=== PATIENT | female | born 1945 | race Caucasian/White ===

== ENCOUNTER → 2016-10-20 | Outpatient (CLI) | payer MEDICARE, BC ==
--- NOTE | 2016-10-21 08:08 | MM ---
Reason for exam: screening (asymptomatic). Last mammogram was performed 1 year ago. History: Patient is postmenopausal and has history of endometrial cancer at age 42. Took estrogen for 19 years beginning at age 42. Physical Findings: A clinical breast exam by your physician is recommended on an annual basis and results should be correlated with mammographic findings. MG 3D Screening Mammo W/Cad Bilateral CC and MLO view(s) were taken. Prior study comparison: October 16, 2015, bilateral MG screening mammo w CAD. September 03, 2014, bilateral MG screening mammo w CAD. The breast tissue is almost entirely fat. No significant changes when compared with prior studies. ASSESSMENT: Benign, BI-RAD 2 RECOMMENDATION: Routine screening mammogram of both breasts in 1 year.
== END | disposition home or self-care (01) ==
LOC: RADMAMWWP 08:37
PROVIDERS: ATTEND Family Medicine
DX: Z12.31 Encounter for screening mammogram for malignant neoplasm of breast (principal)
CPT/HCPCS: 77063; G0202

== ENCOUNTER → 2016-10-20 | Outpatient (CLI) | payer MEDICARE, BC | END | disposition home or self-care (01) | LOC: LABWHC1 07:48 | PROVIDERS: ATTEND Internal Medicine | DX: E11.49 Type 2 diabetes mellitus with other diabetic neurological complication (principal) | CPT/HCPCS: 82043 ==

== ENCOUNTER → 2016-10-21 | Outpatient (CLI) | payer MEDICARE, BC ==
[2016-10-21 09:44] LABS: CH 25.4; HCT 36.6 % (34.0-46.0); HDW 2.76; Hypochromasia Marked; MCH 25.6 pg (25.0-35.0); MCHC 30.1 g/dL (31.0-37.0); Mean Platelet Volume 6.7; RDW 13.7 % (11.5-15.5)
[2016-10-21 09:45] LABS: Calcium 9.2 mg/dL (8.4-10.2); Potassium 4.3 mmol/L (3.5-5.1); Total Bilirubin 0.4 mg/dL (0.2-1.3); Total Protein 6.9 g/dL (6.3-8.2)
[2016-10-21 10:13] LABS: Hemoglobin A1C 8.1 % (4.2-6.1)
== END | disposition home or self-care (01) ==
LOC: LABWHC1 08:48
PROVIDERS: ATTEND Internal Medicine
DX: I10 Essential (primary) hypertension (principal); E11.49 Type 2 diabetes mellitus with other diabetic neurological complication
CPT/HCPCS: 36415; 80053; 80061; 83036; 84439; 84443; 85027

== ENCOUNTER → 2017-05-19 | Outpatient (CLI) | payer MEDICARE, BC | END | disposition home or self-care (01) | LOC: RADUSWWP 10:07 | PROVIDERS: ATTEND Family Medicine | DX: I73.9 Peripheral vascular disease, unspecified (principal) | CPT/HCPCS: 93923 ==

== ENCOUNTER → 2017-06-20 | Outpatient (CLI) | payer MEDICARE, BC ==
--- NOTE | 2017-06-20 15:24 | XR ---
EXAMINATION TYPE: XR finger LT DATE OF EXAM: 06/20/2017 COMPARISON: NONE HISTORY: Swelling and edema TECHNIQUE: Three views left fourth finger are submitted. FINDINGS: Marked narrowing of the PIP joint. No definite acute fracture. No erosive change. There is soft tissu e edema around the PIP joint. Narrowing of the MCP joints seen. IMPRESSION: 1. Soft tissue edema and marked narrowing of the PIP joint fourth digit. No erosive change or acute f racture. Correlate for arthropathy including inflammatory or infectious arthropathy
== END | disposition home or self-care (01) ==
LOC: RADXRMAIN 14:26
PROVIDERS: ATTEND Family Medicine
DX: M25.842 Other specified joint disorders, left hand (principal); M79.89 Other specified soft tissue disorders; R60.9 Edema, unspecified

== ENCOUNTER 2017-09-30 09:56 | Emergency (ER) | payer BC, MEDICARE ==
[2017-09-30] MEDS ORDERED: LORATADINE-PSEUDOEPH 5-120 MG 1 EACH TAB.ER.12H PO STA (10:49)
--- NOTE | 2017-09-30 11:28 | XR ---
EXAMINATION TYPE: XR chest 2V DATE OF EXAM: 09/30/2017 COMPARISON: Prior chest x-ray November 16, 2011 HISTORY: Congestion for one month per patient. Chest pain. TECHNIQUE: Frontal and lateral views of the chest are obtained. FINDINGS: Poor inspiration is seen on current study.There is no focal air space opacity, pleural effu darlene, or pneumothorax seen. The cardiac silhouette size is mildly enlarged currently. The osseous structures are intact. IMPRESSION: Poor inspiration and mild cardiomegaly without acute pulmonary process.
--- NOTE | 2017-09-30 11:41 | ED ---
General Adult HPI - General Chief complaint: Upper Respiratory Infection Stated complaint: Vomiting Time Seen by Provider: 09/30/17 10:17 Source: patient, family, RN notes reviewed, old records reviewed Mode of arrival: wheelchair Limitations: no limitations - History of Present Illness Initial comments: This is a 72-year-old female the ER for evaluation. Patient coming in for sinus congestion drainage and headache. Patient has no other medical history. States that she cannot breathe through her nose and is been this way for about 4 weeks. Patient denies cough or congestion no pain. Patient's no modifying factors for pain she has been on Augmentin and azithromycin for this infection with improvement but no resolution. Patient denies any other significant complaints patient denies shortness of breath or chest pain - Related Data Home Medications Medication Instructions Recorded Confirmed Aspirin 81 mg PO DAILY 07/18/14 09/30/17 Atenolol [Atenolol] 100 mg PO BID 07/18/14 09/30/17 Lisinopril/Hydrochlorothiazide 1.5 tab PO BID 07/18/14 09/30/17 [Lisinopril-Hctz 20-12.5 mg Tab] Simvastatin [Zocor] 20 mg PO HS 07/18/14 09/30/17 glipiZIDE [Glipizide] 10 mg PO BID 07/18/14 09/30/17 Carbidopa-Levodopa 25-100 mg 1 tab PO TID 09/30/17 09/30/17 [Sinemet 25-100] Furosemide [Lasix] 20 mg PO DAILY PRN 09/30/17 09/30/17 Insulin Glargine,Hum.rec.anlog 14 unit SQ BID 09/30/17 09/30/17 [Lantus Solostar] Olmesartan [Benicar] 20 mg PO DAILY 09/30/17 09/30/17 Oxybutynin Chloride 5 mg PO DAILY PRN 09/30/17 09/30/17 Potassium Chloride [Klor-Con M15] 15 meq PO TID 09/30/17 09/30/17 metFORMIN HCL [Glucophage] 850 mg PO BID 09/30/17 09/30/17 Previous Rx's Medication Instructions Recorded Cetirizine HCl/Pseudoephedrine 1 each PO BID #10 tab.er.12h 09/30/17 [Zyrtec-D Tablet] Fluticasone Propionate [Flonase 1 spray EA NOSTRIL TID #1 bottle 09/30/17 Allergy Relief] Levofloxacin [Levaquin] 500 mg PO DAILY #7 tab 09/30/17 Allergies Allergy/AdvReac Type Severity Reaction Status Date / Time gabapentin Allergy Hallucinati Verified 09/30/17 10:44 ons Review of Systems ROS Statement: Those systems with pertinent positive or pertinent negative responses have been documented in the HPI. ROS Other: All systems not noted in ROS Statement are negative. Past Medical History Past Medical History: Heart Failure, Diabetes Mellitus, Hyperlipidemia, Hypertension, Rheumatoid Arthritis (RA) Additional Past Medical History / Comment(s): tremors History of Any Multi-Drug Resistant Organisms: None Reported Past Surgical History: Appendectomy, Tonsillectomy Past Psychological History: No Psychological Hx Reported Smoking Status: Never smoker Past Alcohol Use History: None Reported Past Drug Use History: None Reported General Exam Limitations: no limitations General appearance: alert, in no apparent distress Head exam: Present: atraumatic, normocephalic, normal inspection Eye exam: Present: normal appearance, PERRL, EOMI. Absent: scleral icterus, conjunctival injection, periorbital swelling ENT exam: Present: normal exam, mucous membranes moist Neck exam: Present: normal inspection. Absent: tenderness, meningismus, lymphadenopathy Respiratory exam: Present: normal lung sounds bilaterally. Absent: respiratory distress, wheezes, rales, rhonchi, stridor Cardiovascular Exam: Present: regular rate, normal rhythm, normal heart sounds. Absent: systolic murmur, diastolic murmur, rubs, gallop, clicks GI/Abdominal exam: Present: soft, normal bowel sounds. Absent: distended, tenderness, guarding, rebound, rigid Extremities exam: Present: normal inspection, full ROM, normal capillary refill. Absent: tenderness, pedal edema, joint swelling, calf tenderness Back exam: Present: normal inspection Neurological exam: Present: alert, oriented X3, CN II-XII intact Psychiatric exam: Present: normal affect, normal mood Skin exam: Present: warm, dry, intact, normal color. Absent: rash Course Vital Signs 09/30/17 10:03 Temperature 99.2 F Pulse Rate 76 Respiratory 18 Rate Blood Pressure 173/86 O2 Sat by Pulse 96 Oximetry - Reevaluation(s) Reevaluation #1: 09/30/17 11:40 Patient patient is in no acute distress Medical Decision Making - Medical Decision Making 72 female the ER for evaluation of sinusitis upper respiratory infection. Patient be discharged home WITH family doctor 2 days. - Radiology Data Radiology results: report reviewed (Chest x-rays negative for acute disease), image reviewed Disposition Clinical Impression: Sinusitis, Upper respiratory infection Disposition: HOME SELF-CARE Condition: Good Instructions: Rhinosinusitis (ED), Sinusitis (ED) Prescriptions: Cetirizine HCl/Pseudoephedrine [Zyrtec-D Tablet] 1 each PO BID #10 tab.er.12h Fluticasone Propionate [Flonase Allergy Relief] 1 spray EA NOSTRIL TID #1 bottle Levofloxacin [Levaquin] 500 mg PO DAILY #7 tab Referrals: Alberto Lehman DO [Primary Care Provider] - 1-2 days
[2017-09-30 11:47] VITALS: BP 157/79; PULSE 75; RESP 14; TEMP 99.3
== END 2017-09-30 11:44 | disposition home or self-care (01) ==
LOC: EC 09:56
DX: J32.9 Chronic sinusitis, unspecified (principal); J06.9 Acute upper respiratory infection, unspecified; I11.0 Hypertensive heart disease with heart failure; I50.9 Heart failure, unspecified; E11.9 Type 2 diabetes mellitus without complications; E78.5 Hyperlipidemia, unspecified; Z79.4 Long term (current) use of insulin; Z79.82 Long term (current) use of aspirin; Z79.899 Other long term (current) drug therapy; Z88.8 Allergy status to other drugs, medicaments and biological substances
CPT/HCPCS: 71046; 99284

== ENCOUNTER → 2018-02-07 | Outpatient (CLI) | payer MEDICARE ==
--- NOTE | 2018-02-08 08:49 | XR ---
EXAMINATION TYPE: XR abdomen 1V DATE OF EXAM: 02/07/2018 COMPARISON: NONE HISTORY: Abdominal pain TECHNIQUE: One view abdominal series FINDINGS: The osseous structures are intact. The bowel gas pattern is nonspecific. Lung bases are clear. Hype rtrophic and degenerative change of the spine. Motion artifact limits exam. Calcifications in the pel vis likely vascular. Severe arthropathy of the hips. Vascular calcification of the aorta. IMPRESSION: 1. Nonspecific abdomen.
== END | disposition home or self-care (01) ==
LOC: RADXRMAIN 15:53
PROVIDERS: ATTEND Family Medicine
DX: R10.9 Unspecified abdominal pain (principal)
CPT/HCPCS: 74018

== ENCOUNTER → 2018-02-16 | Outpatient (CLI) | payer MEDICARE ==
--- NOTE | 2018-02-16 09:43 | US ---
EXAMINATION TYPE: US gallbladder DATE OF EXAM: 02/16/2018 COMPARISON: Renal US CLINICAL HISTORY: R10.9 Abdominal pain. Patient not having pain now. EXAM MEASUREMENTS: Liver Length: 14.2 cm Gallbladder Wall: 0.2 cm CBD: 0.5 cm Right Kidney: 12.5 x 4.5 x 5.6 cm Pancreas: Heterogeneous Liver: attenuated posteriorly and mostly scanned intercostally due to overlying bowel gas Gallbladder: wnl Evidence for sonographic Nolasco's sign: no CBD: wnl Right Kidney: multiple hyperechoic foci (small calcifications)scattered throughout with others as pa rallel hyperechoic lines suggesting vessel wall calcification and larger hyperechoic focus is noted o n images# 56 and 57 with size = 0.5 x 0.5 x 0.3cm. Visualized pancreas shows no worrisome mass or ductal dilatation. Visualized liver is heterogeneously hyperechoic. No suspicious intrahepatic ductal dilatation is seen. Right kidney shows increased arthur ical echogenicity. IMPRESSION: No shadowing mobile gallstones or ultrasound evidence for acute cholecystitis. Probable f atty infiltration of liver. Suspect central vascular calcification at level of right kidney.
== END | disposition home or self-care (01) ==
LOC: RADUSWWP 08:28
PROVIDERS: ATTEND Family Medicine
DX: R10.9 Unspecified abdominal pain (principal)
CPT/HCPCS: 76705

== ENCOUNTER → 2018-03-31 | Outpatient (CLI) | payer MEDICARE ==
--- NOTE | 2018-03-31 09:32 | NM ---
Nuclear medicine hepatobiliary scan. HISTORY: Pain. DOSAGE: The patient received 8 ounces of ensure plus and 5.4 mCi of Technetium 99m Choletec. FINDINGS: There is normal hepatic extraction. The gallbladder is seen by 20 minutes. There is bilia ry to bowel clearance is not seen at 60 minutes. Ejection fraction is 91%. IMPRESSION: 1. Ejection fraction of 91% can occasionally be associated with hyperdynamic gallbladder. Correlate c linically.
== END | disposition home or self-care (01) ==
LOC: RADNMMAIN 06:28
PROVIDERS: ATTEND Family Medicine
DX: R10.9 Unspecified abdominal pain (principal)
CPT/HCPCS: 78226; A9537

== ENCOUNTER → 2018-05-01 | Outpatient (CLI) | payer MEDICARE ==
[2018-05-01 19:29] LABS: Iron Saturation 5.59 (12.00-45.00)
[2018-05-03 06:11] LABS: Vitamin E (Alpha Tocopherol) 973 ug/dL (500-1800)
[2018-05-03 08:31] LABS: Ceruloplasmin 24.6 mg/dL (20.0-60.0)
== END | disposition home or self-care (01) ==
LOC: LABWHC1 15:29
PROVIDERS: ATTEND Psychiatry & Neurology Neurology
DX: D64.9 Anemia, unspecified (principal); M62.81 Muscle weakness (generalized); R27.0 Ataxia, unspecified; R25.1 Tremor, unspecified
CPT/HCPCS: 36415; 82390; 82525; 82550; 82728; 83540; 83550; 84446

== ENCOUNTER → 2018-05-17 | Outpatient (CLI) | payer MEDICARE ==
--- NOTE | 2018-05-17 14:54 | MR ---
EXAMINATION TYPE: MR cervical spine wo con DATE OF EXAM: 05/17/2018 COMPARISON: HISTORY: M47.81 Myelopathy / Worsening Imbalance TECHNIQUE: Multiplanar, multisequence images of the cervical spine were acquired. C2-C3: No evidence for degenerative disc disease. No disc bulge/herniation or protrusion. No Canal stenosis. Foramina are patent bilaterally. C3-C4: There is a small posterior central disc herniation contacting the anterior cervical cord, ther e is mild to moderate central canal stenosis. Lateral extension of endplate disc complex encroaches s omewhat on the neural foramina. C4-C5: Posterior disc herniation contacts the anterior cervical cord, there is mild central canal cha nosis, lateral extension endplate disc complex results in bilateral foraminal encroachment. C5-C6: Posterior extension endplate disc complex is present, only mild central canal stenosis. Latera l extension of endplate disc complex encroaches mildly on the foramina. C6-C7: Central posterior disc herniation likely contacts the anterior cervical cord, there is moderat e central canal stenosis, difficult to exclude signal cord change. No significant foraminal encroachm ent. C7-T1: No evidence for degenerative disc disease. No disc bulge/herniation or protrusion. No Canal stenosis. Foramina are patent bilaterally. Cervical segments are intact. There is normal alignment. Craniovertebral junction relationships a re within normal limits. There is multilevel spondylosis, minimal endplate discogenic marrow signal changes are present, loss of disc height signal is greatest at C5-6, C6-7. T2 hyperintense focus invo lving the right thyroid lobe may represent thyroid nodule, colloid cyst. Arthropathy IMPRESSION: Spinal stenosis appears most significant at C6-7 due to posterior disc herniation. There is multileve l degenerative disc disease as described. Difficult to exclude signal cord change especially at C6-7. Additional findings above.
== END | disposition home or self-care (01) ==
LOC: RADMRIMAIN 12:06
PROVIDERS: ATTEND Psychiatry & Neurology Neurology
DX: M48.02 Spinal stenosis, cervical region (principal); M50.223 Other cervical disc displacement at C6-C7 level; M50.31 Other cervical disc degeneration, high cervical region
CPT/HCPCS: 72141

== ENCOUNTER 2018-06-08 09:26 | Inpatient (IN) | payer MEDICARE ==
[2018-06-08] MEDS ORDERED: SODIUM CHLORIDE 0.9% 1,000 ML IV STA (09:32)
[2018-06-08] MEDS ORDERED: SODIUM CHLORIDE 0.9% 500 ML 500 ML IV STA (09:32)
--- NOTE | 2018-06-08 09:39 | ED ---
Altered Mental Status HPI - General Stated Complaint: Altered mental status Time Seen by Provider: 06/08/18 09:26 Source: patient, EMS, RN notes reviewed Mode of arrival: EMS - History of Present Illness Initial Comments: This is a 72-year-old female was brought in by EMS because of frequent falls recently as well as change in mental status. Per paramedics she was only awake alert oriented 1 she fell last night fell again this morning she complains some right knee pain no reports of fevers chills or sweats apparently she did have a recent urinary tract infection. She denies any head neck or back pain at this time she was brought in with a cervical collar in place due to questionable mechanism. MD Complaint: altered mental status, decreased responsiveness - Related Data Home Medications Medication Instructions Recorded Confirmed Aspirin 81 mg PO DAILY 07/18/14 06/08/18 Atenolol 100 mg PO BID 07/18/14 06/08/18 Simvastatin [Zocor] 20 mg PO HS 07/18/14 06/08/18 glipiZIDE [Glipizide] 10 mg PO BID 07/18/14 06/08/18 Carbidopa-Levodopa 25-100 mg 1 tab PO TID 09/30/17 06/08/18 [Sinemet 25-100 mg] Furosemide [Lasix] 20 mg PO DAILY PRN 09/30/17 06/08/18 Insulin Glargine,Hum.rec.anlog 14 unit SQ BID 09/30/17 06/08/18 [Lantus Solostar] Oxybutynin Chloride 5 mg PO DAILY PRN 09/30/17 06/08/18 metFORMIN HCL [Glucophage] 850 mg PO BID 09/30/17 06/08/18 Amantadine HCl [Symmetrel] 100 mg PO BID 06/08/18 06/08/18 Ketorolac 0.5% Ophth Soln [Acular] 1 drops BOTH EYES TID 06/08/18 06/08/18 Olmesartan/Hydrochlorothiazide 1 tab PO DAILY 06/08/18 06/08/18 [Benicar Hct 40-25 mg Tablet] Pantoprazole [Protonix] 40 mg PO DAILY 06/08/18 06/08/18 Potassium Citrate [Urocit-K] 15 meq PO DAILY 06/08/18 06/08/18 Vitamin B-12 100mcg 100 mcg PO DAILY 06/08/18 06/08/18 Allergies Allergy/AdvReac Type Severity Reaction Status Date / Time gabapentin Allergy Hallucinati Verified 06/08/18 10:00 ons Review of Systems ROS Statement: Those systems with pertinent positive or pertinent negative responses have been documented in the HPI. ROS Other: All systems not noted in ROS Statement are negative. Limitations: ROS unobtainable due to patients medical condition Past Medical History Past Medical History: Heart Failure, Diabetes Mellitus, Hyperlipidemia, Hypertension, Rheumatoid Arthritis (RA) Additional Past Medical History / Comment(s): tremors, renal lithiasis, hemorrhoids History of Any Multi-Drug Resistant Organisms: ESBL Date of last positivie culture/infection: 05/11/18 MDRO Source:: ESBL URINE Past Surgical History: Appendectomy, Hysterectomy, Orthopedic Surgery, Tonsillectomy Additional Past Surgical History / Comment(s): Rt TKR Past Anesthesia/Blood Transfusion Reactions: No Reported Reaction Past Psychological History: No Psychological Hx Reported Smoking Status: Never smoker Past Alcohol Use History: None Reported Past Drug Use History: None Reported - Past Family History Mother Family Medical History: Diabetes Mellitus General Exam - General Exam Comments Initial Comments: This is a well-developed well-nourished awake alert somewhat confused female Limitations: altered mental status General appearance: alert, in no apparent distress Head exam: Present: atraumatic, normocephalic, normal inspection Eye exam: Present: normal appearance, PERRL, EOMI. Absent: scleral icterus, conjunctival injection, periorbital swelling ENT exam: Present: mucous membranes dry Neck exam: Present: normal inspection, full ROM, other (I did remove the cervical collar after clinical examination). Absent: tenderness, meningismus, lymphadenopathy Respiratory exam: Present: normal lung sounds bilaterally. Absent: respiratory distress, wheezes, rales, rhonchi, stridor Cardiovascular Exam: Present: regular rate, normal rhythm, normal heart sounds. Absent: systolic murmur, diastolic murmur, rubs, gallop, clicks GI/Abdominal exam: Present: soft, normal bowel sounds. Absent: distended, tenderness, guarding, rebound, rigid Extremities exam: Present: normal inspection, full ROM, tenderness (Mild tenderness palpation of the right knee no step-off or crepitation no hip pain), normal capillary refill. Absent: pedal edema, joint swelling, calf tenderness Back exam: Present: normal inspection Neurological exam: Present: alert, altered, CN II-XII intact Psychiatric exam: Present: normal affect, normal mood Skin exam: Present: warm, dry, intact, normal color. Absent: rash Course Vital Signs 06/08/18 06/08/18 06/08/18 09:36 11:45 13:26 Temperature 98.3 F 98.0 F Pulse Rate 76 60 59 L Respiratory 18 Rate Blood Pressure 173/113 158/93 144/68 O2 Sat by Pulse 93 L 96 96 Oximetry - Reevaluation(s) Reevaluation #1: 06/08/18 13:10 The patient was on Bactrim. Medical Decision Making - Medical Decision Making I did discuss findings with the patient and family members as well as Dr. Jackson , patient will be admitted place on IV antibiotics and fluids and further evaluation performed - Lab Data Result diagrams: 06/08/18 10:30 06/08/18 10:30 Lab Results 06/08/18 06/08/18 06/08/18 Range/Units 10:00 10:30 10:30 WBC (3.8-10.6) k/uL RBC (3.80-5.40) m/uL Hgb (11.4-16.0) gm/dL Hct (34.0-46.0) % MCV (80.0-100.0) fL MCH (25.0-35.0) pg MCHC (31.0-37.0) g/dL RDW (11.5-15.5) % Plt Count (150-450) k/uL Neutrophils % % Lymphocytes % % Monocytes % % Eosinophils % % Basophils % % Neutrophils # (1.3-7.7) k/uL Lymphocytes # (1.0-4.8) k/uL Monocytes # (0-1.0) k/uL Eosinophils # (0-0.7) k/uL Basophils # (0-0.2) k/uL Hypochromasia Anisocytosis PT 10.0 (9.0-12.0) sec INR 1.0 (<1.2) APTT 22.5 (22.0-30.0) sec Sodium (137-145) mmol/L Potassium (3.5-5.1) mmol/L Chloride (98-107) mmol/L Carbon Dioxide (22-30) mmol/L Anion Gap mmol/L BUN (7-17) mg/dL Creatinine (0.52-1.04) mg/dL Est GFR (CKD-EPI)AfAm (>60 ml/min/1.73 sqM) Est GFR (CKD-EPI)NonAf (>60 ml/min/1.73 sqM) Glucose (74-99) mg/dL Calcium (8.4-10.2) mg/dL Magnesium (1.6-2.3) mg/dL Total Bilirubin (0.2-1.3) mg/dL AST (14-36) U/L ALT (9-52) U/L Alkaline Phosphatase (38-126) U/L Ammonia (<30) umol/L Total Creatine Kinase 564 H (30-135) U/L CK-MB (CK-2) 5.1 H (0.0-2.4) ng/mL CK-MB (CK-2) Rel Index 0.9 Troponin I 0.055 H* (0.000-0.034) ng/mL Total Protein (6.3-8.2) g/dL Albumin (3.5-5.0) g/dL Urine Color Yellow Urine Appearance Clear (Clear) Urine pH 7.0 (5.0-8.0) Ur Specific Rienzi 1.014 (1.001-1.035) Urine Protein Trace H (Negative) Urine Glucose (UA) Negative (Negative) Urine Ketones Negative (Negative) Urine Blood Negative (Negative) Urine Nitrite Negative (Negative) Urine Bilirubin Negative (Negative) Urine Urobilinogen <2.0 (<2.0) mg/dL Ur Leukocyte Esterase Moderate H (Negative) Urine RBC 1 (0-5) /hpf Urine WBC 14 H (0-5) /hpf Ur Squamous Epith Cells 1 (0-4) /hpf Hyaline Casts 3 H (0-2) /lpf Urine Mucus Rare H (None) /hpf 06/08/18 06/08/18 06/08/18 Range/Units 10:30 10:30 11:58 WBC 11.2 H (3.8-10.6) k/uL RBC 4.56 (3.80-5.40) m/uL Hgb 11.1 L (11.4-16.0) gm/dL Hct 37.7 (34.0-46.0) % MCV 82.6 (80.0-100.0) fL MCH 24.4 L (25.0-35.0) pg MCHC 29.5 L (31.0-37.0) g/dL RDW 16.3 H (11.5-15.5) % Plt Count 388 (150-450) k/uL Neutrophils % 78 % Lymphocytes % 12 % Monocytes % 7 % Eosinophils % 1 % Basophils % 0 % Neutrophils # 8.7 H (1.3-7.7) k/uL Lymphocytes # 1.3 (1.0-4.8) k/uL Monocytes # 0.8 (0-1.0) k/uL Eosinophils # 0.1 (0-0.7) k/uL Basophils # 0.0 (0-0.2) k/uL Hypochromasia Moderate Anisocytosis Slight PT (9.0-12.0) sec INR (<1.2) APTT (22.0-30.0) sec Sodium 142 (137-145) mmol/L Potassium 4.4 (3.5-5.1) mmol/L Chloride 104 (98-107) mmol/L Carbon Dioxide 24 (22-30) mmol/L Anion Gap 14 mmol/L BUN 30 H (7-17) mg/dL Creatinine 2.00 H (0.52-1.04) mg/dL Est GFR (CKD-EPI)AfAm 29 (>60 ml/min/1.73 sqM) Est GFR (CKD-EPI)NonAf 25 (>60 ml/min/1.73 sqM) Glucose 129 H (74-99) mg/dL Calcium 9.5 (8.4-10.2) mg/dL Magnesium 2.2 (1.6-2.3) mg/dL Total Bilirubin 0.7 (0.2-1.3) mg/dL AST 42 H (14-36) U/L ALT 21 (9-52) U/L Alkaline Phosphatase 60 (38-126) U/L Ammonia <9 (<30) umol/L Total Creatine Kinase (30-135) U/L CK-MB (CK-2) (0.0-2.4) ng/mL CK-MB (CK-2) Rel Index Troponin I (0.000-0.034) ng/mL Total Protein 7.2 (6.3-8.2) g/dL Albumin 3.9 (3.5-5.0) g/dL Urine Color Urine Appearance (Clear) Urine pH (5.0-8.0) Ur Specific Rienzi (1.001-1.035) Urine Protein (Negative) Urine Glucose (UA) (Negative) Urine Ketones (Negative) Urine Blood (Negative) Urine Nitrite (Negative) Urine Bilirubin (Negative) Urine Urobilinogen (<2.0) mg/dL Ur Leukocyte Esterase (Negative) Urine RBC (0-5) /hpf Urine WBC (0-5) /hpf Ur Squamous Epith Cells (0-4) /hpf Hyaline Casts (0-2) /lpf Urine Mucus (None) /hpf - EKG Data -: EKG Interpreted by Me EKG shows normal: sinus rhythm (Sinus rhythm of 61 appear interval 158 QRS duration 84 QT since QTC 4:30/[address] configuration) - Radiology Data Radiology results: report reviewed (I did review the imaging and report no acute findings seen on CAT scan x-ray shows evidence of reactive airway disease no definite focal infiltrates), image reviewed Disposition Clinical Impression: Delirium due to general medical condition, Dehydration, Renal insufficiency syndrome, Failure of outpatient treatment, Urinary tract infection, Elevated troponin Disposition: ADMITTED IP TO THIS HOSP Condition: Stable Referrals: Alberto Lehman DO [Primary Care Provider] - 1-2 days
[2018-06-08 11:03] LABS: Anisocytosis Slight; Basophils % (A) 0 %; Eosinophils # (A) 0.1 k/uL (0-0.7); Eosinophils % (A) 1 %; HCT 37.7 % (34.0-46.0); HGB 11.1 gm/dL (11.4-16.0); Hypochromasia Moderate; Lymphocytes # (A) 1.3 k/uL (1.0-4.8); Lymphocytes % (A) 12 %; MCH 24.4 pg (25.0-35.0); MCHC 29.5 g/dL (31.0-37.0); MCV 82.6 fL (80.0-100.0); Mean Platelet Volume 6.7; Monocytes # (A) 0.8 k/uL (0-1.0); Monocytes % (A) 7 %; Neutrophils # (A) 8.7 k/uL (1.3-7.7); Neutrophils % (A) 78 %; Platelet Count 388 k/uL (150-450); RBC 4.56 m/uL (3.80-5.40); RDW 16.3 % (11.5-15.5); WBC 11.2 k/uL (3.8-10.6)
[2018-06-08 11:14] LABS: Partial Thromboplastin Time 22.5 sec (22.0-30.0)
[2018-06-08 11:16] LABS: Appearance,Urine Clear (Clear); Bilirubin,Urine Negative (Negative); Blood,Urine Negative (Negative); Color,Urine Yellow; Glucose,Urine (UA) Negative (Negative); Hyaline Casts,Urine 3 /lpf (0-2); Ketones,Urine Negative (Negative); Leukocyte Esterase,Urine Moderate (Negative); Mucus,Urine Rare /hpf; Nitrite,Urine Negative (Negative); Protein,Urine Trace (Negative); RBC,Urine 1 /hpf (0-5); Specific Gravity,Urine 1.014 (1.001-1.035); Squamous Epithelial Cell,Urine 1 /hpf (0-4); Urobilinogen,Urine <2.0 mg/dL (<2.0); WBC,Urine 14 /hpf (0-5)
[2018-06-08 11:18] LABS: Albumin 3.9 g/dL (3.5-5.0); Calcium 9.5 mg/dL (8.4-10.2); Magnesium 2.2 mg/dL (1.6-2.3); Potassium 4.4 mmol/L (3.5-5.1); Total Bilirubin 0.7 mg/dL (0.2-1.3); Total Protein 7.2 g/dL (6.3-8.2)
[2018-06-08 11:34] LABS: Creatine Kinase MB 5.1 ng/mL (0.0-2.4)
--- NOTE | 2018-06-08 11:40 | CT ---
EXAMINATION TYPE: CT brain wo con DATE OF EXAM: 06/08/2018 COMPARISON: Prior CT brain 10/01/2017 HISTORY: hypertension, AMS CT DLP: 1022.80 mGycm Automated exposure control for dose reduction was used. Helical acquisition through the brain. FINDINGS: Cerebral vascular calcifications are present. Artifact due to dental amalgam may obscure detail. Ther e is no evident hemorrhage or hydrocephalus. Calvarium is intact. Paranasal sinuses and mastoid air c ells as visualized are well aerated. Cortical atrophy is likely age-related. Periventricular white ma tter shows patchy low attenuation similar to prior exam. IMPRESSION: NO ACUTE ABNORMALITY. AGE-RELATED ATROPHY AND CHRONIC SMALL VESSEL ISCHEMIA.
[2018-06-08 11:52] LABS: Troponin I 0.055 ng/mL (0.000-0.034)
--- NOTE | 2018-06-08 11:53 | XR ---
EXAMINATION TYPE: XR chest 2V DATE OF EXAM: 06/08/2018 COMPARISON: Prior chest x-ray 10/01/2017 HISTORY: Cough TECHNIQUE: Frontal and lateral views of the chest are obtained. FINDINGS: The patient is rotated. There is no focal air space opacity, pleural effusion, or pneumotho rax seen. Right hemidiaphragm again is elevated. Lung volumes are low. There are overlying cardiac l buddy. The cardiac silhouette size is stable. There is bronchial wall thickening. The osseous struct ures are intact. IMPRESSION: Expiratory rotated exam. Correlate for bronchitis, reactive airways disease, follow-up a s indicated.
--- NOTE | 2018-06-08 11:55 | XR ---
Right knee HISTORY: Trauma and pain 3 views of the right knee, no comparisons Ossific density at the medial femoral condyle is well-corticated and not felt likely to be acute, fin dings could be due to Jessica-Stieda disease. Patient is status post right knee arthroplasty and t here is anatomic alignment. Bone mineralization is reduced. There is soft tissue swelling present. Ca lcifications are present in the suprapatellar location and are indeterminate. There are vascular calc ifications noted. IMPRESSION: No acute abnormalities evident. Additional findings above, there may be loose bodies, syn ovial osteochondromatosis. Osteopenia.
[2018-06-08] MEDS ORDERED: NALOXONE 0.4 MG/ML 1 ML VIAL IV PRN (13:33)
[2018-06-08] MEDS ORDERED: ACETAMINOPHEN TAB 325 MG TAB PO PRN (13:33)
[2018-06-08] MEDS ORDERED: OXYBUTYNIN CHLORIDE 5 MG TAB PO PRN (13:36)
[2018-06-08] MEDS ORDERED: FUROSEMIDE 20 MG TAB PO PRN (13:36)
[2018-06-08] MEDS ORDERED: CARBIDOPA-LEVODOPA 25-100 MG 1 EACH TAB PO SCH (16:00)
[2018-06-08 17:02] LABS: Glucose,Whole Blood 96 mg/dL (75-99)
[2018-06-08] MEDS ORDERED: metFORMIN 850 MG TAB PO SCH (17:30)
[2018-06-08] MEDS: glipiZIDE 10 MG TAB PO SCH (17:41)
[2018-06-08] MEDS: KETOROLAC 0.5% OPHTH DROPS 5 ML BTL BOTH EYES SCH ×3 (17:41→20:27)
[2018-06-08] MEDS: SODIUM CHLORIDE 0.9% 1,000 ML IV SCH (17:42)
--- NOTE | 2018-06-08 19:20 | US ---
EXAMINATION TYPE: US venous doppler duplex LE RT DATE OF EXAM: 06/08/2018 7:07 PM COMPARISON: NONE CLINICAL HISTORY: right calf pain after fall today. SIDE PERFORMED: Right TECHNIQUE: The lower extremity deep venous system is examined utilizing real time linear array sonog ynes with graded compression, doppler sonography and color-flow sonography. VESSELS IMAGED: External Iliac Vein (EIV) Common Femoral Vein Deep Femoral Vein Greater Saphenous Vein * Femoral Vein Popliteal Vein Small Saphenous Vein * Proximal Calf Veins (* superficial vessels) Right Leg: Negative for DVT IMPRESSION: No evidence of deep venous thrombosis in the right leg.
[2018-06-08] MEDS: ATORVASTATIN 10 MG TAB PO SCH (20:27)
[2018-06-08] MEDS: ATENOLOL 50 MG TAB PO SCH (20:28)
[2018-06-08] MEDS: CARBIDOPA-LEVODOPA 25-100 MG 1 EACH TAB PO SCH (20:28)
--- NOTE | 2018-06-08 20:50 | P.HPIM ---
History of Present Illness H&P Date: 06/08/18 72s years old female with past medical history of diabetes type 2, hyperlipidemia, hypertension, history of Parkinson syndrome, ESBL UTI, Rheumatoid arthritis, history of congestive heart failure, nephrolithiasis presents with change in mental status, worsening confusion and visual hallucinations associated with multiple episodes of fall in the past 1 week. According to the patient who is at bedside patient has been acting weird had multiple falls at home has been under care of Dr. Jimenez for Parkinson disease and degenerative disease of the neck for which they have to see Dr. Merrill. Patient was unable to provide any history. For the past 1 month patient is being treated for UTI by Dr. Lehman as outpatient followed by treatment at urgent care 1 week ago patient has just picked up the prescription on Tuesday for Bactrim and has not completed her UTI medications. On evaluation in the ER, patient has a temp of 98.3, pulse rate 60 blood pressure 172/73. Labs suggest a leukocytosis of 11.2, hemoglobin 11.1 platelet 388, BUN 30 creatinine 2 which is patient's baseline glucose of 129 CK level of 564 troponin 0.55, urinalysis was done which suggested WBC of 14 positive for leukocyte Estrace negative for nitrates. Patient initiated on ceftriaxone in the ER and urine cultures ordered. Neurology consulted for altered mental status and worsening hallucinations on Parkinson dedication. Amantadine discontinued and patient's levodopa reduced to twice a day Review of Systems Constitutional: Reports fatigue, Reports lethargy, Reports malaise, Reports poor appetite, Reports weakness, Denies anorexia, Denies chills, Denies chronic headaches, Denies chronic pain, Denies daytime sleepiness, Denies fever, Denies night sweats Eyes: bilateral blurred vision, bilateral decreased vision, bilateral loss of vision, denies bulging eye, denies diplopia, denies dry eye, denies itching, denies photophobia, denies loss of peripheral vision Ears: deny: decreased hearing Ears, nose, mouth and throat: Denies ant. neck pain, Denies dental pain, Denies dysphagia, Denies epistaxis, Denies headache, Denies hoarseness, Denies mouth pain, Denies nasal congestion, Denies neck fullness/pressure, Denies neck lump, Denies odynophagia Cardiovascular: Denies chest pain, Denies claudication, Denies decreased exercise tolerance, Denies dyspnea on exertion, Denies edema, Denies high blood pressure, Denies irregular heart beat, Denies leg edema, Denies lightheadedness , Denies orthopnea, Denies palpitations Respiratory: Denies congestion, Denies cough, Denies cough with sputum, Denies dyspnea, Denies excessive sputum, Denies hemoptysis, Denies home oxygen, Denies pain Gastrointestinal: Denies abdominal pain, Denies belching, Denies bloating, Denies BRBPR, Denies change in bowel habits, Denies coffee ground emesis Genitourinary: Reports urgency, Denies hematuria, Denies urinary frequency Musculoskeletal: Reports frequent falls, Reports gait dysfunction, Reports low back pain, Reports muscle weakness, Denies arm numbness/tingling, Denies leg numbness/tingling, Denies neck pain, Denies neck stiffness, Denies redness of joints Musculoskeletal: right: ankle pain, foot pain, knee pain, knee stiffness, absent : hip pain, hip stiffness, knee swelling, shoulder pain Integumentary: Denies color changes, Denies darkening of skin, Denies lesions, Denies onychomycosis, Denies sores, Denies striae, Denies unusual bruising Neurological: Reports balance difficulties, Reports change in mentation, Reports confusion, Reports gait dysfunction, Reports weakness, Denies ataxia, Denies change in speech, Denies headaches, Denies loss of vision, Denies memory loss, Denies motor disturbance, Denies numbness, Denies tremors, Denies vertigo Psychiatric: Reports confusion, Reports hallucinations, Denies anxiety, Denies change in appetite, Denies change in libido, Denies change in sleep habits, Denies insomnia, Denies irritability, Denies paranoia, Denies sadness/ tearfulness, Denies sleep disturbances Endocrine: Denies cold intolerance, Denies deepening of the voice, Denies nocturia, Denies polyuria Hematologic/Lymphatic: Denies easy bruising, Denies lymphadenopathy Past Medical History Past Medical History: Heart Failure, Diabetes Mellitus, Hyperlipidemia, Hypertension, Pneumonia, Rheumatoid Arthritis (RA) Additional Past Medical History / Comment(s): tremors, renal lithiasis, hemorrhoids(sx done), "has had problems w/low magnesium.anemia. per posue pt had past cancer "uterine or cervical-had hysterectomy". it was previously charted that pt had hx of ra and cfh spouse not able to verify this History of Any Multi-Drug Resistant Organisms: ESBL Date of last positivie culture/infection: 05/11/18 MDRO Source:: ESBL URINE Past Surgical History: Appendectomy, Hysterectomy, Orthopedic Surgery, Tonsillectomy Additional Past Surgical History / Comment(s): rt total knee repalcement, cataracts, hemmorroidectomy, colonoscopy Past Anesthesia/Blood Transfusion Reactions: No Reported Reaction Additional Past Anesthesia/Blood Transfusion Reaction / Comment(s): per psouse- pt never receieved any blood Smoking Status: Never smoker - Past Family History Mother Family Medical History: Diabetes Mellitus Father Additional Family Medical History / Comment(s): brain anuerysm Medications and Allergies Home Medications Medication Instructions Recorded Confirmed Type Aspirin 81 mg PO DAILY 07/18/14 06/08/18 History Atenolol 100 mg PO BID 07/18/14 06/08/18 History Simvastatin [Zocor] 20 mg PO HS 07/18/14 06/08/18 History glipiZIDE [Glipizide] 10 mg PO BID 07/18/14 06/08/18 History Carbidopa-Levodopa 25-100 mg 1 tab PO TID 09/30/17 06/08/18 History [Sinemet 25-100 mg] Furosemide [Lasix] 20 mg PO DAILY PRN 09/30/17 06/08/18 History Insulin Glargine,Hum.rec.anlog 14 unit SQ BID 09/30/17 06/08/18 History [Lantus Solostar] Oxybutynin Chloride 5 mg PO DAILY PRN 09/30/17 06/08/18 History metFORMIN HCL [Glucophage] 850 mg PO BID 09/30/17 06/08/18 History Amantadine HCl [Symmetrel] 100 mg PO BID 06/08/18 06/08/18 History Ketorolac 0.5% Ophth Soln [Acular] 1 drops BOTH EYES TID 06/08/18 06/08/18 History Olmesartan/Hydrochlorothiazide 1 tab PO DAILY 06/08/18 06/08/18 History [Benicar Hct 40-25 mg Tablet] Pantoprazole [Protonix] 40 mg PO DAILY 06/08/18 06/08/18 History Potassium Citrate [Urocit-K] 15 meq PO DAILY 06/08/18 06/08/18 History Vitamin B-12 100mcg 100 mcg PO DAILY 06/08/18 06/08/18 History Allergies Allergy/AdvReac Type Severity Reaction Status Date / Time gabapentin Allergy Hallucinati Verified 06/08/18 10:00 ons Physical Exam Vitals: Vital Signs Temp Pulse Pulse Resp BP BP Pulse Ox 06/08/18 20:20 97.7 F 71 16 152/63 90 L 06/08/18 18:35 96.9 F L 63 20 157/71 95 06/08/18 16:12 98.3 F 63 18 166/68 96 06/08/18 14:11 97.3 F L 60 18 172/73 96 06/08/18 13:26 98.0 F 59 L 18 144/68 96 06/08/18 11:45 60 18 158/93 96 06/08/18 09:36 98.3 F 76 18 173/113 93 L Intake and Output 06/08/18 06/08/18 06/08/18 06:59 14:59 22:59 Intake Total 240 Balance 240 Intake: Oral 240 Other: Voiding Method Bedpan # Voids 0 # Bowel Movements 0 Weight 200 kg 200 kg - Constitutional General appearance: average body habitus, cooperative, no acute distress - EENT Eyes: EOMI, PERRLA, dentition normal Ears: bilateral: normal - Neck Neck: no lymphadenopathy, normal ROM, no rigidity Carotids: bilateral: upstroke normal Thyroid: bilateral: normal size - Respiratory Respiratory: bilateral: CTA, negative: diminished, dullness, rhonchi, wheezing - Cardiovascular Rhythm: regular Heart sounds: normal: S1, S2 Abnormal Heart Sounds: systolic murmur, no diastolic murmur, no rub, no S3 Gallop, no S4 Gallop leg Peripheral Edema: bilateral: 1+ dorsalis pedis Peripheral Pulses: bilateral: Normal - Gastrointestinal General gastrointestinal: no distended, no rigid, soft, no tenderness - Integumentary Integumentary: no calor - Neurologic Neurologic: CNII-XII intact - Musculoskeletal Musculoskeletal: generalized weakness, strength equal bilaterally (Awake but oriented 1) - Psychiatric Awake but oriented X1 unable to follow commands Results CBC & Chem 7: 06/08/18 10:30 06/08/18 10:30 Labs: Abnormal Lab Results - Last 24 Hours (Table) 06/08/18 06/08/18 06/08/18 Range/Units 10:00 10:30 10:30 WBC 11.2 H (3.8-10.6) k/uL Hgb 11.1 L (11.4-16.0) gm/dL MCH 24.4 L (25.0-35.0) pg MCHC 29.5 L (31.0-37.0) g/dL RDW 16.3 H (11.5-15.5) % Neutrophils # 8.7 H (1.3-7.7) k/uL BUN (7-17) mg/dL Creatinine (0.52-1.04) mg/dL Glucose (74-99) mg/dL AST (14-36) U/L Total Creatine Kinase 564 H (30-135) U/L CK-MB (CK-2) 5.1 H (0.0-2.4) ng/mL Troponin I 0.055 H* (0.000-0.034) ng/mL Urine Protein Trace H (Negative) Ur Leukocyte Esterase Moderate H (Negative) Urine WBC 14 H (0-5) /hpf Hyaline Casts 3 H (0-2) /lpf Urine Mucus Rare H (None) /hpf 06/08/18 Range/Units 10:30 WBC (3.8-10.6) k/uL Hgb (11.4-16.0) gm/dL MCH (25.0-35.0) pg MCHC (31.0-37.0) g/dL RDW (11.5-15.5) % Neutrophils # (1.3-7.7) k/uL BUN 30 H (7-17) mg/dL Creatinine 2.00 H (0.52-1.04) mg/dL Glucose 129 H (74-99) mg/dL AST 42 H (14-36) U/L Total Creatine Kinase (30-135) U/L CK-MB (CK-2) (0.0-2.4) ng/mL Troponin I (0.000-0.034) ng/mL Urine Protein (Negative) Ur Leukocyte Esterase (Negative) Urine WBC (0-5) /hpf Hyaline Casts (0-2) /lpf Urine Mucus (None) /hpf Thrombosis Risk Factor Assmnt - DVT/VTE Prophylaxis DVT/VTE Prophylaxis: Pharmacologic Prophylaxis ordered - Choose All That Apply Each Risk Factor Represents 2 Points: Age 61-74 years Thrombosis Risk Factor Assessment Total Risk Factor Score: 2 Thrombosis Risk Factor Assessment Level: Low Risk Assessment and Plan Plan: 1. Acute metabolic encephalopathy multifactorial likely secondary to eat urinary tract infection, other differential include side effect of Parkinson medication including amantadine due to its anticholinergic affect. Continue ceftriaxone 1 g daily. Urine culture pending. EKG ordered. Orthostatics ordered 2. Hallucinations likely secondary to the side effect of Parkinson medication. Holding amantadine decrease levodopa carbidopa 2 twice a day. Neurology consult placed #3 CK D creatinine at baseline no acute kidney injuries seen continue on IV hydration 75 mL an hour, baseline creatinine at 1.8-2 f #4 Rhabdomyolysis with elevated CK and CK-MB index likely secondary to multiple falls at home #5 Diabetes mellitus without any hypoglycemia, hemoglobin A1c will be obtained . Continue glipizide was stopped continue current dose of Lantus and lispro hold metformin #6 Iron deficiency anemia, 11.1 hemoglobin stable as compared to previous lap order iron studies #6 Secondary hyperparathyroidism most likely secondary to CK D this would be monitored as an outpatient #7DVT prophylaxis with heparin every 12 # 8 CODE STATUS full code patient need to be in the hospital for at least 2 inpatient nights
[2018-06-08] MEDS ORDERED: AMANTADINE HCL 100 MG CAP PO SCH (21:00)
[2018-06-08 21:10] LABS: Glucose,Whole Blood 179 mg/dL (75-99)
[2018-06-08] MEDS: INSULIN DETEMIR 100 UNIT/ML 10 ML VIAL SQ SCH (21:19)
[2018-06-08 21:48] LABS: Hemoglobin A1C 6.7 % (4.0-6.0)
--- NOTE | 2018-06-08 22:59 | P.CNNES ---
History of Present Illness Consult date: 06/08/18 History of Present Illness: The patient is a 72-year-old woman with history of current falls. She has been having some balance issues for a few years. She states she was recently diagnosed with Parkinson's disease. She is a patient of Dr. Jimenez she had a recent MRI of the cervical spine which revealed spinal stenosis as well as disc herniation. Resented to the emergency room with history of fall and pain to the right knee. Neurology is requested to see the patient regarding altered mental status. And is awake alert and shows no signs of delirium. She denied back pain. She denied neck pain. She has some right leg pain when she moves her leg. She states she's been taking medication for Parkinson's disease she is not sure if it is helping. Was admitted to the hospital with delirium, dehydration, renal insufficiency syndrome and UTI. He had a CAT scan of the brain which showed age-related changes apparently she's been treated for urinary tract infection for the past 1 month. She states that she's had a deficiency of vitamin B12. Her total creatinine kinase was elevated on admission at 564. He was admitted to the hospital with metabolic encephalopathy and UTI, rhabdomyolysis and iron deficiency anemia. Review of Systems Constitutional: Denies chills, Denies fever Ears, nose, mouth and throat: Denies headache, Denies sore throat Cardiovascular: Denies chest pain, Denies shortness of breath Respiratory: Denies cough Gastrointestinal: Denies abdominal pain, Denies diarrhea, Denies nausea, Denies vomiting Genitourinary: Denies dysuria, Denies hematuria Musculoskeletal: Reports as per HPI Neurological: Denies numbness, Denies weakness Psychiatric: Denies anxiety, Denies depression Past Medical History Past Medical History: Heart Failure, Diabetes Mellitus, Hyperlipidemia, Hypertension, Pneumonia, Rheumatoid Arthritis (RA) Additional Past Medical History / Comment(s): tremors, renal lithiasis, hemorrhoids(sx done), "has had problems w/low magnesium.anemia. per posue pt had past cancer "uterine or cervical-had hysterectomy". it was previously charted that pt had hx of ra and cfh spouse not able to verify this History of Any Multi-Drug Resistant Organisms: ESBL Date of last positivie culture/infection: 05/11/18 MDRO Source:: ESBL URINE Past Surgical History: Appendectomy, Hysterectomy, Orthopedic Surgery, Tonsillectomy Additional Past Surgical History / Comment(s): rt total knee repalcement, cataracts, hemmorroidectomy, colonoscopy Past Anesthesia/Blood Transfusion Reactions: No Reported Reaction Additional Past Anesthesia/Blood Transfusion Reaction / Comment(s): per psouse- pt never receieved any blood Smoking Status: Never smoker - Past Family History Mother Family Medical History: Diabetes Mellitus Father Additional Family Medical History / Comment(s): brain anuerysm Medications and Allergies Home Medications Medication Instructions Recorded Confirmed Type Aspirin 81 mg PO DAILY 07/18/14 06/08/18 History Atenolol 100 mg PO BID 07/18/14 06/08/18 History Simvastatin [Zocor] 20 mg PO HS 07/18/14 06/08/18 History glipiZIDE [Glipizide] 10 mg PO BID 07/18/14 06/08/18 History Carbidopa-Levodopa 25-100 mg 1 tab PO TID 09/30/17 06/08/18 History [Sinemet 25-100 mg] Furosemide [Lasix] 20 mg PO DAILY PRN 09/30/17 06/08/18 History Insulin Glargine,Hum.rec.anlog 14 unit SQ BID 09/30/17 06/08/18 History [Lantus Solostar] Oxybutynin Chloride 5 mg PO DAILY PRN 09/30/17 06/08/18 History metFORMIN HCL [Glucophage] 850 mg PO BID 09/30/17 06/08/18 History Amantadine HCl [Symmetrel] 100 mg PO BID 06/08/18 06/08/18 History Ketorolac 0.5% Ophth Soln [Acular] 1 drops BOTH EYES TID 06/08/18 06/08/18 History Olmesartan/Hydrochlorothiazide 1 tab PO DAILY 06/08/18 06/08/18 History [Benicar Hct 40-25 mg Tablet] Pantoprazole [Protonix] 40 mg PO DAILY 06/08/18 06/08/18 History Potassium Citrate [Urocit-K] 15 meq PO DAILY 06/08/18 06/08/18 History Vitamin B-12 100mcg 100 mcg PO DAILY 06/08/18 06/08/18 History Allergies Allergy/AdvReac Type Severity Reaction Status Date / Time gabapentin Allergy Hallucinati Verified 10/04/18 10:00 ons Physical Examination - Vital Signs Vital Signs: Vital Signs Temp Pulse Pulse Resp BP BP Pulse Ox 06/08/18 20:20 97.7 F 71 16 152/63 90 L 06/08/18 18:35 96.9 F L 63 20 157/71 95 06/08/18 16:12 98.3 F 63 18 166/68 96 06/08/18 14:11 97.3 F L 60 18 172/73 96 06/08/18 13:26 98.0 F 59 L 18 144/68 96 06/08/18 11:45 60 18 158/93 96 06/08/18 09:36 98.3 F 76 18 173/113 93 L Intake and Output 06/08/18 06/08/18 06/08/18 06:59 14:59 22:59 Intake Total 240 Balance 240 Intake: Oral 240 Other: Voiding Method Bedpan # Voids 0 # Bowel Movements 0 Weight 200 kg 200 kg - Constitutional General appearance: obese - EENT EENT: PERRL, hearing intact, vision intact - Respiratory Respiratory: lungs clear - Cardiovascular Cardiovascular: regular rate ( ) - Neurologic Neurologic examination: Next Mental status: She was awake she was oriented to person and place she knew the year she was able to describe why she came to the hospital. There is no a aphasia or dysarthria Cranial nerves II through XII are 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 next Motor examination she was able to move all 4 extremities equally next Sensory examination intact to light touch 8 not tested Results - Laboratory Findings CBC and BMP: 06/08/18 10:30 06/08/18 10:30 Abnormal Lab Findings: Abnormal Labs 06/08/18 06/08/18 06/08/18 10:00 10:30 10:30 WBC Hgb MCH MCHC RDW Neutrophils # BUN Creatinine Glucose POC Glucose (mg/dL) Hemoglobin A1c 6.7 H AST Total Creatine Kinase 564 H CK-MB (CK-2) 5.1 H Troponin I 0.055 H* Urine Protein Trace H Ur Leukocyte Esterase Moderate H Urine WBC 14 H Hyaline Casts 3 H Urine Mucus Rare H 06/08/18 06/08/18 06/08/18 10:30 10:30 21:07 WBC 11.2 H Hgb 11.1 L MCH 24.4 L MCHC 29.5 L RDW 16.3 H Neutrophils # 8.7 H BUN 30 H Creatinine 2.00 H Glucose 129 H POC Glucose (mg/dL) 179 H Hemoglobin A1c AST 42 H Total Creatine Kinase CK-MB (CK-2) Troponin I Urine Protein Ur Leukocyte Esterase Urine WBC Hyaline Casts Urine Mucus Assessment and Plan (1) Recurrent falls Current Visit: Yes Status: Acute Code(s): R29.6 - REPEATED FALLS SNOMED Code(s): 127677825 (2) Delirium due to general medical condition Current Visit: Yes Status: Acute SNOMED Code(s): 6497124 (3) Urinary tract infection Current Visit: Yes Status: Acute SNOMED Code(s): 16202104 (4) Parkinsons disease Current Visit: Yes Status: Chronic SNOMED Code(s): 27201687 (5) Rhabdomyolysis Current Visit: Yes Status: Acute SNOMED Code(s): 498198277 Plan: The patient is a 72-year-old woman admitted to the hospital with metabolic encephalopathy rhabdomyolysis and recurrent falls. She has multiple other medical conditions including iron deficiency anemia diabetes Parkinson's disease. Neurology was requested see the patient regarding altered mental status. Patient's mental state status seems to have improved. She is oriented to person place and year and she is able to provide history. Her initial cognitive disturbance may have been secondary to UTI and this seems to have improved. Her recurrent falls may be related to Parkinson's medications. Agree with reduction of carbidopa ,as this may be causing some orthostatic changes .Also recommend check blood pressure for any orthostatic changes. Recommend PT /OT and rehab
[2018-06-09 06:12] LABS: Glucose,Whole Blood 133 mg/dL (75-99)
[2018-06-09] MEDS: SODIUM CHLORIDE 0.9% 1,000 ML IV SCH ×2 (06:54→16:57)
[2018-06-09] MEDS: glipiZIDE 10 MG TAB PO SCH ×2 (06:54→16:59)
[2018-06-09] MEDS: ATENOLOL 50 MG TAB PO SCH ×2 (08:00→23:50)
[2018-06-09] MEDS: CYANOCOBALAMIN 500 MCG TAB PO SCH (08:00)
[2018-06-09] MEDS: PANTOPRAZOLE 40 MG TABLET PO SCH (08:00)
[2018-06-09] MEDS: CARBIDOPA-LEVODOPA 25-100 MG 1 EACH TAB PO SCH ×2 (08:01→23:50)
[2018-06-09] MEDS: ASPIRIN 81 MG PO SCH (08:01)
[2018-06-09] MEDS: KETOROLAC 0.5% OPHTH DROPS 5 ML BTL BOTH EYES SCH ×3 (08:01→22:51)
[2018-06-09] MEDS ORDERED: HYDROCHLOROTHIAZIDE 25 MG TAB PO SCH (09:00)
[2018-06-09] MEDS ORDERED: LOSARTAN 50 MG TAB PO SCH (09:00)
[2018-06-09] MEDS: INSULIN DETEMIR 100 UNIT/ML 10 ML VIAL SQ SCH ×2 (09:36→23:50)
--- NOTE | 2018-06-09 11:20 | CONS ---
NADEEN Moran is a 72-year-old lady with history of type 2 diabetes, hypertension, dyslipidemia, Parkinson's syndrome, rheumatoid arthritis, and congestive heart failure, who presented to the hospital with worsening confusion, hallucinations and mental status changes. Cardiology had been consulted because of mild elevated troponin. She denies chest pain or difficulty in breathing. She denies new focal neurological deficits other than the confusion. She has Parkinson disease and is currently on medications for the same. She was treated in the outpatient setting with Bactrim for possible UTI. PAST MEDICAL HISTORY: Significant for hypertension, dyslipidemia, diabetes, heart failure, rheumatoid arthritis. PAST SURGICAL HISTORY: Significant for appendectomy, hysterectomy, tonsillectomy. MEDICATIONS: Include aspirin, atenolol 100 b.i.d., Zocor 20 daily, glipizide 10 b.i.d., Sinemet, Lasix 20 q. daily, insulin, metformin, amantadine, Protonix. Allergic to NEURONTIN. FAMILY HISTORY: Negative for premature coronary artery disease. SOCIAL HISTORY: Negative for current smoking, EtOH abuse, or drug abuse. REVIEW OF SYSTEMS: I am unable to obtain from the patient who appears confused. PHYSICAL EXAM: She is comfortable at rest. Heart rate is 70 beats per minute. Blood pressure is 160/77, respiratory rate is 16, O2 sat is 96% on 2 L. Chest exam reveals good air entry bilaterally. Heart exam reveals first and second heart sounds. No gallop. Abdomen is soft. Exam of the extremities revealed 1+ edema bilaterally. 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 LABS: Show that the hemoglobin is 11, white cell count is 11. BUN is 30, creatinine is 2. Troponin is in the tan zone at 0.055. EKG shows sinus rhythm with nonspecific ST-T wave changes. ASSESSMENT: 1. Troponin elevation. 2. Renal failure. 3. Urinary tract infection. 4. Confusion. 5. History of hypertension. 6. History of parkinsonism. PLAN: The troponin elevation could be related to the renal failure. In any event, patient's clinical presentation is not consistent with acute myocardial ischemia. I will obtain a 2D echo to assess LV function and wall motion and I will decide on further course of action. Thank you for allowing us to participate with this pleasant lady. MMODL / IJN: [id number] /
[2018-06-09 11:39] LABS: Glucose,Whole Blood 86 mg/dL (75-99)
[2018-06-09 12:00] LABS: Iron Saturation 8.82 (12.00-45.00)
[2018-06-09] MEDS: POTASSIUM CITRATE 5 MEQ TABLET.ER PO SCH (12:46)
[2018-06-09] MEDS: amLODIPine 5 MG TAB PO SCH (12:46)
--- NOTE | 2018-06-09 13:07 | ECHOF ---
Referral Reason:troponin MEASUREMENTS -------- HEIGHT: 167.6 cm WEIGHT: 87.1 kg BP: 162/117 RVIDd: 2.8 cm (< 3.3) IVSd: 1.2 cm (0.6 - 1.1) LVIDd: 4.8 cm (3.9 - 5.3) LVPWd: 1.2 cm (0.6 - 1.1) IVSs: 1.8 cm LVIDs: 3.2 cm LVPWs: 1.3 cm LA Diam: 3.7 cm (2.7 - 3.8) LAESV Index (A-L): 39.28 ml/m Ao Diam: 3.2 cm (2.0 - 3.7) AV Cusp: 1.8 cm (1.5 - 2.6) MV EXCURSION: 20.174 mm (> 18.000) MV EF SLOPE: 83 mm/s (70 - 150) EPSS: 0.7 cm MV E Ned: 0.93 m/s MV DecT: 115 ms MV A Ned: 0.96 m/s MV E/A Ratio: 0.98 RAP: 5.00 mmHg RVSP: 37.78 mmHg FINDINGS -------- Sinus rhythm. This was a technically adequate study. The left ventricular size is normal. There is borderline concentric left ventricular hypertrophy. There is mild global hypokinesis of LV . Overall left ventricular systolic function is mildly impa ired with, an EF between 45 - 50 %. The right ventricle is normal in size. LA is moderately dilated 34-39 ml/m2 The right atrium is normal in size. There is mild aortic valve sclerosis. Mild mitral annular calcification present. Mild mitral regurgitation is present. Mild tricuspid regurgitation present. There is mild pulmonary hypertension. The right ventricular systolic pressure, as measured by Doppler, is 37.78mmHg. Trace/mild (physiologic) pulmonic regurgitation. The aortic root size is normal. Normal inferior vena cava with normal inspiratory collapse consistent with estimated right atrial pre ssure of 5 mmHg. There is no pericardial effusion. CONCLUSIONS -------- 1. Sinus rhythm. 2. This was a technically adequate study. 3. The left ventricular size is normal. 4. There is borderline concentric left ventricular hypertrophy. 5. There is mild global hypokinesis of LV . 6. Overall left ventricular systolic function is mildly impaired with, an EF between 45 - 50 %. 7. LA is moderately dilated 34-39 ml/m2 8. There is mild aortic valve sclerosis. 9. Mild mitral annular calcification present. 10. Mild mitral regurgitation is present. 11. Mild tricuspid regurgitation present. 12. There is mild pulmonary hypertension. 13. Trace/mild (physiologic) pulmonic regurgitation. 14. The aortic root size is normal. 15. Normal inferior vena cava with normal inspiratory collapse consistent with estimated right atrial pressure of 5 mmHg. 16. There is no pericardial effusion. ENVELOPE FOLDING MACHINE ADJUSTER: Charlee Cross RDCS
--- NOTE | 2018-06-09 13:24 | P.CNOR ---
History of Present Illness - [facility] Consult date: 06/09/18 Requesting physician: Jennyfer Tellez Consult reason: neck pain, other (C6-7 cervical spinal canal stenosis) History of present illness: Patient is a very pleasant 72-year-old female who is seen and examined at bedside with her daughter present for further evaluation regards to her cervical spine. Consultation was placed by Jennyfer FELICIANO. Patient was brought to the emergency on 06/08/2018 after mental status with hallucinations. She has been falling a lot more frequently recently. She is known to experience tremors of the upper extremities and has been following with Dr. Jimenez an outpatient setting. Family states she has not been diagnosed with Parkinson's but is currently taking carbidopa-levodopa. Patient had a MRI of the cervical spine performed on 05/17/[address] Jimenez. She was scheduled for further evaluation in our office next 06/16/2018 Dr. Jim Merrill. Patient states she has some posterior cervical pain but her pain is not severe. She currently denies any upper extremity weakness or radiculopathy bilaterally. On admission to the hospital she was found to have a urinary tract infection. She's been treated with oral antibiotics over the past month for a urinary tract infection without resolution. She is currently on ceftriaxone. She was also found to have elevated troponin levels. She has been seen by cardiology. Cardiology has ordered an echocardiogram. Patient has had an improvement of her altered mental status since admission. She is answering questions clearly and appropriately. She has a significant medical history including type 2 diabetes mellitus, hypertension, recurrent urinary tract infection, history of congestive heart failure, upper extremity tremors, and rheumatoid arthritis. Patient has been seen by neurology during her admission as well. Past Medical History Past Medical History: Heart Failure, Diabetes Mellitus, Hyperlipidemia, Hypertension, Pneumonia, Rheumatoid Arthritis (RA) Additional Past Medical History / Comment(s): tremors, renal lithiasis, hemorrhoids(sx done), "has had problems w/low magnesium.anemia. per posue pt had past cancer "uterine or cervical-had hysterectomy". it was previously charted that pt had hx of ra and cfh spouse not able to verify this History of Any Multi-Drug Resistant Organisms: ESBL Year Discovered:: 05/11/18 MDRO Source:: ESBL URINE Past Surgical History: Appendectomy, Hysterectomy, Orthopedic Surgery, Tonsillectomy Additional Past Surgical History / Comment(s): rt total knee repalcement, cataracts, hemmorroidectomy, colonoscopy Past Anesthesia/Blood Transfusion Reactions: No Reported Reaction Additional Past Anesthesia/Blood Transfusion Reaction / Comm: per psouse-pt never receieved any blood Smoking Status: Never smoker - Past Family History Mother Family Medical History: Diabetes Mellitus Father Additional Family Medical History / Comment(s): brain anuerysm Medications and Allergies Home Medications Medication Instructions Recorded Confirmed Type Aspirin 81 mg PO DAILY 07/18/14 06/08/18 History Atenolol 100 mg PO BID 07/18/14 06/08/18 History Simvastatin [Zocor] 20 mg PO HS 07/18/14 06/08/18 History glipiZIDE [Glipizide] 10 mg PO BID 07/18/14 06/08/18 History Carbidopa-Levodopa 25-100 mg 1 tab PO TID 09/30/17 06/08/18 History [Sinemet 25-100 mg] Furosemide [Lasix] 20 mg PO DAILY PRN 09/30/17 06/08/18 History Insulin Glargine,Hum.rec.anlog 14 unit SQ BID 09/30/17 06/08/18 History [Lantus Solostar] Oxybutynin Chloride 5 mg PO DAILY PRN 09/30/17 06/08/18 History metFORMIN HCL [Glucophage] 850 mg PO BID 09/30/17 06/08/18 History Amantadine HCl [Symmetrel] 100 mg PO BID 06/08/18 06/08/18 History Ketorolac 0.5% Ophth Soln [Acular] 1 drops BOTH EYES TID 06/08/18 06/08/18 History Olmesartan/Hydrochlorothiazide 1 tab PO DAILY 06/08/18 06/08/18 History [Benicar Hct 40-25 mg Tablet] Pantoprazole [Protonix] 40 mg PO DAILY 06/08/18 06/08/18 History Potassium Citrate [Urocit-K] 15 meq PO DAILY 06/08/18 06/08/18 History Vitamin B-12 100mcg 100 mcg PO DAILY 06/08/18 06/08/18 History Allergies Allergy/AdvReac Type Severity Reaction Status Date / Time gabapentin Allergy Hallucinati Verified 06/08/18 10:00 ons Physical Examination Physical exam: Patient is awake, alert, and oriented 3 Vital signs stable Good chest excursion with deep inspiration and expiration Examination of the cervical spine reveals skin is intact with no abrasions, lacerations, or bruises; no erythema, purulence or signs of infection Some pain with palpation the posterior cervical spine No obvious tremors in the bilateral upper extremities Active range of motion of the bilateral upper extremities is rigid Full range of motion of the cervical spine with adequate flexion, extension, and bilateral rotation Negative Spurling sign bilaterally Portfolio Manager strength, thumb strength, interosseous strength, biceps strength, triceps strength, and shoulder strength positive sustained bilaterally Upper extremity strength 5/5 bilaterally No upper extremity hyperreflexia bilaterally Hoffmans sign negative upper extremity bilaterally Results Pertinent studies: MRI of the cervical spine taken on 05/17/2018: C3-4, C4-5, and C5-6 degenerative disc disease, disc protrusions, and facet arthropathy resulting in central canal narrowing without evidence of significant neural foraminal stenosis; C6-7 degenerative disc disease, herniated nucleus pulposus, and facet arthropathy resulting in moderate central canal stenosis in which the report reads it is difficult to exclude cord signal change but I do not see obvious evidence of myelomalacia of the cervical spinal cord - Labs Labs: Abnormal Lab Results - Last 24 Hours (Table) 06/08/18 06/08/18 06/09/18 Range/Units 10:30 21:07 06:04 POC Glucose (mg/dL) 179 H (75-99) mg/dL Hemoglobin A1c 6.7 H (4.0-6.0) % Iron 27 L (50-170) ug/dL Iron Saturation 8.82 L (12.00-45.00) 06/09/18 Range/Units 06:10 POC Glucose (mg/dL) 133 H (75-99) mg/dL Hemoglobin A1c (4.0-6.0) % Iron (50-170) ug/dL Iron Saturation (12.00-45.00) H & H 06/08/18 Range/Units 10:30 Hgb 11.1 L (11.4-16.0) gm/dL Hct 37.7 (34.0-46.0) % Coagulation 06/08/18 Range/Units 10:30 INR 1.0 (<1.2) Result Diagrams: 06/08/18 10:30 06/08/18 10:30 Assessment and Plan Assessment: Assessment: C6-7 central spinal canal stenosis due to herniated nucleus pulposus, degenerative disc disease, and facet arthropathy in which cervical myelomalacia cannot be excluded Cervical degenerative disc disease Cervical facet arthropathy Cervical disc protrusion Cervicalgia Recurrent falls Type 2 diabetes mellitus Hypertension Current urinary tract infection on IV antibiotics History of congestive heart failure Upper extremity tremors Rheumatoid arthritis Altered mental status and hallucinations (1) Cervical spinal stenosis Current Visit: Yes Status: Acute Code(s): M48.02 - SPINAL STENOSIS, CERVICAL REGION SNOMED Code(s): 45530596 (2) Degenerative disc disease, cervical Current Visit: Yes Status: Acute Code(s): M50.30 - OTHER CERVICAL DISC DEGENERATION, UNSP CERVICAL REGION SNOMED Code(s): 46432675 (3) Cervicalgia Current Visit: Yes Status: Acute Code(s): M54.2 - CERVICALGIA SNOMED Code( s): 87885807 (4) Facet arthropathy, cervical Current Visit: Yes Status: Acute Code(s): M47.812 - SPONDYLOSIS W/O MYELOPATHY OR RADICULOPATHY, CERVICAL REGION SNOMED Code(s): 386827957 (5) Cervical disc herniation Current Visit: Yes Status: Acute Code(s): M50.20 - OTHER CERVICAL DISC DISPLACEMENT, UNSP CERVICAL REGION SNOMED Code(s): 535817225 (6) Hypertension Current Visit: Yes Status: Acute Code(s): I10 - ESSENTIAL (PRIMARY) HYPERTENSION SNOMED Code(s): 08434748 (7) Mental status alteration Current Visit: Yes Status: Acute Code(s): R41.82 - ALTERED MENTAL STATUS, UNSPECIFIED SNOMED Code(s): 946140255 (8) Type 2 diabetes mellitus Current Visit: Yes Status: Acute Code(s): E11.9 - TYPE 2 DIABETES MELLITUS WITHOUT COMPLICATIONS SNOMED Code(s): 07679575 (9) Elevated troponin Current Visit: Yes Status: Acute Code(s): R74.8 - ABNORMAL LEVELS OF OTHER SERUM ENZYMES SNOMED Code(s): 606783778 (10) Recurrent falls Current Visit: Yes Status: Acute Code(s): R29.6 - REPEATED FALLS SNOMED Code(s): 476617063 (11) Urinary tract infection Current Visit: Yes Status: Acute Code(s): N39.0 - URINARY TRACT INFECTION, SITE NOT SPECIFIED SNOMED Code(s): 63151272 Plan: Plan: 1. After reviewing of imaging, physical examination the patient, and after discussion with the patient, we are not currently planning for acute surgical intervention in regards to the patient's cervical spine. She does have degenerative changes at her cervical spine most significant at C6-7 with evidence of spinal canal stenosis. Imaging report states is difficult to exclude cervical myelomalacia, but patient is not currently exhibiting cervical myelopathic symptoms during physical examination. She does not have evidence of hyperreflexia of the upper extremities and Palma sign is negative. She is not experiencing any upper extremity radiculopathy or weakness bilaterally. She is also currently being treated for other medical diagnoses including urinary tract infection and elevated troponin levels along with altered mental status and hallucinations. We discussed we'll continue conservative treatment in regards her cervical spine and will plan to have her follow up in outpatient setting as scheduled next week, 06/16/2018. Depending how she progresses conservatively, she could be a candidate for surgical intervention at her cervical spine should she fail conservative treatment options. We would most likely plan to have her work for formal physical therapy and/or pain management before proceeding forward with surgical intervention depending on her symptoms. She is encouraged to continue with further treatment evaluation other medical providers in regards to urinary tract infection, elevated troponin level, altered mental status, and hallucinations. This plan of care been discussed in detail with the patient and her family and they agree with this plan. 2. Patient will continue to be seen by medicine. 3. Patient will continue to be seen by Dr. Gunderson in cardiology in regards to elevated troponin level 4. Patient will continue to be followed by Dr. Lynn and neurology for further evaluation and possible treatment 5. From an orthopedic spine standpoint, patient is clear for discharge and may follow-up in outpatient setting as scheduled on 06/16/2018 6. Patient has been discussed in detail with Dr. Jim Merrill he agrees with this plan. Time with Patient: Less than 30
--- NOTE | 2018-06-09 14:08 | P.PN ---
Subjective Progress Note Date: 06/09/18 72s years old female with past medical history of diabetes type 2, hyperlipidemia, hypertension, history of Parkinson syndrome, ESBL UTI, Rheumatoid arthritis, history of congestive heart failure, nephrolithiasis presents with change in mental status, worsening confusion and visual hallucinations associated with multiple episodes of fall in the past 1 week. According to the patient who is at bedside patient has been acting weird had multiple falls at home has been under care of Dr. Jimenez for Parkinson disease and degenerative disease of the neck for which they have to see Dr. Merrill. Patient was unable to provide any history. For the past 1 month patient is being treated for UTI by Dr. Lehman as outpatient followed by treatment at urgent care 1 week ago patient has just picked up the prescription on Tuesday for Bactrim and has not completed her UTI medications. On evaluation in the ER, patient has a temp of 98.3, pulse rate 60 blood pressure 172/73. Labs suggest a leukocytosis of 11.2, hemoglobin 11.1 platelet 388, BUN 30 creatinine 2 which is patient's baseline glucose of 129 CK level of 564 troponin 0.55, urinalysis was done which suggested WBC of 14 positive for leukocyte Estrace negative for nitrates. Patient initiated on ceftriaxone in the ER and urine cultures ordered. Neurology consulted for altered mental status and worsening hallucinations on Parkinson dedication. Amantadine discontinued and patient's levodopa reduced to twice a day 06/09: Venous Doppler was negative for DVT in the right leg. Patient has been seen by neurology and in agreement with reducing carbidopa. We have also stopped amantadine. Patient normally follows with Dr. Jimenez as an outpatient. Daughter is at the bedside and states that her mental status is only worsening. She is continuing to have hallucinations and is seen people as well as thinks someone stole her wallet and credit cards. Dr. Zuleta has evaluated for troponin elevation thought to be related to renal failure. Echocardiogram reveals EF of 45-50%, mild global hypokinesia and borderline concentric left ventricular hypertrophy, mild aortic valve sclerosis, mild mitral regurgitation, mild tricuspid regurgitation, mild pulmonary hypertension. Urine culture was not obtained in the ER and will be ordered stat now. She is continued on ceftriaxone. Iron is low at 27, saturation 8.82 and TIBC 306. Ferritin level 33.8. Capillary blood glucose running between 86 and 179. Norvasc added for high blood pressure readings. Orthostatic vital signs requested. PT and OT evaluation. Patient has been seen by Dr. Merrill Re: Consult for C6 7 stenosis found on MRI done in May. There is no plan for any surgical intervention and plan for conservative management with follow-up in the office with plan for PT and/or pain management. Patient will be transferred to the [facility] floor. Objective - Vital Signs Vital signs: Vital Signs Temp 97.7 F 06/09/18 08:04 Pulse 73 06/09/18 08:04 Resp 16 06/09/18 08:04 BP 162/117 06/09/18 08:04 Pulse Ox 96 06/09/18 08:04 Intake & Output 06/08/18 06/09/18 06/09/18 18:59 06:59 18:59 Intake Total 240 0 Output Total 300 Balance 240 -300 Weight 200 kg 87.5 kg Intake: Oral 240 0 Output: Urine 300 Other: Voiding Method Bedpan Bedpan Bedpan # Voids 0 1 # Bowel Movements 0 0 - Exam General appearance: average body habitus, cooperative, no acute distress - EENT Eyes: EOMI, PERRLA, dentition normal Ears: bilateral: normal - Neck Neck: no lymphadenopathy, normal ROM, no rigidity Carotids: bilateral: upstroke normal Thyroid: bilateral: normal size - Respiratory Respiratory: bilateral: CTA, negative: diminished, dullness, rhonchi, wheezing - Cardiovascular Rhythm: regular Heart sounds: normal: S1, S2 Abnormal Heart Sounds: systolic murmur, no diastolic murmur, no rub, no S3 Gallop, no S4 Gallop leg Peripheral Edema: bilateral: 1+ dorsalis pedis Peripheral Pulses: bilateral: Normal - Gastrointestinal General gastrointestinal: no distended, no rigid, soft, no tenderness - Integumentary Integumentary: no calor - Neurologic Neurologic: CNII-XII intact - Musculoskeletal Musculoskeletal: generalized weakness, strength equal bilaterally (Awake but oriented 1) - Psychiatric Awake but oriented X1 unable to follow commands - Labs CBC & Chem 7: 06/08/18 10:30 06/08/18 10:30 Labs: Abnormal Lab Results - Last 24 Hours (Table) 06/08/18 06/08/18 06/08/18 Range/Units 10:00 10:30 10:30 WBC (3.8-10.6) k/uL Hgb (11.4-16.0) gm/dL MCH (25.0-35.0) pg MCHC (31.0-37.0) g/dL RDW (11.5-15.5) % Neutrophils # (1.3-7.7) k/uL BUN (7-17) mg/dL Creatinine (0.52-1.04) mg/dL Glucose (74-99) mg/dL POC Glucose (mg/dL) (75-99) mg/dL Hemoglobin A1c 6.7 H (4.0-6.0) % AST (14-36) U/L Total Creatine Kinase 564 H (30-135) U/L CK-MB (CK-2) 5.1 H (0.0-2.4) ng/mL Troponin I 0.055 H* (0.000-0.034) ng/mL Urine Protein Trace H (Negative) Ur Leukocyte Esterase Moderate H (Negative) Urine WBC 14 H (0-5) /hpf Hyaline Casts 3 H (0-2) /lpf Urine Mucus Rare H (None) /hpf 06/08/18 06/08/18 06/08/18 Range/Units 10:30 10:30 21:07 WBC 11.2 H (3.8-10.6) k/uL Hgb 11.1 L (11.4-16.0) gm/dL MCH 24.4 L (25.0-35.0) pg MCHC 29.5 L (31.0-37.0) g/dL RDW 16.3 H (11.5-15.5) % Neutrophils # 8.7 H (1.3-7.7) k/uL BUN 30 H (7-17) mg/dL Creatinine 2.00 H (0.52-1.04) mg/dL Glucose 129 H (74-99) mg/dL POC Glucose (mg/dL) 179 H (75-99) mg/dL Hemoglobin A1c (4.0-6.0) % AST 42 H (14-36) U/L Total Creatine Kinase (30-135) U/L CK-MB (CK-2) (0.0-2.4) ng/mL Troponin I (0.000-0.034) ng/mL Urine Protein (Negative) Ur Leukocyte Esterase (Negative) Urine WBC (0-5) /hpf Hyaline Casts (0-2) /lpf Urine Mucus (None) /hpf 06/09/18 Range/Units 06:10 WBC (3.8-10.6) k/uL Hgb (11.4-16.0) gm/dL MCH (25.0-35.0) pg MCHC (31.0-37.0) g/dL RDW (11.5-15.5) % Neutrophils # (1.3-7.7) k/uL BUN (7-17) mg/dL Creatinine (0.52-1.04) mg/dL Glucose (74-99) mg/dL POC Glucose (mg/dL) 133 H (75-99) mg/dL Hemoglobin A1c (4.0-6.0) % AST (14-36) U/L Total Creatine Kinase (30-135) U/L CK-MB (CK-2) (0.0-2.4) ng/mL Troponin I (0.000-0.034) ng/mL Urine Protein (Negative) Ur Leukocyte Esterase (Negative) Urine WBC (0-5) /hpf Hyaline Casts (0-2) /lpf Urine Mucus (None) /hpf Assessment and Plan Plan: 1. Acute metabolic encephalopathy multifactorial likely secondary to urinary tract infection, other differential include side effect of Parkinson medication including amantadine due to its anticholinergic affect. Sinemet decreased frequency to twice daily. Continue ceftriaxone 1 g daily. Urine culture pending. EKG ordered. Orthostatics ordered. Transferred to [facility] floor. 2. Hallucinations likely secondary to the side effect of Parkinson medication. Holding amantadine decrease levodopa carbidopa 2 twice a day. Neurology consult appreciated. 3. CKD creatinine at baseline no acute kidney injuries seen continue on IV hydration decreased to 50 mL an hour, baseline creatinine at 1.8-2. 4. Rhabdomyolysis with elevated CK and CK-MB index likely secondary to multiple falls at home. Repeat CK tomorrow. Continue IV hydration. 5. Diabetes mellitus without any hypoglycemia, hemoglobin A1c 6.7. Glipizide was stopped continue current dose of Lantus and lispro hold metformin 6. Iron deficiency anemia, 11.1 hemoglobin stable as compared to previous. Iron studies as above 7. Secondary hyperparathyroidism most likely secondary to CKD. This would be monitored as an outpatient. 8. Cervical stenosis. Consult with Dr. Garfield mckeon. PT and OT can be started. Patient to follow-up as an outpatient. 9. DVT prophylaxis with heparin every 12 hrs. CODE STATUS full code Discharge plan: Subacute rehab on Tuesday Impression and plan of care have been directed as dictated by the signing physician. Jennyfer Tellez nurse practitioner acting as scribe for signing physician.
[2018-06-09 17:15] LABS: Glucose,Whole Blood 74 mg/dL (75-99)
[2018-06-09 20:50] LABS: Glucose,Whole Blood 145 mg/dL (75-99)
--- NOTE | 2018-06-09 22:24 | P.PN ---
Subjective Progress Note Date: 06/09/18 The patient is a 72-year-old woman who was admitted to the hospital with metabolic encephalopathy, rhabdomyolysis and recurrent falls. The patient has multiple medical problems including iron deficiency anemia Parkinson's disease I per parathyroidism cervical spine stenosis and diabetes. She is more confused today. Thinks she is at home. Peers to be having some hallucinations. Man to dizziness been discontinued and Sinemet has been reduced. She has had a CT of the brain which was negative. She has a urinalysis which shows 14 WBCs and moderate leukoesterase positive Objective - Vital Signs Vital signs: Vital Signs Temp 97.5 F L 06/09/18 20:00 Pulse 90 06/09/18 20:00 Resp 16 06/09/18 20:00 BP 166/72 06/09/18 20:00 Pulse Ox 97 06/09/18 20:00 Intake & Output 06/09/18 06/09/18 06/10/18 06:59 18:59 06:59 Intake Total 0 Output Total 550 Balance -550 Weight 87.5 kg Intake: Oral 0 Output: Urine 550 Other: Voiding Method Bedpan Bedpan # Voids 1 # Bowel Movements 0 - Constitutional General appearance: Present: obese - EENT Eyes: Present: PERRLA ENT: Present: hearing grossly normal - Respiratory Respiratory: bilateral: CTA - Cardiovascular Rhythm: regular - Neurologic Neurologic Comment(s): Neurologic examination: Mental status the patient is more confused stated today. She thinks she is at home. She is disoriented to time and situation. The patient has been treated for the past month for UTI. The patient likely has an underlying metabolic encephalopathy. We will check MRI of the brain given her ongoing confusion. Neurologic: Present: CNII-XII intact - Musculoskeletal Musculoskeletal: Present: strength equal bilaterally - Labs CBC & Chem 7: 06/08/18 10:30 06/08/18 10:30 Labs: Abnormal Lab Results - Last 24 Hours (Table) 06/08/18 06/09/18 06/09/18 Range/Units 10:30 06:04 06:10 POC Glucose (mg/dL) 133 H (75-99) mg/dL Hemoglobin A1c 6.7 H (4.0-6.0) % Iron 27 L (50-170) ug/dL Iron Saturation 8.82 L (12.00-45.00) 06/09/18 06/09/18 Range/Units 16:40 20:48 POC Glucose (mg/dL) 74 L 145 H (75-99) mg/dL Hemoglobin A1c (4.0-6.0) % Iron (50-170) ug/dL Iron Saturation (12.00-45.00) Microbiology - Last 24 Hours (Table) 06/08/18 10:30 Blood Culture - Preliminary Blood No Growth after 24 hours Assessment and Plan (1) Recurrent falls Current Visit: Yes Status: Acute Code(s): R29.6 - REPEATED FALLS SNOMED Code(s): 565323100 (2) Delirium due to general medical condition Current Visit: Yes Status: Acute SNOMED Code(s): 0779627 (3) Urinary tract infection Current Visit: Yes Status: Acute SNOMED Code(s): 49932185 (4) Parkinsons disease Current Visit: Yes Status: Chronic SNOMED Code(s): 99911654 (5) Rhabdomyolysis Current Visit: Yes Status: Acute SNOMED Code(s): 306666094 Plan: The patient is a 72-year-old woman admitted to the hospital with metabolic encephalopathy rhabdomyolysis and recurrent falls. Patient has a history of Parkinson's disease. The patient appears to be more confused today. She has been treated for long-standing UTI over the past 1 month. Her urinalysis shows 14 WBCs. She has had a CAT scan of the brain which did not show any acute findings. Considering her worsening confusion and unexplained recurrent falls will proceed with MRI of the brain
[2018-06-09] MEDS: ATORVASTATIN 10 MG TAB PO SCH (23:50)
[2018-06-09] MEDS: HEPARIN SODIUM,PORCINE 5,000 UNIT/ML 1 ML VIAL SQ SCH (23:52)
[2018-06-10 07:30] LABS: Glucose,Whole Blood 98 mg/dL (75-99)
[2018-06-10 08:07] LABS: Anisocytosis Slight; HCT 32.4 % (34.0-46.0); HGB 10.2 gm/dL (11.4-16.0); Hypochromasia Slight; MCH 25.3 pg (25.0-35.0); MCHC 31.6 g/dL (31.0-37.0); MCV 79.9 fL (80.0-100.0); Mean Platelet Volume 6.4; Platelet Count 312 k/uL (150-450); RBC 4.06 m/uL (3.80-5.40); RDW 16.5 % (11.5-15.5); WBC 11.4 k/uL (3.8-10.6)
[2018-06-10 08:24] LABS: Albumin 3.5 g/dL (3.5-5.0); Calcium 8.8 mg/dL (8.4-10.2); Total Protein 6.9 g/dL (6.3-8.2)
[2018-06-10 08:28] LABS: Potassium 4.6 mmol/L (3.5-5.1)
[2018-06-10] MEDS: KETOROLAC 0.5% OPHTH DROPS 5 ML BTL BOTH EYES SCH ×3 (10:02→21:47)
[2018-06-10] MEDS: CYANOCOBALAMIN 500 MCG TAB PO SCH (10:02)
[2018-06-10] MEDS: CARBIDOPA-LEVODOPA 25-100 MG 1 EACH TAB PO SCH ×3 (10:03→21:47)
[2018-06-10] MEDS: ASPIRIN 81 MG PO SCH (10:03)
[2018-06-10] MEDS: HEPARIN SODIUM,PORCINE 5,000 UNIT/ML 1 ML VIAL SQ SCH ×2 (10:04→21:47)
[2018-06-10] MEDS: PANTOPRAZOLE 40 MG TABLET PO SCH (10:04)
[2018-06-10] MEDS: POTASSIUM CITRATE 5 MEQ TABLET.ER PO SCH (10:04)
[2018-06-10] MEDS: glipiZIDE 10 MG TAB PO SCH ×2 (10:04→17:19)
[2018-06-10] MEDS: amLODIPine 5 MG TAB PO SCH (10:04)
[2018-06-10] MEDS: ATENOLOL 50 MG TAB PO SCH ×2 (10:06→21:47)
[2018-06-10] MEDS: INSULIN DETEMIR 100 UNIT/ML 10 ML VIAL SQ SCH ×2 (10:20→21:47)
[2018-06-10 11:07] LABS: Glucose,Whole Blood 155 mg/dL (75-99)
[2018-06-10] MEDS ORDERED: ALPRAZolam 0.25 MG TAB PO STA (12:15)
--- NOTE | 2018-06-10 12:24 | P.PN ---
Subjective Progress Note Date: 06/10/18 The patient is a 72-year-old woman who was admitted to the hospital with metabolic encephalopathy, rhabdomyolysis and recurrent falls. The patient has multiple medical problems including iron deficiency anemia Parkinson's disease hyperparathyroidism cervical spine stenosis and diabetes. She continues to be confused although she is able to answer some direct questions. She does admit to having some hallucinations. Her daughter and son-in-law are at the bedside. And they report that she have noticed progressive weakness over the last 2 months. The falls were more recent over the last 1 week. The patient complains of some difficulty swallowing today. She had does have a dry mouth. Sinemet was reduced as it was thought it might have contributed to hallucinations. The patient denies any back pain. She denies any new complaint. The patient's family reports that she is have had the tremors of her body for over a year and although she has been on Parkinson's medications a diagnosis of Parkinson's was not officially given to her. Patient's family also reports that she had a normal MRI of the brain at [facility] 2 months ago. She will have a repeat MRI brain today. Objective - Vital Signs Vital signs: Vital Signs Temp 97.7 F 06/10/18 05:54 Pulse 71 06/10/18 10:04 Resp 18 06/10/18 10:04 BP 193/90 06/10/18 05:54 Pulse Ox 92 L 06/10/18 05:54 Intake & Output 06/09/18 06/10/18 06/10/18 18:59 06:59 18:59 Intake Total 0 475 Output Total 550 Balance -550 475 Weight 85 kg Intake: Intake, IV Titration 475 Amount Sodium Chloride 0.9% 1, 475 000 ml @ 50 mls/hr IV . Q20H [facility] Rx#:[id number] Oral 0 Output: Urine 550 Other: Voiding Method Bedpan Bedpan Bedpan # Voids 1 - Constitutional General appearance: Present: obese - EENT Eyes: Present: EOMI, PERRLA - Respiratory Respiratory: bilateral: CTA - Neurologic Neurologic Comment(s): Neurologic examination: Mental status the patient was awake. She was alert but mildly confused. She was oriented to person and place. She was able to identify her son-in-law who is in the room. She was able to follow simple commands. Her speech was slightly slow but there was no a aphasia. Cranial nerve examination pupils were 2 mm and equal there was no ptosis no nystagmus no facial asymmetry next Motor examination she was able to move all 4 extremities Coordination finger to nose there was mild dysmetria Deep tendon reflexes were 1+ in the upper extremities next Sensory examination was intact to light touch X Gait was not tested - Labs CBC & Chem 7: 06/10/18 07:38 06/10/18 07:38 Labs: Abnormal Lab Results - Last 24 Hours (Table) 06/09/18 06/09/18 06/10/18 Range/Units 16:40 20:48 07:38 WBC 11.4 H (3.8-10.6) k/uL Hgb 10.2 L (11.4-16.0) gm/dL Hct 32.4 L (34.0-46.0) % MCV 79.9 L (80.0-100.0) fL RDW 16.5 H (11.5-15.5) % Carbon Dioxide (22-30) mmol/L BUN (7-17) mg/dL Creatinine (0.52-1.04) mg/dL Glucose (74-99) mg/dL POC Glucose (mg/dL) 74 L 145 H (75-99) mg/dL AST (14-36) U/L Creatine Kinase (30-135) U/L 06/10/18 06/10/18 Range/Units 07:38 11:06 WBC (3.8-10.6) k/uL Hgb (11.4-16.0) gm/dL Hct (34.0-46.0) % MCV (80.0-100.0) fL RDW (11.5-15.5) % Carbon Dioxide 21 L (22-30) mmol/L BUN 22 H (7-17) mg/dL Creatinine 1.46 H (0.52-1.04) mg/dL Glucose 103 H (74-99) mg/dL POC Glucose (mg/dL) 155 H (75-99) mg/dL AST 80 H (14-36) U/L Creatine Kinase 1111 H* (30-135) U/L Microbiology - Last 24 Hours (Table) 06/09/18 16:28 Urine Culture - Preliminary Urine,Voided 06/08/18 10:30 Blood Culture - Preliminary Blood No Growth after 24 hours Assessment and Plan (1) Recurrent falls Current Visit: Yes Status: Acute Code(s): R29.6 - REPEATED FALLS SNOMED Code(s): 383931566 (2) Delirium due to general medical condition Current Visit: Yes Status: Acute SNOMED Code(s): 4528540 (3) Urinary tract infection Current Visit: Yes Status: Acute SNOMED Code(s): 10243677 (4) Parkinsons disease Current Visit: Yes Status: Chronic SNOMED Code(s): 03829934 (5) Rhabdomyolysis Current Visit: Yes Status: Acute SNOMED Code(s): 168056513 Plan: The patient is a 72-year-old woman admitted to the hospital with metabolic encephalopathy rhabdomyolysis and recurrent falls. The patient will have an MRI of the brain today. We will put back her carbidopa back up to her usual dose. The difficulty swallowing may be related to the reduction in carbidopa dose. If swallowing does not improve she will have a swallow study. She has had an echocardiogram during this admission which was unremarkable and she has had a carotid ultrasound in September of this year which did not show any significant stenosis.
--- NOTE | 2018-06-10 13:07 | P.PN ---
Subjective Progress Note Date: 06/10/18 72s years old female with past medical history of diabetes type 2, hyperlipidemia, hypertension, history of Parkinson syndrome, ESBL UTI, Rheumatoid arthritis, history of congestive heart failure, nephrolithiasis presents with change in mental status, worsening confusion and visual hallucinations associated with multiple episodes of fall in the past 1 week. According to the patient who is at bedside patient has been acting weird had multiple falls at home has been under care of Dr. Jimenez for Parkinson disease and degenerative disease of the neck for which they have to see Dr. Merrill. Patient was unable to provide any history. For the past 1 month patient is being treated for UTI by Dr. Lehman as outpatient followed by treatment at urgent care 1 week ago patient has just picked up the prescription on Tuesday for Bactrim and has not completed her UTI medications. On evaluation in the ER, patient has a temp of 98.3, pulse rate 60 blood pressure 172/73. Labs suggest a leukocytosis of 11.2, hemoglobin 11.1 platelet 388, BUN 30 creatinine 2 which is patient's baseline glucose of 129 CK level of 564 troponin 0.55, urinalysis was done which suggested WBC of 14 positive for leukocyte Estrace negative for nitrates. Patient initiated on ceftriaxone in the ER and urine cultures ordered. Neurology consulted for altered mental status and worsening hallucinations on Parkinson dedication. Amantadine discontinued and patient's levodopa reduced to twice a day 06/09: Venous Doppler was negative for DVT in the right leg. Patient has been seen by neurology and in agreement with reducing carbidopa. We have also stopped amantadine. Patient normally follows with Dr. Jimenez as an outpatient. Daughter is at the bedside and states that her mental status is only worsening. She is continuing to have hallucinations and is seen people as well as thinks someone stole her wallet and credit cards. Dr. Zuleta has evaluated for troponin elevation thought to be related to renal failure. Echocardiogram reveals EF of 45-50%, mild global hypokinesia and borderline concentric left ventricular hypertrophy, mild aortic valve sclerosis, mild mitral regurgitation, mild tricuspid regurgitation, mild pulmonary hypertension. Urine culture was not obtained in the ER and will be ordered stat now. She is continued on ceftriaxone. Iron is low at 27, saturation 8.82 and TIBC 306. Ferritin level 33.8. Capillary blood glucose running between 86 and 179. Norvasc added for high blood pressure readings. Orthostatic vital signs requested. PT and OT evaluation. Patient has been seen by Dr. Merrill Re: Consult for C6 7 stenosis found on MRI done in May. There is no plan for any surgical intervention and plan for conservative management with follow-up in the office with plan for PT and/or pain management. Patient [facility] be transferred [facility] floor. 06/10: Patient continues to have hallucinations and seeing people as well as feeling like she is falling. Patient is in contact isolation for ESBL in urine. We'll consult infectious disease. Will increase IV fluids conservatively to 75 mL per hour due to EF of 45-50%, and hypokinesis and borderline concentric left ventricular hypertrophy. White count 11.4, hemoglobin 10.2, creatinine slight improvement 1.46 BUN 22, AST elevated at 80. Total CK was 564, CK-MB 5.1, repeat in the morning. Patient was seen by Dr. Zamorano, MRI of the brain ordered for today. Carbidopa dose return to her usual dose. Monitor swallow with the increase of carbipoa, no improvement will order swallow study per Dr. Zamorano recommendation. Objective - Vital Signs Vital signs: Vital Signs Temp 98.2 F 06/10/18 12:37 Pulse 73 06/10/18 12:37 Resp 18 06/10/18 12:37 BP 183/86 06/10/18 12:37 Pulse Ox 92 L 06/10/18 12:37 Intake & Output 06/09/18 06/10/18 06/10/18 18:59 06:59 18:59 Intake Total 0 475 Output Total 550 Balance -550 475 Weight 85 kg Intake: Intake, IV Titration 475 Amount Sodium Chloride 0.9% 1, 475 000 ml @ 50 mls/hr IV . Q20H [facility] Rx#:[id number] Oral 0 Output: Urine 550 Other: Voiding Method Bedpan Bedpan Bedpan # Voids 1 - Exam Gen: This is a 72-year-old female, in mild distress, able to answer minimal questions appropriately, average body habitus HEENT: Head is atraumatic, normocephalic. Pupils equal, round. Sclerae is anicteric. NECK: Supple. No JVD. No lymphadenopathy. No thyromegaly. LUNGS: Clear to auscultation. No wheezes or rhonchi. No intercostal retractions. HEART: Regular rate and rhythm. No murmur. ABDOMEN: Soft. Bowel sounds are present. No masses. No tenderness. EXTREMITIES: No pedal edema. No calf tenderness. NEUROLOGICAL: Patient is awake, alert and oriented x1, to self. Visual Hallucinations noted, Cranial nerves 2 through 12 are 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. Generalized weakness - Labs CBC & Chem 7: 06/10/18 07:38 06/10/18 07:38 Labs: Abnormal Lab Results - Last 24 Hours (Table) 06/09/18 06/09/18 06/10/18 Range/Units 16:40 20:48 07:38 WBC 11.4 H (3.8-10.6) k/uL Hgb 10.2 L (11.4-16.0) gm/dL Hct 32.4 L (34.0-46.0) % MCV 79.9 L (80.0-100.0) fL RDW 16.5 H (11.5-15.5) % Carbon Dioxide (22-30) mmol/L BUN (7-17) mg/dL Creatinine (0.52-1.04) mg/dL Glucose (74-99) mg/dL POC Glucose (mg/dL) 74 L 145 H (75-99) mg/dL AST (14-36) U/L Creatine Kinase (30-135) U/L 06/10/18 06/10/18 Range/Units 07:38 11:06 WBC (3.8-10.6) k/uL Hgb (11.4-16.0) gm/dL Hct (34.0-46.0) % MCV (80.0-100.0) fL RDW (11.5-15.5) % Carbon Dioxide 21 L (22-30) mmol/L BUN 22 H (7-17) mg/dL Creatinine 1.46 H (0.52-1.04) mg/dL Glucose 103 H (74-99) mg/dL POC Glucose (mg/dL) 155 H (75-99) mg/dL AST 80 H (14-36) U/L Creatine Kinase 1111 H* (30-135) U/L Microbiology - Last 24 Hours (Table) 06/09/18 16:28 Urine Culture - Preliminary Urine,Voided 06/08/18 10:30 Blood Culture - Preliminary Blood No Growth after 24 hours Assessment and Plan Plan: 1. Acute metabolic encephalopathy multifactorial likely secondary to urinary tract infection, other differential include side effect of Parkinson medication including amantadine due to its anticholinergic affect. Continue ceftriaxone 1 g daily. Urine culture pending, reported ESBL, infectious disease consult ordered. 2. Hallucinations likely secondary to the side effect of Parkinson medication. carbidopa 1 THREE a day. Neurology consult completed. 3. CKD creatinine at baseline no acute kidney injuries seen continue on IV hydration increase to 75 mL per hour. 4. Rhabdomyolysis with elevated CK and CK-MB index likely secondary to multiple falls at home. Repeat CK tomorrow. Continue IV hydration. 5. Dysphagia, carbidopa dose resumed to 1 tablet 3 times a day, monitor improvement of swallowing, if no improvement noted will order a swallow evaluation. 5. Diabetes mellitus without any hypoglycemia, hemoglobin A1c 6.7. Glipizide was stopped continue current dose of Lantus and lispro hold metformin 6. Iron deficiency anemia, 11.1 hemoglobin stable as compared to previous. Iron studies as above 7. Secondary hyperparathyroidism most likely secondary to CKD. This would be monitored as an outpatient. 8. Cervical stenosis. Consult with Dr. Garfield mckeon. PT and OT can be started. Patient to follow-up as an outpatient. 9. DVT prophylaxis with heparin every 12 hrs. Discharge plan: Subacute rehab on Tuesday Impression and plan of care have been directed as dictated by the signing physician. Laina Gil nurse practitioner acting as scribe for signing physician.
--- NOTE | 2018-06-10 13:27 | MR ---
EXAMINATION TYPE: MR brain wo con DATE OF EXAM: 06/10/2018 1:16 PM. COMPARISON: NONE. HISTORY: Confusion Technique: Multiplanar, multiecho imaging of the brain was obtained without intravenous contrast. FINDINGS: A fast brain protocol was utilized. This decreases resolution. Midline structures are unremarkable. There is a normal craniocervical junction. Echoplanar diffusion imaging shows no areas of restricted diffusion. There are normal vascular flow voids. The orbits are unremarkable. There is no evidence of a CP angle mass lesion. There is both punctate and confluent periventricular white matter disease. This is likely on the basi s of small vessel disease and chronic ischemic change. There is no focal lesion, mass effect or midli ne shift identified. I do not see evidence of intracranial blood. IMPRESSION: 1. NO ACUTE INTRACRANIAL ABNORMALITY. 2. BOTH CONFLUENT AND DIFFUSE PERIVENTRICULAR WHITE MATTER CHANGE, LIKELY ON THE BASIS OF A COMBINATI ON OF SMALL VESSEL DISEASE AND CHRONIC WHITE MATTER ISCHEMIC CHANGE.
[2018-06-10] MEDS: SODIUM CHLORIDE 0.9% 1,000 ML IV SCH ×2 (17:17→19:30)
[2018-06-10 17:26] LABS: Glucose,Whole Blood 125 mg/dL (75-99)
[2018-06-10 20:35] LABS: Glucose,Whole Blood 166 mg/dL (75-99)
[2018-06-10] MEDS: ATORVASTATIN 10 MG TAB PO SCH (21:47)
[2018-06-11] MEDS: SODIUM CHLORIDE 0.9% 1,000 ML IV SCH ×2 (05:31→12:11)
[2018-06-11 07:28] LABS: Glucose,Whole Blood 91 mg/dL (75-99)
[2018-06-11 07:59] LABS: Anisocytosis Slight; Basophils % (A) 0 %; Eosinophils # (A) 0.3 k/uL (0-0.7); Eosinophils % (A) 3 %; HCT 31.2 % (34.0-46.0); HGB 9.7 gm/dL (11.4-16.0); Hypochromasia Moderate; Lymphocytes % (A) 25 %; MCH 25.5 pg (25.0-35.0); MCHC 31.1 g/dL (31.0-37.0); Mean Platelet Volume 6.9; Monocytes # (A) 0.7 k/uL (0-1.0); Monocytes % (A) 9 %; Neutrophils # (A) 4.7 k/uL (1.3-7.7); Neutrophils % (A) 60 %; Platelet Count 321 k/uL (150-450); RBC 3.81 m/uL (3.80-5.40); WBC 7.9 k/uL (3.8-10.6)
[2018-06-11 08:16] LABS: Albumin 2.9 g/dL (3.5-5.0); Calcium 8.6 mg/dL (8.4-10.2); Potassium 3.9 mmol/L (3.5-5.1); Total Bilirubin 0.5 mg/dL (0.2-1.3); Total Protein 5.8 g/dL (6.3-8.2)
[2018-06-11] MEDS: CYANOCOBALAMIN 500 MCG TAB PO SCH (09:28)
[2018-06-11] MEDS: KETOROLAC 0.5% OPHTH DROPS 5 ML BTL BOTH EYES SCH ×2 (09:28→16:58)
[2018-06-11] MEDS: CARBIDOPA-LEVODOPA 25-100 MG 1 EACH TAB PO SCH ×3 (09:28→22:16)
[2018-06-11] MEDS: glipiZIDE 10 MG TAB PO SCH ×2 (09:28→16:57)
[2018-06-11] MEDS: amLODIPine 5 MG TAB PO SCH (09:28)
[2018-06-11] MEDS: ASPIRIN 81 MG PO SCH (09:28)
[2018-06-11] MEDS: PANTOPRAZOLE 40 MG TABLET PO SCH (09:28)
[2018-06-11] MEDS: HEPARIN SODIUM,PORCINE 5,000 UNIT/ML 1 ML VIAL SQ SCH ×2 (09:28→22:16)
[2018-06-11] MEDS: ATENOLOL 50 MG TAB PO SCH ×2 (09:28→22:16)
[2018-06-11] MEDS: POTASSIUM CITRATE 5 MEQ TABLET.ER PO SCH (09:28)
[2018-06-11] MEDS: INSULIN DETEMIR 100 UNIT/ML 10 ML VIAL SQ SCH ×2 (09:31→22:17)
[2018-06-11 11:15] LABS: Glucose,Whole Blood 135 mg/dL (75-99)
--- NOTE | 2018-06-11 13:09 | P.PN ---
Subjective 72s years old female with past medical history of diabetes type 2, hyperlipidemia, hypertension, history of Parkinson syndrome, ESBL UTI, Rheumatoid arthritis, history of congestive heart failure, nephrolithiasis presents with change in mental status, worsening confusion and visual hallucinations associated with multiple episodes of fall in the past 1 week. According to the patient who is at bedside patient has been acting weird had multiple falls at home has been under care of Dr. Jimenez for Parkinson disease and degenerative disease of the neck for which they have to see Dr. Merrill. Patient was unable to provide any history. For the past 1 month patient is being treated for UTI by Dr. Lehman as outpatient followed by treatment at urgent care 1 week ago patient has just picked up the prescription on Tuesday for Bactrim and has not completed her UTI medications. On evaluation in the ER, patient has a temp of 98.3, pulse rate 60 blood pressure 172/73. Labs suggest a leukocytosis of 11.2, hemoglobin 11.1 platelet 388, BUN 30 creatinine 2 which is patient's baseline glucose of 129 CK level of 564 troponin 0.55, urinalysis was done which suggested WBC of 14 positive for leukocyte Estrace negative for nitrates. Patient initiated on ceftriaxone in the ER and urine cultures ordered. Neurology consulted for altered mental status and worsening hallucinations on Parkinson dedication. Amantadine discontinued and patient's levodopa reduced to twice a day 06/09: Venous Doppler was negative for DVT in the right leg. Patient has been seen by neurology and in agreement with reducing carbidopa. We have also stopped amantadine. Patient normally follows with Dr. Jimenez as an outpatient. Daughter is at the bedside and states that her mental status is only worsening. She is continuing to have hallucinations and is seen people as well as thinks someone stole her wallet and credit cards. Dr. Zuleta has evaluated for troponin elevation thought to be related to renal failure. Echocardiogram reveals EF of 45-50%, mild global hypokinesia and borderline concentric left ventricular hypertrophy, mild aortic valve sclerosis, mild mitral regurgitation, mild tricuspid regurgitation, mild pulmonary hypertension. Urine culture was not obtained in the ER and will be ordered stat now. She is continued on ceftriaxone. Iron is low at 27, saturation 8.82 and TIBC 306. Ferritin level 33.8. Capillary blood glucose running between 86 and 179. Norvasc added for high blood pressure readings. Orthostatic vital signs requested. PT and OT evaluation. Patient has been seen by Dr. Merrill Re: Consult for C6 7 stenosis found on MRI done in May. There is no plan for any surgical intervention and plan for conservative management with follow-up in the office with plan for PT and/or pain management. Patient will be transferred to the [facility] floor. 06/10: Patient continues to have hallucinations and seeing people as well as feeling like she is falling. Patient is in contact isolation for ESBL in urine. We'll consult infectious disease. Will increase IV fluids conservatively to 75 mL per hour due to EF of 45-50%, and hypokinesis and borderline concentric left ventricular hypertrophy. White count 11.4, hemoglobin 10.2, creatinine slight improvement 1.46 BUN 22, AST elevated at 80. Total CK was 564, CK-MB 5.1, repeat in the morning. Patient was seen by Dr. Zamorano, MRI of the brain ordered for today. Carbidopa dose return to her usual dose. Monitor swallow with the increase of carbipoa, no improvement will order swallow study per Dr. Zamorano recommendation. 06/11: Patient shows improvement, no longer having hallucinations. Carbipoa was increased yesterday. Patient is able to answer questions appropriately. Patient is able to swallow medications without difficulty at this time. We will continue to give IV sedation conservatively at 75 ML per hour. WBC 7.9, hemoglobin 9.7, BUN 27 creatinine 1.6. CK-MBs have declined to 3.8. MRI completed yesterday no acute intracranial abnormalities. Objective - Vital Signs Vital signs: Vital Signs Temp 98.4 F 06/11/18 06:01 Pulse 63 06/11/18 06:01 Resp 16 06/11/18 06:01 BP 185/82 06/11/18 06:01 Pulse Ox 94 L 06/11/18 06:01 Intake & Output 06/10/18 06/11/18 06/11/18 18:59 06:59 18:59 Intake Total 825 Balance 825 Weight 89 kg Intake: Intake, IV Titration 825 Amount Sodium Chloride 0.9% 1, 825 000 ml @ 75 mls/hr IV . [id number] Rx#:[id number] Other: Voiding Method Bedpan Bedpan Bedpan # Voids 1 - Exam Gen: This is a 72-year-old female, in mild distress, able to answer minimal questions appropriately, average body habitus HEENT: Head is atraumatic, normocephalic. Pupils equal, round. Sclerae is anicteric. NECK: Supple. No JVD. No lymphadenopathy. No thyromegaly. LUNGS: Clear to auscultation. No wheezes or rhonchi. No intercostal retractions. HEART: Regular rate and rhythm. No murmur. ABDOMEN: Soft. Bowel sounds are present. No masses. No tenderness. EXTREMITIES: No pedal edema. No calf tenderness. NEUROLOGICAL: Patient is awake, alert and oriented x1, to self. Cranial nerves 2 through 12 are 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. Generalized weakness - Labs CBC & Chem 7: 06/11/18 07:27 06/11/18 07:27 Labs: Abnormal Lab Results - Last 24 Hours (Table) 06/10/18 06/10/18 06/10/18 Range/Units 11:06 17:23 20:26 Hgb (11.4-16.0) gm/dL Hct (34.0-46.0) % RDW (11.5-15.5) % Chloride (98-107) mmol/L BUN (7-17) mg/dL Creatinine (0.52-1.04) mg/dL POC Glucose (mg/dL) 155 H 125 H 166 H (75-99) mg/dL AST (14-36) U/L CK-MB (CK-2) (0.0-2.4) ng/mL Total Protein (6.3-8.2) g/dL Albumin (3.5-5.0) g/dL 06/11/18 06/11/18 06/11/18 Range/Units 07:27 07:27 07:27 Hgb 9.7 L (11.4-16.0) gm/dL Hct 31.2 L (34.0-46.0) % RDW 17.0 H (11.5-15.5) % Chloride 112 H (98-107) mmol/L BUN 27 H (7-17) mg/dL Creatinine 1.60 H (0.52-1.04) mg/dL POC Glucose (mg/dL) (75-99) mg/dL AST 38 H (14-36) U/L CK-MB (CK-2) 3.8 H (0.0-2.4) ng/mL Total Protein 5.8 L (6.3-8.2) g/dL Albumin 2.9 L (3.5-5.0) g/dL Microbiology - Last 24 Hours (Table) 06/09/18 16:28 Urine Culture - Final Urine,Voided 06/08/18 10:30 Blood Culture - Preliminary Blood No Growth after 48 hours Assessment and Plan Plan: 1. Acute metabolic encephalopathy multifactorial likely secondary to urinary tract infection, other differential include side effect of Parkinson medication including amantadine due to its anticholinergic affect. Continue ceftriaxone 1 g daily. Urine culture completed no growth after 18 hours 2. Hallucinations likely secondary to the side effect of Parkinson medication. carbidopa 1 THREE a day. No hallucinations noted, improvement noted with the change of medications. Patient able to answer question appropriately. Neurology consult appreciated. 3. CKD creatinine at baseline no acute kidney injuries seen continue on IV hydration increase to 75 mL per hour. 4. Rhabdomyolysis with elevated CK and CK-MB index likely secondary to multiple falls at home. CK-MB improved to 3.8. Continue IV hydration. 5. Dysphagia, carbidopa dose resumed to 1 tablet 3 times a day, improvement of swallowing noted. 5. Diabetes mellitus without any hypoglycemia, hemoglobin A1c 6.7. Glipizide was stopped continue current dose of Lantus and lispro hold metformin 6. Iron deficiency anemia, 11.1 hemoglobin stable as compared to previous. Iron studies as above 7. Secondary hyperparathyroidism most likely secondary to CKD. This would be monitored as an outpatient. 8. Cervical stenosis. Consult with Dr. Merrill appreciated. PT and OT can be started. Patient to follow-up as an outpatient. 9. DVT prophylaxis with heparin every 12 hrs. Discharge plan: Subacute rehab on Tuesday Impression and plan of care have been directed as dictated by the signing physician. Laina Gil nurse practitioner acting as scribe for signing physician.
[2018-06-11 17:01] LABS: Glucose,Whole Blood 285 mg/dL (75-99)
[2018-06-11 20:41] LABS: Glucose,Whole Blood 214 mg/dL (75-99)
--- NOTE | 2018-06-11 22:04 | P.CONS ---
History of Present Illness - Reason for Consult Consult date: 06/11/18 - Chief Complaint Altered mental status - History of Present Illness 72-year-old female was been evaluated at multiple tertiary [facility]'s for evaluation of her neurological disease that his Parkinson's-like. She's been treated with several medications with attempts to improve her status. However recently she's had declining mental status, she's become more confused, has hallucinations has become very difficult for the patient's to care for and consequently she was brought to Hospital for further intervention. Patient's relates that she has a long-standing history of nephrolithiasis and multiple urinary tract infections. He further states that recently she has had difficulties with urinary tract infection and there is evidence this was an E. coli ESBL and she was treated with antibiotic therapy. Follow-up culture apparently revealed infection was still present and another course of antibiotic therapy was given. The patient's status continued to decline and subsequently she was brought to hospital in the infectious diseases consultation has been requested. The patient is a very poor historian at this time. Is not distinctly uncomfortable. Review of Systems ROS unobtainable: due to mental status Past Medical History Past Medical History: Heart Failure, Diabetes Mellitus, Hyperlipidemia, Hypertension, Pneumonia, Rheumatoid Arthritis (RA) Additional Past Medical History / Comment(s): tremors, renal lithiasis, hemorrhoids(sx done), "has had problems w/low magnesium.anemia. per posue pt had past cancer "uterine or cervical-had hysterectomy". it was previously charted that pt had hx of ra and cfh spouse not able to verify this History of Any Multi-Drug Resistant Organisms: ESBL Year Discovered:: 05/11/18 MDRO Source:: ESBL URINE Past Surgical History: Appendectomy, Hysterectomy, Orthopedic Surgery, Tonsillectomy Additional Past Surgical History / Comment(s): rt total knee repalcement, cataracts, hemmorroidectomy, colonoscopy Past Anesthesia/Blood Transfusion Reactions: No Reported Reaction Additional Past Anesthesia/Blood Transfusion Reaction / Comm: per psouse-pt never receieved any blood Additional Psychological History / Comment(s): and was living in the family home under the care of the and family members. Lif[employer] nonsmoker no alcohol use. No experience. No international travel. No animal exposures. Has been to multiple tertiary [facility]'s Smoking Status: Never smoker - Past Family History Mother Family Medical History: Diabetes Mellitus Father Additional Family Medical History / Comment(s): brain anuerysm Medications and Allergies Home Medications and Allergies Comment(s): Current Medications Acetaminophen (Tylenol Tab) 650 mg PO Q6HR PRN PRN Reason: Mild Pain or Fever > 100.5 Amlodipine Besylate (Norvasc) 5 mg PO DAILY [facility] Last Admin: 06/11/18 09:28 Dose: 5 mg Aspirin (Aspirin) 81 mg PO DAILY [facility] Last Admin: 06/11/18 09:28 Dose: 81 mg Atenolol (Tenormin) 100 mg PO BID [facility] Last Admin: 06/11/18 09:28 Dose: 100 mg Atorvastatin Calcium (Lipitor) 10 mg PO HS [facility] Last Admin: 06/10/18 21:47 Dose: 10 mg Carbidopa/Levodopa (Sinemet 25-100) 1 each PO TID [facility] Last Admin: 06/11/18 16:58 Dose: 1 each Cyanocobalamin (Vitamin B-12) 250 mcg PO DAILY [facility] Last Admin: 06/11/18 09:28 Dose: 250 mcg Glipizide (Glucotrol) 10 mg PO BID-W/MEALS [facility] Last Admin: 06/11/18 16:57 Dose: 10 mg Heparin Sodium (Porcine) (Heparin) 5,000 unit SQ Q12HR [facility] Last Admin: 06/11/18 09:28 Dose: 5,000 unit Sodium Chloride (Saline 0.9%) 1,000 mls @ 75 mls/hr IV .[id number] [facility] Last Admin: 06/11/18 12:11 Dose: Not Given Insulin Detemir (Levemir) 14 unit SQ BID [facility] Last Admin: 06/11/18 09:31 Dose: Not Given Naloxone HCl (Narcan) 0.2 mg IV Q2M PRN PRN Reason: Opioid Reversal Oxybutynin Chloride (Ditropan) 5 mg PO DAILY PRN PRN Reason: OVERACTIVE BLADDER Pantoprazole Sodium (Protonix) 40 mg PO DAILY [facility] Last Admin: 06/11/18 09:28 Dose: 40 mg Potassium Citrate (Urocit-K) 15 meq PO DAILY [facility] Last Admin: 06/11/18 09:28 Dose: 15 meq Home Medications Medication Instructions Recorded Confirmed Type Aspirin 81 mg PO DAILY 07/18/14 06/08/18 History Atenolol 100 mg PO BID 07/18/14 06/08/18 History Simvastatin [Zocor] 20 mg PO HS 07/18/14 06/08/18 History glipiZIDE [Glipizide] 10 mg PO BID 07/18/14 06/08/18 History Carbidopa-Levodopa 25-100 mg 1 tab PO TID 09/30/17 06/08/18 History [Sinemet 25-100 mg] Furosemide [Lasix] 20 mg PO DAILY PRN 09/30/17 06/08/18 History Insulin Glargine,Hum.rec.anlog 14 unit SQ BID 09/30/17 06/08/18 History [Lantus Solostar] Oxybutynin Chloride 5 mg PO DAILY PRN 09/30/17 06/08/18 History metFORMIN HCL [Glucophage] 850 mg PO BID 09/30/17 06/08/18 History Amantadine HCl [Symmetrel] 100 mg PO BID 06/08/18 06/08/18 History Ketorolac 0.5% Ophth Soln [Acular] 1 drops BOTH EYES TID 06/08/18 06/08/18 History Olmesartan/Hydrochlorothiazide 1 tab PO DAILY 06/08/18 06/08/18 History [Benicar Hct 40-25 mg Tablet] Pantoprazole [Protonix] 40 mg PO DAILY 06/08/18 06/08/18 History Potassium Citrate [Urocit-K] 15 meq PO DAILY 06/08/18 06/08/18 History Vitamin B-12 100mcg 100 mcg PO DAILY 06/08/18 06/08/18 History Allergies Allergy/AdvReac Type Severity Reaction Status Date / Time gabapentin Allergy Hallucinati Verified 06/08/18 10:00 ons Physical Exam Vitals: Vital Signs Temp Pulse Resp BP Pulse Ox 06/11/18 16:00 64 16 145/68 94 L 06/11/18 12:24 98.2 F 60 16 176/80 95 06/11/18 06:01 98.4 F 63 16 185/82 94 L 06/10/18 22:02 97.5 F L 70 16 150/74 95 Intake and Output 06/11/18 06/11/18 06/11/18 06:59 14:59 22:59 Intake Total 600 800 Output Total 1000 Balance 600 -200 Intake: Intake, IV Titration 600 600 Amount Sodium Chloride 0.9% 1, 600 600 000 ml @ 75 mls/hr IV . [id number] [facility] Rx#:[id number] Oral 200 Output: Urine 1000 Uretheral ([place]) 800 Other: Voiding Method Bedpan Bedpan Weight 89 kg 72-year-old female with very flat affect and masked like feces HEENT: Anicteric conjunctiva are pink and moist nasal mucosa 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 without significant lesions, there is no thrush. Denture. Neck: The neck is supple without significant lymphadenopathy or thyromegaly. Lungs: Symmetrical air entry without crackles or wheezing no dullness or egophony Heart: Regular rate and rhythm with an audible S1-S2, no S3 no S4. There is no significant murmur click or rub, PMI was nondisplaced. Abdomen: Positive bowel sounds soft and nontender without palpable masses or organomegaly. There was no guarding or rebound. Extremities: The upper extremities have excellent pulses they are symmetric, no significant petechiae or telangiectasia. No splinter hemorrhages were noted. The lower extremities are free from significant edema. The peripheral pulses were 2+ and symmetric. Neuro: The patient is awake answers a few questions, poor historian however, has minimal tremor that is noted only at certain times. Does not attempt to follow commands Results CBC & Chem 7: 06/11/18 07:27 10 07:27 Labs: Abnormal Lab Results - Last 24 Hours (Table) 06/11/18 06/11/18 06/11/18 Range/Units 07:27 07:27 07:27 Hgb 9.7 L (11.4-16.0) gm/dL Hct 31.2 L (34.0-46.0) % RDW 17.0 H (11.5-15.5) % Chloride 112 H (98-107) mmol/L BUN 27 H (7-17) mg/dL Creatinine 1.60 H (0.52-1.04) mg/dL POC Glucose (mg/dL) (75-99) mg/dL AST 38 H (14-36) U/L CK-MB (CK-2) 3.8 H (0.0-2.4) ng/mL Total Protein 5.8 L (6.3-8.2) g/dL Albumin 2.9 L (3.5-5.0) g/dL 06/11/18 06/11/18 06/11/18 Range/Units 11:12 16:59 20:35 Hgb (11.4-16.0) gm/dL Hct (34.0-46.0) % RDW (11.5-15.5) % Chloride (98-107) mmol/L BUN (7-17) mg/dL Creatinine (0.52-1.04) mg/dL POC Glucose (mg/dL) 135 H 285 H 214 H (75-99) mg/dL AST (14-36) U/L CK-MB (CK-2) (0.0-2.4) ng/mL Total Protein (6.3-8.2) g/dL Albumin (3.5-5.0) g/dL Microbiology - Last 24 Hours (Table) 06/08/18 10:30 Blood Culture - Preliminary Blood No Growth after 72 hours 06/09/18 16:28 Urine Culture - Final Urine,Voided Laboratory Results WBC 7.9 k/uL (3.8-10.6) 06/11/18 07:27 RBC 3.81 m/uL (3.80-5.40) 06/11/18 07:27 Hgb 9.7 gm/dL (11.4-16.0) L 06/11/18 07:27 Hct 31.2 % (34.0-46.0) L 06/11/18 07:27 MCV 82.0 fL (80.0-100.0) 06/11/18 07:27 MCH 25.5 pg (25.0-35.0) 06/11/18 07:27 MCHC 31.1 g/dL (31.0-37.0) 06/11/18 07:27 RDW 17.0 % (11.5-15.5) H 06/11/18 07:27 Plt Count 321 k/uL (150-450) 06/11/18 07:27 Neutrophils % 60 % 06/11/18 07:27 Lymphocytes % 25 % 06/11/18 07:27 Monocytes % 9 % 06/11/18 07:27 Eosinophils % 3 % 06/11/18 07:27 Basophils % 0 % 06/11/18 07:27 Neutrophils # 4.7 k/uL (1.3-7.7) 06/11/18 07:27 Lymphocytes # 2.0 k/uL (1.0-4.8) 06/11/18 07:27 Monocytes # 0.7 k/uL (0-1.0) 06/11/18 07:27 Eosinophils # 0.3 k/uL (0-0.7) 06/11/18 07:27 Basophils # 0.0 k/uL (0-0.2) 06/11/18 07:27 Hypochromasia Moderate 06/11/18 07:27 Anisocytosis Slight 06/11/18:27 Retic Count 2.0 % (0.5-2.0) 06/09/18 06:04 PT 10.0 sec (9.0-12.0) 06/08/18 10:30 INR 1.0 (<1.2) 06/08/18 10:30 APTT 22.5 sec (22.0-30.0) 06/08/18 10:30 Sodium 144 mmol/L (137-145) 06/11/18 07:27 Potassium 3.9 mmol/L (3.5-5.1) 06/11/18 07:27 Chloride 112 mmol/L (98-107) H 06/11/18 07:27 Carbon Dioxide 24 mmol/L (22-30) 06/11/18 07:27 Anion Gap 8 mmol/L 06/11/18 07:27 BUN 27 mg/dL (7-17) H 06/11/18 07:27 Creatinine 1.60 mg/dL (0.52-1.04) H 06/11/18 07:27 Est GFR (CKD-EPI)AfAm 37 (>60 ml/min/1.73 sqM) 06/11/18 07:27 Est GFR (CKD-EPI)NonAf 33 (>60 ml/min/1.73 sqM) 06/11/18 07:27 Glucose 86 mg/dL (74-99) 06/11/18 07:27 POC Glucose (mg/dL) 214 mg/dL (75-99) H 06/11/18 20:35 POC Glu Web Interface Developer ID Yas Francisco 06/11/18 20:[address] Glu mg/dL 146 06/08/18 10:30 Hemoglobin A1c 6.7 % (4.0-6.0) H 06/08/18 10:30 Calcium 8.6 mg/dL (8.4-10.2) 06/11/18 07:27 Magnesium 2.2 mg/dL (1.6-2.3) 06/08/18 10:30 Iron 27 ug/dL (50-170) L 06/09/18 06:04 TIBC 306 ug/dL (228-460) 06/09/18 06:04 Iron Saturation 8.82 (12.00-45.00) L 06/09/18 06:04 Ferritin 33.8 ng/mL (10.0-291.0) 06/09/18 06:04 Total Bilirubin 0.5 mg/dL (0.2-1.3) 06/11/18 07:27 AST 38 U/L (14-36) H 06/11/18 07:27 ALT 19 U/L (9-52) 06/11/18 07:27 Alkaline Phosphatase 63 U/L (38-126) 06/11/18 07:27 Ammonia <9 umol/L (<30) 06/08/18 11:58 Creatine Kinase 1111 U/L (30-135) H* 06/10/18 07:38 Total Creatine Kinase 564 U/L (30-135) H 06/08/18 10:30 CK-MB (CK-2) 3.8 ng/mL (0.0-2.4) H 06/11/18 07:27 CK-MB (CK-2) Rel Index 0.9 06/08/18 10:30 Troponin I 0.055 ng/mL (0.000-0.034) H* 06/08/18 10:30 Total Protein 5.8 g/dL (6.3-8.2) L 06/11/18 07:27 Albumin 2.9 g/dL (3.5-5.0) L 06/11/18 07:27 Urine Color Yellow 06/08/18 10:00 Urine Appearance Clear (Clear) 06/08/18 10:00 Urine pH 7.0 (5.0-8.0) 06/08/18 10:00 Ur Specific [place] 1.014 (1.001-1.035) 06/08/18 10:00 Urine Protein Trace (Negative) H 06/08/18 10:00 Urine Glucose (UA) Negative (Negative) 06/08/18 10:00 Urine Ketones Negative (Negative) 06/08/18 10:00 Urine Blood Negative (Negative) 06/08/18 10:00 Urine Nitrite Negative (Negative) 06/08/18 10:00 Urine Bilirubin Negative (Negative) 06/08/18 10:00 Urine Urobilinogen <2.0 mg/dL (<2.0) 06/08/18 10:00 Ur Leukocyte Esterase Moderate (Negative) H 06/08/18 10:00 Urine RBC 1 /hpf (0-5) 06/08/18 10:00 Urine WBC 14 /hpf (0-5) H 06/08/18 10:00 Ur Squamous Epith Cells 1 /hpf (0-4) 06/08/18 10:00 Hyaline Casts 3 /lpf (0-2) H 06/08/18 10:00 Urine Mucus Rare /hpf (None) H 06/08/18 10:00 Microbiology 06/08/18 10:30 Blood Blood Culture - Preliminary No Growth after 72 hours 06/09/18 16:28 Urine,Voided Urine Culture - Final Assessment and Plan (1) Asymptomatic bacteriuria Narrative/Plan: 72-year-old female with a very complex past medical history regarding her movement disorder that his Parkinson's like and she's been evaluated at multiple tertiary Medical Center's. She's had some decline of her recent mental status and there are concerns or could be some drug interactions resulting in her altered mental status and hallucinations. Neurology is following and trying to further direct her medication therapy. Initially in the outpatient setting she had a ESBL E. coli urinary tract infection. Treated with 2 courses of antibiotic therapy. The patient's who is her primary caregiver relates that she had no symptoms that he is aware of but yet was treated with antibiotics. At this time her urine culture is negative. She has no urine symptoms. The patient appears to have a symptomatic bacteriuria at times. This is discussed with the and that this syndrome does not require antibiotic therapy unless she develops symptoms. She has a known significant history of nephrolithiasis and is on chronic potassium citrate to help with her many stones. Her urine pH is at 7 believe is the current goal with her medication. There appears to be no acute current obstructive uropathy and should follow up with urology in the outpatient clinic as routine. At this time no antibiotic therapy is indicated and should be stopped. Current Visit: Yes Status: Acute Code(s): R82.71 - BACTERIURIA SNOMED Code (s): 614365734 (2) History of ESBL E. coli infection Current Visit: Yes Status: Acute Code(s): Z86.19 - PERSONAL HISTORY OF OTHER INFECTIOUS AND PARASITIC DISEASES SNOMED Code(s): 193216910 (3) Mental status alteration Current Visit: Yes Status: Acute Code(s): R41.82 - ALTERED MENTAL STATUS, UNSPECIFIED SNOMED Code(s): 690568379 (4) Parkinsonian features Current Visit: Yes Status: Acute Code(s): R25.9 - UNSPECIFIED ABNORMAL INVOLUNTARY MOVEMENTS SNOMED Code(s): 761111188
[2018-06-11] MEDS: ATORVASTATIN 10 MG TAB PO SCH (22:16)
[2018-06-12] MEDS: SODIUM CHLORIDE 0.9% 1,000 ML IV SCH ×3 (03:37→09:56)
[2018-06-12 07:10] LABS: Glucose,Whole Blood 101 mg/dL (75-99)
[2018-06-12] MEDS: PANTOPRAZOLE 40 MG TABLET PO SCH (08:43)
[2018-06-12] MEDS: HEPARIN SODIUM,PORCINE 5,000 UNIT/ML 1 ML VIAL SQ SCH ×2 (08:43→20:50)
[2018-06-12] MEDS: POTASSIUM CITRATE 5 MEQ TABLET.ER PO SCH (08:43)
[2018-06-12] MEDS: INSULIN DETEMIR 100 UNIT/ML 10 ML VIAL SQ SCH ×2 (08:43→21:09)
[2018-06-12] MEDS: CYANOCOBALAMIN 500 MCG TAB PO SCH (08:43)
[2018-06-12] MEDS: CARBIDOPA-LEVODOPA 25-100 MG 1 EACH TAB PO SCH ×3 (08:43→20:51)
[2018-06-12] MEDS: ASPIRIN 81 MG PO SCH (08:44)
[2018-06-12] MEDS: glipiZIDE 10 MG TAB PO SCH ×2 (08:44→17:13)
[2018-06-12] MEDS: ATENOLOL 50 MG TAB PO SCH ×2 (08:44→20:51)
[2018-06-12] MEDS: amLODIPine 5 MG TAB PO SCH (08:44)
[2018-06-12 11:48] LABS: Glucose,Whole Blood 167 mg/dL (75-99)
--- NOTE | 2018-06-12 12:11 | P.DS ---
Providers Date of admission: 06/10/18 14:33 Expected date of discharge: 06/12/18 Attending physician: Akbar Jackson MD Consults: 06/08/18 13:35 Consult Physician Routine Consulting Provider: Johan Gunderson Consult Reason/Comments: Elevated troponin Do you want consulting provider notified?: Yes 06/08/18 17:33 Consult Physician Routine Consulting Provider: Nicolás Lynn Consult Reason/Comments: Increased confusion; Parkinsons Do you want consulting provider notified?: Yes 06/09/18 10:11 Consult Physician Routine Consulting Provider: Tiff Merrill Consult Reason/Comments: spinal stenosis C6-7 MRI 05/17 Do you want consulting provider notified?: Yes 06/10/18 10:05 Consult Physician Routine Consulting Provider: Saman Junior Consult Reason/Comments: ESBL Do you want consulting provider notified?: Yes Primary care physician: [place] [facility] Course: 72s years old female with past medical history of diabetes type 2, hyperlipidemia, hypertension, history of Parkinson syndrome, ESBL UTI, Rheumatoid arthritis, history of congestive heart failure, nephrolithiasis presents with change in mental status, worsening confusion and visual hallucinations associated with multiple episodes of fall in the past 1 week. According to the patient who is at bedside patient has been acting weird had multiple falls at home has been under care of Dr. Jimenez for Parkinson disease and degenerative disease of the neck for which they have to see Dr. Merrill. Patient was unable to provide any history. For the past 1 month patient is being treated for UTI by Dr. Lehman as outpatient followed by treatment at urgent care 1 week ago patient has just picked up the prescription on Tuesday for Bactrim and has not completed her UTI medications. On evaluation in the ER, patient has a temp of 98.3, pulse rate 60 blood pressure 172/73. Labs suggest a leukocytosis of 11.2, hemoglobin 11.1 platelet 388, BUN 30 creatinine 2 which is patient's baseline glucose of 129 CK level of 564 troponin 0.55, urinalysis was done which suggested WBC of 14 positive for leukocyte Estrace negative for nitrates. Patient initiated on ceftriaxone in the ER and urine cultures ordered. Neurology consulted for altered mental status and worsening hallucinations on Parkinson dedication. Amantadine discontinued and patient's levodopa reduced to twice a day 06/09: Venous Doppler was negative for DVT in the right leg. Patient has been seen by neurology and in agreement with reducing carbidopa. We have also stopped amantadine. Patient normally follows with Dr. Jimenez as an outpatient. Daughter is at the bedside and states that her mental status is only worsening. She is continuing to have hallucinations and is seen people as well as thinks someone stole her wallet and credit cards. Dr. Zuleta has evaluated for troponin elevation thought to be related to renal failure. Echocardiogram reveals EF of 45-50%, mild global hypokinesia and borderline concentric left ventricular hypertrophy, mild aortic valve sclerosis, mild mitral regurgitation, mild tricuspid regurgitation, mild pulmonary hypertension. Urine culture was not obtained in the ER and will be ordered stat now. She is continued on ceftriaxone. Iron is low at 27, saturation 8.82 and TIBC 306. Ferritin level 33.8. Capillary blood glucose running between 86 and 179. Norvasc added for high blood pressure readings. Orthostatic vital signs requested. PT and OT evaluation. Patient has been seen by Dr. Merrill Re: Consult for C6 7 stenosis found on MRI done in May. There is no plan for any surgical intervention and plan for conservative management with follow-up in the office with plan for PT and/or pain management. [facility] 06/10: Patient continues to have hallucinations and seeing people as well as feeling like she is falling. Patient is in contact isolation for ESBL in urine. We'll consult infectious disease. Will increase IV fluids conservatively to 75 mL per hour due to EF of 45-50%, and hypokinesis and borderline concentric left ventricular hypertrophy. White count 11.4, hemoglobin 10.2, creatinine slight improvement 1.46 BUN 22, AST elevated at 80. Total CK was 564, CK-MB 5.1, repeat in the morning. Patient was seen by Dr. Zamorano, MRI of the brain ordered for today. Carbidopa dose return to her usual dose. Monitor swallow with the increase of carbipoa, no improvement will order swallow study per Dr. Zamorano recommendation. 06/11: Patient shows improvement, no longer having hallucinations. Carbipoa was increased yesterday. Patient is able to answer questions appropriately. Patient is able to swallow medications without difficulty at this time. We will continue to give IV sedation conservatively at 75 ML per hour. WBC 7.9, hemoglobin 9.7, BUN 27 creatinine 1.6. CK-MBs have declined to 3.8. MRI completed yesterday no acute intracranial abnormalities. 06/12: Patient was seen in consultation by Dr. Junior for asymptomatic bacteriuria with recommendations for no antibiotics. Today, family are at the bedside. He states she was still hallucinating on Tuesday but by the evening she was getting better, she continued to improve on Tuesday. Today patient states that she is a little bit confused but she is oriented to person place. She denies having any hallucinations or seen any people. Family states that she is much better today. Patient will be discharged to subacute rehab in stable condition once all arrangements are completed. Discharge diagnoses: 1. Acute metabolic encephalopathy multifactorial likely secondary to side effect of Parkinson medication including amantadine due to its anticholinergic affect. 2. Hallucinations likely secondary to the side effect of Parkinson medication. 3. CKD 4. Rhabdomyolysis 5. Dysphagia 5. Diabetes mellitus without any hypoglycemia, hemoglobin A1c 6.7. 6. Iron deficiency anemia 7. Secondary hyperparathyroidism most likely secondary to CKD. 8. Cervical stenosis. 9. Asymptomatic bacteriuria Discharge plan: Subacute rehab Impression and plan of care have been directed as dictated by the signing physician. Jennyfer Tellez nurse practitioner acting as scribe for signing physician. Patient Condition at Discharge: Good Plan - Discharge Summary Discharge Rx Participant: No New Discharge Prescriptions: New amLODIPine [Norvasc] 5 mg PO DAILY tab Docusate [Colace] 100 mg PO BID cap Polyethylene Glycol 3350 [Miralax] 17 gm PO DAILY powd.pack Continue glipiZIDE [Glipizide] 10 mg PO BID Atenolol 100 mg PO BID Simvastatin [Zocor] 20 mg PO HS Aspirin 81 mg PO DAILY Oxybutynin Chloride 5 mg PO DAILY PRN PRN Reason: OVERACTIVE BLADDER Carbidopa-Levodopa 25-100 mg [Sinemet 25-100 mg] 1 tab PO TID metFORMIN HCL [Glucophage] 850 mg PO BID Insulin Glargine,Hum.rec.anlog [Lantus Solostar] 14 unit SQ BID Ketorolac 0.5% Ophth Soln [Acular 0.5%] 1 drops BOTH EYES TID Pantoprazole [Protonix] 40 mg PO DAILY Vitamin B-12 100mcg 100 mcg PO DAILY Potassium Citrate [Urocit-K] 15 meq PO DAILY Discontinued Furosemide [Lasix] 20 mg PO DAILY PRN PRN Reason: SWELLING Amantadine HCl [Symmetrel] 100 mg PO BID Olmesartan/Hydrochlorothiazide [Benicar Hct 40-25 mg Tablet] 1 tab PO DAILY Discharge Medication List Aspirin 81 mg PO DAILY 07/18/14 [History] Atenolol 100 mg PO BID 07/18/14 [History] Simvastatin [Zocor] 20 mg PO HS 07/18/14 [History] glipiZIDE [Glipizide] 10 mg PO BID 07/18/14 [History] Carbidopa-Levodopa 25-100 mg [Sinemet 25-100 mg] 1 tab PO TID 09/30/17 [History] Insulin Glargine,Hum.rec.anlog [Lantus Solostar] 14 unit SQ BID 09/30/17 [ History] Oxybutynin Chloride 5 mg PO DAILY PRN 09/30/17 [History] metFORMIN HCL [Glucophage] 850 mg PO BID 09/30/17 [History] Ketorolac 0.5% Ophth Soln [Acular 0.5%] 1 drops BOTH EYES TID 06/08/18 [History] Pantoprazole [Protonix] 40 mg PO DAILY 06/08/18 [History] Potassium Citrate [Urocit-K] 15 meq PO DAILY 06/08/18 [History] Vitamin B-12 100mcg 100 mcg PO DAILY 06/08/18 [History] Docusate [Colace] 100 mg PO BID cap 06/12/18 [Rx] Polyethylene Glycol 3350 [Miralax] 17 gm PO DAILY powd.pack 06/12/18 [Rx] amLODIPine [Norvasc] 5 mg PO DAILY tab 06/12/18 [Rx] Follow up Appointment(s)/Referral(s): Tiff Merrill DO [Doctor of Osteopathic Medicine] - 06/16/18 (Patient may follow-up with Daniel Chaves PA-C or Dr. Jim Merrill at [facility] as previously scheduled on 06/16/2018 following discharge. ) Alberto Lehman DO [Primary Care Provider] - 1 Week (after discharge from [facility]) Sergio Jimenez DO [STAFF PHYSICIAN] - 1 Week Discharge Disposition: TRANSFER TO SNF/ECF
[2018-06-12] MEDS: POLYETHYLENE GLYCOL 3350 17 GM POWD.PACK PO SCH (12:31)
[2018-06-12] MEDS: DOCUSATE 100 MG CAP PO SCH ×2 (12:31→20:55)
[2018-06-12 17:40] LABS: Glucose,Whole Blood 181 mg/dL (75-99)
--- NOTE | 2018-06-12 18:51 | P.PN ---
Subjective Progress Note Date: 06/12/18 The patient is a 72-year-old woman who was admitted to the hospital with metabolic encephalopathy, rhabdomyolysis and recurrent falls. The patient has multiple medical problems including iron deficiency anemia Parkinson's disease hyperparathyroidism cervical spine stenosis and diabetes. She is less confused today. Swallowing seems to have improved. Her is at her bedside and also feels that she is improving today. Her tremors have calmed down according to her . Her Sinemet dose was put back to her original home dose. His occult therapy did come by to work with the patient today. SPECT to to go to rehab. Her MRI of the brain showed periventricular white matter disease likely on the basis of small vessel disease. There was no acute intracranial abnormality. Objective - Vital Signs Vital signs: Vital Signs Temp 97.1 F L 06/12/18 13:36 Pulse 66 06/12/18 13:36 Resp 18 06/12/18 13:36 BP 177/85 06/12/18 13:36 Pulse Ox 97 06/12/18 13:36 Intake & Output 06/11/18 06/12/18 06/12/18 18:59 06:59 18:59 Intake Total 800 1170 Output Total 1000 500 550 Balance -200 670 -550 Weight 92.5 kg Intake: Intake, IV Titration 600 850 Amount Sodium Chloride 0.9% 1, 600 850 000 ml @ 75 mls/hr IV . [id number] [facility] Rx#:[id number] Oral 200 320 Output: Urine 1000 500 550 Uretheral ([place]) 800 500 550 Other: Voiding Method Bedpan Indwelling Catheter Indwelling Catheter # Bowel Movements 1 - Constitutional General appearance: Present: obese - EENT Eyes: Present: EOMI, PERRLA ENT: Present: hearing grossly normal - Respiratory Respiratory: bilateral: CTA - Cardiovascular Rhythm: regular - Neurologic Neurologic: Present: CNII-XII intact - Musculoskeletal Musculoskeletal: Present: strength equal bilaterally - Psychiatric Psychiatric: Present: appropriate affect (She is awake alert and oriented to person and place. There is no dysarthria.) - Labs CBC & Chem 7: 06/11/18 07:27 06/11/18 07:27 Labs: Abnormal Lab Results - Last 24 Hours (Table) 06/11/18 06/12/18 06/12/18 Range/Units 20:35 07:09 09:31 POC Glucose (mg/dL) 214 H 101 H (75-99) mg/dL CK-MB (CK-2) 3.2 H (0.0-2.4) ng/mL 06/12/18 06/12/18 Range/Units 11:47 17:39 POC Glucose (mg/dL) 167 H 181 H (75-99) mg/dL CK-MB (CK-2) (0.0-2.4) ng/mL Microbiology - Last 24 Hours (Table) 06/08/18 10:30 Blood Culture - Preliminary Blood No Growth after 96 hours Assessment and Plan (1) Recurrent falls Current Visit: Yes Status: Acute Code(s): R29.6 - REPEATED FALLS SNOMED Code(s): 055392437 (2) Delirium due to general medical condition Current Visit: Yes Status: Acute SNOMED Code(s): 6606272 (3) Urinary tract infection Current Visit: Yes Status: Acute SNOMED Code(s): 06384376 (4) Parkinsons disease Current Visit: Yes Status: Chronic SNOMED Code(s): 12846326 (5) Rhabdomyolysis Current Visit: Yes Status: Acute SNOMED Code(s): 053075290 Plan: The patient is a 72-year-old woman admitted to the hospital with metabolic encephalopathy rhabdomyolysis and recurrent falls. Her mental status is improved slightly. The plan is for inpatient rehab
[2018-06-12] MEDS: ATORVASTATIN 10 MG TAB PO SCH (20:50)
[2018-06-12 21:08] LABS: Glucose,Whole Blood 151 mg/dL (75-99)
[2018-06-13 07:01] LABS: Glucose,Whole Blood 97 mg/dL (75-99)
[2018-06-13] MEDS: glipiZIDE 10 MG TAB PO SCH (07:28)
[2018-06-13] MEDS: SODIUM CHLORIDE 0.9% 1,000 ML IV SCH (07:30)
[2018-06-13] MEDS: ATENOLOL 50 MG TAB PO SCH (07:56)
[2018-06-13] MEDS: amLODIPine 5 MG TAB PO SCH (07:56)
[2018-06-13] MEDS: ASPIRIN 81 MG PO SCH (07:56)
[2018-06-13] MEDS: DOCUSATE 100 MG CAP PO SCH (07:57)
[2018-06-13] MEDS: CARBIDOPA-LEVODOPA 25-100 MG 1 EACH TAB PO SCH (07:57)
[2018-06-13] MEDS: CYANOCOBALAMIN 500 MCG TAB PO SCH (07:57)
[2018-06-13] MEDS: HEPARIN SODIUM,PORCINE 5,000 UNIT/ML 1 ML VIAL SQ SCH (07:57)
[2018-06-13] MEDS: INSULIN DETEMIR 100 UNIT/ML 10 ML VIAL SQ SCH (07:57)
[2018-06-13] MEDS: POLYETHYLENE GLYCOL 3350 17 GM POWD.PACK PO SCH (07:58)
[2018-06-13] MEDS: PANTOPRAZOLE 40 MG TABLET PO SCH (07:58)
[2018-06-13] MEDS: POTASSIUM CITRATE 5 MEQ TABLET.ER PO SCH (07:58)
[2018-06-13 10:14] VITALS: BP 163/76; PULSE 62; RESP 17; TEMP 97.8
[2018-06-13 11:16] LABS: Glucose,Whole Blood 95 mg/dL (75-99)
--- NOTE | 2018-06-14 12:42 | CDI ---
Last Revision, August 2017 Documentation Clarification Form Date: 06/14/18 From: Suzanne Mayer Phone: If you have a question regarding this query, please contact Kimberley Parker at [phone] between 8am and 5pm. Admit Date: 06/10/2018 2:33:00 PM Patient Name: Luisa Umaña Visit Number: [id number] Discharge Date: 06/13/18 ATTENTION: The Clinical Documentation Specialists (CDI) and [facility] Coding Staff appreciate your assistance in clarifying documentation. Please respond to the clarification below the line at the bottom and electronically sign. The CDI & [facility] Coding staff will review the response and follow-up if needed. Please note: Queries are made part of the Legal Health Record. If you have any questions, please contact the author of this message via ITS. Johan Luna MD Heart failure is listed in the past medical history in the ED note, H&P, discharge summary and all of the consult notes. History/Risk Factors: Patient was admitted for encephalopathy due to pardinson' s medications. Patient has a history of hypertensive cardiovascular disease, chronic kidney disease, Parkinson's, diabetes and is obese. Clinical Indicators: Patient was not having any symptoms during this admission. VS/Pulse OX: T. 98.3, P. 76, R. 18, Bp 173/113, Pulse ox. 93% BNP: Not tested. Echocardiogram Results: Overall left ventricular systolic function is mildly impaired with, EF between 45 - 50%. Chest X Ray: Expiratory rotated exam. Correlate for bronchitis, reactive airway disease, follow-up as indicated. Treatment: 20 mg Lasix PO daily PRN. Patieint did not receive any Lasix during this stay. In your professional opinion, can you please clarify the type of CHF if known? Systolic Heart Failure: Diastolic Heart Failure: Systolic & Diastolic Heart Failure: Unable to Determine Other, please specify MTDD
--- NOTE | 2018-06-14 12:56 | CDI ---
Last Revision, August 2017 Documentation Clarification Form Date: 06/14/18 From: Suzanne Mayer Phone: If you have a question regarding this query, please contact Kimberley Parker at [phone] between 8am and 5pm. Admit Date: 06/10/2018 2:33:00 PM Patient Name: Luisa Umaña Visit Number: [id number] Discharge Date: 06/13/18 ATTENTION: The Clinical Documentation Specialists (CDI) and [facility] Coding Staff appreciate your assistance in clarifying documentation. Please respond to the clarification below the line at the bottom and electronically sign. The CDI & [facility] Coding staff will review the response and follow-up if needed. Please note: Queries are made part of the Legal Health Record. If you have any questions, please contact the author of this message via ITS. Akbar León MD CKD is documented in the discharge summary as a final diagnosis. CKD creatinine at baseline no acute kindey injuries seen is documented in the 06/09 - 06/11 progress notes. History/Risk Factors: Patient was admitted with rhabdomyolysis and encephalopathy due to Parkinson's medication. The patieint also has a history of hypertension and diabetes. Clinical Indicators: No acute symptoms. Patient's creatinine at baseline at 1.8 - 2.0 Current BUN/CR/GFR: 30/2.00/29 Patients Baseline: CR: 1.8 - 2.00 IVF: Sodium Chloride 50 - 75 mls/hr In order to capture the severity of condition, please clarify if the condition signifies: CKD Stage 1 (GFR > 90) CKD Stage 2 (GFR 60-89) CKD Stage 3 (GFR 30-59) CKD Stage 4 (GFR 15-29) CKD Stage 5 (GFR <15) ESRD Other, please specify Unable to determine MTDD
== END 2018-06-13 12:39 | DRG 92 ==
LOC: EC 09:26 → 6SEL 13:48 → 5MS5E 06-09 18:06 → OBSVTOIN 06-10 14:33
PROVIDERS: ADMIT Internal Medicine; ATTEND Internal Medicine
DX: G92 Toxic encephalopathy (principal); I13.0 Hypertensive heart and chronic kidney disease with heart failure and stage 1 through stage 4 chronic kidney disease, or unspecified chronic kidney disease; M62.82 Rhabdomyolysis; N25.81 Secondary hyperparathyroidism of renal origin; T42.8X5A Adverse effect of antiparkinsonism drugs and other central muscle-tone depressants, initial encounter; D50.9 Iron deficiency anemia, unspecified; E11.22 Type 2 diabetes mellitus with diabetic chronic kidney disease; E11.51 Type 2 diabetes mellitus with diabetic peripheral angiopathy without gangrene; E53.8 Deficiency of other specified B group vitamins; E78.5 Hyperlipidemia, unspecified; E86.0 Dehydration; G20 Parkinson's disease; I08.3 Combined rheumatic disorders of mitral, aortic and tricuspid valves; I27.20 Pulmonary hypertension, unspecified; M06.9 Rheumatoid arthritis, unspecified; M46.92 Unspecified inflammatory spondylopathy, cervical region; M48.02 Spinal stenosis, cervical region; M50.123 Cervical disc disorder at C6-C7 level with radiculopathy; N18.3 Chronic kidney disease, stage 3 (moderate); R13.10 Dysphagia, unspecified; R82.71 Bacteriuria; R29.6 Repeated falls; R44.1 Visual hallucinations; M25.561 Pain in right knee; R77.9 Abnormality of plasma protein, unspecified; R33.9 Retention of urine, unspecified; E66.9 Obesity, unspecified; Z68.32 Body mass index [BMI] 32.0-32.9, adult; Z79.82 Long term (current) use of aspirin; Z79.4 Long term (current) use of insulin; Z79.899 Other long term (current) drug therapy; Z90.710 Acquired absence of both cervix and uterus; Z87.442 Personal history of urinary calculi; Z87.440 Personal history of urinary (tract) infections; Z86.19 Personal history of other infectious and parasitic diseases; Z96.651 Presence of right artificial knee joint; Z98.42 Cataract extraction status, left eye; Z98.41 Cataract extraction status, right eye; Z96.1 Presence of intraocular lens; Z88.8 Allergy status to other drugs, medicaments and biological substances; Z90.49 Acquired absence of other specified parts of digestive tract; Z83.3 Family history of diabetes mellitus; W19.XXXA Unspecified fall, initial encounter; Y92.009 Unspecified place in unspecified non-institutional (private) residence as the place of occurrence of the external cause; I50.9 Heart failure, unspecified
CPT/HCPCS: 36415; 70450; 70551; 71046; 80053; 81001; 82140; 82550; 82553; 82728; 83036; 83540; 83550; 83735; 84484; 85025; 85027; 85045; 85610; 85730; 87040; 87086; 93005; 93306; 96361; 96365; 99285

== ENCOUNTER → 2018-07-18 | Outpatient (CLI) | payer MEDICARE ==
[2018-07-18 19:38] LABS: T4, Free (Free Thyroxine) 1.3 ng/dL (0.80-1.80)
== END | disposition home or self-care (01) ==
LOC: LABWHC1 13:28
PROVIDERS: ATTEND Ophthalmology
DX: G47.00 Insomnia, unspecified (principal)
CPT/HCPCS: 36415; 84439; 84443; 84481

== ENCOUNTER → 2018-11-16 | Outpatient (CLI) | payer MEDICARE ==
[2018-11-16 18:08] LABS: Albumin 3.9 g/dL (3.80-4.90); Albumin/Globulin Ratio 1.5 (1.60-3.17); Anion Gap 5.2 mmol/L (4.00-12.00); Calcium 9.3 mg/dL (8.7-10.3); Carbon Dioxide 30.8 mmol/L (21.6-31.8); Globulin 2.6 g/dL (1.6-3.3); Potassium 4.1 mmol/L (3.5-5.5); Total Bilirubin 0.4 mg/dL (0.3-1.2); Total Protein 6.5 g/dL (6.2-8.2)
== END | disposition home or self-care (01) ==
LOC: LABWHC1 12:27
PROVIDERS: ATTEND Physician Assistant
DX: E11.49 Type 2 diabetes mellitus with other diabetic neurological complication (principal); E11.65 Type 2 diabetes mellitus with hyperglycemia
CPT/HCPCS: 36415; 80053; 80061; 82043; 82570; 84443

== ENCOUNTER 2019-02-03 21:43 | Emergency (ER) | payer MEDICARE ==
[2019-02-03 21:51] VITALS: RESP 18; TEMP 97.8
[2019-02-03] MEDS ORDERED: ATENOLOL 50 MG TAB PO STA (22:19)
[2019-02-03 22:53] LABS: Basophils % (A) 0 %; Eosinophils # (A) 0.1 k/uL (0-0.7); Eosinophils % (A) 1 %; HGB 11.8 gm/dL (11.4-16.0); Hypochromasia Moderate; Lymphocytes # (A) 2.5 k/uL (1.0-4.8); Lymphocytes % (A) 28 %; MCH 24.3 pg (25.0-35.0); MCHC 30.3 g/dL (31.0-37.0); MCV 80.3 fL (80.0-100.0); Mean Platelet Volume 7.3; Monocytes # (A) 0.7 k/uL (0-1.0); Monocytes % (A) 8 %; Neutrophils # (A) 5.5 k/uL (1.3-7.7); Neutrophils % (A) 61 %; Platelet Count 350 k/uL (150-450); RBC 4.85 m/uL (3.80-5.40); RDW 15.3 % (11.5-15.5)
--- NOTE | 2019-02-03 22:53 | XR ---
EXAM: XR Chest, 2 Views CLINICAL HISTORY: ITS.REASON XR Reason: difficulty breathing TECHNIQUE: Frontal and lateral views of the chest. COMPARISON: 06/08/18 FINDINGS: Lungs: Unremarkable. No consolidation. Pleural space: Unremarkable. No pneumothorax. Heart: Unremarkable. No cardiomegaly. Mediastinum: Unremarkable. Bones/joints: Unremarkable. IMPRESSION: No acute findings.
[2019-02-03 23:04] LABS: Calcium 9.3 mg/dL (8.4-10.2); Total Bilirubin 0.6 mg/dL (0.2-1.3); Total Protein 7.6 g/dL (6.3-8.2)
[2019-02-03 23:14] LABS: INR 0.9 (<1.2); Partial Thromboplastin Time 22.8 sec (22.0-30.0); Prothrombin Time 9.6 sec (9.0-12.0)
[2019-02-04] MEDS ORDERED: hydrALAZINE HCL 20 MG/ML 1 ML VIAL IVP STA (00:59)
[2019-02-04 01:19] LABS: Appearance,Urine Clear (Clear); Bacteria,Urine Rare /hpf; Bilirubin,Urine Negative (Negative); Blood,Urine Trace (Negative); Color,Urine Light Yellow; Glucose,Urine (UA) Negative (Negative); Hyaline Casts,Urine 3 /lpf (0-2); Ketones,Urine Negative (Negative); Leukocyte Esterase,Urine Moderate (Negative); Mucus,Urine Rare /hpf; Nitrite,Urine Negative (Negative); Protein,Urine 1+ (Negative); RBC,Urine 2 /hpf (0-5); Specific Gravity,Urine 1.017 (1.001-1.035); Squamous Epithelial Cell,Urine 1 /hpf (0-4); Urobilinogen,Urine <2.0 mg/dL (<2.0); WBC,Urine 38 /hpf (0-5)
[2019-02-04] MEDS ORDERED: CEPHALEXIN 500MG STARTER PACK 4 CAP BTL PO STA (01:31)
--- NOTE | 2019-02-04 01:33 | ED ---
General Adult HPI - General Chief complaint: Dizziness Stated complaint: Hypertensive Time Seen by Provider: 02/03/19 22:04 Source: patient Mode of arrival: wheelchair Limitations: no limitations - History of Present Illness Initial comments: 73-year-old female patient presents the emergency department today reporting feeling unwell. When asked what she means by that she states "no I just don't feel good". Patient states that she has been feeling this way throughout the day. Patient states she did take her blood pressure several times before coming in and had elevated levels in the 190s systolic over 90s diastolic. Patient states that she does take blood pressure medication which usually keeps her blood pressure under control. Patient states that she does have a tremor which seems little worse today. She denies any dizziness, weakness, chest pain, shortness of breath, nausea, vomiting, abdominal pain, constipation, diarrhea. Denies any hematuria, dysuria, urinary frequency, urinary urgency. Patient denies any recent rash, fever, chills, back pain, numbness, tingling, dizziness, weakness, headache, visual changes, or any other complaints. - Related Data Home Medications Medication Instructions Recorded Confirmed Aspirin 81 mg PO DAILY 07/18/14 06/08/18 Atenolol 100 mg PO BID 07/18/14 06/08/18 Simvastatin [Zocor] 20 mg PO HS 07/18/14 06/08/18 glipiZIDE [Glipizide] 10 mg PO BID 07/18/14 06/08/18 Carbidopa-Levodopa 25-100 mg 1 tab PO TID 09/30/17 06/08/18 [Sinemet 25-100 mg] Insulin Glargine,Hum.rec.anlog 14 unit SQ BID 09/30/17 06/08/18 [Lantus Solostar] Oxybutynin Chloride 5 mg PO DAILY PRN 09/30/17 06/08/18 metFORMIN HCL [Glucophage] 850 mg PO BID 09/30/17 06/08/18 Ketorolac 0.5% Ophth Soln [Acular 1 drops BOTH EYES TID 06/08/18 06/08/18 0.5%] Pantoprazole [Protonix] 40 mg PO DAILY 06/08/18 06/08/18 Potassium Citrate [Urocit-K] 15 meq PO DAILY 06/08/18 06/08/18 Vitamin B-12 100mcg 100 mcg PO DAILY 06/08/18 06/08/18 Previous Rx's Medication Instructions Recorded Docusate [Colace] 100 mg PO BID cap 06/12/18 Polyethylene Glycol 3350 [Miralax] 17 gm PO DAILY powd.pack 06/12/18 amLODIPine [Norvasc] 5 mg PO DAILY tab 06/12/18 Cephalexin [Keflex] 500 mg PO Q6H #28 cap 02/04/19 Allergies Allergy/AdvReac Type Severity Reaction Status Date / Time gabapentin Allergy Hallucinati Verified 02/03/19 21:51 ons Review of Systems ROS Statement: Those systems with pertinent positive or pertinent negative responses have been documented in the HPI. ROS Other: All systems not noted in ROS Statement are negative. Past Medical History Past Medical History: Heart Failure, Diabetes Mellitus, Hyperlipidemia, Hypertension, Pneumonia, Rheumatoid Arthritis (RA) Additional Past Medical History / Comment(s): tremors, renal lithiasis, hemor rhoids(sx done), "has had problems w/low magnesium.anemia. per posue pt had past cancer "uterine or cervical-had hysterectomy". it was previously charted that pt had hx of ra and cfh spouse not able to verify this, History of Any Multi-Drug Resistant Organisms: ESBL Date of last positivie culture/infection: 05/11/18 MDRO Source:: ESBL URINE Past Surgical History: Appendectomy, Hysterectomy, Orthopedic Surgery, Tonsillectomy Additional Past Surgical History / Comment(s): rt total knee repalcement, cataracts, hemmorroidectomy, colonoscopy Past Anesthesia/Blood Transfusion Reactions: No Reported Reaction Additional Past Anesthesia/Blood Transfusion Reaction / Comment(s): per psouse- pt never receieved any blood Past Psychological History: No Psychological Hx Reported Smoking Status: Never smoker Past Alcohol Use History: None Reported Past Drug Use History: None Reported - Past Family History Mother Family Medical History: Diabetes Mellitus Father Additional Family Medical History / Comment(s): brain anuerysm General Exam Limitations: no limitations General appearance: alert, in no apparent distress, other (Physical well- developed, well-nourished adult female patient in no acute distress. Vital signs upon presentation are temperature 97.8F, pulse 78, respirations 18, blood pressure 200/93, pulse ox 98% on room air.) Eye exam: Present: normal appearance, PERRL, EOMI. Absent: scleral icterus, conjunctival injection, periorbital swelling ENT exam: Present: normal exam, normal oropharynx, mucous membranes moist Respiratory exam: Present: normal lung sounds bilaterally. Absent: respiratory distress, wheezes, rales, rhonchi, stridor Cardiovascular Exam: Present: regular rate, normal rhythm, normal heart sounds. Absent: systolic murmur, diastolic murmur, rubs, gallop, clicks GI/Abdominal exam: Present: soft, normal bowel sounds. Absent: distended, tenderness, guarding, rebound, rigid Neurological exam: Present: alert, oriented X3, CN II-XII intact Psychiatric exam: Present: normal affect, normal mood Skin exam: Present: warm, dry, intact, normal color. Absent: rash Course Vital Signs 02/03/19 02/04/19 02/04/19 21:47 00:54 01:46 Temperature 97.8 F Pulse Rate 78 69 70 Respiratory 18 18 18 Rate Blood Pressure 200/93 212/95 145/78 O2 Sat by Pulse 98 100 98 Oximetry EKG Findings - EKG Comments: EKG Findings:: EKG obtained at 2221 shows normal sinus rhythm with a ventricular rate of 73, AL interval 142, QRS duration 80, QT 394, QTC 434. No evidence of ST elevation or depression. Medical Decision Making - Medical Decision Making 73-year-old female patient presented to the emergency department today for evaluation of not feeling well. Patient is also reporting elevated blood pressure. Physical examination is unremarkable. Labs reviewed and did reveal positive urinary tract infection. Remainder of labs are unremarkable. We did control blood pressure utilizing medication. I did discuss findings and results with the patient. We will discharge at this time to follow-up with her primary care physician she'll be treated for UTI with Keflex. Return parameters discussed in detail. She verbalizes understanding and agrees with this plan. - Lab Data Result diagrams: 02/03/19 22:31 02/03/19 22:31 Lab Results 02/03/19 02/03/19 02/03/19 Range/Units 22:31 22:31 22:31 WBC 9.0 (3.8-10.6) k/uL RBC 4.85 (3.80-5.40) m/uL Hgb 11.8 (11.4-16.0) gm/dL Hct 39.0 (34.0-46.0) % MCV 80.3 (80.0-100.0) fL MCH 24.3 L (25.0-35.0) pg MCHC 30.3 L (31.0-37.0) g/dL RDW 15.3 (11.5-15.5) % Plt Count 350 (150-450) k/uL Neutrophils % 61 % Lymphocytes % 28 % Monocytes % 8 % Eosinophils % 1 % Basophils % 0 % Neutrophils # 5.5 (1.3-7.7) k/uL Lymphocytes # 2.5 (1.0-4.8) k/uL Monocytes # 0.7 (0-1.0) k/uL Eosinophils # 0.1 (0-0.7) k/uL Basophils # 0.0 (0-0.2) k/uL Hypochromasia Moderate PT 9.6 (9.0-12.0) sec INR 0.9 (<1.2) APTT 22.8 (22.0-30.0) sec Sodium 141 (137-145) mmol/L Potassium 5.0 (3.5-5.1) mmol/L Chloride 103 (98-107) mmol/L Carbon Dioxide 28 (22-30) mmol/L Anion Gap 10 mmol/L BUN 25 H (7-17) mg/dL Creatinine 1.14 H (0.52-1.04) mg/dL Est GFR (CKD-EPI)AfAm 56 (>60 ml/min/1.73 sqM) Est GFR (CKD-EPI)NonAf 49 (>60 ml/min/1.73 sqM) Glucose 190 H (74-99) mg/dL Calcium 9.3 (8.4-10.2) mg/dL Total Bilirubin 0.6 (0.2-1.3) mg/dL AST 37 H (14-36) U/L ALT 15 (9-52) U/L Alkaline Phosphatase 42 (38-126) U/L Troponin I (0.000-0.034) ng/mL Total Protein 7.6 (6.3-8.2) g/dL Albumin 4.0 (3.5-5.0) g/dL Urine Color Urine Appearance (Clear) Urine pH (5.0-8.0) Ur Specific Wheatley (1.001-1.035) Urine Protein (Negative) Urine Glucose (UA) (Negative) Urine Ketones (Negative) Urine Blood (Negative) Urine Nitrite (Negative) Urine Bilirubin (Negative) Urine Urobilinogen (<2.0) mg/dL Ur Leukocyte Esterase (Negative) Urine RBC (0-5) /hpf Urine WBC (0-5) /hpf Ur Squamous Epith Cells (0-4) /hpf Urine Bacteria (None) /hpf Hyaline Casts (0-2) /lpf Urine Mucus (None) /hpf 02/03/19 02/04/19 Range/Units 22:31 00:45 WBC (3.8-10.6) k/uL RBC (3.80-5.40) m/uL Hgb (11.4-16.0) gm/dL Hct (34.0-46.0) % MCV (80.0-100.0) fL MCH (25.0-35.0) pg MCHC (31.0-37.0) g/dL RDW (11.5-15.5) % Plt Count (150-450) k/uL Neutrophils % % Lymphocytes % % Monocytes % % Eosinophils % % Basophils % % Neutrophils # (1.3-7.7) k/uL Lymphocytes # (1.0-4.8) k/uL Monocytes # (0-1.0) k/uL Eosinophils # (0-0.7) k/uL Basophils # (0-0.2) k/uL Hypochromasia PT (9.0-12.0) sec INR (<1.2) APTT (22.0-30.0) sec Sodium (137-145) mmol/L Potassium (3.5-5.1) mmol/L Chloride (98-107) mmol/L Carbon Dioxide (22-30) mmol/L Anion Gap mmol/L BUN (7-17) mg/dL Creatinine (0.52-1.04) mg/dL Est GFR (CKD-EPI)AfAm (>60 ml/min/1.73 sqM) Est GFR (CKD-EPI)NonAf (>60 ml/min/1.73 sqM) Glucose (74-99) mg/dL Calcium (8.4-10.2) mg/dL Total Bilirubin (0.2-1.3) mg/dL AST (14-36) U/L ALT (9-52) U/L Alkaline Phosphatase (38-126) U/L Troponin I <0.012 (0.000-0.034) ng/mL Total Protein (6.3-8.2) g/dL Albumin (3.5-5.0) g/dL Urine Color Light Yellow Urine Appearance Clear (Clear) Urine pH 6.0 (5.0-8.0) Ur Specific Wheatley 1.017 (1.001-1.035) Urine Protein 1+ H (Negative) Urine Glucose (UA) Negative (Negative) Urine Ketones Negative (Negative) Urine Blood Trace H (Negative) Urine Nitrite Negative (Negative) Urine Bilirubin Negative (Negative) Urine Urobilinogen <2.0 (<2.0) mg/dL Ur Leukocyte Esterase Moderate H (Negative) Urine RBC 2 (0-5) /hpf Urine WBC 38 H (0-5) /hpf Ur Squamous Epith Cells 1 (0-4) /hpf Urine Bacteria Rare H (None) /hpf Hyaline Casts 3 H (0-2) /lpf Urine Mucus Rare H (None) /hpf - Radiology Data Radiology results: report reviewed, image reviewed Two-view x-ray of the chest is obtained. Report was reviewed in its entirety. Impression by Dr. Espinoza shows no acute findings. Disposition Clinical Impression: Urinary tract infection Disposition: HOME SELF-CARE Condition: Good Instructions (If sedation given, give patient instructions): Urinary Tract Infection in Women (ED), Hypertension (ED) Additional Instructions: Increase fluids. Complete antibiotic prescription in full. Follow-up with your primary care physician for recheck and evaluation of your blood pressure medication. Return to the emergency department immediately for any new, worsening, or concerning symptoms. Prescriptions: Cephalexin [Keflex] 500 mg PO Q6H #28 cap Is patient prescribed a controlled substance at d/c from ED?: No Referrals: Alberto Lehman DO [Primary Care Provider] - 1-2 days Time of Disposition: 01:33
[2019-02-04 02:21] VITALS: BP 145/78; PULSE 70
== END 2019-02-04 01:46 | disposition home or self-care (01) ==
LOC: EC 21:43
DX: N39.0 Urinary tract infection, site not specified (principal); I11.0 Hypertensive heart disease with heart failure; I50.9 Heart failure, unspecified; E11.9 Type 2 diabetes mellitus without complications; E78.5 Hyperlipidemia, unspecified; Z79.4 Long term (current) use of insulin; Z79.82 Long term (current) use of aspirin; Z79.899 Other long term (current) drug therapy; Z88.8 Allergy status to other drugs, medicaments and biological substances
CPT/HCPCS: 36415; 93005; 80053; 84484; 85025; 85610; 85730; 81001; 71046; 99284; 96374; J0360

== ENCOUNTER 2019-04-08 04:50 | Emergency (ER) | payer MEDICARE ==
[2019-04-08] MEDS ORDERED: HYDROmorphone 1 MG/ML 1 ML SYRINGE IM STA (04:53)
[2019-04-08 04:55] VITALS: RESP 18
[2019-04-08] MEDS ORDERED: SODIUM CHLORIDE 0.9% 1,000 ML IV STA (05:23)
--- NOTE | 2019-04-08 05:24 | ED ---
Fall HPI - General Chief Complaint: Fall Stated Complaint: Fall Time Seen by Provider: 04/08/19 04:53 Source: patient, EMS, RN notes reviewed, old records reviewed Mode of arrival: EMS - History of Present Illness Initial Comments: This is a 73-year-old female the ER status post fall. Patient significant fall from standing landing on her right knee was severe right knee pain inability and late after, patient's brought in by EMS. Patient denies any other complaints of pain or injury, no blood thinners, no head trauma neck pain, no shortness with chest and abdominal pain. Follows mechanical in nature. 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 Fall Witnessed: no Place Fall Occurred: home Loss of Consciousness: none Prolonged Down Time?: yes Symptoms Prior to Fall: none Location - Extremities: Right: Knee Severity: severe Severity scale (1-10): 9 Quality: stabbing Context: tripped/slipped Associated Symptoms: denies - Related Data Home Medications Medication Instructions Recorded Confirmed Aspirin 81 mg PO DAILY 07/18/14 06/08/18 Atenolol 100 mg PO BID 07/18/14 06/08/18 Simvastatin [Zocor] 20 mg PO HS 07/18/14 06/08/18 glipiZIDE [Glipizide] 10 mg PO BID 07/18/14 06/08/18 Carbidopa-Levodopa 25-100 mg 1 tab PO TID 09/30/17 06/08/18 [Sinemet 25-100 mg] Insulin Glargine,Hum.rec.anlog 14 unit SQ BID 09/30/17 06/08/18 [Lantus Solostar] Oxybutynin Chloride 5 mg PO DAILY PRN 09/30/17 06/08/18 metFORMIN HCL [Glucophage] 850 mg PO BID 09/30/17 06/08/18 Ketorolac 0.5% Ophth Soln [Acular 1 drops BOTH EYES TID 06/08/18 06/08/18 0.5%] Pantoprazole [Protonix] 40 mg PO DAILY 06/08/18 06/08/18 Potassium Citrate [Urocit-K] 15 meq PO DAILY 06/08/18 06/08/18 Vitamin B-12 100mcg 100 mcg PO DAILY 06/08/18 06/08/18 Previous Rx's Medication Instructions Recorded Docusate [Colace] 100 mg PO BID cap 06/12/18 Polyethylene Glycol 3350 [Miralax] 17 gm PO DAILY powd.pack 06/12/18 amLODIPine [Norvasc] 5 mg PO DAILY tab 06/12/18 Cephalexin [Keflex] 500 mg PO Q6H #28 cap 02/04/19 Allergies Allergy/AdvReac Type Severity Reaction Status Date / Time gabapentin Allergy Hallucinati Verified 02/03/19 21:51 ons Review of Systems ROS Statement: Those systems with pertinent positive or pertinent negative responses have been documented in the HPI. ROS Other: All systems not noted in ROS Statement are negative. Past Medical History Past Medical History: Heart Failure, Diabetes Mellitus, Hyperlipidemia, Hypertension, Pneumonia, Rheumatoid Arthritis (RA) Additional Past Medical History / Comment(s): tremors, renal lithiasis, hemorrhoids(sx done), "has had problems w/low magnesium.anemia. per posue pt had past cancer "uterine or cervical-had hysterectomy". it was previously charted that pt had hx of ra and cfh spouse not able to verify this, History of Any Multi-Drug Resistant Organisms: ESBL Date of last positivie culture/infection: 05/11/18 MDRO Source:: ESBL URINE Past Surgical History: Appendectomy, Hysterectomy, Orthopedic Surgery, Tonsillectomy Additional Past Surgical History / Comment(s): rt total knee repalcement, cataracts, hemmorroidectomy, colonoscopy Past Anesthesia/Blood Transfusion Reactions: No Reported Reaction Additional Past Anesthesia/Blood Transfusion Reaction / Comment(s): per psouse- pt never receieved any blood Past Psychological History: No Psychological Hx Reported Smoking Status: Never smoker Past Alcohol Use History: None Reported Past Drug Use History: None Reported - Past Family History Mother Family Medical History: Diabetes Mellitus Father Additional Family Medical History / Comment(s): brain anuerysm General Exam - General Exam Comments Initial Comments: Significant pain, deformity right lower extremity, positive dorsalis pedis and anterior tibialis pulse, also noted by Doppler General appearance: alert, in no apparent distress Head exam: Present: atraumatic, normocephalic, normal inspection Eye exam: Present: normal appearance, PERRL, EOMI. Absent: scleral icterus, conjunctival injection, periorbital swelling ENT exam: Present: normal exam, mucous membranes moist Neck exam: Present: normal inspection. Absent: tenderness, meningismus, lymphadenopathy Respiratory exam: Present: normal lung sounds bilaterally. Absent: respiratory distress, wheezes, rales, rhonchi, stridor Cardiovascular Exam: Present: regular rate, normal rhythm, normal heart sounds. Absent: systolic murmur, diastolic murmur, rubs, gallop, clicks GI/Abdominal exam: Present: soft, normal bowel sounds. Absent: distended, tenderness, guarding, rebound, rigid Extremities exam: Present: normal inspection, full ROM, normal capillary refill. Absent: tenderness, pedal edema, joint swelling, calf tenderness Back exam: Present: normal inspection Neurological exam: Present: alert, oriented X3, CN II-XII intact Psychiatric exam: Present: normal affect, normal mood Skin exam: Present: warm, dry, intact, normal color. Absent: rash Course Vital Signs 04/08/19 04/08/19 04:51 05:03 Temperature 97.4 F L Pulse Rate 64 65 Respiratory 18 18 Rate Blood Pressure 138/113 183/82 O2 Sat by Pulse 95 97 Oximetry - Reevaluation(s) Reevaluation #1: 04/08/19 05:37 Adequate record is reviewed Reevaluation #2: 04/08/19 05:37 Pain is controlled Reevaluation #3: 04/08/19 05:37 Spoke with [facility] Dr. Simons acceptable for transfer Medical Decision Making - Medical Decision Making 73 female the ER for evaluation status post fall, patient has right distal femur fracture proximal to prosthetic knee replacement. Patient be transferred to [facility] for traumatic surgery evaluation and treatment - Radiology Data Radiology results: report reviewed (X-ray right knee is positive for distal femur fracture displaced and angulated), image reviewed Disposition Clinical Impression: Fall, Recurrent falls, Closed fracture of right distal femur Disposition: OTHER INSTITUTION NOT DEFINED Condition: Fair Is patient prescribed a controlled substance at d/c from ED?: No Referrals: Alberto Lehman DO [Primary Care Provider] - 1-2 days - Out of Hospital Transfer - Req. Specs Out of Hospital Transfer - Requested Specifics: Other Emergency Center ([facility]
--- NOTE | 2019-04-08 05:40 | XR ---
EXAM: XR Right Knee, 3 views CLINICAL HISTORY: ITS.REASON XR Reason: Pain TECHNIQUE: Three views of the right knee. COMPARISON: 06/08/18 Impression: Bones/joints: Significantly displaced fracture of the distal femur. Knee arthroplasty hardware is intact. Soft tissues: Lipohemarthrosis.
--- NOTE | 2019-04-08 05:40 | XR ---
EXAM: XR Chest, 1 View CLINICAL HISTORY: ITS.REASON XR Reason: FALL TECHNIQUE: Frontal view of the chest. COMPARISON: 02/03/19 FINDINGS: Lungs: No consolidation or mass. Pleural space: No acute findings Heart: cardiomegaly. Mediastinum: Unremarkable. Bones/joints: No acute findings. IMPRESSION: No acute cardiopulmonary process. Cardiomegaly.
[2019-04-08 05:54] VITALS: BP 199/87; PULSE 62; TEMP 98.2
[2019-04-08 06:02] LABS: Basophils % (A) 0 %; Eosinophils # (A) 0.2 k/uL (0-0.7); Eosinophils % (A) 1 %; HCT 36.5 % (34.0-46.0); HGB 11.2 gm/dL (11.4-16.0); Hypochromasia Slight; Lymphocytes # (A) 2.4 k/uL (1.0-4.8); Lymphocytes % (A) 20 %; MCH 25.5 pg (25.0-35.0); MCHC 30.8 g/dL (31.0-37.0); MCV 82.7 fL (80.0-100.0); Mean Platelet Volume 6.9; Monocytes # (A) 0.8 k/uL (0-1.0); Monocytes % (A) 6 %; Neutrophils # (A) 8.7 k/uL (1.3-7.7); Neutrophils % (A) 71 %; Platelet Count 261 k/uL (150-450); RBC 4.41 m/uL (3.80-5.40); RDW 14.5 % (11.5-15.5); WBC 12.2 k/uL (3.8-10.6)
[2019-04-08 06:15] LABS: Albumin 3.5 g/dL (3.5-5.0); Calcium 9.2 mg/dL (8.4-10.2); Potassium 4.1 mmol/L (3.5-5.1); Total Bilirubin 0.3 mg/dL (0.2-1.3); Total Protein 6.6 g/dL (6.3-8.2)
[2019-04-08 06:34] LABS: INR 0.9 (<1.2); Partial Thromboplastin Time 22.2 sec (22.0-30.0); Prothrombin Time 9.6 sec (9.0-12.0)
== END 2019-04-08 06:35 | disposition other institution (70) ==
LOC: EC 04:50
DX: S72.401A Unspecified fracture of lower end of right femur, initial encounter for closed fracture (principal); R29.6 Repeated falls; I11.0 Hypertensive heart disease with heart failure; I50.9 Heart failure, unspecified; E11.9 Type 2 diabetes mellitus without complications; E78.5 Hyperlipidemia, unspecified; Z79.82 Long term (current) use of aspirin; Z79.4 Long term (current) use of insulin; Z79.899 Other long term (current) drug therapy; Z88.8 Allergy status to other drugs, medicaments and biological substances; Z96.651 Presence of right artificial knee joint; W19.XXXA Unspecified fall, initial encounter
CPT/HCPCS: 36415; 80053; 85025; 85610; 85730; 73560; 71045; 99285; 96360; 96372; J1170

== ENCOUNTER → 2020-02-21 | Outpatient (CLI) | payer MEDICARE ==
[2020-02-21 19:59] LABS: African American GFR (CKD) 36.9 (60.0-200.0); Albumin 3.9 g/dL (3.80-4.90); Albumin/Globulin Ratio 1.5 (1.60-3.17); Anion Gap 12.5 mmol/L (4.00-12.00); BUN/Creat Ratio 21.25 Ratio (12.00-20.00); Calcium 9.4 mg/dL (8.7-10.3); Carbon Dioxide 27.5 mmol/L (21.6-31.8); Chol/HDL Ratio 3.87; Globulin 2.6 g/dL (1.6-3.3); LDL Cholesterol,Calculated 68.2 mg/dL (0.0-131.0); Non-African American GFR(CKD) 31.9 (60.0-200.0); Potassium 4.8 mmol/L (3.5-5.5); Total Bilirubin 0.5 mg/dL (0.2-1.2); Total Protein 6.5 g/dL (6.2-8.2); VLDL Calculation 40.8 mg/dL (5.00-40.00)
[2020-02-22 05:57] LABS: Urine Creatinine 110.5 mg/dL
== END | disposition home or self-care (01) ==
LOC: LABWHC1 12:58
PROVIDERS: ATTEND Internal Medicine Endocrinology, Diabetes & Metabolism
DX: E11.40 Type 2 diabetes mellitus with diabetic neuropathy, unspecified (principal)
CPT/HCPCS: 36415; 80053; 80061; 82043; 82570; 84443

== ENCOUNTER → 2020-03-06 | Outpatient (CLI) | payer MEDICARE ==
[2020-03-07 00:37] LABS: Hemoglobin A1C 10.1 % (4.0-6.0)
== END | disposition home or self-care (01) ==
LOC: LABWHC1 13:36
PROVIDERS: ATTEND Physician Assistant
DX: E11.40 Type 2 diabetes mellitus with diabetic neuropathy, unspecified (principal)
CPT/HCPCS: 36415; 83036

== ENCOUNTER → 2020-10-08 | Outpatient (CLI) | payer MEDICARE ==
[2020-10-09 00:04] LABS: C-Peptide 1.61 ng/mL (0.81-3.85)
[2020-10-09 01:37] LABS: African American GFR (CKD) 43.1 (60.0-200.0); Albumin 4.1 g/dL (3.80-4.90); Albumin/Globulin Ratio 1.71 (1.60-3.17); Anion Gap 11.2 mmol/L (4.00-12.00); BUN/Creat Ratio 24.29 Ratio (12.00-20.00); Calcium 9.5 mg/dL (8.7-10.3); Carbon Dioxide 28.8 mmol/L (21.6-31.8); Globulin 2.4 g/dL (1.6-3.3); Non-African American GFR(CKD) 37.2 (60.0-200.0); Potassium 4.2 mmol/L (3.5-5.5); Total Bilirubin 0.4 mg/dL (0.2-1.2); Total Protein 6.5 g/dL (6.2-8.2)
== END | disposition home or self-care (01) ==
LOC: LABWHC1 13:13
PROVIDERS: ATTEND Internal Medicine
DX: E11.40 Type 2 diabetes mellitus with diabetic neuropathy, unspecified (principal); N18.30 Chronic kidney disease, stage 3 unspecified
CPT/HCPCS: 36415; 80053; 84681

== ENCOUNTER → 2020-11-05 | Outpatient (CLI) | payer MEDICARE ==
[2020-11-05 23:48] LABS: Hemoglobin A1C 8.4 % (4.0-6.0)
[2020-11-06 01:05] LABS: Albumin 3.9 g/dL (3.80-4.90); Albumin/Globulin Ratio 1.39 (1.60-3.17); Anion Gap 10.6 mmol/L (4.00-12.00); BUN/Creat Ratio 18.5 Ratio (12.00-20.00); Calcium 9.9 mg/dL (8.7-10.3); Carbon Dioxide 24.4 mmol/L (21.6-31.8); Chol/HDL Ratio 3.21; Globulin 2.8 g/dL (1.6-3.3); LDL Cholesterol,Calculated 74.8 mg/dL (0.0-131.0); Non-African American GFR(CKD) 24.2 (60.0-200.0); Potassium 5.3 mmol/L (3.5-5.5); Total Bilirubin 0.4 mg/dL (0.3-1.2); Total Protein 6.7 g/dL (6.2-8.2); VLDL Calculation 20.2 mg/dL (5.00-40.00)
[2020-11-06 01:20] LABS: Urine Creatinine 92.1 mg/dL
== END | disposition home or self-care (01) ==
LOC: LABWHC1 13:11
PROVIDERS: ATTEND Physician Assistant
DX: E11.40 Type 2 diabetes mellitus with diabetic neuropathy, unspecified (principal)
CPT/HCPCS: 36415; 80053; 80061; 82043; 82570; 83036; 84443

== ENCOUNTER → 2021-04-08 | Outpatient (CLI) | payer MEDICARE ==
--- NOTE | 2021-04-09 09:58 | XR ---
EXAMINATION TYPE: XR abdomen 1V DATE OF EXAM: 04/08/2021 COMPARISON: 02/07/2018 HISTORY: Constipation TECHNIQUE: One view abdominal series FINDINGS: The osseous structures are intact. The bowel gas pattern is nonspecific. Generative changes spine. C alcifications in the pelvis. Arthropathy of the hips. Hypertrophic and degenerative change of the spi ne. Atherosclerotic change aorta. IMPRESSION: 1. Nonspecific abdomen.
== END | disposition home or self-care (01) ==
LOC: RADXRMAIN 17:54
PROVIDERS: ATTEND Family Medicine
DX: K59.00 Constipation, unspecified (principal)
CPT/HCPCS: 74018

== ENCOUNTER → 2021-05-20 | Outpatient (CLI) | payer MEDICARE ==
[2021-05-21 17:45] LABS: African American GFR (CKD) 43.1 (60.0-200.0); Albumin/Globulin Ratio 1.43 (1.60-3.17); Anion Gap 15.7 mmol/L (4.00-12.00); BUN/Creat Ratio 18.57 Ratio (12.00-20.00); Calcium 9.3 mg/dL (8.7-10.3); Carbon Dioxide 26.3 mmol/L (21.6-31.8); Chol/HDL Ratio 3.41; Globulin 2.8 g/dL (1.6-3.3); LDL Cholesterol,Calculated 82.2 mg/dL (0.0-131.0); Non-African American GFR(CKD) 37.2 (60.0-200.0); Potassium 4.3 mmol/L (3.5-5.5); Total Bilirubin 0.5 mg/dL (0.3-1.2); Total Protein 6.8 g/dL (6.2-8.2); VLDL Calculation 23.8 mg/dL (5.00-40.00)
== END | disposition home or self-care (01) ==
LOC: LABWHC1 13:44
PROVIDERS: ATTEND Physician Assistant
DX: E78.2 Mixed hyperlipidemia (principal); I10 Essential (primary) hypertension; E11.40 Type 2 diabetes mellitus with diabetic neuropathy, unspecified
CPT/HCPCS: 36415; 80053; 80061; 82043; 82570; 84443

== ENCOUNTER → 2021-07-07 | Outpatient (CLI) | payer MEDICARE ==
--- NOTE | 2021-07-09 14:31 | MM ---
Reason for exam: screening (asymptomatic). Last mammogram was performed 4 years and 8 months ago. History: Patient is postmenopausal and has history of endometrial cancer at age 42. Took estrogen for 19 years beginning at age 42. Physical Findings: A clinical breast exam by your physician is recommended on an annual basis and results should be correlated with mammographic findings. MG 3D Screening Mammo W/Cad Bilateral CC and MLO view(s) were taken. XCCL view(s) were taken of the right breast. Prior study comparison: October 20, 2016, bilateral MG 3d screening mammo w/cad. October 16, 2015, bilateral MG screening mammo w CAD. There are scattered fibroglandular densities. There is chronic nodularity in the left subareolar breast. Benign secretory calcifications on the right. No significant changes when compared with prior studies. ASSESSMENT: Benign, BI-RAD 2 RECOMMENDATION: Routine screening mammogram of both breasts in 1 year.
== END | disposition home or self-care (01) ==
LOC: RADMAMWWP 11:14
PROVIDERS: ATTEND Family Medicine
DX: Z12.31 Encounter for screening mammogram for malignant neoplasm of breast (principal)
CPT/HCPCS: 77063; 77067

== ENCOUNTER → 2021-11-03 | Outpatient (CLI) | payer MEDICARE | END | disposition home or self-care (01) | LOC: LABWHC1 11:36 | PROVIDERS: ATTEND Family Medicine | DX: E87.5 Hyperkalemia (principal) | CPT/HCPCS: 36415; 84132 ==

== ENCOUNTER 2021-11-10 11:50 | Inpatient (IN) | payer MEDICARE ==
--- NOTE | 2021-11-10 13:29 | ED ---
General Adult HPI <Balwinder Antonio - Last Filed: 11/10/21 15:08> - General Source: patient, family, RN notes reviewed, old records reviewed Mode of arrival: ambulatory Limitations: no limitations - History of Present Illness -: week(s) (2) Severity scale (1-10): 0 Associated Symptoms: loss of appetite, nausea/vomiting, weakness Treatments Prior to Arrival: other (antibiotics) <Wood Greenberg - Last Filed: 11/10/21 15:34> - General Chief complaint: Recheck/Abnormal Lab/Rx Stated complaint: Recheck/Abnormal Labs Time Seen by Provider: 11/10/21 13:10 - History of Present Illness Initial comments: 76-year-old female presents awake and alert 4 with family member complaining of generalized weakness, abdominal pain for over 2 weeks. Patient states that she seen her primary care doctor and had blood work drawn and was told to come to the emergency room today for elevated potassium levels. Patient states that she is currently on antibiotics for a pressure ulcer on her buttocks. She denies any chest pain or shortness of breath. She denies any nausea or vomiting but does state that she has some diarrhea. Family at bedside states that she is incontinent with her diarrhea. Patient states that she is weak and having difficulty ambulating more than a few steps with her walker. She states she has a history of diabetes, heart failure, hypertension, rheumatoid arthritis, and tremors. (Wood Greenberg) - Related Data Home Medications Medication Instructions Recorded Confirmed Aspirin 81 mg PO DAILY 07/18/14 11/10/21 Atenolol 100 mg PO BID 07/18/14 11/10/21 Simvastatin [Zocor] 20 mg PO HS 07/18/14 11/10/21 glipiZIDE [Glipizide] 10 mg PO AC-BID 07/18/14 11/10/21 Insulin Glargine,Hum.rec.anlog 55 unit SQ HS 09/30/17 11/10/21 [Lantus Solostar Pen] metFORMIN HCL [Glucophage] 850 mg PO DAILY 09/30/17 11/10/21 Potassium Citrate [Urocit-K] 15 meq PO DAILY 06/08/18 11/10/21 Allopurinol [Zyloprim] 100 mg PO DAILY 11/10/21 11/10/21 Clotrimazole/Betameth Cream 1 applic TOPICAL BID 11/10/21 11/10/21 [Lotrisone] Cyanocobalamin (Vitamin B-12) 2,500 mcg PO DAILY 11/10/21 11/10/21 [Vitamin B-12] Docusate [Colace] 100 mg PO DAILY 11/10/21 11/10/21 Ferrous Sulfate [Feosol] 325 mg PO DAILY 11/10/21 11/10/21 Magnesium Oxide [Petty] 500 mg PO DAILY 11/10/21 11/10/21 Olmesartan/Hydrochlorothiazide 1 tab PO DAILY 11/10/21 11/10/21 [Olmesartan-Hctz 40-25 mg Tab] Allergies Allergy/AdvReac Type Severity Reaction Status Date / Time gabapentin AdvReac Hallucinati Verified 11/10/21 14:28 ons Review of Systems ROS Other: All systems not noted in ROS Statement are negative. <Balwinder Antonio - Last Filed: 11/10/21 15:08> ROS Other: All systems not noted in ROS Statement are negative. <Wood Greenberg - Last Filed: 11/10/21 15:34> ROS Statement: Those systems with pertinent positive or pertinent negative responses have been documented in the HPI. Past Medical History Past Medical History: Heart Failure, Diabetes Mellitus, Hyperlipidemia, Hypertension, Pneumonia, Rheumatoid Arthritis (RA) Additional Past Medical History / Comment(s): tremors, renal lithiasis, hemorrho ids(sx done), "has had problems w/low magnesium.anemia. per posue pt had past cancer "uterine or cervical-had hysterectomy". it was previously charted that pt had hx of ra and cfh spouse not able to verify this, History of Any Multi-Drug Resistant Organisms: ESBL Date of last positivie culture/infection: 05/11/18 MDRO Source:: ESBL URINE Past Surgical History: Appendectomy, Hysterectomy, Orthopedic Surgery, Tonsillectomy Additional Past Surgical History / Comment(s): rt total knee repalcement, cataracts, hemmorroidectomy, colonoscopy Past Anesthesia/Blood Transfusion Reactions: No Reported Reaction Additional Past Anesthesia/Blood Transfusion Reaction / Comment(s): per psouse- pt never receieved any blood Past Psychological History: No Psychological Hx Reported Past Alcohol Use History: None Reported Past Drug Use History: None Reported - Past Family History Mother Family Medical History: Diabetes Mellitus Father Additional Family Medical History / Comment(s): brain anuerysm <Wood Greenberg - Last Filed: 11/10/21 15:34> General Exam Limitations: no limitations, physical limitation (Ambulates with walker assistance) General appearance: alert Head exam: Present: atraumatic Eye exam: Absent: scleral icterus, conjunctival injection ENT exam: Present: mucous membranes moist Neck exam: Absent: tenderness, meningismus, lymphadenopathy, thyromegaly Respiratory exam: Present: decreased breath sounds. Absent: respiratory distress, wheezes, rhonchi, stridor, accessory muscle use Cardiovascular Exam: Present: regular rate. Absent: JVD GI/Abdominal exam: Present: soft Extremities exam: Present: pedal edema (2+ blle) Back exam: Absent: tenderness, CVA tenderness (R), CVA tenderness (L) Neurological exam: Present: alert, oriented X3 Psychiatric exam: Present: normal affect, normal mood Skin exam: Present: warm, dry, normal color, abrasion (Bilateral lower extr emities). Absent: cyanosis, diaphoretic <Wood Greenberg - Last Filed: 11/10/21 15:34> Course - Reevaluation(s) Time: 14:50 <Wood Greenberg - Last Filed: 11/10/21 15:34> Vital Signs 11/10/21 11/10/21 11:55 15:03 Temperature 98.0 F Pulse Rate 67 84 Respiratory 18 22 Rate Blood Pressure 134/78 O2 Sat by Pulse 95 Oximetry - Reevaluation(s) Reevaluation #1: 11/10/21 14:50 Dr. Ball notified of patient and lab results. Consult placed to the human resources professional and vascular. Family notified of critical lab results and the need for intensive care. Dr. Antonio at bedside. Patient denies any chest pain or shortness of breath. We'll continue to monitor. (Wood Greenberg) EKG Findings - EKG Results: EKG: sinus rhythm (Ventricular rate of 63, [place] interval 0.179, QRS 0.105, QTC 0.389) <Wood Greenberg - Last Filed: 11/10/21 15:34> Medical Decision Making - Lab Data Result diagrams: 11/10/21 13:11 11/10/21 13:11 <Balwinder Antonio - Last Filed: 11/10/21 15:08> - Lab Data Result diagrams: 11/10/21 13:11 11/10/21 13:11 <Wood Greenberg - Last Filed: 11/10/21 15:34> - Medical Decision Making Patient was reevaluated. Case was discussed with Dr. Bran who will consult for critical care however he does want nephrology to evaluate first to determine if patient needs ICU. (Balwinder Antonio) 76-year-old female presents complaining of generalized weakness, abdominal pain and diarrhea for over 2 weeks. She states she was told to come to the emergency room by her PCP today for elevated potassium level that was drawn outpatient. Her potassium today is 8.0, BUN is 56, creatinine 3.01. Troponin is negative at 0.012. EKG shows peaked T waves with sinus rhythm. CXR shows no acute cardiopulmonary process. Patient has a history of diabetes, hypertension, heart failure, rheumatoid arthritis and involuntary tremors. no history of renal disease. Vital signs are stable. She denies any chest pain, dizziness or shortness of breath. I did speak with Dr. Ball with nephrology who recommended potassium be redrawn [address] medications given. Dr. Antonio did speak with Dr Phillips regarding ICU admission. I did discuss lab results and ICU admission with the patient and her family members. They are agreeable to this plan of care. (Wood Greenberg) - Lab Data Lab Results 11/10/21 11/10/21 11/10/21 Range/Units 13:11 13:11 13:30 WBC 12.5 H (3.8-10.6) k/uL RBC 4.64 (3.80-5.40) m/uL Hgb 14.5 (11.4-16.0) gm/dL Hct 46.0 (34.0-46.0) % MCV 99.2 (80.0-100.0) fL MCH 31.2 (25.0-35.0) pg MCHC 31.4 (31.0-37.0) g/dL RDW 13.2 (11.5-15.5) % Plt Count 361 (150-450) k/uL MPV 7.2 Neutrophils % 81 % Lymphocytes % 12 % Monocytes % 5 % Eosinophils % 0 % Basophils % 0 % Neutrophils # 10.1 H (1.3-7.7) k/uL Lymphocytes # 1.5 (1.0-4.8) k/uL Monocytes # 0.7 (0-1.0) k/uL Eosinophils # 0.0 (0-0.7) k/uL Basophils # 0.0 (0-0.2) k/uL PT 9.9 (9.0-12.0) sec INR 0.9 (<1.2) APTT 22.6 (22.0-30.0) sec Sodium 135 L (137-145) mmol/L Potassium 8.0 H* (3.5-5.1) mmol/L Chloride 107 (98-107) mmol/L Carbon Dioxide 16 L (22-30) mmol/L Anion Gap 12 mmol/L BUN 56 H (7-17) mg/dL Creatinine 3.01 H (0.52-1.04) mg/dL Est GFR (CKD-EPI)AfAm 17 (>60 ml/min/1.73 sqM) Est GFR (CKD-EPI)NonAf 15 (>60 ml/min/1.73 sqM) Glucose 195 H (74-99) mg/dL Calcium 9.7 (8.4-10.2) mg/dL Total Bilirubin 0.5 (0.2-1.3) mg/dL AST 25 (14-36) U/L ALT 23 (4-34) U/L Alkaline Phosphatase 66 (38-126) U/L Troponin I (0.000-0.034) ng/mL Total Protein 7.8 (6.3-8.2) g/dL Albumin 4.1 (3.5-5.0) g/dL 11/10/21 Range/Units 13:30 WBC (3.8-10.6) k/uL RBC (3.80-5.40) m/uL Hgb (11.4-16.0) gm/dL Hct (34.0-46.0) % MCV (80.0-100.0) fL MCH (25.0-35.0) pg MCHC (31.0-37.0) g/dL RDW (11.5-15.5) % Plt Count (150-450) k/uL MPV Neutrophils % % Lymphocytes % % Monocytes % % Eosinophils % % Basophils % % Neutrophils # (1.3-7.7) k/uL Lymphocytes # (1.0-4.8) k/uL Monocytes # (0-1.0) k/uL Eosinophils # (0-0.7) k/uL Basophils # (0-0.2) k/uL PT (9.0-12.0) sec INR (<1.2) APTT (22.0-30.0) sec Sodium (137-145) mmol/L Potassium (3.5-5.1) mmol/L Chloride (98-107) mmol/L Carbon Dioxide (22-30) mmol/L Anion Gap mmol/L BUN (7-17) mg/dL Creatinine (0.52-1.04) mg/dL Est GFR (CKD-EPI)AfAm (>60 ml/min/1.73 sqM) Est GFR (CKD-EPI)NonAf (>60 ml/min/1.73 sqM) Glucose (74-99) mg/dL Calcium (8.4-10.2) mg/dL Total Bilirubin (0.2-1.3) mg/dL AST (14-36) U/L ALT (4-34) U/L Alkaline Phosphatase (38-126) U/L Troponin I <0.012 (0.000-0.034) ng/mL Total Protein (6.3-8.2) g/dL Albumin (3.5-5.0) g/dL Critical Care Time Critical Care Time: Yes Total Critical Care Time: 34 <Wood Greenberg - Last Filed: 11/10/21 15:34> Disposition <Balwinder Antonio - Last Filed: 11/10/21 15:08> Decision Date: 11/10/21 Decision Time: 15:00 <Wood Greenberg - Last Filed: 11/10/21 15:34> Clinical Impression: Hyperkalemia, TERRENCE (acute kidney injury), Weakness Disposition: ADMITTED IP TO THIS [facility] Referrals: Alberto Lehman DO [Primary Care Provider] - 1-2 days
[2021-11-10 13:40] LABS: Basophils % (A) 0 %; Eosinophils % (A) 0 %; HGB 14.5 gm/dL (11.4-16.0); Lymphocytes # (A) 1.5 k/uL (1.0-4.8); Lymphocytes % (A) 12 %; MCH 31.2 pg (25.0-35.0); MCHC 31.4 g/dL (31.0-37.0); MCV 99.2 fL (80.0-100.0); Mean Platelet Volume 7.2; Monocytes # (A) 0.7 k/uL (0-1.0); Monocytes % (A) 5 %; Neutrophils # (A) 10.1 k/uL (1.3-7.7); Neutrophils % (A) 81 %; Platelet Count 361 k/uL (150-450); RBC 4.64 m/uL (3.80-5.40); RDW 13.2 % (11.5-15.5); WBC 12.5 k/uL (3.8-10.6)
[2021-11-10 13:56] LABS: Albumin 4.1 g/dL (3.5-5.0); Calcium 9.7 mg/dL (8.4-10.2); Total Bilirubin 0.5 mg/dL (0.2-1.3); Total Protein 7.8 g/dL (6.3-8.2)
[2021-11-10 14:02] LABS: INR 0.9 (<1.2); Partial Thromboplastin Time 22.6 sec (22.0-30.0); Prothrombin Time 9.9 sec (9.0-12.0)
[2021-11-10] MEDS ORDERED: ALBUTEROL NEB (CONC) 2.5 MG/0.5 ML INHALATION ONE (14:14)
[2021-11-10] MEDS ORDERED: INSULIN REGULAR 100 UNIT/ML VIAL (IV) IV ONE (14:14)
[2021-11-10] MEDS ORDERED: SODIUM POLYSTYRENE SULFONATE 15 GM/60 ML BOTTLE PO STA ×2 (14:16→19:52)
[2021-11-10] MEDS ORDERED: DEXTROSE 50% SYRINGE 50 ML IVP ONE (14:18)
[2021-11-10] MEDS ORDERED: CALCIUM GLUCONATE 1 GM in SODIUM CHLORIDE 0.9% 100 ML IVPB ONE (14:30)
--- NOTE | 2021-11-10 14:37 | XR ---
EXAMINATION TYPE: XR chest 2V DATE OF EXAM: 11/10/2021 COMPARISON: Chest x-ray 12/23/2018 HISTORY: Chest pain, hyperkalemia TECHNIQUE: Frontal and lateral views of the chest are obtained. FINDINGS: There is no focal air space opacity, pleural effusion, or pneumothorax seen. The cardiac silhouette size is stable, possibly borderline enlarged. Right hemidiaphragm remains elevated. Patie nt is rotated. The osseous structures are intact. IMPRESSION: No acute cardiopulmonary process.
[2021-11-10] MEDS ORDERED: NALOXONE 0.4 MG/ML 1 ML VIAL IV PRN (14:43)
[2021-11-10] MEDS ORDERED: ACETAMINOPHEN TAB 325 MG TAB PO PRN (14:43)
--- NOTE | 2021-11-10 16:34 | US ---
EXAMINATION TYPE: US renals and bladder DATE OF EXAM: 11/10/2021 COMPARISON: US kidneys dated 11/18/2014 CLINICAL HISTORY: uti, back pain, hx of kidney stones. UTI, back pain, hx kidney stones, hyperkalemi a. EXAM MEASUREMENTS: Right Kidney: 11.3 x 5.0 x 5.5 cm, possibly under represented Left Kidney: 11.8 x 4.7 x 5.4 cm Exam is very limited due to patient body habitus and gas. Right Kidney: Limited. Appears hyperechoic. Cortex appears thin. Left Kidney: Limited. Appears hyperechoic and heterogeneous, cortex appears thin. Bladder: Possible minimal internal echoes within versus artifact. Bilateral Jets seen: No Cortical medullary differentiation is maintained. IMPRESSION: Renal sizes as described. Exam is somewhat limited technically. Difficult to exclude debris within th e urinary bladder.
[2021-11-10 17:06] LABS: Appearance,Urine Cloudy (Clear); Bacteria,Urine Rare /hpf; Bilirubin,Urine Negative (Negative); Blood,Urine Negative (Negative); Color,Urine Yellow; Glucose,Urine (UA) 2+ (Negative); Hyaline Casts,Urine 3 /lpf (0-2); Ketones,Urine Negative (Negative); Leukocyte Esterase,Urine Negative (Negative); Mucus,Urine Rare /hpf; Nitrite,Urine Negative (Negative); PH, Urine 5.5 (5.0-8.0); Protein,Urine Negative (Negative); RBC,Urine <1 /hpf (0-5); Specific Gravity,Urine 1.018 (1.001-1.035); Uric Acid Crystals,Urine Many /hpf; Urobilinogen,Urine <2.0 mg/dL (<2.0); WBC,Urine 1 /hpf (0-5)
[2021-11-10] MEDS: SODIUM CHLORIDE 0.9% 1,000 ML IV SCH (18:40)
--- NOTE | 2021-11-10 19:00 | P.HPIM ---
History of Present Illness H&P Date: 11/10/21 HISTORY OF PRESENT ILLNESS 76-year-old female one of Dr. 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 Patient apparently has not been feeling well for the last 2 weeks was diagnosed with UTI 2 weeks ago started on Bactrim DS which she finished yesterday. She had apparently blood tests of Dr. Lehman office a week ago shows a potassium to be 6.0 was post to have repeat test without having any adjusted medication at the time when she felt really sick today been tired fatigue not been able to ambulate and walk addition to having to have diarrhea with mild nausea and slight bloated abdomen. She ended up coming to the emergency department for the above problem was seen and evaluated surprisingly her potassium was 8.0 and patient was in acute kidney failure at the time with acute kidney injury. Patient was started on hydration was giving some kayaxalate nephrology consultation, ultrasound of the kidney was negative for any major abnormality patient be admitted to the hospital for the above problem. REVIEW OF SYSTEMS Constitutional: No fever, no chills, no night sweats. No weight change. Positive for weakness fatigue tiredness and sleepiness. EENT: No headache. No blurred vision or double vision, no loss of vision. No loss of Hearing, no ringing in the ears, no dizziness. No nasal drainage or congestion. No epistaxis. No sore throat. Lungs: No shortness of breath, cough, no sputum production. No wheezing. Cardiovascular: Mild congestion but No chest pain, no lower extremity edema. No palpitations. No paroxysmal nocturnal dyspnea. No orthopnea. No lightheadedness or dizziness. No syncopal episodes. Abdominal: No abdominal pain. No nausea, vomiting. No diarrhea. No constipation. No bloody or tarry stools.. No loss of appetite. Genitourinary: Significant decrease in urine output with recent UTI frequency and urgency. Musculoskeletal: Positive generalized myalgia with muscle weakness with abnormal balance gait no fall lately. Integumentary: No wounds, no lesions. No rash or pruritus. No unusual bruising. No change in hair or nails. Neurologic: No aphasia. No facial droop. No change in mentation. No head injury. No headache. No paralysis. No paresthesia. She has more like essential tremor. Psychiatric: No depression. No anxiety. No mood swings. Endocrine: No abnormal blood sugars. No weight change. No excessive sweating or thirst. No cold intolerance. SOCIAL HISTORY She does not smoke, no alcohol abuse, she is and lives with her . Does not use any CPAP or BiPAP she walk with a walker and limited mobility. FAMILY HISTORY She has 2 children both are living and well, she had one sister and 2 brother or sister from being cancer, one brother from diabetes complication another one from motor vehicle accident. Her father age 71 from brain aneurysm mother at 72 from CHF. PHYSICAL EXAMINATION Gen: This is mildly overweight look older than her age laying in bed does not look in any respiratory distress. HEENT: Head is atraumatic, normocephalic. Pupils equal, round. Sclerae is anicteric. NECK: Supple. No JVD. No lymphadenopathy. No thyromegaly. LUNGS: Clear to auscultation. No wheezes or rhonchi. No intercostal retractions. HEART: Regular rate and rhythm. No murmur. Mild arrhythmia with skipped beats. ABDOMEN: Soft. Bowel sounds are present. No masses. Slight discomfort lower abdominal area. EXTREMITIES: 2+ edema with slight discoloration more like chronic lymphedema and dermatitis. NEUROLOGICAL: Patient is awake, alert and oriented x3. Cranial nerves 2 through 12 are 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. She has essential tremor with worsening in her head and neck area and upper extremity. ASSESSMENT AND PLAN 1. Acute kidney injury most likely acute tubular necrosis: Patient be hospitalized continue hydration consult nephrology renal ultrasound was negative patient does not require any intervention at this time should watch her urine output patient might benefit from having fully catheter in at this point. 2 severe hyperkalemia: Potassium is 8.0, Kayexalate was giving continue patient on D50 with insulin also patient will be on hydration at this point we'll repeat potassium in the next few hours repeat tomorrow morning. Consult nephrology. 3 type 2 diabetes: Patient has been on insulin along with the glipizide and metformin continue Lantus at 40 units daily continue glipizide 5 mg twice a day and hold off on metformin at this point patient will be on Accu-Chek with sliding scales coverage. 4 chronic edema and lymphedema: Patient has been on Lasix 20 mg a day and spironolactone 100 mg daily Will hold's prolactin completely also Lasix will be left in hold for now. 5 hypertension: Patient apparently has been on atenolol 100 mg twice a day and still on Benicar 40/25 mg daily continue Benicar will hold atenolol for now to reduce the effect of any arrhythmia because of the hyperkalemia. 6 chronic history of gout: Has been on allopurinol continue medication. 7 hyperlipidemia: Still on simvastatin 20 mg a day. 8 recent urinary tract infection: Patient was on Bactrim DS which probably cause more acute kidney injury with hyperkalemia at this point. 9 chronic iron deficiency anemia: Continue iron supplement watch her hemoglobin. 10 chronic history of kidney stone: Patient was on potassium citrate which will be held for now. 11 GI prophylaxis: Patient was started on Pepcid 20 mg daily. 12 DVT prophylaxis: Heparin subcutaneous be started for now. CODE STATUS: Full code. Patient will be admitted to the hospital for a minimum of 2 night stay. Past Medical History Past Medical History: Heart Failure, Diabetes Mellitus, Hyperlipidemia, Hypertension, Pneumonia, Rheumatoid Arthritis (RA) Additional Past Medical History / Comment(s): tremors, renal lithiasis, hemorrhoids(sx done), "has had problems w/low magnesium.anemia. per posue pt had past cancer "uterine or cervical-had hysterectomy". it was previously charted that pt had hx of ra and cfh spouse not able to verify this, History of Any Multi-Drug Resistant Organisms: ESBL Date of last positivie culture/infection: 05/11/18 MDRO Source:: ESBL URINE Past Surgical History: Appendectomy, Hysterectomy, Orthopedic Surgery, Tonsillectomy Additional Past Surgical History / Comment(s): rt total knee repalcement, cataracts, hemmorroidectomy, colonoscopy Past Anesthesia/Blood Transfusion Reactions: No Reported Reaction Additional Past Anesthesia/Blood Transfusion Reaction / Comment(s): per psouse- pt never receieved any blood Past Psychological History: No Psychological Hx Reported Past Alcohol Use History: None Reported Past Drug Use History: None Reported - Past Family History Mother Family Medical History: Diabetes Mellitus Father Additional Family Medical History / Comment(s): brain anuerysm Medications and Allergies Home Medications Medication Instructions Recorded Confirmed Type Aspirin 81 mg PO DAILY 07/18/14 11/10/21 History Atenolol 100 mg PO BID 07/18/14 11/10/21 History Simvastatin [Zocor] 20 mg PO HS 07/18/14 11/10/21 History glipiZIDE [Glipizide] 10 mg PO AC-BID 07/18/14 11/10/21 History Insulin Glargine,Hum.rec.anlog 55 unit SQ HS 09/30/17 11/10/21 History [Lantus Solostar Pen] metFORMIN HCL [Glucophage] 850 mg PO DAILY 09/30/17 11/10/21 History Potassium Citrate [Urocit-K] 15 meq PO DAILY 06/08/18 11/10/21 History Allopurinol [Zyloprim] 100 mg PO DAILY 11/10/21 11/10/21 History Clotrimazole/Betameth Cream 1 applic TOPICAL BID 11/10/21 11/10/21 History [Lotrisone] Cyanocobalamin (Vitamin B-12) 2,500 mcg PO DAILY 11/10/21 11/10/21 History [Vitamin B-12] Docusate [Colace] 100 mg PO DAILY 11/10/21 11/10/21 History Ferrous Sulfate [Feosol] 325 mg PO DAILY 11/10/21 11/10/21 History Magnesium Oxide [Petty] 500 mg PO DAILY 11/10/21 11/10/21 History Olmesartan/Hydrochlorothiazide 1 tab PO DAILY 11/10/21 11/10/21 History [Olmesartan-Hctz 40-25 mg Tab] Allergies Allergy/AdvReac Type Severity Reaction Status Date / Time gabapentin AdvReac Hallucinati Verified 11/10/21 14:28 ons Physical Exam Vitals: Vital Signs Temp Pulse Resp BP Pulse Ox 11/10/21 17:00 64 18 134/68 98 11/10/21 16:22 63 18 106/56 97 11/10/21 15:52 72 16 11/10/21 15:13 86 11/10/21 15:03 84 22 11/10/21 11:55 98.0 F 67 18 134/78 95 Intake and Output 11/10/21 11/10/21 11/10/21 06:59 14:59 22:59 Other: Weight 96.615 kg Results CBC & Chem 7: 11/10/21 13:11 11/10/21 13:11 Labs: Abnormal Lab Results - Last 24 Hours (Table) 11/10/21 11/10/21 11/10/21 Range/Units 13:11 13:11 13:30 WBC 12.5 H (3.8-10.6) k/uL Neutrophils # 10.1 H (1.3-7.7) k/uL Sodium 135 L (137-145) mmol/L Potassium 8.0 H* (3.5-5.1) mmol/L Carbon Dioxide 16 L (22-30) mmol/L BUN 56 H (7-17) mg/dL Creatinine 3.01 H (0.52-1.04) mg/dL Glucose 195 H (74-99) mg/dL Urine Appearance Cloudy H (Clear) Urine Glucose (UA) 2+ H (Negative) Uric Acid Crystals Many H (None) /hpf Urine Bacteria Rare H (None) /hpf Hyaline Casts 3 H (0-2) /lpf Urine Mucus Rare H (None) /hpf
[2021-11-10 19:13] LABS: Magnesium 2.2 mg/dL (1.6-2.3)
[2021-11-10 20:57] LABS: Glucose,Whole Blood 203 mg/dL (75-99)
[2021-11-10] MEDS: ATORVASTATIN 10 MG TAB PO SCH (21:54)
[2021-11-10] MEDS: HEPARIN SODIUM,PORCINE/PF 5,000 UNIT/0.5 ML SYRINGE SQ SCH (21:54)
[2021-11-10] MEDS: INSULIN DETEMIR (LEVEMIR) 100 UNIT/ML SYR SQ SCH (21:54)
[2021-11-11] MEDS ORDERED: INSULIN REGULAR 100 UNIT/ML VIAL (IV) IV ONE ×3 (02:48→16:43)
[2021-11-11] MEDS ORDERED: DEXTROSE 50% SYRINGE 50 ML IVP ONE (02:48)
[2021-11-11] MEDS ORDERED: SODIUM ZIRCONIUM CYCLOSILICATE 10 GM PACKET PO ONE (02:50)
[2021-11-11 06:56] LABS: Glucose,Whole Blood 36 mg/dL (75-99)
[2021-11-11 06:56] LABS: Glucose,Whole Blood 47 mg/dL (75-99)
[2021-11-11 07:09] LABS: Glucose,Whole Blood 60 mg/dL (75-99)
[2021-11-11 07:18] LABS: Glucose,Whole Blood 102 mg/dL (75-99)
[2021-11-11 07:40] LABS: HCT 42.9 % (34.0-46.0); HGB 13.3 gm/dL (11.4-16.0); MCH 30.9 pg (25.0-35.0); MCHC 31.1 g/dL (31.0-37.0); MCV 99.4 fL (80.0-100.0); Platelet Count 344 k/uL (150-450); RBC 4.31 m/uL (3.80-5.40); RDW 13.4 % (11.5-15.5); WBC 10.3 k/uL (3.8-10.6)
[2021-11-11 07:56] LABS: Albumin 3.3 g/dL (3.5-5.0); Calcium 9.2 mg/dL (8.4-10.2); Total Bilirubin 0.5 mg/dL (0.2-1.3); Total Protein 6.5 g/dL (6.3-8.2)
[2021-11-11 08:10] LABS: Potassium 6.1 mmol/L (3.5-5.1)
[2021-11-11] MEDS ORDERED: LOSARTAN 50 MG TAB PO SCH (09:00)
[2021-11-11] MEDS: glipiZIDE 5 MG TAB PO SCH ×2 (09:14→17:07)
[2021-11-11] MEDS: SODIUM CHLORIDE 0.9% 1,000 ML IV SCH (09:15)
[2021-11-11] MEDS: CYANOCOBALAMIN 500 MCG TAB PO SCH (09:21)
[2021-11-11] MEDS: allopurinoL 100 MG TAB PO SCH (09:22)
[2021-11-11] MEDS: DOCUSATE 100 MG CAP PO SCH (09:23)
[2021-11-11] MEDS: MAGNESIUM OXIDE 400 MG TAB PO SCH (09:23)
[2021-11-11] MEDS: FERROUS SULFATE 325 MG TAB PO SCH (09:23)
[2021-11-11] MEDS: HEPARIN SODIUM,PORCINE/PF 5,000 UNIT/0.5 ML SYRINGE SQ SCH ×2 (09:23→21:18)
[2021-11-11] MEDS: ASPIRIN 81 MG PO SCH (09:23)
[2021-11-11] MEDS: hydroCHLOROthiazide 25 MG TAB PO SCH (09:24)
--- NOTE | 2021-11-11 09:42 | P.GSCN ---
History of Present Illness Consult date: 11/11/21 Reason for Consult: acute kidney injury Requesting physician: Wood Greenberg History of present illness: This is a 76-year-old pleasant female who presented to the emergency department with complaints of generalized weakness, lower extremity swelling and abdominal pain. She had gone and seen her primary care doctor and was told to go to the emergency department for an elevated potassium. She does have a past medical history of heart failure, diabetes mellitus, hyperlipidemia, and hypertension. She was noted to have acute kidney injury on this admission, was admitted to the ICU. Nephrology is on consult. Vascular surgery was consulted for acute kidney injury with possible need for hemodialysis catheter placement. The patient is currently eating her breakfast. She denies any acute changes. Denies any chest pain, shortness of breath, abdominal pain, nausea vomiting. When asked patient is unsure of her urine output. Apparently according to her records she had been seeing a product finisher however has stopped seeing the product finisher over the last several months. She previously had been on spironolactone and Lasix for history of anasarca and generalized edema however has not been taking. Review of Systems A 14 point review of systems was completed all pertinent positives and negatives as stated in the HPI. Past Medical History Past Medical History: Heart Failure, Diabetes Mellitus, Hyperlipidemia, Hypertension, Pneumonia, Rheumatoid Arthritis (RA) Additional Past Medical History / Comment(s): tremors, renal lithiasis, hemorrhoids(sx done), "has had problems w/low magnesium.anemia. per posue pt had past cancer "uterine or cervical-had hysterectomy". it was previously charted that pt had hx of ra and cfh spouse not able to verify this, History of Any Multi-Drug Resistant Organisms: ESBL Year Discovered:: 05/11/18 MDRO Source:: ESBL URINE Past Surgical History: Appendectomy, Hysterectomy, Orthopedic Surgery, Tonsillectomy Additional Past Surgical History / Comment(s): rt total knee repalcement, cataracts, hemmorroidectomy, colonoscopy Past Anesthesia/Blood Transfusion Reactions: No Reported Reaction Additional Past Anesthesia/Blood Transfusion Reaction / Comm: per psouse-pt never receieved any blood Past Psychological History: No Psychological Hx Reported Past Alcohol Use History: None Reported Past Drug Use History: None Reported - Past Family History Mother Family Medical History: Diabetes Mellitus Father Additional Family Medical History / Comment(s): brain anuerysm Medications and Allergies Home Medications Medication Instructions Recorded Confirmed Type Aspirin 81 mg PO DAILY 07/18/14 11/10/21 History Atenolol 100 mg PO BID 07/18/14 11/10/21 History Simvastatin [Zocor] 20 mg PO HS 07/18/14 11/10/21 History glipiZIDE [Glipizide] 10 mg PO AC-BID 07/18/14 11/10/21 History Insulin Glargine,Hum.rec.anlog 55 unit SQ HS 09/30/17 11/10/21 History [Lantus Solostar Pen] metFORMIN HCL [Glucophage] 850 mg PO DAILY 09/30/17 11/10/21 History Potassium Citrate [Urocit-K] 15 meq PO DAILY 06/08/18 11/10/21 History Allopurinol [Zyloprim] 100 mg PO DAILY 11/10/21 11/10/21 History Clotrimazole/Betameth Cream 1 applic TOPICAL BID 11/10/21 11/10/21 History [Lotrisone] Cyanocobalamin (Vitamin B-12) 2,500 mcg PO DAILY 11/10/21 11/10/21 History [Vitamin B-12] Docusate [Colace] 100 mg PO DAILY 11/10/21 11/10/21 History Ferrous Sulfate [Feosol] 325 mg PO DAILY 11/10/21 11/10/21 History Magnesium Oxide [Petty] 500 mg PO DAILY 11/10/21 11/10/21 History Olmesartan/Hydrochlorothiazide 1 tab PO DAILY 11/10/21 11/10/21 History [Olmesartan-Hctz 40-25 mg Tab] Allergies Allergy/AdvReac Type Severity Reaction Status Date / Time gabapentin AdvReac Hallucinati Verified 11/10/21 14:28 ons Surgical - Exam Vital Signs Temp Pulse Resp BP Pulse Ox 98.0 F 67 18 134/78 95 11/10/21 11:55 11/10/21 11:55 11/10/21 11:55 11/10/21 11:55 11/10/21 11:55 General appearance: The patient is alert, oriented, appears in no acute distress. Obese. HET: Head is normocephalic and atraumatic. Pupils are equal and reactive. Neck: Supple without lymphadenopathy. Trachea midline. No audible carotid bruit. Heart: S1 S2. Regular rate and rhythm. Lungs: Clear to auscultation bilaterally. Abdomen: Soft, nontender, nondistended. Extremities: Normal skin color and turgor. Bilateral lower extremity pitting edema. Neurological: No focal deficits. Strength and sensation are 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. Results - Labs 11/11/21 07:23 11/11/21 07:23 Abnormal Lab Results - Last 24 Hours (Table) 11/10/21 11/10/21 11/10/21 Range/Units 13:11 13:11 13:30 WBC 12.5 H (3.8-10.6) k/uL Neutrophils # 10.1 H (1.3-7.7) k/uL Sodium 135 L (137-145) mmol/L Potassium 8.0 H* (3.5-5.1) mmol/L Carbon Dioxide 16 L (22-30) mmol/L BUN 56 H (7-17) mg/dL Creatinine 3.01 H (0.52-1.04) mg/dL Glucose 195 H (74-99) mg/dL POC Glucose (mg/dL) (75-99) mg/dL Urine Appearance Cloudy H (Clear) Urine Glucose (UA) 2+ H (Negative) Uric Acid Crystals Many H (None) /hpf Urine Bacteria Rare H (None) /hpf Hyaline Casts 3 H (0-2) /lpf Urine Mucus Rare H (None) /hpf 11/10/21 11/10/21 11/10/21 Range/Units 18:36 20:56 23:53 WBC (3.8-10.6) k/uL Neutrophils # (1.3-7.7) k/uL Sodium (137-145) mmol/L Potassium 7.5 H* 6.7 H* (3.5-5.1) mmol/L Carbon Dioxide (22-30) mmol/L BUN (7-17) mg/dL Creatinine (0.52-1.04) mg/dL Glucose (74-99) mg/dL POC Glucose (mg/dL) 203 H (75-99) mg/dL Urine Appearance (Clear) Urine Glucose (UA) (Negative) Uric Acid Crystals (None) /hpf Urine Bacteria (None) /hpf Hyaline Casts (0-2) /lpf Urine Mucus (None) /hpf 11/11/21 11/11/21 11/11/21 Range/Units 06:51 06:55 07:08 WBC (3.8-10.6) k/uL Neutrophils # (1.3-7.7) k/uL Sodium (137-145) mmol/L Potassium (3.5-5.1) mmol/L Carbon Dioxide (22-30) mmol/L BUN (7-17) mg/dL Creatinine (0.52-1.04) mg/dL Glucose (74-99) mg/dL POC Glucose (mg/dL) 36 L 47 L 60 L (75-99) mg/dL Urine Appearance (Clear) Urine Glucose (UA) (Negative) Uric Acid Crystals (None) /hpf Urine Bacteria (None) /hpf Hyaline Casts (0-2) /lpf Urine Mucus (None) /hpf 11/11/21 Range/Units 07:17 WBC (3.8-10.6) k/uL Neutrophils # (1.3-7.7) k/uL Sodium (137-145) mmol/L Potassium (3.5-5.1) mmol/L Carbon Dioxide (22-30) mmol/L BUN (7-17) mg/dL Creatinine (0.52-1.04) mg/dL Glucose (74-99) mg/dL POC Glucose (mg/dL) 102 H (75-99) mg/dL Urine Appearance (Clear) Urine Glucose (UA) (Negative) Uric Acid Crystals (None) /hpf Urine Bacteria (None) /hpf Hyaline Casts (0-2) /lpf Urine Mucus (None) /hpf Diabetes panel 11/10/21 11/10/21 11/10/21 Range/Units 13:11 18:36 23:53 Sodium 135 L (137-145) mmol/L Potassium 8.0 H* 7.5 H* 6.7 H* (3.5-5.1) mmol/L Chloride 107 (98-107) mmol/L Carbon Dioxide 16 L (22-30) mmol/L BUN 56 H (7-17) mg/dL Creatinine 3.01 H (0.52-1.04) mg/dL Glucose 195 H (74-99) mg/dL Calcium 9.7 (8.4-10.2) mg/dL AST 25 (14-36) U/L ALT 23 (4-34) U/L Alkaline Phosphatase 66 (38-126) U/L Total Protein 7.8 (6.3-8.2) g/dL Albumin 4.1 (3.5-5.0) g/dL Calcium panel 11/10/21 Range/Units 13:11 Calcium 9.7 (8.4-10.2) mg/dL Albumin 4.1 (3.5-5.0) g/dL Pituitary panel 11/10/21 11/10/21 11/10/21 Range/Units 13:11 18:36 23:53 Sodium 135 L (137-145) mmol/L Potassium 8.0 H* 7.5 H* 6.7 H* (3.5-5.1) mmol/L Chloride 107 (98-107) mmol/L Carbon Dioxide 16 L (22-30) mmol/L BUN 56 H (7-17) mg/dL Creatinine 3.01 H (0.52-1.04) mg/dL Glucose 195 H (74-99) mg/dL Calcium 9.7 (8.4-10.2) mg/dL Adrenal panel 11/10/21 11/10/21 11/10/21 Range/Units 13:11 18:36 23:53 Sodium 135 L (137-145) mmol/L Potassium 8.0 H* 7.5 H* 6.7 H* (3.5-5.1) mmol/L Chloride 107 (98-107) mmol/L Carbon Dioxide 16 L (22-30) mmol/L BUN 56 H (7-17) mg/dL Creatinine 3.01 H (0.52-1.04) mg/dL Glucose 195 H (74-99) mg/dL Calcium 9.7 (8.4-10.2) mg/dL Total Bilirubin 0.5 (0.2-1.3) mg/dL AST 25 (14-36) U/L ALT 23 (4-34) U/L Alkaline Phosphatase 66 (38-126) U/L Total Protein 7.8 (6.3-8.2) g/dL Albumin 4.1 (3.5-5.0) g/dL - Imaging Comments: Chest x-ray: No acute cardiopulmonary process Assessment and Plan Assessment: 1. Acute kidney injury 2. Hyperkalemia 3. Lower extremity edema 4. Type 2 diabetes mellitus 5. Coronary artery disease 6. Hypertension and hyperlipidemia Plan: 1. Continue ICU management 2. Spoke with Dr. Ball and no need for renal replacement at this time as potassium level improving 3. We'll be on standby if needed for hemodialysis catheter placement Thank you for this consultation, we will continue to follow. The impression and plan of care has been dictated as directed. I performed a history and examination of this patient, discussed the same with the dictator. I agree with the dictator's note ,documented as a scribe. Any additional findings or plans will be noted.
[2021-11-11] MEDS ORDERED: FUROSEMIDE 10 MG/ML 4 ML VIAL IV STA (10:43)
[2021-11-11] MEDS ORDERED: SODIUM BICARB 8.4% 50 ML SYR (1 MEQ/ML) IV STA (10:44)
[2021-11-11] MEDS ORDERED: DEXTROSE 50% SYRINGE 50 ML IVP STA ×2 (10:44→16:43)
[2021-11-11] MEDS ORDERED: FUROSEMIDE 10 MG/ML 10 ML VIAL IV STA (11:01)
--- NOTE | 2021-11-11 11:23 | P.NPCON ---
History of Present Illness - Reason for Consult hyperkalemia - History of Present Illness Patient is a 76-year-old female with history of type 2 diabetes urinary artery disease hypertension hyperlipidemia and chronic kidney disease NKF stage IIIB with baseline creatinine around 1.4 mg/dL with recent creatinine 2.0 on 11/02/2021. Patient is admitted to the hospital with complaints of increased weakness and not feeling well. She was noted to have high potassium as outpatient at 6 mEq per liter. Patient was recently treated for UTI with Bactrim and she finished her antibiotic yesterday. In the emergency room patient was noted to have a serum potassium of 8 with acute kidney injury and serum creatinine up to 3.0 milligrams per deciliter. Patient has been treated with IV medications. She has had good urine output. Serum potassium is down to 6.1. Patient was apparently recently started on Cozaar. I do not see any NSAIDs on her home med list Blood pressure is not low No evidence of active GI bleed Review of Systems As per HPI, other systems negative Past Medical History Past Medical History: Heart Failure, Diabetes Mellitus, Hyperlipidemia, Hypertension, Pneumonia, Rheumatoid Arthritis (RA) Additional Past Medical History / Comment(s): tremors, renal lithiasis, hemorrhoids(sx done), "has had problems w/low magnesium.anemia. per posue pt had past cancer "uterine or cervical-had hysterectomy". it was previously charted that pt had hx of ra and cfh spouse not able to verify this, History of Any Multi-Drug Resistant Organisms: ESBL Date of last positivie culture/infection: 05/11/18 MDRO Source:: ESBL URINE Past Surgical History: Appendectomy, Hysterectomy, Orthopedic Surgery, Tonsillectomy Additional Past Surgical History / Comment(s): rt total knee repalcement, cat aracts, hemmorroidectomy, colonoscopy Past Anesthesia/Blood Transfusion Reactions: No Reported Reaction Additional Past Anesthesia/Blood Transfusion Reaction / Comment(s): per psouse- pt never receieved any blood Past Psychological History: No Psychological Hx Reported Past Alcohol Use History: None Reported Past Drug Use History: None Reported - Past Family History Mother Family Medical History: Diabetes Mellitus Father Additional Family Medical History / Comment(s): brain anuerysm Medications and Allergies Home Medications Medication Instructions Recorded Confirmed Type Aspirin 81 mg PO DAILY 07/18/14 11/10/21 History Atenolol 100 mg PO BID 07/18/14 11/10/21 History Simvastatin [Zocor] 20 mg PO HS 07/18/14 11/10/21 History glipiZIDE [Glipizide] 10 mg PO AC-BID 07/18/14 11/10/21 History Insulin Glargine,Hum.rec.anlog 55 unit SQ HS 09/30/17 11/10/21 History [Lantus Solostar Pen] metFORMIN HCL [Glucophage] 850 mg PO DAILY 09/30/17 11/10/21 History Potassium Citrate [Urocit-K] 15 meq PO DAILY 06/08/18 11/10/21 History Allopurinol [Zyloprim] 100 mg PO DAILY 11/10/21 11/10/21 History Clotrimazole/Betameth Cream 1 applic TOPICAL BID 11/10/21 11/10/21 History [Lotrisone] Cyanocobalamin (Vitamin B-12) 2,500 mcg PO DAILY 11/10/21 11/10/21 History [Vitamin B-12] Docusate [Colace] 100 mg PO DAILY 11/10/21 11/10/21 History Ferrous Sulfate [Feosol] 325 mg PO DAILY 11/10/21 11/10/21 History Magnesium Oxide [Petty] 500 mg PO DAILY 11/10/21 11/10/21 History Olmesartan/Hydrochlorothiazide 1 tab PO DAILY 11/10/21 11/10/21 History [Olmesartan-Hctz 40-25 mg Tab] Allergies Allergy/AdvReac Type Severity Reaction Status Date / Time gabapentin AdvReac Hallucinati Verified 11/10/21 14:28 ons Physical Exam Vitals: Vital Signs Temp Pulse Resp BP Pulse Ox 11/11/21 07:00 57 L 31 H 121/53 99 11/11/21 06:00 97.5 F L 65 24 113/53 94 L 11/11/21 05:00 62 10 L 113/51 94 L 11/11/21 04:00 98.0 F 61 23 122/64 94 L 11/11/21 03:00 61 15 126/54 94 L 11/11/21 02:00 59 L 23 135/56 95 11/11/21 01:00 61 12 131/60 95 11/11/21 00:00 97.8 F 61 20 122/69 95 11/10/21 23:00 63 17 122/57 94 L 11/10/21 22:55 98.4 F 62 15 122/57 95 11/10/21 20:00 62 16 134/57 100 11/10/21 19:00 62 16 111/57 93 L 11/10/21 18:00 63 14 123/80 98 11/10/21 17:00 64 18 134/68 98 11/10/21 16:22 63 18 106/56 97 11/10/21 15:52 72 16 11/10/21 15:13 86 11/10/21 15:03 84 22 11/10/21 11:55 98.0 F 67 18 134/78 95 Intake and Output 11/10/21 11/11/21 11/11/21 22:59 06:59 14:59 Intake Total 150 600 75 Output Total 275 800 40 Balance -125 -200 35 Intake: IV 150 600 75 Sodium Chloride 0.9% 1, 150 600 75 000 ml @ 75 mls/hr IV . [id number] [facility] Rx#:[id number] Output: Urine 275 800 40 Other: Voiding Method Indwelling Catheter Indwelling Catheter Weight 96.615 kg 100.3 kg Patient is awake comfortable. She is not in any acute distress. Examination of the heart S1 and S2 Examination lungs bilateral breath sounds are heard Abdomen is soft nontender obese Examination lower ex Mittie shows no significant edema [employer] exam 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 Results - Lab Results Most recent lab results Calcium 9.2 mg/dL (8.4-10.2) 11/11/21 07:23 Magnesium 2.2 mg/dL (1.6-2.3) 11/10/21 13:11 11/11/21 07:23 11/11/21 07:23 Assessment and Plan Assessment: 1. Acute kidney injury prerenal with ATN component currently improving. Nonoliguric. Maintained on IV fluids. No hydronephrosis on ultrasound. UA is quite bland 2. Hyperkalemia associated with acute kidney injury, metabolic acidosis and use of Bactrim recently 3. Metabolic acidosis associated with acute kidney injury currently improved 4. Chronic kidney disease NKF stage IIIB secondary to nephrosclerosis, with previous creatinine at 1.4 on 05/20/2021 but 2.0 on 11/02/2021 5. Recent urinary tract infection status post treatment with Bactrim 6. Type 2 diabetes maintained on metformin as outpatient currently on hold Plan: Switch IV fluids to IV bicarb IV Lasix 1 Repeat potassium in about 4 hours Hold dialysis for now YVETTE Vera Avoid Kayexalate due to risk of colon necrosis and use lokelma instead if needed Thank you for the consultation. We'll continue to follow the patient with you during her hospitalization
[2021-11-11] MEDS: DEXTROSE 5% IN WATER 1,000 ML with SODIUM BICARB (1 MEQ/ML) 150 ML IV SCH (12:07)
[2021-11-11 12:28] VITALS: BMI 35.6
--- NOTE | 2021-11-11 13:23 | P.PN ---
Subjective Progress Note Date: 11/11/21 HISTORY OF PRESENT ILLNESS 76-year-old female one of Dr. 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 Patient apparently has not been feeling well for the last 2 weeks was diagnosed with UTI 2 weeks ago started on Bactrim DS which she finished yesterday. She had apparently blood tests of Dr. Lehman office a week ago shows a potassium to be 6.0 was post to have repeat test without having any adjusted medication at the time when she felt really sick today been tired fatigue not been able to a mbulate and walk addition to having to have diarrhea with mild nausea and slight bloated abdomen. She ended up coming to the emergency department for the above problem was seen and evaluated surprisingly her potassium was 8.0 and patient was in acute kidney failure at the time with acute kidney injury. Patient was started on hydration was giving some kayaxalate nephrology consultation, ultrasound of the kidney was negative for any major abnormality patient be admitted to the hospital for the above problem. 11/11: Patient is doing much better today, potassium is down to 6.1, GFR is improved some with a creatinine is down to 2.6 compared to yesterday. Clinically has significant improvement with no major pain and discomfort with tiredness and fatigue is much better. Patient will be transfer out of the ICU today we'll continue to monitor potassium tablets at least below 5. Patient will be kept on hydration titrate diet at this point keep watching her blood sugar. REVIEW OF SYSTEMS Constitutional: No fever, no chills, no night sweats. No weight change. Pos itive for weakness fatigue tiredness and sleepiness. EENT: No headache. No blurred vision or double vision, no loss of vision. No loss of Hearing, no ringing in the ears, no dizziness. No nasal drainage or congestion. No epistaxis. No sore throat. Lungs: No shortness of breath, cough, no sputum production. No wheezing. Cardiovascular: Mild congestion but No chest pain, no lower extremity edema. No palpitations. No paroxysmal nocturnal dyspnea. No orthopnea. No lightheadedness or dizziness. No syncopal episodes. Abdominal: No abdominal pain. No nausea, vomiting. No diarrhea. No c onstipation. No bloody or tarry stools.. No loss of appetite. Genitourinary: Significant decrease in urine output with recent UTI frequency and urgency. Musculoskeletal: Positive generalized myalgia with muscle weakness with abnormal balance gait no fall lately. Integumentary: No wounds, no lesions. No rash or pruritus. No unusual bruising. No change in hair or nails. Neurologic: No aphasia. No facial droop. No change in mentation. No head injury. No headache. No paralysis. No paresthesia. She has more like essential tremor. Psychiatric: No depression. No anxiety. No mood swings. Endocrine: No abnormal blood sugars. No weight change. No excessive sweating or thirst. No cold intolerance. PHYSICAL EXAMINATION Gen: This is mildly overweight look older than her age laying in bed does not look in any respiratory distress. HEENT: Head is atraumatic, normocephalic. Pupils equal, round. Sclerae is anicteric. NECK: Supple. No JVD. No lymphadenopathy. No thyromegaly. LUNGS: Clear to auscultation. No wheezes or rhonchi. No intercostal retractions. HEART: Regular rate and rhythm. No murmur. Mild arrhythmia with skipped beats. ABDOMEN: Soft. Bowel sounds are present. No masses. Slight discomfort lower abdominal area. EXTREMITIES: 2+ edema with slight discoloration more like chronic lymphedema and dermatitis. NEUROLOGICAL: Patient is awake, alert and oriented x3. Cranial nerves 2 through 12 are 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. She has essential tremor with worsening in her head and neck area and upper extremity. ASSESSMENT AND PLAN 1. Acute kidney injury most likely acute tubular necrosis: Much better so far she still in CK D IV this point continue seen nephrology no concern for dialysis at this point. 2 severe hyperkalemia: Potassium is down 6.1 continue D50 with insulin continue sodium bicarbonate. 3 type 2 diabetes: Patient has been on insulin along with the glipizide and metformin continue Lantus at 40 units daily continue glipizide 5 mg twice a day and hold off on metformin at this point patient will be on Accu-Chek with sliding scales coverage. 4 chronic edema and lymphedema: A Chin is off of at this point and Lasix we'll resume Lasix probably tomorrow.. 5 hypertension: Patient apparently has been on atenolol 100 mg twice a day and still on Benicar 40/25 mg daily continue Benicar will hold atenolol for now to reduce the effect of any arrhythmia because of the hyperkalemia. 6 chronic history of gout: Has been on allopurinol continue medication. 7 hyperlipidemia: Still on simvastatin 20 mg a day. 8 recent urinary tract infection: Patient was on Bactrim DS which probably cause more acute kidney injury with hyperkalemia at this point. 9 chronic iron deficiency anemia: Continue iron supplement watch her hemoglobin. 10 chronic history of kidney stone: Patient was on potassium citrate which will be held for now. Discharge planning: Patient be transfer out of ICU, will keep watching potassium and kidney function, continue hydration, start physical therapy by tomorrow and hopefully home on Tuesday. Objective - Vital Signs Vital signs: Vital Signs Temp 97.5 F L 11/11/21 06:00 Pulse 57 L 11/11/21 07:00 Resp 31 H 11/11/21 07:00 BP 121/53 11/11/21 07:00 Pulse Ox 99 11/11/21 07:00 Intake & Output 11/10/21 11/11/21 11/11/21 18:59 06:59 18:59 Intake Total 750 75 Output Total 1075 40 Balance -325 35 Weight 96.615 kg 100.3 kg 100.3 kg Intake: IV 750 75 Sodium Chloride 0.9% 1, 750 75 000 ml @ 75 mls/hr IV . [id number] [facility] Rx#:[id number] Output: Urine 1075 40 Other: Voiding Method Indwelling Catheter - Labs CBC & Chem 7: 11/11/21 07:23 11/11/21 07:23 Labs: Abnormal Lab Results - Last 24 Hours (Table) 11/10/21 11/10/21 11/10/21 Range/Units 13:11 13:11 13:30 WBC 12.5 H (3.8-10.6) k/uL Neutrophils # 10.1 H (1.3-7.7) k/uL Sodium 135 L (137-145) mmol/L Potassium 8.0 H* (3.5-5.1) mmol/L Chloride (98-107) mmol/L Carbon Dioxide 16 L (22-30) mmol/L BUN 56 H (7-17) mg/dL Creatinine 3.01 H (0.52-1.04) mg/dL Glucose 195 H (74-99) mg/dL POC Glucose (mg/dL) (75-99) mg/dL Albumin (3.5-5.0) g/dL Urine Appearance Cloudy H (Clear) Urine Glucose (UA) 2+ H (Negative) Uric Acid Crystals Many H (None) /hpf Urine Bacteria Rare H (None) /hpf Hyaline Casts 3 H (0-2) /lpf Urine Mucus Rare H (None) /hpf 11/10/21 11/10/21 11/10/21 Range/Units 18:36 20:56 23:53 WBC (3.8-10.6) k/uL Neutrophils # (1.3-7.7) k/uL Sodium (137-145) mmol/L Potassium 7.5 H* 6.7 H* (3.5-5.1) mmol/L Chloride (98-107) mmol/L Carbon Dioxide (22-30) mmol/L BUN (7-17) mg/dL Creatinine (0.52-1.04) mg/dL Glucose (74-99) mg/dL POC Glucose (mg/dL) 203 H (75-99) mg/dL Albumin (3.5-5.0) g/dL Urine Appearance (Clear) Urine Glucose (UA) (Negative) Uric Acid Crystals (None) /hpf Urine Bacteria (None) /hpf Hyaline Casts (0-2) /lpf Urine Mucus (None) /hpf 11/11/21 11/11/21 11/11/21 Range/Units 06:51 06:55 07:08 WBC (3.8-10.6) k/uL Neutrophils # (1.3-7.7) k/uL Sodium (137-145) mmol/L Potassium (3.5-5.1) mmol/L Chloride (98-107) mmol/L Carbon Dioxide (22-30) mmol/L BUN (7-17) mg/dL Creatinine (0.52-1.04) mg/dL Glucose (74-99) mg/dL POC Glucose (mg/dL) 36 L 47 L 60 L (75-99) mg/dL Albumin (3.5-5.0) g/dL Urine Appearance (Clear) Urine Glucose (UA) (Negative) Uric Acid Crystals (None) /hpf Urine Bacteria (None) /hpf Hyaline Casts (0-2) /lpf Urine Mucus (None) /hpf 11/11/21 11/11/21 Range/Units 07:17 07:23 WBC (3.8-10.6) k/uL Neutrophils # (1.3-7.7) k/uL Sodium (137-145) mmol/L Potassium 6.1 H* (3.5-5.1) mmol/L Chloride 112 H (98-107) mmol/L Carbon Dioxide 20 L (22-30) mmol/L BUN 50 H (7-17) mg/dL Creatinine 2.69 H (0.52-1.04) mg/dL Glucose 143 H (74-99) mg/dL POC Glucose (mg/dL) 102 H (75-99) mg/dL Albumin 3.3 L (3.5-5.0) g/dL Urine Appearance (Clear) Urine Glucose (UA) (Negative) Uric Acid Crystals (None) /hpf Urine Bacteria (None) /hpf Hyaline Casts (0-2) /lpf Urine Mucus (None) /hpf
[2021-11-11 16:58] LABS: Glucose,Whole Blood 301 mg/dL (75-99)
[2021-11-11 18:21] LABS: Calcium 8.9 mg/dL (8.4-10.2); Potassium 5.4 mmol/L (3.5-5.1)
[2021-11-11 21:04] LABS: Glucose,Whole Blood 262 mg/dL (75-99)
[2021-11-11] MEDS: ATORVASTATIN 10 MG TAB PO SCH (21:18)
[2021-11-11] MEDS: INSULIN DETEMIR (LEVEMIR) 100 UNIT/ML SYR SQ SCH (21:18)
[2021-11-12 02:38] LABS: Glucose,Whole Blood 201 mg/dL (75-99)
[2021-11-12] MEDS: DEXTROSE 5% IN WATER 1,000 ML with SODIUM BICARB (1 MEQ/ML) 150 ML IV SCH (05:41)
[2021-11-12 06:59] LABS: Glucose,Whole Blood 199 mg/dL (75-99)
[2021-11-12] MEDS: MAGNESIUM OXIDE 400 MG TAB PO SCH (08:28)
[2021-11-12] MEDS: hydroCHLOROthiazide 25 MG TAB PO SCH (08:29)
[2021-11-12] MEDS: glipiZIDE 5 MG TAB PO SCH ×2 (08:29→17:10)
[2021-11-12] MEDS: CYANOCOBALAMIN 500 MCG TAB PO SCH (08:29)
[2021-11-12] MEDS: DOCUSATE 100 MG CAP PO SCH (08:29)
[2021-11-12] MEDS: HEPARIN SODIUM,PORCINE/PF 5,000 UNIT/0.5 ML SYRINGE SQ SCH ×2 (08:29→20:51)
[2021-11-12] MEDS: ASPIRIN 81 MG PO SCH (08:29)
[2021-11-12] MEDS: FERROUS SULFATE 325 MG TAB PO SCH (08:29)
[2021-11-12] MEDS: allopurinoL 100 MG TAB PO SCH (08:29)
[2021-11-12 08:41] LABS: HCT 39.5 % (37.2-46.3); HGB 12.4 g/dL (12.0-15.0); MCH 29.2 pg (27.0-32.0); MCHC 31.4 g/dL (32.0-37.0); MCV 93.2 fL (80.0-97.0); Mean Platelet Volume 9.3 fL (9.5-12.2); NRBC Per 100 WBC 0 /100 WBCS (0.0-0.0); Platelet Count 291 X 10*3/uL (140-440); RBC 4.24 X 10*6/uL (4.10-5.20); RDW 12.8 % (11.5-14.5); WBC 10.89 X 10*3/uL (4.50-10.00)
[2021-11-12 09:03] LABS: African American GFR (CKD) 20.2 (60.0-200.0); Albumin 3.3 g/dL (3.8-4.9); Albumin/Globulin Ratio 1.32 (1.60-3.17); Anion Gap 12.6 mmol/L (10.00-18.00); BUN/Creat Ratio 18.5 Ratio (12.00-20.00); Blood Urea Nitrogen 48.1 mg/dL (9.0-27.0); Calcium 8.6 mg/dL (8.7-10.3); Carbon Dioxide 22.9 mmol/L (20.0-27.5); Globulin 2.5 g/dL (1.6-3.3); Non-African American GFR(CKD) 17.5 (60.0-200.0); Total Bilirubin 0.2 mg/dL (0.30-1.20); Total Protein 5.8 g/dL (6.2-8.2)
--- NOTE | 2021-11-12 11:03 | P.PN ---
Subjective Progress Note Date: 11/12/21 HISTORY OF PRESENT ILLNESS 76-year-old female one of Dr. Lehman patient is known to have history of type 2 diabetes, chronic kidney disease, history of rheumatoid arthritis, hi story of CAD, history of hypertension and hyperlipidemia who seen e commerce strategist in [facility] and stop seen her reefer engineer last few month who is also known to have chronic history of anasarca and edema has been on chronic diuretics use with spironolactone 100 mg a day and Lasix 20 mg daily. Patient apparently has not been feeling well for the last 2 weeks was diagnosed with UTI 2 weeks ago started on Bactrim DS which she finished yesterday. She had apparently blood tests of Dr. Lehman office a week ago shows a potassium to be 6.0 was post to have repeat test without having any adjusted medication at the time when she felt really sick today been tired fatigue not been able to a mbulate and walk addition to having to have diarrhea with mild nausea and slight bloated abdomen. She ended up coming to the emergency department for the above problem was seen and evaluated surprisingly her potassium was 8.0 and patient was in acute kidney failure at the time with acute kidney injury. Patient was started on hydration was giving some kayaxalate nephrology consultation, ultrasound of the kidney was negative for any major abnormality patient be admitted to the hospital for the above problem. 11/11: Patient is doing much better today, potassium is down to 6.1, GFR is improved some with a creatinine is down to 2.6 compared to yesterday. Clinically has significant improvement with no major pain and discomfort with tiredness and fatigue is much better. Patient will be transfer out of the ICU today we'll continue to monitor potassium tablets at least below 5. Patient will be kept on hydration titrate diet at this point keep watching her blood sugar. 11/12: Patient is doing much better today she's having slight stomach discomfort was transferred out of ICU yesterday to medical floor bed. The kidney function has improved still on close to baseline potassium is down to 5.0. Patient is still on hydration titrate diet titrate physical therapy and hopefully if her numbers are better tomorrow be able to send her home. REVIEW OF SYSTEMS Constitutional: No fever, no chills, no night sweats. No weight change. Positive for weakness fatigue tiredness and sleepiness. EENT: No headache. No blurred vision or double vision, no loss of vision. No loss of Hearing, no ringing in the ears, no dizziness. No nasal drainage or congestion. No epistaxis. No sore throat. Lungs: No shortness of breath, cough, no sputum production. No wheezing. Cardiovascular: Mild congestion but No chest pain, no lower extremity edema. No palpitations. No paroxysmal nocturnal dyspnea. No orthopnea. No lightheadedness or dizziness. No syncopal episodes. Abdominal: No abdominal pain. No nausea, vomiting. No diarrhea. No constipation. No bloody or tarry stools.. No loss of appetite. Genitourinary: Significant decrease in urine output with recent UTI frequency and urgency. Musculoskeletal: Positive generalized myalgia with muscle weakness with abnormal balance gait no fall lately. Integumentary: No wounds, no lesions. No rash or pruritus. No unusual bruising. No change in hair or nails. Neurologic: No aphasia. No facial droop. No change in mentation. No head injury. No headache. No paralysis. No paresthesia. She has more like essential tremor. Psychiatric: No depression. No anxiety. No mood swings. Endocrine: No abnormal blood sugars. No weight change. No excessive sweating or thirst. No cold intolerance. PHYSICAL EXAMINATION Gen: This is mildly overweight look older than her age laying in bed does not look in any respiratory distress. HEENT: Head is atraumatic, normocephalic. Pupils equal, round. Sclerae is anicteric. NECK: Supple. No JVD. No lymphadenopathy. No thyromegaly. LUNGS: Clear to auscultation. No wheezes or rhonchi. No intercostal retractions. HEART: Regular rate and rhythm. No murmur. Mild arrhythmia with skipped beats. ABDOMEN: Soft. Bowel sounds are present. No masses. Slight discomfort lower abdominal area. EXTREMITIES: 2+ edema with slight discoloration more like chronic lymphedema and dermatitis. NEUROLOGICAL: Patient is awake, alert and oriented x3. Cranial nerves 2 through 12 are 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. She has essential tremor with worsening in her head and neck area and upper extremity. ASSESSMENT AND PLAN 1. Acute kidney injury most likely acute tubular necrosis: Much better so far she still in CK D STAGE III WE'LL CONTINUE CURRENT MANAGEMENT HYDRATION STILL SEEN NEPHROLOGY. 2 severe hyperkalemia: Potassium is down 5.0 continue hydration and continue sodium bicarbonate. 3 type 2 diabetes: Patient has been on insulin along with the glipizide and metformin continue Lantus at 40 units daily continue glipizide 5 mg twice a day and hold off on metformin at this point patient will be on Accu-Chek with sliding scales coverage. 4 chronic edema and lymphedema: A Chin is off of DrKetan at this point and Lasix we'll resume Lasix probably tomorrow.. 5 hypertension: Patient apparently has been on atenolol 100 mg twice a day and s till on Benicar 40/25 mg daily continue Benicar will hold atenolol for now to reduce the effect of any arrhythmia because of the hyperkalemia. 6 chronic history of gout: Has been on allopurinol continue medication. 7 hyperlipidemia: Still on simvastatin 20 mg a day. 8 recent urinary tract infection: Patient was on Bactrim DS which probably cause more acute kidney injury with hyperkalemia at this point. 9 chronic iron deficiency anemia: Continue iron supplement watch her hemoglobin. 10 chronic history of kidney stone: Patient was on potassium citrate which will be held for now. Discharge planning: Patient was start PTOT will involve social service for home care repeat lab tomorrow hopefully patient be going home tomorrow. Objective - Vital Signs Vital signs: Vital Signs Temp 97.7 F 11/12/21 08:00 Pulse 79 11/12/21 08:00 Resp 14 11/12/21 08:00 BP 120/68 11/12/21 08:00 Pulse Ox 99 11/12/21 08:00 Intake & Output 11/11/21 11/12/21 11/12/21 18:59 06:59 18:59 Intake Total 675 Output Total 1240 650 Balance -565 -650 Weight 100.3 kg Intake: IV 75 Sodium Chloride 0.9% 1, 75 000 ml @ 75 mls/hr IV . [id number] ROMERO Rx#:[id number] Intake, IV Titration 600 Amount Dextrose 5% in Water 1, 600 000 ml @ 75 mls/hr IV . [id number] ROMERO with Sodium Bicarb (1 Meq/ml) 150 ml Rx#:[id number] Output: Urine 1240 650 Other: Voiding Method Indwelling Catheter # Bowel Movements 1 - Labs CBC & Chem 7: 11/12/21 06:20 11/12/21 06:20 Labs: Abnormal Lab Results - Last 24 Hours (Table) 11/11/21 11/11/21 11/11/21 Range/Units 15:04 16:57 17:52 WBC (4.50-10.00) X 10*3/uL MCHC (32.0-37.0) g/dL MPV (9.5-12.2) fL Potassium 6.1 H* 5.4 H (3.5-5.1) mmol/L Carbon Dioxide 21 L (22-30) mmol/L BUN 55 H (7-17) mg/dL Creatinine 2.89 H (0.52-1.04) mg/dL Est GFR (CKD-EPI)AfAm (60.0-200.0) Est GFR (CKD-EPI)NonAf (60.0-200.0) Glucose 309 H (74-99) mg/dL POC Glucose (mg/dL) 301 H (75-99) mg/dL Calcium (8.7-10.3) mg/dL Total Bilirubin (0.30-1.20) mg/dL Total Protein (6.2-8.2) g/dL Albumin (3.8-4.9) g/dL Albumin/Globulin Ratio (1.60-3.17) g/dL 11/11/21 11/11/21 11/12/21 Range/Units 21:03 21:38 02:36 WBC (4.50-10.00) X 10*3/uL MCHC (32.0-37.0) g/dL MPV (9.5-12.2) fL Potassium 5.7 H (3.5-5.1) mmol/L Carbon Dioxide (22-30) mmol/L BUN (7-17) mg/dL Creatinine (0.52-1.04) mg/dL Est GFR (CKD-EPI)AfAm (60.0-200.0) Est GFR (CKD-EPI)NonAf (60.0-200.0) Glucose (74-99) mg/dL POC Glucose (mg/dL) 262 H 201 H (75-99) mg/dL Calcium (8.7-10.3) mg/dL Total Bilirubin (0.30-1.20) mg/dL Total Protein (6.2-8.2) g/dL Albumin (3.8-4.9) g/dL Albumin/Globulin Ratio (1.60-3.17) g/dL 11/12/21 11/12/21 11/12/21 Range/Units 06:20 06:20 06:58 WBC 10.89 H (4.50-10.00) X 10*3/uL MCHC 31.4 L (32.0-37.0) g/dL MPV 9.3 L (9.5-12.2) fL Potassium (3.5-5.1) mmol/L Carbon Dioxide (22-30) mmol/L BUN 48.1 H (7-17) mg/dL Creatinine 2.6 H (0.52-1.04) mg/dL Est GFR (CKD-EPI)AfAm 20.2 L (60.0-200.0) Est GFR (CKD-EPI)NonAf 17.5 L (60.0-200.0) Glucose 191 H (74-99) mg/dL POC Glucose (mg/dL) 199 H (75-99) mg/dL Calcium 8.6 L (8.7-10.3) mg/dL Total Bilirubin 0.20 L (0.30-1.20) mg/dL Total Protein 5.8 L (6.2-8.2) g/dL Albumin 3.3 L (3.8-4.9) g/dL Albumin/Globulin Ratio 1.32 L (1.60-3.17) g/dL Microbiology - Last 24 Hours (Table) 11/11/21 17:50 Urine Culture - Preliminary Urine,Catheterized
[2021-11-12 11:54] LABS: Glucose,Whole Blood 326 mg/dL (75-99)
[2021-11-12] MEDS: INSULIN ASPART (NovoLOG) 100 UNIT/ML VIAL SQ SCH ×3 (12:09→20:52)
--- NOTE | 2021-11-12 12:55 | P.PN ---
Subjective Patient is seen for follow-up for acute kidney injury and severe hyperkalemia associated with use of angiotensin receptor blockers, Bactrim and Aldactone. Serum potassium has improved. Patient has been transferred out of the ICU. Renal function is also improved. This morning patient is complaining of not having had much sleep. Overall she d enies any nausea vomiting abdominal pain or diarrhea. Objective - Vital Signs Vital signs: Vital Signs Temp 97.7 F 11/12/21 08:00 Pulse 79 11/12/21 08:00 Resp 14 11/12/21 08:00 BP 120/68 11/12/21 08:00 Pulse Ox 99 11/12/21 08:00 Intake & Output 11/11/21 11/12/21 11/12/21 18:59 06:59 18:59 Intake Total 675 Output Total 1240 650 Balance -565 -650 Weight 100.3 kg Intake: IV 75 Sodium Chloride 0.9% 1, 75 000 ml @ 75 mls/hr IV . [id number] ROMERO Rx#:[id number] Intake, IV Titration 600 Amount Dextrose 5% in Water 1, 600 000 ml @ 75 mls/hr IV . [id number] ROMERO with Sodium Bicarb (1 Meq/ml) 150 ml Rx#:[id number] Output: Urine 1240 650 Other: Voiding Method Indwelling Catheter # Bowel Movements 1 - Exam Patient is awake comfortable not in any acute distress. Examination of the heart S1 and S2 Examination lungs bilateral breath sounds are heard Abdomen is soft nontender Exertion lower extremities shows no significant edema Mello SECURITY SHIFT MANAGER exam 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 - Labs CBC & Chem 7: 11/12/21 06:20 11/12/21 06:20 Labs: Abnormal Lab Results - Last 24 Hours (Table) 11/11/21 11/11/21 11/11/21 Range/Units 15:04 16:57 17:52 WBC (4.50-10.00) X 10*3/uL MCHC (32.0-37.0) g/dL MPV (9.5-12.2) fL Potassium 6.1 H* 5.4 H (3.5-5.1) mmol/L Carbon Dioxide 21 L (22-30) mmol/L BUN 55 H (7-17) mg/dL Creatinine 2.89 H (0.52-1.04) mg/dL Est GFR (CKD-EPI)AfAm (60.0-200.0) Est GFR (CKD-EPI)NonAf (60.0-200.0) Glucose 309 H (74-99) mg/dL POC Glucose (mg/dL) 301 H (75-99) mg/dL Calcium (8.7-10.3) mg/dL Total Bilirubin (0.30-1.20) mg/dL Total Protein (6.2-8.2) g/dL Albumin (3.8-4.9) g/dL Albumin/Globulin Ratio (1.60-3.17) g/dL 11/11/21 11/11/21 11/12/21 Range/Units 21:03 21:38 02:36 WBC (4.50-10.00) X 10*3/uL MCHC (32.0-37.0) g/dL MPV (9.5-12.2) fL Potassium 5.7 H (3.5-5.1) mmol/L Carbon Dioxide (22-30) mmol/L BUN (7-17) mg/dL Creatinine (0.52-1.04) mg/dL Est GFR (CKD-EPI)AfAm (60.0-200.0) Est GFR (CKD-EPI)NonAf (60.0-200.0) Glucose (74-99) mg/dL POC Glucose (mg/dL) 262 H 201 H (75-99) mg/dL Calcium (8.7-10.3) mg/dL Total Bilirubin (0.30-1.20) mg/dL Total Protein (6.2-8.2) g/dL Albumin (3.8-4.9) g/dL Albumin/Globulin Ratio (1.60-3.17) g/dL 11/12/21 11/12/21 11/12/21 Range/Units 06:20 06:20 06:58 WBC 10.89 H (4.50-10.00) X 10*3/uL MCHC 31.4 L (32.0-37.0) g/dL MPV 9.3 L (9.5-12.2) fL Potassium (3.5-5.1) mmol/L Carbon Dioxide (22-30) mmol/L BUN 48.1 H (7-17) mg/dL Creatinine 2.6 H (0.52-1.04) mg/dL Est GFR (CKD-EPI)AfAm 20.2 L (60.0-200.0) Est GFR (CKD-EPI)NonAf 17.5 L (60.0-200.0) Glucose 191 H (74-99) mg/dL POC Glucose (mg/dL) 199 H (75-99) mg/dL Calcium 8.6 L (8.7-10.3) mg/dL Total Bilirubin 0.20 L (0.30-1.20) mg/dL Total Protein 5.8 L (6.2-8.2) g/dL Albumin 3.3 L (3.8-4.9) g/dL Albumin/Globulin Ratio 1.32 L (1.60-3.17) g/dL 11/12/21 Range/Units 11:53 WBC (4.50-10.00) X 10*3/uL MCHC (32.0-37.0) g/dL MPV (9.5-12.2) fL Potassium (3.5-5.1) mmol/L Carbon Dioxide (22-30) mmol/L BUN (7-17) mg/dL Creatinine (0.52-1.04) mg/dL Est GFR (CKD-EPI)AfAm (60.0-200.0) Est GFR (CKD-EPI)NonAf (60.0-200.0) Glucose (74-99) mg/dL POC Glucose (mg/dL) 326 H (75-99) mg/dL Calcium (8.7-10.3) mg/dL Total Bilirubin (0.30-1.20) mg/dL Total Protein (6.2-8.2) g/dL Albumin (3.8-4.9) g/dL Albumin/Globulin Ratio (1.60-3.17) g/dL Microbiology - Last 24 Hours (Table) 11/11/21 17:50 Urine Culture - Preliminary Urine,Catheterized Assessment and Plan Assessment: 1. Acute kidney injury prerenal with ATN component currently improving. Nonoliguric. Maintained on IV fluids. No hydronephrosis on ultrasound. UA is quite bland 2. Hyperkalemia associated with acute kidney injury, metabolic acidosis and use of Bactrim recently in the setting of use of angiotensin receptor blockers 3. Metabolic acidosis associated with acute kidney injury currently improved 4. Chronic kidney disease NKF stage IIIB secondary to nephrosclerosis, with previous creatinine at 1.4 on 05/20/2021 but 2.0 on 11/02/2021 5. Recent urinary tract infection status post treatment with Bactrim 6. Type 2 diabetes maintained on metformin as outpatient currently on hold Plan: DC IV bicarb Switch to Ringer lactate Continue to avoid Cliff inhibitors/angiotensin receptor blockers May continue with the thiazide diuretics Repeat labs in a.m.
[2021-11-12] MEDS: LACTATED RINGERS 1,000 ML IV SCH (13:15)
--- NOTE | 2021-11-12 13:51 | P.PN ---
Subjective Progress Note Date: 11/12/21 The patient is seen and examined at the bedside. No acute changes through the night. Potassium is improving. No need for hemodialysis at this time per nephrology. Objective - Vital Signs Vital signs: Vital Signs Temp 97.7 F 11/12/21 08:00 Pulse 79 11/12/21 08:00 Resp 14 11/12/21 08:00 BP 120/68 11/12/21 08:00 Pulse Ox 99 11/12/21 08:00 Intake & Output 11/11/21 11/12/21 11/12/21 18:59 06:59 18:59 Intake Total 675 Output Total 1240 650 Balance -565 -650 Weight 100.3 kg Intake: IV 75 Sodium Chloride 0.9% 1, 75 000 ml @ 75 mls/hr IV . [id number] ROMERO Rx#:[id number] Intake, IV Titration 600 Amount Dextrose 5% in Water 1, 600 000 ml @ 75 mls/hr IV . [id number] ROMERO with Sodium Bicarb (1 Meq/ml) 150 ml Rx#:[id number] Output: Urine 1240 650 Other: Voiding Method Indwelling Catheter # Bowel Movements 1 - Exam General appearance: The patient is alert, oriented, appears in no acute distress. Obese. HET: Head is normocephalic and atraumatic. Pupils are equal and reactive. Neck: Supple without lymphadenopathy. Trachea midline. No audible carotid bruit. Extremities: Normal skin color and turgor. Bilateral lower extremity pitting edema. Neurological: No focal deficits. Alert and oriented 3. - Labs CBC & Chem 7: 11/12/21 06:20 11/12/21 06:20 Labs: Abnormal Lab Results - Last 24 Hours (Table) 11/11/21 11/11/21 11/11/21 Range/Units 15:04 16:57 17:52 WBC (4.50-10.00) X 10*3/uL MCHC (32.0-37.0) g/dL MPV (9.5-12.2) fL Potassium 6.1 H* 5.4 H (3.5-5.1) mmol/L Carbon Dioxide 21 L (22-30) mmol/L BUN 55 H (7-17) mg/dL Creatinine 2.89 H (0.52-1.04) mg/dL Est GFR (CKD-EPI)AfAm (60.0-200.0) Est GFR (CKD-EPI)NonAf (60.0-200.0) Glucose 309 H (74-99) mg/dL POC Glucose (mg/dL) 301 H (75-99) mg/dL Calcium (8.7-10.3) mg/dL Total Bilirubin (0.30-1.20) mg/dL Total Protein (6.2-8.2) g/dL Albumin (3.8-4.9) g/dL Albumin/Globulin Ratio (1.60-3.17) g/dL 11/11/21 11/11/21 11/12/21 Range/Units 21:03 21:38 02:36 WBC (4.50-10.00) X 10*3/uL MCHC (32.0-37.0) g/dL MPV (9.5-12.2) fL Potassium 5.7 H (3.5-5.1) mmol/L Carbon Dioxide (22-30) mmol/L BUN (7-17) mg/dL Creatinine (0.52-1.04) mg/dL Est GFR (CKD-EPI)AfAm (60.0-200.0) Est GFR (CKD-EPI)NonAf (60.0-200.0) Glucose (74-99) mg/dL POC Glucose (mg/dL) 262 H 201 H (75-99) mg/dL Calcium (8.7-10.3) mg/dL Total Bilirubin (0.30-1.20) mg/dL Total Protein (6.2-8.2) g/dL Albumin (3.8-4.9) g/dL Albumin/Globulin Ratio (1.60-3.17) g/dL 11/12/21 11/12/21 11/12/21 Range/Units 06:20 06:20 06:58 WBC 10.89 H (4.50-10.00) X 10*3/uL MCHC 31.4 L (32.0-37.0) g/dL MPV 9.3 L (9.5-12.2) fL Potassium (3.5-5.1) mmol/L Carbon Dioxide (22-30) mmol/L BUN 48.1 H (7-17) mg/dL Creatinine 2.6 H (0.52-1.04) mg/dL Est GFR (CKD-EPI)AfAm 20.2 L (60.0-200.0) Est GFR (CKD-EPI)NonAf 17.5 L (60.0-200.0) Glucose 191 H (74-99) mg/dL POC Glucose (mg/dL) 199 H (75-99) mg/dL Calcium 8.6 L (8.7-10.3) mg/dL Total Bilirubin 0.20 L (0.30-1.20) mg/dL Total Protein 5.8 L (6.2-8.2) g/dL Albumin 3.3 L (3.8-4.9) g/dL Albumin/Globulin Ratio 1.32 L (1.60-3.17) g/dL 11/12/21 Range/Units 11:53 WBC (4.50-10.00) X 10*3/uL MCHC (32.0-37.0) g/dL MPV (9.5-12.2) fL Potassium (3.5-5.1) mmol/L Carbon Dioxide (22-30) mmol/L BUN (7-17) mg/dL Creatinine (0.52-1.04) mg/dL Est GFR (CKD-EPI)AfAm (60.0-200.0) Est GFR (CKD-EPI)NonAf (60.0-200.0) Glucose (74-99) mg/dL POC Glucose (mg/dL) 326 H (75-99) mg/dL Calcium (8.7-10.3) mg/dL Total Bilirubin (0.30-1.20) mg/dL Total Protein (6.2-8.2) g/dL Albumin (3.8-4.9) g/dL Albumin/Globulin Ratio (1.60-3.17) g/dL Microbiology - Last 24 Hours (Table) 11/11/21 17:50 Urine Culture - Preliminary Urine,Catheterized Assessment and Plan Assessment: 1. Acute kidney injury 2. Hyperkalemia 3. Lower extremity edema 4. Type 2 diabetes mellitus 5. Coronary artery disease 6. Hypertension and hyperlipidemia Plan: 1. Continue medical management 2. Spoke with Dr. Ball and no need for renal replacement at this time as potassium level improving 3. We'll be on standby if needed for hemodialysis catheter placement Thank you for this consultation, we will be on standby. Please don't hesitate to call us back if hemodialysis catheter is needed. The impression and plan of care has been dictated as directed. I performed a history and examination of this patient, discussed the same with the dictator. I agree with the dictator's note ,documented as a scribe. Any additional findings or plans will be noted.
--- NOTE | 2021-11-12 14:54 | CDI ---
Documentation Clarification Form Date: 11/12/2021 01:59:00 PM From: May Torres RN, CCDS Admit Date: 11/10/2021 02:37:00 PM Patient Name: Luisa Umaña Visit Number: [id number] Discharge Date: ATTENTION: The Clinical Documentation Specialists (CDI) and [facility] Coding Staff appreciate your assistance in clarifying documentation. Please respond to the clarification below the line at the bottom and electronically sign. The CDI & [facility] Coding staff will review the response and follow-up if needed. Please note: Queries are made part of the Legal Health Record. If you have any questions, please contact the author of this message via ITS. Dr. Saman Shea A buttock pressure ulcer is documented in the emergency department note on 11/10/21 and in the nursing wound assessment. Additional clarification regarding the stage of the pressure ulcer is requested. History/Risk Factors: heart Failure, Diabetes Mellitus, Hypertension, Pneumonia, Rheumatoid Arthritis Clinical Indicators: 76-year-old female present with nausea, vomiting and weakness. 11/10 ED note: Patient states that she is currently on antibiotics for a pressure ulcer on her buttocks. 11/10 Nursing wound assessment: coccyx pressure injury stage II Location: coccyx Wound description: Shear, No drainage, Treatment: Turn and Positioning per protocol Zinc paste to coccyx per protocol Please clarify the stage of pressure ulcer coccyx, if known: [ ] Stage 1 Diabetic Pressure Ulcer to Coccyx [ xx] Stage 2 Diabetic Pressure Ulcer to Coccyx [ ] Stage 3 Diabetic Pressure Ulcer to Coccyx [ ] Other condition, please specify [ ] Unable to determine Clinical Definitions: Stage 1 Pressure Ulcer: intact skin, non-blanching redness of local area Stage 2 Pressure Ulcer: Partial thickness, loss of dermis, pink wound bed Stage 3 Pressure Ulcer: Full thickness tissue loss Stage 4 Pressure Ulcer: Full thickness tissue loss with exposed bone, tendon, or muscle. Unstageable pressure ulcer: Full thickness tissue loss in which the base of the ulcer is covered by slough (yellow, tidwell, tan, green or brown) and/or eschar (tidwell, brown or black) in the wound bed. (Template Last Revised: November 2020) MTDD
[2021-11-12 16:53] LABS: Glucose,Whole Blood 277 mg/dL (75-99)
[2021-11-12 20:49] LABS: Glucose,Whole Blood 259 mg/dL (75-99)
[2021-11-12] MEDS: ATORVASTATIN 10 MG TAB PO SCH (20:53)
[2021-11-12] MEDS: INSULIN DETEMIR (LEVEMIR) 100 UNIT/ML SYR SQ SCH (20:53)
[2021-11-13 02:06] LABS: Glucose,Whole Blood 313 mg/dL (75-99)
[2021-11-13] MEDS: LACTATED RINGERS 1,000 ML IV SCH ×2 (03:28→16:11)
--- NOTE | 2021-11-13 05:20 | P.CONS ---
History of Present Illness - Chief Complaint Medical debility - History of Present Illness I had the opportunity to see patient for inpatient rehab consultation with regard to medical debility. She was admitted to Dr. Shea November 10 with weakness and abdominal pain of greater than 2 weeks duration. Potassium elevated 6.0. Seen by Dr. Ball for acute on chronic kidney disease stage III. Seen by Dr. Perez for surgical evaluation and recommended observation currently. Renal ultrasound demonstrates bladder debris only. Chest x-ray negative. PT reports moderate assistance for bed mobility, minimal moderate assistance for transfer and minimal assistance for gait to 3 feet roller walker. I've added OT at this time. Previous functional history as elicited from patient: 76-year-old right-handed white female who is lives in one floor home with . Both retired. They share the cooking and laundry does the driving. Patient describes previously independent with standing shower and gait with roller walker. Does have a wheelchair. PCP Dr. Lehman. Denies tobacco or alcohol. Review of Systems Review of systems: ENT: Denies sneezes or discharge. Eyes: Denies discharge or photophobia. Cardiac: Denies chest pain or palpitation. Pulmonary: Denies cough or shortness of breath. Breast: Denies discharge or lumps. Gastrointestinal: Denies nausea, emesis, constipation, diarrhea. Genitourinary: Denies discharge or frequency. Musculoskeletal: Denies muscle or bone aches. Neurologic: General weakness. Endocrine: Denies shakes or sweats. Oncology: Denies cancers. Dermatologic: Denies rash, itching, pruritus. ALLERGY/immunology: Denies sneezes, rashes. Past Medical History Past Medical History: Heart Failure, Diabetes Mellitus, Hyperlipidemia, Hypertension, Pneumonia, Rheumatoid Arthritis (RA) Additional Past Medical History / Comment(s): tremors, renal lithiasis, hemor rhoids(sx done), "has had problems w/low magnesium.anemia. per posue pt had past cancer "uterine or cervical-had hysterectomy". it was previously charted that pt had hx of ra and cfh spouse not able to verify this, History of Any Multi-Drug Resistant Organisms: ESBL Year Discovered:: 05/11/18 MDRO Source:: ESBL URINE Past Surgical History: Appendectomy, Hysterectomy, Orthopedic Surgery, Tonsillectomy Additional Past Surgical History / Comment(s): rt total knee repalcement, cataracts, hemmorroidectomy, colonoscopy Past Anesthesia/Blood Transfusion Reactions: No Reported Reaction Additional Past Anesthesia/Blood Transfusion Reaction / Comm: per psouse-pt never receieved any blood Past Psychological History: No Psychological Hx Reported Past Alcohol Use History: None Reported Past Drug Use History: None Reported - Past Family History Mother Family Medical History: Diabetes Mellitus Father Additional Family Medical History / Comment(s): brain anuerysm Medications and Allergies Home Medications Medication Instructions Recorded Confirmed Type Aspirin 81 mg PO DAILY 07/18/14 11/10/21 History Atenolol 100 mg PO BID 07/18/14 11/10/21 History Simvastatin [Zocor] 20 mg PO HS 07/18/14 11/10/21 History glipiZIDE [Glipizide] 10 mg PO AC-BID 07/18/14 11/10/21 History Insulin Glargine,Hum.rec.anlog 55 unit SQ HS 09/30/17 11/10/21 History [Lantus Solostar Pen] metFORMIN HCL [Glucophage] 850 mg PO DAILY 09/30/17 11/10/21 History Potassium Citrate [Urocit-K] 15 meq PO DAILY 06/08/18 11/10/21 History Allopurinol [Zyloprim] 100 mg PO DAILY 11/10/21 11/10/21 History Clotrimazole/Betameth Cream 1 applic TOPICAL BID 11/10/21 11/10/21 History [Lotrisone] Cyanocobalamin (Vitamin B-12) 2,500 mcg PO DAILY 11/10/21 11/10/21 History [Vitamin B-12] Docusate [Colace] 100 mg PO DAILY 11/10/21 11/10/21 History Ferrous Sulfate [Feosol] 325 mg PO DAILY 11/10/21 11/10/21 History Magnesium Oxide [Petty] 500 mg PO DAILY 11/10/21 11/10/21 History Olmesartan/Hydrochlorothiazide 1 tab PO DAILY 11/10/21 11/10/21 History [Olmesartan-Hctz 40-25 mg Tab] Allergies Allergy/AdvReac Type Severity Reaction Status Date / Time gabapentin AdvReac Hallucinati Verified 11/10/21 14:28 ons Physical Exam Vitals: Vital Signs Temp Pulse Resp BP Pulse Ox 11/13/21 02:00 99.3 F 74 18 120/67 96 11/12/21 20:00 98.3 F 73 17 144/63 95 11/12/21 14:00 98.8 F 81 16 139/76 98 11/12/21 08:00 97.7 F 79 14 120/68 99 Intake and Output 11/12/21 11/12/21 11/13/21 14:59 22:59 06:59 Other: Voiding Method Indwelling Catheter Indwelling Catheter Skin: Atrophic, intact. General: Overweight build and comfortable appearance. Head: Normocephalic, atraumatic. Eyes: Symmetric. Pupils equal round. Ears: Symmetric. Hearing within normal limits. Mouth: Clear. Neck: Supple. Carotid without bruit. Cardiac: Regular rate and rhythm. Lungs: Clear anteriorly and posteriorly. Abdomen: Soft active nontender. Extremities: Normal tone. Edema lower legs. Neurological: Mental status: Alert, cooperative, pleasant. Cranial nerves: Symmetric facial tone and trapezius. Motor: Able to elevate all 4 limbs off of bed but arms about antigravity in legs less than antigravity. Sensation: Intact throughout. DTRs: Symmetric and equal throughout. Mobility: Requires physical assist for bed mobility. Results CBC & Chem 7: 11/12/21 06:20 11/12/21 06:20 Labs: Abnormal Lab Results - Last 24 Hours (Table) 11/12/21 11/12/21 11/12/21 Range/Units 06:20 06:20 06:58 WBC 10.89 H (4.50-10.00) X 10*3/uL MCHC 31.4 L (32.0-37.0) g/dL MPV 9.3 L (9.5-12.2) fL BUN 48.1 H (9.0-27.0) mg/dL Creatinine 2.6 H (0.6-1.5) mg/dL Est GFR (CKD-EPI)AfAm 20.2 L (60.0-200.0) Est GFR (CKD-EPI)NonAf 17.5 L (60.0-200.0) Glucose 191 H (70-110) mg/dL POC Glucose (mg/dL) 199 H (75-99) mg/dL Calcium 8.6 L (8.7-10.3) mg/dL Total Bilirubin 0.20 L (0.30-1.20) mg/dL Total Protein 5.8 L (6.2-8.2) g/dL Albumin 3.3 L (3.8-4.9) g/dL Albumin/Globulin Ratio 1.32 L (1.60-3.17) g/dL 11/12/21 11/12/21 11/12/21 Range/Units 11:53 16:51 20:47 WBC (4.50-10.00) X 10*3/uL MCHC (32.0-37.0) g/dL MPV (9.5-12.2) fL BUN (9.0-27.0) mg/dL Creatinine (0.6-1.5) mg/dL Est GFR (CKD-EPI)AfAm (60.0-200.0) Est GFR (CKD-EPI)NonAf (60.0-200.0) Glucose (70-110) mg/dL POC Glucose (mg/dL) 326 H 277 H 259 H (75-99) mg/dL Calcium (8.7-10.3) mg/dL Total Bilirubin (0.30-1.20) mg/dL Total Protein (6.2-8.2) g/dL Albumin (3.8-4.9) g/dL Albumin/Globulin Ratio (1.60-3.17) g/dL 11/13/21 Range/Units 02:04 WBC (4.50-10.00) X 10*3/uL MCHC (32.0-37.0) g/dL MPV (9.5-12.2) fL BUN (9.0-27.0) mg/dL Creatinine (0.6-1.5) mg/dL Est GFR (CKD-EPI)AfAm (60.0-200.0) Est GFR (CKD-EPI)NonAf (60.0-200.0) Glucose (70-110) mg/dL POC Glucose (mg/dL) 313 H (75-99) mg/dL Calcium (8.7-10.3) mg/dL Total Bilirubin (0.30-1.20) mg/dL Total Protein (6.2-8.2) g/dL Albumin (3.8-4.9) g/dL Albumin/Globulin Ratio (1.60-3.17) g/dL Microbiology - Last 24 Hours (Table) 11/11/21 17:50 Urine Culture - Preliminary Urine,Catheterized Assessment and Plan (1) TERRENCE (acute kidney injury) Current Visit: Yes Status: Acute Code(s): N17.9 - ACUTE KIDNEY FAILURE, UNSPECIFIED SNOMED Code(s): 56256689 (2) Hyperkalemia Current Visit: Yes Status: Acute Code(s): E87.5 - HYPERKALEMIA SNOMED Code(s): 39561600 (3) Weakness Current Visit: Yes Status: Acute Code(s): R53.1 - WEAKNESS SNOMED Code(s): 12482424 (4) Degenerative disc disease, cervical Current Visit: No Status: Acute Code(s): M50.30 - OTHER CERVICAL DISC DEGENERATION, UNSP CERVICAL REGION SNOMED Code(s): 48489300 Plan: Comments and plan: At this time safety concerns are noted. I have added OT. PT don't stump Kmetz safety concerns with some ability tolerate and benefit from therapies. If plan is for return to home, patient would appear to be a rehab candidate. Patient reports that daughter prefers to have her in [facility] r ehab.
[2021-11-13 07:03] LABS: Glucose,Whole Blood 147 mg/dL (75-99)
[2021-11-13] MEDS: CYANOCOBALAMIN 500 MCG TAB PO SCH (08:03)
[2021-11-13] MEDS: INSULIN ASPART (NovoLOG) 100 UNIT/ML VIAL SQ SCH ×4 (08:03→22:28)
[2021-11-13] MEDS: FERROUS SULFATE 325 MG TAB PO SCH (08:03)
[2021-11-13] MEDS: hydroCHLOROthiazide 25 MG TAB PO SCH (08:03)
[2021-11-13] MEDS: HEPARIN SODIUM,PORCINE/PF 5,000 UNIT/0.5 ML SYRINGE SQ SCH ×2 (08:03→22:28)
[2021-11-13] MEDS: ASPIRIN 81 MG PO SCH (08:04)
[2021-11-13] MEDS: allopurinoL 100 MG TAB PO SCH (08:04)
[2021-11-13] MEDS: MAGNESIUM OXIDE 400 MG TAB PO SCH (08:04)
[2021-11-13] MEDS: DOCUSATE 100 MG CAP PO SCH (08:04)
[2021-11-13] MEDS: glipiZIDE 5 MG TAB PO SCH ×2 (08:04→16:48)
[2021-11-13 09:32] LABS: HGB 11.9 g/dL (12.0-15.0); MCH 29.5 pg (27.0-32.0); MCHC 30.5 g/dL (32.0-37.0); MCV 96.8 fL (80.0-97.0); Mean Platelet Volume 9.1 fL (9.5-12.2); NRBC Per 100 WBC 0 /100 WBCS (0.0-0.0); Platelet Count 284 X 10*3/uL (140-440); RBC 4.03 X 10*6/uL (4.10-5.20); RDW 12.9 % (11.5-14.5)
[2021-11-13 10:08] LABS: African American GFR (CKD) 20.2 (60.0-200.0); Albumin 3.2 g/dL (3.8-4.9); Albumin/Globulin Ratio 1.33 (1.60-3.17); BUN/Creat Ratio 16.81 Ratio (12.00-20.00); Blood Urea Nitrogen 43.7 mg/dL (9.0-27.0); Globulin 2.4 g/dL (1.6-3.3); Non-African American GFR(CKD) 17.5 (60.0-200.0); Potassium 5.4 mmol/L (3.5-5.5); Total Bilirubin 0.2 mg/dL (0.30-1.20); Total Protein 5.6 g/dL (6.2-8.2)
[2021-11-13] MEDS: polyethylene glycoL 3350 17 GM POWD.PACK PO SCH (10:37)
[2021-11-13 11:26] LABS: Glucose,Whole Blood 287 mg/dL (75-99)
[2021-11-13] MEDS: SENNOSIDES 8.6 MG TAB PO SCH (11:50)
[2021-11-13] MEDS: bisacodyL 10 MG SUPP RECTAL SCH ×2 (11:50→12:19)
--- NOTE | 2021-11-13 13:22 | P.DS ---
Providers Date of admission: 11/10/21 14:37 Attending physician: Saman Shea Consults: 11/10/21 14:43 Consult Physician Stat Consulting Provider: Delia Ball Consult Reason/Comments: Hyperkalemia; TERRENCE Do you want consulting provider notified?: Already Contacted 11/12/21 15:06 Consult Physician Routine Consulting Provider: Frank Platt Consult Reason/Comments: [facility] in [place] Do you want consulting provider notified?: Yes Primary care physician: Alberto Lehman [facility] Course: HISTORY OF PRESENT ILLNESS 76-year-old female one of Dr. 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 Patient apparently has not been feeling well for the last 2 weeks was diagnosed with UTI 2 weeks ago started on Bactrim DS which she finished yesterday. She had apparently blood tests of Dr. Lehman office a week ago shows a potassium to be 6.0 was post to have repeat test without having any adjusted medication at the time when she felt really sick today been tired fatigue not been able to ambulate and walk addition to having to have diarrhea with mild nausea and slight bloated abdomen. She ended up coming to the emergency department for the above problem was seen and evaluated surprisingly her potassium was 8.0 and patient was in acute kidney failure at the time with acute kidney injury. Patient was started on hydration was giving some kayaxalate nephrology consultation, ultrasound of the kidney was negative for any major abnormality patient be admitted to the hospital for the above problem. 11/11: Patient is doing much better today, potassium is down to 6.1, GFR is improved some with a creatinine is down to 2.6 compared to yesterday. Clinically has significant improvement with no major pain and discomfort with tiredness and fatigue is much better. Patient will be transfer out of the ICU today we'll continue to monitor potassium tablets at least below 5. Patient will be kept on hydration titrate diet at this point keep watching her blood sugar. 11/12: Patient is doing much better today she's having slight stomach discomfort was transferred out of ICU yesterday to medical floor bed. The kidney function has improved still on close to baseline potassium is down to 5.0. Patient is still on hydration titrate diet titrate physical therapy and hopefully if her numbers are better tomorrow be able to send her home. 11/13: Patient is doing much better today her potassium climb up to 5.4 but still stable kidney function is no different than before, blood sugar was noted bit elevated today. Evaluated by physiatry will require physical therapy. Whether patient will be able to move to inpatient rehab or go home with home care and physical therapy would be left up to her and her family. REVIEW OF SYSTEMS Constitutional: No fever, no chills, no night sweats. No weight change. Positive for weakness fatigue tiredness and sleepiness. EENT: No headache. No blurred vision or double vision, no loss of vision. No loss of Hearing, no ringing in the ears, no dizziness. No nasal drainage or congestion. No epistaxis. No sore throat. Lungs: No shortness of breath, cough, no sputum production. No wheezing. Cardiovascular: Mild congestion but No chest pain, no lower extremity edema. No palpitations. No paroxysmal nocturnal dyspnea. No orthopnea. No lightheadedness or dizziness. No syncopal episodes. Abdominal: No abdominal pain. No nausea, vomiting. No diarrhea. No constipation. No bloody or tarry stools.. No loss of appetite. Genitourinary: Significant decrease in urine output with recent UTI frequency and urgency. Musculoskeletal: Positive generalized myalgia with muscle weakness with abnormal balance gait no fall lately. Integumentary: No wounds, no lesions. No rash or pruritus. No unusual bruising. No change in hair or nails. Neurologic: No aphasia. No facial droop. No change in mentation. No head injury. No headache. No paralysis. No paresthesia. She has more like essential tremor. Psychiatric: No depression. No anxiety. No mood swings. Endocrine: No abnormal blood sugars. No weight change. No excessive sweating or thirst. No cold intolerance. PHYSICAL EXAMINATION Gen: This is mildly overweight look older than her age laying in bed does not look in any respiratory distress. HEENT: Head is atraumatic, normocephalic. Pupils equal, round. Sclerae is anict clyde. NECK: Supple. No JVD. No lymphadenopathy. No thyromegaly. LUNGS: Clear to auscultation. No wheezes or rhonchi. No intercostal retractions. HEART: Regular rate and rhythm. No murmur. Mild arrhythmia with skipped beats. ABDOMEN: Soft. Bowel sounds are present. No masses. Slight discomfort lower abdominal area. EXTREMITIES: 2+ edema with slight discoloration more like chronic lymphedema and dermatitis. NEUROLOGICAL: Patient is awake, alert and oriented x3. Cranial nerves 2 through 12 are 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. She has essential tremor with worsening in her head and neck area and upper extremity. ASSESSMENT AND PLAN 1. Acute kidney injury most likely acute tubular necrosis: Better so far continue to restrict patient from any nephrotoxic agents at this point no potassium, no NURYS inhibitor, no Aldactone. 2 severe hyperkalemia: Potassium is 5.4 sodium bicarbonate twice a day Beginning at this point. 3 type 2 diabetes: Decrease glipizide to 5 mg twice a day off metformin completely will continue Lantus and titrate dose higher if needed. 4 chronic edema and lymphedema: She is off Aldactone and Lasix we'll resume Lasix today. 5 hypertension: Patient is off Benicar and spironolactone Will add amlodipine 5 mg a day also atenolol was quite high dose of time can be decreased down to 50 mg daily only. 6 chronic history of gout: Has been on allopurinol continue medication. 7 hyperlipidemia: Still on simvastatin 20 mg a day. 8 recent urinary tract infection: Patient was on Bactrim DS which probably cause more acute kidney injury with hyperkalemia at this point. 9 chronic iron deficiency anemia: Continue iron supplement watch her hemoglobin. 10 chronic history of kidney stone: Patient was on potassium citrate which will be held for now. Discharge planning: Patient can be discharged today or tomorrow to inpatient rehab for further physical therapy, she will need CMP to be done weekly 2 and every 2 weeks to follow-up with nephrology as an outpatient next few days. Hospital course: Patient was admitted to the hospital severe hyperkalemia at 8.0, was most likely side effect of combination of spironolactone, Benicar HCTZ along with potassium supplement and Bactrim DS. Patient ended up receiving few doses of D50 with insulin along with Kayexalate and sodium bicarbonate drip. Potassium dropped down to 5.0 finally. Patient was in acute kidney failure GFR significantly down with a better management with hydration patient GFR has improved it's back to its baseline from early this year. Patient was started on PT OT was evaluated by physiatry patient will benefit from going to rehab. Plan - Discharge Summary Discharge Rx Participant: No New Discharge Prescriptions: New polyethylene glycoL 3350 [Miralax] 17 gm PO DAILY packet hydroCHLOROthiazide [Hydrodiuril] 25 mg PO DAILY tab INSULIN ASPART (NovoLOG) [NovoLOG (formulary)] 0 unit SQ ACHS ml Acetaminophen Tab [Tylenol] 650 mg PO Q4HR PRN tab PRN Reason: Fever And/Or Mild Pain amLODIPine [Norvasc] 5 mg PO DAILY #30 tab Continue glipiZIDE [Glipizide] 10 mg PO AC-BID Simvastatin [Zocor] 20 mg PO HS Aspirin 81 mg PO DAILY Insulin Glargine,Hum.rec.anlog [Lantus Solostar Pen] 55 unit SQ HS Clotrimazole/Betameth Cream [Lotrisone] 1 applic TOPICAL BID Allopurinol [Zyloprim] 100 mg PO DAILY Magnesium Oxide [Petty] 500 mg PO DAILY Ferrous Sulfate [Iron (65 MG Elemental)] 325 mg PO DAILY Docusate [Colace] 100 mg PO DAILY Cyanocobalamin (Vitamin B-12) [Vitamin B-12] 2,500 mcg PO DAILY Discontinued Atenolol 100 mg PO BID metFORMIN HCL [Glucophage] 850 mg PO DAILY Potassium Citrate [Urocit-K] 15 meq PO DAILY Olmesartan/Hydrochlorothiazide [Olmesartan-Hctz 40-25 mg Tab] 1 tab PO DAILY Discharge Medication List Aspirin 81 mg PO DAILY 07/18/14 [History] Simvastatin [Zocor] 20 mg PO HS 07/18/14 [History] glipiZIDE [Glipizide] 10 mg PO AC-BID 07/18/14 [History] Insulin Glargine,Hum.rec.anlog [Lantus Solostar Pen] 55 unit SQ HS 09/30/17 [History] Allopurinol [Zyloprim] 100 mg PO DAILY 11/10/21 [History] Clotrimazole/Betameth Cream [Lotrisone] 1 applic TOPICAL BID 11/10/21 [History] Cyanocobalamin (Vitamin B-12) [Vitamin B-12] 2,500 mcg PO DAILY 11/10/21 [History] Docusate [Colace] 100 mg PO DAILY 11/10/21 [History] Ferrous Sulfate [Iron (65 MG Elemental)] 325 mg PO DAILY 11/10/21 [History] Magnesium Oxide [Petty] 500 mg PO DAILY 11/10/21 [History] Acetaminophen Tab [Tylenol] 650 mg PO Q4HR PRN tab 11/13/21 [Rx] INSULIN ASPART (NovoLOG) [NovoLOG (formulary)] 0 unit SQ ACHS ml 11/13/21 [Rx] amLODIPine [Norvasc] 5 mg PO DAILY #30 tab 11/13/21 [Rx] hydroCHLOROthiazide [Hydrodiuril] 25 mg PO DAILY tab 11/13/21 [Rx] polyethylene glycoL 3350 [Miralax] 17 gm PO DAILY packet 11/13/21 [Rx] Follow up Appointment(s)/Referral(s): Delia Ball MD [STAFF PHYSICIAN] - 11/25/21 10:40 am Alberto Lehman DO [Primary Care Provider] - 11/26/21 3:00 pm [facility] Visiting Nurse, [NON-STAFF] - 1 Week Ambulatory/Diagnostic Orders: Comprehensive Metabolic Panel [LAB.AMB] Location: None Selected Discharge Disposition: OTHER INSTITUTION NOT DEFINED
--- NOTE | 2021-11-13 14:28 | P.PN ---
Subjective Patient is seen for follow-up for acute kidney injury and severe hyperkalemia associated with use of angiotensin receptor blockers, Bactrim and Aldactone. Serum potassium has improved Renal function is also improved. No significant complaints today. Overall much improved. Objective - Vital Signs Vital signs: Vital Signs Temp 98.4 F 11/13/21 07:53 Pulse 69 11/13/21 07:53 Resp 16 11/13/21 07:53 BP 127/78 11/13/21 07:53 Pulse Ox 95 11/13/21 07:53 Intake & Output 11/12/21 11/13/21 11/13/21 18:59 06:59 18:59 Output Total 1000 Balance -1000 Output: Urine 1000 Other: Voiding Method Indwelling Catheter Indwelling Catheter # Voids 1 # Bowel Movements 1 - Exam Patient is awake comfortable not in any acute distress. Examination of the heart S1 and S2 Examination lungs bilateral breath sounds are heard Abdomen is soft nontender Exertion lower extremities shows no significant edema Melol DENTISTRY PROFESSOR exam 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 - Labs CBC & Chem 7: 11/13/21 06:04 11/13/21 06:04 Labs: Abnormal Lab Results - Last 24 Hours (Table) 11/12/21 11/12/21 11/13/21 Range/Units 16:51 20:47 02:04 WBC (4.50-10.00) X 10*3/uL RBC (4.10-5.20) X 10*6/uL Hgb (12.0-15.0) g/dL MCHC (32.0-37.0) g/dL MPV (9.5-12.2) fL BUN (9.0-27.0) mg/dL Creatinine (0.6-1.5) mg/dL Est GFR (CKD-EPI)AfAm (60.0-200.0) Est GFR (CKD-EPI)NonAf (60.0-200.0) Glucose (70-110) mg/dL POC Glucose (mg/dL) 277 H 259 H 313 H (75-99) mg/dL Total Bilirubin (0.30-1.20) mg/dL Total Protein (6.2-8.2) g/dL Albumin (3.8-4.9) g/dL Albumin/Globulin Ratio (1.60-3.17) g/dL 0311/13/21 11/13/21 Range/Units 06:04 06:04 07:01 WBC 10.70 H (4.50-10.00) X 10*3/uL RBC 4.03 L (4.10-5.20) X 10*6/uL Hgb 11.9 L (12.0-15.0) g/dL MCHC 30.5 L (32.0-37.0) g/dL MPV 9.1 L (9.5-12.2) fL BUN 43.7 H (9.0-27.0) mg/dL Creatinine 2.6 H (0.6-1.5) mg/dL Est GFR (CKD-EPI)AfAm 20.2 L (60.0-200.0) Est GFR (CKD-EPI)NonAf 17.5 L (60.0-200.0) Glucose 151 H (70-110) mg/dL POC Glucose (mg/dL) 147 H (75-99) mg/dL Total Bilirubin 0.20 L (0.30-1.20) mg/dL Total Protein 5.6 L (6.2-8.2) g/dL Albumin 3.2 L (3.8-4.9) g/dL Albumin/Globulin Ratio 1.33 L (1.60-3.17) g/dL 11/13/21 Range/Units 11:23 WBC (4.50-10.00) X 10*3/uL RBC (4.10-5.20) X 10*6/uL Hgb (12.0-15.0) g/dL MCHC (32.0-37.0) g/dL MPV (9.5-12.2) fL BUN (9.0-27.0) mg/dL Creatinine (0.6-1.5) mg/dL Est GFR (CKD-EPI)AfAm (60.0-200.0) Est GFR (CKD-EPI)NonAf (60.0-200.0) Glucose (70-110) mg/dL POC Glucose (mg/dL) 287 H (75-99) mg/dL Total Bilirubin (0.30-1.20) mg/dL Total Protein (6.2-8.2) g/dL Albumin (3.8-4.9) g/dL Albumin/Globulin Ratio (1.60-3.17) g/dL Assessment and Plan Assessment: 1. Acute kidney injury prerenal with ATN component currently improving. Nonoliguric. Maintained on IV fluids. No hydronephrosis on ultrasound. UA is quite bland 2. Hyperkalemia associated with acute kidney injury, metabolic acidosis and use of Bactrim recently in the setting of use of angiotensin receptor blockers 3. Metabolic acidosis associated with acute kidney injury currently improved 4. Chronic kidney disease NKF stage IIIB secondary to nephrosclerosis, with previous creatinine at 1.4 on 05/20/2021 but 2.0 on 11/02/2021 5. Recent urinary tract infection status post treatment with Bactrim 6. Type 2 diabetes maintained on metformin as outpatient currently on hold Plan: Lokelma 10 g by mouth 1 Will DC oral sodium bicarb tomorrow depending on labs Continue to avoid Cliff inhibitors/angiotensin receptor blockers May continue with the thiazide diuretics Repeat labs in a.m.
[2021-11-13 16:27] LABS: Glucose,Whole Blood 315 mg/dL (75-99)
[2021-11-13 21:44] LABS: Glucose,Whole Blood 249 mg/dL (75-99)
[2021-11-13] MEDS: INSULIN DETEMIR (LEVEMIR) 100 UNIT/ML SYR SQ SCH (22:28)
[2021-11-13] MEDS: SODIUM BICARBONATE TAB 650 MG TAB PO SCH (22:28)
[2021-11-13] MEDS: ATORVASTATIN 10 MG TAB PO SCH (22:28)
[2021-11-14 02:02] LABS: Glucose,Whole Blood 263 mg/dL (75-99)
[2021-11-14] MEDS: LACTATED RINGERS 1,000 ML IV SCH ×2 (06:08→18:07)
[2021-11-14 07:27] LABS: Glucose,Whole Blood 203 mg/dL (75-99)
[2021-11-14] MEDS: HEPARIN SODIUM,PORCINE/PF 5,000 UNIT/0.5 ML SYRINGE SQ SCH ×2 (07:51→21:12)
[2021-11-14] MEDS: CYANOCOBALAMIN 500 MCG TAB PO SCH ×2 (07:52→07:53)
[2021-11-14] MEDS: ASPIRIN 81 MG PO SCH (07:52)
[2021-11-14] MEDS: DOCUSATE 100 MG CAP PO SCH ×2 (07:52→21:12)
[2021-11-14] MEDS: glipiZIDE 5 MG TAB PO SCH ×2 (07:52→18:00)
[2021-11-14] MEDS: allopurinoL 100 MG TAB PO SCH (07:52)
[2021-11-14] MEDS: hydroCHLOROthiazide 25 MG TAB PO SCH (07:52)
[2021-11-14] MEDS: SENNOSIDES 8.6 MG TAB PO SCH (07:52)
[2021-11-14] MEDS: INSULIN ASPART (NovoLOG) 100 UNIT/ML VIAL SQ SCH ×4 (07:53→21:13)
[2021-11-14] MEDS: MAGNESIUM OXIDE 400 MG TAB PO SCH (07:53)
[2021-11-14] MEDS: SODIUM BICARBONATE TAB 650 MG TAB PO SCH ×2 (07:53→21:13)
[2021-11-14] MEDS: FERROUS SULFATE 325 MG TAB PO SCH (07:53)
[2021-11-14] MEDS: polyethylene glycoL 3350 17 GM POWD.PACK PO SCH (07:53)
[2021-11-14 08:42] LABS: HCT 39.6 % (37.2-46.3); HGB 12.2 g/dL (12.0-15.0); MCH 29.5 pg (27.0-32.0); MCHC 30.8 g/dL (32.0-37.0); MCV 95.9 fL (80.0-97.0); Mean Platelet Volume 9.3 fL (9.5-12.2); NRBC Per 100 WBC 0 /100 WBCS (0.0-0.0); Platelet Count 280 X 10*3/uL (140-440); RBC 4.13 X 10*6/uL (4.10-5.20); RDW 12.7 % (11.5-14.5); WBC 9.76 X 10*3/uL (4.50-10.00)
[2021-11-14 08:57] LABS: African American GFR (CKD) 24.8 (60.0-200.0); Albumin 3.4 g/dL (3.8-4.9); Albumin/Globulin Ratio 1.31 (1.60-3.17); Anion Gap 12.4 mmol/L (10.00-18.00); BUN/Creat Ratio 18.68 Ratio (12.00-20.00); Blood Urea Nitrogen 41.1 mg/dL (9.0-27.0); Calcium 9.1 mg/dL (8.7-10.3); Carbon Dioxide 22.6 mmol/L (20.0-27.5); Globulin 2.6 g/dL (1.6-3.3); Non-African American GFR(CKD) 21.4 (60.0-200.0); Potassium 5.8 mmol/L (3.5-5.5); Total Bilirubin 0.2 mg/dL (0.30-1.20)
[2021-11-14] MEDS ORDERED: SODIUM ZIRCONIUM CYCLOSILICATE 10 GM PACKET PO ONE (10:00)
[2021-11-14] MEDS: bisacodyL 10 MG SUPP RECTAL SCH (10:27)
--- NOTE | 2021-11-14 10:51 | P.PN ---
Subjective Progress Note Date: 11/14/21 HISTORY OF PRESENT ILLNESS 76-year-old female one of Dr. Lehman patient is known to have history of type 2 diabetes, chronic kidney disease, history of rheumatoid arthritis, hi story of CAD, history of hypertension and hyperlipidemia who seen ct scan tech in [facility] and stop seen her senior accountant analyst last few month who is also known to have chronic history of anasarca and edema has been on chronic diuretics use with spironolactone 100 mg a day and Lasix 20 mg daily. Patient apparently has not been feeling well for the last 2 weeks was diagnosed with UTI 2 weeks ago started on Bactrim DS which she finished yesterday. She had apparently blood tests of Dr. Lehman office a week ago shows a potassium to be 6.0 was post to have repeat test without having any adjusted medication at the time when she felt really sick today been tired fatigue not been able to a mbulate and walk addition to having to have diarrhea with mild nausea and slight bloated abdomen. She ended up coming to the emergency department for the above problem was seen and evaluated surprisingly her potassium was 8.0 and patient was in acute kidney failure at the time with acute kidney injury. Patient was started on hydration was giving some kayaxalate nephrology consultation, ultrasound of the kidney was negative for any major abnormality patient be admitted to the hospital for the above problem. 11/11: Patient is doing much better today, potassium is down to 6.1, GFR is improved some with a creatinine is down to 2.6 compared to yesterday. Clinically has significant improvement with no major pain and discomfort with tiredness and fatigue is much better. Patient will be transfer out of the ICU today we'll continue to monitor potassium tablets at least below 5. Patient will be kept on hydration titrate diet at this point keep watching her blood sugar. 11/12: Patient is doing much better today she's having slight stomach discomfort was transferred out of ICU yesterday to medical floor bed. The kidney function has improved still on close to baseline potassium is down to 5.0. Patient is still on hydration titrate diet titrate physical therapy and hopefully if her numbers are better tomorrow be able to send her home. 11/13: Patient is doing much better today her potassium climb up to 5.4 but still stable kidney function is no different than before, blood sugar was noted bit elevated today. Evaluated by physiatry will require physical therapy. Whether patient will be able to move to inpatient rehab or go home with home care and physical therapy would be left up to her and her family. 11/14: Patient did not make it to rehab yesterday. Her potassium today is up to 5.8, apparently the hospital does scary leukoma in stock we will give patient 10 mg 1 time today then 5 mg every day for 7 days repeat CMP tomorrow the meanwhile kidney function has improved some patient mental status is much better mobility still significantly decrease this to require physical therapy. REVIEW OF SYSTEMS Constitutional: No fever, no chills, no night sweats. No weight change. Positive for weakness fatigue tiredness and sleepiness. EENT: No headache. No blurred vision or double vision, no loss of vision. No loss of Hearing, no ringing in the ears, no dizziness. No nasal drainage or congestion. No epistaxis. No sore throat. Lungs: No shortness of breath, cough, no sputum production. No wheezing. Cardiovascular: Mild congestion but No chest pain, no lower extremity edema. No palpitations. No paroxysmal nocturnal dyspnea. No orthopnea. No lightheadedness or dizziness. No syncopal episodes. Abdominal: No abdominal pain. No nausea, vomiting. No diarrhea. No constipation. No bloody or tarry stools.. No loss of appetite. Genitourinary: Significant decrease in urine output with recent UTI frequency and urgency. Musculoskeletal: Positive generalized myalgia with muscle weakness with abnormal balance gait no fall lately. Integumentary: No wounds, no lesions. No rash or pruritus. No unusual bruising. No change in hair or nails. Neurologic: No aphasia. No facial droop. No change in mentation. No head injury. No headache. No paralysis. No paresthesia. She has more like essential tremor. Psychiatric: No depression. No anxiety. No mood swings. Endocrine: No abnormal blood sugars. No weight change. No excessive sweating or thirst. No cold intolerance. PHYSICAL EXAMINATION Gen: This is mildly overweight look older than her age laying in bed does not look in any respiratory distress. HEENT: Head is atraumatic, normocephalic. Pupils equal, round. Sclerae is anicteric. NECK: Supple. No JVD. No lymphadenopathy. No thyromegaly. LUNGS: Clear to auscultation. No wheezes or rhonchi. No intercostal retractions. HEART: Regular rate and rhythm. No murmur. Mild arrhythmia with skipped beats. ABDOMEN: Soft. Bowel sounds are present. No masses. Slight discomfort lower abdominal area. EXTREMITIES: 2+ edema with slight discoloration more like chronic lymphedema and dermatitis. NEUROLOGICAL: Patient is awake, alert and oriented x3. Cranial nerves 2 through 12 are 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. She has essential tremor with worsening in her head and neck area and upper extremity. ASSESSMENT AND PLAN 1. Acute kidney injury most likely acute tubular necrosis: Much better so far continue to improve. 2 severe hyperkalemia: Potassium is up again to 5.8 we will start leukoma 10 mg today 5 mg every day for 7 days repeat CMP tomorrow. 3 type 2 diabetes: Decrease glipizide to 5 mg twice a day off metformin completely will continue Lantus and titrate dose higher if needed. 4 chronic edema and lymphedema: She is off Aldactone and Lasix we'll resume Lasix today. 5 hypertension: Patient is off Benicar and spironolactone Will add amlodipine 5 mg a day also atenolol was quite high dose of time can be decreased down to 50 mg daily only. 6 chronic history of gout: Has been on allopurinol continue medication. 7 hyperlipidemia: Still on simvastatin 20 mg a day. 8 recent urinary tract infection: Patient was on Bactrim DS which probably cause more acute kidney injury with hyperkalemia at this point. 9 chronic iron deficiency anemia: Continue iron supplement watch her hemoglobin. 10 chronic history of kidney stone: Patient was on potassium citrate which will be held for now. Discharge planning: We'll continue current management patient probably will be in the hospital Tuesday will be going to rehab by then. Objective - Vital Signs Vital signs: Vital Signs Temp 97.9 F 11/14/21 08:00 Pulse 78 11/14/21 08:00 Resp 14 11/14/21 08:00 BP 135/65 11/14/21 08:00 Pulse Ox 94 L 11/14/21 08:00 Intake & Output 11/13/21 11/14/21 11/14/21 18:59 06:59 18:59 Other: Voiding Method Bedside Commode # Voids 2 # Bowel Movements 1 - Labs CBC & Chem 7: 11/14/21 06:26 11/14/21 06:26 Labs: Abnormal Lab Results - Last 24 Hours (Table) 11/13/21 11/13/21 11/13/21 Range/Units 11:23 16:24 21:37 MCHC (32.0-37.0) g/dL MPV (9.5-12.2) fL Potassium (3.5-5.5) mmol/L BUN (9.0-27.0) mg/dL Creatinine (0.6-1.5) mg/dL Est GFR (CKD-EPI)AfAm (60.0-200.0) Est GFR (CKD-EPI)NonAf (60.0-200.0) Glucose (70-110) mg/dL POC Glucose (mg/dL) 287 H 315 H 249 H (75-99) mg/dL Total Bilirubin (0.30-1.20) mg/dL Total Protein (6.2-8.2) g/dL Albumin (3.8-4.9) g/dL Albumin/Globulin Ratio (1.60-3.17) g/dL 11/14/21 11/14/21 11/14/21 Range/Units 01:46 06:26 06:26 MCHC 30.8 L (32.0-37.0) g/dL MPV 9.3 L (9.5-12.2) fL Potassium 5.8 H (3.5-5.5) mmol/L BUN 41.1 H (9.0-27.0) mg/dL Creatinine 2.2 H (0.6-1.5) mg/dL Est GFR (CKD-EPI)AfAm 24.8 L (60.0-200.0) Est GFR (CKD-EPI)NonAf 21.4 L (60.0-200.0) Glucose 221 H (70-110) mg/dL POC Glucose (mg/dL) 263 H (75-99) mg/dL Total Bilirubin 0.20 L (0.30-1.20) mg/dL Total Protein 6.0 L (6.2-8.2) g/dL Albumin 3.4 L (3.8-4.9) g/dL Albumin/Globulin Ratio 1.31 L (1.60-3.17) g/dL 11/14/21 Range/Units 07:26 MCHC (32.0-37.0) g/dL MPV (9.5-12.2) fL Potassium (3.5-5.5) mmol/L BUN (9.0-27.0) mg/dL Creatinine (0.6-1.5) mg/dL Est GFR (CKD-EPI)AfAm (60.0-200.0) Est GFR (CKD-EPI)NonAf (60.0-200.0) Glucose (70-110) mg/dL POC Glucose (mg/dL) 203 H (75-99) mg/dL Total Bilirubin (0.30-1.20) mg/dL Total Protein (6.2-8.2) g/dL Albumin (3.8-4.9) g/dL Albumin/Globulin Ratio (1.60-3.17) g/dL Microbiology - Last 24 Hours (Table) 11/11/21 17:50 Urine Culture - Final Urine,Catheterized
[2021-11-14 12:00] LABS: Glucose,Whole Blood 483 mg/dL (75-99)
[2021-11-14] MEDS ORDERED: FUROSEMIDE 10 MG/ML 4 ML VIAL IV STA (12:57)
--- NOTE | 2021-11-14 12:59 | P.PN ---
Subjective Patient is seen for follow-up for acute kidney injury and severe hyperkalemia associated with use of angiotensin receptor blockers, Bactrim and Aldactone. Serum potassium has improved Renal function is also improved. No significant complaints today. Overall much improved. Objective - Vital Signs Vital signs: Vital Signs Temp 97.9 F 11/14/21 08:00 Pulse 78 11/14/21 08:00 Resp 14 11/14/21 08:00 BP 135/65 11/14/21 08:00 Pulse Ox 94 L 11/14/21 08:00 Intake & Output 11/13/21 11/14/21 11/14/21 18:59 06:59 18:59 Other: Voiding Method Bedside Commode Bedside Commode # Voids 2 # Bowel Movements 1 - Exam Patient is awake comfortable not in any acute distress. 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 MACHINIST exam 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 - Labs CBC & Chem 7: 11/14/21 06:26 11/14/21 06:26 Labs: Abnormal Lab Results - Last 24 Hours (Table) 11/13/21 11/13/21 11/14/21 Range/Units 16:24 21:37 01:46 MCHC (32.0-37.0) g/dL MPV (9.5-12.2) fL Potassium (3.5-5.5) mmol/L BUN (9.0-27.0) mg/dL Creatinine (0.6-1.5) mg/dL Est GFR (CKD-EPI)AfAm (60.0-200.0) Est GFR (CKD-EPI)NonAf (60.0-200.0) Glucose (70-110) mg/dL POC Glucose (mg/dL) 315 H 249 H 263 H (75-99) mg/dL Total Bilirubin (0.30-1.20) mg/dL Total Protein (6.2-8.2) g/dL Albumin (3.8-4.9) g/dL Albumin/Globulin Ratio (1.60-3.17) g/dL 11/14/21 11/14/21 11/14/21 Range/Units 06:26 06:26 07:26 MCHC 30.8 L (32.0-37.0) g/dL MPV 9.3 L (9.5-12.2) fL Potassium 5.8 H (3.5-5.5) mmol/L BUN 41.1 H (9.0-27.0) mg/dL Creatinine 2.2 H (0.6-1.5) mg/dL Est GFR (CKD-EPI)AfAm 24.8 L (60.0-200.0) Est GFR (CKD-EPI)NonAf 21.4 L (60.0-200.0) Glucose 221 H (70-110) mg/dL POC Glucose (mg/dL) 203 H (75-99) mg/dL Total Bilirubin 0.20 L (0.30-1.20) mg/dL Total Protein 6.0 L (6.2-8.2) g/dL Albumin 3.4 L (3.8-4.9) g/dL Albumin/Globulin Ratio 1.31 L (1.60-3.17) g/dL 11/14/21 Range/Units 11:59 MCHC (32.0-37.0) g/dL MPV (9.5-12.2) fL Potassium (3.5-5.5) mmol/L BUN (9.0-27.0) mg/dL Creatinine (0.6-1.5) mg/dL Est GFR (CKD-EPI)AfAm (60.0-200.0) Est GFR (CKD-EPI)NonAf (60.0-200.0) Glucose (70-110) mg/dL POC Glucose (mg/dL) 483 H (75-99) mg/dL Total Bilirubin (0.30-1.20) mg/dL Total Protein (6.2-8.2) g/dL Albumin (3.8-4.9) g/dL Albumin/Globulin Ratio (1.60-3.17) g/dL Microbiology - Last 24 Hours (Table) 11/11/21 17:50 Urine Culture - Final Urine,Catheterized Assessment and Plan Assessment: 1. Acute kidney injury prerenal with ATN component currently improving. Nonoliguric. Maintained on IV fluids. No hydronephrosis on ultrasound. UA is quite bland 2. Hyperkalemia associated with acute kidney injury, metabolic acidosis and use of Bactrim recently in the setting of use of angiotensin receptor blockers 3. Metabolic acidosis associated with acute kidney injury currently improved 4. Chronic kidney disease NKF stage IIIB secondary to nephrosclerosis, with previous creatinine at 1.4 on 05/20/2021 but 2.0 on 11/02/2021 5. Recent urinary tract infection status post treatment with Bactrim 6. Type 2 diabetes maintained on metformin as outpatient currently on hold Plan: Repeat lokelma Continue with oral sodium bicarb Continue to avoid Cliff inhibitors/angiotensin receptor blockers Change thiazide diuretics to loop diuretics to help with the potassium Treat constipation Repeat labs in a.m.
[2021-11-14 16:56] LABS: Glucose,Whole Blood 322 mg/dL (75-99)
[2021-11-14 20:52] LABS: Glucose,Whole Blood 437 mg/dL (75-99)
[2021-11-14] MEDS: ATORVASTATIN 10 MG TAB PO SCH (21:12)
[2021-11-14] MEDS: INSULIN DETEMIR (LEVEMIR) 100 UNIT/ML SYR SQ SCH (21:13)
[2021-11-15 01:44] LABS: Glucose,Whole Blood 241 mg/dL (75-99)
[2021-11-15] MEDS ORDERED: INSULIN ASPART (NovoLOG) 100 UNIT/ML VIAL SQ ONE (01:57)
[2021-11-15 07:14] LABS: Glucose,Whole Blood 205 mg/dL (75-99)
[2021-11-15] MEDS: allopurinoL 100 MG TAB PO SCH (07:45)
[2021-11-15] MEDS: HEPARIN SODIUM,PORCINE/PF 5,000 UNIT/0.5 ML SYRINGE SQ SCH ×2 (07:45→21:58)
[2021-11-15] MEDS: DOCUSATE 100 MG CAP PO SCH ×2 (07:45→21:58)
[2021-11-15] MEDS: FUROSEMIDE 40 MG TAB PO SCH (07:45)
[2021-11-15] MEDS: MAGNESIUM OXIDE 400 MG TAB PO SCH (07:45)
[2021-11-15] MEDS: FERROUS SULFATE 325 MG TAB PO SCH (07:45)
[2021-11-15] MEDS: SODIUM BICARBONATE TAB 650 MG TAB PO SCH ×2 (07:46→21:58)
[2021-11-15] MEDS: INSULIN ASPART (NovoLOG) 100 UNIT/ML VIAL SQ SCH ×4 (07:46→21:59)
[2021-11-15] MEDS: ASPIRIN 81 MG PO SCH (07:46)
[2021-11-15] MEDS: CYANOCOBALAMIN 500 MCG TAB PO SCH (07:46)
[2021-11-15] MEDS: SENNOSIDES 8.6 MG TAB PO SCH (07:46)
[2021-11-15] MEDS: glipiZIDE 5 MG TAB PO SCH ×2 (07:46→18:05)
[2021-11-15] MEDS: LACTATED RINGERS 1,000 ML IV SCH ×2 (07:47→22:09)
[2021-11-15] MEDS: bisacodyL 10 MG SUPP RECTAL SCH (07:47)
[2021-11-15] MEDS: SODIUM ZIRCONIUM CYCLOSILICATE 10 GM PACKET PO SCH (07:55)
[2021-11-15] MEDS: polyethylene glycoL 3350 17 GM POWD.PACK PO SCH (07:56)
--- NOTE | 2021-11-15 09:26 | P.PN ---
Subjective Progress Note Date: 11/15/21 HISTORY OF PRESENT ILLNESS 76-year-old female one of Dr. Lehman patient is known to have history of type 2 diabetes, chronic kidney disease, history of rheumatoid arthritis, hi story of CAD, history of hypertension and hyperlipidemia who seen cataract lens generator in [facility] and stop seen her wild animal caretaker last few month who is also known to have chronic history of anasarca and edema has been on chronic diuretics use with spironolactone 100 mg a day and Lasix 20 mg daily. Patient apparently has not been feeling well for the last 2 weeks was diagnosed with UTI 2 weeks ago started on Bactrim DS which she finished yesterday. She had apparently blood tests of Dr. Lehman office a week ago shows a potassium to be 6.0 was post to have repeat test without having any adjusted medication at the time when she felt really sick today been tired fatigue not been able to a mbulate and walk addition to having to have diarrhea with mild nausea and slight bloated abdomen. She ended up coming to the emergency department for the above problem was seen and evaluated surprisingly her potassium was 8.0 and patient was in acute kidney failure at the time with acute kidney injury. Patient was started on hydration was giving some kayaxalate nephrology consultation, ultrasound of the kidney was negative for any major abnormality patient be admitted to the hospital for the above problem. 11/11: Patient is doing much better today, potassium is down to 6.1, GFR is improved some with a creatinine is down to 2.6 compared to yesterday. Clinically has significant improvement with no major pain and discomfort with tiredness and fatigue is much better. Patient will be transfer out of the ICU today we'll continue to monitor potassium tablets at least below 5. Patient will be kept on hydration titrate diet at this point keep watching her blood sugar. 11/12: Patient is doing much better today she's having slight stomach discomfort was transferred out of ICU yesterday to medical floor bed. The kidney function has improved still on close to baseline potassium is down to 5.0. Patient is still on hydration titrate diet titrate physical therapy and hopefully if her numbers are better tomorrow be able to send her home. 11/13: Patient is doing much better today her potassium climb up to 5.4 but still stable kidney function is no different than before, blood sugar was noted bit elevated today. Evaluated by physiatry will require physical therapy. Whether patient will be able to move to inpatient rehab or go home with home care and physical therapy would be left up to her and her family. 11/14: Patient did not make it to rehab yesterday. Her potassium today is up to 5.8, apparently the hospital does scary leukoma in stock we will give patient 10 mg 1 time today then 5 mg every day for 7 days repeat CMP tomorrow the meanwhile kidney function has improved some patient mental status is much better mobility still significantly decrease this to require physical therapy. 11/15: Patient will be going to [facility] rehab tomorrow apparently the rehab center at [place] did not accept her. Her potassium is pending this morning we started leukoma yesterday patient is not having any side effects so far. Patient is complaining of dryness and slight nosebleed mostly from the left side will use Mk-Synephrine nasal spray 3 times a day today and an as-needed basis afterward plus patient to change the humidity in her house and probably to using him to fight oxygen if she ever need to go back on nasal cannula. Physical therapy and mobility improved some. REVIEW OF SYSTEMS Constitutional: No fever, no chills, no night sweats. No weight change. Positive for weakness fatigue tiredness and sleepiness. EENT: No headache. No blurred vision or double vision, no loss of vision. No loss of Hearing, no ringing in the ears, no dizziness. No nasal drainage or congestion. No epistaxis. No sore throat. Lungs: No shortness of breath, cough, no sputum production. No wheezing. Cardiovascular: Mild congestion but No chest pain, no lower extremity edema. No palpitations. No paroxysmal nocturnal dyspnea. No orthopnea. No lighthea dedness or dizziness. No syncopal episodes. Abdominal: No abdominal pain. No nausea, vomiting. No diarrhea. No constipation. No bloody or tarry stools.. No loss of appetite. Genitourinary: Significant decrease in urine output with recent UTI frequency and urgency. Musculoskeletal: Positive generalized myalgia with muscle weakness with abnormal balance gait no fall lately. Integumentary: No wounds, no lesions. No rash or pruritus. No unusual bruising. No change in hair or nails. Neurologic: No aphasia. No facial droop. No change in mentation. No head injury. No headache. No paralysis. No paresthesia. She has more like essential tremor. Psychiatric: No depression. No anxiety. No mood swings. Endocrine: No abnormal blood sugars. No weight change. No excessive sweating or thirst. No cold intolerance. PHYSICAL EXAMINATION Gen: This is mildly overweight look older than her age laying in bed does not look in any respiratory distress. HEENT: Head is atraumatic, normocephalic. Pupils equal, round. Sclerae is anicteric. NECK: Supple. No JVD. No lymphadenopathy. No thyromegaly. LUNGS: Clear to auscultation. No wheezes or rhonchi. No intercostal retractions. HEART: Regular rate and rhythm. No murmur. Mild arrhythmia with skipped beats. ABDOMEN: Soft. Bowel sounds are present. No masses. Slight discomfort lower abdominal area. EXTREMITIES: 2+ edema with slight discoloration more like chronic lymphedema and dermatitis. NEUROLOGICAL: Patient is awake, alert and oriented x3. Cranial nerves 2 through 12 are 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. She has essential tremor with worsening in her head and neck area and upper extremity. ASSESSMENT AND PLAN 1. Acute kidney injury most likely acute tubular necrosis: Much better so far continue to improve. Labs pending today continue gentle hydration and repeated daily. 2 severe hyperkalemia: Potassium is up again to 5.8 we will start leukoma 10 mg today 5 mg every day for 7 days repeat CMP tomorrow. 3 type 2 diabetes: Decrease glipizide to 5 mg twice a day off metformin comple tely will continue Lantus and titrate dose higher if needed. 4 chronic edema and lymphedema: She will be started back on Lasix today. 5 hypertension: Patient is off Benicar and spironolactone Will add amlodipine 5 mg a day also atenolol was quite high dose of time can be decreased down to 50 m g daily only. She will continue from now on amlodipine 5 mg a day and atenolol 50 mg daily. 6 chronic history of gout: Has been on allopurinol continue medication. 7 hyperlipidemia: Still on simvastatin 20 mg a day. 8 recent urinary tract infection: Patient was on Bactrim DS which probably cause more acute kidney injury with hyperkalemia at this point. 9 chronic iron deficiency anemia: Continue iron supplement watch her hemoglobin. 10 chronic history of kidney stone: Patient was on potassium citrate which will be held for now. Discharge planning: Patient be transferred to inpatient rehab [facility] tomorrow. Objective - Vital Signs Vital signs: Vital Signs Temp 97.8 F 11/15/21 01:38 Pulse 77 11/15/21 01:38 Resp 18 11/15/21 01:38 BP 136/79 11/15/21 01:38 Pulse Ox 98 11/15/21 01:38 Intake & Output 11/14/21 11/15/21 11/15/21 17:59 06:59 18:59 Other: Voiding Method # Voids - Labs CBC & Chem 7: 11/14/21 06:26 11/14/21 06:26 Labs: Abnormal Lab Results - Last 24 Hours (Table) 11/14/21 11/14/21 11/14/21 Range/Units 06:26 06:26 11:59 MCHC 30.8 L (32.0-37.0) g/dL MPV 9.3 L (9.5-12.2) fL Potassium 5.8 H (3.5-5.5) mmol/L BUN 41.1 H (9.0-27.0) mg/dL Creatinine 2.2 H (0.6-1.5) mg/dL Est GFR (CKD-EPI)AfAm 24.8 L (60.0-200.0) Est GFR (CKD-EPI)NonAf 21.4 L (60.0-200.0) Glucose 221 H (70-110) mg/dL POC Glucose (mg/dL) 483 H (75-99) mg/dL Total Bilirubin 0.20 L (0.30-1.20) mg/dL Total Protein 6.0 L (6.2-8.2) g/dL Albumin 3.4 L (3.8-4.9) g/dL Albumin/Globulin Ratio 1.31 L (1.60-3.17) g/dL 11/14/21 11/14/21 11/15/21 Range/Units 16:54 20:50 01:36 MCHC (32.0-37.0) g/dL MPV (9.5-12.2) fL Potassium (3.5-5.5) mmol/L BUN (9.0-27.0) mg/dL Creatinine (0.6-1.5) mg/dL Est GFR (CKD-EPI)AfAm (60.0-200.0) Est GFR (CKD-EPI)NonAf (60.0-200.0) Glucose (70-110) mg/dL POC Glucose (mg/dL) 322 H 437 H 241 H (75-99) mg/dL Total Bilirubin (0.30-1.20) mg/dL Total Protein (6.2-8.2) g/dL Albumin (3.8-4.9) g/dL Albumin/Globulin Ratio (1.60-3.17) g/dL 11/15/21 Range/Units 07:13 MCHC (32.0-37.0) g/dL MPV (9.5-12.2) fL Potassium (3.5-5.5) mmol/L BUN (9.0-27.0) mg/dL Creatinine (0.6-1.5) mg/dL Est GFR (CKD-EPI)AfAm (60.0-200.0) Est GFR (CKD-EPI)NonAf (60.0-200.0) Glucose (70-110) mg/dL POC Glucose (mg/dL) 205 H (75-99) mg/dL Total Bilirubin (0.30-1.20) mg/dL Total Protein (6.2-8.2) g/dL Albumin (3.8-4.9) g/dL Albumin/Globulin Ratio (1.60-3.17) g/dL
[2021-11-15 11:44] LABS: HCT 39.7 % (37.2-46.3); HGB 12.1 g/dL (12.0-15.0); MCH 28.9 pg (27.0-32.0); MCHC 30.5 g/dL (32.0-37.0); Mean Platelet Volume 9.3 fL (9.5-12.2); NRBC Per 100 WBC 0 /100 WBCS (0.0-0.0); Platelet Count 304 X 10*3/uL (140-440); RBC 4.18 X 10*6/uL (4.10-5.20); RDW 12.6 % (11.5-14.5); WBC 10.83 X 10*3/uL (4.50-10.00)
[2021-11-15 11:59] LABS: Glucose,Whole Blood 335 mg/dL (75-99)
[2021-11-15 12:05] LABS: ALT 37 U/L (8-44); AST 22 U/L (13-35); African American GFR (CKD) 22.3 (60.0-200.0); Albumin 3.4 g/dL (3.8-4.9); Albumin/Globulin Ratio 1.21 (1.60-3.17); Alkaline Phosphatase 69 U/L (41-126); BUN/Creat Ratio 21.79 Ratio (12.00-20.00); Blood Urea Nitrogen 52.3 mg/dL (9.0-27.0); Calcium 9.5 mg/dL (8.7-10.3); Carbon Dioxide 22.9 mmol/L (20.0-27.5); Chloride 100 mmol/L (96-109); Globulin 2.8 g/dL (1.6-3.3); Glucose 206 mg/dL (70-110); Non-African American GFR(CKD) 19.2 (60.0-200.0); Potassium 5.4 mmol/L (3.5-5.5); Sodium 136 mmol/L (135-145); Total Bilirubin <0.15 mg/dL (0.30-1.20); Total Protein 6.2 g/dL (6.2-8.2)
--- NOTE | 2021-11-15 16:01 | P.PN ---
Subjective Patient is seen for follow-up for acute kidney injury and severe hyperkalemia associated with use of angiotensin receptor blockers, Bactrim and Aldactone. Serum potassium has improved Renal function is also improved. No significant complaints today. Overall much improved. Objective - Vital Signs Vital signs: Vital Signs Temp 98.2 F 11/15/21 14:00 Pulse 82 11/15/21 14:00 Resp 18 11/15/21 14:00 BP 147/79 11/15/21 14:00 Pulse Ox 97 11/15/21 14:00 Intake & Output 11/14/21 11/15/21 11/15/21 17:59 06:59 18:59 Other: Voiding Method Bedside Commode # Voids - Exam Patient is awake comfortable not in any acute distress. 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 exam 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 - Labs CBC & Chem 7: 11/15/21 07:13 11/15/21 07:13 Labs: Abnormal Lab Results - Last 24 Hours (Table) 11/14/21 11/14/21 11/15/21 Range/Units 16:54 20:50 01:36 WBC (4.50-10.00) X 10*3/uL MCHC (32.0-37.0) g/dL MPV (9.5-12.2) fL BUN (9.0-27.0) mg/dL Creatinine (0.6-1.5) mg/dL Est GFR (CKD-EPI)AfAm (60.0-200.0) Est GFR (CKD-EPI)NonAf (60.0-200.0) BUN/Creatinine Ratio (12.00-20.00) Ratio Glucose (70-110) mg/dL POC Glucose (mg/dL) 322 H 437 H 241 H (75-99) mg/dL Total Bilirubin (0.30-1.20) mg/dL Albumin (3.8-4.9) g/dL Albumin/Globulin Ratio (1.60-3.17) g/dL 11/15/21 11/15/21 11/15/21 Range/Units 07:13 07:13 07:13 WBC 10.83 H (4.50-10.00) X 10*3/uL MCHC 30.5 L (32.0-37.0) g/dL MPV 9.3 L (9.5-12.2) fL BUN 52.3 H (9.0-27.0) mg/dL Creatinine 2.4 H (0.6-1.5) mg/dL Est GFR (CKD-EPI)AfAm 22.3 L (60.0-200.0) Est GFR (CKD-EPI)NonAf 19.2 L (60.0-200.0) BUN/Creatinine Ratio 21.79 H (12.00-20.00) Ratio Glucose 206 H (70-110) mg/dL POC Glucose (mg/dL) 205 H (75-99) mg/dL Total Bilirubin <0.15 L (0.30-1.20) mg/dL Albumin 3.4 L (3.8-4.9) g/dL Albumin/Globulin Ratio 1.21 L (1.60-3.17) g/dL 11/15/21 Range/Units 11:58 WBC (4.50-10.00) X 10*3/uL MCHC (32.0-37.0) g/dL MPV (9.5-12.2) fL BUN (9.0-27.0) mg/dL Creatinine (0.6-1.5) mg/dL Est GFR (CKD-EPI)AfAm (60.0-200.0) Est GFR (CKD-EPI)NonAf (60.0-200.0) BUN/Creatinine Ratio (12.00-20.00) Ratio Glucose (70-110) mg/dL POC Glucose (mg/dL) 335 H (75-99) mg/dL Total Bilirubin (0.30-1.20) mg/dL Albumin (3.8-4.9) g/dL Albumin/Globulin Ratio (1.60-3.17) g/dL Assessment and Plan Assessment: 1. Acute kidney injury prerenal with ATN component currently improving. Nonoliguric. Maintained on IV fluids. No hydronephrosis on ultrasound. UA is quite bland 2. Hyperkalemia associated with acute kidney injury, metabolic acidosis and use of Bactrim recently in the setting of use of angiotensin receptor blockers status post lokelma. 3. Metabolic acidosis associated with acute kidney injury currently improved 4. Chronic kidney disease NKF stage IIIB secondary to nephrosclerosis, with previous creatinine at 1.4 on 05/20/2021 but 2.0 on 11/02/2021 5. Recent urinary tract infection status post treatment with Bactrim 6. Type 2 diabetes maintained on metformin as outpatient currently on hold Plan: Repeat lokelma if potassium is higher Continue with oral sodium bicarb Continue to avoid Cliff inhibitors/angiotensin receptor blockers Changed thiazide diuretics to loop diuretics to help with the potassium Treat constipation Repeat labs in a.m.
[2021-11-15 16:56] LABS: Glucose,Whole Blood 281 mg/dL (75-99)
[2021-11-15 20:16] LABS: Glucose,Whole Blood 404 mg/dL (75-99)
[2021-11-15] MEDS: INSULIN DETEMIR (LEVEMIR) 100 UNIT/ML SYR SQ SCH (21:58)
[2021-11-15] MEDS: ATORVASTATIN 10 MG TAB PO SCH (21:58)
[2021-11-16 04:29] LABS: Glucose,Whole Blood 190 mg/dL (75-99)
[2021-11-16 06:56] LABS: Glucose,Whole Blood 179 mg/dL (75-99)
[2021-11-16] MEDS: SENNOSIDES 8.6 MG TAB PO SCH (07:35)
[2021-11-16] MEDS: glipiZIDE 5 MG TAB PO SCH ×2 (07:36→16:50)
[2021-11-16] MEDS: bisacodyL 10 MG SUPP RECTAL SCH (07:36)
[2021-11-16] MEDS: MAGNESIUM OXIDE 400 MG TAB PO SCH (07:36)
[2021-11-16] MEDS: DOCUSATE 100 MG CAP PO SCH ×2 (07:36→20:56)
[2021-11-16] MEDS: SODIUM ZIRCONIUM CYCLOSILICATE 10 GM PACKET PO SCH ×2 (07:36→20:57)
[2021-11-16] MEDS: CYANOCOBALAMIN 500 MCG TAB PO SCH (07:37)
[2021-11-16] MEDS: SODIUM BICARBONATE TAB 650 MG TAB PO SCH ×2 (07:37→20:57)
[2021-11-16] MEDS: FERROUS SULFATE 325 MG TAB PO SCH (07:37)
[2021-11-16] MEDS: allopurinoL 100 MG TAB PO SCH (07:37)
[2021-11-16] MEDS: ASPIRIN 81 MG PO SCH (07:37)
[2021-11-16] MEDS: atenoloL 50 MG TAB PO SCH (07:38)
[2021-11-16] MEDS: FUROSEMIDE 40 MG TAB PO SCH (07:38)
[2021-11-16] MEDS: HEPARIN SODIUM,PORCINE/PF 5,000 UNIT/0.5 ML SYRINGE SQ SCH ×2 (07:38→20:56)
[2021-11-16] MEDS: INSULIN ASPART (NovoLOG) 100 UNIT/ML VIAL SQ SCH ×4 (07:39→20:56)
[2021-11-16] MEDS: polyethylene glycoL 3350 17 GM POWD.PACK PO SCH (09:00)
[2021-11-16 09:44] LABS: HCT 40.9 % (37.2-46.3); HGB 12.6 g/dL (12.0-15.0); MCH 29.9 pg (27.0-32.0); MCHC 30.8 g/dL (32.0-37.0); MCV 97.1 fL (80.0-97.0); Mean Platelet Volume 9.4 fL (9.5-12.2); NRBC Per 100 WBC 0 /100 WBCS (0.0-0.0); Platelet Count 319 X 10*3/uL (140-440); RBC 4.21 X 10*6/uL (4.10-5.20); RDW 12.8 % (11.5-14.5); WBC 10.42 X 10*3/uL (4.50-10.00)
[2021-11-16 09:47] LABS: ALT 37 U/L (8-44); AST 19 U/L (13-35); African American GFR (CKD) 22.3 (60.0-200.0); Albumin 3.6 g/dL (3.8-4.9); Albumin/Globulin Ratio 1.29 (1.60-3.17); Alkaline Phosphatase 69 U/L (41-126); BUN/Creat Ratio 24.38 Ratio (12.00-20.00); Blood Urea Nitrogen 58.5 mg/dL (9.0-27.0); Calcium 9.7 mg/dL (8.7-10.3); Carbon Dioxide 23.3 mmol/L (20.0-27.5); Chloride 100 mmol/L (96-109); Globulin 2.8 g/dL (1.6-3.3); Glucose 188 mg/dL (70-110); Non-African American GFR(CKD) 19.2 (60.0-200.0); Potassium 5.9 mmol/L (3.5-5.5); Sodium 136 mmol/L (135-145); Total Bilirubin <0.15 mg/dL (0.30-1.20); Total Protein 6.4 g/dL (6.2-8.2)
[2021-11-16 11:57] LABS: Glucose,Whole Blood 367 mg/dL (75-99)
--- NOTE | 2021-11-16 13:10 | P.PN ---
Subjective Patient is seen in follow-up for acute kidney injury on chronic kidney disease. Renal function stable. Potassium level 5.9 today. On Lasix. Has been voiding. No vomiting or diarrhea. Oral intake fair. Vital signs are stable. General: Awake and alert. HEENT: Head exam is unremarkable. LUNGS: Breath sounds decreased. HEART: Rate and Rhythm are regular. ABDOMEN: Soft, no distention. EXTREMITITES: 1+ edema. Objective - Vital Signs Vital signs: Vital Signs Temp 97.6 F 11/16/21 07:42 Pulse 89 11/16/21 07:49 Resp 17 11/16/21 07:49 BP 125/76 11/16/21 07:42 Pulse Ox 99 11/16/21 07:42 Intake & Output 11/15/21 11/16/21 11/16/21 18:59 06:59 18:59 Intake Total 540 600 Balance 540 600 Intake: Oral 540 600 Other: Voiding Method Bedside Commode Bedside Commode Bedside Commode # Voids 3 4 - Labs CBC & Chem 7: 11/16/21 05:57 11/16/21 05:57 Labs: Abnormal Lab Results - Last 24 Hours (Table) 11/15/21 11/15/21 11/16/21 Range/Units 16:55 20:14 04:27 WBC (4.50-10.00) X 10*3/uL MCV (80.0-97.0) fL MCHC (32.0-37.0) g/dL MPV (9.5-12.2) fL Potassium (3.5-5.5) mmol/L BUN (9.0-27.0) mg/dL Creatinine (0.6-1.5) mg/dL Est GFR (CKD-EPI)AfAm (60.0-200.0) Est GFR (CKD-EPI)NonAf (60.0-200.0) BUN/Creatinine Ratio (12.00-20.00) Ratio Glucose (70-110) mg/dL POC Glucose (mg/dL) 281 H 404 H 190 H (75-99) mg/dL Total Bilirubin (0.30-1.20) mg/dL Albumin (3.8-4.9) g/dL Albumin/Globulin Ratio (1.60-3.17) g/dL 11/16/21 11/16/21 11/16/21 Range/Units 05:57 05:57 06:55 WBC 10.42 H (4.50-10.00) X 10*3/uL MCV 97.1 H (80.0-97.0) fL MCHC 30.8 L (32.0-37.0) g/dL MPV 9.4 L (9.5-12.2) fL Potassium 5.9 H (3.5-5.5) mmol/L BUN 58.5 H (9.0-27.0) mg/dL Creatinine 2.4 H (0.6-1.5) mg/dL Est GFR (CKD-EPI)AfAm 22.3 L (60.0-200.0) Est GFR (CKD-EPI)NonAf 19.2 L (60.0-200.0) BUN/Creatinine Ratio 24.38 H (12.00-20.00) Ratio Glucose 188 H (70-110) mg/dL POC Glucose (mg/dL) 179 H (75-99) mg/dL Total Bilirubin <0.15 L (0.30-1.20) mg/dL Albumin 3.6 L (3.8-4.9) g/dL Albumin/Globulin Ratio 1.29 L (1.60-3.17) g/dL 11/16/21 Range/Units 11:55 WBC (4.50-10.00) X 10*3/uL MCV (80.0-97.0) fL MCHC (32.0-37.0) g/dL MPV (9.5-12.2) fL Potassium (3.5-5.5) mmol/L BUN (9.0-27.0) mg/dL Creatinine (0.6-1.5) mg/dL Est GFR (CKD-EPI)AfAm (60.0-200.0) Est GFR (CKD-EPI)NonAf (60.0-200.0) BUN/Creatinine Ratio (12.00-20.00) Ratio Glucose (70-110) mg/dL POC Glucose (mg/dL) 367 H (75-99) mg/dL Total Bilirubin (0.30-1.20) mg/dL Albumin (3.8-4.9) g/dL Albumin/Globulin Ratio (1.60-3.17) g/dL Assessment and Plan Plan: Assessment: 1. Acute kidney injury secondary to ATN. UA benign. No hydronephrosis noted on ultrasound. Creatinine 3.01 on admission and is stable at 2.4 today. 2. Chronic kidney disease stage IIIB with baseline creatinine near 1.4 in May 2021. Etiology is nephrosclerosis. 3. Hyperkalemia secondary to acute kidney injury, acidosis ARB, Bactrim and Aldactone. 4. Diabetes. 5. Metabolic acidosis secondary to acute kidney injury. No oral bicarb. Better. 6. Lower extremity edema. Plan: Increase lokelma to 10 g twice daily. Maintain bicarb. Maintain Lasix. Maintain low potassium diet. Repeat potassium level this evening. Tight blood sugar control. Avoid nephrotoxins. Continue to monitor renal function and urine output.
--- NOTE | 2021-11-16 14:23 | P.PN ---
Subjective Progress Note Date: 11/16/21 HISTORY OF PRESENT ILLNESS 76-year-old female one of Dr. 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 Patient apparently has not been feeling well for the last 2 weeks was diagnosed with UTI 2 weeks ago started on Bactrim DS which she finished yesterday. She had apparently blood tests of Dr. Lehman office a week ago shows a potassium to be 6.0 was post to have repeat test without having any adjusted medication at the time when she felt really sick today been tired fatigue not been able to a mbulate and walk addition to having to have diarrhea with mild nausea and slight bloated abdomen. She ended up coming to the emergency department for the above problem was seen and evaluated surprisingly her potassium was 8.0 and patient was in acute kidney failure at the time with acute kidney injury. Patient was started on hydration was giving some kayaxalate nephrology consultation, ultrasound of the kidney was negative for any major abnormality patient be admitted to the hospital for the above problem. 11/11: Patient is doing much better today, potassium is down to 6.1, GFR is improved some with a creatinine is down to 2.6 compared to yesterday. Clinically has significant improvement with no major pain and discomfort with tiredness and fatigue is much better. Patient will be transfer out of the ICU today we'll continue to monitor potassium tablets at least below 5. Patient will be kept on hydration titrate diet at this point keep watching her blood sugar. 11/12: Patient is doing much better today she's having slight stomach discomfort was transferred out of ICU yesterday to medical floor bed. The kidney function has improved still on close to baseline potassium is down to 5.0. Patient is still on hydration titrate diet titrate physical therapy and hopefully if her numbers are better tomorrow be able to send her home. 11/13: Patient is doing much better today her potassium climb up to 5.4 but still stable kidney function is no different than before, blood sugar was noted bit elevated today. Evaluated by physiatry will require physical therapy. Whether patient will be able to move to inpatient rehab or go home with home care and physical therapy would be left up to her and her family. 11/14: Patient did not make it to rehab yesterday. Her potassium today is up to 5.8, apparently the hospital does scary leukoma in stock we will give patient 10 mg 1 time today then 5 mg every day for 7 days repeat CMP tomorrow the meanwhile kidney function has improved some patient mental status is much better mobility still significantly decrease this to require physical therapy. 11/15: Patient will be going to [facility] rehab tomorrow apparently the rehab center at [place] did not accept her. Her potassium is pending this morning we started leukoma yesterday patient is not having any side effects so far. Patient is complaining of dryness and slight nosebleed mostly from the left side will use Mk-Synephrine nasal spray 3 times a day today and an as-needed basis afterward plus patient to change the humidity in her house and probably to using him to fight oxygen if she ever need to go back on nasal cannula. Physical therapy and mobility improved some. 11/16 and patient examined bedside. She did have a bowel movement today. Denies any diarrhea or nausea or vomiting. Denies any episode of nose bleeding today. She does state that she was nauseous early in the morning but has improved without the need of medication. Labs were reviewed with the patient sodium 136 potassium 5.9 and creatinine is stable at 2.4 glucose stays between 179 to 367 . Lokelma increased to 10 mg twice daily. Lantus increased to 45 units daily at bedtime continue bicarb drip continue Lasix 40 mg by mouth daily possible inpatient rehab tomorrow REVIEW OF SYSTEMS Constitutional: No fever, no chills, no night sweats. No weight change. Positive for weakness fatigue tiredness and sleepiness. EENT: No headache. No blurred vision or double vision, no loss of vision. No loss of Hearing, no ringing in the ears, no dizziness. No nasal drainage or congestion. No epistaxis. No sore throat. Lungs: No shortness of breath, cough, no sputum production. No wheezing. Cardiovascular: Mild congestion but No chest pain, no lower extremity edema. No palpitations. No paroxysmal nocturnal dyspnea. No orthopnea. No lightheadedness or dizziness. No syncopal episodes. Abdominal: No abdominal pain. No nausea, vomiting. No diarrhea. No consti pation. No bloody or tarry stools.. No loss of appetite. Genitourinary: Denies dysuria or increased frequency of urine Musculoskeletal: Positive generalized myalgia with muscle weakness with abnormal balance gait no fall lately. Integumentary: No wounds, no lesions. No rash or pruritus. No unusual bruising. No change in hair or nails. Neurologic: No aphasia. No facial droop. No change in mentation. No head injury. No headache. No paralysis. No paresthesia. She has more like essential tremor. Psychiatric: No depression. No anxiety. No mood swings. Endocrine: No abnormal blood sugars. No weight change. No excessive sweating or thirst. No cold intolerance. PHYSICAL EXAMINATION Gen: This is mildly overweight look older than her age laying in bed does not look in any respiratory distress. HEENT: Head is atraumatic, normocephalic. Pupils equal, round. Sclerae is anicteric. NECK: Supple. No JVD. No lymphadenopathy. No thyromegaly. LUNGS: Clear to auscultation. No wheezes or rhonchi. No intercostal retractions. HEART: Regular rate and rhythm. No murmur. Mild arrhythmia with skipped beats. ABDOMEN: Soft. Bowel sounds are present. No masses. Slight discomfort lower abdominal area. EXTREMITIES: 2+ edema with slight discoloration more like chronic lymphedema and dermatitis. NEUROLOGICAL: Patient is awake, alert and oriented x3. Cranial nerves 2 through 12 are 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. She has essential tremor with worsening in her head and neck area and upper extremity. ASSESSMENT AND PLAN 1. Acute kidney injury most likely acute tubular necrosis: Much better so far continue to improve. Creatinine stable at 2.4 2 severe hyperkalemia: Potassium is up again to 5.8 lokelma 10 mg twice daily repeat CMP tomorrow. 3 type 2 diabetes: Decrease glipizide to 5 mg twice a day off metformin completely Lantus increased to 45 units at bedtime. Patient may need to be initiated on lispro 3 times a day 4 chronic edema and lymphedema: On Lasix 40 mg by mouth daily 5 hypertension: Patient is off Benicar and spironolactone on atenolol 50 mg daily. 6 chronic history of gout: Has been on allopurinol continue medication. 7 hyperlipidemia: Still on simvastatin 20 mg a day. 8 recent urinary tract infection: Patient was on Bactrim DS which probably cause more acute kidney injury with hyperkalemia at this point. 9 chronic iron deficiency anemia: Continue iron supplement watch her hemoglobin. 10 chronic history of kidney stone: Patient was on potassium citrate which will be held for now. Discharge planning: Patient be transferred to inpatient rehab [facility] tomorrow. Objective - Vital Signs Vital signs: Vital Signs Temp 97.6 F 11/16/21 07:42 Pulse 89 11/16/21 07:49 Resp 17 11/16/21 07:49 BP 125/76 11/16/21 07:42 Pulse Ox 99 11/16/21 07:42 Intake & Output 11/15/21 11/16/21 11/16/21 18:59 06:59 18:59 Intake Total 540 600 Balance 540 600 Intake: Oral 540 600 Other: Voiding Method Bedside Commode Bedside Commode Bedside Commode # Voids 3 4 - Labs CBC & Chem 7: 11/16/21 05:57 11/16/21 05:57 Labs: Abnormal Lab Results - Last 24 Hours (Table) 11/15/21 11/15/21 11/16/21 Range/Units 16:55 20:14 04:27 WBC (4.50-10.00) X 10*3/uL MCV (80.0-97.0) fL MCHC (32.0-37.0) g/dL MPV (9.5-12.2) fL Potassium (3.5-5.5) mmol/L BUN (9.0-27.0) mg/dL Creatinine (0.6-1.5) mg/dL Est GFR (CKD-EPI)AfAm (60.0-200.0) Est GFR (CKD-EPI)NonAf (60.0-200.0) BUN/Creatinine Ratio (12.00-20.00) Ratio Glucose (70-110) mg/dL POC Glucose (mg/dL) 281 H 404 H 190 H (75-99) mg/dL Total Bilirubin (0.30-1.20) mg/dL Albumin (3.8-4.9) g/dL Albumin/Globulin Ratio (1.60-3.17) g/dL 11/16/21 11/16/21 11/16/21 Range/Units 05:57 05:57 06:55 WBC 10.42 H (4.50-10.00) X 10*3/uL MCV 97.1 H (80.0-97.0) fL MCHC 30.8 L (32.0-37.0) g/dL MPV 9.4 L (9.5-12.2) fL Potassium 5.9 H (3.5-5.5) mmol/L BUN 58.5 H (9.0-27.0) mg/dL Creatinine 2.4 H (0.6-1.5) mg/dL Est GFR (CKD-EPI)AfAm 22.3 L (60.0-200.0) Est GFR (CKD-EPI)NonAf 19.2 L (60.0-200.0) BUN/Creatinine Ratio 24.38 H (12.00-20.00) Ratio Glucose 188 H (70-110) mg/dL POC Glucose (mg/dL) 179 H (75-99) mg/dL Total Bilirubin <0.15 L (0.30-1.20) mg/dL Albumin 3.6 L (3.8-4.9) g/dL Albumin/Globulin Ratio 1.29 L (1.60-3.17) g/dL 11/16/21 Range/Units 11:55 WBC (4.50-10.00) X 10*3/uL MCV (80.0-97.0) fL MCHC (32.0-37.0) g/dL MPV (9.5-12.2) fL Potassium (3.5-5.5) mmol/L BUN (9.0-27.0) mg/dL Creatinine (0.6-1.5) mg/dL Est GFR (CKD-EPI)AfAm (60.0-200.0) Est GFR (CKD-EPI)NonAf (60.0-200.0) BUN/Creatinine Ratio (12.00-20.00) Ratio Glucose (70-110) mg/dL POC Glucose (mg/dL) 367 H (75-99) mg/dL Total Bilirubin (0.30-1.20) mg/dL Albumin (3.8-4.9) g/dL Albumin/Globulin Ratio (1.60-3.17) g/dL
[2021-11-16 16:36] LABS: Glucose,Whole Blood 349 mg/dL (75-99)
[2021-11-16 20:46] LABS: Glucose,Whole Blood 383 mg/dL (75-99)
[2021-11-16] MEDS: INSULIN DETEMIR (LEVEMIR) 100 UNIT/ML SYR SQ SCH (20:56)
[2021-11-16] MEDS: ATORVASTATIN 10 MG TAB PO SCH (20:57)
[2021-11-17 07:16] LABS: Glucose,Whole Blood 219 mg/dL (75-99)
[2021-11-17] MEDS: ASPIRIN 81 MG PO SCH (08:21)
[2021-11-17] MEDS: MAGNESIUM OXIDE 400 MG TAB PO SCH (08:21)
[2021-11-17] MEDS: allopurinoL 100 MG TAB PO SCH (08:21)
[2021-11-17] MEDS: glipiZIDE 5 MG TAB PO SCH ×2 (08:21→16:36)
[2021-11-17] MEDS: SODIUM BICARBONATE TAB 650 MG TAB PO SCH ×2 (08:21→20:59)
[2021-11-17] MEDS: HEPARIN SODIUM,PORCINE/PF 5,000 UNIT/0.5 ML SYRINGE SQ SCH ×2 (08:22→20:59)
[2021-11-17] MEDS: FERROUS SULFATE 325 MG TAB PO SCH (08:22)
[2021-11-17] MEDS: SENNOSIDES 8.6 MG TAB PO SCH (08:22)
[2021-11-17] MEDS: atenoloL 50 MG TAB PO SCH (08:23)
[2021-11-17] MEDS: polyethylene glycoL 3350 17 GM POWD.PACK PO SCH (08:23)
[2021-11-17] MEDS: DOCUSATE 100 MG CAP PO SCH ×2 (08:23→20:59)
[2021-11-17] MEDS: SODIUM ZIRCONIUM CYCLOSILICATE 10 GM PACKET PO SCH ×2 (08:23→21:00)
[2021-11-17] MEDS: FUROSEMIDE 40 MG TAB PO SCH (08:23)
[2021-11-17] MEDS: CYANOCOBALAMIN 500 MCG TAB PO SCH (08:25)
[2021-11-17] MEDS: INSULIN ASPART (NovoLOG) 100 UNIT/ML VIAL SQ SCH ×7 (08:27→20:59)
[2021-11-17] MEDS: bisacodyL 10 MG SUPP RECTAL SCH (08:27)
[2021-11-17 09:10] LABS: African American GFR (CKD) 23.4 (60.0-200.0); Anion Gap 14.7 mmol/L (10.00-18.00); BUN/Creat Ratio 26.62 Ratio (12.00-20.00); Blood Urea Nitrogen 61.5 mg/dL (9.0-27.0); Calcium 9.3 mg/dL (8.7-10.3); Magnesium 2.1 mg/dL (1.5-2.4); Non-African American GFR(CKD) 20.2 (60.0-200.0)
--- NOTE | 2021-11-17 10:56 | P.PN ---
Subjective Patient is seen in follow-up for acute kidney injury on chronic kidney disease. Renal function stable. Potassium level 5.0 today. On Lasix. Has been voiding. No vomiting or diarrhea. Oral intake fair. No active complaints. Vital signs are stable. General: Awake and alert. HEENT: Head exam is unremarkable. LUNGS: Breath sounds decreased. HEART: Rate and Rhythm are regular. ABDOMEN: Soft, no distention. EXTREMITITES: Trace edema. Objective - Vital Signs Vital signs: Vital Signs Temp 97.4 F L 11/17/21 08:00 Pulse 75 11/17/21 08:00 Resp 18 11/17/21 08:00 BP 124/75 11/17/21 08:00 Pulse Ox 96 11/17/21 08:00 Intake & Output 11/16/21 11/17/21 11/17/21 18:59 06:59 18:59 Weight 100.3 kg Other: Voiding Method Bedside Commode Bedside Commode Bedside Commode # Voids 5 3 - Labs CBC & Chem 7: 11/16/21 05:57 11/17/21 05:32 Labs: Abnormal Lab Results - Last 24 Hours (Table) 11/16/21 11/16/21 11/16/21 Range/Units 11:55 16:34 18:22 Potassium 5.5 H (3.5-5.1) mmol/L BUN (9.0-27.0) mg/dL Creatinine (0.6-1.5) mg/dL Est GFR (CKD-EPI)AfAm (60.0-200.0) Est GFR (CKD-EPI)NonAf (60.0-200.0) BUN/Creatinine Ratio (12.00-20.00) Ratio Glucose (70-110) mg/dL POC Glucose (mg/dL) 367 H 349 H (75-99) mg/dL 11/16/21 11/17/21 11/17/21 Range/Units 20:33 05:32 07:14 Potassium (3.5-5.1) mmol/L BUN 61.5 H (9.0-27.0) mg/dL Creatinine 2.3 H (0.6-1.5) mg/dL Est GFR (CKD-EPI)AfAm 23.4 L (60.0-200.0) Est GFR (CKD-EPI)NonAf 20.2 L (60.0-200.0) BUN/Creatinine Ratio 26.62 H (12.00-20.00) Ratio Glucose 224 H (70-110) mg/dL POC Glucose (mg/dL) 383 H 219 H (75-99) mg/dL Assessment and Plan Plan: Assessment: 1. Acute kidney injury secondary to ATN. UA benign. No hydronephrosis noted on ultrasound. Creatinine 3.01 on admission and is stable at 2.3 today. 2. Chronic kidney disease stage IIIB with baseline creatinine near 1.4 in May 2021. Etiology is nephrosclerosis. 3. Hyperkalemia secondary to acute kidney injury, acidosis ARB, Bactrim and Aldactone. Improved. 4. Diabetes. 5. Metabolic acidosis secondary to acute kidney injury. On oral bicarb. Better. 6. Lower extremity edema. Improving with diuresis. Plan: Maintain lokelma. Maintain bicarb. Maintain Lasix. Maintain low potassium diet. Tight blood sugar control. Avoid nephrotoxins. Continue to monitor renal function and urine output.
[2021-11-17 11:20] LABS: Glucose,Whole Blood 342 mg/dL (75-99)
--- NOTE | 2021-11-17 12:58 | P.PN ---
Subjective Progress Note Date: 11/17/21 HISTORY OF PRESENT ILLNESS 76-year-old female one of Dr. Lehman patient is known to have history of type 2 diabetes, chronic kidney disease, history of rheumatoid arthritis, hi story of CAD, history of hypertension and hyperlipidemia who seen claim approver in [facility] and stop seen her director global market research last few month who is also known to have chronic history of anasarca and edema has been on chronic diuretics use with spironolactone 100 mg a day and Lasix 20 mg daily. Patient apparently has not been feeling well for the last 2 weeks was diagnosed with UTI 2 weeks ago started on Bactrim DS which she finished yesterday. She had apparently blood tests of Dr. Lehman office a week ago shows a potassium to be 6.0 was post to have repeat test without having any adjusted medication at the time when she felt really sick today been tired fatigue not been able to a mbulate and walk addition to having to have diarrhea with mild nausea and slight bloated abdomen. She ended up coming to the emergency department for the above problem was seen and evaluated surprisingly her potassium was 8.0 and patient was in acute kidney failure at the time with acute kidney injury. Patient was started on hydration was giving some kayaxalate nephrology consultation, ultrasound of the kidney was negative for any major abnormality patient be admitted to the hospital for the above problem. 11/11: Patient is doing much better today, potassium is down to 6.1, GFR is improved some with a creatinine is down to 2.6 compared to yesterday. Clinically has significant improvement with no major pain and discomfort with tiredness and fatigue is much better. Patient will be transfer out of the ICU today we'll continue to monitor potassium tablets at least below 5. Patient will be kept on hydration titrate diet at this point keep watching her blood sugar. 11/12: Patient is doing much better today she's having slight stomach discomfort was transferred out of ICU yesterday to medical floor bed. The kidney function has improved still on close to baseline potassium is down to 5.0. Patient is still on hydration titrate diet titrate physical therapy and hopefully if her numbers are better tomorrow be able to send her home. 11/13: Patient is doing much better today her potassium climb up to 5.4 but still stable kidney function is no different than before, blood sugar was noted bit elevated today. Evaluated by physiatry will require physical therapy. Whether patient will be able to move to inpatient rehab or go home with home care and physical therapy would be left up to her and her family. 11/14: Patient did not make it to rehab yesterday. Her potassium today is up to 5.8, apparently the hospital does scary leukoma in stock we will give patient 10 mg 1 time today then 5 mg every day for 7 days repeat CMP tomorrow the meanwhile kidney function has improved some patient mental status is much better mobility still significantly decrease this to require physical therapy. 11/15: Patient will be going to [facility] rehab tomorrow apparently the rehab center at [place] did not accept her. Her potassium is pending this morning we started leukoma yesterday patient is not having any side effects so far. Patient is complaining of dryness and slight nosebleed mostly from the left side will use Mk-Synephrine nasal spray 3 times a day today and an as-needed basis afterward plus patient to change the humidity in her house and probably to using him to fight oxygen if she ever need to go back on nasal cannula. Physical therapy and mobility improved some. 11/16 and patient examined bedside. She did have a bowel movement today. Denies any diarrhea or nausea or vomiting. Denies any episode of nose bleeding today. She does state that she was nauseous early in the morning but has improved without the need of medication. Labs were reviewed with the patient sodium 136 potassium 5.9 and creatinine is stable at 2.4 glucose stays between 179 to 367 . Lokelma increased to 10 mg twice daily. Lantus increased to 45 units daily at bedtime continue bicarb drip continue Lasix 40 mg by mouth daily possible inpatient rehab tomorrow. 11/17: Patient's insurance has denied inpatient rehab but suggested subacute rehab. Family is now appealing the decision with the insurance company for inpatient rehab. Patient remains afebrile, heart rate 75, blood pressure 124/75 and pulse ox 96% on room air. Repeat blood work reveals electrolytes are normal, BUN 61 and creatinine 2.3. Blood sugars remain elevated despite increase of Levemir to 45 units yesterday. We'll also add in Humalog 5 units with meals with scale. REVIEW OF SYSTEMS Constitutional: No fever, no chills, no night sweats. No weight change. Positive for weakness fatigue tiredness and sleepiness. EENT: No headache. No blurred vision or double vision, no loss of vision. No loss of Hearing, no ringing in the ears, no dizziness. No nasal drainage or congestion. No epistaxis. No sore throat. Lungs: No shortness of breath, cough, no sputum production. No wheezing. Cardiovascular: Mild congestion but No chest pain, no lower extremity edema. No palpitations. No paroxysmal nocturnal dyspnea. No orthopnea. No lightheadedness or dizziness. No syncopal episodes. Abdominal: No abdominal pain. No nausea, vomiting. No diarrhea. No constipation. No bloody or tarry stools.. No loss of appetite. Genitourinary: Denies dysuria or increased frequency of urine Musculoskeletal: Positive generalized myalgia with muscle weakness with abnormal balance gait no fall lately. Integumentary: No wounds, no lesions. No rash or pruritus. No unusual bruising. No change in hair or nails. Neurologic: No aphasia. No facial droop. No change in mentation. No head injury. No headache. No paralysis. No paresthesia. She has more like essential tremor. Psychiatric: No depression. No anxiety. Endocrine: No abnormal blood sugars. No weight change. PHYSICAL EXAMINATION Gen: This is a 76-year-old female, mildly overweight look older than her age stated her recliner does not look in any respiratory distress. HEENT: Head is atraumatic, normocephalic. Pupils equal, round. Sclerae is anicteric. NECK: Supple. No JVD. No lymphadenopathy. No thyromegaly. LUNGS: Clear to auscultation. No wheezes or rhonchi. No intercostal retractions. HEART: Regular rate and rhythm. No murmur. Mild arrhythmia with skipped beats. ABDOMEN: Soft. Bowel sounds are present. No masses. Slight discomfort lower abdominal area. EXTREMITIES: 2+ edema with slight discoloration more like chronic lymphedema and dermatitis. NEUROLOGICAL: Patient is awake, alert and oriented x3. Cranial nerves 2 through 12 are 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. She has essential tremor with worsening in her head and neck area and upper extremity. ASSESSMENT AND PLAN 1. Acute kidney injury most likely acute tubular necrosis: Much better so far continue to improve. Creatinine stable at 2.4 2 severe hyperkalemia. 3 type 2 diabetes uncontrolled with hyperglycemia. Continue glipizide 5 mg twice a day, off metformin completely, Lantus increased to 45 units at bedtime, add NovoLog 5 units with meals and at bedtime and NovoLog scale 4 chronic edema and lymphedema: On Lasix 40 mg by mouth daily 5 hypertension: Patient is off Benicar and spironolactone. Continue patient on atenolol 50 mg daily. 6 chronic history of gout: Has been on allopurinol continue medication. 7 hyperlipidemia: Still on simvastatin 20 mg a day. 8 recent urinary tract infection: Patient was on Bactrim DS which probably cause more acute kidney injury with hyperkalemia at this point. Bactrim discontinued. 9 chronic iron deficiency anemia: Continue iron supplement watch her hemoglobin. 10 chronic history of kidney stone: Patient was on potassium citrate which will be held for now. Discharge planning: Patient be transferred to inpatient rehab [facility] tomorrow. Awaiting insurance appeal initiated by the family. Impression and plan of care have been directed as dictated by the signing physician. Jennyfer Tellez nurse practitioner acting as scribe for signing physician. Objective - Vital Signs Vital signs: Vital Signs Temp 97.4 F L 11/17/21 08:00 Pulse 75 11/17/21 08:00 Resp 18 11/17/21 08:00 BP 124/75 11/17/21 08:00 Pulse Ox 96 11/17/21 08:00 Intake & Output 11/16/21 11/17/21 11/17/21 18:59 06:59 18:59 Weight 100.3 kg Other: Voiding Method Bedside Commode Bedside Commode Bedside Commode # Voids 5 3 - Labs CBC & Chem 7: 11/16/21 05:57 11/17/21 05:32 Labs: Abnormal Lab Results - Last 24 Hours (Table) 11/16/21 11/16/21 11/16/21 Range/Units 11:55 16:34 18:22 Potassium 5.5 H (3.5-5.1) mmol/L BUN (9.0-27.0) mg/dL Creatinine (0.6-1.5) mg/dL Est GFR (CKD-EPI)AfAm (60.0-200.0) Est GFR (CKD-EPI)NonAf (60.0-200.0) BUN/Creatinine Ratio (12.00-.00) Ratio Glucose (70-110) mg/dL POC Glucose (mg/dL) 367 H 349 H (75-99) mg/dL 11/16/21 11/17/21 11/17/21 Range/Units 20:33 05:32 07:14 Potassium (3.5-5.1) mmol/L BUN 61.5 H (9.0-27.0) mg/dL Creatinine 2.3 H (0.6-1.5) mg/dL Est GFR (CKD-EPI)AfAm 23.4 L (60.0-200.0) Est GFR (CKD-EPI)NonAf 20.2 L (60.0-200.0) BUN/Creatinine Ratio 26.62 H (12.00-20.00) Ratio Glucose 224 H (70-110) mg/dL POC Glucose (mg/dL) 383 H 219 H (75-99) mg/dL 11/17/21 Range/Units 11:19 Potassium (3.5-5.1) mmol/L BUN (9.0-27.0) mg/dL Creatinine (0.6-1.5) mg/dL Est GFR (CKD-EPI)AfAm (60.0-200.0) Est GFR (CKD-EPI)NonAf (60.0-200.0) BUN/Creatinine Ratio (12.00-20.00) Ratio Glucose (70-110) mg/dL POC Glucose (mg/dL) 342 H (75-99) mg/dL
[2021-11-17 16:28] LABS: Glucose,Whole Blood 405 mg/dL (75-99)
[2021-11-17 20:57] LABS: Glucose,Whole Blood 354 mg/dL (75-99)
[2021-11-17] MEDS: ATORVASTATIN 10 MG TAB PO SCH (20:59)
[2021-11-17] MEDS: INSULIN DETEMIR (LEVEMIR) 100 UNIT/ML SYR SQ SCH (21:00)
[2021-11-17] MEDS: LACTATED RINGERS 1,000 ML IV SCH (21:50)
[2021-11-18 01:32] LABS: Glucose,Whole Blood 222 mg/dL (75-99)
[2021-11-18 07:04] LABS: Glucose,Whole Blood 169 mg/dL (75-99)
[2021-11-18] MEDS: SODIUM BICARBONATE TAB 650 MG TAB PO SCH ×2 (07:45→21:01)
[2021-11-18] MEDS: DOCUSATE 100 MG CAP PO SCH ×2 (07:45→21:01)
[2021-11-18] MEDS: SENNOSIDES 8.6 MG TAB PO SCH (07:45)
[2021-11-18] MEDS: FUROSEMIDE 40 MG TAB PO SCH (07:45)
[2021-11-18] MEDS: ASPIRIN 81 MG PO SCH (07:46)
[2021-11-18] MEDS: HEPARIN SODIUM,PORCINE/PF 5,000 UNIT/0.5 ML SYRINGE SQ SCH ×2 (07:46→21:00)
[2021-11-18] MEDS: allopurinoL 100 MG TAB PO SCH (07:46)
[2021-11-18] MEDS: MAGNESIUM OXIDE 400 MG TAB PO SCH (07:46)
[2021-11-18] MEDS: polyethylene glycoL 3350 17 GM POWD.PACK PO SCH (07:46)
[2021-11-18] MEDS: glipiZIDE 5 MG TAB PO SCH ×2 (07:46→17:21)
[2021-11-18] MEDS: atenoloL 50 MG TAB PO SCH (07:46)
[2021-11-18] MEDS: FERROUS SULFATE 325 MG TAB PO SCH (07:46)
[2021-11-18] MEDS: INSULIN ASPART (NovoLOG) 100 UNIT/ML VIAL SQ SCH ×8 (07:47→21:00)
[2021-11-18] MEDS: bisacodyL 10 MG SUPP RECTAL SCH (07:47)
[2021-11-18] MEDS: CYANOCOBALAMIN 500 MCG TAB PO SCH (07:49)
[2021-11-18] MEDS: SODIUM ZIRCONIUM CYCLOSILICATE 10 GM PACKET PO SCH ×2 (09:32→21:01)
--- NOTE | 2021-11-18 09:54 | P.PN ---
Subjective Patient is seen in follow-up for acute kidney injury on chronic kidney disease. Morning labs pending. On Lasix. Has been voiding. No vomiting or diarrhea. Oral intake fair. No active complaints. Hemodynamically stable. On room air. Vital signs are stable. General: Awake and alert. HEENT: Head exam is unremarkable. LUNGS: Breath sounds decreased. HEART: Rate and Rhythm are regular. ABDOMEN: Soft, no distention. EXTREMITITES: Trace edema. Objective - Vital Signs Vital signs: Vital Signs Temp 97.6 F 11/18/21 07:35 Pulse 73 11/18/21 08:00 Resp 18 11/18/21 08:00 BP 144/78 11/18/21 07:35 Pulse Ox 92 L 11/18/21 07:35 Intake & Output 11/17/21 11/18/21 11/18/21 18:59 06:59 18:59 Intake Total 1080 400 Balance 1080 400 Intake: Oral 1080 400 Other: Voiding Method Bedside Commode Bedside Commode # Voids 4 2 # Bowel Movements 1 - Labs CBC & Chem 7: 11/16/21 05:57 11/17/21 05:32 Labs: Abnormal Lab Results - Last 24 Hours (Table) 11/17/21 11/17/21 11/17/21 Range/Units 11:19 16:27 20:56 POC Glucose (mg/dL) 342 H 405 H 354 H (75-99) mg/dL 11/18/21 11/18/21 Range/Units 01:30 07:00 POC Glucose (mg/dL) 222 H 169 H (75-99) mg/dL Assessment and Plan Plan: Assessment: 1. Acute kidney injury secondary to ATN. UA benign. No hydronephrosis noted on ultrasound. Creatinine 3.01 on admission and is stable at 2.3 yesterday. 2. Chronic kidney disease stage IIIB with baseline creatinine near 1.4 in May 2021. Etiology is nephrosclerosis. 3. Hyperkalemia secondary to acute kidney injury, acidosis ARB, Bactrim and Aldactone. Improved. 4. Diabetes. 5. Metabolic acidosis secondary to acute kidney injury. On oral bicarb. Better. 6. Lower extremity edema. Improving with diuresis. Plan: Maintain lokelma. Maintain bicarb. Maintain Lasix. Maintain low potassium diet. Tight blood sugar control. Avoid nephrotoxins. Continue to monitor renal function and urine output. Follow-up morning labs. Patient will need a repeat BMP and magnesium level 2-3 days postdischarge. Follow up outpatient in 1 week.
[2021-11-18 10:41] LABS: African American GFR (CKD) 23.5 (60.0-200.0); Anion Gap 13.7 mmol/L (10.00-18.00); BUN/Creat Ratio 28.26 Ratio (12.00-20.00); Calcium 9.5 mg/dL (8.7-10.3); Carbon Dioxide 25.3 mmol/L (20.0-27.5); Magnesium 2.3 mg/dL (1.5-2.4); Non-African American GFR(CKD) 20.3 (60.0-200.0); Potassium 4.2 mmol/L (3.5-5.5)
[2021-11-18 11:28] LABS: Glucose,Whole Blood 301 mg/dL (75-99)
--- NOTE | 2021-11-18 12:33 | P.PN ---
Subjective Progress Note Date: 11/18/21 HISTORY OF PRESENT ILLNESS 76-year-old female one of Dr. Lehman patient is known to have history of type 2 diabetes, chronic kidney disease, history of rheumatoid arthritis, hi story of CAD, history of hypertension and hyperlipidemia who seen window and door installer in [facility] and stop seen her fuel pilot engineer last few month who is also known to have chronic history of anasarca and edema has been on chronic diuretics use with spironolactone 100 mg a day and Lasix 20 mg daily. Patient apparently has not been feeling well for the last 2 weeks was diagnosed with UTI 2 weeks ago started on Bactrim DS which she finished yesterday. She had apparently blood tests of Dr. Lehman office a week ago shows a potassium to be 6.0 was post to have repeat test without having any adjusted medication at the time when she felt really sick today been tired fatigue not been able to a mbulate and walk addition to having to have diarrhea with mild nausea and slight bloated abdomen. She ended up coming to the emergency department for the above problem was seen and evaluated surprisingly her potassium was 8.0 and patient was in acute kidney failure at the time with acute kidney injury. Patient was started on hydration was giving some kayaxalate nephrology consultation, ultrasound of the kidney was negative for any major abnormality patient be admitted to the hospital for the above problem. 11/11: Patient is doing much better today, potassium is down to 6.1, GFR is improved some with a creatinine is down to 2.6 compared to yesterday. Clinically has significant improvement with no major pain and discomfort with tiredness and fatigue is much better. Patient will be transfer out of the ICU today we'll continue to monitor potassium tablets at least below 5. Patient will be kept on hydration titrate diet at this point keep watching her blood sugar. 11/12: Patient is doing much better today she's having slight stomach discomfort was transferred out of ICU yesterday to medical floor bed. The kidney function has improved still on close to baseline potassium is down to 5.0. Patient is still on hydration titrate diet titrate physical therapy and hopefully if her numbers are better tomorrow be able to send her home. 11/13: Patient is doing much better today her potassium climb up to 5.4 but still stable kidney function is no different than before, blood sugar was noted bit elevated today. Evaluated by physiatry will require physical therapy. Whether patient will be able to move to inpatient rehab or go home with home care and physical therapy would be left up to her and her family. 11/14: Patient did not make it to rehab yesterday. Her potassium today is up to 5.8, apparently the hospital does scary leukoma in stock we will give patient 10 mg 1 time today then 5 mg every day for 7 days repeat CMP tomorrow the meanwhile kidney function has improved some patient mental status is much better mobility still significantly decrease this to require physical therapy. 11/15: Patient will be going to [facility] rehab tomorrow apparently the rehab center at [place] did not accept her. Her potassium is pending this morning we started leukoma yesterday patient is not having any side effects so far. Patient is complaining of dryness and slight nosebleed mostly from the left side will use Mk-Synephrine nasal spray 3 times a day today and an as-needed basis afterward plus patient to change the humidity in her house and probably to using him to fight oxygen if she ever need to go back on nasal cannula. Physical therapy and mobility improved some. 11/16 and patient examined bedside. She did have a bowel movement today. Denies any diarrhea or nausea or vomiting. Denies any episode of nose bleeding today. She does state that she was nauseous early in the morning but has improved without the need of medication. Labs were reviewed with the patient sodium 136 potassium 5.9 and creatinine is stable at 2.4 glucose stays between 179 to 367 . Lokelma increased to 10 mg twice daily. Lantus increased to 45 units daily at bedtime continue bicarb drip continue Lasix 40 mg by mouth daily possible inpatient rehab tomorrow. 11/17: Patient's insurance has denied inpatient rehab but suggested subacute rehab. Family is now appealing the decision with the insurance company for inpatient rehab. Patient remains afebrile, heart rate 75, blood pressure 124/75 and pulse ox 96% on room air. Repeat blood work reveals electrolytes are normal, BUN 61 and creatinine 2.3. Blood sugars remain elevated despite increase of Levemir to 45 units yesterday. We'll also add in Humalog 5 units with meals with scale. 11/18: Patient's blood sugars are improving this morning of 169 at 1 AM 222. Patient has been afebrile, heart rate in the 70s, blood pressure 144/78, pulse ox 92% on room air. Patient is followed by nephrology with plan to maintain leukoma, bicarbonate Lasix, low potassium diet, avoid nephrotoxins. Patient will need repeat BMP and magnesium level 2-3 days after discharge. Patient in follow-up with nephrology in 1 week. Family made an appeal to her insurance company regarding inpatient rehab and this is still in a pending status. Kenyetta schaefer denies any new concerns. She states that she would like to wait for the appeal process and if that does not work she'll either choose a placed local or go to [place] where her daughter is living. Potassium today is 4.2 and Lokelma on hold today. REVIEW OF SYSTEMS Constitutional: No fever, no chills, no night sweats. No weight change. Positive for weakness fatigue tiredness and denies sleepiness. EENT: No headache. No blurred vision or double vision, no loss of vision. No loss of Hearing, no ringing in the ears, no dizziness. No nasal drainage or congestion. No epistaxis. No sore throat. Lungs: No shortness of breath, cough, no sputum production. No wheezing. Cardiovascular: Mild congestion but No chest pain, no lower extremity edema. No palpitations. No paroxysmal nocturnal dyspnea. No orthopnea. No lightheadedness or dizziness. No syncopal episodes. Abdominal: No abdominal pain. No nausea, vomiting. No diarrhea. No constipation. No bloody or tarry stools.. No loss of appetite. Genitourinary: Denies dysuria or increased frequency of urine Musculoskeletal: Positive generalized myalgia with muscle weakness with abnormal balance gait no fall lately. Integumentary: No wounds, no lesions. No rash or pruritus. No unusual bruising . No change in hair or nails. Neurologic: No aphasia. No facial droop. No change in mentation. No head injury. No headache. No paralysis. No paresthesia. She has more like essential tremor. Psychiatric: No depression. No anxiety. Endocrine: No abnormal blood sugars. No weight change. PHYSICAL EXAMINATION Gen: This is a 76-year-old female, mildly overweight look older than her age stated her recliner does not look in any respiratory distress. HEENT: Head is atraumatic, normocephalic. Pupils equal, round. Sclerae is anicteric. NECK: Supple. No JVD. No lymphadenopathy. No thyromegaly. LUNGS: Clear to auscultation. No wheezes or rhonchi. No intercostal retractions. HEART: Regular rate and rhythm. No murmur. Mild arrhythmia with skipped beats. ABDOMEN: Soft. Bowel sounds are present. No masses. Slight discomfort lower abdominal area. EXTREMITIES: 1+ edema with slight discoloration more like chronic lymphedema and dermatitis. NEUROLOGICAL: Patient is awake, alert and oriented x3. Cranial nerves 2 through 12 are 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. She has essential tremor with worsening in her head and neck area and upper extremity. ASSESSMENT AND PLAN 1. Acute kidney injury most likely acute tubular necrosis: Much better so far continue to improve. Creatinine stable at 2.4 2 severe hyperkalemia. Resolved. Hold Lokelma for today. Repeat BMP tomorrow. 3 type 2 diabetes uncontrolled with hyperglycemia. Continue glipizide 5 mg twice a day, off metformin completely, continue Lantus increased to 45 units at bedtime, continue NovoLog 5 units with meals and at bedtime and NovoLog scale 4 chronic edema and lymphedema: On Lasix 40 mg by mouth daily 5 hypertension: Patient is off Benicar and spironolactone. Continue patient on atenolol 50 mg daily. 6 chronic history of gout: Has been on allopurinol continue medication. 7 hyperlipidemia: Still on simvastatin 20 mg a day. 8 recent urinary tract infection: Patient was on Bactrim DS which probably cause more acute kidney injury with hyperkalemia at this point. Bactrim discontinued. 9 chronic iron deficiency anemia: Continue iron supplement watch her hemoglobin. 10 chronic history of kidney stone: Patient was on potassium citrate which will be held for now. Discharge planning: Patient be transferred to inpatient rehab [facility] tomorrow. Awaiting insurance appeal initiated by the family. Impression and plan of care have been directed as dictated by the signing physician. Jennyfer Tellez nurse practitioner acting as scribe for signing physician. Objective - Vital Signs Vital signs: Vital Signs Temp 97.6 F 11/18/21 07:35 Pulse 73 11/18/21 08:00 Resp 18 11/18/21 08:00 BP 144/78 11/18/21 07:35 Pulse Ox 92 L 03/16/22 07:35 Intake & Output 11/17/21 11/18/21 11/18/21 18:59 06:59 18:59 Intake Total 1080 400 Balance 1080 400 Intake: Oral 1080 400 Other: Voiding Method Bedside Commode Bedside Commode # Voids 4 2 # Bowel Movements 1 - Labs CBC & Chem 7: 11/16/21 05:57 11/18/21 03:03 Labs: Abnormal Lab Results - Last 24 Hours (Table) 11/17/21 11/17/21 11/17/21 Range/Units 11:19 16:27 20:56 POC Glucose (mg/dL) 342 H 405 H 354 H (75-99) mg/dL 11/18/21 11/18/21 Range/Units 01:30 07:00 POC Glucose (mg/dL) 222 H 169 H (75-99) mg/dL
[2021-11-18 16:30] LABS: Glucose,Whole Blood 327 mg/dL (75-99)
--- NOTE | 2021-11-18 17:15 | CDI ---
Documentation Clarification Form Date: 11/18/2021 04:56:47 PM From: May Torres RN, CCDS Admit Date: 11/10/2021 02:37:00 PM Patient Name: Luisa Umaña Visit Number: [id number] Discharge Date: ATTENTION: The Clinical Documentation Specialists (CDI) and [facility] Coding Staff appreciate your assistance in clarifying documentation. Please respond to the clarification below the line at the bottom and electronically sign. The CDI & [facility] Coding staff will review the response and follow-up if needed. Please note: Queries are made part of the Legal Health Record. If you have any questions, please contact the author of this message via ITS. Dr. Saman Shea Your patient has the documented diagnosis of unspecified CHF in the past medical history. Additional information regarding the type and acuity] of CHF is requested. History/Risk Factors: Diabetes mellitus type 2, chronic kidney disease, Rheumatoid arthritis, Hypertension, Coronary artery disease Clinical Indicators: 76-year-old female per H/P chronic history of anasarca and edema has been on chronic diuretics use with spironolactone 100mg a day and Lasix 20 mg daily. ED is showing past medical history of heart failure. 11/10 VS/Pulse OX: 134/78 67 18 98.0 95 % RA 11/10 BNP: BNP 404 06/09 2018 Last reported Echocardiogram Results: Overall left ventricular systolic function is mildly impaired with, an EF between 45-50 % Mild pulmonary hypertension 11/10 Chest X Ray: No acute cardiopulmonary process Treatment: Lasix 40MG PO Daily Lasix 60 MG IV Once (11/11) Lasix 40 MG IV Once (11/14) Tenormin 50MG PO Daily, Lipitor 10MG PO HS, In your professional opinion, can you please clarify the acuity and type of CHF if known? [ ] Acute Systolic Heart Failure (reduced EF) [ ] Chronic Systolic Heart Failure (reduced EF) [ ] Acute on Chronic Systolic Heart Failure (reduced EF) [ ] Acute Diastolic Heart Failure (preserved EF) [ ] Chronic Diastolic Heart Failure (preserved EF) [ ] Acute on Chronic Diastolic Heart Failure (preserved EF) [ ] Acute Systolic & Diastolic Heart Failure [ ] Chronic Systolic & Diastolic Heart Failure [ xx ] Acute on Chronic Heart Failure Systolic & Diastolic Heart Failure [ ] Heart failure ruled out [ ] Other, please specify [ ] Unable to determine (Template Last Revised: October 2020) MTDD
[2021-11-18 20:55] LABS: Glucose,Whole Blood 252 mg/dL (75-99)
[2021-11-18] MEDS: ATORVASTATIN 10 MG TAB PO SCH (21:00)
[2021-11-18] MEDS: INSULIN DETEMIR (LEVEMIR) 100 UNIT/ML SYR SQ SCH (21:01)
[2021-11-19 02:09] LABS: Glucose,Whole Blood 151 mg/dL (75-99)
[2021-11-19 06:18] LABS: Glucose,Whole Blood 136 mg/dL (75-99)
--- NOTE | 2021-11-19 07:09 | XR ---
EXAMINATION TYPE: XR pelvis AP view DATE OF EXAM: 11/19/2021 CLINICAL HISTORY: Fall with pain TECHNIQUE: A single AP view of the pelvis is obtained. COMPARISON: None. FINDINGS: Osseous structures are demineralized. There is acute displaced comminuted intertrochanteric fracture right proximal femur at proximal intramedullary renny level. Some impaction and medial displa cement distal fracture fragment noted. No hip joint dislocation. Moderate to severe narrowing and spu rring of both hip joints greater on the right hip joint incidentally seen. Pubic symphysis is intact. Sacroiliac joints are preserved. Overlying scattered pelvic phleboliths incidentally noted. IMPRESSION: As above. Results communicated to patient's nurse via telephone at time of dictation. A Document Only message has been documented for Akbar Jackson in the [facility] system on 11/19/2021 7:06 AM, Message ID [id number].
--- NOTE | 2021-11-19 07:10 | XR ---
EXAMINATION TYPE: XR tibia fibula RT DATE OF EXAM: 11/19/2021 CLINICAL HISTORY: Fall injury with pain TECHNIQUE: Two views of the right leg are obtained. COMPARISON: Prior right knee x-ray April 08, 2019. FINDINGS: Osseous structures are demineralized which was noted to lower radiographic sensitivity. The re is no acute displaced fracture seen in the right tibia or fibula. Partial visualization of surgica l change distal femur and right knee level. Visualized portion of the ankle joint is within normal li mits. Moderate posterior arterial vascular calcification. IMPRESSION: There is no acute fracture or dislocation seen in the right tibia or fibula.
--- NOTE | 2021-11-19 07:20 | CT ---
EXAMINATION TYPE: CT brain wo con DATE OF EXAM: 11/19/2021 COMPARISON: 06/18/2018 HISTORY: Fall CT DLP: 1072.[address] of the brain was performed. The ventricles, basal cisterns and sulci overlying the cerebral convexities demonstrate mild enlargem ent. There is no evidence for intracranial hemorrhage or sulcal effacement. There is decreased attenuation about the periventricular white matter and deep white matter of both c erebral hemispheres, compatible with chronic small vessel ischemia. Differential diagnosis does inclu de demyelination. No mass effects are seen.No midline shift. Osseous calvarium is intact. If symptoms persist consider MRI. IMPRESSION: 1. Age related atrophic and chronic small vessel ischemic change without acute intracranial process s een at this time.
[2021-11-19 07:30] LABS: Glucose,Whole Blood 164 mg/dL (75-99)
[2021-11-19] MEDS ORDERED: HYDROmorphone 1 MG/ML 1 ML SYRINGE IVP PRN (07:44)
--- NOTE | 2021-11-19 07:51 | P.PN ---
Subjective Progress Note Date: 11/19/21 HISTORY OF PRESENT ILLNESS 76-year-old female one of Dr. 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 Patient apparently has not been feeling well for the last 2 weeks was diagnosed with UTI 2 weeks ago started on Bactrim DS which she finished yesterday. She had apparently blood tests of Dr. Lehman office a week ago shows a potassium to be 6.0 was post to have repeat test without having any adjusted medication at the time when she felt really sick today been tired fatigue not been able to a mbulate and walk addition to having to have diarrhea with mild nausea and slight bloated abdomen. She ended up coming to the emergency department for the above problem was seen and evaluated surprisingly her potassium was 8.0 and patient was in acute kidney failure at the time with acute kidney injury. Patient was started on hydration was giving some kayaxalate nephrology consultation, ultrasound of the kidney was negative for any major abnormality patient be admitted to the hospital for the above problem. 11/11: Patient is doing much better today, potassium is down to 6.1, GFR is improved some with a creatinine is down to 2.6 compared to yesterday. Clinically has significant improvement with no major pain and discomfort with tiredness and fatigue is much better. Patient will be transfer out of the ICU today we'll continue to monitor potassium tablets at least below 5. Patient will be kept on hydration titrate diet at this point keep watching her blood sugar. 11/12: Patient is doing much better today she's having slight stomach discomfort was transferred out of ICU yesterday to medical floor bed. The kidney function has improved still on close to baseline potassium is down to 5.0. Patient is still on hydration titrate diet titrate physical therapy and hopefully if her numbers are better tomorrow be able to send her home. 11/13: Patient is doing much better today her potassium climb up to 5.4 but still stable kidney function is no different than before, blood sugar was noted bit elevated today. Evaluated by physiatry will require physical therapy. Whether patient will be able to move to inpatient rehab or go home with home care and physical therapy would be left up to her and her family. 11/14: Patient did not make it to rehab yesterday. Her potassium today is up to 5.8, apparently the hospital does scary leukoma in stock we will give patient 10 mg 1 time today then 5 mg every day for 7 days repeat CMP tomorrow the meanwhile kidney function has improved some patient mental status is much better mobility still significantly decrease this to require physical therapy. 11/15: Patient will be going to [facility] rehab tomorrow apparently the rehab center at [facility] did not accept her. Her potassium is pending this morning we started leukoma yesterday patient is not having any side effects so far. Patient is complaining of dryness and slight nosebleed mostly from the left side will use Mk-Synephrine nasal spray 3 times a day today and an as-needed basis afterward plus patient to change the humidity in her house and probably to using him to fight oxygen if she ever need to go back on nasal cannula. Physical therapy and mobility improved some. 11/16 and patient examined bedside. She did have a bowel movement today. Denies any diarrhea or nausea or vomiting. Denies any episode of nose bleeding today. She does state that she was nauseous early in the morning but has improved without the need of medication. Labs were reviewed with the patient sodium 136 potassium 5.9 and creatinine is stable at 2.4 glucose stays between 179 to 367 . Lokelma increased to 10 mg twice daily. Lantus increased to 45 units daily at bedtime continue bicarb drip continue Lasix 40 mg by mouth daily possible inpatient rehab tomorrow. 11/17: Patient's insurance has denied inpatient rehab but suggested subacute rehab. Family is now appealing the decision with the insurance company for inpatient rehab. Patient remains afebrile, heart rate 75, blood pressure 124/75 and pulse ox 96% on room air. Repeat blood work reveals electrolytes are normal, BUN 61 and creatinine 2.3. Blood sugars remain elevated despite increase of Levemir to 45 units yesterday. We'll also add in Humalog 5 units with meals with scale. 11/18: Patient's blood sugars are improving this morning of 169 at 1 AM 222. Patient has been afebrile, heart rate in the 70s, blood pressure 144/78, pulse ox 92% on room air. Patient is followed by nephrology with plan to maintain leukoma, bicarbonate Lasix, low potassium diet, avoid nephrotoxins. Patient will need repeat BMP and magnesium level 2-3 days after discharge. Patient in follow-up with nephrology in 1 week. Family made an appeal to her insurance company regarding inpatient rehab and this is still in a pending status. Kenyetta schaefer denies any new concerns. She states that she would like to wait for the appeal process and if that does not work she'll either choose a placed local or go to [facility] where her daughter is living. Potassium today is 4.2 and Lokelma on hold today. 11/19: Patient had a fall this morning that was witnessed. Patient had finished using the commode and was standing with a nurse aide wiping her bottom. Patient passed out, fell forward, hit her head and complained of right leg pain. Pelvic x-ray revealed acute displaced comminuted intratrochanteric fracture right proximal femur at the proximal intramedullary renny level. Right tib-fib x-ray showed no acute fracture. CAT scan of the brain showed age-related atrophy and chronic small vessel ischemic change without acute intracranial process. Consult was added for Dr. Jiménez, patient started on Dilaudid for pain. Recommendations from ortho is transfer to [facility] for Trauma surgeon. Arrangements have been made. Dr. Jackson has spoken with Dr. Couch. REVIEW OF SYSTEMS Constitutional: No fever, no chills, no night sweats. No weight change. Positive for weakness fatigue tiredness and denies sleepiness. EENT: No headache. No blurred vision or double vision, no loss of vision. No loss of Hearing, no ringing in the ears, no dizziness. No nasal drainage or congestion. No epistaxis. No sore throat. Lungs: No shortness of breath, cough, no sputum production. No wheezing. Cardiovascular: Mild congestion but No chest pain, no lower extremity edema. No palpitations. No paroxysmal nocturnal dyspnea. No orthopnea. No lightheadedness or dizziness. No syncopal episodes. Abdominal: No abdominal pain. No nausea, vomiting. No diarrhea. No constipation. No bloody or tarry stools.. No loss of appetite. Genitourinary: Denies dysuria or increased frequency of urine Musculoskeletal: Positive generalized myalgia with muscle weakness with abnormal balance gait no fall lately. Integumentary: No wounds, no lesions. No rash or pruritus. No unusual bruising. No change in hair or nails. Neurologic: No aphasia. No facial droop. No change in mentation. No head injury. No headache. No paralysis. No paresthesia. She has more like essential tremor. Psychiatric: No depression. No anxiety. Endocrine: No abnormal blood sugars. No weight change. PHYSICAL EXAMINATION Gen: This is a 76-year-old female, mildly overweight look older than her age stated her recliner does not look in any respiratory distress. HEENT: Head is atraumatic, normocephalic. Pupils equal, round. Sclerae is anicteric. NECK: Supple. No JVD. No lymphadenopathy. No thyromegaly. LUNGS: Clear to auscultation. No wheezes or rhonchi. No intercostal retractions. HEART: Regular rate and rhythm. No murmur. Mild arrhythmia with skipped beats. ABDOMEN: Soft. Bowel sounds are present. No masses. Slight discomfort lower abdominal area. EXTREMITIES: 1+ edema with slight discoloration more like chronic lymphedema and dermatitis. NEUROLOGICAL: Patient is awake, alert and oriented x3. Cranial nerves 2 through 12 are 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. She has essential tremor with worsening in her head and neck area and upper extremity. ASSESSMENT AND PLAN 1. Acute kidney injury most likely acute tubular necrosis: Much better so far continue to improve. Creatinine stable at 2.4 2 severe hyperkalemia. Resolved. Hold [facility] for today. Repeat [facility] tomorrow. 3 type 2 diabetes uncontrolled with hyperglycemia. Continue glipizide 5 mg twice a day, off metformin completely, continue Lantus increased to 45 units at bedtime, continue NovoLog 5 units with meals and at bedtime and NovoLog scale 4 chronic edema and lymphedema: On Lasix 40 mg by mouth daily 5 hypertension: Patient is off Benicar and spironolactone. Continue patient on atenolol 50 mg daily. 6 chronic history of gout: Has been on allopurinol continue medication. 7 hyperlipidemia: Still on simvastatin 20 mg a day. 8 recent urinary tract infection: Patient was on Bactrim DS which probably cause more acute kidney injury with hyperkalemia at this point. Bactrim discontinued. 9 chronic iron deficiency anemia: Continue iron supplement watch her hemoglobin. 10 chronic history of kidney stone: Patient was on potassium citrate which will be held for now. 11. Right intratrochanteric femur fracture. Consult with Dr. Jiménez. Dilaudid added for pain. Patient is now nonweightbearing. DISCHARGE PLAN Patient will require subacute rehab. Impression and plan of care have been directed as dictated by the signing physician. Jennyfer Tellez nurse practitioner acting as scribe for signing physician. Objective - Vital Signs Vital signs: Vital Signs Temp 97.5 F L 11/19/21 02:00 Pulse 70 11/19/21 06:00 Resp 17 11/19/21 06:00 BP 141/60 11/19/21 06:00 Pulse Ox 96 11/19/21 07:39 Intake & Output 11/18/21 11/19/21 11/19/21 18:59 06:59 18:59 Other: Voiding Method Bedside Commode # Voids 3 # Bowel Movements 1 - Labs CBC & Chem 7: 11/16/21 05:57 11/19/21 03:17 Labs: Abnormal Lab Results - Last 24 Hours (Table) 11/18/21 11/18/21 11/18/21 Range/Units 03:03 11:25 16:28 BUN 65.0 H (9.0-27.0) mg/dL Creatinine 2.3 H (0.6-1.5) mg/dL Est GFR (CKD-EPI)AfAm 23.5 L (60.0-200.0) Est GFR (CKD-EPI)NonAf 20.3 L (60.0-200.0) BUN/Creatinine Ratio 28.26 H (12.00-20.00) Ratio Glucose 173 H (70-110) mg/dL POC Glucose (mg/dL) 301 H 327 H (75-99) mg/dL 11/18/21 11/19/21 11/19/21 Range/Units 20:54 02:07 06:08 BUN (9.0-27.0) mg/dL Creatinine (0.6-1.5) mg/dL Est GFR (CKD-EPI)AfAm (60.0-200.0) Est GFR (CKD-EPI)NonAf (60.0-200.0) BUN/Creatinine Ratio (12.00-20.00) Ratio Glucose (70-110) mg/dL POC Glucose (mg/dL) 252 H 151 H 136 H (75-99) mg/dL 11/19/21 Range/Units 07:29 BUN (9.0-27.0) mg/dL Creatinine (0.6-1.5) mg/dL Est GFR (CKD-EPI)AfAm (60.0-200.0) Est GFR (CKD-EPI)NonAf (60.0-200.0) BUN/Creatinine Ratio (12.00-20.00) Ratio Glucose (70-110) mg/dL POC Glucose (mg/dL) 164 H (75-99) mg/dL
[2021-11-19] MEDS: INSULIN ASPART (NovoLOG) 100 UNIT/ML VIAL SQ SCH ×4 (07:52→12:15)
[2021-11-19] MEDS: HEPARIN SODIUM,PORCINE/PF 5,000 UNIT/0.5 ML SYRINGE SQ SCH (07:52)
[2021-11-19] MEDS: FERROUS SULFATE 325 MG TAB PO SCH (07:53)
[2021-11-19] MEDS: ASPIRIN 81 MG PO SCH (07:53)
[2021-11-19] MEDS: HYDROmorphone 0.5 MG/0.5 ML SYRINGE IVP PRN ×2 (07:53→12:32)
[2021-11-19] MEDS: glipiZIDE 5 MG TAB PO SCH (07:53)
[2021-11-19] MEDS: polyethylene glycoL 3350 17 GM POWD.PACK PO SCH (07:53)
[2021-11-19] MEDS: CYANOCOBALAMIN 500 MCG TAB PO SCH (07:53)
[2021-11-19] MEDS: MAGNESIUM OXIDE 400 MG TAB PO SCH (07:53)
[2021-11-19] MEDS: atenoloL 50 MG TAB PO SCH (07:53)
[2021-11-19] MEDS: DOCUSATE 100 MG CAP PO SCH (07:53)
[2021-11-19] MEDS: FUROSEMIDE 40 MG TAB PO SCH (07:54)
[2021-11-19] MEDS: allopurinoL 100 MG TAB PO SCH (07:54)
--- NOTE | 2021-11-19 08:21 | P.TRANS ---
Providers Date of admission: 11/10/21 14:37 Expected date of discharge: 11/19/21 Attending physician: Saman Shea Consults: 11/10/21 14:43 Consult Physician Stat Consulting Provider: Delia Ball Consult Reason/Comments: Hyperkalemia; TERRENCE Do you want consulting provider notified?: Already Contacted 11/12/21 15:06 Consult Physician Routine Consulting Provider: Frank Platt Consult Reason/Comments: [facility] in [place] Do you want consulting provider notified?: Yes 11/19/21 07:17 Consult Physician Stat Consulting Provider: Benjamin Jiménez Consult Reason/Comments: right hip fracture. Do you want consulting provider notified?: Yes Primary care physician: Alberto Lehman [facility] Course: HISTORY OF PRESENT ILLNESS 76-year-old female one of Dr. Lehman patient is known to have history of type 2 diabetes, chronic kidney disease, history of rheumatoid arthritis, history of CAD, history of hypertension and hyperlipidemia who seen application developer in [facility] and stop seen her compressor operator adjuster last few month who is also known to have chronic history of anasarca and edema has been on chronic diuretics use with spironolactone 100 mg a day and Lasix 20 mg daily. Patient apparently has not been feeling well for the last 2 weeks was diagnosed with UTI 2 weeks ago started on Bactrim DS which she finished yesterday. She had apparently blood tests of Dr. Lehman office a week ago shows a potassium to be 6.0 was post to have repeat test without having any adjusted medication at the time when she felt really sick today been tired fatigue not been able to ambulate and walk addition to having to have diarrhea with mild nausea and slight bloated abdomen. She ended up coming to the emergency department for the above problem was seen and evaluated surprisingly her potassium was 8.0 and patient was in acute kidney failure at the time with acute kidney injury. Patient was started on hydration was giving some kayaxalate nephrology consultation, ultrasound of the kidney was negative for any major abnormality patient be admitted to the hospital for the above problem. 11/11: Patient is doing much better today, potassium is down to 6.1, GFR is improved some with a creatinine is down to 2.6 compared to yesterday. Clinically has significant improvement with no major pain and discomfort with tiredness and fatigue is much better. Patient will be transfer out of the ICU today we'll continue to monitor potassium tablets at least below 5. Patient will be kept on hydration titrate diet at this point keep watching her blood sugar. 11/12: Patient is doing much better today she's having slight stomach discomfort was transferred out of ICU yesterday to medical floor bed. The kidney function has improved still on close to baseline potassium is down to 5.0. Patient is still on hydration titrate diet titrate physical therapy and hopefully if her numbers are better tomorrow be able to send her home. 11/13: Patient is doing much better today her potassium climb up to 5.4 but still stable kidney function is no different than before, blood sugar was noted bit elevated today. Evaluated by physiatry will require physical therapy. Whether patient will be able to move to inpatient rehab or go home with home care and physical therapy would be left up to her and her family. 11/14: Patient did not make it to rehab yesterday. Her potassium today is up to 5.8, apparently the hospital does scary leukoma in stock we will give patient 10 mg 1 time today then 5 mg every day for 7 days repeat CMP tomorrow the meanwhile kidney function has improved some patient mental status is much better mobility still significantly decrease this to require physical therapy. 11/15: Patient will be going to [facility] rehab tomorrow apparently the rehab center at [place] did not accept her. Her potassium is pending this morning we started leukoma yesterday patient is not having any side effects so far. Patient is complaining of dryness and slight nosebleed mostly from the left side will use Mk-Synephrine nasal spray 3 times a day today and an as-needed basis afterward plus patient to change the humidity in her house and probably to using him to fight oxygen if she ever need to go back on nasal cannula. Physical therapy and mobility improved some. 11/16 and patient examined bedside. She did have a bowel movement today. Denies any diarrhea or nausea or vomiting. Denies any episode of nose bleeding today. She does state that she was nauseous early in the morning but has improved without the need of medication. Labs were reviewed with the patient sodium 136 potassium 5.9 and creatinine is stable at 2.4 glucose stays between 179 to 367 . Lokelma increased to 10 mg twice daily. Lantus increased to 45 units daily at bedtime continue bicarb drip continue Lasix 40 mg by mouth daily possible inpatient rehab tomorrow. 11/17: Patient's insurance has denied inpatient rehab but suggested subacute rehab. Family is now appealing the decision with the insurance company for inpatient rehab. Patient remains afebrile, heart rate 75, blood pressure 124/75 and pulse ox 96% on room air. Repeat blood work reveals electrolytes are rosamaria l, BUN 61 and creatinine 2.3. Blood sugars remain elevated despite increase of Levemir to 45 units yesterday. We'll also add in Humalog 5 units with meals with scale. 11/18: Patient's blood sugars are improving this morning of 169 at 1 AM 222. Patient has been afebrile, heart rate in the 70s, blood pressure 144/78, pulse ox 92% on room air. Patient is followed by nephrology with plan to maintain leukoma, bicarbonate Lasix, low potassium diet, avoid nephrotoxins. Patient will need repeat BMP and magnesium level 2-3 days after discharge. Patient in follow-up with nephrology in 1 week. Family made an appeal to her insurance company regarding inpatient rehab and this is still in a pending status. Patient denies any new concerns. She states that she would like to wait for the appeal process and if that does not work she'll either choose a placed local or go to [place] where her daughter is living. Potassium today is 4.2 and Lokelma on hold today. 11/19: Patient had a fall this morning that was witnessed. Patient had finished using the commode and was standing with a nurse aide wiping her bottom. Patient passed out, fell forward, hit her head and complained of right leg pain. Pelvic x-ray revealed acute displaced comminuted intratrochanteric fracture right proximal femur at the proximal intramedullary renny level. Right tib-fib x-ray showed no acute fracture. CAT scan of the brain showed age-related atrophy and chronic small vessel ischemic change without acute intracranial process. Consult was added for Dr. Jiménez, patient started on Dilaudid for pain. Recommendations from ortho is transfer to [facility] for Trauma surgeon. Arrangements have been made. Dr. Jackson has spoken with Dr. Couch. REVIEW OF SYSTEMS Constitutional: No fever, no chills, no night sweats. No weight change. Positive for weakness fatigue tiredness and denies sleepiness. EENT: No headache. No blurred vision or double vision, no loss of vision. No loss of Hearing, no ringing in the ears, no dizziness. No nasal drainage or congestion. No epistaxis. No sore throat. Lungs: No shortness of breath, cough, no sputum production. No wheezing. Cardiovascular: Mild congestion but No chest pain, no lower extremity edema. No palpitations. No paroxysmal nocturnal dyspnea. No orthopnea. No lightheadedness or dizziness. No syncopal episodes. Abdominal: No abdominal pain. No nausea, vomiting. No diarrhea. No constipation. No bloody or tarry stools.. No loss of appetite. Genitourinary: Denies dysuria or increased frequency of urine Musculoskeletal: Positive generalized myalgia with muscle weakness with abnormal balance gait no fall lately. Right hip pain. Integumentary: No wounds, no lesions. No rash or pruritus. No unusual bruising. No change in hair or nails. Neurologic: No aphasia. No facial droop. No change in mentation. No head injury. No headache. No paralysis. No paresthesia. She has more like essential tremor. Psychiatric: No depression. No anxiety. Endocrine: No abnormal blood sugars. No weight change. PHYSICAL EXAMINATION Gen: This is a 76-year-old female, mildly overweight look older than her age stated her recliner does not look in any respiratory distress. HEENT: Head is atraumatic, normocephalic. Pupils equal, round. Sclerae is anicteric. NECK: Supple. No JVD. No lymphadenopathy. No thyromegaly. LUNGS: Clear to auscultation. No wheezes or rhonchi. No intercostal retractions. HEART: Regular rate and rhythm. No murmur. Mild arrhythmia with skipped beats. ABDOMEN: Soft. Bowel sounds are present. No masses. Slight discomfort lower abdominal area. EXTREMITIES: 1+ edema with slight discoloration more like chronic lymphedema and dermatitis. NEUROLOGICAL: Patient is awake, alert and oriented x3. Cranial nerves 2 through 12 are 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. She has essential tremor with worsening in her head and neck area and upper extremity. ASSESSMENT AND PLAN 1. Acute kidney injury most likely acute tubular necrosis: Much better so far continue to improve. Creatinine stable at 2.4 2 severe hyperkalemia. Resolved. Hold Lokelma for today. Repeat BMP tomorrow. 3 type 2 diabetes uncontrolled with hyperglycemia. Continue glipizide 5 mg twice a day, off metformin completely, continue Lantus increased to 45 units at bedtime, continue NovoLog 5 units with meals and at bedtime and NovoLog scale 4 chronic edema and lymphedema: On Lasix 40 mg by mouth daily 5 hypertension: Patient is off Benicar and spironolactone. Continue patient on atenolol 50 mg daily. 6 chronic history of gout: Has been on allopurinol continue medication. 7 hyperlipidemia: Still on simvastatin 20 mg a day. 8 recent urinary tract infection: Patient was on Bactrim DS which probably cause more acute kidney injury with hyperkalemia at this point. Bactrim discontinued. 9 chronic iron deficiency anemia: Continue iron supplement watch her hemoglobin. 10 chronic history of kidney stone: Patient was on potassium citrate which will be held for now. 11. Right intratrochanteric femur fracture. Consult with Dr. Jiménez. Dilaudid added for pain. Patient is now nonweightbearing. Transfer to [facility]. DISCHARGE PLAN Patient will require subacute rehab. Impression and plan of care have been directed as dictated by the signing physician. Jennyfer Tellez nurse practitioner acting as scribe for signing physician. Patient Condition at Discharge: Stable Plan - Transfer Summary Transfer Medications: Active Medications Generic Name Dose Route Start Last Admin Trade Name Freq PRN Reason Stop Dose Admin Acetaminophen 650 mg 11/10/21 14:43 11/19/21 06:40 Acetaminophen Tab 325 Mg Tab PO 650 mg Q4HR PRN Administration Fever and/or Mild Pain Allopurinol 100 mg 11/11/21 09:00 11/19/21 07:54 Allopurinol 100 Mg Tab PO 100 mg DAILY ROMERO Administration Aspirin 81 mg 11/11/21 09:00 11/19/21 07:53 Aspirin 81 Mg PO 81 mg DAILY ROMERO Administration Atenolol 50 mg 11/16/21 09:00 11/19/21 07:53 Atenolol 50 Mg Tab PO 50 mg DAILY ROMERO Administration Atorvastatin Calcium 10 mg 11/10/21 21:00 11/18/21 21:00 Atorvastatin 10 Mg Tab PO 10 mg HS ROMERO Administration Bisacodyl 10 mg 11/13/21 11:30 11/18/21 07:47 Bisacodyl 10 Mg Supp RECTAL Not Given DAILY [facility] Cyanocobalamin 2,500 mcg 11/11/21 09:00 11/19/21 07:53 Cyanocobalamin 500 Mcg Tab PO 2,500 mcg DAILY ROMERO Administration Docusate Sodium 100 mg 11/14/21 21:00 11/19/21 07:53 Docusate 100 Mg Cap PO 100 mg BID ROMERO Administration Ferrous Sulfate 325 mg 11/11/21 09:00 11/19/21 07:53 Ferrous Sulfate 325 Mg Tab PO 325 mg DAILY ROMERO Administration Furosemide 40 mg 11/15/21 09:00 11/19/21 07:54 Furosemide 40 Mg Tab PO 40 mg DAILY ROMERO Administration Glipizide 5 mg 11/11/21 07:30 11/19/21 07:53 Glipizide 5 Mg Tab PO 5 mg AC-BID ROMERO Administration Heparin Sodium (Porcine) 5,000 unit 11/10/21 21:00 11/19/21 07:52 Heparin Sodium,Porcine/Pf 5,000 Unit/0.5 Ml Syringe SQ 5,000 unit Q12HR ROMERO Administration Hydromorphone HCl 1 mg 11/19/21 07:44 Hydromorphone 1 Mg/Ml 1 Ml Syringe IVP Q6HR PRN Severe Pain Hydromorphone HCl 0.5 mg 11/19/21 07:44 11/19/21 07:53 Hydromorphone 0.5 Mg/0.5 Ml Syringe IVP 0.5 mg Q4HR PRN Administration Mild to Moderate Pain Insulin Aspart 0 unit 11/12/21 12:30 11/19/21 07:52 Insulin Aspart (Novolog) 100 Unit/Ml Vial SQ 2 unit [facility] Administration Protocol Insulin Aspart 5 unit 11/17/21 12:30 11/19/21 07:52 Insulin Aspart (Novolog) 100 Unit/Ml Vial SQ 5 unit [facility] Administration Insulin Detemir 45 unit 11/16/21 21:00 11/18/21 21:01 Insulin Detemir (Levemir) 100 Unit/Ml Syr SQ 45 unit HS [facility] Administration Magnesium Oxide 400 mg 11/11/21 09:00 11/19/21 07:53 Magnesium Oxide 400 Mg Tab PO 400 mg DAILY [facility] Administration Naloxone HCl 0.2 mg 11/10/21 14:43 Naloxone 0.4 Mg/Ml 1 Ml Vial IV Q2M PRN Opioid Reversal Polyethylene Glycol 17 gm 11/13/21 09:00 11/19/21 07:53 Polyethylene Glycol 3350 17 Gm Powd.Pack PO 17 gm DAILY ROMERO Administration Senna 17.2 mg 11/13/21 11:30 11/18/21 07:45 Sennosides 8.6 Mg Tab PO 17.2 mg DAILY ROMERO Administration Sodium Bicarbonate 650 mg 11/13/21 21:00 11/18/21 21:01 Sodium Bicarbonate Tab 650 Mg Tab PO 650 mg BID ROMERO Administration Sodium Zirconium Cyclosilicate 10 gm 11/16/21 21:00 11/18/21 21:01 Sodium Zirconium Cyclosilicate 10 Gm Packet PO 11/19/21 09:01 Not Given BID ROMERO Follow up Appointment(s)/Referral(s): Delia Ball MD [STAFF PHYSICIAN] - 11/25/21 10:40 am Alberto Lehman DO [Primary Care Provider] - 11/26/21 3:00 pm [facility] Visiting Nurse, [NON-STAFF] - 1 Week Ambulatory/Diagnostic Orders: Comprehensive Metabolic Panel [LAB.AMB] Location: None Selected Discharge Disposition: OTHER INSTITUTION NOT DEFINED
--- NOTE | 2021-11-19 09:56 | P.PN ---
Subjective Patient is seen in follow-up for acute kidney injury on chronic kidney disease. Morning labs pending. On Lasix. Has been voiding. No vomiting or diarrhea. Oral intake fair. Hemodynamically stable. Fell this morning while using the bedside commode. Vital signs are stable. General: Awake and alert. HEENT: Head exam is unremarkable. LUNGS: Breath sounds decreased. HEART: Rate and Rhythm are regular. ABDOMEN: Soft, no distention. EXTREMITITES: Trace edema. Objective - Vital Signs Vital signs: Vital Signs Temp 97.5 F L 11/19/21 02:00 Pulse 70 11/19/21 06:00 Resp 17 11/19/21 06:00 BP 141/60 11/19/21 06:00 Pulse Ox 96 11/19/21 07:39 Intake & Output 11/18/21 11/19/21 11/19/21 18:59 06:59 18:59 Other: Voiding Method Bedside Commode # Voids 3 # Bowel Movements 1 - Labs CBC & Chem 7: 11/16/21 05:57 11/18/21 03:03 Labs: Abnormal Lab Results - Last 24 Hours (Table) 11/18/21 11/18/21 11/18/21 Range/Units 03:03 11:25 16:28 BUN 65.0 H (9.0-27.0) mg/dL Creatinine 2.3 H (0.6-1.5) mg/dL Est GFR (CKD-EPI)AfAm 23.5 L (60.0-200.0) Est GFR (CKD-EPI)NonAf 20.3 L (60.0-200.0) BUN/Creatinine Ratio 28.26 H (12.00-20.00) Ratio Glucose 173 H (70-110) mg/dL POC Glucose (mg/dL) 301 H 327 H (75-99) mg/dL 11/18/21 11/19/21 11/19/21 Range/Units 20:54 02:07 06:08 BUN (9.0-27.0) mg/dL Creatinine (0.6-1.5) mg/dL Est GFR (CKD-EPI)AfAm (60.0-200.0) Est GFR (CKD-EPI)NonAf (60.0-200.0) BUN/Creatinine Ratio (12.00-20.00) Ratio Glucose (70-110) mg/dL POC Glucose (mg/dL) 252 H 151 H 136 H (75-99) mg/dL 11/19/21 Range/Units 07:29 BUN (9.0-27.0) mg/dL Creatinine (0.6-1.5) mg/dL Est GFR (CKD-EPI)AfAm (60.0-200.0) Est GFR (CKD-EPI)NonAf (60.0-200.0) BUN/Creatinine Ratio (12.00-20.00) Ratio Glucose (70-110) mg/dL POC Glucose (mg/dL) 164 H (75-99) mg/dL Assessment and Plan Plan: Assessment: 1. Acute kidney injury secondary to ATN. UA benign. No hydronephrosis noted on ultrasound. Creatinine 3.01 on admission and is stable at 2.3 yesterday. 2. Chronic kidney disease stage IIIB with baseline creatinine near 1.4 in May 2021. Etiology is nephrosclerosis. 3. Hyperkalemia secondary to acute kidney injury, acidosis ARB, Bactrim and Aldactone. Improved. 4. Diabetes. 5. Metabolic acidosis secondary to acute kidney injury. On oral bicarb. Better. 6. Lower extremity edema. Improving with diuresis. 7. Status post fall with right intratrochanteric femur fracture. Orthopedic surgery consulted. Plan: Maintain bicarb. Maintain Lasix. Maintain low potassium diet. Tight blood sugar control. Avoid nephrotoxins. Continue to monitor renal function and urine output. Follow-up morning labs. Patient will need a repeat BMP and magnesium level 2-3 days postdischarge. Follow up outpatient in 1 week. Will be going to rehab facility upon discharge.
[2021-11-19 11:06] VITALS: BP 148/78; PULSE 68; RESP 16; TEMP 97.6
[2021-11-19] MEDS: SENNOSIDES 8.6 MG TAB PO SCH (11:29)
[2021-11-19] MEDS: bisacodyL 10 MG SUPP RECTAL SCH (11:29)
[2021-11-19] MEDS: SODIUM ZIRCONIUM CYCLOSILICATE 10 GM PACKET PO SCH (11:30)
[2021-11-19 11:41] LABS: African American GFR (CKD) 27.6 (60.0-200.0); Anion Gap 14.5 mmol/L (10.00-18.00); BUN/Creat Ratio 32.29 Ratio (12.00-20.00); Blood Urea Nitrogen 64.9 mg/dL (9.0-27.0); Calcium 9.5 mg/dL (8.7-10.3); Carbon Dioxide 24.3 mmol/L (20.0-27.5); Non-African American GFR(CKD) 23.8 (60.0-200.0); Potassium 4.1 mmol/L (3.5-5.5)
[2021-11-19 12:06] LABS: Glucose,Whole Blood 208 mg/dL (75-99)
[2021-11-19] MEDS: SODIUM BICARBONATE TAB 650 MG TAB PO SCH (12:15)
[2021-11-19] MEDS ORDERED: ALPRAZolam 0.5 MG TAB PO STA (13:46)
[2021-11-19] MEDS ORDERED: ONDANSETRON 4 MG/2 ML VIAL IVP PRN (13:46)
== END 2021-11-19 14:03 | disposition short-term general hospital (02) | DRG 640 ==
LOC: EC 11:50 → 2SICU 14:37 → 4SSUR 11-11 18:15
PROVIDERS: ADMIT Internal Medicine Geriatric Medicine; ATTEND Internal Medicine Geriatric Medicine
DX: E87.5 Hyperkalemia (principal); N17.0 Acute kidney failure with tubular necrosis; S72.141A Displaced intertrochanteric fracture of right femur, initial encounter for closed fracture; I50.43 Acute on chronic combined systolic (congestive) and diastolic (congestive) heart failure; I13.0 Hypertensive heart and chronic kidney disease with heart failure and stage 1 through stage 4 chronic kidney disease, or unspecified chronic kidney disease; E87.2 Acidosis; N18.32 Chronic kidney disease, stage 3b; R32 Unspecified urinary incontinence; W19.XXXA Unspecified fall, initial encounter; Y92.230 Patient room in hospital as the place of occurrence of the external cause; D50.9 Iron deficiency anemia, unspecified; E11.22 Type 2 diabetes mellitus with diabetic chronic kidney disease; E11.65 Type 2 diabetes mellitus with hyperglycemia; E78.5 Hyperlipidemia, unspecified; I25.10 Atherosclerotic heart disease of native coronary artery without angina pectoris; I89.0 Lymphedema, not elsewhere classified; M10.9 Gout, unspecified; E66.3 Overweight; R19.7 Diarrhea, unspecified; Z20.822 Contact with and (suspected) exposure to COVID-19; L89.152 Pressure ulcer of sacral region, stage 2; M06.9 Rheumatoid arthritis, unspecified; Z68.35 Body mass index [BMI] 35.0-35.9, adult; M50.30 Other cervical disc degeneration, unspecified cervical region; Z79.4 Long term (current) use of insulin; Z79.82 Long term (current) use of aspirin; Z79.84 Long term (current) use of oral hypoglycemic drugs; Z79.899 Other long term (current) drug therapy; Z82.49 Family history of ischemic heart disease and other diseases of the circulatory system; Z83.3 Family history of diabetes mellitus; Z87.440 Personal history of urinary (tract) infections; Z87.442 Personal history of urinary calculi; Z90.710 Acquired absence of both cervix and uterus; Z90.89 Acquired absence of other organs; Z90.49 Acquired absence of other specified parts of digestive tract; Z98.890 Other specified postprocedural states; Z98.49 Cataract extraction status, unspecified eye; Z88.8 Allergy status to other drugs, medicaments and biological substances
CPT/HCPCS: 36415; 70450; 71046; 72170; 76770; 80048; 80053; 81001; 82150; 83690; 83735; 83880; 84132; 84484; 85025; 85027; 85610; 85730; 87086; 87635; 93005; 94640; 94760; 96361; 96365; 96375; 99291

== ENCOUNTER 2022-07-23 09:03 | Inpatient (IN) | payer MEDICARE ==
[2022-07-23] MEDS ORDERED: SODIUM CHLORIDE 0.9% 1,000 ML IV STA (09:05)
--- NOTE | 2022-07-23 09:12 | ED ---
General Adult HPI - General Stated complaint: fall Time Seen by Provider: 07/23/22 09:03 Source: patient, RN notes reviewed, old records reviewed - History of Present Illness Initial comments: This is a 76-year-old female presents emergency Department complaining of being too weak to stand today. Patient states she was in the bathroom when she couldn't hold herself up and so she slowly went to the ground. Patient denies hitting her head or neck. Patient denies any extremity pain. Patient denies any injury from the fall. Patient states the reason she wanted to commit because she was too weak to get around on her own. Patient has been trying to eat and drink enough. Patient denies any fever chills per patient denies any recent cough per patient denies any nausea vomiting or diarrhea. Patient denies any dysuria hematuria urinary frequency. - Related Data Home Medications Medication Instructions Recorded Confirmed Aspirin 81 mg PO DAILY 07/18/14 11/10/21 Simvastatin [Zocor] 20 mg PO HS 07/18/14 11/10/21 glipiZIDE [Glipizide] 10 mg PO AC-BID 07/18/14 11/10/21 Insulin Glargine,Hum.rec.anlog 55 unit SQ HS 09/30/17 11/10/21 [Lantus Solostar Pen] Clotrimazole/Betameth Cream 1 applic TOPICAL BID 11/10/21 11/10/21 [Lotrisone] Cyanocobalamin (Vitamin B-12) 2,500 mcg PO DAILY 11/10/21 11/10/21 [Vitamin B-12] Docusate [Colace] 100 mg PO DAILY 11/10/21 11/10/21 Ferrous Sulfate [Iron (65 MG 325 mg PO DAILY 11/10/21 11/10/21 Elemental)] Magnesium Oxide [Petty] 500 mg PO DAILY 11/10/21 11/10/21 allopurinoL [Zyloprim] 100 mg PO DAILY 11/10/21 11/10/21 Previous Rx's Medication Instructions Recorded Acetaminophen Tab [Tylenol] 650 mg PO Q4HR PRN tab 11/13/21 INSULIN ASPART (NovoLOG) [NovoLOG 0 unit SQ ACHS ml 11/13/21 (formulary)] amLODIPine [Norvasc] 5 mg PO DAILY #30 tab 11/13/21 hydroCHLOROthiazide [Hydrodiuril] 25 mg PO DAILY tab 11/13/21 polyethylene glycoL 3350 [Miralax] 17 gm PO DAILY packet 11/13/21 Allergies Allergy/AdvReac Type Severity Reaction Status Date / Time gabapentin AdvReac Hallucinati Verified 07/23/22 09:10 ons Review of Systems ROS Statement: Those systems with pertinent positive or pertinent negative responses have been documented in the HPI. ROS Other: All systems not noted in ROS Statement are negative. Past Medical History Past Medical History: Heart Failure, Diabetes Mellitus, Hyperlipidemia, Hyperte nsion, Pneumonia, Rheumatoid Arthritis (RA) Additional Past Medical History / Comment(s): tremors, renal lithiasis, hemorrhoids(sx done), "has had problems w/low magnesium.anemia. per posue pt had past cancer "uterine or cervical-had hysterectomy". it was previously charted that pt had hx of ra and cfh spouse not able to verify this, History of Any Multi-Drug Resistant Organisms: ESBL Date of last positivie culture/infection: 05/11/18 MDRO Source:: ESBL URINE Past Surgical History: Appendectomy, Hysterectomy, Orthopedic Surgery, Tonsillectomy Additional Past Surgical History / Comment(s): rt total knee repalcement, cataracts, hemmorroidectomy, colonoscopy Past Anesthesia/Blood Transfusion Reactions: No Reported Reaction Additional Past Anesthesia/Blood Transfusion Reaction / Comment(s): per psouse- pt never receieved any blood Past Psychological History: No Psychological Hx Reported Past Alcohol Use History: None Reported Past Drug Use History: None Reported - Past Family History Mother Family Medical History: Diabetes Mellitus Father Additional Family Medical History / Comment(s): brain anuerysm General Exam - General Exam Comments Initial Comments: GENERAL: Patient is well-developed and well-nourished. Patient is nontoxic and well- hydrated and is in mild distress. ENT: Neck is soft and supple. No significant lymphadenopathy is noted. Oropharynx is clear. Moist mucous membranes. Neck has full range of motion without eliciting any pain. EYES: The sclera were anicteric and conjunctiva were pink and moist. Extraocular movements were intact and pupils were equal round and reactive to light. Eyelids were unremarkable. PULMONARY: Unlabored respirations. Good breath sounds bilaterally. No audible rales rhonchi or wheezing was noted. CARDIOVASCULAR: Patient is tachycardic and has an irregular irregular heartbeat ABDOMEN: Soft and nontender with normal bowel sounds. SKIN: Skin is clear with no lesions or rashes and otherwise unremarkable. NEUROLOGIC: Patient is alert and oriented x3. Cranial nerves II through XII are grossly i ntact. Motor and sensory are also intact. Normal speech, volume and content. Symmetrical smile. MUSCULOSKELETAL: Normal extremities with adequate strength and full range of motion. No lower extremity swelling or edema. No calf tenderness. LYMPHATICS: No significant lymphadenopathy is noted PSYCHIATRIC: Normal psychiatric evaluation. Course Vital Signs 07/23/22 07/23/22 09:06 09:55 Temperature 97 F L Pulse Rate 110 H 103 H Respiratory 18 18 Rate Blood Pressure 165/88 128/69 O2 Sat by Pulse 95 98 Oximetry Medical Decision Making - Medical Decision Making I interpreted EKG shows atrial fibrillation with rapid ventricular response at 117 bpm QRS is 104 QT interval 344 QTC is 414. Patient's EKG shows no ST segment elevation or depression. I interpreted the chest x-ray. Chest x-ray shows pulmonary edema. The patient was started on a Cardizem drip. Patient was given 20 mg of Lasix. I spoke with [facility] agreed to admit the patient admitted the patient wrote admitting orders. - Lab Data Result diagrams: 07/23/22 09:37 07/23/22 09:37 Lab Results 07/23/22 07/23/22 07/23/22 Range/Units 09:37 09:37 09:37 WBC 11.1 H (3.8-10.6) k/uL RBC 5.09 (3.80-5.40) m/uL Hgb 15.5 (11.4-16.0) gm/dL Hct 47.4 H (34.0-46.0) % MCV 93.2 (80.0-100.0) fL MCH 30.4 (25.0-35.0) pg MCHC 32.7 (31.0-37.0) g/dL RDW 13.0 (11.5-15.5) % Plt Count 277 (150-450) k/uL MPV 7.9 Neutrophils % 74 % Lymphocytes % 16 % Monocytes % 7 % Eosinophils % 2 % Basophils % 0 % Neutrophils # 8.2 H (1.3-7.7) k/uL Lymphocytes # 1.8 (1.0-4.8) k/uL Monocytes # 0.7 (0-1.0) k/uL Eosinophils # 0.2 (0-0.7) k/uL Basophils # 0.0 (0-0.2) k/uL Hypochromasia Slight PT 10.6 (9.0-12.0) sec INR 1.0 (<1.2) APTT 22.0 (22.0-30.0) sec Sodium 142 (137-145) mmol/L Potassium 3.3 L (3.5-5.1) mmol/L Chloride 101 (98-107) mmol/L Carbon Dioxide 34 H (22-30) mmol/L Anion Gap 7 mmol/L BUN 37 H (7-17) mg/dL Creatinine 1.32 H (0.52-1.04) mg/dL Est GFR (CKD-EPI)AfAm 46 (>60 ml/min/1.73 sqM) Est GFR (CKD-EPI)NonAf 40 (>60 ml/min/1.73 sqM) Glucose 74 (74-99) mg/dL Plasma Lactic Acid Woo (0.7-2.0) mmol/L Calcium 10.0 (8.4-10.2) mg/dL Magnesium 1.6 (1.6-2.3) mg/dL Total Bilirubin 0.8 (0.2-1.3) mg/dL AST 25 (14-36) U/L ALT 25 (4-34) U/L Alkaline Phosphatase 68 (38-126) U/L Total Protein 6.7 (6.3-8.2) g/dL Albumin 3.9 (3.5-5.0) g/dL 07/23/22 Range/Units 09:37 WBC (3.8-10.6) k/uL RBC (3.80-5.40) m/uL Hgb (11.4-16.0) gm/dL Hct (34.0-46.0) % MCV (80.0-100.0) fL MCH (25.0-35.0) pg MCHC (31.0-37.0) g/dL RDW (11.5-15.5) % Plt Count (150-450) k/uL MPV Neutrophils % % Lymphocytes % % Monocytes % % Eosinophils % % Basophils % % Neutrophils # (1.3-7.7) k/uL Lymphocytes # (1.0-4.8) k/uL Monocytes # (0-1.0) k/uL Eosinophils # (0-0.7) k/uL Basophils # (0-0.2) k/uL Hypochromasia PT (9.0-12.0) sec INR (<1.2) APTT (22.0-30.0) sec Sodium (137-145) mmol/L Potassium (3.5-5.1) mmol/L Chloride (98-107) mmol/L Carbon Dioxide (22-30) mmol/L Anion Gap mmol/L BUN (7-17) mg/dL Creatinine (0.52-1.04) mg/dL Est GFR (CKD-EPI)AfAm (>60 ml/min/1.73 sqM) Est GFR (CKD-EPI)NonAf (>60 ml/min/1.73 sqM) Glucose (74-99) mg/dL Plasma Lactic Acid Woo 2.0 (0.7-2.0) mmol/L Calcium (8.4-10.2) mg/dL Magnesium (1.6-2.3) mg/dL Total Bilirubin (0.2-1.3) mg/dL AST (14-36) U/L ALT (4-34) U/L Alkaline Phosphatase (38-126) U/L Total Protein (6.3-8.2) g/dL Albumin (3.5-5.0) g/dL Critical Care Time Critical Care Time: Yes Total Critical Care Time: 35 Disposition Clinical Impression: New onset a-fib, Atrial fibrillation with rapid ventricular response, Pulmonary edema Disposition: ADMITTED IP TO THIS HOSP Referrals: Alberto Lehman DO [Primary Care Provider] - 1-2 days Time of Disposition: 10:19
[2022-07-23] MEDS ORDERED: HEPARIN SODIUM 1,000 UN/ML (10ML VL) IV ONE (09:25)
[2022-07-23] MEDS ORDERED: HEPARIN SOD,PORK IN 0.45% NACL 25,000 UNIT in 0.45% NACL 1 250ML.BAG IV SCH (09:30)
[2022-07-23 09:47] LABS: Basophils % (A) 0 %; Eosinophils # (A) 0.2 k/uL (0-0.7); Eosinophils % (A) 2 %; HCT 47.4 % (34.0-46.0); HGB 15.5 gm/dL (11.4-16.0); Hypochromasia Slight; Lymphocytes # (A) 1.8 k/uL (1.0-4.8); Lymphocytes % (A) 16 %; MCH 30.4 pg (25.0-35.0); MCHC 32.7 g/dL (31.0-37.0); MCV 93.2 fL (80.0-100.0); Mean Platelet Volume 7.9; Monocytes # (A) 0.7 k/uL (0-1.0); Monocytes % (A) 7 %; Neutrophils # (A) 8.2 k/uL (1.3-7.7); Neutrophils % (A) 74 %; Platelet Count 277 k/uL (150-450); RBC 5.09 m/uL (3.80-5.40); WBC 11.1 k/uL (3.8-10.6)
--- NOTE | 2022-07-23 09:55 | XR ---
EXAMINATION TYPE: XR chest 2V DATE OF EXAM: 07/23/2022 COMPARISON: 11/10/2021 TECHNIQUE: PA and lateral views submitted. HISTORY: Weakness FINDINGS: Bilateral lower lobe infiltrate and small effusion with diffuse interstitial pattern. No pneumothorax . Arthropathy of the shoulders with diffuse osteopenia. Hypertrophic and degenerative changes spine. Limited inspiration. Hyperinflation suggests COPD. IMPRESSION: 1. COPD with bilateral lower lobe infiltrate and small effusion correlate for pneumonia otherwise con router tender CHF.
[2022-07-23 09:57] LABS: Prothrombin Time 10.6 sec (9.0-12.0)
[2022-07-23] MEDS ORDERED: DILTIAZEM 125 MG in SODIUM CHLORIDE 0.9% 100 ML IV SCH (10:00)
[2022-07-23 10:09] LABS: Albumin 3.9 g/dL (3.5-5.0); Magnesium 1.6 mg/dL (1.6-2.3); Potassium 3.3 mmol/L (3.5-5.1); Total Bilirubin 0.8 mg/dL (0.2-1.3); Total Protein 6.7 g/dL (6.3-8.2)
[2022-07-23] MEDS ORDERED: FUROSEMIDE 10 MG/ML 2 ML VIAL IV ONE (10:19)
[2022-07-23] MEDS ORDERED: NITROGLYCERIN SL TABS 0.4 MG TAB SUBLINGUAL PRN (10:20)
--- NOTE | 2022-07-23 12:25 | P.CRDCN ---
History of Present Illness Consult date: 07/23/22 History of present illness: HISTORY OF PRESENT ILLNESS: This is a 76-year-old female with a past medical history significant for hypertension, hyperlipidemia, and diabetes. Patient follows in the office with Dr. Chaudhari but has not been seen in the office since May 2021. We have been asked to see the patient in consultation for afib with RVR. Patient examined at the bedside. Patient presented to the hospital with a chief complaint of weakn ess. Patient denies having any chest pain or pressure. She denies SOB. Patient was found to be in atrial fibrillation with RVR. Patient denies history of atrial fibrillation. Bedside telemetry reveals multifocal atrial tachycardia with short bursts of atrial fibrillation. * EKG reveals atrial fibrillation * Chest xray COPD with bilateral lower lobe infiltrate and small effusion correlate for pneumonia otherwise consider CHF * Laboratory data: WBC 11.1. Hemoglobin 15.5. Platelet count 277. Sodium 142. Potassium 3.3. BUN 37. Creatinine 1.32. Troponin 0.100. 0.096. * Current home cardiac medications include Norvasc 5 mg daily, aspirin 81 mg daily, hydrochlorothiazide 12.5 mg daily, and Zocor 20 mg at night * Most recent echocardiogram obtained in July 2019 revealed ejection fraction 50%, mild tricuspid regurgitation, mild mitral regurgitation REVIEW OF SYSTEMS: At the time of my exam: CONSTITUTIONAL: Denies fever or chills. HEENT: Denies blurred vision, vision changes, or eye pain. Denies hemoptysis CARDIOVASCULAR: Denies chest pain. Denies orthopnea. Denies PND. Denies palpitations RESPIRATORY: Denies shortness of breath. GASTROINTESTINAL: Denies abdominal pain. Denies nausea or vomiting. HEMATOLOGIC: Denies bleeding disorders. GENITOURINARY: Denies any blood in urine. SKIN: Denies pruitis. Denies rash. PHYSICAL EXAM: VITAL SIGNS: Reviewed. GENERAL: Well-developed in no acute distress. HEENT: Head is normocephalic. Pupils are equal, round. Sclerae anicteric. Mucous membranes of the mouth are moist. Neck supple. No JVD or thyromegaly LUNGS: Respirations even and unlabored. Lungs essentially clear to auscultation bilaterally. HEART: Irregular rate and rhythm. S1 and S2 heard. ABDOMEN: Soft. Nondistended. Nontender. EXTREMITIES: Normal range of motion. No clubbing or cyanosis. Peripheral pulses intact. 1+ bilateral lower extremity edema NEUROLOGIC: Awake and alert. ASSESSMENT: Generalized weakness New onset atrial fibrillation with RVR Multifocal atrial tachycardia Abnormal troponins, may be secondary to tachycardia, ACS unlikely Hypertension Hyperlipidemia Diabetes PLAN: Obtain 2D echo to assess cardiac structure and function Discontinue IV heparin. Discontinue aspirin. Begin Eliquis 5mg BID Begin metoprolol tartrate 25 mg 3 times a day Begin losartan 25 mg daily Begin atorvastatin 40 mg at night Continue IV Cardizem. Wean as tolerated. Further recommendations pending patient's course Nurse practitioner note has been reviewed by physician. Signing provider agrees with the documented findings, assessment, and plan of care. Past Medical History Past Medical History: Heart Failure, Diabetes Mellitus, Hyperlipidemia, Hypertension, Pneumonia, Rheumatoid Arthritis (RA) Additional Past Medical History / Comment(s): tremors, renal lithiasis, hemorrh oids(sx done), "has had problems w/low magnesium.anemia. per posue pt had past cancer "uterine or cervical-had hysterectomy". it was previously charted that pt had hx of ra and cfh spouse not able to verify this, History of Any Multi-Drug Resistant Organisms: ESBL Date of last positivie culture/infection: 05/11/18 MDRO Source:: ESBL URINE Past Surgical History: Appendectomy, Hysterectomy, Orthopedic Surgery, Tonsillectomy Additional Past Surgical History / Comment(s): rt total knee repalcement, cataracts, hemmorroidectomy, colonoscopy Past Anesthesia/Blood Transfusion Reactions: No Reported Reaction Additional Past Anesthesia/Blood Transfusion Reaction / Comment(s): per psouse- pt never receieved any blood Past Psychological History: No Psychological Hx Reported Past Alcohol Use History: None Reported Past Drug Use History: None Reported - Past Family History Mother Family Medical History: Diabetes Mellitus Father Additional Family Medical History / Comment(s): brain anuerysm Medications and Allergies Home Medications Medication Instructions Recorded Confirmed Type Aspirin 81 mg PO DAILY 07/18/14 07/23/22 History Simvastatin [Zocor] 20 mg PO HS 07/18/14 07/23/22 History glipiZIDE [Glipizide] 10 mg PO AC-BRKFST 07/18/14 07/23/22 History Insulin Glargine,Hum.rec.anlog 55 unit SQ HS 09/30/17 07/23/22 History [Lantus Solostar Pen] Clotrimazole/Betameth Cream 1 applic TOPICAL BID 11/10/21 07/23/22 History [Lotrisone] Cyanocobalamin (Vitamin B-12) 2,500 mcg PO DAILY 11/10/21 07/23/22 History [Vitamin B-12] Docusate [Colace] 100 mg PO BID 11/10/21 07/23/22 History Ferrous Sulfate [Iron (65 MG 325 mg PO Q2D 11/10/21 07/23/22 History Elemental)] amLODIPine [Norvasc] 5 mg PO DAILY #30 tab 11/13/21 07/23/22 Rx Bethanechol Chloride [Urecholine] 5 mg PO DAILY 07/23/22 07/23/22 History Calcium Carbonate [Calcium] 1,200 mg PO HS 07/23/22 07/23/22 History Potassium Chloride [Klor-Con M20] 20 meq PO DAILY 07/23/22 07/23/22 History Primidone 25 mg PO QAM 07/23/22 07/23/22 History Primidone 50 mg PO HS 07/23/22 07/23/22 History allopurinoL [Zyloprim] 300 mg PO DAILY 07/23/22 07/23/22 History busPIRone HCl [Buspar] 5 mg PO DAILY 07/23/22 07/23/22 History glipiZIDE [Glucotrol] 5 mg PO AC-SUPPER 07/23/22 07/23/22 History hydroCHLOROthiazide [Hydrodiuril] 12.5 mg PO DAILY 07/23/22 07/23/22 History polyethylene glycoL 3350 [Miralax] 17 gm PO DAILY PRN 07/23/22 07/23/22 History Allergies Allergy/AdvReac Type Severity Reaction Status Date / Time gabapentin AdvReac Hallucinati Verified 07/23/22 11:27 ons Physical Exam Vitals: Vital Signs Temp Pulse Resp BP Pulse Ox 07/23/22 09:55 103 H 18 128/69 98 07/23/22 09:06 97 F L 110 H 18 165/88 95 Intake and Output 07/22/22 07/23/22 07/23/22 22:59 06:59 14:59 Other: Weight 96.162 kg Results 07/23/22 09:37 07/23/22 09:37 Cardiac Enzymes 07/23/22 07/23/22 07/23/22 Range/Units 09:37 09:37 11:05 AST 25 (14-36) U/L Troponin I 0.100 H* 0.096 H* (0.000-0.034) ng/mL Coagulation 07/23/22 Range/Units 09:37 PT 10.6 (9.0-12.0) sec APTT 22.0 (22.0-30.0) sec CBC 07/23/22 Range/Units 09:37 WBC 11.1 H (3.8-10.6) k/uL RBC 5.09 (3.80-5.40) m/uL Hgb 15.5 (11.4-16.0) gm/dL Hct 47.4 H (34.0-46.0) % Plt Count 277 (150-450) k/uL Comprehensive Metabolic Panel 07/23/22 Range/Units 09:37 Sodium 142 (137-145) mmol/L Potassium 3.3 L (3.5-5.1) mmol/L Chloride 101 (98-107) mmol/L Carbon Dioxide 34 H (22-30) mmol/L BUN 37 H (7-17) mg/dL Creatinine 1.32 H (0.52-1.04) mg/dL Glucose 74 (74-99) mg/dL Calcium 10.0 (8.4-10.2) mg/dL AST 25 (14-36) U/L ALT 25 (4-34) U/L Alkaline Phosphatase 68 (38-126) U/L Total Protein 6.7 (6.3-8.2) g/dL Albumin 3.9 (3.5-5.0) g/dL Current Medications Generic Name Dose Route Start Last Admin Trade Name Freq PRN Reason Stop Dose Admin Apixaban 5 mg 07/23/22 12:15 Apixaban 5 Mg Tab PO BID [facility] Protocol Atorvastatin Calcium 40 mg 07/23/22 21:00 Atorvastatin 40 Mg Tab PO HS [facility] Famotidine 10 mg 07/23/22 21:00 Famotidine 20 Mg/2 Ml Vial IV Q12HR [facility] Diltiazem HCl 125 mg/ Sodium 125 mls @ 5 mls/hr 07/23/22 10:00 07/23/22 09:53 Chloride IV 5 mg/hr .Q24H ROMERO 5 mls/hr Administration 5 MG/HR Ceftriaxone Sodium 1 gm/ 50 mls @ 100 mls/hr 07/23/22 11:00 Sodium Chloride IVPB Q24HR [facility] Protocol Losartan Potassium 25 mg 07/24/22 09:00 Losartan 25 Mg Tab PO DAILY [facility] Metoprolol Tartrate 25 mg 07/23/22 12:15 Metoprolol Tartrate 25 Mg Tab PO TID [facility] Nitroglycerin 0.4 mg 07/23/22 10:20 Nitroglycerin Sl Tabs 0.4 Mg Tab SUBLINGUAL Q5M PRN Chest Pain Intake and Output 07/22/22 07/23/22 07/23/22 22:59 06:59 14:59 Other: Weight 96.162 kg Patient Weight 07/24/22 06:59 Weight 96.162 kg 07/23/22 09:37 07/23/22 09:37
--- NOTE | 2022-07-23 12:37 | P.HPIM ---
History of Present Illness This is a pleasant 76 years old female with multiple medical problems as below. She is a patient of Dr. Lehman. She does not follow up with program admin regularly , she saw Dr. Morris about 22 years ago. Presents because of generalized weakness at home. Information obtained from the patient and family doctor at at bedside. Patient states that she's been feeling sick for 2 weeks in sense of cough and sinusitis and cold symptoms She called her PCP office who prescribed her antibiotics and steroids 2 days ago, she had virtual encounter with Dr. Lehman as she states. However patient was not feeling well and did not improve much. Usually she sleeps in a chair. This morning she was trying to get up and going to the bathroom using her walker when her legs give away and she was about to fall but her helped her keep up through the belt around her and she was able to make it to the toilet seat and sit down, Patient denies chest pain. No abdominal pain or vomiting or diarrhea. She is not complaining of from dysuria or increased frequency but she can tell if she has UTI and she thinks she might have UTI now but she is not sure. She denies headache or dizziness. No specific weakness or numbness. However on exam her right leg looks weaker than the left, as per patient and daughter this is more since she had a fractured hip last November. Patient denies headache or dizziness, no vision problems, no new slurred speech, patient and family at bedside, from speech at baseline. No new weakness or numbness. She has numbness in both fingers bilaterally but this is unlikely due to stroke She denies smoking alcohol or illicit drugs Vitals showing tachycardia around 110 patient is afebrile. She has mild leukocytosis at 11.1, however she has frequent mild leukocytosis in the past. Risks of CBC, INR is unremarkable. Potassium is low at 3.3, creatinine elevated 1.3 which is at baseline 1.3-2.3 Troponins month elevated 0.1. Liver enzymes are unremarkable as well as bilirubin. Chest x-ray: COPD with bilateral lower lobe infiltrates and small effusion correlate for pneumonia otherwise consider CHF EKG showing atrial fibrillation with RVR at 117 Patient was started on aspirin, IV Lasix 10 mg twice a day and Cardizem drip and heparin drip Review of Systems GENERAL: The patient is alert and oriented x3, not in any acute distress. Well developed, well nourished. HEENT: Pupils are round and equally reacting to light. EOMI. No scleral icterus. No conjunctival pallor. Normocephalic, atraumatic. No pharyngeal erythema. No thyromegaly. CARDIOVASCULAR: S1 and S2 present. No murmurs, rubs, or gallops. PULMONARY: Chest is clear to auscultation, no wheezing or crackles. ABDOMEN: Soft, nontender, nondistended, normoactive bowel sounds. No palpable o rganomegaly. MUSCULOSKELETAL: No joint swelling or deformity. EXTREMITIES: No cyanosis, clubbing, or pedal edema. NEUROLOGICAL: Gross neurological examination did not reveal any focal deficits. SKIN: No rashes. no petechiae. Past Medical History Past Medical History: Heart Failure, Diabetes Mellitus, Hyperlipidemia, Hypertension, Pneumonia, Rheumatoid Arthritis (RA) Additional Past Medical History / Comment(s): tremors, renal lithiasis, hemorrhoids(sx done), "has had problems w/low magnesium.anemia. per posue pt had past cancer "uterine or cervical-had hysterectomy". it was previously charted that pt had hx of ra and cfh spouse not able to verify this, History of Any Multi-Drug Resistant Organisms: ESBL Date of last positivie culture/infection: 05/11/18 MDRO Source:: ESBL URINE Past Surgical History: Appendectomy, Hysterectomy, Orthopedic Surgery, Tonsillectomy Additional Past Surgical History / Comment(s): rt total knee repalcement, cataracts, hemmorroidectomy, colonoscopy Past Anesthesia/Blood Transfusion Reactions: No Reported Reaction Additional Past Anesthesia/Blood Transfusion Reaction / Comment(s): per psouse- pt never receieved any blood Past Psychological History: No Psychological Hx Reported Past Alcohol Use History: None Reported Past Drug Use History: None Reported - Past Family History Mother Family Medical History: Diabetes Mellitus Father Additional Family Medical History / Comment(s): brain anuerysm Medications and Allergies Home Medications Medication Instructions Recorded Confirmed Type Aspirin 81 mg PO DAILY 07/18/14 07/23/22 History Simvastatin [Zocor] 20 mg PO HS 07/18/14 07/23/22 History glipiZIDE [Glipizide] 10 mg PO AC-BRKFST 07/18/14 07/23/22 History Insulin Glargine,Hum.rec.anlog 55 unit SQ HS 09/30/17 07/23/22 History [Lantus Solostar Pen] Clotrimazole/Betameth Cream 1 applic TOPICAL BID 11/10/21 07/23/22 History [Lotrisone] Cyanocobalamin (Vitamin B-12) 2,500 mcg PO DAILY 11/10/21 07/23/22 History [Vitamin B-12] Docusate [Colace] 100 mg PO BID 11/10/21 07/23/22 History Ferrous Sulfate [Iron (65 MG 325 mg PO Q2D 11/10/21 07/23/22 History Elemental)] amLODIPine [Norvasc] 5 mg PO DAILY #30 tab 11/13/21 07/23/22 Rx Bethanechol Chloride [Urecholine] 5 mg PO DAILY 07/23/22 07/23/22 History Calcium Carbonate [Calcium] 1,200 mg PO HS 07/23/22 07/23/22 History Potassium Chloride [Klor-Con M20] 20 meq PO DAILY 07/23/22 07/23/22 History Primidone 25 mg PO QAM 07/23/22 07/23/22 History Primidone 50 mg PO HS 07/23/22 07/23/22 History allopurinoL [Zyloprim] 300 mg PO DAILY 07/23/22 07/23/22 History busPIRone HCl [Buspar] 5 mg PO DAILY 07/23/22 07/23/22 History glipiZIDE [Glucotrol] 5 mg PO AC-SUPPER 07/23/22 07/23/22 History hydroCHLOROthiazide [Hydrodiuril] 12.5 mg PO DAILY 07/23/22 07/23/22 History polyethylene glycoL 3350 [Miralax] 17 gm PO DAILY PRN 07/23/22 07/23/22 History Allergies Allergy/AdvReac Type Severity Reaction Status Date / Time gabapentin AdvReac Hallucinati Verified 07/23/22 11:27 ons Physical Exam Vitals: Vital Signs Temp Pulse Resp BP Pulse Ox 07/23/22 09:55 103 H 18 128/69 98 07/23/22 09:06 97 F L 110 H 18 165/88 95 Intake and Output 11/17/22 11/18/22 11/18/22 22:59 06:59 14:59 Other: Weight 96.162 kg -GENERAL: The patient is alert and oriented x3, not in any acute distress. Well developed, well nourished. Generally weak HEENT: Pupils are round and equally reacting to light. EOMI. No scleral icterus. No conjunctival pallor. Normocephalic, atraumatic. No pharyngeal erythema. No thyromegaly. CARDIOVASCULAR: S1 and S2 present. No murmurs, rubs, or gallops. -PULMONARY: Chest is clear to auscultation, no wheezing or crackles. Mild crackles in the bases. Mildly tachypneic ABDOMEN: Soft, nontender, nondistended, normoactive bowel sounds. No palpable organomegaly. MUSCULOSKELETAL: No joint swelling or deformity. -EXTREMITIES: No cyanosis, clubbing,. 1+ bilateral pitting leg edema. -NEUROLOGICAL: Gross neurological examination did not reveal any focal deficits. Cranial nerves are 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. Strength is 5/5 in all extremities except right leg is 4+/5 which could be due to hip fracture this year (chronic), meningeal signs are absent SKIN: No rashes. no petechiae. Results CBC & Chem 7: 07/23/22 09:37 07/23/22 09:37 Labs: Abnormal Lab Results - Last 24 Hours (Table) 07/23/22 07/23/22 07/23/22 Range/Units 09:37 09:37 09:37 WBC 11.1 H (3.8-10.6) k/uL Hct 47.4 H (34.0-46.0) % Neutrophils # 8.2 H (1.3-7.7) k/uL Potassium 3.3 L (3.5-5.1) mmol/L Carbon Dioxide 34 H (22-30) mmol/L BUN 37 H (7-17) mg/dL Creatinine 1.32 H (0.52-1.04) mg/dL Troponin I 0.100 H* (0.000-0.034) ng/mL Assessment and Plan Assessment: Gregoria ramirez with RVR, Was not on anticoagulation at home Possible mild CHF exacerbation Upper respiratory symptoms for 2 weeks, could be viral illness versus part of CHF exacerbation Generalized weakness Chronic right leg weakness, it happens after heparin fracture earlier this year per patient and daughter at bedside. Rule out stroke Chronic kidney disease stage IV Diabetes mellitus Hypertension History of rheumatoid arthritis History of UTI with ESBL bacteremia History of ataxia Plan: Patient already started on heparin drip and IV Lasix. Cardiology team also consulted Check proBNP and calcitonin check urinalysis and bladder scan She is status post Lasix 120 mg Cardiology consult regarding management of A. fib and possible CHF we will check CT of the brain, If negative then we will order MRI of the brain. If any of these images suspicious for stroke and will consult neurology service. 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 Continue same treatment. Continue with symptomatic treatment. Resume home medication. Monitor labs and vitals. DVT and GI prophylaxis. Further recommendations as per clinical course of the patient DVT prophylaxis: program admin start the patient on anticoagulation Eliquis GI Prophylaxis: Pepcid PT/OT: Pending Prognosis is guarded.
[2022-07-23] MEDS: METOPROLOL TARTRATE 25 MG TAB PO SCH ×3 (14:35→20:09)
[2022-07-23] MEDS: APIXABAN 5 MG TAB PO SCH ×2 (14:35→20:09)
--- NOTE | 2022-07-23 15:52 | CT ---
EXAMINATION TYPE: CT brain wo con DATE OF EXAM: 07/23/2022 COMPARISON: 11/19/2021 HISTORY: 1115.4 CT DLP: weakness mGycm Unenhanced CT of the brain was performed. The ventricles, basal cisterns and sulci overlying the cerebral convexities demonstrate mild enlargem ent. There is no evidence for intracranial hemorrhage or sulcal effacement. There is decreased attenuation about the periventricular white matter and deep white matter of both c erebral hemispheres, compatible with chronic small vessel ischemia. Differential diagnosis does inclu de demyelination. No mass effects are seen.No midline shift. Osseous calvarium is intact. If symptoms persist consider MRI. IMPRESSION: 1. Age related atrophic and chronic small vessel ischemic change without acute intracranial process s een at this time.
[2022-07-23 16:16] LABS: Appearance,Urine Cloudy (Clear); Bacteria,Urine Moderate /hpf; Bilirubin,Urine Negative (Negative); Blood,Urine Trace (Negative); Color,Urine Light Yellow; Glucose,Urine (UA) Negative (Negative); Ketones,Urine Negative (Negative); Leukocyte Esterase,Urine Large (Negative); Mucus,Urine Rare /hpf; Nitrite,Urine Negative (Negative); Protein,Urine 1+ (Negative); RBC,Urine 8 /hpf (0-5); Specific Gravity,Urine 1.019 (1.001-1.035); Squamous Epithelial Cell,Urine 44 /hpf (0-4); Urobilinogen,Urine <2.0 mg/dL (<2.0); WBC,Urine 85 /hpf (0-5)
[2022-07-23 16:32] LABS: Glucose,Whole Blood 184 mg/dL (70-110)
[2022-07-23] MEDS ORDERED: LORazepam 1 MG/0.5 ML VIAL IV PRN (17:04)
[2022-07-23] MEDS ORDERED: Potassium Replacement Protocol 1 EACH MISC MISCELLANE PRN (17:05)
[2022-07-23] MEDS: HYDROcodone/APAP 5-325MG 1 EACH TAB PO PRN (18:19)
[2022-07-23] MEDS: POTASSIUM CHLORIDE ER 20 MEQ TAB.ER PO SCH ×2 (18:20→20:08)
[2022-07-23] MEDS ORDERED: LORazepam 2 MG/ML INJ IV PRN (19:13)
[2022-07-23 20:01] LABS: Glucose,Whole Blood 281 mg/dL (70-110)
[2022-07-23] MEDS: ATORVASTATIN 40 MG TAB PO SCH (20:09)
[2022-07-23] MEDS ORDERED: FUROSEMIDE 10 MG/ML 2 ML VIAL IV SCH (21:00)
[2022-07-23] MEDS ORDERED: BUDESONIDE 0.5 MG/2 ML NEBU INHALATION SCH (21:00)
[2022-07-23] MEDS ORDERED: FAMOTIDINE 20 MG/2 ML VIAL IV SCH (21:00)
[2022-07-23] MEDS: IPRATROPIUM-ALBUTEROL 3 ML NEB INHALATION PRN (21:01)
[2022-07-23] MEDS: ALPRAZolam 0.5 MG TAB PO PRN (21:14)
[2022-07-23] MEDS: INSULIN ASPART (NovoLOG) 100 UNIT/ML VIAL SQ SCH (21:14)
[2022-07-23] MEDS: INSULIN DETEMIR (LEVEMIR) 100 UNIT/ML SYR SQ SCH (21:15)
[2022-07-23] MEDS ORDERED: FUROSEMIDE 10 MG/ML 2 ML VIAL IV STA (22:57)
[2022-07-23 23:06] LABS: Glucose,Whole Blood 276 mg/dL (70-110)
[2022-07-23 23:20] LABS: ABG Base Excess 5.7 mmol/L; ABG HCO3 31 mmol/L (21-25); ABG Oxygen Saturation 97.9 % (94-97); ABG PCO2 52 mmHg (35-45); ABG PH 7.38 (7.35-7.45); ABG PO2 98 mmHg (83-108); ABG TCO2 32 mmol/L (19-24); Allen Test Performed? Yes
--- NOTE | 2022-07-24 00:09 | XR ---
EXAMINATION TYPE: XR chest 1V portable DATE OF EXAM: 07/24/2022 COMPARISON: 07/23/2022 HISTORY: Hypoxemia TECHNIQUE: Single view FINDINGS: Heart is enlarged. There is pulmonary interstitial and airspace edema. There are chest lead s. There is blunting of the costophrenic angles. IMPRESSION: There is pulmonary edema and bilateral pleural effusions which are significantly increase d compared to exam this morning.. This is consistent with congestive heart failure.
[2022-07-24] MEDS: ALPRAZolam 0.5 MG TAB PO PRN ×2 (05:17→23:29)
[2022-07-24 06:05] LABS: Glucose,Whole Blood 176 mg/dL (70-110)
[2022-07-24] MEDS: INSULIN ASPART (NovoLOG) 100 UNIT/ML VIAL SQ SCH ×4 (06:30→20:57)
[2022-07-24] MEDS ORDERED: BUDESONIDE 0.5 MG/2 ML NEBU INHALATION SCH (08:00)
[2022-07-24] MEDS: IPRATROPIUM-ALBUTEROL 3 ML NEB INHALATION PRN (08:42)
[2022-07-24] MEDS ORDERED: ASPIRIN 325 MG TAB PO SCH (09:00)
[2022-07-24] MEDS: LOSARTAN 25 MG TAB PO SCH (09:33)
[2022-07-24] MEDS: METOPROLOL TARTRATE 25 MG TAB PO SCH ×3 (09:33→20:03)
[2022-07-24] MEDS: APIXABAN 5 MG TAB PO SCH ×2 (09:33→20:03)
[2022-07-24] MEDS: FAMOTIDINE 20 MG TAB PO SCH (09:33)
[2022-07-24] MEDS: hydroCHLOROthiazide 12.5 MG CAP PO SCH (09:33)
[2022-07-24 10:09] LABS: Calcium 8.8 mg/dL (8.4-10.2); Potassium 3.8 mmol/L (3.5-5.1)
[2022-07-24 11:30] LABS: Glucose,Whole Blood 422 mg/dL (70-110)
[2022-07-24] MEDS ORDERED: FUROSEMIDE 10 MG/ML 4 ML VIAL IV STA (11:33)
--- NOTE | 2022-07-24 14:05 | CA ---
Transthoracic Echo Report Name: Luisa Umaña Age: 76 Gender: F : 1945 Exam Date: 07/23/2022 13:40 Exam Location: [place] [facility] Ht (in): 68 Wt (lb): 212 Ordering Physician: Liyah Khalil Attending/Referring Phys: [id number], Simran Server Administrator Charlee Cross, JOSE MIGUEL Procedure CPT: Indications: LV function Cardiac Hx: Technical Quality: Good Contrast 1: Total Dose (mL): Contrast 2: Total Dose (mL): MEASUREMENTS (Male / Female) Normal Values 2D ECHO LV Diastolic Diameter PLAX 4.9 cm 4.2 - 5.9 / 3.9 - 5.3 cm LV Systolic Diameter PLAX 4.1 cm IVS Diastolic Thickness 1.4 cm 0.6 - 1.0 / 0.6 - 0.9 cm LVPW Diastolic Thickness 1.3 cm 0.6 - 1.0 / 0.6 - 0.9 cm LV Relative Wall Thickness 0.5 RV Internal Dim ED PLAX 2.7 cm LA Systolic Diameter LX 4.9 cm 3.0 - 4.0 / 2.7 - 3.8 cm LA Volume 66.1 cm??? 18 - 58 / 22 - 52 cm??? M-MODE Aortic Root Diameter MM 3.3 cm MV E Point Septal Separation 1.6 cm AV Cusp Separation MM 2.2 cm DOPPLER AV Peak Velocity 120.0 cm/s AV Peak Gradient 5.8 mmHg MV Area PHT 6.3 cm??? MV Deceleration Time 109.8 ms TR Peak Velocity 347.2 cm/s TR Peak Gradient 48.2 mmHg Right Ventricular Systolic Press 52.5 mmHg FINDINGS Left Ventricle Left ventricular ejection fraction is estimated at 20-25 %. Left ventricular cavity size normal. Moderate concentric left ventricular hypertrophy. Right Ventricle Normal right ventricular size. Moderate pulmonary hypertension. Right Atrium Normal right atrial size. Left Atrium Severely increased left atrial diameter. Moderately increased left atrial volume. Mildly increased left atrial area. No evidence for an atrial septal defect. Mitral Valve Structurally normal mitral valve. Mild mitral regurgitation. Aortic Valve Trileaflet aortic valve. Focal thickening of the aortic valve cusps. Tricuspid Valve Tricuspid valve not well visualized. Mild tricuspid regurgitation. Pulmonic Valve Structurally normal pulmonic valve. Trace pulmonic regurgitation. Pericardium Normal pericardium. No pericardial effusion. Aorta Normal size aortic root and proximal ascending aorta. CONCLUSIONS Severe LV systolic dysfunction Moderate pulmonary hypertension Previewed by: Dr. Johan Gunderson MD (Electronically Signed) Final Date: 24 July 2022 14:03
--- NOTE | 2022-07-24 15:07 | P.CNPUL ---
History of Present Illness Consult date: 07/24/22 Requesting physician: Evelio Duckworth Reason for consult: dyspnea, hypoxemia, pleural effusion Chief complaint: Shortness of breath. History of present illness: Pulmonary/critical care consult dated 07/24/2022. 72-year-old female that we see today in room 375. The patient is currently on 5 L of oxygen. Not receiving any IV fluids. The patient's N-terminal proBNP was elevated, as was her troponin level. She apparently was admitted through the emergency room with a diagnosis of CHF, and atrial fibrillation. According to the ER dara, she presented with weakness, and inability to stand. She apparently fell at home. She was brought into the emergency room where she was evaluated. She was not eating or drinking properly. She apparently denied any fever or chills. Her admission diagnoses included new-onset atrial fibrillation, pulmonary edema, and rapid ventricular response. White count 11.1, hemoglobin 15.5, hematocrit 37.4, and platelet count 277,000. D-dimer was 0.76. Blood gases showed a pO2 of 98, pCO2 52, and a pH is 7.38. Sodium 144, potassium 3.8, chlorides 104, CO2 33, BUN 37, and creatinine 1.58. Troponins were 0.104 and 0.127. N-terminal proBNP was 4540. TSH was normal. A suggestive of a urinary tract infection. Her chest x-ray done on July 24 shows evidence of fulminant heart failure. Review of Systems REVIEW OF SYSTEMS: CONSTITUTIONAL: Weakness. NEUROLOGIC: [ Negative.] HEENT: [ Negative.] CARDIAC: [Negative.] PULMONARY: Shortness of breath. GI: Poor oral intake. : [Negative.] RHEUMATOLOGIC: [ Negative.] IMMUNOLOGIC: [ Negative.] ENDOCRINE: [Negative. ] DERMATOLOGIC: [Negative.] Past Medical History Past Medical History: Heart Failure, Diabetes Mellitus, Hyperlipidemia, Hypertension, Pneumonia, Rheumatoid Arthritis (RA) Additional Past Medical History / Comment(s): tremors, renal lithiasis, hemorrhoids(sx done), "has had problems w/low magnesium.anemia. per posue pt had past cancer "uterine or cervical-had hysterectomy". it was previously charted that pt had hx of ra and cfh spouse not able to verify this, History of Any Multi-Drug Resistant Organisms: ESBL Date of last positivie culture/infection: 05/11/18 MDRO Source:: ESBL URINE Past Surgical History: Appendectomy, Hysterectomy, Orthopedic Surgery, Tonsillectomy Additional Past Surgical History / Comment(s): rt total knee repalcement, cataracts, hemmorroidectomy, colonoscopy Past Anesthesia/Blood Transfusion Reactions: No Reported Reaction Additional Past Anesthesia/Blood Transfusion Reaction / Comment(s): per psouse- pt never receieved any blood Past Psychological History: No Psychological Hx Reported Past Alcohol Use History: None Reported Past Drug Use History: None Reported - Past Family History Mother Family Medical History: Diabetes Mellitus Father Additional Family Medical History / Comment(s): brain anuerysm Medications and Allergies Home Medications Medication Instructions Recorded Confirmed Type Aspirin 81 mg PO DAILY 07/18/14 07/23/22 History Simvastatin [Zocor] 20 mg PO HS 07/18/14 07/23/22 History glipiZIDE [Glipizide] 10 mg PO AC-BRKFST 07/18/14 07/23/22 History Insulin Glargine,Hum.rec.anlog 55 unit SQ HS 09/30/17 07/23/22 History [Lantus Solostar Pen] Clotrimazole/Betameth Cream 1 applic TOPICAL BID 11/10/21 07/23/22 History [Lotrisone] Cyanocobalamin (Vitamin B-12) 2,500 mcg PO DAILY 11/10/21 07/23/22 History [Vitamin B-12] Docusate [Colace] 100 mg PO BID 11/10/21 07/23/22 History Ferrous Sulfate [Iron (65 MG 325 mg PO Q2D 11/10/21 07/23/22 History Elemental)] amLODIPine [Norvasc] 5 mg PO DAILY #30 tab 11/13/21 07/23/22 Rx Bethanechol Chloride [Urecholine] 5 mg PO DAILY 07/23/22 07/23/22 History Calcium Carbonate [Calcium] 1,200 mg PO HS 07/23/22 07/23/22 History Potassium Chloride [Klor-Con M20] 20 meq PO DAILY 07/23/22 07/23/22 History Primidone 25 mg PO QAM 07/23/22 07/23/22 History Primidone 50 mg PO HS 07/23/22 07/23/22 History allopurinoL [Zyloprim] 300 mg PO DAILY 07/23/22 07/23/22 History busPIRone HCl [Buspar] 5 mg PO DAILY 07/23/22 07/23/22 History glipiZIDE [Glucotrol] 5 mg PO AC-SUPPER 07/23/22 07/23/22 History hydroCHLOROthiazide [Hydrodiuril] 12.5 mg PO DAILY 07/23/22 07/23/22 History polyethylene glycoL 3350 [Miralax] 17 gm PO DAILY PRN 07/23/22 07/23/22 History Allergies Allergy/AdvReac Type Severity Reaction Status Date / Time gabapentin AdvReac Hallucinati Verified 07/23/22 11:27 ons Physical Exam Osteopathic Statement: *. No significant issues noted on an osteopathic st ructural exam other than those noted in the History and Physical/Consult. Vitals: Vital Signs Temp Pulse Pulse Resp BP BP Pulse Ox 07/24/22 08:51 90 16 07/24/22 08:42 89 16 96 07/24/22 08:10 98.1 F 89 30 H 144/80 96 07/24/22 06:36 40 H 07/24/22 04:00 84 26 H 106/68 96 07/24/22 02:00 22 07/24/22 00:00 98.1 F 88 28 H 124/79 97 07/23/22 23:31 97 07/23/22 22:55 34 H 98 07/23/22 22:47 34 H 88 L 07/23/22 22:40 98.1 F 90 34 H 146/97 82 L 07/23/22 21:08 95 07/23/22 21:05 93 L 07/23/22 21:03 95 07/23/22 20:00 97.6 F 76 24 155/99 95 07/23/22 14:55 108 H 20 FiO2 07/24/22 08:51 07/24/22 08:42 50 07/24/22 08:10 07/24/22 06:36 07/24/22 04:00 07/24/22 02:00 07/24/22 00:00 07/23/22 23:31 50 07/23/22 22:55 07/23/22 22:47 07/23/22 22:40 07/23/22 21:08 07/23/22 21:05 07/23/22 21:03 07/23/22 20:00 07/23/22 14:55 Intake and Output 07/23/22 07/24/22 07/24/22 22:59 06:59 14:59 Intake Total 154.5 120 180 Output Total 550 500 Balance -395.5 -380 180 Intake: Intake, IV Titration 36.5 Amount Diltiazem 125 mg In 36.5 Sodium Chloride 0.9% 100 ml @ 5 MG/HR 5 mls/hr IV .Q24H [facility] Rx#:[id number] Oral 118 120 180 Output: Urine 550 500 Straight 500 Other: Voiding Method External Catheter External Catheter Weight 96.5 kg No acute distress, nasal O2 in place. Patient very lethargic and somnolent. HEENT examination is grossly unremarkable. Neck supple. Full range of motion. No adenopathy thyromegaly or neck vein distention. Cardiovascular examination reveals regular rhythm rate. S1-S2 normal. No S3 or S4. No discernible murmur noted. Heart rate 90 bpm. Lungs reveal scattered bilateral rhonchi, and bilateral crackles. No wheezes. Breath sounds equal bilaterally. Saturations are 96%. Abdomen soft bowel sounds are heard. No masses or tenderness. Extremities are intact. No cyanosis clubbing or edema. Skin is without rash or lesion. Neurologic examination is brief but nonfocal. Results - Laboratory Findings CBC and BMP: 07/23/22 09:37 07/24/22 09:01 ABG ABG pH 7.38 (7.35-7.45) 07/23/22 23:17 ABG pCO2 52 mmHg (35-45) H 07/23/22 23:17 ABG pO2 98 mmHg (83-108) 07/23/22 23:17 ABG O2 Saturation 97.9 % (94-97) H 07/23/22 23:17 PT/INR, D-dimer PT 10.6 sec (9.0-12.0) 07/23/22 09:37 INR 1.0 (<1.2) 07/23/22 09:37 D-Dimer 0.76 mg/L FEU (<0.60) H 07/23/22 23:25 Abnormal lab findings: Abnormal Labs 07/23/22 07/23/22 07/23/22 09:37 09:37 09:37 WBC 11.1 H Hct 47.4 H Neutrophils # 8.2 H D-Dimer ABG pCO2 ABG HCO3 ABG Total CO2 ABG O2 Saturation Potassium 3.3 L Carbon Dioxide 34 H BUN 37 H Creatinine 1.32 H Glucose POC Glucose (mg/dL) Hemoglobin A1c Troponin I 0.100 H* Urine Appearance Urine Protein Urine Blood Ur Leukocyte Esterase Urine RBC Urine WBC Ur Squamous Epith Cells Urine Bacteria Urine Mucus 07/23/22 07/23/22 07/23/22 11:05 11:05 15:06 WBC Hct Neutrophils # D-Dimer ABG pCO2 ABG HCO3 ABG Total CO2 ABG O2 Saturation Potassium Carbon Dioxide BUN Creatinine Glucose POC Glucose (mg/dL) Hemoglobin A1c 8.9 H Troponin I 0.096 H* 0.104 H* Urine Appearance Urine Protein Urine Blood Ur Leukocyte Esterase Urine RBC Urine WBC Ur Squamous Epith Cells Urine Bacteria Urine Mucus 07/23/22 07/23/22 07/23/22 15:54 16:31 19:59 WBC Hct Neutrophils # D-Dimer ABG pCO2 ABG HCO3 ABG Total CO2 ABG O2 Saturation Potassium Carbon Dioxide BUN Creatinine Glucose POC Glucose (mg/dL) 184 H 281 H Hemoglobin A1c Troponin I Urine Appearance Cloudy H Urine Protein 1+ H Urine Blood Trace H Ur Leukocyte Esterase Large H Urine RBC 8 H Urine WBC 85 H Ur Squamous Epith Cells 44 H Urine Bacteria Moderate H Urine Mucus Rare H 07/23/22 07/23/22 07/23/22 23:01 23:17 23:25 WBC Hct Neutrophils # D-Dimer 0.76 H ABG pCO2 52 H ABG HCO3 31 H ABG Total CO2 32 H ABG O2 Saturation 97.9 H Potassium Carbon Dioxide BUN Creatinine Glucose POC Glucose (mg/dL) 276 H Hemoglobin A1c Troponin I Urine Appearance Urine Protein Urine Blood Ur Leukocyte Esterase Urine RBC Urine WBC Ur Squamous Epith Cells Urine Bacteria Urine Mucus 07/24/22 07/24/22 07/24/22 06:04 08:42 09:01 WBC Hct Neutrophils # D-Dimer ABG pCO2 ABG HCO3 ABG Total CO2 ABG O2 Saturation Potassium Carbon Dioxide 33 H BUN 37 H Creatinine 1.58 H Glucose 120 H POC Glucose (mg/dL) 176 H Hemoglobin A1c Troponin I 0.127 H* Urine Appearance Urine Protein Urine Blood Ur Leukocyte Esterase Urine RBC Urine WBC Ur Squamous Epith Cells Urine Bacteria Urine Mucus 07/24/22 11:28 WBC Hct Neutrophils # D-Dimer ABG pCO2 ABG HCO3 ABG Total CO2 ABG O2 Saturation Potassium Carbon Dioxide BUN Creatinine Glucose POC Glucose (mg/dL) 422 H Hemoglobin A1c Troponin I Urine Appearance Urine Protein Urine Blood Ur Leukocyte Esterase Urine RBC Urine WBC Ur Squamous Epith Cells Urine Bacteria Urine Mucus - Diagnostic Findings Chest x-ray: image reviewed Assessment and Plan Assessment: New onset atrial fibrillation, with RVR, and resultant congestive heart failure. History of congestive heart failure. History of diabetes mellitus. History of hyperlipidemia. History of hypertension. History of rheumatoid arthritis. History of kidney stones. Plan: Plan dated 07/24/2022. Updrafts were discontinued. The patient gets Lasix 40 mg IV push times one. Her chest x-ray, labs, medications, all reviewed. The patient's currently on 5 L of nasal O2. She's not receiving any IV fluids. Brain CT was negative for anything acute. We will continue to follow and make recommendations along the way. Prognosis is guarded. Time with Patient: Greater than 30
--- NOTE | 2022-07-24 15:27 | P.PN ---
Subjective Progress Note Date: 07/24/22 Patient is seen doing well today. She denies any increase shortness of breath or chest pain. She had an EKG done which showed severely decreased LV systolic dysfunction, and moderate pulmonary hypertension She remains in atrial fibrillation with a controlled ventricle rate on the monitor. Average 80 bpm She is on Eliquis for anticoagulation. Patient is on Lopressor 25 mg 3 times a day will continue Objective - Vital Signs Vital signs: Vital Signs Temp 98.1 F 07/24/22 08:10 Pulse 90 07/24/22 08:51 Resp 16 07/24/22 08:51 BP 144/80 07/24/22 08:10 Pulse Ox 96 07/24/22 08:42 FiO2 50 07/24/22 08:42 Intake & Output 07/23/22 07/24/22 07/24/22 18:59 06:59 18:59 Intake Total 154.5 120 180 Output Total 300 750 Balance -145.5 -630 180 Weight 96.162 kg 96.5 kg Intake: Intake, IV Titration 36.5 Amount Diltiazem 125 mg In 36.5 Sodium Chloride 0.9% 100 ml @ 5 MG/HR 5 mls/hr IV .Q24H [facility] Rx#:[id number] Oral 118 120 180 Output: Urine 300 750 Straight 500 Other: Voiding Method External Catheter External Catheter - Exam VITAL SIGNS: Reviewed. GENERAL: Well-developed in no acute distress. HEENT: Head is normocephalic. Pupils are equal, round. Sclerae anicteric. Mucous membranes of the mouth are moist. Neck supple. No JVD or thyromegaly LUNGS: Respirations even and unlabored. Lungs essentially clear to auscultation bilaterally. HEART: Irregular rate and rhythm. S1 and S2 heard. ABDOMEN: Soft. Nondistended. Nontender. EXTREMITIES: Normal range of motion. No clubbing or cyanosis. Peripheral pulses intact. 1+ bilateral lower extremity edema NEUROLOGIC: Awake and alert. - Labs CBC & Chem 7: 07/23/22 09:37 07/24/22 09:01 Labs: Abnormal Lab Results - Last 24 Hours (Table) 07/23/22 07/23/22 07/23/22 Range/Units 11:05 15:06 15:54 D-Dimer (<0.60) mg/L FEU ABG pCO2 (35-45) mmHg ABG HCO3 (21-25) mmol/L ABG Total CO2 (19-24) mmol/L ABG O2 Saturation (94-97) % Carbon Dioxide (22-30) mmol/L BUN (7-17) mg/dL Creatinine (0.52-1.04) mg/dL Glucose (74-99) mg/dL POC Glucose (mg/dL) (70-110) mg/dL Hemoglobin A1c 8.9 H (0.0-6.0) % Troponin I 0.104 H* (0.000-0.034) ng/mL Urine Appearance Cloudy H (Clear) Urine Protein 1+ H (Negative) Urine Blood Trace H (Negative) Ur Leukocyte Esterase Large H (Negative) Urine RBC 8 H (0-5) /hpf Urine WBC 85 H (0-5) /hpf Ur Squamous Epith Cells 44 H (0-4) /hpf Urine Bacteria Moderate H (None) /hpf Urine Mucus Rare H (None) /hpf 07/23/22 07/23/22 07/23/22 Range/Units 16:31 19:59 23:01 D-Dimer (<0.60) mg/L FEU ABG pCO2 (35-45) mmHg ABG HCO3 (21-25) mmol/L ABG Total CO2 (19-24) mmol/L ABG O2 Saturation (94-97) % Carbon Dioxide (22-30) mmol/L BUN (7-17) mg/dL Creatinine (0.52-1.04) mg/dL Glucose (74-99) mg/dL POC Glucose (mg/dL) 184 H 281 H 276 H (70-110) mg/dL Hemoglobin A1c (0.0-6.0) % Troponin I (0.000-0.034) ng/mL Urine Appearance (Clear) Urine Protein (Negative) Urine Blood (Negative) Ur Leukocyte Esterase (Negative) Urine RBC (0-5) /hpf Urine WBC (0-5) /hpf Ur Squamous Epith Cells (0-4) /hpf Urine Bacteria (None) /hpf Urine Mucus (None) /hpf 07/23/22 07/23/22 07/24/22 Range/Units 23:17 23:25 06:04 D-Dimer 0.76 H (<0.60) mg/L FEU ABG pCO2 52 H (35-45) mmHg ABG HCO3 31 H (21-25) mmol/L ABG Total CO2 32 H (19-24) mmol/L ABG O2 Saturation 97.9 H (94-97) % Carbon Dioxide (22-30) mmol/L BUN (7-17) mg/dL Creatinine (0.52-1.04) mg/dL Glucose (74-99) mg/dL POC Glucose (mg/dL) 176 H (70-110) mg/dL Hemoglobin A1c (0.0-6.0) % Troponin I (0.000-0.034) ng/mL Urine Appearance (Clear) Urine Protein (Negative) Urine Blood (Negative) Ur Leukocyte Esterase (Negative) Urine RBC (0-5) /hpf Urine WBC (0-5) /hpf Ur Squamous Epith Cells (0-4) /hpf Urine Bacteria (None) /hpf Urine Mucus (None) /hpf 07/24/22 07/24/22 07/24/22 Range/Units 08:42 09:01 11:28 D-Dimer (<0.60) mg/L FEU ABG pCO2 (35-45) mmHg ABG HCO3 (21-25) mmol/L ABG Total CO2 (19-24) mmol/L ABG O2 Saturation (94-97) % Carbon Dioxide 33 H (22-30) mmol/L BUN 37 H (7-17) mg/dL Creatinine 1.58 H (0.52-1.04) mg/dL Glucose 120 H (74-99) mg/dL POC Glucose (mg/dL) 422 H (70-110) mg/dL Hemoglobin A1c (0.0-6.0) % Troponin I 0.127 H* (0.000-0.034) ng/mL Urine Appearance (Clear) Urine Protein (Negative) Urine Blood (Negative) Ur Leukocyte Esterase (Negative) Urine RBC (0-5) /hpf Urine WBC (0-5) /hpf Ur Squamous Epith Cells (0-4) /hpf Urine Bacteria (None) /hpf Urine Mucus (None) /hpf Microbiology - Last 24 Hours (Table) 07/23/22 15:54 Urine Culture - Preliminary Urine,Voided Assessment and Plan Assessment: Generalized weakness New onset atrial fibrillation with RVR Multifocal atrial tachycardia Abnormal troponins, may be secondary to tachycardia, ACS unlikely Hypertension Hyperlipidemia Diabetes Plan: Continue with current cardiac medications Further recommendations based on clinical course The above impression and plan of care have been discussed and directed by the signing physician. Ana Rosa Hutton, nurse practitioner, acting as scribe for signing physician.
[2022-07-24 15:57] LABS: Chol/HDL Ratio 3.05 Ratio
[2022-07-24 16:28] LABS: Glucose,Whole Blood 134 mg/dL (70-110)
[2022-07-24] MEDS: FUROSEMIDE 10 MG/ML 2 ML VIAL IV SCH (20:03)
[2022-07-24] MEDS: HYDROcodone/APAP 5-325MG 1 EACH TAB PO PRN (20:03)
[2022-07-24] MEDS: ATORVASTATIN 40 MG TAB PO SCH (20:03)
[2022-07-24 20:52] LABS: Glucose,Whole Blood 174 mg/dL (70-110)
[2022-07-24] MEDS: INSULIN DETEMIR (LEVEMIR) 100 UNIT/ML SYR SQ SCH (20:57)
--- NOTE | 2022-07-25 03:07 | PN ---
PROGRESS NOTE DATE OF SERVICE: 07/24/2022 SUBJECTIVE: This 76-year-old woman who was admitted with atrial fibrillation with rapid ventricular rate who also had CHF acute exacerbation. The patient closely monitored. Cardiology following the patient closely. No fever. No cough. The patient also has leg weakness. OBJECTIVE: VITAL SIGNS: Pulse is 90, blood pressure is 140/80, respiration 30. HEENT: Conjunctivae normal. NECK: No JVD. CARDIOVASCULAR: S1, S2 regular. RESPIRATIONS: Breath sounds diminished at the bases. ABDOMEN: Soft. NERVOUS SYSTEM: Nonfocal. LABS: Troponin 0.127. Creatinine is 1.58. ASSESSMENT: 1. Atrial fibrillation with rapid ventricular rate. 2. Congestive heart failure with acute exacerbation. 3. Troponin 0.127, indeterminate. Rule out acute kiu-KZ-oegrrjt-elevation myocardial infarction. 4. Generalized weakness, chronic right leg weakness. 5. Chronic kidney disease. RECOMMENDATIONS: I recommend to continue current medications and symptomatic treatment. Closely follow with Cardiology and assess Pulmonology. Guarded prognosis. Further recommendations to follow. MMODL / IJN: [id number] /
[2022-07-25 06:10] LABS: Glucose,Whole Blood 128 mg/dL (70-110)
[2022-07-25] MEDS: INSULIN ASPART (NovoLOG) 100 UNIT/ML VIAL SQ SCH ×4 (06:13→20:05)
[2022-07-25] MEDS: hydroCHLOROthiazide 12.5 MG CAP PO SCH (08:59)
[2022-07-25] MEDS: METOPROLOL TARTRATE 25 MG TAB PO SCH ×3 (08:59→19:57)
[2022-07-25] MEDS: FUROSEMIDE 10 MG/ML 2 ML VIAL IV SCH ×2 (08:59→19:56)
[2022-07-25] MEDS: FAMOTIDINE 20 MG TAB PO SCH (08:59)
[2022-07-25] MEDS: LOSARTAN 25 MG TAB PO SCH (08:59)
[2022-07-25] MEDS: APIXABAN 5 MG TAB PO SCH ×2 (08:59→19:56)
[2022-07-25 11:34] LABS: Glucose,Whole Blood 133 mg/dL (70-110)
--- NOTE | 2022-07-25 13:07 | P.PN ---
Subjective Progress Note Date: 07/25/22 Patient is seen today resting comfortably in bed she is doing well with no signs of acute distress. She is sinus rhythm on the monitor. Her echocardiogram shows a severely decreased LV dysfunction with an EF of 20-25% and moderate pulmonary hypertension Vital signs remained stable She is on Eliquis for anticoagulation. Will continue current dose of IV Lasix and check kidney function. Objective - Vital Signs Vital signs: Vital Signs Temp 98.1 F 07/25/22 12:00 Pulse 82 07/25/22 12:00 Resp 21 07/25/22 12:00 BP 107/63 07/25/22 12:00 Pulse Ox 98 07/25/22 12:00 FiO2 50 07/24/22 08:42 Intake & Output 07/24/22 07/25/22 07/25/22 18:59 06:59 18:59 Intake Total 360 10 120 Output Total 1100 700 275 Balance -740 -690 -155 Weight 101.5 kg Intake: IV 10 Invasive Line 1 10 Oral 360 120 Output: Urine 1100 700 275 Straight 500 Uretheral (Huffman) 500 Other: Voiding Method Diaper Bedpan Indwelling Catheter Incontinent Diaper # Voids 1 1 - Exam VITAL SIGNS: Reviewed. GENERAL: Well-developed in no acute distress. HEENT: Head is normocephalic. Pupils are equal, round. Sclerae anicteric. Mucous membranes of the mouth are moist. Neck supple. No JVD or thyromegaly LUNGS: Respirations even and unlabored. Lungs essentially clear to auscultation bilaterally. HEART: Irregular rate and rhythm. S1 and S2 heard. ABDOMEN: Soft. Nondistended. Nontender. EXTREMITIES: Normal range of motion. No clubbing or cyanosis. Peripheral pulses intact. 1+ bilateral lower extremity edema NEUROLOGIC: Awake and alert. - Labs CBC & Chem 7: 07/23/22 09:37 07/24/22 09:01 Labs: Abnormal Lab Results - Last 24 Hours (Table) 07/24/22 07/24/22 07/25/22 Range/Units 16:27 20:50 06:08 POC Glucose (mg/dL) 134 H 174 H 128 H (70-110) mg/dL 07/25/22 Range/Units 11:32 POC Glucose (mg/dL) 133 H (70-110) mg/dL Microbiology - Last 24 Hours (Table) 07/23/22 15:54 Urine Culture - Final Urine,Voided Assessment and Plan Assessment: Acute systolic congestive heart New onset atrial fibrillation with RVR Multifocal atrial tachycardia Abnormal troponins, may be secondary to tachycardia, ACS unlikely Hypertension Hyperlipidemia Diabetes Plan: Continue with current cardiac medications Further recommendations based on clinical course The above impression and plan of care have been discussed and directed by the signing physician. Ana Rosa Hutton, nurse practitioner, acting as scribe for signing physician.
--- NOTE | 2022-07-25 14:57 | P.PN ---
Subjective Progress Note Date: 07/25/22 Principal diagnosis: Shortness of breath. Pulmonary/critical care consult dated 07/24/2022. 72-year-old female that we see today in room 375. The patient is currently on 5 L of oxygen. Not receiving any IV fluids. The patient's N-terminal proBNP was elevated, as was her troponin level. She apparently was admitted through the emergency room with a diagnosis of CHF, and atrial fibrillation. According to the ER dara, she presented with weakness, and inability to stand. She apparently fell at home. She was brought into the emergency room where she was evaluated. She was not eating or drinking properly. She apparently denied any fever or chills. Her admission diagnoses included new-onset atrial fibrillation, pulmonary edema, and rapid ventricular response. White count 11.1, hemoglobin 15.5, hematocrit 37.4, and platelet count 277,000. D-dimer was 0.76. Blood gases showed a pO2 of 98, pCO2 52, and a pH is 7.38. Sodium 144, potassium 3.8, chlorides 104, CO2 33, BUN 37, and creatinine 1.58. Troponins were 0.104 and 0.127. N-terminal proBNP was 4540. TSH was normal. A suggestive of a urinary tract infection. Her chest x-ray done on July 24 shows evidence of fulminant heart failure. Progress note dated 07/25/2022. The patient was seen in consultation yesterday. Please see my note above. Currently, the patient's on 5 L of oxygen. Saturations are 100%. She's not receiving any IV fluids. She's probably a bit better today than she was yes terday. She came into the emergency department with CHF, and atrial fibrillation. No new laboratory data today other than a glucose of 133. Objective - Vital Signs Vital signs: Vital Signs Temp 98.1 F 07/25/22 12:00 Pulse 82 07/25/22 12:00 Resp 21 07/25/22 12:00 BP 107/63 07/25/22 12:00 Pulse Ox 98 07/25/22 12:00 FiO2 50 07/24/22 08:42 Intake & Output 07/24/22 07/25/22 07/25/22 18:59 06:59 18:59 Intake Total 360 10 120 Output Total 1100 700 275 Balance -740 -690 -155 Weight 101.5 kg Intake: IV 10 Invasive Line 1 10 Oral 360 120 Output: Urine 1100 700 275 Straight 500 Uretheral (Huffman) 500 Other: Voiding Method Diaper Bedpan Indwelling Catheter Incontinent Diaper # Voids 1 1 - Exam No acute distress, nasal O2 in place. Patient very lethargic and somnolent. Nasal O2 in place. HEENT examination is grossly unremarkable. Neck supple. Full range of motion. No adenopathy thyromegaly or neck vein distention. Cardiovascular examination reveals regular rhythm rate. S1-S2 normal. No S3 or S4. No discernible murmur noted. Heart rate 82 bpm. Heart sounds are distant. Lungs reveal scattered bilateral rhonchi, and bilateral crackles. No wheezes. Breath sounds equal bilaterally. Saturations are 98%. Abdomen soft bowel sounds are heard. No masses or tenderness. Extremities are intact. No cyanosis clubbing or edema. Skin is without rash or lesion. Neurologic examination is brief but nonfocal. - Labs CBC & Chem 7: 07/23/22 09:37 07/24/22 09:01 Labs: Abnormal Lab Results - Last 24 Hours (Table) 07/24/22 07/24/22 07/25/22 Range/Units 16:27 20:50 06:08 POC Glucose (mg/dL) 134 H 174 H 128 H (70-110) mg/dL 07/25/22 Range/Units 11:32 POC Glucose (mg/dL) 133 H (70-110) mg/dL Microbiology - Last 24 Hours (Table) 07/23/22 15:54 Urine Culture - Final Urine,Voided Assessment and Plan Assessment: New onset atrial fibrillation, with RVR, and resultant congestive heart failure. History of congestive heart failure. History of diabetes mellitus. History of hyperlipidemia. History of hypertension. History of rheumatoid arthritis. History of kidney stones. Plan: Plan dated 07/24/2022. Updrafts were discontinued. The patient gets Lasix 40 mg IV push times one. Her chest x-ray, labs, medications, all reviewed. The patient's currently on 5 L of nasal O2. She's not receiving any IV fluids. Brain CT was negative for anything acute. We will continue to follow and make recommendations along the way. Prognosis is guarded. Plan dated 07/25/2022. The patient appears to be relatively stable. Her saturations are 98%. Her oxygen has been titrated down from 5-4 L. She's not receiving any IV fluids. Brain CT was negative for anything acute. We will continue to follow and make recommendations along the way. Prognosis is certainly guarded. Labs, x-rays, and medications are reviewed. Time with Patient: Less than 30
[2022-07-25] MEDS ORDERED: FERROUS SULFATE 325 MG TAB PO SCH (16:00)
[2022-07-25 16:24] LABS: Glucose,Whole Blood 259 mg/dL (70-110)
[2022-07-25] MEDS: ALBUTEROL NEBULIZED 2.5 MG/3 ML INHALATION PRN (19:36)
[2022-07-25 19:55] LABS: Glucose,Whole Blood 320 mg/dL (70-110)
[2022-07-25] MEDS: PRIMIDONE 50 MG TAB PO SCH (19:56)
[2022-07-25] MEDS: ALPRAZolam 0.5 MG TAB PO PRN (19:56)
[2022-07-25] MEDS: CALCIUM CARBONATE 500 MG CHEWABLE PO SCH (19:57)
[2022-07-25] MEDS: DOCUSATE 100 MG CAP PO SCH (19:57)
[2022-07-25] MEDS: INSULIN DETEMIR (LEVEMIR) 100 UNIT/ML SYR SQ SCH (20:09)
[2022-07-25] MEDS ORDERED: NON FORMULARY DRUG (Insulin Glargine,Hum.Rec.Anlog [Lantus Solostar Pen] 100 UNIT/ML Insul SQ SCH (21:00)
[2022-07-26] MEDS: HYDROcodone/APAP 5-325MG 1 EACH TAB PO PRN ×4 (01:23→21:15)
--- NOTE | 2022-07-26 04:38 | PN ---
PROGRESS NOTE DATE OF SERVICE: 07/25/2022 SUBJECTIVE: This 76-year-old woman who was admitted with atrial fibrillation, is being closely monitored. No chest pain or palpitations. OBJECTIVE: VITAL SIGNS: Pulse is 82, blood pressure 107/60, respirations 21. CHEST: Few scattered rhonchi. CARDIOVASCULAR: S1, S2. ABDOMEN: Soft. NERVOUS SYSTEM: No focal deficits. LABS: Reviewed. Chest x-ray done on shows some pulmonary edema. ASSESSMENT: 1. Atrial fibrillation with rapid ventricular rate. 2. Congestive heart failure with acute exacerbation. 3. Troponin 0.127, indeterminate. Rule out acute gji-TD-eryynqa-elevation myocardial infarction. 4. Generalized weakness, chronic right leg weakness. 5. Chronic kidney disease. RECOMMENDATIONS: I recommend to continue current medications, continue symptomatic treatment. Otherwise, continue with Lasix. Closely follow up with Cardiology. We will repeat labs tomorrow. Further recommendations to follow. MMODL / IJN: [id number] /
[2022-07-26 05:56] LABS: Glucose,Whole Blood 159 mg/dL (70-110)
[2022-07-26] MEDS: INSULIN ASPART (NovoLOG) 100 UNIT/ML VIAL SQ SCH ×4 (06:01→20:19)
[2022-07-26] MEDS: glipiZIDE 10 MG TAB PO SCH (06:22)
[2022-07-26] MEDS: allopurinoL 300 MG TAB PO SCH (08:21)
[2022-07-26] MEDS: POTASSIUM CHLORIDE ER 20 MEQ TAB.ER PO SCH (08:21)
[2022-07-26] MEDS: FAMOTIDINE 20 MG TAB PO SCH (08:21)
[2022-07-26] MEDS: busPIRone HCl 5 MG TAB PO SCH (08:21)
[2022-07-26] MEDS: LOSARTAN 25 MG TAB PO SCH (08:21)
[2022-07-26] MEDS: APIXABAN 5 MG TAB PO SCH ×2 (08:21→20:31)
[2022-07-26] MEDS: DOCUSATE 100 MG CAP PO SCH ×2 (08:21→20:31)
[2022-07-26] MEDS: CYANOCOBALAMIN 500 MCG TAB PO SCH (08:22)
[2022-07-26] MEDS: ATORVASTATIN 10 MG TAB PO SCH (08:22)
[2022-07-26] MEDS: BETHANECHOL 10 MG TAB PO SCH (08:22)
[2022-07-26] MEDS: hydroCHLOROthiazide 12.5 MG CAP PO SCH (08:22)
[2022-07-26] MEDS: METOPROLOL TARTRATE 25 MG TAB PO SCH (08:23)
[2022-07-26] MEDS: FUROSEMIDE 10 MG/ML 2 ML VIAL IV SCH ×2 (08:23→20:30)
[2022-07-26] MEDS: ASPIRIN 81 MG PO SCH (08:23)
[2022-07-26] MEDS ORDERED: amLODIPine 5 MG TAB PO SCH (09:00)
[2022-07-26 10:34] LABS: HGB 14.1 gm/dL (11.4-16.0); Hypochromasia Moderate; MCH 30.8 pg (25.0-35.0); Platelet Count 177 k/uL (150-450); RBC 4.58 m/uL (3.80-5.40); WBC 13.2 k/uL (3.8-10.6)
[2022-07-26 11:39] LABS: Lymphocytes # (M) 1.06 k/uL (1.0-4.8); Monocytes # (M) 0.66 k/uL (0-1.0); Neutrophils # (M) 11.48 k/uL (1.3-7.7); Neutrophils % (M) 87 %; Nucleated Red Blood Cells 0 /100 WBC (0-0); Total Cells Counted 100
[2022-07-26 11:51] LABS: Albumin 3.5 g/dL (3.5-5.0); Calcium 8.5 mg/dL (8.4-10.2); Potassium 3.6 mmol/L (3.5-5.1); Total Bilirubin 0.6 mg/dL (0.2-1.3); Total Protein 6.2 g/dL (6.3-8.2)
--- NOTE | 2022-07-26 11:53 | P.PN ---
Subjective This is a 76-year-old female with a past medical history significant for hypertension, hyperlipidemia, and diabetes. Patient follows in the office with Dr. Chaudhari but has not been seen in the office since May 2021. We have been asked to see the patient in consultation for afib with RVR. Patient presented to the hospital with a chief complaint of weakness. Patient denied having any chest pain or pressure. She denied SOB. Patient was found to be in atrial fibrillation with RVR. Patient denies history of atrial fibrillation. Bedside telemetry on admission revealed multifocal atrial tachycardia with short bursts of atrial fibrillation. Her echocardiogram showed a severely decreased LV dysfunction with an EF of 20-25% and moderate pulmonary hypertension 07/26/2022 Patient seen and examined at bedside, no acute distress. She is currently maintaining sinus mechanism HR 70s. She is on Eliquis for anticoagulation. Currently on IV Lasix 20mg BID. Labs pending. -1.4L fluid balance over the past 24 hours. PHYSICAL EXAM: VITAL SIGNS: Reviewed. GENERAL: Well-developed in no acute distress. HEENT: Head is normocephalic.Neck supple. No JVD LUNGS: Respirations even and unlabored. Lungs crackles in bases auscultation bilaterally. HEART: Regular rate and rhythm. S1 and S2 heard.Systolic murmur at apex. ABDOMEN: Soft. Nondistended. Nontender. EXTREMITIES: Normal range of motion. No clubbing or cyanosis. Peripheral pulses intact. 1+ bilateral lower extremity edema NEUROLOGIC: Awake and alert. ASSESSMENT: Generalized weakness New onset paroxysmal atrial fibrillation with RVR Cardiomyopathy, EF 20-25%, non-ischemic vs ischemic. Multifocal atrial tachycardia Abnormal troponins, may be secondary to tachycardia, ACS unlikely Hypertension Hyperlipidemia Diabetes PLAN: Stop amlodipine Stop Hctz Continue Eliquis 5mg BID Transition to metoprolol succinate 50mg BID Continue IV Lasix for additional 24 hours Monitor I/Os, daily weights, renal function and electrolytes Continue losartan 25 mg daily, possibly increase tomorrow based on BP Continue atorvastatin 40 mg daily Further recommendations pending patient's course Nurse practitioner note has been reviewed by physician. Signing provider agrees with the documented findings, assessment, and plan of care. Objective - Vital Signs Vital signs: Vital Signs Temp 98.5 F 07/26/22 04:00 Pulse 68 07/26/22 04:00 Resp 19 07/26/22 04:00 BP 118/72 11/21/22 04:00 Pulse Ox 98 07/26/22 04:00 FiO2 50 07/24/22 08:42 Intake & Output 07/25/22 07/26/22 07/26/22 18:59 06:59 18:59 Intake Total 360 1200 Output Total 275 1050 Balance 85 150 Intake: Oral 360 1200 Output: Urine 275 1050 Other: Voiding Method Indwelling Catheter Indwelling Catheter - Labs CBC & Chem 7: 07/26/22 10:04 07/24/22 09:01 Labs: Abnormal Lab Results - Last 24 Hours (Table) 07/25/22 07/25/22 07/25/22 Range/Units 11:32 16:22 19:52 POC Glucose (mg/dL) 133 H 259 H 320 H (70-110) mg/dL 07/26/22 Range/Units 05:54 POC Glucose (mg/dL) 159 H (70-110) mg/dL
[2022-07-26 12:05] LABS: Glucose,Whole Blood 387 mg/dL (70-110)
[2022-07-26] MEDS: METOPROLOL SUCCINATE (ER) 50 MG TAB.ER.24H PO SCH ×2 (12:24→20:30)
--- NOTE | 2022-07-26 12:39 | PN ---
PROGRESS NOTE DATE OF SERVICE: 07/26/2022 SUBJECTIVE: This 76-year-old woman was admitted with atrial fibrillation, also had CHF also. The patient will be closely monitored. No chest pain. No palpitations. No fever. OBJECTIVE: VITAL SIGNS: Pulse is 80, blood pressure 120/74, respirations 24. HEENT: Conjunctivae normal. NECK: No JVD. CARDIOVASCULAR: S1, S2 muffled. RESPIRATIONS: A few scattered rhonchi. ABDOMEN: Soft. NERVOUS SYSTEM: No focal deficits. LABS: Reviewed. WBC 13.2, glucose 387. ASSESSMENT: 1. Atrial fibrillation with rapid ventricular rate. 2. Congestive heart failure acute exacerbation. 3. Troponin 0.127, indeterminate. Rule out acute nnz-FD-cctetbn-elevation myocardial infarction. 4. No evidence of pneumonia. 5. Generalized weakness, chronic right leg weakness. 6. Chronic kidney disease. RECOMMENDATIONS AND DISCUSSION: Recommend to continue current medications and symptomatic treatment. Otherwise, closely follow with Cardiology. The patient is on IV Lasix at this time. Otherwise, repeat labs. Blood sugar is also elevated. Guarded prognosis. Further recommendations to follow. MMODL / IJN: [id number] /
--- NOTE | 2022-07-26 12:55 | MR ---
EXAMINATION TYPE: MR brain wo con DATE OF EXAM: 07/26/2022 12:40 PM COMPARISON: 07/11/2018 HISTORY: Rule out stroke FINDINGS: The ventricles, basal cisterns and sulci overlying the cerebral convexities are mildly enlarged. There is evidence of mild periventricular white matter ischemic demyelination. Remote deep white matter insults are also noted. No acute edema is seen on diffusion weighted imaging. There is no evidence for midline shift or mass effect. Acute intracranial hemorrhage or extra-axial collection is not evident. The paranasal sinuses and mastoid air cells are well-aerated. IMPRESSION: Age-related atrophic and chronic small vessel ischemic change. No acute intracranial process at this time.
--- NOTE | 2022-07-26 14:07 | CDI ---
Documentation Clarification Form Date: 07/26/2022 01:51:05 PM From: May Torres RN, CCDS Admit Date: 07/23/2022 10:21:00 AM Patient Name: Luisa Umaña Visit Number: [id number] Discharge Date: ATTENTION: The Clinical Documentation Specialists (CDI) and [facility] Coding Staff appreciate your assistance in clarifying documentation. Please respond to the clarification below the line at the bottom and electronically sign. The CDI & [facility] Coding staff will review the response and follow-up if needed. Please note: Queries are made part of the Legal Health Record. If you have any questions, please contact the author of this message via ITS. Dr. Evelio Duckworth Your patient has the documented diagnosis of unspecified CHF exacerbation. Additional information regarding the type of CHF is requested. History/Risk Factors: CHF, Diabetes mellitus, Hypertension Pneumonia, Rheumatoid arthritis Clinical Indicators: 10-inhy-gzhsky complains of weakness. 07/23 VS/Pulse OX: 168/88 110 18 97 95 % 07/23 BNP: 2790 Echocardiogram Results: ED 20-25 % Right ventricle moderate pulmonary hypertension 07/23 Chest X Ray: COPD with bilateral lower lobe infiltrate and small effusion correlate for pneumonia otherwise consider CHF. Treatment: Cardiac/Telemetry monitoring ASA 5 mg po bid Lasix 20 mg IV Q 12 hrs Lopressor 25 mg po tid 07/23-07/26 Cozaar 25 mg po daily In your professional opinion, can you please clarify the type of CHF if known? [ ] Acute Systolic Heart Failure (reduced EF) [ ] Chronic Systolic Heart Failure (reduced EF) [ ] Acute on Chronic Systolic Heart Failure (reduced EF) [ ] Acute Diastolic Heart Failure (preserved EF) [ ] Chronic Diastolic Heart Failure (preserved EF) [ ] Acute on Chronic Diastolic Heart Failure (preserved EF) [ ] Acute Systolic & Diastolic Heart Failure [ ] Chronic Systolic & Diastolic Heart Failure [ ] Acute on Chronic Heart Failure Systolic & Diastolic Heart Failure [ ] Other, please specify [ ] Unable to determine (Template Last Revised: October 2020) Acute on Chronic Systolic Heart Failure (reduced EF) [facility]
--- NOTE | 2022-07-26 14:24 | P.PN ---
Subjective Progress Note Date: 07/26/22 72-year-old female that we see today in room 375. The patient is currently on 5 L of oxygen. Not receiving any IV fluids. The patient's N-terminal proBNP was elevated, as was her troponin level. She apparently was admitted through the emergency room with a diagnosis of CHF, and atrial fibrillation. According to the ER dara, she presented with weakness, and inability to stand. She apparently fell at home. She was brought into the emergency room where she was evaluated. She was not eating or drinking properly. She apparently denied any fever or chills. Her admission diagnoses included new-onset atrial fibrillation, pulmonary edema, and rapid ventricular response. White count 11.1, hemoglobin 15.5, hematocrit 37.4, and platelet count 277,000. D-dimer was 0.76. Blood gases showed a pO2 of 98, pCO2 52, and a pH is 7.38. Sodium 144, potassium 3.8, chlorides 104, CO2 33, BUN 37, and creatinine 1.58. Troponins were 0.104 and 0.127. N-terminal proBNP was 4540. TSH was normal. A sug gestive of a urinary tract infection. Her chest x-ray done on July 24 shows evidence of fulminant heart failure. Progress note dated 07/25/2022. The patient was seen in consultation yesterday. Please see my note above. Currently, the patient's on 5 L of oxygen. Saturations are 100%. She's not receiving any IV fluids. She's probably a bit better today than she was yesterday. She came into the emergency department with CHF, and atrial fibrillation. No new laboratory data today other than a glucose of 133. On 07/26/2022, the patient is lethargic, arousable, communicating, the shortness of breath, she is on room air oxygen. Her white suppositive 13 point hemoglobin of 14 and a platelet count of 177. The electrolytes show a sodium of 146, BUN of 56 with a creatinine of 1.77 consistent with an acute kidney injury. Potassium levels at 3.6 and a floors. Troponins were positive at 0.1 respectively 2. ProBNP level was elevated at 4540. The patient was being subject diuretics. The patient was being treated with CHF and atrial fibrillation with rapid ventricular response. The patient currently is on Lasix 20 mg IV every 12 hours. The patient is also on long-term and coagulation with Eliquis 5 mg by mouth twice a day. The patient is taking metoprolol 50 mg by mouth twice a day for rate control also. Echocardiogram showed a ejection fraction of 20-25%, there was moderate to degree of concentric LVH. RV was normal and there was moderate degree of coronary hypertension. Rest of the valvular structures were essentially within normal limits and there was no segme ntal wall motion abnormalities. Objective - Vital Signs Vital signs: Vital Signs Temp 97.5 F L 07/26/22 12:00 Pulse 69 07/26/22 12:00 Resp 22 07/26/22 12:00 BP 109/63 07/26/22 12:00 Pulse Ox 94 L 07/26/22 12:00 FiO2 50 07/24/22 08:42 Intake & Output 07/25/22 07/26/22 07/26/22 18:59 06:59 18:59 Intake Total 360 1200 240 Output Total 275 1050 Balance 85 150 240 Intake: Oral 360 1200 240 Output: Urine 275 1050 Other: Voiding Method Indwelling Catheter Indwelling Catheter Indwelling Catheter - Exam No acute distress, . Patient very lethargic and somnolent. No major respiratory distress and the patient is currently on room air oxygen HEENT examination is grossly unremarkable. Neck supple. Full range of motion. No adenopathy thyromegaly or neck vein distention. Cardiovascular examination reveals regular rhythm rate. S1-S2 normal. No S3 or S4. No discernible murmur noted. Heart rate 82 bpm. Heart sounds are distant. Lungs reveal scattered bilateral rhonchi, and bilateral crackles. No wheezes. Breath sounds equal bilaterally. Saturations are 98%. Abdomen soft bowel sounds are heard. No masses or tenderness. Extremities are intact. No cyanosis clubbing and there is ongoing edema lower extremities bilaterally Skin is without rash or lesion. Neurologic examination is brief but nonfocal. - Labs CBC & Chem 7: 07/26/22 10:04 07/26/22 08:33 Labs: Abnormal Lab Results - Last 24 Hours (Table) 07/25/22 07/25/22 07/26/22 Range/Units 16:22 19:52 05:54 WBC (3.8-10.6) k/uL Neutrophils # (Manual) (1.3-7.7) k/uL Sodium (137-145) mmol/L Chloride (98-107) mmol/L BUN (7-17) mg/dL Creatinine (0.52-1.04) mg/dL Glucose (74-99) mg/dL POC Glucose (mg/dL) 259 H 320 H 159 H (70-110) mg/dL Total Protein (6.3-8.2) g/dL 07/26/22 07/26/22 07/26/22 Range/Units 08:33 10:04 11:45 WBC 13.2 H (3.8-10.6) k/uL Neutrophils # (Manual) 11.48 H (1.3-7.7) k/uL Sodium 146 H (137-145) mmol/L Chloride 108 H (98-107) mmol/L BUN 56 H (7-17) mg/dL Creatinine 1.77 H (0.52-1.04) mg/dL Glucose 191 H (74-99) mg/dL POC Glucose (mg/dL) 387 H (70-110) mg/dL Total Protein 6.2 L (6.3-8.2) g/dL Assessment and Plan Plan: New onset atrial fibrillation, with RVR, and resultant congestive heart failure. This morning, the patient remains in atrial fibrillation. Rate is controlled and the patient is on metoprolol and long-term and coagulation with Eliquis. The patient is also being diuresed. Acute systolic heart failure with an ejection fraction of 20-25% Moderate to severe secondary pulmonary hypertension Acute kidney injury and the creatinine is up to 1.77 of this is related to cardiomyopathy, and cardiorenal factors. Mild hypernatremia Shortness of breath secondary to above, improving Acute hypoxic respiratory failure, improving and the patient is currently on room air oxygen.tory of hyperlipidemia. History of hypertension. History of rheumatoid arthritis. History of kidney stones. Plan Continue diuresis with close attention of the renal function the sodium level Clinically improved and the patient is currently on room air oxygen Repeat chest x-ray in the morning management of CHF and atrial fibrillation per cardiology we'll continue to follow
--- NOTE | 2022-07-26 14:30 | CDI ---
Documentation Clarification Form Date: 07/27/2022 02:08:29 PM From: May Torres RN, CCDS Admit Date: 07/23/2022 10:21:00 AM Patient Name: Luisa Umaña Visit Number: [id number] Discharge Date: ATTENTION: The Clinical Documentation Specialists (CDI) and [facility] Coding Staff appreciate your assistance in clarifying documentation. Please respond to the clarification below the line at the bottom and electronically sign. The CDI & [facility] Coding staff will review the response and follow-up if needed. Please note: Queries are made part of the Legal Health Record. If you have any questions, please contact the author of this message via ITS. Dr. Evelio Duckworth Unspecified CKD is documented in the ongoing progress note starting on 07/25/2022. Additional clarification regarding the stage of CKD is requested. History/Risk Factors: CHF, Diabetes mellitus, Hypertension Pneumonia, Rheumatoid arthritis Patients Historical: 11/19/2021 BUN 64.9, CR 2.0, GFR 23.8 Clinical Indicators: [id number] complains of weakness, unable to stand. 07/23 BUN 37 CR 1.32 GFR 40 07/24 BUN 37 CR 1.58 GFR 32 07/26 BUIN 56 CR 1.77 GFR 28 Treatment: Monitor Labs, renal function Please clarify the stage of the CKD, if known: [ ] CKD Stage 1 (GFR > 90) [ ] CKD Stage 2 (GFR 60-89) [ ] CKD Stage 3 (GFR 30-59) [ ] CKD Stage 3a (GFR 45-59) [ ] CKD Stage 3b (GFR 30-44) [ ] CKD Stage 4 (GFR 15-29) [ ] Other, please specify [ ] Unable to determine (Template Last revised: October 2020) CKD Stage 3a (GFR 45-59) MTDD
[2022-07-26] MEDS: polyethylene glycoL 3350 17 GM POWD.PACK PO PRN (16:25)
[2022-07-26 16:48] LABS: Glucose,Whole Blood 413 mg/dL (70-110)
[2022-07-26 20:15] LABS: Glucose,Whole Blood 438 mg/dL (70-110)
[2022-07-26 20:15] LABS: Glucose,Whole Blood 565 mg/dL (70-110)
[2022-07-26] MEDS: PRIMIDONE 50 MG TAB PO SCH (20:30)
[2022-07-26] MEDS: CALCIUM CARBONATE 500 MG CHEWABLE PO SCH (20:31)
[2022-07-26] MEDS ORDERED: INSULIN DETEMIR (LEVEMIR) 100 UNIT/ML SYR SQ SCH (21:00)
[2022-07-26] MEDS: ALPRAZolam 0.5 MG TAB PO PRN (21:13)
[2022-07-26] MEDS: ACETAMINOPHEN TAB 325 MG TAB PO PRN (21:13)
[2022-07-27 06:00] LABS: Glucose,Whole Blood 227 mg/dL (70-110)
[2022-07-27] MEDS: glipiZIDE 10 MG TAB PO SCH (06:31)
[2022-07-27] MEDS: INSULIN ASPART (NovoLOG) 100 UNIT/ML VIAL SQ SCH ×4 (06:31→20:58)
[2022-07-27 07:42] LABS: Basophils % (A) 0 %; Eosinophils # (A) 0.2 k/uL (0-0.7); Eosinophils % (A) 1 %; HCT 43.7 % (34.0-46.0); HGB 13.6 gm/dL (11.4-16.0); Hypochromasia Moderate; Lymphocytes # (A) 1.6 k/uL (1.0-4.8); Lymphocytes % (A) 12 %; MCH 29.9 pg (25.0-35.0); MCHC 31.2 g/dL (31.0-37.0); Mean Platelet Volume 8.4; Monocytes # (A) 0.8 k/uL (0-1.0); Monocytes % (A) 6 %; Neutrophils # (A) 10.4 k/uL (1.3-7.7); Neutrophils % (A) 79 %; Platelet Count 210 k/uL (150-450); RBC 4.55 m/uL (3.80-5.40); RDW 13.3 % (11.5-15.5); WBC 13.1 k/uL (3.8-10.6)
[2022-07-27 07:55] LABS: Potassium 3.4 mmol/L (3.5-5.1)
[2022-07-27 07:56] LABS: Calcium 7.8 mg/dL (8.4-10.2)
[2022-07-27] MEDS: ALBUTEROL NEBULIZED 2.5 MG/3 ML INHALATION PRN ×2 (08:05→19:26)
[2022-07-27] MEDS: FAMOTIDINE 20 MG TAB PO SCH (08:59)
[2022-07-27] MEDS: DOCUSATE 100 MG CAP PO SCH ×2 (09:00→20:59)
[2022-07-27] MEDS: busPIRone HCl 5 MG TAB PO SCH (09:00)
[2022-07-27] MEDS: LOSARTAN 25 MG TAB PO SCH (09:00)
[2022-07-27] MEDS: APIXABAN 5 MG TAB PO SCH ×2 (09:00→20:59)
[2022-07-27] MEDS: POTASSIUM CHLORIDE ER 20 MEQ TAB.ER PO SCH (09:01)
[2022-07-27] MEDS: ASPIRIN 81 MG PO SCH (09:01)
[2022-07-27] MEDS: ATORVASTATIN 10 MG TAB PO SCH (09:01)
[2022-07-27] MEDS: HYDROcodone/APAP 5-325MG 1 EACH TAB PO PRN ×2 (09:02→23:51)
[2022-07-27] MEDS: BETHANECHOL 10 MG TAB PO SCH (09:02)
[2022-07-27] MEDS: allopurinoL 300 MG TAB PO SCH (09:02)
[2022-07-27] MEDS: METOPROLOL SUCCINATE (ER) 50 MG TAB.ER.24H PO SCH (09:02)
--- NOTE | 2022-07-27 09:02 | XR ---
EXAMINATION TYPE: XR chest 1V portable DATE OF EXAM: 07/27/2022 COMPARISON: NONE HISTORY: Shortness of breath TECHNIQUE: Single frontal view of the chest is obtained. FINDINGS: Interstitial pattern with bilateral infiltrate and pleural effusion. Cardiomegaly stable. No pneumothorax. Osseous structures are stable. IMPRESSION: Diffuse bilateral infiltrate and pleural effusion correlate for CHF versus diffuse pneum onia. Findings stable
[2022-07-27] MEDS: CYANOCOBALAMIN 500 MCG TAB PO SCH (09:03)
[2022-07-27] MEDS: FUROSEMIDE 10 MG/ML 2 ML VIAL IV SCH (09:04)
[2022-07-27] MEDS ORDERED: METOPROLOL SUCCINATE (ER) 50 MG TAB.ER.24H PO STA (10:17)
[2022-07-27 11:45] LABS: Glucose,Whole Blood 257 mg/dL (70-110)
[2022-07-27] MEDS ORDERED: POTASSIUM CHLORIDE ER 20 MEQ TAB.ER PO STA (12:26)
--- NOTE | 2022-07-27 12:30 | P.PN ---
Subjective This is a 76-year-old female with a past medical history significant for hypertension, hyperlipidemia, and diabetes. Patient follows in the office with Dr. Chaudhari but has not been seen in the office since May 2021. We have been asked to see the patient in consultation for afib with RVR. Patient presented to the hospital with a chief complaint of weakness. Patient denied having any chest pain or pressure. She denied SOB. Patient was found to be in atrial fibrillation with RVR. Patient denies history of atrial fibrillation. Bedside telemetry on admission revealed multifocal atrial tachycardia with short bursts of atrial fibrillation. Her echocardiogram showed a severely decreased LV dysfunction with an EF of 20-25% and moderate pulmonary hypertension 07/27/2022 Patient seen and examined at bedside, no acute distress. She was maintaining sinus rhythm overnight and this morning, however, around 0830am patient went into A fib with RVR. She is on Eliquis for anticoagulation. Currently on IV Lasix 20mg BID. sCr 1.4. -1.5L fluid balance over the past 24 hours. PHYSICAL EXAM: VITAL SIGNS: Reviewed. GENERAL: Frail, No acute distress. HEENT: Head is normocephalic.Neck supple. No JVD LUNGS: Respirations even and unlabored. Lungs mild crackles in bases auscultation bilaterally. HEART: Irregular rate and rhythm. S1 and S2 heard.Systolic murmur at apex. ABDOMEN: Soft. Nondistended. Nontender. EXTREMITIES: Normal range of motion. No clubbing or cyanosis. Peripheral pulses intact. 1+ bilateral lower extremity edema NEUROLOGIC: Awake and alert. ASSESSMENT: Generalized weakness New onset paroxysmal atrial fibrillation with RVR Cardiomyopathy, EF 20-25%, non-ischemic vs ischemic. Multifocal atrial tachycardia Abnormal troponins, may be secondary to tachycardia, ACS unlikely Hypertension Hyperlipidemia Diabetes Hypokalemia PLAN: Increase metoprolol succinate 100mg AM and 50mg nightly Replace potassium per protocol Continue Eliquis 5mg BID Decrease IV Lasix 20mg daily, hopefully transition to PO tomorrow Monitor I/Os, daily weights, renal function and electrolytes Continue losartan 25 mg daily Continue atorvastatin 40 mg daily Further recommendations pending patient's course Nurse practitioner note has been reviewed by physician. Signing provider agrees with the documented findings, assessment, and plan of care. Objective - Vital Signs Vital signs: Vital Signs Temp 97.9 F 07/27/22 08:00 Pulse 84 07/27/22 08:19 Resp 16 07/27/22 08:00 BP 153/98 07/27/22 08:00 Pulse Ox 100 07/27/22 08:08 FiO2 50 07/24/22 08:42 Intake & Output 07/26/22 07/27/22 07/27/22 18:59 06:59 18:59 Intake Total 480 118 Output Total 925 1150 Balance -445 -1150 118 Intake: Oral 480 118 Output: Urine 925 1150 Uretheral (Huffman) 650 Other: Voiding Method Indwelling Catheter Indwelling Catheter # Voids 1 - Labs CBC & Chem 7: 07/27/22 07:10 07/27/22 07:10 Labs: Abnormal Lab Results - Last 24 Hours (Table) 07/26/22 07/26/22 07/26/22 Range/Units 16:44 20:10 20:13 WBC (3.8-10.6) k/uL Neutrophils # (1.3-7.7) k/uL Potassium (3.5-5.1) mmol/L Carbon Dioxide (22-30) mmol/L BUN (7-17) mg/dL Creatinine (0.52-1.04) mg/dL POC Glucose (mg/dL) 413 H 565 H 438 H (70-110) mg/dL Calcium (8.4-10.2) mg/dL 07/27/22 07/27/22 07/27/22 Range/Units 05:58 07:10 07:10 WBC 13.1 H (3.8-10.6) k/uL Neutrophils # 10.4 H (1.3-7.7) k/uL Potassium 3.4 L (3.5-5.1) mmol/L Carbon Dioxide 35 H (22-30) mmol/L BUN 54 H (7-17) mg/dL Creatinine 1.49 H (0.52-1.04) mg/dL POC Glucose (mg/dL) 227 H (70-110) mg/dL Calcium 7.8 L (8.4-10.2) mg/dL 07/27/22 Range/Units 11:38 WBC (3.8-10.6) k/uL Neutrophils # (1.3-7.7) k/uL Potassium (3.5-5.1) mmol/L Carbon Dioxide (22-30) mmol/L BUN (7-17) mg/dL Creatinine (0.52-1.04) mg/dL POC Glucose (mg/dL) 257 H (70-110) mg/dL Calcium (8.4-10.2) mg/dL
--- NOTE | 2022-07-27 14:34 | P.PN ---
Subjective Progress Note Date: 07/27/22 This is a 76-year-old female who was recently admitted with atrial fibrillation also CHF acute exacerbation and being closely monitored. Cardiology is following patient is maintained on low-dose IV Lasix twice daily being adjusted. Kidney functions elevated although trending down. Patient continues with increased lethargic which is felt to be most likely a medication component. Multiple medical adjustments made and this was discussed with daughter at the bedside. PT/OT therapy to evaluate the patient. Encouraged oral intake. Recommend continue telemetry monitoring. Patient is lethargic but arousable answering some questions although falls asleep easily. Urine culture has finalized and was negative for any growth an MRI was negative of the brain. Potassium slightly low at 3.4 and will replace per protocol. WBC mildly elevated at 13.1 although patient is afebrile. Review of systems: Unable to completely assess as patient is lethargic Active Medications Acetaminophen (Acetaminophen Tab 325 Mg Tab) 650 mg PO Q6HR PRN PRN Reason: Fever and/ or Pain Last Admin: 07/26/22 21:13 Dose: 650 mg Hydrocodone Bitart/Acetaminophen (Hydrocodone/Apap 5-325mg 1 Each Tab) 0.5 each PO Q6HR PRN PRN Reason: Pain Albuterol Sulfate (Albuterol Nebulized 2.5 Mg/3 Ml) 2.5 mg INHALATION RT-QID PRN PRN Reason: Shortness Of Breath Or Wheezing Last Admin: 07/27/22 08:05 Dose: 2.5 mg Allopurinol (Allopurinol 300 Mg Tab) 300 mg PO DAILY [facility] Last Admin: 07/27/22 09:02 Dose: 300 mg Apixaban (Apixaban 5 Mg Tab) 5 mg PO BID [facility]; Protocol Last Admin: 07/27/22 09:00 Dose: 5 mg Aspirin (Aspirin 81 Mg) 81 mg PO DAILY [facility] Last Admin: 07/27/22 09:01 Dose: 81 mg Atorvastatin Calcium (Atorvastatin 10 Mg Tab) 20 mg PO DAILY [facility] Last Admin: 07/27/22 09:01 Dose: 20 mg Bethanechol Chloride (Bethanechol 10 Mg Tab) 5 mg PO DAILY [facility] Last Admin: 07/27/22 09:02 Dose: 5 mg Calcium Carbonate/Glycine (Calcium Carbonate 500 Mg Chewable) 1,000 mg PO HS [facility] Last Admin: 07/26/22 20:31 Dose: Not Given Cyanocobalamin (Cyanocobalamin 500 Mcg Tab) 2,500 mcg PO DAILY [facility] Last Admin: 07/27/22 09:03 Dose: 2,500 mcg Docusate Sodium (Docusate 100 Mg Cap) 100 mg PO BID [facility] Last Admin: 07/27/22 09:00 Dose: 100 mg Furosemide (Furosemide 10 Mg/Ml 2 Ml Vial) 20 mg IV DAILY [facility] Glipizide (Glipizide 10 Mg Tab) 10 mg PO AC-BRKFST [facility] Last Admin: 07/27/22 06:31 Dose: 10 mg Insulin Aspart (Insulin Aspart (Novolog) 100 Unit/Ml Vial) 0 unit SQ [facility]; Protocol Last Admin: 07/27/22 12:16 Dose: 6 unit Insulin Detemir (Insulin Detemir (Levemir) 100 Unit/Ml Syr) 35 unit SQ [facility] Last Admin: 07/26/22 20:19 Dose: 35 unit Losartan Potassium (Losartan 25 Mg Tab) 25 mg PO DAILY [facility] Last Admin: 07/27/22 09:00 Dose: 25 mg Metoprolol Succinate (Metoprolol Succinate (Er) 100 Mg Tab.Er.24h) 100 mg PO DAILY [facility] Metoprolol Succinate (Metoprolol Succinate (Er) 50 Mg Tab.Er.24h) 50 mg PO [facility] Miscellaneous Information (Potassium Replacement Protocol 1 Each Misc) 1 each MISCELLANE DAILY PRN; Protocol PRN Reason: Per Protocol Nitroglycerin (Nitroglycerin Sl Tabs 0.4 Mg Tab) 0.4 mg SUBLINGUAL Q5M PRN PRN Reason: Chest Pain Polyethylene Glycol (Polyethylene Glycol 3350 17 Gm Powd.Pack) 17 gm PO DAILY PRN PRN Reason: Constipation Last Admin: 07/26/22 16:25 Dose: 17 gm Potassium Chloride (Potassium Chloride Er 20 Meq Tab.Er) 20 meq PO DAILY [facility] Last Admin: 07/27/22 09:01 Dose: 20 meq Primidone (Primidone 50 Mg Tab) 50 mg PO HS [facility] Last Admin: 07/26/22 20:30 Dose: 50 mg PHYSICAL EXAMINATION: GENERAL: The patient is alert and oriented x2-3, or lethargic today although arousable but fatigues easily. Well developed, well nourished. Obese. HEENT: Pupils are round and equally reacting to light. EOMI. no scleral icterus. No conjunctival pallor. Normocephalic, atraumatic. No pharyngeal erythema. No t hyromegaly. CARDIOVASCULAR: S1 and S2 muffled PULMONARY: diminished breath sounds bilaterally with no wheezing or rhonchi noted. ABDOMEN: soft. Nontender on exam. obese. non-distended, normoactive bowel sounds. No palpable organomegaly. MUSCULOSKELETAL: No joint swelling or deformity. EXTREMITIES: No cyanosis, clubbing, or pedal edema. NEUROLOGICAL: Gross neurological examination did not reveal any focal deficits. Diffuse weakness SKIN: No rashes. Assessment: Atrial fibrillation with RVR Acute on chronic Congestive heart failure, systolic with reduced EF, acute exacerbation Chronic kidney disease stage III a Possible metabolic toxic encephalopathy due to medication effect Diabetes mellitus, type II, insulin-dependent, uncontrolled with hyperglycemia Troponin 0.127, indeterminate. Rule out acute and NSTEMI Generalized weakness, right leg weakness is chronic GI prophylaxis DVT prophylaxis Full code Plan: Recommend to continue with current medications and management with cardiology following. Pulmonary is following as well. Patient is continued on IV Lasix kidney functions are trending down although continue to be slightly elevated and being transitioned to daily Lasix. Patient having increased lethargic today. Urine culture finalized and was negative for any growth. Patient is afebrile denies any chest pain or shortness of breath. Patient will although is e xtremely lethargic and falls back asleep quickly. WBC 13.1 today. Potassium is 3.4 and will replace per protocol. Blood sugars have been uncontrolled and elevated and will adjust medications. Due to increased lethargy nursing staff was concerned about choking on food and medications and was evaluated by speech changing her to pured nectar thickened liquids with one-to-one supervision with meals. Patient currently has indwelling Huffman catheter for intake and output measurement and recommend to discontinue Huffman. PT/OT to evaluate the patient. Family is persistent on patient returning home with continued rehab in the home and does not want the patient to go to an ECF. PT/OT therapy notes. Recommend follow-up labs in the a.m. Medications have been adjusted and recommend to avoid MOLDER MACHINE and IV narcotic agents. Due to multiple complex medical issues, prognosis is guarded. The impression and plan of care has been dictated by Maeve Lopez, nurse practitioner as directed. Dr. Gucci MD I have performed a history and examination and MDM of this patient, discussed th e same with the dictator, and agree with the dictator's assessment and plan as written ,documented as a scribe. Based on total visit time, I have performed more than 50% of the visit. Any additional findings or plans will be noted. Objective - Vital Signs Vital signs: Vital Signs Temp 97.9 F 07/27/22 08:00 Pulse 84 07/27/22 08:19 Resp 16 07/27/22 08:00 BP 153/98 07/27/22 08:00 Pulse Ox 100 07/27/22 08:08 FiO2 50 07/24/22 08:42 Intake & Output 07/26/22 07/27/22 07/27/22 18:59 06:59 18:59 Intake Total 480 118 Output Total 925 1150 Balance -445 -1150 118 Intake: Oral 480 118 Output: Urine 925 1150 Uretheral (Huffman) 650 Other: Voiding Method Indwelling Catheter Indwelling Catheter # Voids 1 - Labs CBC & Chem 7: 07/27/22 07:10 07/27/22 07:10 Labs: Abnormal Lab Results - Last 24 Hours (Table) 07/26/22 07/26/22 07/26/22 Range/Units 16:44 20:10 20:13 WBC (3.8-10.6) k/uL Neutrophils # (1.3-7.7) k/uL Potassium (3.5-5.1) mmol/L Carbon Dioxide (22-30) mmol/L BUN (7-17) mg/dL Creatinine (0.52-1.04) mg/dL POC Glucose (mg/dL) 413 H 565 H 438 H (70-110) mg/dL Calcium (8.4-10.2) mg/dL 07/27/22 07/27/22 07/27/22 Range/Units 05:58 07:10 07:10 WBC 13.1 H (3.8-10.6) k/uL Neutrophils # 10.4 H (1.3-7.7) k/uL Potassium 3.4 L (3.5-5.1) mmol/L Carbon Dioxide 35 H (22-30) mmol/L BUN 54 H (7-17) mg/dL Creatinine 1.49 H (0.52-1.04) mg/dL POC Glucose (mg/dL) 227 H (70-110) mg/dL Calcium 7.8 L (8.4-10.2) mg/dL 07/27/22 Range/Units 11:38 WBC (3.8-10.6) k/uL Neutrophils # (1.3-7.7) k/uL Potassium (3.5-5.1) mmol/L Carbon Dioxide (22-30) mmol/L BUN (7-17) mg/dL Creatinine (0.52-1.04) mg/dL POC Glucose (mg/dL) 257 H (70-110) mg/dL Calcium (8.4-10.2) mg/dL
--- NOTE | 2022-07-27 16:17 | P.PN ---
Subjective Progress Note Date: 07/27/22 72-year-old female that we see today in room 375. The patient is currently on 5 L of oxygen. Not receiving any IV fluids. The patient's N-terminal proBNP was elevated, as was her troponin level. She apparently was admitted through the emergency room with a diagnosis of CHF, and atrial fibrillation. According to the ER dara, she presented with weakness, and inability to stand. She apparently fell at home. She was brought into the emergency room where she was evaluated. She was not eating or drinking properly. She apparently denied any fever or chills. Her admission diagnoses included new-onset atrial fibrillation, pulmonary edema, and rapid ventricular response. White count 11.1, hemoglobin 15.5, hematocrit 37.4, and platelet count 277,000. D-dimer was 0.76. Blood gases showed a pO2 of 98, pCO2 52, and a pH is 7.38. Sodium 144, potassium 3.8, chlorides 104, CO2 33, BUN 37, and creatinine 1.58. Troponins were 0.104 and 0.127. N-terminal proBNP was 4540. TSH was normal. A sug gestive of a urinary tract infection. Her chest x-ray done on July 24 shows evidence of fulminant heart failure. Progress note dated 07/25/2022. The patient was seen in consultation yesterday. Please see my note above. Currently, the patient's on 5 L of oxygen. Saturations are 100%. She's not receiving any IV fluids. She's probably a bit better today than she was yesterday. She came into the emergency department with CHF, and atrial fibrillation. No new laboratory data today other than a glucose of 133. On 07/26/2022, the patient is lethargic, arousable, communicating, the shortness of breath, she is on room air oxygen. Her white suppositive 13 point hemoglobin of 14 and a platelet count of 177. The electrolytes show a sodium of 146, BUN of 56 with a creatinine of 1.77 consistent with an acute kidney injury. Potassium levels at 3.6 and a floors. Troponins were positive at 0.1 respectively 2. ProBNP level was elevated at 4540. The patient was being subject diuretics. The patient was being treated with CHF and atrial fibrillation with rapid ventricular response. The patient currently is on Lasix 20 mg IV every 12 hours. The patient is also on long-term and coagulation with Eliquis 5 mg by mouth twice a day. The patient is taking metoprolol 50 mg by mouth twice a day for rate control also. Echocardiogram showed a ejection fraction of 20-25%, there was moderate to degree of concentric LVH. RV was normal and there was moderate degree of coronary hypertension. Rest of the valvular structures were essentially within normal limits and there was no segme ntal wall motion abnormalities. On today's evaluation of 07/27/2022, the patient is being seen for a follow-up. No major change in her condition. She is alert and awake. She is a slow in answering questions. She looks lethargic yet upon stimulation and upon interaction, the patient is able to answer questions appropriately and there is no evidence of any mental status change. The patient moldable 4 extremities. She has global generalized weakness in all 4 extremities. She does have some mouth breathing. She is being treated for CHF and the patient is being diuresed currently with IV Lasix 20 mg every 24 hours. The patient has been negative fluid balance. She was placed on 2 L of Oxymizer nasal cannula. Echo on the heart showed impaired LV function with an EF of around 20-25% and the patient continues to have significant amount of edema lower extremities bilaterally.The patient also has a moderate degree of pulmonary hypertension on her echocardiogram. The white cell cause of 15.4 with a hemoglobin 15.6, BUN is 54 with a creatinine of 1.4 and a sodium level of 143. Noted the renal function is improved compared to yesterday. Rest of the lites right are stable and the patient developed some mild metabolic alkalosis. Pro-calcitonin level at time of admission was 0.08. A repeat chest x-ray was done today and the patient continues to have diffuse bilateral pulmonary infiltrates and pleural effusion consistent with CHF. Pneumonia is felt to be less likely. Objective - Vital Signs Vital signs: Vital Signs Temp 97.9 F 07/27/22 08:00 Pulse 84 07/27/22 08:19 Resp 16 07/27/22 08:00 BP 153/98 07/27/22 08:00 Pulse Ox 100 07/27/22 08:08 FiO2 50 07/24/22 08:42 Intake & Output 07/26/22 07/27/22 07/27/22 18:59 06:59 18:59 Intake Total 480 118 Output Total 925 1150 Balance -445 -1150 118 Intake: Oral 480 118 Output: Urine 925 1150 Uretheral (Huffman) 650 Other: Voiding Method Indwelling Catheter Indwelling Catheter - Exam No acute distress, . Patient very lethargic and somnolent. No major respiratory distress and the patient is currently on room air oxygen, with a pulse ox of 99%, looks quite lethargic and weak HEENT examination is grossly unremarkable. Neck supple. Full range of motion. No adenopathy thyromegaly or neck vein distention. Cardiovascular examination reveals regular rhythm rate. S1-S2 normal. No S3 or S4. No discernible murmur noted. Heart rate 82 bpm. Heart sounds are distant. Lungs reveal scattered bilateral rhonchi, and bilateral crackles. No wheezes. Breath sounds equal bilaterally. Saturations are 98%. Abdomen soft bowel sounds are heard. No masses or tenderness. Extremities are intact. No cyanosis clubbing and there is ongoing edema lower extremities bilaterally Skin is without rash or lesion. Neurologic examination is brief but nonfocal., There is generalized global weakness in all 4 oximetry in this patient. She has a weak cough. No neck stiffness. Alert and awake and following commands and answering questions appropriately. She is lethargic but very much responsive and appropriate upon in traction. - Labs CBC & Chem 7: 07/27/22 07:10 07/27/22 07:10 Labs: Abnormal Lab Results - Last 24 Hours (Table) 07/26/22 07/26/22 07/26/22 Range/Units 08:33 10:04 11:45 WBC (3.8-10.6) k/uL Neutrophils # (1.3-7.7) k/uL Neutrophils # (Manual) 11.48 H (1.3-7.7) k/uL Sodium 146 H (137-145) mmol/L Potassium (3.5-5.1) mmol/L Chloride 108 H (98-107) mmol/L Carbon Dioxide (22-30) mmol/L BUN 56 H (7-17) mg/dL Creatinine 1.77 H (0.52-1.04) mg/dL Glucose 191 H (74-99) mg/dL POC Glucose (mg/dL) 387 H (70-110) mg/dL Calcium (8.4-10.2) mg/dL Total Protein 6.2 L (6.3-8.2) g/dL 07/26/22 07/26/22 07/26/22 Range/Units 16:44 20:10 20:13 WBC (3.8-10.6) k/uL Neutrophils # (1.3-7.7) k/uL Neutrophils # (Manual) (1.3-7.7) k/uL Sodium (137-145) mmol/L Potassium (3.5-5.1) mmol/L Chloride (98-107) mmol/L Carbon Dioxide (22-30) mmol/L BUN (7-17) mg/dL Creatinine (0.52-1.04) mg/dL Glucose (74-99) mg/dL POC Glucose (mg/dL) 413 H 565 H 438 H (70-110) mg/dL Calcium (8.4-10.2) mg/dL Total Protein (6.3-8.2) g/dL 07/27/22 07/27/22 07/27/22 Range/Units 05:58 07:10 07:10 WBC 13.1 H (3.8-10.6) k/uL Neutrophils # 10.4 H (1.3-7.7) k/uL Neutrophils # (Manual) (1.3-7.7) k/uL Sodium (137-145) mmol/L Potassium 3.4 L (3.5-5.1) mmol/L Chloride (98-107) mmol/L Carbon Dioxide 35 H (22-30) mmol/L BUN 54 H (7-17) mg/dL Creatinine 1.49 H (0.52-1.04) mg/dL Glucose (74-99) mg/dL POC Glucose (mg/dL) 227 H (70-110) mg/dL Calcium 7.8 L (8.4-10.2) mg/dL Total Protein (6.3-8.2) g/dL Assessment and Plan Plan: Acute decompensated CHF, elevated proBNP level, systolic heart failure with an e jection fraction of 20-25% Diffuse bilateral pulmonary infiltrates, most likely secondary to underlying CHF. Pneumonia is a felt to be less likely New onset atrial fibrillation, with RVR, and resultant congestive heart failure. This morning, the patient remains in atrial fibrillation. Rate is controlled and the patient is on metoprolol and long-term and coagulation with Eliquis. The patient is also being diuresed. The patient remains on IV Lasix 20 mg IV every 24 hours Acute systolic heart failure with an ejection fraction of 20-25% Moderate to severe secondary pulmonary hypertension Acute kidney injury and the creatinine is gradually improving and the patient has developed some mild metabolic alkalosis Mild hypernatremia, sodium level is at 143 Shortness of breath secondary to above, improving Acute hypoxic respiratory failure, improving and the patient is currently on room air oxygen. hyperlipidemia. History of hypertension. History of rheumatoid arthritis. History of kidney stones. Generalized global weakness with a negative MRI of the brain Plan Continue diuresis Monitor urine output and fluid balance and the renal function and electrolytes Continue diuresis with close attention of the renal function the sodium level Clinically improved and the patient is currently on room air oxygen Repeat chest x-ray in the morning and this was reviewed and the findings of essentially stable with diffuse bilateral pulmonary infiltrates most consistent with CHF management of CHF and atrial fibrillation per cardiology we'll continue to follow
[2022-07-27 16:35] LABS: Glucose,Whole Blood 155 mg/dL (70-110)
[2022-07-27] MEDS: polyethylene glycoL 3350 17 GM POWD.PACK PO PRN (17:18)
[2022-07-27 20:07] LABS: Glucose,Whole Blood 212 mg/dL (70-110)
[2022-07-27] MEDS: ACETAMINOPHEN TAB 325 MG TAB PO PRN (20:57)
[2022-07-27] MEDS: PRIMIDONE 50 MG TAB PO SCH (20:57)
[2022-07-27] MEDS: INSULIN DETEMIR (LEVEMIR) 100 UNIT/ML SYR SQ SCH (20:58)
[2022-07-27] MEDS: CALCIUM CARBONATE 500 MG CHEWABLE PO SCH (20:58)
[2022-07-27] MEDS ORDERED: METOPROLOL SUCCINATE (ER) 50 MG TAB.ER.24H PO SCH (21:00)
[2022-07-28 06:10] LABS: Glucose,Whole Blood 211 mg/dL (70-110)
[2022-07-28] MEDS: glipiZIDE 10 MG TAB PO SCH (06:37)
[2022-07-28] MEDS: INSULIN ASPART (NovoLOG) 100 UNIT/ML VIAL SQ SCH ×4 (06:38→20:37)
[2022-07-28] MEDS: CYANOCOBALAMIN 500 MCG TAB PO SCH (08:19)
[2022-07-28] MEDS: POTASSIUM CHLORIDE ER 20 MEQ TAB.ER PO SCH (08:19)
[2022-07-28] MEDS: ALBUTEROL NEBULIZED 2.5 MG/3 ML INHALATION PRN ×3 (08:19→19:40)
[2022-07-28] MEDS: HYDROcodone/APAP 5-325MG 1 EACH TAB PO PRN ×2 (08:20→20:37)
[2022-07-28] MEDS: LOSARTAN 25 MG TAB PO SCH (08:20)
[2022-07-28] MEDS: FUROSEMIDE 40 MG TAB PO SCH (08:20)
[2022-07-28] MEDS: DOCUSATE 100 MG CAP PO SCH ×2 (08:20→20:37)
[2022-07-28] MEDS: METOPROLOL SUCCINATE (ER) 100 MG TAB.ER.24H PO SCH ×2 (08:20→20:37)
[2022-07-28] MEDS: ASPIRIN 81 MG PO SCH (08:20)
[2022-07-28] MEDS: allopurinoL 300 MG TAB PO SCH (08:20)
[2022-07-28] MEDS: ATORVASTATIN 10 MG TAB PO SCH (08:20)
[2022-07-28] MEDS: APIXABAN 5 MG TAB PO SCH ×2 (08:22→20:37)
[2022-07-28] MEDS: BETHANECHOL 10 MG TAB PO SCH (08:22)
[2022-07-28] MEDS ORDERED: METOPROLOL SUCCINATE (ER) 100 MG TAB.ER.24H PO SCH (09:00)
[2022-07-28] MEDS ORDERED: FUROSEMIDE 10 MG/ML 2 ML VIAL IV SCH (09:00)
[2022-07-28 09:09] LABS: Calcium 8.1 mg/dL (8.4-10.2); Potassium 4.2 mmol/L (3.5-5.1)
[2022-07-28] MEDS ORDERED: diphenhydrAMINE 50 MG/ML 1 ML VIAL IVP STA (11:05)
--- NOTE | 2022-07-28 11:42 | P.PN ---
Subjective This is a 76-year-old female with a past medical history significant for hypertension, hyperlipidemia, and diabetes. Patient follows in the office with Dr. Chaudhari but has not been seen in the office since May 2021. We have been asked to see the patient in consultation for afib with RVR. Patient presented to the hospital with a chief complaint of weakness. Patient denied having any chest pain or pressure. She denied SOB. Patient was found to be in atrial fibrillation with RVR. Patient denies history of atrial fibrillation. Bedside telemetry on admission revealed multifocal atrial tachycardia with short bursts of atrial fibrillation. Her echocardiogram showed a severely decreased LV dysfunction with an EF of 20-25% and moderate pulmonary hypertension 07/28/2022 Patient seen and examined at bedside, no acute distress. She went back into A fib with RVR yesterday, her beta antonella was increased and continues to be in A fib with mild RVR this morning. She denies any chest pain or shortness of breath. Is lethargic this morning. She is on Eliquis for anticoagulation. Currently on IV Lasix 20mg Daily. sCr 1.57. PHYSICAL EXAM: VITAL SIGNS: Reviewed. GENERAL: Frail, No acute distress. HEENT: Head is normocephalic.Neck supple. No JVD LUNGS: Respirations even and unlabored. Lungs mild crackles in bases auscultation bilaterally. HEART: Irregular rate and rhythm. S1 and S2 heard.Systolic murmur at apex. ABDOMEN: Soft. Nondistended. Nontender. EXTREMITIES: Normal range of motion. No clubbing or cyanosis. Peripheral pulses intact. 1+ bilateral lower extremity edema NEUROLOGIC: Awake and alert. ASSESSMENT: Generalized weakness New onset paroxysmal atrial fibrillation with RVR Cardiomyopathy, EF 20-25%, non-ischemic vs ischemic. Multifocal atrial tachycardia Abnormal troponins, may be secondary to tachycardia, ACS unlikely Hypertension Hyperlipidemia Diabetes Hypokalemia PLAN: Increase metoprolol succinate 100mg BID Continue Eliquis 5mg BID Transition to PO Lasix Monitor I/Os, daily weights, renal function and electrolytes Continue losartan 25 mg daily Continue atorvastatin 40 mg daily Further recommendations pending patient's course Nurse practitioner note has been reviewed by physician. Signing provider agrees with the documented findings, assessment, and plan of care. Objective - Vital Signs Vital signs: Vital Signs Temp 98 F 07/28/22 08:15 Pulse 104 H 07/28/22 11:30 Resp 20 11/23/22 08:15 BP 112/82 07/28/22 08:15 Pulse Ox 98 07/28/22 08:21 FiO2 50 07/24/22 08:42 Intake & Output 07/27/22 07/28/22 07/28/22 18:59 06:59 18:59 Intake Total 354 180 Output Total 350 Balance 4 180 Intake: Oral 354 180 Output: Urine 350 Other: Voiding Method Indwelling Catheter Indwelling Catheter Indwelling Catheter # Voids 1 - Labs CBC & Chem 7: 07/27/22 07:10 07/28/22 08:06 Labs: Abnormal Lab Results - Last 24 Hours (Table) 07/27/22 07/27/22 07/27/22 Range/Units 11:38 16:33 20:05 Carbon Dioxide (22-30) mmol/L BUN (7-17) mg/dL Creatinine (0.52-1.04) mg/dL Glucose (74-99) mg/dL POC Glucose (mg/dL) 257 H 155 H 212 H (70-110) mg/dL Calcium (8.4-10.2) mg/dL 07/28/22 07/28/22 Range/Units 06:08 08:06 Carbon Dioxide 33 H (22-30) mmol/L BUN 52 H (7-17) mg/dL Creatinine 1.57 H (0.52-1.04) mg/dL Glucose 249 H (74-99) mg/dL POC Glucose (mg/dL) 211 H (70-110) mg/dL Calcium 8.1 L (8.4-10.2) mg/dL
[2022-07-28 11:49] LABS: Glucose,Whole Blood 300 mg/dL (70-110)
[2022-07-28] MEDS ORDERED: NA PHOS,M-B/NA PHOS,DI-BA 133 ML ENEMA RECTAL STA (14:34)
[2022-07-28] MEDS ORDERED: bisacodyL 10 MG SUPP RECTAL PRN (14:34)
--- NOTE | 2022-07-28 14:43 | P.PN ---
Subjective Progress Note Date: 07/28/22 This is a 76-year-old female who was recently admitted with atrial fibrillation also CHF acute exacerbation and being closely monitored. Cardiology is following patient is maintained on low-dose IV Lasix twice daily being adjusted. Kidney functions elevated although trending down. Patient continues with increased lethargic which is felt to be most likely a medication component. Multiple medical adjustments made and this was discussed with daughter at the bedside. PT/OT therapy to evaluate the patient. Encouraged oral intake. Recommend continue telemetry monitoring. Patient is lethargic but arousable answering some questions although falls asleep easily. Urine culture has finalized and was negative for any growth an MRI was negative of the brain. Potassium slightly low at 3.4 and will replace per protocol. WBC mildly elevated at 13.1 although patient is afebrile. 07/28/2022 Patient is seen in follow-up this morning currently sitting up in bed with daughter at the bedside. Patient was started on oral Lasix as kidney functions are elevated with cardiology following. Patient more alert today and complaining of abdominal pain as she reports she feels constipated and will add a fleets enema along with continuing bowel regimen. Patient is afebrile and denies chest pain or shortness of breath. Cardiac medications have been adjusted cardiology following closely. Patient have physical therapy evaluate the patient and recommend working with daily as patient continues to be significantly weak. Family at the bedside questioning if she will need rehab at a facility or can continue going home and having physical therapy as she does at the home setting. Family would like to take the patient home when stable and discharged. Recommend follow-up labs and will continue to monitor closely. Review of systems: Constitutional: reports of fatigue, no reports of fever, or chills Cardiovascular: No reports of chest pain or palpitations Respiratory: No reports of shortness of breath or cough GI: No reports of nausea, vomiting, or diarrhea, reports constipation and abdominal bloating : No reports of dysuria or retention Neurovascular: reports of generalized weakness All medications have been reviewed Active Medications Acetaminophen (Acetaminophen Tab 325 Mg Tab) 650 mg PO Q6HR PRN PRN Reason: Fever and/ or Pain Last Admin: 07/27/22 20:57 Dose: 650 mg Hydrocodone Bitart/Acetaminophen (Hydrocodone/Apap 5-325mg 1 Each Tab) 0.5 each PO Q6HR PRN PRN Reason: Pain Last Admin: 07/28/22 08:20 Dose: 0.5 each Albuterol Sulfate (Albuterol Nebulized 2.5 Mg/3 Ml) 2.5 mg INHALATION RT-QID PRN PRN Reason: Shortness Of Breath Or Wheezing Last Admin: 07/28/22 11:33 Dose: 2.5 mg Allopurinol (Allopurinol 300 Mg Tab) 300 mg PO DAILY [facility] Last Admin: 07/28/22 08:20 Dose: 300 mg Apixaban (Apixaban 5 Mg Tab) 5 mg PO BID [facility]; Protocol Last Admin: 07/28/22 08:22 Dose: 5 mg Aspirin (Aspirin 81 Mg) 81 mg PO DAILY [facility] Last Admin: 07/28/22 08:20 Dose: 81 mg Atorvastatin Calcium (Atorvastatin 10 Mg Tab) 20 mg PO DAILY [facility] Last Admin: 07/28/22 08:20 Dose: 20 mg Bethanechol Chloride (Bethanechol 10 Mg Tab) 5 mg PO DAILY [facility] Last Admin: 07/28/22 08:22 Dose: 5 mg Bisacodyl (Bisacodyl 10 Mg Supp) 10 mg RECTAL DAILY PRN PRN Reason: Constipation Calcium Carbonate/Glycine (Calcium Carbonate 500 Mg Chewable) 1,000 mg PO [facility] Last Admin: 07/27/22 20:58 Dose: 1,000 mg Cyanocobalamin (Cyanocobalamin 500 Mcg Tab) 2,500 mcg PO DAILY [facility] Last Admin: 07/28/22 08:19 Dose: 2,500 mcg Docusate Sodium (Docusate 100 Mg Cap) 100 mg PO BID [facility] Last Admin: 07/28/22 08:20 Dose: 100 mg Furosemide (Furosemide 40 Mg Tab) 40 mg PO DAILY [facility] Last Admin: 07/28/22 08:20 Dose: 40 mg Glipizide (Glipizide 10 Mg Tab) 10 mg PO AC-BRKFST [facility] Last Admin: 07/28/22 06:37 Dose: 10 mg Insulin Aspart (Insulin Aspart (Novolog) 100 Unit/Ml Vial) 0 unit SQ [facility]; Protocol Last Admin: 07/28/22 13:22 Dose: 6 unit Insulin Detemir (Insulin Detemir (Levemir) 100 Unit/Ml Syr) 40 unit SQ [facility] Last Admin: 07/27/22 20:58 Dose: 40 unit Losartan Potassium (Losartan 25 Mg Tab) 25 mg PO DAILY [facility] Last Admin: 07/28/22 08:20 Dose: 25 mg Metoprolol Succinate (Metoprolol Succinate (Er) 100 Mg Tab.Er.24h) 100 mg PO BID [facility] Last Admin: 07/28/22 08:20 Dose: 100 mg Miscellaneous Information (Potassium Replacement Protocol 1 Each Misc) 1 each MISCELLANE DAILY PRN; Protocol PRN Reason: Per Protocol Nitroglycerin (Nitroglycerin Sl Tabs 0.4 Mg Tab) 0.4 mg SUBLINGUAL Q5M PRN PRN Reason: Chest Pain Polyethylene Glycol (Polyethylene Glycol 3350 17 Gm Powd.Pack) 17 gm PO DAILY PRN PRN Reason: Constipation Last Admin: 07/27/22 17:18 Dose: 17 gm Potassium Chloride (Potassium Chloride Er 20 Meq Tab.Er) 20 meq PO DAILY [facility] Last Admin: 07/28/22 08:19 Dose: 20 meq Primidone (Primidone 50 Mg Tab) 50 mg PO HS [facility] Last Admin: 07/27/22 20:57 Dose: 50 mg PHYSICAL EXAMINATION: GENERAL: The patient is alert and oriented x2-3, more alert today. Well developed, well nourished. Obese. HEENT: Pupils are round and equally reacting to light. EOMI. no scleral icterus. No conjunctival pallor. Normocephalic, atraumatic. No pharyngeal erythema. No thyromegaly. CARDIOVASCULAR: S1 and S2 muffled PULMONARY: diminished breath sounds bilaterally with no wheezing or rhonchi noted. ABDOMEN: soft. Mildly tender on exam. obese. mildly distended, normoactive bowel sounds. No palpable organomegaly. MUSCULOSKELETAL: No joint swelling or deformity. EXTREMITIES: No cyanosis, clubbing, or pedal edema. biLateral lower edema noted on exam NEUROLOGICAL: Gross neurological examination did not reveal any focal deficits. Diffuse weakness SKIN: No rashes. Assessment: Atrial fibrillation with RVR, currently rate controlled Acute on chronic Congestive heart failure, systolic with reduced EF, acute exacerbation Chronic kidney disease stage III a Possible metabolic toxic encephalopathy due to medication effect, improving Diabetes mellitus, type II, insulin-dependent, uncontrolled with hyperglycemia Troponin 0.127, indeterminate. Ruled out acute NSTEMI Generalized weakness, right leg weakness is chronic GI prophylaxis DVT prophylaxis Full code Plan: Recommend to continue with current medications and management with cardiology following. Pulmonary is following as well. Patient is continued on IV Lasix and kidney functions worsening and has been transitioned oral Lasix per ca rdiology. Cardiology medications have been adjusted. Recommend repeat labs in a.m. Patient is reporting some increased abdominal distention and bloating and reports she has not had a bowel movement. Will add suppository along with enema and this was discussed with nursing staff. PT/OT to follow the patient. Family is persistent on patient returning home with continued rehab in the home and d oes not want the patient to go to an ECF. Case management is following and will follow-up in the next few days once physical therapy has evaluated the patient. Awaiting PT/OT therapy notes. Recommend follow-up labs in the a.m. Medications have been adjusted and recommend to avoid [employer] and IV narcotic agents. Due to multiple complex medical issues, prognosis is guarded. The impression and plan of care has been dictated by Maeve Lopez, nurse practitioner as directed. Dr. Gucci MD I have performed a history and examination and MDM of this patient, discussed the same with the dictator, and agree with the dictator's assessment and plan as written ,documented as a scribe. Based on total visit time, I have performed more than 50% of the visit. Any additional findings or plans will be noted. Objective - Vital Signs Vital signs: Vital Signs Temp 98 F 07/28/22 08:15 Pulse 108 H 07/28/22 08:32 Resp 20 07/28/22 08:15 BP 112/82 07/28/22 08:15 Pulse Ox 98 07/28/22 08:21 FiO2 50 07/24/22 08:42 Intake & Output 07/27/22 07/28/22 07/28/22 18:59 06:59 18:59 Intake Total 354 180 Output Total 350 Balance 4 180 Intake: Oral 354 180 Output: Urine 350 Other: Voiding Method Indwelling Catheter Indwelling Catheter Indwelling Catheter # Voids 1 - Labs CBC & Chem 7: 07/27/22 07:10 07/28/22 08:06 Labs: Abnormal Lab Results - Last 24 Hours (Table) 07/27/22 07/27/22 07/27/22 Range/Units 11:38 16:33 20:05 Carbon Dioxide (22-30) mmol/L BUN (7-17) mg/dL Creatinine (0.52-1.04) mg/dL Glucose (74-99) mg/dL POC Glucose (mg/dL) 257 H 155 H 212 H (70-110) mg/dL Calcium (8.4-10.2) mg/dL 07/28/22 07/28/22 Range/Units 06:08 08:06 Carbon Dioxide 33 H (22-30) mmol/L BUN 52 H (7-17) mg/dL Creatinine 1.57 H (0.52-1.04) mg/dL Glucose 249 H (74-99) mg/dL POC Glucose (mg/dL) 211 H (70-110) mg/dL Calcium 8.1 L (8.4-10.2) mg/dL
[2022-07-28 14:46] VITALS: BMI 34.0
[2022-07-28 16:48] LABS: Glucose,Whole Blood 298 mg/dL (70-110)
--- NOTE | 2022-07-28 17:17 | P.PN ---
Subjective Progress Note Date: 07/28/22 72-year-old female that we see today in room 375. The patient is currently on 5 L of oxygen. Not receiving any IV fluids. The patient's N-terminal proBNP was elevated, as was her troponin level. She apparently was admitted through the emergency room with a diagnosis of CHF, and atrial fibrillation. According to the ER dara, she presented with weakness, and inability to stand. She apparently fell at home. She was brought into the emergency room where she was evaluated. She was not eating or drinking properly. She apparently denied any fever or chills. Her admission diagnoses included new-onset atrial fibrillation, pulmonary edema, and rapid ventricular response. White count 11.1, hemoglobin 15.5, hematocrit 37.4, and platelet count 277,000. D-dimer was 0.76. Blood gases showed a pO2 of 98, pCO2 52, and a pH is 7.38. Sodium 144, potassium 3.8, chlorides 104, CO2 33, BUN 37, and creatinine 1.58. Troponins were 0.104 and 0.127. N-terminal proBNP was 4540. TSH was normal. A sug gestive of a urinary tract infection. Her chest x-ray done on July 24 shows evidence of fulminant heart failure. Progress note dated 07/25/2022. The patient was seen in consultation yesterday. Please see my note above. Currently, the patient's on 5 L of oxygen. Saturations are 100%. She's not receiving any IV fluids. She's probably a bit better today than she was yesterday. She came into the emergency department with CHF, and atrial fibrillation. No new laboratory data today other than a glucose of 133. On 07/26/2022, the patient is lethargic, arousable, communicating, the shortness of breath, she is on room air oxygen. Her white suppositive 13 point hemoglobin of 14 and a platelet count of 177. The electrolytes show a sodium of 146, BUN of 56 with a creatinine of 1.77 consistent with an acute kidney injury. Potassium levels at 3.6 and a floors. Troponins were positive at 0.1 respectively 2. ProBNP level was elevated at 4540. The patient was being subject diuretics. The patient was being treated with CHF and atrial fibrillation with rapid ventricular response. The patient currently is on Lasix 20 mg IV every 12 hours. The patient is also on long-term and coagulation with Eliquis 5 mg by mouth twice a day. The patient is taking metoprolol 50 mg by mouth twice a day for rate control also. Echocardiogram showed a ejection fraction of 20-25%, there was moderate to degree of concentric LVH. RV was normal and there was moderate degree of coronary hypertension. Rest of the valvular structures were essentially within normal limits and there was no segme ntal wall motion abnormalities. On today's evaluation of 07/27/2022, the patient is being seen for a follow-up. No major change in her condition. She is alert and awake. She is a slow in answering questions. She looks lethargic yet upon stimulation and upon interaction, the patient is able to answer questions appropriately and there is no evidence of any mental status change. The patient moldable 4 extremities. She has global generalized weakness in all 4 extremities. She does have some mouth breathing. She is being treated for CHF and the patient is being diuresed currently with IV Lasix 20 mg every 24 hours. The patient has been negative fluid balance. She was placed on 2 L of Oxymizer nasal cannula. Echo on the heart showed impaired LV function with an EF of around 20-25% and the patient continues to have significant amount of edema lower extremities bilaterally.The patient also has a moderate degree of pulmonary hypertension on her echocardiogram. The white cell cause of 15.4 with a hemoglobin 15.6, BUN is 54 with a creatinine of 1.4 and a sodium level of 143. Noted the renal function is improved compared to yesterday. Rest of the lites right are stable and the patient developed some mild metabolic alkalosis. Pro-calcitonin level at time of admission was 0.08. A repeat chest x-ray was done today and the patient continues to have diffuse bilateral pulmonary infiltrates and pleural effusion consistent with CHF. Pneumonia is felt to be less likely. On today's evaluation of 07/28/2022, the patient's is more interactive. She is showing slow but ongoing improvement. The patient remains on Lasix and the Lasix and this was to 40 g by mouth on a daily basis. She is in a negative fluid balance the lower extremity edema is improved. She remains on antic oagulation with Eliquis 5 mg by mouth twice a day. She is only on 2 L of oxygen by nasal cannula. Repeat chest x-ray was ordered for tomorrow. She is tolerating her diet. She is sluggish and this is probably close to her baseline. Objective - Vital Signs Vital signs: Vital Signs Temp 98 F 07/28/22 08:15 Pulse 106 H 07/28/22 11:44 Resp 20 07/28/22 08:15 BP 112/82 07/28/22 08:15 Pulse Ox 98 07/28/22 08:21 FiO2 50 07/24/22 08:42 Intake & Output 07/27/22 07/28/22 07/28/22 18:59 06:59 18:59 Intake Total 354 180 Output Total 350 Balance 4 180 Intake: Oral 354 180 Output: Urine 350 Other: Voiding Method Indwelling Catheter Indwelling Catheter Indwelling Catheter # Voids 1 - Exam No acute distress, . Patient very lethargic and somnolent. No major respiratory distress and the patient is currently on room air oxygen, with a pulse ox of 99%, looks quite lethargic and weak HEENT examination is grossly unremarkable. Neck supple. Full range of motion. No adenopathy thyromegaly or neck vein distention. Cardiovascular examination reveals regular rhythm rate. S1-S2 normal. No S3 or S4. No discernible murmur noted. Heart rate 82 bpm. Heart sounds are distant. Lungs reveal scattered bilateral rhonchi, and bilateral crackles. No wheezes. Breath sounds equal bilaterally. Saturations are 98%. Abdomen soft bowel sounds are heard. No masses or tenderness. Extremities are intact. No cyanosis clubbing and there is ongoing edema lower extremities bilaterally Skin is without rash or lesion. Neurologic examination is brief but nonfocal., There is generalized global weak ness in all 4 oximetry in this patient. She has a weak cough. No neck stiffness. Alert and awake and following commands and answering questions appropriately. She is lethargic but very much responsive and appropriate upon in traction. - Labs CBC & Chem 7: 07/27/22 07:10 07/28/22 08:06 Labs: Abnormal Lab Results - Last 24 Hours (Table) 07/27/22 07/27/22 07/28/22 Range/Units 16:33 20:05 06:08 Carbon Dioxide (22-30) mmol/L BUN (7-17) mg/dL Creatinine (0.52-1.04) mg/dL Glucose (74-99) mg/dL POC Glucose (mg/dL) 155 H 212 H 211 H (70-110) mg/dL Calcium (8.4-10.2) mg/dL 07/28/22 07/28/22 Range/Units 08:06 11:47 Carbon Dioxide 33 H (22-30) mmol/L BUN 52 H (7-17) mg/dL Creatinine 1.57 H (0.52-1.04) mg/dL Glucose 249 H (74-99) mg/dL POC Glucose (mg/dL) 300 H (70-110) mg/dL Calcium 8.1 L (8.4-10.2) mg/dL Assessment and Plan Plan: Acute decompensated CHF, elevated proBNP level, systolic heart failure with an ejection fraction of 20-25% Diffuse bilateral pulmonary infiltrates, most likely secondary to underlying CHF. Pneumonia is a felt to be less likely New onset atrial fibrillation, with RVR, and resultant congestive heart failure. This morning, the patient remains in atrial fibrillation. Rate is controlled and the patient is on metoprolol and long-term and coagulation with Eliquis. The patient is also being diuresed. The patient remains on IV Lasix 20 mg IV every 24 hours Acute systolic heart failure with an ejection fraction of 20-25% Moderate to severe secondary pulmonary hypertension Acute kidney injury and the creatinine is gradually improving and the patient has developed some mild metabolic alkalosis Mild hypernatremia, sodium level is at 143 Shortness of breath secondary to above, improving Acute hypoxic respiratory failure, improving and the patient is currently on room air oxygen. hyperlipidemia. History of hypertension. History of rheumatoid arthritis. History of kidney stones. Generalized global weakness with a negative MRI of the brain Plan Follow-up chest x-ray for tomorrow Continue diuresisand the patient is currently on Lasix 40 mg by mouth daily and IV Lasix was discontinued Monitor urine output and fluid balance and the renal function and electrolytes Continue diuresis with close attention of the renal function the sodium level Clinically improved and the patient is currently on room air oxygen increase mobility we'll continue to follow
[2022-07-28 20:02] LABS: Glucose,Whole Blood 245 mg/dL (70-110)
[2022-07-28] MEDS: PRIMIDONE 50 MG TAB PO SCH (20:36)
[2022-07-28] MEDS: INSULIN DETEMIR (LEVEMIR) 100 UNIT/ML SYR SQ SCH (20:36)
[2022-07-28] MEDS: CALCIUM CARBONATE 500 MG CHEWABLE PO SCH (20:37)
[2022-07-29] MEDS: ACETAMINOPHEN TAB 325 MG TAB PO PRN ×2 (00:11→22:03)
[2022-07-29 06:30] LABS: Glucose,Whole Blood 96 mg/dL (70-110)
[2022-07-29] MEDS: INSULIN ASPART (NovoLOG) 100 UNIT/ML VIAL SQ SCH ×4 (06:33→22:05)
[2022-07-29] MEDS: ALBUTEROL NEBULIZED 2.5 MG/3 ML INHALATION PRN ×2 (07:30→15:27)
--- NOTE | 2022-07-29 08:20 | XR ---
EXAMINATION TYPE: XR chest 1V portable DATE OF EXAM: 07/29/2022 COMPARISON: 07/27/2022 HISTORY: CHF TECHNIQUE: Single frontal view of the chest is obtained. FINDINGS: Heart size is normal for the technique and the pulmonary vasculature is not appear congest ed. There is a prominent retrocardiac opacity which is essentially unchanged compared to the prior study. Suspicious for pneumonic infiltrate.. Small right pleural effusion is not excluded and is unchanged compared to previous. The graft is no pneumothorax. The osseous structures are intact. IMPRESSION: Findings consistent with acute cardiopulmonary disease primarily involving the left lung base, suspicious for pneumonia. Essentially unchanged compared to previous.
[2022-07-29] MEDS: DOCUSATE 100 MG CAP PO SCH ×2 (08:26→22:02)
[2022-07-29] MEDS: FUROSEMIDE 40 MG TAB PO SCH (08:26)
[2022-07-29] MEDS: LOSARTAN 25 MG TAB PO SCH (08:26)
[2022-07-29] MEDS: allopurinoL 300 MG TAB PO SCH (08:26)
[2022-07-29] MEDS: CYANOCOBALAMIN 500 MCG TAB PO SCH (08:26)
[2022-07-29] MEDS: ATORVASTATIN 10 MG TAB PO SCH (08:26)
[2022-07-29] MEDS: POTASSIUM CHLORIDE ER 20 MEQ TAB.ER PO SCH (08:26)
[2022-07-29] MEDS: APIXABAN 5 MG TAB PO SCH ×2 (08:26→22:03)
[2022-07-29] MEDS: BETHANECHOL 10 MG TAB PO SCH (08:27)
[2022-07-29] MEDS: ASPIRIN 81 MG PO SCH (08:27)
[2022-07-29] MEDS: METOPROLOL SUCCINATE (ER) 100 MG TAB.ER.24H PO SCH ×2 (08:27→23:11)
[2022-07-29] MEDS: glipiZIDE 10 MG TAB PO SCH (08:27)
--- NOTE | 2022-07-29 11:16 | P.PN ---
Subjective his is a 76-year-old female who was recently admitted with atrial fibrillation also CHF acute exacerbation and being closely monitored. Cardiology is following patient is maintained on low-dose IV Lasix twice daily being adjusted. Kidney functions elevated although trending down. Patient continues with increased lethargic which is felt to be most likely a medication component. Multiple medical adjustments made and this was discussed with daughter at the bedside. PT/OT therapy to evaluate the patient. Encouraged oral intake. Recommend continue telemetry monitoring. Patient is lethargic but arousable answering some questions although falls asleep easily. Urine culture has finalized and was negative for any growth an MRI was negative of the brain. Potassium slightly low at 3.4 and will replace per protocol. WBC mildly elevated at 13.1 although patient is afebrile. 07/28/2022 Patient is seen in follow-up this morning currently sitting up in bed with daughter at the bedside. Patient was started on oral Lasix as kidney functions are elevated with cardiology following. Patient more alert today and complaining of abdominal pain as she reports she feels constipated and will add a fleets enema along with continuing bowel regimen. Patient is afebrile and denies chest pain or shortness of breath. Cardiac medications have been adjusted cardiology following closely. Patient have physical therapy evaluate the patient and recommend working with daily as patient continues to be significantly weak. Family at the bedside questioning if she will need rehab at a facility or can continue going home and having physical therapy as she does at the home setting. Family would like to take the patient home when stable and discharged. Recommend follow-up labs and will continue to monitor closely. 07/29/2022 Patient still feels generally weak, she still needs help to feed herself or to give her medication. She still complaining of from dysuria.also patient has suprapubic pain and tenderness No swallowing problems. She is on room air with no significant tachypnea at rest. She denies chest pain.(Total symptoms only) Looks like her crit is better controlled currently and she was started on liquids. Repeat chest x-ray today showing persistent left lower lobe infiltrate. Objective - Vital Signs Vital signs: Vital Signs Temp 98.1 F 07/29/22 07:53 Pulse 103 H 07/29/22 07:53 Resp 24 07/29/22 07:53 BP 106/74 07/29/22 07:53 Pulse Ox 100 11/24/22 07:53 FiO2 50 07/24/22 08:42 Intake & Output 07/28/22 07/29/22 07/29/22 18:59 06:59 18:59 Intake Total 360 250 Output Total 350 Balance 360 -350 250 Weight 101.5 kg Intake: IV 10 Invasive Line 1 10 Oral 360 240 Output: Urine 350 Other: Voiding Method Indwelling Catheter External Catheter External Catheter - Exam -GENERAL: The patient is alert and oriented x3, not in any acute distress. Wellgenerally weak HEENT: Pupils are round and equally reacting to light. EOMI. No scleral icterus. No conjunctival pallor. Normocephalic, atraumatic. No pharyngeal erythema. No thyromegaly. CARDIOVASCULAR: S1 and S2 present. No murmurs, rubs, or gallops. PULMONARY: Chest is clear to auscultation, no wheezing or crackles. -ABDOMEN: Soft,suprapubic tenderness, nondistended, normoactive bowel sounds. No palpable organomegaly. MUSCULOSKELETAL: No joint swelling or deformity. EXTREMITIES: No cyanosis, clubbing, or pedal edema. NEUROLOGICAL: Gross neurological examination did not reveal any focal deficits. SKIN: No rashes. no petechiae. - Labs CBC & Chem 7: 07/27/22 07:10 07/28/22 08:06 Labs: Abnormal Lab Results - Last 24 Hours (Table) 07/28/22 07/28/22 07/28/22 Range/Units 11:47 16:37 19:59 POC Glucose (mg/dL) 300 H 298 H 245 H (70-110) mg/dL Assessment and Plan Assessment: Gregoria ramirez with RVR, Was not on anticoagulation at home acute on chronic systolic CHF exacerbation, with reduced EF 20-25%. improving persistent dysuria and suprapubic symptoms, rule out UTI Generalized weakness Chronic right leg weakness, it happens after heparin fracture earlier this year per patient and daughter at bedside. Rule out stroke Chronic kidney disease stage IV Diabetes mellitus Hypertension History of rheumatoid arthritis History of UTI with ESBL bacteremia History of ataxia Plan: Continue with oral Lasix Recheck urinalysis and bladder scan Pulmonary and cardiology team on the case Labs and medication were reviewed.. Continue same treatment. Continue with symptomatic treatment. Resume home medication. Monitor labs and vitals. DVT and GI prophylaxis. Further recommendations as per clinical course of the patient DVT prophylaxis: admission specialist start the patient on anticoagulation Eliquis GI Prophylaxis: Pepcid PT/OT: Subacute rehab recommended however patient and family refused and wanted to go home with home care Prognosis is guarded.
[2022-07-29 12:17] LABS: Glucose,Whole Blood 175 mg/dL (70-110)
[2022-07-29 13:45] LABS: Appearance,Urine Turbid (Clear); Bacteria,Urine Many /hpf; Bilirubin,Urine Negative (Negative); Blood,Urine Moderate (Negative); Color,Urine Yellow; Glucose,Urine (UA) Negative (Negative); Ketones,Urine Negative (Negative); Leukocyte Esterase,Urine Large (Negative); Mucus,Urine Rare /hpf; Nitrite,Urine Positive (Negative); PH, Urine 5.5 (5.0-8.0); Protein,Urine 1+ (Negative); RBC,Urine 16 /hpf (0-5); Specific Gravity,Urine 1.015 (1.001-1.035); Urobilinogen,Urine <2.0 mg/dL (<2.0); WBC,Urine >182 /hpf (0-5)
--- NOTE | 2022-07-29 14:24 | P.PN ---
Subjective This is a 76-year-old female with a past medical history significant for hypertension, hyperlipidemia, and diabetes. Patient follows in the office with Dr. Chaudhari but has not been seen in the office since May 2021. We have been asked to see the patient in consultation for afib with RVR. Patient presented to the hospital with a chief complaint of weakness. Patient denied having any chest pain or pressure. She denied SOB. Patient was found to be in atrial fibrillation with RVR. Patient denies history of atrial fibrillation. Bedside telemetry on admission revealed multifocal atrial tachycardia with short bursts of atrial fibrillation. Her echocardiogram showed a severely decreased LV dysfunction with an EF of 20-25% and moderate pulmonary hypertension 07/28/2022 Patient seen and examined at bedside, no acute distress. She went back into A fib with RVR yesterday, her beta antonella was increased and continues to be in A fib with mild RVR this morning. She denies any chest pain or shortness of breath. Is lethargic this morning. She is on Eliquis for anticoagulation. Currently on IV Lasix 20mg Daily. sCr 1.57. 07/29 Patient seen and examined. Blood work is not resulted yet from today however yesterday's creatinine 1.57. Heart rates mainly in the 90s to low 100s and remains in atrial fibrillation. PHYSICAL EXAM: VITAL SIGNS: Reviewed. GENERAL: Frail, No acute distress. HEENT: Head is normocephalic.Neck supple. No JVD LUNGS: Respirations even and unlabored. Lungs mild crackles in bases auscultation bilaterally. HEART: Irregular rate and rhythm. S1 and S2 heard.Systolic murmur at apex. ABDOMEN: Soft. Nondistended. Nontender. EXTREMITIES: Normal range of motion. No clubbing or cyanosis. Peripheral pulses intact. 1+ bilateral lower extremity edema NEUROLOGIC: Awake and alert. ASSESSMENT: Generalized weakness New onset paroxysmal atrial fibrillation with RVR Cardiomyopathy, EF 20-25%, non-ischemic vs ischemic. Possibly tachycardia induced Multifocal atrial tachycardia Abnormal troponins, may be secondary to tachycardia, ACS unlikely Hypertension Hyperlipidemia Diabetes Hypokalemia PLAN: Continue increased dose of metoprolol succinate 100mg BID Continue Eliquis 5mg BID Monitor I/Os, daily weights, renal function and electrolytes Continue losartan 25 mg daily for heart failure Continue atorvastatin 40 mg daily Given likely tachycardia induced cardiomyopathy and many of symtpoms may be related to Afib, we will attempt rhythm management and start amiodarone. Further recommendations pending patient's course Objective - Vital Signs Vital signs: Vital Signs Temp 97.2 F L 07/29/22 11:27 Pulse 100 07/29/22 11:27 Resp 24 07/29/22 11:27 BP 145/79 07/29/22 11:27 Pulse Ox 100 07/29/22 11:27 FiO2 50 07/24/22 08:42 Intake & Output 07/28/22 07/29/22 07/29/22 18:59 06:59 18:59 Intake Total 360 250 Output Total 350 425 Balance 360 -350 -175 Weight 101.5 kg Intake: IV 10 Invasive Line 1 10 Oral 360 240 Output: Urine 350 425 Straight 425 Other: Voiding Method Indwelling Catheter External Catheter External Catheter - Labs CBC & Chem 7: 07/27/22 07:10 07/28/22 08:06 Labs: Abnormal Lab Results - Last 24 Hours (Table) 07/28/22 07/28/22 07/29/22 Range/Units 16:37 19:59 11:00 POC Glucose (mg/dL) 298 H 245 H (70-110) mg/dL Urine Appearance Turbid H (Clear) Urine Protein 1+ H (Negative) Urine Blood Moderate H (Negative) Urine Nitrite Positive H (Negative) Ur Leukocyte Esterase Large H (Negative) Urine RBC 16 H (0-5) /hpf Urine WBC >182 H (0-5) /hpf Urine WBC Clumps Many H (None) /hpf Urine Bacteria Many H (None) /hpf Urine Mucus Rare H (None) /hpf 07/29/22 Range/Units 11:55 POC Glucose (mg/dL) 175 H (70-110) mg/dL Urine Appearance (Clear) Urine Protein (Negative) Urine Blood (Negative) Urine Nitrite (Negative) Ur Leukocyte Esterase (Negative) Urine RBC (0-5) /hpf Urine WBC (0-5) /hpf Urine WBC Clumps (None) /hpf Urine Bacteria (None) /hpf Urine Mucus (None) /hpf
--- NOTE | 2022-07-29 15:38 | P.PN ---
Subjective Progress Note Date: 07/29/22 72-year-old female that we see today in room 375. The patient is currently on 5 L of oxygen. Not receiving any IV fluids. The patient's N-terminal proBNP was elevated, as was her troponin level. She apparently was admitted through the emergency room with a diagnosis of CHF, and atrial fibrillation. According to the ER dara, she presented with weakness, and inability to stand. She apparently fell at home. She was brought into the emergency room where she was evaluated. She was not eating or drinking properly. She apparently denied any fever or chills. Her admission diagnoses included new-onset atrial fibrillation, pulmonary edema, and rapid ventricular response. White count 11.1, hemoglobin 15.5, hematocrit 37.4, and platelet count 277,000. D-dimer was 0.76. Blood gases showed a pO2 of 98, pCO2 52, and a pH is 7.38. Sodium 144, potassium 3.8, chlorides 104, CO2 33, BUN 37, and creatinine 1.58. Troponins were 0.104 and 0.127. N-terminal proBNP was 4540. TSH was normal. A sug gestive of a urinary tract infection. Her chest x-ray done on July 24 shows evidence of fulminant heart failure. Progress note dated 07/25/2022. The patient was seen in consultation yesterday. Please see my note above. Currently, the patient's on 5 L of oxygen. Saturations are 100%. She's not receiving any IV fluids. She's probably a bit better today than she was yesterday. She came into the emergency department with CHF, and atrial fibrillation. No new laboratory data today other than a glucose of 133. On 07/26/2022, the patient is lethargic, arousable, communicating, the shortness of breath, she is on room air oxygen. Her white suppositive 13 point hemoglobin of 14 and a platelet count of 177. The electrolytes show a sodium of 146, BUN of 56 with a creatinine of 1.77 consistent with an acute kidney injury. Potassium levels at 3.6 and a floors. Troponins were positive at 0.1 respectively 2. ProBNP level was elevated at 4540. The patient was being subject diuretics. The patient was being treated with CHF and atrial fibrillation with rapid ventricular response. The patient currently is on Lasix 20 mg IV every 12 hours. The patient is also on long-term and coagulation with Eliquis 5 mg by mouth twice a day. The patient is taking metoprolol 50 mg by mouth twice a day for rate control also. Echocardiogram showed a ejection fraction of 20-25%, there was moderate to degree of concentric LVH. RV was normal and there was moderate degree of coronary hypertension. Rest of the valvular structures were essentially within normal limits and there was no segme ntal wall motion abnormalities. On today's evaluation of 07/27/2022, the patient is being seen for a follow-up. No major change in her condition. She is alert and awake. She is a slow in answering questions. She looks lethargic yet upon stimulation and upon interaction, the patient is able to answer questions appropriately and there is no evidence of any mental status change. The patient moldable 4 extremities. She has global generalized weakness in all 4 extremities. She does have some mouth breathing. She is being treated for CHF and the patient is being diuresed currently with IV Lasix 20 mg every 24 hours. The patient has been negative fluid balance. She was placed on 2 L of Oxymizer nasal cannula. Echo on the heart showed impaired LV function with an EF of around 20-25% and the patient continues to have significant amount of edema lower extremities bilaterally.The patient also has a moderate degree of pulmonary hypertension on her echocardiogram. The white cell cause of 15.4 with a hemoglobin 15.6, BUN is 54 with a creatinine of 1.4 and a sodium level of 143. Noted the renal function is improved compared to yesterday. Rest of the lites right are stable and the patient developed some mild metabolic alkalosis. Pro-calcitonin level at time of admission was 0.08. A repeat chest x-ray was done today and the patient continues to have diffuse bilateral pulmonary infiltrates and pleural effusion consistent with CHF. Pneumonia is felt to be less likely. On today's evaluation of 07/28/2022, the patient's is more interactive. She is showing slow but ongoing improvement. The patient remains on Lasix and the Lasix and this was to 40 g by mouth on a daily basis. She is in a negative fluid balance the lower extremity edema is improved. She remains on antic oagulation with Eliquis 5 mg by mouth twice a day. She is only on 2 L of oxygen by nasal cannula. Repeat chest x-ray was ordered for tomorrow. She is tolerating her diet. She is sluggish and this is probably close to her baseline. 07/29/2022, the patient's overall respiratory status is stable. There has been significant improvement and a chest x-ray findings with resolution of the previously described or edema. The patient is currently on oral Lasix 40 mg by mouth daily. Noted the patient was diuresed aggressively and there was improvement in the rest or status. Occasional cough. No significant sputum production. She is weak and debilitated and she may need outpatient placement for rehab. Otherwise, no other active pulmonary issues for now. She is tolerating her diet. She is communicating. She remains in atrial fibrillation. She is on amiodarone 5 mg by mouth twice a day and Eliquis 5 mg by mouth twice a day. She is also on Toprol-XL 100 mg 2 twice a day for rate control. She does underlying resting tremors and she is on prednisone for now. Objective - Vital Signs Vital signs: Vital Signs Temp 97.2 F L 07/29/22 11:27 Pulse 88 07/29/22 15:27 Resp 24 07/29/22 14:20 BP 145/79 07/29/22 11:27 Pulse Ox 100 07/29/22 11:27 FiO2 50 07/24/22 08:42 Intake & Output 07/28/22 07/29/22 07/29/22 18:59 06:59 18:59 Intake Total 360 378 Output Total 350 425 Balance 360 -350 -47 Weight 101.5 kg Intake: IV 20 Invasive Line 1 20 Oral 360 358 Output: Urine 350 425 Straight 425 Other: Voiding Method Indwelling Catheter External Catheter External Catheter - Exam No acute distress, . Patient very lethargic and somnolent. No major respiratory distress and the patient is currently on room air oxygen, with a pulse ox of 99%, looks quite lethargic and weak HEENT examination is grossly unremarkable. Neck supple. Full range of motion. No adenopathy thyromegaly or neck vein distention. Cardiovascular examination reveals regular rhythm rate. S1-S2 normal. No S3 or S4. No discernible murmur noted. Heart rate 82 bpm. Heart sounds are distant. Lungs reveal scattered bilateral rhonchi, and bilateral crackles. No wheezes. Breath sounds equal bilaterally. Saturations are 98%. Abdomen soft bowel sounds are heard. No masses or tenderness. Extremities are intact. No cyanosis clubbing and there is ongoing edema lower extremities bilaterally Skin is without rash or lesion. Neurologic examination is brief but nonfocal., There is generalized global weakness in all 4 oximetry in this patient. She has a weak cough. No neck stiffness. Alert and awake and following commands and answering questions appropriately. She is lethargic but very much responsive and appropriate upon in traction. - Labs CBC & Chem 7: 07/27/22 07:10 07/28/22 08:06 Labs: Abnormal Lab Results - Last 24 Hours (Table) 07/28/22 07/28/22 07/29/22 Range/Units 16:37 19:59 11:00 POC Glucose (mg/dL) 298 H 245 H (70-110) mg/dL Urine Appearance Turbid H (Clear) Urine Protein 1+ H (Negative) Urine Blood Moderate H (Negative) Urine Nitrite Positive H (Negative) Ur Leukocyte Esterase Large H (Negative) Urine RBC 16 H (0-5) /hpf Urine WBC >182 H (0-5) /hpf Urine WBC Clumps Many H (None) /hpf Urine Bacteria Many H (None) /hpf Urine Mucus Rare H (None) /hpf 07/29/22 Range/Units 11:55 POC Glucose (mg/dL) 175 H (70-110) mg/dL Urine Appearance (Clear) Urine Protein (Negative) Urine Blood (Negative) Urine Nitrite (Negative) Ur Leukocyte Esterase (Negative) Urine RBC (0-5) /hpf Urine WBC (0-5) /hpf Urine WBC Clumps (None) /hpf Urine Bacteria (None) /hpf Urine Mucus (None) /hpf Assessment and Plan Plan: Acute decompensated CHF, elevated proBNP level, systolic heart failure with an ejection fraction of 20-25%, clinically improved and the patient's chest x-ray shows improvement in the volume status Diffuse bilateral pulmonary infiltrates, most likely secondary to underlying CHF. Pneumonia is a felt to be less likely, follow-up chest x-ray from yesterday showed marked improvement in volume status is in complete resolution of the previous history of pulmonary infiltrates. New onset atrial fibrillation, with RVR, and resultant congestive heart failure. This morning, the patient remains in atrial fibrillation. Rate is controlled and the patient is on metoprolol and long-term and coagulation with Eliquis. The patient is also being diuresed. The patient remains on oral Lasix 40 mg by mouth daily Acute systolic heart failure with an ejection fraction of 20-25% Moderate to severe secondary pulmonary hypertension Acute kidney injury and the creatinine is gradually improving and the patient has developed some mild metabolic alkalosis, creatinine is at 1.57 from yesterday Mild hypernatremia, recovered Shortness of breath secondary to above, improving Acute hypoxic respiratory failure, improving and the patient is currently on room air oxygen. hyperlipidemia. History of hypertension. History of rheumatoid arthritis. History of kidney stones. Generalized global weakness with a negative MRI of the brain Suspect UTI Plan Follow-up chest x-ray from yesterday shows marked improvement Continue oral Lasix Reassured him that his of the chest x-ray Currently between room air oxygen 2 L Aspiration precautions Check urine cultures Continue Levemir insulin 40 units daily continue management of atrial fibrillation with a combination of metoprolol and amiodarone. The patient is also on Levaquin anticoagulation with Eliquis 5 mg by mouth daily Monitor urine output and fluid balance and the renal function and electrolytes Continue diuresis with close attention of the renal function the sodium level Clinically improved and the patient is currently on room air oxygen increase mobility possible UTI and the management of this will be left up to the medical team. Pulmonary critical services will sign off
[2022-07-29] MEDS: AMIODARONE 200 MG TAB PO SCH ×2 (16:07→23:10)
[2022-07-29 16:57] LABS: Glucose,Whole Blood 187 mg/dL (70-110)
[2022-07-29 20:20] LABS: Glucose,Whole Blood 301 mg/dL (70-110)
[2022-07-29] MEDS: PRIMIDONE 50 MG TAB PO SCH (22:02)
[2022-07-29] MEDS: CALCIUM CARBONATE 500 MG CHEWABLE PO SCH (22:03)
[2022-07-29] MEDS: INSULIN DETEMIR (LEVEMIR) 100 UNIT/ML SYR SQ SCH (22:05)
[2022-07-30] MEDS: ACETAMINOPHEN TAB 325 MG TAB PO PRN ×2 (04:30→12:36)
[2022-07-30 06:00] LABS: Glucose,Whole Blood 246 mg/dL (70-110)
[2022-07-30] MEDS: INSULIN ASPART (NovoLOG) 100 UNIT/ML VIAL SQ SCH ×4 (06:56→20:49)
[2022-07-30] MEDS: glipiZIDE 10 MG TAB PO SCH (06:56)
[2022-07-30] MEDS: DOCUSATE 100 MG CAP PO SCH ×2 (09:13→20:49)
[2022-07-30] MEDS: CYANOCOBALAMIN 500 MCG TAB PO SCH (09:13)
[2022-07-30] MEDS: APIXABAN 5 MG TAB PO SCH ×2 (09:13→20:49)
[2022-07-30] MEDS: ASPIRIN 81 MG PO SCH (09:14)
[2022-07-30] MEDS: allopurinoL 300 MG TAB PO SCH (09:14)
[2022-07-30] MEDS: LOSARTAN 25 MG TAB PO SCH (09:14)
[2022-07-30] MEDS: ATORVASTATIN 10 MG TAB PO SCH (09:14)
[2022-07-30] MEDS: AMIODARONE 200 MG TAB PO SCH ×2 (09:14→20:49)
[2022-07-30] MEDS: POTASSIUM CHLORIDE ER 20 MEQ TAB.ER PO SCH (09:14)
[2022-07-30] MEDS: METOPROLOL SUCCINATE (ER) 100 MG TAB.ER.24H PO SCH (09:14)
[2022-07-30] MEDS: FUROSEMIDE 40 MG TAB PO SCH (09:14)
[2022-07-30] MEDS: BETHANECHOL 10 MG TAB PO SCH (09:15)
[2022-07-30 09:18] LABS: Calcium 8.4 mg/dL (8.4-10.2); Potassium 4.1 mmol/L (3.5-5.1)
[2022-07-30 09:21] LABS: Basophils % (A) 0 %; Eosinophils # (A) 0.1 k/uL (0-0.7); Eosinophils % (A) 1 %; HCT 44.1 % (34.0-46.0); HGB 13.7 gm/dL (11.4-16.0); Hypochromasia Moderate; Lymphocytes # (A) 1.7 k/uL (1.0-4.8); Lymphocytes % (A) 15 %; MCHC 31.1 g/dL (31.0-37.0); MCV 96.3 fL (80.0-100.0); Mean Platelet Volume 9.5; Monocytes # (A) 0.7 k/uL (0-1.0); Monocytes % (A) 6 %; Neutrophils # (A) 8.7 k/uL (1.3-7.7); Neutrophils % (A) 77 %; Platelet Count 245 k/uL (150-450); RBC 4.58 m/uL (3.80-5.40); RDW 13.1 % (11.5-15.5); WBC 11.3 k/uL (3.8-10.6)
--- NOTE | 2022-07-30 10:50 | P.PN ---
Subjective his is a 76-year-old female who was recently admitted with atrial fibrillation also CHF acute exacerbation and being closely monitored. Cardiology is following patient is maintained on low-dose IV Lasix twice daily being adjusted. Kidney functions elevated although trending down. Patient continues with increased lethargic which is felt to be most likely a medication component. Multiple medical adjustments made and this was discussed with daughter at the bedside. PT/OT therapy to evaluate the patient. Encouraged oral intake. Recommend continue telemetry monitoring. Patient is lethargic but arousable answering some questions although falls asleep easily. Urine culture has finalized and was negative for any growth an MRI was negative of the brain. Potassium slightly low at 3.4 and will replace per protocol. WBC mildly elevated at 13.1 although patient is afebrile. 07/28/2022 Patient is seen in follow-up this morning currently sitting up in bed with daughter at the bedside. Patient was started on oral Lasix as kidney functions are elevated with cardiology following. Patient more alert today and complaining of abdominal pain as she reports she feels constipated and will add a fleets enema along with continuing bowel regimen. Patient is afebrile and denies chest pain or shortness of breath. Cardiac medications have been adjusted cardiology following closely. Patient have physical therapy evaluate the patient and recommend working with daily as patient continues to be significantly weak. Family at the bedside questioning if she will need rehab at a facility or can continue going home and having physical therapy as she does at the home setting. Family would like to take the patient home when stable and discharged. Recommend follow-up labs and will continue to monitor closely. 07/29/2022 Patient still feels generally weak, she still needs help to feed herself or to give her medication. She still complaining of from dysuria.also patient has suprapubic pain and tenderness No swallowing problems. She is on room air with no significant tachypnea at rest. She denies chest pain.(Total symptoms only) Looks like her crit is better controlled currently and she was started on liquids. Repeat chest x-ray today showing persistent left lower lobe infiltrate. 07/30/2022 Patient still feels generally weak Patient is most likely have UTI, urine culture is pending, urine analysis abnormal and patient started on ceftriaxone. The catheter insertion and Flomax for urinary retention more than 300 Reason stable and pulmonary send off Cardiology following the case closely and currently she is on metoprolol 100 mg and amiodarone 400 mg. Objective - Vital Signs Vital signs: Vital Signs Temp 97.6 F 07/30/22 09:11 Pulse 92 07/30/22 09:11 Resp 18 07/30/22 09:11 BP 110/79 07/30/22 09:11 Pulse Ox 96 07/30/22 09:11 FiO2 50 07/24/22 08:42 Intake & Output 07/29/22 07/30/22 07/30/22 18:59 06:59 18:59 Intake Total 496 237 Output Total 875 320 Balance -379 -83 Intake: IV 20 Invasive Line 1 20 Oral 476 237 Output: Urine 875 320 Straight 875 Uretheral (Huffman) 320 Other: Voiding Method External Catheter - Exam -GENERAL: The patient is alert and oriented x3, not in any acute distress. Wellgenerally weak HEENT: Pupils are round and equally reacting to light. EOMI. No scleral icterus. No conjunctival pallor. Normocephalic, atraumatic. No pharyngeal erythema. No thyromegaly. CARDIOVASCULAR: S1 and S2 present. No murmurs, rubs, or gallops. PULMONARY: Chest is clear to auscultation, no wheezing or crackles. -ABDOMEN: Soft,suprapubic tenderness, nondistended, normoactive bowel sounds. No palpable organomegaly. MUSCULOSKELETAL: No joint swelling or deformity. EXTREMITIES: No cyanosis, clubbing, or pedal edema. NEUROLOGICAL: Gross neurological examination did not reveal any focal deficits. SKIN: No rashes. no petechiae. - Labs CBC & Chem 7: 07/30/22 08:24 07/30/22 08:24 Labs: Abnormal Lab Results - Last 24 Hours (Table) 07/29/22 07/29/22 07/29/22 Range/Units 11:00 11:55 16:40 WBC (3.8-10.6) k/uL Neutrophils # (1.3-7.7) k/uL Carbon Dioxide (22-30) mmol/L BUN (7-17) mg/dL Creatinine (0.52-1.04) mg/dL Glucose (74-99) mg/dL POC Glucose (mg/dL) 175 H 187 H (70-110) mg/dL Urine Appearance Turbid H (Clear) Urine Protein 1+ H (Negative) Urine Blood Moderate H (Negative) Urine Nitrite Positive H (Negative) Ur Leukocyte Esterase Large H (Negative) Urine RBC 16 H (0-5) /hpf Urine WBC >182 H (0-5) /hpf Urine WBC Clumps Many H (None) /hpf Urine Bacteria Many H (None) /hpf Urine Mucus Rare H (None) /hpf 07/29/22 07/30/22 07/30/22 Range/Units 19:56 05:58 08:24 WBC 11.3 H (3.8-10.6) k/uL Neutrophils # 8.7 H (1.3-7.7) k/uL Carbon Dioxide (22-30) mmol/L BUN (7-17) mg/dL Creatinine (0.52-1.04) mg/dL Glucose (74-99) mg/dL POC Glucose (mg/dL) 301 H 246 H (70-110) mg/dL Urine Appearance (Clear) Urine Protein (Negative) Urine Blood (Negative) Urine Nitrite (Negative) Ur Leukocyte Esterase (Negative) Urine RBC (0-5) /hpf Urine WBC (0-5) /hpf Urine WBC Clumps (None) /hpf Urine Bacteria (None) /hpf Urine Mucus (None) /hpf 07/30/22 Range/Units 08:24 WBC (3.8-10.6) k/uL Neutrophils # (1.3-7.7) k/uL Carbon Dioxide 32 H (22-30) mmol/L BUN 68 H (7-17) mg/dL Creatinine 1.89 H (0.52-1.04) mg/dL Glucose 152 H (74-99) mg/dL POC Glucose (mg/dL) (70-110) mg/dL Urine Appearance (Clear) Urine Protein (Negative) Urine Blood (Negative) Urine Nitrite (Negative) Ur Leukocyte Esterase (Negative) Urine RBC (0-5) /hpf Urine WBC (0-5) /hpf Urine WBC Clumps (None) /hpf Urine Bacteria (None) /hpf Urine Mucus (None) /hpf Microbiology - Last 24 Hours (Table) 07/29/22 11:00 Urine Culture - Preliminary Urine,Voided Assessment and Plan Assessment: Acute urinary tract infection Urinary retention status post Huffman catheter placement A. fib with RVR, Was not on anticoagulation at home acute on chronic systolic CHF exacerbation, with reduced EF 20-25%. improving Generalized weakness Chronic right leg weakness, it happens after heparin fracture earlier this year per patient and daughter at bedside. Rule out stroke Chronic kidney disease stage IV Diabetes mellitus Hypertension History of rheumatoid arthritis History of UTI with ESBL bacteremia History of ataxia Plan: Continue with ceftriaxone. Continue with Huffman catheter Continue with oral Lasix Recheck urinalysis and bladder scan Pulmonary and cardiology team on the case Labs and medication were reviewed.. Continue same treatment. Continue with symptomatic treatment. Resume home medication. Monitor labs and vitals. DVT and GI prophylaxis. 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
[2022-07-30 12:01] LABS: Glucose,Whole Blood 168 mg/dL (70-110)
[2022-07-30] MEDS: polyethylene glycoL 3350 17 GM POWD.PACK PO PRN (12:37)
[2022-07-30] MEDS: TAMSULOSIN 0.4 MG CAP.ER.24H PO SCH (12:37)
--- NOTE | 2022-07-30 15:44 | P.PN ---
Subjective This is a 76-year-old female with a past medical history significant for hypertension, hyperlipidemia, and diabetes. Patient follows in the office with Dr. Chaudhari but has not been seen in the office since May 2021. We have been asked to see the patient in consultation for afib with RVR. Patient presented to the hospital with a chief complaint of weakness. Patient denied having any chest pain or pressure. She denied SOB. Patient was found to be in atrial fibrillation with RVR. Patient denies history of atrial fibrillation. Bedside telemetry on admission revealed multifocal atrial tachycardia with short bursts of atrial fibrillation. Her echocardiogram showed a severely decreased LV dysfunction with an EF of 20-25% and moderate pulmonary hypertension 07/28/2022 Patient seen and examined at bedside, no acute distress. She went back into A fib with RVR yesterday, her beta antonella was increased and continues to be in A fib with mild RVR this morning. She denies any chest pain or shortness of breath. Is lethargic this morning. She is on Eliquis for anticoagulation. Currently on IV Lasix 20mg Daily. sCr 1.57. 07/29 Patient seen and examined. Blood work is not resulted yet from today however yesterday's creatinine 1.57. Heart rates mainly in the 90s to low 100s and remains in atrial fibrillation. 07/30 Patient seen and examined. Creatinine up to 1.8 today with somewhat borderline blood pressures. Admits to continued fatigue. She does have cool extremities and appears to have 1+ lower extremity edema as well as crackles at bases. PHYSICAL EXAM: VITAL SIGNS: Reviewed. GENERAL: Frail, No acute distress. HEENT: Head is normocephalic.Neck supple. No JVD LUNGS: Respirations even and unlabored. Lungs mild crackles in bases auscultation bilaterally. HEART: Irregular rate and rhythm. S1 and S2 heard.Systolic murmur at apex. ABDOMEN: Soft. Nondistended. Nontender. EXTREMITIES: Normal range of motion. No clubbing or cyanosis. Peripheral pulses intact. 1+ bilateral lower extremity edema NEUROLOGIC: Awake and alert. ASSESSMENT: Generalized weakness New onset paroxysmal atrial fibrillation with RVR Cardiomyopathy, EF 20-25%, non-ischemic vs ischemic. Possibly tachycardia induced Multifocal atrial tachycardia Abnormal troponins, may be secondary to tachycardia, ACS unlikely Hypertension Hyperlipidemia Diabetes Hypokalemia Acute on chronic Systolic heart failure, concern of cardiogenic shock with cool extremities and still appearing volume overloaded with increase in Cr PLAN: Continue Eliquis 5mg BID Monitor I/Os, daily weights, renal function and electrolytes Continue losartan 25 mg daily for heart failure Continue atorvastatin 40 mg daily Concern of possible stage D heart failure with cool extremities and still appears volume overloaded. Cardiorenal syndrome and creatinine unfortunately has gotten worse with increased dose of metoprolol with metoprolol may be counterproductive if patient is having advanced heart failure. Still appears volume overloaded and we will place back on diuretics with Bumex and additionally decrease metoprolol to 50 twice a day. May consider dobutamine if creatinine not improving. May consider right heart catheterization. May consider BLAKE/cardioversion if still not improving. Continue with rhythm control with amiodarone Objective - Vital Signs Vital signs: Vital Signs Temp 97.6 F 07/30/22 12:38 Pulse 70 07/30/22 12:38 Resp 15 07/30/22 12:38 BP 97/68 07/30/22 12:38 Pulse Ox 95 07/30/22 12:38 FiO2 50 07/24/22 08:42 Intake & Output 07/29/22 07/30/22 07/30/22 18:59 06:59 18:59 Intake Total 496 237 60 Output Total 875 320 Balance -379 -83 60 Intake: IV 20 Invasive Line 1 20 Oral 476 237 60 Output: Urine 875 320 Straight 875 Uretheral (Huffman) 320 Other: Voiding Method External Catheter Indwelling Catheter - Labs CBC & Chem 7: 07/30/22 08:24 07/30/22 08:24 Labs: Abnormal Lab Results - Last 24 Hours (Table) 07/29/22 07/29/22 07/30/22 Range/Units 16:40 19:56 05:58 WBC (3.8-10.6) k/uL Neutrophils # (1.3-7.7) k/uL Carbon Dioxide (22-30) mmol/L BUN (7-17) mg/dL Creatinine (0.52-1.04) mg/dL Glucose (74-99) mg/dL POC Glucose (mg/dL) 187 H 301 H 246 H (70-110) mg/dL Procalcitonin (0.02-0.09) ng/mL 07/30/22 07/30/22 07/30/22 Range/Units 08:24 08:24 08:24 WBC 11.3 H (3.8-10.6) k/uL Neutrophils # 8.7 H (1.3-7.7) k/uL Carbon Dioxide 32 H (22-30) mmol/L BUN 68 H (7-17) mg/dL Creatinine 1.89 H (0.52-1.04) mg/dL Glucose 152 H (74-99) mg/dL POC Glucose (mg/dL) (70-110) mg/dL Procalcitonin 0.19 H (0.02-0.09) ng/mL 07/30/22 Range/Units 11:58 WBC (3.8-10.6) k/uL Neutrophils # (1.3-7.7) k/uL Carbon Dioxide (22-30) mmol/L BUN (7-17) mg/dL Creatinine (0.52-1.04) mg/dL Glucose (74-99) mg/dL POC Glucose (mg/dL) 168 H (70-110) mg/dL Procalcitonin (0.02-0.09) ng/mL Microbiology - Last 24 Hours (Table) 07/29/22 11:00 Urine Culture - Preliminary Urine,Voided Gram Neg Bacilli
[2022-07-30 16:40] LABS: Glucose,Whole Blood 290 mg/dL (70-110)
[2022-07-30] MEDS: BUMETANIDE 0.25 MG/ML 10 ML VIAL IV SCH (17:44)
--- NOTE | 2022-07-30 18:57 | CDI ---
Documentation Clarification Form Date: 07/30/2022 06:18:43 PM From: May Torres RN, CCDS Admit Date: 07/23/2022 10:21:00 AM Patient Name: Luisa Umaña Visit Number: [id number] Discharge Date: ATTENTION: The Clinical Documentation Specialists (CDI) and [facility] Coding Staff appreciate your assistance in clarifying documentation. Please respond to the clarification below the line at the bottom and electronically sign. The CDI & [facility] Coding staff will review the response and follow-up if needed. Please note: Queries are made part of the Legal Health Record. If you have any questions, please contact the author of this message via ITS. Dr. Aron James UTI was documented in the progress note starting on 07/29/22. Additional clarification regarding this diagnosis is requested. History/Risk Factors: UTI with ESBL bacteremia, Atrial Fibrillation, CKD Stage IV, Systolic CHF, Rheumatoid arthritis, Diabetes mellitus Clinical Indicators: 76-year-old female present with generalized weakness at home. In the H/P there is documentation that she thinks she might have a UTI on the day of admission 07/23/22 but she is not sure. 07/23 Voiding Method: External catheter, Bedpan, diaper/brief 07/23 Vital Signs: 165/88 110 18 97 95 % RA 07/23 WBC: 11.1 07/23 Urinalysis: Appearance-Cloudy Ur Leukocyte Esterase Large, Urine WBC 85, Urine Bacteria Moderate 07/29 Urinalysis: Appearance Turbid Ur Leukocyte Esterase Large, Urine WBC >185, Urine Bacteria Many 07/23 Urine Culture: No growth after 18 hours 07/29 Urine Culture: Preliminary, Gram Neg Bacilli Treatment Check Urinalysis and bladder scan Rocephin 1 GM IVPB 07/23 DC Rocephin 2 GM IVPB 07/30 Please clarify if there is an additional diagnosis associated with the UTI: [ ] UTI POA [ ] Other, please specify [ ] Unable to determine (Template Last Revised: November 2020) UTI [id number]
--- NOTE | 2022-07-30 19:33 | CDI ---
Documentation Clarification Form Date: 07/30/2022 07:30:34 PM From: May Torres RN, CCDS Admit Date: 07/23/2022 10:21:00 AM Patient Name: Luisa Campbell Visit Number: [id number] Discharge Date: ATTENTION: The Clinical Documentation Specialists (CDI) and [facility] Coding Staff appreciate your assistance in clarifying documentation. Please respond to the clarification below the line at the bottom and electronically sign. The CDI & [facility] Coding staff will review the response and follow-up if needed. Please note: Queries are made part of the Legal Health Record. If you have any questions, please contact the author of this message via ITS. Dr. Richey E Jacob 07/23/22 a coccyx pressure ulcer Stage 1 is documented by Nursing Wound Assessment, present on admission. Based on this information and the findings below, is there an additional diagnosis that is clinically appropriate for this patient? History/Risk Factors: UTI with ESBL bacteremia, Atrial Fibrillation, CKD Stage IV, Systolic CHF, Rheumatoid arthritis, Diabetes mellitus Clinical Indicators: [id number] present with generalized weakness. Location: Coccyx Wound description: Warm, Dry, Skin color Erythema Treatment: Assist with ADL'S Turn Q2 Hours/pressure off coccyx Wound care integrity monitoring Is there an additional diagnosis that is clinically appropriate for this patient? [ ] Coccyx Pressure Ulcer Stage 1 Present on Admission [ ] Other condition, please specify [ ] Unable to determine Clinical Definitions: Stage 1 Pressure Ulcer: intact skin, non-blanching redness of local area Stage 2 Pressure Ulcer: Partial thickness, loss of dermis, pink wound bed Stage 3 Pressure Ulcer: Full thickness tissue loss Stage 4 Pressure Ulcer: Full thickness tissue loss with exposed bone, tendon, or muscle. Unstageable pressure ulcer: Full thickness tissue loss in which the base of the ulcer is covered by slough (yellow, tidwell, tan, green or brown) and/or eschar (tidwell, brown or black) in the wound bed. (Template Last Revised: November 2020) Coccyx Pressure Ulcer Stage 1 Present on Admission MTDD
[2022-07-30 20:09] LABS: Glucose,Whole Blood 233 mg/dL (70-110)
[2022-07-30] MEDS: PRIMIDONE 50 MG TAB PO SCH (20:49)
[2022-07-30] MEDS: CALCIUM CARBONATE 500 MG CHEWABLE PO SCH (20:49)
[2022-07-30] MEDS: METOPROLOL SUCCINATE (ER) 50 MG TAB.ER.24H PO SCH (20:49)
[2022-07-30] MEDS: INSULIN DETEMIR (LEVEMIR) 100 UNIT/ML SYR SQ SCH (20:49)
[2022-07-30] MEDS: CHLORHEXIDINE GLUCONATE 15 ML CUP MUCOUS MEM SCH (23:08)
[2022-07-31] MEDS: BUMETANIDE 0.25 MG/ML 10 ML VIAL IV SCH ×2 (06:04→16:21)
[2022-07-31 06:12] LABS: Glucose,Whole Blood 71 mg/dL (70-110)
[2022-07-31 06:37] LABS: Glucose,Whole Blood 82 mg/dL (70-110)
[2022-07-31] MEDS: INSULIN ASPART (NovoLOG) 100 UNIT/ML VIAL SQ SCH ×4 (06:38→20:48)
[2022-07-31] MEDS: glipiZIDE 10 MG TAB PO SCH (06:40)
[2022-07-31] MEDS: ALBUTEROL NEBULIZED 2.5 MG/3 ML INHALATION PRN ×2 (08:06→19:19)
[2022-07-31] MEDS: DOCUSATE 100 MG CAP PO SCH ×2 (08:48→20:48)
[2022-07-31] MEDS: ASPIRIN 81 MG PO SCH (08:48)
[2022-07-31] MEDS: APIXABAN 5 MG TAB PO SCH ×2 (08:48→20:48)
[2022-07-31] MEDS: TAMSULOSIN 0.4 MG CAP.ER.24H PO SCH (08:48)
[2022-07-31] MEDS: ATORVASTATIN 10 MG TAB PO SCH (08:48)
[2022-07-31] MEDS: allopurinoL 300 MG TAB PO SCH (08:49)
[2022-07-31] MEDS: POTASSIUM CHLORIDE ER 20 MEQ TAB.ER PO SCH (08:49)
[2022-07-31] MEDS: AMIODARONE 200 MG TAB PO SCH ×2 (08:49→20:48)
[2022-07-31] MEDS: METOPROLOL SUCCINATE (ER) 50 MG TAB.ER.24H PO SCH ×2 (08:49→20:48)
[2022-07-31] MEDS: BETHANECHOL 10 MG TAB PO SCH (08:49)
[2022-07-31] MEDS: LOSARTAN 25 MG TAB PO SCH (08:49)
[2022-07-31] MEDS: CYANOCOBALAMIN 500 MCG TAB PO SCH (08:50)
[2022-07-31 09:25] LABS: Basophils % (A) 0 %; Eosinophils # (A) 0.1 k/uL (0-0.7); Eosinophils % (A) 1 %; HCT 41.8 % (34.0-46.0); HGB 13.3 gm/dL (11.4-16.0); Hypochromasia Slight; Lymphocytes # (A) 1.2 k/uL (1.0-4.8); Lymphocytes % (A) 13 %; MCH 30.2 pg (25.0-35.0); MCHC 31.8 g/dL (31.0-37.0); MCV 95.1 fL (80.0-100.0); Mean Platelet Volume 9.3; Monocytes # (A) 0.7 k/uL (0-1.0); Monocytes % (A) 7 %; Neutrophils # (A) 7.5 k/uL (1.3-7.7); Neutrophils % (A) 78 %; Platelet Count 220 k/uL (150-450); RBC 4.39 m/uL (3.80-5.40); RDW 12.7 % (11.5-15.5); WBC 9.6 k/uL (3.8-10.6)
[2022-07-31 09:35] LABS: Potassium 3.7 mmol/L (3.5-5.1)
[2022-07-31] MEDS: CHLORHEXIDINE GLUCONATE 15 ML CUP MUCOUS MEM SCH ×2 (10:33→20:47)
--- NOTE | 2022-07-31 10:58 | P.PN ---
Subjective his is a 76-year-old female who was recently admitted with atrial fibrillation also CHF acute exacerbation and being closely monitored. Cardiology is following patient is maintained on low-dose IV Lasix twice daily being adjusted. Kidney functions elevated although trending down. Patient continues with increased lethargic which is felt to be most likely a medication component. Multiple medical adjustments made and this was discussed with daughter at the bedside. PT/OT therapy to evaluate the patient. Encouraged oral intake. Recommend continue telemetry monitoring. Patient is lethargic but arousable answering some questions although falls asleep easily. Urine culture has finalized and was negative for any growth an MRI was negative of the brain. Potassium slightly low at 3.4 and will replace per protocol. WBC mildly elevated at 13.1 although patient is afebrile. 07/28/2022 Patient is seen in follow-up this morning currently sitting up in bed with daughter at the bedside. Patient was started on oral Lasix as kidney functions are elevated with cardiology following. Patient more alert today and complaining of abdominal pain as she reports she feels constipated and will add a fleets enema along with continuing bowel regimen. Patient is afebrile and denies chest pain or shortness of breath. Cardiac medications have been adjusted cardiology following closely. Patient have physical therapy evaluate the patient and recommend working with daily as patient continues to be significantly weak. Family at the bedside questioning if she will need rehab at a facility or can continue going home and having physical therapy as she does at the home setting. Family would like to take the patient home when stable and discharged. Recommend follow-up labs and will continue to monitor closely. 07/29/2022 Patient still feels generally weak, she still needs help to feed herself or to give her medication. She still complaining of from dysuria.also patient has suprapubic pain and tenderness No swallowing problems. She is on room air with no significant tachypnea at rest. She denies chest pain.(Total symptoms only) Looks like her crit is better controlled currently and she was started on liquids. Repeat chest x-ray today showing persistent left lower lobe infiltrate. 07/30/2022 Patient still feels generally weak Patient is most likely have UTI, urine culture is pending, urine analysis abnormal and patient started on ceftriaxone. The catheter insertion and Flomax for urinary retention more than 300 Reason stable and pulmonary send off Cardiology following the case closely and currently she is on metoprolol 100 mg and amiodarone 400 mg. 07/31/22 patient still lethargic for her UTI, culture, sensitivity colitis. Continue with ceftriaxone Also patient with fluid overload and started on Bumex IV. Patient metoprolol dose floor to 50 mg twice a day. Vitals stable. Creatinine trending down to 1.6. Patient remains on Eliquis 5 mg which is started for patient A. fib and RVR present on admission. Objective - Vital Signs Vital signs: Vital Signs Temp 98.0 F 07/31/22 08:46 Pulse 91 07/31/22 08:46 Resp 18 07/31/22 08:46 BP 105/66 07/31/22 08:46 Pulse Ox 96 07/31/22 08:46 FiO2 21 07/30/22 19:22 Intake & Output 07/30/22 07/31/22 07/31/22 18:59 06:59 18:59 Intake Total 420 Output Total 475 500 500 Balance -55 -500 -500 Intake: Oral 420 Output: Urine 475 500 500 Other: Voiding Method Indwelling Catheter Indwelling Catheter - Exam -GENERAL: The patient is alert and oriented x3, not in any acute distress. Wellgenerally weak HEENT: Pupils are round and equally reacting to light. EOMI. No scleral icterus. No conjunctival pallor. Normocephalic, atraumatic. No pharyngeal erythema. No thyromegaly. CARDIOVASCULAR: S1 and S2 present. No murmurs, rubs, or gallops. PULMONARY: Chest is clear to auscultation, no wheezing or crackles. -ABDOMEN: Soft,suprapubic tenderness, nondistended, normoactive bowel sounds. No palpable organomegaly. MUSCULOSKELETAL: No joint swelling or deformity. EXTREMITIES: No cyanosis, clubbing, or pedal edema. NEUROLOGICAL: Gross neurological examination did not reveal any focal deficits. SKIN: No rashes. no petechiae. - Labs CBC & Chem 7: 07/31/22 08:42 07/31/22 08:42 Labs: Abnormal Lab Results - Last 24 Hours (Table) 07/30/22 07/30/22 07/30/22 Range/Units 08:24 11:58 16:38 BUN (7-17) mg/dL Creatinine (0.52-1.04) mg/dL POC Glucose (mg/dL) 168 H 290 H (70-110) mg/dL Calcium (8.4-10.2) mg/dL Procalcitonin 0.19 H (0.02-0.09) ng/mL 07/30/22 07/31/22 Range/Units 20:08 08:42 BUN 70 H (7-17) mg/dL Creatinine 1.69 H (0.52-1.04) mg/dL POC Glucose (mg/dL) 233 H (70-110) mg/dL Calcium 8.0 L (8.4-10.2) mg/dL Procalcitonin (0.02-0.09) ng/mL Microbiology - Last 24 Hours (Table) 07/29/22 11:00 Urine Culture - Final Urine,Voided Escherichia coli Assessment and Plan Assessment: Acute urinary tract infection Urinary retention status post Huffman catheter placement A. fib with RVR, Was not on anticoagulation at home acute on chronic systolic CHF exacerbation, with reduced EF 20-25%. improving urinary retention. Status post Huffman catheter Generalized weakness Chronic right leg weakness, it happens after heparin fracture earlier this year per patient and daughter at bedside. Rule out stroke Chronic kidney disease stage IV Diabetes mellitus Hypertension History of rheumatoid arthritis History of UTI with ESBL bacteremia History of ataxia Plan: Continue with ceftriaxone. Continue with Huffman catheter Continue with IV Bumex continue with Hufmfan catheter Pulmonary and cardiology team on the case Labs and medication were reviewed.. Continue same treatment. Continue with symptomatic treatment. Resume home medication. Monitor labs and vitals. DVT and GI prophylaxis. 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
[2022-07-31 11:51] LABS: Glucose,Whole Blood 217 mg/dL (70-110)
[2022-07-31] MEDS: polyethylene glycoL 3350 17 GM POWD.PACK PO PRN (12:59)
--- NOTE | 2022-07-31 16:40 | P.PN ---
Subjective This is a 76-year-old female with a past medical history significant for hypertension, hyperlipidemia, and diabetes. Patient follows in the office with Dr. Chaudhari but has not been seen in the office since May 2021. We have been asked to see the patient in consultation for afib with RVR. Patient presented to the hospital with a chief complaint of weakness. Patient denied having any chest pain or pressure. She denied SOB. Patient was found to be in atrial fibrillation with RVR. Patient denies history of atrial fibrillation. Bedside telemetry on admission revealed multifocal atrial tachycardia with short bursts of atrial fibrillation. Her echocardiogram showed a severely decreased LV dysfunction with an EF of 20-25% and moderate pulmonary hypertension 07/28/2022 Patient seen and examined at bedside, no acute distress. She went back into A fib with RVR yesterday, her beta antonella was increased and continues to be in A fib with mild RVR this morning. She denies any chest pain or shortness of breath. Is lethargic this morning. She is on Eliquis for anticoagulation. Currently on IV Lasix 20mg Daily. sCr 1.57. 07/29 Patient seen and examined. Blood work is not resulted yet from today however yesterday's creatinine 1.57. Heart rates mainly in the 90s to low 100s and remains in atrial fibrillation. 07/30 Patient seen and examined. Creatinine up to 1.8 today with somewhat borderline blood pressures. Admits to continued fatigue. She does have cool extremities and appears to have 1+ lower extremity edema as well as crackles at bases. 07/31 Patient seen and examined. Metoprolol was decreased back down to 50 mg twice a day and patient placed back on diuretics with Bumex. Concern of advanced heart failure. She has had gout in urine output and creatinine improved to 1.6. Denies any chest pain or pressure. PHYSICAL EXAM: VITAL SIGNS: Reviewed. GENERAL: Frail, No acute distress. HEENT: Head is normocephalic.Neck supple. No JVD LUNGS: Respirations even and unlabored. Lungs mild crackles in bases auscultation bilaterally. HEART: Irregular rate and rhythm. S1 and S2 heard.Systolic murmur at apex. ABDOMEN: Soft. Nondistended. Nontender. EXTREMITIES: Normal range of motion. No clubbing or cyanosis. Peripheral pulses intact. 1+ bilateral lower extremity edema NEUROLOGIC: Awake and alert. ASSESSMENT: Generalized weakness New onset paroxysmal atrial fibrillation with RVR Cardiomyopathy, EF 20-25%, non-ischemic vs ischemic. Possibly tachycardia induced Multifocal atrial tachycardia Abnormal troponins, may be secondary to tachycardia, ACS unlikely Hypertension Hyperlipidemia Diabetes Hypokalemia Acute on chronic Systolic heart failure, concern of cardiogenic shock with cool extremities and still appearing volume overloaded with increase in Cr PLAN: Continue Eliquis 5mg BID Monitor I/Os, daily weights, renal function and electrolytes Continue losartan 25 mg daily for heart failure Continue atorvastatin 40 mg daily Extremities warm her today and kidney function improved to 1.6 with good urine output. Lungs sound clear without significant crackles. Decreased dose of metoprolol however A. fib, controlled with heart rates in the 80s to 90s. Continue with current regimen and discussed with family possible cardioversion which usually be done once loaded with amiodarone on an outpatient basis in the next 1-2 weeks. One more day of diuretics with Bumex and possibly transition to orals tomorrow. Objective - Vital Signs Vital signs: Vital Signs Temp 97.9 F 07/31/22 12:48 Pulse 95 07/31/22 12:48 Resp 18 07/31/22 12:48 BP 106/67 07/31/22 12:48 Pulse Ox 96 07/31/22 12:48 FiO2 21 07/30/22 19:22 Intake & Output 07/30/22 07/31/22 07/31/22 18:59 06:59 18:59 Intake Total 420 Output Total 475 500 825 Balance -55 500 825 Intake: Oral 420 Output: Urine 475 500 825 Other: Voiding Method Indwelling Catheter Indwelling Catheter Indwelling Catheter # Bowel Movements 1 - Labs CBC & Chem 7: 07/31/22 08:42 07/31/22 08:42 Labs: Abnormal Lab Results - Last 24 Hours (Table) 07/30/22 07/30/22 07/31/22 Range/Units 16:38 20:08 08:42 BUN 70 H (7-17) mg/dL Creatinine 1.69 H (0.52-1.04) mg/dL POC Glucose (mg/dL) 290 H 233 H (70-110) mg/dL Calcium 8.0 L (8.4-10.2) mg/dL 07/31/22 Range/Units 11:49 BUN (7-17) mg/dL Creatinine (0.52-1.04) mg/dL POC Glucose (mg/dL) 217 H (70-110) mg/dL Calcium (8.4-10.2) mg/dL Microbiology - Last 24 Hours (Table) 07/29/22 11:00 Urine Culture - Final Urine,Voided Escherichia coli
[2022-07-31 17:02] LABS: Glucose,Whole Blood 289 mg/dL (70-110)
[2022-07-31 19:52] LABS: Glucose,Whole Blood 285 mg/dL (70-110)
[2022-07-31] MEDS: INSULIN DETEMIR (LEVEMIR) 100 UNIT/ML SYR SQ SCH (20:47)
[2022-07-31] MEDS: CALCIUM CARBONATE 500 MG CHEWABLE PO SCH (20:48)
[2022-07-31] MEDS: PRIMIDONE 50 MG TAB PO SCH (20:48)
[2022-08-01 00:48] LABS: Calcium 8.4 mg/dL (8.4-10.2); Magnesium 2.1 mg/dL (1.6-2.3); Potassium 3.8 mmol/L (3.5-5.1)
[2022-08-01] MEDS ORDERED: POTASSIUM CHLORIDE ER 20 MEQ TAB.ER PO SCH (01:00)
[2022-08-01] MEDS: ACETAMINOPHEN TAB 325 MG TAB PO PRN ×2 (02:03→20:56)
[2022-08-01] MEDS: BUMETANIDE 0.25 MG/ML 10 ML VIAL IV SCH (04:34)
[2022-08-01 06:25] LABS: Glucose,Whole Blood 70 mg/dL (70-110)
[2022-08-01] MEDS: INSULIN ASPART (NovoLOG) 100 UNIT/ML VIAL SQ SCH ×4 (06:48→20:57)
[2022-08-01] MEDS: glipiZIDE 10 MG TAB PO SCH (06:48)
[2022-08-01 06:49] LABS: Glucose,Whole Blood 98 mg/dL (70-110)
[2022-08-01] MEDS: ALBUTEROL NEBULIZED 2.5 MG/3 ML INHALATION PRN ×2 (07:35→19:46)
[2022-08-01] MEDS: allopurinoL 300 MG TAB PO SCH (08:35)
[2022-08-01] MEDS: DOCUSATE 100 MG CAP PO SCH ×2 (08:35→20:56)
[2022-08-01] MEDS: ATORVASTATIN 10 MG TAB PO SCH (08:35)
[2022-08-01] MEDS: BETHANECHOL 10 MG TAB PO SCH (08:35)
[2022-08-01] MEDS: APIXABAN 5 MG TAB PO SCH ×2 (08:35→20:57)
[2022-08-01] MEDS: LOSARTAN 25 MG TAB PO SCH (08:35)
[2022-08-01] MEDS: AMIODARONE 200 MG TAB PO SCH ×2 (08:35→20:56)
[2022-08-01] MEDS: ASPIRIN 81 MG PO SCH (08:35)
[2022-08-01] MEDS: TAMSULOSIN 0.4 MG CAP.ER.24H PO SCH (08:35)
[2022-08-01] MEDS: METOPROLOL SUCCINATE (ER) 50 MG TAB.ER.24H PO SCH (08:35)
[2022-08-01] MEDS: POTASSIUM CHLORIDE ER 20 MEQ TAB.ER PO SCH (08:35)
[2022-08-01] MEDS: CHLORHEXIDINE GLUCONATE 15 ML CUP MUCOUS MEM SCH ×2 (08:36→20:41)
[2022-08-01] MEDS: CYANOCOBALAMIN 500 MCG TAB PO SCH (08:36)
[2022-08-01 08:57] LABS: Calcium 8.3 mg/dL (8.4-10.2); Magnesium 2.1 mg/dL (1.6-2.3); Potassium 4.4 mmol/L (3.5-5.1)
[2022-08-01 09:05] LABS: Basophils % (A) 0 %; Eosinophils # (A) 0.1 k/uL (0-0.7); Eosinophils % (A) 1 %; HCT 42.5 % (34.0-46.0); HGB 13.4 gm/dL (11.4-16.0); Hypochromasia Slight; Lymphocytes # (A) 1.5 k/uL (1.0-4.8); Lymphocytes % (A) 16 %; MCHC 31.6 g/dL (31.0-37.0); Mean Platelet Volume 9.4; Monocytes # (A) 0.8 k/uL (0-1.0); Monocytes % (A) 9 %; Neutrophils # (A) 6.8 k/uL (1.3-7.7); Neutrophils % (A) 72 %; Platelet Count 244 k/uL (150-450); RBC 4.47 m/uL (3.80-5.40); RDW 13.1 % (11.5-15.5); WBC 9.5 k/uL (3.8-10.6)
--- NOTE | 2022-08-01 09:22 | P.PN ---
Subjective his is a 76-year-old female who was recently admitted with atrial fibrillation also CHF acute exacerbation and being closely monitored. Cardiology is following patient is maintained on low-dose IV Lasix twice daily being adjusted. Kidney functions elevated although trending down. Patient continues with increased lethargic which is felt to be most likely a medication component. Multiple medical adjustments made and this was discussed with daughter at the bedside. PT/OT therapy to evaluate the patient. Encouraged oral intake. Recommend continue telemetry monitoring. Patient is lethargic but arousable answering some questions although falls asleep easily. Urine culture has finalized and was negative for any growth an MRI was negative of the brain. Potassium slightly low at 3.4 and will replace per protocol. WBC mildly elevated at 13.1 although patient is afebrile. 07/28/2022 Patient is seen in follow-up this morning currently sitting up in bed with daughter at the bedside. Patient was started on oral Lasix as kidney functions are elevated with cardiology following. Patient more alert today and complaining of abdominal pain as she reports she feels constipated and will add a fleets enema along with continuing bowel regimen. Patient is afebrile and denies chest pain or shortness of breath. Cardiac medications have been adjusted cardiology following closely. Patient have physical therapy evaluate the patient and recommend working with daily as patient continues to be significantly weak. Family at the bedside questioning if she will need rehab at a facility or can continue going home and having physical therapy as she does at the home setting. Family would like to take the patient home when stable and discharged. Recommend follow-up labs and will continue to monitor closely. 07/29/2022 Patient still feels generally weak, she still needs help to feed herself or to give her medication. She still complaining of from dysuria.also patient has suprapubic pain and tenderness No swallowing problems. She is on room air with no significant tachypnea at rest. She denies chest pain.(Total symptoms only) Looks like her crit is better controlled currently and she was started on liquids. Repeat chest x-ray today showing persistent left lower lobe infiltrate. 07/30/2022 Patient still feels generally weak Patient is most likely have UTI, urine culture is pending, urine analysis abnormal and patient started on ceftriaxone. The catheter insertion and Flomax for urinary retention more than 300 Reason stable and pulmonary send off Cardiology following the case closely and currently she is on metoprolol 100 mg and amiodarone 400 mg. 07/31/22 patient still lethargic for her UTI, culture, sensitivity colitis. Continue with ceftriaxone Also patient with fluid overload and started on Bumex IV. Patient metoprolol dose floor to 50 mg twice a day. Vitals stable. Creatinine trending down to 1.6. Patient remains on Eliquis 5 mg which is started for patient A. fib and RVR present on admission. 08/01/2022 patient urinary tract infection is improving on ceftriaxone for sensitive E. coli on urine culture, patient weakness is also improvement as well as vitals. Patient is afebrile. Huffman catheter replaced. Less suprapubic tenderness. 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 She still have painful red tongue, chlorhexidine didn't help much so we will add oral nystatin although there is no significant thrush but still fungal infection is suspected Objective - Vital Signs Vital signs: Vital Signs Temp 98.0 F 08/01/22 08:29 Pulse 63 08/01/22 08:29 Resp 18 08/01/22 08:29 BP 98/62 08/01/22 08:29 Pulse Ox 96 08/01/22 08:29 FiO2 21 07/30/22 19:22 Intake & Output 07/31/22 08/01/22 08/01/22 18:59 06:59 18:59 Intake Total 118 Output Total 825 300 Balance -825 -300 118 Intake: Oral 118 Output: Urine 825 300 Other: Voiding Method Indwelling Catheter Indwelling Catheter # Bowel Movements 1 - Exam -GENERAL: The patient is alert and oriented x3, not in any acute distress. Wellgenerally weak HEENT: Pupils are round and equally reacting to light. EOMI. No scleral icterus. No conjunctival pallor. Normocephalic, atraumatic. No pharyngeal erythema. No thyromegaly. CARDIOVASCULAR: S1 and S2 present. No murmurs, rubs, or gallops. PULMONARY: Chest is clear to auscultation, no wheezing or crackles. -ABDOMEN: Soft,suprapubic tenderness, nondistended, normoactive bowel sounds. No palpable organomegaly. MUSCULOSKELETAL: No joint swelling or deformity. EXTREMITIES: No cyanosis, clubbing, or pedal edema. NEUROLOGICAL: Gross neurological examination did not reveal any focal deficits. SKIN: No rashes. no petechiae. - Labs CBC & Chem 7: 08/01/22 08:13 08/01/22 08:13 Labs: Abnormal Lab Results - Last 24 Hours (Table) 07/31/22 07/31/22 07/31/22 Range/Units 08:42 11:49 17:01 Carbon Dioxide (22-30) mmol/L BUN 70 H (7-17) mg/dL Creatinine 1.69 H (0.52-1.04) mg/dL Glucose (74-99) mg/dL POC Glucose (mg/dL) 217 H 289 H (70-110) mg/dL Calcium 8.0 L (8.4-10.2) mg/dL 07/31/22 08/01/22 08/01/22 Range/Units 19:50 00:21 08:13 Carbon Dioxide 31 H (22-30) mmol/L BUN 75 H 73 H (7-17) mg/dL Creatinine 1.76 H 1.91 H (0.52-1.04) mg/dL Glucose 185 H (74-99) mg/dL POC Glucose (mg/dL) 285 H (70-110) mg/dL Calcium 8.3 L (8.4-10.2) mg/dL Microbiology - Last 24 Hours (Table) 07/29/22 11:00 Urine Culture - Final Urine,Voided Escherichia coli Assessment and Plan Assessment: Acute urinary tract infection Urinary retention status post Huffman catheter placement A. fib with RVR, Was not on anticoagulation at home acute on chronic systolic CHF exacerbation, with reduced EF 20-25%. improving urinary retention. Status post Huffman catheter Generalized weakness Chronic right leg weakness, it happens after heparin fracture earlier this year per patient and daughter at bedside. Rule out stroke Chronic kidney disease stage IV Diabetes mellitus Hypertension History of rheumatoid arthritis History of UTI with ESBL bacteremia History of ataxia Plan: Continue with ceftriaxone. Continue with Huffman catheter Continue with IV Bumex continue with Huffman catheter Pulmonary and cardiology team on the case Labs and medication were reviewed.. Continue same treatment. Continue with symptomatic treatment. Resume home medication. Monitor labs and vitals. DVT and GI prophylaxis. 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
[2022-08-01 11:42] LABS: Glucose,Whole Blood 106 mg/dL (70-110)
[2022-08-01] MEDS: NYSTATIN 100,000 UNIT/ML SUSP 500,000 UNIT/5 ML CUP PO SCH ×4 (12:10→20:57)
--- NOTE | 2022-08-01 12:47 | P.PN ---
Subjective This is a 76-year-old female with a past medical history significant for hypertension, hyperlipidemia, and diabetes. Patient follows in the office with Dr. Chaudhari but has not been seen in the office since May 2021. We have been asked to see the patient in consultation for afib with RVR. Patient presented to the hospital with a chief complaint of weakness. Patient denied having any chest pain or pressure. She denied SOB. Patient was found to be in atrial fibrillation with RVR. Patient denies history of atrial fibrillation. Bedside telemetry on admission revealed multifocal atrial tachycardia with short bursts of atrial fibrillation. Her echocardiogram showed a severely decreased LV dysfunction with an EF of 20-25% and moderate pulmonary hypertension 07/28/2022 Patient seen and examined at bedside, no acute distress. She went back into A fib with RVR yesterday, her beta antonella was increased and continues to be in A fib with mild RVR this morning. She denies any chest pain or shortness of breath. Is lethargic this morning. She is on Eliquis for anticoagulation. Currently on IV Lasix 20mg Daily. sCr 1.57. 07/29 Patient seen and examined. Blood work is not resulted yet from today however yesterday's creatinine 1.57. Heart rates mainly in the 90s to low 100s and remains in atrial fibrillation. 07/30 Patient seen and examined. Creatinine up to 1.8 today with somewhat borderline blood pressures. Admits to continued fatigue. She does have cool extremities and appears to have 1+ lower extremity edema as well as crackles at bases. 07/31 Patient seen and examined. Metoprolol was decreased back down to 50 mg twice a day and patient placed back on diuretics with Bumex. Concern of advanced heart failure. She has had gout in urine output and creatinine improved to 1.6. Denies any chest pain or pressure. 08/01 Patient seen and examined. Patient converted to normal sinus rhythm at around 10:30 AM today. Heart rates prior to that were fairly well controlled in the 80s to 90s. She states she is still having some mild dyspnea however lower extremity edema additionally improving. No chest pain or pressure. Creatinine mildly increased up to 1.9. PHYSICAL EXAM: VITAL SIGNS: Reviewed. GENERAL: Frail, No acute distress. HEENT: Head is normocephalic.Neck supple. No JVD LUNGS: Respirations even and unlabored. Lungs mild crackles in bases auscultation bilaterally. HEART: Irregular rate and rhythm. S1 and S2 heard.Systolic murmur at apex. ABDOMEN: Soft. Nondistended. Nontender. EXTREMITIES: Normal range of motion. No clubbing or cyanosis. Peripheral pulses intact. 1+ bilateral lower extremity edema NEUROLOGIC: Awake and alert. ASSESSMENT: Generalized weakness New onset paroxysmal atrial fibrillation with RVR Cardiomyopathy, EF 20-25%, non-ischemic vs ischemic. Possibly tachycardia induced Multifocal atrial tachycardia Abnormal troponins, may be secondary to tachycardia, ACS unlikely Hypertension Hyperlipidemia Diabetes Hypokalemia Acute on chronic Systolic heart failure, concern of cardiogenic shock with cool extremities and still appearing volume overloaded with increase in Cr PLAN: Continue Eliquis 5mg BID Monitor I/Os, daily weights, renal function and electrolytes Continue losartan 25 mg daily for heart failure Continue atorvastatin 40 mg daily Continue Amio for rhythm control and currently sinus Mild increase in Cr noted. Change to oral Bumex. Possible DC in 24-48 hrs Objective - Vital Signs Vital signs: Vital Signs Temp 98.2 F 08/01/22 12:09 Pulse 73 08/01/22 12:09 Resp 19 08/01/22 12:09 BP 112/65 08/01/22 12:09 Pulse Ox 95 08/01/22 12:09 FiO2 21 07/30/22 19:22 Intake & Output 07/31/22 08/01/22 08/01/22 18:59 06:59 18:59 Intake Total 118 Output Total 825 300 600 Balance -825 -300 -482 Intake: Oral 118 Output: Urine 825 300 600 Other: Voiding Method Indwelling Catheter Indwelling Catheter Indwelling Catheter # Bowel Movements 1 - Labs CBC & Chem 7: 08/01/22 08:13 08/01/22 08:13 Labs: Abnormal Lab Results - Last 24 Hours (Table) 07/31/22 07/31/22 08/01/22 Range/Units 17:01 19:50 00:21 Carbon Dioxide (22-30) mmol/L BUN 75 H (7-17) mg/dL Creatinine 1.76 H (0.52-1.04) mg/dL Glucose 185 H (74-99) mg/dL POC Glucose (mg/dL) 289 H 285 H (70-110) mg/dL Calcium (8.4-10.2) mg/dL 08/01/22 Range/Units 08:13 Carbon Dioxide 31 H (22-30) mmol/L BUN 73 H (7-17) mg/dL Creatinine 1.91 H (0.52-1.04) mg/dL Glucose (74-99) mg/dL POC Glucose (mg/dL) (70-110) mg/dL Calcium 8.3 L (8.4-10.2) mg/dL Microbiology - Last 24 Hours (Table) 07/29/22 11:00 Urine Culture - Final Urine,Voided Escherichia coli
[2022-08-01 16:32] LABS: Glucose,Whole Blood 187 mg/dL (70-110)
[2022-08-01] MEDS: BUMETANIDE 1 MG TAB PO SCH (17:30)
[2022-08-01 20:07] LABS: Glucose,Whole Blood 261 mg/dL (70-110)
[2022-08-01] MEDS: METOPROLOL SUCCINATE (ER) 25 MG TAB.ER.24H PO SCH (20:56)
[2022-08-01] MEDS: PRIMIDONE 50 MG TAB PO SCH (20:56)
[2022-08-01] MEDS: CALCIUM CARBONATE 500 MG CHEWABLE PO SCH (20:56)
[2022-08-01] MEDS: INSULIN DETEMIR (LEVEMIR) 100 UNIT/ML SYR SQ SCH (20:57)
[2022-08-02 06:07] LABS: Glucose,Whole Blood 139 mg/dL (70-110)
[2022-08-02] MEDS: INSULIN ASPART (NovoLOG) 100 UNIT/ML VIAL SQ SCH ×4 (06:19→20:23)
[2022-08-02] MEDS: glipiZIDE 10 MG TAB PO SCH (06:33)
[2022-08-02] MEDS: ALBUTEROL NEBULIZED 2.5 MG/3 ML INHALATION PRN ×2 (07:56→19:49)
[2022-08-02] MEDS: BUMETANIDE 1 MG TAB PO SCH ×2 (09:01→15:24)
[2022-08-02] MEDS: DOCUSATE 100 MG CAP PO SCH ×2 (09:01→20:23)
[2022-08-02] MEDS: APIXABAN 5 MG TAB PO SCH ×2 (09:01→20:23)
[2022-08-02] MEDS: TAMSULOSIN 0.4 MG CAP.ER.24H PO SCH (09:01)
[2022-08-02] MEDS: POTASSIUM CHLORIDE ER 20 MEQ TAB.ER PO SCH (09:01)
[2022-08-02] MEDS: CYANOCOBALAMIN 500 MCG TAB PO SCH (09:01)
[2022-08-02] MEDS: allopurinoL 300 MG TAB PO SCH (09:01)
[2022-08-02] MEDS: ATORVASTATIN 10 MG TAB PO SCH (09:01)
[2022-08-02] MEDS: ASPIRIN 81 MG PO SCH (09:01)
[2022-08-02] MEDS: LOSARTAN 25 MG TAB PO SCH (09:02)
[2022-08-02] MEDS: NYSTATIN 100,000 UNIT/ML SUSP 500,000 UNIT/5 ML CUP PO SCH ×4 (09:02→20:23)
[2022-08-02] MEDS: METOPROLOL SUCCINATE (ER) 25 MG TAB.ER.24H PO SCH ×2 (09:02→20:23)
[2022-08-02] MEDS: AMIODARONE 200 MG TAB PO SCH ×2 (09:02→20:23)
--- NOTE | 2022-08-02 09:08 | XR ---
EXAMINATION TYPE: XR KUB DATE OF EXAM: 08/02/2022 8:39 AM CLINICAL HISTORY: Constipation. Abdominal pain. TECHNIQUE: 3 supine KUB images of the abdomen are obtained. COMPARISON: Abdominal x-ray 2014. FINDINGS: Gas seen in nondistended stomach. Scattered gas in nondistended small and large bowel loops . No significant colonic fecal prominence. Scattered bilateral pelvic phleboliths redemonstrated. Fixating hardware through healed fracture righ t proximal femur is now present. Moderate to advanced narrowing and acetabular spurring in the left h ip redemonstrated. Right-sided nephrolithiasis suspected similar to prior. Correlate clinically. IMPRESSION: Overall nonobstructive bowel gas pattern.
[2022-08-02] MEDS ORDERED: polyethylene glycoL 3350 17 GM POWD.PACK PO STA (10:22)
[2022-08-02] MEDS: CHLORHEXIDINE GLUCONATE 15 ML CUP MUCOUS MEM SCH ×2 (10:45→20:24)
[2022-08-02] MEDS: BETHANECHOL 10 MG TAB PO SCH (10:49)
[2022-08-02 11:59] LABS: Glucose,Whole Blood 202 mg/dL (70-110)
--- NOTE | 2022-08-02 15:23 | P.PN ---
Subjective Progress Note Date: 08/02/22 This is a 76-year-old female with a past medical history significant for hypertension, hyperlipidemia, and diabetes. Patient follows in the office with Dr. Chaudhari but has not been seen in the office since May 2021. We have been asked to see the patient in consultation for afib with RVR. Patient presented to the hospital with a chief complaint of weakness. Patient denied having any chest pain or pressure. She denied SOB. Patient was found to be in atrial fibrillation with RVR. Patient denies history of atrial fibrillation. Bedside telemetry on admission revealed multifocal atrial tachycardia with short bursts of atrial fibrillation. Her echocardiogram showed a severely decreased LV dysfunction with an EF of 20-25% and moderate pulmonary hypertension 07/28/2022 Patient seen and examined at bedside, no acute distress. She went back into A fib with RVR yesterday, her beta antonella was increased and continues to be in A fib with mild RVR this morning. She denies any chest pain or shortness of breath. Is lethargic this morning. She is on Eliquis for anticoagulation. Currently on IV Lasix 20mg Daily. sCr 1.57. 07/29 Patient seen and examined. Blood work is not resulted yet from today however yesterday's creatinine 1.57. Heart rates mainly in the 90s to low 100s and remains in atrial fibrillation. 07/30 Patient seen and examined. Creatinine up to 1.8 today with somewhat borderline blood pressures. Admits to continued fatigue. She does have cool extremities and appears to have 1+ lower extremity edema as well as crackles at bases. 07/31 Patient seen and examined. Metoprolol was decreased back down to 50 mg twice a day and patient placed back on diuretics with Bumex. Concern of advanced heart failure. She has had gout in urine output and creatinine improved to 1.6. D enies any chest pain or pressure. 08/01 Patient seen and examined. Patient converted to normal sinus rhythm at around 10:30 AM today. Heart rates prior to that were fairly well controlled in the 80 s to 90s. She states she is still having some mild dyspnea however lower extremity edema additionally improving. No chest pain or pressure. Creatinine mildly increased up to 1.9. 08/03 The patient denies chest pain or shortness of breath. She is continue amiodarone and dosing will be decreased. Huffman catheter is in place with good urine output. PHYSICAL EXAM: VITAL SIGNS: Reviewed. GENERAL: Frail, No acute distress. HEENT: Head is normocephalic.Neck supple. No JVD LUNGS: Respirations even and unlabored. Lungs mild crackles in bases auscultation bilaterally. HEART: Irregular rate and rhythm. S1 and S2 heard.Systolic murmur at apex. ABDOMEN: Soft. Nondistended. Nontender. EXTREMITIES: Normal range of motion. No clubbing or cyanosis. Peripheral pulses intact. 1+ bilateral lower extremity edema NEUROLOGIC: Awake and alert. ASSESSMENT: Generalized weakness New onset paroxysmal atrial fibrillation with RVR Cardiomyopathy, EF 20-25%, non-ischemic vs ischemic. Possibly tachycardia induced Multifocal atrial tachycardia Abnormal troponins, may be secondary to tachycardia, ACS unlikely Hypertension Hyperlipidemia Diabetes Hypokalemia Acute on chronic Systolic heart failure, concern of cardiogenic shock PLAN: Continue Eliquis 5mg BID and Toprol-XL 25 mg twice daily Continue Bumex 2 mg oral twice daily, Monitor I/Os, daily weights, renal function and electrolytes Continue losartan 12.5 mg daily for heart failure Continue atorvastatin 40 mg daily Continue Amio for rhythm control and currently sinus, decrease amiodarone to 200 mg twice daily Mild increase in Cr noted. Continue oral Bumex, repeat BMP. Patient is cleared for discharge from cardiology and may follow-up with Dr. Chaudhari in one to 2 weeks Nurse practitioner note has been reviewed, I agree with documented findings and plan of care. Patient was seen and examined. Objective - Vital Signs Vital signs: Vital Signs Temp 98.3 F 08/02/22 04:00 Pulse 76 08/02/22 08:09 Resp 19 08/02/22 04:00 BP 108/76 08/02/22 04:00 Pulse Ox 97 08/02/22 08:00 FiO2 21 08/01/22 19:46 Intake & Output 08/01/22 08/02/22 08/02/22 18:59 06:59 18:59 Intake Total 354 118 Output Total 600 400 Balance -246 -400 118 Intake: Oral 354 118 Output: Urine 600 400 Other: Voiding Method Indwelling Catheter Indwelling Catheter # Bowel Movements 1 - Labs CBC & Chem 7: 08/01/22 08:13 08/01/22 08:13 Labs: Abnormal Lab Results - Last 24 Hours (Table) 08/01/22 08/01/2208/02/22 Range/Units 16:31 20:06 06:06 POC Glucose (mg/dL) 187 H 261 H 139 H (70-110) mg/dL
[2022-08-02 15:46] LABS: Glucose,Whole Blood 301 mg/dL (70-110)
[2022-08-02 20:14] LABS: Glucose,Whole Blood 259 mg/dL (70-110)
[2022-08-02] MEDS: CALCIUM CARBONATE 500 MG CHEWABLE PO SCH (20:23)
[2022-08-02] MEDS: PRIMIDONE 50 MG TAB PO SCH (20:23)
[2022-08-02] MEDS ORDERED: INSULIN DETEMIR (LEVEMIR) 100 UNIT/ML SYR SQ SCH (21:00)
--- NOTE | 2022-08-02 22:58 | P.PN ---
Subjective his is a 76-year-old female who was recently admitted with atrial fibrillation also CHF acute exacerbation and being closely monitored. Cardiology is following patient is maintained on low-dose IV Lasix twice daily being adjusted. Kidney functions elevated although trending down. Patient continues with increased lethargic which is felt to be most likely a medication component. Multiple medical adjustments made and this was discussed with daughter at the bedside. PT/OT therapy to evaluate the patient. Encouraged oral intake. Recommend continue telemetry monitoring. Patient is lethargic but arousable answering some questions although falls asleep easily. Urine culture has finalized and was negative for any growth an MRI was negative of the brain. Potassium slightly low at 3.4 and will replace per protocol. WBC mildly elevated at 13.1 although patient is afebrile. 07/28/2022 Patient is seen in follow-up this morning currently sitting up in bed with daughter at the bedside. Patient was started on oral Lasix as kidney functions are elevated with cardiology following. Patient more alert today and complaining of abdominal pain as she reports she feels constipated and will add a fleets enema along with continuing bowel regimen. Patient is afebrile and denies chest pain or shortness of breath. Cardiac medications have been adjusted cardiology following closely. Patient have physical therapy evaluate the patient and recommend working with daily as patient continues to be significantly weak. Family at the bedside questioning if she will need rehab at a facility or can continue going home and having physical therapy as she does at the home setting. Family would like to take the patient home when stable and discharged. Recommend follow-up labs and will continue to monitor closely. 07/29/2022 Patient still feels generally weak, she still needs help to feed herself or to give her medication. She still complaining of from dysuria.also patient has suprapubic pain and tenderness No swallowing problems. She is on room air with no significant tachypnea at rest. She denies chest pain.(Total symptoms only) Looks like her crit is better controlled currently and she was started on liquids. Repeat chest x-ray today showing persistent left lower lobe infiltrate. 07/30/2022 Patient still feels generally weak Patient is most likely have UTI, urine culture is pending, urine analysis abnormal and patient started on ceftriaxone. The catheter insertion and Flomax for urinary retention more than 300 Reason stable and pulmonary send off Cardiology following the case closely and currently she is on metoprolol 100 mg and amiodarone 400 mg. 07/31/22 patient still lethargic for her UTI, culture, sensitivity colitis. Continue with ceftriaxone Also patient with fluid overload and started on Bumex IV. Patient metoprolol dose floor to 50 mg twice a day. Vitals stable. Creatinine trending down to 1.6. Patient remains on Eliquis 5 mg which is started for patient A. fib and RVR present on admission. 08/01/2022 patient urinary tract infection is improving on ceftriaxone for sensitive E. coli on urine culture, patient weakness is also improvement as well as vitals. Patient is afebrile. Huffman catheter replaced. Less suprapubic tenderness. Her fluid overload status is also improving, she is on IV Bumex to switch to oral dose soon for aluminizer and possible today. She still have painful red tongue, chlorhexidine didn't help much so we will add oral nystatin although there is no significant thrush but still fungal infection is suspected 07/02/2022 Patient started improving today, she is more awake and interactive however she still severely lethargic although showing some improvement over the last 2 days area and Her urine cultures back December light which is sensitive to ceftriaxone and patie nt can finish that up as an outpatient, Huffman catheter in place. Pediatric Nurse also change her IV Bumex intraoral dose and cleared her for discharge. Abdomen that patient was complaining of from [place] which states this feels better today. However the morning patient was still not eating much, she was still complaining of from suprapubic tenderness, KUB showing no acute process today. Patient encouraged to reach more, she finished and the percent of her dinner later on. Patient is medically stable for discharge pending placement, patient and daughter Kanchan both agree with the patient going to rehab upon patient request I called the daughter Kanchan and discussed with her problems and management plan and details and she verbalized understanding and acceptance Objective - Vital Signs Vital signs: Vital Signs Temp 97.5 F L 08/02/22 08:58 Pulse 72 08/02/22 13:21 Resp 18 08/02/22 11:30 BP 130/79 08/02/22 11:30 Pulse Ox 93 L 08/02/22 11:30 FiO2 21 08/01/22 19:46 Intake & Output 08/01/22 08/02/22 08/02/22 18:59 06:59 18:59 Intake Total 354 118 Output Total 600 400 Balance -246 -400 118 Intake: Oral 354 118 Output: Urine 600 400 Other: Voiding Method Indwelling Catheter Indwelling Catheter Indwelling Catheter # Bowel Movements 1 - Exam -GENERAL: The patient is alert and oriented x3, not in any acute distress. Wellgenerally weak HEENT: Pupils are round and equally reacting to light. EOMI. No scleral icterus. No conjunctival pallor. Normocephalic, atraumatic. No pharyngeal erythema. No thyromegaly. CARDIOVASCULAR: S1 and S2 present. No murmurs, rubs, or gallops. PULMONARY: Chest is clear to auscultation, no wheezing or crackles. -ABDOMEN: Soft,suprapubic tenderness, nondistended, normoactive bowel sounds. No palpable organomegaly. MUSCULOSKELETAL: No joint swelling or deformity. EXTREMITIES: No cyanosis, clubbing, or pedal edema. NEUROLOGICAL: Gross neurological examination did not reveal any focal deficits. SKIN: No rashes. no petechiae. - Labs CBC & Chem 7: 08/01/22 08:13 08/01/22 08:13 Labs: Abnormal Lab Results - Last 24 Hours (Table) 08/01/22 08/01/22 08/02/22 Range/Units 16:31 20:06 06:06 POC Glucose (mg/dL) 187 H 261 H 139 H (70-110) mg/dL 08/02/22 Range/Units 11:48 POC Glucose (mg/dL) 202 H (70-110) mg/dL Assessment and Plan Assessment: Acute urinary tract infection Urinary retention status post Huffman catheter placement A. fib with RVR, Was not on anticoagulation at home acute on chronic systolic CHF exacerbation, with reduced EF 20-25%. improving urinary retention. Status post Huffman catheter Generalized weakness Chronic right leg weakness, it happens after heparin fracture earlier this year per patient and daughter at bedside. Rule out stroke Chronic kidney disease stage IV Diabetes mellitus Hypertension History of rheumatoid arthritis History of UTI with ESBL bacteremia History of ataxia Plan: Continue with ceftriaxone. Continue with Huffman catheter Continue with IV Bumex continue with Huffman catheter Pulmonary and cardiology team on the case Labs and medication were reviewed.. Continue same treatment. Continue with symptomatic treatment. Resume home medication. Monitor labs and vitals. DVT and GI prophylaxis. Further recommendations as per clinical course of the patient DVT prophylaxis: aluminizer start the patient on anticoagulation Eliquis GI Prophylaxis: Pepcid PT/OT: Subacute rehab recommended however patient and family refused and wanted to go home with home care Prognosis is guarded.
[2022-08-03 05:54] LABS: Glucose,Whole Blood 81 mg/dL (70-110)
[2022-08-03] MEDS: INSULIN ASPART (NovoLOG) 100 UNIT/ML VIAL SQ SCH ×7 (05:56→21:01)
[2022-08-03] MEDS: glipiZIDE 10 MG TAB PO SCH (06:40)
[2022-08-03] MEDS: ALBUTEROL NEBULIZED 2.5 MG/3 ML INHALATION PRN (08:02)
[2022-08-03] MEDS: AMIODARONE 200 MG TAB PO SCH ×2 (08:20→21:00)
[2022-08-03] MEDS: POTASSIUM CHLORIDE ER 20 MEQ TAB.ER PO SCH (08:20)
[2022-08-03] MEDS: BUMETANIDE 1 MG TAB PO SCH ×2 (08:20→16:51)
[2022-08-03] MEDS: DOCUSATE 100 MG CAP PO SCH ×2 (08:20→21:00)
[2022-08-03] MEDS: CYANOCOBALAMIN 500 MCG TAB PO SCH (08:20)
[2022-08-03] MEDS: TAMSULOSIN 0.4 MG CAP.ER.24H PO SCH (08:21)
[2022-08-03] MEDS: LOSARTAN 25 MG TAB PO SCH (08:21)
[2022-08-03] MEDS: NYSTATIN 100,000 UNIT/ML SUSP 500,000 UNIT/5 ML CUP PO SCH ×4 (08:21→21:01)
[2022-08-03] MEDS: allopurinoL 300 MG TAB PO SCH (08:21)
[2022-08-03] MEDS: METOPROLOL SUCCINATE (ER) 25 MG TAB.ER.24H PO SCH ×2 (08:21→20:59)
[2022-08-03] MEDS: BETHANECHOL 10 MG TAB PO SCH (08:21)
[2022-08-03] MEDS: CHLORHEXIDINE GLUCONATE 15 ML CUP MUCOUS MEM SCH ×2 (08:21→21:01)
[2022-08-03] MEDS: ASPIRIN 81 MG PO SCH (08:21)
[2022-08-03] MEDS: ATORVASTATIN 10 MG TAB PO SCH (08:21)
[2022-08-03] MEDS: APIXABAN 5 MG TAB PO SCH ×2 (08:21→21:00)
[2022-08-03 09:31] LABS: Calcium 8.2 mg/dL (8.4-10.2); Potassium 4.2 mmol/L (3.5-5.1)
[2022-08-03 11:59] LABS: Glucose,Whole Blood 168 mg/dL (70-110)
--- NOTE | 2022-08-03 14:20 | P.PN ---
Subjective Progress Note Date: 08/03/22 This is a 76-year-old female with a past medical history significant for hypertension, hyperlipidemia, and diabetes. Patient follows in the office with Dr. Chaudhari but has not been seen in the office since May 2021. We have been asked to see the patient in consultation for afib with RVR. Patient presented to the hospital with a chief complaint of weakness. Patient denied having any chest pain or pressure. She denied SOB. Patient was found to be in atrial fibrillation with RVR. Patient denies history of atrial fibrillation. Bedside telemetry on admission revealed multifocal atrial tachycardia with short bursts of atrial fibrillation. Her echocardiogram showed a severely decreased LV dysfunction with an EF of 20-25% and moderate pulmonary hypertension 07/28/2022 Patient seen and examined at bedside, no acute distress. She went back into A fib with RVR yesterday, her beta antonella was increased and continues to be in A fib with mild RVR this morning. She denies any chest pain or shortness of breath. Is lethargic this morning. She is on Eliquis for anticoagulation. Currently on IV Lasix 20mg Daily. sCr 1.57. 07/29 Patient seen and examined. Blood work is not resulted yet from today however yesterday's creatinine 1.57. Heart rates mainly in the 90s to low 100s and remains in atrial fibrillation. 07/30 Patient seen and examined. Creatinine up to 1.8 today with somewhat borderline blood pressures. Admits to continued fatigue. She does have cool extremities and appears to have 1+ lower extremity edema as well as crackles at bases. 07/31 Patient seen and examined. Metoprolol was decreased back down to 50 mg twice a day and patient placed back on diuretics with Bumex. Concern of advanced heart failure. She has had gout in urine output and creatinine improved to 1.6. D enies any chest pain or pressure. 08/01 Patient seen and examined. Patient converted to normal sinus rhythm at around 10:30 AM today. Heart rates prior to that were fairly well controlled in the 80 s to 90s. She states she is still having some mild dyspnea however lower extremity edema additionally improving. No chest pain or pressure. Creatinine mildly increased up to 1.9. 08/02 The patient denies chest pain or shortness of breath. She is continue amiodarone and dosing will be decreased. Huffman catheter is in place with good urine output. 08/03 Patient has been seen and examined. Patient denies chest pain or shortness of breath, no pedal edema. Rate monitor his been a sinus rhythm with heart rate in the 60s. Blood pressure 127/65. BUN 74 and creatinine 1.8 to slightly improved from yesterday. PHYSICAL EXAM: VITAL SIGNS: Reviewed. GENERAL: Frail, No acute distress. HEENT: Head is normocephalic.Neck supple. No JVD LUNGS: Respirations even and unlabored. Lungs mild crackles in bases auscultation bilaterally. HEART: Irregular rate and rhythm. S1 and S2 heard.Systolic murmur at apex. ABDOMEN: Soft. Nondistended. Nontender. EXTREMITIES: Normal range of motion. No clubbing or cyanosis. Peripheral pulses intact. 1+ bilateral lower extremity edema NEUROLOGIC: Awake and alert. ASSESSMENT: Generalized weakness New onset paroxysmal atrial fibrillation with RVR Cardiomyopathy, EF 20-25%, non-ischemic vs ischemic. Possibly tachycardia induced Multifocal atrial tachycardia Abnormal troponins, may be secondary to tachycardia, ACS unlikely Hypertension Hyperlipidemia Diabetes Hypokalemia Acute on chronic Systolic heart failure, concern of cardiogenic shock PLAN: Continue Eliquis 5mg BID and Toprol-XL 25 mg twice daily Continue Bumex 2 mg oral twice daily, Monitor I/Os, daily weights, renal function and electrolytes Continue losartan 12.5 mg daily for heart failure Continue atorvastatin 40 mg daily Continue Amio for rhythm control and currently sinus, continue amiodarone at decreased dose of 200 mg twice daily Mild increase in Cr noted. Continue oral Bumex, repeat BMP. Patient is cleared for discharge from cardiology and may follow-up with Dr. Chaudhari in one to 2 weeks Nurse practitioner note has been reviewed, I agree with documented findings and plan of care. Patient was seen and examined. Objective - Vital Signs Vital signs: Vital Signs Temp 97.5 F L 08/03/22 08:17 Pulse 68 08/03/22 08:17 Resp 16 08/03/22 08:17 BP 127/65 08/03/22 08:17 Pulse Ox 95 08/03/22 08:17 FiO2 21 08/01/22 19:46 Intake & Output 08/02/22 08/03/22 08/03/22 18:59 06:59 18:59 Intake Total 118 Output Total 700 850 Balance -582 -850 Intake: Oral 118 Output: Urine 700 850 Other: Voiding Method Indwelling Catheter Indwelling Catheter Indwelling Catheter - Labs CBC & Chem 7: 08/01/22 08:13 08/03/22 08:41 Labs: Abnormal Lab Results - Last 24 Hours (Table) 08/02/22 08/02/22 08/02/22 Range/Units 11:48 15:42 20:09 Sodium (137-145) mmol/L BUN (7-17) mg/dL Creatinine (0.52-1.04) mg/dL Glucose (74-99) mg/dL POC Glucose (mg/dL) 202 H 301 H 259 H (70-110) mg/dL Calcium (8.4-10.2) mg/dL 08/03/22 Range/Units 08:41 Sodium 136 L (137-145) mmol/L BUN 74 H (7-17) mg/dL Creatinine 1.82 H (0.52-1.04) mg/dL Glucose 170 H (74-99) mg/dL POC Glucose (mg/dL) (70-110) mg/dL Calcium 8.2 L (8.4-10.2) mg/dL
[2022-08-03 17:17] LABS: Glucose,Whole Blood 243 mg/dL (70-110)
[2022-08-03 20:34] LABS: Glucose,Whole Blood 293 mg/dL (70-110)
[2022-08-03] MEDS: CALCIUM CARBONATE 500 MG CHEWABLE PO SCH (20:59)
[2022-08-03] MEDS ORDERED: INSULIN DETEMIR (LEVEMIR) 100 UNIT/ML SYR SQ SCH (21:00)
[2022-08-03] MEDS: PRIMIDONE 50 MG TAB PO SCH (21:00)
[2022-08-03 21:11] VITALS: RESP 18
--- NOTE | 2022-08-03 23:14 | P.PN ---
Subjective his is a 76-year-old female who was recently admitted with atrial fibrillation also CHF acute exacerbation and being closely monitored. Cardiology is following patient is maintained on low-dose IV Lasix twice daily being adjusted. Kidney functions elevated although trending down. Patient continues with increased lethargic which is felt to be most likely a medication component. Multiple medical adjustments made and this was discussed with daughter at the bedside. PT/OT therapy to evaluate the patient. Encouraged oral intake. Recommend continue telemetry monitoring. Patient is lethargic but arousable answering some questions although falls asleep easily. Urine culture has finalized and was negative for any growth an MRI was negative of the brain. Potassium slightly low at 3.4 and will replace per protocol. WBC mildly elevated at 13.1 although patient is afebrile. 07/28/2022 Patient is seen in follow-up this morning currently sitting up in bed with daughter at the bedside. Patient was started on oral Lasix as kidney functions are elevated with cardiology following. Patient more alert today and complaining of abdominal pain as she reports she feels constipated and will add a fleets enema along with continuing bowel regimen. Patient is afebrile and denies chest pain or shortness of breath. Cardiac medications have been adjusted cardiology following closely. Patient have physical therapy evaluate the patient and recommend working with daily as patient continues to be significantly weak. Family at the bedside questioning if she will need rehab at a facility or can continue going home and having physical therapy as she does at the home setting. Family would like to take the patient home when stable and discharged. Recommend follow-up labs and will continue to monitor closely. 07/29/2022 Patient still feels generally weak, she still needs help to feed herself or to give her medication. She still complaining of from dysuria.also patient has suprapubic pain and tenderness No swallowing problems. She is on room air with no significant tachypnea at rest. She denies chest pain.(Total symptoms only) Looks like her crit is better controlled currently and she was started on liquids. Repeat chest x-ray today showing persistent left lower lobe infiltrate. 07/30/2022 Patient still feels generally weak Patient is most likely have UTI, urine culture is pending, urine analysis abnormal and patient started on ceftriaxone. The catheter insertion and Flomax for urinary retention more than 300 Reason stable and pulmonary send off Cardiology following the case closely and currently she is on metoprolol 100 mg and amiodarone 400 mg. 07/31/22 patient still lethargic for her UTI, culture, sensitivity colitis. Continue with ceftriaxone Also patient with fluid overload and started on Bumex IV. Patient metoprolol dose floor to 50 mg twice a day. Vitals stable. Creatinine trending down to 1.6. Patient remains on Eliquis 5 mg which is started for patient A. fib and RVR present on admission. 08/01/2022 patient urinary tract infection is improving on ceftriaxone for sensitive E. coli on urine culture, patient weakness is also improvement as well as vitals. Patient is afebrile. Huffman catheter replaced. Less suprapubic tenderness. Her fluid overload status is also improving, she is on IV Bumex to switch to oral dose soon for traveling nurse and possible today. She still have painful red tongue, chlorhexidine didn't help much so we will add oral nystatin although there is no significant thrush but still fungal infection is suspected 08/02/2022 Patient started improving today, she is more awake and interactive however she still severely lethargic although showing some improvement over the last 2 days area and Her urine cultures back December light which is sensitive to ceftriaxone and patie nt can finish that up as an outpatient, Huffman catheter in place. Emissions Testing Technician also change her IV Bumex intraoral dose and cleared her for discharge. Abdomen that patient was complaining of from [place] which states this feels better today. However the morning patient was still not eating much, she was still complaining of from suprapubic tenderness, KUB showing no acute process today. Patient encouraged to reach more, she finished and the percent of her dinner later on. Patient is medically stable for discharge pending placement, patient and daughter Kanchan both agree with the patient going to rehab upon patient request I called the daughter Kanchan and discussed with her problems and management plan and details and she verbalized understanding and acceptance 08/03/2022 Patient is improving every day, she feels more stronger although she still generally weak. Also she is picking up her diet and her tongue pain is improving with oral therapy. Hemodynamically stable. Glucose is around 200, we are going to increase her NovoLog insulin into 7 units with meals instead of 5 units and keep the Levemir 25 units at bedtime. She remains on ceftriaxone for UTI, she is on oral Bumex, Eliquis, 200 mg of amiodarone and metoprolol. Patient is medically stable for discharge pending placement, discussed the case with the social science research assistant today Objective - Vital Signs Vital signs: Vital Signs Temp 97.5 F L 08/03/22 08:17 Pulse 73 08/03/22 13:48 Resp 16 08/03/22 11:23 BP 129/70 08/03/22 11:23 Pulse Ox 96 08/03/22 11:23 FiO2 21 08/01/22 19:46 Intake & Output 08/02/22 08/03/22 08/03/22 18:59 06:59 18:59 Intake Total 118 118 Output Total 700 850 850 Balance -277 -103 -525 Intake: Oral 118 118 Output: Urine 700 850 850 Other: Voiding Method Indwelling Catheter Indwelling Catheter Indwelling Catheter - Exam -GENERAL: The patient is alert and oriented x3, not in any acute distress. Wellgenerally weak HEENT: Pupils are round and equally reacting to light. EOMI. No scleral icterus. No conjunctival pallor. Normocephalic, atraumatic. No pharyngeal erythema. No thyromegaly. CARDIOVASCULAR: S1 and S2 present. No murmurs, rubs, or gallops. PULMONARY: Chest is clear to auscultation, no wheezing or crackles. -ABDOMEN: Soft,suprapubic tenderness, nondistended, normoactive bowel sounds. No palpable organomegaly. MUSCULOSKELETAL: No joint swelling or deformity. EXTREMITIES: No cyanosis, clubbing, or pedal edema. NEUROLOGICAL: Gross neurological examination did not reveal any focal deficits. SKIN: No rashes. no petechiae. - Labs CBC & Chem 7: 08/01/22 08:13 08/03/22 08:41 Labs: Abnormal Lab Results - Last 24 Hours (Table) 08/02/22 08/02/22 08/03/22 Range/Units 15:42 20:09 08:41 Sodium 136 L (137-145) mmol/L BUN 74 H (7-17) mg/dL Creatinine 1.82 H (0.52-1.04) mg/dL Glucose 170 H (74-99) mg/dL POC Glucose (mg/dL) 301 H 259 H (70-110) mg/dL Calcium 8.2 L (8.4-10.2) mg/dL 08/03/22 Range/Units 11:48 Sodium (137-145) mmol/L BUN (7-17) mg/dL Creatinine (0.52-1.04) mg/dL Glucose (74-99) mg/dL POC Glucose (mg/dL) 168 H (70-110) mg/dL Calcium (8.4-10.2) mg/dL Assessment and Plan Assessment: Acute urinary tract infection Urinary retention status post Huffman catheter placement A. fib with RVR, Was not on anticoagulation at home acute on chronic systolic CHF exacerbation, with reduced EF 20-25%. improving urinary retention. Status post Huffman catheter Generalized weakness Chronic right leg weakness, it happens after heparin fracture earlier this year per patient and daughter at bedside. Rule out stroke Chronic kidney disease stage IV Diabetes mellitus Hypertension History of rheumatoid arthritis History of UTI with ESBL bacteremia History of ataxia Plan: Continue with ceftriaxone. Continue with Huffman catheter Continue with oral Bumex Keep monitoring glucose continue with Levemir and NovoLog with meals Pulmonary and cardiology team on the case Labs and medication were reviewed.. Continue same treatment. Continue with symptomatic treatment. Resume home medication. Monitor labs and vitals. DVT and GI prophylaxis. Further recommendations as per clinical course of the patient DVT prophylaxis: traveling nurse start the patient on anticoagulation Eliquis GI Prophylaxis: Pepcid PT/OT: Subacute rehab recommended however patient and family refused and wanted to go home with home care Prognosis is guarded Patient is medically stable for discharge pending the placement
[2022-08-04 06:23] LABS: Glucose,Whole Blood 141 mg/dL (70-110)
[2022-08-04] MEDS: INSULIN ASPART (NovoLOG) 100 UNIT/ML VIAL SQ SCH ×4 (06:39→12:35)
[2022-08-04] MEDS: glipiZIDE 10 MG TAB PO SCH (07:09)
--- NOTE | 2022-08-04 08:17 | P.DS ---
Providers Date of admission: 07/23/22 10:21 Attending physician: Evelio Duckworth Consults: 07/23/22 10:20 Consult Physician Urgent Consulting Provider: [facility] Consult Reason/Comments: A. fib with rapid ventricular response Do you want consulting provider notified?: Yes 07/24/22 00:21 Consult Physician Routine Consulting Provider: Tony Phillips Reason/Comments: Pulmonary Edema Do you want consulting provider notified?: Yes, Notify in am Primary care physician: [facility] Hospital Course: Diagnoses: Acute urinary tract infection Urinary retention status post Huffman catheter placement A. fib with RVR, Was not on anticoagulation at home acute on chronic systolic CHF exacerbation, with reduced EF 20-25%. improving urinary retention. Status post Huffman catheter Generalized weakness Chronic right leg weakness, it happens after heparin fracture earlier this year per patient and daughter at bedside. Rule out stroke Chronic kidney disease stage IV Diabetes mellitus Hypertension History of rheumatoid arthritis History of UTI with ESBL bacteremia History of ataxia Hospital course: his is a 76-year-old female who was recently admitted with atrial fibrillation also CHF acute exacerbation and being closely monitored. Cardiology were following patient closely, eventually her heart rate is controlled with metoprolol and amiodarone 200 mg. Also she was started on Eliquis which is an you for her, risks and benefits of bleeding and anticoagulation are explained for her and details and she verbalized understanding and acceptance. Also patient has found with acute CHF exacerbation, her ejection fraction is 20-25% she was treated with diuretics intravenously and then switched to oral Bumex upon discharge. Patient is euvolemic upon discharge. She has severe pulmonary hypertension and evaluated by pulmonology team, however her breathing is a stable and pulmonary team signed off. Patient has evidence of urinary retention and acute urinary tract infection seco ndary to UTI, Huffman catheter placed and she responded to treatment to ceftriaxone And she responded to treatment and her symptoms improved including dysuria and suprapubic tenderness also her generalized severe weakness started to feel better however she will need rehab upon discharge. Patient will benefit from short course of oral antibiotics upon discharge based on culture and sensitivity. She had sore tongue that responded to treatment with chlorhexidine and nystatin Patient had uncontrolled diabetes. Hemoglobin A1c was 8.9% on admission. Patient regimen was adjusted to Levemir 25 units, and adequate NovoLog 7 units with meals plus estrogen sliding scale.. Sugar is better controlled now but may need further monitoring as an outpatient. Patient eventually felt better and her symptoms improved and on the day of discharge she denies chest pain abdominal pain or dyspnea. She tolerates diet. Huffman catheter in place. No diarrhea. No new neurological symptoms. Patient feels she can be discharged. Was cleared for discharge by all consultants including cardiology and pulmonary services. Problems and management plan were discussed with the patient and he verbalized understanding and acceptance Patient was found stable and can be discharged home in guarded prognosis however he needs follow-up as an outpatient. Patient was instructed to follow up with PCP Dr. Lehman within one week and patient agrees Physical exam -Gen: patient is a AAOx3, no distress, generally weak CVS: S1-S2, RRR, no murmur Lungs: B/L CTA, no wheezing -Abdomen: soft, no distention, no tenderness, positive bowel sounds. Huffman catheter in place Extremity: no leg edema or induration Time spent more than 35 minutes Plan - Discharge Summary Discharge Rx Participant: No New Discharge Prescriptions: Discontinued amLODIPine [Norvasc] 5 mg PO DAILY #30 tab hydroCHLOROthiazide [Hydrodiuril] 12.5 mg PO DAILY No Action glipiZIDE [Glipizide] 10 mg PO AC-BRKFST Simvastatin [Zocor] 20 mg PO HS Aspirin 81 mg PO DAILY Insulin Glargine,Hum.rec.anlog [Lantus Solostar Pen] 55 unit SQ HS Clotrimazole/Betameth Cream [Lotrisone] 1 applic TOPICAL BID Primidone 50 mg PO HS glipiZIDE [Glucotrol] 5 mg PO AC-SUPPER Ferrous Sulfate [Iron (65 MG Elemental)] 325 mg PO Q2D Docusate [Colace] 100 mg PO BID Cyanocobalamin (Vitamin B-12) [Vitamin B-12] 2,500 mcg PO DAILY polyethylene glycoL 3350 [Miralax] 17 gm PO DAILY PRN PRN Reason: Constipation busPIRone HCl [Buspar] 5 mg PO DAILY Potassium Chloride [Klor-Con M20] 20 meq PO DAILY Primidone 25 mg PO QAM Bethanechol Chloride [Urecholine] 5 mg PO DAILY allopurinoL [Zyloprim] 300 mg PO DAILY Calcium Carbonate [Calcium] 1,200 mg PO HS Discharge Medication List Aspirin 81 mg PO DAILY 07/18/14 [History] Simvastatin [Zocor] 20 mg PO HS 07/18/14 [History] glipiZIDE [Glipizide] 10 mg PO AC-BRKFST 07/18/14 [History] Insulin Glargine,Hum.rec.anlog [Lantus Solostar Pen] 55 unit SQ HS 09/30/17 [History] Clotrimazole/Betameth Cream [Lotrisone] 1 applic TOPICAL BID 11/10/21 [History] Cyanocobalamin (Vitamin B-12) [Vitamin B-12] 2,500 mcg PO DAILY 11/10/21 [History] Docusate [Colace] 100 mg PO BID 11/10/21 [History] Ferrous Sulfate [Iron (65 MG Elemental)] 325 mg PO Q2D 11/10/21 [History] Bethanechol Chloride [Urecholine] 5 mg PO DAILY 07/23/22 [History] Calcium Carbonate [Calcium] 1,200 mg PO HS 07/23/22 [History] Potassium Chloride [Klor-Con M20] 20 meq PO DAILY 07/23/22 [History] Primidone 25 mg PO QAM 07/23/22 [History] Primidone 50 mg PO HS 07/23/22 [History] allopurinoL [Zyloprim] 300 mg PO DAILY 07/23/22 [History] busPIRone HCl [Buspar] 5 mg PO DAILY 07/23/22 [History] glipiZIDE [Glucotrol] 5 mg PO AC-SUPPER 07/23/22 [History] polyethylene glycoL 3350 [Miralax] 17 gm PO DAILY PRN 07/23/22 [History] Follow up Appointment(s)/Referral(s): Yusef Chaudhari MD [STAFF PHYSICIAN] - 2 Weeks (cardiololgist ) Alberto Lehman DO [Primary Care Provider] - 1-2 days Jesus Mcnally MD [STAFF PHYSICIAN] - 1 Week [facility] Visiting Nurse, [NON-STAFF] -
[2022-08-04] MEDS ORDERED: LACTULOSE 20 GM/30 ML CUP PO ONE (08:18)
[2022-08-04] MEDS: ASPIRIN 81 MG PO SCH (09:13)
[2022-08-04] MEDS: CYANOCOBALAMIN 500 MCG TAB PO SCH (09:13)
[2022-08-04] MEDS: AMIODARONE 200 MG TAB PO SCH (09:13)
[2022-08-04] MEDS: APIXABAN 5 MG TAB PO SCH (09:13)
[2022-08-04] MEDS: ATORVASTATIN 10 MG TAB PO SCH (09:13)
[2022-08-04] MEDS: allopurinoL 300 MG TAB PO SCH (09:13)
[2022-08-04] MEDS: LOSARTAN 25 MG TAB PO SCH (09:14)
[2022-08-04] MEDS: DOCUSATE 100 MG CAP PO SCH (09:14)
[2022-08-04] MEDS: POTASSIUM CHLORIDE ER 20 MEQ TAB.ER PO SCH (09:14)
[2022-08-04] MEDS: BUMETANIDE 1 MG TAB PO SCH (09:14)
[2022-08-04] MEDS: BETHANECHOL 10 MG TAB PO SCH (09:15)
[2022-08-04] MEDS: METOPROLOL SUCCINATE (ER) 25 MG TAB.ER.24H PO SCH (09:15)
[2022-08-04] MEDS: TAMSULOSIN 0.4 MG CAP.ER.24H PO SCH (09:15)
[2022-08-04] MEDS: NYSTATIN 100,000 UNIT/ML SUSP 500,000 UNIT/5 ML CUP PO SCH (09:16)
[2022-08-04] MEDS: CHLORHEXIDINE GLUCONATE 15 ML CUP MUCOUS MEM SCH (09:16)
[2022-08-04 11:54] LABS: Glucose,Whole Blood 121 mg/dL (70-110)
[2022-08-04 11:59] VITALS: BP 116/72; PULSE 65; TEMP 98.1
== END 2022-08-04 14:19 | DRG 291 ==
LOC: EC 09:03 → 3SCARD 10:21
PROVIDERS: ADMIT Hospitalist; ATTEND Hospitalist
DX: I13.0 Hypertensive heart and chronic kidney disease with heart failure and stage 1 through stage 4 chronic kidney disease, or unspecified chronic kidney disease (principal); G92.8 Other toxic encephalopathy; I50.23 Acute on chronic systolic (congestive) heart failure; R57.0 Cardiogenic shock; J96.01 Acute respiratory failure with hypoxia; N17.9 Acute kidney failure, unspecified; E87.3 Alkalosis; N39.0 Urinary tract infection, site not specified; I47.1 Supraventricular tachycardia; E87.0 Hyperosmolality and hypernatremia; I27.20 Pulmonary hypertension, unspecified; E11.22 Type 2 diabetes mellitus with diabetic chronic kidney disease; M06.9 Rheumatoid arthritis, unspecified; N18.31 Chronic kidney disease, stage 3a; J44.9 Chronic obstructive pulmonary disease, unspecified; E11.65 Type 2 diabetes mellitus with hyperglycemia; I08.3 Combined rheumatic disorders of mitral, aortic and tricuspid valves; L89.151 Pressure ulcer of sacral region, stage 1; I42.8 Other cardiomyopathies; R54 Age-related physical debility; B96.20 Unspecified Escherichia coli [E. coli] as the cause of diseases classified elsewhere; E78.5 Hyperlipidemia, unspecified; I48.0 Paroxysmal atrial fibrillation; R20.0 Anesthesia of skin; R27.0 Ataxia, unspecified; R01.1 Cardiac murmur, unspecified; E87.6 Hypokalemia; K14.6 Glossodynia; G25.2 Other specified forms of tremor; K59.00 Constipation, unspecified; W18.30XA Fall on same level, unspecified, initial encounter; Y92.002 Bathroom of unspecified non-institutional (private) residence as the place of occurrence of the external cause; Z79.899 Other long term (current) drug therapy; Z79.84 Long term (current) use of oral hypoglycemic drugs; Z79.4 Long term (current) use of insulin; Z79.82 Long term (current) use of aspirin; Z88.8 Allergy status to other drugs, medicaments and biological substances; Z86.19 Personal history of other infectious and parasitic diseases; Z87.440 Personal history of urinary (tract) infections
CPT/HCPCS: 36415; 36600; 70450; 70551; 71045; 71046; 74018; 80048; 80053; 80061; 81001; 82805; 83036; 83605; 83735; 83880; 84145; 84443; 84484; 85025; 85379; 85610; 85730; 87077; 87086; 87186; 87635; 93005; 93306; 94640; 94760; 96374; 96375; 99291

== ENCOUNTER → 2023-01-05 | Outpatient (CLI) | payer MEDICARE ==
--- NOTE | 2023-01-06 09:00 | NM ---
EXAMINATION TYPE: NM DatScan Brain SPECT DATE OF EXAM: 01/05/2023 COMPARISON: NONE HISTORY: Trauma TECHNIQUE: 10 drops of Lugol's solution was administered 1 hour prior to injection as a thyroid bloc alexus agent. After the administration of 4.39 mCi I-123 Ioflupane DaTscan. Images obtained 3 hours p ost injection. SPECT images of the brain were acquired with axial and coronal reconstructions. FINDINGS: The axial SPECT images demonstrate increased background activity and reduced activity withi n the bilateral striata with a Z score ranging between -2.8 and 3.6 bilaterally. IMPRESSION: Abnormal appearance highly suggestive of idiopathic Parkinson's disease or Parkinsonian s yndrome.
== END | disposition home or self-care (01) ==
LOC: RADNMMAIN 11:04
PROVIDERS: ATTEND Psychiatry & Neurology Neurology
DX: G25.0 Essential tremor (principal)
CPT/HCPCS: 78803; A9584

== ENCOUNTER 2023-06-11 01:13 | Emergency (ER) | payer MEDICARE ==
[2023-06-11] MEDS ORDERED: ACETAMINOPHEN TAB 500 MG TAB PO STA (01:27)
[2023-06-11] MEDS ORDERED: SODIUM CHLORIDE 0.9% 1,000 ML IV STA (01:27)
[2023-06-11] MEDS ORDERED: IBUPROFEN 600 MG TAB PO STA (01:27)
--- NOTE | 2023-06-11 01:32 | ED ---
Fever HPI - General Chief Complaint: Weakness Stated Complaint: Weakness Time Seen by Provider: 06/11/23 01:17 Source: patient, RN notes reviewed, old records reviewed Mode of arrival: EMS Limitations: no limitations - History of Present Illness Initial Comments: This is a 77-year-old female to the emergency department for evaluation of significant weakness presented by EMS weakness and lightheadedness. Also found to have fever. Patient presents today stating that she does recently received a flu shot. MD Complaint: fever, malaise, weakness -: hour(s) Temperature Source: subjective Context: sick contacts Associated Symptoms: denies other symptoms Treatments Prior to Arrival: none - Related Data Home Medications Medication Instructions Recorded Confirmed Aspirin 81 mg PO DAILY 07/18/14 07/23/22 Simvastatin [Zocor] 20 mg PO HS 07/18/14 07/23/22 glipiZIDE [Glipizide] 10 mg PO AC-BRKFST 07/18/14 07/23/22 Cyanocobalamin (Vitamin B-12) 2,500 mcg PO DAILY 11/10/21 07/23/22 [Vitamin B-12] Ferrous Sulfate [Iron (65 MG 325 mg PO Q2D 11/10/21 07/23/22 Elemental)] Bethanechol Chloride [Urecholine] 5 mg PO DAILY 07/23/22 07/23/22 Potassium Chloride [Klor-Con M20] 20 meq PO DAILY 07/23/22 07/23/22 Primidone 25 mg PO QAM 07/23/22 07/23/22 Primidone 50 mg PO HS 07/23/22 07/23/22 allopurinoL [Zyloprim] 300 mg PO DAILY 07/23/22 07/23/22 busPIRone HCl [Buspar] 5 mg PO DAILY 07/23/22 07/23/22 polyethylene glycoL 3350 [Miralax] 17 gm PO DAILY PRN 07/23/22 07/23/22 Previous Rx's Medication Instructions Recorded Acetaminophen Tab [Tylenol] 650 mg PO Q6HR PRN tab 08/04/22 Albuterol Nebulized [Ventolin 2.5 mg INHALATION RT-QID PRN ml 08/04/22 Nebulized] Amiodarone [Cordarone] 200 mg PO BID tab 08/04/22 Apixaban [Eliquis] 5 mg PO BID tab 08/04/22 Bumetanide [BUMEX] 2 mg PO BID@0900,1600 tab 08/04/22 Calcium Carbonate [Tums] 1,000 mg PO HS PRN tab 08/04/22 Chlorhexidine Gluconate [Peridex] 15 ml MUCOUS MEM BID ml 08/04/22 Docusate [Colace] 100 mg PO BID #0 08/04/22 INSULIN ASPART (NovoLOG) [NovoLOG 0 unit SQ ACHS each 08/04/22 (formulary)] INSULIN ASPART (NovoLOG) [NovoLOG 7 unit SQ AC-TID each 08/04/22 (formulary)] Insulin Detemir (Levemir) [Levemir] 25 unit SQ HS each 08/04/22 Losartan [Cozaar] 12.5 mg PO DAILY tab 08/04/22 Metoprolol Succinate (ER) [Toprol 25 mg PO BID tab 08/04/22 XL] Nitroglycerin Sl Tabs [Nitrostat] 0.4 mg SUBLINGUAL Q5M PRN tab 08/04/22 Nystatin 100,000 Unit/ml Susp 500,000 unit PO QID 5 Days #100 ml 08/04/22 [Mycostatin Oral Susp] Tamsulosin [Flomax] 0.4 mg PO PC-BRKFST cap 08/04/22 cefUROXime axetiL [Cefuroxime] 500 mg PO BID 7 Days #14 tab 08/04/22 Amoxic-Pot Clav 875-125Mg 1 tab PO Q12HR #30 tablet 06/11/23 [Augmentin 875-125] Allergies Allergy/AdvReac Type Severity Reaction Status Date / Time gabapentin AdvReac Hallucinati Verified 06/11/23 01:20 ons Review of Systems ROS Statement: Those systems with pertinent positive or pertinent negative responses have been documented in the HPI. ROS Other: All systems not noted in ROS Statement are negative. Past Medical History Past Medical History: Heart Failure, Diabetes Mellitus, Hyperlipidemia, Hypertension, Pneumonia, Rheumatoid Arthritis (RA) Additional Past Medical History / Comment(s): tremors, renal lithiasis, hemorrhoids(sx done), "has had problems w/low magnesium.anemia. per posue pt had past cancer "uterine or cervical-had hysterectomy". it was previously charted that pt had hx of ra and cfh spouse not able to verify this, History of Any Multi-Drug Resistant Organisms: ESBL Date of last positivie culture/infection: 05/11/18 MDRO Source:: ESBL URINE Past Surgical History: Appendectomy, Hysterectomy, Orthopedic Surgery, Tonsillectomy Additional Past Surgical History / Comment(s): rt total knee repalcement, cataracts, hemmorroidectomy, colonoscopy Past Anesthesia/Blood Transfusion Reactions: No Reported Reaction Additional Past Anesthesia/Blood Transfusion Reaction / Comment(s): per psouse- pt never receieved any blood Past Psychological History: No Psychological Hx Reported Smoking Status: Never smoker Past Alcohol Use History: None Reported Past Drug Use History: None Reported - Past Family History Mother Family Medical History: Diabetes Mellitus Father Additional Family Medical History / Comment(s): brain anuerysm General Exam General appearance: alert, in no apparent distress Head exam: Present: atraumatic, normocephalic, normal inspection Eye exam: Present: normal appearance, PERRL, EOMI. Absent: scleral icterus, conjunctival injection, periorbital swelling ENT exam: Present: normal exam, mucous membranes moist Neck exam: Present: normal inspection. Absent: tenderness, meningismus, lymphadenopathy Respiratory exam: Present: normal lung sounds bilaterally. Absent: respiratory distress, wheezes, rales, rhonchi, stridor Cardiovascular Exam: Present: regular rate, normal rhythm, normal heart sounds. Absent: systolic murmur, diastolic murmur, rubs, gallop, clicks GI/Abdominal exam: Present: soft, normal bowel sounds. Absent: distended, t enderness, guarding, rebound, rigid Extremities exam: Present: normal inspection, full ROM, normal capillary refill. Absent: tenderness, pedal edema, joint swelling, calf tenderness Back exam: Present: normal inspection Neurological exam: Present: alert, oriented X3, CN II-XII intact Psychiatric exam: Present: normal affect, normal mood Skin exam: Present: warm, dry, intact, normal color. Absent: rash Course Vital Signs 06/11/23 06/11/23 06/11/23 01:14 03:20 04:00 Temperature 102.3 F H 100.5 F H Pulse Rate 96 92 78 Respiratory 18 20 20 Rate Blood Pressure 143/80 161/95 103/60 O2 Sat by Pulse 96 94 L 94 L Oximetry 06/11/23 06:19 Temperature Pulse Rate 74 Respiratory 18 Rate Blood Pressure 120/55 O2 Sat by Pulse 95 Oximetry - Reevaluation(s) Reevaluation #1: 06/11/23 01:43 Record is reviewed Reevaluation #2: Patient symptoms are improved Reevaluation #3: Patient informed results and questions answered Reevaluation #4: 06/11/23 01:43 Was pt. sent in by a medical professional or institution ([facility], [facility], urgent care, hospital, or snf...) When possible be specific @ -no Did you speak to anyone other than the patient for history (EMS, parent, family, police, friend...)? What history was obtained from this source @ -no Did you review nursing and triage notes (agree or disagree)? Why? @ -agree Are old charts reviewed (outside hosp., previous admission, EMS record, old EKG, old radiological studies, urgent care reports/EKG's, snf records)? Report findings @ -yes Differential Diagnosis (chest pain, altered mental status, abdominal pain women, abdominal pain men, vaginal bleeding, weakness, fever, dyspnea, syncope, headache, dizziness, GI bleed, back pain, seizure, CVA, palpatations, mental health, musculoskeletal)? @ -prior EKG interpreted by me (3pts min.). @ -yes X-rays interpreted by me (1pt min.). @ -yes CT interpreted by me (1pt min.). @ -no U/S interpreted by me (1pt. min.). @ -no What testing was considered but not performed or refused? (CT, X-rays, U/S, labs)? Why? @ -none What meds were considered but not given or refused? Why? @ -none Did you discuss the management of the patient with other professionals (professionals i.e. [facility], [facility], lab, RT, psych nurse, director social service, powder operator, te acher, artillery officer, renal case manager)? Give summary @ -no Was smoking cessation discussed for >3mins.? @ -no Was critical care preformed (if so, how long)? @ -no Were there social determinants of health that impacted care today? How? (Homelessness, low income, unemployed, alcoholism, drug addiction, transportation, low edu. Level, literacy, decrease access to med. care, detention, rehab)? @ -none Was there de-escalation of care discussed even if they declined (Discuss DNR or withdrawal of care, Hospice)? DNR status @ -no What co-morbidities impacted this encounter? (DM, HTN, Smoking, COPD, CAD, Cancer, CVA, ARF, Chemo, Hep., AIDS, mental health diagnosis, sleep apnea, morbid obesity)? @ -none Was patient admitted / discharged? Hospital course, mention meds given and route, prescriptions, significant lab abnormalities, going to OR and other pertinent info. @ - 77 female to the ER today for evaluation, found of significant amount fever here in the ER possible unknown viral syndrome versus UTI here in the ER. Patient symptoms are improved and can be discharged home Discharge Undiagnosed new problem with uncertain prognosis? @ -no Drug Therapy requiring intensive monitoring for toxicity (Heparin, Nitro, Insulin, Cardizem)? @ -no Were any procedures done? @ -no Diagnosis/symptom? @ -Fever Acute, or Chronic, or Acute on Chronic? @ -Acute Uncomplicated (without systemic symptoms) or Complicated (systemic symptoms)? @ -Complicated Side effects of treatment? @ -no Exacerbation, Progression, or Severe Exacerbation? @ -exacerbation Poses a threat to life or bodily function? How? (Chest pain, [place], CO, pneumonia, PE, COPD, DKA, ARF, appy, cholecystitis, CVA, Diverticulitis, Homicidal, Suicidal, threat to staff... and all critical care pts) @ -yes with vaccine reaction or fever Reevaluation #5: 06/11/23 01:43 Differential Fever: Pneumonia, viral URI, endocarditis, myocarditis, pericarditis, otitis, sinusitis, peritonsillar Abscess, retropharyngeal Abscess, epiglottitis, peritonitis, appendicitis, Brenda cystitis, diverticulitis, hepatitis, colitis, UTI, PID, TOA, pyelonephritis, prostatitis, epididymitis, meningitis, enc ephalitis, pulmonary embolism, CVA, thyroid storm, pancreatitis, adrenal crisis, cavernous sinus thrombosis, this is not meant to be an all-inclusive list. Medical Decision Making - Medical Decision Making 77 female to the ER today for evaluation, found of significant amount fever here in the ER possible unknown viral syndrome versus UTI here in the ER. Patient symptoms are improved and can be discharged home - Lab Data Result diagrams: 06/11/23 02:08 06/11/23 02:08 Lab Results 06/11/23 06/11/23 06/11/23 Range/Units 02:08 02:08 02:08 WBC 9.6 (3.8-10.6) k/uL RBC 3.99 (3.80-5.40) m/uL Hgb 12.7 (11.4-16.0) gm/dL Hct 39.0 (34.0-46.0) % MCV 97.8 (80.0-100.0) fL MCH 31.8 (25.0-35.0) pg MCHC 32.5 (31.0-37.0) g/dL RDW 13.1 (11.5-15.5) % Plt Count 216 (150-450) k/uL MPV 7.7 Neutrophils % 89 % Lymphocytes % 3 % Monocytes % 7 % Eosinophils % 1 % Basophils % 0 % Neutrophils # 8.5 H (1.3-7.7) k/uL Lymphocytes # 0.2 L (1.0-4.8) k/uL Monocytes # 0.6 (0-1.0) k/uL Eosinophils # 0.1 (0-0.7) k/uL Basophils # 0.0 (0-0.2) k/uL PT 10.6 (9.0-12.0) sec INR 1.0 (<1.2) APTT 23.8 (22.0-30.0) sec Sodium 142 (137-145) mmol/L Potassium 3.6 (3.5-5.1) mmol/L Chloride 98 (98-107) mmol/L Carbon Dioxide 36 H (22-30) mmol/L Anion Gap 8 mmol/L BUN 57 H (7-17) mg/dL Creatinine 1.74 H (0.52-1.04) mg/dL Est GFR (CKD-EPI)AfAm 33 (>60 ml/min/1.73 sqM) Est GFR (CKD-EPI)NonAf 28 (>60 ml/min/1.73 sqM) Glucose 143 H (74-99) mg/dL Lactic Ac Sepsis Rflx Plasma Lactic Acid Woo (0.7-2.0) mmol/L Calcium 9.9 (8.4-10.2) mg/dL Phosphorus 4.1 (2.5-4.5) mg/dL Magnesium 1.5 L (1.6-2.3) mg/dL Total Bilirubin 0.3 (0.2-1.3) mg/dL AST 50 H (14-36) U/L ALT 16 (4-34) U/L Alkaline Phosphatase 56 (38-126) U/L Troponin I (0.000-0.034) ng/mL C-Reactive Protein 1.3 H (<1.0) mg/dL NT-Pro-B Natriuret Pep 266 pg/mL Total Protein 6.2 L (6.3-8.2) g/dL Albumin 3.4 L (3.5-5.0) g/dL Influenza Type A (PCR) (Not Detectd) Influenza Type B (PCR) (Not Detectd) RSV (PCR) (Not Detectd) SARS-CoV-2 (PCR) (Not Detectd) 06/11/23 06/11/23 06/11/23 Range/Units 02:08 02:08 02:08 WBC (3.8-10.6) k/uL RBC (3.80-5.40) m/uL Hgb (11.4-16.0) gm/dL Hct (34.0-46.0) % MCV (80.0-100.0) fL MCH (25.0-35.0) pg MCHC (31.0-37.0) g/dL RDW (11.5-15.5) % Plt Count (150-450) k/uL MPV Neutrophils % % Lymphocytes % % Monocytes % % Eosinophils % % Basophils % % Neutrophils # (1.3-7.7) k/uL Lymphocytes # (1.0-4.8) k/uL Monocytes # (0-1.0) k/uL Eosinophils # (0-0.7) k/uL Basophils # (0-0.2) k/uL PT (9.0-12.0) sec INR (<1.2) APTT (22.0-30.0) sec Sodium (137-145) mmol/L Potassium (3.5-5.1) mmol/L Chloride (98-107) mmol/L Carbon Dioxide (22-30) mmol/L Anion Gap mmol/L BUN (7-17) mg/dL Creatinine (0.52-1.04) mg/dL Est GFR (CKD-EPI)AfAm (>60 ml/min/1.73 sqM) Est GFR (CKD-EPI)NonAf (>60 ml/min/1.73 sqM) Glucose (74-99) mg/dL Lactic Ac Sepsis Rflx Plasma Lactic Acid Woo 2.2 H* (0.7-2.0) mmol/L Calcium (8.4-10.2) mg/dL Phosphorus (2.5-4.5) mg/dL Magnesium (1.6-2.3) mg/dL Total Bilirubin (0.2-1.3) mg/dL AST (14-36) U/L ALT (4-34) U/L Alkaline Phosphatase (38-126) U/L Troponin I 0.024 (0.000-0.034) ng/mL C-Reactive Protein (<1.0) mg/dL NT-Pro-B Natriuret Pep pg/mL Total Protein (6.3-8.2) g/dL Albumin (3.5-5.0) g/dL Influenza Type A (PCR) Not Detected (Not Detectd) Influenza Type B (PCR) Not Detected (Not Detectd) RSV (PCR) Not Detected (Not Detectd) SARS-CoV-2 (PCR) Not Detected (Not Detectd) 06/11/23 Range/Units 03:50 WBC (3.8-10.6) k/uL RBC (3.80-5.40) m/uL Hgb (11.4-16.0) gm/dL Hct (34.0-46.0) % MCV (80.0-100.0) fL MCH (25.0-35.0) pg MCHC (31.0-37.0) g/dL RDW (11.5-15.5) % Plt Count (150-450) k/uL MPV Neutrophils % % Lymphocytes % % Monocytes % % Eosinophils % % Basophils % % Neutrophils # (1.3-7.7) k/uL Lymphocytes # (1.0-4.8) k/uL Monocytes # (0-1.0) k/uL Eosinophils # (0-0.7) k/uL Basophils # (0-0.2) k/uL PT (9.0-12.0) sec INR (<1.2) APTT (22.0-30.0) sec Sodium (137-145) mmol/L Potassium (3.5-5.1) mmol/L Chloride (98-107) mmol/L Carbon Dioxide (22-30) mmol/L Anion Gap mmol/L BUN (7-17) mg/dL Creatinine (0.52-1.04) mg/dL Est GFR (CKD-EPI)AfAm (>60 ml/min/1.73 sqM) Est GFR (CKD-EPI)NonAf (>60 ml/min/1.73 sqM) Glucose (74-99) mg/dL Lactic Ac Sepsis Rflx Y Plasma Lactic Acid Woo (0.7-2.0) mmol/L Calcium (8.4-10.2) mg/dL Phosphorus (2.5-4.5) mg/dL Magnesium (1.6-2.3) mg/dL Total Bilirubin (0.2-1.3) mg/dL AST (14-36) U/L ALT (4-34) U/L Alkaline Phosphatase (38-126) U/L Troponin I (0.000-0.034) ng/mL C-Reactive Protein (<1.0) mg/dL NT-Pro-B Natriuret Pep pg/mL Total Protein (6.3-8.2) g/dL Albumin (3.5-5.0) g/dL Influenza Type A (PCR) (Not Detectd) Influenza Type B (PCR) (Not Detectd) RSV (PCR) (Not Detectd) SARS-CoV-2 (PCR) (Not Detectd) - EKG Data -: EKG Interpreted by Me (EKG is sinus 93 OH 179 QRS 46 QTc 440) - Radiology Data Radiology results: report reviewed (Chest x-rays negative for acute disease), image reviewed Disposition Clinical Impression: Dehydration, Weakness, Fever, Recurrent falls, Hypertension Narrative: Reaction to flu vaccine Disposition: HOME SELF-CARE Condition: Good Instructions (If sedation given, give patient instructions): Fever in Adults (ED) Prescriptions: Amoxic-Pot Clav 875-125Mg [Augmentin 875-125] 1 tab PO Q12HR #30 tablet Is patient prescribed a controlled substance at d/c from ED?: No Referrals: Alberto Lehman DO [Primary Care Provider] - 1-2 days Time of Disposition: 06:20
[2023-06-11 03:02] LABS: Partial Thromboplastin Time 23.8 sec (22.0-30.0); Prothrombin Time 10.6 sec (9.0-12.0)
[2023-06-11 03:03] LABS: ALT 16 U/L (4-34); AST 50 U/L (14-36); African American GFR (CKD) 33 (>60 ml/min/1.73 sqM); Albumin 3.4 g/dL (3.5-5.0); Alkaline Phosphatase 56 U/L (38-126); Anion Gap 8 mmol/L; Blood Urea Nitrogen 57 mg/dL (7-17); C Reactive Protein 1.3 mg/dL (<1.0); Calcium 9.9 mg/dL (8.4-10.2); Carbon Dioxide 36 mmol/L (22-30); Chloride 98 mmol/L (98-107); Glucose 143 mg/dL (74-99); Magnesium 1.5 mg/dL (1.6-2.3); Non-African American GFR(CKD) 28 (>60 ml/min/1.73 sqM); Phosphorus 4.1 mg/dL (2.5-4.5); Potassium 3.6 mmol/L (3.5-5.1); Sodium 142 mmol/L (137-145); Total Bilirubin 0.3 mg/dL (0.2-1.3); Total Protein 6.2 g/dL (6.3-8.2)
[2023-06-11 03:09] LABS: NT-Pro-B-Type Natriuretic Pept 266 pg/mL
[2023-06-11 03:31] VITALS: TEMP 100.5
[2023-06-11 03:45] LABS: Basophils % (A) 0 %; Eosinophils # (A) 0.1 k/uL (0-0.7); Eosinophils % (A) 1 %; HGB 12.7 gm/dL (11.4-16.0); Lymphocytes # (A) 0.2 k/uL (1.0-4.8); Lymphocytes % (A) 3 %; MCH 31.8 pg (25.0-35.0); MCHC 32.5 g/dL (31.0-37.0); MCV 97.8 fL (80.0-100.0); Mean Platelet Volume 7.7; Monocytes # (A) 0.6 k/uL (0-1.0); Monocytes % (A) 7 %; Neutrophils # (A) 8.5 k/uL (1.3-7.7); Neutrophils % (A) 89 %; Platelet Count 216 k/uL (150-450); RBC 3.99 m/uL (3.80-5.40); RDW 13.1 % (11.5-15.5); WBC 9.6 k/uL (3.8-10.6)
[2023-06-11] MEDS ORDERED: AMOXIC-POT CLAV 875-125MG 1 EACH TAB PO STA (06:20)
[2023-06-11] MEDS ORDERED: AMOXIC-POT CLAV 875MG STARTER PACK 2 TAB BTL PO STA (06:20)
[2023-06-11] MEDS ORDERED: cefTRIAXone IN SWFI 1,000 MG/10 ML SYRINGE IVP STA (06:21)
[2023-06-11 06:29] VITALS: BP 120/55; PULSE 74; RESP 18
--- NOTE | 2023-06-11 06:54 | XR ---
EXAM: XR Chest, 1 View CLINICAL HISTORY: ITS.REASON XR Reason: cp TECHNIQUE: Frontal view of the chest. COMPARISON: 07/29/2022 FINDINGS: Lungs: Elevated diaphragms, small lung volumes. Probable chronic/senescent interstitial changes. Subsegmental areas of scar/and atelectasis. Pleural space: Unremarkable. No pneumothorax. Heart: Unremarkable. No cardiomegaly. Mediastinum: Unremarkable. Bones/joints: Unremarkable. IMPRESSION: No acute findings in the chest.
== END 2023-06-11 06:27 | disposition home or self-care (01) ==
LOC: EC 01:13
DX: E86.0 Dehydration (principal); R50.9 Fever, unspecified; I11.0 Hypertensive heart disease with heart failure; I50.9 Heart failure, unspecified; R29.6 Repeated falls; E11.9 Type 2 diabetes mellitus without complications; E78.5 Hyperlipidemia, unspecified; M06.9 Rheumatoid arthritis, unspecified; Z20.822 Contact with and (suspected) exposure to COVID-19; Z79.84 Long term (current) use of oral hypoglycemic drugs; Z79.82 Long term (current) use of aspirin; Z79.899 Other long term (current) drug therapy; Z90.49 Acquired absence of other specified parts of digestive tract; Z88.8 Allergy status to other drugs, medicaments and biological substances
CPT/HCPCS: 36415; 93005; 83880; 80053; 83605; 83735; 84100; 84484; 85025; 85610; 85730; 86140; 87040; 87636; 71045; 99285; 96374; 96361 ×2; J0696

== ENCOUNTER 2023-09-13 18:33 | Inpatient (IN) | payer MEDICARE ==
--- NOTE | 2023-09-13 19:15 | XR ---
EXAMINATION TYPE: XR chest 2V DATE OF EXAM: 09/13/2023 7:02 PM CLINICAL INDICATION:Female, 78 years old with history of sob productive cough; [facility] COMPARISON: Chest radiographs from 06/11/2023. TECHNIQUE: XR chest 2V Frontal and lateral views of the chest. FINDINGS: Lungs/Pleura: There is no evidence of pleural effusion, focal consolidation, or pneumothorax. Pulmonary vascularity: Unremarkable. Heart/mediastinum: Cardiomediastinal silhouette is unremarkable. Musculoskeletal: No acute osseous pathology. Increased kyphosis of the thoracic spine. IMPRESSION: No acute cardiopulmonary disease/process.
--- NOTE | 2023-09-13 19:16 | XR ---
EXAMINATION TYPE: XR shoulder complete RT DATE OF EXAM: 09/13/2023 7:02 PM CLINICAL INDICATION:Female, 78 years old with history of FALL; COMPARISON: 06/11/2023 TECHNIQUE: XR shoulder complete RT; examined in AP, internally rotated and scapular Y projections. FINDINGS: No evidence of acute osseous pathology, joint dislocation, or soft tissue swelling. The remaining po rtions of the visualized chest are unremarkable. Mild degeneration changes of the left acromion and distal clavicle. IMPRESSION: No acute osseous pathology. Mild shoulder osteoarthrosis.
--- NOTE | 2023-09-13 19:50 | ED ---
General Adult HPI - General Source: patient, family, RN notes reviewed Mode of arrival: wheelchair Limitations: no limitations <Jessenia Luciano - Last Filed: 09/13/23 19:49> - History of Present Illness -: days(s) Location: upper extremity (Left shoulder) Radiation: non-radiation Quality: aching Consistency: constant Improves with: none Worsens with: none Associated Symptoms: cough, shortness of breath Treatments Prior to Arrival: other (Antibiotic) <Jeromy García - Last Filed: 10/31/23 09:10> - General Chief complaint: Upper Respiratory Infection Stated complaint: SOB, Weakness Time Seen by Provider: 09/13/23 19:49 - History of Present Illness Initial comments: 78-year-old female presents the emergency department with a chief complaint of worsening cough and congestion. Patient is currently on antibiotics for his symptoms without improvement. (Jessenia Luciano) Patient is 78-year-old woman with underlying hypertension, diabetes, congestive heart failure. She has been having worsening of cough and dyspnea going back 1 to 2 days. She was given course of antibiotics with no improvement. Review of systems patient having some left shoulder pain and did have mild trauma but she has noted no obvious deformity. (Jeromy García) - Related Data Home Medications Medication Instructions Recorded Confirmed Simvastatin [Zocor] 20 mg PO HS 07/18/14 09/24/23 Ferrous Sulfate [Iron (65 MG 325 mg PO W/SUPPER 11/10/21 09/24/23 Elemental)] Potassium Chloride [Klor-Con M20] 20 meq PO DAILY 07/23/22 09/24/23 Primidone 75 mg PO BID 07/23/22 09/24/23 allopurinoL [Zyloprim] 300 mg PO DAILY 07/23/22 09/24/23 busPIRone HCl [Buspar] 5 mg PO DAILY 07/23/22 09/24/23 Carbidopa-Levodopa 25-100 mg 1 tab PO TID 09/14/23 09/24/23 [Sinemet 25-100 mg] Escitalopram Oxalate [Lexapro] 10 mg PO DAILY 09/14/23 09/24/23 Insulin Glargine,Hum.rec.anlog 20 units SQ HS 09/14/23 09/24/23 [Lantus Solostar Pen] Levothyroxine Sodium [Synthroid] 25 mcg PO DAILY 09/14/23 09/24/23 Oxybutynin Xl [Ditropan XL] 5 mg PO TID 09/14/23 09/24/23 Previous Rx's Medication Instructions Recorded Apixaban [Eliquis] 5 mg PO BID tab 08/04/22 Metoprolol Succinate (ER) [Toprol 25 mg PO BID tab 08/04/22 XL] Albuterol Inhaler [Ventolin Hfa 2 puff INHALATION Q6H PRN 30 Days 09/22/23 Inhaler] #1 each Aspirin 81 mg PO DAILY 30 Days #30 tab 09/22/23 Bumetanide [BUMEX] 1 mg PO DAILY 30 Days #30 tab 09/22/23 Losartan [Cozaar] 12.5 mg PO DAILY 30 Days #15 tab 09/22/23 Tamsulosin [Flomax] 0.4 mg PO PC-BRKFST 30 Days #30 cap 09/22/23 amLODIPine [Norvasc] 10 mg PO DAILY 30 Days #30 tab 09/22/23 guaiFENesin [Mucinex] 600 mg PO Q12HR 5 Days #10 tab 09/22/23 Acetaminophen Tab [Tylenol] 650 mg PO Q6HR PRN tab 09/28/23 Amiodarone [Cordarone] 200 mg PO DAILY tab 09/28/23 INSULIN ASPART (NovoLOG) [NovoLOG 0 unit SQ ACHS each 09/28/23 (formulary)] Nystatin 100,000Unit/gm Cream 1 applic TOPICAL BID each 09/28/23 [Mycostatin Cream] Allergies Allergy/AdvReac Type Severity Reaction Status Date / Time gabapentin AdvReac Hallucinati Verified 09/24/23 14:25 ons Review of Systems ROS Other: All systems not noted in ROS Statement are negative. <Jessenia Luciano - Last Filed: 09/13/23 19:49> ROS Other: All systems not noted in ROS Statement are negative. Constitutional: Reports: weakness. Denies: fever, chills Respiratory: Reports: cough, dyspnea. Denies: hemoptysis Cardiovascular: Denies: chest pain, palpitations, edema, syncope Gastrointestinal: Denies: abdominal pain, vomiting, diarrhea, melena, hematochezia Genitourinary: Denies: dysuria, hematuria Musculoskeletal: Reports: as per HPI, arthralgia. Denies: back pain Skin: Denies: rash Neurological: Denies: headache, weakness <RosakristiJeromy - Last Filed: 10/31/23 09:10> ROS Statement: Those systems with pertinent positive or pertinent negative responses have been documented in the HPI. Past Medical History Past Medical History: Heart Failure, Diabetes Mellitus, Hyperlipidemia, Hypertension, Pneumonia, Rheumatoid Arthritis (RA) Additional Past Medical History / Comment(s): tremors, renal lithiasis, hemorrhoids(sx done), "has had problems w/low magnesium.anemia. per posue pt had past cancer "uterine or cervical-had hysterectomy". it was previously charted that pt had hx of ra and cfh spouse not able to verify this, History of Any Multi-Drug Resistant Organisms: ESBL Date of last positivie culture/infection: 05/11/18 MDRO Source:: ESBL URINE Past Surgical History: Appendectomy, Hysterectomy, Orthopedic Surgery, Tonsillectomy Additional Past Surgical History / Comment(s): rt total knee repalcement, cataracts, hemmorroidectomy, colonoscopy Past Anesthesia/Blood Transfusion Reactions: No Reported Reaction Additional Past Anesthesia/Blood Transfusion Reaction / Comment(s): per psouse- pt never receieved any blood Past Psychological History: No Psychological Hx Reported Smoking Status: Never smoker Past Alcohol Use History: None Reported Past Drug Use History: None Reported - Past Family History Mother Family Medical History: Diabetes Mellitus Father Additional Family Medical History / Comment(s): brain anuerysm <Jessenia Luciano - Last Filed: 09/13/23 19:49> General Exam Limitations: no limitations <Jessenia Luciano - Last Filed: 09/13/23 19:49> General appearance: alert, in no apparent distress Head exam: Present: atraumatic, normocephalic Eye exam: Present: normal appearance. Absent: scleral icterus, conjunctival injection Neck exam: Present: normal inspection Respiratory exam: Present: rales, rhonchi. Absent: wheezes, stridor, accessory muscle use Cardiovascular Exam: Present: bradycardia, normal heart sounds. Absent: systolic murmur, diastolic murmur, rubs, gallop GI/Abdominal exam: Present: soft. Absent: distended, tenderness, guarding, rebound, rigid, mass Extremities exam: Present: normal inspection, normal capillary refill. Absent: pedal edema, calf tenderness Back exam: Present: normal inspection. Absent: CVA tenderness (R), CVA tenderness (L) Neurological exam: Present: alert Skin exam: Present: warm, dry, intact, normal color. Absent: rash <Jeromy García - Last Filed: 10/31/23 09:10> - General Exam Comments Initial Comments: Visual Physical Exam Vital signs reviewed General: Well-appearing, nontoxic, no acute distress. Head: Normocephalic, atraumatic Eyes: PERRLA, EOMI ENT: Airway patent Chest: Nonlabored breathing Skin: No visual rash, normal skin tone Neuro: Alert and oriented 3 Musculoskeletal: No gross abnormalities (Jessenia Luciano) Course Vital Signs 09/13/23 09/13/23 09/14/23 18:40 22:40 00:00 Temperature 98.8 F Pulse Rate 43 L 87 Respiratory 20 24 18 Rate Blood Pressure 132/75 149/87 O2 Sat by Pulse 90 L 96 Oximetry 09/14/23 09/14/23 03:00 06:15 Temperature Pulse Rate 78 89 Respiratory 20 20 Rate Blood Pressure 147/87 155/79 O2 Sat by Pulse 95 93 L Oximetry Medical Decision Making <Jessenia Luciano - Last Filed: 09/13/23 19:49> - Lab Data Result diagrams: 09/22/23 05:38 09/22/23 05:38 <RickyJeromy - Last Filed: 10/31/23 09:10> - Medical Decision Making I performed the quick note portion of this exam, verbal signature Jessenia Luciano PA-C (Jessenia Luciano) The patient had chest x-ray which I interpreted as negative for acute infiltrate, pneumothorax, congestive heart failure The patient had left shoulder x-ray which I interpreted as negative for acute bony injury Was pt. sent in by a medical professional or institution (JOSUÉ Carl, ELECTRIC APPLIANCE INSTALLER, urgent care, hospital, or long term...) When possible be specific @ -[No] Did you speak to anyone other than the patient for history (EMS, parent, family, police, friend...)? What history was obtained from this source @ -[No] Did you review nursing and triage notes (agree or disagree)? Why? @ -[I reviewed and agree with nursing and triage notes] Were old charts reviewed (outside hosp., previous admission, EMS record, old EKG, old radiological studies, urgent care reports/EKG's, long term records)? Report findings @ -[No old charts were reviewed] Differential Diagnosis (chest pain, altered mental status, abdominal pain women, abdominal pain men, vaginal bleeding, weakness, fever, dyspnea, syncope, hea dache, dizziness, GI bleed, back pain, seizure, CVA, palpatations, mental health, musculoskeletal)? @ -[Differential Dyspnea: Coronary syndrome, arrhythmia, tamponade, asthma, COPD, pulmonary embolism, pneumonia, pneumothorax, pulmonary effusion, anaphylaxis, diabetic ketoacidosis, flailed chest, pulmonary contusion, diaphragmatic rupture, anemia, neuromuscular, this is not meant to be an all-inclusive list. EKG interpreted by me (3pts min.). @ -[As above] X-rays interpreted by me (1pt min.). @ -[I interpreted as above CT interpreted by me (1pt min.). @ -[None done] U/S interpreted by me (1pt. min.). @ -[None done] What testing was considered but not performed or refused? (CT, X-rays, U/S, labs)? Why? @ -[None] What meds were considered but not given or refused? Why? @ -[None] Did you discuss the management of the patient with other professionals (professionals i.e. , PA, ELECTRIC APPLIANCE INSTALLER, lab, RT, psych nurse, school social worker, machine operators, teacher, aoc operations intelligence officer, clinical case manager)? Give summary @ -Case discussed with admitting physician and treatment recommendations incorporated Was smoking cessation discussed for >3mins.? @ -[No] Was critical care preformed (if so, how long)? @ -[No] Were there social determinants of health that impacted care today? How? (Homelessness, low income, unemployed, alcoholism, drug addiction, transportation, low edu. Level, literacy, decrease access to med. care, mcc, rehab)? @ -[No] Was there de-escalation of care discussed even if they declined (Discuss DNR or withdrawal of care, Hospice)? DNR status @ -[No] What co-morbidities impacted this encounter? (DM, HTN, Smoking, COPD, CAD, Cancer, CVA, ARF, Chemo, Hep., AIDS, mental health diagnosis, sleep apnea, morbid obesity)? @ -[Hypertension, diabetes, congestive heart failure Was patient admitted / discharged? Hospital course, mention meds given and route, prescriptions, significant lab abnormalities, going to OR and other pertinent info. @ -[The patient is a 78-year-old woman with dyspnea who is found to have COVID- 19 infection. The patient having poor saturations on room air. She is not able to ambulate without desatting further. Patient will be admitted to have further evaluation and treatment Undiagnosed new problem with uncertain prognosis? @ -[No] Drug Therapy requiring intensive monitoring for toxicity (Heparin, Nitro, Insulin, Cardizem)? @ -[No] Were any procedures done? @ -[No] Diagnosis/symptom? @ -Acute dyspnea Acute COVID-19 infection Acute, or Chronic, or Acute on Chronic? @ -[Acute Uncomplicated (without systemic symptoms) or Complicated (systemic symptoms)? @ -[Complicated by hypoxemia Side effects of treatment? @ -[No] Exacerbation, Progression, or Severe Exacerbation? @ -[No] Poses a threat to life or bodily function? How? (Chest pain, [place], [place], pneumonia, PE, COPD, DKA, ARF, appy, cholecystitis, CVA, Diverticulitis, Homicidal, Suicidal, threat to staff... and all critical care pts) @ -Yes (Jeromy García) - Lab Data Lab Results 09/13/23 09/13/23 09/13/23 Range/Units 18:45 20:00 20:09 WBC 10.5 (3.8-10.6) k/uL RBC 4.70 (3.80-5.40) m/uL Hgb 14.7 (11.4-16.0) gm/dL Hct 45.3 (34.0-46.0) % MCV 96.4 (80.0-100.0) fL MCH 31.4 (25.0-35.0) pg MCHC 32.6 (31.0-37.0) g/dL RDW 13.5 (11.5-15.5) % Plt Count 261 (150-450) k/uL MPV 7.8 Neutrophils % 78 % Lymphocytes % 15 % Monocytes % 5 % Eosinophils % 1 % Basophils % 0 % Neutrophils # 8.2 H (1.3-7.7) k/uL Lymphocytes # 1.6 (1.0-4.8) k/uL Monocytes # 0.6 (0-1.0) k/uL Eosinophils # 0.1 (0-0.7) k/uL Basophils # 0.0 (0-0.2) k/uL Sodium (137-145) mmol/L Potassium (3.5-5.1) mmol/L Chloride (98-107) mmol/L Carbon Dioxide (22-30) mmol/L Anion Gap mmol/L BUN (7-17) mg/dL Creatinine (0.52-1.04) mg/dL Est GFR (CKD-EPI)AfAm (>60 ml/min/1.73 sqM) Est GFR (CKD-EPI)NonAf (>60 ml/min/1.73 sqM) Glucose (74-99) mg/dL POC Glucose (mg/dL) 65 L (70-110) mg/dL POC Glu Side Door Worker ID Deborah Morrison Lactic Ac Sepsis Rflx Plasma Lactic Acid Woo (0.7-2.0) mmol/L Calcium (8.4-10.2) mg/dL Total Bilirubin (0.2-1.3) mg/dL AST (14-36) U/L ALT (4-34) U/L Alkaline Phosphatase (38-126) U/L Total Protein (6.3-8.2) g/dL Albumin (3.5-5.0) g/dL Influenza Type A (PCR) Not Detected (Not Detectd) Influenza Type B (PCR) Not Detected (Not Detectd) RSV (PCR) Not Detected (Not Detectd) SARS-CoV-2 (PCR) Detected A (Not Detectd) 09/13/23 09/13/23 09/13/23 Range/Units 20:09 20:09 20:44 WBC (3.8-10.6) k/uL RBC (3.80-5.40) m/uL Hgb (11.4-16.0) gm/dL Hct (34.0-46.0) % MCV (80.0-100.0) fL MCH (25.0-35.0) pg MCHC (31.0-37.0) g/dL RDW (11.5-15.5) % Plt Count (150-450) k/uL MPV Neutrophils % % Lymphocytes % % Monocytes % % Eosinophils % % Basophils % % Neutrophils # (1.3-7.7) k/uL Lymphocytes # (1.0-4.8) k/uL Monocytes # (0-1.0) k/uL Eosinophils # (0-0.7) k/uL Basophils # (0-0.2) k/uL Sodium 142 (137-145) mmol/L Potassium 4.1 (3.5-5.1) mmol/L Chloride 94 L (98-107) mmol/L Carbon Dioxide 37 H (22-30) mmol/L Anion Gap 11 mmol/L BUN 51 H (7-17) mg/dL Creatinine 1.96 H (0.52-1.04) mg/dL Est GFR (CKD-EPI)AfAm 28 (>60 ml/min/1.73 sqM) Est GFR (CKD-EPI)NonAf 24 (>60 ml/min/1.73 sqM) Glucose 70 L (74-99) mg/dL POC Glucose (mg/dL) (70-110) mg/dL POC Glu Side Door Worker ID Lactic Ac Sepsis Rflx Y Plasma Lactic Acid Woo 2.2 H* (0.7-2.0) mmol/L Calcium 9.9 (8.4-10.2) mg/dL Total Bilirubin 0.3 (0.2-1.3) mg/dL AST 22 (14-36) U/L ALT 9 (4-34) U/L Alkaline Phosphatase 60 (38-126) U/L Total Protein 6.8 (6.3-8.2) g/dL Albumin 3.6 (3.5-5.0) g/dL Influenza Type A (PCR) (Not Detectd) Influenza Type B (PCR) (Not Detectd) RSV (PCR) (Not Detectd) SARS-CoV-2 (PCR) (Not Detectd) 09/13/23 09/13/23 09/14/23 Range/Units 23:05 23:59 02:51 WBC (3.8-10.6) k/uL RBC (3.80-5.40) m/uL Hgb (11.4-16.0) gm/dL Hct (34.0-46.0) % MCV (80.0-100.0) fL MCH (25.0-35.0) pg MCHC (31.0-37.0) g/dL RDW (11.5-15.5) % Plt Count (150-450) k/uL MPV Neutrophils % % Lymphocytes % % Monocytes % % Eosinophils % % Basophils % % Neutrophils # (1.3-7.7) k/uL Lymphocytes # (1.0-4.8) k/uL Monocytes # (0-1.0) k/uL Eosinophils # (0-0.7) k/uL Basophils # (0-0.2) k/uL Sodium (137-145) mmol/L Potassium (3.5-5.1) mmol/L Chloride (98-107) mmol/L Carbon Dioxide (22-30) mmol/L Anion Gap mmol/L BUN (7-17) mg/dL Creatinine (0.52-1.04) mg/dL Est GFR (CKD-EPI)AfAm (>60 ml/min/1.73 sqM) Est GFR (CKD-EPI)NonAf (>60 ml/min/1.73 sqM) Glucose (74-99) mg/dL POC Glucose (mg/dL) 119 H 79 (70-110) mg/dL POC Glu Side Door Worker ID Petty, [place] Petty, Telma Lactic Ac Sepsis Rflx Plasma Lactic Acid Woo 1.7 (0.7-2.0) mmol/L Calcium (8.4-10.2) mg/dL Total Bilirubin (0.2-1.3) mg/dL AST (14-36) U/L ALT (4-34) U/L Alkaline Phosphatase (38-126) U/L Total Protein (6.3-8.2) g/dL Albumin (3.5-5.0) g/dL Influenza Type A (PCR) (Not Detectd) Influenza Type B (PCR) (Not Detectd) RSV (PCR) (Not Detectd) SARS-CoV-2 (PCR) (Not Detectd) 09/14/23 09/14/23 09/14/23 Range/Units 06:37 10:31 10:39 WBC (3.8-10.6) k/uL RBC (3.80-5.40) m/uL Hgb (11.4-16.0) gm/dL Hct (34.0-46.0) % MCV (80.0-100.0) fL MCH (25.0-35.0) pg MCHC (31.0-37.0) g/dL RDW (11.5-15.5) % Plt Count (150-450) k/uL MPV Neutrophils % % Lymphocytes % % Monocytes % % Eosinophils % % Basophils % % Neutrophils # (1.3-7.7) k/uL Lymphocytes # (1.0-4.8) k/uL Monocytes # (0-1.0) k/uL Eosinophils # (0-0.7) k/uL Basophils # (0-0.2) k/uL Sodium 140 (137-145) mmol/L Potassium 3.8 (3.5-5.1) mmol/L Chloride 98 (98-107) mmol/L Carbon Dioxide 35 H (22-30) mmol/L Anion Gap 7 mmol/L BUN 50 H (7-17) mg/dL Creatinine 2.08 H (0.52-1.04) mg/dL Est GFR (CKD-EPI)AfAm 26 (>60 ml/min/1.73 sqM) Est GFR (CKD-EPI)NonAf 23 (>60 ml/min/1.73 sqM) Glucose 195 H (74-99) mg/dL POC Glucose (mg/dL) 98 189 H (70-110) mg/dL POC Glu Side Door Worker ID Telma Petty Lesli Lactic Ac Sepsis Rflx Plasma Lactic Acid Woo (0.7-2.0) mmol/L Calcium 9.1 (8.4-10.2) mg/dL Total Bilirubin (0.2-1.3) mg/dL AST (14-36) U/L ALT (4-34) U/L Alkaline Phosphatase (38-126) U/L Total Protein (6.3-8.2) g/dL Albumin (3.5-5.0) g/dL Influenza Type A (PCR) (Not Detectd) Influenza Type B (PCR) (Not Detectd) RSV (PCR) (Not Detectd) SARS-CoV-2 (PCR) (Not Detectd) Disposition <Jessenia Luciano - Last Filed: 09/13/23 19:49> <Jeromy García - Last Filed: 10/31/23 09:10> Clinical Impression: COVID-19, Delirium due to general medical condition Disposition: ADMITTED IP TO THIS HOSP Condition: Fair
[2023-09-13 20:01] LABS: Glucose,Whole Blood 65 mg/dL (70-110)
[2023-09-13 20:27] LABS: Basophils % (A) 0 %; Eosinophils # (A) 0.1 k/uL (0-0.7); Eosinophils % (A) 1 %; HCT 45.3 % (34.0-46.0); HGB 14.7 gm/dL (11.4-16.0); Lymphocytes # (A) 1.6 k/uL (1.0-4.8); Lymphocytes % (A) 15 %; MCH 31.4 pg (25.0-35.0); MCHC 32.6 g/dL (31.0-37.0); MCV 96.4 fL (80.0-100.0); Mean Platelet Volume 7.8; Monocytes # (A) 0.6 k/uL (0-1.0); Monocytes % (A) 5 %; Neutrophils # (A) 8.2 k/uL (1.3-7.7); Neutrophils % (A) 78 %; Platelet Count 261 k/uL (150-450); RDW 13.5 % (11.5-15.5); WBC 10.5 k/uL (3.8-10.6)
[2023-09-13 20:39] LABS: ALT 9 U/L (4-34); AST 22 U/L (14-36); African American GFR (CKD) 28 (>60 ml/min/1.73 sqM); Albumin 3.6 g/dL (3.5-5.0); Alkaline Phosphatase 60 U/L (38-126); Anion Gap 11 mmol/L; Blood Urea Nitrogen 51 mg/dL (7-17); Calcium 9.9 mg/dL (8.4-10.2); Carbon Dioxide 37 mmol/L (22-30); Chloride 94 mmol/L (98-107); Glucose 70 mg/dL (74-99); Non-African American GFR(CKD) 24 (>60 ml/min/1.73 sqM); Potassium 4.1 mmol/L (3.5-5.1); Sodium 142 mmol/L (137-145); Total Bilirubin 0.3 mg/dL (0.2-1.3); Total Protein 6.8 g/dL (6.3-8.2)
[2023-09-13] MEDS: SODIUM CHLORIDE 0.9% 500 ML 500 ML IV STA (22:47)
[2023-09-14 00:04] LABS: Glucose,Whole Blood 119 mg/dL (70-110)
[2023-09-14] MEDS ORDERED: NALOXONE 0.4 MG/ML 1 ML VIAL IV PRN (01:03)
[2023-09-14] MEDS ORDERED: ACETAMINOPHEN TAB 325 MG TAB PO PRN ×2 (01:03→01:08)
[2023-09-14] MEDS ORDERED: polyethylene glycoL 3350 17 GM POWD.PACK PO PRN (01:06)
[2023-09-14] MEDS: SODIUM CHLORIDE 0.9% 1,000 ML IV SCH (02:22)
[2023-09-14 02:57] LABS: Glucose,Whole Blood 79 mg/dL (70-110)
[2023-09-14 06:47] LABS: Glucose,Whole Blood 98 mg/dL (70-110)
[2023-09-14] MEDS: glipiZIDE 10 MG TAB PO SCH (10:10)
[2023-09-14] MEDS: INSULIN ASPART (NovoLOG) 100 UNIT/ML VIAL SQ SCH ×2 (10:10→18:29)
[2023-09-14] MEDS: POTASSIUM CHLORIDE ER 20 MEQ TAB.ER PO SCH (10:27)
[2023-09-14] MEDS: ASPIRIN 81 MG PO SCH (10:28)
[2023-09-14] MEDS: TAMSULOSIN 0.4 MG CAP.ER.24H PO SCH (10:28)
[2023-09-14] MEDS: DOCUSATE 100 MG CAP PO SCH (10:28)
[2023-09-14] MEDS: BETHANECHOL 10 MG TAB PO SCH (10:28)
[2023-09-14] MEDS: LOSARTAN 25 MG TAB PO SCH (10:28)
[2023-09-14] MEDS: METOPROLOL SUCCINATE (ER) 25 MG TAB.ER.24H PO SCH (10:28)
[2023-09-14] MEDS: APIXABAN 5 MG TAB PO SCH (10:28)
[2023-09-14] MEDS: PRIMIDONE 25 MG TAB PO SCH (10:29)
[2023-09-14 10:50] LABS: Glucose,Whole Blood 189 mg/dL (70-110)
[2023-09-14 11:17] LABS: African American GFR (CKD) 26 (>60 ml/min/1.73 sqM); Anion Gap 7 mmol/L; Blood Urea Nitrogen 50 mg/dL (7-17); Calcium 9.1 mg/dL (8.4-10.2); Carbon Dioxide 35 mmol/L (22-30); Chloride 98 mmol/L (98-107); Glucose 195 mg/dL (74-99); Non-African American GFR(CKD) 23 (>60 ml/min/1.73 sqM); Potassium 3.8 mmol/L (3.5-5.1); Sodium 140 mmol/L (137-145)
--- NOTE | 2023-09-14 12:18 | HP ---
HISTORY AND PHYSICAL CHIEF COMPLAINT: Shortness of breath and weakness. HISTORY OF PRESENT ILLNESS: This is a 78-year-old woman with a past medical history of multiple medical problems including CHF, diabetes mellitus, hypertension, hyperlipidemia, rheumatoid arthritis, and ESBL E coli, was complaining of shortness of breath and cough for the past couple of days. The patient also became extremely weak and shaky. The patient came to [facility]. COVID-19 was negative. The chest x-ray, which I reviewed personally showed not much abnormalities. Pulse ox is 93% on 2 L. The patient was admitted for further evaluation and treatment. There is no history of any rigors, or chills at this time. PAST MEDICAL HISTORY: Reviewed include CHF, diabetes mellitus, hypertension, hyperlipidemia. Rest of history and rest of the chart is also reviewed. HOME MEDICATIONS: Reviewed include BuSpar, doses and rest of medications reviewed. ALLERGIES: Gabapentin. FAMILY HISTORY: History of diabetes mellitus, brain aneurysm. SOCIAL HISTORY: No history of smoking or alcohol. REVIEW OF SYSTEMS: A 14-point review of systems is negative except as mentioned earlier. PHYSICAL EXAMINATION: VITAL SIGNS: Pulse is 78, blood pressure 147/87, respirations 20. HEENT: Conjunctivae normal. NECK: No JVD. CARDIOVASCULAR: S1, S2. RESPIRATIONS: Breath sounds diminished at the bases. ABDOMEN: Soft, nontender. LEGS: No edema. NERVOUS SYSTEM: Diffusely weak. SKIN: No ulcer, rash, bleeding. JOINTS: No active deforming arthropathy. LABORATORY DATA: Reviewed. ASSESSMENT: 1. Acute COVID-19 infection with severe dehydration present on admission. 2. Acute renal failure secondary to acute tubular necrosis and prerenal failure. 3. Diabetes mellitus, type 2. 4. Hypertension. 5. Hyperlipidemia. 6. History of congestive heart failure. 7. History of rheumatoid arthritis. RECOMMENDATIONS AND DISCUSSION: This is a 78-year-old woman, who presented with multiple complex medical issues. At this time, I recommend to continue current medications. I would recommend cautious hydration. Otherwise, Cardiology consultation. Infectious Disease evaluation. Resume home medications once they are confirmed. Prognosis guarded because of multiple complex medical issues. We will evaluate the possibility of remdesivir in this very sick individual. Further recommendations to follow. MMODL / IJN: [id number] /
[2023-09-14 13:05] LABS: C Reactive Protein 1.4 mg/dL (<1.0)
[2023-09-14] MEDS: BUMETANIDE 1 MG TAB PO SCH (14:15)
--- NOTE | 2023-09-14 14:22 | P.CRDCN ---
History of Present Illness Consult date: 09/14/23 Consult reason: congestive heart failure History of present illness: History of present illness: This is a 78 year old female patient of scab with past medical history of paroxysmal atrial fibrillation, cardiomyopathy, hypertension, dyslipidemia, overweight, known EF of 35% up from 25%. We have been asked to evaluate the patient for heart failure. Patient came into the hospital due to cough and congestion and failure of antibiotics to improve her symptoms. Patient has been afebrile, heart rate in the 70s and 80s, blood pressure 183/72, pulse ox 94% on 2 L nasal cannula. EKG sinus rhythm at 72 bpm Chest x-ray: No acute process D-dimer 0.34. C-reactive protein 1.4. ProBNP 311. BUN 50 creatinine 2.08. CBC unremarkable. Sodium 140, potassium 3.8. Influenza A, influenza B, RSV not detected. Covid 19 detected Home cardiac medications: Eliquis 5 mg twice daily, Lasix 20 mg daily, losartan 50 mg daily, Toprol-XL 25 mg twice daily, potassium 20 mg once daily, simvastatin 20 g at bedtime. Echocardiogram performed in the office 11/2022 revealed EF of 35%, mild AR. Review Of Systems: At the time of my exam: CONSTITUTIONAL: Denies fever or chills. CARDIOVASCULAR: Denies chest pain, Denies shortness of breath, no orthopnea, PND or palpitations. RESPIRATORY: + cough and shortness of breath. GASTROINTESTINAL: Denies abdominal pain, diarrhea, constipation, nausea or vomiting. MUSCULOSKELETAL: Denies myalgias. NEUROLOGIC: Denies numbness, tingling or weakness. ENDOCRINE: Denies fatigue, weight change, polydipsia or polyurina. GENITOURINARY: Denies burning, hematuria or urgency with micturation. HEMATOLOGIC: Denies history of anemia or bleeding. Physical examination: Gen: This is a 78-year-old female. No acute distress. VS: reviewed HEENT: Head is atraumatic, normocephalic. Pupils equal, round. Sclerae is an icteric. NECK: Supple. No JVD. LUNGS: Clear to auscultation. No wheezes or rhonchi. No intercostal retractions. HEART: Regular rate and rhythm. Systolic murmur. ABDOMEN: Soft No tenderness. EXTREMITIES: No pedal edema. No calf tenderness. NEUROLOGICAL: Patient is awake, alert and oriented x3. Assessment: Covid 19 Chronic systolic heart failure Paroxysmal atrial fibrillation Cardiomyopathy Diabetes Plan: Resume patient's home cardiac medications Obtain chest x-ray and BNP Obtain 2-D echocardiogram and Doppler study to assess cardiac structure and function, limited Further recommendations to follow based upon clinical course Thank you kindly for this consultation. Nurse practitioner note has been reviewed, I agree with documented findings and plan of care. Patient was seen and examined. Past Medical History Past Medical History: Heart Failure, Diabetes Mellitus, Hyperlipidemia, Hypertension, Pneumonia, Rheumatoid Arthritis (RA) Additional Past Medical History / Comment(s): tremors, renal lithiasis, hemorrhoids(sx done), "has had problems w/low magnesium.anemia. per posue pt had past cancer "uterine or cervical-had hysterectomy". it was previously charted that pt had hx of ra and cfh spouse not able to verify this, History of Any Multi-Drug Resistant Organisms: ESBL Date of last positivie culture/infection: 05/11/18 MDRO Source:: ESBL URINE Past Surgical History: Appendectomy, Hysterectomy, Orthopedic Surgery, Tonsillectomy Additional Past Surgical History / Comment(s): rt total knee repalcement, cataracts, hemmorroidectomy, colonoscopy Past Anesthesia/Blood Transfusion Reactions: No Reported Reaction Additional Past Anesthesia/Blood Transfusion Reaction / Comment(s): per psouse- pt never receieved any blood Past Psychological History: No Psychological Hx Reported Smoking Status: Never smoker Past Alcohol Use History: None Reported Past Drug Use History: None Reported - Past Family History Mother Family Medical History: Diabetes Mellitus Father Additional Family Medical History / Comment(s): brain anuerysm Medications and Allergies Home Medications Medication Instructions Recorded Confirmed Type Simvastatin [Zocor] 20 mg PO HS 07/18/14 09/14/23 History Ferrous Sulfate [Iron (65 MG 325 mg PO W/SUPPER 11/10/21 09/14/23 History Elemental)] Bethanechol Chloride [Urecholine] 5 mg PO DAILY 07/23/22 09/14/23 History Potassium Chloride [Klor-Con M20] 20 meq PO DAILY 07/23/22 09/14/23 History Primidone 75 mg PO BID 07/23/22 09/14/23 History allopurinoL [Zyloprim] 300 mg PO DAILY 07/23/22 09/14/23 History busPIRone HCl [Buspar] 5 mg PO DAILY 07/23/22 09/14/23 History Apixaban [Eliquis] 5 mg PO BID tab 08/04/22 09/14/23 Rx Metoprolol Succinate (ER) [Toprol 25 mg PO BID tab 08/04/22 09/14/23 Rx XL] Carbidopa-Levodopa 25-100 mg 1 tab PO TID 09/14/23 09/14/23 History [Sinemet 25-100] Escitalopram Oxalate [Lexapro] 10 mg PO DAILY 09/14/23 09/14/23 History Estrogens, Conjugated Cream 1 applicator VAGINAL DAILY PRN 09/14/23 09/14/23 History [Premarin Vaginal Cream] Furosemide [Lasix] 20 mg PO DAILY 09/14/23 09/14/23 History Insulin Glargine,Hum.rec.anlog 20 units SQ HS 09/14/23 09/14/23 History [Lantus Solostar Pen] Insulin Glargine,Hum.rec.anlog 40 units SQ DAILY 09/14/23 09/14/23 History [Lantus Solostar Pen] Insulin Lispro [humaLOG Kwikpen] 16 units SQ TID 09/14/23 09/14/23 History Levofloxacin [Levaquin] 500 mg PO DAILY 09/14/23 09/14/23 History Levothyroxine Sodium [Synthroid] 25 mcg PO DAILY 09/14/23 09/14/23 History Losartan [Cozaar] 50 mg PO DAILY 09/14/23 09/14/23 History Oxybutynin Xl [Ditropan XL] 5 mg PO TID 09/14/23 09/14/23 History Allergies Allergy/AdvReac Type Severity Reaction Status Date / Time gabapentin AdvReac Hallucinati Verified 06/11/23 01:20 ons Physical Exam Vitals: Vital Signs Temp Pulse Pulse Resp BP BP Pulse Ox 09/14/23 08:48 97.3 F L 77 20 183/72 94 L 09/14/23 06:15 89 20 155/79 93 L 09/14/23 03:00 78 20 147/87 95 09/14/23 00:00 87 18 149/87 96 09/13/23 22:40 24 09/13/23 18:40 98.8 F 43 L 20 132/75 90 L Intake and Output 09/13/23 09/14/23 09/14/23 22:59 06:59 14:59 Other: Weight 99.79 kg Results 09/13/23 20:09 09/14/23 10:31 Cardiac Enzymes 09/13/23 Range/Units 20:09 AST 22 (14-36) U/L CBC 09/13/23 Range/Units 20:09 WBC 10.5 (3.8-10.6) k/uL RBC 4.70 (3.80-5.40) m/uL Hgb 14.7 (11.4-16.0) gm/dL Hct 45.3 (34.0-46.0) % Plt Count 261 (150-450) k/uL Comprehensive Metabolic Panel 09/13/23 09/14/23 Range/Units 20:09 10:31 Sodium 142 140 (137-145) mmol/L Potassium 4.1 3.8 (3.5-5.1) mmol/L Chloride 94 L 98 (98-107) mmol/L Carbon Dioxide 37 H 35 H (22-30) mmol/L BUN 51 H 50 H (7-17) mg/dL Creatinine 1.96 H 2.08 H (0.52-1.04) mg/dL Glucose 70 L 195 H (74-99) mg/dL Calcium 9.9 9.1 (8.4-10.2) mg/dL AST 22 (14-36) U/L ALT 9 (4-34) U/L Alkaline Phosphatase 60 (38-126) U/L Total Protein 6.8 (6.3-8.2) g/dL Albumin 3.6 (3.5-5.0) g/dL Current Medications Generic Name Dose Route Start Last Admin Trade Name Freq PRN Reason Stop Dose Admin Acetaminophen 650 mg 09/14/23 01:03 Acetaminophen Tab 325 Mg Tab PO Q6HR PRN Mild Pain or Fever > 100.5 Acetaminophen 650 mg 09/14/23 01:08 Acetaminophen Tab 325 Mg Tab PO Q6HR PRN Fever and/ or Pain Allopurinol 300 mg 09/15/23 09:00 Allopurinol 300 Mg Tab PO DAILY [facility] Amiodarone HCl 200 mg 09/14/23 09:00 Amiodarone 200 Mg Tab PO BID [facility] Apixaban 5 mg 09/14/23 09:00 09/14/23 10:28 Apixaban 5 Mg Tab PO 5 mg BID [facility] Administration Protocol Aspirin 81 mg 09/14/23 09:00 09/14/23 10:28 Aspirin 81 Mg PO 81 mg DAILY [facility] Administration Atorvastatin Calcium 10 mg 09/14/23 21:00 Atorvastatin 10 Mg Tab PO HS [facility] Bethanechol Chloride 5 mg 09/14/23 09:00 09/14/23 10:28 Bethanechol 10 Mg Tab PO 5 mg DAILY [facility] Administration Bumetanide 2 mg 09/14/23 09:00 Bumetanide 1 Mg Tab PO BID@0900,1600 [facility] Buspirone HCl 5 mg 09/15/23 09:00 Buspirone Hcl 5 Mg Tab PO DAILY [facility] Carbidopa/Levodopa 1 each 09/14/23 11:15 Carbidopa-Levodopa 25-100 Mg 1 Each Tab PO TID [facility] Docusate Sodium 100 mg 09/14/23 09:00 09/14/23 10:28 Docusate 100 Mg Cap PO 100 mg BID [facility] Administration Escitalopram Oxalate 10 mg 09/15/23 09:00 Escitalopram 10 Mg Tab PO DAILY [facility] Ferrous Sulfate 325 mg 09/15/23 09:00 Ferrous Sulfate 325 Mg Tab PO Q2D [facility] Glipizide 10 mg 09/14/23 07:30 09/14/23 10:10 Glipizide 10 Mg Tab PO Not Given [id number] [facility] Sodium Chloride 1,000 mls @ 60 mls/hr 09/14/23 01:15 09/14/23 02:22 Saline 0.9% IV 20 mls/hr .[id number] [facility] Administration Insulin Aspart 16 unit 09/14/23 16:00 Insulin Aspart (Novolog) 100 Unit/Ml Vial SQ TID [facility] Insulin Detemir 40 unit 09/15/23 07:00 Insulin Detemir (Levemir) 100 Unit/Ml Syr SQ DAILY@0700 [facility] Insulin Detemir 20 unit 09/14/23 21:00 Insulin Detemir (Levemir) 100 Unit/Ml Syr SQ HS [facility] Levothyroxine Sodium 25 mcg 09/15/23 06:30 Levothyroxine 25 Mcg Tab PO DAILY@0630 [facility] Losartan Potassium 12.5 mg 09/14/23 09:00 09/14/23 10:28 Losartan 25 Mg Tab PO 12.5 mg DAILY [facility] Administration Metoprolol Succinate 25 mg 09/14/23 09:00 09/14/23 10:28 Metoprolol Succinate (Er) 25 Mg Tab.Er.24h PO 25 mg BID [facility] Administration Naloxone HCl 0.2 mg 09/14/23 01:03 Naloxone 0.4 Mg/Ml 1 Ml Vial IV Q2M PRN Opioid Reversal Oxybutynin Chloride 5 mg 09/14/23 16:00 Oxybutynin Xl 5 Mg Tab.Er.24 PO TID [facility] Polyethylene Glycol 17 gm 09/14/23 01:06 Polyethylene Glycol 3350 17 Gm Powd.Pack PO DAILY PRN Constipation Potassium Chloride 20 meq 09/14/23 09:00 09/14/23 10:27 Potassium Chloride Er 20 Meq Tab.Er PO 20 meq DAILY [facility] Administration Primidone 50 mg 09/14/23 21:00 Primidone 50 Mg Tab PO HS [facility] Primidone 25 mg 09/14/23 09:00 09/14/23 10:29 Primidone 25 Mg Tab PO 25 mg QAM [facility] Administration Tamsulosin HCl 0.4 mg 09/14/23 08:30 09/14/23 10:28 Tamsulosin 0.4 Mg Cap.Er.24h PO 0.4 mg PC-BRKFST [facility] Administration Intake and Output 09/13/23 09/14/23 09/14/23 22:59 06:59 14:59 Other: Weight 99.79 kg 09/13/23 20:09 09/14/23 10:31
[2023-09-14] MEDS: CARBIDOPA-LEVODOPA 25-100 MG 1 EACH TAB PO SCH (14:25)
[2023-09-14] MEDS: AMIODARONE 200 MG TAB PO SCH (14:25)
[2023-09-14] MEDS: amLODIPine 10 MG TAB PO SCH (14:25)
[2023-09-14] MEDS: OXYBUTYNIN XL 5 MG TAB.ER.24 PO SCH (17:14)
[2023-09-14 17:30] LABS: Amorphous Sediment,Urine Rare /hpf; Appearance,Urine Cloudy (Clear); Bacteria,Urine Few /hpf; Bilirubin,Urine Negative (Negative); Blood,Urine Negative (Negative); Calcium Oxalate Crystals,Urine Rare /hpf; Color,Urine Light Yellow; Glucose,Urine (UA) Negative (Negative); Ketones,Urine Negative (Negative); Leukocyte Esterase,Urine Large (Negative); Mucus,Urine Rare /hpf; Nitrite,Urine Negative (Negative); Protein,Urine Trace (Negative); RBC,Urine 3 /hpf (0-5); Specific Gravity,Urine 1.019 (1.001-1.035); Squamous Epithelial Cell,Urine 12 /hpf (0-4); Urobilinogen,Urine <2.0 mg/dL (<2.0); WBC,Urine 20 /hpf (0-5)
[2023-09-14 18:10] LABS: Glucose,Whole Blood 160 mg/dL (70-110)
[2023-09-14 20:36] LABS: Glucose,Whole Blood 128 mg/dL (70-110)
[2023-09-14] MEDS ORDERED: INSULIN DETEMIR (LEVEMIR) 100 UNIT/ML SYR SQ SCH (21:00)
[2023-09-14] MEDS: ATORVASTATIN 10 MG TAB PO SCH (21:15)
[2023-09-14] MEDS: INSULIN DETEMIR (LEVEMIR) 100 UNIT/ML SYR SQ SCH (21:16)
[2023-09-14] MEDS: PRIMIDONE 50 MG TAB PO SCH (21:43)
--- NOTE | 2023-09-14 22:58 | P.CONS ---
History of Present Illness - Reason for Consult Consult date: 09/14/23 COVID, remdesivir Requesting physician: Maeve Lopez - Chief Complaint Cough and congestion x few days - History of Present Illness Patient is a 78-year-old female with a past medical history significant for diabetes mellitus hypertension hyperlipidemia heart failure patient was brought to the hospital complaining of worsening cough and congestion patient mention her got sick about 2 weeks ago was subsequently improved however the patient started getting sick more than a week ago symptom has been mostly cough and congestion cough has been mild to moderate intensity with occasional clear sputum no hemoptysis denies any chronic chest pain denies any nausea or vomiting no abdominal pain or diarrhea did have decreased appetite and decreased oral intake patient on presentation to the hospital was afebrile and no fever has been recorded subsequently patient did have mild hypoxemia with O2 sats of 90% on room air currently 94% on 2 L nasal cannula oxygen patient did have a normal white count BUN/creatinine has been elevated lactic acid was elevated liver enzymes are normal urine was positive tested positive for COVID-19 and a procalcitonin 0.10 patient did have a chest x-ray no acute cardiopulmonary disease process infectious disease was consulted for further management and need for remdesivir Review of Systems Positive point and negatives has been mentioned in the HPI, complete review of systems was performed and all other systems are negative Past Medical History Past Medical History: Heart Failure, Diabetes Mellitus, Hyperlipidemia, Hypertension, Pneumonia, Rheumatoid Arthritis (RA) Additional Past Medical History / Comment(s): tremors, renal lithiasis, hemorrhoids(sx done), "has had problems w/low magnesium.anemia. per posue pt had past cancer "uterine or cervical-had hysterectomy". it was previously charted that pt had hx of ra and cfh spouse not able to verify this, History of Any Multi-Drug Resistant Organisms: ESBL Year Discovered:: 05/11/18 MDRO Source:: ESBL URINE Past Surgical History: Appendectomy, Hysterectomy, Orthopedic Surgery, Tonsillectomy Additional Past Surgical History / Comment(s): rt total knee repalcement, cataracts, hemmorroidectomy, colonoscopy Past Anesthesia/Blood Transfusion Reactions: No Reported Reaction Additional Past Anesthesia/Blood Transfusion Reaction / Comm: per psouse-pt never receieved any blood Past Psychological History: No Psychological Hx Reported Smoking Status: Never smoker Past Alcohol Use History: None Reported Past Drug Use History: None Reported - Past Family History Mother Family Medical History: Diabetes Mellitus Father Additional Family Medical History / Comment(s): brain anuerysm Medications and Allergies Home Medications Medication Instructions Recorded Confirmed Type Simvastatin [Zocor] 20 mg PO HS 07/18/14 09/24/23 History Ferrous Sulfate [Iron (65 MG 325 mg PO W/SUPPER 11/10/21 09/24/23 History Elemental)] Bethanechol Chloride [Urecholine] 5 mg PO DAILY 07/23/22 09/24/23 History Potassium Chloride [Klor-Con M20] 20 meq PO DAILY 07/23/22 09/24/23 History Primidone 75 mg PO BID 07/23/22 09/24/23 History allopurinoL [Zyloprim] 300 mg PO DAILY 07/23/22 09/24/23 History busPIRone HCl [Buspar] 5 mg PO DAILY 07/23/22 09/24/23 History Apixaban [Eliquis] 5 mg PO BID tab 08/04/22 09/24/23 Rx Metoprolol Succinate (ER) [Toprol 25 mg PO BID tab 08/04/22 09/24/23 Rx XL] Carbidopa-Levodopa 25-100 mg 1 tab PO TID 09/14/23 09/24/23 History [Sinemet 25-100 mg] Escitalopram Oxalate [Lexapro] 10 mg PO DAILY 09/14/23 09/24/23 History Estrogens, Conjugated Cream 1 applicator VAGINAL DAILY PRN 09/14/23 09/24/23 His tory [Premarin Vaginal Cream] Insulin Glargine,Hum.rec.anlog 20 units SQ HS 09/14/23 09/24/23 History [Lantus Solostar Pen] Insulin Glargine,Hum.rec.anlog 40 units SQ DAILY 09/14/23 09/24/23 History [Lantus Solostar Pen] Insulin Lispro [humaLOG Kwikpen] 16 units SQ TID 09/14/23 09/24/23 History Levothyroxine Sodium [Synthroid] 25 mcg PO DAILY 09/14/23 09/24/23 History Oxybutynin Xl [Ditropan XL] 5 mg PO TID 09/14/23 09/24/23 History Albuterol Inhaler [Ventolin Hfa 2 puff INHALATION Q6H PRN 30 Days 09/22/23 09/24/23 Rx Inhaler] #1 each Amiodarone [Cordarone] 200 mg PO BID 30 Days #60 tab 09/22/23 09/24/23 Rx Aspirin 81 mg PO DAILY 30 Days #30 tab 09/22/23 09/24/23 Rx Bumetanide [BUMEX] 1 mg PO DAILY 30 Days #30 tab 09/22/23 09/24/23 Rx Losartan [Cozaar] 12.5 mg PO DAILY 30 Days #15 tab 09/22/23 09/24/23 Rx Tamsulosin [Flomax] 0.4 mg PO PC-BRKFST 30 Days #30 cap 09/22/23 09/24/23 Rx amLODIPine [Norvasc] 10 mg PO DAILY 30 Days #30 tab 09/22/23 09/24/23 Rx guaiFENesin [Mucinex] 600 mg PO Q12HR 5 Days #10 tab 09/22/23 09/24/23 Rx Allergies Allergy/AdvReac Type Severity Reaction Status Date / Time gabapentin AdvReac Hallucinati Verified 09/24/23 14:25 ons Physical Exam Vitals: Vital Signs Temp Pulse Pulse Resp BP BP Pulse Ox 09/14/23 12:02 94 L 09/14/23 08:48 97.3 F L 77 20 183/72 94 L 09/14/23 06:15 89 20 155/79 93 L 09/14/23 03:00 78 20 147/87 95 09/14/23 00:00 87 18 149/87 96 09/13/23 22:40 24 09/13/23 18:40 98.8 F 43 L 20 132/75 90 L Intake and Output 09/13/23 09/14/23 09/14/23 22:59 06:59 14:59 Other: Weight 99.79 kg GENERAL DESCRIPTION: Elderly female lying in bed, no distress. No tachypnea or accessory muscle of respiration use. HEENT: Shows Pallor , no scleral icterus. Oral mucous membrane is dry. No pharyngeal erythema or thrush NECK: Trachea central, no thyromegaly. LUNGS: Unlabored breathing. Coarse breath sounds bilaterally HEART: S1, S2, regular rate and rhythm. No loud murmur ABDOMEN: Soft, no tenderness , guarding or rigidity, no organomegaly EXTREMITIES: No edema of feet. SKIN: No rash, no masses palpable. NEUROLOGICAL: The patient is awake, alert, oriented x3, mood and affect normal. Results CBC & Chem 7: 09/22/23 05:38 09/22/23 05:38 Labs: Abnormal Lab Results - Last 24 Hours (Table) 09/13/23 09/13/23 09/13/23 Range/Units 18:45 20:00 20:09 Neutrophils # 8.2 H (1.3-7.7) k/uL Chloride (98-107) mmol/L Carbon Dioxide (22-30) mmol/L BUN (7-17) mg/dL Creatinine (0.52-1.04) mg/dL Glucose (74-99) mg/dL POC Glucose (mg/dL) 65 L (70-110) mg/dL Plasma Lactic Acid Woo (0.7-2.0) mmol/L SARS-CoV-2 (PCR) Detected A (Not Detectd) 09/13/23 09/13/23 09/13/23 Range/Units 20:09 20:09 23:59 Neutrophils # (1.3-7.7) k/uL Chloride 94 L (98-107) mmol/L Carbon Dioxide 37 H (22-30) mmol/L BUN 51 H (7-17) mg/dL Creatinine 1.96 H (0.52-1.04) mg/dL Glucose 70 L (74-99) mg/dL POC Glucose (mg/dL) 119 H (70-110) mg/dL Plasma Lactic Acid Woo 2.2 H* (0.7-2.0) mmol/L SARS-CoV-2 (PCR) (Not Detectd) 09/14/23 09/14/23 Range/Units 10:31 10:39 Neutrophils # (1.3-7.7) k/uL Chloride (98-107) mmol/L Carbon Dioxide 35 H (22-30) mmol/L BUN 50 H (7-17) mg/dL Creatinine 2.08 H (0.52-1.04) mg/dL Glucose 195 H (74-99) mg/dL POC Glucose (mg/dL) 189 H (70-110) mg/dL Plasma Lactic Acid Woo (0.7-2.0) mmol/L SARS-CoV-2 (PCR) (Not Detectd) Assessment and Plan (1) COVID-19 virus infection Status: Acute Code(s): U07.1 - COVID-19 SNOMED Code(s): 571953199 (2) Pneumonia Status: Acute Code(s): J18.9 - PNEUMONIA, UNSPECIFIED ORGANISM SNOMED Code(s): 592169206 Plan: 1patient presented to hospital with weakness congested cough and this patient symptom has been going on for more than a week patient did have a no acute infiltrate on the chest x-ray and also have elevated creatinine on these factors will disqualify her for remdesivir therapy 2-patient did have a mildly positive UA may be contributing to some of her symptoms concerning for possible UTI from enteric gram-negative pathogen 3-Patient to continue with the Eliquis we will add zinc and ascorbic acid and may benefit from dexamethasone and the patient needs to be hypoxic and need for supplemental oxygen. 4-We will add Rocephin 1 g daily for possible UTI while waiting for the culture to finalize We will follow on clinical condition and cultures to further adjust medication if needed Thank you for this consultation we will follow the patient along with you Dictation was produced using [employer] dictation software. please excuse any grammatical, word or spelling errors. Time with Patient: Greater than 30
[2023-09-15 06:25] LABS: Glucose,Whole Blood 63 mg/dL (70-110)
[2023-09-15] MEDS: LEVOTHYROXINE 25 MCG TAB PO SCH (06:27)
[2023-09-15 07:14] LABS: Glucose,Whole Blood 94 mg/dL (70-110)
[2023-09-15 09:11] LABS: HCT 40.1 % (37.2-46.3); HGB 12.4 g/dL (12.0-15.0); MCH 30.2 pg (27.0-32.0); MCHC 30.9 g/dL (32.0-37.0); MCV 97.8 FL (80.0-97.0); Mean Platelet Volume 9.4 FL (9.5-12.2); NRBC Per 100 WBC 0 X 10*3/uL (0.00-0.01); Platelet Count 220 X 10*3/uL (140-440); RDW 13.8 % (11.5-14.5); WBC 10.31 X 10*3/uL (4.50-10.00)
[2023-09-15 09:12] LABS: Basophils # (A) 0.02 X 10*3/uL (0.00-0.10); Basophils % (A) 0.2 %; Eosinophils # (A) 0.09 X 10*3/uL (0.04-0.35); Eosinophils % (A) 0.9 %; Lymphocytes # (A) 2.17 X 10*3/uL (0.90-5.00); Monocytes # (A) 0.82 X 10*3/uL (0.20-1.00); Neutrophils # (A) 7.17 X 10*3/uL (1.80-7.70); Neutrophils % (A) 69.5 %
[2023-09-15] MEDS: INSULIN DETEMIR (LEVEMIR) 100 UNIT/ML SYR SQ SCH (09:31)
[2023-09-15] MEDS: ASCORBIC ACID 500 MG TAB PO SCH (09:31)
[2023-09-15] MEDS: ESCITALOPRAM 10 MG TAB PO SCH (09:32)
[2023-09-15] MEDS: FERROUS SULFATE 325 MG TAB PO SCH (09:32)
[2023-09-15] MEDS: ZINC SULFATE 220 MG CAP PO SCH (09:32)
[2023-09-15] MEDS: busPIRone HCl 5 MG TAB PO SCH (09:33)
[2023-09-15] MEDS: allopurinoL 300 MG TAB PO SCH (09:33)
--- NOTE | 2023-09-15 10:54 | P.PN ---
Subjective Progress Note Date: 09/15/23 Consult reason: congestive heart failure History of present illness: History of present illness: This is a 78 year old female patient of scab with past medical history of paroxysmal atrial fibrillation, cardiomyopathy, hypertension, dyslipidemia, overweight, known EF of 35% up from 25%. We have been asked to evaluate the patient for heart failure. Patient came into the hospital due to cough and congestion and failure of antibiotics to improve her symptoms. Patient has been afebrile, heart rate in the 70s and 80s, blood pressure 183/72, pulse ox 94% on 2 L nasal cannula. EKG sinus rhythm at 72 bpm Chest x-ray: No acute process D-dimer 0.34. C-reactive protein 1.4. ProBNP 311. BUN 50 creatinine 2.08. CBC unremarkable. Sodium 140, potassium 3.8. Influenza A, influenza B, RSV not detected. Covid 19 detected Home cardiac medications: Eliquis 5 mg twice daily, Lasix 20 mg daily, losartan 50 mg daily, Toprol-XL 25 mg twice daily, potassium 20 mg once daily, simvastatin 20 g at bedtime. Echocardiogram performed in the office 11/2022 revealed EF of 35%, mild AR. 09/15 Patient is seen today on the observation unit. She remains in isolation for Covid 19. Heart rate is in the 60s, blood pressure 132/63, pulse ox 90% on 2 L nasal cannula. Repeat renal function ordered for today. BMP 311. Echocardiogram pending Physical examination: Gen: This is a 78-year-old female. No acute distress. VS: reviewed HEENT: Head is atraumatic, normocephalic. Pupils equal, round. Sclerae is anicteric. NECK: Supple. No JVD. LUNGS: Clear to auscultation. No wheezes or rhonchi. No intercostal retractions. HEART: Regular rate and rhythm. Systolic murmur. ABDOMEN: Soft No tenderness. EXTREMITIES: No pedal edema. No calf tenderness. NEUROLOGICAL: Patient is awake, alert and oriented x3. Assessment: Covid 19 Chronic systolic heart failure, no acute HF Paroxysmal atrial fibrillation Cardiomyopathy Diabetes CKD Plan: Resume patient's home cardiac medications Decrease frequency of Bumex to daily due to abnormal creatinine Obtain 2-D echocardiogram and Doppler study to assess cardiac structure and function, limited Further recommendations to follow based upon clinical course Nurse practitioner note has been reviewed, I agree with documented findings and plan of care. Patient was seen and examined. Objective - Vital Signs Vital signs: Vital Signs Temp 97.4 F L 09/15/23 07:00 Pulse 62 09/15/23 07:00 Resp 20 09/15/23 07:00 BP 132/63 09/15/23 07:00 Pulse Ox 98 09/15/23 07:00 FiO2 Intake & Output 09/14/23 09/15/23 09/15/23 18:59 06:59 18:59 Output Total 150 500 Balance -150 -500 Output: Urine 150 500 Other: Voiding Method Bedside Commode Bedside Commode External Catheter External Catheter # Voids 1 - Labs CBC & Chem 7: 09/15/23 05:14 09/15/23 11:06 Labs: Abnormal Lab Results - Last 24 Hours (Table) 09/14/23 09/14/23 09/14/23 Range/Units 10:31 10:39 12:16 WBC (4.50-10.00) X 10*3/uL MCV (80.0-97.0) FL MCHC (32.0-37.0) g/dL MPV (9.5-12.2) FL Carbon Dioxide 35 H (22-30) mmol/L BUN 50 H (7-17) mg/dL Creatinine 2.08 H (0.52-1.04) mg/dL Glucose 195 H (74-99) mg/dL POC Glucose (mg/dL) 189 H (70-110) mg/dL C-Reactive Protein 1.4 H (<1.0) mg/dL Procalcitonin (0.02-0.09) ng/mL Urine Appearance (Clear) Urine Protein (Negative) Ur Leukocyte Esterase (Negative) Urine WBC (0-5) /hpf Ur Squamous Epith Cells (0-4) /hpf Calcium Oxalate Crystal (None) /hpf Amorphous Sediment (None) /hpf Urine Bacteria (None) /hpf Urine Mucus (None) /hpf 09/14/23 09/14/23 09/14/23 Range/Units 12:16 16:30 18:07 WBC (4.50-10.00) X 10*3/uL MCV (80.0-97.0) FL MCHC (32.0-37.0) g/dL MPV (9.5-12.2) FL Carbon Dioxide (22-30) mmol/L BUN (7-17) mg/dL Creatinine (0.52-1.04) mg/dL Glucose (74-99) mg/dL POC Glucose (mg/dL) 160 H (70-110) mg/dL C-Reactive Protein (<1.0) mg/dL Procalcitonin 0.10 H (0.02-0.09) ng/mL Urine Appearance Cloudy H (Clear) Urine Protein Trace H (Negative) Ur Leukocyte Esterase Large H (Negative) Urine WBC 20 H (0-5) /hpf Ur Squamous Epith Cells 12 H (0-4) /hpf Calcium Oxalate Crystal Rare H (None) /hpf Amorphous Sediment Rare H (None) /hpf Urine Bacteria Few H (None) /hpf Urine Mucus Rare H (None) /hpf 09/14/23 09/15/23 09/15/23 Range/Units 20:34 05:14 06:24 WBC 10.31 H (4.50-10.00) X 10*3/uL MCV 97.8 H (80.0-97.0) FL MCHC 30.9 L (32.0-37.0) g/dL MPV 9.4 L (9.5-12.2) FL Carbon Dioxide (22-30) mmol/L BUN (7-17) mg/dL Creatinine (0.52-1.04) mg/dL Glucose (74-99) mg/dL POC Glucose (mg/dL) 128 H 63 L (70-110) mg/dL C-Reactive Protein (<1.0) mg/dL Procalcitonin (0.02-0.09) ng/mL Urine Appearance (Clear) Urine Protein (Negative) Ur Leukocyte Esterase (Negative) Urine WBC (0-5) /hpf Ur Squamous Epith Cells (0-4) /hpf Calcium Oxalate Crystal (None) /hpf Amorphous Sediment (None) /hpf Urine Bacteria (None) /hpf Urine Mucus (None) /hpf
[2023-09-15 11:43] LABS: African American GFR (CKD) 29 (>60 ml/min/1.73 sqM); Anion Gap 11 mmol/L; Blood Urea Nitrogen 48 mg/dL (7-17); Calcium 8.4 mg/dL (8.4-10.2); Carbon Dioxide 27 mmol/L (22-30); Chloride 103 mmol/L (98-107); Glucose 151 mg/dL (74-99); Non-African American GFR(CKD) 25 (>60 ml/min/1.73 sqM); Potassium 4.3 mmol/L (3.5-5.1); Sodium 141 mmol/L (137-145)
[2023-09-15 12:46] LABS: Glucose,Whole Blood 114 mg/dL (70-110)
--- NOTE | 2023-09-15 16:27 | P.PN ---
Subjective Progress Note Date: 09/15/23 Principal diagnosis: Reason for follow-up is COVID-19 and pneumonia Patient is a 78-year-old female with a past medical history significant for diabetes mellitus hypertension hyperlipidemia heart failure patient was brought to the hospital complaining of worsening cough and congestion, patient did tested positive for COVID-19 chest x-ray no acute cardiopulmonary disease process. On today's evaluation there is 09/15/2023 patient remains to be afebrile patient is breathing comfortably on 2 L nasal cannula oxygen currently satting 97% patient denies any chest pain she did have a cough with occasional sputum production no nausea vomiting no abdominal pain no diarrhea. Patient did have a white count of 10.31 creatinine is 1.93 procalcitonin 0.10 Objective - Vital Signs Vital signs: Vital Signs Temp 97.4 F L 09/15/23 14:33 Pulse 69 09/15/23 14:33 Resp 16 09/15/23 14:33 BP 126/85 09/15/23 14:33 Pulse Ox 97 09/15/23 14:33 FiO2 Intake & Output 09/14/23 09/15/23 09/15/23 18:59 06:59 18:59 Intake Total 236 Output Total 150 500 Balance -150 -500 236 Intake: Oral 236 Output: Urine 150 500 Other: Voiding Method Bedside Commode Bedside Commode Bedside Commode External Catheter External Catheter External Catheter # Voids 1 - Exam GENERAL DESCRIPTION: An elderly female lying in bed in no distress RESPIRATORY SYSTEM: Unlabored breathing , decreased breath sounds at bases HEART: S1 S2 regular rate and rhythm , ABDOMEN: Soft , no tenderness EXTREMITIES: No edema feet - Labs CBC & Chem 7: 09/15/23 05:14 09/15/23 11:06 Labs: Abnormal Lab Results - Last 24 Hours (Table) 09/14/23 09/14/23 09/14/23 Range/Units 16:30 18:07 20:34 WBC (4.50-10.00) X 10*3/uL MCV (80.0-97.0) FL MCHC (32.0-37.0) g/dL MPV (9.5-12.2) FL BUN (7-17) mg/dL Creatinine (0.52-1.04) mg/dL Glucose (74-99) mg/dL POC Glucose (mg/dL) 160 H 128 H (70-110) mg/dL Urine Appearance Cloudy H (Clear) Urine Protein Trace H (Negative) Ur Leukocyte Esterase Large H (Negative) Urine WBC 20 H (0-5) /hpf Ur Squamous Epith Cells 12 H (0-4) /hpf Calcium Oxalate Crystal Rare H (None) /hpf Amorphous Sediment Rare H (None) /hpf Urine Bacteria Few H (None) /hpf Urine Mucus Rare H (None) /hpf 09/15/23 09/15/23 09/15/23 Range/Units 05:14 06:24 11:06 WBC 10.31 H (4.50-10.00) X 10*3/uL MCV 97.8 H (80.0-97.0) FL MCHC 30.9 L (32.0-37.0) g/dL MPV 9.4 L (9.5-12.2) FL BUN 48 H (7-17) mg/dL Creatinine 1.93 H (0.52-1.04) mg/dL Glucose 151 H (74-99) mg/dL POC Glucose (mg/dL) 63 L (70-110) mg/dL Urine Appearance (Clear) Urine Protein (Negative) Ur Leukocyte Esterase (Negative) Urine WBC (0-5) /hpf Ur Squamous Epith Cells (0-4) /hpf Calcium Oxalate Crystal (None) /hpf Amorphous Sediment (None) /hpf Urine Bacteria (None) /hpf Urine Mucus (None) /hpf 09/15/23 Range/Units 12:36 WBC (4.50-10.00) X 10*3/uL MCV (80.0-97.0) FL MCHC (32.0-37.0) g/dL MPV (9.5-12.2) FL BUN (7-17) mg/dL Creatinine (0.52-1.04) mg/dL Glucose (74-99) mg/dL POC Glucose (mg/dL) 114 H (70-110) mg/dL Urine Appearance (Clear) Urine Protein (Negative) Ur Leukocyte Esterase (Negative) Urine WBC (0-5) /hpf Ur Squamous Epith Cells (0-4) /hpf Calcium Oxalate Crystal (None) /hpf Amorphous Sediment (None) /hpf Urine Bacteria (None) /hpf Urine Mucus (None) /hpf Assessment and Plan (1) COVID-19 Current Visit: Yes Status: Acute Code(s): U07.1 - COVID-19 SNOMED Code(s): 891264092 (2) Pneumonia Current Visit: Yes Status: Acute Code(s): J18.9 - PNEUMONIA, UNSPECIFIED ORGANISM SNOMED Code(s): 226215979 Plan: 1patient presented to hospital with weakness congested cough and this patient symptom has been going on for more than a week patient did have a no acute infiltrate on the chest x-ray and also have elevated creatinine on these factors will disqualify her for remdesivir therapy 2-patient did have a mildly positive UA may be contributing to some of her symptoms concerning for possible UTI from enteric gram-negative pathogen 3-Patient to continue with the Eliquis we will add zinc and ascorbic acid 4-We will obtain a sputum for Gram stain culture the patient mention bring up some yellow sputum and continue with Rocephin 1 g daily while waiting for the culture to finalize Dictation was produced using [employer] dictation software. please excuse any grammatical, word or spelling errors. Time with Patient: Less than 30
--- NOTE | 2023-09-15 17:15 | CA ---
Transthoracic Echo Report Name: Luisa Umaña Age: 78 Gender: F : 1945 Exam Date: 09/15/2023 12:19 Exam Location: [facility] Ht (in): 66 Wt (lb): 220 Ordering Physician: Jennyfer Tellez Attending/Referring Phys: [id number], Rosalinda Lead Technologist In Cytogenetics Charlee Cross RDCS Procedure CPT: Indications: LVF, +Covid Cardiac Hx: Technical Quality: Contrast 1: Total Dose (mL): Contrast 2: Total Dose (mL): MEASUREMENTS (Male / Female) Normal Values 2D ECHO LV Diastolic Diameter PLAX 4.6 cm 4.2 - 5.9 / 3.9 - 5.3 cm LV Systolic Diameter PLAX 3.4 cm IVS Diastolic Thickness 1.3 cm 0.6 - 1.0 / 0.6 - 0.9 cm LVPW Diastolic Thickness 1.3 cm 0.6 - 1.0 / 0.6 - 0.9 cm LV Relative Wall Thickness 0.6 RV Internal Dim ED PLAX 3.6 cm LA Systolic Diameter LX 3.8 cm 3.0 - 4.0 / 2.7 - 3.8 cm LV Diastolic Volume MOD 4C 134.2 cm??? LV Systolic Volume MOD 4C 83.8 cm??? LV Ejection Fraction MOD 4C 37.6 % LV Diastolic Length 4C 7.5 cm LV Systolic Length 4C 6.4 cm LV Diastolic Volume MOD 2C 115.0 cm??? LV Systolic Volume MOD 2C 54.7 cm??? LV Ejection Fraction MOD 2C 52.5 % LV Diastolic Length 2C 6.9 cm LV Systolic Length 2C 5.9 cm LA Volume 71.5 cm??? 18 - 58 / 22 - 52 cm??? LA Volume Index 32.5 cm???/m??? 16 - 28 cm???/m??? M-MODE Aortic Root Diameter MM 3.3 cm AV Cusp Separation MM 1.6 cm DOPPLER AV Peak Velocity 111.5 cm/s AV Peak Gradient 5.0 mmHg TR Peak Velocity 256.8 cm/s TR Peak Gradient 26.4 mmHg Right Ventricular Systolic Press 31.0 mmHg FINDINGS Left Ventricle Left ventricular ejection fraction is estimated at 45-50 %. Left ventricular cavity size normal. Mildly increased septal wall thickness. Mildly increased posterior wall thickness. Right Ventricle Mild right ventricular dilatation. Right Atrium Right atrium not well visualized. Left Atrium Mildly increased left atrial volume. Mildly increased left atrial area. Mitral Valve Mitral valve thickened. Mild mitral annular calcification. Aortic Valve Trileaflet aortic valve. Focal thickening of the aortic valve cusps. No aortic stenosis. No aortic regurgitation. Tricuspid Valve Structurally normal tricuspid valve. Mild tricuspid regurgitation. Pulmonic Valve Pulmonic valve not well visualized. Trace to mild pulmonic regurgitation. Pericardium No pericardial effusion. Aorta Normal size aortic root and proximal ascending aorta. CONCLUSIONS Mild LV systolic dysfunction Mild RV dilatation Previewed by: Dr. Johan Gunderson MD (Electronically Signed) Final Date: 15 September 2023 17:14
[2023-09-15 17:34] LABS: Glucose,Whole Blood 136 mg/dL (70-110)
[2023-09-15 20:32] LABS: Glucose,Whole Blood 247 mg/dL (70-110)
--- NOTE | 2023-09-15 20:58 | PN ---
PROGRESS NOTE DATE OF SERVICE: 09/15/2023 SUBJECTIVE: This is a 78-year-old woman, who was admitted with acute COVID-19 infection, severe dehydration, complains of weakness, also. Multiple consultants are following the patient closely. The patient was suspected to have a UTI with enteric gram-negative pathogen also by Infectious Disease, on empiric antibiotics. Cultures are pending at this time. PAST MEDICAL HISTORY: Reviewed. PHYSICAL EXAMINATION: VITAL SIGNS: Pulse is 62, blood pressure 130/60, respirations 20. CHEST: A few scattered rhonchi. ABDOMEN: Soft. NERVOUS SYSTEM: Nonfocal. LABORATORY DATA: Reviewed. ASSESSMENT: 1. Acute COVID-19 infection with severe dehydration present on admission. 2. Rule out acute urinary tract infection with gram-negative bacilli, on empiric antibiotics. 3. Acute renal failure secondary to acute tubular necrosis present on admission and prerenal failure. 4. Diabetes mellitus, type 2. 5. Hypertension. 6. Hyperlipidemia. 7. History of congestive heart failure. 8. Multiple medical issues. RECOMMENDATIONS AND DISCUSSION: Recommend to continue current management and continue symptomatic treatment. Otherwise, empiric antibiotics. Follow the cultures. PT, OT evaluation. Prognosis guarded because of multiple complex medical issues. Further recommendations to follow. See orders for further details. MMODL / IJN: [id number] /
[2023-09-16] MEDS ORDERED: IPRATROPIUM-ALBUTEROL 3 ML NEB INHALATION PRN (05:38)
[2023-09-16] MEDS: FLUTICASONE 50MCG/SPRAY NASAL 16GM EA NOSTRIL PRN (06:43)
[2023-09-16 06:44] LABS: Glucose,Whole Blood 72 mg/dL (70-110)
[2023-09-16 08:32] LABS: Basophils # (A) 0.01 X 10*3/uL (0.00-0.10); Basophils % (A) 0.1 %; Eosinophils # (A) 0.11 X 10*3/uL (0.04-0.35); HCT 37.6 % (37.2-46.3); HGB 11.8 g/dL (12.0-15.0); Lymphocytes # (A) 1.73 X 10*3/uL (0.90-5.00); Lymphocytes % (A) 16.2 %; MCH 30.8 pg (27.0-32.0); MCHC 31.4 g/dL (32.0-37.0); MCV 98.2 FL (80.0-97.0); Mean Platelet Volume 9.2 FL (9.5-12.2); Monocytes # (A) 0.82 X 10*3/uL (0.20-1.00); Monocytes % (A) 7.7 %; NRBC Per 100 WBC 0 X 10*3/uL (0.00-0.01); Neutrophils # (A) 7.98 X 10*3/uL (1.80-7.70); Neutrophils % (A) 74.5 %; Platelet Count 204 X 10*3/uL (140-440); RBC 3.83 X 10*6/uL (4.10-5.20)
[2023-09-16 08:56] LABS: ALT <5 U/L (8-44); AST 17 U/L (13-35); Alkaline Phosphatase 42 U/L (41-126); Blood Urea Nitrogen 40.4 mg/dL (9.0-27.0); Carbon Dioxide 30.9 mmol/L (21.6-31.8); Chloride 107 mmol/L (96-109); Globulin 2.3 g/dL (1.6-3.3); Glucose 49 mg/dL (70-110); Sodium 147 mmol/L (135-145); Total Bilirubin <0.2 mg/dL (0.3-1.2); Total Protein 5.3 g/dL (6.2-8.2)
[2023-09-16] MEDS: ALBUTEROL HFA INHALER INHALATION PRN (09:43)
[2023-09-16] MEDS: BUMETANIDE 1 MG TAB PO SCH (09:51)
[2023-09-16 10:01] LABS: Glucose,Whole Blood 147 mg/dL (70-110)
--- NOTE | 2023-09-16 10:16 | P.PN ---
Subjective Progress Note Date: 09/16/23 Consult reason: congestive heart failure History of present illness: History of present illness: This is a 78 year old female patient of Dr. Chaudhari with past medical history of paroxysmal atrial fibrillation, cardiomyopathy, hypertension, dyslipidemia, ove rweight, known EF of 35% up from 25%. We have been asked to evaluate the patient for heart failure. Patient came into the hospital due to cough and congestion and failure of antibiotics to improve her symptoms. Patient has been afebrile, heart rate in the 70s and 80s, blood pressure 183/72, pulse ox 94% on 2 L nasal cannula. EKG sinus rhythm at 72 bpm Chest x-ray: No acute process D-dimer 0.34. C-reactive protein 1.4. ProBNP 311. BUN 50 creatinine 2.08. CBC unremarkable. Sodium 140, potassium 3.8. Influenza A, influenza B, RSV not detected. Covid 19 detected Home cardiac medications: Eliquis 5 mg twice daily, Lasix 20 mg daily, losartan 50 mg daily, Toprol-XL 25 mg twice daily, potassium 20 mg once daily, simvastatin 20 g at bedtime. Echocardiogram performed in the office 11/2022 revealed EF of 35%, mild AR. 09/15 Patient is seen today on the observation unit. She remains in isolation for Covid 19. Heart rate is in the 60s, blood pressure 132/63, pulse ox 90% on 2 L nasal cannula. Repeat renal function ordered for today. BMP 311. Echocardiogram pending. 09/16 Echocardiogram reveals mild LV systolic dysfunction, EF 45-50%, mild RV dilatation. Heart rate is in the 60s and 70s, blood pressure 129/74, pulse ox 96% on 2 L nasal cannula. Labwork from yesterday revealed BUN 48 creatinine 1.93. Yesterday, Bumex was decreased frequency to once daily. Patient remains in isolation for Covid 19. No chest pain. Physical examination: Gen: This is a 78-year-old female. No acute distress. VS: reviewed HEENT: Head is atraumatic, normocephalic. Pupils equal, round. Sclerae is anicteric. LUNGS: Clear to auscultation. No wheezes or rhonchi. No intercostal retr actions. HEART: Regular rate and rhythm. Systolic murmur. EXTREMITIES: No pedal edema. No calf tenderness. NEUROLOGICAL: Patient is awake, alert and oriented x3. Assessment: Covid 19 Chronic systolic heart failure, no acute HF Paroxysmal atrial fibrillation Cardiomyopathy Diabetes CKD Plan: Resume patient's home cardiac medications continue Bumex at lower frequency due to abnormal creatinine Cardiology will sign off this case and follow on an as-needed basis. Please reconsult for any new concerns. Patient may follow-up in the office in one to 2 weeks. Nurse practitioner note has been reviewed, I agree with documented findings and plan of care. Patient was seen and examined. Objective - Vital Signs Vital signs: Vital Signs Temp 97.9 F 09/16/23 07:00 Pulse 62 09/16/23 07:00 Resp 16 09/16/23 07:00 BP 129/74 09/16/23 07:00 Pulse Ox 96 09/16/23 07:00 FiO2 Intake & Output 09/15/23 09/16/23 09/16/23 18:59 06:59 18:59 Intake Total 236 Output Total 550 Balance 236 -550 Intake: Oral 236 Output: Urine 550 Other: Voiding Method Bedside Commode Bedside Commode External Catheter External Catheter # Voids 1 - Labs CBC & Chem 7: 09/16/23 06:04 09/16/23 06:04 Labs: Abnormal Lab Results - Last 24 Hours (Table) 09/15/23 09/15/23 09/15/23 Range/Units 05:14 11:06 12:36 WBC 10.31 H (4.50-10.00) X 10*3/uL MCV 97.8 H (80.0-97.0) FL MCHC 30.9 L (32.0-37.0) g/dL MPV 9.4 L (9.5-12.2) FL BUN 48 H (7-17) mg/dL Creatinine 1.93 H (0.52-1.04) mg/dL Glucose 151 H (74-99) mg/dL POC Glucose (mg/dL) 114 H (70-110) mg/dL 09/15/23 09/15/23 Range/Units 17:23 20:31 WBC (4.50-10.00) X 10*3/uL MCV (80.0-97.0) FL MCHC (32.0-37.0) g/dL MPV (9.5-12.2) FL BUN (7-17) mg/dL Creatinine (0.52-1.04) mg/dL Glucose (74-99) mg/dL POC Glucose (mg/dL) 136 H 247 H (70-110) mg/dL
--- NOTE | 2023-09-16 12:31 | XR ---
EXAMINATION TYPE: XR chest 1V portable DATE OF EXAM: 09/16/2023 Comparison: 09/13/2023 Clinical History: 78-year-old female CHF Findings: Heart borderline enlarged. Interstitial prominence is similar. No rose consolidation or sizable pleu ral effusion. Impression: There may be similar mild pulmonary vascular congestion. No rose pulmonary edema.
[2023-09-16 12:36] LABS: Glucose,Whole Blood 189 mg/dL (70-110)
[2023-09-16] MEDS ORDERED: DEXTROSE 50% SYRINGE 50 ML IVP PRN ×2 (14:27)
[2023-09-16 17:02] LABS: Glucose,Whole Blood 148 mg/dL (70-110)
[2023-09-16] MEDS: INSULIN ASPART (NovoLOG) 100 UNIT/ML VIAL SQ SCH (17:15)
[2023-09-16 20:37] LABS: Glucose,Whole Blood 210 mg/dL (70-110)
--- NOTE | 2023-09-16 21:13 | P.PN ---
Subjective Progress Note Date: 09/16/23 Principal diagnosis: Reason for follow-up is COVID-19 and pneumonia Patient is a 78-year-old female with a past medical history significant for diabetes mellitus hypertension hyperlipidemia heart failure patient was brought to the hospital complaining of worsening cough and congestion, patient did tested positive for COVID-19 chest x-ray no acute cardiopulmonary disease process. On today's evaluation there is 09/16/2023 patient continues to be afebrile, the patient is breathing comfortably on 2 L nasal cannula oxygen, the patient denies any chest pain she did have a cough with occasional sputum production no nausea vomiting no abdominal pain no diarrhea. Feeling slightly better Patient did have a white count of 10.70 creatinine is 2.0 procalcitonin 0.10 Objective - Vital Signs Vital signs: Vital Signs Temp 97.9 F 09/16/23 07:00 Pulse 62 09/16/23 07:00 Resp 16 09/16/23 07:00 BP 129/74 09/16/23 07:00 Pulse Ox 97 09/16/23 09:48 FiO2 Intake & Output 09/15/23 09/16/23 09/16/23 18:59 06:59 18:59 Intake Total 236 118 Output Total 550 Balance 236 -550 118 Intake: Oral 236 118 Output: Urine 550 Other: Voiding Method Bedside Commode Bedside Commode Bedside Commode External Catheter External Catheter External Catheter # Voids 1 - Exam GENERAL DESCRIPTION: An elderly female lying in bed in no distress RESPIRATORY SYSTEM: Unlabored breathing , decreased breath sounds at bases HEART: S1 S2 regular rate and rhythm , ABDOMEN: Soft , no tenderness EXTREMITIES: No edema feet - Labs CBC & Chem 7: 09/16/23 06:04 09/16/23 06:04 Labs: Abnormal Lab Results - Last 24 Hours (Table) 09/15/23 09/15/23 09/16/23 Range/Units 17:23 20:31 06:04 WBC 10.70 H (4.50-10.00) X 10*3/uL RBC 3.83 L (4.10-5.20) X 10*6/uL Hgb 11.8 L (12.0-15.0) g/dL MCV 98.2 H (80.0-97.0) FL MCHC 31.4 L (32.0-37.0) g/dL MPV 9.2 L (9.5-12.2) FL Immature Gran # 0.05 H (0.00-0.04) X 10*3/uL Neutrophils # 7.98 H (1.80-7.70) X 10*3/uL Sodium (135-145) mmol/L BUN (9.0-27.0) mg/dL Creatinine (0.6-1.5) mg/dL Est GFR (CKD-EPI) (>=60) BUN/Creatinine Ratio (12.00-20.00) Ratio Glucose (70-110) mg/dL POC Glucose (mg/dL) 136 H 247 H (70-110) mg/dL Calcium (8.7-10.3) mg/dL Total Bilirubin (0.3-1.2) mg/dL ALT (8-44) U/L Total Protein (6.2-8.2) g/dL Albumin (3.8-4.9) g/dL Albumin/Globulin Ratio (1.60-3.17) Ratio 09/16/23 09/16/23 09/16/23 Range/Units 06:04 09:59 12:34 WBC (4.50-10.00) X 10*3/uL RBC (4.10-5.20) X 10*6/uL Hgb (12.0-15.0) g/dL MCV (80.0-97.0) FL MCHC (32.0-37.0) g/dL MPV (9.5-12.2) FL Immature Gran # (0.00-0.04) X 10*3/uL Neutrophils # (1.80-7.70) X 10*3/uL Sodium 147 H (135-145) mmol/L BUN 40.4 H (9.0-27.0) mg/dL Creatinine 2.0 H (0.6-1.5) mg/dL Est GFR (CKD-EPI) 25 L (>=60) BUN/Creatinine Ratio 20.20 H (12.00-20.00) Ratio Glucose 49 A* (70-110) mg/dL POC Glucose (mg/dL) 147 H 189 H (70-110) mg/dL Calcium 8.0 L (8.7-10.3) mg/dL Total Bilirubin <0.2 L (0.3-1.2) mg/dL ALT <5 L (8-44) U/L Total Protein 5.3 L (6.2-8.2) g/dL Albumin 3.0 L (3.8-4.9) g/dL Albumin/Globulin Ratio 1.30 L (1.60-3.17) Ratio Assessment and Plan (1) COVID-19 Current Visit: Yes Status: Acute Code(s): U07.1 - COVID-19 SNOMED Code(s): 369354506 (2) Pneumonia Current Visit: Yes Status: Acute Code(s): J18.9 - PNEUMONIA, UNSPECIFIED ORGANISM SNOMED Code(s): 637792490 Plan: 1patient presented to hospital with weakness congested cough and this patient symptom has been going on for more than a week patient did have a no acute infiltrate on the chest x-ray and also have elevated creatinine on these factors will disqualify her for remdesivir therapy 2-patient did have a mildly positive UA may be contributing to some of her symptoms concerning for possible UTI from enteric gram-negative pathogen 3-Patient to continue with the Eliquis along with zinc and ascorbic acid 4-still waiting for sputum for Gram stain culture collection and will continue the patient on Rocephin 1 g daily while waiting for the culture to finalize Dictation was produced using [employer] dictation software. please excuse any grammatical, word or spelling errors. Time with Patient: Less than 30
--- NOTE | 2023-09-16 23:59 | PN ---
PROGRESS NOTE DATE OF SERVICE: 09/16/2023 SUBJECTIVE: This is a 78-year-old woman who was admitted with COVID-19 infection with severe dehydration, is still complaining of weakness. No chest pain, no palpitation. The chest x-ray which was reviewed personally showed some mild vascular congestion. REVIEW OF SYSTEMS: Reviewed. CURRENT MEDICATIONS: Reviewed. OBJECTIVE: VITAL SIGNS: Pulse is 62, blood pressure 120/70, respirations 16. CHEST: Few scattered rhonchi. ABDOMEN: Soft. NERVOUS SYSTEM: Nonfocal. LABORATORY DATA: Reviewed, 2D echo showed mild LV systolic dysfunction. ASSESSMENT: 1. Acute COVID-19 infection with severe dehydration present on admission. 2. CHF acute exacerbation acute on chronic systolic dysfunction. 3. Rule out UTI. 4. Acute renal failure secondary to acute tubular necrosis present on admission and prerenal failure. 5. Diabetes mellitus, type 2. 6. Hypertension. 7. Hyperlipidemia. 8. History of CHF. 9. Multiple medical issues. RECOMMENDATIONS: Recommended to continue current management and continue symptomatic treatment, otherwise at this time I would recommend Nephrology consultation for the chronic renal disease and stop the IV fluids and continue to monitor. Guarded prognosis. Further recommendations to follow. See orders for details. Cardiology evaluation. MMODL / IJN: [id number] /
[2023-09-17 02:16] LABS: Glucose,Whole Blood 91 mg/dL (70-110)
[2023-09-17 06:15] LABS: Glucose,Whole Blood 72 mg/dL (70-110)
[2023-09-17 08:35] LABS: Basophils % (A) 0 %; Eosinophils # (A) 0.1 k/uL (0-0.7); Eosinophils % (A) 1 %; HCT 38.4 % (34.0-46.0); HGB 11.9 gm/dL (11.4-16.0); Hypochromasia Slight; Lymphocytes # (A) 1.2 k/uL (1.0-4.8); Lymphocytes % (A) 12 %; MCH 30.8 pg (25.0-35.0); MCV 99.3 fL (80.0-100.0); Mean Platelet Volume 7.5; Monocytes # (A) 0.6 k/uL (0-1.0); Monocytes % (A) 6 %; Neutrophils # (A) 7.8 k/uL (1.3-7.7); Neutrophils % (A) 80 %; Platelet Count 194 k/uL (150-450); RBC 3.86 m/uL (3.80-5.40); RDW 13.5 % (11.5-15.5); WBC 9.8 k/uL (3.8-10.6)
[2023-09-17 09:47] LABS: African American GFR (CKD) 34 (>60 ml/min/1.73 sqM); Anion Gap 8 mmol/L; Blood Urea Nitrogen 39 mg/dL (7-17); Calcium 7.5 mg/dL (8.4-10.2); Carbon Dioxide 31 mmol/L (22-30); Chloride 105 mmol/L (98-107); Glucose 58 mg/dL (74-99); Non-African American GFR(CKD) 30 (>60 ml/min/1.73 sqM); Potassium 4.2 mmol/L (3.5-5.1); Sodium 144 mmol/L (137-145)
[2023-09-17] MEDS: INSULIN DETEMIR (LEVEMIR) 100 UNIT/ML SYR SQ SCH (09:57)
[2023-09-17 10:09] LABS: Glucose,Whole Blood 103 mg/dL (70-110)
--- NOTE | 2023-09-17 11:30 | P.NPCON ---
History of Present Illness - Reason for Consult acute renal failure - History of Present Illness Patient is a 78-year-old female with history of type 2 diabetes, hypertension, CHF and rheumatoid arthritis. She was admitted to the hospital with increased weakness. Patient tested positive for Covid 19. History of chronic kidney disease NKF stage IIIB to IV with baseline creatinine 1.7-2 mg/dL. Serum creatinine currently at 1.6 mg/dL. Currently maintained on oral Bumex and also on Cozaar 12.5 mg daily. Good urine output Blood pressure is not low, in fact it is high Review of Systems As per HPI Past Medical History Past Medical History: Heart Failure, Diabetes Mellitus, Hyperlipidemia, Hypertension, Pneumonia, Rheumatoid Arthritis (RA) Additional Past Medical History / Comment(s): tremors, renal lithiasis, hemorrhoids(sx done), "has had problems w/low magnesium.anemia. per posue pt had past cancer "uterine or cervical-had hysterectomy". it was previously charted that pt had hx of ra and cfh spouse not able to verify this, History of Any Multi-Drug Resistant Organisms: ESBL Date of last positivie culture/infection: 05/11/18 MDRO Source:: ESBL URINE Past Surgical History: Appendectomy, Hysterectomy, Orthopedic Surgery, Tonsillectomy Additional Past Surgical History / Comment(s): rt total knee repalcement, cataracts, hemmorroidectomy, colonoscopy Past Anesthesia/Blood Transfusion Reactions: No Reported Reaction Additional Past Anesthesia/Blood Transfusion Reaction / Comment(s): per psouse- pt never receieved any blood Past Psychological History: No Psychological Hx Reported Smoking Status: Never smoker Past Alcohol Use History: None Reported Past Drug Use History: None Reported - Past Family History Mother Family Medical History: Diabetes Mellitus Father Additional Family Medical History / Comment(s): brain anuerysm Medications and Allergies Home Medications Medication Instructions Recorded Confirmed Type Simvastatin [Zocor] 20 mg PO HS 07/18/14 09/14/23 History Ferrous Sulfate [Iron (65 MG 325 mg PO W/SUPPER 11/10/21 09/14/23 History Elemental)] Bethanechol Chloride [Urecholine] 5 mg PO DAILY 07/23/22 09/14/23 History Potassium Chloride [Klor-Con M20] 20 meq PO DAILY 07/23/22 09/14/23 History Primidone 75 mg PO BID 07/23/22 09/14/23 History allopurinoL [Zyloprim] 300 mg PO DAILY 07/23/22 09/14/23 History busPIRone HCl [Buspar] 5 mg PO DAILY 07/23/22 09/14/23 History Apixaban [Eliquis] 5 mg PO BID tab 08/04/22 09/14/23 Rx Metoprolol Succinate (ER) [Toprol 25 mg PO BID tab 08/04/22 09/14/23 Rx XL] Carbidopa-Levodopa 25-100 mg 1 tab PO TID 09/14/23 09/14/23 History [Sinemet 25-100] Escitalopram Oxalate [Lexapro] 10 mg PO DAILY 09/14/23 09/14/23 History Estrogens, Conjugated Cream 1 applicator VAGINAL DAILY PRN 09/14/23 09/14/23 History [Premarin Vaginal Cream] Furosemide [Lasix] 20 mg PO DAILY 09/14/23 09/14/23 History Insulin Glargine,Hum.rec.anlog 20 units SQ HS 09/14/23 09/14/23 History [Lantus Solostar Pen] Insulin Glargine,Hum.rec.anlog 40 units SQ DAILY 09/14/23 09/14/23 History [Lantus Solostar Pen] Insulin Lispro [humaLOG Kwikpen] 16 units SQ TID 09/14/23 09/14/23 History Levofloxacin [Levaquin] 500 mg PO DAILY 09/14/23 09/14/23 History Levothyroxine Sodium [Synthroid] 25 mcg PO DAILY 09/14/23 09/14/23 History Losartan [Cozaar] 50 mg PO DAILY 09/14/23 09/14/23 History Oxybutynin Xl [Ditropan XL] 5 mg PO TID 09/14/23 09/14/23 History Allergies Allergy/AdvReac Type Severity Reaction Status Date / Time gabapentin AdvReac Hallucinati Verified 06/11/23 01:20 ons Physical Exam Vitals: Vital Signs Temp Pulse Resp BP Pulse Ox 09/17/23 08:00 16 09/17/23 07:15 97.7 F 67 15 143/70 95 09/17/23 02:22 97.9 F 66 17 150/78 96 09/16/23 20:31 75 09/16/23 18:44 98.1 F 75 16 179/76 94 L 09/16/23 15:00 98.1 F 76 16 143/69 95 Intake and Output 09/16/23 09/17/23 09/17/23 22:59 06:59 14:59 Intake Total 236 Balance 236 Intake: Oral 236 Other: Voiding Method Toilet Toilet Diaper Diaper # Voids 1 1 Patient is awake, comfortable, no acute distress Examination of the heart S1 and S2 Examination of the lungs decreased breath sounds at the bases Abdomen is soft Examination of lower extremities shows trace edema [employer] exam 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 Results - Lab Results Most recent lab results Calcium 7.5 mg/dL (8.4-10.2) L 09/17/23 07:51 09/17/23 07:51 09/17/23 07:51 Assessment and Plan Assessment: 1. Chronic kidney disease NKF stage IV Secondary to nephrosclerosis, baseline creatinine 1.7-2 mg/dL. Renal function currently at baseline 2. Covid pneumonia 3. Pyuria 4. Hypertension with CK D stage IV maintained on Toprol Cozaar , amlodipine and Bumex Plan: Continue current dose of Bumex Continue to monitor for metabolic alkalosis. Thank you for the consultation. We will continue to follow the patient with you during her hospitalization.
[2023-09-17 12:32] LABS: Glucose,Whole Blood 119 mg/dL (70-110)
--- NOTE | 2023-09-17 12:56 | P.PN ---
Subjective Progress Note Date: 09/17/23 Principal diagnosis: Reason for follow-up is COVID-19 and pneumonia Patient is a 78-year-old female with a past medical history significant for diabetes mellitus hypertension hyperlipidemia heart failure patient was brought to the hospital complaining of worsening cough and congestion, patient did tested positive for COVID-19 chest x-ray no acute cardiopulmonary disease process. On today's evaluation there is 09/17/2023 patient remains to be afebrile, the patient is breathing comfortably on 2 L nasal cannula oxygen, the patient denies any chest pain, the patient cough has decreased in intensity mostly dry nature, patient did have some nausea but no vomiting did have some epigastric discomfort and no diarrhea. Patient did have a white count of 9.8 creatinine is 1.66 procalcitonin 0.10 Objective - Vital Signs Vital signs: Vital Signs Temp 97.7 F 09/17/23 07:15 Pulse 67 09/17/23 07:15 Resp 16 09/17/23 08:00 BP 143/70 09/17/23 07:15 Pulse Ox 95 09/17/23 07:15 FiO2 Intake & Output 09/16/23 09/17/23 09/17/23 18:59 06:59 18:59 Intake Total 236 236 Output Total 500 Balance -264 236 Intake: Oral 236 236 Output: Urine 500 Other: Voiding Method Bedside Commode Toilet Toilet External Catheter Diaper Diaper # Voids 1 1 - Exam GENERAL DESCRIPTION: An elderly female lying in bed in no distress RESPIRATORY SYSTEM: Unlabored breathing , decreased breath sounds at bases HEART: S1 S2 regular rate and rhythm , ABDOMEN: Soft , no tenderness EXTREMITIES: No edema feet - Labs CBC & Chem 7: 09/17/23 07:51 09/17/23 07:51 Labs: Abnormal Lab Results - Last 24 Hours (Table) 09/16/23 09/16/23 09/17/23 Range/Units 17:01 20:30 07:51 Neutrophils # 7.8 H (1.3-7.7) k/uL Carbon Dioxide (22-30) mmol/L BUN (7-17) mg/dL Creatinine (0.52-1.04) mg/dL Glucose (74-99) mg/dL POC Glucose (mg/dL) 148 H 210 H (70-110) mg/dL Calcium (8.4-10.2) mg/dL 09/17/23 09/17/23 Range/Units 07:51 12:30 Neutrophils # (1.3-7.7) k/uL Carbon Dioxide 31 H (22-30) mmol/L BUN 39 H (7-17) mg/dL Creatinine 1.66 H (0.52-1.04) mg/dL Glucose 58 L (74-99) mg/dL POC Glucose (mg/dL) 119 H (70-110) mg/dL Calcium 7.5 L (8.4-10.2) mg/dL Microbiology - Last 24 Hours (Table) 09/15/23 13:35 Blood Culture - Preliminary Blood Assessment and Plan (1) COVID-19 Current Visit: Yes Status: Acute Code(s): U07.1 - COVID-19 SNOMED Code(s): 323505546 (2) Pneumonia Current Visit: Yes Status: Acute Code(s): J18.9 - PNEUMONIA, UNSPECIFIED ORGANISM SNOMED Code(s): 241055980 Plan: 1patient presented to hospital with weakness congested cough and this patient symptom has been going on for more than a week patient did have a no acute infiltrate on the chest x-ray and also have elevated creatinine on these factors will disqualify her for remdesivir therapy 2-patient did have a mildly positive UA may be contributing to some of her symptoms concerning for possible UTI from enteric gram-negative pathogen, urine culture not done 3-Patient to continue with the Eliquis along with zinc and ascorbic acid 4- patient will continue the patient on Rocephin 1 g daily and monitor clinical course closely Dictation was produced using [employer] dictation software. please excuse any grammatical, word or spelling errors. Time with Patient: Less than 30
[2023-09-17] MEDS ORDERED: FAMOTIDINE 20 MG TAB PO SCH (13:00)
[2023-09-17] MEDS: FAMOTIDINE 20 MG TAB PO SCH (13:07)
[2023-09-17 17:36] LABS: Glucose,Whole Blood 205 mg/dL (70-110)
[2023-09-17 20:14] LABS: Glucose,Whole Blood 245 mg/dL (70-110)
--- NOTE | 2023-09-17 22:01 | PN ---
PROGRESS NOTE DATE OF SERVICE: 09/17/2023 SUBJECTIVE: This is a 78-year-old woman, who was admitted with COVID-19 infection. She is still complaining of weakness. No chest pain. No palpitations. No fever. PHYSICAL EXAMINATION: VITAL SIGNS: Pulse is 67, blood pressure and respirations 15. CHEST: Clear. CARDIOVASCULAR: S1, S2. ABDOMEN: Soft. NERVOUS SYSTEM: Nonfocal. LABORATORY DATA: Creatinine 1.66. ASSESSMENT: 1. Acute COVID-19 infection with severe dehydration present on admission. 2. Congestive heart failure acute exacerbation, acute on chronic systolic dysfunction. 3. Rule out urinary tract infection. 4. Acute renal failure secondary to acute tubular necrosis present on admission and prerenal renal failure. 5. Diabetes, type 2. 6. Hypertension. 7. Multiple complex medical issues. RECOMMENDATIONS: Recommend to continue current management, continue symptomatic treatment. Cultures are negative so far. Otherwise, creatinine is improved to 1.66. We will continue to monitor, repeat labs, closely follow with multiple consultants. Further recommendations to follow. MMODL / IJN: [id number] / MTDD
[2023-09-18 01:35] LABS: Glucose,Whole Blood 187 mg/dL (70-110)
[2023-09-18 06:00] LABS: Glucose,Whole Blood 101 mg/dL (70-110)
[2023-09-18 10:10] LABS: Basophils # (A) 0.02 X 10*3/uL (0.00-0.10); Basophils % (A) 0.2 %; Eosinophils # (A) 0.14 X 10*3/uL (0.04-0.35); Eosinophils % (A) 1.2 %; HCT 39.5 % (37.2-46.3); HGB 12.2 g/dL (12.0-15.0); Lymphocytes # (A) 1.13 X 10*3/uL (0.90-5.00); Lymphocytes % (A) 9.6 %; MCH 30.5 pg (27.0-32.0); MCHC 30.9 g/dL (32.0-37.0); MCV 98.8 FL (80.0-97.0); Mean Platelet Volume 9.4 FL (9.5-12.2); Monocytes % (A) 7.7 %; NRBC Per 100 WBC 0 X 10*3/uL (0.00-0.01); Neutrophils # (A) 9.47 X 10*3/uL (1.80-7.70); Neutrophils % (A) 80.8 %; Platelet Count 204 X 10*3/uL (140-440); WBC 11.72 X 10*3/uL (4.50-10.00)
[2023-09-18 10:16] LABS: BUN/Creat Ratio 18.65 Ratio (12.00-20.00); Blood Urea Nitrogen 31.7 mg/dL (9.0-27.0); Calcium 7.7 mg/dL (8.7-10.3); Carbon Dioxide 29.3 mmol/L (21.6-31.8); Chloride 110 mmol/L (96-109); Glucose 103 mg/dL (70-110); Potassium 4.3 mmol/L (3.5-5.5); Sodium 146 mmol/L (135-145)
--- NOTE | 2023-09-18 11:01 | XR ---
EXAMINATION TYPE: XR chest 1V portable DATE OF EXAM: 09/18/2023 COMPARISON: 09/16/2023 INDICATION: Cough TECHNIQUE: Single frontal view of the chest is obtained. FINDINGS: The heart size is normal. The pulmonary vasculature is normal. Mild bibasilar infiltrates are present. These are increasing from comparison. IMPRESSION: 1. Bibasilar infiltrates. Atelectasis, pneumonia, an atypical pneumonia are within the differential. Follow-up can be performed.
--- NOTE | 2023-09-18 12:01 | P.PN ---
Subjective Patient is seen for follow-up for chronic kidney disease.. No significant complaints today. Overall feeling better. Serum creatinine staying at 1.6-1.7 mg/dL. 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 - Labs CBC & Chem 7: 09/18/23 05:55 09/18/23 05:55 Labs: Abnormal Lab Results - Last 24 Hours (Table) 09/17/23 09/17/23 09/17/23 Range/Units 07:51 12:30 17:34 WBC (4.50-10.00) X 10*3/uL RBC (4.10-5.20) X 10*6/uL MCV (80.0-97.0) FL MCHC (32.0-37.0) g/dL MPV (9.5-12.2) FL Immature Gran # (0.00-0.04) X 10*3/uL Neutrophils # (1.80-7.70) X 10*3/uL Sodium (135-145) mmol/L Chloride (96-109) mmol/L BUN (9.0-27.0) mg/dL Creatinine (0.6-1.5) mg/dL Est GFR (CKD-EPI) (>=60) POC Glucose (mg/dL) 119 H 205 H (70-110) mg/dL Hemoglobin A1c 7.5 H (<=6.0) % Calcium (8.7-10.3) mg/dL 09/17/23 09/18/23 09/18/23 Range/Units 20:13 01:33 05:55 WBC 11.72 H (4.50-10.00) X 10*3/uL RBC 4.00 L (4.10-5.20) X 10*6/uL MCV 98.8 H (80.0-97.0) FL MCHC 30.9 L (32.0-37.0) g/dL MPV 9.4 L (9.5-12.2) FL Immature Gran # 0.06 H (0.00-0.04) X 10*3/uL Neutrophils # 9.47 H (1.80-7.70) X 10*3/uL Sodium (135-145) mmol/L Chloride (96-109) mmol/L BUN (9.0-27.0) mg/dL Creatinine (0.6-1.5) mg/dL Est GFR (CKD-EPI) (>=60) POC Glucose (mg/dL) 245 H 187 H (70-110) mg/dL Hemoglobin A1c (<=6.0) % Calcium (8.7-10.3) mg/dL 09/18/23 Range/Units 05:55 WBC (4.50-10.00) X 10*3/uL RBC (4.10-5.20) X 10*6/uL MCV (80.0-97.0) FL MCHC (32.0-37.0) g/dL MPV (9.5-12.2) FL Immature Gran # (0.00-0.04) X 10*3/uL Neutrophils # (1.80-7.70) X 10*3/uL Sodium 146 H (135-145) mmol/L Chloride 110 H (96-109) mmol/L BUN 31.7 H (9.0-27.0) mg/dL Creatinine 1.7 H (0.6-1.5) mg/dL Est GFR (CKD-EPI) 31 L (>=60) POC Glucose (mg/dL) (70-110) mg/dL Hemoglobin A1c (<=6.0) % Calcium 7.7 L (8.7-10.3) mg/dL Microbiology - Last 24 Hours (Table) 09/15/23 13:35 Blood Culture - Preliminary Blood 09/15/23 23:00 Urine Culture - Preliminary Urine,Voided Gram Neg Bacilli Assessment and Plan Assessment: 1. Chronic kidney disease NKF stage IV Secondary to nephrosclerosis, baseline creatinine 1.7-2 mg/dL. Renal function currently at baseline 2. Covid pneumonia 3. Pyuria 4. Hypertension with CK D stage IV maintained on Toprol Cozaar , amlodipine and Bumex Plan: Continue current dose of Bumex Continue to monitor for metabolic alkalosis.
[2023-09-18 12:23] LABS: Glucose,Whole Blood 176 mg/dL (70-110)
[2023-09-18 17:25] LABS: Glucose,Whole Blood 179 mg/dL (70-110)
[2023-09-18 20:23] LABS: Glucose,Whole Blood 180 mg/dL (70-110)
[2023-09-18] MEDS: CHLORHEXIDINE GLUCONATE 15 ML CUP MUCOUS MEM SCH (22:02)
[2023-09-19 02:13] LABS: Glucose,Whole Blood 120 mg/dL (70-110)
--- NOTE | 2023-09-19 05:28 | PN ---
PROGRESS NOTE DATE OF SERVICE: 09/18/2023 SUBJECTIVE: This is a 78-year-old woman, who was admitted with COVID-19 infection, is complaining of tiredness, weakness. No chest pain. No palpitations. No fever. PHYSICAL EXAMINATION: VITAL SIGNS: Pulse is 74, blood pressure 158/76, respirations 17. CHEST: Few scattered rhonchi. ABDOMEN: Soft. NERVOUS SYSTEM: Nonfocal. LABS: WBC 11.7. Sodium 146. ASSESSMENT: 1. Acute COVID-19 infection with severe dehydration, present on admission. 2. CHF acute exacerbation, acute on chronic systolic dysfunction. 3. Rule out UTI. 4. Acute renal failure secondary to acute tubular necrosis, present on admission, and acute prerenal renal failure. 5. Diabetes mellitus, type 2. 6. Hypertension. 7. Multiple complex medical issues. RECOMMENDATION: Continue current management and symptomatic treatment, otherwise, repeat labs. Cautious hydration. The urine culture showed gram-negative bacilli. The patient is on empiric antibiotics. Infectious Disease following the patient closely. Prognosis guarded. Further recommendations to follow. MMODL / IJN: [id number] /
[2023-09-19 06:03] LABS: Glucose,Whole Blood 93 mg/dL (70-110)
[2023-09-19 11:15] LABS: Basophils # (A) 0.03 X 10*3/uL (0.00-0.10); Basophils % (A) 0.2 %; Eosinophils # (A) 0.17 X 10*3/uL (0.04-0.35); Eosinophils % (A) 1.3 %; HCT 38.6 % (37.2-46.3); HGB 11.9 g/dL (12.0-15.0); Lymphocytes # (A) 1.05 X 10*3/uL (0.90-5.00); Lymphocytes % (A) 8.3 %; MCH 30.7 pg (27.0-32.0); MCHC 30.8 g/dL (32.0-37.0); MCV 99.7 FL (80.0-97.0); Mean Platelet Volume 9.4 FL (9.5-12.2); Monocytes # (A) 1.01 X 10*3/uL (0.20-1.00); NRBC Per 100 WBC 0 X 10*3/uL (0.00-0.01); Neutrophils # (A) 10.28 X 10*3/uL (1.80-7.70); Neutrophils % (A) 81.6 %; Platelet Count 207 X 10*3/uL (140-440); RBC 3.87 X 10*6/uL (4.10-5.20); RDW 14.2 % (11.5-14.5); WBC 12.61 X 10*3/uL (4.50-10.00)
[2023-09-19 11:21] LABS: BUN/Creat Ratio 16.94 Ratio (12.00-20.00); Blood Urea Nitrogen 28.8 mg/dL (9.0-27.0); Calcium 7.6 mg/dL (8.7-10.3); Carbon Dioxide 25.4 mmol/L (21.6-31.8); Chloride 110 mmol/L (96-109); Glucose 67 mg/dL (70-110); Potassium 4.1 mmol/L (3.5-5.5); Sodium 144 mmol/L (135-145)
--- NOTE | 2023-09-19 11:39 | P.PN ---
Subjective Patient is seen in follow-up for chronic kidney disease. Still has a cough. On nasal cannula. Has been voiding. Denies chest pain or shortness of breath. Vital signs are stable. General: No acute distress. HEENT: Head exam is unremarkable. LUNGS: No audible rhonchi or wheezes. HEART: Rate and Rhythm are regular. ABDOMEN: Nontender. EXTREMITITES: No edema. Objective - Vital Signs Vital signs: Vital Signs Temp 98.4 F 09/19/23 08:00 Pulse 72 09/19/23 08:00 Resp 16 09/19/23 08:00 BP 170/69 09/19/23 08:00 Pulse Ox 92 L 09/19/23 08:00 FiO2 Intake & Output 09/18/23 09/19/23 09/19/23 18:59 06:59 18:59 Intake Total 354 Balance 354 Intake: Oral 354 Other: Voiding Method Bedpan Bedpan Bedpan Diaper Diaper Diaper # Voids 3 1 1 - Labs CBC & Chem 7: 09/19/23 07:36 09/19/23 07:36 Labs: Abnormal Lab Results - Last 24 Hours (Table) 09/18/23 09/18/23 09/18/23 Range/Units 12:21 17:23 20:22 WBC (4.50-10.00) X 10*3/uL RBC (4.10-5.20) X 10*6/uL Hgb (12.0-15.0) g/dL MCV (80.0-97.0) FL MCHC (32.0-37.0) g/dL MPV (9.5-12.2) FL Immature Gran # (0.00-0.04) X 10*3/uL Neutrophils # (1.80-7.70) X 10*3/uL Monocytes # (0.20-1.00) X 10*3/uL Chloride (96-109) mmol/L BUN (9.0-27.0) mg/dL Creatinine (0.6-1.5) mg/dL Est GFR (CKD-EPI) (>=60) Glucose (70-110) mg/dL POC Glucose (mg/dL) 176 H 179 H 180 H (70-110) mg/dL Calcium (8.7-10.3) mg/dL 09/19/23 09/19/23 09/19/23 Range/Units 02:10 07:36 07:36 WBC 12.61 H (4.50-10.00) X 10*3/uL RBC 3.87 L (4.10-5.20) X 10*6/uL Hgb 11.9 L (12.0-15.0) g/dL MCV 99.7 H (80.0-97.0) FL MCHC 30.8 L (32.0-37.0) g/dL MPV 9.4 L (9.5-12.2) FL Immature Gran # 0.07 H (0.00-0.04) X 10*3/uL Neutrophils # 10.28 H (1.80-7.70) X 10*3/uL Monocytes # 1.01 H (0.20-1.00) X 10*3/uL Chloride 110 H (96-109) mmol/L BUN 28.8 H (9.0-27.0) mg/dL Creatinine 1.7 H (0.6-1.5) mg/dL Est GFR (CKD-EPI) 31 L (>=60) Glucose 67 L (70-110) mg/dL POC Glucose (mg/dL) 120 H (70-110) mg/dL Calcium 7.6 L (8.7-10.3) mg/dL Microbiology - Last 24 Hours (Table) 09/15/23 13:35 Blood Culture - Preliminary Blood 09/15/23 23:00 Urine Culture - Final Urine,Voided Escherichia coli Assessment and Plan Plan: Assessment: 1. Chronic kidney disease stage IV secondary to nephrosclerosis with baseline creatinine 1.72. GFR near baseline. 2. Covid-19 pneumonia. On nasal cannula. 3. Hypertension with chronic kidney disease. 4. E. coli UTI. On antibiotics. 5. Diabetes mellitus. Plan: Encourage oral intake. Avoid nephrotoxins.
[2023-09-19 12:11] LABS: Glucose,Whole Blood 172 mg/dL (70-110)
[2023-09-19 17:16] LABS: Glucose,Whole Blood 393 mg/dL (70-110)
[2023-09-19 20:45] LABS: Glucose,Whole Blood 108 mg/dL (70-110)
[2023-09-20 03:41] LABS: Glucose,Whole Blood 98 mg/dL (70-110)
--- NOTE | 2023-09-20 05:38 | PN ---
PROGRESS NOTE DATE OF SERVICE: 09/19/2023 SUBJECTIVE: This is a 78-year-old woman who was admitted with COVID-19 infection, also had multiple complex medical issues and CHF and possible E. coli UTI also, ESBL E coli. No chest pain, no palpitations, no fever. OBJECTIVE: VITAL SIGNS: Pulse is 72, blood pressure 170/69, respirations 16. CHEST: Clear to auscultation. CARDIOVASCULAR: S1, S2 ABDOMEN: Soft. NERVOUS SYSTEM: Nonfocal. LABORATORY DATA: Reviewed. ASSESSMENT: 1. Acute COVID-19 infection with severe dehydration present on admission. 2. Acute urinary tract infection with ESBL E coli, present on admission. 3. CHF acute exacerbation, acute on chronic systolic dysfunction. 4. Acute renal failure secondary to acute tubular necrosis present on admission and acute renal failure. 5. Diabetes mellitus, type 2. 6. Hypertension. 7. Multiple complex medical issues. RECOMMENDATIONS: Recommended to continue current management, continue symptomatic treatment. Continue with antibiotics, infectious disease evaluation. Prognosis guarded. Repeat labs. Guarded prognosis. Further recommendations to follow. MMODL / IJN: [id number] /
[2023-09-20 06:00] LABS: Glucose,Whole Blood 112 mg/dL (70-110)
[2023-09-20 09:01] LABS: Basophils # (A) 0.01 X 10*3/uL (0.00-0.10); Basophils % (A) 0.1 %; Eosinophils # (A) 0.15 X 10*3/uL (0.04-0.35); Eosinophils % (A) 1.5 %; HCT 37.5 % (37.2-46.3); HGB 11.6 g/dL (12.0-15.0); Lymphocytes # (A) 1.19 X 10*3/uL (0.90-5.00); Lymphocytes % (A) 12.1 %; MCH 30.2 pg (27.0-32.0); MCHC 30.9 g/dL (32.0-37.0); MCV 97.7 FL (80.0-97.0); Mean Platelet Volume 9.6 FL (9.5-12.2); Monocytes % (A) 9.1 %; NRBC Per 100 WBC 0 X 10*3/uL (0.00-0.01); Neutrophils # (A) 7.55 X 10*3/uL (1.80-7.70); Neutrophils % (A) 76.7 %; Platelet Count 208 X 10*3/uL (140-440); RBC 3.84 X 10*6/uL (4.10-5.20); RDW 14.3 % (11.5-14.5); WBC 9.85 X 10*3/uL (4.50-10.00)
[2023-09-20 10:38] LABS: BUN/Creat Ratio 17.81 Ratio (12.00-20.00); Blood Urea Nitrogen 28.5 mg/dL (9.0-27.0); Calcium 7.6 mg/dL (8.7-10.3); Carbon Dioxide 26.9 mmol/L (21.6-31.8); Chloride 109 mmol/L (96-109); Glucose 95 mg/dL (70-110); Potassium 4.2 mmol/L (3.5-5.5); Sodium 144 mmol/L (135-145)
--- NOTE | 2023-09-20 12:30 | P.PN ---
Subjective Patient is seen in follow-up for chronic kidney disease. Renal function stable. Has been voiding. Denies chest pain or shortness of breath. Vital signs are stable. General: No acute distress. HEENT: Head exam is unremarkable. On nasal cannula. LUNGS: No audible rhonchi or wheezes. HEART: Rate and Rhythm are regular. ABDOMEN: Nontender. EXTREMITITES: 1+ edema. Objective - Vital Signs Vital signs: Vital Signs Temp 98.0 F 09/20/23 08:00 Pulse 73 09/20/23 08:00 Resp 16 09/20/23 08:00 BP 147/63 09/20/23 08:00 Pulse Ox 92 L 09/20/23 08:00 FiO2 Intake & Output 09/19/23 09/20/23 09/20/23 18:59 06:59 18:59 Intake Total 236 Balance 236 Intake: Oral 236 Other: Voiding Method Bedpan Bedpan Toilet Diaper Diaper Diaper # Voids 0 2 2 # Bowel Movements 1 2 - Labs CBC & Chem 7: 09/20/23 05:23 09/20/23 05:23 Labs: Abnormal Lab Results - Last 24 Hours (Table) 09/19/23 09/20/23 09/20/23 Range/Units 17:14 05:23 05:23 RBC 3.84 L (4.10-5.20) X 10*6/uL Hgb 11.6 L (12.0-15.0) g/dL MCV 97.7 H (80.0-97.0) FL MCHC 30.9 L (32.0-37.0) g/dL Immature Gran # 0.05 H (0.00-0.04) X 10*3/uL BUN 28.5 H (9.0-27.0) mg/dL Creatinine 1.6 H (0.6-1.5) mg/dL Est GFR (CKD-EPI) 33 L (>=60) POC Glucose (mg/dL) 393 H (70-110) mg/dL Calcium 7.6 L (8.7-10.3) mg/dL 09/20/23 Range/Units 05:59 RBC (4.10-5.20) X 10*6/uL Hgb (12.0-15.0) g/dL MCV (80.0-97.0) FL MCHC (32.0-37.0) g/dL Immature Gran # (0.00-0.04) X 10*3/uL BUN (9.0-27.0) mg/dL Creatinine (0.6-1.5) mg/dL Est GFR (CKD-EPI) (>=60) POC Glucose (mg/dL) 112 H (70-110) mg/dL Calcium (8.7-10.3) mg/dL Assessment and Plan Plan: Assessment: 1. Chronic kidney disease stage IV secondary to nephrosclerosis with baseline creatinine 1.7-2. GFR near baseline. 2. Covid-19 pneumonia. On nasal cannula. 3. Hypertension with chronic kidney disease. 4. E. coli UTI. On antibiotics. 5. Diabetes mellitus. Plan: Encourage oral intake. Avoid nephrotoxins. Maintain Bumex.
[2023-09-20 12:43] LABS: Glucose,Whole Blood 271 mg/dL (70-110)
[2023-09-20] MEDS: guaiFENesin 600 MG TABLET.ER PO SCH (12:57)
--- NOTE | 2023-09-20 13:27 | P.PN ---
Subjective Progress Note Date: 09/20/23 * 78-year-old female with a past medical history significant for diabetes mellitus hypertension hyperlipidemia heart failure patient was brought to the hospital complaining of worsening cough and congestion patient mention her got sick about 2 weeks ago was subsequently improved however the patient started getting sick more than a week ago symptom has been mostly cough and congestion cough has been mild to moderate intensity with occasional clear sputum no hemoptysis denies any chronic chest pain denies any nausea or vomiting no abdominal pain or diarrhea did have decreased appetite and decreased oral intake patient on presentation to the hospital was afebrile and no fever has been recorded subsequently patient did have mild hypoxemia with O2 sats of 90% on room air currently 94% on 2 L nasal cannula oxygen patient did have a normal white count BUN/creatinine has been elevated lactic acid was elevated liver enzymes are normal urine was positive tested positive for COVID-19 and a procalcitonin 0.10 patient did have a chest x-ray no acute cardiopulmonary disease process infectious disease was consulted for further management and need for remdesivir * Patient was seen by nephrology, infectious disease, cardiology. * During the hospital stay patient was treated with IV antibiotic treated for urinary tract infection, * Patient was also noted to have acute exacerbation of CHF * 09/20/2023 DR MACK Assumed care: Patient seen and evaluated bedside, patient does complain of shortness of breath and generalized weakness, patient does have cough he did continue on current regimen including albuterol, patient also receiving Mucinex. We'll follow-up on CBC and basic metabolic panel with potential discharge to subacute rehab patient did complain of one episode of streak of hemoptysis PHYSICAL EXAMINATION: GENERAL: The patient is alert and oriented x3, ill appearance. Nasal cannula in place HEENT: Pupils are round and equally reacting to light. EOMI Normocephalic, atraumatic. No pharyngeal erythema. No thyromegaly. CARDIOVASCULAR: S1 and S2 present. No murmurs, rubs, or gallops. PULMONARY: Decreased breath sounds bilaterally ABDOMEN: Soft, nontender, nondistended, normoactive bowel sounds. No palpable organomegaly. MUSCULOSKELETAL: No joint swelling or deformity. EXTREMITIES: No cyanosis, clubbing, or pedal edema. NEUROLOGICAL: Gross neurological examination did not reveal any focal deficits. SKIN: No rashes. Objective - Vital Signs Vital signs: Vital Signs Temp 98.0 F 09/20/23 08:00 Pulse 73 09/20/23 08:00 Resp 16 09/20/23 08:00 BP 147/63 09/20/23 08:00 Pulse Ox 92 L 09/20/23 08:00 FiO2 Intake & Output 09/19/23 09/20/23 09/20/23 18:59 06:59 18:59 Intake Total 236 Balance 236 Intake: Oral 236 Other: Voiding Method Bedpan Bedpan Toilet Diaper Diaper Diaper # Voids 0 2 2 # Bowel Movements 1 2 - Labs CBC & Chem 7: 09/20/23 05:23 09/20/23 05:23 Labs: Abnormal Lab Results - Last 24 Hours (Table) 09/19/23 09/20/23 09/20/23 Range/Units 17:14 05:23 05:23 RBC 3.84 L (4.10-5.20) X 10*6/uL Hgb 11.6 L (12.0-15.0) g/dL MCV 97.7 H (80.0-97.0) FL MCHC 30.9 L (32.0-37.0) g/dL Immature Gran # 0.05 H (0.00-0.04) X 10*3/uL BUN 28.5 H (9.0-27.0) mg/dL Creatinine 1.6 H (0.6-1.5) mg/dL Est GFR (CKD-EPI) 33 L (>=60) POC Glucose (mg/dL) 393 H (70-110) mg/dL Calcium 7.6 L (8.7-10.3) mg/dL 09/20/23 09/20/23 Range/Units 05:59 12:38 RBC (4.10-5.20) X 10*6/uL Hgb (12.0-15.0) g/dL MCV (80.0-97.0) FL MCHC (32.0-37.0) g/dL Immature Gran # (0.00-0.04) X 10*3/uL BUN (9.0-27.0) mg/dL Creatinine (0.6-1.5) mg/dL Est GFR (CKD-EPI) (>=60) POC Glucose (mg/dL) 112 H 271 H (70-110) mg/dL Calcium (8.7-10.3) mg/dL Assessment and Plan Assessment: Assessment and plan * Acute hypoxic respiratory failure secondary to Covid 19 * Acute exacerbation of congestive heart failure on chronic systolic dysfunction * Acute renal failure secondary to acute tubular necrosis * E. coli urinary tract infection * Diabetes mellitus type 2 * Hypertension * Parkinson's disease * Chronic atrial fibrillation * Appreciate input from cardiology, nephrology, infectious disease * Continue current treatment with breathing treatment, IV antibiotic * In regards to urinary tract infection continue IV Rocephin infectious disease following * Past of diabetes mellitus Accu-Cheks before meals at bedtime continue patient on correctional insulin monitor for hypoglycemia * In regards to Parkinson continue patient on Sinemet * In regards to atrial fibrillation, continue Eliquis, continue metoprolol
[2023-09-20] MEDS: NYSTATIN 100,000 UNIT/ML SUSP 500,000 UNIT/5 ML CUP PO SCH (13:35)
--- NOTE | 2023-09-20 15:11 | P.PN ---
Subjective Progress Note Date: 09/18/23 Principal diagnosis: Reason for follow-up is COVID-19 and pneumonia Patient is a 78-year-old female with a past medical history significant for diabetes mellitus hypertension hyperlipidemia heart failure patient was brought to the hospital complaining of worsening cough and congestion, patient did tested positive for COVID-19 chest x-ray no acute cardiopulmonary disease process. On today's evaluation there is 09/18/2023, the patient remains to be afebrile, the patient is breathing comfortably on 2 L nasal cannula oxygen however still complaining of some shortness of breath, the patient denies chest pain patient did have a cough but not bringing up any sputum, patient denies any nausea/vomiting abdominal pain or diarrhea Patient did have a white count of 11.72 creatinine is 1.7 procalcitonin 0.10, urine culture with low colony count of ESBL E. coli Objective - Vital Signs Vital signs: Vital Signs Temp 97.8 F 09/18/23 18:40 Pulse 80 09/18/23 18:40 Resp 16 09/18/23 18:40 BP 150/74 09/18/23 18:40 Pulse Ox 96 09/18/23 18:40 FiO2 Intake & Output 09/18/23 09/18/23 09/19/23 06:59 18:59 06:59 Intake Total 354 Balance 354 Intake: Oral 354 Other: Voiding Method Bedpan Bedpan Diaper # Voids 2 3 - Exam GENERAL DESCRIPTION: An elderly female lying in bed in no distress RESPIRATORY SYSTEM: Unlabored breathing , decreased breath sounds at bases HEART: S1 S2 regular rate and rhythm , ABDOMEN: Soft , no tenderness EXTREMITIES: No edema feet - Labs CBC & Chem 7: 09/20/23 05:23 09/20/23 05:23 Labs: Abnormal Lab Results - Last 24 Hours (Table) 09/18/23 09/18/23 09/18/23 Range/Units 01:33 05:55 05:55 WBC 11.72 H (4.50-10.00) X 10*3/uL RBC 4.00 L (4.10-5.20) X 10*6/uL MCV 98.8 H (80.0-97.0) FL MCHC 30.9 L (32.0-37.0) g/dL MPV 9.4 L (9.5-12.2) FL Immature Gran # 0.06 H (0.00-0.04) X 10*3/uL Neutrophils # 9.47 H (1.80-7.70) X 10*3/uL Sodium 146 H (135-145) mmol/L Chloride 110 H (96-109) mmol/L BUN 31.7 H (9.0-27.0) mg/dL Creatinine 1.7 H (0.6-1.5) mg/dL Est GFR (CKD-EPI) 31 L (>=60) POC Glucose (mg/dL) 187 H (70-110) mg/dL Calcium 7.7 L (8.7-10.3) mg/dL 09/18/23 09/18/23 09/18/23 Range/Units 12:21 17:23 20:22 WBC (4.50-10.00) X 10*3/uL RBC (4.10-5.20) X 10*6/uL MCV (80.0-97.0) FL MCHC (32.0-37.0) g/dL MPV (9.5-12.2) FL Immature Gran # (0.00-0.04) X 10*3/uL Neutrophils # (1.80-7.70) X 10*3/uL Sodium (135-145) mmol/L Chloride (96-109) mmol/L BUN (9.0-27.0) mg/dL Creatinine (0.6-1.5) mg/dL Est GFR (CKD-EPI) (>=60) POC Glucose (mg/dL) 176 H 179 H 180 H (70-110) mg/dL Calcium (8.7-10.3) mg/dL Microbiology - Last 24 Hours (Table) 09/15/23 23:00 Urine Culture - Final Urine,Voided Escherichia coli 09/15/23 13:35 Blood Culture - Preliminary Blood Assessment and Plan (1) COVID-19 Current Visit: Yes Status: Acute Code(s): U07.1 - COVID-19 SNOMED Code(s): 811006920 (2) Pneumonia Current Visit: Yes Status: Acute Code(s): J18.9 - PNEUMONIA, UNSPECIFIED ORGANISM SNOMED Code(s): 917272999 Plan: 1patient presented to hospital with weakness congested cough and this patient symptom has been going on for more than a week patient did have a no acute infiltrate on the chest x-ray and also have elevated creatinine on these factors will disqualify her for remdesivir therapy 2-patient did have a mildly positive UA may be contributing to some of her symptoms concerning for possible UTI from enteric gram-negative pathogen, urine culture not done 3-Patient to continue with the Eliquis along with zinc and ascorbic acid 4- patient urine culture did grow low colony count of ESBL E. coli the question of possible contamination or colonization Dictation was produced using [employer] dictation software. please excuse any grammatical, word or spelling errors. Time with Patient: Less than 30
--- NOTE | 2023-09-20 15:12 | P.PN ---
Subjective Progress Note Date: 09/19/23 Principal diagnosis: Reason for follow-up is COVID-19 and pneumonia Patient is a 78-year-old female with a past medical history significant for diabetes mellitus hypertension hyperlipidemia heart failure patient was brought to the hospital complaining of worsening cough and congestion, patient did tested positive for COVID-19 chest x-ray no acute cardiopulmonary disease process. On today's evaluation there is 09/19/2023, the patient continues to be afebrile patient is breathing comfortably on 2 L nasal cannula supplemental oxygen the patient denies chest pain did have occasional cough no sputum production patient denies abdominal pain no nausea no vomiting and no diarrhea has been reported, no urinary symptoms Patient did have a white count of 12.61 creatinine is 1.7 procalcitonin 0.10, urine culture with low colony count of ESBL E. coli Objective - Vital Signs Vital signs: Vital Signs Temp 98.5 F 09/19/23 14:00 Pulse 78 09/19/23 14:00 Resp 16 09/19/23 14:00 BP 133/73 09/19/23 14:00 Pulse Ox 96 09/19/23 14:00 FiO2 Intake & Output 09/18/23 09/19/23 09/19/23 18:59 06:59 18:59 Intake Total 354 236 Balance 354 236 Intake: Oral 354 236 Other: Voiding Method Bedpan Bedpan Bedpan Diaper Diaper Diaper # Voids 3 1 1 # Bowel Movements 1 - Exam GENERAL DESCRIPTION: An elderly female lying in bed in no distress RESPIRATORY SYSTEM: Unlabored breathing , decreased breath sounds at bases HEART: S1 S2 regular rate and rhythm , ABDOMEN: Soft , no tenderness EXTREMITIES: No edema feet - Labs CBC & Chem 7: 09/20/23 05:23 09/20/23 05:23 Labs: Abnormal Lab Results - Last 24 Hours (Table) 09/18/23 09/18/23 09/19/23 Range/Units 17:23 20:22 02:10 WBC (4.50-10.00) X 10*3/uL RBC (4.10-5.20) X 10*6/uL Hgb (12.0-15.0) g/dL MCV (80.0-97.0) FL MCHC (32.0-37.0) g/dL MPV (9.5-12.2) FL Immature Gran # (0.00-0.04) X 10*3/uL Neutrophils # (1.80-7.70) X 10*3/uL Monocytes # (0.20-1.00) X 10*3/uL Chloride (96-109) mmol/L BUN (9.0-27.0) mg/dL Creatinine (0.6-1.5) mg/dL Est GFR (CKD-EPI) (>=60) Glucose (70-110) mg/dL POC Glucose (mg/dL) 179 H 180 H 120 H (70-110) mg/dL Calcium (8.7-10.3) mg/dL 09/19/23 09/19/23 09/19/23 Range/Units 07:36 07:36 12:10 WBC 12.61 H (4.50-10.00) X 10*3/uL RBC 3.87 L (4.10-5.20) X 10*6/uL Hgb 11.9 L (12.0-15.0) g/dL MCV 99.7 H (80.0-97.0) FL MCHC 30.8 L (32.0-37.0) g/dL MPV 9.4 L (9.5-12.2) FL Immature Gran # 0.07 H (0.00-0.04) X 10*3/uL Neutrophils # 10.28 H (1.80-7.70) X 10*3/uL Monocytes # 1.01 H (0.20-1.00) X 10*3/uL Chloride 110 H (96-109) mmol/L BUN 28.8 H (9.0-27.0) mg/dL Creatinine 1.7 H (0.6-1.5) mg/dL Est GFR (CKD-EPI) 31 L (>=60) Glucose 67 L (70-110) mg/dL POC Glucose (mg/dL) 172 H (70-110) mg/dL Calcium 7.6 L (8.7-10.3) mg/dL Microbiology - Last 24 Hours (Table) 09/15/23 13:35 Blood Culture - Preliminary Blood 09/15/23 23:00 Urine Culture - Final Urine,Voided Escherichia coli Assessment and Plan (1) COVID-19 Current Visit: Yes Status: Acute Code(s): U07.1 - COVID-19 SNOMED Code(s): 825136138 (2) Pneumonia Current Visit: Yes Status: Acute Code(s): J18.9 - PNEUMONIA, UNSPECIFIED ORGANISM SNOMED Code(s): 148949525 Plan: 1patient presented to hospital with weakness congested cough and this patient symptom has been going on for more than a week patient did have a no acute infiltrate on the chest x-ray and also have elevated creatinine on these factors will disqualify her for remdesivir therapy 2-patient did have a mildly positive UA may be contributing to some of her symptoms concerning for possible UTI from enteric gram-negative pathogen, urine culture not done 3-Patient to continue with the Eliquis along with zinc and ascorbic acid 4- patient urine culture did grow low colony count of ESBL E. coli the question of possible contamination or colonization, we will repeat a UA Dictation was produced using [employer] dictation software. please excuse any grammatical, word or spelling errors. Time with Patient: Less than 30
--- NOTE | 2023-09-20 15:15 | P.PN ---
Subjective Progress Note Date: 09/20/23 Principal diagnosis: Reason for follow-up is COVID-19 and pneumonia Patient is a 78-year-old female with a past medical history significant for diabetes mellitus hypertension hyperlipidemia heart failure patient was brought to the hospital complaining of worsening cough and congestion, patient did tested positive for COVID-19 chest x-ray no acute cardiopulmonary disease process. On today's evaluation there is 09/20/2023, the patient remains to be afebrile patient is breathing comfortably on 2 L nasal cannula oxygen the patient denies chest pain did have occasional cough no sputum production patient denies abdominal pain no nausea no vomiting and no diarrhea has been reported by the nursing staff patient denies any burning or discomfort with urination Patient did have a white count has normalized to 9.85 1 creatinine is 1.6 procalcitonin 0.10, urine culture with low colony count of ESBL E. coli Objective - Vital Signs Vital signs: Vital Signs Temp 98.0 F 09/20/23 08:00 Pulse 73 09/20/23 08:00 Resp 16 09/20/23 08:00 BP 147/63 09/20/23 08:00 Pulse Ox 92 L 09/20/23 08:00 FiO2 Intake & Output 09/19/23 09/20/23 09/20/23 18:59 06:59 18:59 Intake Total 236 Balance 236 Intake: Oral 236 Other: Voiding Method Bedpan Bedpan Toilet Diaper Diaper Diaper # Voids 0 2 2 # Bowel Movements 1 2 - Exam GENERAL DESCRIPTION: An elderly female lying in bed in no distress RESPIRATORY SYSTEM: Unlabored breathing , decreased breath sounds at bases HEART: S1 S2 regular rate and rhythm , ABDOMEN: Soft , no tenderness EXTREMITIES: No edema feet - Labs CBC & Chem 7: 09/20/23 05:23 09/20/23 05:23 Labs: Abnormal Lab Results - Last 24 Hours (Table) 09/19/23 09/20/23 09/20/23 Range/Units 17:14 05:23 05:23 RBC 3.84 L (4.10-5.20) X 10*6/uL Hgb 11.6 L (12.0-15.0) g/dL MCV 97.7 H (80.0-97.0) FL MCHC 30.9 L (32.0-37.0) g/dL Immature Gran # 0.05 H (0.00-0.04) X 10*3/uL BUN 28.5 H (9.0-27.0) mg/dL Creatinine 1.6 H (0.6-1.5) mg/dL Est GFR (CKD-EPI) 33 L (>=60) POC Glucose (mg/dL) 393 H (70-110) mg/dL Calcium 7.6 L (8.7-10.3) mg/dL 09/20/23 09/20/23 Range/Units 05:59 12:38 RBC (4.10-5.20) X 10*6/uL Hgb (12.0-15.0) g/dL MCV (80.0-97.0) FL MCHC (32.0-37.0) g/dL Immature Gran # (0.00-0.04) X 10*3/uL BUN (9.0-27.0) mg/dL Creatinine (0.6-1.5) mg/dL Est GFR (CKD-EPI) (>=60) POC Glucose (mg/dL) 112 H 271 H (70-110) mg/dL Calcium (8.7-10.3) mg/dL Assessment and Plan (1) COVID-19 Current Visit: Yes Status: Acute Code(s): U07.1 - COVID-19 SNOMED Code(s): 042853230 (2) Pneumonia Current Visit: Yes Status: Acute Code(s): J18.9 - PNEUMONIA, UNSPECIFIED ORGANISM SNOMED Code(s): 705229107 Plan: 1patient presented to hospital with weakness congested cough and this patient symptom has been going on for more than a week patient did have a no acute infiltrate on the chest x-ray and also have elevated creatinine on these factors will disqualify her for remdesivir therapy 2-patient did have a mildly positive UA may be contributing to some of her symptoms concerning for possible UTI from enteric gram-negative pathogen, urine culture not done 3-Patient to continue with the Eliquis along with zinc and ascorbic acid 4- patient urine culture did grow low colony count of ESBL E. coli the question of possible contamination or colonization as the patient did not have any urinary burning or discomfort conformed to the nursing staff clean-catch repeat UA has been requested again Dictation was produced using [employer] software. please excuse any grammatical, word or spelling errors. Time with Patient: Less than 30
[2023-09-20 17:40] LABS: Glucose,Whole Blood 188 mg/dL (70-110)
[2023-09-20 22:14] LABS: Glucose,Whole Blood 195 mg/dL (70-110)
[2023-09-21 03:08] LABS: Appearance,Urine Cloudy (Clear); Bacteria,Urine Rare /hpf; Bilirubin,Urine Negative (Negative); Blood,Urine Negative (Negative); Budding Yeast,Urine Occasional /hpf; Color,Urine Light Yellow; Glucose,Urine (UA) Negative (Negative); Hyaline Casts,Urine 16 /lpf (0-2); Ketones,Urine Negative (Negative); Leukocyte Esterase,Urine Large (Negative); Mucus,Urine Rare /hpf; Nitrite,Urine Negative (Negative); Protein,Urine Trace (Negative); RBC,Urine 5 /hpf (0-5); Specific Gravity,Urine 1.019 (1.001-1.035); Squamous Epithelial Cell,Urine 15 /hpf (0-4); Urobilinogen,Urine <2.0 mg/dL (<2.0); WBC,Urine 35 /hpf (0-5)
[2023-09-21 03:30] LABS: Glucose,Whole Blood 150 mg/dL (70-110)
[2023-09-21 06:06] LABS: Glucose,Whole Blood 57 mg/dL (70-110)
[2023-09-21 06:22] LABS: Glucose,Whole Blood 64 mg/dL (70-110)
[2023-09-21 06:49] LABS: Glucose,Whole Blood 90 mg/dL (70-110)
[2023-09-21 11:01] LABS: HCT 38.8 % (37.2-46.3); HGB 11.8 g/dL (12.0-15.0); MCH 30.2 pg (27.0-32.0); MCHC 30.4 g/dL (32.0-37.0); MCV 99.2 FL (80.0-97.0); Mean Platelet Volume 9.9 FL (9.5-12.2); NRBC Per 100 WBC 0 X 10*3/uL (0.00-0.01); Platelet Count 224 X 10*3/uL (140-440); RBC 3.91 X 10*6/uL (4.10-5.20); RDW 14.4 % (11.5-14.5); WBC 10.51 X 10*3/uL (4.50-10.00)
[2023-09-21] MEDS: INSULIN DETEMIR (LEVEMIR) 100 UNIT/ML SYR SQ SCH ×2 (11:02→20:51)
--- NOTE | 2023-09-21 11:44 | P.PN ---
Subjective Patient is seen in follow-up for chronic kidney disease. Renal function stable as of yesterday. Has been voiding. Denies chest pain or shortness of breath. Vital signs are stable. General: No acute distress. HEENT: Head exam is unremarkable. On nasal cannula. LUNGS: No audible rhonchi or wheezes. HEART: Rate and Rhythm are regular. ABDOMEN: Nontender. EXTREMITITES: 1+ edema. Objective - Vital Signs Vital signs: Vital Signs Temp 98.0 F 09/21/23 08:00 Pulse 80 09/21/23 08:00 Resp 18 09/21/23 08:00 BP 148/50 09/21/23 08:00 Pulse Ox 97 09/21/23 08:17 FiO2 Intake & Output 09/20/23 09/21/23 09/21/23 18:59 06:59 18:59 Intake Total 59 118 Balance 59 118 Intake: Oral 59 118 Other: Voiding Method Toilet Toilet Diaper Diaper # Voids 1 2 1 # Bowel Movements 1 1 - Labs CBC & Chem 7: 09/21/23 06:40 09/20/23 05:23 Labs: Abnormal Lab Results - Last 24 Hours (Table) 09/20/23 09/20/23 09/20/23 Range/Units 12:38 17:39 22:06 WBC (4.50-10.00) X 10*3/uL RBC (4.10-5.20) X 10*6/uL Hgb (12.0-15.0) g/dL MCV (80.0-97.0) FL MCHC (32.0-37.0) g/dL POC Glucose (mg/dL) 271 H 188 H (70-110) mg/dL Urine Appearance Cloudy H (Clear) Urine Protein Trace H (Negative) Ur Leukocyte Esterase Large H (Negative) Urine WBC 35 H (0-5) /hpf Urine WBC Clumps Rare H (None) /hpf Ur Squamous Epith Cells 15 H (0-4) /hpf Urine Bacteria Rare H (None) /hpf Hyaline Casts 16 H (0-2) /lpf Urine Mucus Rare H (None) /hpf Urine Yeast (Budding) Occasional H (None) /hpf 09/20/23 09/21/23 09/21/23 Range/Units 22:12 03:29 06:05 WBC (4.50-10.00) X 10*3/uL RBC (4.10-5.20) X 10*6/uL Hgb (12.0-15.0) g/dL MCV (80.0-97.0) FL MCHC (32.0-37.0) g/dL POC Glucose (mg/dL) 195 H 150 H 57 L (70-110) mg/dL Urine Appearance (Clear) Urine Protein (Negative) Ur Leukocyte Esterase (Negative) Urine WBC (0-5) /hpf Urine WBC Clumps (None) /hpf Ur Squamous Epith Cells (0-4) /hpf Urine Bacteria (None) /hpf Hyaline Casts (0-2) /lpf Urine Mucus (None) /hpf Urine Yeast (Budding) (None) /hpf 09/21/23 09/21/23 Range/Units 06:21 06:40 WBC 10.51 H (4.50-10.00) X 10*3/uL RBC 3.91 L (4.10-5.20) X 10*6/uL Hgb 11.8 L (12.0-15.0) g/dL MCV 99.2 H (80.0-97.0) FL MCHC 30.4 L (32.0-37.0) g/dL POC Glucose (mg/dL) 64 L (70-110) mg/dL Urine Appearance (Clear) Urine Protein (Negative) Ur Leukocyte Esterase (Negative) Urine WBC (0-5) /hpf Urine WBC Clumps (None) /hpf Ur Squamous Epith Cells (0-4) /hpf Urine Bacteria (None) /hpf Hyaline Casts (0-2) /lpf Urine Mucus (None) /hpf Urine Yeast (Budding) (None) /hpf Microbiology - Last 24 Hours (Table) 09/15/23 13:35 Blood Culture - Final Blood Assessment and Plan Plan: Assessment: 1. Chronic kidney disease stage IV secondary to nephrosclerosis with baseline creatinine 1.7-2. GFR near baseline. 2. Covid-19 pneumonia. On nasal cannula. 3. Hypertension with chronic kidney disease. Stable. 4. E. coli UTI. On antibiotics. 5. Diabetes mellitus. Plan: Encourage oral intake. Avoid nephrotoxins. Maintain Bumex. 40 mg IV Lasix one time dose this afternoon.
[2023-09-21 12:12] LABS: Glucose,Whole Blood 192 mg/dL (70-110)
--- NOTE | 2023-09-21 12:53 | P.PN ---
Subjective Progress Note Date: 09/21/23 * 78-year-old female with a past medical history significant for diabetes mellitus hypertension hyperlipidemia heart failure patient was brought to the hospital complaining of worsening cough and congestion patient mention her got sick about 2 weeks ago was subsequently improved however the patient started getting sick more than a week ago symptom has been mostly cough and congestion cough has been mild to moderate intensity with occasional clear sputum no hemoptysis denies any chronic chest pain denies any nausea or vomiting no abdominal pain or diarrhea did have decreased appetite and decreased oral intake patient on presentation to the hospital was afebrile and no fever has been recorded subsequently patient did have mild hypoxemia with O2 sats of 90% on room air currently 94% on 2 L nasal cannula oxygen patient did have a normal white count BUN/creatinine has been elevated lactic acid was elevated liver enzymes are normal urine was positive tested positive for COVID-19 and a procalcitonin 0.10 patient did have a chest x-ray no acute cardiopulmonary disease process infectious disease was consulted for further management and need for remdesivir * Patient was seen by nephrology, infectious disease, cardiology. * During the hospital stay patient was treated with IV antibiotic treated for urinary tract infection, * Patient was also noted to have acute exacerbation of CHF * 09/20/2023 DR MACK Assumed care: Patient seen and evaluated bedside, patient does complain of shortness of breath and generalized weakness, patient does have cough he did continue on current regimen including albuterol, patient also receiving Mucinex. We'll follow-up on CBC and basic metabolic panel with potential discharge to subacute rehab patient did complain of one episode of streak of hemoptysis * 09/21/2023: Patient seen and evaluated bedside, patient refusing to go to rehab. Continue patient on IV Rocephin potential discharge home by tomorrow. Nephrology given 1 dose of Lasix will follow-up on renal function tomorrow. PHYSICAL EXAMINATION: GENERAL: The patient is alert and oriented x3, ill appearance. Nasal cannula in place HEENT: Pupils are round and equally reacting to light. EOMI Normocephalic, atraumatic. No pharyngeal erythema. No thyromegaly. CARDIOVASCULAR: S1 and S2 present. No murmurs, rubs, or gallops. PULMONARY: Decreased breath sounds bilaterally ABDOMEN: Soft, nontender, nondistended, normoactive bowel sounds. No palpable organomegaly. MUSCULOSKELETAL: No joint swelling or deformity. EXTREMITIES: No cyanosis, clubbing, or pedal edema. NEUROLOGICAL: Gross neurological examination did not reveal any focal deficits. SKIN: No rashes. Objective - Vital Signs Vital signs: Vital Signs Temp 98.0 F 09/21/23 08:00 Pulse 80 09/21/23 08:00 Resp 18 09/21/23 08:17 BP 148/50 09/21/23 08:00 Pulse Ox 97 09/21/23 08:17 FiO2 Intake & Output 09/20/23 09/21/23 09/21/23 18:59 06:59 18:59 Intake Total 59 118 Balance 59 118 Intake: Oral 59 118 Other: Voiding Method Toilet Toilet Toilet Diaper Diaper Diaper # Voids 1 2 1 # Bowel Movements 1 1 - Labs CBC & Chem 7: 09/21/23 06:40 09/20/23 05:23 Labs: Abnormal Lab Results - Last 24 Hours (Table) 09/20/23 09/20/23 09/20/23 Range/Units 17:39 22:06 22:12 WBC (4.50-10.00) X 10*3/uL RBC (4.10-5.20) X 10*6/uL Hgb (12.0-15.0) g/dL MCV (80.0-97.0) FL MCHC (32.0-37.0) g/dL POC Glucose (mg/dL) 188 H 195 H (70-110) mg/dL Urine Appearance Cloudy H (Clear) Urine Protein Trace H (Negative) Ur Leukocyte Esterase Large H (Negative) Urine WBC 35 H (0-5) /hpf Urine WBC Clumps Rare H (None) /hpf Ur Squamous Epith Cells 15 H (0-4) /hpf Urine Bacteria Rare H (None) /hpf Hyaline Casts 16 H (0-2) /lpf Urine Mucus Rare H (None) /hpf Urine Yeast (Budding) Occasional H (None) /hpf 09/21/23 09/21/23 09/21/23 Range/Units 03:29 06:05 06:21 WBC (4.50-10.00) X 10*3/uL RBC (4.10-5.20) X 10*6/uL Hgb (12.0-15.0) g/dL MCV (80.0-97.0) FL MCHC (32.0-37.0) g/dL POC Glucose (mg/dL) 150 H 57 L 64 L (70-110) mg/dL Urine Appearance (Clear) Urine Protein (Negative) Ur Leukocyte Esterase (Negative) Urine WBC (0-5) /hpf Urine WBC Clumps (None) /hpf Ur Squamous Epith Cells (0-4) /hpf Urine Bacteria (None) /hpf Hyaline Casts (0-2) /lpf Urine Mucus (None) /hpf Urine Yeast (Budding) (None) /hpf 09/21/23 09/21/23 Range/Units 06:40 12:10 WBC 10.51 H (4.50-10.00) X 10*3/uL RBC 3.91 L (4.10-5.20) X 10*6/uL Hgb 11.8 L (12.0-15.0) g/dL MCV 99.2 H (80.0-97.0) FL MCHC 30.4 L (32.0-37.0) g/dL POC Glucose (mg/dL) 192 H (70-110) mg/dL Urine Appearance (Clear) Urine Protein (Negative) Ur Leukocyte Esterase (Negative) Urine WBC (0-5) /hpf Urine WBC Clumps (None) /hpf Ur Squamous Epith Cells (0-4) /hpf Urine Bacteria (None) /hpf Hyaline Casts (0-2) /lpf Urine Mucus (None) /hpf Urine Yeast (Budding) (None) /hpf Microbiology - Last 24 Hours (Table) 09/15/23 13:35 Blood Culture - Final Blood Assessment and Plan Assessment: Assessment and plan * Acute hypoxic respiratory failure secondary to Covid 19 * Acute exacerbation of congestive heart failure on chronic systolic dysfunction * Acute renal failure secondary to acute tubular necrosis * E. coli urinary tract infection * Diabetes mellitus type 2 * Hypertension * Parkinson's disease * Chronic atrial fibrillation * Appreciate input from cardiology, nephrology, infectious disease * Continue current treatment with breathing treatment, IV antibiotic * In regards to urinary tract infection continue IV Rocephin infectious disease following * In regards to acute kidney injury, nephrology following patient is on Bumex given 1 dose of IV Lasix * Past of diabetes mellitus Accu-Cheks before meals at bedtime continue patient on correctional insulin monitor for hypoglycemia * In regards to Parkinson continue patient on Sinemet * In regards to atrial fibrillation, continue Eliquis, continue metoprolol * Patient would want to go home with home care
[2023-09-21] MEDS: FUROSEMIDE 10 MG/ML 4 ML VIAL IV ONE (12:58)
[2023-09-21] MEDS: CHLORHEXIDINE GLUCONATE 15 ML CUP MUCOUS MEM SCH (13:04)
[2023-09-21 13:51] LABS: BUN/Creat Ratio 18.11 Ratio (12.00-20.00); Blood Urea Nitrogen 32.6 mg/dL (9.0-27.0); Calcium 7.7 mg/dL (8.7-10.3); Carbon Dioxide 21.5 mmol/L (21.6-31.8); Chloride 109 mmol/L (96-109); Glucose 90 mg/dL (70-110); Sodium 144 mmol/L (135-145)
[2023-09-21 14:36] VITALS: BMI 35.5
[2023-09-21 17:29] LABS: Glucose,Whole Blood 294 mg/dL (70-110)
--- NOTE | 2023-09-21 17:42 | P.PN ---
Subjective Progress Note Date: 09/21/23 Principal diagnosis: Reason for follow-up is COVID-19 and pneumonia Patient is a 78-year-old female with a past medical history significant for diabetes mellitus hypertension hyperlipidemia heart failure patient was brought to the hospital complaining of worsening cough and congestion, patient did tested positive for COVID-19 chest x-ray no acute cardiopulmonary disease process. On today's evaluation there is 09/21/2023, the patient continues to be afebrile patient is breathing comfortably on 2 L nasal cannula supplemental oxygen, patient denies any chest pain did have occasional dry cough no nausea no vomiting and no diarrhea has been reported by the nursing staff patient denies any urinary symptoms Patient did have a white count 10.51 creatinine is 1.8 procalcitonin 0.10, urine culture with low colony count of ESBL E. coli Objective - Vital Signs Vital signs: Vital Signs Temp 98.0 F 09/21/23 08:00 Pulse 80 09/21/23 08:00 Resp 18 09/21/23 08:17 BP 148/50 09/21/23 08:00 Pulse Ox 97 09/21/23 08:17 FiO2 Intake & Output 09/20/23 09/21/23 09/21/23 18:59 06:59 18:59 Intake Total 59 118 Balance 59 118 Intake: Oral 59 118 Other: Voiding Method Toilet Toilet Toilet Diaper Diaper Diaper # Voids 1 2 1 # Bowel Movements 1 1 - Exam GENERAL DESCRIPTION: An elderly female lying in bed in no distress RESPIRATORY SYSTEM: Unlabored breathing , decreased breath sounds at bases HEART: S1 S2 regular rate and rhythm , ABDOMEN: Soft , no tenderness EXTREMITIES: No edema feet - Labs CBC & Chem 7: 09/21/23 06:40 09/21/23 06:40 Labs: Abnormal Lab Results - Last 24 Hours (Table) 09/20/23 09/20/23 09/20/23 Range/Units 12:38 17:39 22:06 WBC (4.50-10.00) X 10*3/uL RBC (4.10-5.20) X 10*6/uL Hgb (12.0-15.0) g/dL MCV (80.0-97.0) FL MCHC (32.0-37.0) g/dL POC Glucose (mg/dL) 271 H 188 H (70-110) mg/dL Urine Appearance Cloudy H (Clear) Urine Protein Trace H (Negative) Ur Leukocyte Esterase Large H (Negative) Urine WBC 35 H (0-5) /hpf Urine WBC Clumps Rare H (None) /hpf Ur Squamous Epith Cells 15 H (0-4) /hpf Urine Bacteria Rare H (None) /hpf Hyaline Casts 16 H (0-2) /lpf Urine Mucus Rare H (None) /hpf Urine Yeast (Budding) Occasional H (None) /hpf 09/20/23 09/21/23 09/21/23 Range/Units 22:12 03:29 06:05 WBC (4.50-10.00) X 10*3/uL RBC (4.10-5.20) X 10*6/uL Hgb (12.0-15.0) g/dL MCV (80.0-97.0) FL MCHC (32.0-37.0) g/dL POC Glucose (mg/dL) 195 H 150 H 57 L (70-110) mg/dL Urine Appearance (Clear) Urine Protein (Negative) Ur Leukocyte Esterase (Negative) Urine WBC (0-5) /hpf Urine WBC Clumps (None) /hpf Ur Squamous Epith Cells (0-4) /hpf Urine Bacteria (None) /hpf Hyaline Casts (0-2) /lpf Urine Mucus (None) /hpf Urine Yeast (Budding) (None) /hpf 09/21/23 09/21/23 09/21/23 Range/Units 06:21 06:40 12:10 WBC 10.51 H (4.50-10.00) X 10*3/uL RBC 3.91 L (4.10-5.20) X 10*6/uL Hgb 11.8 L (12.0-15.0) g/dL MCV 99.2 H (80.0-97.0) FL MCHC 30.4 L (32.0-37.0) g/dL POC Glucose (mg/dL) 64 L 192 H (70-110) mg/dL Urine Appearance (Clear) Urine Protein (Negative) Ur Leukocyte Esterase (Negative) Urine WBC (0-5) /hpf Urine WBC Clumps (None) /hpf Ur Squamous Epith Cells (0-4) /hpf Urine Bacteria (None) /hpf Hyaline Casts (0-2) /lpf Urine Mucus (None) /hpf Urine Yeast (Budding) (None) /hpf Microbiology - Last 24 Hours (Table) 09/15/23 13:35 Blood Culture - Final Blood Assessment and Plan (1) COVID-19 Current Visit: Yes Status: Acute Code(s): U07.1 - COVID-19 SNOMED Code(s): 785033286 (2) Pneumonia Current Visit: Yes Status: Acute Code(s): J18.9 - PNEUMONIA, UNSPECIFIED ORGANISM SNOMED Code(s): 572911176 Plan: 1patient presented to hospital with weakness congested cough and this patient symptom has been going on for more than a week patient did have a no acute infiltrate on the chest x-ray and also have elevated creatinine on these factors will disqualify her for remdesivir therapy 2-patient did have a mildly positive UA may be contributing to some of her symptoms concerning for possible UTI from enteric gram-negative pathogen, urine culture not done 3-Patient to continue with the Eliquis along with zinc and ascorbic acid 4- patient urine culture did grow low colony count of ESBL E. coli the question of possible contamination or asymptomatic bacteriuria as the patient is denying any urinary symptoms we will hold on adding treatment specific for the positive urine culture Dictation was produced using [employer] dictation software. please excuse any grammatical, word or spelling errors. Time with Patient: Less than 30
[2023-09-21 20:54] LABS: Glucose,Whole Blood 177 mg/dL (70-110)
[2023-09-22 02:29] LABS: Glucose,Whole Blood 126 mg/dL (70-110)
[2023-09-22 05:49] LABS: Glucose,Whole Blood 127 mg/dL (70-110)
--- NOTE | 2023-09-22 08:46 | XR ---
EXAMINATION TYPE: XR chest 1V portable DATE OF EXAM: 09/22/2023 COMPARISON: 09/18/2023 HISTORY: Cough TECHNIQUE: Single frontal view of the chest is obtained. FINDINGS: Limited inspiration with right basilar basilar subsegmental consolidation. No pneumothorax . No failure. Heart is enlarged. Arthropathy of the shoulders, degenerative change of the spine and d iffuse osteopenia. IMPRESSION: Bibasilar atelectasis or early infiltrate stable.
[2023-09-22 08:55] LABS: HCT 35.7 % (37.2-46.3); MCH 30.1 pg (27.0-32.0); MCHC 30.8 g/dL (32.0-37.0); MCV 97.5 FL (80.0-97.0); Mean Platelet Volume 9.3 FL (9.5-12.2); NRBC Per 100 WBC 0 X 10*3/uL (0.00-0.01); Platelet Count 245 X 10*3/uL (140-440); RBC 3.66 X 10*6/uL (4.10-5.20); RDW 14.2 % (11.5-14.5); WBC 8.49 X 10*3/uL (4.50-10.00)
[2023-09-22 10:16] LABS: BUN/Creat Ratio 16.53 Ratio (12.00-20.00); Blood Urea Nitrogen 28.1 mg/dL (9.0-27.0); Calcium 7.7 mg/dL (8.7-10.3); Carbon Dioxide 25.4 mmol/L (21.6-31.8); Chloride 106 mmol/L (96-109); Glucose 133 mg/dL (70-110); Potassium 4.2 mmol/L (3.5-5.5); Sodium 142 mmol/L (135-145)
[2023-09-22 12:33] LABS: Glucose,Whole Blood 237 mg/dL (70-110)
--- NOTE | 2023-09-22 13:11 | P.PN ---
Subjective Patient is seen in follow-up for chronic kidney disease. Renal function stable. Has been voiding. Denies chest pain or shortness of breath. Vital signs are stable. General: No acute distress. HEENT: Head exam is unremarkable. On nasal cannula. LUNGS: No audible rhonchi or wheezes. HEART: Rate and Rhythm are regular. ABDOMEN: Nontender. EXTREMITITES: 1+ edema. Objective - Vital Signs Vital signs: Vital Signs Temp 98.0 F 09/22/23 08:00 Pulse 75 09/22/23 08:00 Resp 20 09/22/23 08:00 BP 160/73 09/22/23 08:00 Pulse Ox 98 09/22/23 08:00 FiO2 Intake & Output 09/21/23 09/22/23 09/22/23 18:59 06:59 18:59 Intake Total 358 Balance 358 Weight 99.79 kg Intake: Oral 358 Other: Voiding Method Toilet Bedside Commode Bedside Commode Diaper Diaper Diaper # Voids 1 0 # Bowel Movements 1 - Labs CBC & Chem 7: 09/22/23 05:38 09/22/23 05:38 Labs: Abnormal Lab Results - Last 24 Hours (Table) 09/21/23 09/21/23 09/21/23 Range/Units 06:40 17:28 20:51 RBC (4.10-5.20) X 10*6/uL Hgb (12.0-15.0) g/dL Hct (37.2-46.3) % MCV (80.0-97.0) FL MCHC (32.0-37.0) g/dL MPV (9.5-12.2) FL Carbon Dioxide 21.5 L (21.6-31.8) mmol/L Anion Gap 13.50 H (4.00-12.00) mmol/L BUN 32.6 H (9.0-27.0) mg/dL Creatinine 1.8 H (0.6-1.5) mg/dL Est GFR (CKD-EPI) 29 L (>=60) Glucose (70-110) mg/dL POC Glucose (mg/dL) 294 H 177 H (70-110) mg/dL Calcium 7.7 L (8.7-10.3) mg/dL C-Reactive Protein 7.00 H (0.00-0.80) mg/dL Procalcitonin (0.02-0.09) ng/mL 09/22/23 09/22/23 09/22/23 Range/Units 02:28 05:38 05:38 RBC 3.66 L (4.10-5.20) X 10*6/uL Hgb 11.0 L (12.0-15.0) g/dL Hct 35.7 L (37.2-46.3) % MCV 97.5 H (80.0-97.0) FL MCHC 30.8 L (32.0-37.0) g/dL MPV 9.3 L (9.5-12.2) FL Carbon Dioxide (21.6-31.8) mmol/L Anion Gap (4.00-12.00) mmol/L BUN (9.0-27.0) mg/dL Creatinine (0.6-1.5) mg/dL Est GFR (CKD-EPI) (>=60) Glucose (70-110) mg/dL POC Glucose (mg/dL) 126 H (70-110) mg/dL Calcium (8.7-10.3) mg/dL C-Reactive Protein (0.00-0.80) mg/dL Procalcitonin 0.17 H (0.02-0.09) ng/mL 09/22/23 09/22/23 09/22/23 Range/Units 05:38 05:46 12:29 RBC (4.10-5.20) X 10*6/uL Hgb (12.0-15.0) g/dL Hct (37.2-46.3) % MCV (80.0-97.0) FL MCHC (32.0-37.0) g/dL MPV (9.5-12.2) FL Carbon Dioxide (21.6-31.8) mmol/L Anion Gap (4.00-12.00) mmol/L BUN 28.1 H (9.0-27.0) mg/dL Creatinine 1.7 H (0.6-1.5) mg/dL Est GFR (CKD-EPI) 31 L (>=60) Glucose 133 H (70-110) mg/dL POC Glucose (mg/dL) 127 H 237 H (70-110) mg/dL Calcium 7.7 L (8.7-10.3) mg/dL C-Reactive Protein 4.30 H (0.00-0.80) mg/dL Procalcitonin (0.02-0.09) ng/mL Assessment and Plan Plan: Assessment: 1. Chronic kidney disease stage IV secondary to nephrosclerosis with baseline creatinine 1.7-2. GFR near baseline. 2. Covid-19 pneumonia. On nasal cannula. 3. Hypertension with chronic kidney disease. Stable. 4. E. coli UTI. On antibiotics. 5. Diabetes mellitus. Plan: Encourage oral intake. Avoid nephrotoxins. Maintain Bumex. Repeat BMP and magnesium level 2-3 days postdischarge. Follow up outpatient 1 week.
--- NOTE | 2023-09-22 13:18 | P.DS ---
Providers Date of admission: 09/14/23 11:13 Expected date of discharge: 09/22/23 Attending physician: Evelio Duckworth Consults: 09/14/23 11:14 Consult Physician Routine Consulting Provider: Johan Gunderson Consult Reason/Comments: chf Do you want consulting provider notified?: Yes 09/14/23 11:36 Consult Physician Urgent Consulting Provider: Laurence Segura Consult Reason/Comments: covid, remdesivir??? Do you want consulting provider notified?: Yes 09/16/23 14:10 Consult Physician Routine Consulting Provider: Delia Ball Consult Reason/Comments: arf Do you want consulting provider notified?: Yes Primary care physician: Lemuel Shattuck Hospital Course: * 78-year-old female with a past medical history significant for diabetes mellitus hypertension hyperlipidemia heart failure patient was brought to the hospital complaining of worsening cough and congestion patient mention her got sick about 2 weeks ago was subsequently improved however the patient started getting sick more than a week ago symptom has been mostly cough and congestion cough has been mild to moderate intensity with occasional clear sputum no hemoptysis denies any chronic chest pain denies any nausea or vomiting no abdominal pain or diarrhea did have decreased appetite and decreased oral intake patient on presentation to the hospital was afebrile and no fever has been recorded subsequently patient did have mild hypoxemia with O2 sats of 90% on room air currently 94% on 2 L nasal cannula oxygen patient did have a normal white count BUN/creatinine has been elevated lactic acid was elevated liver enzymes are normal urine was positive tested positive for COVID-19 and a procalcitonin 0.10 patient did have a chest x-ray no acute cardiopulmonary disease process infectious disease was consulted for further management and need for remdesivir * Patient was seen by nephrology, infectious disease, cardiology. * During the hospital stay patient was treated with IV antibiotic treated for urinary tract infection, * Patient was also noted to have acute exacerbation of CHF * 09/20/2023 DR MACK Assumed care: Patient seen and evaluated bedside, patient does complain of shortness of breath and generalized weakness, patient does have cough he did continue on current regimen including albuterol, patient also receiving Mucinex. We'll follow-up on CBC and basic metabolic panel with potential discharge to subacute rehab patient did complain of one episode of streak of hemoptysis * 09/21/2023: Patient seen and evaluated bedside, patient refusing to go to rehab. Continue patient on IV Rocephin potential discharge home by tomorrow. Nephrology given 1 dose of Lasix will follow-up on renal function tomorrow. * 09/22/2023: Patient seen and evaluated bedside, patient continues to refuse to go to rehab. Renal function reviewed, nephrology cleared for discharge continue patient on Bumex. Patient will require oxygen for home prescription provided. PHYSICAL EXAMINATION: GENERAL: The patient is alert and oriented x3, chronic ill appearance. Nasal cannula in place HEENT: Pupils are round and equally reacting to light. EOMI Normocephalic, atraumatic. No pharyngeal erythema. No thyromegaly. CARDIOVASCULAR: S1 and S2 present. No murmurs, rubs, or gallops. PULMONARY: Improved breath sounds bilaterally ABDOMEN: Soft, nontender, nondistended, normoactive bowel sounds. No palpable organomegaly. MUSCULOSKELETAL: No joint swelling or deformity. EXTREMITIES: Trace lower extremity edema noted NEUROLOGICAL: Gross neurological examination did not reveal any focal deficits. SKIN: No rashes. Assessment: Assessment and plan * Acute hypoxic respiratory failure secondary to Covid 19 * Acute exacerbation of congestive heart failure on chronic systolic dysfunction * Acute renal failure secondary to acute tubular necrosis * E. coli urinary tract infection * Diabetes mellitus type 2 * Hypertension * Parkinson's disease * Chronic atrial fibrillation * Appreciate input from cardiology, nephrology, infectious disease * In regards to E. coli UTI patient appropriately treated with antibiotics completed course of Rocephin * In regards to urinary tract infection , completed Rocephin infectious disease following * In regards to acute kidney injury, nephrology following patient is on Bumex given 1 dose of IV Lasix, discharge on 1 mg of Bumex * Past of diabetes mellitus Accu-Cheks before meals at bedtime , continue home regimen of Lantus and NovoLog * In regards to Parkinson continue patient on Sinemet * In regards to atrial fibrillation, continue Eliquis, continue metoprolol, amiodarone prescription provided * Patient would want to go home with home care>> refusing rehab she continues to remain high risk for readmission * Patient understands she has a high fall risk, she has medical decision-making capacity however she would still want to go to home with home care Patient Condition at Discharge: Fair Plan - Discharge Summary Discharge Rx Participant: Yes New Discharge Prescriptions: New Aspirin 81 mg PO DAILY 30 Days #30 tab Bumetanide [BUMEX] 1 mg PO DAILY 30 Days #30 tab amLODIPine [Norvasc] 10 mg PO DAILY 30 Days #30 tab Albuterol Inhaler [Ventolin Hfa Inhaler] 2 puff INHALATION Q6H PRN 30 Days #1 each PRN Reason: Shortness Of Breath Amiodarone [Cordarone] 200 mg PO BID 30 Days #60 tab Losartan [Cozaar] 12.5 mg PO DAILY 30 Days #15 tab Tamsulosin [Flomax] 0.4 mg PO PC-BRKFST 30 Days #30 cap guaiFENesin [Mucinex] 600 mg PO Q12HR 5 Days #10 tab Continue Simvastatin [Zocor] 20 mg PO HS Primidone 75 mg PO BID Escitalopram Oxalate [Lexapro] 10 mg PO DAILY Ferrous Sulfate [Iron (65 MG Elemental)] 325 mg PO W/SUPPER busPIRone HCl [Buspar] 5 mg PO DAILY Potassium Chloride [Klor-Con M20] 20 meq PO DAILY Bethanechol Chloride [Urecholine] 5 mg PO DAILY allopurinoL [Zyloprim] 300 mg PO DAILY Apixaban [Eliquis] 5 mg PO BID tab Metoprolol Succinate (ER) [Toprol XL] 25 mg PO BID tab Insulin Lispro [humaLOG Kwikpen] 16 units SQ TID Carbidopa-Levodopa 25-100 mg [Sinemet 25-100 mg] 1 tab PO TID Insulin Glargine,Hum.rec.anlog [Lantus Solostar Pen] 40 units SQ DAILY Insulin Glargine,Hum.rec.anlog [Lantus Solostar Pen] 20 units SQ HS Oxybutynin Xl [Ditropan XL] 5 mg PO TID Levothyroxine Sodium [Synthroid] 25 mcg PO DAILY Estrogens, Conjugated Cream [Premarin Vaginal Cream] 1 applicator VAGINAL DAILY PRN PRN Reason: hormone replacement Discontinued Levofloxacin [Levaquin] 500 mg PO DAILY Furosemide [Lasix] 20 mg PO DAILY Losartan [Cozaar] 50 mg PO DAILY Discharge Medication List Simvastatin [Zocor] 20 mg PO HS 07/18/14 [History] Ferrous Sulfate [Iron (65 MG Elemental)] 325 mg PO W/SUPPER 11/10/21 [History] Bethanechol Chloride [Urecholine] 5 mg PO DAILY 07/23/22 [History] Potassium Chloride [Klor-Con M20] 20 meq PO DAILY 07/23/22 [History] Primidone 75 mg PO BID 07/23/22 [History] allopurinoL [Zyloprim] 300 mg PO DAILY 07/23/22 [History] busPIRone HCl [Buspar] 5 mg PO DAILY 07/23/22 [History] Apixaban [Eliquis] 5 mg PO BID tab 08/04/22 [Rx] Metoprolol Succinate (ER) [Toprol XL] 25 mg PO BID tab 08/04/22 [Rx] Carbidopa-Levodopa 25-100 mg [Sinemet 25-100 mg] 1 tab PO TID 09/14/23 [History] Escitalopram Oxalate [Lexapro] 10 mg PO DAILY 09/14/23 [History] Estrogens, Conjugated Cream [Premarin Vaginal Cream] 1 applicator VAGINAL DAILY PRN 09/14/23 [History] Insulin Glargine,Hum.rec.anlog [Lantus Solostar Pen] 20 units SQ HS 09/14/23 [History] Insulin Glargine,Hum.rec.anlog [Lantus Solostar Pen] 40 units SQ DAILY 09/14/23 [History] Insulin Lispro [humaLOG Kwikpen] 16 units SQ TID 09/14/23 [History] Levothyroxine Sodium [Synthroid] 25 mcg PO DAILY 09/14/23 [History] Oxybutynin Xl [Ditropan XL] 5 mg PO TID 09/14/23 [History] Albuterol Inhaler [Ventolin Hfa Inhaler] 2 puff INHALATION Q6H PRN 30 Days #1 each 09/22/23 [Rx] Amiodarone [Cordarone] 200 mg PO BID 30 Days #60 tab 09/22/23 [Rx] Aspirin 81 mg PO DAILY 30 Days #30 tab 09/22/23 [Rx] Bumetanide [BUMEX] 1 mg PO DAILY 30 Days #30 tab 09/22/23 [Rx] Losartan [Cozaar] 12.5 mg PO DAILY 30 Days #15 tab 09/22/23 [Rx] Tamsulosin [Flomax] 0.4 mg PO PC-BRKFST 30 Days #30 cap 09/22/23 [Rx] amLODIPine [Norvasc] 10 mg PO DAILY 30 Days #30 tab 09/22/23 [Rx] guaiFENesin [Mucinex] 600 mg PO Q12HR 5 Days #10 tab 09/22/23 [Rx] Follow up Appointment(s)/Referral(s): [facility], [NON-STAFF] - As Needed ([facility] will call you to ar range home care visits) Alberto Lehman DO [Primary Care Provider] - 1-2 days Discharge Disposition: HOME WITH HOME HEALTH SERVICES
--- NOTE | 2023-09-22 14:25 | P.PN ---
Subjective Progress Note Date: 09/22/23 Principal diagnosis: Reason for follow-up is COVID-19 and pneumonia Patient is a 78-year-old female with a past medical history significant for diabetes mellitus hypertension hyperlipidemia heart failure patient was brought to the hospital complaining of worsening cough and congestion, patient did tested positive for COVID-19 chest x-ray no acute cardiopulmonary disease process. On today's evaluation there is 09/22/2023 the patient denies having any fever or any chills, the patient is breathing comfortably on 2 L nasal cannula oxygen, patient denies chest pain cough is significantly decreased in intensity, the bed denies having any abdominal pain no nausea vomiting and no diarrhea Patient did have a white count 8.49 creatinine is 1.7, urine culture with low co lony count of ESBL E. coli Objective - Vital Signs Vital signs: Vital Signs Temp 98.0 F 09/22/23 08:00 Pulse 75 09/22/23 08:00 Resp 20 09/22/23 08:00 BP 160/73 09/22/23 08:00 Pulse Ox 98 09/22/23 08:00 FiO2 Intake & Output 09/21/23 09/22/23 09/22/23 18:59 06:59 18:59 Intake Total 358 Balance 358 Weight 99.79 kg Intake: Oral 358 Other: Voiding Method Toilet Bedside Commode Bedside Commode Diaper Diaper Diaper # Voids 1 0 # Bowel Movements 1 - Exam GENERAL DESCRIPTION: An elderly female lying in bed in no distress RESPIRATORY SYSTEM: Unlabored breathing , decreased breath sounds at bases HEART: S1 S2 regular rate and rhythm , ABDOMEN: Soft , no tenderness EXTREMITIES: No edema feet - Labs CBC & Chem 7: 09/22/23 05:38 09/22/23 05:38 Labs: Abnormal Lab Results - Last 24 Hours (Table) 09/21/23 09/21/23 09/21/23 Range/Units 06:40 17:28 20:51 RBC (4.10-5.20) X 10*6/uL Hgb (12.0-15.0) g/dL Hct (37.2-46.3) % MCV (80.0-97.0) FL MCHC (32.0-37.0) g/dL MPV (9.5-12.2) FL Carbon Dioxide 21.5 L (21.6-31.8) mmol/L Anion Gap 13.50 H (4.00-12.00) mmol/L BUN 32.6 H (9.0-27.0) mg/dL Creatinine 1.8 H (0.6-1.5) mg/dL Est GFR (CKD-EPI) 29 L (>=60) Glucose (70-110) mg/dL POC Glucose (mg/dL) 294 H 177 H (70-110) mg/dL Calcium 7.7 L (8.7-10.3) mg/dL C-Reactive Protein 7.00 H (0.00-0.80) mg/dL Procalcitonin (0.02-0.09) ng/mL 09/22/23 09/22/23 09/22/23 Range/Units 02:28 05:38 05:38 RBC 3.66 L (4.10-5.20) X 10*6/uL Hgb 11.0 L (12.0-15.0) g/dL Hct 35.7 L (37.2-46.3) % MCV 97.5 H (80.0-97.0) FL MCHC 30.8 L (32.0-37.0) g/dL MPV 9.3 L (9.5-12.2) FL Carbon Dioxide (21.6-31.8) mmol/L Anion Gap (4.00-12.00) mmol/L BUN (9.0-27.0) mg/dL Creatinine (0.6-1.5) mg/dL Est GFR (CKD-EPI) (>=60) Glucose (70-110) mg/dL POC Glucose (mg/dL) 126 H (70-110) mg/dL Calcium (8.7-10.3) mg/dL C-Reactive Protein (0.00-0.80) mg/dL Procalcitonin 0.17 H (0.02-0.09) ng/mL 09/22/23 09/22/23 09/22/23 Range/Units 05:38 05:46 12:29 RBC (4.10-5.20) X 10*6/uL Hgb (12.0-15.0) g/dL Hct (37.2-46.3) % MCV (80.0-97.0) FL MCHC (32.0-37.0) g/dL MPV (9.5-12.2) FL Carbon Dioxide (21.6-31.8) mmol/L Anion Gap (4.00-12.00) mmol/L BUN 28.1 H (9.0-27.0) mg/dL Creatinine 1.7 H (0.6-1.5) mg/dL Est GFR (CKD-EPI) 31 L (>=60) Glucose 133 H (70-110) mg/dL POC Glucose (mg/dL) 127 H 237 H (70-110) mg/dL Calcium 7.7 L (8.7-10.3) mg/dL C-Reactive Protein 4.30 H (0.00-0.80) mg/dL Procalcitonin (0.02-0.09) ng/mL Assessment and Plan (1) COVID-19 Current Visit: Yes Status: Acute Code(s): U07.1 - COVID-19 SNOMED Code(s): 625976361 (2) Pneumonia Current Visit: Yes Status: Acute Code(s): J18.9 - PNEUMONIA, UNSPECIFIED ORGANISM SNOMED Code(s): 106813856 Plan: 1patient presented to hospital with weakness congested cough and this patient symptom has been going on for more than a week patient did have a no acute infiltrate on the chest x-ray and also have elevated creatinine, patient was treated with supportive treatment and did have improvement in her respiratory status 2-patient did have a mildly positive UA however the patient did not have any urinary symptoms urine culture has been finalized with ESBL E. coli low colony count more likely asymptomatic bacteriuria and does not need any antibiotic therapy for it 3-Patient did have a possible component of pneumonia community-acquired for the patient received adequate Rocephin and can be discontinued on discharge this was discussed with the admitting team Dictation was produced using [employer] dictation software. please excuse any grammatical, word or spelling errors. Time with Patient: Less than 30
[2023-09-22 15:26] VITALS: BP 164/66; PULSE 72; RESP 16; TEMP 98.1
[2023-09-22 17:26] LABS: Glucose,Whole Blood 210 mg/dL (70-110)
--- NOTE | 2023-09-30 12:36 | CDI ---
Documentation Clarification Form Date: 09/30/2023 12:21:54 PM From: Sheela Galan Phone: Admit Date: 09/14/2023 11:13:00 AM Patient Name: Luisa Umaña Visit Number: [id number] Discharge Date: 09/22/2023 06:30:00 PM ATTENTION: The Clinical Documentation Specialists (CDI) and [facility] Coding Staff appreciate your assistance in clarifying documentation. Please respond to the clarification below the line at the bottom and electronically sign. The CDI & [facility] Coding staff will review the response and follow-up if needed. Please note: Queries are made part of the Legal Health Record. If you have any questions, please contact the author of this message via ITS. Dr. Jose Guerrero Diabetes is documented per Past Medical Hx notes. Additional specificity regarding the diabetes diagnosis is requested. History/Risk Factors: 78yo F, COVID 19 w PNA, AHRF, AESHF, ATN, DMII w CKD IV, HTN, chronic A Fib, E. coli UTI, Parkinson's disease Clinical Indicators: Glucose: 09/14 65-195 09/15 63- 195 09/16 49-247 09/17 58- 210 A1C: 7.5 Home Medications: Glipizide 10mg; Novolog 7u Sq AC, Levemir 25u Sq HS Discharge Medications: Insulin Lispro [Humalog Kwikpen] 16 units SQ TID; Insulin Glargine, Hum. rec. anlog [Lantus Solostar Pen] 40 units SQDAILY InsulinGlargine, Hum. rec. anlog [Lantus Solostar Pen] 20 units SQ HS Treatment: Accu-Cheks before meals at bedtime continue patient on correctional insulin monitor orhypoglycemia Please clarify the type of diabetes, if known: [ ] Diabetes Type 2 with hyperglycemia [y ] Present on Admission [ ] Not Present on Admission [ ] Diabetes Type 2 with hypoglycemia [ ] Present on Admission [ ] Not Present on Admission [ ] Other, please specify [ ] Unable to Determine (Template Last Revised: November 2020) MTDD
== END 2023-09-22 18:30 | disposition home health service (06) | DRG 177 ==
LOC: EC 18:33 → 6NMEDSUR 09-14 01:06 → OBSVTOIN 09-14 11:13
PROVIDERS: ADMIT Hospitalist; ATTEND Hospitalist
PROC: 8E0ZXY6 Isolation (ICD-10-PCS; principal; 2023-09-13)
DX: U07.1 COVID-19 (principal); I50.23 Acute on chronic systolic (congestive) heart failure; J96.01 Acute respiratory failure with hypoxia; N17.0 Acute kidney failure with tubular necrosis; J12.82 Pneumonia due to coronavirus disease 2019; I13.0 Hypertensive heart and chronic kidney disease with heart failure and stage 1 through stage 4 chronic kidney disease, or unspecified chronic kidney disease; N18.4 Chronic kidney disease, stage 4 (severe); I48.20 Chronic atrial fibrillation, unspecified; I42.9 Cardiomyopathy, unspecified; N39.0 Urinary tract infection, site not specified; Z16.12 Extended spectrum beta lactamase (ESBL) resistance; E11.22 Type 2 diabetes mellitus with diabetic chronic kidney disease; M06.9 Rheumatoid arthritis, unspecified; Z99.81 Dependence on supplemental oxygen; G20.A1 Parkinson's disease without dyskinesia, without mention of fluctuations; E11.65 Type 2 diabetes mellitus with hyperglycemia; E86.0 Dehydration; B96.20 Unspecified Escherichia coli [E. coli] as the cause of diseases classified elsewhere; E78.5 Hyperlipidemia, unspecified; R82.71 Bacteriuria; E66.3 Overweight; Z96.651 Presence of right artificial knee joint; Z79.4 Long term (current) use of insulin; Z68.35 Body mass index [BMI] 35.0-35.9, adult; Z79.82 Long term (current) use of aspirin; Z79.01 Long term (current) use of anticoagulants; Z79.84 Long term (current) use of oral hypoglycemic drugs; Z79.899 Other long term (current) drug therapy; Z88.8 Allergy status to other drugs, medicaments and biological substances; Z85.42 Personal history of malignant neoplasm of other parts of uterus; Z79.890 Hormone replacement therapy
CPT/HCPCS: 36415; 71045; 71046; 80048; 80053; 81001; 83036; 83605; 83735; 83880; 84145; 85025; 85027; 85379; 86140; 87040; 87077; 87086; 87186; 87636; 93005; 93308; 94640; 94760; 96360; 99285

== ENCOUNTER 2023-09-24 11:58 | Observation (INO) | payer MEDICARE ==
[2023-09-24] MEDS ORDERED: SODIUM CHLORIDE 0.9% 500 ML 500 ML IV STA (12:24)
--- NOTE | 2023-09-24 13:11 | XR ---
EXAMINATION TYPE: XR chest 2V DATE OF EXAM: 09/24/2023 COMPARISON: 09/23/2023 HISTORY: Weakness TECHNIQUE: Frontal and lateral views of the chest are obtained. FINDINGS: Exam is limited by suboptimal inspiration. There is mild prominence of the interstitial markings whic h was seen on the prior study. The heart size is normal for the technique. There is no large pleural effusion and there is no pneumothorax. The osseous structures are intact. IMPRESSION: Limited by suboptimal inspiration but no definite acute cardiopulmonary disease.
--- NOTE | 2023-09-24 13:13 | CT ---
EXAMINATION TYPE: CT brain wo con DATE OF EXAM: 09/24/2023 COMPARISON: 07/23/2022 HISTORY: Weakness, AMS CT DLP: 1212.4 mGycm Automated exposure control for dose reduction was used. FINDINGS: The ventricles, basal cisterns and sulci of the convexities within normal limits. No abnormal density is seen throughout the brain parenchyma. There is no acute intra or extra-axial hemorrhage. The posterior fossa including the brainstem, fourth ventricle and cerebellopontine angles are grossly normal. Intraorbital contents are normal and symmetric. Visualized paranasal sinuses and mastoid air cells are well aerated. The calvarium is intact. IMPRESSION: NO ACUTE BLEED OR MASS EFFECT. NO SIGNIFICANT ABNORMALITY SEEN.
--- NOTE | 2023-09-24 13:29 | ED ---
General Adult HPI - General Chief complaint: Altered Mental Status Stated complaint: AMS Time Seen by Provider: 09/24/23 12:15 Source: patient, EMS, RN notes reviewed, old records reviewed Mode of arrival: EMS Limitations: altered mental status - History of Present Illness Initial comments: Patient is a 78 female presents with Department complaining of altered mental status, weakness. Patient recently was in our hospital for UTI and COVID-19. Presents again at this time for lethargy. connected her out. Patient is just discharged 2 days ago on . Is currently Tuesday morning. Nares any recent falls or injuries. Has a history of Covid, CHF, hypertension, rheumatoid arthritis, diabetes. Patient did not want to go to rehab upon discharge. Patient was discharged home on oxygen. Also has a history of Parkinson's disease. Patient's only acute complaint at this time is feeling weak. Denies any chest pain, shortness breath, fevers, chills, cough. Denies any abdominal pain, nausea, vomiting, diarrhea. Presents for further evaluation at this time. - Related Data Home Medications Medication Instructions Recorded Confirmed Simvastatin [Zocor] 20 mg PO HS 07/18/14 09/24/23 Ferrous Sulfate [Iron (65 MG 325 mg PO W/SUPPER 11/10/21 09/24/23 Elemental)] Bethanechol Chloride [Urecholine] 5 mg PO DAILY 07/23/22 09/24/23 Potassium Chloride [Klor-Con M20] 20 meq PO DAILY 07/23/22 09/24/23 Primidone 75 mg PO BID 07/23/22 09/24/23 allopurinoL [Zyloprim] 300 mg PO DAILY 07/23/22 09/24/23 busPIRone HCl [Buspar] 5 mg PO DAILY 07/23/22 09/24/23 Carbidopa-Levodopa 25-100 mg 1 tab PO TID 09/14/23 09/24/23 [Sinemet 25-100 mg] Escitalopram Oxalate [Lexapro] 10 mg PO DAILY 09/14/23 09/24/23 Estrogens, Conjugated Cream 1 applicator VAGINAL DAILY PRN 09/14/23 09/24/23 [Premarin Vaginal Cream] Insulin Glargine,Hum.rec.anlog 20 units SQ HS 09/14/23 09/24/23 [Lantus Solostar Pen] Insulin Glargine,Hum.rec.anlog 40 units SQ DAILY 09/14/23 09/24/23 [Lantus Solostar Pen] Insulin Lispro [humaLOG Kwikpen] 16 units SQ TID 09/14/23 09/24/23 Levothyroxine Sodium [Synthroid] 25 mcg PO DAILY 09/14/23 09/24/23 Oxybutynin Xl [Ditropan XL] 5 mg PO TID 09/14/23 09/24/23 Previous Rx's Medication Instructions Recorded Apixaban [Eliquis] 5 mg PO BID tab 08/04/22 Metoprolol Succinate (ER) [Toprol 25 mg PO BID tab 08/04/22 XL] Albuterol Inhaler [Ventolin Hfa 2 puff INHALATION Q6H PRN 30 Days 09/22/23 Inhaler] #1 each Amiodarone [Cordarone] 200 mg PO BID 30 Days #60 tab 09/22/23 Aspirin 81 mg PO DAILY 30 Days #30 tab 09/22/23 Bumetanide [BUMEX] 1 mg PO DAILY 30 Days #30 tab 09/22/23 Losartan [Cozaar] 12.5 mg PO DAILY 30 Days #15 tab 09/22/23 Tamsulosin [Flomax] 0.4 mg PO PC-BRKFST 30 Days #30 cap 09/22/23 amLODIPine [Norvasc] 10 mg PO DAILY 30 Days #30 tab 09/22/23 guaiFENesin [Mucinex] 600 mg PO Q12HR 5 Days #10 tab 09/22/23 Allergies Allergy/AdvReac Type Severity Reaction Status Date / Time gabapentin AdvReac Hallucinati Verified 09/24/23 14:25 ons Review of Systems ROS Statement: Those systems with pertinent positive or pertinent negative responses have been documented in the HPI. Review of Systems: CONST: Denies fever EYES: Denies blurry vision ENT: Denies nasal congestion C/V: Denies Chest pain RESP: Denies shortness of breath GI: Denies abdominal pain : Denies dysuria SKIN: Denies rash. MSK: Denies joint pain. NEURO: Endorses weakness ROS Other: All systems not noted in ROS Statement are negative. Past Medical History Past Medical History: Heart Failure, Diabetes Mellitus, Hyperlipidemia, Hypert ension, Pneumonia, Rheumatoid Arthritis (RA) Additional Past Medical History / Comment(s): tremors, renal lithiasis, hemorrhoids(sx done), "has had problems w/low magnesium.anemia. per spouse pt had past cancer "uterine or cervical-had hysterectomy". it was previously charte d that pt had hx of ra and cfh spouse not able to verify this, History of Any Multi-Drug Resistant Organisms: ESBL Date of last positivie culture/infection: 09/15/23 MDRO Source:: URINE Past Surgical History: Appendectomy, Hysterectomy, Orthopedic Surgery, Tonsillectomy Additional Past Surgical History / Comment(s): rt total knee repalcement, cataracts, hemmorroidectomy, colonoscopy Past Anesthesia/Blood Transfusion Reactions: No Reported Reaction Additional Past Anesthesia/Blood Transfusion Reaction / Comment(s): per psouse- pt never receieved any blood Past Psychological History: No Psychological Hx Reported Smoking Status: Never smoker Past Alcohol Use History: None Reported Past Drug Use History: None Reported - Past Family History Mother Family Medical History: Diabetes Mellitus Father Additional Family Medical History / Comment(s): brain anuerysm General Exam - General Exam Comments Initial Comments: General: Appears somewhat lethargic, weak. Still able to answer questions properly. HEAD: Normal with no signs of head trauma. EYES: PERRLA, EOMI, conjunctiva normal, no discharge. Duples are 3 mm equal bilaterally. ENT: Hearing 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, normal oropharynx. RESPIRATORY: Clear breath sounds bilaterally. No wheezes, rales, or rhonchi. C/V: Regular rate and rhythm. S1 and S2 auscultated, bilateral symmetrical lower extremity pitting edema, peripheral pulses 2+ and intact throughout ABD: Abd is soft, nontender, nondistended EXT: Normal range of motion, no obvious deformity SKIN: No rashes or lesions observed on exposed skin. NEURO: Alert and oriented 4. History of generalized weakness. No focal weakness. Able answer all questions. Able to move all 4 extremities. Limitations: altered mental status Course Vital Signs 09/24/23 09/24/23 12:04 13:42 Temperature 97.6 F Pulse Rate 72 65 Respiratory 20 19 Rate Blood Pressure 176/76 129/75 O2 Sat by Pulse 94 L 97 Oximetry Medical Decision Making - Medical Decision Making Was pt. sent in by a medical professional or institution (JOSUÉ Carl, WAREHOUSE OPERATIONS MANAGER, urgent care, hospital, or [facility]...) When possible be specific @ -No Did you speak to anyone other than the patient for history (EMS, parent, family, police, friend...)? What history was obtained from this source @ -No Did you review nursing and triage notes (agree or disagree)? Why? @ -I reviewed and agree with nursing and triage notes Were old charts reviewed (outside hosp., previous admission, EMS record, old EKG, old radiological studies, urgent care reports/EKG's, [facility] records)? Report findings @ -Old charts reviewed Differential Diagnosis (chest pain, altered mental status, abdominal pain women, abdominal pain men, vaginal bleeding, weakness, fever, dyspnea, syncope, head ache, dizziness, GI bleed, back pain, seizure, CVA, palpatations, mental health, musculoskeletal)? @ -Differential Weakness: Hypoglycemia, shock, sepsis, hyponatremia, anemia, infection, UT, ETOH, adverse medicine reaction, overdose, stroke, this is not meant to be an all-inclusive list. EKG interpreted by me (3pts min.). @ -As above X-rays interpreted by me (1pt min.). @ -X-ray reveals no obvious acute cardiopulmonary process. CT interpreted by me (1pt min.). @ -CT brain reveals no obvious acute intracranial process or injury. U/S interpreted by me (1pt. min.). @ -None done What testing was considered but not performed or refused? (CT, X-rays, U/S, labs)? Why? @ -None What meds were considered but not given or refused? Why? @ -None Did you discuss the management of the patient with other professionals (professionals i.e. JOSUÉ Carl, WAREHOUSE OPERATIONS MANAGER, lab, RT, psych nurse, social science manager, scaffold erector, teacher, corporate development officer, senior planning manager)? Give summary @ -No Was smoking cessation discussed for >3mins.? @ -No Was critical care preformed (if so, how long)? @ -No Were there social determinants of health that impacted care today? How? (Homelessness, low income, unemployed, alcoholism, drug addiction, transportation, low edu. Level, literacy, decrease access to med. care, fpc, rehab)? @ -No Was there de-escalation of care discussed even if they declined (Discuss DNR or withdrawal of care, Hospice)? DNR status @ -No What co-morbidities impacted this encounter? (DM, HTN, Smoking, COPD, CAD, Cancer, CVA, ARF, Chemo, Hep., AIDS, mental health diagnosis, sleep apnea, morbid obesity)? @ -CHF, recent Covid infection, recent UTI Was patient admitted / discharged? Hospital course, mention meds given and route, prescriptions, significant lab abnormalities, going to OR and other pertinent info. @ -Based on the patient's presentation and physical exam, presents for generalized weakness. Was recently discharged from the hospital. We will obtain generalized weakness workup including CT brain and chest x-ray. Patient was in agreement this plan. She does have a history of CHF. She is not hypotensive. Vital signs within acceptable limits. We will hold fluids at this time to avoid fluid overloading her. She was in agreement this plan. EKG shows no signs of acute ischemia. Imaging unremarkable.Patient's laboratory studies are also within acceptable limits. Patient is still testing positive for COVID-19. On reevaluation, patient is slightly more alert but still complaining of weakness. She is still alert and oriented 3-4. No focal deficits. I updated family. She'll be admitted to the hospital. Patient was in agreement this plan. Family in agreement this plan. I spoke with the admitting team, Dr. Yolanda doe who is familiar with the patient and accepted the patient. Requested VBG be ordered which was done. Undiagnosed new problem with uncertain prognosis? @ -No Drug Therapy requiring intensive monitoring for toxicity (Heparin, Nitro, Insulin, Cardizem)? @ -No Were any procedures done? @ -No Diagnosis/symptom? @ -Weakness, COVID-19 infection Acute, or Chronic, or Acute on Chronic? @ -Acute Uncomplicated (without systemic symptoms) or Complicated (systemic symptoms)? @ -Complicated Side effects of treatment? @ -none Exacerbation, Progression, or Severe Exacerbation] @ -no Poses a threat to life or bodily function? @ -Yes - Lab Data Result diagrams: 09/24/23 13:32 09/24/23 13:40 Lab Results 09/24/23 09/24/23 09/24/23 Range/Units 12:48 12:48 12:48 WBC (3.8-10.6) k/uL RBC (3.80-5.40) m/uL Hgb (11.4-16.0) gm/dL Hct (34.0-46.0) % MCV (80.0-100.0) fL MCH (25.0-35.0) pg MCHC (31.0-37.0) g/dL RDW (11.5-15.5) % Plt Count (150-450) k/uL MPV Neutrophils % % Lymphocytes % % Monocytes % % Eosinophils % % Basophils % % Neutrophils # (1.3-7.7) k/uL Lymphocytes # (1.0-4.8) k/uL Monocytes # (0-1.0) k/uL Eosinophils # (0-0.7) k/uL Basophils # (0-0.2) k/uL Hypochromasia PT 10.7 (10.0-12.5) sec INR 1.0 (<1.2) APTT 22.7 (22.0-30.0) sec Sodium (137-145) mmol/L Potassium (3.5-5.1) mmol/L Chloride (98-107) mmol/L Carbon Dioxide (22-30) mmol/L Anion Gap mmol/L BUN (7-17) mg/dL Creatinine (0.52-1.04) mg/dL Est GFR (CKD-EPI)AfAm (>60 ml/min/1.73 sqM) Est GFR (CKD-EPI)NonAf (>60 ml/min/1.73 sqM) Glucose (74-99) mg/dL Plasma Lactic Acid Woo 0.8 (0.7-2.0) mmol/L Calcium (8.4-10.2) mg/dL Magnesium (1.6-2.3) mg/dL Total Bilirubin (0.2-1.3) mg/dL AST (14-36) U/L ALT (4-34) U/L Alkaline Phosphatase (38-126) U/L Troponin I (0.000-0.034) ng/mL NT-Pro-B Natriuret Pep pg/mL Total Protein (6.3-8.2) g/dL Albumin (3.5-5.0) g/dL Urine Color Light Yellow Urine Appearance Clear (Clear) Urine pH 5.5 (5.0-8.0) Ur Specific [place] 1.016 (1.001-1.035) Urine Protein Trace H (Negative) Urine Glucose (UA) Negative (Negative) Urine Ketones Negative (Negative) Urine Blood Negative (Negative) Urine Nitrite Negative (Negative) Urine Bilirubin Negative (Negative) Urine Urobilinogen <2.0 (<2.0) mg/dL Ur Leukocyte Esterase Negative (Negative) Influenza Type A (PCR) (Not Detectd) Influenza Type B (PCR) (Not Detectd) RSV (PCR) (Not Detectd) SARS-CoV-2 (PCR) (Not Detectd) 09/24/23 09/24/23 09/24/23 Range/Units 12:48 13:32 13:40 WBC 6.9 (3.8-10.6) k/uL RBC 4.19 (3.80-5.40) m/uL Hgb 12.9 (11.4-16.0) gm/dL Hct 41.1 (34.0-46.0) % MCV 97.9 (80.0-100.0) fL MCH 30.7 (25.0-35.0) pg MCHC 31.4 (31.0-37.0) g/dL RDW 13.8 (11.5-15.5) % Plt Count 279 (150-450) k/uL MPV 7.1 Neutrophils % 72 % Lymphocytes % 18 % Monocytes % 6 % Eosinophils % 2 % Basophils % 0 % Neutrophils # 5.0 (1.3-7.7) k/uL Lymphocytes # 1.3 (1.0-4.8) k/uL Monocytes # 0.4 (0-1.0) k/uL Eosinophils # 0.2 (0-0.7) k/uL Basophils # 0.0 (0-0.2) k/uL Hypochromasia Slight PT (10.0-12.5) sec INR (<1.2) APTT (22.0-30.0) sec Sodium (137-145) mmol/L Potassium (3.5-5.1) mmol/L Chloride (98-107) mmol/L Carbon Dioxide (22-30) mmol/L Anion Gap mmol/L BUN (7-17) mg/dL Creatinine (0.52-1.04) mg/dL Est GFR (CKD-EPI)AfAm (>60 ml/min/1.73 sqM) Est GFR (CKD-EPI)NonAf (>60 ml/min/1.73 sqM) Glucose (74-99) mg/dL Plasma Lactic Acid Woo (0.7-2.0) mmol/L Calcium (8.4-10.2) mg/dL Magnesium (1.6-2.3) mg/dL Total Bilirubin (0.2-1.3) mg/dL AST (14-36) U/L ALT (4-34) U/L Alkaline Phosphatase (38-126) U/L Troponin I <0.012 (0.000-0.034) ng/mL NT-Pro-B Natriuret Pep pg/mL Total Protein (6.3-8.2) g/dL Albumin (3.5-5.0) g/dL Urine Color Urine Appearance (Clear) Urine pH (5.0-8.0) Ur Specific [place] (1.001-1.035) Urine Protein (Negative) Urine Glucose (UA) (Negative) Urine Ketones (Negative) Urine Blood (Negative) Urine Nitrite (Negative) Urine Bilirubin (Negative) Urine Urobilinogen (<2.0) mg/dL Ur Leukocyte Esterase (Negative) Influenza Type A (PCR) Not Detected (Not Detectd) Influenza Type B (PCR) Not Detected (Not Detectd) RSV (PCR) Not Detected (Not Detectd) SARS-CoV-2 (PCR) Detected A (Not Detectd) 09/24/23 Range/Units 13:40 WBC (3.8-10.6) k/uL RBC (3.80-5.40) m/uL Hgb (11.4-16.0) gm/dL Hct (34.0-46.0) % MCV (80.0-100.0) fL MCH (25.0-35.0) pg MCHC (31.0-37.0) g/dL RDW (11.5-15.5) % Plt Count (150-450) k/uL MPV Neutrophils % % Lymphocytes % % Monocytes % % Eosinophils % % Basophils % % Neutrophils # (1.3-7.7) k/uL Lymphocytes # (1.0-4.8) k/uL Monocytes # (0-1.0) k/uL Eosinophils # (0-0.7) k/uL Basophils # (0-0.2) k/uL Hypochromasia PT (10.0-12.5) sec INR (<1.2) APTT (22.0-30.0) sec Sodium 143 (137-145) mmol/L Potassium 4.3 (3.5-5.1) mmol/L Chloride 111 H (98-107) mmol/L Carbon Dioxide 29 (22-30) mmol/L Anion Gap 3 mmol/L BUN 31 H (7-17) mg/dL Creatinine 1.39 H (0.52-1.04) mg/dL Est GFR (CKD-EPI)AfAm 43 (>60 ml/min/1.73 sqM) Est GFR (CKD-EPI)NonAf 37 (>60 ml/min/1.73 sqM) Glucose 115 H (74-99) mg/dL Plasma Lactic Acid Woo (0.7-2.0) mmol/L Calcium 9.2 (8.4-10.2) mg/dL Magnesium 1.9 (1.6-2.3) mg/dL Total Bilirubin 0.3 (0.2-1.3) mg/dL AST 19 (14-36) U/L ALT 10 (4-34) U/L Alkaline Phosphatase 52 (38-126) U/L Troponin I (0.000-0.034) ng/mL NT-Pro-B Natriuret Pep 660 pg/mL Total Protein 6.3 (6.3-8.2) g/dL Albumin 3.1 L (3.5-5.0) g/dL Urine Color Urine Appearance (Clear) Urine pH (5.0-8.0) Ur Specific [place] (1.001-1.035) Urine Protein (Negative) Urine Glucose (UA) (Negative) Urine Ketones (Negative) Urine Blood (Negative) Urine Nitrite (Negative) Urine Bilirubin (Negative) Urine Urobilinogen (<2.0) mg/dL Ur Leukocyte Esterase (Negative) Influenza Type A (PCR) (Not Detectd) Influenza Type B (PCR) (Not Detectd) RSV (PCR) (Not Detectd) SARS-CoV-2 (PCR) (Not Detectd) - EKG Data -: EKG Interpreted by Me EKG Comments: 12-lead Electrocardiogram Interpretation Note EKG was reviewed and interpreted by myself. 12-lead ECG performed at 1231 is interpreted by me as revealing normal sinus rhythm at a rate of 70 beats per minute. [place] is normal. MO interval is 181 ms, QRS duration is 107 ms, QTc is 423 ms.. There were no ST or T wave abnormalities to suggest myocardial ischemia or injury. R wave progression across the precordium was delayed. By my interpretation this EKG is non-diagnostic for acute ischemia. Disposition Clinical Impression: COVID-19 virus infection, Weakness Disposition: ADMITTED IP TO THIS HOSP Condition: Stable Time of Disposition: 15:19
[2023-09-24 13:42] LABS: Basophils % (A) 0 %; Eosinophils # (A) 0.2 k/uL (0-0.7); Eosinophils % (A) 2 %; HCT 41.1 % (34.0-46.0); HGB 12.9 gm/dL (11.4-16.0); Hypochromasia Slight; Lymphocytes # (A) 1.3 k/uL (1.0-4.8); Lymphocytes % (A) 18 %; MCH 30.7 pg (25.0-35.0); MCHC 31.4 g/dL (31.0-37.0); MCV 97.9 fL (80.0-100.0); Mean Platelet Volume 7.1; Monocytes # (A) 0.4 k/uL (0-1.0); Monocytes % (A) 6 %; Neutrophils % (A) 72 %; Platelet Count 279 k/uL (150-450); RBC 4.19 m/uL (3.80-5.40); RDW 13.8 % (11.5-15.5); WBC 6.9 k/uL (3.8-10.6)
[2023-09-24 13:42] LABS: Appearance,Urine Clear (Clear); Bilirubin,Urine Negative (Negative); Blood,Urine Negative (Negative); Color,Urine Light Yellow; Glucose,Urine (UA) Negative (Negative); Ketones,Urine Negative (Negative); Leukocyte Esterase,Urine Negative (Negative); Nitrite,Urine Negative (Negative); PH, Urine 5.5 (5.0-8.0); Protein,Urine Trace (Negative); Specific Gravity,Urine 1.016 (1.001-1.035); Urobilinogen,Urine <2.0 mg/dL (<2.0)
[2023-09-24 13:54] LABS: Partial Thromboplastin Time 22.7 sec (22.0-30.0); Prothrombin Time 10.7 sec (10.0-12.5)
[2023-09-24 14:24] LABS: NT-Pro-B-Type Natriuretic Pept 660 pg/mL
[2023-09-24 14:55] LABS: ALT 10 U/L (4-34); AST 19 U/L (14-36); African American GFR (CKD) 43 (>60 ml/min/1.73 sqM); Albumin 3.1 g/dL (3.5-5.0); Alkaline Phosphatase 52 U/L (38-126); Anion Gap 3 mmol/L; Blood Urea Nitrogen 31 mg/dL (7-17); Calcium 9.2 mg/dL (8.4-10.2); Carbon Dioxide 29 mmol/L (22-30); Chloride 111 mmol/L (98-107); Glucose 115 mg/dL (74-99); Magnesium 1.9 mg/dL (1.6-2.3); Non-African American GFR(CKD) 37 (>60 ml/min/1.73 sqM); Potassium 4.3 mmol/L (3.5-5.1); Sodium 143 mmol/L (137-145); Total Bilirubin 0.3 mg/dL (0.2-1.3); Total Protein 6.3 g/dL (6.3-8.2)
[2023-09-24] MEDS ORDERED: ACETAMINOPHEN TAB 325 MG TAB PO PRN (15:25)
[2023-09-24] MEDS ORDERED: ONDANSETRON 4 MG/2 ML VIAL IVP PRN (15:25)
[2023-09-24] MEDS ORDERED: NALOXONE 0.4 MG/ML 1 ML VIAL IV PRN (15:25)
[2023-09-24 16:29] LABS: VBG PH 7.39 (7.31-7.41)
[2023-09-24] MEDS ORDERED: ALBUTEROL HFA INHALER INHALATION PRN (16:42)
[2023-09-24] MEDS: allopurinoL 300 MG TAB PO SCH (18:04)
[2023-09-24] MEDS: FERROUS SULFATE 325 MG TAB PO SCH (18:04)
[2023-09-24 18:05] LABS: Glucose,Whole Blood 90 mg/dL (70-110)
[2023-09-24] MEDS: INSULIN ASPART (NovoLOG) 100 UNIT/ML VIAL SQ SCH (18:06)
[2023-09-24] MEDS: CARBIDOPA-LEVODOPA 25-100 MG 1 EACH TAB PO SCH (21:37)
[2023-09-24] MEDS: APIXABAN 5 MG TAB PO SCH (21:37)
[2023-09-24] MEDS: oxyBUTYnin chloride 5 MG TAB PO SCH (21:37)
[2023-09-24] MEDS: ATORVASTATIN 10 MG TAB PO SCH (21:38)
[2023-09-24] MEDS: guaiFENesin 600 MG TABLET.ER PO SCH (21:38)
[2023-09-24] MEDS: PRIMIDONE 50 MG TAB PO SCH (21:39)
[2023-09-24] MEDS: METOPROLOL TARTRATE 25 MG TAB PO SCH (21:39)
[2023-09-24 21:50] LABS: Glucose,Whole Blood 73 mg/dL (70-110)
[2023-09-24 23:31] LABS: Glucose,Whole Blood 109 mg/dL (70-110)
[2023-09-24] MEDS: INSULIN DETEMIR (LEVEMIR) 100 UNIT/ML SYR SQ SCH (23:48)
[2023-09-25 05:37] LABS: Glucose,Whole Blood 129 mg/dL (70-110)
[2023-09-25 09:10] LABS: BUN/Creat Ratio 18.08 Ratio (12.00-20.00); Blood Urea Nitrogen 23.5 mg/dL (9.0-27.0); Calcium 8.8 mg/dL (8.7-10.3); Carbon Dioxide 30.2 mmol/L (21.6-31.8); Chloride 109 mmol/L (96-109); Glucose 156 mg/dL (70-110); Potassium 4.3 mmol/L (3.5-5.5); Sodium 145 mmol/L (135-145)
[2023-09-25] MEDS: INSULIN ASPART (NovoLOG) 100 UNIT/ML VIAL SQ SCH ×3 (09:28→17:13)
[2023-09-25] MEDS: TAMSULOSIN 0.4 MG CAP.ER.24H PO SCH (09:29)
[2023-09-25] MEDS: POTASSIUM CHLORIDE ER 20 MEQ TAB.ER PO SCH (09:29)
[2023-09-25] MEDS: guaiFENesin 600 MG TABLET.ER PO SCH ×2 (09:29→20:50)
[2023-09-25] MEDS: PRIMIDONE 50 MG TAB PO SCH ×2 (09:29→20:48)
[2023-09-25] MEDS: LEVOTHYROXINE 25 MCG TAB PO SCH (09:30)
[2023-09-25] MEDS: amLODIPine 10 MG TAB PO SCH (09:30)
[2023-09-25] MEDS: busPIRone HCl 5 MG TAB PO SCH (09:30)
[2023-09-25] MEDS: allopurinoL 300 MG TAB PO SCH (09:30)
[2023-09-25] MEDS: METOPROLOL TARTRATE 25 MG TAB PO SCH ×2 (09:30→20:49)
[2023-09-25] MEDS: LOSARTAN 25 MG TAB PO SCH (09:30)
[2023-09-25] MEDS: APIXABAN 5 MG TAB PO SCH ×2 (09:30→20:51)
[2023-09-25] MEDS: AMIODARONE 200 MG TAB PO SCH (09:30)
[2023-09-25] MEDS: CARBIDOPA-LEVODOPA 25-100 MG 1 EACH TAB PO SCH ×3 (09:31→20:49)
[2023-09-25] MEDS: BUMETANIDE 1 MG TAB PO SCH (09:31)
[2023-09-25] MEDS: ASPIRIN 81 MG PO SCH (09:31)
[2023-09-25] MEDS: INSULIN DETEMIR (LEVEMIR) 100 UNIT/ML SYR SQ SCH ×2 (09:32→20:48)
[2023-09-25] MEDS: ESCITALOPRAM 10 MG TAB PO SCH (09:40)
[2023-09-25 09:44] LABS: Basophils # (A) 0.01 X 10*3/uL (0.00-0.10); Basophils % (A) 0.1 %; Eosinophils # (A) 0.17 X 10*3/uL (0.04-0.35); Eosinophils % (A) 2.4 %; HCT 35.6 % (37.2-46.3); HGB 10.9 g/dL (12.0-15.0); Lymphocytes # (A) 1.61 X 10*3/uL (0.90-5.00); Lymphocytes % (A) 22.7 %; MCH 30.1 pg (27.0-32.0); MCHC 30.6 g/dL (32.0-37.0); MCV 98.3 FL (80.0-97.0); Mean Platelet Volume 9.5 FL (9.5-12.2); Monocytes # (A) 0.63 X 10*3/uL (0.20-1.00); Monocytes % (A) 8.9 %; NRBC Per 100 WBC 0 X 10*3/uL (0.00-0.01); Neutrophils # (A) 4.63 X 10*3/uL (1.80-7.70); Neutrophils % (A) 65.5 %; Platelet Count 280 X 10*3/uL (140-440); RBC 3.62 X 10*6/uL (4.10-5.20); WBC 7.08 X 10*3/uL (4.50-10.00)
--- NOTE | 2023-09-25 11:40 | P.HPIM ---
History of Present Illness H&P Date: 09/24/23 Chief Complaint: Generalized weakness * 78-year-old patient with past medical history significant for diabetes mellitus, hypertension, hyperlipidemia, history of congestive heart failure systolic dysfunction who was recently admitted discharged on 09/22/2023 been treated for respiratory failure from COVID-19, CHF exacerbation with systolic dysfunction, E coli urinary tract infection, diabetes mellitus type 2 history of Parkinson's disease and chronic atrial fibrillation presents to the emergency department with complains of altered mental status and lethargic. * Patient has been having progressive weakness and has been refusing to go to rehab and was discharged home on oxygen patient has been complaining of generalized weakness * Workup initiated in ER include CBC which was essentially normal INR within normal limits venous blood gas obtained showed pCO2 of 50 pH of 7.39 serum chemistry obtained sodium 143 potassium 4.3 BUN 31 creatinine 1.39 urinalysis obtained was negative for UTI patient continues to remain positive for Covid * Patient states while she was at home she was in the restroom trying to get up from the commode however she was very weak, patient stated there and her tried to help her to get up. The next thing she remembers is EMS was called and she is sent to the hospital. * CT brain obtained in ED negative for acute bleed or mass effect no significant abnormality noted. Patient to be admitted to medical floor with consultation to be obtained from neurology since patient is on multiple medications which can contribute to altered mentation as well. REVIEW OF SYSTEMS: weakness, confusion CONSTITUTIONAL: No fever, no malaise, no fatigue. HEENT: No recent visual problems or hearing problems. Denied any sore throat. CARDIOVASCULAR: No chest pain, orthopnea, PND, no palpitations, no syncope. PULMONARY: No shortness of breath, no cough, no hemoptysis. GASTROINTESTINAL: No diarrhea, no nausea, no vomiting, no abdominal pain. NEUROLOGICAL: weakness, confusion HEMATOLOGICAL: Denies any bleeding or petechiae. GENITOURINARY: Denies any burning micturition, frequency, or urgency. MUSCULOSKELETAL/RHEUMATOLOGICAL: Denies any joint pain, swelling, or any muscle pain. ENDOCRINE: Denies any polyuria or polydipsia. PHYSICAL EXAMINATION: GENERAL: The patient is alert and oriented x 2 , ill appearance, nasal cannula in place. HEENT: Pupils are round and equally reacting to light. EOMI Normocephalic, atraumatic. No pharyngeal erythema. No thyromegaly. CARDIOVASCULAR: S1 and S2 present. No murmurs, rubs, or gallops. PULMONARY: Chest is clear to auscultation, no wheezing or crackles. ABDOMEN: Soft, nontender, nondistended, normoactive bowel sounds. No palpable organomegaly. MUSCULOSKELETAL: No joint swelling or deformity. EXTREMITIES: No cyanosis, clubbing, or pedal edema. NEUROLOGICAL: Gross neurological examination did not reveal any focal deficits. resting tremors noted, global weakness SKIN: No rashes. Past Medical History Past Medical History: Heart Failure, Diabetes Mellitus, Hyperlipidemia, Hypertension, Pneumonia, Rheumatoid Arthritis (RA) Additional Past Medical History / Comment(s): tremors, renal lithiasis, hemorrhoids(sx done), "has had problems w/low magnesium.anemia. per spouse pt had past cancer "uterine or cervical-had hysterectomy". it was previously charted that pt had hx of ra and cfh spouse not able to verify this, History of Any Multi-Drug Resistant Organisms: ESBL Date of last positivie culture/infection: 09/15/23 MDRO Source:: URINE Past Surgical History: Appendectomy, Hysterectomy, Orthopedic Surgery, Tonsillectomy Additional Past Surgical History / Comment(s): rt total knee repalcement, cataracts, hemmorroidectomy, colonoscopy Past Anesthesia/Blood Transfusion Reactions: No Reported Reaction Additional Past Anesthesia/Blood Transfusion Reaction / Comment(s): per psouse- pt never receieved any blood Past Psychological History: No Psychological Hx Reported Smoking Status: Never smoker Past Alcohol Use History: None Reported Past Drug Use History: None Reported - Past Family History Mother Family Medical History: Diabetes Mellitus Father Additional Family Medical History / Comment(s): brain anuerysm Medications and Allergies Home Medications Medication Instructions Recorded Confirmed Type Simvastatin [Zocor] 20 mg PO HS 07/18/14 09/24/23 History Ferrous Sulfate [Iron (65 MG 325 mg PO W/SUPPER 11/10/21 09/24/23 History Elemental)] Bethanechol Chloride [Urecholine] 5 mg PO DAILY 07/23/22 09/24/23 History Potassium Chloride [Klor-Con M20] 20 meq PO DAILY 07/23/22 09/24/23 History Primidone 75 mg PO BID 07/23/22 09/24/23 History allopurinoL [Zyloprim] 300 mg PO DAILY 07/23/22 09/24/23 History busPIRone HCl [Buspar] 5 mg PO DAILY 07/23/22 09/24/23 History Apixaban [Eliquis] 5 mg PO BID tab 08/04/22 09/24/23 Rx Metoprolol Succinate (ER) [Toprol 25 mg PO BID tab 08/04/22 09/24/23 Rx XL] Carbidopa-Levodopa 25-100 mg 1 tab PO TID 09/14/23 09/24/23 History [Sinemet 25-100 mg] Escitalopram Oxalate [Lexapro] 10 mg PO DAILY 09/14/23 09/24/23 History Estrogens, Conjugated Cream 1 applicator VAGINAL DAILY PRN 09/14/23 09/24/23 History [Premarin Vaginal Cream] Insulin Glargine,Hum.rec.anlog 20 units SQ HS 09/14/23 09/24/23 History [Lantus Solostar Pen] Insulin Glargine,Hum.rec.anlog 40 units SQ DAILY 09/14/23 09/24/23 History [Lantus Solostar Pen] Insulin Lispro [humaLOG Kwikpen] 16 units SQ TID 09/14/23 09/24/23 History Levothyroxine Sodium [Synthroid] 25 mcg PO DAILY 09/14/23 09/24/23 History Oxybutynin Xl [Ditropan XL] 5 mg PO TID 09/14/23 09/24/23 History Albuterol Inhaler [Ventolin Hfa 2 puff INHALATION Q6H PRN 30 Days 09/22/23 09/24/23 Rx Inhaler] #1 each Amiodarone [Cordarone] 200 mg PO BID 30 Days #60 tab 09/22/23 09/24/23 Rx Aspirin 81 mg PO DAILY 30 Days #30 tab 09/22/23 09/24/23 Rx Bumetanide [BUMEX] 1 mg PO DAILY 30 Days #30 tab 09/22/23 09/24/23 Rx Losartan [Cozaar] 12.5 mg PO DAILY 30 Days #15 tab 09/22/23 09/24/23 Rx Tamsulosin [Flomax] 0.4 mg PO PC-BRKFST 30 Days #30 cap 09/22/23 09/24/23 Rx amLODIPine [Norvasc] 10 mg PO DAILY 30 Days #30 tab 09/22/23 09/24/23 Rx guaiFENesin [Mucinex] 600 mg PO Q12HR 5 Days #10 tab 09/22/23 09/24/23 Rx Allergies Allergy/AdvReac Type Severity Reaction Status Date / Time gabapentin AdvReac Hallucinati Verified 09/24/23 14:25 ons Physical Exam Vitals: Vital Signs Temp Pulse Resp BP Pulse Ox 09/24/23 22:00 62 16 181/78 99 09/24/23 18:00 60 12 158/66 97 09/24/23 17:00 60 16 158/66 98 09/24/23 16:00 66 19 152/60 97 09/24/23 15:00 71 12 167/66 99 09/24/23 14:00 62 14 129/75 97 09/24/23 13:42 65 19 129/75 97 09/24/23 13:00 178/75 98 09/24/23 12:04 97.6 F 72 20 176/76 94 L 09/24/23 12:01 80 L Intake and Output 09/24/23 09/24/23 09/24/23 06:59 14:59 22:59 Output Total 1100 Balance -1100 Output: Urine 1100 Uretheral ([place]) 1100 Other: Weight 79.379 kg Results CBC & Chem 7: 09/25/23 05:40 09/25/23 05:40 Labs: Abnormal Lab Results - Last 24 Hours (Table) 09/24/23 09/24/23 09/24/23 Range/Units 12:48 12:48 13:40 VBG HCO3 (24-28) mmol/L Chloride 111 H (98-107) mmol/L BUN 31 H (7-17) mg/dL Creatinine 1.39 H (0.52-1.04) mg/dL Glucose 115 H (74-99) mg/dL Albumin 3.1 L (3.5-5.0) g/dL Urine Protein Trace H (Negative) SARS-CoV-2 (PCR) Detected A (Not Detectd) 09/24/23 Range/Units 16:20 VBG HCO3 30 H (24-28) mmol/L Chloride (98-107) mmol/L BUN (7-17) mg/dL Creatinine (0.52-1.04) mg/dL Glucose (74-99) mg/dL Albumin (3.5-5.0) g/dL Urine Protein (Negative) SARS-CoV-2 (PCR) (Not Detectd) Assessment and Plan Assessment: Assessment and plan * post COVID-19 with generalized weakness and debility failure to thrive * History of Parkinson's disease with progressive weakness * recent admission for E coli urinary tract infection completed antibiotic * chronic atrial fibrillation * chronic congestive heart failure systolic dysfunction not in exacerbation * chronic hypoxic respiratory failure * Diabetes mellitus type 2 * Polypharmacy * In regards to generalized debility and weakness, CT brain negative, MRI brain ordered, patient has nonfocal weakness however readmission with confusion but no other explanation. * In regards to history of congestive heart failure continue home regimen, patient appears at baseline volume status, does not appear hypervolemic as compared to previous hospitalization * In regards to atrial fibrillation, continue amiodarone, continue anticoagulation continue rate control * In regards to recent hospitalization for E. coli urinary tract infection completed course of antibiotic * In regards to diabetes mellitus type 2, Accu-Cheks before meals at bedtime. Monitor for hypoglycemia continue patient on Levemir and NovoLog * Patient is on multiple medications which can contribute to impaired mentation including oxybutynin, buspirone, Lexapro. Neurology consulted for further recommendations * CODE STATUS is full code * Patient will need physical therapy occupational therapy evaluation during previous hospitalization she diffuse to go to subacute rehab however she is back in the hospital within 48 hours Time with Patient: Greater than 30
[2023-09-25 12:21] LABS: Glucose,Whole Blood 76 mg/dL (70-110)
[2023-09-25] MEDS: oxyBUTYnin chloride 5 MG TAB PO SCH ×2 (15:43→20:49)
--- NOTE | 2023-09-25 16:42 | P.CNNES ---
History of Present Illness Consult date: 09/25/23 Reason for Consult: Parkinson's disease with worsening mentation History of Present Illness: The pt is a 78 y/o female who is seen in neurologic consultation on 2023, in collaboration with Endy Moore, via teleneurology. History is obtained from the pt, daughter and review of the chart. According to the ER note; The pt "presents with Department complaining of altered mental status, weakness. Patient recently was in our hospital for UTI and COVID-19. Presents again at this time for lethargy. could not wake her up. The pt was just discharged on and returned to the ER on Tuesday. There was no reported injuries or falls. Has a history of Covid, CHF, hypertension, rheumatoid arthritis, diabetes. Patient did not want to go to rehab upon discharge. Patient was discharged home on oxygen. Also has a history of Parkinson's disease. Patient's only acute complaint at this time is feeling weak. Denies any chest pain, shortness breath, fevers, chills, cough". According to the daughter, the pt has not been confused and has no difficulty with memory. She has been tired and weak. CT scan in the ER revealed no signs of infarct or hemorrhage. Past Medical History Past Medical History: Heart Failure, Diabetes Mellitus, Hyperlipidemia, Hypertension, Pneumonia, Rheumatoid Arthritis (RA) Additional Past Medical History / Comment(s): tremors, renal lithiasis, hemorrhoids(sx done), "has had problems w/low magnesium.anemia. per spouse pt had past cancer "uterine or cervical-had hysterectomy". it was previously charted that pt had hx of ra and cfh spouse not able to verify this, History of Any Multi-Drug Resistant Organisms: ESBL Date of last positivie culture/infection: 09/15/23 MDRO Source:: URINE Past Surgical History: Appendectomy, Hysterectomy, Orthopedic Surgery, Tonsillectomy Additional Past Surgical History / Comment(s): rt total knee repalcement, cataracts, hemmorroidectomy, colonoscopy Past Anesthesia/Blood Transfusion Reactions: No Reported Reaction Additional Past Anesthesia/Blood Transfusion Reaction / Comment(s): per psouse- pt never receieved any blood Past Psychological History: No Psychological Hx Reported Smoking Status: Never smoker Past Alcohol Use History: None Reported Past Drug Use History: None Reported - Past Family History Mother Family Medical History: Diabetes Mellitus Father Additional Family Medical History / Comment(s): brain anuerysm Medications and Allergies Home Medications Medication Instructions Recorded Confirmed Type Simvastatin [Zocor] 20 mg PO HS 07/18/14 09/24/23 History Ferrous Sulfate [Iron (65 MG 325 mg PO W/SUPPER 11/10/21 09/24/23 History Elemental)] Bethanechol Chloride [Urecholine] 5 mg PO DAILY 07/23/22 09/24/23 History Potassium Chloride [Klor-Con M20] 20 meq PO DAILY 07/23/22 09/24/23 History Primidone 75 mg PO BID 07/23/22 09/24/23 History allopurinoL [Zyloprim] 300 mg PO DAILY 07/23/22 09/24/23 History busPIRone HCl [Buspar] 5 mg PO DAILY 07/23/22 09/24/23 History Apixaban [Eliquis] 5 mg PO BID tab 08/04/22 09/24/23 Rx Metoprolol Succinate (ER) [Toprol 25 mg PO BID tab 08/04/22 09/24/23 Rx XL] Carbidopa-Levodopa 25-100 mg 1 tab PO TID 09/14/23 09/24/23 History [Sinemet 25-100 mg] Escitalopram Oxalate [Lexapro] 10 mg PO DAILY 09/14/23 09/24/23 History Estrogens, Conjugated Cream 1 applicator VAGINAL DAILY PRN 09/14/23 09/24/23 History [Premarin Vaginal Cream] Insulin Glargine,Hum.rec.anlog 20 units SQ HS 09/14/23 09/24/23 History [Lantus Solostar Pen] Insulin Glargine,Hum.rec.anlog 40 units SQ DAILY 09/14/23 09/24/23 History [Lantus Solostar Pen] Insulin Lispro [humaLOG Kwikpen] 16 units SQ TID 09/14/23 09/24/23 History Levothyroxine Sodium [Synthroid] 25 mcg PO DAILY 09/14/23 09/24/23 History Oxybutynin Xl [Ditropan XL] 5 mg PO TID 09/14/23 09/24/23 History Albuterol Inhaler [Ventolin Hfa 2 puff INHALATION Q6H PRN 30 Days 09/22/23 09/24/23 Rx Inhaler] #1 each Amiodarone [Cordarone] 200 mg PO BID 30 Days #60 tab 09/22/23 09/24/23 Rx Aspirin 81 mg PO DAILY 30 Days #30 tab 09/22/23 09/24/23 Rx Bumetanide [BUMEX] 1 mg PO DAILY 30 Days #30 tab 09/22/23 09/24/23 Rx Losartan [Cozaar] 12.5 mg PO DAILY 30 Days #15 tab 09/22/23 09/24/23 Rx Tamsulosin [Flomax] 0.4 mg PO PC-BRKFST 30 Days #30 cap 09/22/23 09/24/23 Rx amLODIPine [Norvasc] 10 mg PO DAILY 30 Days #30 tab 09/22/23 09/24/23 Rx guaiFENesin [Mucinex] 600 mg PO Q12HR 5 Days #10 tab 09/22/23 09/24/23 Rx Allergies Allergy/AdvReac Type Severity Reaction Status Date / Time gabapentin AdvReac Hallucinati Verified 09/24/23 14:25 ons Physical Examination - Vital Signs Vital Signs: Vital Signs Temp Pulse Pulse Resp BP BP Pulse Ox 09/25/23 07:17 98.6 F 55 L 20 140/64 100 09/25/23 01:57 97.6 F 63 133/77 96 09/24/23 22:22 97.5 F L 73 20 175/68 93 L 09/24/23 22:00 62 16 181/78 99 09/24/23 18:00 60 12 158/66 97 09/24/23 17:00 60 16 158/66 98 09/24/23 16:00 66 19 152/60 97 09/24/23 15:00 71 12 167/66 99 09/24/23 14:00 62 14 129/75 97 09/24/23 13:42 65 19 129/75 97 09/24/23 13:00 178/75 98 09/24/23 12:04 97.6 F 72 20 176/76 94 L 09/24/23 12:01 80 L Intake and Output 09/24/23 09/25/23 09/25/23 22:59 06:59 14:59 Output Total 1100 325 Balance -1100 -325 Output: Urine 1100 325 Uretheral ([place]uffman) 1100 Other: Voiding Method Indwelling Catheter Weight 79.379 kg General: The pt is reclining in the bed. He is in no acute distress. HEENT: Head is atraumatic, normocephalic. There is no scleral icterus. Fundus not visualized. Mucous membranes moist. Neck: Supple without bruits Heart: Regular rate and rhythm Lungs: No cough or wheezing Extremities: Bilateral pitting edema of lower extremities Neurological Exam Mental status: The pt is awake, alert and oriented x3. Speech is fluent. No dysarthria or aphasia Cranial nerves: Pupils equal at 3mm and reactive. Visual vanessa full. Extraocular movements intact. No nystagmus. Facial sensation intact. No facial asymmetry. Hearing 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. Uvula and palate midline. Shoulder shrug symmetric. Tongue protrudes midline. Motor: Strength is 5/5 throughout. There is a resting tremor of the right hand Sensation: Intact to light touch throughout. No extinction with double simultaneous stimulation Deep tendon reflexes: 2+/4+ throughout. Plantar responses are flexor Coordination: Finger to nose, rapid alternating movements and heel to ascencio testing is intact Gait: Not assessed Results - Laboratory Findings CBC and BMP: 09/25/23 05:40 09/25/23 05:40 Abnormal Lab Findings: Abnormal Labs 09/24/23 09/24/23 09/24/23 12:48 12:48 13:40 VBG HCO3 Chloride 111 H BUN 31 H Creatinine 1.39 H Est GFR (CKD-EPI) Glucose 115 H POC Glucose (mg/dL) Albumin 3.1 L Urine Protein Trace H SARS-CoV-2 (PCR) Detected A 09/24/23 09/25/23 09/25/23 16:20 05:35 05:40 VBG HCO3 30 H Chloride BUN Creatinine Est GFR (CKD-EPI) 43 L Glucose 156 H POC Glucose (mg/dL) 129 H Albumin Urine Protein SARS-CoV-2 (PCR) Assessment and Plan Assessment: 1. Reported confusion and weakness in a pt with multiple medical problems and recent Covid 19 infection-likely these symptoms are secondary to the covid Plan: 1. Continue current Parkinson's meds No further neuro intervention is needed at this time. Thank you Time with Patient: Greater than 30
[2023-09-25 16:54] LABS: Glucose,Whole Blood 87 mg/dL (70-110)
[2023-09-25] MEDS: FERROUS SULFATE 325 MG TAB PO SCH (17:19)
[2023-09-25 20:11] LABS: Glucose,Whole Blood 148 mg/dL (70-110)
[2023-09-25] MEDS: ATORVASTATIN 10 MG TAB PO SCH (20:51)
[2023-09-26 05:46] LABS: Glucose,Whole Blood 53 mg/dL (70-110)
[2023-09-26 05:58] LABS: Glucose,Whole Blood 66 mg/dL (70-110)
[2023-09-26 06:15] LABS: Glucose,Whole Blood 78 mg/dL (70-110)
[2023-09-26] MEDS: INSULIN ASPART (NovoLOG) 100 UNIT/ML VIAL SQ SCH ×4 (08:18→21:17)
[2023-09-26 08:30] LABS: Glucose,Whole Blood 168 mg/dL (70-110)
[2023-09-26] MEDS: LOSARTAN 25 MG TAB PO SCH (08:46)
[2023-09-26] MEDS: amLODIPine 10 MG TAB PO SCH (08:46)
[2023-09-26] MEDS: busPIRone HCl 5 MG TAB PO SCH (08:46)
[2023-09-26] MEDS: AMIODARONE 200 MG TAB PO SCH (08:46)
[2023-09-26] MEDS: POTASSIUM CHLORIDE ER 20 MEQ TAB.ER PO SCH (08:46)
[2023-09-26] MEDS: ASPIRIN 81 MG PO SCH (08:46)
[2023-09-26] MEDS: CARBIDOPA-LEVODOPA 25-100 MG 1 EACH TAB PO SCH ×3 (08:46→20:07)
[2023-09-26] MEDS: guaiFENesin 600 MG TABLET.ER PO SCH ×2 (08:46→20:07)
[2023-09-26] MEDS: allopurinoL 300 MG TAB PO SCH (08:46)
[2023-09-26] MEDS: BUMETANIDE 1 MG TAB PO SCH (08:47)
[2023-09-26] MEDS: METOPROLOL TARTRATE 25 MG TAB PO SCH ×2 (08:47→20:07)
[2023-09-26] MEDS: ESCITALOPRAM 10 MG TAB PO SCH (08:47)
[2023-09-26] MEDS: LEVOTHYROXINE 25 MCG TAB PO SCH (08:47)
[2023-09-26] MEDS: oxyBUTYnin chloride 5 MG TAB PO SCH ×3 (08:47→20:07)
[2023-09-26] MEDS: PRIMIDONE 50 MG TAB PO SCH ×2 (08:47→20:07)
[2023-09-26] MEDS: APIXABAN 5 MG TAB PO SCH ×2 (08:47→20:07)
[2023-09-26] MEDS: TAMSULOSIN 0.4 MG CAP.ER.24H PO SCH (09:01)
[2023-09-26 09:05] LABS: MCH 30.1 pg (27.0-32.0); MCHC 30.6 g/dL (32.0-37.0); MCV 98.4 FL (80.0-97.0); Mean Platelet Volume 9.4 FL (9.5-12.2); NRBC Per 100 WBC 0 X 10*3/uL (0.00-0.01); Platelet Count 276 X 10*3/uL (140-440); RBC 3.66 X 10*6/uL (4.10-5.20); RDW 14.2 % (11.5-14.5); WBC 7.45 X 10*3/uL (4.50-10.00)
[2023-09-26 09:24] LABS: BUN/Creat Ratio 16.07 Ratio (12.00-20.00); Blood Urea Nitrogen 24.1 mg/dL (9.0-27.0); Calcium 8.6 mg/dL (8.7-10.3); Carbon Dioxide 31.6 mmol/L (21.6-31.8); Chloride 109 mmol/L (96-109); Glucose 49 mg/dL (70-110); Potassium 4.2 mmol/L (3.5-5.5); Sodium 146 mmol/L (135-145)
[2023-09-26 11:21] LABS: Glucose,Whole Blood 167 mg/dL (70-110)
[2023-09-26] MEDS: INSULIN DETEMIR (LEVEMIR) 100 UNIT/ML SYR SQ SCH ×2 (12:21→21:31)
[2023-09-26] MEDS ORDERED: DEXTROSE 50% SYRINGE 50 ML IVP PRN ×2 (13:27)
[2023-09-26] MEDS: FERROUS SULFATE 325 MG TAB PO SCH (16:32)
[2023-09-26 16:40] LABS: Glucose,Whole Blood 168 mg/dL (70-110)
[2023-09-26] MEDS: ATORVASTATIN 10 MG TAB PO SCH (20:07)
[2023-09-26 20:30] LABS: Glucose,Whole Blood 186 mg/dL (70-110)
--- NOTE | 2023-09-26 20:55 | P.PN ---
Subjective Progress Note Date: 09/26/23 Generalized weakness * 78-year-old patient with past medical history significant for diabetes mellitus, hypertension, hyperlipidemia, history of congestive heart failure systolic dysfunction who was recently admitted discharged on 09/22/2023 been treated for respiratory failure from COVID-19, CHF exacerbation with systolic dysfunction, E coli urinary tract infection, diabetes mellitus type 2 history of Parkinson's disease and chronic atrial fibrillation presents to the emergency department with complains of altered mental status and lethargic. * Patient has been having progressive weakness and has been refusing to go to rehab and was discharged home on oxygen patient has been complaining of gen eralized weakness * Workup initiated in ER include CBC which was essentially normal INR within normal limits venous blood gas obtained showed pCO2 of 50 pH of 7.39 serum chemistry obtained sodium 143 potassium 4.3 BUN 31 creatinine 1.39 urinalysis obtained was negative for UTI patient continues to remain positive for Covid * Patient states while she was at home she was in the restroom trying to get up from the commode however she was very weak, patient stated there and her tried to help her to get up. The next thing she remembers is EMS was called and she is sent to the hospital. * CT brain obtained in ED negative for acute bleed or mass effect no significant abnormality noted. Patient to be admitted to medical floor with consultation to be obtained from neurology since patient is on multiple medications which can contribute to altered mentation as well. 09/26/2023 Patient is seen in follow-up today continues to be lethargic with generalized weakness maintained on 3 L oxygen via nasal cannula. Patient was recently hospitalized and discharged and sent home as she reported she has caregivers that help her in the home. Patient with significant weakness and difficulty ambulating evaluated by physical therapy recommending rehab and patient along with family are now agreeable. Case management following working on ECF with possible [facility]. Patient continues to remain positive for Covid. Patient's blood sugars have been irregular including hyper and hypoglycemia and will adjust medications and continue with Accu-Cheks before meals and at bedtime as well as 2 AM. Encouraged to increase activity as tolerated. Review of systems: Constitutional: reports of fatigue, no fever, or chills Cardiovascular: No reports of chest pain or palpitations Respiratory: reports of continued shortness of breath or cough GI: No reports of nausea, vomiting, or diarrhea, reports not eating much : No reports of dysuria or retention Neurovascular: reports of generalized weakness All medications have been reviewed PHYSICAL EXAMINATION: GENERAL: The patient is alert and oriented x 2 , ill appearance, nasal cannula in place on 2-3 L. HEENT: Pupils are round and equally reacting to light. EOMI Normocephalic, atraumatic. No pharyngeal erythema. No thyromegaly. CARDIOVASCULAR: S1 and S2 present. No murmurs, rubs, or gallops. PULMONARY: Diminished breath sounds bilaterally otherwise Chest is clear to auscultation, no wheezing or crackles. ABDOMEN: Soft, nontender, nondistended, normoactive bowel sounds. No palpable organomegaly. MUSCULOSKELETAL: No joint swelling or deformity. EXTREMITIES: No cyanosis, clubbing, or pedal edema. NEUROLOGICAL: Gross neurological examination did not reveal any focal deficits. resting tremors noted, global weakness SKIN: No rashes. Assessment: * post COVID-19 with generalized weakness and debility with gait dysfunction * History of Parkinson's disease with progressive weakness * recent admission for E coli urinary tract infection completed antibiotic * chronic atrial fibrillation * chronic congestive heart failure systolic dysfunction not in exacerbation * chronic hypoxic respiratory failure * Diabetes mellitus type 2 * Polypharmacy Plan: * In regards to generalized debility and weakness, CT brain negative, MRI brain ordered, patient has nonfocal weakness however readmission with confusion but no other explanation. * In regards to history of congestive heart failure continue home regimen, patient appears at baseline volume status, does not appear hypervolemic as compared to previous hospitalization * In regards to atrial fibrillation, continue amiodarone, continue anticoagulation continue rate control * In regards to recent hospitalization for E. coli urinary tract infection completed course of antibiotic and will not require further antibiotics * In regards to diabetes mellitus type 2, Accu-Cheks before meals at bedtime. Blood sugars have been uncontrolled with hyper and hypoglycemia and will adjust medications. Encouraged oral intake as patient is not eating much * Patient is on multiple medications which can contribute to impaired mentation including oxybutynin, buspirone, Lexapro. Neurology consulted for further recommendations * CODE STATUS is full code * Patient was evaluated by physical therapy occupational therapy and will require rehab on discharge. Patient initially reluctant and refused on last admission although patient and family now agreeable to rehab. Case is following working on accepting ECF and insurance authorization * Possible discharge planning in the next 24-48 hours * Due to multiple complex medical issues, prognosis is guarded The impression and plan of care has been dictated by Maeve Lopez, Nurse Practitioner as directed. Dr. Tiffani MD I have performed a history and examination and MDM of this patient, discussed the same with the dictator, and agree with the dictator's assessment and plan as written ,documented as a scribe. Based on total visit time, I have performed more than 50% of the visit. Objective - Vital Signs Vital signs: Vital Signs Temp 98.1 F 09/26/23 07:15 Pulse 61 09/26/23 07:15 Resp 18 09/26/23 10:26 BP 136/79 09/26/23 07:15 Pulse Ox 96 09/26/23 07:15 FiO2 Intake & Output 09/25/23 09/26/23 09/26/23 18:59 06:59 18:59 Intake Total 600 Balance 600 Intake: Oral 600 Other: Voiding Method Indwelling Catheter Indwelling Catheter - Labs CBC & Chem 7: 09/26/23 05:46 09/26/23 05:46 Labs: Abnormal Lab Results - Last 24 Hours (Table) 09/25/23 09/26/23 09/26/23 Range/Units 20:09 05:35 05:46 RBC 3.66 L (4.10-5.20) X 10*6/uL Hgb 11.0 L (12.0-15.0) g/dL Hct 36.0 L (37.2-46.3) % MCV 98.4 H (80.0-97.0) FL MCHC 30.6 L (32.0-37.0) g/dL MPV 9.4 L (9.5-12.2) FL Sodium (135-145) mmol/L Est GFR (CKD-EPI) (>=60) Glucose (70-110) mg/dL POC Glucose (mg/dL) 148 H 53 L (70-110) mg/dL Calcium (8.7-10.3) mg/dL 09/26/23 09/26/23 09/26/23 Range/Units 05:46 05:56 08:29 RBC (4.10-5.20) X 10*6/uL Hgb (12.0-15.0) g/dL Hct (37.2-46.3) % MCV (80.0-97.0) FL MCHC (32.0-37.0) g/dL MPV (9.5-12.2) FL Sodium 146 H (135-145) mmol/L Est GFR (CKD-EPI) 36 L (>=60) Glucose 49 A* (70-110) mg/dL POC Glucose (mg/dL) 66 L 168 H (70-110) mg/dL Calcium 8.6 L (8.7-10.3) mg/dL 09/26/23 Range/Units 11:20 RBC (4.10-5.20) X 10*6/uL Hgb (12.0-15.0) g/dL Hct (37.2-46.3) % MCV (80.0-97.0) FL MCHC (32.0-37.0) g/dL MPV (9.5-12.2) FL Sodium (135-145) mmol/L Est GFR (CKD-EPI) (>=60) Glucose (70-110) mg/dL POC Glucose (mg/dL) 167 H (70-110) mg/dL Calcium (8.7-10.3) mg/dL Microbiology - Last 24 Hours (Table) 09/24/23 12:45 Blood Culture - Preliminary Blood 09/24/23 12:30 Blood Culture - Preliminary Blood
[2023-09-26] MEDS ORDERED: DEXTROSE 5% IN WATER 1,000 ML IV ONE (20:56)
[2023-09-27 06:12] LABS: Glucose,Whole Blood 123 mg/dL (70-110)
[2023-09-27] MEDS: INSULIN ASPART (NovoLOG) 100 UNIT/ML VIAL SQ SCH ×4 (06:23→21:47)
[2023-09-27] MEDS: INSULIN DETEMIR (LEVEMIR) 100 UNIT/ML SYR SQ SCH ×2 (07:31→21:47)
[2023-09-27] MEDS: CARBIDOPA-LEVODOPA 25-100 MG 1 EACH TAB PO SCH ×3 (07:39→21:47)
[2023-09-27] MEDS: ASPIRIN 81 MG PO SCH (07:39)
[2023-09-27] MEDS: amLODIPine 10 MG TAB PO SCH (07:40)
[2023-09-27] MEDS: POTASSIUM CHLORIDE ER 20 MEQ TAB.ER PO SCH (07:40)
[2023-09-27] MEDS: APIXABAN 5 MG TAB PO SCH ×2 (07:40→21:47)
[2023-09-27] MEDS: METOPROLOL TARTRATE 25 MG TAB PO SCH ×2 (07:40→21:47)
[2023-09-27] MEDS: LOSARTAN 25 MG TAB PO SCH (07:40)
[2023-09-27] MEDS: oxyBUTYnin chloride 5 MG TAB PO SCH ×3 (07:40→21:47)
[2023-09-27] MEDS: LEVOTHYROXINE 25 MCG TAB PO SCH (07:40)
[2023-09-27] MEDS: allopurinoL 300 MG TAB PO SCH (07:40)
[2023-09-27] MEDS: AMIODARONE 200 MG TAB PO SCH (07:40)
[2023-09-27] MEDS: TAMSULOSIN 0.4 MG CAP.ER.24H PO SCH (07:41)
[2023-09-27] MEDS: guaiFENesin 600 MG TABLET.ER PO SCH ×2 (07:41→21:47)
[2023-09-27] MEDS: busPIRone HCl 5 MG TAB PO SCH (07:41)
[2023-09-27] MEDS: ESCITALOPRAM 10 MG TAB PO SCH (07:41)
[2023-09-27] MEDS: PRIMIDONE 50 MG TAB PO SCH ×2 (07:41→21:47)
[2023-09-27] MEDS: BUMETANIDE 1 MG TAB PO SCH (07:41)
[2023-09-27] MEDS ORDERED: ALPRAZolam 0.5 MG TAB PO STA (09:27)
--- NOTE | 2023-09-27 10:58 | MR ---
EXAMINATION TYPE: MR brain wo con DATE OF EXAM: 09/27/2023 COMPARISON: 07/26/2022 HISTORY: Altered mental status, Covid infection. CONTRAST: Performed utilizing 0 mL intravenous Gadobutrol gadolinium contrast. TECHNIQUE: Multiplanar, multiecho imaging on a 3.0 Melissa magnet is performed through the brain. Stud y is performed within 24 hours of arrival to the hospital. The craniovertebral junction is normal. The pituitary is normal. Diffusion-weighted imaging is performed. No abnormal hyperintensity is present to suggest an acute i ntracranial infarct or acute ischemic change. There are scattered punctate areas of hyperintensity on T2 and Inversion Recovery weighted sequences which are non-specific but can be related to microvascular ischemic changes. Covid vasculitis can hav e this appearance. Ventricles and sulci are appropriate for the patient age. IMPRESSION: 1. Nonspecific microvascular ischemic type changes within the deep white matter of the brain. Distrib ution and size of these white matter changes appear stable from the comparison of 07/26/2022.
[2023-09-27 11:17] LABS: Glucose,Whole Blood 136 mg/dL (70-110)
[2023-09-27] MEDS ORDERED: ZINC OXIDE PASTE (Z-GUARD) 1 APPLIC TOPICAL PRN (12:18)
[2023-09-27 13:45] LABS: Magnesium 1.9 mg/dL (1.5-2.4)
[2023-09-27 13:46] LABS: ALT <5 U/L (8-44); AST 8 U/L (13-35); Albumin 2.7 g/dL (3.8-4.9); Albumin/Globulin Ratio 1.23 Ratio (1.60-3.17); Alkaline Phosphatase 42 U/L (41-126); BUN/Creat Ratio 16.71 Ratio (12.00-20.00); Blood Urea Nitrogen 23.4 mg/dL (9.0-27.0); Calcium 8.4 mg/dL (8.7-10.3); Carbon Dioxide 30.6 mmol/L (21.6-31.8); Chloride 106 mmol/L (96-109); Globulin 2.2 g/dL (1.6-3.3); Glucose 136 mg/dL (70-110); Potassium 4.2 mmol/L (3.5-5.5); Sodium 142 mmol/L (135-145); Total Bilirubin <0.2 mg/dL (0.3-1.2); Total Protein 4.9 g/dL (6.2-8.2)
[2023-09-27] MEDS: NYSTATIN 100,000UNIT/GM CREAM 30 GM TUBE TOPICAL SCH ×2 (13:53→21:48)
[2023-09-27 16:22] LABS: Glucose,Whole Blood 140 mg/dL (70-110)
[2023-09-27] MEDS: FERROUS SULFATE 325 MG TAB PO SCH (17:10)
[2023-09-27 21:03] LABS: Glucose,Whole Blood 259 mg/dL (70-110)
[2023-09-27] MEDS: ATORVASTATIN 10 MG TAB PO SCH (21:47)
--- NOTE | 2023-09-28 04:58 | P.PN ---
Subjective Progress Note Date: 09/27/23 Generalized weakness * 78-year-old patient with past medical history significant for diabetes mellitus, hypertension, hyperlipidemia, history of congestive heart failure systolic dysfunction who was recently admitted discharged on 09/22/2023 been treated for respiratory failure from COVID-19, CHF exacerbation with systolic dysfunction, E coli urinary tract infection, diabetes mellitus type 2 history of Parkinson's disease and chronic atrial fibrillation presents to the emergency department with complains of altered mental status and lethargic. * Patient has been having progressive weakness and has been refusing to go to rehab and was discharged home on oxygen patient has been complaining of gen eralized weakness * Workup initiated in ER include CBC which was essentially normal INR within normal limits venous blood gas obtained showed pCO2 of 50 pH of 7.39 serum chemistry obtained sodium 143 potassium 4.3 BUN 31 creatinine 1.39 urinalysis obtained was negative for UTI patient continues to remain positive for Covid * Patient states while she was at home she was in the restroom trying to get up from the commode however she was very weak, patient stated there and her tried to help her to get up. The next thing she remembers is EMS was called and she is sent to the hospital. * CT brain obtained in ED negative for acute bleed or mass effect no significant abnormality noted. Patient to be admitted to medical floor with consultation to be obtained from neurology since patient is on multiple medications which can contribute to altered mentation as well. 09/26/2023 Patient is seen in follow-up today continues to be lethargic with generalized weakness maintained on 3 L oxygen via nasal cannula. Patient was recently hospitalized and discharged and sent home as she reported she has caregivers that help her in the home. Patient with significant weakness and difficulty ambulating evaluated by physical therapy recommending rehab and patient along with family are now agreeable. Case management following working on ECF with possible [place]. Patient continues to remain positive for Covid. Patient's blood sugars have been irregular including hyper and hypoglycemia and will adjust medications and continue with Accu-Cheks before meals and at bedtime as well as 2 AM. Encouraged to increase activity as tolerated. 09/27/2023 Patient is seen in follow-up this morning is awake, alert and oriented x 2-3, baseline. Patient continued on 2 L via nasal cannula and reports to feeling generalized weakness. Patient scheduled to undergo MRI of the brain today which is pending. Patient continues with indwelling Huffman catheter as patient is significantly weak and per nursing staff patient has significant excoriation of bilateral buttock due to incontinence and appears to have yeast in the groin area. Will add nystatin and continue with sink paste and offloading with dayday quent position changes every 2 hours. Encouraged to increase activity as tolerated. Patient with continued weakness and prolonged hospitalization with 2 recent hospitalizations [facility] Awaiting insurance authorization. Review of systems: Constitutional: reports of fatigue, no fever, or chills Cardiovascular: No reports of chest pain or palpitations Respiratory: reports of continued shortness of breath although feels slightly improved GI: No reports of nausea, vomiting, or diarrhea, reports not eating much : No reports of dysuria or retention Neurovascular: reports of generalized weakness All medications have been reviewed PHYSICAL EXAMINATION: GENERAL: The patient is alert and oriented x 2 , ill appearance, nasal cannula in place on 2-3 L. HEENT: Pupils are round and equally reacting to light. EOMI Normocephalic, atraumatic. No pharyngeal erythema. No thyromegaly. CARDIOVASCULAR: S1 and S2 present. No murmurs, rubs, or gallops. PULMONARY: Diminished breath sounds bilaterally otherwise Chest is clear to auscultation, no wheezing or crackles. ABDOMEN: Soft, nontender, nondistended, normoactive bowel sounds. No palpable organomegaly. MUSCULOSKELETAL: No joint swelling or deformity. EXTREMITIES: No cyanosis, clubbing, or pedal edema. NEUROLOGICAL: Gross neurological examination did not reveal any focal deficits. resting tremors noted, global weakness SKIN: No rashes. Excoriation noted to bilateral buttocks due to incontinence Assessment: * post COVID-19 with generalized weakness and debility with gait dysfunction * History of Parkinson's disease with progressive weakness * recent admission for E coli urinary tract infection completed antibiotic * chronic atrial fibrillation * chronic congestive heart failure systolic dysfunction not in exacerbation * chronic hypoxic respiratory failure * Diabetes mellitus type 2 * Polypharmacy Plan: * In regards to generalized debility and weakness, CT brain negative, MRI brain pending for today, patient has nonfocal weakness however readmission with confusion but no other explanation. * In regards to history of congestive heart failure continue home regimen, patient appears at baseline volume status, does not appear hypervolemic as compared to previous hospitalization * In regards to atrial fibrillation, continue amiodarone, continue anticoagulation continue rate control * In regards to recent hospitalization for E. coli urinary tract infection completed course of antibiotic and will not require further antibiotics * In regards to diabetes mellitus type 2, Accu-Cheks before meals at bedtime. Blood sugars have been uncontrolled with hyper and hypoglycemia and will adjust medications. Encouraged oral intake as patient is not eating much * Patient is on multiple medications which can contribute to impaired mentation including oxybutynin, buspirone, Lexapro. Neurology consulted for further recommendations * CODE STATUS is full code * Patient was evaluated by physical therapy occupational therapy and will require rehab on discharge. Patient initially reluctant and refused on last admission although patient and family now agreeable to rehab. Case is following working on [facility] and pending insurance authorization * Possible discharge planning in the next 24-48 hours * Due to multiple complex medical issues, prognosis is guarded The impression and plan of care has been dictated by Maeve Lopez, Nurse Practitioner as directed. Dr. Tiffani MD I have performed a history and examination and MDM of this patient, discussed the same with the dictator, and agree with the dictator's assessment and plan as written ,documented as a scribe. Based on total visit time, I have performed more than 50% of the visit. Objective - Vital Signs Vital signs: Vital Signs Temp 97.9 F 09/27/23 07:11 Pulse 58 L 09/27/23 07:11 Resp 18 09/27/23 10:31 BP 138/76 09/27/23 07:11 Pulse Ox 96 09/27/23 07:11 FiO2 Intake & Output 09/26/23 09/27/23 09/27/23 18:59 06:59 18:59 Intake Total 850 1545 Output Total 700 Balance 150 1545 Intake: Intake, IV Titration 825 Amount Dextrose 5% in Water 1, 825 000 ml @ 75 mls/hr IV . [id number] ONE Rx#:[id number] Oral 850 720 Output: Urine 700 Other: Voiding Method Indwelling Catheter Indwelling Catheter Indwelling Catheter - Labs CBC & Chem 7: 09/26/23 05:46 09/27/23 06:04 Labs: Abnormal Lab Results - Last 24 Hours (Table) 09/26/23 09/26/23 09/27/23 Range/Units 16:39 20:29 06:10 POC Glucose (mg/dL) 168 H 186 H 123 H (70-110) mg/dL 09/27/23 Range/Units 11:16 POC Glucose (mg/dL) 136 H (70-110) mg/dL Microbiology - Last 24 Hours (Table) 09/24/23 12:45 Blood Culture - Preliminary Blood 09/24/23 12:30 Blood Culture - Preliminary Blood
[2023-09-28 05:55] LABS: Glucose,Whole Blood 116 mg/dL (70-110)
[2023-09-28 06:05] LABS: Glucose,Whole Blood 114 mg/dL (70-110)
[2023-09-28] MEDS: INSULIN ASPART (NovoLOG) 100 UNIT/ML VIAL SQ SCH ×2 (06:07→11:53)
[2023-09-28] MEDS: INSULIN DETEMIR (LEVEMIR) 100 UNIT/ML SYR SQ SCH (06:22)
[2023-09-28 08:11] VITALS: RESP 17; TEMP 97.9
[2023-09-28] MEDS: POTASSIUM CHLORIDE ER 20 MEQ TAB.ER PO SCH (10:02)
[2023-09-28] MEDS: TAMSULOSIN 0.4 MG CAP.ER.24H PO SCH (10:02)
[2023-09-28] MEDS: oxyBUTYnin chloride 5 MG TAB PO SCH (10:02)
[2023-09-28] MEDS: CARBIDOPA-LEVODOPA 25-100 MG 1 EACH TAB PO SCH (10:02)
[2023-09-28] MEDS: allopurinoL 300 MG TAB PO SCH (10:02)
[2023-09-28] MEDS: busPIRone HCl 5 MG TAB PO SCH (10:03)
[2023-09-28] MEDS: guaiFENesin 600 MG TABLET.ER PO SCH (10:03)
[2023-09-28] MEDS: LEVOTHYROXINE 25 MCG TAB PO SCH (10:03)
[2023-09-28] MEDS: APIXABAN 5 MG TAB PO SCH (10:03)
[2023-09-28] MEDS: PRIMIDONE 50 MG TAB PO SCH (10:03)
[2023-09-28] MEDS: ASPIRIN 81 MG PO SCH (10:03)
[2023-09-28] MEDS: METOPROLOL TARTRATE 25 MG TAB PO SCH (10:03)
[2023-09-28] MEDS: LOSARTAN 25 MG TAB PO SCH (10:03)
[2023-09-28] MEDS: AMIODARONE 200 MG TAB PO SCH (10:04)
[2023-09-28] MEDS: ESCITALOPRAM 10 MG TAB PO SCH (10:04)
[2023-09-28] MEDS: BUMETANIDE 1 MG TAB PO SCH (10:04)
[2023-09-28] MEDS: amLODIPine 10 MG TAB PO SCH (10:04)
[2023-09-28] MEDS: NYSTATIN 100,000UNIT/GM CREAM 30 GM TUBE TOPICAL SCH (10:13)
--- NOTE | 2023-09-28 10:14 | P.DS ---
Providers Date of admission: 09/24/23 15:25 Expected date of discharge: 09/28/23 Attending physician: Jose Guerrero MD Consults: 09/24/23 16:45 Consult Physician Routine Consulting Provider: Maranda Trinidad Consult Reason/Comments: Parkinson disease, with Worsening mentation Do you want consulting provider notified?: Yes Primary care physician: Alberto Lehman Hospital Course: Final diagnosis post COVID-19 with generalized weakness and debility with gait dysfunction History of Parkinson's disease with progressive weakness recent admission for E coli urinary tract infection completed antibiotic chronic atrial fibrillation chronic congestive heart failure systolic dysfunction not in exacerbation chronic hypoxic respiratory failure Diabetes mellitus type 2 Acute confusion, acute toxic metabolic encephalopathy likely secondary polypharmacy, improving Discharge disposition Patient is being discharged in a stable condition with guarded prognosis to [facility]. Patient will follow-up with Dr. Lehman in the outpatient setting upon discharge. Total time taken is greater than 35 minutes. Hospital course This is a 78-year-old female who was recently admitted with significant weakness and was here hospitalized 1 week ago due to COVID-19 with generalized weakness. Patient was persistent on going home as she has 28/03 caregivers and lives with family. Patient was evaluated physical therapy recommending rehab and patient is now agreeable. Patient was also reluctant on last admission and this admission although family and patient have decided patient needs continued strength and mobility. Patient has received insurance authorization and will be going to [facility]. Patient with excoriated bottom due to incontinence and will continue with indwelling Huffman catheter until more mobile and continue with zinc paste along with nystatin cream on the groin area with frequent position changes and offloading to that area every 2 hours. Patient is a diabetic with uncontrolled hyper and hypoglycemia would recommend Accu-Cheks before meals and at bedtime and 2 AM and will continue with sliding scale as well as long-acting. Patient had some altered mentation on admission likely secondary to polypharmacy and adjustments to medications have been made. Patient to follow- up with primary care provider to further adjust [employer] DEVELOP[employer] OFFICER agents. Please refer to other consultation notes for further HPI. Currently no reports of chest pain, shortness of breath, or palpitations. Patient is afebrile. No reports of nausea or vomiting and patient is tolerating diet. Patient will be discharged to [facility] today. Guarded prognosis. Physical exam: Gen: This is a 78-year-old female who is awake, alert and oriented x 2, baseline, well-developed, well-nourished, elderly appearing HEENT: Head is atraumatic, normocephalic. Pupils equal, round. Sclerae is anicteric. NECK: Supple. No JVD. No lymphadenopathy. No thyromegaly. LUNGS: Diminished breath sounds bilaterally otherwise clear to auscultation. No wheezes or rhonchi. No intercostal retractions. HEART: Regular rate and rhythm. No murmur. ABDOMEN: Soft. Bowel sounds are present. No masses. No tenderness. EXTREMITIES: No pedal edema. No calf tenderness. NEUROLOGICAL: Patient is awake, alert and oriented x2-3. Cranial nerves 2 through 12 are 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. Diffusely weak Please refer to medication reconciliation sheet for a list of medications. The impression and plan of care has been dictated by Maeve Lopez, Nurse Practitioner as directed. Dr. Tiffani MD I have performed a history and examination and MDM of this patient, discussed the same with the dictator, and agree with the dictator's assessment and plan as written ,documented as a scribe. Based on total visit time, I have performed more than 50% of the visit. Patient Condition at Discharge: Stable Plan - Discharge Summary Discharge Rx Participant: Yes New Discharge Prescriptions: No Action Simvastatin [Zocor] 20 mg PO HS Primidone 75 mg PO BID Escitalopram Oxalate [Lexapro] 10 mg PO DAILY Aspirin 81 mg PO DAILY 30 Days #30 tab Bumetanide [BUMEX] 1 mg PO DAILY 30 Days #30 tab amLODIPine [Norvasc] 10 mg PO DAILY 30 Days #30 tab Albuterol Inhaler [Ventolin Hfa Inhaler] 2 puff INHALATION Q6H PRN 30 Days #1 each PRN Reason: Shortness Of Breath Ferrous Sulfate [Iron (65 MG Elemental)] 325 mg PO W/SUPPER busPIRone HCl [Buspar] 5 mg PO DAILY Potassium Chloride [Klor-Con M20] 20 meq PO DAILY Bethanechol Chloride [Urecholine] 5 mg PO DAILY allopurinoL [Zyloprim] 300 mg PO DAILY Apixaban [Eliquis] 5 mg PO BID tab Metoprolol Succinate (ER) [Toprol XL] 25 mg PO BID tab Insulin Lispro [humaLOG Kwikpen] 16 units SQ TID Carbidopa-Levodopa 25-100 mg [Sinemet 25-100 mg] 1 tab PO TID Insulin Glargine,Hum.rec.anlog [Lantus Solostar Pen] 40 units SQ DAILY Insulin Glargine,Hum.rec.anlog [Lantus Solostar Pen] 20 units SQ HS Oxybutynin Xl [Ditropan XL] 5 mg PO TID Levothyroxine Sodium [Synthroid] 25 mcg PO DAILY Estrogens, Conjugated Cream [Premarin Vaginal Cream] 1 applicator VAGINAL DAILY PRN PRN Reason: hormone replacement Amiodarone [Cordarone] 200 mg PO BID 30 Days #60 tab Losartan [Cozaar] 12.5 mg PO DAILY 30 Days #15 tab Tamsulosin [Flomax] 0.4 mg PO PC-BRKFST 30 Days #30 cap guaiFENesin [Mucinex] 600 mg PO Q12HR 5 Days #10 tab Discharge Medication List Simvastatin [Zocor] 20 mg PO HS 07/18/14 [History] Ferrous Sulfate [Iron (65 MG Elemental)] 325 mg PO W/SUPPER 11/10/21 [History] Bethanechol Chloride [Urecholine] 5 mg PO DAILY 07/23/22 [History] Potassium Chloride [Klor-Con M20] 20 meq PO DAILY 07/23/22 [History] Primidone 75 mg PO BID 07/23/22 [History] allopurinoL [Zyloprim] 300 mg PO DAILY 07/23/22 [History] busPIRone HCl [Buspar] 5 mg PO DAILY 07/23/22 [History] Apixaban [Eliquis] 5 mg PO BID tab 08/04/22 [Rx] Metoprolol Succinate (ER) [Toprol XL] 25 mg PO BID tab 08/04/22 [Rx] Carbidopa-Levodopa 25-100 mg [Sinemet 25-100 mg] 1 tab PO TID 09/14/23 [History] Escitalopram Oxalate [Lexapro] 10 mg PO DAILY 09/14/23 [History] Estrogens, Conjugated Cream [Premarin Vaginal Cream] 1 applicator VAGINAL DAILY PRN 09/14/23 [History] Insulin Glargine,Hum.rec.anlog [Lantus Solostar Pen] 20 units SQ HS 09/14/23 [History] Insulin Glargine,Hum.rec.anlog [Lantus Solostar Pen] 40 units SQ DAILY 09/14/23 [History] Insulin Lispro [humaLOG Kwikpen] 16 units SQ TID 09/14/23 [History] Levothyroxine Sodium [Synthroid] 25 mcg PO DAILY 09/14/23 [History] Oxybutynin Xl [Ditropan XL] 5 mg PO TID 09/14/23 [History] Albuterol Inhaler [Ventolin Hfa Inhaler] 2 puff INHALATION Q6H PRN 30 Days #1 each 09/22/23 [Rx] Amiodarone [Cordarone] 200 mg PO BID 30 Days #60 tab 09/22/23 [Rx] Aspirin 81 mg PO DAILY 30 Days #30 tab 09/22/23 [Rx] Bumetanide [BUMEX] 1 mg PO DAILY 30 Days #30 tab 09/22/23 [Rx] Losartan [Cozaar] 12.5 mg PO DAILY 30 Days #15 tab 09/22/23 [Rx] Tamsulosin [Flomax] 0.4 mg PO PC-BRKFST 30 Days #30 cap 09/22/23 [Rx] amLODIPine [Norvasc] 10 mg PO DAILY 30 Days #30 tab 09/22/23 [Rx] guaiFENesin [Mucinex] 600 mg PO Q12HR 5 Days #10 tab 09/22/23 [Rx] Follow up Appointment(s)/Referral(s): Alberto Lehman DO [Primary Care Provider] - 1-2 days
[2023-09-28 11:07] LABS: Glucose,Whole Blood 207 mg/dL (70-110)
[2023-09-28 14:07] VITALS: BP 122/52; PULSE 61
== END 2023-09-28 14:19 ==
LOC: EC 11:58 → 6NMEDSUR 15:25 → 4SSUR 19:32
PROVIDERS: ADMIT Internal Medicine; ATTEND Internal Medicine
DX: R41.0 Disorientation, unspecified (principal); R53.1 Weakness; R62.7 Adult failure to thrive; U09.9 Post COVID-19 condition, unspecified; G92.8 Other toxic encephalopathy; J96.11 Chronic respiratory failure with hypoxia; R26.9 Unspecified abnormalities of gait and mobility; I11.0 Hypertensive heart disease with heart failure; I50.22 Chronic systolic (congestive) heart failure; E11.9 Type 2 diabetes mellitus without complications; G20.A1 Parkinson's disease without dyskinesia, without mention of fluctuations; E78.5 Hyperlipidemia, unspecified; I48.20 Chronic atrial fibrillation, unspecified; Z79.01 Long term (current) use of anticoagulants; Z79.4 Long term (current) use of insulin; Z79.82 Long term (current) use of aspirin; Z79.890 Hormone replacement therapy; Z79.899 Other long term (current) drug therapy
CPT/HCPCS: 96361 ×5; 96372 ×5; 96360; 99285; 36415; 94760; 93005; 97530; 97161; 83880; 80053 ×2; 80048 ×2; 82803; 83605; 83735 ×2; 84484; 85025 ×2; 85027; 85610; 85730; 81003; 87040; 83036; 87636; 71046; 70450; 70551; G0378 ×6

== ENCOUNTER 2023-11-04 13:11 | Emergency (ER) | payer MEDICARE ==
--- NOTE | 2023-11-04 13:38 | ED ---
Weakness HPI - General Source: patient, family, RN notes reviewed <Terra Mariscal - Last Filed: 11/04/23 13:37> - General Source: old records reviewed Mode of arrival: ambulatory Limitations: no limitations <Nabeel Flood - Last Filed: 11/13/23 20:08> - General Stated complaint: SOB Time Seen by Provider: 11/04/23 13:37 - History of Present Illness Initial comments: Patient is a 78-year-old female presenting to the ER with a chief complaint of shortness of breath. This been going on for about a week. Does not normally wear oxygen at home but has started to wear oxygen due to shortness of breath. Patient recently released from [facility] about 2 weeks ago. Also is reporting stomach pain. (Terra Mariscal) - Related Data Home Medications Medication Instructions Recorded Confirmed Simvastatin [Zocor] 20 mg PO HS 07/18/14 09/24/23 Ferrous Sulfate [Iron (65 MG 325 mg PO W/SUPPER 11/10/21 09/24/23 Elemental)] Potassium Chloride [Klor-Con M20] 20 meq PO DAILY 07/23/22 09/24/23 Primidone 75 mg PO BID 07/23/22 09/24/23 allopurinoL [Zyloprim] 300 mg PO DAILY 07/23/22 09/24/23 busPIRone HCl [Buspar] 5 mg PO DAILY 07/23/22 09/24/23 Carbidopa-Levodopa 25-100 mg 1 tab PO TID 09/14/23 09/24/23 [Sinemet 25-100 mg] Escitalopram Oxalate [Lexapro] 10 mg PO DAILY 09/14/23 09/24/23 Insulin Glargine,Hum.rec.anlog 20 units SQ HS 09/14/23 09/24/23 [Lantus Solostar Pen] Levothyroxine Sodium [Synthroid] 25 mcg PO DAILY 09/14/23 09/24/23 Oxybutynin Xl [Ditropan XL] 5 mg PO TID 09/14/23 09/24/23 Previous Rx's Medication Instructions Recorded Apixaban [Eliquis] 5 mg PO BID tab 08/04/22 Metoprolol Succinate (ER) [Toprol 25 mg PO BID tab 08/04/22 XL] Albuterol Inhaler [Ventolin Hfa 2 puff INHALATION Q6H PRN 30 Days 09/22/23 Inhaler] #1 each Aspirin 81 mg PO DAILY 30 Days #30 tab 09/22/23 Bumetanide [BUMEX] 1 mg PO DAILY 30 Days #30 tab 09/22/23 Losartan [Cozaar] 12.5 mg PO DAILY 30 Days #15 tab 09/22/23 Tamsulosin [Flomax] 0.4 mg PO PC-BRKFST 30 Days #30 cap 09/22/23 amLODIPine [Norvasc] 10 mg PO DAILY 30 Days #30 tab 09/22/23 guaiFENesin [Mucinex] 600 mg PO Q12HR 5 Days #10 tab 09/22/23 Acetaminophen Tab [Tylenol] 650 mg PO Q6HR PRN tab 09/28/23 Amiodarone [Cordarone] 200 mg PO DAILY tab 09/28/23 INSULIN ASPART (NovoLOG) [NovoLOG 0 unit SQ ACHS each 09/28/23 (formulary)] Nystatin 100,000Unit/gm Cream 1 applic TOPICAL BID each 09/28/23 [Mycostatin Cream] Furosemide [Lasix] 40 mg PO BID #10 tablet 11/04/23 Allergies Allergy/AdvReac Type Severity Reaction Status Date / Time gabapentin AdvReac Hallucinati Verified 11/04/23 14:24 ons Review of Systems ROS Other: All systems not noted in ROS Statement are negative. <Terra Mariscal - Last Filed: 11/04/23 13:37> ROS Other: All systems not noted in ROS Statement are negative. <Nabeel Flood - Last Filed: 11/13/23 20:08> ROS Statement: Those systems with pertinent positive or pertinent negative responses have been documented in the HPI. Past Medical History Past Medical History: Heart Failure, Diabetes Mellitus, Hyperlipidemia, Hypertension, Pneumonia, Rheumatoid Arthritis (RA) Additional Past Medical History / Comment(s): tremors, renal lithiasis, hemorrhoids(sx done), "has had problems w/low magnesium.anemia. per spouse pt had past cancer "uterine or cervical-had hysterectomy". it was previously charted that pt had hx of ra and cfh spouse not able to verify this, History of Any Multi-Drug Resistant Organisms: ESBL Date of last positivie culture/infection: 09/15/23 MDRO Source:: URINE Past Surgical History: Appendectomy, Hysterectomy, Orthopedic Surgery, Tonsillectomy Additional Past Surgical History / Comment(s): rt total knee repalcement, cataracts, hemmorroidectomy, colonoscopy Past Anesthesia/Blood Transfusion Reactions: No Reported Reaction Additional Past Anesthesia/Blood Transfusion Reaction / Comment(s): per psouse- pt never receieved any blood Past Psychological History: No Psychological Hx Reported Smoking Status: Never smoker Past Alcohol Use History: None Reported Past Drug Use History: None Reported - Past Family History Mother Family Medical History: Diabetes Mellitus Father Additional Family Medical History / Comment(s): brain anuerysm <Terra Mariscal - Last Filed: 11/04/23 13:37> General Exam <Terra Mariscal - Last Filed: 11/04/23 13:37> General appearance: alert, in no apparent distress Head exam: Present: atraumatic, normocephalic, normal inspection Eye exam: Present: normal appearance, PERRL, EOMI. Absent: scleral icterus, conjunctival injection, periorbital swelling ENT exam: Present: normal exam, mucous membranes moist Neck exam: Present: normal inspection. Absent: tenderness, meningismus, lymphadenopathy Respiratory exam: Present: normal lung sounds bilaterally. Absent: respiratory distress, wheezes, rales, rhonchi, stridor Cardiovascular Exam: Present: regular rate, normal rhythm, normal heart sounds. Absent: systolic murmur, diastolic murmur, rubs, gallop, clicks GI/Abdominal exam: Present: soft, normal bowel sounds. Absent: distended, tenderness, guarding, rebound, rigid Extremities exam: Present: normal inspection, full ROM, normal capillary refill. Absent: tenderness, pedal edema, joint swelling, calf tenderness Back exam: Present: normal inspection Neurological exam: Present: alert, oriented X3, CN II-XII intact Psychiatric exam: Present: normal affect, normal mood Skin exam: Present: warm, dry, intact, normal color. Absent: rash <Nabeel Flood - Last Filed: 11/13/23 20:08> - General Exam Comments Initial Comments: Visual Physical Exam Vital signs reviewed General: Well-appearing, nontoxic, no acute distress. Tremor Head: Normocephalic, atraumatic Eyes: PERRLA, EOMI ENT: Airway patent Chest: Nonlabored breathing Skin: No visual rash, normal skin tone Neuro: Alert and oriented 3 Musculoskeletal: No gross abnormalities (Terra Mariscal) Course <Nabeel Flood - Last Filed: 11/13/23 20:08> Vital Signs 11/04/23 11/04/23 11/04/23 14:22 15:47 18:07 Temperature 98.2 F Pulse Rate 67 70 61 Respiratory 24 18 16 Rate Blood Pressure 121/81 116/81 143/77 O2 Sat by Pulse 96 96 94 L Oximetry - Reevaluation(s) Reevaluation #1: Medical record is reviewed (Nabeel Flood) Reevaluation #2: Patient symptoms unchanged (Nabeel Flood) Reevaluation #3: Patient informed of results and questions answered (Nabeel Flood) Reevaluation #4: Was pt. sent in by a medical professional or institution (, PA, GASOLINE FINISHER, urgent care, hospital, or fpc...) When possible be specific @ -no Did you speak to anyone other than the patient for history (EMS, parent, family, police, friend...)? What history was obtained from this source @ -no Did you review nursing and triage notes (agree or disagree)? Why? @ -agree Are old charts reviewed (outside hosp., previous admission, EMS record, old EKG, old radiological studies, urgent care reports/EKG's, fpc records)? Report findings @ -yes Differential Diagnosis (chest pain, altered mental status, abdominal pain women, abdominal pain men, vaginal bleeding, weakness, fever, dyspnea, syncope, headache, dizziness, GI bleed, back pain, seizure, CVA, palpatations, mental health, musculoskeletal)? @ -prior EKG interpreted by me (3pts min.). @ -yes X-rays interpreted by me (1pt min.). @ -yes negative for acute disease CT interpreted by me (1pt min.). @ -no U/S interpreted by me (1pt. min.). @ -no What testing was considered but not performed or refused? (CT, X-rays, U/S, labs)? Why? @ -none What meds were considered but not given or refused? Why? @ -none Did you discuss the management of the patient with other professionals (professionals i.e. , PA, GASOLINE FINISHER, lab, RT, psych nurse, social worker psychiatric, fleet director, teacher, court security officer, dependency case manager)? Give summary @ -no Was smoking cessation discussed for >3mins.? @ -no Was critical care preformed (if so, how long)? @ -no Were there social determinants of health that impacted care today? How? (Alida elessness, low income, unemployed, alcoholism, drug addiction, transportation, low edu. Level, literacy, decrease access to med. care, [facility], rehab)? @ -none Was there de-escalation of care discussed even if they declined (Discuss DNR or withdrawal of care, Hospice)? DNR status @ -no What co-morbidities impacted this encounter? (DM, HTN, Smoking, COPD, CAD, Cancer, CVA, ARF, Chemo, Hep., AIDS, mental health diagnosis, sleep apnea, morbid obesity)? @ -none Was patient admitted / discharged? Hospital course, mention meds given and route, prescriptions, significant lab abnormalities, going to OR and other pertinent info. @ - Undiagnosed new problem with uncertain prognosis? @ -no Drug Therapy requiring intensive monitoring for toxicity (Heparin, Nitro, Insulin, Cardizem)? @ -no Were any procedures done? @ -no Diagnosis/symptom? @ - Acute, or Chronic, or Acute on Chronic? @ -Acute Uncomplicated (without systemic symptoms) or Complicated (systemic symptoms)? @ -Complicated Side effects of treatment? @ -no Exacerbation, Progression, or Severe Exacerbation? @ -exacerbation Poses a threat to life or bodily function? How? (Chest pain, USA, IA, pneumonia, PE, COPD, DKA, ARF, appy, cholecystitis, CVA, Diverticulitis, Homicidal, Suicidal, threat to staff... and all critical care pts) @ -yes (Nabeel Flood) Reevaluation #5: Differential Weakness: Hypoglycemia, shock, sepsis, hyponatremia, anemia, infection, IA, ETOH, adverse medicine reaction, overdose, stroke, this is not meant to be an all-inclusive list. (Nabeel Flood) Medical Decision Making <Terra Mariscal - Last Filed: 11/04/23 13:37> - Lab Data Result diagrams: 11/04/23 15:11 11/04/23 15:11 - EKG Data -: EKG Interpreted by Me (EKG is sinus 69 MD 171 QRS 102 QTc 392) <Nabeel Flood - Last Filed: 11/13/23 20:08> - Medical Decision Making I performed the quick note portion of this chart. Electronically signed by Terra Mariscal PA-C (Terra Mariscal) - Lab Data Lab Results 11/04/23 11/04/23 11/04/23 Range/Units 15:11 15:11 15:11 WBC 8.0 (3.8-10.6) k/uL RBC 3.92 (3.80-5.40) m/uL Hgb 12.2 (11.4-16.0) gm/dL Hct 40.2 (34.0-46.0) % MCV 102.6 H (80.0-100.0) fL MCH 31.1 (25.0-35.0) pg MCHC 30.3 L (31.0-37.0) g/dL RDW 14.4 (11.5-15.5) % Plt Count 229 (150-450) k/uL MPV 7.4 Neutrophils % 81 % Lymphocytes % 8 % Monocytes % 7 % Eosinophils % 2 % Basophils % 0 % Neutrophils # 6.5 (1.3-7.7) k/uL Lymphocytes # 0.7 L (1.0-4.8) k/uL Monocytes # 0.6 (0-1.0) k/uL Eosinophils # 0.1 (0-0.7) k/uL Basophils # 0.0 (0-0.2) k/uL Hypochromasia Marked Macrocytosis Slight PT 10.8 (10.0-12.5) sec INR 1.0 (<1.2) APTT 27.1 (22.0-30.0) sec Sodium (137-145) mmol/L Potassium (3.5-5.1) mmol/L Chloride (98-107) mmol/L Carbon Dioxide (22-30) mmol/L Anion Gap mmol/L BUN (7-17) mg/dL Creatinine (0.52-1.04) mg/dL Est GFR (CKD-EPI)AfAm (>60 ml/min/1.73 sqM) Est GFR (CKD-EPI)NonAf (>60 ml/min/1.73 sqM) Glucose (74-99) mg/dL Plasma Lactic Acid Woo (0.7-2.0) mmol/L Calcium (8.4-10.2) mg/dL Magnesium (1.6-2.3) mg/dL Total Bilirubin (0.2-1.3) mg/dL AST (14-36) U/L ALT (4-34) U/L Alkaline Phosphatase (38-126) U/L Troponin I (0.000-0.034) ng/mL NT-Pro-B Natriuret Pep pg/mL Total Protein (6.3-8.2) g/dL Albumin (3.5-5.0) g/dL Urine Color Colorless Urine Appearance Cloudy H (Clear) Urine pH 5.0 (5.0-8.0) Ur Specific [place] 1.009 (1.001-1.035) Urine Protein Negative (Negative) Urine Glucose (UA) Negative (Negative) Urine Ketones Negative (Negative) Urine Blood Negative (Negative) Urine Nitrite Negative (Negative) Urine Bilirubin Negative (Negative) Urine Urobilinogen <2.0 (<2.0) mg/dL Ur Leukocyte Esterase Negative (Negative) Urine RBC 1 (0-5) /hpf Urine WBC 1 (0-5) /hpf Ur Squamous Epith Cells 4 (0-4) /hpf Hyaline Casts 4 H (0-2) /lpf Urine Mucus Rare H (None) /hpf Influenza Type A (PCR) (Not Detectd) Influenza Type B (PCR) (Not Detectd) RSV (PCR) (Not Detectd) SARS-CoV-2 (PCR) (Not Detectd) 11/04/23 11/04/23 11/04/23 Range/Units 15:11 15:11 15:11 WBC (3.8-10.6) k/uL RBC (3.80-5.40) m/uL Hgb (11.4-16.0) gm/dL Hct (34.0-46.0) % MCV (80.0-100.0) fL MCH (25.0-35.0) pg MCHC (31.0-37.0) g/dL RDW (11.5-15.5) % Plt Count (150-450) k/uL MPV Neutrophils % % Lymphocytes % % Monocytes % % Eosinophils % % Basophils % % Neutrophils # (1.3-7.7) k/uL Lymphocytes # (1.0-4.8) k/uL Monocytes # (0-1.0) k/uL Eosinophils # (0-0.7) k/uL Basophils # (0-0.2) k/uL Hypochromasia Macrocytosis PT (10.0-12.5) sec INR (<1.2) APTT (22.0-30.0) sec Sodium 144 (137-145) mmol/L Potassium 4.3 (3.5-5.1) mmol/L Chloride 108 H (98-107) mmol/L Carbon Dioxide 31 H (22-30) mmol/L Anion Gap 5 mmol/L BUN 53 H (7-17) mg/dL Creatinine 1.70 H (0.52-1.04) mg/dL Est GFR (CKD-EPI)AfAm 33 (>60 ml/min/1.73 sqM) Est GFR (CKD-EPI)NonAf 29 (>60 ml/min/1.73 sqM) Glucose 140 H (74-99) mg/dL Plasma Lactic Acid Woo 1.2 (0.7-2.0) mmol/L Calcium 9.5 (8.4-10.2) mg/dL Magnesium 1.9 (1.6-2.3) mg/dL Total Bilirubin 0.4 (0.2-1.3) mg/dL AST 26 (14-36) U/L ALT 9 (4-34) U/L Alkaline Phosphatase 69 (38-126) U/L Troponin I 0.018 (0.000-0.034) ng/mL NT-Pro-B Natriuret Pep 976 pg/mL Total Protein 6.1 L (6.3-8.2) g/dL Albumin 3.3 L (3.5-5.0) g/dL Urine Color Urine Appearance (Clear) Urine pH (5.0-8.0) Ur Specific [place] (1.001-1.035) Urine Protein (Negative) Urine Glucose (UA) (Negative) Urine Ketones (Negative) Urine Blood (Negative) Urine Nitrite (Negative) Urine Bilirubin (Negative) Urine Urobilinogen (<2.0) mg/dL Ur Leukocyte Esterase (Negative) Urine RBC (0-5) /hpf Urine WBC (0-5) /hpf Ur Squamous Epith Cells (0-4) /hpf Hyaline Casts (0-2) /lpf Urine Mucus (None) /hpf Influenza Type A (PCR) (Not Detectd) Influenza Type B (PCR) (Not Detectd) RSV (PCR) (Not Detectd) SARS-CoV-2 (PCR) (Not Detectd) 11/04/23 Range/Units 15:11 WBC (3.8-10.6) k/uL RBC (3.80-5.40) m/uL Hgb (11.4-16.0) gm/dL Hct (34.0-46.0) % MCV (80.0-100.0) fL MCH (25.0-35.0) pg MCHC (31.0-37.0) g/dL RDW (11.5-15.5) % Plt Count (150-450) k/uL MPV Neutrophils % % Lymphocytes % % Monocytes % % Eosinophils % % Basophils % % Neutrophils # (1.3-7.7) k/uL Lymphocytes # (1.0-4.8) k/uL Monocytes # (0-1.0) k/uL Eosinophils # (0-0.7) k/uL Basophils # (0-0.2) k/uL Hypochromasia Macrocytosis PT (10.0-12.5) sec INR (<1.2) APTT (22.0-30.0) sec Sodium (137-145) mmol/L Potassium (3.5-5.1) mmol/L Chloride (98-107) mmol/L Carbon Dioxide (22-30) mmol/L Anion Gap mmol/L BUN (7-17) mg/dL Creatinine (0.52-1.04) mg/dL Est GFR (CKD-EPI)AfAm (>60 ml/min/1.73 sqM) Est GFR (CKD-EPI)NonAf (>60 ml/min/1.73 sqM) Glucose (74-99) mg/dL Plasma Lactic Acid Woo (0.7-2.0) mmol/L Calcium (8.4-10.2) mg/dL Magnesium (1.6-2.3) mg/dL Total Bilirubin (0.2-1.3) mg/dL AST (14-36) U/L ALT (4-34) U/L Alkaline Phosphatase (38-126) U/L Troponin I (0.000-0.034) ng/mL NT-Pro-B Natriuret Pep pg/mL Total Protein (6.3-8.2) g/dL Albumin (3.5-5.0) g/dL Urine Color Urine Appearance (Clear) Urine pH (5.0-8.0) Ur Specific [place] (1.001-1.035) Urine Protein (Negative) Urine Glucose (UA) (Negative) Urine Ketones (Negative) Urine Blood (Negative) Urine Nitrite (Negative) Urine Bilirubin (Negative) Urine Urobilinogen (<2.0) mg/dL Ur Leukocyte Esterase (Negative) Urine RBC (0-5) /hpf Urine WBC (0-5) /hpf Ur Squamous Epith Cells (0-4) /hpf Hyaline Casts (0-2) /lpf Urine Mucus (None) /hpf Influenza Type A (PCR) Not Detected (Not Detectd) Influenza Type B (PCR) Not Detected (Not Detectd) RSV (PCR) Not Detected (Not Detectd) SARS-CoV-2 (PCR) Not Detected (Not Detectd) Disposition <Terra Mariscal - Last Filed: 11/04/23 13:37> Is patient prescribed a controlled substance at d/c from ED?: No Time of Disposition: 17:30 <Nabeel Flood - Last Filed: 11/13/23 20:08> Clinical Impression: Parkinsons disease, Acute pulmonary edema, Congestive heart failure Disposition: HOME SELF-CARE Condition: Fair Instructions (If sedation given, give patient instructions): Heart Failure (ER), Pulmonary Edema (ED) Prescriptions: Furosemide [Lasix] 40 mg PO BID #10 tablet Referrals: Alberto Lehman DO [Primary Care Provider] - 1-2 days
[2023-11-04 14:44] VITALS: TEMP 98.2
[2023-11-04 16:02] LABS: ALT 9 U/L (4-34); AST 26 U/L (14-36); African American GFR (CKD) 33 (>60 ml/min/1.73 sqM); Albumin 3.3 g/dL (3.5-5.0); Alkaline Phosphatase 69 U/L (38-126); Anion Gap 5 mmol/L; Blood Urea Nitrogen 53 mg/dL (7-17); Calcium 9.5 mg/dL (8.4-10.2); Carbon Dioxide 31 mmol/L (22-30); Chloride 108 mmol/L (98-107); Glucose 140 mg/dL (74-99); Magnesium 1.9 mg/dL (1.6-2.3); Non-African American GFR(CKD) 29 (>60 ml/min/1.73 sqM); Potassium 4.3 mmol/L (3.5-5.1); Sodium 144 mmol/L (137-145); Total Bilirubin 0.4 mg/dL (0.2-1.3); Total Protein 6.1 g/dL (6.3-8.2)
[2023-11-04 16:08] LABS: Basophils % (A) 0 %; Eosinophils # (A) 0.1 k/uL (0-0.7); Eosinophils % (A) 2 %; HCT 40.2 % (34.0-46.0); HGB 12.2 gm/dL (11.4-16.0); Hypochromasia Marked; Lymphocytes # (A) 0.7 k/uL (1.0-4.8); Lymphocytes % (A) 8 %; MCH 31.1 pg (25.0-35.0); MCHC 30.3 g/dL (31.0-37.0); MCV 102.6 fL (80.0-100.0); Macrocytosis Slight; Mean Platelet Volume 7.4; Monocytes # (A) 0.6 k/uL (0-1.0); Monocytes % (A) 7 %; Neutrophils # (A) 6.5 k/uL (1.3-7.7); Neutrophils % (A) 81 %; Platelet Count 229 k/uL (150-450); RBC 3.92 m/uL (3.80-5.40); RDW 14.4 % (11.5-15.5)
[2023-11-04 16:11] LABS: NT-Pro-B-Type Natriuretic Pept 976 pg/mL
[2023-11-04 16:13] LABS: Partial Thromboplastin Time 27.1 sec (22.0-30.0); Prothrombin Time 10.8 sec (10.0-12.5)
--- NOTE | 2023-11-04 16:18 | XR ---
EXAMINATION TYPE: XR chest 2V DATE OF EXAM: 11/04/2023 COMPARISON: 09/24/2023 HISTORY: 78 year-old female shortness of breath, weakness TECHNIQUE: AP and lateral views FINDINGS: Markedly diminished lung volumes. Heart may be enlarged or size could be accentuated by the elevated diaphragm. Diffuse interstitial and vascular density and hazy mid and lower lung opacities. Trace eff usions on the lateral view. IMPRESSION: Severely diminished lung volumes. Correlate for CHF with mild pulmonary edema and trace effusions.
[2023-11-04 17:29] LABS: Appearance,Urine Cloudy (Clear); Bilirubin,Urine Negative (Negative); Blood,Urine Negative (Negative); Color,Urine Colorless; Glucose,Urine (UA) Negative (Negative); Hyaline Casts,Urine 4 /lpf (0-2); Ketones,Urine Negative (Negative); Leukocyte Esterase,Urine Negative (Negative); Mucus,Urine Rare /hpf; Nitrite,Urine Negative (Negative); Protein,Urine Negative (Negative); RBC,Urine 1 /hpf (0-5); Specific Gravity,Urine 1.009 (1.001-1.035); Squamous Epithelial Cell,Urine 4 /hpf (0-4); Urobilinogen,Urine <2.0 mg/dL (<2.0); WBC,Urine 1 /hpf (0-5)
[2023-11-04] MEDS: FUROSEMIDE 10 MG/ML 4 ML VIAL IV STA (17:53)
[2023-11-04 18:16] VITALS: BP 143/77; PULSE 61; RESP 16
== END 2023-11-04 18:45 | disposition home or self-care (01) ==
LOC: EC 13:11
DX: G20.A1 Parkinson's disease without dyskinesia, without mention of fluctuations (principal); I50.1 Left ventricular failure, unspecified; I11.0 Hypertensive heart disease with heart failure; E11.9 Type 2 diabetes mellitus without complications; E78.5 Hyperlipidemia, unspecified; Z79.899 Other long term (current) drug therapy; Z20.822 Contact with and (suspected) exposure to COVID-19; Z79.4 Long term (current) use of insulin; Z88.8 Allergy status to other drugs, medicaments and biological substances
CPT/HCPCS: 36415; 93005; 83880; 80053; 83605; 83735; 84484; 85025; 85610; 85730; 81001; 87636; 71046; 99285; 96374; J1940

== ENCOUNTER → 2023-11-18 | Outpatient (CLI) | payer MEDICARE ==
[2023-11-18 21:24] LABS: ALT 6 U/L (8-44); BUN/Creat Ratio 22.37 Ratio (12.00-20.00); Blood Urea Nitrogen 42.5 mg/dL (9.0-27.0); Calcium 9.9 mg/dL (8.7-10.3); Carbon Dioxide 38.6 mmol/L (21.6-31.8); Chloride 98 mmol/L (96-109); Glucose 134 mg/dL (70-110); Sodium 147 mmol/L (135-145)
[2023-11-18 21:25] LABS: AST 14 U/L (13-35); T4, Free (Free Thyroxine) 1.28 ng/dL (0.80-1.80)
== END | disposition home or self-care (01) ==
LOC: LABWHC1 13:41
PROVIDERS: ATTEND Internal Medicine Interventional Cardiology
DX: I48.91 Unspecified atrial fibrillation (principal); N18.9 Chronic kidney disease, unspecified
CPT/HCPCS: 36415; 80048; 84439; 84443; 84450; 84460

== ENCOUNTER 2024-02-27 13:21 | Inpatient (IN) | payer MEDICARE ==
--- NOTE | 2024-02-27 13:50 | ED ---
General Adult HPI - General Chief complaint: Weakness Stated complaint: Weakness Time Seen by Provider: 02/27/24 13:25 Source: patient, family, EMS, RN notes reviewed Mode of arrival: EMS Limitations: no limitations - History of Present Illness Initial comments: Patient is a 78-year-old female present to the emergency department with general weakness. Symptoms have progressed over the past 1 week. Patient does have history of Parkinson's and chronic leg problems. Patient did have a fall yesterday. Patient now requires 2 people to help her get up to her walker. No isolated area of weakness. No new confusion. Patient is tolerating oral intake . Patient had urine test done 4 days ago that was reported as normal. - Related Data Home Medications Medication Instructions Recorded Confirmed Simvastatin [Zocor] 20 mg PO HS 07/18/14 02/27/24 Primidone 75 mg PO BID 07/23/22 02/27/24 allopurinoL [Zyloprim] 300 mg PO DAILY 07/23/22 02/27/24 busPIRone HCl [Buspar] 5 mg PO DAILY 07/23/22 02/27/24 Carbidopa-Levodopa 25-100 mg 1 tab PO TID-W/MEALS 09/14/23 02/27/24 [Sinemet 25-100 mg] Escitalopram Oxalate [Lexapro] 10 mg PO DAILY 09/14/23 02/27/24 Insulin Glargine,Hum.rec.anlog 20 units SQ HS PRN 09/14/23 02/27/24 [Lantus Solostar Pen] Amiodarone [Cordarone] 100 mg PO DAILY 02/27/24 02/27/24 Bumetanide [BUMEX] 2 mg PO BID 02/27/24 02/27/24 Calcium Carbonate [Calcium] 1,200 mg PO HS 02/27/24 02/27/24 Cyanocobalamin (Vitamin B-12) 1,000 mcg PO DAILY 02/27/24 02/27/24 [Vitamin B-12] Denosumab [Prolia] 60 mg SQ Q180D 02/27/24 02/27/24 Docusate [Colace] 100 mg PO DAILY 02/27/24 02/27/24 Insulin Glargine,Hum.rec.anlog 60 units SQ DAILY 02/27/24 02/27/24 [Lantus Solostar Pen] Insulin Lispro [humaLOG Kwikpen] 16 unit SQ TID-W/MEALS 02/27/24 02/27/24 Levothyroxine Sodium [Synthroid] 75 mcg PO AC-BRKFST 02/27/24 02/27/24 Losartan Potassium 50 mg PO DAILY 02/27/24 02/27/24 Mirabegron [Myrbetriq] 25 mg PO DIRECTED PRN 02/27/24 02/27/24 Nitroglycerin Sl Tabs [Nitrostat] 0.4 mg SUBLINGUAL Q5M PRN 02/27/24 02/27/24 Potassium Chloride ER [K-Dur 20] 20 meq PO DAILY 02/27/24 02/27/24 Simethicone 180 mg PO ACHS PRN 02/27/24 02/27/24 polyethylene glycoL 3350 [Miralax] 17 gm PO DAILY PRN 02/27/24 02/27/24 Previous Rx's Medication Instructions Recorded Apixaban [Eliquis] 5 mg PO BID tab 08/04/22 Metoprolol Succinate (ER) [Toprol 25 mg PO BID tab 08/04/22 XL] Acetaminophen Tab [Tylenol] 650 mg PO Q6HR PRN tab 09/28/23 Allergies Allergy/AdvReac Type Severity Reaction Status Date / Time gabapentin AdvReac Hallucinati Verified 02/27/24 14:23 ons Review of Systems ROS Statement: Those systems with pertinent positive or pertinent negative responses have been documented in the HPI. ROS Other: All systems not noted in ROS Statement are negative. Constitutional: Denies: fever Eyes: Denies: eye pain ENT: Denies: ear pain Respiratory: Denies: cough, dyspnea Cardiovascular: Denies: chest pain Endocrine: Denies: fatigue Gastrointestinal: Denies: abdominal pain Neurological: Reports: as per HPI, weakness. Denies: headache, confusion Past Medical History Past Medical History: Heart Failure, Diabetes Mellitus, Hyperlipidemia, Hypertension, Pneumonia, Rheumatoid Arthritis (RA) Additional Past Medical History / Comment(s): tremors, renal lithiasis, hemorrhoids(sx done), "has had problems w/low magnesium.anemia. per spouse pt had past cancer "uterine or cervical-had hysterectomy". it was previously charted that pt had hx of ra and cfh spouse not able to verify this, History of Any Multi-Drug Resistant Organisms: ESBL Date of last positivie culture/infection: 09/15/23 MDRO Source:: URINE Past Surgical History: Appendectomy, Hysterectomy, Orthopedic Surgery, Tonsillectomy Additional Past Surgical History / Comment(s): rt total knee repalcement, cataracts, hemmorroidectomy, colonoscopy Past Anesthesia/Blood Transfusion Reactions: No Reported Reaction Additional Past Anesthesia/Blood Transfusion Reaction / Comment(s): per psouse- pt never receieved any blood Past Psychological History: No Psychological Hx Reported Smoking Status: Never smoker Past Alcohol Use History: None Reported Past Drug Use History: None Reported - Past Family History Mother Family Medical History: Diabetes Mellitus Father Additional Family Medical History / Comment(s): brain anuerysm General Exam Limitations: no limitations General appearance: alert, in no apparent distress Head exam: Present: normocephalic Eye exam: Present: normal appearance ENT exam: Present: mucous membranes dry Neck exam: Present: normal inspection. Absent: tenderness, meningismus Respiratory exam: Present: normal lung sounds bilaterally Cardiovascular Exam: Present: regular rate, normal rhythm GI/Abdominal exam: Present: soft. Absent: tenderness Extremities exam: Present: normal inspection Neurological exam: Present: alert, oriented X3, CN II-XII intact. Absent: motor sensory deficit Expanded Neurological exam: Present: protecting the airway, other (Resting tremor cons istent with history of Parkinson) Patient oriented to: Present: person, place, time Cranial nerves: EOM's Intact: Normal Motor strength exam: RUE: 5, LUE: 5, RLE: 5, LLE: 5 Eye Response: (4) open spontaneously Motor Response: (6) obeys commands Verbal Response: (5) oriented Psychiatric exam: Present: normal affect, normal mood Skin exam: Present: normal color Course Vital Signs 02/27/24 02/27/24 13:25 17:25 Temperature 98.3 F Pulse Rate 72 60 Respiratory 18 18 Rate Blood Pressure 130/79 192/77 O2 Sat by Pulse 91 L 96 Oximetry EKG Findings - EKG Results: EKG: interpreted by ERMD (Left axis. Q wave V1.), sinus rhythm, normal ST/T Medical Decision Making - Medical Decision Making Was pt. sent in by a medical professional or institution (, PA, AUGER MILL OPERATOR, urgent care, hospital, or assisted...) When possible be specific @ -No Did you speak to anyone other than the patient for history (EMS, parent, family, police, friend...)? What history was obtained from this source @ - and daughter are present and helps provide history including history of Parkinson's Did you review nursing and triage notes (agree or disagree)? Why? @ -I reviewed and agree with nursing and triage notes Were old charts reviewed (outside hosp., previous admission, EMS record, old EKG, old radiological studies, urgent care reports/EKG's, assisted records)? Report findings @ -Previous renal function labs reviewed Differential Diagnosis (chest pain, altered mental status, abdominal pain women, abdominal pain men, vaginal bleeding, weakness, fever, dyspnea, syncope, headache, dizziness, GI bleed, back pain, seizure, CVA, palpatations, mental health, musculoskeletal)? @ -Differential Weakness: Hypoglycemia, shock, sepsis, hyponatremia, anemia, infection, MA, ETOH, adverse medicine reaction, overdose, stroke, this is not meant to be an all-inclusive list. EKG interpreted by me (3pts min.). @ -As above X-rays interpreted by me (1pt min.). @ -Chest x-ray shows possible CHF CT interpreted by me (1pt min.). @ -None done U/S interpreted by me (1pt. min.). @ -None done What testing was considered but not performed or refused? (CT, X-rays, U/S, labs)? Why? @ -None What meds were considered but not given or refused? Why? @ -None Did you discuss the management of the patient with other professionals (professionals i.e. , PA, AUGER M[employer] OPERATOR, lab, RT, psych nurse, mental health social worker, line lead, teacher, access control officer, case checker)? Give summary @ -Case was discussed with Dr. Carlson who will admit covering Dr. Costello Was smoking cessation discussed for >3mins.? @ -No Was critical care preformed (if so, how long)? @ -No Were there social determinants of health that impacted care today? How? (Homelessness, low income, unemployed, alcoholism, drug addiction, transportation, low edu. Level, literacy, decrease access to med. care, prison, rehab)? @ -No Was there de-escalation of care discussed even if they declined (Discuss DNR or withdrawal of care, Hospice)? DNR status @ -No What co-morbidities impacted this encounter? (DM, HTN, Smoking, COPD, CAD, Cancer, CVA, ARF, Chemo, Hep., AIDS, mental health diagnosis, sleep apnea, morbid obesity)? @ -None Was patient admitted / discharged? Hospital course, mention meds given and route, prescriptions, significant lab abnormalities, going to OR and other pertinent info. @ -Patient presents with increased generalized weakness and difficulty walking. Questionable CHF on chest x-ray. BNP will be added. Patient will be admitted with neurology consult. Admission orders written. Undiagnosed new problem with uncertain prognosis? @ -No Drug Therapy requiring intensive monitoring for toxicity (Heparin, Nitro, Insulin, Cardizem)? @ -No Were any procedures done? @ -No Diagnosis/symptom? @ -Weakness, renal insufficiency Acute, or Chronic, or Acute on Chronic? @ -Acute, acute on chronic Uncomplicated (without systemic symptoms) or Complicated (systemic symptoms)? @ -Default Side effects of treatment? @ -No Exacerbation, Progression, or Severe Exacerbation? @ -No Poses a threat to life or bodily function? How? (Chest pain, USA, MA, pneumonia, PE, COPD, DKA, ARF, appy, cholecystitis, CVA, Diverticulitis, Homicidal, Suicidal, threat to staff... and all critical care pts) @ -No - Lab Data Result diagrams: 02/27/24 13:51 02/27/24 13:51 Lab Results 02/27/24 02/27/24 02/27/24 Range/Units 13:51 13:51 13:51 WBC 9.3 (3.8-10.6) k/uL RBC 4.09 (3.80-5.40) m/uL Hgb 12.1 (11.4-16.0) gm/dL Hct 38.8 (34.0-46.0) % MCV 95.0 (80.0-100.0) fL MCH 29.6 (25.0-35.0) pg MCHC 31.2 (31.0-37.0) g/dL RDW 15.5 (11.5-15.5) % Plt Count 204 (150-450) k/uL MPV 8.0 Neutrophils % 75 % Lymphocytes % 14 % Monocytes % 8 % Eosinophils % 1 % Basophils % 0 % Neutrophils # 7.0 (1.3-7.7) k/uL Lymphocytes # 1.3 (1.0-4.8) k/uL Monocytes # 0.8 (0-1.0) k/uL Eosinophils # 0.1 (0-0.7) k/uL Basophils # 0.0 (0-0.2) k/uL PT 10.6 (10.0-12.5) sec INR 1.0 (<1.2) APTT 25.2 (22.0-30.0) sec Sodium 141 (137-145) mmol/L Potassium 3.6 (3.5-5.1) mmol/L Chloride 101 (98-107) mmol/L Carbon Dioxide 36 H (22-30) mmol/L Anion Gap 4 mmol/L BUN 66 H (7-17) mg/dL Creatinine 2.36 H (0.52-1.04) mg/dL Est GFR (CKD-EPI)AfAm 22 (>60 ml/min/1.73 sqM) Est GFR (CKD-EPI)NonAf 19 (>60 ml/min/1.73 sqM) Glucose 136 H (74-99) mg/dL POC Glucose (mg/dL) (70-110) mg/dL POC Glu [employer] Repairer ID Plasma Lactic Acid Woo (0.7-2.0) mmol/L Calcium 11.0 H (8.4-10.2) mg/dL Magnesium 1.9 (1.6-2.3) mg/dL Total Bilirubin 0.5 (0.2-1.3) mg/dL AST 16 (14-36) U/L ALT 7 (4-34) U/L Alkaline Phosphatase 46 (38-126) U/L Troponin I (0.000-0.034) ng/mL Total Protein 6.1 L (6.3-8.2) g/dL Albumin 3.4 L (3.5-5.0) g/dL TSH 8.010 H (0.465-4.680) mIU/L Free T4 1.82 (0.78-2.19) ng/dL Urine Color Urine Appearance (Clear) Urine pH (5.0-8.0) Ur Specific [place] (1.001-1.035) Urine Protein (Negative) Urine Glucose (UA) (Negative) Urine Ketones (Negative) Urine Blood (Negative) Urine Nitrite (Negative) Urine Bilirubin (Negative) Urine Urobilinogen (<2.0) mg/dL Ur Leukocyte Esterase (Negative) 02/27/24 02/27/24 02/27/24 Range/Units 13:51 13:51 16:30 WBC (3.8-10.6) k/uL RBC (3.80-5.40) m/uL Hgb (11.4-16.0) gm/dL Hct (34.0-46.0) % MCV (80.0-100.0) fL MCH (25.0-35.0) pg MCHC (31.0-37.0) g/dL RDW (11.5-15.5) % Plt Count (150-450) k/uL MPV Neutrophils % % Lymphocytes % % Monocytes % % Eosinophils % % Basophils % % Neutrophils # (1.3-7.7) k/uL Lymphocytes # (1.0-4.8) k/uL Monocytes # (0-1.0) k/uL Eosinophils # (0-0.7) k/uL Basophils # (0-0.2) k/uL PT (10.0-12.5) sec INR (<1.2) APTT (22.0-30.0) sec Sodium (137-145) mmol/L Potassium (3.5-5.1) mmol/L Chloride (98-107) mmol/L Carbon Dioxide (22-30) mmol/L Anion Gap mmol/L BUN (7-17) mg/dL Creatinine (0.52-1.04) mg/dL Est GFR (CKD-EPI)AfAm (>60 ml/min/1.73 sqM) Est GFR (CKD-EPI)NonAf (>60 ml/min/1.73 sqM) Glucose (74-99) mg/dL POC Glucose (mg/dL) (70-110) mg/dL POC Glu [employer] Repairer ID Plasma Lactic Acid Woo 2.0 (0.7-2.0) mmol/L Calcium (8.4-10.2) mg/dL Magnesium (1.6-2.3) mg/dL Total Bilirubin (0.2-1.3) mg/dL AST (14-36) U/L ALT (4-34) U/L Alkaline Phosphatase (38-126) U/L Troponin I 0.023 (0.000-0.034) ng/mL Total Protein (6.3-8.2) g/dL Albumin (3.5-5.0) g/dL TSH (0.465-4.680) mIU/L Free T4 (0.78-2.19) ng/dL Urine Color Colorless Urine Appearance Clear (Clear) Urine pH 6.0 (5.0-8.0) Ur Specific [place] 1.010 (1.001-1.035) Urine Protein Negative (Negative) Urine Glucose (UA) Negative (Negative) Urine Ketones Negative (Negative) Urine Blood Negative (Negative) Urine Nitrite Negative (Negative) Urine Bilirubin Negative (Negative) Urine Urobilinogen <2.0 (<2.0) mg/dL Ur Leukocyte Esterase Negative (Negative) 02/27/24 Range/Units 17:07 WBC (3.8-10.6) k/uL RBC (3.80-5.40) m/uL Hgb (11.4-16.0) gm/dL Hct (34.0-46.0) % MCV (80.0-100.0) fL MCH (25.0-35.0) pg MCHC (31.0-37.0) g/dL RDW (11.5-15.5) % Plt Count (150-450) k/uL MPV Neutrophils % % Lymphocytes % % Monocytes % % Eosinophils % % Basophils % % Neutrophils # (1.3-7.7) k/uL Lymphocytes # (1.0-4.8) k/uL Monocytes # (0-1.0) k/uL Eosinophils # (0-0.7) k/uL Basophils # (0-0.2) k/uL PT (10.0-12.5) sec INR (<1.2) APTT (22.0-30.0) sec Sodium (137-145) mmol/L Potassium (3.5-5.1) mmol/L Chloride (98-107) mmol/L Carbon Dioxide (22-30) mmol/L Anion Gap mmol/L BUN (7-17) mg/dL Creatinine (0.52-1.04) mg/dL Est GFR (CKD-EPI)AfAm (>60 ml/min/1.73 sqM) Est GFR (CKD-EPI)NonAf (>60 ml/min/1.73 sqM) Glucose (74-99) mg/dL POC Glucose (mg/dL) 146 H (70-110) mg/dL POC Glu [employer] Repairer ID Ricky schmid Plasma Lactic Acid Woo (0.7-2.0) mmol/L Calcium (8.4-10.2) mg/dL Magnesium (1.6-2.3) mg/dL Total Bilirubin (0.2-1.3) mg/dL AST (14-36) U/L ALT (4-34) U/L Alkaline Phosphatase (38-126) U/L Troponin I (0.000-0.034) ng/mL Total Protein (6.3-8.2) g/dL Albumin (3.5-5.0) g/dL TSH (0.465-4.680) mIU/L Free T4 (0.78-2.19) ng/dL Urine Color Urine Appearance (Clear) Urine pH (5.0-8.0) Ur Specific [place] (1.001-1.035) Urine Protein (Negative) Urine Glucose (UA) (Negative) Urine Ketones (Negative) Urine Blood (Negative) Urine Nitrite (Negative) Urine Bilirubin (Negative) Urine Urobilinogen (<2.0) mg/dL Ur Leukocyte Esterase (Negative) Disposition Clinical Impression: Weakness, Parkinsons disease, TERRENCE (acute kidney injury) Disposition: ADMITTED IP TO THIS HOSP Is patient prescribed a controlled substance at d/c from ED?: No Referrals: Alberto Lehman DO [Primary Care Provider] - 1-2 days Time of Disposition: 18:56
[2024-02-27 14:27] LABS: Partial Thromboplastin Time 25.2 sec (22.0-30.0); Prothrombin Time 10.6 sec (10.0-12.5)
[2024-02-27 14:36] LABS: Sodium 141 mmol/L (137-145)
[2024-02-27 14:37] LABS: ALT 7 U/L (4-34); AST 16 U/L (14-36); African American GFR (CKD) 22 (>60 ml/min/1.73 sqM); Albumin 3.4 g/dL (3.5-5.0); Alkaline Phosphatase 46 U/L (38-126); Anion Gap 4 mmol/L; Blood Urea Nitrogen 66 mg/dL (7-17); Carbon Dioxide 36 mmol/L (22-30); Chloride 101 mmol/L (98-107); Glucose 136 mg/dL (74-99); Magnesium 1.9 mg/dL (1.6-2.3); Non-African American GFR(CKD) 19 (>60 ml/min/1.73 sqM); Potassium 3.6 mmol/L (3.5-5.1); Total Bilirubin 0.5 mg/dL (0.2-1.3); Total Protein 6.1 g/dL (6.3-8.2)
[2024-02-27 14:53] LABS: T4, Free (Free Thyroxine) 1.82 ng/dL (0.78-2.19)
[2024-02-27 14:57] LABS: Basophils % (A) 0 %; Eosinophils # (A) 0.1 k/uL (0-0.7); Eosinophils % (A) 1 %; HCT 38.8 % (34.0-46.0); HGB 12.1 gm/dL (11.4-16.0); Lymphocytes # (A) 1.3 k/uL (1.0-4.8); Lymphocytes % (A) 14 %; MCH 29.6 pg (25.0-35.0); MCHC 31.2 g/dL (31.0-37.0); Monocytes # (A) 0.8 k/uL (0-1.0); Monocytes % (A) 8 %; Neutrophils % (A) 75 %; Platelet Count 204 k/uL (150-450); RBC 4.09 m/uL (3.80-5.40); RDW 15.5 % (11.5-15.5); WBC 9.3 k/uL (3.8-10.6)
--- NOTE | 2024-02-27 15:11 | CT ---
EXAMINATION TYPE: CT brain wo con DATE OF EXAM: 02/27/2024 COMPARISON: 09/24/2023 HISTORY: 78-year-old female with WEAKNESS TECHNIQUE: Examination was done in axial plane without intravenous contrast. Coronal and sagittal r econstructions performed. CT DLP: 1125.4 mGycm Automated exposure control for dose reduction was used. FINDINGS: There is no evidence of acute intracranial hemorrhage, acute ischemic changes, mass, mass-effect, or extra-axial fluid collection. There is no effacement of cerebral sulci or basal subarachnoid cister ns. There is no hydrocephalus. There is no midline shift. [place]-white matter distinction is preserv ed. Mild age-related volume loss overlying the bilateral cerebral convexities. Normal variation benign hy perostosis frontalis interna. Benign basal ganglia calcifications on both sides. Leftward nasal septal deviation. Paranasal sinuses and mastoid air cells well pneumatized. Orbits and globes are intact. IMPRESSION: No acute intracranial abnormality seen.
--- NOTE | 2024-02-27 15:24 | XR ---
EXAMINATION TYPE: XR chest 2V DATE OF EXAM: 02/27/2024 2:57 PM CLINICAL INDICATION:Female, 78 years old with history of Weakness; PH[facility] COMPARISON: Chest radiographs from 11/04/2023 TECHNIQUE: XR chest 2V Frontal and lateral views of the chest. FINDINGS: Lungs/Pleura: There is no evidence of pleural effusion, focal consolidation, or pneumothorax. Pulmonary vascularity: Pulmonary vascular congestion. Heart/mediastinum: Cardiomediastinal silhouette is enlarged and stable. Musculoskeletal: No acute osseous pathology. Other findings: None Lines/Tubes: IMPRESSION: Cardiomegaly and mild pulmonary vascular congestion. Correlate with BNP for congestive heart failure.
[2024-02-27] MEDS ORDERED: NON FORMULARY DRUG (Mirabegron [Myrbetriq] 25 MG Tab.Er.24h) PO PRN (16:07)
[2024-02-27] MEDS ORDERED: NITROGLYCERIN SL TABS 0.4 MG TAB SUBLINGUAL PRN (16:07)
[2024-02-27] MEDS ORDERED: SIMETHICONE 80 MG CHEWABLE PO PRN (16:07)
[2024-02-27] MEDS ORDERED: DEXTROSE 50% SYRINGE 50 ML IVP PRN ×2 (16:10)
[2024-02-27 16:44] LABS: Appearance,Urine Clear (Clear); Bilirubin,Urine Negative (Negative); Blood,Urine Negative (Negative); Color,Urine Colorless; Glucose,Urine (UA) Negative (Negative); Ketones,Urine Negative (Negative); Leukocyte Esterase,Urine Negative (Negative); Nitrite,Urine Negative (Negative); Protein,Urine Negative (Negative); Urobilinogen,Urine <2.0 mg/dL (<2.0)
[2024-02-27 17:09] LABS: Glucose,Whole Blood 146 mg/dL (70-110)
[2024-02-27] MEDS: CARBIDOPA-LEVODOPA 25-100 MG 1 EACH TAB PO SCH (17:27)
[2024-02-27] MEDS: INSULIN ASPART (NovoLOG) 100 UNIT/ML VIAL SQ SCH ×2 (17:28→19:45)
[2024-02-27] MEDS: THIAMINE 100 MG TAB PO SCH (17:33)
[2024-02-27] MEDS ORDERED: NALOXONE 0.4 MG/ML 1 ML VIAL IV PRN (18:56)
[2024-02-27] MEDS: PRIMIDONE 50 MG TAB PO SCH (20:57)
[2024-02-27] MEDS: ATORVASTATIN 10 MG TAB PO SCH (20:57)
[2024-02-27] MEDS: APIXABAN 5 MG TAB PO SCH (20:57)
[2024-02-27] MEDS: METOPROLOL SUCCINATE (ER) 25 MG TAB.ER.24H PO SCH (20:58)
[2024-02-27 21:16] LABS: Glucose,Whole Blood 185 mg/dL (70-110)
[2024-02-27] MEDS: INSULIN DETEMIR (LEVEMIR) 100 UNIT/ML SYR SQ SCH (21:23)
--- NOTE | 2024-02-27 22:48 | HP ---
HISTORY AND PHYSICAL CHIEF COMPLAINT: Weakness. HISTORY OF PRESENT ILLNESS: This is a 78-year-old woman with a past medical history of multiple medical problems including Parkinson's, being followed by Dr. Chaka Celaya and Dr. Venkata Lynn in the outpatient. She is complaining of increasing weakness over the past several days. The patient was apparently seeing Dr. So who increased the dosage, but the patient developed some jerking reactions and the dose was brought back to the previous one. There is no history of any fever, rigors, or chills. The patient had acute on chronic renal failure also. There is no history of any headache or loss of consciousness. PAST MEDICAL HISTORY: Reviewed including Parkinson's. HOME MEDICATIONS: Again reviewed include Synthroid, dose and rest of medications reviewed. ALLERGIES: Gabapentin. FAMILY HISTORY: History of diabetes, brain aneurysm. Social history and review of systems could not be taken because of the patient's change in baseline mental status. PHYSICAL EXAMINATION: VITAL SIGNS: Pulse 72, blood pressure 130/70, respirations 18. GENERAL: The patient is mildly confused. HEENT: Oral mucosa is dry. NECK: No JVD. CARDIOVASCULAR: S1, S2. RESPIRATIONS: Clear to auscultation. ABDOMEN: Soft, nontender. LEGS: No edema, no swelling. NERVOUS SYSTEM: Parkinsonian features and diffuse tremors also present. SKIN: No ulcer, rash, bleeding. JOINTS: No active deforming arthropathy. LABORATORY DATA: CBC within normal limits. Creatinine 2.6. ASSESSMENT: 1. Increasing weakness and gait dysfunction, possibly parkinsonian exacerbation. 2. History of Parkinson's. 3. Acute on chronic renal failure. 4. Hypercalcemia. 5. History of CHF. 6. Diabetes mellitus type 2. 7. Hypertension. 8. Hyperlipidemia. 9. Multiple medical issues. RECOMMENDATIONS AND DISCUSSION: This 78-year-old woman presented with multiple complex medical issues, we will monitor the patient closely. Continue current management, continue symptomatic treatment. Cautious IV hydration. Otherwise we will avoid nephrotoxic medications, neurology consultation, PT OT evaluation. The family would like the patient go home once improvement at this time. We will continue to monitor. This patient will require more than 2 nights stay of evaluation treatment because of complicated medical conditions and so recommended full admit at this time. MMODL / IJN: [id number] /
[2024-02-28 01:41] LABS: Creatine Kinase 54 U/L (26-186); NT-Pro-B-Type Natriuretic Pept 477 pg/mL (0-450)
[2024-02-28 08:31] LABS: Glucose,Whole Blood 105 mg/dL (70-110)
[2024-02-28 10:26] LABS: Basophils # (A) 0.01 X 10*3/uL (0.00-0.10); Basophils % (A) 0.1 %; Eosinophils # (A) 0.14 X 10*3/uL (0.04-0.35); Eosinophils % (A) 1.7 %; HCT 37.5 % (37.2-46.3); HGB 11.4 g/dL (12.0-15.0); Lymphocytes # (A) 1.95 X 10*3/uL (0.90-5.00); Lymphocytes % (A) 23.1 %; MCH 29.3 pg (27.0-32.0); MCHC 30.4 g/dL (32.0-37.0); MCV 96.4 FL (80.0-97.0); Mean Platelet Volume 9.9 FL (9.5-12.2); Monocytes # (A) 0.91 X 10*3/uL (0.20-1.00); Monocytes % (A) 10.8 %; NRBC Per 100 WBC 0 X 10*3/uL (0.00-0.01); Neutrophils # (A) 5.41 X 10*3/uL (1.80-7.70); Neutrophils % (A) 64.1 %; Platelet Count 209 X 10*3/uL (140-440); RBC 3.89 X 10*6/uL (4.10-5.20); RDW 15.5 % (11.5-14.5); WBC 8.44 X 10*3/uL (4.50-10.00)
[2024-02-28 10:36] LABS: ALT 6 U/L (8-44); AST 14 U/L (13-35); Albumin 3.4 g/dL (3.8-4.9); Albumin/Globulin Ratio 1.42 Ratio (1.60-3.17); Alkaline Phosphatase 50 U/L (41-126); BUN/Creat Ratio 22.62 Ratio (12.00-20.00); Blood Urea Nitrogen 58.8 mg/dL (9.0-27.0); Calcium 10.3 mg/dL (8.7-10.3); Carbon Dioxide 36.3 mmol/L (21.6-31.8); Chloride 101 mmol/L (96-109); Globulin 2.4 g/dL (1.6-3.3); Glucose 114 mg/dL (70-110); Potassium 3.8 mmol/L (3.5-5.5); Sodium 145 mmol/L (135-145); Total Bilirubin <0.2 mg/dL (0.3-1.2); Total Protein 5.8 g/dL (6.2-8.2)
--- NOTE | 2024-02-28 11:14 | P.NPCON ---
History of Present Illness - Reason for Consult hyponatremia - History of Present Illness patient is a 78-year-old female with history of diabetes, hypertension who was admitted to the hospital with complaints of significant weakness. Patient stated that her legs just gave out. She denied any lightheadedness or dizziness. BP has not been low. Labs showed serum creatinine of 2.36 mg/dL. Patient denies any previous history of kidney diseases. Calcium was 11.0 and repeat calcium is 10.3. potassium was 3.6. Patient is maintained on Bumex at home along with losartan. Currently on hold. She is also maintained on Prolia and calcium supplements. Underlying history of chronic kidney disease with previous creatinine at 1.4-1.7 mg/dL in September and October 2023. Review of Systems as per HPI Past Medical History Past Medical History: Heart Failure, Diabetes Mellitus, Hyperlipidemia, Hypertension, Pneumonia, Rheumatoid Arthritis (RA) Additional Past Medical History / Comment(s): tremors, renal lithiasis, hemorrhoids(sx done), "has had problems w/low magnesium.anemia. per spouse pt had past cancer "uterine or cervical-had hysterectomy". it was previously charted that pt had hx of ra and cfh spouse not able to verify this, History of Any Multi-Drug Resistant Organisms: ESBL Date of last positivie culture/infection: 09/15/23 MDRO Source:: URINE Past Surgical History: Appendectomy, Hysterectomy, Orthopedic Surgery, Tonsillectomy Additional Past Surgical History / Comment(s): rt total knee repalcement, cataracts, hemmorroidectomy, colonoscopy Past Anesthesia/Blood Transfusion Reactions: No Reported Reaction Additional Past Anesthesia/Blood Transfusion Reaction / Comment(s): per psouse- pt never receieved any blood Past Psychological History: No Psychological Hx Reported Smoking Status: Never smoker Past Alcohol Use History: None Reported Past Drug Use History: None Reported - Past Family History Mother Family Medical History: Diabetes Mellitus Father Additional Family Medical History / Comment(s): brain anuerysm Medications and Allergies Home Medications Medication Instructions Recorded Confirmed Type Simvastatin [Zocor] 20 mg PO HS 07/18/14 02/27/24 History Primidone 75 mg PO BID 07/23/22 02/27/24 History allopurinoL [Zyloprim] 300 mg PO DAILY 07/23/22 02/27/24 History busPIRone HCl [Buspar] 5 mg PO DAILY 07/23/22 02/27/24 History Apixaban [Eliquis] 5 mg PO BID tab 08/04/22 02/27/24 Rx Metoprolol Succinate (ER) [Toprol 25 mg PO BID tab 08/04/22 02/27/24 Rx XL] Carbidopa-Levodopa 25-100 mg 1 tab PO TID-W/MEALS 09/14/23 02/27/24 History [Sinemet 25-100 mg] Escitalopram Oxalate [Lexapro] 10 mg PO DAILY 09/14/23 02/27/24 History Insulin Glargine,Hum.rec.anlog 20 units SQ HS PRN 09/14/23 02/27/24 History [Lantus Solostar Pen] Acetaminophen Tab [Tylenol] 650 mg PO Q6HR PRN tab 09/28/23 02/27/24 Rx Amiodarone [Cordarone] 100 mg PO DAILY 02/27/24 02/27/24 History Bumetanide [BUMEX] 2 mg PO BID 02/27/24 02/27/24 History Calcium Carbonate [Calcium] 1,200 mg PO HS 02/27/24 02/27/24 History Cyanocobalamin (Vitamin B-12) 1,000 mcg PO DAILY 02/27/24 02/27/24 History [Vitamin B-12] Denosumab [Prolia] 60 mg SQ Q180D 02/27/24 02/27/24 History Docusate [Colace] 100 mg PO DAILY 02/27/24 02/27/24 History Insulin Glargine,Hum.rec.anlog 60 units SQ DAILY 02/27/24 02/27/24 History [Lantus Solostar Pen] Insulin Lispro [humaLOG Kwikpen] 16 unit SQ TID-W/MEALS 02/27/24 02/27/24 History Levothyroxine Sodium [Synthroid] 75 mcg PO AC-BRKFST 02/27/24 02/27/24 History Losartan Potassium 50 mg PO DAILY 02/27/24 02/27/24 History Mirabegron [Myrbetriq] 25 mg PO DIRECTED PRN 02/27/24 02/27/24 History Nitroglycerin Sl Tabs [Nitrostat] 0.4 mg SUBLINGUAL Q5M PRN 02/27/24 02/27/24 History Potassium Chloride ER [K-Dur 20] 20 meq PO DAILY 02/27/24 02/27/24 History Simethicone 180 mg PO ACHS PRN 02/27/24 02/27/24 History polyethylene glycoL 3350 [Miralax] 17 gm PO DAILY PRN 02/27/24 02/27/24 History Allergies Allergy/AdvReac Type Severity Reaction Status Date / Time gabapentin AdvReac Hallucinati Verified 02/27/24 14:23 ons Physical Exam Vitals: Vital Signs Temp Pulse Resp BP Pulse Ox 02/28/24 06:30 57 L 15 148/85 97 02/28/24 05:09 58 L 16 146/81 98 02/28/24 03:49 97.5 F L 58 L 17 181/110 97 02/28/24 02:31 60 18 165/106 02/28/24 01:13 18 153/90 02/28/24 00:17 58 L 18 132/62 96 02/27/24 21:03 72 18 114/52 97 02/27/24 19:48 63 18 150/80 97 02/27/24 17:25 60 18 192/77 96 02/27/24 13:25 98.3 F 72 18 130/79 91 L patient is awake, comfortable, no acute distress. Examination of the heart S1 and S2 Examination of the lungs bilateral breath sounds are heard Abdomen is soft, suprapubic tenderness noted with possibly full bladder as well. Examination of the lower extremities shows no significant edema. [employer] exam 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 Results - Lab Results Most recent lab results Calcium 10.3 mg/dL (8.7-10.3) 02/28/24 06:46 Magnesium 1.9 mg/dL (1.6-2.3) 02/27/24 13:51 02/28/24 06:46 02/28/24 06:46 Assessment and Plan Assessment: 1. Acute kidney injury, rule out urine retention. Also component of hyp ovolemia and hypercalcemia contributing to acute kidney injury.. Diuretics currently on hold. UA is quite unremarkable. Check ultrasound of the kidneys. 2. Hypercalcemia associated with use of calcium supplements. Currently improved. 3. Type 2 diabetes 4. Hypertension with elevated blood pressures. maintained on Cozaar and metoprolol. Heart rate is in the 50s to 60s. 5. History of A. fib maintained on amiodarone 6. Hypothyroidism Plan: check bladder scan and insert Huffman catheter of significant urine retention noted. Hold Cozaar if there is no obstructive uropathy and identified as cause of acute kidney injury. Discontinue calcium supplements check TSH Repeat labs in a.m. Add parameters for Toprol due to borderline heart rate. Thank you for the consultation. We will continue to follow the patient with you during her hospitalization.
[2024-02-28 11:39] LABS: Glucose,Whole Blood 82 mg/dL (70-110)
[2024-02-28] MEDS: LOSARTAN 50 MG TAB PO SCH (11:56)
[2024-02-28] MEDS: DOCUSATE 100 MG CAP PO SCH (11:57)
[2024-02-28] MEDS: allopurinoL 300 MG TAB PO SCH (11:58)
[2024-02-28] MEDS: LEVOTHYROXINE 75 MCG TAB PO SCH (11:58)
[2024-02-28] MEDS: MULTIVITAMINS, THERA 1 EACH TAB PO SCH (11:59)
[2024-02-28] MEDS: CYANOCOBALAMIN 500 MCG TAB PO SCH (11:59)
[2024-02-28] MEDS: ESCITALOPRAM 10 MG TAB PO SCH (11:59)
[2024-02-28] MEDS: busPIRone HCl 5 MG TAB PO SCH (11:59)
[2024-02-28] MEDS: FOLIC ACID 1 MG TAB PO SCH (11:59)
[2024-02-28] MEDS: AMIODARONE 100 MG TAB PO SCH (12:00)
[2024-02-28] MEDS: INSULIN DETEMIR (LEVEMIR) 100 UNIT/ML SYR SQ SCH (13:12)
--- NOTE | 2024-02-28 13:16 | PN ---
PROGRESS NOTE DATE OF SERVICE: 02/28/2024 SUBJECTIVE: This is a 78-year-old woman, who was admitted with weakness and possible parkinsonian exacerbation, also had acute renal failure. The patient also had hypercalcemia possibly secondary to calcium supplementation. Currently, calcium has improved after holding and Dr. Ball from Nephrology following the patient closely. Neurology evaluation in progress. The patient is slightly drowsy at this time. PAST MEDICAL HISTORY: Reviewed. REVIEW OF SYSTEMS: Could not be taken. CURRENT MEDICATIONS: Reviewed include Eliquis, dose and rest of medications noted. PHYSICAL EXAMINATION: VITAL SIGNS: Pulse is 57, blood pressure 140/85, respirations 15. CHEST: A few scattered rhonchi. CARDIOVASCULAR: S1, S2. ABDOMEN: Soft. NERVOUS SYSTEM: Diffusely weak. LABORATORY DATA: Noted. Creatinine is 2.6 today. Rest of the labs are noted. ASSESSMENT: 1. Increasing weakness and gait dysfunction, possibly parkinsonian exacerbation. 2. Acute on chronic renal failure with acute tubular necrosis. 3. History of Parkinson's. 4. Hypercalcemia possibly secondary to supplementation. 5. History of congestive heart failure. 6. Diabetes mellitus, type 2. 7. Hypertension. 8. Hyperlipidemia. 9. Multiple complex medical issues. RECOMMENDATIONS: Recommend to continue current management and continue symptomatic treatment. Otherwise, at this time, I would monitor the creatinine closely and await neurology evaluation. Nephrology input appreciated. The chest x-ray was reviewed. We will obtain the PT, OT evaluation. Family would like the patient to go home and see orders for further details. Further recommendations to follow. DVT prophylaxis. MMODL / IJN: [id number] /
--- NOTE | 2024-02-28 13:19 | US ---
EXAMINATION TYPE: US kidneys/renal and bladder DATE OF EXAM: 02/28/2024 COMPARISON: 11/22/2021. CLINICAL INDICATION: Female, 78 years old with history of joseph; Abnormal labs EXAM MEASUREMENTS: Right Kidney: 11.5 x 5.1 x 4.6 cm Left Kidney: 9.2 x 4.1 x 5.2 cm Limited due to patient body habitus and unable to position Right Kidney: limited, no prominent masses, lesion or hydronephrosis visualized at time of scan Left Kidney: Lower mid cortical anechoic lesion = 0.7 x 0.8 x 0.5 cm , appears smaller in size compar ed to contralateral kidney Bladder: Distended, anechoic Bilateral Jets not seen Atrophic kidney no suspicious lesions. Scattered hypoechoic probable cyst in the left kidney. IMPRESSION: 1. Limited exam no evidence for hydronephrosis. 2. Atrophic kidneys.
[2024-02-28 17:01] LABS: Glucose,Whole Blood 126 mg/dL (70-110)
[2024-02-28 20:20] LABS: Glucose,Whole Blood 231 mg/dL (70-110)
[2024-02-29 06:19] LABS: Glucose,Whole Blood 110 mg/dL (70-110)
--- NOTE | 2024-02-29 06:59 | P.CNNES ---
History of Present Illness Consult date: 02/28/24 Requesting physician: Evelio Duckworth Reason for Consult: Parkinson's weakness History of Present Illness: Patient is a 78-year-old right-handed female came to the hospital by ambulance yesterday at 1:21 PM. as per EMS flow sheet, family has mentioned that patient has been decreasing in activity and level of alertness in the last few days. Per family, the patient has been struggling with increasing shaking from Parkinson's. Patient mentioned that she fell last p.m. while in the bathroom, denies hitting her head, denies any head or neck or back pain. Patient is on Eliquis. Per family, the patient has been eating and drinking daily. Patient denied any dizziness. Patient denied any chest pain or shortness of breath. Patient remained alert and oriented 3-4 during transport. Patient's vitals at the scene was blood pressure 129/60, pulse rate 71 respiration 18 and saturation 93%, blood sugar 108. Vital signs on arrival blood pressure 130/79, pulse rate 72 temperature 98.3. Blood test shows normal CBC, PT PTT, normal electrolytes. BUN 66 creatinine 2.36. Hepatic panel is normal, TSH is 8.01, free T4 is normal 1.82. UA negative, influenza, RSV and coronavirus PCR negative. EKG showed sinus rhythm. CT head revealed no acute intracranial process seen. I personally reviewed CT head, agree with the findings. Chest x-ray revealed cardiomegaly and mild pulmonary vascular congestion. Correlate with BNP for congestive heart failure Patient says that she has history of Parkinson disease for around 10+ years and follows up with Dr. Lynn. Patient is hard of hearing. Patient states that she came because she was falling, legs giving out on her. She fell 3 times in the last 3 days. She states that she has been using walker for ambulation but does not know for how long. She lives with her . She says that she was in the bathroom, standing, tried to wipe herself, and her legs jerked and she went down, although she was holding a grabbing bar. She fell twice this weekend. I spoke to patient's daughter Kanchan on the phone, who mentioned that patient was diagnosed with Parkinson's last January in 2022. She follows up with Dr. Lynn. Patient has been having hard time getting up and walking with walker and also uses a gait belt. She was sitting on the edge of the bed, jerked and fell back. While walking with her walker, and her arms on the walker, the arms flop down. She has hard time walking usually can with one person for assistance. Now requires 2 people to assist. Right leg gave out and she fell in the bathroom floor. Did talk to the family doctor, who could not see her and recommended to go to the ER. Patient has recently been congested for her thyroid medications and sometimes have trouble with a potassium. The trouble with ambulation is going on for last 1 week getting worse. Patient takes Sinemet 3 tablets a day, and Dr. Lynn increased the dose of Sinemet to 4 times a day but patient started getting worse. They were recommended to go back to 3 pills per day. Patient's daughter denies any history of dementia symptoms she makes her own decisions. She does have some trouble with incontinence, leaking of urine. MRI of the cervical spine from 05/17/2018 showed spinal stenosis appears most significant at C6 7 due to posterior disc herniation. There is multilevel degenerative disc disease. Difficult to exclude signal cord changes especially at C6 7. I personally reviewed MRI, agree with the findings. Patient takes Eliquis 5 mg twice daily, allopurinol, BuSpar, primidone 75 mg twice daily simvastatin Sinemet 25/100 3 times daily Bumex, B12 backtracked and amiodarone. Review of Systems Constitutional: Denies chills, Denies fever Eyes: denies blurred vision, denies diplopia, denies pain Ears: bilateral: decreased hearing, deny: earache Ears, nose, mouth and throat: Reports headache, Denies sore throat, Denies vertigo Cardiovascular: Denies chest pain, Denies lightheadedness, Denies shortness of breath Respiratory: Reports excessive sputum, Denies cough Gastrointestinal: Reports constipation, Denies abdominal pain, Denies diarrhea, Denies nausea, Denies vomiting Genitourinary: Reports mixed incontinence, Denies dysuria Musculoskeletal: Denies low back pain, Denies neck pain Integumentary: Denies pruritus, Denies rash Neurological: Reports as per HPI Psychiatric: Denies anxiety, Denies depression Past Medical History Past Medical History: Heart Failure, Diabetes Mellitus, Hyperlipidemia, Hypertension, Pneumonia, Rheumatoid Arthritis (RA) Additional Past Medical History / Comment(s): tremors, renal lithiasis, hemor rhoids(sx done), "has had problems w/low magnesium.anemia. per spouse pt had past cancer "uterine or cervical-had hysterectomy". it was previously charted that pt had hx of ra and cfh spouse not able to verify this, History of Any Multi-Drug Resistant Organisms: ESBL Date of last positivie culture/infection: 09/15/23 MDRO Source:: URINE Past Surgical History: Appendectomy, Hysterectomy, Orthopedic Surgery, Tonsillectomy Additional Past Surgical History / Comment(s): rt total knee repalcement, cataracts, hemmorroidectomy, colonoscopy Past Anesthesia/Blood Transfusion Reactions: No Reported Reaction Additional Past Anesthesia/Blood Transfusion Reaction / Comment(s): per psouse- pt never receieved any blood Past Psychological History: No Psychological Hx Reported Smoking Status: Never smoker Past Alcohol Use History: None Reported Past Drug Use History: None Reported - Past Family History Mother Family Medical History: Diabetes Mellitus Father Additional Family Medical History / Comment(s): brain anuerysm Medications and Allergies Home Medications Medication Instructions Recorded Confirmed Type Simvastatin [Zocor] 20 mg PO HS 07/18/14 02/27/24 History Primidone 75 mg PO BID 07/23/22 02/27/24 History allopurinoL [Zyloprim] 300 mg PO DAILY 07/23/22 02/27/24 History busPIRone HCl [Buspar] 5 mg PO DAILY 07/23/22 02/27/24 History Apixaban [Eliquis] 5 mg PO BID tab 08/04/22 02/27/24 Rx Metoprolol Succinate (ER) [Toprol 25 mg PO BID tab 08/04/22 02/27/24 Rx XL] Carbidopa-Levodopa 25-100 mg 1 tab PO TID-W/MEALS 09/14/23 02/27/24 History [Sinemet 25-100 mg] Escitalopram Oxalate [Lexapro] 10 mg PO DAILY 09/14/23 02/27/24 History Insulin Glargine,Hum.rec.anlog 20 units SQ HS PRN 09/14/23 02/27/24 History [Lantus Solostar Pen] Acetaminophen Tab [Tylenol] 650 mg PO Q6HR PRN tab 09/28/23 02/27/24 Rx Amiodarone [Cordarone] 100 mg PO DAILY 02/27/24 02/27/24 History Bumetanide [BUMEX] 2 mg PO BID 02/27/24 02/27/24 History Calcium Carbonate [Calcium] 1,200 mg PO HS 02/27/24 02/27/24 History Cyanocobalamin (Vitamin B-12) 1,000 mcg PO DAILY 02/27/24 02/27/24 History [Vitamin B-12] Denosumab [Prolia] 60 mg SQ Q180D 02/27/24 02/27/24 History Docusate [Colace] 100 mg PO DAILY 02/27/24 02/27/24 History Insulin Glargine,Hum.rec.anlog 60 units SQ DAILY 02/27/24 02/27/24 History [Lantus Solostar Pen] Insulin Lispro [humaLOG Kwikpen] 16 unit SQ TID-W/MEALS 02/27/24 02/27/24 History Levothyroxine Sodium [Synthroid] 75 mcg PO AC-BRKFST 02/27/24 02/27/24 History Losartan Potassium 50 mg PO DAILY 02/27/24 02/27/24 History Mirabegron [Myrbetriq] 25 mg PO DIRECTED PRN 02/27/24 02/27/24 History Nitroglycerin Sl Tabs [Nitrostat] 0.4 mg SUBLINGUAL Q5M PRN 02/27/24 02/27/24 History Potassium Chloride ER [K-Dur 20] 20 meq PO DAILY 02/27/24 02/27/24 History Simethicone 180 mg PO ACHS PRN 02/27/24 02/27/24 History polyethylene glycoL 3350 [Miralax] 17 gm PO DAILY PRN 02/27/24 02/27/24 History Allergies Allergy/AdvReac Type Severity Reaction Status Date / Time gabapentin AdvReac Hallucinati Verified 02/27/24 14:23 ons Physical Examination - Vital Signs Vital Signs: Vital Signs Temp Pulse Resp BP Pulse Ox 02/28/24 06:30 57 L 15 148/85 97 02/28/24 05:09 58 L 16 146/81 98 02/28/24 03:49 97.5 F L 58 L 17 181/110 97 02/28/24 02:31 60 18 165/106 02/28/24 01:13 18 153/90 02/28/24 00:17 58 L 18 132/62 96 02/27/24 21:03 72 18 114/52 97 02/27/24 19:48 63 18 150/80 97 02/27/24 17:25 60 18 192/77 96 02/27/24 13:25 98.3 F 72 18 130/79 91 L Patient is an elderly female, very pleasant, in no acute distress. Patient is alert awake oriented to time place and person. Patient knows it is February 2024 and she is in the hospital. Speech and language functions are normal. Patient can name and repeat very well. No aphasia or dysarthria. Attention, concentration is intact and fund of knowledge is slightly limited. Detail cognitive function testing deferred. Patient has slow mentation, prolonged latency time to answer questions. She is quite hard of hearing. On cranial nerve examination, pupils are equal, round and reacting to light, visual vanessa are full on confrontation, with no neglect on double simultaneous stimulation. Extraocular muscles are intact with no nystagmus. Face is symmetric, tongue protrudes to the midline. Palatal elevation and sensation normal, hearing is moderately decreased and shoulder shrug normal, facial sensation normal. Patient has moderate head tremor. On muscle strength testing, there is no pronator drift and the strength is normal in arms and legs distally and proximally except hip flexion which is 5- bilaterally. Patient has mild coarse tremor upper extremities of outstretched hands. Deep tendon reflexes are symmetric 1 in the upper limbs at biceps and brachioradialis, 0 at the knees and ankles and plantars are flat bilaterally. Sensory to touch is equal with no neglect on double simultaneous stimulation. Cerebellar function showed no ataxia for [id number] testing, although there was mild tremors. No ataxia for [id number] testing on either side. Tone is mildly increased and bulk of muscles normal. Gait deferred.. On general examination, there is no carotid bruit or murmur, S1-S2 audible. Chest is clear on consultation. Abdomen is soft nontender. No organomegaly, bowel sounds present. Peripheral pulses are present. Mild peripheral edema. Results - Laboratory Findings CBC and BMP: 02/28/24 06:46 02/28/24 06:46 Abnormal Lab Findings: Abnormal Labs 02/27/24 02/27/24 02/27/24 13:51 13:51 17:07 RBC Hgb MCHC RDW Carbon Dioxide 36 H BUN 66 H Creatinine 2.36 H Est GFR (CKD-EPI) BUN/Creatinine Ratio Glucose 136 H POC Glucose (mg/dL) 146 H Hemoglobin A1c Calcium 11.0 H Total Bilirubin ALT NT-Pro-B Natriuret Pep 477 H Total Protein 6.1 L Albumin 3.4 L Albumin/Globulin Ratio TSH 8.010 H Free T3 pg/mL 2.10 L 02/27/24 02/28/24 02/28/24 21:15 06:46 06:46 RBC 3.89 L Hgb 11.4 L MCHC 30.4 L RDW 15.5 H Carbon Dioxide BUN Creatinine Est GFR (CKD-EPI) BUN/Creatinine Ratio Glucose POC Glucose (mg/dL) 185 H Hemoglobin A1c 7.1 H Calcium Total Bilirubin ALT NT-Pro-B Natriuret Pep Total Protein Albumin Albumin/Globulin Ratio TSH Free T3 pg/mL 02/28/24 06:46 RBC Hgb MCHC RDW Carbon Dioxide 36.3 H BUN 58.8 H Creatinine 2.6 H Est GFR (CKD-EPI) 19 L BUN/Creatinine Ratio 22.62 H Glucose 114 H POC Glucose (mg/dL) Hemoglobin A1c Calcium Total Bilirubin <0.2 L ALT 6 L NT-Pro-B Natriuret Pep Total Protein 5.8 L Albumin 3.4 L Albumin/Globulin Ratio 1.42 L TSH Free T3 pg/mL Assessment and Plan Assessment: * 78-year-old female with history of Parkinson's disease, came with a one-week history of worsening tremors, worsening mobility, and frequent falls. Likely some component of metabolic encephalopathy with increasing tremors, jerking and falling. * Acute kidney injury * Congestive heart failure * Hypothyroidism * Diabetes * Hyperlipidemia * Hypertension * Rheumatoid arthritis * History of cervical spinal stenosis Plan: * CT head revealed no acute process. No evidence of hydrocephalus. * Hydration, management of acute kidney injury per IM. No evidence of UTI. * Chest x-ray revealed cardiomegaly and increased pulmonary vascular congestion. Patient's previous 2-D echo from 07/23/2022 revealed EF of 20-25%. Will defer to IM for management of CHF. * Continue current medications for Parkinson's including Sinemet 25/100 3 times a day. Patient also takes primidone 75 mg twice a day. * Patient has history of cervical spinal stenosis. We will check MRI of the cervical spine rule out worsening of spinal stenosis. * Recommend patient follow up with her neurologist Dr. Lynn in one week. * PT OT, evaluate gait. * Continue Eliquis 5 mg twice a day. * Neurology will follow. Thank you for the consult. Time with Patient: Greater than 30
[2024-02-29 07:40] LABS: Basophils % (A) 0 %; Eosinophils # (A) 0.1 k/uL (0-0.7); Eosinophils % (A) 1 %; HCT 38.9 % (34.0-46.0); HGB 11.5 gm/dL (11.4-16.0); Hypochromasia Slight; Lymphocytes # (A) 1.8 k/uL (1.0-4.8); Lymphocytes % (A) 21 %; MCH 29.2 pg (25.0-35.0); MCHC 29.6 g/dL (31.0-37.0); MCV 98.6 fL (80.0-100.0); Macrocytosis Slight; Mean Platelet Volume 7.8; Monocytes # (A) 0.8 k/uL (0-1.0); Monocytes % (A) 9 %; Neutrophils # (A) 5.7 k/uL (1.3-7.7); Neutrophils % (A) 66 %; Platelet Count 223 k/uL (150-450); RBC 3.94 m/uL (3.80-5.40); RDW 15.3 % (11.5-15.5); WBC 8.7 k/uL (3.8-10.6)
[2024-02-29 07:55] LABS: African American GFR (CKD) 21 (>60 ml/min/1.73 sqM); Anion Gap 5 mmol/L; Blood Urea Nitrogen 61 mg/dL (7-17); Calcium 9.9 mg/dL (8.4-10.2); Carbon Dioxide 36 mmol/L (22-30); Chloride 102 mmol/L (98-107); Glucose 83 mg/dL (74-99); Non-African American GFR(CKD) 19 (>60 ml/min/1.73 sqM); Potassium 3.8 mmol/L (3.5-5.1); Sodium 143 mmol/L (137-145)
[2024-02-29 12:01] LABS: Glucose,Whole Blood 249 mg/dL (70-110)
--- NOTE | 2024-02-29 14:08 | XR ---
EXAMINATION TYPE: XR chest 1V portable DATE OF EXAM: 02/29/2024 2:01 PM CLINICAL INDICATION:Female, 78 years old with history of chf; [facility] COMPARISON: Chest radiographs from 02/27/2024 TECHNIQUE: XR chest 1V portable Frontal view of the chest. FINDINGS: Lungs/Pleura: There is no evidence of pleural effusion, focal consolidation, or pneumothorax. Pulmonary vascularity: Pulmonary vascular congestion. Heart/mediastinum: Cardiomediastinal silhouette is enlarged and stable. Musculoskeletal: No acute osseous pathology. IMPRESSION: Cardiomegaly and mild pulmonary vascular congestion. Correlate with BNP for congestive heart failure.
--- NOTE | 2024-02-29 14:34 | PN ---
PROGRESS NOTE DATE OF SERVICE: 02/29/2024 SUBJECTIVE: This 78-year-old woman was admitted with increasing weakness and gait dysfunction, is being closely monitored. Neurology following the patient closely. No chest pain, no palpitation. OBJECTIVE: VITAL SIGNS: Pulse 57, blood pressure 150/80, respirations 16 to 17. CHEST: Few scattered rhonchi and crackles. ABDOMEN: Soft. NERVOUS SYSTEM: No focal deficits. LABORATORY DATA: Creatinine is 2.46. ASSESSMENT: 1. Increasing weakness, gait dysfunction, possible parkinsonian exacerbation. 2. Acute on chronic renal failure with acute tubular necrosis. 3. History of Parkinson's. 4. Hypercalcemia, possibly secondary to supplementation. 5. History of CHF. 6. Diabetes mellitus type 2. 7. Hypertension. 8. Hyperlipidemia. 9. Multiple complex medical issues. RECOMMENDATIONS: Recommended to continue current management, continue symptomatic treatment. Otherwise, the patient is also evaluated by nephrology also. Bladder ultrasound was done, showed no hydronephrosis. PT OT evaluation. Once again the patient needed full admit because of above-mentioned multiple complex medical issues. The patient is still shaky and has significant weakness, could not be discharged today. Further recommendations to follow. Repeat x-ray has been ordered to evaluate the fluid volume status and please also note high creatinine. MMODL / IJN: [id number] /
[2024-02-29 18:01] LABS: Glucose,Whole Blood 202 mg/dL (70-110)
--- NOTE | 2024-02-29 19:35 | P.PN ---
Subjective Patient is seen for follow-up for acute kidney injury with underlying history of chronic kidney disease with baseline creatinine about 1.4 to 1.6 mg/dL in September 2023. She was admitted to the hospital with complaints of increased weakness and tr emors. Diuretics are currently on hold. There was urine retention of about 550 mL and a Huffman catheter was placed. Serum creatinine has decreased slightly to 2.4 from 2.6 yesterday. 24-hour urine output at 1400 mL. No hypotension. Objective - Vital Signs Vital signs: Vital Signs Temp 98.0 F 02/29/24 14:00 Pulse 66 02/29/24 14:00 Resp 18 02/29/24 14:00 BP 148/70 02/29/24 14:00 Pulse Ox 97 02/29/24 14:00 FiO2 Intake & Output 02/29/24 02/29/24 03/01/24 06:59 18:59 06:59 Output Total 1050 Balance -1050 Output: Urine 1050 Other: Voiding Method Indwelling Catheter Indwelling Catheter - Exam patient is awake, comfortable, no acute distress. Examination of the heart S1 and S2 Examination of the lungs bilateral breath sounds are heard Abdomen is soft, nontender Examination of the lower extremities shows no significant edema. 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 Acute kidney injury secondary to urine retention. Also component of hypovolemia and hypercalcemia contributing to acute kidney injury. Diuretics currently on hold. UA is quite unremarkable. No evidence of obstruction on ultrasound of the kidneys. 2. Hypercalcemia associated with use of calcium supplements. Currently improved. 3. Type 2 diabetes 4. Hypertension with elevated blood pressures. maintained on Cozaar and metop rolol. Heart rate is in the 50s to 60s. 5. History of A. fib maintained on amiodarone 6. Hypothyroidism Plan: Continue with Huffman catheter. Continue with Cozaar Possibly resume lower dose of diuretics tomorrow. Repeat labs in a.m. Add Flomax
[2024-02-29] MEDS: TAMSULOSIN 0.4 MG CAP.ER.24H PO SCH (19:58)
[2024-02-29 20:48] LABS: Glucose,Whole Blood 273 mg/dL (70-110)
[2024-02-29] MEDS: INSULIN DETEMIR (LEVEMIR) 100 UNIT/ML SYR SQ SCH (21:39)
[2024-03-01 06:27] LABS: Glucose,Whole Blood 103 mg/dL (70-110)
--- NOTE | 2024-03-01 06:38 | P.PN ---
Subjective Progress Note Date: 02/29/24 Patient was seen for a follow-up. Patient's patient's daughter Kanchan were present. Patient states she feels slightly sleepy earlier, but now is awake. Denies any further syncopal spells. Family mentioned that patient has history of atrial fibrillation, on Eliquis. She follows with Dr. Morris. Patient used to be on amiodarone. Her EF was low, but repeat EF was 40% therefore the dose of amiodarone has been decreased. Patient has history of right hip fracture, right knee surgery. And usually her right leg gives out. Patient with another fall, hit her head and had a bruise. Patient's was also present, who also mentions that patient legs jerk and she falls back. Objective - Vital Signs Vital signs: Vital Signs Temp 98.0 F 02/29/24 14:00 Pulse 66 02/29/24 14:00 Resp 18 02/29/24 14:00 BP 148/70 02/29/24 14:00 Pulse Ox 97 02/29/24 14:00 FiO2 Intake & Output 02/28/24 02/29/24 02/29/24 18:59 06:59 18:59 Intake Total 100 Output Total 350 1050 Balance -250 -1050 Weight 95.254 kg Intake: Oral 100 Output: Urine 350 1050 Other: Voiding Method External Catheter Indwelling Catheter Indwelling Catheter - Exam Patient is alert and awake, continues to have slow mentation, prolonged latency tend to answer questions. Patient is hard of hearing. I again did not notice any myoclonic jerks of outstretched hands. She does have head tremors, and her arm slightly tremors but no myoclonic jerking. Rest of the exam hearing is unchanged. - Labs CBC & Chem 7: 02/29/24 06:46 02/29/24 06:46 Labs: Abnormal Lab Results - Last 24 Hours (Table) 02/28/24 02/29/24 02/29/24 Range/Units 20:18 06:46 06:46 MCHC 29.6 L (31.0-37.0) g/dL Carbon Dioxide 36 H (22-30) mmol/L BUN 61 H (7-17) mg/dL Creatinine 2.46 H (0.52-1.04) mg/dL POC Glucose (mg/dL) 231 H (70-110) mg/dL 02/29/24 02/29/24 Range/Units 12:00 17:53 MCHC (31.0-37.0) g/dL Carbon Dioxide (22-30) mmol/L BUN (7-17) mg/dL Creatinine (0.52-1.04) mg/dL POC Glucose (mg/dL) 249 H 202 H (70-110) mg/dL Assessment and Plan Assessment: * 78-year-old female with history of Parkinson's disease, came with a one-week history of worsening tremors, worsening mobility, and frequent falls. Likely some component of metabolic encephalopathy with increasing tremors, jerking and falling. * Acute kidney injury * Congestive heart failure * History of atrial fibrillation, on Eliquis. * Hypothyroidism * Diabetes * Hyperlipidemia * Hypertension * Rheumatoid arthritis * History of cervical spinal stenosis Plan: * CT head revealed no acute process. No evidence of hydrocephalus. * Hydration, management of acute kidney injury per IM. No evidence of UTI. Nephrology also on board. Patient has TERRENCE secondary to urinary retention. Also component of hypovolemia and hypercalcemia contributing to TERRENCE. Hypercalcemia resolved. * Chest x-ray revealed cardiomegaly and increased pulmonary vascular congestion. Patient's previous 2-D echo from 07/23/2022 revealed EF of 20-25%. Will defer to IM for management of CHF. * Continue current medications for Parkinson's including Sinemet 25/100 3 times a day. Patient also takes primidone 75 mg twice a day. * Patient has history of cervical spinal stenosis. Await MRI of the cervical spine rule out worsening of spinal stenosis. * Check B12, folate. TSH 6.63 with normal free T4 1.82. We will defer to IM for abnormal TFTs. * Hemoglobin A1c 7.1. Lipid panel with cholesterol 181, LDL 104, HDL 41, t riglycerides 176. * Recommend patient follow up with her neurologist Dr. Lynn in one week. * PT OT, evaluate gait. * Continue Eliquis 5 mg twice a day.
[2024-03-01 08:02] LABS: Basophils % (A) 0 %; Eosinophils # (A) 0.1 k/uL (0-0.7); Eosinophils % (A) 2 %; HGB 11.4 gm/dL (11.4-16.0); Hypochromasia Slight; Lymphocytes # (A) 1.9 k/uL (1.0-4.8); Lymphocytes % (A) 24 %; MCH 29.9 pg (25.0-35.0); MCHC 30.7 g/dL (31.0-37.0); MCV 97.4 fL (80.0-100.0); Mean Platelet Volume 8.2; Monocytes # (A) 0.7 k/uL (0-1.0); Monocytes % (A) 9 %; Neutrophils % (A) 63 %; Platelet Count 196 k/uL (150-450); RDW 15.2 % (11.5-15.5); WBC 7.8 k/uL (3.8-10.6)
[2024-03-01 10:56] LABS: BUN/Creat Ratio 21.19 Ratio (12.00-20.00); Blood Urea Nitrogen 57.2 mg/dL (9.0-27.0); Calcium 9.1 mg/dL (8.7-10.3); Carbon Dioxide 31.4 mmol/L (21.6-31.8); Chloride 101 mmol/L (96-109); Glucose 93 mg/dL (70-110); Potassium 3.8 mmol/L (3.5-5.5); Sodium 144 mmol/L (135-145)
[2024-03-01 11:49] VITALS: BMI 33.9
[2024-03-01 11:58] LABS: Glucose,Whole Blood 175 mg/dL (70-110)
[2024-03-01 17:16] LABS: Glucose,Whole Blood 171 mg/dL (70-110)
--- NOTE | 2024-03-01 20:12 | MR ---
MRI CERVICAL SPINE: CLINICAL HISTORY: Frequent Falls. TECHNIQUE: Multiplanar, multisequence imaging of the cervical spine is performed without IV contrast. COMPARISON: Prior MRI May 17, 2018. FINDINGS: Sagittal images of the cervical spine show the craniocervical junction to remain within nor mal limits. Vertebral alignment is stable with exaggerated cervical curvature redemonstrated. The vertebral body and intravertebral disk heights remain normal. The bone marrow signal intensity is w ithin normal limits. Axial images show C2-C3 level to remain within normal limits. Some increased signal in the spinal cor d at this level on axial and sagittal image 9 could be artifactual but true abnormal signal cannot be excluded. Axial images at C3-C4 level redemonstrate central disc protrusion effacing anterior thecal sac and un covertebral facet degenerative change causing moderate left-sided neural foraminal narrowing. Some in creased signal in the cord on axial images is not reproduced on sagittal images. Axial images at C4-C5 level show lobulated disc protrusion effaces the anterior thecal sac of the tabitha tral surface of spinal cord which is flattened and causing mild to moderate bilateral neural foramina l narrowing. Similar findings to prior. Axial images at C5-C6 level shows central disc protrusion effacing anterior thecal sac of the ventral cervical spinal cord which is flattened and right-sided uncovertebral facet degenerative change caus ing new moderate to severe right-sided neural foraminal narrowing. Axial images at C6-C7 level shows central disc protrusion effacing anterior thecal sac up, bilateral neural foramina are patent. Axial images at C7-T1 level appear within normal limits. IMPRESSION: Exaggerated cervical curvature redemonstrated. Fairly advanced multilevel degenerative ch anges remain present and more prominent versus prior. Multilevel significant spinal canal effacement is noted.
[2024-03-01 21:21] LABS: Glucose,Whole Blood 208 mg/dL (70-110)
--- NOTE | 2024-03-01 21:49 | P.PN ---
Subjective Patient is seen for follow-up for acute kidney injury with underlying history of chronic kidney disease with baseline creatinine about 1.4 to 1.6 mg/dL in September 2023. She was admitted to the hospital with complaints of increased weakness and tr emors. Diuretics are currently on hold. There was urine retention of about 550 mL and a Huffman catheter was placed. Serum creatinine at 2.7 mg/dL today. It was 2.3 on admission. 24-hour urine output at 1400 mL. No hypotension. Maintained on Cozaar. Objective - Vital Signs Vital signs: Vital Signs Temp 98.2 F 03/01/24 19:16 Pulse 67 03/01/24 19:16 Resp 18 03/01/24 19:16 BP 137/60 03/01/24 19:16 Pulse Ox 98 03/01/24 19:16 FiO2 Intake & Output 03/01/24 03/01/24 03/02/24 06:59 18:59 06:59 Intake Total 238 Output Total 500 400 Balance -500 -162 Weight 95.254 kg Intake: Oral 238 Output: Urine 500 400 Other: Voiding Method Indwelling Catheter Indwelling Catheter - Exam patient is awake, comfortable, no acute distress. Examination of the heart S1 and S2 Examination of the lungs bilateral breath sounds are heard Abdomen is soft, nontender Examination of the lower extremities shows no significant edema. 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 - Labs CBC & Chem 7: 03/01/24 06:50 03/01/24 06:50 Labs: Abnormal Lab Results - Last 24 Hours (Table) 03/01/24 03/01/24 03/01/24 Range/Units 06:50 06:50 11:56 MCHC 30.7 L (31.0-37.0) g/dL BUN 57.2 H (9.0-27.0) mg/dL Creatinine 2.7 H (0.6-1.5) mg/dL Est GFR (CKD-EPI) 18 L (>=60) BUN/Creatinine Ratio 21.19 H (12.00-20.00) Ratio POC Glucose (mg/dL) 175 H (70-110) mg/dL Vitamin B12 3368.0 H (200.0-944.0) pg/mL 03/01/24 03/01/24 Range/Units 17:14 21:19 MCHC (31.0-37.0) g/dL BUN (9.0-27.0) mg/dL Creatinine (0.6-1.5) mg/dL Est GFR (CKD-EPI) (>=60) BUN/Creatinine Ratio (12.00-20.00) Ratio POC Glucose (mg/dL) 171 H 208 H (70-110) mg/dL Vitamin B12 (200.0-944.0) pg/mL Microbiology - Last 24 Hours (Table) 02/28/24 13:10 Blood Culture - Preliminary Blood Assessment and Plan Assessment: 1. Acute kidney injury secondary to urine retention. Also component of hypovolemia and hypercalcemia contributing to acute kidney injury. Diuretics currently on hold. UA is benign. No evidence of obstruction on ultrasound of t he kidneys. Serum creatinine increased to 2.7 today. I will decrease the dose of Cozaar. 2. Hypercalcemia associated with use of calcium supplements. Currently improved. 3. Type 2 diabetes 4. Hypertension with elevated blood pressures. Maintained on Cozaar and metoprolol. Heart rate is in the 50s to 60s. 5. History of A. fib maintained on amiodarone 6. Hypothyroidism 7. Chronic kidney disease and gives stage IV with baseline creatinine about 1.6-to 1.8 mg/dL. Etiology is nephrosclerosis. Plan: Continue with Huffman catheter. Decrease dose of Cozaar Possibly restart lower dose of diuretics tomorrow. Repeat labs in a.m. Add Flomax
[2024-03-02 05:58] LABS: Glucose,Whole Blood 135 mg/dL (70-110)
[2024-03-02 08:26] LABS: Basophils # (A) 0.01 X 10*3/uL (0.00-0.10); Basophils % (A) 0.1 %; Eosinophils # (A) 0.14 X 10*3/uL (0.04-0.35); Eosinophils % (A) 1.8 %; HCT 34.7 % (37.2-46.3); HGB 10.9 g/dL (12.0-15.0); Lymphocytes # (A) 1.56 X 10*3/uL (0.90-5.00); Lymphocytes % (A) 19.5 %; MCH 30.5 pg (27.0-32.0); MCHC 31.4 g/dL (32.0-37.0); MCV 97.2 FL (80.0-97.0); Mean Platelet Volume 10.4 FL (9.5-12.2); Monocytes # (A) 0.82 X 10*3/uL (0.20-1.00); Monocytes % (A) 10.3 %; NRBC Per 100 WBC 0 X 10*3/uL (0.00-0.01); Neutrophils # (A) 5.43 X 10*3/uL (1.80-7.70); Platelet Count 192 X 10*3/uL (140-440); RBC 3.57 X 10*6/uL (4.10-5.20); RDW 15.1 % (11.5-14.5); WBC 7.98 X 10*3/uL (4.50-10.00)
[2024-03-02 08:42] LABS: Magnesium 2.1 mg/dL (1.5-2.4)
[2024-03-02 08:44] LABS: ALT 7 U/L (8-44); AST 26 U/L (13-35); Albumin 3.2 g/dL (3.8-4.9); Albumin/Globulin Ratio 1.39 Ratio (1.60-3.17); Alkaline Phosphatase 54 U/L (41-126); BUN/Creat Ratio 21.85 Ratio (12.00-20.00); Calcium 8.7 mg/dL (8.7-10.3); Carbon Dioxide 32.4 mmol/L (21.6-31.8); Chloride 100 mmol/L (96-109); Globulin 2.3 g/dL (1.6-3.3); Glucose 128 mg/dL (70-110); Potassium 3.9 mmol/L (3.5-5.5); Sodium 142 mmol/L (135-145); Total Bilirubin <0.2 mg/dL (0.3-1.2); Total Protein 5.5 g/dL (6.2-8.2)
--- NOTE | 2024-03-02 09:12 | P.PN ---
Subjective Progress Note Date: 03/01/24 This is a 78-year-old female who was recently admitted with increasing weakness along with acute kidney injury on top of chronic kidney disease being closely monitored. Patient does have significant history of Parkinson's and has been progressively becoming more weak. Patient does follow with neurologist outpatient and has an appointment next week. Patient was evaluated by neurology recommending MRI of the cervical spine. Patient is afebrile with no reports of chest pain or shortness of breath. Patient is tolerating diet and recommend aspiration precautions and chopped diet with supervision with meals. Recommend PT/OT therapy evaluation and working with daily. Patient is adamant she is go ing home on discharge although unsure of a safe discharge at this point as patient would likely benefit from ECF. Review of systems: Constitutional: No reports of fatigue, fever, or chills Cardiovascular: No reports of chest pain or palpitations Respiratory: No reports of shortness of breath or cough GI: No reports of nausea, no reports of vomiting, no diarrhea : No reports of dysuria or retention Neurovascular: reports of generalized weakness, difficulty ambulating although has issues chronically outpatient All medications have been reviewed PHYSICAL EXAMINATION: GENERAL: The patient is alert and oriented x4, Well developed, well nourished. HEENT: Pupils are round and equally reacting to light. EOMI. no scleral icterus. No conjunctival pallor. Normocephalic, atraumatic. No pharyngeal erythema. No thyromegaly. CARDIOVASCULAR: S1 and S2 muffled PULMONARY: diminished breath sounds bilaterally with no wheezing or rhonchi noted. ABDOMEN: soft. Nontender on exam. obese. non-distended, normoactive bowel sounds. No palpable organomegaly. MUSCULOSKELETAL: No joint swelling or deformity. EXTREMITIES: No cyanosis, clubbing, or pedal edema. NEUROLOGICAL: Gross neurological examination did not reveal any focal deficits. Diffuse weakness SKIN: No rashes. Assessment: Increasing weakness, gait dysfunction, possible parkinsonian exacerbation History of Parkinson's Acute on chronic kidney disease with acute tubular necrosis, creatinine 2.7 Hypercalcemia, possibly secondary to supplementation, improved and holding supplementation History of congestive heart failure, not in exacerbation Diabetes mellitus, type II Hypertension Hyperlipidemia Obesity with a BMI 33.9 History of rheumatoid arthritis GI prophylaxis DVT prophylaxis Full code Plan: Recommend to continue with current medications and management with nephrology and neurology following. Patient underwent neurological workup including MRI of the cervical spine showing an exaggerated cervical curvature redemonstrated with advanced multilevel degenerative changes that remain present with multilevel si gnificant spinal canal effacement noted. Patient does have an appointment with primary neurologist in the outpatient setting recommending outpatient follow-up in the next 1 to 2 weeks Nephrology following continuing to hold diuretics and kidney functions continue to worsen. Creatinine is at 2.7 and recommend follow-up labs PT/OT therapy evaluated the patient and patient is significantly weak more so than her normal requiring almost 2-3 people for assistance recommending rehab. Patient is adamant she is going home and will discuss further with family regarding discharge planning Case management/social work following arranging for home care on discharge although patient may benefit from ECF Will discuss with other consultations regarding discharge planning with possible discharge in the next 24 to 48 hours Due to multiple complex medical issues, prognosis is guarded and high risk for readmissions The impression and plan of care has been dictated by Maeve Lopez, nurse practitioner as directed. Dr. Gucci MD I have performed a history and examination and MDM of this patient, discussed the same with the dictator, and agree with the dictator's assessment and plan as written ,documented as a scribe. Based on total visit time, I have performed more than 50% of the visit. Any additional findings or plans will be noted. Objective - Vital Signs Vital signs: Vital Signs Temp 97.6 F 03/01/24 07:22 Pulse 60 03/01/24 08:31 Resp 16 03/01/24 08:32 BP 130/67 03/01/24 07:22 Pulse Ox 97 03/01/24 11:23 FiO2 Intake & Output 02/29/24 03/01/24 03/01/24 18:59 06:59 18:59 Intake Total 118 Output Total 500 Balance -500 118 Weight 95.254 kg Intake: Oral 118 Output: Urine 500 Other: Voiding Method Indwelling Catheter Indwelling Catheter Indwelling Catheter - Labs CBC & Chem 7: 03/02/24 04:06 03/02/24 04:06 Labs: Abnormal Lab Results - Last 24 Hours (Table) 02/29/24 02/29/24 03/01/24 Range/Units 17:53 20:46 06:50 MCHC 30.7 L (31.0-37.0) g/dL BUN (9.0-27.0) mg/dL Creatinine (0.6-1.5) mg/dL Est GFR (CKD-EPI) (>=60) BUN/Creatinine Ratio (12.00-20.00) Ratio POC Glucose (mg/dL) 202 H 273 H (70-110) mg/dL Vitamin B12 (200.0-944.0) pg/mL 03/01/24 03/01/24 Range/Units 06:50 11:56 MCHC (31.0-37.0) g/dL BUN 57.2 H (9.0-27.0) mg/dL Creatinine 2.7 H (0.6-1.5) mg/dL Est GFR (CKD-EPI) 18 L (>=60) BUN/Creatinine Ratio 21.19 H (12.00-20.00) Ratio POC Glucose (mg/dL) 175 H (70-110) mg/dL Vitamin B12 3368.0 H (200.0-944.0) pg/mL Microbiology - Last 24 Hours (Table) 02/28/24 13:10 Blood Culture - Preliminary Blood
[2024-03-02] MEDS ORDERED: ZINC OXIDE PASTE (Z-GUARD) 1 APPLIC TOPICAL PRN (10:35)
[2024-03-02] MEDS: ACETAMINOPHEN TAB 325 MG TAB PO PRN (11:46)
[2024-03-02 11:48] LABS: Glucose,Whole Blood 187 mg/dL (70-110)
--- NOTE | 2024-03-02 12:25 | P.PN ---
Subjective Progress Note Date: 03/01/24 03/01/2024: Patient was seen for a follow-up. Patient is laying in the bed. Continues to have head tremoring. No new concerns. 02/29/2024: Patient was seen for a follow-up. Patient's patient's daughter Kanchan were present. Patient states she feels slightly sleepy earlier, but now is awake. Denies any further syncopal spells. Family mentioned that patient has history of atrial fibrillation, on Eliquis. She follows with Dr. Morris. Patient used to be on amiodarone. Her EF was low, but repeat EF was 40% therefore the dose of amiodarone has been decreased. Patient has history of right hip fracture, right knee surgery. And usually her right leg gives out. Patient with another fall, hit her head and had a bruise. Patient's was also present, who also mentions that patient legs jerk and she falls back. Objective - Vital Signs Vital signs: Vital Signs Temp 97.6 F 03/01/24 07:22 Pulse 60 03/01/24 08:31 Resp 16 03/01/24 08:32 BP 130/67 03/01/24 07:22 Pulse Ox 97 03/01/24 11:23 FiO2 Intake & Output 02/29/24 03/01/24 03/01/24 18:59 06:59 18:59 Intake Total 118 Output Total 500 Balance -500 118 Weight 95.254 kg Intake: Oral 118 Output: Urine 500 Other: Voiding Method Indwelling Catheter Indwelling Catheter Indwelling Catheter - Exam Patient is alert and awake, continues to have slow mentation, prolonged latency tend to answer questions. Patient is hard of hearing. I again did not notice any myoclonic jerks of outstretched hands. She does have head tremors, and her arm slightly tremors but no myoclonic jerking. Rest of the exam hearing is unchanged. - Labs CBC & Chem 7: 03/02/24 04:06 03/02/24 04:06 Labs: Abnormal Lab Results - Last 24 Hours (Table) 02/29/24 02/29/24 03/01/24 Range/Units 17:53 20:46 06:50 MCHC 30.7 L (31.0-37.0) g/dL BUN (9.0-27.0) mg/dL Creatinine (0.6-1.5) mg/dL Est GFR (CKD-EPI) (>=60) BUN/Creatinine Ratio (12.00-20.00) Ratio POC Glucose (mg/dL) 202 H 273 H (70-110) mg/dL Vitamin B12 (200.0-944.0) pg/mL 03/01/24 03/01/24 Range/Units 06:50 11:56 MCHC (31.0-37.0) g/dL BUN 57.2 H (9.0-27.0) mg/dL Creatinine 2.7 H (0.6-1.5) mg/dL Est GFR (CKD-EPI) 18 L (>=60) BUN/Creatinine Ratio 21.19 H (12.00-20.00) Ratio POC Glucose (mg/dL) 175 H (70-110) mg/dL Vitamin B12 3368.0 H (200.0-944.0) pg/mL Microbiology - Last 24 Hours (Table) 02/28/24 13:10 Blood Culture - Preliminary Blood Assessment and Plan Assessment: * 78-year-old female with history of Parkinson's disease, came with a one-week history of worsening tremors, worsening mobility, and frequent falls. Likely some component of metabolic encephalopathy with increasing tremors, jerking and falling. * Acute kidney injury * Congestive heart failure * History of atrial fibrillation, on Eliquis. * Hypothyroidism * Diabetes * Hyperlipidemia * Hypertension * Rheumatoid arthritis * History of cervical spinal stenosis Plan: * CT head revealed no acute process. No evidence of hydrocephalus. * Hydration, management of acute kidney injury per IM. No evidence of UTI. Nephrology also on board. Patient has TERRENCE secondary to urinary retention. Also component of hypovolemia and hypercalcemia contributing to TERRENCE. Hypercalcemia resolved. * Chest x-ray revealed cardiomegaly and increased pulmonary vascular congestion. Patient's previous 2-D echo from 07/23/2022 revealed EF of 20-25%. Will defer to IM for management of CHF. * Continue current medications for Parkinson's including Sinemet 25/100 3 times a day. Patient also takes primidone 75 mg twice a day. * Patient has history of cervical spinal stenosis. Await MRI of the cervical spine rule out worsening of spinal stenosis. * B12 3368, folate 16.4. TSH 6.63 with normal free T4 1.82. We will defer to IM for abnormal TFTs. * Hemoglobin A1c 7.1. Lipid panel with cholesterol 181, LDL 104, HDL 41, trigl ycerides 176. Continue Lipitor 10 mg daily. * Recommend patient follow up with her neurologist Dr. Lynn in one week. * PT OT, evaluate gait. * Continue Eliquis 5 mg twice a day.
--- NOTE | 2024-03-02 16:18 | P.CNOR ---
History of Present Illness - [facility] Consult date: 03/02/24 Consult reason: other ( cervical spine stenosis) History of present illness: patient is a 78-year-old female who was admitted to [facility] on 02/27/2024 with regards to generalized weakness. Since being admitted to the hospital, Pat patient is being followed by multiple medical specialties this to include neurology, internal medicine and nephrology. Patient has a known history of chronic kidney disease stage IV. Patient was noted to have urinary retention urinary catheter has been in place since then and medications have been altered for this. Since being in the hospital, she had brought to the attention of the neurology group that she has been diagnosed with cervical stenosis in the past, an MRI was ordered. Due to the MRI results, our orthopedic team was consulted. Patient was evaluated today at bedside, she is resting in her hospital chair. Notable tremors are present on exam when resting. Patient has a very extensive history involving her right lower extremity. She had a periprosthetic right femur fracture back in April 2019, she underwent surgery at [facility] by the orthopedic trauma team. When back at [facility] in November 2021, she did sustain a fall which resulted in a subtrochanteric right femur fracture. Patient was then transferred back to [facility] for surgical intervention. Since the injuries to the right lower extremity multiple surgeries, she has had chronic weakness and difficulty with range of motion. She states that she has very minimal symptoms involving the left lower extremity. She normally utilizes either a walker or wheelchair for assistance at home. When asked about the upper extremities, she does get some numbness and tingling in the hands on occasion. She does get some discomfort into the left upper extremity that does radiate down to the elbow. She feels that the weakness and difficulty with ambulation and some of these upper extremity symptoms have worsened over the last 3 to 4 weeks. Patient has a known diagnosis of Parkinson's, she does follow with Dr. Lynn in [place] for this. She also has other medical diagnoses, this to include congestive heart failure, A-fib, hypothyroidism, hypertension, diabetes. Patient denies any surgery to the cervical, thoracic or lumbar spine. She denies any obvious loss of bowel or bladder function. Review of Systems Constitutional: Reports as per [facility] Past Medical History Past Medical History: Heart Failure, Diabetes Mellitus, Hyperlipidemia, Hypertension, Pneumonia, Rheumatoid Arthritis (RA) Additional Past Medical History / Comment(s): tremors, renal lithiasis, hemorrhoids(sx done), "has had problems w/low magnesium.anemia. per spouse pt had past cancer "uterine or cervical-had hysterectomy". it was previously charted that pt had hx of ra and cfh spouse not able to verify this, History of Any Multi-Drug Resistant Organisms: ESBL Year Discovered:: 09/15/23 MDRO Source:: URINE Past Surgical History: Appendectomy, Hysterectomy, Orthopedic Surgery, Tonsillectomy Additional Past Surgical History / Comment(s): rt total knee repalcement, cataracts, hemmorroidectomy, colonoscopy Past Anesthesia/Blood Transfusion Reactions: No Reported Reaction Additional Past Anesthesia/Blood Transfusion Reaction / Comm: per psouse-pt never receieved any blood Past Psychological History: No Psychological Hx Reported Smoking Status: Never smoker Past Alcohol Use History: None Reported Past Drug Use History: None Reported - Past Family History Mother Family Medical History: Diabetes Mellitus Father Additional Family Medical History / Comment(s): brain anuerysm Medications and Allergies Home Medications Medication Instructions Recorded Confirmed Type Simvastatin [Zocor] 20 mg PO HS 07/18/14 02/27/24 History Primidone 75 mg PO BID 07/23/22 02/27/24 History allopurinoL [Zyloprim] 300 mg PO DAILY 07/23/22 02/27/24 History busPIRone HCl [Buspar] 5 mg PO DAILY 07/23/22 02/27/24 History Apixaban [Eliquis] 5 mg PO BID tab 08/04/22 02/27/24 Rx Metoprolol Succinate (ER) [Toprol 25 mg PO BID tab 08/04/22 02/27/24 Rx XL] Carbidopa-Levodopa 25-100 mg 1 tab PO TID-W/MEALS 09/14/23 02/27/24 History [Sinemet 25-100 mg] Escitalopram Oxalate [Lexapro] 10 mg PO DAILY 09/14/23 02/27/24 History Insulin Glargine,Hum.rec.anlog 20 units SQ HS PRN 09/14/23 02/27/24 History [Lantus Solostar Pen] Acetaminophen Tab [Tylenol] 650 mg PO Q6HR PRN tab 09/28/23 02/27/24 Rx Amiodarone [Cordarone] 100 mg PO DAILY 02/27/24 02/27/24 History Bumetanide [BUMEX] 2 mg PO BID 02/27/24 02/27/24 History Calcium Carbonate [Calcium] 1,200 mg PO HS 02/27/24 02/27/24 History Cyanocobalamin (Vitamin B-12) 1,000 mcg PO DAILY 02/27/24 02/27/24 History [Vitamin B-12] Denosumab [Prolia] 60 mg SQ Q180D 02/27/24 02/27/24 History Docusate [Colace] 100 mg PO DAILY 02/27/24 02/27/24 History Insulin Glargine,Hum.rec.anlog 60 units SQ DAILY 02/27/24 02/27/24 History [Lantus Solostar Pen] Insulin Lispro [humaLOG Kwikpen] 16 unit SQ TID-W/MEALS 02/27/24 02/27/24 History Levothyroxine Sodium [Synthroid] 75 mcg PO AC-BRKFST 02/27/24 02/27/24 History Losartan Potassium 50 mg PO DAILY 02/27/24 02/27/24 History Mirabegron [Myrbetriq] 25 mg PO DIRECTED PRN 02/27/24 02/27/24 History Nitroglycerin Sl Tabs [Nitrostat] 0.4 mg SUBLINGUAL Q5M PRN 02/27/24 02/27/24 History Potassium Chloride ER [K-Dur 20] 20 meq PO DAILY 02/27/24 02/27/24 History Simethicone 180 mg PO ACHS PRN 02/27/24 02/27/24 History polyethylene glycoL 3350 [Miralax] 17 gm PO DAILY PRN 02/27/24 02/27/24 History Allergies Allergy/AdvReac Type Severity Reaction Status Date / Time gabapentin AdvReac Hallucinati Verified 02/27/24 14:23 ons Physical Examination Gen: AOx3, NAD VSS stable at this time Integument: No open lesions, sores or areas of erythema are appreciated throughout the anterior or posterior cervical spine Palpation: patient demonstrates no tenderness with palpation of the posterior cervical paraspinal or midline region ROM: full range of motion in all major muscle groups of the bilateral upper extremities, no focal deficits full range of motion in all major muscle groups of the left lower extremity, no focal deficits Range of motion is limited with regards to hip flexion, knee extension and knee flexion due to her previous surgeries, remaining muscle groups are intact with no deficits Sensory Exam: Senory exam to light touch is intact C5-T1 Senosry exam to light touch is intact L2-S1 Motor: 4+/5 strength appreciated in the bilateral upper extremities with shoulder elevation, shoulder abduction, elbow extension, elbow flexionwrist extension, wrist flexion, 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 Strength testing was not assessed with hip flexion, knee extension and knee flexion Reflexes: 2/4 in all UE and LE negative Marsha's bilaterally negative clonus bilaterally Special Test: negative straight leg raise bilaterally logroll maneuver reproduces no groin pain bilaterally Results - Labs Labs: Abnormal Lab Results - Last 24 Hours (Table) 03/01/24 03/01/24 03/02/24 Range/Units 17:14 21:19 04:06 RBC 3.57 L (4.10-5.20) X 10*6/uL Hgb 10.9 L (12.0-15.0) g/dL Hct 34.7 L (37.2-46.3) % MCV 97.2 H (80.0-97.0) FL MCHC 31.4 L (32.0-37.0) g/dL RDW 15.1 H (11.5-14.5) % Carbon Dioxide (21.6-31.8) mmol/L BUN (9.0-27.0) mg/dL Creatinine (0.6-1.5) mg/dL Est GFR (CKD-EPI) (>=60) BUN/Creatinine Ratio (12.00-20.00) Ratio Glucose (70-110) mg/dL POC Glucose (mg/dL) 171 H 208 H (70-110) mg/dL Total Bilirubin (0.3-1.2) mg/dL ALT (8-44) U/L Total Protein (6.2-8.2) g/dL Albumin (3.8-4.9) g/dL Albumin/Globulin Ratio (1.60-3.17) Ratio 03/02/24 03/02/24 03/02/24 Range/Units 04:06 05:56 11:46 RBC (4.10-5.20) X 10*6/uL Hgb (12.0-15.0) g/dL Hct (37.2-46.3) % MCV (80.0-97.0) FL MCHC (32.0-37.0) g/dL RDW (11.5-14.5) % Carbon Dioxide 32.4 H (21.6-31.8) mmol/L BUN 59.0 H (9.0-27.0) mg/dL Creatinine 2.7 H (0.6-1.5) mg/dL Est GFR (CKD-EPI) 18 L (>=60) BUN/Creatinine Ratio 21.85 H (12.00-20.00) Ratio Glucose 128 H (70-110) mg/dL POC Glucose (mg/dL) 135 H 187 H (70-110) mg/dL Total Bilirubin <0.2 L (0.3-1.2) mg/dL ALT 7 L (8-44) U/L Total Protein 5.5 L (6.2-8.2) g/dL Albumin 3.2 L (3.8-4.9) g/dL Albumin/Globulin Ratio 1.39 L (1.60-3.17) Ratio Microbiology - Last 24 Hours (Table) 02/28/24 13:10 Blood Culture - Preliminary Blood H & H 02/27/24 02/28/24 02/29/24 Range/Units 13:51 06:46 06:46 Hgb 12.1 11.4 L 11.5 (11.4-16.0) gm/dL Hct 38.8 37.5 38.9 (34.0-46.0) % 03/01/24 03/02/24 Range/Units 06:50 04:06 Hgb 11.4 10.9 L (11.4-16.0) gm/dL Hct 37.0 34.7 L (34.0-46.0) % Coagulation 02/27/24 Range/Units 13:51 INR 1.0 (<1.2) Result Diagrams: 03/02/24 04:06 03/02/24 04:06 - Diagnostic results Cervical MRI with contrast: report reviewed, image reviewed Assessment and Plan Assessment: multilevel cervical spondylosis multilevel cervical spine neuroforaminal stenosis and central canal stenosis history of polytrauma with multiple surgeries to the right lower extremity generalized weakness multiple medical comorbidities Plan: I was able to discuss the case this to include both physical exam findings and current imaging studies with my attending Dr. Andrew With findings on cervical spine MRI, we are recommending a CT scan without contrast of the cervical spine to evaluate the bony structures more adequately. MRI findings do confirm the multilevel cervical spondylosis and varying degrees of stenosis and degenerative changes. Patient is demonstrating no acute myelopathic symptoms at this time. I do feel some of the weakness in the right lower extremity is related to the chronic issue she has dealt with from the multiple traumas and surgeries that she has had done. Also taken in consideration her Parkinson's and current medical state would lead to gene ralized weakness. Recommend use of a walker at all times for ambulation Further recommendations to follow after review of cervical spine CT Time with Patient: Less than 30
[2024-03-02 17:18] LABS: Glucose,Whole Blood 134 mg/dL (70-110)
--- NOTE | 2024-03-02 17:18 | P.PN ---
Subjective Patient is seen for follow-up for acute kidney injury with underlying history of chronic kidney disease with baseline creatinine about 1.4 to 1.6 mg/dL in September 2023. She was admitted to the hospital with complaints of increased weakness and tr emors. Diuretics are currently on hold. There was urine retention of about 550 mL and a Huffman catheter was placed. Serum creatinine staying at 2.7 mg/dL. 24-hour urine output at 1050 mL. No hypotension. Maintained on Cozaar. Objective - Vital Signs Vital signs: Vital Signs Temp 97.9 F 03/02/24 14:00 Pulse 61 03/02/24 14:00 Resp 18 03/02/24 14:00 BP 136/65 03/02/24 14:00 Pulse Ox 100 03/02/24 14:00 FiO2 Intake & Output 03/01/24 03/02/24 03/02/24 18:59 06:59 18:59 Intake Total 238 118 Output Total 400 650 Balance -162 -650 118 Weight 95.254 kg Intake: Oral 238 118 Output: Urine 400 650 Other: Voiding Method Indwelling Catheter Indwelling Catheter Indwelling Catheter # Bowel Movements 1 - Exam patient is awake, comfortable, no acute distress. Examination of the heart S1 and S2 Examination of the lungs bilateral breath sounds are heard Abdomen is soft, nontender Examination of the lower extremities shows no significant edema. 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 - Labs CBC & Chem 7: 03/02/24 04:06 03/02/24 04:06 Labs: Abnormal Lab Results - Last 24 Hours (Table) 03/01/24 03/01/24 03/02/24 Range/Units 17:14 21:19 04:06 RBC 3.57 L (4.10-5.20) X 10*6/uL Hgb 10.9 L (12.0-15.0) g/dL Hct 34.7 L (37.2-46.3) % MCV 97.2 H (80.0-97.0) FL MCHC 31.4 L (32.0-37.0) g/dL RDW 15.1 H (11.5-14.5) % Carbon Dioxide (21.6-31.8) mmol/L BUN (9.0-27.0) mg/dL Creatinine (0.6-1.5) mg/dL Est GFR (CKD-EPI) (>=60) BUN/Creatinine Ratio (12.00-20.00) Ratio Glucose (70-110) mg/dL POC Glucose (mg/dL) 171 H 208 H (70-110) mg/dL Total Bilirubin (0.3-1.2) mg/dL ALT (8-44) U/L Total Protein (6.2-8.2) g/dL Albumin (3.8-4.9) g/dL Albumin/Globulin Ratio (1.60-3.17) Ratio 03/02/24 03/02/24 03/02/24 Range/Units 04:06 05:56 11:46 RBC (4.10-5.20) X 10*6/uL Hgb (12.0-15.0) g/dL Hct (37.2-46.3) % MCV (80.0-97.0) FL MCHC (32.0-37.0) g/dL RDW (11.5-14.5) % Carbon Dioxide 32.4 H (21.6-31.8) mmol/L BUN 59.0 H (9.0-27.0) mg/dL Creatinine 2.7 H (0.6-1.5) mg/dL Est GFR (CKD-EPI) 18 L (>=60) BUN/Creatinine Ratio 21.85 H (12.00-20.00) Ratio Glucose 128 H (70-110) mg/dL POC Glucose (mg/dL) 135 H 187 H (70-110) mg/dL Total Bilirubin <0.2 L (0.3-1.2) mg/dL ALT 7 L (8-44) U/L Total Protein 5.5 L (6.2-8.2) g/dL Albumin 3.2 L (3.8-4.9) g/dL Albumin/Globulin Ratio 1.39 L (1.60-3.17) Ratio Microbiology - Last 24 Hours (Table) 02/28/24 13:10 Blood Culture - Preliminary Blood Assessment and Plan Assessment: 1. Acute kidney injury secondary to urine retention. Also component of hypovolemia and hypercalcemia contributing to acute kidney injury. Diuretics currently on hold. UA is benign. No evidence of obstruction on ultrasound of the kidneys. Serum creatinine staying 2.7. Cozaar dose has been decreased. 2. Hypercalcemia associated with use of calcium supplements. Currently improved. 3. Type 2 diabetes 4. Hypertension with elevated blood pressures. Maintained on Cozaar and metoprolol. Heart rate is in the 50s to 60s. 5. History of A. fib maintained on amiodarone 6. Hypothyroidism 7. Chronic kidney disease and gives stage IV with baseline creatinine about 1.6-to 1.8 mg/dL. Etiology is nephrosclerosis. Plan: Continue with Huffman catheter. Decreased dose of Cozaar Possibly restart lower dose of diuretics tomorrow. Repeat labs in a.m. Add Flomax
[2024-03-02 21:17] LABS: Glucose,Whole Blood 237 mg/dL (70-110)
--- NOTE | 2024-03-02 22:33 | CT ---
EXAMINATION TYPE: CT cervical spine wo con DATE OF EXAM: 03/02/2024 COMPARISON: MRI cervical spine one day earlier HISTORY: upper extremity weakness CT DLP: 561.5 mGycm. Automated Exposure Control for Dose Reduction was Utilized. TECHNIQUE: CT scan of the cervical spine is obtained without contrast, axial images are obtained, sa gittal and coronal reformatted images are also reviewed. FINDINGS: Cervical spine is visualized in its entirety from C1 through upper thoracic levels, redemon strates exaggerated cervical curvature without evidence of acute fracture or dislocation. Prevertebr al soft tissue appears within normal limits. The C1-C2 articulation is within normal limits on the c oronal images. Vertebral body heights and disc space heights are fairly well maintained. Multilevel d isc herniations effacing the anterior thecal sac are seen better on recent MRI, most prominent at C3- C4 through the C6-C7 levels. Review of axial images shows some uncovertebral facet degenerative changes bilaterally. Heterogeneous slightly enlarged thyroid gland with rim calcified 1.8 cm right thyroid nodule image 81 is noted. No nemergent thyroid ultrasound follow-up advised to further evaluate if this is not known finding. Lung apices are clear without pneumothorax seen. IMPRESSION: No acute findings are seen. Multilevel fairly advanced degenerative changes redemonstrat ed with multilevel significant spinal canal effacement of stenosis again seen. Findings most prominen t at C3-C4 level. Abnormal cord edema needs to be considered based on recent MRI.
--- NOTE | 2024-03-03 02:55 | P.PN ---
Subjective Progress Note Date: 03/02/24 This is a 78-year-old female who was recently admitted with increasing weakness along with acute kidney injury on top of chronic kidney disease being closely monitored. Patient does have significant history of Parkinson's and has been progressively becoming more weak. Patient does follow with neurologist outpatient and has an appointment next week. Patient was evaluated by neurology recommending MRI of the cervical spine. Patient is afebrile with no reports of chest pain or shortness of breath. Patient is tolerating diet and recommend aspiration precautions and chopped diet with supervision with meals. Recommend PT/OT therapy evaluation and working with daily. Patient is adamant she is go ing home on discharge although unsure of a safe discharge at this point as patient would likely benefit from ECF. 03/02/2024 Patient is seen and evaluated in follow-up this morning with nephrology and neurology following. Patient did have cervical MRI with concerns of possible moderate-severe stenosis recommending orthopedic evaluation. Nephrology following and kidney functions although elevated are stable. Patient continues to make urine and continues with indwelling Huffman catheter. Patient will continue with catheter for now as well as Flomax and have outpatient voiding trial as patient was retaining. Patient evaluated by physical therapy recommending rehab and initially patient was reluctant. Further discussion with family as well as patient and now agreeable to rehab. Referrals placed for [facility] with case management following and patient will also require insurance authorization. Patient is currently afebrile with no reports of chest pain or shortness of breath. Patient tolerating diet and recommend continued dysphagia chopped diet and aspiration precautions. Review of systems: Constitutional: No reports of fatigue, fever, or chills Cardiovascular: No reports of chest pain or palpitations Respiratory: No reports of shortness of breath or cough GI: No reports of nausea, no reports of vomiting, no diarrhea : No reports of dysuria or retention Neurovascular: reports of generalized weakness, difficulty ambulating although has issues chronically outpatient All medications have been reviewed PHYSICAL EXAMINATION: GENERAL: The patient is alert and oriented x4, Well developed, well nourished. HEENT: Pupils are round and equally reacting to light. EOMI. no scleral icterus. No conjunctival pallor. Normocephalic, atraumatic. No pharyngeal erythema. No thyromegaly. CARDIOVASCULAR: S1 and S2 muffled PULMONARY: diminished breath sounds bilaterally with no wheezing or rhonchi noted. ABDOMEN: soft. Nontender on exam. obese. non-distended, normoactive bowel sounds. No palpable organomegaly. MUSCULOSKELETAL: No joint swelling or deformity. EXTREMITIES: No cyanosis, clubbing, or pedal edema. NEUROLOGICAL: Gross neurological examination did not reveal any focal deficits. Continued head tremors and upper extremity tremors, diffuse weakness SKIN: No rashes. Assessment: Increasing weakness, gait dysfunction, possible parkinsonian exacerbation History of Parkinson's Acute on chronic kidney disease with acute tubular necrosis, creatinine 2.7 Hypercalcemia, possibly secondary to supplementation, improved and holding supplementation History of congestive heart failure, not in exacerbation Diabetes mellitus, type II Hypertension Hyperlipidemia Obesity with a BMI 33.9 History of rheumatoid arthritis GI prophylaxis DVT prophylaxis Full code Plan: Recommend to continue with current medications and management with nephrology and neurology following. Patient underwent neurological workup including MRI of the cervical spine showing an exaggerated cervical curvature redemonstrated with advanced multilevel degenerative changes that remain present with multilevel significant spinal canal effacement noted. Recommending orthopedic evaluation and consult was placed. CT cervical spine ordered and pending at this time patient does have an appointment with primary neurologist Dr. Lynn in the outpatient setting recommending outpatient follow-up in the next 1 to 2 weeks Nephrology following continuing to hold diuretics and kidney functions continue to worsen. Creatinine is at 2.7 and recommend follow-up labs Continue with indwelling Huffman catheter and trial void in the outpatient setting once more mobile PT/OT therapy evaluated the patient and patient is significantly weak more so than her normal requiring almost 2-3 people for assistance recommending rehab. Patient initially wanting to go home although patient is now agreeable to rehab after reevaluation with physical therapy and discussing further with family. Case management following and referrals placed to [facility]. Patient was accepted pending insurance authorization. Insurance authorization is submitted at this time. Will discuss with other consultations regarding discharge planning and await orthopedic evaluation and recommendations Due to multiple complex medical issues, prognosis is guarded and high risk for readmissions The impression and plan of care has been dictated by Maeve Lopez, nurse practitioner as directed. Dr. Gucci MD I have performed a history and examination and MDM of this patient, discussed the same with the dictator, and agree with the dictator's assessment and plan as written ,documented as a scribe. Based on total visit time, I have performed more than 50% of the visit. Any additional findings or plans will be noted. Objective - Vital Signs Vital signs: Vital Signs Temp 98.1 F 03/02/24 07:46 Pulse 60 03/02/24 07:46 Resp 17 03/02/24 07:46 BP 137/66 03/02/24 07:46 Pulse Ox 98 03/02/24 07:46 FiO2 Intake & Output 03/01/24 03/02/24 03/02/24 18:59 06:59 18:59 Intake Total 238 Output Total 400 650 Balance -162 -650 Weight 95.254 kg Intake: Oral 238 Output: Urine 400 650 Other: Voiding Method Indwelling Catheter Indwelling Catheter - Labs CBC & Chem 7: 03/02/24 04:06 03/02/24 04:06 Labs: Abnormal Lab Results - Last 24 Hours (Table) 03/01/24 03/01/24 03/01/24 Range/Units 06:50 11:56 17:14 RBC (4.10-5.20) X 10*6/uL Hgb (12.0-15.0) g/dL Hct (37.2-46.3) % MCV (80.0-97.0) FL MCHC (32.0-37.0) g/dL RDW (11.5-14.5) % Carbon Dioxide (21.6-31.8) mmol/L BUN 57.2 H (9.0-27.0) mg/dL Creatinine 2.7 H (0.6-1.5) mg/dL Est GFR (CKD-EPI) 18 L (>=60) BUN/Creatinine Ratio 21.19 H (12.00-20.00) Ratio Glucose (70-110) mg/dL POC Glucose (mg/dL) 175 H 171 H (70-110) mg/dL Total Bilirubin (0.3-1.2) mg/dL ALT (8-44) U/L Total Protein (6.2-8.2) g/dL Albumin (3.8-4.9) g/dL Albumin/Globulin Ratio (1.60-3.17) Ratio Vitamin B12 3368.0 H (200.0-944.0) pg/mL 03/01/24 03/02/24 03/02/24 Range/Units 21:19 04:06 04:06 RBC 3.57 L (4.10-5.20) X 10*6/uL Hgb 10.9 L (12.0-15.0) g/dL Hct 34.7 L (37.2-46.3) % MCV 97.2 H (80.0-97.0) FL MCHC 31.4 L (32.0-37.0) g/dL RDW 15.1 H (11.5-14.5) % Carbon Dioxide 32.4 H (21.6-31.8) mmol/L BUN 59.0 H (9.0-27.0) mg/dL Creatinine 2.7 H (0.6-1.5) mg/dL Est GFR (CKD-EPI) 18 L (>=60) BUN/Creatinine Ratio 21.85 H (12.00-20.00) Ratio Glucose 128 H (70-110) mg/dL POC Glucose (mg/dL) 208 H (70-110) mg/dL Total Bilirubin <0.2 L (0.3-1.2) mg/dL ALT 7 L (8-44) U/L Total Protein 5.5 L (6.2-8.2) g/dL Albumin 3.2 L (3.8-4.9) g/dL Albumin/Globulin Ratio 1.39 L (1.60-3.17) Ratio Vitamin B12 (200.0-944.0) pg/mL 03/02/24 Range/Units 05:56 RBC (4.10-5.20) X 10*6/uL Hgb (12.0-15.0) g/dL Hct (37.2-46.3) % MCV (80.0-97.0) FL MCHC (32.0-37.0) g/dL RDW (11.5-14.5) % Carbon Dioxide (21.6-31.8) mmol/L BUN (9.0-27.0) mg/dL Creatinine (0.6-1.5) mg/dL Est GFR (CKD-EPI) (>=60) BUN/Creatinine Ratio (12.00-20.00) Ratio Glucose (70-110) mg/dL POC Glucose (mg/dL) 135 H (70-110) mg/dL Total Bilirubin (0.3-1.2) mg/dL ALT (8-44) U/L Total Protein (6.2-8.2) g/dL Albumin (3.8-4.9) g/dL Albumin/Globulin Ratio (1.60-3.17) Ratio Vitamin B12 (200.0-944.0) pg/mL Microbiology - Last 24 Hours (Table) 02/28/24 13:10 Blood Culture - Preliminary Blood
[2024-03-03 06:15] LABS: Glucose,Whole Blood 125 mg/dL (70-110)
--- NOTE | 2024-03-03 08:52 | P.PN ---
Subjective Patient is seen in follow-up for acute kidney injury on chronic kidney disease. Creatinine stable at 2.7 yesterday. Has Huffman catheter for urinary retention. Calcium level normal as of yesterday. Oral intake is fair. Denies vomiting or diarrhea. Vital signs are stable. General: No acute distress. HEENT: Head exam is unremarkable. LUNGS: No audible rhonchi or wheezes. HEART: Rate and Rhythm are regular. ABDOMEN: Nontender. EXTREMITITES: Trace edema. Objective - Vital Signs Vital signs: Vital Signs Temp 98.4 F 03/03/24 07:40 Pulse 55 L 03/03/24 07:40 Resp 18 03/03/24 07:40 BP 124/65 03/03/24 07:40 Pulse Ox 99 03/03/24 07:40 FiO2 Intake & Output 03/02/24 03/03/24 03/03/24 18:59 06:59 18:59 Intake Total 568 Output Total 800 500 Balance -232 -500 Intake: Oral 568 Output: Urine 800 500 Other: Voiding Method Indwelling Catheter Indwelling Catheter Indwelling Catheter # Bowel Movements 1 - Labs CBC & Chem 7: 03/02/24 04:06 03/02/24 04:06 Labs: Abnormal Lab Results - Last 24 Hours (Table) 03/02/24 03/02/24 03/02/24 Range/Units 11:46 17:13 21:04 POC Glucose (mg/dL) 187 H 134 H 237 H (70-110) mg/dL 03/03/24 Range/Units 06:14 POC Glucose (mg/dL) 125 H (70-110) mg/dL Microbiology - Last 24 Hours (Table) 02/28/24 13:10 Blood Culture - Preliminary Blood Assessment and Plan Plan: Assessment: 1. Acute kidney injury secondary to urinary retention and hypercalcemia induced ATN. UA benign. No hydronephrosis noted on kidney ultrasound. Creatinine 2.7 yesterday. 2. Chronic kidney disease stage IV baseline creatinine 1.6-1.8 secondary to nephrosclerosis. 3. Diabetes mellitus. 4. Urinary retention. Has Huffman catheter. On Flomax. 5. Hypertension with chronic kidney disease. Controlled. Plan: Encouraged oral intake. Avoid nephrotoxins. Continue to monitor renal function and urine output. Trial of void prior to discharge.
--- NOTE | 2024-03-03 10:59 | P.PN ---
Subjective Progress Note Date: 03/02/24 Patient was seen for a follow-up. Patient is sitting comfortably in the recliner. Continues to have somewhat slow mentation. Patient states that she got up and to couple steps. She complains of having numbness of the left hand. Does have some neck pain. Family mentioned that patient has history of atrial fibrillation, on Eliquis. She follows with Dr. Morris. Patient used to be on amiodarone. Her EF was low, but repeat EF was 40% therefore the dose of amiodarone has been decreased. Patient has history of right hip fracture, right knee surgery. And usually her right leg gives out. Patient with another fall, hit her head and had a bruise. Patient's was also present, who also mentions that patient legs jerk and she falls back. Objective - Vital Signs Vital signs: Vital Signs Temp 97.9 F 03/02/24 14:00 Pulse 61 03/02/24 14:00 Resp 18 03/02/24 14:00 BP 136/65 03/02/24 14:00 Pulse Ox 100 03/02/24 14:00 FiO2 Intake & Output 03/01/24 03/02/24 03/02/24 18:59 06:59 18:59 Intake Total 238 118 Output Total 400 650 Balance -162 -650 118 Weight 95.254 kg Intake: Oral 238 118 Output: Urine 400 650 Other: Voiding Method Indwelling Catheter Indwelling Catheter Indwelling Catheter # Bowel Movements 1 - Exam Patient is alert and awake, continues to have slow mentation, prolonged latency tend to answer questions. Patient is hard of hearing. I again did not notice any myoclonic jerks of outstretched hands. She does have head tremors, and her arm slightly tremors but no myoclonic jerking. 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 In the lower limbs, (right/left) hip flexion is 4-/4-, knee extension 5/5, ankle dorsiflexion 5/5, toe extension 4+/5- Plantars are somewhat flat. - Labs CBC & Chem 7: 03/02/24 04:06 03/02/24 04:06 Labs: Abnormal Lab Results - Last 24 Hours (Table) 03/01/24 03/01/24 03/02/24 Range/Units 17:14 21:19 04:06 RBC 3.57 L (4.10-5.20) X 10*6/uL Hgb 10.9 L (12.0-15.0) g/dL Hct 34.7 L (37.2-46.3) % MCV 97.2 H (80.0-97.0) FL MCHC 31.4 L (32.0-37.0) g/dL RDW 15.1 H (11.5-14.5) % Carbon Dioxide (21.6-31.8) mmol/L BUN (9.0-27.0) mg/dL Creatinine (0.6-1.5) mg/dL Est GFR (CKD-EPI) (>=60) BUN/Creatinine Ratio (12.00-20.00) Ratio Glucose (70-110) mg/dL POC Glucose (mg/dL) 171 H 208 H (70-110) mg/dL Total Bilirubin (0.3-1.2) mg/dL ALT (8-44) U/L Total Protein (6.2-8.2) g/dL Albumin (3.8-4.9) g/dL Albumin/Globulin Ratio (1.60-3.17) Ratio 03/02/24 03/02/24 03/02/24 Range/Units 04:06 05:56 11:46 RBC (4.10-5.20) X 10*6/uL Hgb (12.0-15.0) g/dL Hct (37.2-46.3) % MCV (80.0-97.0) FL MCHC (32.0-37.0) g/dL RDW (11.5-14.5) % Carbon Dioxide 32.4 H (21.6-31.8) mmol/L BUN 59.0 H (9.0-27.0) mg/dL Creatinine 2.7 H (0.6-1.5) mg/dL Est GFR (CKD-EPI) 18 L (>=60) BUN/Creatinine Ratio 21.85 H (12.00-20.00) Ratio Glucose 128 H (70-110) mg/dL POC Glucose (mg/dL) 135 H 187 H (70-110) mg/dL Total Bilirubin <0.2 L (0.3-1.2) mg/dL ALT 7 L (8-44) U/L Total Protein 5.5 L (6.2-8.2) g/dL Albumin 3.2 L (3.8-4.9) g/dL Albumin/Globulin Ratio 1.39 L (1.60-3.17) Ratio Microbiology - Last 24 Hours (Table) 02/28/24 13:10 Blood Culture - Preliminary Blood Assessment and Plan Assessment: * 78-year-old female with history of Parkinson's disease, came with a one-week history of worsening tremors, worsening mobility, and frequent falls. Likely some component of metabolic encephalopathy with increasing tremors, jerking and falling. * Cervical spinal stenosis, severe. * Acute kidney injury * Congestive heart failure * History of atrial fibrillation, on Eliquis. * Hypothyroidism * Diabetes * Hyperlipidemia * Hypertension * Rheumatoid arthritis Plan: * MRI of the cervical spine without contrast was performed. Radiologist repor giovanna exaggerated cervical curvature he demonstrated. Fairly advanced multilevel degenerative changes remain present and more prominent versus prior. Multilevel significant spinal canal effacement is noted. It appears radiologist under reported that extent of spinal stenosis. On my review there is severe spinal stenosis at C3-C4, C4-C5 levels. Probable some associated abnormal spinal cord signal as well. We will consult orthopedic surgery. * CT head revealed no acute process. No evidence of hydrocephalus. * Hydration, management of acute kidney injury per IM. No evidence of UTI. Nephrology also on board. Patient has TERRENCE secondary to urinary retention. Also component of hypovolemia and hypercalcemia contributing to TERRENCE. Hypercalcemia resolved. * Chest x-ray revealed cardiomegaly and increased pulmonary vascular congestion. Patient's previous 2-D echo from 07/23/2022 revealed EF of 20-25%. Will defer to IM for management of CHF. * Continue current medications for Parkinson's including Sinemet 25/100 3 times a day. Patient also takes primidone 75 mg twice a day. * B12 3368, folate 16.4. TSH 6.63 with normal free T4 1.82. We will defer to IM for abnormal TFTs. * Hemoglobin A1c 7.1. Lipid panel with cholesterol 181, LDL 104, HDL 41, triglycerides 176. Continue Lipitor 10 mg daily. * Recommend patient follow up with her neurologist Dr. Lynn in one week. * PT OT, evaluate gait. * Continue Eliquis 5 mg twice a day. * Further management based upon orthopedic spine recommendation.
[2024-03-03 12:08] LABS: Glucose,Whole Blood 279 mg/dL (70-110)
[2024-03-03] MEDS: DEXAMETHASONE SOD PHOSPHATE 4 MG/ML 1 ML VIAL IVP SCH (13:23)
[2024-03-03 15:19] LABS: BUN/Creat Ratio 27.33 Ratio (12.00-20.00); Blood Urea Nitrogen 65.6 mg/dL (9.0-27.0); Calcium 8.7 mg/dL (8.7-10.3); Carbon Dioxide 31.4 mmol/L (21.6-31.8); Chloride 99 mmol/L (96-109); Glucose 168 mg/dL (70-110); Potassium 3.7 mmol/L (3.5-5.5); Sodium 142 mmol/L (135-145)
[2024-03-03 17:01] LABS: Glucose,Whole Blood 201 mg/dL (70-110)
[2024-03-03 20:36] LABS: Glucose,Whole Blood 297 mg/dL (70-110)
[2024-03-03] MEDS: INSULIN DETEMIR (LEVEMIR) 100 UNIT/ML SYR SQ SCH (20:38)
--- NOTE | 2024-03-04 02:52 | PN ---
PROGRESS NOTE DATE OF SERVICE: 03/03/2024 SUBJECTIVE: This 78-year-old woman was admitted with increasing weakness, gait dysfunction, Parkinson's, also had abnormal MRI scan also. Orthopedics is recommending possibly steroids for cervical DJD and possible spinal stenosis. The patient is closely monitored. Sensorium has improved. The patient continues to be confused. PAST MEDICAL HISTORY: Reviewed. REVIEW OF SYSTEMS: Could not be taken. CURRENT MEDICATIONS: Reviewed include Cordarone, doses and rest of medications noted. PHYSICAL EXAMINATION: VITAL SIGNS: Pulse is 55, blood pressure 120/62, respirations 18. HEENT: Conjunctivae normal. CARDIOVASCULAR: S1, S2 muffled. RESPIRATIONS: Few scattered rhonchi and crackles. NERVOUS SYSTEM: Diffusely weak and tremors. LABORATORY DATA: Glucose 279, rest of the labs are noted. ASSESSMENT: 1. Weakness and gait dysfunction, possible Parkinson's exacerbation. 2. Cervical DJD, rule out myelopathy. 3. Acute on chronic kidney disease. 4. Hypercalcemia. 5. History of CHF. 6. Diabetes mellitus, type 2. 7. Multiple complex medical issues. RECOMMENDATIONS: Recommended to continue current management, continue symptomatic treatment. Otherwise, at this time I will recommend IV steroids. Monitor blood sugars closely. If the sugars are elevated more than 300 consistently, the patient might require insulin drip. Otherwise, we will monitor creatinine. Today's labs are not available. We will continue to monitor. Further recommendations to follow. See orders for further details. MMODL / IJN: [id number] /
[2024-03-04 06:35] LABS: Glucose,Whole Blood 241 mg/dL (70-110)
[2024-03-04] MEDS: polyethylene glycoL 3350 17 GM POWD.PACK PO PRN (09:05)
[2024-03-04 09:31] LABS: Basophils # (A) 0.01 X 10*3/uL (0.00-0.10); Basophils % (A) 0.1 %; Eosinophils # (A) 0 X 10*3/uL (0.04-0.35); Eosinophils % (A) 0 %; HCT 36.4 % (37.2-46.3); HGB 11.4 g/dL (12.0-15.0); Lymphocytes # (A) 0.53 X 10*3/uL (0.90-5.00); Lymphocytes % (A) 7.3 %; MCH 29.8 pg (27.0-32.0); MCHC 31.3 g/dL (32.0-37.0); MCV 95.3 FL (80.0-97.0); Mean Platelet Volume 10.3 FL (9.5-12.2); Monocytes # (A) 0.18 X 10*3/uL (0.20-1.00); Monocytes % (A) 2.5 %; NRBC Per 100 WBC 0 X 10*3/uL (0.00-0.01); Neutrophils % (A) 89.7 %; Platelet Count 224 X 10*3/uL (140-440); RBC 3.82 X 10*6/uL (4.10-5.20); WBC 7.25 X 10*3/uL (4.50-10.00)
[2024-03-04 10:18] LABS: BUN/Creat Ratio 28.85 Ratio (12.00-20.00); Calcium 8.6 mg/dL (8.7-10.3); Carbon Dioxide 30.2 mmol/L (21.6-31.8); Chloride 99 mmol/L (96-109); Glucose 251 mg/dL (70-110); Magnesium 2.1 mg/dL (1.5-2.4); Potassium 4.1 mmol/L (3.5-5.5); Sodium 140 mmol/L (135-145)
--- NOTE | 2024-03-04 11:07 | P.PN ---
Subjective Patient is seen in follow-up for acute kidney injury on chronic kidney disease. Renal function stable. Has Huffman catheter for urinary retention. Hypercalcemia resolved. Oral intake is fair. Denies vomiting or diarrhea. Vital signs are stable. General: No acute distress. HEENT: Head exam is unremarkable. On nasal cannula. LUNGS: No audible rhonchi or wheezes. HEART: Rate and Rhythm are regular. ABDOMEN: Nontender. EXTREMITITES: Trace edema. Objective - Vital Signs Vital signs: Vital Signs Temp 97.5 F L 03/04/24 06:30 Pulse 62 03/04/24 06:30 Resp 15 03/04/24 06:30 BP 165/66 03/04/24 06:30 Pulse Ox 99 03/04/24 06:30 FiO2 Intake & Output 03/03/24 03/04/24 03/04/24 18:59 06:59 18:59 Intake Total 1188 350 Output Total 625 1300 Balance 563 -1300 350 Weight 95 kg Intake: Oral 1188 350 Output: Urine 625 1300 Other: Voiding Method Indwelling Catheter Indwelling Catheter Indwelling Catheter - Labs CBC & Chem 7: 03/04/24 05:13 03/04/24 05:13 Labs: Abnormal Lab Results - Last 24 Hours (Table) 03/03/24 03/03/24 03/03/24 Range/Units 04:09 12:06 16:57 RBC (4.10-5.20) X 10*6/uL Hgb (12.0-15.0) g/dL Hct (37.2-46.3) % MCHC (32.0-37.0) g/dL RDW (11.5-14.5) % Lymphocytes # (0.90-5.00) X 10*3/uL Monocytes # (0.20-1.00) X 10*3/uL Eosinophils # (0.04-0.35) X 10*3/uL BUN 65.6 H (9.0-27.0) mg/dL Creatinine 2.4 H (0.6-1.5) mg/dL Est GFR (CKD-EPI) 20 L (>=60) BUN/Creatinine Ratio 27.33 H (12.00-20.00) Ratio Glucose 168 H (70-110) mg/dL POC Glucose (mg/dL) 279 H 201 H (70-110) mg/dL Calcium (8.7-10.3) mg/dL 03/03/24 03/04/24 03/04/24 Range/Units 20:24 05:13 05:13 RBC 3.82 L (4.10-5.20) X 10*6/uL Hgb 11.4 L (12.0-15.0) g/dL Hct 36.4 L (37.2-46.3) % MCHC 31.3 L (32.0-37.0) g/dL RDW 15.0 H (11.5-14.5) % Lymphocytes # 0.53 L (0.90-5.00) X 10*3/uL Monocytes # 0.18 L (0.20-1.00) X 10*3/uL Eosinophils # 0 L (0.04-0.35) X 10*3/uL BUN 75.0 H (9.0-27.0) mg/dL Creatinine 2.6 H (0.6-1.5) mg/dL Est GFR (CKD-EPI) 19 L (>=60) BUN/Creatinine Ratio 28.85 H (12.00-20.00) Ratio Glucose 251 H (70-110) mg/dL POC Glucose (mg/dL) 297 H (70-110) mg/dL Calcium 8.6 L (8.7-10.3) mg/dL 03/04/24 Range/Units 06:32 RBC (4.10-5.20) X 10*6/uL Hgb (12.0-15.0) g/dL Hct (37.2-46.3) % MCHC (32.0-37.0) g/dL RDW (11.5-14.5) % Lymphocytes # (0.90-5.00) X 10*3/uL Monocytes # (0.20-1.00) X 10*3/uL Eosinophils # (0.04-0.35) X 10*3/uL BUN (9.0-27.0) mg/dL Creatinine (0.6-1.5) mg/dL Est GFR (CKD-EPI) (>=60) BUN/Creatinine Ratio (12.00-20.00) Ratio Glucose (70-110) mg/dL POC Glucose (mg/dL) 241 H (70-110) mg/dL Calcium (8.7-10.3) mg/dL Assessment and Plan Plan: Assessment: 1. Acute kidney injury secondary to urinary retention and hypercalcemia induced ATN. UA benign. No hydronephrosis noted on kidney ultrasound. Renal function stable. Creatinine 2.6. 2. Chronic kidney disease stage IV baseline creatinine 1.6-1.8 secondary to nephrosclerosis. 3. Diabetes mellitus. 4. Urinary retention. Has Huffman catheter. On Flomax. 5. Hypertension with chronic kidney disease. Plan: Encouraged oral intake. Avoid nephrotoxins. Continue to monitor renal function and urine output. Trial of void prior to discharge. Add amlodipine 5 mg once daily if blood pressure staying persistently above 140/90. Follow-up outpatient 1 week postdischarge.
[2024-03-04 12:17] LABS: Glucose,Whole Blood 346 mg/dL (70-110)
[2024-03-04 16:51] LABS: Glucose,Whole Blood 348 mg/dL (70-110)
[2024-03-04 20:12] LABS: Glucose,Whole Blood 311 mg/dL (70-110)
[2024-03-04] MEDS: METOPROLOL SUCCINATE (ER) 50 MG TAB.ER.24H PO SCH (20:41)
[2024-03-04] MEDS: INSULIN DETEMIR (LEVEMIR) 100 UNIT/ML SYR SQ SCH (20:41)
--- NOTE | 2024-03-05 01:49 | P.PN ---
Subjective Progress Note Date: 03/04/24 Patient is seen for follow-up. Offers no new change. Patient is sitting comfortably in the recliner. Patient continues to have somewhat slow mentation. Family mentioned that patient has history of atrial fibrillation, on Eliquis. She follows with Dr. Morris. Patient used to be on amiodarone. Her EF was low, but repeat EF was 40% therefore the dose of amiodarone has been decreased. Patient has history of right hip fracture, right knee surgery. And usually her right leg gives out. Patient with another fall, hit her head and had a bruise. Patient's was also present, who also mentions that patient legs jerk and she falls back. Objective - Vital Signs Vital signs: Vital Signs Temp 97.5 F L 03/04/24 06:30 Pulse 62 03/04/24 06:30 Resp 15 03/04/24 06:30 BP 165/66 03/04/24 06:30 Pulse Ox 99 03/04/24 06:30 FiO2 Intake & Output 03/03/24 03/04/24 03/04/24 18:59 06:59 18:59 Intake Total 1188 350 Output Total 625 1300 Balance 563 -1300 350 Weight 95 kg Intake: Oral 1188 350 Output: Urine 625 1300 Other: Voiding Method Indwelling Catheter Indwelling Catheter Indwelling Catheter - Exam Patient is alert and awake, continues to have slow mentation, prolonged latency tend to answer questions. Patient is hard of hearing. I again did not notice any myoclonic jerks of outstretched hands. She does have head tremors, and her arm slightly tremors but no myoclonic jerking. 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 In the lower limbs, (right/left) hip flexion is 4-/4-, knee extension 5/5, ankle dorsiflexion 5/5, toe extension 4+/5- Plantars are somewhat flat. - Labs CBC & Chem 7: 03/04/24 05:13 03/04/24 05:13 Labs: Abnormal Lab Results - Last 24 Hours (Table) 03/03/24 03/03/24 03/03/24 Range/Units 04:09 12:06 16:57 RBC (4.10-5.20) X 10*6/uL Hgb (12.0-15.0) g/dL Hct (37.2-46.3) % MCHC (32.0-37.0) g/dL RDW (11.5-14.5) % Lymphocytes # (0.90-5.00) X 10*3/uL Monocytes # (0.20-1.00) X 10*3/uL Eosinophils # (0.04-0.35) X 10*3/uL BUN 65.6 H (9.0-27.0) mg/dL Creatinine 2.4 H (0.6-1.5) mg/dL Est GFR (CKD-EPI) 20 L (>=60) BUN/Creatinine Ratio 27.33 H (12.00-20.00) Ratio Glucose 168 H (70-110) mg/dL POC Glucose (mg/dL) 279 H 201 H (70-110) mg/dL Calcium (8.7-10.3) mg/dL 03/03/24 03/04/24 03/04/24 Range/Units 20:24 05:13 05:13 RBC 3.82 L (4.10-5.20) X 10*6/uL Hgb 11.4 L (12.0-15.0) g/dL Hct 36.4 L (37.2-46.3) % MCHC 31.3 L (32.0-37.0) g/dL RDW 15.0 H (11.5-14.5) % Lymphocytes # 0.53 L (0.90-5.00) X 10*3/uL Monocytes # 0.18 L (0.20-1.00) X 10*3/uL Eosinophils # 0 L (0.04-0.35) X 10*3/uL BUN 75.0 H (9.0-27.0) mg/dL Creatinine 2.6 H (0.6-1.5) mg/dL Est GFR (CKD-EPI) 19 L (>=60) BUN/Creatinine Ratio 28.85 H (12.00-20.00) Ratio Glucose 251 H (70-110) mg/dL POC Glucose (mg/dL) 297 H (70-110) mg/dL Calcium 8.6 L (8.7-10.3) mg/dL 03/04/24 Range/Units 06:32 RBC (4.10-5.20) X 10*6/uL Hgb (12.0-15.0) g/dL Hct (37.2-46.3) % MCHC (32.0-37.0) g/dL RDW (11.5-14.5) % Lymphocytes # (0.90-5.00) X 10*3/uL Monocytes # (0.20-1.00) X 10*3/uL Eosinophils # (0.04-0.35) X 10*3/uL BUN (9.0-27.0) mg/dL Creatinine (0.6-1.5) mg/dL Est GFR (CKD-EPI) (>=60) BUN/Creatinine Ratio (12.00-20.00) Ratio Glucose (70-110) mg/dL POC Glucose (mg/dL) 241 H (70-110) mg/dL Calcium (8.7-10.3) mg/dL Assessment and Plan Assessment: * 78-year-old female with history of Parkinson's disease, came with a one-week history of worsening tremors, worsening mobility, and frequent falls. Likely some component of metabolic encephalopathy with increasing tremors, jerking and falling. * Cervical spinal stenosis, severe at C3 4 and C4 5 levels causing myelomalacia and cord signal changes. This is likely the cause of recurrent falls. * Acute kidney injury * Congestive heart failure * History of atrial fibrillation, on Eliquis. * Hypothyroidism * Diabetes * Hyperlipidemia * Hypertension * Rheumatoid arthritis Plan: * MRI of the cervical spine without contrast was performed. Radiologist reported exaggerated cervical curvature he demonstrated. Fairly advanced multilevel degenerative changes remain present and more prominent versus prior. Multilevel significant spinal canal effacement is noted. It appears radiologist under reported that extent of spinal stenosis. On my review there is severe spinal stenosis at C3-C4, C4-C5 levels. Probable some associated abnormal spinal cord signal as well. * Orthopedic surgery input appreciated. Patient to be tried on conservative treatment before considering decompressive surgery. * CT head revealed no acute process. No evidence of hydrocephalus. * Hydration, management of acute kidney injury per IM. No evidence of UTI. Nephrology also on board. Patient has TERRENCE secondary to urinary retention. Also component of hypovolemia and hypercalcemia contributing to TERRENCE. Hypercalcemia resolved. * Chest x-ray revealed cardiomegaly and increased pulmonary vascular congestion. Patient's previous 2-D echo from 07/23/2022 revealed EF of 20-25%. Will defer to IM for management of CHF. * Continue current medications for Parkinson's including Sinemet 25/100 3 times a day. Patient also takes primidone 75 mg twice a day. * B12 3368, folate 16.4. TSH 6.63 with normal free T4 1.82. We will defer to IM for abnormal TFTs. * Hemoglobin A1c 7.1. Lipid panel with cholesterol 181, LDL 104, HDL 41, triglycerides 176. Continue Lipitor 10 mg daily. * Recommend patient follow up with her neurologist Dr. Lynn in one week. * PT OT, evaluate gait. * Continue Eliquis 5 mg twice a day. * Dr. Ezequiel Phillips to resume neurology service in the morning.
--- NOTE | 2024-03-05 03:10 | PN ---
PROGRESS NOTE DATE OF SERVICE: 03/04/2024 SUBJECTIVE: This is a 78-year-old woman, who was admitted with increasing weakness, gait dysfunction, Parkinson's, also had an abnormal MRI scan of the cervical spine. The patient started on IV steroids. The patient is less confused today. The patient might require PT/OT evaluation. We will discuss with daughter. Creatinine is 2.6 compared to 2.4 yesterday. Blood sugars are elevated. PAST MEDICAL HISTORY: Reviewed. REVIEW OF SYSTEMS: 14-point review is negative. CURRENT MEDICATIONS: Reviewed and include IV dexamethasone, rest of medication and doses are noted. PHYSICAL EXAMINATION: VITAL SIGNS: Pulse is 62, blood pressure n respirations 16. CHEST: Few scattered rhonchi. ABDOMEN: Soft. NERVOUS SYSTEM: Diffusely weak. Tremors also present. LABORATORY DATA: Noted. ASSESSMENT: 1. Weakness and gait dysfunction, possible Parkinson's exacerbation. 2. Cervical DJD, rule out myelopathy. 3. Gait dysfunction. 4. Acute on chronic kidney disease. 5. Diabetes mellitus, type 2. 6. Hypercalcemia. 7. History of congestive heart failure. 8. Multiple complex medical issues. RECOMMENDATIONS: Recommend to continue current management and treatment. Otherwise, we will repeat a chest x-ray to evaluate the fluid status. Otherwise, continue with dexamethasone. We will increase the dose of long-acting insulin for now and continue to monitor. Guarded prognosis. Further recommendations to follow. See orders for details, and we will adjust the blood pressure medications as well. MMODL / IJN: [id number] / MTDD
[2024-03-05 05:43] LABS: Glucose,Whole Blood 187 mg/dL (70-110)
[2024-03-05 07:15] VITALS: RESP 16
--- NOTE | 2024-03-05 07:35 | XR ---
EXAMINATION TYPE: XR chest 1V portable DATE OF EXAM: 03/05/2024 COMPARISON: 02/29/2024 HISTORY: Shortness of breath TECHNIQUE: Single frontal view of the chest is obtained. FINDINGS: Mild cardiomegaly with bilateral subsegmental consolidation and elevated right hemidiaphra gm. A right pleural effusion. Coarsened interstitium. No pneumothorax. Arthropathy of the shoulders. Degenerative changes in the spine. IMPRESSION: Basilar atelectasis or infiltrate. Interstitial proved, correlate for improving venous c ongestion or interstitial pneumonitis.
[2024-03-05 08:47] LABS: Basophils # (A) 0.01 X 10*3/uL (0.00-0.10); Basophils % (A) 0.1 %; Eosinophils # (A) 0 X 10*3/uL (0.04-0.35); Eosinophils % (A) 0 %; HCT 35.5 % (37.2-46.3); HGB 11.2 g/dL (12.0-15.0); Lymphocytes # (A) 0.71 X 10*3/uL (0.90-5.00); Lymphocytes % (A) 7.1 %; MCH 29.6 pg (27.0-32.0); MCHC 31.5 g/dL (32.0-37.0); MCV 93.7 FL (80.0-97.0); Mean Platelet Volume 10.6 FL (9.5-12.2); Monocytes # (A) 0.37 X 10*3/uL (0.20-1.00); Monocytes % (A) 3.7 %; NRBC Per 100 WBC 0 X 10*3/uL (0.00-0.01); Neutrophils % (A) 88.8 %; Platelet Count 238 X 10*3/uL (140-440); RBC 3.79 X 10*6/uL (4.10-5.20); RDW 15.1 % (11.5-14.5); WBC 10.02 X 10*3/uL (4.50-10.00)
[2024-03-05 09:03] LABS: BUN/Creat Ratio 34.91 Ratio (12.00-20.00); Blood Urea Nitrogen 80.3 mg/dL (9.0-27.0); Calcium 8.6 mg/dL (8.7-10.3); Carbon Dioxide 29.6 mmol/L (21.6-31.8); Chloride 100 mmol/L (96-109); Glucose 207 mg/dL (70-110); Potassium 4.1 mmol/L (3.5-5.5); Sodium 140 mmol/L (135-145)
--- NOTE | 2024-03-05 11:39 | P.PN ---
Subjective Patient is seen in follow-up for acute kidney injury on chronic kidney disease. Renal function better. Has Huffman catheter for urinary retention. Hypercalcemia resolved. Oral intake is fair. Denies vomiting or diarrhea. Vital signs are stable. General: No acute distress. HEENT: Head exam is unremarkable. On nasal cannula. LUNGS: No audible rhonchi or wheezes. HEART: Rate and Rhythm are regular. ABDOMEN: Nontender. EXTREMITITES: Trace edema. Objective - Vital Signs Vital signs: Vital Signs Temp 98.4 F 03/05/24 07:14 Pulse 62 03/05/24 08:00 Resp 16 03/05/24 08:00 BP 162/66 03/05/24 07:14 Pulse Ox 96 03/05/24 07:14 FiO2 Intake & Output 03/04/24 03/05/24 03/05/24 18:59 06:59 18:59 Intake Total 940 0 Output Total 550 1500 Balance 390 -1500 0 Weight 97 kg Intake: Oral 940 0 Output: Urine 550 1500 Other: Voiding Method Indwelling Catheter Indwelling Catheter Indwelling Catheter # Voids 1 - Labs CBC & Chem 7: 03/05/24 03:46 03/05/24 03:46 Labs: Abnormal Lab Results - Last 24 Hours (Table) 03/04/24 03/04/24 03/04/24 Range/Units 12:14 16:48 20:11 WBC (4.50-10.00) X 10*3/uL RBC (4.10-5.20) X 10*6/uL Hgb (12.0-15.0) g/dL Hct (37.2-46.3) % MCHC (32.0-37.0) g/dL RDW (11.5-14.5) % Neutrophils # (1.80-7.70) X 10*3/uL Lymphocytes # (0.90-5.00) X 10*3/uL Eosinophils # (0.04-0.35) X 10*3/uL BUN (9.0-27.0) mg/dL Creatinine (0.6-1.5) mg/dL Est GFR (CKD-EPI) (>=60) BUN/Creatinine Ratio (12.00-20.00) Ratio Glucose (70-110) mg/dL POC Glucose (mg/dL) 346 H 348 H 311 H (70-110) mg/dL Calcium (8.7-10.3) mg/dL 03/05/24 03/05/24 03/05/24 Range/Units 03:46 03:46 05:40 WBC 10.02 H (4.50-10.00) X 10*3/uL RBC 3.79 L (4.10-5.20) X 10*6/uL Hgb 11.2 L (12.0-15.0) g/dL Hct 35.5 L (37.2-46.3) % MCHC 31.5 L (32.0-37.0) g/dL RDW 15.1 H (11.5-14.5) % Neutrophils # 8.90 H (1.80-7.70) X 10*3/uL Lymphocytes # 0.71 L (0.90-5.00) X 10*3/uL Eosinophils # 0 L (0.04-0.35) X 10*3/uL BUN 80.3 H (9.0-27.0) mg/dL Creatinine 2.3 H (0.6-1.5) mg/dL Est GFR (CKD-EPI) 21 L (>=60) BUN/Creatinine Ratio 34.91 H (12.00-20.00) Ratio Glucose 207 H (70-110) mg/dL POC Glucose (mg/dL) 187 H (70-110) mg/dL Calcium 8.6 L (8.7-10.3) mg/dL Microbiology - Last 24 Hours (Table) 02/28/24 13:10 Blood Culture - Final Blood Assessment and Plan Plan: Assessment: 1. Acute kidney injury secondary to urinary retention and hypercalcemia induced ATN. UA benign. No hydronephrosis noted on kidney ultrasound. Renal function better -creatinine 2.3. 2. Chronic kidney disease stage IV baseline creatinine 1.6-1.8 secondary to nephrosclerosis. 3. Diabetes mellitus. 4. Urinary retention. Has Huffman catheter. On Flomax. 5. Hypertension with chronic kidney disease. Exacerbated by steroids. Plan: Encouraged oral intake. Avoid nephrotoxins. Continue to monitor renal function and urine output. Trial of void today. Add amlodipine 5 mg once daily. Follow-up outpatient 1 week postdischarge.
[2024-03-05 12:06] LABS: Glucose,Whole Blood 317 mg/dL (70-110)
[2024-03-05] MEDS: amLODIPine 5 MG TAB PO SCH (13:05)
--- NOTE | 2024-03-05 14:07 | P.DS ---
Providers Date of admission: 03/05/24 08:22 Expected date of discharge: 03/05/24 Attending physician: Aron James MD Consults: 02/27/24 16:09 Consult Physician Routine Consulting Provider: Jaylin James Consult Reason/Comments: parkinsons weakness Do you want consulting provider notified?: Yes 02/27/24 16:11 Consult Physician Routine Consulting Provider: Delia Ball Consult Reason/Comments: arf, high calcium Do you want consulting provider notified?: Yes 03/02/24 12:49 Consult Physician Routine Consulting Provider: Faustino Andrew Consult Reason/Comments: Frequent falls, significant cervical spinal stenosis Do you want consulting provider notified?: Yes Primary care physician: Alberto Lehman [facility] Course: Final diagnosis Increasing weakness, gait dysfunction, possible parkinsonian exacerbation History of Parkinson's Acute on chronic kidney disease with acute tubular necrosis, creatinine 2.7 Hypercalcemia, possibly secondary to supplementation, improved and holding supplementation History of congestive heart failure, not in exacerbation Urinary retention requiring indwelling Huffman catheter Diabetes mellitus, type II, uncontrolled with hyperglycemia, steroid effect as well Hypertension Hyperlipidemia Obesity with a BMI 33.9 History of rheumatoid arthritis GI prophylaxis DVT prophylaxis Full code Discharge disposition Patient is being discharged in a stable condition with guarded prognosis to [facility]. Patient will follow-up with Dr. Lehman in the outpatient setting upon discharge. Patient is to continue with current medications and continuing to hold diuretics and outpatient follow-up with repeat labs of CBC, CMP, magnesium along with nephrology as scheduled. Patient to follow-up with primary neurologist Dr. Lynn outpatient in the next 1 to 2 weeks. Patient to follow-up with orthopedics outpatient on discharge from [facility]. Continue a prednisone taper on discharge. Total time taken is greater than 35 minutes. Hospital course This is a 78-year-old female who was recently admitted with increased weakness and acute kidney injury being closely monitored. Patient does have significant history of Parkinson's and progressively becoming more weak. Patient normally gets around with some assistance and has caregivers with a walker although has been progressively more weak and having more falls and evaluated by physical therapy recommending rehab and initially patient was reluctant wanting to go home. Patient evaluated again and after discussion with family is now agreeable to rehab. Patient with elevated kidney functions although somewhat stable with nephrology following recommending continuing on current regimen and holding diuretics for now. Patient have repeat CBC, CMP, magnesium in 2 to 3 days and close outpatient follow-up with nephrology. Patient was retaining requiring indwelling Huffman catheter and attempting a trial void. Discussed with patient and if retaining will continue indwelling Huffman catheter and outpatient trial void once more mobile. Continue with Flomax for now. Patient does have difficulties and is continued on dysphagia chopped diet recommend supervision with meals and aspiration precautions. Blood sugars are fairly uncontrolled and elevated being on steroids recommend to continue with current regimen and adjust accordingly once sugars are better controlled. Blood sugars have been elevated while on steroids as well. Continue renal diabetic diet. Patient has been instructed to follow-up with primary care provider on discharge. Please refer to other consultation notes for further HPI. Currently no reports of chest pain, shortness of breath, or palpitations. Patient is afebrile. No reports of nausea or vomiting and patient is tolerating diet. Patient will be going to [facility] today. Guarded prognosis and high risk for readmissions given significant comorbidities Physical exam: Gen: This is a 78-year-old female who is awake, alert and oriented x 3, well- developed, well-nourished, elderly appearing, obese HEENT: Head is atraumatic, normocephalic. Pupils equal, round. Sclerae is anicteric. NECK: Supple. No JVD. No lymphadenopathy. No thyromegaly. LUNGS: Diminished breath sounds bilaterally otherwise clear to auscultation. No wheezes or rhonchi. No intercostal retractions. HEART: S1, S2 are muffled ABDOMEN: Soft. Obese bowel sounds are present. No masses. No tenderness. EXTREMITIES: No pedal edema. No calf tenderness. Generalized bilateral lower extremity edema noted NEUROLOGICAL: Patient is awake, alert and oriented x3. Cranial nerves 2 through 12 are 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., Parkinson's tremors noted of upper extremities including head and neck, diffusely weak Please refer to medication reconciliation sheet for a list of medications. The impression and plan of care has been dictated by Maeve Lopez, Nurse Practitioner as directed. Dr. Gucci MD I have performed a history and examination and MDM of this patient, discussed the same with the dictator, and agree with the dictator's assessment and plan as written ,documented as a scribe. Based on total visit time, I have performed more than 50% of the visit. Patient Condition at Discharge: Fair Plan - Discharge Summary Discharge Rx Participant: No New Discharge Prescriptions: New amLODIPine [Norvasc] 5 mg PO DAILY tab Metoprolol Succinate (ER) [Toprol XL] 50 mg PO BID tab Thiamine [Vitamin B-1] 100 mg PO BID-W/MEALS tab Tamsulosin [Flomax] 0.4 mg PO PC-SUPPER cap Folic Acid 1 mg PO DAILY@1200 tab Insulin Detemir (Levemir) [Levemir] 40 unit SQ BID@0700,2100 each Multivitamins, Thera [Multivitamin (formulary)] 1 each PO DAILY@1200 tab INSULIN ASPART (NovoLOG) [NovoLOG (formulary)] 0 unit SQ ACHS each predniSONE 10 mg PO DIRECTED #40 tab Continue Simvastatin [Zocor] 20 mg PO HS Primidone 75 mg PO BID Escitalopram Oxalate [Lexapro] 10 mg PO DAILY Acetaminophen Tab [Tylenol] 650 mg PO Q6HR PRN tab PRN Reason: Mild Pain Or Fever > 100.5 Levothyroxine Sodium [Synthroid] 75 mcg PO AC-BRKFST Losartan Potassium 50 mg PO DAILY Amiodarone [Cordarone] 100 mg PO DAILY Nitroglycerin Sl Tabs [Nitrostat] 0.4 mg SUBLINGUAL Q5M PRN PRN Reason: Chest Pain Docusate [Colace] 100 mg PO DAILY Cyanocobalamin (Vitamin B-12) [Vitamin B-12] 1,000 mcg PO DAILY Simethicone 180 mg PO ACHS PRN PRN Reason: gas/bloating busPIRone HCl [Buspar] 5 mg PO DAILY allopurinoL [Zyloprim] 300 mg PO DAILY Apixaban [Eliquis] 5 mg PO BID tab Carbidopa-Levodopa 25-100 mg [Sinemet 25-100 mg] 1 tab PO TID-W/MEALS polyethylene glycoL 3350 [Miralax] 17 gm PO DAILY PRN PRN Reason: Constipation Denosumab [Prolia] 60 mg SQ Q180D Mirabegron [Myrbetriq] 25 mg PO DIRECTED PRN PRN Reason: bladder issues Discontinued Bumetanide [BUMEX] 2 mg PO BID Insulin Glargine,Hum.rec.anlog [Lantus Solostar Pen] 60 units SQ DAILY Metoprolol Succinate (ER) [Toprol XL] 25 mg PO BID tab Insulin Glargine,Hum.rec.anlog [Lantus Solostar Pen] 20 units SQ HS PRN PRN Reason: high blood sugar Insulin Lispro [humaLOG Kwikpen] 16 unit SQ TID-W/MEALS Potassium Chloride ER [K-Dur 20] 20 meq PO DAILY Calcium Carbonate [Calcium] 1,200 mg PO HS Discharge Medication List Simvastatin [Zocor] 20 mg PO HS 07/18/14 [History] Primidone 75 mg PO BID 07/23/22 [History] allopurinoL [Zyloprim] 300 mg PO DAILY 07/23/22 [History] busPIRone HCl [Buspar] 5 mg PO DAILY 07/23/22 [History] Apixaban [Eliquis] 5 mg PO BID tab 08/04/22 [Rx] Carbidopa-Levodopa 25-100 mg [Sinemet 25-100 mg] 1 tab PO TID-W/MEALS 09/14/23 [History] Escitalopram Oxalate [Lexapro] 10 mg PO DAILY 09/14/23 [History] Acetaminophen Tab [Tylenol] 650 mg PO Q6HR PRN tab 09/28/23 [Rx] Amiodarone [Cordarone] 100 mg PO DAILY 02/27/24 [History] Cyanocobalamin (Vitamin B-12) [Vitamin B-12] 1,000 mcg PO DAILY 02/27/24 [History] Denosumab [Prolia] 60 mg SQ Q180D 02/27/24 [History] Docusate [Colace] 100 mg PO DAILY 02/27/24 [History] Levothyroxine Sodium [Synthroid] 75 mcg PO AC-BRKFST 02/27/24 [History] Losartan Potassium 50 mg PO DAILY 02/27/24 [History] Mirabegron [Myrbetriq] 25 mg PO DIRECTED PRN 02/27/24 [History] Nitroglycerin Sl Tabs [Nitrostat] 0.4 mg SUBLINGUAL Q5M PRN 02/27/24 [History] Simethicone 180 mg PO ACHS PRN 02/27/24 [History] polyethylene glycoL 3350 [Miralax] 17 gm PO DAILY PRN 02/27/24 [History] Folic Acid 1 mg PO DAILY@1200 tab 03/05/24 [Rx] INSULIN ASPART (NovoLOG) [NovoLOG (formulary)] 0 unit SQ ACHS each 03/05/24 [Rx] Insulin Detemir (Levemir) [Levemir] 40 unit SQ BID@0700,2100 each 03/05/24 [Rx] Metoprolol Succinate (ER) [Toprol XL] 50 mg PO BID tab 03/05/24 [Rx] Multivitamins, Thera [Multivitamin (formulary)] 1 each PO DAILY@1200 tab 03/05/24 [Rx] Tamsulosin [Flomax] 0.4 mg PO PC-SUPPER cap 03/05/24 [Rx] Thiamine [Vitamin B-1] 100 mg PO BID-W/MEALS tab 03/05/24 [Rx] amLODIPine [Norvasc] 5 mg PO DAILY tab 03/05/24 [Rx] predniSONE 10 mg PO DIRECTED #40 tab 03/05/24 [Rx] Follow up Appointment(s)/Referral(s): [facility], [NON-STAFF] - 1 Week Alberto Lehman DO [Primary Care Provider] - 1-2 days Faustino Andrew DO [Doctor of Osteopathic Medicine] - 2 Weeks Nicolás Lynn MD [REFERRING] - 1 Week Germán Chaudhary DO [STAFF PHYSICIAN] - 1 Week Activity/Diet/Wound Care/Special Instructions: Patient is going to [facility] as tolerated Continue holding diuretics for now and follow-up on repeat labs Continue with indwelling Huffman catheter if continuing to retain and trial of void once more mobile Follow-up nephrology outpatient and repeat labs of CBC, CMP, magnesium in 2 to 3 days Continue dysphagia 3 chopped diet and supervision with meals with renal diet Continue prednisone taper Continue monitoring blood sugars ACHS Adjust long-acting once sugars are more stabilized after taking steroids Follow-up with primary neurologist in 1 to 2 weeks Follow-up orthopedics outpatient once discharged from [facility] Discharge Disposition: TRANSFER TO SNF/ECF
[2024-03-05 14:31] VITALS: BP 171/61; PULSE 65; TEMP 97.9
--- NOTE | 2024-03-06 21:42 | CDI ---
Documentation Clarification Form Date: 03/06/2024 09:26:18 PM From: Sheela Galan Phone: Admit Date: 03/05/2024 08:22:00 AM Patient Name: Luisa Umaña Visit Number: [id number] Discharge Date: 03/05/2024 04:29:00 PM ATTENTION: The Clinical Documentation Specialists (CDI) and [facility] Coding Staff appreciate your assistance in clarifying documentation. Please respond to the clarification below the line at the bottom and electronically sign. The CDI & [facility] Coding staff will review the response and follow-up if needed. Please note: Queries are made part of the Legal Health Record. If you have any questions, please contact the author of this message via ITS. Dr. Evelio Duckworth Your patient has the documented diagnosis of CHF,notin exacerbation per ED Note and Progress Notes. Additional information regarding the type of CHF is requested. History/Risk Factors: 78yo F, Parkinsons disease, frequent falls, metabolic encephalopathy, cervical stenosis, myelomalacia, TERRENCE on CKD4, DMII, CHF, A Fib, HLD, HTN, RA, Hypothyroidism Clinical Indicators: VS/Pulse OX: 91-96 BNP: 475-477 Echocardiogram Results: 2-D echo from 07/23/2022 revealed EF of 20-25%. Chest X Ray: Cardiomegalyand mild pulmonary vascularcongestion. Correlate with BNP for congestive heart failure. Treatment: Patient is to continue with current medications and continuing to hold diuretics and outpatientfollow-upwith repeat labs of CBC, CMP, and magnesium along with nephrology as scheduled. In your professional opinion, can you please clarify the type of CHF if known? [ ] Chronic Systolic Heart Failure (reduced EF) [ ] Chronic Diastolic Heart Failure (preserved EF) [ ] Chronic Systolic & Diastolic Heart Failure [ ] Other, please specify [ ] Unable to determine (Template Last Revised: October 2020) Chronic Systolic Heart Failure (reduced EF) MTDD
== END 2024-03-05 16:29 | DRG 56 ==
LOC: EC 13:21 → 5NMEDONC 18:57 → 1SOBS 02-28 12:27 → 6NMEDSUR 02-29 13:56 → OBSVTOIN 03-05 08:22
PROVIDERS: ADMIT Internal Medicine; ATTEND Internal Medicine
DX: G20.A1 Parkinson's disease without dyskinesia, without mention of fluctuations (principal); G93.41 Metabolic encephalopathy; N17.0 Acute kidney failure with tubular necrosis; G95.89 Other specified diseases of spinal cord; I13.0 Hypertensive heart and chronic kidney disease with heart failure and stage 1 through stage 4 chronic kidney disease, or unspecified chronic kidney disease; N18.4 Chronic kidney disease, stage 4 (severe); I50.22 Chronic systolic (congestive) heart failure; E11.22 Type 2 diabetes mellitus with diabetic chronic kidney disease; M06.9 Rheumatoid arthritis, unspecified; E11.65 Type 2 diabetes mellitus with hyperglycemia; Z79.4 Long term (current) use of insulin; I48.91 Unspecified atrial fibrillation; M50.21 Other cervical disc displacement, high cervical region; M50.223 Other cervical disc displacement at C6-C7 level; E03.9 Hypothyroidism, unspecified; Z68.33 Body mass index [BMI] 33.0-33.9, adult; E66.9 Obesity, unspecified; E86.1 Hypovolemia; E78.5 Hyperlipidemia, unspecified; E83.52 Hypercalcemia; T38.0X5A Adverse effect of glucocorticoids and synthetic analogues, initial encounter; N39.498 Other specified urinary incontinence; M48.02 Spinal stenosis, cervical region; M47.812 Spondylosis without myelopathy or radiculopathy, cervical region; R33.9 Retention of urine, unspecified; S00.93XA Contusion of unspecified part of head, initial encounter; H91.90 Unspecified hearing loss, unspecified ear; W18.30XA Fall on same level, unspecified, initial encounter; R29.6 Repeated falls; Y92.002 Bathroom of unspecified non-institutional (private) residence as the place of occurrence of the external cause; Z96.651 Presence of right artificial knee joint; Z79.890 Hormone replacement therapy; Z79.899 Other long term (current) drug therapy; Z79.01 Long term (current) use of anticoagulants; Z91.81 History of falling; Z87.81 Personal history of (healed) traumatic fracture; Z11.52 Encounter for screening for COVID-19
CPT/HCPCS: 36415; 51702; 70450; 71045; 71046; 72125; 72141; 76770; 80048; 80053; 81003; 82550; 82607; 82746; 83036; 83605; 83735; 83880; 84439; 84443; 84481; 84484; 85025; 85610; 85730; 87040; 87636; 93005; 94760; 99285

== ENCOUNTER 2024-06-03 12:48 | Inpatient (IN) | payer MEDICARE ==
--- NOTE | 2024-06-03 13:07 | ED ---
General Adult HPI - General Chief complaint: Shortness of Breath Stated complaint: Generalized weakness Time Seen by Provider: 06/03/24 12:51 Source: patient, EMS, RN notes reviewed Mode of arrival: EMS Limitations: physical limitation - History of Present Illness Initial comments: Patient is a 78-year-old female present to the emergency department with concerns for general weakness. Patient has fatigue and did not get out of bed yesterday and slept most of the day. Decreased oral intake. Patient feels increased weakness today and is unable to get up or walk. Patient states she may feel slightly short of breath, oxygen was reported as low. Patient denies confusion or new isolated area of weakness. Patient states weakness is generalized. - Related Data Home Medications Medication Instructions Recorded Confirmed Simvastatin [Zocor] 20 mg PO HS 07/18/14 02/27/24 Primidone 75 mg PO BID 07/23/22 02/27/24 allopurinoL [Zyloprim] 300 mg PO DAILY 07/23/22 02/27/24 busPIRone HCl [Buspar] 5 mg PO DAILY 07/23/22 02/27/24 Carbidopa-Levodopa 25-100 mg 1 tab PO TID-W/MEALS 09/14/23 02/27/24 [Sinemet 25-100 mg] Escitalopram Oxalate [Lexapro] 10 mg PO DAILY 09/14/23 02/27/24 Amiodarone [Cordarone] 100 mg PO DAILY 02/27/24 02/27/24 Cyanocobalamin (Vitamin B-12) 1,000 mcg PO DAILY 02/27/24 02/27/24 [Vitamin B-12] Docusate [Colace] 100 mg PO DAILY 02/27/24 02/27/24 Levothyroxine Sodium [Synthroid] 75 mcg PO AC-BRKFST 02/27/24 02/27/24 Losartan Potassium 50 mg PO DAILY 02/27/24 02/27/24 Nitroglycerin Sl Tabs [Nitrostat] 0.4 mg SUBLINGUAL Q5M PRN 02/27/24 02/27/24 Simethicone 180 mg PO ACHS PRN 02/27/24 02/27/24 polyethylene glycoL 3350 [Miralax] 17 gm PO DAILY PRN 02/27/24 02/27/24 Previous Rx's Medication Instructions Recorded Apixaban [Eliquis] 5 mg PO BID tab 08/04/22 Acetaminophen Tab [Tylenol] 650 mg PO Q6HR PRN tab 09/28/23 Folic Acid 1 mg PO DAILY@1200 tab 03/05/24 INSULIN ASPART (NovoLOG) [NovoLOG 0 unit SQ ACHS each 03/05/24 (formulary)] Insulin Detemir (Levemir) [Levemir] 40 unit SQ BID@0700,2100 each 03/05/24 Metoprolol Succinate (ER) [Toprol 50 mg PO BID tab 03/05/24 XL] Multivitamins, Thera [Multivitamin 1 each PO DAILY@1200 tab 03/05/24 (formulary)] Tamsulosin [Flomax] 0.4 mg PO PC-SUPPER cap 03/05/24 Thiamine [Vitamin B-1] 100 mg PO BID-W/MEALS tab 03/05/24 amLODIPine [Norvasc] 5 mg PO DAILY tab 03/05/24 predniSONE 10 mg PO DIRECTED #40 tab 03/05/24 Allergies Allergy/AdvReac Type Severity Reaction Status Date / Time gabapentin AdvReac Hallucinati Verified 02/27/24 14:23 ons Review of Systems ROS Statement: Those systems with pertinent positive or pertinent negative responses have been documented in the HPI. ROS Other: All systems not noted in ROS Statement are negative. Constitutional: Denies: fever Eyes: Denies: eye pain ENT: Denies: ear pain Respiratory: Reports: as per HPI, dyspnea Cardiovascular: Denies: chest pain Endocrine: Reports: as per HPI, fatigue Gastrointestinal: Denies: abdominal pain Musculoskeletal: Denies: back pain Skin: Denies: rash Neurological: Reports: as per HPI, weakness. Denies: headache, confusion Past Medical History Past Medical History: Heart Failure, Diabetes Mellitus, Hyperlipidemia, Hypertension, Pneumonia, Rheumatoid Arthritis (RA) Additional Past Medical History / Comment(s): tremors, renal lithiasis, hemorrhoids(sx done), "has had problems w/low magnesium.anemia. per spouse pt had past cancer "uterine or cervical-had hysterectomy". it was previously charted that pt had hx of ra and cfh spouse not able to verify this, History of Any Multi-Drug Resistant Organisms: ESBL Date of last positivie culture/infection: 09/15/23 MDRO Source:: URINE Past Surgical History: Appendectomy, Hysterectomy, Orthopedic Surgery, Tonsillectomy Additional Past Surgical History / Comment(s): rt total knee repalcement, cataracts, hemmorroidectomy, colonoscopy Past Anesthesia/Blood Transfusion Reactions: No Reported Reaction Additional Past Anesthesia/Blood Transfusion Reaction / Comment(s): per psouse- pt never receieved any blood Past Psychological History: No Psychological Hx Reported Smoking Status: Never smoker Past Alcohol Use History: None Reported Past Drug Use History: None Reported - Past Family History Mother Family Medical History: Diabetes Mellitus Father Additional Family Medical History / Comment(s): brain anuerysm General Exam Limitations: physical limitation General appearance: alert, in no apparent distress Head exam: Present: normocephalic Eye exam: Present: normal appearance, PERRL, EOMI ENT exam: Present: mucous membranes dry Neck exam: Present: normal inspection. Absent: tenderness, meningismus Respiratory exam: Present: normal lung sounds bilaterally Cardiovascular Exam: Present: regular rate, normal rhythm GI/Abdominal exam: Present: soft. Absent: tenderness Extremities exam: Present: normal inspection. Absent: pedal edema, calf t enderness Neurological exam: Present: alert, oriented X3, CN II-XII intact Expanded Neurological exam: Present: protecting the airway Patient oriented to: Present: person, place, time Speech: Present: fluid speech Cranial nerves: EOM's Intact: Normal Motor strength exam: RUE: 5, LUE: 5, RLE: 3, LLE: 3 Eye Response: (4) open spontaneously Motor Response: (6) obeys commands Verbal Response: (5) oriented Psychiatric exam: Present: normal affect, normal mood Skin exam: Present: normal color Course Vital Signs 06/03/24 06/03/24 12:49 14:15 Pulse Rate 82 75 Respiratory 16 14 Rate Blood Pressure 163/60 94/68 O2 Sat by Pulse 72 L 97 Oximetry EKG Findings - EKG Results: EKG: interpreted by ERMD, sinus rhythm, normal axis, normal QRS, normal ST/T Procedures - ABG Interpretation Ph: 7.43 PCO2: 57 PO2: 52 Interpretation: other (Hypoxia) Medical Decision Making - Medical Decision Making Was pt. sent in by a medical professional or institution (, PA, SPA DIRECTOR, urgent care, hospital, or skilled nursing...) When possible be specific @ -No Did you speak to anyone other than the patient for history (EMS, parent, family, police, friend...)? What history was obtained from this source @ -No Did you review nursing and triage notes (agree or disagree)? Why? @ -I reviewed and agree with nursing and triage notes Were old charts reviewed (outside hosp., previous admission, EMS record, old EKG, old radiological studies, urgent care reports/EKG's, skilled nursing records)? Report findings @ -No old charts were reviewed Differential Diagnosis (chest pain, altered mental status, abdominal pain women, abdominal pain men, vaginal bleeding, weakness, fever, dyspnea, syncope, headache, dizziness, GI bleed, back pain, seizure, CVA, palpatations, mental health, musculoskeletal)? @ -Differential Dyspnea: Coronary syndrome, arrhythmia, tamponade, asthma, COPD, pulmonary embolism, pneumonia, pneumothorax, pulmonary effusion, anaphylaxis, diabetic ketoacidosis, flailed chest, pulmonary contusion, diaphragmatic rupture, anemia, neuromuscular, this is not meant to be an all-inclusive list. Differential Weakness: Hypoglycemia, shock, sepsis, hyponatremia, anemia, infection, ID, ETOH, adverse medicine reaction, overdose, stroke, this is not meant to be an all-inclusive list. EKG interpreted by me (3pts min.). @ -As above X-rays interpreted by me (1pt min.). @ -Chest x-ray shows nonspecific finding CT interpreted by me (1pt min.). @ -CT brain without acute abnormality U/S interpreted by me (1pt. min.). @ -None done What testing was considered but not performed or refused? (CT, X-rays, U/S, labs)? Why? @ -Perfusion scan deferred to pulmonary What meds were considered but not given or refused? Why? @ -None Did you discuss the management of the patient with other professionals (pro fessionals i.e. , PA, SPA DIRECTOR, lab, RT, psych nurse, social work associate, workers compensation paralegal, teacher, correction officer penitentiary, trimming caser)? Give summary @ -Case discussed with Dr. Tate who will admit covering Dr. Lehman. Case also discussed with Dr. nicolas who is concern for chronic pulmonary changes. Was smoking cessation discussed for >3mins.? @ -No Was critical care preformed (if so, how long)? @ -No Were there social determinants of health that impacted care today? How? (Homelessness, low income, unemployed, alcoholism, drug addiction, transportation, low edu. Level, literacy, decrease access to med. care, longterm, rehab)? @ -No Was there de-escalation of care discussed even if they declined (Discuss DNR or withdrawal of care, Hospice)? DNR status @ -No What co-morbidities impacted this encounter? (DM, HTN, Smoking, COPD, CAD, Cancer, CVA, ARF, Chemo, Hep., AIDS, mental health diagnosis, sleep apnea, morbid obesity)? @ -Pulmonary hypertension and CHF Was patient admitted / discharged? Hospital course, mention meds given and route, prescriptions, significant lab abnormalities, going to OR and other pertinent info. @ -Patient presents with generalized weakness, etiology unclear. There is some hypoxia. Patient will be admitted, admission orders written. Undiagnosed new problem with uncertain prognosis? @ -No Drug Therapy requiring intensive monitoring for toxicity (Heparin, Nitro, Insuli n, Cardizem)? @ -No Were any procedures done? @ -No Diagnosis/symptom? @ -Weakness, hypoxia Acute, or Chronic, or Acute on Chronic? @ -Acute, acute on chronic Uncomplicated (without systemic symptoms) or Complicated (systemic symptoms)? @ -Default Side effects of treatment? @ -No Exacerbation, Progression, or Severe Exacerbation? @ -No Poses a threat to life or bodily function? How? (Chest pain, USA, ID, pneumonia, PE, COPD, DKA, ARF, appy, cholecystitis, CVA, Diverticulitis, Homicidal, S uicidal, threat to staff... and all critical care pts) @ -No - Lab Data Result diagrams: 06/03/24 13:00 06/03/24 13:00 Lab Results 06/03/24 06/03/24 06/03/24 Range/Units 13:00 13:00 13:00 WBC 10.4 (3.8-10.6) k/uL RBC 3.68 L (3.80-5.40) m/uL Hgb 11.6 (11.4-16.0) gm/dL Hct 36.6 (34.0-46.0) % MCV 99.3 (80.0-100.0) fL MCH 31.4 (25.0-35.0) pg MCHC 31.6 (31.0-37.0) g/dL RDW 13.5 (11.5-15.5) % Plt Count 208 (150-450) k/uL MPV 7.4 Neutrophils % 83 % Lymphocytes % 8 % Monocytes % 6 % Eosinophils % 2 % Basophils % 0 % Neutrophils # 8.6 H (1.3-7.7) k/uL Lymphocytes # 0.8 L (1.0-4.8) k/uL Monocytes # 0.6 (0-1.0) k/uL Eosinophils # 0.2 (0-0.7) k/uL Basophils # 0.0 (0-0.2) k/uL Hypochromasia Moderate PT 10.7 (10.0-12.5) sec INR 1.0 (<1.2) APTT 21.8 L (22.0-30.0) sec Sample Site ABG pH (7.35-7.45) ABG pCO2 (35-45) mmHg ABG pO2 (83-108) mmHg ABG HCO3 (21-25) mmol/L ABG Total CO2 (19-24) mmol/L ABG O2 Saturation (94-97) % ABG Base Excess mmol/L Suleman Test Hemoglobin (11.4-16.0) gm/dL FiO2 % Sodium 141 (137-145) mmol/L Potassium 3.6 (3.5-5.1) mmol/L Chloride 103 (98-107) mmol/L Carbon Dioxide 37 H (22-30) mmol/L Anion Gap 1 mmol/L BUN 56 H (7-17) mg/dL Creatinine 2.72 H (0.52-1.04) mg/dL Est GFR (CKD-EPI)AfAm 19 (>60 ml/min/1.73 sqM) Est GFR (CKD-EPI)NonAf 16 (>60 ml/min/1.73 sqM) Glucose 154 H (74-99) mg/dL Plasma Lactic Acid Woo (0.7-2.0) mmol/L Calcium 10.8 H (8.4-10.2) mg/dL Phosphorus 3.7 (2.5-4.5) mg/dL Magnesium 1.9 (1.6-2.3) mg/dL Total Bilirubin 0.4 (0.2-1.3) mg/dL AST 15 (14-36) U/L ALT 6 (4-34) U/L Alkaline Phosphatase 52 (38-126) U/L Troponin I (0.000-0.034) ng/mL NT-Pro-B Natriuret Pep pg/mL Total Protein 5.9 L (6.3-8.2) g/dL Albumin 3.3 L (3.5-5.0) g/dL TSH 4.710 H (0.465-4.680) mIU/L Free T4 1.73 (0.78-2.19) ng/dL Influenza Type A (PCR) (Not Detectd) Influenza Type B (PCR) (Not Detectd) RSV (PCR) (Not Detectd) SARS-CoV-2 (PCR) (Not Detectd) 06/03/24 06/03/24 06/03/24 Range/Units 13:00 13:00 13:00 WBC (3.8-10.6) k/uL RBC (3.80-5.40) m/uL Hgb (11.4-16.0) gm/dL Hct (34.0-46.0) % MCV (80.0-100.0) fL MCH (25.0-35.0) pg MCHC (31.0-37.0) g/dL RDW (11.5-15.5) % Plt Count (150-450) k/uL MPV Neutrophils % % Lymphocytes % % Monocytes % % Eosinophils % % Basophils % % Neutrophils # (1.3-7.7) k/uL Lymphocytes # (1.0-4.8) k/uL Monocytes # (0-1.0) k/uL Eosinophils # (0-0.7) k/uL Basophils # (0-0.2) k/uL Hypochromasia PT (10.0-12.5) sec INR (<1.2) APTT (22.0-30.0) sec Sample Site ABG pH (7.35-7.45) ABG pCO2 (35-45) mmHg ABG pO2 (83-108) mmHg ABG HCO3 (21-25) mmol/L ABG Total CO2 (19-24) mmol/L ABG O2 Saturation (94-97) % ABG Base Excess mmol/L Suleman Test Hemoglobin (11.4-16.0) gm/dL FiO2 % Sodium (137-145) mmol/L Potassium (3.5-5.1) mmol/L Chloride (98-107) mmol/L Carbon Dioxide (22-30) mmol/L Anion Gap mmol/L BUN (7-17) mg/dL Creatinine (0.52-1.04) mg/dL Est GFR (CKD-EPI)AfAm (>60 ml/min/1.73 sqM) Est GFR (CKD-EPI)NonAf (>60 ml/min/1.73 sqM) Glucose (74-99) mg/dL Plasma Lactic Acid Woo 1.4 (0.7-2.0) mmol/L Calcium (8.4-10.2) mg/dL Phosphorus (2.5-4.5) mg/dL Magnesium (1.6-2.3) mg/dL Total Bilirubin (0.2-1.3) mg/dL AST (14-36) U/L ALT (4-34) U/L Alkaline Phosphatase (38-126) U/L Troponin I 0.051 H* (0.000-0.034) ng/mL NT-Pro-B Natriuret Pep 1060 pg/mL Total Protein (6.3-8.2) g/dL Albumin (3.5-5.0) g/dL TSH (0.465-4.680) mIU/L Free T4 (0.78-2.19) ng/dL Influenza Type A (PCR) (Not Detectd) Influenza Type B (PCR) (Not Detectd) RSV (PCR) (Not Detectd) SARS-CoV-2 (PCR) (Not Detectd) 06/03/24 06/03/24 Range/Units 13:08 13:48 WBC (3.8-10.6) k/uL RBC (3.80-5.40) m/uL Hgb (11.4-16.0) gm/dL Hct (34.0-46.0) % MCV (80.0-100.0) fL MCH (25.0-35.0) pg MCHC (31.0-37.0) g/dL RDW (11.5-15.5) % Plt Count (150-450) k/uL MPV Neutrophils % % Lymphocytes % % Monocytes % % Eosinophils % % Basophils % % Neutrophils # (1.3-7.7) k/uL Lymphocytes # (1.0-4.8) k/uL Monocytes # (0-1.0) k/uL Eosinophils # (0-0.7) k/uL Basophils # (0-0.2) k/uL Hypochromasia PT (10.0-12.5) sec INR (<1.2) APTT (22.0-30.0) sec Sample Site l rad ABG pH 7.44 (7.35-7.45) ABG pCO2 58 H (35-45) mmHg ABG pO2 52 L* (83-108) mmHg ABG HCO3 39 H (21-25) mmol/L ABG Total CO2 41 H (19-24) mmol/L ABG O2 Saturation 88.9 L (94-97) % ABG Base Excess 12.7 mmol/L Suleman Test Yes Hemoglobin 11.6 (11.4-16.0) gm/dL FiO2 28 % Sodium (137-145) mmol/L Potassium (3.5-5.1) mmol/L Chloride (98-107) mmol/L Carbon Dioxide (22-30) mmol/L Anion Gap mmol/L BUN (7-17) mg/dL Creatinine (0.52-1.04) mg/dL Est GFR (CKD-EPI)AfAm (>60 ml/min/1.73 sqM) Est GFR (CKD-EPI)NonAf (>60 ml/min/1.73 sqM) Glucose (74-99) mg/dL Plasma Lactic Acid Woo (0.7-2.0) mmol/L Calcium (8.4-10.2) mg/dL Phosphorus (2.5-4.5) mg/dL Magnesium (1.6-2.3) mg/dL Total Bilirubin (0.2-1.3) mg/dL AST (14-36) U/L ALT (4-34) U/L Alkaline Phosphatase (38-126) U/L Troponin I (0.000-0.034) ng/mL NT-Pro-B Natriuret Pep pg/mL Total Protein (6.3-8.2) g/dL Albumin (3.5-5.0) g/dL TSH (0.465-4.680) mIU/L Free T4 (0.78-2.19) ng/dL Influenza Type A (PCR) Not Detected (Not Detectd) Influenza Type B (PCR) Not Detected (Not Detectd) RSV (PCR) Not Detected (Not Detectd) SARS-CoV-2 (PCR) Not Detected (Not Detectd) Disposition Clinical Impression: Weakness, Hypoxia Disposition: ADMITTED IP TO THIS HOSP Is patient prescribed a controlled substance at d/c from ED?: No Referrals: Alberto Lehman DO [Primary Care Provider] - 1-2 days Time of Disposition: 16:31
[2024-06-03 13:16] LABS: Basophils % (A) 0 %; Eosinophils # (A) 0.2 k/uL (0-0.7); Eosinophils % (A) 2 %; HCT 36.6 % (34.0-46.0); HGB 11.6 gm/dL (11.4-16.0); Hypochromasia Moderate; Lymphocytes # (A) 0.8 k/uL (1.0-4.8); Lymphocytes % (A) 8 %; MCH 31.4 pg (25.0-35.0); MCHC 31.6 g/dL (31.0-37.0); MCV 99.3 fL (80.0-100.0); Mean Platelet Volume 7.4; Monocytes # (A) 0.6 k/uL (0-1.0); Monocytes % (A) 6 %; Neutrophils # (A) 8.6 k/uL (1.3-7.7); Neutrophils % (A) 83 %; Platelet Count 208 k/uL (150-450); RBC 3.68 m/uL (3.80-5.40); RDW 13.5 % (11.5-15.5); WBC 10.4 k/uL (3.8-10.6)
[2024-06-03 13:20] LABS: Prothrombin Time 10.7 sec (10.0-12.5)
[2024-06-03 13:27] LABS: Partial Thromboplastin Time 21.8 sec (22.0-30.0)
[2024-06-03 13:45] LABS: ALT 6 U/L (4-34); AST 15 U/L (14-36); African American GFR (CKD) 19 (>60 ml/min/1.73 sqM); Albumin 3.3 g/dL (3.5-5.0); Alkaline Phosphatase 52 U/L (38-126); Anion Gap 1 mmol/L; Blood Urea Nitrogen 56 mg/dL (7-17); Calcium 10.8 mg/dL (8.4-10.2); Carbon Dioxide 37 mmol/L (22-30); Chloride 103 mmol/L (98-107); Glucose 154 mg/dL (74-99); Magnesium 1.9 mg/dL (1.6-2.3); Non-African American GFR(CKD) 16 (>60 ml/min/1.73 sqM); Phosphorus 3.7 mg/dL (2.5-4.5); Potassium 3.6 mmol/L (3.5-5.1); Sodium 141 mmol/L (137-145); Total Bilirubin 0.4 mg/dL (0.2-1.3); Total Protein 5.9 g/dL (6.3-8.2)
[2024-06-03 13:50] LABS: ABG Base Excess 12.7 mmol/L; ABG HCO3 39 mmol/L (21-25); ABG Oxygen Saturation 88.9 % (94-97); ABG PCO2 58 mmHg (35-45); ABG PH 7.44 (7.35-7.45); ABG TCO2 41 mmol/L (19-24); Allen Test Performed? Yes
[2024-06-03 13:52] LABS: ABG PO2 52 mmHg (83-108)
[2024-06-03 14:01] LABS: T4, Free (Free Thyroxine) 1.73 ng/dL (0.78-2.19)
--- NOTE | 2024-06-03 15:13 | CT ---
EXAMINATION TYPE: CT brain wo con CT DLP: 1184.4 mGycm, Automated exposure control for dose reduction was used. DATE OF EXAM: 06/03/2024 2:15 PM COMPARISON: None.. CLINICAL INDICATION:Female, 78 years old with history of weakness, AMS TECHNIQUE: Brain: Axial CT images of the brain were obtained with coronal and sagittal reformats created and rev iewed. Contrast used: None. Oral contrast used: None. FINDINGS: Exam limited by motion and streak artifacts. Extra-axial spaces: No abnormal extra-axial fluid collections. Basilar cisterns are patent. Ventricular system: Ventricles appear dilated in proportion to the degree of cerebral atrophy. Cerebral parenchyma: No increased attenuation to suggest acute intraparenchymal hemorrhage. The gra y-white matter interface appears maintained. Mild generalized brain atrophy. Scattered hypoattenuat ing areas are seen within the cerebral white matter, nonspecific but most often seen with chronic marvin rovascular ischemic changes; mild in degree. Cerebellum: No acute abnormality. Mass effect: No evidence of mass effect or midline shift. Intracranial vasculature: Atherosclerotic calcifications of the larger arteries near the skull base. Soft tissues: No acute or concerning abnormality. Visualized orbits: Orbital contents appear 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. Calvarium/osseous structures: No evidence of calvarial fracture. Paranasal sinuses and mastoid air cells: Clear. MRI is more sensitive for detecting acute processes such as infarct, and may be considered if clinica lly warranted. IMPRESSION: No acute intracranial CT abnormality. [facility], , 06/03/2024 3:11 PM
--- NOTE | 2024-06-03 15:31 | XR ---
EXAMINATION TYPE: XR chest 2V DATE OF EXAM: 06/03/2024 2:20 PM CLINICAL INDICATION:Female, 78 years old with history of Weakness; [facility] COMPARISON: 03/05/2024 TECHNIQUE: XR chest 2V. Frontal and lateral views of the chest.. FINDINGS: Lines/Tubes/Devices: EKG leads overlie the chest. No indwelling lines are seen. Heart/mediastinum: Heart size is normal. Mediastinum appears normal. Pulmonary vascularity: Not increased, Lungs/Pleura: Lung volumes are diminished with crowding of lung markings and mild bibasilar atelectas is. No focal consolidation, sizable pleural effusion, or visible pneumothorax. Musculoskeletal: No acute osseous abnormality demonstrated in the limits of the exam. Mild to modera te degenerative changes. Other findings: None. IMPRESSION: Low lung volume exam with hypoventilatory changes. Otherwise no acute finding. [facility], , 06/03/2024 3:28 PM
[2024-06-03] MEDS ORDERED: NALOXONE 0.4 MG/ML 1 ML VIAL IV PRN (16:31)
[2024-06-03] MEDS ORDERED: DEXTROSE 50% SYRINGE 50 ML IVP PRN ×2 (20:47)
[2024-06-03] MEDS ORDERED: ACETAMINOPHEN TAB 500 MG TAB PO PRN (20:53)
[2024-06-03] MEDS ORDERED: SIMETHICONE 80 MG CHEWABLE PO PRN (20:53)
[2024-06-03] MEDS ORDERED: polyethylene glycoL 3350 17 GM POWD.PACK PO PRN (20:53)
[2024-06-03] MEDS ORDERED: NITROGLYCERIN SL TABS 0.4 MG TAB SUBLINGUAL PRN (20:53)
[2024-06-03] MEDS: INSULIN ASPART (NovoLOG) 100 UNIT/ML VIAL SQ SCH (22:08)
[2024-06-03] MEDS: DOCUSATE 100 MG CAP PO SCH (22:14)
[2024-06-03] MEDS: METOPROLOL SUCCINATE (ER) 50 MG TAB.ER.24H PO SCH (22:15)
[2024-06-03] MEDS: PRIMIDONE 50 MG TAB PO SCH (22:15)
--- NOTE | 2024-06-04 03:45 | P.CNPUL ---
History of Present Illness Consult date: 06/04/24 Requesting physician: Balwinder Antonio Reason for consult: hypoxemia Chief complaint: Weakness, fall History of present illness: Patient is a 78-year-old white female with past medical history significant for frequent falls, Parkinson's disease, hypertension, hyperlipidemia, diabetes mellitus, hypothyroidism, chronic kidney disease, atrial fibrillation, among other things. Patient is a poor historian, and is also hard of hearing. Apparently, presents to the emergency department yesterday afternoon with increased generalized weakness and fatigue. Has had reduced oral intake. Reportedly, fell in the shower a "couple days ago". She does have minimal bruising and an abrasion on her left thoracic level back. No deformities or crepitus. Denies has hitting her head. Denies losing consciousness. Brain CT of the brain without contrast did not show any acute intracranial process. Apparently, patient could not get up out of bed yesterday, and was sent into the emergency department for evaluation. She was noted to be hypoxic, on room air, in the emergency department. For this reason, we were consulted. She is currently resting comfortably in bed. She is on 3 L/min nasal cannula. SPO2 99%. She reportedly wears 2 L home O2 at bedtime while at home. Denies any history of pre-existing lung disease such as COPD or asthma. She does not smoke cigarettes. Denies any infectious-like symptoms. No fever, cough, sputum production chest pain. Denies sick contacts. She denies history of heart failure. Denies chest pain. Denies increase in lower extremity swelling. Most recent available echocardiogram from 09/15/2023 showing mild LV dysfunction with an estimated ejection fraction of 45 to 50%. She was previously maintained on Bumex, which may have been stopped on her previous hospitalization in March,. Chest x-ray showing low lung volumes with hypoventilatory changes and possible mild venous congestion.. No focal consolidations, sizable pleural effusions, or visible pneumothoraces. CBC: WBC count 10.4, hemoglobin 11.6, hematocrit 36.6, platelets 208. CMP: Sodium 141, potassium 3.6, chloride 103, serum bicarb 37, BUN 56, creatinine 2.72, glucose 154. LFTs unremarkable. Troponins elevated at 0.051, 0.069, and 0.064 respectively. NT proBNP 1060. Negative for influenza, RSV, COVID. ABG done earlier which showed a PaO2 of 52, pCO2 of 58, pH of 7.44. This is done on 2 L supplemental oxygen. Again, patient is in no respiratory distress. She is resting comfortably in bed. Her primary complaint is some thoracic level back pain from her fall. Review of Systems Constitutional: Reports fatigue, Reports poor appetite, Reports weakness, Denies chills, Denies fever, Denies weight gain, Denies weight loss Ears, nose, mouth and throat: Denies dysphagia, Denies headache, Denies nasal congestion, Denies nasal discharge, Denies sinus pressure, Denies sore throat Cardiovascular: Reports decreased exercise tolerance, Denies chest pain, Denies leg edema, Denies orthopnea, Denies palpitations, Denies paroxysmal nocturnal dyspnea, Denies syncope Respiratory: Reports home oxygen, Denies cough with sputum, Denies excessive sputum, Denies hemoptysis, Denies respiratory infections, Denies wheezing Gastrointestinal: Reports constipation, Reports loss of appetite, Denies abdominal pain, Denies change in bowel habits, Denies diarrhea, Denies heartburn, Denies nausea, Denies vomiting Genitourinary: Denies dysuria, Denies flank pain, Denies hematuria, Denies incomplete emptying, Denies urinary frequency Musculoskeletal: Reports frequent falls, Reports gait dysfunction, Denies arm numbness/tingling, Denies leg numbness/tingling, Denies low back pain, Denies myalgias, Denies neck pain, Denies shooting arm pain, Denies shooting leg pain Integumentary: Denies rash Neurological: Reports balance difficulties, Reports gait dysfunction, Reports tremors, Reports weakness, Denies change in mentation, Denies change in speech, Denies confusion, Denies head injury, Denies headaches, Denies lack of coordination, Denies memory loss, Denies seizures, Denies syncope, Denies visual changes Psychiatric: Denies anxiety, Denies depression Past Medical History Past Medical History: Heart Failure, Diabetes Mellitus, Hyperlipidemia, Hypertension, Pneumonia, Rheumatoid Arthritis (RA) Additional Past Medical History / Comment(s): tremors, renal lithiasis, hemorrhoids(sx done), "has had problems w/low magnesium.anemia. per spouse pt had past cancer "uterine or cervical-had hysterectomy". it was previously charted that pt had hx of ra and cfh spouse not able to verify this, History of Any Multi-Drug Resistant Organisms: ESBL Date of last positivie culture/infection: 09/15/23 MDRO Source:: URINE Past Surgical History: Appendectomy, Hysterectomy, Orthopedic Surgery, Tonsillectomy Additional Past Surgical History / Comment(s): rt total knee repalcement, cataracts, hemmorroidectomy, colonoscopy Past Anesthesia/Blood Transfusion Reactions: No Reported Reaction Additional Past Anesthesia/Blood Transfusion Reaction / Comment(s): per psouse- pt never receieved any blood Past Psychological History: No Psychological Hx Reported Smoking Status: Never smoker Past Alcohol Use History: None Reported Past Drug Use History: None Reported - Past Family History Mother Family Medical History: Diabetes Mellitus Father Additional Family Medical History / Comment(s): brain anuerysm Medications and Allergies Home Medications Medication Instructions Recorded Confirmed Type Simvastatin [Zocor] 20 mg PO HS 07/18/14 06/03/24 History Primidone 100 mg PO BID 07/23/22 06/03/24 History allopurinoL [Zyloprim] 300 mg PO DAILY 07/23/22 06/03/24 History busPIRone HCl [Buspar] 5 mg PO DAILY 07/23/22 06/03/24 History Apixaban [Eliquis] 5 mg PO BID tab 08/04/22 06/03/24 Rx Carbidopa-Levodopa 25-100 mg 1 tab PO TID-W/MEALS 09/14/23 06/03/24 History [Sinemet 25-100 mg] Escitalopram Oxalate [Lexapro] 10 mg PO DAILY 09/14/23 06/03/24 History Cyanocobalamin (Vitamin B-12) 1,000 mcg PO DAILY 02/27/24 06/03/24 History [Vitamin B-12] Docusate [Colace] 100 mg PO BID 02/27/24 06/03/24 History Levothyroxine Sodium [Synthroid] 75 mcg PO AC-BRKFST 02/27/24 06/03/24 History Losartan Potassium 50 mg PO DAILY 02/27/24 06/03/24 History Nitroglycerin Sl Tabs [Nitrostat] 0.4 mg SUBLINGUAL Q5M PRN 02/27/24 06/03/24 H istory Simethicone 180 mg PO ACHS PRN 02/27/24 06/03/24 History polyethylene glycoL 3350 [Miralax] 17 gm PO DAILY PRN 02/27/24 06/03/24 History Metoprolol Succinate (ER) [Toprol 50 mg PO BID tab 03/05/24 06/03/24 Rx XL] Acetaminophen Tab [Tylenol Tab] 500 mg PO Q6H PRN 06/03/24 06/03/24 History Amiodarone [Cordarone] 100 mg PO DAILY 06/03/24 06/03/24 History Baclofen 5 mg PO DAILY PRN 06/03/24 06/03/24 History Bumetanide [BUMEX] 2 mg PO BID 06/03/24 06/03/24 History Calcium Carbonate [Calcium] 600 mg PO DAILY@1400 06/03/24 06/03/24 History Denosumab [Prolia] 60 mg SQ Q180D 06/03/24 06/03/24 History Insulin Glargine,Hum.rec.anlog 20 units SQ HS PRN 06/03/24 06/03/24 History [Lantus Solostar Pen] Insulin Glargine,Hum.rec.anlog 40 units SQ AC-BRKFST 06/03/24 06/03/24 History [Lantus Solostar Pen] Insulin Lispro [humaLOG Kwikpen] 12 - 15 unit SQ AC-TID 06/03/24 06/03/24 History Potassium Chloride ER [K-Dur 20] 20 meq PO DAILY 06/03/24 06/03/24 History Allergies Allergy/AdvReac Type Severity Reaction Status Date / Time gabapentin AdvReac Hallucinati Verified 06/03/24 17:19 ons Physical Exam Vitals: Vital Signs Pulse Resp BP Pulse Ox 06/03/24 23:00 60 18 162/75 98 06/03/24 20:05 65 18 161/92 95 06/03/24 14:15 75 14 94/68 97 06/03/24 12:49 82 16 163/60 72 L Intake and Output 06/03/24 06/03/24 06/04/24 14:59 22:59 06:59 Other: Weight 99.79 kg GENERAL EXAM: Alert, 78-year-old obese female, resting in bed in no apparent distress, generalized resting tremor. HEAD: Normocephalic and atraumatic EYES: Normal reaction of pupils, equal size, visual vanessa intact, no nystagmus. NOSE: Clear with pink turbinates. THROAT: No erythema or exudates. NECK: No masses, no JVD. CHEST: No chest wall deformity. LUNGS: Equal air entry with no crackles, wheeze, rhonchi or dullness. On 3 L/ min nasal cannula. No conversational dyspnea or accessory muscle use.. CVS: S1 and S2 normal with no audible murmur, regular rhythm. No extra heart sounds ABDOMEN: No hepatosplenomegaly, active bowel sounds, no guarding or rigidity. SPINE: No scoliosis or deformity. Left lateral thoracic level back abrasion and bruising/ecchymosis. No subcutaneous emphysema or crepitus SKIN: No rashes CENTRAL NERVOUS SYSTEM: Alert and oriented x 3, left facial droop, no aphasia or dysarthria, tongue protrudes midline, soft palate rises midline, facial sensation equal, bilateral upper extremities resting tremor, tone is normal in all 4 extremities, without unilateral weakness. Patellar DTRs not producible, sensation intact throughout, no ataxia, gait assessment deferred. EXTREMITIES: There is no peripheral edema, clubbing, or cyanosis. Peripheral pulses are intact. Results - Laboratory Findings CBC and BMP: 06/03/24 13:00 06/03/24 13:00 ABG ABG pH 7.44 (7.35-7.45) 06/03/24 13:48 ABG pCO2 58 mmHg (35-45) H 06/03/24 13:48 ABG pO2 52 mmHg (83-108) L* 06/03/24 13:48 ABG O2 Saturation 88.9 % (94-97) L 06/03/24 13:48 PT/INR, D-dimer PT 10.7 sec (10.0-12.5) 06/03/24 13:00 INR 1.0 (<1.2) 06/03/24 13:00 Abnormal lab findings: Abnormal Labs 06/03/24 06/03/24 06/03/24 13:00 13:00 13:00 RBC 3.68 L Neutrophils # 8.6 H Lymphocytes # 0.8 L APTT 21.8 L ABG pCO2 ABG pO2 ABG HCO3 ABG Total CO2 ABG O2 Saturation Carbon Dioxide 37 H BUN 56 H Creatinine 2.72 H Glucose 154 H Calcium 10.8 H Troponin I Total Protein 5.9 L Albumin 3.3 L TSH 4.710 H 06/03/24 06/03/24 06/03/24 13:00 13:48 17:59 RBC Neutrophils # Lymphocytes # APTT ABG pCO2 58 H ABG pO2 52 L* ABG HCO3 39 H ABG Total CO2 41 H ABG O2 Saturation 88.9 L Carbon Dioxide BUN Creatinine Glucose Calcium Troponin I 0.051 H* 0.069 H* Total Protein Albumin TSH 06/03/24 22:34 RBC Neutrophils # Lymphocytes # APTT ABG pCO2 ABG pO2 ABG HCO3 ABG Total CO2 ABG O2 Saturation Carbon Dioxide BUN Creatinine Glucose Calcium Troponin I 0.064 H* Total Protein Albumin TSH - Diagnostic Findings Chest x-ray: image reviewed Assessment and Plan Assessment: Acute on chronic hypoxemic respiratory failure, currently on 3 L/min nasal cannula, chest x-ray does not show any focal infiltrates or evidence of pn eumonia. There are low lung volumes with hypoventilatory changes. Cardiac silhouette stable. Possible mild pulmonary vascular congestion; however, NT proBNP only mildly elevated at 1060. Acute on chronic kidney disease, creatinine slightly worse than baseline Generalized weakness Frequent falls History of Parkinson's disease Elevated troponins, flat and not consistent with ACS History of paroxysmal atrial fibrillation, currently normal sinus rhythm, chronically anticoagulated on Eliquis History of heart failure with reduced ejection fraction, most recent available echocardiogram from September, showing improved left ventricular ejection fraction of 45 to 50%. History of hypertension History of hyperlipidemia Diabetes mellitus, insulin-dependent Hypothyroidism History of rheumatoid arthritis History of cervical spine stenosis History of right femur fracture Obesity, with a BMI of 35.5 kg/m Hard of hearing Plan: Patient has been weaned down to 3 L/min nasal cannula She does have supplemental home O2 available Will give a dose of Lasix once now Most recent echocardiogram noted Cardiac medications to be resumed once verified Negative for influenza, RSV, COVID Patient reportedly has no issues with dysphagia Fall precautions Neurology asked to evaluate patient's weakness We will continue to follow, additional recommendations forthcoming I have personally seen and examined the patient, performed the documentation and the assessment and plan as written. Number of minutes spent on the visit:20 Time with Patient: Greater than 30
[2024-06-04] MEDS: FUROSEMIDE 10 MG/ML 2 ML VIAL IV STA (04:01)
[2024-06-04 06:57] LABS: Appearance,Urine Clear (Clear); Bacteria,Urine Rare /hpf; Bilirubin,Urine Negative (Negative); Blood,Urine Negative (Negative); Calcium Oxalate Crystals,Urine Rare /hpf; Color,Urine Colorless; Glucose,Urine (UA) Negative (Negative); Ketones,Urine Negative (Negative); Leukocyte Esterase,Urine Negative (Negative); Nitrite,Urine Negative (Negative); PH, Urine 6.5 (5.0-8.0); Protein,Urine 1+ (Negative); RBC,Urine 1 /hpf (0-5); Specific Gravity,Urine 1.017 (1.001-1.035); Squamous Epithelial Cell,Urine 2 /hpf (0-4); Urobilinogen,Urine <2.0 mg/dL (<2.0); WBC,Urine 3 /hpf (0-5)
--- NOTE | 2024-06-04 07:47 | US ---
EXAMINATION TYPE: US bladder DATE OF EXAM: 06/04/2024 COMPARISON: NONE CLINICAL INDICATION: Female, 78 years old with history of history of retention; cannot fully void TECHNIQUE: Multiple sonographic images of the bladder are obtained. FINDINGS: EXAM MEASUREMENTS: Post Void Residual Volume: EC patient in bed, unable to do post void BRAND ATTENDANT NOTES: pre void 1130ml Color Doppler performed to assess ureteral jets. Bilateral Jets seen: only right twice IMPRESSION: As above [facility], , 06/04/2024 7:44 AM
[2024-06-04] MEDS: allopurinoL 300 MG TAB PO SCH (08:25)
[2024-06-04] MEDS: CYANOCOBALAMIN 500 MCG TAB PO SCH (08:26)
[2024-06-04] MEDS: LEVOTHYROXINE 75 MCG TAB PO SCH (08:26)
[2024-06-04] MEDS: ACETAMINOPHEN TAB 325 MG TAB PO PRN (08:26)
[2024-06-04] MEDS: busPIRone HCl 5 MG TAB PO SCH (08:27)
[2024-06-04] MEDS: ESCITALOPRAM 10 MG TAB PO SCH (08:28)
[2024-06-04] MEDS ORDERED: DENOSUMAB 60 MG/ML 1 ML SYRINGE SQ SCH (08:45)
[2024-06-04] MEDS ORDERED: DEXTROSE 50% SYRINGE 50 ML IVP PRN ×2 (08:45)
[2024-06-04] MEDS: APIXABAN 5 MG TAB PO SCH (10:50)
[2024-06-04] MEDS: POTASSIUM CHLORIDE ER 20 MEQ TAB.ER PO SCH (10:50)
[2024-06-04] MEDS: AMIODARONE 100 MG TAB PO SCH (10:51)
[2024-06-04] MEDS: LOSARTAN 50 MG TAB PO SCH (10:51)
--- NOTE | 2024-06-04 11:57 | P.HPIM ---
History of Present Illness H&P Date: 06/04/24 Patient is 78-year-old female with past medical history significant for hypertension, diabetes mellitus type 2, atrial fibrillation maintained on Eliquis, chronic kidney disease, hypothyroidism, hyperlipidemia, and Parkinson's who presents with fatigue and weakness for about a week that worsened yesterday to the point she couldn't get out of bed. All history provided by daughter and son-in-law. States that she has a history of falls due to weakness/losing balance but denies syncope or loss of consciousness. They endorse decreased oral intake. They note that her dose of primidone was increased on Tuesday. Tuesday night they called EMS to help her up from the floor after she lost her balance and fell and they noted her O2 saturation to be low and recommended increasing her usual nighttime oxygen from 2L to 3L. There is no focal weakness. She was found to have elevated troponin x3: 0.051, 0.069, 0.064, respectively but she is denying chest pain. Due to her hypoxic status pulmon ology was consulted. EKG showed normal sinus rhythm. Brain CT negative. Chest x-ray: Low lung vol ume exam with hypoventilatory changes, no acute findings. Troponoin x 3 0.051, 0.069, 0.064. WBCs 10.4, hemoglobin 11.6, sodium 141, potassium 3.6, CO2 37, BUN 56, creatinine 2.72, calcium 10.8, NT proBNP 1060. ABG: pH 7.44, pCO2 58, pO2 52, HCO3 39. Urinalysis negative. Afebrile, hypertensive in the 160s initially, 72% saturation on room air then 97% on 4 L nasal cannula. ED documentation reviewed. Review of systems: Pertinent positives and negatives as discussed in HPI, a complete review of systems was performed and all other systems are negative. Social history: Tobacco: Never Alcohol: Never Recreational drugs: Denies Travel: Denies Physical examination: Vital signs are reviewed. General: No acute distress. AOx4. HEENT: Head exam is unremarkable. EOMI bilaterally. ACs patent. Nares patent. Lungs: Bilateral breath sounds present; no rhonchi, wheezes, or rales. Heart: Rate and rhythm are regular. S1-S2 present. No murmur/rub/gallops. Abdomen: Soft, mild LLQ tenderness to palpation, nondistended. Bowel sounds present. Extremities: No edema present. Symmetric movement. Psych: Normal affect and mood. Cooperative. Assessment/Plan: Generalized weakness Frequent falls Consult PT/OT Neurology consulted Acute on chronic hypoxic respiratory failure Currently on 3 L nasal cannula Pulmonology following Elevated d-dimer Obtain ultrasound venous Doppler duplex bilateral lower extremity Chronic kidney disease stage IIIb Creatinine 2.72 slightly worsened compared to baseline of 1.5-2 Elevated troponins, unlikely ACS Paroxysmal atrial fibrillation Continue Eliquis Diabetes mellitus type 2 Monitor glucose Insulin sliding scale DVT prophylaxis: Eliquis Chronic conditions: Hypertension, hypothyroidism, hyperlipidemia, HFrEF 45-50%, paroxysmal atrial fibrillation, cervical spinal stenosis The patient is admitted with an anticipated less than than 2 midnight stay for evaluation of generalized weakness CODE STATUS: Full code Discussed with: Patient Anticipated discharge place: Home Dr. Roberto MD I have performed a history and physical examination and medical decision making of this patient, discussed the same with the the resident, and agree with the assessment and plan as written. I performed brief physical exam. Past Medical History Past Medical History: Heart Failure, Diabetes Mellitus, Hyperlipidemia, Hypertension, Pneumonia, Rheumatoid Arthritis (RA) Additional Past Medical History / Comment(s): tremors, renal lithiasis, hemorrhoids(sx done), "has had problems w/low magnesium.anemia. per spouse pt had past cancer "uterine or cervical-had hysterectomy". it was previously charted that pt had hx of ra and cfh spouse not able to verify this, History of Any Multi-Drug Resistant Organisms: ESBL Date of last positivie culture/infection: 09/15/23 MDRO Source:: URINE Past Surgical History: Appendectomy, Hysterectomy, Orthopedic Surgery, Tonsillectomy Additional Past Surgical History / Comment(s): rt total knee repalcement, ca taracts, hemmorroidectomy, colonoscopy Past Anesthesia/Blood Transfusion Reactions: No Reported Reaction Additional Past Anesthesia/Blood Transfusion Reaction / Comment(s): per psouse- pt never receieved any blood Past Psychological History: No Psychological Hx Reported Smoking Status: Never smoker Past Alcohol Use History: None Reported Past Drug Use History: None Reported - Past Family History Mother Family Medical History: Diabetes Mellitus Father Additional Family Medical History / Comment(s): brain anuerysm Medications and Allergies Home Medications Medication Instructions Recorded Confirmed Type Simvastatin [Zocor] 20 mg PO HS 07/18/14 06/03/24 History Primidone 100 mg PO BID 07/23/22 06/03/24 History allopurinoL [Zyloprim] 300 mg PO DAILY 07/23/22 06/03/24 History busPIRone HCl [Buspar] 5 mg PO DAILY 07/23/22 06/03/24 History Apixaban [Eliquis] 5 mg PO BID tab 08/04/22 06/03/24 Rx Carbidopa-Levodopa 25-100 mg 1 tab PO TID-W/MEALS 09/14/23 06/03/24 History [Sinemet 25-100 mg] Escitalopram Oxalate [Lexapro] 10 mg PO DAILY 09/14/23 06/03/24 History Cyanocobalamin (Vitamin B-12) 1,000 mcg PO DAILY 02/27/24 06/03/24 History [Vitamin B-12] Docusate [Colace] 100 mg PO BID 02/27/24 06/03/24 History Levothyroxine Sodium [Synthroid] 75 mcg PO AC-BRKFST 02/27/24 06/03/24 History Losartan Potassium 50 mg PO DAILY 02/27/24 06/03/24 History Nitroglycerin Sl Tabs [Nitrostat] 0.4 mg SUBLINGUAL Q5M PRN 02/27/24 06/03/24 History Simethicone 180 mg PO ACHS PRN 02/27/24 06/03/24 History polyethylene glycoL 3350 [Miralax] 17 gm PO DAILY PRN 02/27/24 06/03/24 History Metoprolol Succinate (ER) [Toprol 50 mg PO BID tab 03/05/24 06/03/24 Rx XL] Acetaminophen Tab [Tylenol Tab] 500 mg PO Q6H PRN 06/03/24 06/03/24 History Amiodarone [Cordarone] 100 mg PO DAILY 06/03/24 06/03/24 History Baclofen 5 mg PO DAILY PRN 06/03/24 06/03/24 History Bumetanide [BUMEX] 2 mg PO BID 06/03/24 06/03/24 History Calcium Carbonate [Calcium] 600 mg PO DAILY@1400 06/03/24 06/03/24 History Denosumab [Prolia] 60 mg SQ Q180D 06/03/24 06/03/24 History Insulin Glargine,Hum.rec.anlog 20 units SQ HS PRN 06/03/24 06/03/24 History [Lantus Solostar Pen] Insulin Glargine,Hum.rec.anlog 40 units SQ AC-BRKFST 06/03/24 06/03/24 History [Lantus Solostar Pen] Insulin Lispro [humaLOG Kwikpen] 12 - 15 unit SQ AC-TID 06/03/24 06/03/24 History Potassium Chloride ER [K-Dur 20] 20 meq PO DAILY 06/03/24 06/03/24 History Allergies Allergy/AdvReac Type Severity Reaction Status Date / Time gabapentin AdvReac Hallucinati Verified 06/03/24 17:19 ons Physical Exam Vitals: Vital Signs Pulse Resp BP Pulse Ox 06/04/24 06:29 82 18 174/74 93 L 06/04/24 04:04 78 18 152/76 98 06/03/24 23:00 60 18 162/75 98 06/03/24 20:05 65 18 161/92 95 06/03/24 14:15 75 14 94/68 97 06/03/24 12:49 82 16 163/60 72 L Results CBC & Chem 7: 06/03/24 13:00 06/05/24 09:03 Labs: Abnormal Lab Results - Last 24 Hours (Table) 06/03/24 06/03/24 06/03/24 Range/Units 13:00 13:00 13:00 RBC 3.68 L (3.80-5.40) m/uL Neutrophils # 8.6 H (1.3-7.7) k/uL Lymphocytes # 0.8 L (1.0-4.8) k/uL APTT 21.8 L (22.0-30.0) sec ABG pCO2 (35-45) mmHg ABG pO2 (83-108) mmHg ABG HCO3 (21-25) mmol/L ABG Total CO2 (19-24) mmol/L ABG O2 Saturation (94-97) % Carbon Dioxide 37 H (22-30) mmol/L BUN 56 H (7-17) mg/dL Creatinine 2.72 H (0.52-1.04) mg/dL Glucose 154 H (74-99) mg/dL Calcium 10.8 H (8.4-10.2) mg/dL Troponin I (0.000-0.034) ng/mL Total Protein 5.9 L (6.3-8.2) g/dL Albumin 3.3 L (3.5-5.0) g/dL TSH 4.710 H (0.465-4.680) mIU/L Urine Protein (Negative) Calcium Oxalate Crystal (None) /hpf Urine Bacteria (None) /hpf 06/03/24 06/03/24 06/03/24 Range/Units 13:00 13:48 17:59 RBC (3.80-5.40) m/uL Neutrophils # (1.3-7.7) k/uL Lymphocytes # (1.0-4.8) k/uL APTT (22.0-30.0) sec ABG pCO2 58 H (35-45) mmHg ABG pO2 52 L* (83-108) mmHg ABG HCO3 39 H (21-25) mmol/L ABG Total CO2 41 H (19-24) mmol/L ABG O2 Saturation 88.9 L (94-97) % Carbon Dioxide (22-30) mmol/L BUN (7-17) mg/dL Creatinine (0.52-1.04) mg/dL Glucose (74-99) mg/dL Calcium (8.4-10.2) mg/dL Troponin I 0.051 H* 0.069 H* (0.000-0.034) ng/mL Total Protein (6.3-8.2) g/dL Albumin (3.5-5.0) g/dL TSH (0.465-4.680) mIU/L Urine Protein (Negative) Calcium Oxalate Crystal (None) /hpf Urine Bacteria (None) /hpf 06/03/24 06/04/24 Range/Units 22:34 06:34 RBC (3.80-5.40) m/uL Neutrophils # (1.3-7.7) k/uL Lymphocytes # (1.0-4.8) k/uL APTT (22.0-30.0) sec ABG pCO2 (35-45) mmHg ABG pO2 (83-108) mmHg ABG HCO3 (21-25) mmol/L ABG Total CO2 (19-24) mmol/L ABG O2 Saturation (94-97) % Carbon Dioxide (22-30) mmol/L BUN (7-17) mg/dL Creatinine (0.52-1.04) mg/dL Glucose (74-99) mg/dL Calcium (8.4-10.2) mg/dL Troponin I 0.064 H* (0.000-0.034) ng/mL Total Protein (6.3-8.2) g/dL Albumin (3.5-5.0) g/dL TSH (0.465-4.680) mIU/L Urine Protein 1+ H (Negative) Calcium Oxalate Crystal Rare H (None) /hpf Urine Bacteria Rare H (None) /hpf
[2024-06-04] MEDS: CARBIDOPA-LEVODOPA 25-100 MG 1 EACH TAB PO SCH (12:40)
--- NOTE | 2024-06-04 12:59 | US ---
EXAMINATION TYPE: US venous doppler duplex LE DATE OF EXAM: 06/04/2024 12:33 PM COMPARISON: NONE CLINICAL INDICATION: Female, 78 years old with history of elevated d-dimer; Elevated D-dimer SIDE PERFORMED: Bilateral TECHNIQUE: The lower extremity deep venous system is examined utilizing real time linear array sonog ynes with graded compression, color doppler sonography, and spectral Doppler. VESSELS IMAGED: Common Femoral Vein Deep Femoral Vein Greater Saphenous Vein * Femoral Vein Popliteal Vein Small Saphenous Vein * Proximal Calf Veins (* superficial vessels) Right Leg: Visualized portions appear negative for clot- popliteal veins not visualized due to edema Left Leg: Visualized portions appear negative for clot- proximal veins unable to be visualized due t o edema IMPRESSION: Grayscale, color doppler, spectral doppler imaging performed of the deep veins of the lo wer extremities. There is normal flow, compressibility, vascular waveforms. [facility], , 06/04/2024 12:56 PM
[2024-06-04] MEDS ORDERED: HYDROcodone/APAP 5-325MG 1 EACH TAB PO PRN (13:46)
[2024-06-04] MEDS: HYDROcodone/APAP 5-325MG 1 EACH TAB PO STA (13:57)
[2024-06-04] MEDS: BACLOFEN 10 MG TAB PO PRN (14:36)
[2024-06-04] MEDS: LIDOCAINE 4% PATCH TOPICAL SCH (14:37)
[2024-06-04] MEDS: INSULIN DETEMIR (LEVEMIR) 100 UNIT/ML SYR SQ SCH (20:10)
[2024-06-04] MEDS: ATORVASTATIN 10 MG TAB PO SCH (20:11)
[2024-06-05 10:05] LABS: African American GFR (CKD) 21 (>60 ml/min/1.73 sqM); Blood Urea Nitrogen 51 mg/dL (7-17); Chloride 100 mmol/L (98-107); Glucose 160 mg/dL (74-99); Non-African American GFR(CKD) 18 (>60 ml/min/1.73 sqM); Potassium 3.7 mmol/L (3.5-5.1); Sodium 143 mmol/L (137-145)
[2024-06-05 10:11] LABS: Anion Gap 8 mmol/L
[2024-06-05 10:46] LABS: Carbon Dioxide 35 mmol/L (22-30)
[2024-06-05 13:03] LABS: ABG Base Excess 13.2 mmol/L; ABG Oxygen Saturation 94.4 % (94-97); ABG PCO2 59 mmHg (35-45); ABG PH 7.44 (7.35-7.45); ABG PO2 67 mmHg (83-108); ABG TCO2 41 mmol/L (19-24); Allen Test Performed? Yes
[2024-06-05 13:07] LABS: ABG HCO3 40 mmol/L (21-25)
--- NOTE | 2024-06-05 14:32 | P.CNNES ---
History of Present Illness Consult date: 06/04/24 Requesting physician: Balwinder Antonio Reason for Consult: Weakness History of Present Illness: Patient is a 78-year-old female with history of Parkinson's disease, cervical spinal stenosis, came to the hospital by ambulance yesterday at 12:48 PM. Patient states that she came to the hospital because she could not stand up, bleed started over the last few days. Her mother tried to help her, but she could not. Patient states that she fell the other day and hurt her back. As per EMS flowsheet patient's daughter has mentioned, patient had increased weakness over the last few days. Daughter has mentioned that patient is normally able to stand on her own, today she was unable to get out of bed due to weakness. At this time patient requires stretcher for transport as she has become nonambulatory due to progression of Parkinson's. Vital signs at the scene was blood pressure 168/66, pulse rate 90, respiration 18, saturation 60%. Venous Doppler was negative for DVT. EKG shows sinus rhythm. CT head revealed no acute intracranial process. I personally reviewed CT head, agree with the findings. Chest x-ray showed low lung volumes with hypoventilatory changes. Patient does take simvastatin 20 mg, primidone 100 mg twice daily, BuSpar, allopurinol, Eliquis 5 mg twice daily, Lexapro 10 mg, Sinemet 25/100, 3 times daily, losartan, levothyroxine, B12, metoprolol, baclofen 5 mg daily as needed, amiodarone, calcium, insulin. Patient was diagnosed with Parkinson's in January 2023. She follows up with Dr. Lynn. Patient takes Sinemet 3 tablets a day, and Dr. Lynn increased the dose of Sinemet to 4 times a day but patient started getting worse. They were recommended to go back to 3 pills per day. Patient's daughter denies any history of dementia symptoms she makes her own decisions. She does have some trouble with incontinence, leaking of urine. Patient's workup on last admission included: * MRI of the cervical spine without contrast was performed. Radiologist reported exaggerated cervical curvature he demonstrated. Fairly advanced multilevel degenerative changes remain present and more prominent versus prior. Multilevel significant spinal canal effacement is noted. It appears radiologist under reported that extent of spinal stenosis. On my review there is severe spinal stenosis at C3-C4, C4-C5 levels. Probable some associated abnormal spinal cord signal as well. * Orthopedic surgery recommended conservative treatment before considering decompressive surgery. * B12 3368, folate 16.4. TSH 6.63 with normal free T4 1.82. We will defer to IM for abnormal TFTs. * Hemoglobin A1c 7.1. Lipid panel with cholesterol 181, LDL 104, HDL 41, triglycerides 176. Continue Lipitor 10 mg daily. Review of Systems Generalized weakness, all other pertinent positive and negatives mentioned in the HPI. Frequent falls. Past Medical History Past Medical History: Heart Failure, Diabetes Mellitus, Hyperlipidemia, Hypertension, Pneumonia, Rheumatoid Arthritis (RA) Additional Past Medical History / Comment(s): tremors, renal lithiasis, hemorrhoids(sx done), "has had problems w/low magnesium.anemia. per spouse pt had past cancer "uterine or cervical-had hysterectomy". it was previously charted that pt had hx of ra and cfh spouse not able to verify this, History of Any Multi-Drug Resistant Organisms: ESBL Date of last positivie culture/infection: 09/15/23 MDRO Source:: URINE Past Surgical History: Appendectomy, Hysterectomy, Orthopedic Surgery, Tonsillectomy Additional Past Surgical History / Comment(s): rt total knee repalcement, cataracts, hemmorroidectomy, colonoscopy Past Anesthesia/Blood Transfusion Reactions: No Reported Reaction Additional Past Anesthesia/Blood Transfusion Reaction / Comment(s): per psouse- pt never receieved any blood Past Psychological History: No Psychological Hx Reported Additional Psychological History / Comment(s): and was living in the family home under the care of the and family members. [employer] nonsmoker no alcohol use. No experience. No international travel. No animal exposures. Has been to multiple tertiary [facility] Smoking Status: Never smoker Past Alcohol Use History: None Reported Past Drug Use History: None Reported - Past Family History Mother Family Medical History: Diabetes Mellitus Father Additional Family Medical History / Comment(s): brain anuerysm Medications and Allergies Home Medications Medication Instructions Recorded Confirmed Type Simvastatin [Zocor] 20 mg PO HS 07/18/14 06/03/24 History Primidone 100 mg PO BID 07/23/22 06/03/24 History allopurinoL [Zyloprim] 300 mg PO DAILY 07/23/22 06/03/24 History busPIRone HCl [Buspar] 5 mg PO DAILY 07/23/22 06/03/24 History Apixaban [Eliquis] 5 mg PO BID tab 08/04/22 06/03/24 Rx Carbidopa-Levodopa 25-100 mg 1 tab PO TID-W/MEALS 09/14/23 06/03/24 History [Sinemet 25-100 mg] Escitalopram Oxalate [Lexapro] 10 mg PO DAILY 09/14/23 06/03/24 History Cyanocobalamin (Vitamin B-12) 1,000 mcg PO DAILY 02/27/24 06/03/24 History [Vitamin B-12] Docusate [Colace] 100 mg PO BID 02/27/24 06/03/24 History Levothyroxine Sodium [Synthroid] 75 mcg PO AC-BRKFST 02/27/24 06/03/24 History Losartan Potassium 50 mg PO DAILY 02/27/24 06/03/24 History Nitroglycerin Sl Tabs [Nitrostat] 0.4 mg SUBLINGUAL Q5M PRN 02/27/24 06/03/24 History Simethicone 180 mg PO ACHS PRN 02/27/24 06/03/24 History polyethylene glycoL 3350 [Miralax] 17 gm PO DAILY PRN 02/27/24 06/03/24 History Metoprolol Succinate (ER) [Toprol 50 mg PO BID tab 03/05/24 06/03/24 Rx XL] Acetaminophen Tab [Tylenol Tab] 500 mg PO Q6H PRN 06/03/24 06/03/24 History Amiodarone [Cordarone] 100 mg PO DAILY 06/03/24 06/03/24 History Baclofen 5 mg PO DAILY PRN 06/03/24 06/03/24 History Bumetanide [BUMEX] 2 mg PO BID 06/03/24 06/03/24 History Calcium Carbonate [Calcium] 600 mg PO DAILY@1400 06/03/24 06/03/24 History Denosumab [Prolia] 60 mg SQ Q180D 06/03/24 06/03/24 History Insulin Glargine,Hum.rec.anlog 20 units SQ HS PRN 06/03/24 06/03/24 History [Lantus Solostar Pen] Insulin Glargine,Hum.rec.anlog 40 units SQ AC-BRKFST 06/03/24 06/03/24 History [Lantus Solostar Pen] Insulin Lispro [humaLOG Kwikpen] 12 - 15 unit SQ AC-TID 06/03/24 06/03/24 History Potassium Chloride ER [K-Dur 20] 20 meq PO DAILY 06/03/24 06/03/24 History Allergies Allergy/AdvReac Type Severity Reaction Status Date / Time gabapentin AdvReac Hallucinati Verified 06/03/24 17:19 ons Physical Examination - Vital Signs Vital Signs: Vital Signs Temp Pulse Pulse Resp BP BP Pulse Ox 06/04/24 22:04 75 18 06/04/24 22:00 98.7 F 78 18 115/52 92 L 06/04/24 21:37 161/71 06/04/24 19:55 97.9 F 75 18 168/70 91 L 06/04/24 18:03 80 18 133/98 90 L 06/04/24 10:48 89 18 133/98 91 L 06/04/24 08:47 90 L 06/04/24 08:23 84 18 175/74 92 L 06/04/24 06:29 82 18 174/74 93 L 06/04/24 04:04 78 18 152/76 98 06/03/24 23:00 60 18 162/75 98 Intake and Output 06/04/24 06/04/24 06/04/24 06:59 14:59 22:59 Intake Total 100 Output Total 600 Balance -500 Intake: Oral 100 Output: Urine 600 Other: Voiding Method External Catheter Weight 99.79 kg Patient is an elderly female, very pleasant, in no acute distress. Patient is alert awake oriented to time place and person. Patient knows it is May 2024, but she thinks that she is in the [place] and the visitation. She knows that she is in [place] in [place]. Speech and language functions are normal. Patient can name and repeat very well. No aphasia or dysarthria. Attention, concentration is intact and fund of knowledge is slightly limited. Detail cognitive function testing deferred. Patient has slow mentation. She is quite hard of hearing. On cranial nerve examination, pupils are equal, round and reacting to light, visual vanessa are full on confrontation, with no neglect on double simultaneous stimulation. Extraocular muscles are intact with no nystagmus. Face is symmetric, tongue protrudes to the midline. Palatal elevation and sensation normal, hearing is moderately decreased and shoulder shrug normal, facial sensation normal. Patient has moderate head tremor. On muscle strength testing, there is no pronator drift and the strength is normal in arms distally and proximally. In the lower limbs (right/left), hip flexion is 4 4+/4 4+, ankle dorsiflexion 4/5, Deep tendon reflexes are symmetric 1 in the upper limbs at biceps and brachioradialis, 0 at the knees and ankles and plantars are flat bilaterally. Sensory to touch is equal with no neglect on double simultaneous stimulation. Cerebellar function showed no ataxia for [id number] testing, although there was mild tremors. No ataxia for [id number] testing on either side. Tone is mildly increased and bulk of muscles normal. Gait deferred.. On general examination, there is no carotid bruit or murmur, S1-S2 audible. Chest is clear on consultation. Abdomen is soft nontender. No organomegaly, bowel sounds present. Peripheral pulses are present. Mild peripheral edema. Results - Laboratory Findings CBC and BMP: 06/03/24 13:00 06/05/24 09:03 Abnormal Lab Findings: Abnormal Labs 06/03/24 06/03/24 06/03/24 13:00 13:00 13:00 RBC 3.68 L Neutrophils # 8.6 H Lymphocytes # 0.8 L APTT 21.8 L D-Dimer ABG pCO2 ABG pO2 ABG HCO3 ABG Total CO2 ABG O2 Saturation Carbon Dioxide 37 H BUN 56 H Creatinine 2.72 H Glucose 154 H Calcium 10.8 H Troponin I Total Protein 5.9 L Albumin 3.3 L TSH 4.710 H Free T3 pg/mL 1.70 L Urine Protein Calcium Oxalate Crystal Urine Bacteria 06/03/24 06/03/24 06/03/24 13:00 13:48 17:59 RBC Neutrophils # Lymphocytes # APTT D-Dimer ABG pCO2 58 H ABG pO2 52 L* ABG HCO3 39 H ABG Total CO2 41 H ABG O2 Saturation 88.9 L Carbon Dioxide BUN Creatinine Glucose Calcium Troponin I 0.051 H* 0.069 H* Total Protein Albumin TSH Free T3 pg/mL Urine Protein Calcium Oxalate Crystal Urine Bacteria 06/03/24 06/04/24 06/04/24 22:34 06:34 11:17 RBC Neutrophils # Lymphocytes # APTT D-Dimer 0.93 H ABG pCO2 ABG pO2 ABG HCO3 ABG Total CO2 ABG O2 Saturation Carbon Dioxide BUN Creatinine Glucose Calcium Troponin I 0.064 H* Total Protein Albumin TSH Free T3 pg/mL Urine Protein 1+ H Calcium Oxalate Crystal Rare H Urine Bacteria Rare H Assessment and Plan Assessment: * 78-year-old female with history of Parkinson's disease, came with a few days history of worsening tremors, worsening mobility, and frequent falls. Rule out worsening of parkinsonism's or other metabolic problems. * History of cervical spinal stenosis, severe at C3 4 and C4 5 levels causing m yelomalacia and cord signal changes. This may be contributing to the weakness and falls. Previously orthopedic surgery had recommended medical management. * Chronic renal insufficiency * Congestive heart failure * History of atrial fibrillation, on Eliquis. * Hypothyroidism * Diabetes * Hyperlipidemia * Hypertension * Rheumatoid arthritis Plan: * Continue same dose of Sinemet 25/100 3 times daily. Previously patient had increased dose of Sinemet to 25/100 4 times daily and symptoms got worse. * Continue primidone 100 mg twice daily. * Continue Eliquis 5 mg twice daily. * Continue vitamin B12 1000 mcg orally daily. * PT, OT evaluate gait. * Evaluation of any other comorbid medical condition, as per IM. * Neurology will follow clinically. Thank you for the consult.
--- NOTE | 2024-06-05 15:12 | P.PN ---
Subjective Progress Note Date: 06/05/24 Patient is a 78-year-old white female with past medical history significant for frequent falls, Parkinson's disease, hypertension, hyperlipidemia, diabetes mellitus, hypothyroidism, chronic kidney disease, atrial fibrillation, among other things. Patient is a poor historian, and is also hard of hearing. Apparently, presents to the emergency department yesterday afternoon with increased generalized weakness and fatigue. Has had reduced oral intake. Reportedly, fell in the shower a "couple days ago". She does have minimal bruising and an abrasion on her left thoracic level back. No deformities or crepitus. Denies has hitting her head. Denies losing consciousness. Brain CT of the brain without contrast did not show any acute intracranial process. Apparently, patient could not get up out of bed yesterday, and was sent into the emergency department for evaluation. She was noted to be hypoxic, on room air, in the emergency department. For this reason, we were consulted. She is currently resting comfortably in bed. She is on 3 L/min nasal cannula. SPO2 99%. She reportedly wears 2 L home O2 at bedtime while at home. Denies any history of pre-existing lung disease such as COPD or asthma. She does not smoke cigarettes. Denies any infectious-like symptoms. No fever, cough, sputum pr oduction chest pain. Denies sick contacts. She denies history of heart failure. Denies chest pain. Denies increase in lower extremity swelling. Most recent available echocardiogram from 09/15/2023 showing mild LV dysfunction with an estimated ejection fraction of 45 to 50%. She was previously maintained on Bumex, which may have been stopped on her previous hospitalization in March,. Chest x-ray showing low lung volumes with hypoventilatory changes and possible mild venous congestion.. No focal consolidations, sizable pleural effusions, or visible pneumothoraces. CBC: WBC count 10.4, hemoglobin 11.6, hematocrit 36.6, platelets 208. CMP: Sodium 141, potassium 3.6, chloride 103, s zackary bicarb 37, BUN 56, creatinine 2.72, glucose 154. LFTs unremarkable. Troponins elevated at 0.051, 0.069, and 0.064 respectively. NT proBNP 1060. Negative for influenza, RSV, COVID. ABG done earlier which showed a PaO2 of 52, pCO2 of 58, pH of 7.44. This is done on 2 L supplemental oxygen. Again, patient is in no respiratory distress. She is resting comfortably in bed. Her primary complaint is some thoracic level back pain from her fall. The patient is seen today June 05, 2024 in follow-up on the selective care unit. She is currently resting in bed. She is awake but drowsy at times. Currently maintaining O2 saturations up to 100% on 5 L high flow nasal cannula. Sodium 143. Potassium 3.7. Bicarb 35. BUN 51. Creatinine 2.49. Glucose 160. Arterial blood gases revealed a PaO2 of 67, pCO2 of 59 and a pH of 7.44 on 28% FiO2. Dopplers of the lower extremity were negative for DVT. She remains anticoagulated with Eliquis. Objective - Vital Signs Vital signs: Vital Signs Temp 98.3 F 06/05/24 11:40 Pulse 69 06/05/24 11:40 Resp 20 06/05/24 12:20 BP 134/60 06/05/24 11:40 Pulse Ox 100 06/05/24 12:20 FiO2 Intake & Output 06/04/24 06/05/24 06/05/24 18:59 06:59 18:59 Intake Total 100 Output Total 600 Balance -500 Weight 98.5 kg Intake: Oral 100 Output: Urine 600 Other: Voiding Method External Catheter External Catheter - Exam GENERAL EXAM: Alert, 78-year-old obese female, in no apparent distress, generalized resting tremor. HEAD: Normocephalic and atraumatic EYES: Normal reaction of pupils, equal size, visual vanessa intact, no nystagmus. NOSE: Clear with pink turbinates. THROAT: No erythema or exudates. NECK: No masses, no JVD. CHEST: No chest wall deformity. LUNGS: Equal air entry with no crackles, wheeze, rhonchi or dullness. On 2 L/min nasal cannula. CVS: S1 and S2 normal with no audible murmur, regular rhythm. No extra heart sounds ABDOMEN: No hepatosplenomegaly, active bowel sounds, no guarding or rigidity. SPINE: No scoliosis or deformity. Left lateral thoracic level back abrasion and bruising/ecchymosis. No subcutaneous emphysema or crepitus SKIN: No rashes CENTRAL NERVOUS SYSTEM: Alert and oriented x 3, left facial droop, no aphasia or dysarthria, tongue protrudes midline, soft palate rises midline, facial sensation equal, bilateral upper extremities resting tremor, tone is normal in all 4 extremities, without unilateral weakness. Patellar DTRs not producible, sensation intact throughout, no ataxia, gait assessment deferred. EXTREMITIES: There is no peripheral edema, clubbing, or cyanosis. Peripheral pulses are intact. - Labs CBC & Chem 7: 06/03/24 13:00 06/05/24 09:03 Labs: Abnormal Lab Results - Last 24 Hours (Table) 06/05/24 06/05/24 Range/Units 09:03 12:48 ABG pCO2 59 H (35-45) mmHg ABG pO2 67 L (83-108) mmHg ABG HCO3 40 H* (21-25) mmol/L ABG Total CO2 41 H (19-24) mmol/L Carbon Dioxide 35 H (22-30) mmol/L BUN 51 H (7-17) mg/dL Creatinine 2.49 H (0.52-1.04) mg/dL Glucose 160 H (74-99) mg/dL Assessment and Plan Assessment: Acute on chronic hypoxemic respiratory failure, currently on 2 L/min nasal cannula, chest x-ray does not show any focal infiltrates or evidence of pneumonia. There are low lung volumes with hypoventilatory changes. Cardiac silhouette stable. Possible mild pulmonary vascular congestion; however, NT proBNP only mildly elevated at 1060. Acute on chronic kidney disease, creatinine slightly worse than baseline Generalized weakness Frequent falls History of Parkinson's disease Elevated troponins, flat and not consistent with ACS History of paroxysmal atrial fibrillation, currently normal sinus rhythm, chronically anticoagulated on Eliquis History of heart failure with reduced ejection fraction, most recent available echocardiogram from September, showing improved left ventricular ejection fraction of 45 to 50%. History of hypertension History of hyperlipidemia Diabetes mellitus, insulin-dependent Hypothyroidism History of rheumatoid arthritis History of cervical spine stenosis History of right femur fracture Obesity, with a BMI of 35.5 kg/m Hard of hearing Plan: The patient was seen and evaluated ABGs, labs and medications reviewed Continue to titrate the FiO2 as tolerated Overall prognosis is guarded Plan will be for subacute rehab possibly at [facility] at discharge I have personally seen and examined the patient, performed the documentation and the assessment and plan as written. Number of minutes spent on the visit: 10.
--- NOTE | 2024-06-05 21:09 | P.PN ---
Subjective Progress Note Date: 06/05/24 Patient is 78-year-old female with past medical history significant for hypertension, diabetes mellitus type 2, atrial fibrillation maintained on Eliquis, chronic kidney disease, hypothyroidism, hyperlipidemia, and Parkinson's who presents with fatigue and weakness for about a week that worsened yesterday to the point she couldn't get out of bed. All history provided by daughter and son-in-law. States that she has a history of falls due to weakness/losing balance but denies syncope or loss of consciousness. They endorse decreased oral intake. They note that her dose of primidone was increased on Tuesday. Tuesday night they called EMS to help her up from the floor after she lost her balance and fell and they noted her O2 saturation to be low and recommended increasing her usual nighttime oxygen from 2L to 3L. There is no focal weakness. She was found to have elevated troponin x3: 0.051, 0.069, 0.064, respectively but she is denying chest pain. Due to her hypoxic status pulmonology was consulted. EKG showed normal sinus rhythm. Brain CT negative. Chest x-ray: Low lung volume exam with hypoventilatory changes, no acute findings. Troponoin x 3 0.051, 0.069, 0.064. WBCs 10.4, hemoglobin 11.6, sodium 141, potassium 3.6, CO2 37, BUN 56, creatinine 2.72, calcium 10.8, NT proBNP 1060. ABG: pH 7.44, pCO2 58, pO2 52, HCO3 39. Urinalysis negative. Afebrile, hypertensive in the 160s initially, 72% saturation on room air then 97% on 4 L nasal cannula. ED documentation reviewed. 06/05/2024 Patient evaluated in follow up. Lethargic and difficult to arouse. Required increased oxygen up to 8 L overnight for decreased saturations of 77%. Venous doppler reveals no DVT. Patient has been anticoagulated with eliquis. Review of systems: Unable to complete Physical examination: Vital signs are reviewed. General: No acute distress. AOx1. HEENT: Head exam is unremarkable. EOMI bilaterally. ACs patent. Nares patent. Lungs: Bilateral breath sounds present; no rhonchi, wheezes, or rales. Heart: Rate and rhythm are regular. S1-S2 present. No murmur/rub/gallops. Abdomen: Soft, mild LLQ tenderness to palpation, nondistended. Bowel sounds present. Extremities: No edema present. Symmetric movement. Psych: Normal affect and mood. Cooperative. Assessment/Plan: Generalized weakness Frequent falls Consult PT/OT Neurology consulted -Hx of parkinsons with worsening tremors and gait dysfunction Primidone was recently increased on an outpatient basis. -Hx cervical spinal stenosis at the level of C3 4 and C4 5 Acute on chronic hypoxic respiratory failure Currently on 3 L nasal cannula Pulmonology following Elevated d-dimer Obtain ultrasound venous Doppler duplex bilateral lower extremity Chronic kidney disease stage IIIb Creatinine 2.72 slightly worsened compared to baseline of 1.5-2 Elevated troponins, unlikely ACS Paroxysmal atrial fibrillation Continue Eliquis Diabetes mellitus type 2 Monitor glucose Insulin sliding scale -Hypothyroidism -Hypertension -Chronic heart failure systolic dysfunction with reduced EF no acute exac erbation -Hx of rheumatoid arthritis DVT prophylaxis: Eliquis The patient is admitted with an anticipated less than than 2 midnight stay for evaluation of generalized weakness CODE STATUS: Full code The impression and plan of care has been dictated by Viviana Petty, Nurse Practitioner as directed. Dr. Roberto MD I have performed a history and physical examination and medical decision making of this patient, discussed the same with the dictator, and agree with the dictators assessment and plan as written, documented as a scribe. Based on total visit time, I have performed more than 50% of this visit. Objective - Vital Signs Vital signs: Vital Signs Temp 98.4 F 06/05/24 15:56 Pulse 67 06/05/24 15:56 Resp 20 06/05/24 15:56 BP 129/64 06/05/24 15:56 Pulse Ox 91 L 06/05/24 15:56 FiO2 Intake & Output 06/05/24 06/05/24 06/06/24 06:59 18:59 06:59 Intake Total 100 Output Total 600 275 Balance -500 -275 Weight 98.5 kg Intake: Oral 100 Output: Urine 600 275 Other: Voiding Method External Catheter External Catheter - Labs CBC & Chem 7: 06/03/24 13:00 06/05/24 09:03 Labs: Abnormal Lab Results - Last 24 Hours (Table) 06/05/24 06/05/24 Range/Units 09:03 12:48 ABG pCO2 59 H (35-45) mmHg ABG pO2 67 L (83-108) mmHg ABG HCO3 40 H* (21-25) mmol/L ABG Total CO2 41 H (19-24) mmol/L Carbon Dioxide 35 H (22-30) mmol/L BUN 51 H (7-17) mg/dL Creatinine 2.49 H (0.52-1.04) mg/dL Glucose 160 H (74-99) mg/dL Assessment and Plan Time with Patient: Less than 30
[2024-06-06 07:06] LABS: African American GFR (CKD) 22 (>60 ml/min/1.73 sqM); Anion Gap 3 mmol/L; Blood Urea Nitrogen 55 mg/dL (7-17); Calcium 9.5 mg/dL (8.4-10.2); Carbon Dioxide 35 mmol/L (22-30); Chloride 102 mmol/L (98-107); Glucose 142 mg/dL (74-99); Non-African American GFR(CKD) 19 (>60 ml/min/1.73 sqM); Potassium 3.8 mmol/L (3.5-5.1); Sodium 140 mmol/L (137-145)
--- NOTE | 2024-06-06 10:32 | P.PN ---
Subjective Patient is 78-year-old female with past medical history significant for hypertension, diabetes mellitus type 2, atrial fibrillation maintained on Felicity shana, chronic kidney disease, hypothyroidism, hyperlipidemia, and Parkinson's who presents with fatigue and weakness for about a week that worsened yesterday to the point she couldn't get out of bed. All history provided by daughter and son-in-law. States that she has a history of falls due to weakness/losing balance but denies syncope or loss of consciousness. They endorse decreased oral intake. They note that her dose of primidone was increased on Tuesday. Tuesday night they called EMS to help her up from the floor after she lost her balance and fell and they noted her O2 saturation to be low and recommended increasing her usual nighttime oxygen from 2L to 3L. There is no focal we akness. She was found to have elevated troponin x3: 0.051, 0.069, 0.064, respectively but she is denying chest pain. Due to her hypoxic status pulmonology was consulted. EKG showed normal sinus rhythm. Brain CT negative. Chest x-ray: Low lung volume exam with hypoventilatory changes, no acute findings. Troponoin x 3 0.051, 0.069, 0.064. WBCs 10.4, hemoglobin 11.6, sodium 141, potassium 3.6, CO2 37, BUN 56, creatinine 2.72, calcium 10.8, NT proBNP 1060. ABG: pH 7.44, pCO2 58, pO2 52, HCO3 39. Urinalysis negative. Afebrile, hypertensive in the 160s initially, 72% saturation on room air then 97% on 4 L nasal cannula. ED documentation reviewed. 06/05/2024 Patient evaluated in follow up. Lethargic and difficult to arouse. Required increased oxygen up to 8 L overnight for decreased saturations of 77%. Venous doppler reveals no DVT. Patient has been anticoagulated with eliquis. 06/06/2024 Patient seen at bedside. No significant overnight events. Patient's oxygen demand decreased now on 2 L saturating at 91%. Complaining of back pain. Review of systems: Unable to complete Physical examination: Vital signs are reviewed. General: No acute distress. AOx1. HEENT: Head exam is unremarkable. EOMI bilaterally. ACs patent. Nares patent. Lungs: Bilateral breath sounds present; no rhonchi, wheezes, or rales. Heart: Rate and rhythm are regular. S1-S2 present. No murmur/rub/gallops. Abdomen: Soft, mild LLQ tenderness to palpation, nondistended. Bowel sounds present. Extremities: No edema present. Symmetric movement. Psych: Normal affect and mood. Cooperative. Assessment/Plan: Generalized weakness Frequent falls Consult PT/OT Neurology consulted -Hx of parkinsons with worsening tremors and gait dysfunction Primidone was recently increased on an outpatient basis. -Hx cervical spinal stenosis at the level of C3 4 and C4 5 Acute on chronic hypoxic respiratory failure Currently on 2 L nasal cannula Pulmonology following Elevated d-dimer Doppler shows normal flow, compressibility, vascular waveforms bilaterally. Chronic kidney disease stage IIIb Creatinine 2.72 slightly worsened compared to baseline of 1.5-2 Elevated troponins, unlikely ACS Paroxysmal atrial fibrillation Continue Eliquis Diabetes mellitus type 2 Monitor glucose Insulin sliding scale -Hypothyroidism -Hypertension -Chronic heart failure systolic dysfunction with reduced EF no acute exacerbation PT OT consulted -Hx of rheumatoid arthritis DVT prophylaxis: Eliquis The patient is admitted with an anticipated less than than 2 midnight stay for evaluation of generalized weakness CODE STATUS: Full code Dr. Roberto MD I have performed a history and physical examination and medical decision making of this patient, discussed the same with the the resident, and agree with the assessment and plan as written. I performed brief physical exam. Objective - Vital Signs Vital signs: Vital Signs Temp 98.5 F 06/06/24 08:09 Pulse 66 06/06/24 08:09 Resp 21 06/06/24 08:09 BP 166/71 06/06/24 08:09 Pulse Ox 91 L 06/06/24 08:09 FiO2 Intake & Output 06/05/24 06/06/24 06/06/24 18:59 06:59 18:59 Output Total 275 Balance -275 Weight 95 kg Output: Urine 275 Other: Voiding Method External Catheter External Catheter # Voids 1 - Labs CBC & Chem 7: 06/03/24 13:00 06/07/24 07:35 Labs: Abnormal Lab Results - Last 24 Hours (Table) 06/05/24 06/05/24 06/06/24 Range/Units 09:03 12:48 06:10 ABG pCO2 59 H (35-45) mmHg ABG pO2 67 L (83-108) mmHg ABG HCO3 40 H* (21-25) mmol/L ABG Total CO2 41 H (19-24) mmol/L Carbon Dioxide 35 H 35 H (22-30) mmol/L BUN 51 H 55 H (7-17) mg/dL Creatinine 2.49 H 2.41 H (0.52-1.04) mg/dL Glucose 160 H 142 H (74-99) mg/dL
[2024-06-06] MEDS: acetaZOLAMIDE 250 MG TAB PO SCH (12:35)
--- NOTE | 2024-06-06 14:57 | P.PN ---
Subjective Progress Note Date: 06/06/24 Patient is a 78-year-old white female with past medical history significant for frequent falls, Parkinson's disease, hypertension, hyperlipidemia, diabetes mellitus, hypothyroidism, chronic kidney disease, atrial fibrillation, among other things. Patient is a poor historian, and is also hard of hearing. Apparently, presents to the emergency department yesterday afternoon with increased generalized weakness and fatigue. Has had reduced oral intake. Reportedly, fell in the shower a "couple days ago". She does have minimal bruising and an abrasion on her left thoracic level back. No deformities or crepitus. Denies has hitting her head. Denies losing consciousness. Brain CT of the brain without contrast did not show any acute intracranial process. Apparently, patient could not get up out of bed yesterday, and was sent into the emergency department for evaluation. She was noted to be hypoxic, on room air, in the emergency department. For this reason, we were consulted. She is currently resting comfortably in bed. She is on 3 L/min nasal cannula. SPO2 99%. She reportedly wears 2 L home O2 at bedtime while at home. Denies any history of pre-existing lung disease such as COPD or asthma. She does not smoke cigarettes. Denies any infectious-like symptoms. No fever, cough, sputum pr oduction chest pain. Denies sick contacts. She denies history of heart failure. Denies chest pain. Denies increase in lower extremity swelling. Most recent available echocardiogram from 09/15/2023 showing mild LV dysfunction with an estimated ejection fraction of 45 to 50%. She was previously maintained on Bumex, which may have been stopped on her previous hospitalization in March,. Chest x-ray showing low lung volumes with hypoventilatory changes and possible mild venous congestion.. No focal consolidations, sizable pleural effusions, or visible pneumothoraces. CBC: WBC count 10.4, hemoglobin 11.6, hematocrit 36.6, platelets 208. CMP: Sodium 141, potassium 3.6, chloride 103, s zackary bicarb 37, BUN 56, creatinine 2.72, glucose 154. LFTs unremarkable. Troponins elevated at 0.051, 0.069, and 0.064 respectively. NT proBNP 1060. Negative for influenza, RSV, COVID. ABG done earlier which showed a PaO2 of 52, pCO2 of 58, pH of 7.44. This is done on 2 L supplemental oxygen. Again, patient is in no respiratory distress. She is resting comfortably in bed. Her primary complaint is some thoracic level back pain from her fall. The patient is seen today June 05, 2024 in follow-up on the selective care unit. She is currently resting in bed. She is awake but drowsy at times. Currently maintaining O2 saturations up to 100% on 5 L high flow nasal cannula. Sodium 143. Potassium 3.7. Bicarb 35. BUN 51. Creatinine 2.49. Glucose 160. Arterial blood gases revealed a PaO2 of 67, pCO2 of 59 and a pH of 7.44 on 28% FiO2. Dopplers of the lower extremity were negative for DVT. She remains anticoagulated with Eliquis. The patient is seen today June 06, 2024 in follow-up on the selective care unit. She is currently sitting up in a chair. More awake and alert today. Denies any worsening shortness of breath, cough or congestion. She is maintaining O2 saturations in the 90s on 2 L/min per nasal cannula. Sodium 140. Potassium 3.8. Bicarb 35. BUN 55. Creatinine 2.41. Glucose 142. She has been initiated on Diamox. Anticoagulated with Eliquis Objective - Vital Signs Vital signs: Vital Signs Temp 98 F 06/06/24 12:39 Pulse 64 06/06/24 14:14 Resp 18 06/06/24 14:14 BP 143/80 06/06/24 12:39 Pulse Ox 95 06/06/24 12:39 FiO2 Intake & Output 06/05/24 06/06/24 06/06/24 18:59 06:59 18:59 Intake Total 100 Output Total 275 100 Balance -275 0 Weight 95 kg Intake: Oral 100 Output: Urine 275 100 Other: Voiding Method External Catheter External Catheter External Catheter # Voids 1 - Exam GENERAL EXAM: Alert, 78-year-old female, sitting up in a chair, on 2 L nasal ca nnula, in no apparent distress, generalized resting tremor. HEAD: Normocephalic and atraumatic EYES: Normal reaction of pupils, equal size, visual vanessa intact, no nystagmus. NOSE: Clear with pink turbinates. THROAT: No erythema or exudates. NECK: No masses, no JVD. CHEST: No chest wall deformity. LUNGS: Equal air entry with no crackles, wheeze, rhonchi or dullness. CVS: S1 and S2 normal with no audible murmur, regular rhythm. No extra heart sounds ABDOMEN: No hepatosplenomegaly, active bowel sounds, no guarding or rigidity. SPINE: No scoliosis or deformity. Left lateral thoracic level back abrasion and bruising/ecchymosis. No subcutaneous emphysema or crepitus SKIN: No rashes CENTRAL NERVOUS SYSTEM: Alert and oriented x 3, left facial droop, bilateral upper extremities resting tremor, tone is normal in all 4 extremities, without unilateral weakness. EXTREMITIES: There is no peripheral edema, clubbing, or cyanosis. Peripheral pulses are intact. - Labs CBC & Chem 7: 06/03/24 13:00 06/06/24 06:10 Labs: Abnormal Lab Results - Last 24 Hours (Table) 06/06/24 Range/Units 06:10 Carbon Dioxide 35 H (22-30) mmol/L BUN 55 H (7-17) mg/dL Creatinine 2.41 H (0.52-1.04) mg/dL Glucose 142 H (74-99) mg/dL Assessment and Plan Assessment: Acute on chronic hypoxemic respiratory failure, currently on 2 L/min nasal cannula, chest x-ray does not show any focal infiltrates or evidence of pneumonia. There are low lung volumes with hypoventilatory changes. Cardiac silhouette stable. Possible mild pulmonary vascular congestion; however, NT proBNP only mildly elevated at 1060. Acute on chronic kidney disease, creatinine slightly worse than baseline Generalized weakness Frequent falls History of Parkinson's disease Elevated troponins, flat and not consistent with ACS History of paroxysmal atrial fibrillation, currently normal sinus rhythm, chronically anticoagulated on Eliquis History of heart failure with reduced ejection fraction, most recent available echocardiogram from September, showing improved left ventricular ejection fraction of 45 to 50%. History of hypertension History of hyperlipidemia Diabetes mellitus, insulin-dependent Hypothyroidism History of rheumatoid arthritis History of cervical spine stenosis History of right femur fracture Obesity, with a BMI of 35.5 kg/m Hard of hearing Plan: The patient was seen and evaluated Labs and medications reviewed Continue to titrate the FiO2 as tolerated More alert today, up in a chair Plan will be for subacute rehab possibly at [facility] at discharge I have personally seen and examined the patient, performed the documentation and the assessment and plan as written. Number of minutes spent on the visit: 10.
[2024-06-07 08:24] LABS: African American GFR (CKD) 21 (>60 ml/min/1.73 sqM); Anion Gap 0 mmol/L; Blood Urea Nitrogen 50 mg/dL (7-17); Carbon Dioxide 39 mmol/L (22-30); Chloride 102 mmol/L (98-107); Glucose 155 mg/dL (74-99); Non-African American GFR(CKD) 18 (>60 ml/min/1.73 sqM); Potassium 3.8 mmol/L (3.5-5.1); Sodium 141 mmol/L (137-145)
--- NOTE | 2024-06-07 09:30 | P.PN ---
Subjective Patient is 78-year-old female with past medical history significant for hypertension, diabetes mellitus type 2, atrial fibrillation maintained on Felicity shaan, chronic kidney disease, hypothyroidism, hyperlipidemia, and Parkinson's who presents with fatigue and weakness for about a week that worsened yesterday to the point she couldn't get out of bed. All history provided by daughter and son-in-law. States that she has a history of falls due to weakness/losing balance but denies syncope or loss of consciousness. They endorse decreased oral intake. They note that her dose of primidone was increased on Tuesday. Tuesday night they called EMS to help her up from the floor after she lost her balance and fell and they noted her O2 saturation to be low and recommended increasing her usual nighttime oxygen from 2L to 3L. There is no focal we akness. She was found to have elevated troponin x3: 0.051, 0.069, 0.064, respectively but she is denying chest pain. Due to her hypoxic status pulmonology was consulted. EKG showed normal sinus rhythm. Brain CT negative. Chest x-ray: Low lung volume exam with hypoventilatory changes, no acute findings. Troponoin x 3 0.051, 0.069, 0.064. WBCs 10.4, hemoglobin 11.6, sodium 141, potassium 3.6, CO2 37, BUN 56, creatinine 2.72, calcium 10.8, NT proBNP 1060. ABG: pH 7.44, pCO2 58, pO2 52, HCO3 39. Urinalysis negative. Afebrile, hypertensive in the 160s initially, 72% saturation on room air then 97% on 4 L nasal cannula. ED documentation reviewed. 06/05/2024 Patient evaluated in follow up. Lethargic and difficult to arouse. Required increased oxygen up to 8 L overnight for decreased saturations of 77%. Venous doppler reveals no DVT. Patient has been anticoagulated with eliquis. 06/06/2024 Patient seen at bedside. No significant overnight events. Patient's oxygen demand decreased now on 2 L saturating at 91%. Complaining of back pain. 06/07/2024 Patient seen at bedside. No significant overnight events. Patient continues to require 2 L but saturating slightly higher between 93 to 95%. Bicarb increased from 35 up to 39 today, even after starting acetazolamide. Review of systems: Unable to complete Physical examination: Vital signs are reviewed. General: No acute distress. AOx1. HEENT: Head exam is unremarkable. EOMI bilaterally. ACs patent. Nares patent. Lungs: Bilateral breath sounds present; no rhonchi, wheezes, or rales. Heart: Rate and rhythm are regular. S1-S2 present. No murmur/rub/gallops. Abdomen: Soft, mild LLQ tenderness to palpation, nondistended. Bowel sounds present. Extremities: No edema present. Symmetric movement. Psych: Normal affect and mood. Cooperative. Assessment/Plan: Acute on chronic hypoxic respiratory failure: Currently on 2 L nasal cannula, saturating 94% Pulmonology following Continue to wean as tolerated Ordered chest x-ray to rule out pulmonary edema Metabolic alkalosis: Started on Diamox 250 mg twice daily Continue to monitor bicarb Ordered one-time dose of 40 mill equivalents potassium p.o. Generalized weakness Frequent falls Consult PT/OT Neurology consulted -Hx of parkinsons with worsening tremors and gait dysfunction Primidone was recently increased on an outpatient basis. -Hx cervical spinal stenosis at the level of C3 4 and C4 5 Elevated d-dimer: Doppler shows normal flow, compressibility, vascular waveforms bilaterally. Chronic kidney disease stage IIIb: Creatinine 2.72 slightly worsened compared to baseline of 1.5-2 Elevated troponins, unlikely ACS Paroxysmal atrial fibrillation: Continue Eliquis Diabetes mellitus type 2 Monitor glucose Insulin sliding scale -Hypothyroidism -Hypertension -Chronic heart failure systolic dysfunction with reduced EF no acute exacerbation PT OT consulted -Hx of rheumatoid arthritis DVT prophylaxis: Eliquis The patient is admitted with an anticipated less than than 2 midnight stay for evaluation of generalized weakness CODE STATUS: Full code Dr. Roberto MD I have performed a history and physical examination and medical decision making of this patient, discussed the same with the the resident, and agree with the assessment and plan as written. I performed brief physical exam. Objective - Vital Signs Vital signs: Vital Signs Temp 98.3 F 06/07/24 04:00 Pulse 56 L 06/07/24 04:00 Resp 16 06/07/24 04:00 BP 133/82 06/07/24 04:00 Pulse Ox 94 L 06/07/24 04:00 FiO2 Intake & Output 06/06/24 06/07/24 06/07/24 18:59 06:59 18:59 Intake Total 218 540 Output Total 100 500 Balance 118 40 Weight 95.5 kg Intake: Oral 218 540 Output: Urine 100 500 Other: Voiding Method External Catheter External Catheter # Voids 1 - Labs CBC & Chem 7: 06/03/24 13:00 06/07/24 07:35
[2024-06-07] MEDS: POTASSIUM CHLORIDE ER 20 MEQ TAB.ER PO STA (12:43)
[2024-06-07] MEDS ORDERED: guaiFENesin SYRUP 100MG/5ML 200 MG/10 ML CUP PO PRN (13:05)
--- NOTE | 2024-06-07 13:23 | P.PN ---
Subjective Progress Note Date: 06/06/24 Patient was seen for a follow-up. Patient's daughter was also present, who had a lot of questions. Patient's daughter mentions that patient follows up with Dr. Lynn. She referred him to a movement disorder specialist Dr. Gonsalez at [facility] in [facility], and was seen on 05/29/2024. Dr. Gonsalez did not feel patient was a good candidate for cervical decompression because of her history of head tremors which would be difficulty with healing. They did recommend to increase primidone from 50 mg, 1-1/2 tablet twice daily to 2 tablets twice daily. This was implemented on 05/30/2024. Patient hospitalized on 06/03/2024, uncertain if it was related to side effects of primidone. However patient's daughter believes that she has been not feeling well even before she started Mysoline at a higher dose. On Tuesday patient was quite confused, delirious thinking that her son-in-law was her grandson. It is uncertain why patient was hospitalized, and her oxygen was so low. Patient has been seen by broadcast chief engineer, and everything is felt fine. Patient does have CHF. Objective - Vital Signs Vital signs: Vital Signs Temp 97.9 F 06/06/24 16:21 Pulse 61 06/06/24 16:21 Resp 15 06/06/24 16:21 BP 126/69 06/06/24 16:21 Pulse Ox 96 06/06/24 16:21 FiO2 Intake & Output 06/05/24 06/06/24 06/06/24 18:59 06:59 18:59 Intake Total 218 Output Total 275 100 Balance -275 118 Weight 95 kg Intake: Oral 218 Output: Urine 275 100 Other: Voiding Method External Catheter External Catheter External Catheter # Voids 1 - Exam Patient is slightly groggy, but does wake up, and answers appropriately. She has slow voice. She keeps her mouth open. Her tone is completely normal in the arms bilaterally. No tremors at rest noted in the extremities. She does have near constant head tremor. Rest of the examination is unchanged. - Labs CBC & Chem 7: 06/03/24 13:00 06/07/24 07:35 Labs: Abnormal Lab Results - Last 24 Hours (Table) 06/06/24 Range/Units 06:10 Carbon Dioxide 35 H (22-30) mmol/L BUN 55 H (7-17) mg/dL Creatinine 2.41 H (0.52-1.04) mg/dL Glucose 142 H (74-99) mg/dL Assessment and Plan Assessment: * 78-year-old female with history of Parkinson's disease, came with a few days history of worsening tremors, worsening mobility, and frequent falls. No evidence of worsening of Parkinson's at this point. * History of cervical spinal stenosis, severe at C3 4 and C4 5 levels causing myelomalacia and cord signal changes. This may be contributing to the weakne ss and falls. Previously orthopedic surgery had recommended medical management. * Chronic renal insufficiency * Congestive heart failure * History of atrial fibrillation, on Eliquis. * Hypothyroidism * Diabetes * Hyperlipidemia * Hypertension * Rheumatoid arthritis Plan: * Continue same dose of Sinemet 25/100 3 times daily. Previously patient had increased dose of Sinemet to 25/100 4 times daily and symptoms got worse. Her Parkinson's is fairly well-controlled. * Patient's daughter mentions that patient follows up with Dr. Lynn. Dr. Lynn referred her to a movement disorder specialist Dr. Gonsalez at [facility] in [facility], and was seen on 05/29/2024. Dr. Gonsalez did not feel patient was a good candidate for cervical decompression because of her history of head tremors which would be difficulty with healing. They did recommend to increase primidone from 50 mg, 1-1/2 tablet twice daily to 2 tablets twice daily. This was implemented on 05/30/2024. Patient hospitalized at this time on 06/03/2024, uncertain if it was related to side effects of prim idone. However patient's daughter believes that she has been not feeling well even before she started Mysoline at a higher dose. On Tuesday patient was quite confused, delirious thinking that her son-in-law was her grandson. Continue primidone 100 mg twice daily. * I suspect generalized weakness, mental confusion are multifactorial. With her history of significant CHF, chronic CO2 retainer (around 58), hypoxemia (pO2 67, saturation 94%), Parkinson's, cervical myelopathy, medications are all con tributing to her intermittent weakness, confusion. * Continue Eliquis 5 mg twice daily. * Continue vitamin B12 1000 mcg orally daily. * PT, OT evaluate gait. * Evaluation of any other comorbid medical condition, as per IM. * Neurologically clear. Follow-up with her neurologist and perhaps also movement disorder specialist Dr. Gonsalez at [facility].
--- NOTE | 2024-06-07 15:32 | XR ---
EXAMINATION TYPE: XR chest 1V portable DATE OF EXAM: 06/07/2024 2:22 PM CLINICAL INDICATION: Female, 78 years old with history of rule out pulmonary edema/ continued oxygen req; [facility] COMPARISON: Chest radiographs from 06/03/2024 TECHNIQUE: XR chest 1V portable Frontal view of the chest. FINDINGS: Lungs/Pleura: No evidence of focal consolidation or pneumothorax. Blunting of the costophrenic angles is present. Pulmonary vascularity: Pulmonary vascular congestion. Heart/mediastinum: Cardiomediastinal silhouette is enlarged. Musculoskeletal: No acute osseous pathology. IMPRESSION: Cardiomegaly, pulmonary vascular congestion and bilateral pleural effusions. Correlate with BNP for c ongestive heart failure. [facility], , 06/07/2024 3:29 PM
--- NOTE | 2024-06-07 16:34 | P.PN ---
Subjective Progress Note Date: 06/07/24 Patient is a 78-year-old white female with past medical history significant for frequent falls, Parkinson's disease, hypertension, hyperlipidemia, diabetes mellitus, hypothyroidism, chronic kidney disease, atrial fibrillation, among other things. Patient is a poor historian, and is also hard of hearing. Apparently, presents to the emergency department yesterday afternoon with increased generalized weakness and fatigue. Has had reduced oral intake. Reportedly, fell in the shower a "couple days ago". She does have minimal bruising and an abrasion on her left thoracic level back. No deformities or crepitus. Denies has hitting her head. Denies losing consciousness. Brain CT of the brain without contrast did not show any acute intracranial process. Apparently, patient could not get up out of bed yesterday, and was sent into the emergency department for evaluation. She was noted to be hypoxic, on room air, in the emergency department. For this reason, we were consulted. She is currently resting comfortably in bed. She is on 3 L/min nasal cannula. SPO2 99%. She reportedly wears 2 L home O2 at bedtime while at home. Denies any history of pre-existing lung disease such as COPD or asthma. She does not smoke cigarettes. Denies any infectious-like symptoms. No fever, cough, sputum pr oduction chest pain. Denies sick contacts. She denies history of heart failure. Denies chest pain. Denies increase in lower extremity swelling. Most recent available echocardiogram from 09/15/2023 showing mild LV dysfunction with an estimated ejection fraction of 45 to 50%. She was previously maintained on Bumex, which may have been stopped on her previous hospitalization in March,. Chest x-ray showing low lung volumes with hypoventilatory changes and possible mild venous congestion.. No focal consolidations, sizable pleural effusions, or visible pneumothoraces. CBC: WBC count 10.4, hemoglobin 11.6, hematocrit 36.6, platelets 208. CMP: Sodium 141, potassium 3.6, chloride 103, s zackary bicarb 37, BUN 56, creatinine 2.72, glucose 154. LFTs unremarkable. Troponins elevated at 0.051, 0.069, and 0.064 respectively. NT proBNP 1060. Negative for influenza, RSV, COVID. ABG done earlier which showed a PaO2 of 52, pCO2 of 58, pH of 7.44. This is done on 2 L supplemental oxygen. Again, patient is in no respiratory distress. She is resting comfortably in bed. Her primary complaint is some thoracic level back pain from her fall. The patient is seen today June 05, 2024 in follow-up on the selective care unit. She is currently resting in bed. She is awake but drowsy at times. Currently maintaining O2 saturations up to 100% on 5 L high flow nasal cannula. Sodium 143. Potassium 3.7. Bicarb 35. BUN 51. Creatinine 2.49. Glucose 160. Arterial blood gases revealed a PaO2 of 67, pCO2 of 59 and a pH of 7.44 on 28% FiO2. Dopplers of the lower extremity were negative for DVT. She remains anticoagulated with Eliquis. The patient is seen today June 06, 2024 in follow-up on the selective care unit. She is currently sitting up in a chair. More awake and alert today. Denies any worsening shortness of breath, cough or congestion. She is maintaining O2 saturations in the 90s on 2 L/min per nasal cannula. Sodium 140. Potassium 3.8. Bicarb 35. BUN 55. Creatinine 2.41. Glucose 142. She has been initiated on Diamox. Anticoagulated with Eliquis. The patient is seen today June 07, 2024 in follow-up on the selective care unit. She is currently resting in bed. Awake and alert in no acute distress. Chest x-ray continues to show cardiomegaly, pulmonary vascular congestion and bilateral pleural effusions. She is maintaining good O2 saturations in the high 90s on 1 L/min per nasal cannula. She is afebrile. Hemodynamically stable. He remains on Diamox. Anticoagulated with Eliquis. Sodium 141. Potassium 3.8. Bicarb 39. BUN 50. Creatinine 2.51. Glucose 155. Objective - Vital Signs Vital signs: Vital Signs Temp 98.2 F 06/07/24 12:00 Pulse 61 06/07/24 15:15 Resp 16 06/07/24 15:15 BP 147/71 06/07/24 15:15 Pulse Ox 96 06/07/24 15:15 FiO2 Intake & Output 06/06/24 06/07/24 06/07/24 18:59 06:59 18:59 Intake Total 218 540 240 Output Total 100 500 250 Balance 118 40 -10 Weight 95.5 kg Intake: Oral 218 540 240 Output: Urine 100 500 250 Other: Voiding Method External Catheter External Catheter External Catheter # Voids 1 - Exam GENERAL EXAM: Alert, 78-year-old female, resting in bed, on 1 L nasal cannula, in no apparent distress, generalized resting tremor. HEAD: Normocephalic and atraumatic EYES: Normal reaction of pupils, equal size, visual vanessa intact, no nystagmus. NOSE: Clear with pink turbinates. THROAT: No erythema or exudates. NECK: No masses, no JVD. CHEST: No chest wall deformity. LUNGS: Equal air entry with no crackles, wheeze, rhonchi or dullness. CVS: S1 and S2 normal with no audible murmur, regular rhythm. No extra heart sounds ABDOMEN: No hepatosplenomegaly, active bowel sounds, no guarding or rigidity. SPINE: No scoliosis or deformity. Left lateral thoracic level back abrasion and bruising/ecchymosis. No subcutaneous emphysema or crepitus SKIN: No rashes CENTRAL NERVOUS SYSTEM: Alert and oriented x 3, left facial droop, bilateral upper extremities resting tremor, tone is normal in all 4 extremities, without u nilateral weakness. EXTREMITIES: There is no peripheral edema, clubbing, or cyanosis. Peripheral pu lses are intact. - Labs CBC & Chem 7: 06/03/24 13:00 06/07/24 07:35 Labs: Abnormal Lab Results - Last 24 Hours (Table) 06/07/24 Range/Units 07:35 Carbon Dioxide 39 H (22-30) mmol/L BUN 50 H (7-17) mg/dL Creatinine 2.51 H (0.52-1.04) mg/dL Glucose 155 H (74-99) mg/dL Assessment and Plan Assessment: Acute on chronic hypoxemic respiratory failure, currently on 1 L/min nasal cannula. Chest x-ray continues to show cardiomegaly and mild pulmonary vascular congestion with small pleural effusions. The patient has low lung volumes. She has shallow respirations Acute on chronic kidney disease, creatinine slightly worse than baseline Generalized weakness Frequent falls History of Parkinson's disease Elevated troponins, flat and not consistent with ACS History of paroxysmal atrial fibrillation, currently normal sinus rhythm, chronically anticoagulated on Eliquis History of heart failure with reduced ejection fraction, most recent available echocardiogram from September, showing improved left ventricular ejection fraction of 45 to 50%. History of hypertension History of hyperlipidemia Diabetes mellitus, insulin-dependent Hypothyroidism History of rheumatoid arthritis History of cervical spine stenosis History of right femur fracture Obesity, with a BMI of 35.5 kg/m Hard of hearing Plan: The patient was seen and evaluated Chest x-ray, labs and medications reviewed Continue to titrate the FiO2 as tolerated Currently on 1 L/min per nasal cannula Remains on Diamox Subacute rehab possibly at [facility] at discharge I have personally seen and examined the patient, performed the documentation and the assessment and plan as written. Number of minutes spent on the visit: 10.
[2024-06-07] MEDS: ACETAMINOPHEN TAB 325 MG TAB PO PRN (17:17)
[2024-06-08] MEDS: INSULIN DETEMIR (LEVEMIR) 100 UNIT/ML SYR SQ SCH (06:24)
[2024-06-08 06:57] LABS: African American GFR (CKD) 21 (>60 ml/min/1.73 sqM); Anion Gap 3 mmol/L; Blood Urea Nitrogen 48 mg/dL (7-17); Calcium 8.8 mg/dL (8.4-10.2); Carbon Dioxide 31 mmol/L (22-30); Chloride 105 mmol/L (98-107); Glucose 154 mg/dL (74-99); Non-African American GFR(CKD) 18 (>60 ml/min/1.73 sqM); Potassium 3.9 mmol/L (3.5-5.1); Sodium 139 mmol/L (137-145)
[2024-06-08 10:34] VITALS: RESP 18; TEMP 98.2
--- NOTE | 2024-06-08 13:14 | P.DS ---
Providers Date of admission: 06/03/24 16:31 Attending physician: Aron James MD Consults: 06/03/24 16:31 Consult Physician Routine Consulting Provider: Ezequiel Phillips Consult Reason/Comments: weakness Do you want consulting provider notified?: Yes Consult Physician Urgent Consulting Provider: Rodolfo Shaffer Consult Reason/Comments: hypoxia Do you want consulting provider notified?: Already Contacted Primary care physician: [facility] Course: Discharge Diagnosis: Acute on chronic hypoxic respiratory failure Metabolic alkalosis History of Parkinson's with worsening tremors and gait dysfunction Elevated D-dimer CKD stage IIIb Elevated troponins, unlikely ACS Proximal atrial fibrillation Diabetes mellitus type 2 Hypothyroidism Hypertension Chronic heart failure systolic dysfunction with reduced EF no acute exacerbation Rheumatoid arthritis Hospital Course: Patient is 78-year-old female with past medical history significant for hypertension, diabetes mellitus type 2, atrial fibrillation maintained on Eliquis, chronic kidney disease, hypothyroidism, hyperlipidemia, and Parkinson's who presents with fatigue and weakness for about a week that worsened yesterday to the point she couldn't get out of bed. All history provided by daughter and son-in-law. States that she has a history of falls due to weakness/losing balance but denies syncope or loss of consciousness. They endorse decreased oral intake. They note that her dose of primidone was increased on Tuesday. Tuesday night they called EMS to help her up from the floor after she lost her balance and fell and they noted her O2 saturation to be low and recommended increasing her usual nighttime oxygen from 2L to 3L. There is no focal weakness. She was found to have elevated troponin x3: 0.051, 0.069, 0.064, respectively but she is denying chest pain. Due to her hypoxic status pulmonology was consulted. EKG showed normal sinus rhythm. Brain CT negative. Chest x-ray: Low lung volume exam with hypoventilatory changes, no acute findings. Troponoin x 3 0.051, 0.069, 0.064. WBCs 10.4, hemoglobin 11.6, sodium 141, potassium 3.6, CO2 37, BUN 56, creatinine 2.72, calcium 10.8, NT proBNP 1060. A BG: pH 7.44, pCO2 58, pO2 52, HCO3 39. Urinalysis negative. Afebrile, hypertensive in the 160s initially, 72% saturation on room air then 97% on 4 L nasal cannula. While admitted patient received oxygen, initially on 4 L which was then titrated down to 1 L on day of discharge. Patient was found to have an elevated bicarb and metabolic alkalosis and was started on Diamox which led to a decrease in bicarb and improvement in metabolic alkalosis. Patient was also found to have back pain during her stay which was treated with acetaminophen 650 mg p.o. every 4 hours as needed. Patient had elevated D-dimer on admission and a ultrasound venous Doppler duplex lower extremity bilateral was performed which showed normal flow, compressibility, vascular waveforms in the deep veins of the lower extremities bilaterally. Patient is hemodynamically stable and medically cleared for discharge to [facility] for subacute rehab. Patient is advised to follow-up with her PCP. Pt seen and examined at bedside: No significant overnight events. Patient reports her previous back pain is under control now. Vital signs reveiwed and stable: General: non toxic, no distress, appears at stated age, normal weight Derm: no unusual rashes/lesions, warm Head: atraumatic, normocephalic, symmetric Eyes: EOMI, no lid lag, anicteric sclera, pupils equal round reactive to light ENT: Nose and ears atraumatic Neck: No cervical lymphadenopathy, trachea midline, supple Mouth: no lip lesion, mucus membranes moist Cardiovascular: S1S2 reg, no murmur, positive dorsalis pedis pulse bilateral, no edema Lungs: Decreased air entry bilaterally, no rhonchi, no rales, no accessory muscle use Abdominal: soft, nontender to palpation, no guarding Ext: muscle strength 5 out of 5 in all 4 extremities grossly, no gross muscle atrophy, no contractures, Neuro: CN II-XI 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, no gross focal neuro deficits A total of [] minutes were spent preparing this complex discarge summary. Patient was discharged on []. Plan - Discharge Summary New Discharge Prescriptions: Continue Simvastatin [Zocor] 20 mg PO HS Primidone 100 mg PO BID Escitalopram Oxalate [Lexapro] 10 mg PO DAILY Levothyroxine Sodium [Synthroid] 75 mcg PO AC-BRKFST Losartan Potassium 50 mg PO DAILY Nitroglycerin Sl Tabs [Nitrostat] 0.4 mg SUBLINGUAL Q5M PRN PRN Reason: Chest Pain Docusate [Colace] 100 mg PO BID Cyanocobalamin (Vitamin B-12) [Vitamin B-12] 1,000 mcg PO DAILY Simethicone 180 mg PO ACHS PRN PRN Reason: gas/bloating Metoprolol Succinate (ER) [Toprol XL] 50 mg PO BID tab Baclofen 5 mg PO DAILY PRN PRN Reason: Muscle Spasm Bumetanide [BUMEX] 2 mg PO BID Denosumab [Prolia] 60 mg SQ Q180D busPIRone HCl [Buspar] 5 mg PO DAILY allopurinoL [Zyloprim] 300 mg PO DAILY Apixaban [Eliquis] 5 mg PO BID tab Carbidopa-Levodopa 25-100 mg [Sinemet 25-100 mg] 1 tab PO TID-W/MEALS polyethylene glycoL 3350 [Miralax] 17 gm PO DAILY PRN PRN Reason: Constipation Acetaminophen Tab [Tylenol] 500 mg PO Q6H PRN PRN Reason: Pain Or Fever > 100.5 Amiodarone [Cordarone] 100 mg PO DAILY Calcium Carbonate [Calcium] 600 mg PO DAILY@1400 Insulin Lispro [humaLOG Kwikpen] 12 - 15 unit SQ AC-TID Potassium Chloride ER [K-Dur 20] 20 meq PO DAILY Insulin Glargine,Hum.rec.anlog [Lantus Solostar Pen] 40 units SQ AC-BRKFST Insulin Glargine,Hum.rec.anlog [Lantus Solostar Pen] 20 units SQ HS PRN PRN Reason: IF blood sugar is >300 Discharge Medication List Simvastatin [Zocor] 20 mg PO HS 07/18/14 [History] Primidone 100 mg PO BID 07/23/22 [History] allopurinoL [Zyloprim] 300 mg PO DAILY 07/23/22 [History] busPIRone HCl [Buspar] 5 mg PO DAILY 07/23/22 [History] Apixaban [Eliquis] 5 mg PO BID tab 08/04/22 [Rx] Carbidopa-Levodopa 25-100 mg [Sinemet 25-100 mg] 1 tab PO TID-W/MEALS 09/14/23 [History] Escitalopram Oxalate [Lexapro] 10 mg PO DAILY 09/14/23 [History] Cyanocobalamin (Vitamin B-12) [Vitamin B-12] 1,000 mcg PO DAILY 02/27/24 [History] Docusate [Colace] 100 mg PO BID 02/27/24 [History] Levothyroxine Sodium [Synthroid] 75 mcg PO AC-BRKFST 02/27/24 [History] Losartan Potassium 50 mg PO DAILY 02/27/24 [History] Nitroglycerin Sl Tabs [Nitrostat] 0.4 mg SUBLINGUAL Q5M PRN 02/27/24 [History] Simethicone 180 mg PO ACHS PRN 02/27/24 [History] polyethylene glycoL 3350 [Miralax] 17 gm PO DAILY PRN 02/27/24 [History] Metoprolol Succinate (ER) [Toprol XL] 50 mg PO BID tab 03/05/24 [Rx] Acetaminophen Tab [Tylenol] 500 mg PO Q6H PRN 06/03/24 [History] Amiodarone [Cordarone] 100 mg PO DAILY 06/03/24 [History] Baclofen 5 mg PO DAILY PRN 06/03/24 [History] Bumetanide [BUMEX] 2 mg PO BID 06/03/24 [History] Calcium Carbonate [Calcium] 600 mg PO DAILY@1400 06/03/24 [History] Denosumab [Prolia] 60 mg SQ Q180D 06/03/24 [History] Insulin Glargine,Hum.rec.anlog [Lantus Solostar Pen] 20 units SQ HS PRN 06/03/24 [History] Insulin Glargine,Hum.rec.anlog [Lantus Solostar Pen] 40 units SQ AC-BRKFST 06/03/24 [History] Insulin Lispro [humaLOG Kwikpen] 12 - 15 unit SQ AC-TID 06/03/24 [History] Potassium Chloride ER [K-Dur 20] 20 meq PO DAILY 06/03/24 [History] Follow up Appointment(s)/Referral(s): Alberto Lehman DO [Primary Care Provider] - 1-2 days Discharge Disposition: TRANSFER TO SNF/ECF
[2024-06-08 14:02] VITALS: BP 148/77; PULSE 61
[2024-06-08 14:23] VITALS: BMI 34.0
[2024-06-08 15:02] LABS: Glucose,Whole Blood 210 mg/dL (70-110)
[2024-06-08 15:03] LABS: Glucose,Whole Blood 157 mg/dL (70-110)
[2024-06-08 15:03] LABS: Glucose,Whole Blood 227 mg/dL (70-110)
[2024-06-08 15:03] LABS: Glucose,Whole Blood 225 mg/dL (70-110)
[2024-06-08 15:03] LABS: Glucose,Whole Blood 154 mg/dL (70-110)
[2024-06-08 15:03] LABS: Glucose,Whole Blood 219 mg/dL (70-110)
[2024-06-08 15:03] LABS: Glucose,Whole Blood 129 mg/dL (70-110)
[2024-06-08 15:03] LABS: Glucose,Whole Blood 214 mg/dL (70-110)
[2024-06-08 15:03] LABS: Glucose,Whole Blood 192 mg/dL (70-110)
[2024-06-08 15:03] LABS: Glucose,Whole Blood 230 mg/dL (70-110)
[2024-06-08 15:03] LABS: Glucose,Whole Blood 139 mg/dL (70-110)
[2024-06-08 15:04] LABS: Glucose,Whole Blood 150 mg/dL (70-110)
[2024-06-08 15:04] LABS: Glucose,Whole Blood 137 mg/dL (70-110)
[2024-06-08 15:04] LABS: Glucose,Whole Blood 117 mg/dL (70-110)
[2024-06-08 15:04] LABS: Glucose,Whole Blood 236 mg/dL (70-110)
[2024-06-08 15:04] LABS: Glucose,Whole Blood 160 mg/dL (70-110)
[2024-06-08 15:04] LABS: Glucose,Whole Blood 222 mg/dL (70-110)
[2024-06-08 15:04] LABS: Glucose,Whole Blood 157 mg/dL (70-110)
[2024-06-08 15:05] LABS: Glucose,Whole Blood 148 mg/dL (70-110)
[2024-06-08 15:05] LABS: Glucose,Whole Blood 93 mg/dL (70-110)
[2024-06-08 15:05] LABS: Glucose,Whole Blood 176 mg/dL (70-110)
--- NOTE | 2024-06-08 15:08 | P.PN ---
Subjective Progress Note Date: 06/08/24 Principal diagnosis: Acute on chronic hypoxic and hypercapnic respiratory failure Patient is a 78-year-old white female with past medical history significant for frequent falls, Parkinson's disease, hypertension, hyperlipidemia, diabetes mellitus, hypothyroidism, chronic kidney disease, atrial fibrillation, among other things. Patient is a poor historian, and is also hard of hearing. Apparently, presents to the emergency department yesterday afternoon with increased generalized weakness and fatigue. Has had reduced oral intake. Reportedly, fell in the shower a "couple days ago". She does have minimal bruising and an abrasion on her left thoracic level back. No deformities or crepitus. Denies has hitting her head. Denies losing consciousness. Brain CT of the brain without contrast did not show any acute intracranial process. Apparently, patient could not get up out of bed yesterday, and was sent into the emergency department for evaluation. She was noted to be hypoxic, on room air, in the emergency department. For this reason, we were consulted. She is c urrently resting comfortably in bed. She is on 3 L/min nasal cannula. SPO2 99%. She reportedly wears 2 L home O2 at bedtime while at home. Denies any history of pre-existing lung disease such as COPD or asthma. She does not smoke cigarettes. Denies any infectious-like symptoms. No fever, cough, sputum production chest pain. Denies sick contacts. She denies history of heart failure. Denies chest pain. Denies increase in lower extremity swelling. Most recent available echocardiogram from 09/15/2023 showing mild LV dysfunction with an estimated ejection fraction of 45 to 50%. She was previously maintained on Bumex, which may have been stopped on her previous hospitalization in March,. Chest x-ray showing low lung volumes with hypoventilatory changes and possible mild venous congestion.. No focal consolidations, sizable pleural effusions, or visible pneumothoraces. CBC: WBC count 10.4, hemoglobin 11.6, hematocrit 36.6, platelets 208. CMP: Sodium 141, potassium 3.6, chloride 103, serum bicarb 37, BUN 56, creatinine 2.72, glucose 154. LFTs unremarkable. Troponins elevated at 0.051, 0.069, and 0.064 respectively. NT proBNP 1060. Negative for influenza, RSV, COVID. ABG done earlier which showed a PaO2 of 52, pCO2 of 58, pH of 7.44. This is done on 2 L supplemental oxygen. Again, patient is in no respiratory distress. She is resting comfortably in bed. Her primary complaint is some thoracic level back pain from her fall. The patient is seen today June 05, 2024 in follow-up on the selective care unit. She is currently resting in bed. She is awake but drowsy at times. Currently maintaining O2 saturations up to 100% on 5 L high flow nasal cannula. Sodium 143. Potassium 3.7. Bicarb 35. BUN 51. Creatinine 2.49. Glucose 160. Arterial blood gases revealed a PaO2 of 67, pCO2 of 59 and a pH of 7.44 on 28% FiO2. Dopplers of the lower extremity were negative for DVT. She remains anticoagulated with Eliquis. The patient is seen today June 06, 2024 in follow-up on the selective care unit. She is currently sitting up in a chair. More awake and alert today. Denies any worsening shortness of breath, cough or congestion. She is maintaining O2 saturations in the 90s on 2 L/min per nasal cannula. Sodium 140. Potassium 3.8. Bicarb 35. BUN 55. Creatinine 2.41. Glucose 142. She has been initiated on Diamox. Anticoagulated with Eliquis. The patient is seen today June 07, 2024 in follow-up on the selective care unit. She is currently resting in bed. Awake and alert in no acute distress. Chest x-ray continues to show cardiomegaly, pulmonary vascular congestion and bilateral pleural effusions. She is maintaining good O2 saturations in the high 90s on 1 L/min per nasal cannula. She is afebrile. Hemodynamically stable. He remains on Diamox. Anticoagulated with Eliquis. Sodium 141. Potassium 3.8. Bicarb 39. BUN 50. Creatinine 2.51. Glucose 155. Patient was seen and examined today on 06/08/2024, patient is doing well on 1 L nasal cannula, does not seem to be in any distress, however the patient continues to have shallow breathing, patient is mostly bedbound, but does not seem to be in any distress. Follow-up chest x-ray yesterday continues to show low lung volumes and bibasilar atelectasis Objective - Vital Signs Vital signs: Vital Signs Temp 98.2 F 06/08/24 12:00 Pulse 61 06/08/24 12:00 Resp 18 06/08/24 14:00 BP 148/77 06/08/24 12:00 Pulse Ox 96 06/08/24 12:00 FiO2 Intake & Output 06/07/24 06/08/24 06/08/24 18:59 06:59 18:59 Intake Total 240 480 Output Total 450 Balance -210 480 Weight 95.5 kg 95.5 kg Intake: Oral 240 480 Output: Urine 450 Other: Voiding Method External Catheter External Catheter External Catheter # Voids 1 # Bowel Movements 1 - Exam GENERAL EXAM: Alert, 78-year-old female, obese, not in distress, on 1 L nasal cannula HEAD: Normocephalic and atraumatic EYES: Normal reaction of pupils, equal size, visual vanessa intact, no nystagmus. NOSE: Clear with pink turbinates. THROAT: No erythema or exudates. NECK: No masses, no JVD. CHEST: No chest wall deformity. LUNGS: Diminished breath sounds at the bases patient has very shallow breathing CVS: S1 and S2 normal with no audible murmur, regular rhythm. No extra heart sounds ABDOMEN: No hepatosplenomegaly, active bowel sounds, no guarding or rigidity. SKIN: No rashes CENTRAL NERVOUS SYSTEM: Alert and oriented x 3, left facial droop, bilateral upper extremities resting tremor, tone is normal in all 4 extremities, without unilateral weakness. EXTREMITIES: trace of bipedal edema no clubbing or cyanosis - Labs CBC & Chem 7: 06/03/24 13:00 06/08/24 06:17 Labs: Abnormal Lab Results - Last 24 Hours (Table) 06/06/24 06/06/24 06/06/24 Range/Units 06:33 11:42 17:14 Carbon Dioxide (22-30) mmol/L BUN (7-17) mg/dL Creatinine (0.52-1.04) mg/dL Glucose (74-99) mg/dL POC Glucose (mg/dL) 129 H 225 H 214 H (70-110) mg/dL 06/06/24 06/06/24 06/07/24 Range/Units 19:57 20:41 05:58 Carbon Dioxide (22-30) mmol/L BUN (7-17) mg/dL Creatinine (0.52-1.04) mg/dL Glucose (74-99) mg/dL POC Glucose (mg/dL) 227 H 192 H 139 H (70-110) mg/dL 06/07/24 06/07/24 06/07/24 Range/Units 11:23 16:36 20:18 Carbon Dioxide (22-30) mmol/L BUN (7-17) mg/dL Creatinine (0.52-1.04) mg/dL Glucose (74-99) mg/dL POC Glucose (mg/dL) 219 H 210 H 154 H (70-110) mg/dL 06/08/24 06/08/24 06/08/24 Range/Units 06:06 06:17 11:20 Carbon Dioxide 31 H (22-30) mmol/L BUN 48 H (7-17) mg/dL Creatinine 2.51 H (0.52-1.04) mg/dL Glucose 154 H (74-99) mg/dL POC Glucose (mg/dL) 157 H 230 H (70-110) mg/dL Assessment and Plan Assessment: Impression Acute on chronic hypoxemic and hypercapnic respiratory failure, currently on 1 L/min nasal cannula. Chest x-ray continues to show cardiomegaly and mild pulmonary vascular congestion with small pleural effusions. The patient has low lung volumes. She has shallow respirations Acute on chronic kidney disease, creatinine slightly worse than baseline Generalized weakness Frequent falls History of Parkinson's disease Elevated troponins, flat and not consistent with ACS History of paroxysmal atrial fibrillation, currently normal sinus rhythm, chronically anticoagulated on Eliquis History of heart failure with reduced ejection fraction, most recent available echocardiogram from September, showing improved left ventricular ejection fraction of 45 to 50%. History of hypertension History of hyperlipidemia Diabetes mellitus, insulin-dependent Hypothyroidism History of rheumatoid arthritis History of cervical spine stenosis History of right femur fracture Obesity, with a BMI of 35.5 kg/m Hard of hearing Recommendation: Continue present supportive care measures Continue oxygen at 1 L/min, titrate to O2 saturation around 90% Consider discharge planning, rehab/ECF Continue Diamox seems to be helping her metabolic alkalosis. Will clear for discharge if cleared by other consultants Time with Patient: Less than 30
== END 2024-06-08 16:34 | DRG 189 ==
LOC: EC 12:48 → 3SCARD 16:31
PROVIDERS: ADMIT Internal Medicine; ATTEND Internal Medicine
DX: J96.21 Acute and chronic respiratory failure with hypoxia (principal); I50.22 Chronic systolic (congestive) heart failure; I13.0 Hypertensive heart and chronic kidney disease with heart failure and stage 1 through stage 4 chronic kidney disease, or unspecified chronic kidney disease; E66.2 Morbid (severe) obesity with alveolar hypoventilation; E87.4 Mixed disorder of acid-base balance; J98.11 Atelectasis; I48.0 Paroxysmal atrial fibrillation; Z79.01 Long term (current) use of anticoagulants; G20.A1 Parkinson's disease without dyskinesia, without mention of fluctuations; E78.5 Hyperlipidemia, unspecified; Z68.35 Body mass index [BMI] 35.0-35.9, adult; R29.6 Repeated falls; Z83.3 Family history of diabetes mellitus; Z91.81 History of falling; E03.9 Hypothyroidism, unspecified; E11.22 Type 2 diabetes mellitus with diabetic chronic kidney disease; M06.9 Rheumatoid arthritis, unspecified; N18.32 Chronic kidney disease, stage 3b; M48.02 Spinal stenosis, cervical region; J96.22 Acute and chronic respiratory failure with hypercapnia; R32 Unspecified urinary incontinence; Z79.4 Long term (current) use of insulin; Z79.890 Hormone replacement therapy; Z79.899 Other long term (current) drug therapy; Z87.442 Personal history of urinary calculi; Z90.710 Acquired absence of both cervix and uterus; R79.89 Other specified abnormal findings of blood chemistry; Z98.42 Cataract extraction status, left eye; Z98.41 Cataract extraction status, right eye; Z96.651 Presence of right artificial knee joint
CPT/HCPCS: 36415; 36600; 70450; 71045; 71046; 76857; 80048; 80053; 81001; 82805; 83605; 83735; 83880; 84100; 84439; 84443; 84481; 84484; 85025; 85379; 85610; 85730; 87636; 93005; 93970; 94760; 99285

== ENCOUNTER → 2024-07-11 | Outpatient (CLI) | payer MEDICARE ==
--- NOTE | 2024-07-11 13:21 | CT ---
EXAMINATION TYPE: CT abdomen wo con CT DLP: 831.4 mGycm, Automated exposure control for dose reduction was used. 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 TECHNIQUE: Standard CT of the abdomen following the administration of oral contrast. Examination du e to lack of intravenous contrast. Additional examination is limited due to beam hardening artifact f rom the patient's arms. Coronal and sagittal reformats were performed. FINDINGS: LOWER CHEST: Lung bases are relatively clear. Cardiomegaly. No pericardial effusion. Small coronary a rtery calcifications. ABDOMEN LIVER: Unremarkable noncontrast appearance GALLBLADDER AND BILE DUCTS: Unremarkable noncontrast appearance PANCREAS: Mild diffuse fatty infiltration. SPLEEN: Unremarkable noncontrast appearance ADRENAL GLANDS: Mild thickening of the right adrenal gland likely related to adrenal hyperplasia. Lef t adrenal gland demonstrates unremarkable noncontrast appearance. KIDNEYS AND URETERS: No evidence of hydronephrosis. Bilateral renal calcifications which may be vascu lar in origin. Cortical thinning of both kidneys. Lobulated appearance of both kidneys. Possible subt ly hypodense 1.7 cm lesion involving the superior pole the right kidney. Additional possible subtly h ypodense 1.8 cm lesion involving the superior pole of the left kidney. STOMACH AND BOWEL: Stomach and duodenum are unremarkable. Enteric contrast reaches the distal small b owel. No focal bowel wall thickening or surrounding inflammatory changes. Few scattered colonic diver ticula without evidence for acute diverticulitis. No evidence of bowel obstruction. PERITONEUM: No evidence of pneumoperitoneum or free fluid. VASCULATURE: Moderate atherosclerotic calcifications are present throughout the abdominal aorta and i ts branches. No evidence of aortic aneurysm. MUSCULOSKELETAL: Diffuse bone demineralization. Posterior left healing eighth and ninth ribs fracture . Moderate multilevel degenerative disc disease and facet arthropathy. LYMPH NODES: No gross evidence for lymphadenopathy. SOFT TISSUE/ABDOMINAL WALL: Unremarkable IMPRESSION: 1. No evidence for obstructive uropathy. Bilateral renal calcifications which may be vascular. Bilat eral possible superior pole hypodense lesions which may represent cysts versus other etiologies. Lack of intravenous contrast and beam hardening artifact from the patient's arms limits evaluation. Recom mend contrast enhanced CT or MR abdomen exam renal mass protocol if there is continued clinical eliza rn versus surveillance. 2. Findings of chronic medical renal disease bilaterally. 3. Posterior left healing eighth and ninth rib fractures. 4. Colonic diverticulosis without visualized acute diverticulitis. [facility], , 07/11/2024 1:18 PM
== END | disposition home or self-care (01) ==
LOC: RADCTMAIN 12:05
PROVIDERS: ATTEND Internal Medicine Geriatric Medicine
DX: S22.42XD Multiple fractures of ribs, left side, subsequent encounter for fracture with routine healing (principal); D17.71 Benign lipomatous neoplasm of kidney; K57.30 Diverticulosis of large intestine without perforation or abscess without bleeding; N28.89 Other specified disorders of kidney and ureter; K86.89 Other specified diseases of pancreas
CPT/HCPCS: 74150

== ENCOUNTER 2024-09-14 16:56 | Inpatient (IN) | payer MEDICARE ==
[2024-09-14] MEDS: SODIUM CHLORIDE 0.9% 1,000 ML IV ONE (17:49)
--- NOTE | 2024-09-14 18:06 | ED ---
Weakness HPI - General Chief complaint: Weakness Stated complaint: Failure to Thrive,Abd Pain Time Seen by Provider: 09/14/24 17:00 Source: patient, family, EMS Mode of arrival: EMS Limitations: altered mental status (Appear to be mild delirium versus dementia) - History of Present Illness Initial comments: This patient is a 79-year-old woman who presents to evaluation for generalized weakness and fatigue. The patient is accompanied by daughter who does give much additional history. The patient having worsening generalized weakness over the past 3 days. Also decreased oral intake. Patient denies focal weakness. Denies pain, dyspnea, chest pain, MD Complaint: generalized weakness Onset/Timin -: days(s) Location: generalized Severity scale (1-10): 0 Consistency: constant Improves with: none Worsens with: none Context: history of similar Associated Symptoms: loss of appetite - Related Data Home Medications Medication Instructions Recorded Confirmed Primidone 75 mg PO BID 07/23/22 09/14/24 busPIRone HCl [Buspar] 5 mg PO BID 07/23/22 09/14/24 Carbidopa-Levodopa 25-100 mg 1 tab PO TID-W/MEALS 09/14/23 09/14/24 [Sinemet 25-100 mg] Escitalopram Oxalate [Lexapro] 10 mg PO DAILY 09/14/23 09/14/24 Cyanocobalamin (Vitamin B-12) 1,000 mcg PO DAILY 02/27/24 09/14/24 [Vitamin B-12] Docusate [Colace] 100 mg PO DAILY 02/27/24 09/14/24 Levothyroxine Sodium [Synthroid] 75 mcg PO AC-BRKFST 02/27/24 09/14/24 Nitroglycerin Sl Tabs [Nitrostat] 0.4 mg SUBLINGUAL Q5M PRN 02/27/24 09/14/24 Simethicone 180 mg PO ACHS PRN 02/27/24 09/14/24 polyethylene glycoL 3350 [Miralax] 17 gm PO DAILY PRN 02/27/24 09/14/24 Acetaminophen Tab [Tylenol] 500 mg PO Q6H PRN 06/03/24 09/14/24 Amiodarone [Cordarone] 100 mg PO DAILY 06/03/24 09/14/24 Denosumab [Prolia] 60 mg SQ Q180D 06/03/24 09/14/24 Potassium Chloride ER [K-Dur 20] 20 meq PO DAILY 06/03/24 09/14/24 Previous Rx's Medication Instructions Recorded Apixaban [Eliquis] 5 mg PO BID tab 08/04/22 Metoprolol Succinate (ER) [Toprol 50 mg PO BID tab 03/05/24 XL] Atorvastatin [Lipitor] 10 mg PO HS tab 09/21/24 Bumetanide [Bumex] 1 mg PO BID #60 tablet 09/21/24 Famotidine [Pepcid] 20 mg PO Q2D@0900 tab 09/21/24 INSULIN ASPART (NovoLOG) [NovoLOG 0 unit SQ ACHS each 09/21/24 (formulary)] Insulin Detemir (Levemir) [Levemir] 10 unit SQ BID@0700,2100 each 09/21/24 Mag Hydrox/Al Hydrox/Simeth 15 ml PO Q6HR PRN ml 09/21/24 [Maalox] QUEtiapine [SEROquel] 12.5 mg PO BID PRN tab 09/21/24 amLODIPine [Norvasc] 5 mg PO DAILY tab 09/21/24 Allergies Allergy/AdvReac Type Severity Reaction Status Date / Time gabapentin AdvReac Hallucinati Verified 09/14/24 18:03 ons Review of Systems ROS Statement: Those systems with pertinent positive or pertinent negative responses have been documented in the HPI. ROS Other: All systems not noted in ROS Statement are negative. Constitutional: Reports: weakness. Denies: fever, chills Eyes: Denies: vision change ENT: Denies: congestion Respiratory: Denies: cough, dyspnea Cardiovascular: Denies: chest pain, orthopnea, edema, syncope Gastrointestinal: Reports: nausea. Denies: abdominal pain, vomiting, diarrhea Genitourinary: Denies: dysuria, hematuria Musculoskeletal: Denies: back pain Skin: Denies: rash Neurological: Reports: confusion. Denies: headache, weakness, numbness, paresthesias Past Medical History Past Medical History: Heart Failure, Diabetes Mellitus, Hyperlipidemia, Hypertension, Pneumonia, Rheumatoid Arthritis (RA) Additional Past Medical History / Comment(s): tremors, renal lithiasis, hemorrhoids(sx done), "has had problems w/low magnesium.anemia. per spouse pt had past cancer "uterine or cervical-had hysterectomy". it was previously charted that pt had hx of ra and cfh spouse not able to verify this, History of Any Multi-Drug Resistant Organisms: ESBL Date of last positivie culture/infection: 09/15/23 MDRO Source:: URINE Past Surgical History: Appendectomy, Hysterectomy, Orthopedic Surgery, Tonsillectomy Additional Past Surgical History / Comment(s): rt total knee repalcement, cataracts, hemmorroidectomy, colonoscopy Past Anesthesia/Blood Transfusion Reactions: No Reported Reaction Additional Past Anesthesia/Blood Transfusion Reaction / Comment(s): per psouse- pt never receieved any blood Past Psychological History: No Psychological Hx Reported Smoking Status: Never smoker Past Alcohol Use History: None Reported Past Drug Use History: None Reported - Past Family History Mother Family Medical History: Diabetes Mellitus Father Additional Family Medical History / Comment(s): brain anuerysm General Exam Limitations: no limitations General appearance: in no apparent distress, other (Patient does appear somnolent but arouses to voice) Head exam: Present: atraumatic, normocephalic Eye exam: Present: normal appearance, PERRL, EOMI. Absent: scleral icterus, conjunctival injection ENT exam: Present: mucous membranes dry Neck exam: Present: normal inspection, full ROM. Absent: meningismus Respiratory exam: Present: normal lung sounds bilaterally. Absent: respiratory distress, wheezes, rales, rhonchi, stridor, accessory muscle use Cardiovascular Exam: Present: regular rate, normal rhythm, normal heart sounds. Absent: systolic murmur, diastolic murmur, rubs, gallop GI/Abdominal exam: Present: soft. Absent: distended, tenderness, guarding, rebound, mass Extremities exam: Present: normal inspection, normal capillary refill. Absent: pedal edema, calf tenderness Back exam: Present: normal inspection. Absent: CVA tenderness (R), CVA tenderness (L) Neurological exam: Present: alert, CN II-XII intact, other (Patient is unable to fully comply with neurologic exam. She does move all 4 extremities. She does follow one-step commands.). Absent: oriented X3 (Oriented to person and place did not know the date), motor sensory deficit Skin exam: Present: warm, dry, intact, normal color. Absent: rash Course Vital Signs 09/14/24 09/14/24 09/15/24 17:01 23:12 00:28 Temperature 97.6 F 97.6 F Pulse Rate 60 75 53 L Respiratory 18 16 18 Rate Blood Pressure 162/71 159/73 152/59 O2 Sat by Pulse 93 L 94 L 95 Oximetry EKG Findings - EKG Results: EKG: interpreted by JOSE DANIELD, sinus rhythm EKG shows: bradycardia (Rate 57 bpm) - Blocks, [place], Hypertrophy, ST Abn: QRS axis and voltage: left axis deviation (-30 to -90) (Borderline) Chamber hypertrophy or enlargement: only voltage criteria for left ventricular hypertrophy Medical Decision Making - Medical Decision Making Patient is 79-year-old woman here with Weakness fatigue and found to have degree of dehydration. The patient also has elevated troponin suspected due to the acute kidney injury. Second troponin stable. Empiric antibiotic pending cultures but no obvious infection. The patient had chest x-ray that I interpreted as negative for acute infiltrate, pneumothorax, congestive heart failure Was pt. sent in by a medical professional or institution (, PA, POWER STATION OPERATOR, urgent care, hospital, or fdc...) When possible be specific @ -[No] Did you speak to anyone other than the patient for history (EMS, parent, family, police, friend...)? What history was obtained from this source @ -[No] Did you review nursing and triage notes (agree or disagree)? Why? @ -[I reviewed and agree with nursing and triage notes] Were old charts reviewed (outside hosp., previous admission, EMS record, old EKG, old radiological studies, urgent care reports/EKG's, fdc records)? Report findings @ -[No old charts were reviewed] Differential Diagnosis (chest pain, altered mental status, abdominal pain women, abdominal pain men, vaginal bleeding, weakness, fever, dyspnea, syncope, headache, dizziness, GI bleed, back pain, seizure, CVA, palpatations, mental health, musculoskeletal)? @ -[Differential Weakness: Hypoglycemia, shock, sepsis, hyponatremia, anemia, infection, MN, ETOH, adverse medicine reaction, overdose, stroke, this is not meant to be an all-inclusive list. EKG interpreted by me (3pts min.). @ -[I interpreted as above] X-rays interpreted by me (1pt min.). @ -[I interpreted as above CT interpreted by me (1pt min.). @ -[I interpreted as above U/S interpreted by me (1pt. min.). @ -[None done] What testing was considered but not performed or refused? (CT, X-rays, U/S, labs)? Why? @ -[None] What meds were considered but not given or refused? Why? @ -[None] Did you discuss the management of the patient with other professionals (professionals i.e. , PA, POWER STATION OPERATOR, lab, RT, psych nurse, social studies teacher, hook tender, teacher, restoration officer, pillowcase folder)? Give summary @ -Case discussed with admitting physician and treatment recommendations incorporated Was smoking cessation discussed for >3mins.? @ -[No] Was critical care preformed (if so, how long)? @ -[No] Were there social determinants of health that impacted care today? How? (Homelessness, low income, unemployed, alcoholism, drug addiction, transportation, low edu. Level, literacy, decrease access to med. care, halfway, rehab)? @ -[No] Was there de-escalation of care discussed even if they declined (Discuss DNR or withdrawal of care, Hospice)? DNR status @ -[No] What co-morbidities impacted this encounter? (DM, HTN, Smoking, COPD, CAD, Cancer, CVA, ARF, Chemo, Hep., AIDS, mental health diagnosis, sleep apnea, morbid obesity)? @ -[None] Was patient admitted / discharged? Hospital course, mention meds given and route, prescriptions, significant lab abnormalities, going to OR and other pertinent info. @ -[Patient is a 79-year-old woman here with generalized weakness and worsening of dementia versus acute delirium. On the patient's workup the creatinine is elevated and she does appear to be dry consistent with degree of dehydration. Patient will be admitted for further fluids and evaluation. Undiagnosed new problem with uncertain prognosis? @ -[No] Drug Therapy requiring intensive monitoring for toxicity (Heparin, Nitro, Insulin, Cardizem)? @ -[No] Were any procedures done? @ -[No] Diagnosis/symptom? @ -[Generalized weakness Acute kidney injury suspected dehydration Elevated troponin Acute, or Chronic, or Acute on Chronic? @ -[Acute Uncomplicated (without systemic symptoms) or Complicated (systemic symptoms)? @ -[Uncomplicated Side effects of treatment? @ -[No] Exacerbation, Progression, or Severe Exacerbation? @ -[No] Poses a threat to life or bodily function? How? (Chest pain, USA, MN, pneumonia, PE, COPD, DKA, ARF, appy, cholecystitis, CVA, Diverticulitis, Homicidal, Suicidal, threat to staff... and all critical care pts) @ -[No] All treatments are based on ideal body weight as in ED triage - Lab Data Result diagrams: 09/21/24 05:01 09/21/24 05:01 Lab Results 09/14/24 09/14/24 09/14/24 Range/Units 17:34 17:34 17:34 WBC 8.2 (3.8-10.6) k/uL RBC 3.67 L (3.80-5.40) m/uL Hgb 11.4 (11.4-16.0) gm/dL Hct 35.6 (34.0-46.0) % MCV 97.0 (80.0-100.0) fL MCH 31.0 (25.0-35.0) pg MCHC 32.0 (31.0-37.0) g/dL RDW 13.4 (11.5-15.5) % Plt Count 261 (150-450) k/uL MPV 7.8 Neutrophils % 72 % Lymphocytes % 18 % Monocytes % 7 % Eosinophils % 1 % Basophils % 0 % Neutrophils # 5.9 (1.3-7.7) k/uL Lymphocytes # 1.5 (1.0-4.8) k/uL Monocytes # 0.6 (0-1.0) k/uL Eosinophils # 0.1 (0-0.7) k/uL Basophils # 0.0 (0-0.2) k/uL Hypochromasia Slight PT 10.7 (10.0-12.5) sec INR 1.0 (<1.2) APTT 24.3 (22.0-30.0) sec Sodium 142 (137-145) mmol/L Potassium 4.2 (3.5-5.1) mmol/L Chloride 97 L (98-107) mmol/L Carbon Dioxide 35 H (22-30) mmol/L Anion Gap 10 mmol/L BUN 58 H (7-17) mg/dL Creatinine 2.35 H (0.52-1.04) mg/dL Est GFR (CKD-EPI) (>=60) Est GFR (CKD-EPI)AfAm 22 (>60 ml/min/1.73 sqM) Est GFR (CKD-EPI)NonAf 19 (>60 ml/min/1.73 sqM) BUN/Creatinine Ratio (12.00-20.00) Ratio Glucose 98 (74-99) mg/dL POC Glucose (mg/dL) (70-110) mg/dL POC Glu Moisture Machine Tender ID Calcium 11.7 H (8.4-10.2) mg/dL Magnesium (1.5-2.4) mg/dL Total Bilirubin 0.3 (0.2-1.3) mg/dL AST 11 L (14-36) U/L ALT <6 (4-34) U/L Alkaline Phosphatase 56 (38-126) U/L Troponin I (0.000-0.034) ng/mL NT-Pro-B Natriuret Pep pg/mL Total Protein 6.1 L (6.3-8.2) g/dL Albumin 3.3 L (3.5-5.0) g/dL Urine Color Urine Appearance (Clear) Urine pH (5.0-8.0) Ur Specific Jackman (1.001-1.035) Urine Protein (Negative) Urine Glucose (UA) (Negative) Urine Ketones (Negative) Urine Blood (Negative) Urine Nitrite (Negative) Urine Bilirubin (Negative) Urine Urobilinogen (<2.0) mg/dL Ur Leukocyte Esterase (Negative) Urine RBC (0-5) /hpf Urine WBC (0-5) /hpf Ur Squamous Epith Cells (0-4) /hpf Urine Bacteria (None) /hpf Hyaline Casts (0-2) /lpf Urine Mucus (None) /hpf Urine Opiates Screen (NotDetected) Ur Oxycodone Screen (NotDetected) Urine Methadone Screen (NotDetected) Ur Barbiturates Screen (NotDetected) U Tricyclic Antidepress (NotDetected) Ur Phencyclidine Scrn (NotDetected) Ur Amphetamines Screen (NotDetected) U Methamphetamines Scrn (NotDetected) U Benzodiazepines Scrn (NotDetected) Urine Cocaine Screen (NotDetected) U Marijuana (THC) Screen (NotDetected) Influenza Type A (PCR) (Not Detectd) Influenza Type B (PCR) (Not Detectd) RSV (PCR) (Not Detectd) SARS-CoV-2 (PCR) (Not Detectd) 09/14/24 09/14/24 09/14/24 Range/Units 17:34 18:10 18:11 WBC (3.8-10.6) k/uL RBC (3.80-5.40) m/uL Hgb (11.4-16.0) gm/dL Hct (34.0-46.0) % MCV (80.0-100.0) fL MCH (25.0-35.0) pg MCHC (31.0-37.0) g/dL RDW (11.5-15.5) % Plt Count (150-450) k/uL MPV Neutrophils % % Lymphocytes % % Monocytes % % Eosinophils % % Basophils % % Neutrophils # (1.3-7.7) k/uL Lymphocytes # (1.0-4.8) k/uL Monocytes # (0-1.0) k/uL Eosinophils # (0-0.7) k/uL Basophils # (0-0.2) k/uL Hypochromasia PT (10.0-12.5) sec INR (<1.2) APTT (22.0-30.0) sec Sodium (137-145) mmol/L Potassium (3.5-5.1) mmol/L Chloride (98-107) mmol/L Carbon Dioxide (22-30) mmol/L Anion Gap mmol/L BUN (7-17) mg/dL Creatinine (0.52-1.04) mg/dL Est GFR (CKD-EPI) (>=60) Est GFR (CKD-EPI)AfAm (>60 ml/min/1.73 sqM) Est GFR (CKD-EPI)NonAf (>60 ml/min/1.73 sqM) BUN/Creatinine Ratio (12.00-20.00) Ratio Glucose (74-99) mg/dL POC Glucose (mg/dL) 35 L* 105 (70-110) mg/dL POC Glu Moisture Machine Tender ID Jude Charles Teri Calcium (8.4-10.2) mg/dL Magnesium (1.5-2.4) mg/dL Total Bilirubin (0.2-1.3) mg/dL AST (14-36) U/L ALT (4-34) U/L Alkaline Phosphatase (38-126) U/L Troponin I 0.039 H* (0.000-0.034) ng/mL NT-Pro-B Natriuret Pep pg/mL Total Protein (6.3-8.2) g/dL Albumin (3.5-5.0) g/dL Urine Color Urine Appearance (Clear) Urine pH (5.0-8.0) Ur Specific Jackman (1.001-1.035) Urine Protein (Negative) Urine Glucose (UA) (Negative) Urine Ketones (Negative) Urine Blood (Negative) Urine Nitrite (Negative) Urine Bilirubin (Negative) Urine Urobilinogen (<2.0) mg/dL Ur Leukocyte Esterase (Negative) Urine RBC (0-5) /hpf Urine WBC (0-5) /hpf Ur Squamous Epith Cells (0-4) /hpf Urine Bacteria (None) /hpf Hyaline Casts (0-2) /lpf Urine Mucus (None) /hpf Urine Opiates Screen (NotDetected) Ur Oxycodone Screen (NotDetected) Urine Methadone Screen (NotDetected) Ur Barbiturates Screen (NotDetected) U Tricyclic Antidepress (NotDetected) Ur Phencyclidine Scrn (NotDetected) Ur Amphetamines Screen (NotDetected) U Methamphetamines Scrn (NotDetected) U Benzodiazepines Scrn (NotDetected) Urine Cocaine Screen (NotDetected) U Marijuana (THC) Screen (NotDetected) Influenza Type A (PCR) (Not Detectd) Influenza Type B (PCR) (Not Detectd) RSV (PCR) (Not Detectd) SARS-CoV-2 (PCR) (Not Detectd) 09/14/24 09/14/24 09/14/24 Range/Units 20:28 20:28 21:36 WBC (3.8-10.6) k/uL RBC (3.80-5.40) m/uL Hgb (11.4-16.0) gm/dL Hct (34.0-46.0) % MCV (80.0-100.0) fL MCH (25.0-35.0) pg MCHC (31.0-37.0) g/dL RDW (11.5-15.5) % Plt Count (150-450) k/uL MPV Neutrophils % % Lymphocytes % % Monocytes % % Eosinophils % % Basophils % % Neutrophils # (1.3-7.7) k/uL Lymphocytes # (1.0-4.8) k/uL Monocytes # (0-1.0) k/uL Eosinophils # (0-0.7) k/uL Basophils # (0-0.2) k/uL Hypochromasia PT (10.0-12.5) sec INR (<1.2) APTT (22.0-30.0) sec Sodium (137-145) mmol/L Potassium (3.5-5.1) mmol/L Chloride (98-107) mmol/L Carbon Dioxide (22-30) mmol/L Anion Gap mmol/L BUN (7-17) mg/dL Creatinine (0.52-1.04) mg/dL Est GFR (CKD-EPI) (>=60) Est GFR (CKD-EPI)AfAm (>60 ml/min/1.73 sqM) Est GFR (CKD-EPI)NonAf (>60 ml/min/1.73 sqM) BUN/Creatinine Ratio (12.00-20.00) Ratio Glucose (74-99) mg/dL POC Glucose (mg/dL) (70-110) mg/dL POC Glu Moisture Machine Tender ID Calcium (8.4-10.2) mg/dL Magnesium (1.5-2.4) mg/dL Total Bilirubin (0.2-1.3) mg/dL AST (14-36) U/L ALT (4-34) U/L Alkaline Phosphatase (38-126) U/L Troponin I (0.000-0.034) ng/mL NT-Pro-B Natriuret Pep pg/mL Total Protein (6.3-8.2) g/dL Albumin (3.5-5.0) g/dL Urine Color Colorless Urine Appearance Cloudy H (Clear) Urine pH 7.0 (5.0-8.0) Ur Specific Jackman 1.009 (1.001-1.035) Urine Protein Negative (Negative) Urine Glucose (UA) Negative (Negative) Urine Ketones Negative (Negative) Urine Blood Negative (Negative) Urine Nitrite Negative (Negative) Urine Bilirubin Negative (Negative) Urine Urobilinogen <2.0 (<2.0) mg/dL Ur Leukocyte Esterase Small H (Negative) Urine RBC 1 (0-5) /hpf Urine WBC 4 (0-5) /hpf Ur Squamous Epith Cells 4 (0-4) /hpf Urine Bacteria Rare H (None) /hpf Hyaline Casts 1 (0-2) /lpf Urine Mucus Rare H (None) /hpf Urine Opiates Screen Not Detected (NotDetected) Ur Oxycodone Screen Not Detected (NotDetected) Urine Methadone Screen Not Detected (NotDetected) Ur Barbiturates Screen Detected H (NotDetected) U Tricyclic Antidepress Not Detected (NotDetected) Ur Phencyclidine Scrn Not Detected (NotDetected) Ur Amphetamines Screen Not Detected (NotDetected) U Methamphetamines Scrn Not Detected (NotDetected) U Benzodiazepines Scrn Not Detected (NotDetected) Urine Cocaine Screen Not Detected (NotDetected) U Marijuana (THC) Screen Not Detected (NotDetected) Influenza Type A (PCR) Not Detected (Not Detectd) Influenza Type B (PCR) Not Detected (Not Detectd) RSV (PCR) Not Detected (Not Detectd) SARS-CoV-2 (PCR) Not Detected (Not Detectd) 09/14/24 09/15/24 09/15/24 Range/Units 22:48 05:40 11:57 WBC (3.8-10.6) k/uL RBC (3.80-5.40) m/uL Hgb (11.4-16.0) gm/dL Hct (34.0-46.0) % MCV (80.0-100.0) fL MCH (25.0-35.0) pg MCHC (31.0-37.0) g/dL RDW (11.5-15.5) % Plt Count (150-450) k/uL MPV Neutrophils % % Lymphocytes % % Monocytes % % Eosinophils % % Basophils % % Neutrophils # (1.3-7.7) k/uL Lymphocytes # (1.0-4.8) k/uL Monocytes # (0-1.0) k/uL Eosinophils # (0-0.7) k/uL Basophils # (0-0.2) k/uL Hypochromasia PT (10.0-12.5) sec INR (<1.2) APTT (22.0-30.0) sec Sodium (137-145) mmol/L Potassium (3.5-5.1) mmol/L Chloride (98-107) mmol/L Carbon Dioxide (22-30) mmol/L Anion Gap mmol/L BUN (7-17) mg/dL Creatinine (0.52-1.04) mg/dL Est GFR (CKD-EPI) (>=60) Est GFR (CKD-EPI)AfAm (>60 ml/min/1.73 sqM) Est GFR (CKD-EPI)NonAf (>60 ml/min/1.73 sqM) BUN/Creatinine Ratio (12.00-20.00) Ratio Glucose (74-99) mg/dL POC Glucose (mg/dL) 80 229 H (70-110) mg/dL POC Glu Moisture Machine Tender ID Sher Santoyo Calcium (8.4-10.2) mg/dL Magnesium (1.5-2.4) mg/dL Total Bilirubin (0.2-1.3) mg/dL AST (14-36) U/L ALT (4-34) U/L Alkaline Phosphatase (38-126) U/L Troponin I 0.035 H* (0.000-0.034) ng/mL NT-Pro-B Natriuret Pep pg/mL Total Protein (6.3-8.2) g/dL Albumin (3.5-5.0) g/dL Urine Color Urine Appearance (Clear) Urine pH (5.0-8.0) Ur Specific Jackman (1.001-1.035) Urine Protein (Negative) Urine Glucose (UA) (Negative) Urine Ketones (Negative) Urine Blood (Negative) Urine Nitrite (Negative) Urine Bilirubin (Negative) Urine Urobilinogen (<2.0) mg/dL Ur Leukocyte Esterase (Negative) Urine RBC (0-5) /hpf Urine WBC (0-5) /hpf Ur Squamous Epith Cells (0-4) /hpf Urine Bacteria (None) /hpf Hyaline Casts (0-2) /lpf Urine Mucus (None) /hpf Urine Opiates Screen (NotDetected) Ur Oxycodone Screen (NotDetected) Urine Methadone Screen (NotDetected) Ur Barbiturates Screen (NotDetected) U Tricyclic Antidepress (NotDetected) Ur Phencyclidine Scrn (NotDetected) Ur Amphetamines Screen (NotDetected) U Methamphetamines Scrn (NotDetected) U Benzodiazepines Scrn (NotDetected) Urine Cocaine Screen (NotDetected) U Marijuana (THC) Screen (NotDetected) Influenza Type A (PCR) (Not Detectd) Influenza Type B (PCR) (Not Detectd) RSV (PCR) (Not Detectd) SARS-CoV-2 (PCR) (Not Detectd) 09/15/24 09/15/24 09/15/24 Range/Units 15:03 17:21 20:13 WBC (3.8-10.6) k/uL RBC (3.80-5.40) m/uL Hgb (11.4-16.0) gm/dL Hct (34.0-46.0) % MCV (80.0-100.0) fL MCH (25.0-35.0) pg MCHC (31.0-37.0) g/dL RDW (11.5-15.5) % Plt Count (150-450) k/uL MPV Neutrophils % % Lymphocytes % % Monocytes % % Eosinophils % % Basophils % % Neutrophils # (1.3-7.7) k/uL Lymphocytes # (1.0-4.8) k/uL Monocytes # (0-1.0) k/uL Eosinophils # (0-0.7) k/uL Basophils # (0-0.2) k/uL Hypochromasia PT (10.0-12.5) sec INR (<1.2) APTT (22.0-30.0) sec Sodium (137-145) mmol/L Potassium (3.5-5.1) mmol/L Chloride (98-107) mmol/L Carbon Dioxide (22-30) mmol/L Anion Gap mmol/L BUN (7-17) mg/dL Creatinine (0.52-1.04) mg/dL Est GFR (CKD-EPI) (>=60) Est GFR (CKD-EPI)AfAm (>60 ml/min/1.73 sqM) Est GFR (CKD-EPI)NonAf (>60 ml/min/1.73 sqM) BUN/Creatinine Ratio (12.00-20.00) Ratio Glucose (74-99) mg/dL POC Glucose (mg/dL) 151 H 106 (70-110) mg/dL POC Glu Moisture Machine Tender NARCISO Bridges Calcium (8.4-10.2) mg/dL Magnesium (1.5-2.4) mg/dL Total Bilirubin (0.2-1.3) mg/dL AST (14-36) U/L ALT (4-34) U/L Alkaline Phosphatase (38-126) U/L Troponin I (0.000-0.034) ng/mL NT-Pro-B Natriuret Pep 700 pg/mL Total Protein (6.3-8.2) g/dL Albumin (3.5-5.0) g/dL Urine Color Urine Appearance (Clear) Urine pH (5.0-8.0) Ur Specific Jackman (1.001-1.035) Urine Protein (Negative) Urine Glucose (UA) (Negative) Urine Ketones (Negative) Urine Blood (Negative) Urine Nitrite (Negative) Urine Bilirubin (Negative) Urine Urobilinogen (<2.0) mg/dL Ur Leukocyte Esterase (Negative) Urine RBC (0-5) /hpf Urine WBC (0-5) /hpf Ur Squamous Epith Cells (0-4) /hpf Urine Bacteria (None) /hpf Hyaline Casts (0-2) /lpf Urine Mucus (None) /hpf Urine Opiates Screen (NotDetected) Ur Oxycodone Screen (NotDetected) Urine Methadone Screen (NotDetected) Ur Barbiturates Screen (NotDetected) U Tricyclic Antidepress (NotDetected) Ur Phencyclidine Scrn (NotDetected) Ur Amphetamines Screen (NotDetected) U Methamphetamines Scrn (NotDetected) U Benzodiazepines Scrn (NotDetected) Urine Cocaine Screen (NotDetected) U Marijuana (THC) Screen (NotDetected) Influenza Type A (PCR) (Not Detectd) Influenza Type B (PCR) (Not Detectd) RSV (PCR) (Not Detectd) SARS-CoV-2 (PCR) (Not Detectd) 09/16/24 09/16/24 09/16/24 Range/Units 04:29 05:21 08:26 WBC (3.8-10.6) k/uL RBC (3.80-5.40) m/uL Hgb (11.4-16.0) gm/dL Hct (34.0-46.0) % MCV (80.0-100.0) fL MCH (25.0-35.0) pg MCHC (31.0-37.0) g/dL RDW (11.5-15.5) % Plt Count (150-450) k/uL MPV Neutrophils % % Lymphocytes % % Monocytes % % Eosinophils % % Basophils % % Neutrophils # (1.3-7.7) k/uL Lymphocytes # (1.0-4.8) k/uL Monocytes # (0-1.0) k/uL Eosinophils # (0-0.7) k/uL Basophils # (0-0.2) k/uL Hypochromasia PT (10.0-12.5) sec INR (<1.2) APTT (22.0-30.0) sec Sodium 145 (137-145) mmol/L Potassium 4.4 (3.5-5.1) mmol/L Chloride 102 (98-107) mmol/L Carbon Dioxide 34.3 H (22-30) mmol/L Anion Gap 8.70 mmol/L BUN 49.3 H (7-17) mg/dL Creatinine 2.6 H (0.52-1.04) mg/dL Est GFR (CKD-EPI) 18 L (>=60) Est GFR (CKD-EPI)AfAm (>60 ml/min/1.73 sqM) Est GFR (CKD-EPI)NonAf (>60 ml/min/1.73 sqM) BUN/Creatinine Ratio 18.96 (12.00-20.00) Ratio Glucose 103 (74-99) mg/dL POC Glucose (mg/dL) 116 H 136 H (70-110) mg/dL POC Glu Mo[employer] Tender ID Sher Leon Yarelis Calcium 10.5 H (8.4-10.2) mg/dL Magnesium 1.9 (1.5-2.4) mg/dL Total Bilirubin (0.2-1.3) mg/dL AST (14-36) U/L ALT (4-34) U/L Alkaline Phosphatase (38-126) U/L Troponin I (0.000-0.034) ng/mL NT-Pro-B Natriuret Pep pg/mL Total Protein (6.3-8.2) g/dL Albumin (3.5-5.0) g/dL Urine Color Urine Appearance (Clear) Urine pH (5.0-8.0) Ur Specific Jackman (1.001-1.035) Urine Protein (Negative) Urine Glucose (UA) (Negative) Urine Ketones (Negative) Urine Blood (Negative) Urine Nitrite (Negative) Urine Bilirubin (Negative) Urine Urobilinogen (<2.0) mg/dL Ur Leukocyte Esterase (Negative) Urine RBC (0-5) /hpf Urine WBC (0-5) /hpf Ur Squamous Epith Cells (0-4) /hpf Urine Bacteria (None) /hpf Hyaline Casts (0-2) /lpf Urine Mucus (None) /hpf Urine Opiates Screen (NotDetected) Ur Oxycodone Screen (NotDetected) Urine Methadone Screen (NotDetected) Ur Barbiturates Screen (NotDetected) U Tricyclic Antidepress (NotDetected) Ur Phencyclidine Scrn (NotDetected) Ur Amphetamines Screen (NotDetected) U Methamphetamines Scrn (NotDetected) U Benzodiazepines Scrn (NotDetected) Urine Cocaine Screen (NotDetected) U Marijuana (THC) Screen (NotDetected) Influenza Type A (PCR) (Not Detectd) Influenza Type B (PCR) (Not Detectd) RSV (PCR) (Not Detectd) SARS-CoV-2 (PCR) (Not Detectd) Disposition Clinical Impression: Weakness, Mental status alteration Disposition: ADMITTED IP TO THIS HOSP Condition: Fair
[2024-09-14 18:13] LABS: Glucose,Whole Blood 35 mg/dL (70-110)
[2024-09-14 18:13] LABS: Glucose,Whole Blood 105 mg/dL (70-110)
--- NOTE | 2024-09-14 18:29 | CT ---
EXAMINATION TYPE: CT brain wo con DATE OF EXAM: 09/14/2024 6:11 PM COMPARISON: 06/03/2024 CLINICAL INDICATION: Female, 79 years old with history of Altered mental status, weakness, ams TECHNIQUE: CT of the brain is performed utilizing 3 mm thick sections through the posterior fossa and 3 mm thick sections through the remaining calvarium. Study is performed within 24 hours of arrival to the hospital. Contrast used: mL of , (none if empty) CT DLP: 1243.2 mGycm, Automated exposure control for dose reduction was used. FINDINGS: No abnormal hyperdensity is present to suggest an acute intracranial hemorrhage. No mass lesion is evident. No acute infarcts are evident. Ventricles and sulci are appropriate for the patient age. Paranasal sinuses and mastoid air cells within the [id number] are clear. IMPRESSION: 1. No acute intracranial process. Follow up MRI can be performed as clinically indicated. [facility], , 09/14/2024 6:27 PM
[2024-09-14 18:35] LABS: Basophils % (A) 0 %; Eosinophils # (A) 0.1 k/uL (0-0.7); Eosinophils % (A) 1 %; HCT 35.6 % (34.0-46.0); HGB 11.4 gm/dL (11.4-16.0); Hypochromasia Slight; Lymphocytes # (A) 1.5 k/uL (1.0-4.8); Lymphocytes % (A) 18 %; Mean Platelet Volume 7.8; Monocytes # (A) 0.6 k/uL (0-1.0); Monocytes % (A) 7 %; Neutrophils # (A) 5.9 k/uL (1.3-7.7); Neutrophils % (A) 72 %; Platelet Count 261 k/uL (150-450); RBC 3.67 m/uL (3.80-5.40); RDW 13.4 % (11.5-15.5); WBC 8.2 k/uL (3.8-10.6)
--- NOTE | 2024-09-14 18:45 | XR ---
EXAMINATION TYPE: XR chest 1V portable DATE OF EXAM: 09/14/2024 5:58 PM COMPARISON: 06/07/2024 CLINICAL INDICATION: Female, 79 years old with history of altered mental status, TECHNIQUE: XR chest 1V portable view(s) obtained. FINDINGS: The heart size is normal. The pulmonary vasculature is normal. The lungs are clear. IMPRESSION: 1. No acute pulmonary process. [facility], , 09/14/2024 6:42 PM
[2024-09-14 18:49] LABS: Partial Thromboplastin Time 24.3 sec (22.0-30.0); Prothrombin Time 10.7 sec (10.0-12.5)
[2024-09-14 19:03] LABS: ALT <6 U/L (4-34); AST 11 U/L (14-36); African American GFR (CKD) 22 (>60 ml/min/1.73 sqM); Albumin 3.3 g/dL (3.5-5.0); Alkaline Phosphatase 56 U/L (38-126); Blood Urea Nitrogen 58 mg/dL (7-17); Calcium 11.7 mg/dL (8.4-10.2); Chloride 97 mmol/L (98-107); Glucose 98 mg/dL (74-99); Non-African American GFR(CKD) 19 (>60 ml/min/1.73 sqM); Potassium 4.2 mmol/L (3.5-5.1); Sodium 142 mmol/L (137-145); Total Bilirubin 0.3 mg/dL (0.2-1.3); Total Protein 6.1 g/dL (6.3-8.2)
[2024-09-14] MEDS: SODIUM CHLORIDE 0.9% 1,000 ML IV STA ×2 (19:03→19:33)
[2024-09-14 19:09] LABS: Anion Gap 10 mmol/L
[2024-09-14 19:13] LABS: Carbon Dioxide 35 mmol/L (22-30)
[2024-09-14] MEDS: SODIUM CHLORIDE 0.9% 500 ML 500 ML IV STA (19:46)
[2024-09-14 20:49] LABS: Appearance,Urine Cloudy (Clear); Bacteria,Urine Rare /hpf; Bilirubin,Urine Negative (Negative); Blood,Urine Negative (Negative); Color,Urine Colorless; Glucose,Urine (UA) Negative (Negative); Hyaline Casts,Urine 1 /lpf (0-2); Ketones,Urine Negative (Negative); Leukocyte Esterase,Urine Small (Negative); Mucus,Urine Rare /hpf; Nitrite,Urine Negative (Negative); Protein,Urine Negative (Negative); RBC,Urine 1 /hpf (0-5); Specific Gravity,Urine 1.009 (1.001-1.035); Squamous Epithelial Cell,Urine 4 /hpf (0-4); Urobilinogen,Urine <2.0 mg/dL (<2.0); WBC,Urine 4 /hpf (0-5)
[2024-09-14 21:37] LABS: Amphetamine Screen,Urine Not Detected (NotDetected); Barbiturate Screen,Urine Detected (NotDetected); Benzodiazepines Screen,Urine Not Detected (NotDetected); Cocaine Screen,Urine Not Detected (NotDetected); Methadone Screen, Urine Not Detected (NotDetected); Opiate Screen,Urine Not Detected (NotDetected); Oxycodone Screen, Urine Not Detected (NotDetected); Phencyclidine Screen,Urine Not Detected (NotDetected); Tricyclic Antidepressant,Urine Not Detected (NotDetected); Urn Cannabinoid Scrn Not Detected (NotDetected)
[2024-09-14 22:26] LABS: Influenza A Not Detected (Not Detectd); Influenza B Not Detected (Not Detectd); RSV Not Detected (Not Detectd)
[2024-09-14] MEDS ORDERED: NALOXONE 0.4 MG/ML 1 ML VIAL IV PRN (22:39)
[2024-09-14] MEDS ORDERED: MAG HYDROX/AL HYDROX/SIMETH 30 ML CUP PO PRN (22:39)
[2024-09-14] MEDS: SODIUM CHLORIDE 0.9% 1,000 ML IV SCH (22:41)
[2024-09-15 05:46] LABS: Glucose,Whole Blood 80 mg/dL (70-110)
[2024-09-15] MEDS: LEVOTHYROXINE 75 MCG TAB PO SCH (06:03)
[2024-09-15] MEDS: CARBIDOPA-LEVODOPA 25-100 MG 1 EACH TAB PO SCH (06:03)
[2024-09-15] MEDS: APIXABAN 5 MG TAB PO SCH (07:43)
[2024-09-15] MEDS: PRIMIDONE 50 MG TAB PO SCH (07:44)
[2024-09-15] MEDS: METOPROLOL SUCCINATE (ER) 50 MG TAB.ER.24H PO SCH (07:46)
[2024-09-15] MEDS: LOSARTAN 50 MG TAB PO SCH (07:46)
[2024-09-15] MEDS: FAMOTIDINE 20 MG TAB PO SCH (07:47)
[2024-09-15] MEDS: AMIODARONE 100 MG TAB PO SCH (07:47)
[2024-09-15] MEDS: DOCUSATE 100 MG CAP PO SCH (07:47)
[2024-09-15 11:58] LABS: Glucose,Whole Blood 229 mg/dL (70-110)
[2024-09-15] MEDS ORDERED: NITROGLYCERIN SL TABS 0.4 MG TAB SUBLINGUAL PRN (14:46)
[2024-09-15] MEDS ORDERED: polyethylene glycoL 3350 17 GM POWD.PACK PO PRN (14:46)
[2024-09-15] MEDS ORDERED: SIMETHICONE 80 MG CHEWABLE PO PRN (14:46)
--- NOTE | 2024-09-15 15:04 | P.HPIM ---
History of Present Illness 79-year-old female came in with complaints of generalized weakness shakiness and believed that her potassium is low. Her potassium here is within normal limits patient does have history of Parkinson's patient is shaking more than usual. I had a lengthy discussion with the daughter patient has been excessively sleepy more shaky and has been weak and her legs are giving up. All the workup here is negative except for worsening of creatinine from her baseline of around 1.9-2.4. Patient was believed to be dehydrated and was started on IV fluids in ER. Patient does have extensive cardiac history including congestive heart failure EF of around 20 to 25% it appears to have been improved lately. Patient is presently not volume overloaded I do not have any BNP available but chest x-ray did not show any infiltrate or congestive heart failure. Patient is laying flat or any orthopnea paroxysmal nocturnal dyspnea. Patient has EKG essentially within normal limits patient had 2 sets of troponins which are slightly elevated but at flat at 0.035 in the secondary to congestive heart failure and chronic kidney disease. REVIEW OF SYSTEMS: All other systems are negative except those mentioned in the HPI PHYSICAL EXAMINATION: GENERAL: The patient is alert and oriented x3, not in any acute distress. Well developed, well nourished. Patient does have tremor HEENT: Pupils are round and equally reacting to light. EOMI. No scleral icterus. No conjunctival pallor. Normocephalic, atraumatic. No pharyngeal erythema. No thyromegaly. CARDIOVASCULAR: S1 and S2 present. No murmurs, rubs, or gallops. PULMONARY: Chest is clear to auscultation, no wheezing or crackles. ABDOMEN: Soft, nontender, nondistended, normoactive bowel sounds. No palpable organomegaly. MUSCULOSKELETAL: No joint swelling or deformity. EXTREMITIES: No cyanosis, clubbing, or pedal edema. NEUROLOGICAL: Gross neurological examination did not reveal any focal deficits. Patient has significant generalized weakness and muscle atrophy in bilateral low er extremities. SKIN: No rashes. Assessment and plan -Generalized weakness and falls: Secondary to advancing Parkinson's and multiple other medical problems patient will need PT and OT evaluation depending on the PT and OT evaluation with this side her disposition -Acute on chronic kidney disease stage IV: Acute renal failure was probably secondary to excessive diuresis at ejection fraction improved may need to cut down the dose of Bumex. Patient received IV fluids. Continue more IV fluids w ill put her in heart failure exacerbation I will discontinue IV fluids albumin will be resumed tomorrow may be switched to 2 mg in the morning and 1 mg in the evening. -Parkinson's with extensive tremor resumed on carbidopa and primidone further titration of medications as an outpatient -Type 2 diabetes mellitus -Hyperlipidemia -Hypertension -Rheumatoid arthritis -Congestive heart failure chronic systolic dysfunction EF of around 20 to 25% without any acute exacerbation -Paroxysmal atrial fibrillation for which patient on anticoagulation which was resumed and the patient is on amiodarone DVT prophylaxis: On anticoagulation as an outpatient which was resumed Past Medical History Past Medical History: Heart Failure, Diabetes Mellitus, Hyperlipidemia, Hypertension, Pneumonia, Rheumatoid Arthritis (RA) Additional Past Medical History / Comment(s): tremors, renal lithiasis, hemorrhoids(sx done), "has had problems w/low magnesium.anemia. per spouse pt had past cancer "uterine or cervical-had hysterectomy". it was previously charted that pt had hx of ra and cfh spouse not able to verify this, History of Any Multi-Drug Resistant Organisms: ESBL Date of last positivie culture/infection: 09/15/23 MDRO Source:: URINE Past Surgical History: Appendectomy, Hysterectomy, Orthopedic Surgery, Tonsillectomy Additional Past Surgical History / Comment(s): rt total knee repalcement, cataracts, hemmorroidectomy, colonoscopy Past Anesthesia/Blood Transfusion Reactions: No Reported Reaction Additional Past Anesthesia/Blood Transfusion Reaction / Comment(s): per psouse- pt never receieved any blood Past Psychological History: No Psychological Hx Reported Additional Psychological History / Comment(s): and was living in the family home under the care of the and family members. [employer] nonsmoker no alcohol use. No experience. No international travel. No animal exposures. Has been to multiple tertiary [facility]'s Smoking Status: Never smoker Past Alcohol Use History: None Reported Past Drug Use History: None Reported - Past Family History Mother Family Medical History: Diabetes Mellitus Father Additional Family Medical History / Comment(s): brain anuerysm Medications and Allergies Home Medications Medication Instructions Recorded Confirmed Type Simvastatin [Zocor] 20 mg PO HS 07/18/14 09/14/24 History Primidone 75 mg PO BID 07/23/22 09/14/24 History allopurinoL [Zyloprim] 300 mg PO DAILY 07/23/22 09/14/24 History busPIRone HCl [Buspar] 5 mg PO BID 07/23/22 09/14/24 History Apixaban [Eliquis] 5 mg PO BID tab 08/04/22 09/14/24 Rx Carbidopa-Levodopa 25-100 mg 1 tab PO TID-W/MEALS 09/14/23 09/14/24 History [Sinemet 25-100 mg] Escitalopram Oxalate [Lexapro] 10 mg PO DAILY 09/14/23 09/14/24 History Cyanocobalamin (Vitamin B-12) 1,000 mcg PO DAILY 02/27/24 09/14/24 History [Vitamin B-12] Docusate [Colace] 100 mg PO DAILY 02/27/24 09/14/24 History Levothyroxine Sodium [Synthroid] 75 mcg PO AC-BRKFST 02/27/24 09/14/24 History Losartan Potassium 50 mg PO DAILY 02/27/24 09/14/24 History Nitroglycerin Sl Tabs [Nitrostat] 0.4 mg SUBLINGUAL Q5M PRN 02/27/24 09/14/24 History Simethicone 180 mg PO ACHS PRN 02/27/24 09/14/24 History polyethylene glycoL 3350 [Miralax] 17 gm PO DAILY PRN 02/27/24 09/14/24 History Metoprolol Succinate (ER) [Toprol 50 mg PO BID tab 03/05/24 09/14/24 Rx XL] Acetaminophen Tab [Tylenol] 500 mg PO Q6H PRN 06/03/24 09/14/24 History Amiodarone [Cordarone] 100 mg PO DAILY 06/03/24 09/14/24 History Bumetanide [BUMEX] 2 mg PO BID 06/03/24 09/14/24 History Calcium Carbonate [Calcium] 1,200 mg PO HS 06/03/24 09/14/24 History Denosumab [Prolia] 60 mg SQ Q180D 06/03/24 09/14/24 History Insulin Glargine,Hum.rec.anlog 20 units SQ HS PRN 06/03/24 09/14/24 History [Lantus Solostar Pen] Insulin Glargine,Hum.rec.anlog 36 units SQ DAILY 06/03/24 09/14/24 History [Lantus Solostar Pen] Potassium Chloride ER [K-Dur 20] 20 meq PO DAILY 06/03/24 09/14/24 History Insulin Lispro [humaLOG Kwikpen] 6 - 10 unit SQ AC-BID@0900,1300 09/14/24 09/14/24 History Insulin Lispro [humaLOG Kwikpen] 8 unit SQ W/SUPPER 09/14/24 09/14/24 History Allergies Allergy/AdvReac Type Severity Reaction Status Date / Time gabapentin AdvReac Hallucinati Verified 09/14/24 18:03 ons Physical Exam Vitals: Vital Signs Temp Pulse Pulse Resp BP BP Pulse Ox 09/15/24 07:00 60 18 142/64 97 09/15/24 02:35 60 18 09/15/24 01:00 97.5 F L 60 18 108/65 99 09/15/24 00:28 97.6 F 53 L 18 152/59 95 09/14/24 23:12 75 16 159/73 94 L 09/14/24 17:01 97.6 F 60 18 162/71 93 L Intake and Output 09/15/24 09/15/24 09/15/24 06:59 14:59 22:59 Intake Total 118 Output Total 350 Balance -350 118 Intake: Oral 118 Output: Urine 350 Other: Voiding Method External Catheter Weight 95.254 kg Results CBC & Chem 7: 09/14/24 17:34 09/14/24 17:34 Labs: Abnormal Lab Results - Last 24 Hours (Table) 09/14/24 09/14/24 09/14/24 Range/Units 17:34 17:34 17:34 RBC 3.67 L (3.80-5.40) m/uL Chloride 97 L (98-107) mmol/L Carbon Dioxide 35 H (22-30) mmol/L BUN 58 H (7-17) mg/dL Creatinine 2.35 H (0.52-1.04) mg/dL POC Glucose (mg/dL) (70-110) mg/dL Calcium 11.7 H (8.4-10.2) mg/dL AST 11 L (14-36) U/L Troponin I 0.039 H* (0.000-0.034) ng/mL Total Protein 6.1 L (6.3-8.2) g/dL Albumin 3.3 L (3.5-5.0) g/dL Urine Appearance (Clear) Ur Leukocyte Esterase (Negative) Urine Bacteria (None) /hpf Urine Mucus (None) /hpf Ur Barbiturates Screen (NotDetected) 09/14/24 09/14/24 09/14/24 Range/Units 18:10 20:28 20:28 RBC (3.80-5.40) m/uL Chloride (98-107) mmol/L Carbon Dioxide (22-30) mmol/L BUN (7-17) mg/dL Creatinine (0.52-1.04) mg/dL POC Glucose (mg/dL) 35 L* (70-110) mg/dL Calcium (8.4-10.2) mg/dL AST (14-36) U/L Troponin I (0.000-0.034) ng/mL Total Protein (6.3-8.2) g/dL Albumin (3.5-5.0) g/dL Urine Appearance Cloudy H (Clear) Ur Leukocyte Esterase Small H (Negative) Urine Bacteria Rare H (None) /hpf Urine Mucus Rare H (None) /hpf Ur Barbiturates Screen Detected H (NotDetected) 09/14/24 09/15/24 Range/Units 22:48 11:57 RBC (3.80-5.40) m/uL Chloride (98-107) mmol/L Carbon Dioxide (22-30) mmol/L BUN (7-17) mg/dL Creatinine (0.52-1.04) mg/dL POC Glucose (mg/dL) 229 H (70-110) mg/dL Calcium (8.4-10.2) mg/dL AST (14-36) U/L Troponin I 0.035 H* (0.000-0.034) ng/mL Total Protein (6.3-8.2) g/dL Albumin (3.5-5.0) g/dL Urine Appearance (Clear) Ur Leukocyte Esterase (Negative) Urine Bacteria (None) /hpf Urine Mucus (None) /hpf Ur Barbiturates Screen (NotDetected) Thrombosis Risk Factor Assmnt - Choose All That Apply Any of the Below Risk Factors Present?: Yes Each Factor Represents 1 point: Acute MT, Obesity (BMI >25) Other Risk Factors: Yes Each Risk Factor Represents 3 Points: Age 75 years or older Other congenital or acquired thrombophilia - If yes, enter type in comment: No Thrombosis Risk Factor Assessment Total Risk Factor Score: 5 Thrombosis Risk Factor Assessment Level: High Risk
[2024-09-15] MEDS: ESCITALOPRAM 10 MG TAB PO SCH (15:55)
[2024-09-15 17:22] LABS: Glucose,Whole Blood 151 mg/dL (70-110)
[2024-09-15] MEDS: INSULIN ASPART (NovoLOG) 100 UNIT/ML VIAL SQ SCH ×2 (18:00→18:01)
[2024-09-15 20:22] LABS: Glucose,Whole Blood 106 mg/dL (70-110)
[2024-09-15] MEDS: INSULIN DETEMIR (LEVEMIR) 100 UNIT/ML SYR SQ SCH (21:22)
[2024-09-15] MEDS: ATORVASTATIN 10 MG TAB PO SCH (21:48)
[2024-09-15] MEDS: busPIRone HCl 5 MG TAB PO SCH (21:49)
[2024-09-16 05:27] LABS: Glucose,Whole Blood 116 mg/dL (70-110)
[2024-09-16 08:35] LABS: Glucose,Whole Blood 136 mg/dL (70-110)
[2024-09-16] MEDS: BUMETANIDE 1 MG TAB PO SCH (08:56)
[2024-09-16] MEDS: INSULIN ASPART (NovoLOG) 100 UNIT/ML VIAL SQ SCH (08:57)
[2024-09-16] MEDS: INSULIN DETEMIR (LEVEMIR) 100 UNIT/ML SYR SQ SCH (08:57)
[2024-09-16 09:42] LABS: BUN/Creat Ratio 18.96 Ratio (12.00-20.00); Blood Urea Nitrogen 49.3 mg/dL (9.0-27.0); Calcium 10.5 mg/dL (8.7-10.3); Carbon Dioxide 34.3 mmol/L (21.6-31.8); Chloride 102 mmol/L (96-109); Glucose 103 mg/dL (70-110); Magnesium 1.9 mg/dL (1.5-2.4); Potassium 4.4 mmol/L (3.5-5.5); Sodium 145 mmol/L (135-145)
[2024-09-16] MEDS: QUEtiapine 25 MG TAB PO PRN (09:52)
--- NOTE | 2024-09-16 10:34 | CT ---
EXAMINATION TYPE: CT brain wo con DATE OF EXAM: 09/16/2024 10:27 AM COMPARISON: None. CLINICAL INDICATION: Female, 79 years old with history of AMS, dizziness, AMS, dizziness TECHNIQUE: CT of the brain is performed utilizing 3 mm thick sections through the posterior fossa and 3 mm thick sections through the remaining calvarium. Study is performed within 24 hours of arrival to the hospital. Contrast used: mL of , (none if empty) CT DLP: 2128.6 mGycm, Automated exposure control for dose reduction was used. Beam hardening artifact from dental amalgam is present limiting portions of the skull base. Some lilo on artifact is present during the early part of the exam. FINDINGS: No abnormal hyperdensity is present to suggest an acute intracranial hemorrhage. No mass lesion is evident. No acute infarcts are evident. Subtle periventricular white matter hypodensity likely on the basis of chronic white matter ischemic change appears to be present. Ventricles and sulci are appropriate for the patient age. Paranasal sinuses and mastoid air cells within the [id number] are clear. Hyperostosis frontalis internus, a normal variant, is present IMPRESSION: 1. No acute intracranial process. Follow up MRI can be performed as clinically indicated. 2. Exam stable from comparison [facility], , 09/16/2024 10:31 AM
--- NOTE | 2024-09-16 10:34 | P.PN ---
Subjective 79-year-old female came in with complaints of generalized weakness shakiness and believed that her potassium is low. Her potassium here is within normal limits patient does have history of Parkinson's patient is shaking more than usual. I had a lengthy discussion with the daughter patient has been excessively sleepy more shaky and has been weak and her legs are giving up. All the workup here is negative except for worsening of creatinine from her baseline of around 1.9-2.4. Patient was believed to be dehydrated and was started on IV fluids in ER. Patient does have extensive cardiac history including congestive heart failure EF of around 20 to 25% it appears to have been improved lately. Patient is presently not volume overloaded I do not have any BNP available but chest x-ray did not show any infiltrate or congestive heart failure. Patient is laying flat or any orthopnea paroxysmal nocturnal dyspnea. Patient has EKG essentially w ithin normal limits patient had 2 sets of troponins which are slightly elevated but at flat at 0.035 in the secondary to congestive heart failure and chronic kidney disease. 09/16/2024 Patient is more confused today and lethargic because of which CT of the head was repeated again by the on-call. Patient is bit more volume overloaded patient was resumed on Bumex. Patient agitation is secondary to hospitalization. Patient does not have any fever at this time creatinine went up to 2.6 nephrolog y will be consulted baseline is around 1.8. REVIEW OF SYSTEMS: All other systems are negative except those mentioned in the HPI PHYSICAL EXAMINATION: GENERAL: The patient is alert and oriented x3, not in any acute distress. Well developed, well nourished. Patient does have tremor HEENT: Pupils are round and equally reacting to light. EOMI. No scleral icterus. No conjunctival pallor. Normocephalic, atraumatic. No pharyngeal erythema. No thyromegaly. CARDIOVASCULAR: S1 and S2 present. No murmurs, rubs, or gallops. PULMONARY: Chest is clear to auscultation, no wheezing or crackles. ABDOMEN: Soft, nontender, nondistended, normoactive bowel sounds. No palpable organomegaly. MUSCULOSKELETAL: No joint swelling or deformity. EXTREMITIES: No cyanosis, clubbing, or pedal edema. NEUROLOGICAL: Gross neurological examination did not reveal any focal deficits. Patient has significant generalized weakness and muscle atrophy in bilateral lower extremities. SKIN: No rashes. Assessment and plan -Generalized weakness and falls: Secondary to advancing Parkinson's and multiple other medical problems patient will need PT and OT evaluation depending on the PT and OT evaluation with this side her disposition -Acute on chronic kidney disease stage IV: Acute renal failure was probably seco ndary to excessive diuresis at ejection fraction improved. Patient is bit volume overloaded today because of which I am resuming on her on Bumex oral. -Altered mental status secondary to hospitalization. -Hallucinations possibility of parkinsonian dementia will use a very low-dose of Seroquel on an as-needed basis -Parkinson's with extensive tremor resumed on carbidopa and primidone further titration of medications as an outpatient -Type 2 diabetes mellitus -Hyperlipidemia -Hypertension -Rheumatoid arthritis -Congestive heart failure chronic systolic dysfunction EF of around 20 to 25% without any acute exacerbation on admission but mild acute exacerbation now will be resumed on Bumex -Paroxysmal atrial fibrillation for which patient on anticoagulation which was resumed and the patient is on amiodarone DVT prophylaxis: On anticoagulation as an outpatient which was resumed Objective - Vital Signs Vital signs: Vital Signs Temp 98.2 F 09/16/24 07:15 Pulse 71 09/16/24 07:15 Resp 17 09/16/24 07:15 BP 117/78 09/16/24 09:47 Pulse Ox 91 L 09/16/24 07:15 FiO2 Intake & Output 09/15/24 09/16/24 09/16/24 18:59 06:59 18:59 Intake Total 118 Output Total 500 250 Balance -382 -250 Intake: Oral 118 Output: Urine 500 250 Other: Voiding Method External Catheter External Catheter # Voids 0 # Bowel Movements 0 - Labs CBC & Chem 7: 09/14/24 17:34 09/16/24 04:29 Labs: Abnormal Lab Results - Last 24 Hours (Table) 09/15/24 09/15/24 09/16/24 Range/Units 11:57 17:21 04:29 Carbon Dioxide 34.3 H (21.6-31.8) mmol/L BUN 49.3 H (9.0-27.0) mg/dL Creatinine 2.6 H (0.6-1.5) mg/dL Est GFR (CKD-EPI) 18 L (>=60) POC Glucose (mg/dL) 229 H 151 H (70-110) mg/dL Calcium 10.5 H (8.7-10.3) mg/dL 09/16/24 09/16/24 Range/Units 05:21 08:26 Carbon Dioxide (21.6-31.8) mmol/L BUN (9.0-27.0) mg/dL Creatinine (0.6-1.5) mg/dL Est GFR (CKD-EPI) (>=60) POC Glucose (mg/dL) 116 H 136 H (70-110) mg/dL Calcium (8.7-10.3) mg/dL Microbiology - Last 24 Hours (Table) 09/14/24 17:30 Blood Culture - Preliminary Blood 09/14/24 17:15 Blood Culture - Preliminary Blood
--- NOTE | 2024-09-16 10:50 | XR ---
EXAMINATION TYPE: XR chest 2V DATE OF EXAM: 09/16/2024 10:45 AM COMPARISON: 09/14/2024 CLINICAL INDICATION: Female, 79 years old with history of hypoxia, TECHNIQUE: XR chest 2V view(s) obtained. FINDINGS: The heart size is normal. The pulmonary vasculature is normal. Mild subsegmental atelectasis may be at the lung bases.. IMPRESSION: 1. Mild bibasilar infiltrates. Correlate for subsegmental atelectasis [facility], , 09/16/2024 10:48 AM
[2024-09-16] MEDS ORDERED: PIPERACILLIN-TAZOBACTAM 3.375 GM in SODIUM CHLORIDE 0.9% 100 ML IVPB SCH (12:00)
[2024-09-16 12:07] LABS: Glucose,Whole Blood 183 mg/dL (70-110)
--- NOTE | 2024-09-16 12:45 | P.NPCON ---
History of Present Illness - Reason for Consult acute renal failure - History of Present Illness Patient is a 79-year-old female with history of type 2 diabetes, hypertension, CHF and rheumatoid arthritis. She is admitted to the hospital with history of mental status changes and inability to ambulate. Patient is currently confused and not able to provide history. Underlying history of CKD stage IV with baseline creatinine around 2 to 2.5 mg/dL. Serum creatinine 1.8 on 07/09/2024. No hypotension documented. Blood pressure is actually high. Serum calcium 11.7 on admission. Creatinine was 2.3 and increased to 2.6. Maintained on IV fluids. Patient is voiding Past Medical History Past Medical History: Heart Failure, Diabetes Mellitus, Hyperlipidemia, Hyp ertension, Pneumonia, Rheumatoid Arthritis (RA) Additional Past Medical History / Comment(s): tremors, renal lithiasis, hemorrhoids(sx done), "has had problems w/low magnesium.anemia. per spouse pt had past cancer "uterine or cervical-had hysterectomy". it was previously kelton rted that pt had hx of ra and cfh spouse not able to verify this, History of Any Multi-Drug Resistant Organisms: ESBL Date of last positivie culture/infection: 09/15/23 MDRO Source:: URINE Past Surgical History: Appendectomy, Hysterectomy, Orthopedic Surgery, Tonsillectomy Additional Past Surgical History / Comment(s): rt total knee repalcement, cataracts, hemmorroidectomy, colonoscopy Past Anesthesia/Blood Transfusion Reactions: No Reported Reaction Additional Past Anesthesia/Blood Transfusion Reaction / Comment(s): per psouse- pt never receieved any blood Past Psychological History: No Psychological Hx Reported Additional Psychological History / Comment(s): and was living in the family home under the care of the and family members. [employer] nonsmok er no alcohol use. No experience. No international travel. No animal exposures. Has been to multiple tertiary [facility]'s Smoking Status: Never smoker Past Alcohol Use History: None Reported Past Drug Use History: None Reported - Past Family History Mother Family Medical History: Diabetes Mellitus Father Additional Family Medical History / Comment(s): brain anuerysm Medications and Allergies Home Medications Medication Instructions Recorded Confirmed Type Simvastatin [Zocor] 20 mg PO HS 07/18/14 09/14/24 History Primidone 75 mg PO BID 07/23/22 09/14/24 History allopurinoL [Zyloprim] 300 mg PO DAILY 07/23/22 09/14/24 History busPIRone HCl [Buspar] 5 mg PO BID 07/23/22 09/14/24 History Apixaban [Eliquis] 5 mg PO BID tab 08/04/22 09/14/24 Rx Carbidopa-Levodopa 25-100 mg 1 tab PO TID-W/MEALS 09/14/23 09/14/24 History [Sinemet 25-100 mg] Escitalopram Oxalate [Lexapro] 10 mg PO DAILY 09/14/23 09/14/24 History Cyanocobalamin (Vitamin B-12) 1,000 mcg PO DAILY 02/27/24 09/14/24 History [Vitamin B-12] Docusate [Colace] 100 mg PO DAILY 02/27/24 09/14/24 History Levothyroxine Sodium [Synthroid] 75 mcg PO AC-BRKFST 02/27/24 09/14/24 History Losartan Potassium 50 mg PO DAILY 02/27/24 09/14/24 History Nitroglycerin Sl Tabs [Nitrostat] 0.4 mg SUBLINGUAL Q5M PRN 02/27/24 09/14/24 History Simethicone 180 mg PO ACHS PRN 02/27/24 09/14/24 History polyethylene glycoL 3350 [Miralax] 17 gm PO DAILY PRN 02/27/24 09/14/24 History Metoprolol Succinate (ER) [Toprol 50 mg PO BID tab 03/05/24 09/14/24 Rx XL] Acetaminophen Tab [Tylenol] 500 mg PO Q6H PRN 06/03/24 09/14/24 History Amiodarone [Cordarone] 100 mg PO DAILY 06/03/24 09/14/24 History Bumetanide [BUMEX] 2 mg PO BID 06/03/24 09/14/24 History Calcium Carbonate [Calcium] 1,200 mg PO HS 06/03/24 09/14/24 History Denosumab [Prolia] 60 mg SQ Q180D 06/03/24 09/14/24 History Insulin Glargine,Hum.rec.anlog 20 units SQ HS PRN 06/03/24 09/14/24 History [Lantus Solostar Pen] Insulin Glargine,Hum.rec.anlog 36 units SQ DAILY 06/03/24 09/14/24 History [Lantus Solostar Pen] Potassium Chloride ER [K-Dur 20] 20 meq PO DAILY 06/03/24 09/14/24 History Insulin Lispro [humaLOG Kwikpen] 6 - 10 unit SQ AC-BID@0900,1300 09/14/24 09/14/24 History Insulin Lispro [humaLOG Kwikpen] 8 unit SQ W/SUPPER 09/14/24 09/14/24 History Allergies Allergy/AdvReac Type Severity Reaction Status Date / Time gabapentin AdvReac Hallucinati Verified 09/14/24 18:03 ons Physical Exam Vitals: Vital Signs Temp Pulse Resp BP BP Pulse Ox 09/16/24 09:47 117/78 09/16/24 08:40 186/71 09/16/24 07:15 98.2 F 71 17 194/85 91 L 09/16/24 01:09 59 L 18 09/16/24 00:40 97.7 F 61 20 173/72 99 09/15/24 21:48 59 L 18 09/15/24 19:16 98.5 F 59 L 18 134/70 93 L 09/15/24 14:37 98.2 F 58 L 17 161/60 95 Intake and Output 09/15/24 09/16/24 09/16/24 22:59 06:59 14:59 Output Total 650 100 Balance -650 -100 Output: Urine 650 100 Other: Voiding Method External Catheter External Catheter Patient is awake, comfortable, confused, no acute distress Examination of the heart S1 and S2 Examination of the lungs shows bilateral breath sounds are heard Abdomen is soft nontender Examination of lower extremity shows no significant edema Patient is moving all 4 extremities but she is confused. Results - Lab Results Most recent lab results Calcium 10.5 mg/dL (8.7-10.3) H 09/16/24 04:29 Magnesium 1.9 mg/dL (1.5-2.4) 09/16/24 04:29 09/14/24 17:34 09/16/24 04:29 Assessment and Plan Assessment: 1. Acute kidney injury most likely ATN, rule out urine retention 2. Chronic kidney disease stage IV with baseline creatinine 2 to 2.5 mg/dL but serum creatinine as low as 1.8 in July 2024. Etiology is nephrosclerosis. UA is benign. Ultrasound of the kidneys on 02/28/2024 did not show any significant obstructive uropathy. 3. Generalized weakness and falls. Underlying history of Parkinson's disease 4. History of CHF with ejection fraction 20 to 25%. Clinically not in heart failure currently. 5. Paroxysmal A-fib Plan: Agree with discontinuation of angiotensin receptor blockers. Hold Bumex Repeat labs in a.m. Check bladder scan rule out urine retention Will likely resume IV fluids if renal function is worse tomorrow Thank you for the consultation. We will continue to follow the patient with you during her hospitalization.
[2024-09-16] MEDS: PIPERACILLIN-TAZOBACTAM 3.375 GM in SODIUM CHLORIDE 0.9% 100 ML IVPB SCH (13:16)
[2024-09-16 13:21] LABS: Basophils % (A) 0 %; Eosinophils # (A) 0.1 k/uL (0-0.7); Eosinophils % (A) 1 %; HCT 35.8 % (34.0-46.0); HGB 11.1 gm/dL (11.4-16.0); Hypochromasia Moderate; Lymphocytes # (A) 0.5 k/uL (1.0-4.8); Lymphocytes % (A) 4 %; MCH 30.5 pg (25.0-35.0); MCV 98.4 fL (80.0-100.0); Mean Platelet Volume 7.6; Monocytes # (A) 0.6 k/uL (0-1.0); Monocytes % (A) 6 %; Neutrophils # (A) 9.5 k/uL (1.3-7.7); Neutrophils % (A) 88 %; Platelet Count 240 k/uL (150-450); RBC 3.64 m/uL (3.80-5.40); RDW 13.3 % (11.5-15.5); WBC 10.7 k/uL (3.8-10.6)
--- NOTE | 2024-09-16 13:38 | US ---
EXAMINATION TYPE: US kidneys/renal and bladder DATE OF EXAM: 09/16/2024 COMPARISON: CT 07/11/2024 CLINICAL INDICATION: Female, 79 years old with history of TERRENCE; TERRENCE, lesions seen on CT TECHNIQUE: Grayscale imaging of the bilateral kidneys and urinary bladder: FINDINGS: EXAM MEASUREMENTS: Right Kidney: 7.1 x 4.3 x 4.1 cm Left Kidney: 8.5 x 4.7 x 5.1 cm *Patient has Parkinson's and is shaking throughout exam while coughing. Suboptimal exam due to these reasons. Right Kidney: cortical thinning and small in size Left Kidney: cortical thinning Bladder: wnl IMPRESSION: Findings suggestive for chronic renal failure The abnormality identified on CT not evident on the current examination which has limitation. Conside r follow-up with CT or MRI. [facility], , 09/16/2024 1:36 PM
[2024-09-16 17:41] LABS: Glucose,Whole Blood 165 mg/dL (70-110)
[2024-09-16 20:42] LABS: Glucose,Whole Blood 150 mg/dL (70-110)
[2024-09-17 05:28] LABS: Glucose,Whole Blood 154 mg/dL (70-110)
[2024-09-17 07:29] LABS: ALT 6 U/L (4-34); AST 31 U/L (14-36); African American GFR (CKD) 19 (>60 ml/min/1.73 sqM); Albumin 3.1 g/dL (3.5-5.0); Albumin/Globulin Ratio 1.1; Alkaline Phosphatase 65 U/L (38-126); Anion Gap 6 mmol/L; Blood Urea Nitrogen 59 mg/dL (7-17); Calcium 10.3 mg/dL (8.4-10.2); Carbon Dioxide 37 mmol/L (22-30); Chloride 100 mmol/L (98-107); Globulin 2.8 g/dL; Glucose 156 mg/dL (74-99); Non-African American GFR(CKD) 17 (>60 ml/min/1.73 sqM); Potassium 4.4 mmol/L (3.5-5.1); Sodium 143 mmol/L (137-145); Total Bilirubin 0.4 mg/dL (0.2-1.3); Total Protein 5.9 g/dL (6.3-8.2)
--- NOTE | 2024-09-17 09:22 | P.PN ---
Subjective Patient is seen in follow-up for acute kidney injury on chronic kidney disease and hypercalcemia. Calcium level trending down. Renal function fairly stable. Currently off IV fluids and diuretics. Poor historian. Vital signs are stable. General: No acute distress. HEENT: Head exam is unremarkable. LUNGS: No audible rhonchi or wheezes. HEART: Rate and Rhythm are regular. ABDOMEN: No distention. EXTREMITITES: No edema. Objective - Vital Signs Vital signs: Vital Signs Temp 98.5 F 09/17/24 07:00 Pulse 83 09/17/24 07:00 Resp 18 09/17/24 07:00 BP 146/61 09/17/24 07:00 Pulse Ox 91 L 09/17/24 08:40 FiO2 Intake & Output 09/16/24 09/17/24 09/17/24 18:59 06:59 18:59 Output Total 500 Balance -500 Output: Urine 500 Other: Voiding Method Bedside Commode Bedside Commode Diaper Diaper External Catheter External Catheter # Voids 2 - Labs CBC & Chem 7: 09/16/24 13:10 09/17/24 07:05 Labs: Abnormal Lab Results - Last 24 Hours (Table) 09/16/24 09/16/24 09/16/24 Range/Units 04:29 12:05 13:10 WBC 10.7 H (3.8-10.6) k/uL RBC 3.64 L (3.80-5.40) m/uL Hgb 11.1 L (11.4-16.0) gm/dL Neutrophils # 9.5 H (1.3-7.7) k/uL Lymphocytes # 0.5 L (1.0-4.8) k/uL Carbon Dioxide 34.3 H (21.6-31.8) mmol/L BUN 49.3 H (9.0-27.0) mg/dL Creatinine 2.6 H (0.6-1.5) mg/dL Est GFR (CKD-EPI) 18 L (>=60) Glucose (74-99) mg/dL POC Glucose (mg/dL) 183 H (70-110) mg/dL Calcium 10.5 H (8.7-10.3) mg/dL Total Protein (6.3-8.2) g/dL Albumin (3.5-5.0) g/dL 09/16/24 09/16/24 09/17/24 Range/Units 17:39 20:40 05:26 WBC (3.8-10.6) k/uL RBC (3.80-5.40) m/uL Hgb (11.4-16.0) gm/dL Neutrophils # (1.3-7.7) k/uL Lymphocytes # (1.0-4.8) k/uL Carbon Dioxide (21.6-31.8) mmol/L BUN (9.0-27.0) mg/dL Creatinine (0.6-1.5) mg/dL Est GFR (CKD-EPI) (>=60) Glucose (74-99) mg/dL POC Glucose (mg/dL) 165 H 150 H 154 H (70-110) mg/dL Calcium (8.7-10.3) mg/dL Total Protein (6.3-8.2) g/dL Albumin (3.5-5.0) g/dL 09/17/24 Range/Units 07:05 WBC (3.8-10.6) k/uL RBC (3.80-5.40) m/uL Hgb (11.4-16.0) gm/dL Neutrophils # (1.3-7.7) k/uL Lymphocytes # (1.0-4.8) k/uL Carbon Dioxide 37 H (21.6-31.8) mmol/L BUN 59 H (9.0-27.0) mg/dL Creatinine 2.67 H (0.6-1.5) mg/dL Est GFR (CKD-EPI) (>=60) Glucose 156 H (74-99) mg/dL POC Glucose (mg/dL) (70-110) mg/dL Calcium 10.3 H (8.7-10.3) mg/dL Total Protein 5.9 L (6.3-8.2) g/dL Albumin 3.1 L (3.5-5.0) g/dL Microbiology - Last 24 Hours (Table) 09/14/24 17:30 Blood Culture - Preliminary Blood 09/14/24 17:15 Blood Culture - Preliminary Blood Assessment and Plan Plan: Assessment: 1. Acute kidney injury secondary to ATN secondary to hypercalcemia. Creatinine 2.35 on admission and is 2.67 today. No hydronephrosis noted on kidney ultrasound. Both kidneys atrophic. UA benign. 2. Chronic kidney disease stage IV with baseline creatinine 2-2.5 secondary to nephrosclerosis. 3. Hypercalcemia secondary to calcium supplementation. Improving. 4. Cardiomyopathy ejection fraction of 20 to 25%. 5. Generalized weakness. 6. History of A-fib maintained on amiodarone and anticoagulation. 7. Diabetes mellitus. Plan: Continue to hold ARB and diuretics. Avoid nephrotoxins. Encouraged oral intake. Continue to monitor renal function and urine output. Calcium supplementation discontinued. Check parathyroid, vitamin D level, serum electrophoresis.
[2024-09-17 11:54] LABS: Glucose,Whole Blood 143 mg/dL (70-110)
[2024-09-17 17:28] LABS: Glucose,Whole Blood 151 mg/dL (70-110)
[2024-09-17 17:59] LABS: Protein, Total 5.6 g/dL (6.2-8.2)
[2024-09-17 20:09] LABS: Glucose,Whole Blood 213 mg/dL (70-110)
[2024-09-17 20:28] LABS: Glucose,Whole Blood 180 mg/dL (70-110)
--- NOTE | 2024-09-17 22:43 | P.PN ---
Subjective Progress Note Date: 09/17/24 79-year-old female came in with complaints of generalized weakness shakiness and believed that her potassium is low. Her potassium here is within normal limits patient does have history of Parkinson's patient is shaking more than usual. I had a lengthy discussion with the daughter patient has been excessively sleepy more shaky and has been weak and her legs are giving up. All the workup here is negative except for worsening of creatinine from her baseline of around 1.9-2.4. Patient was believed to be dehydrated and was started on IV fluids in ER. Patient does have extensive cardiac history including congestive heart failure EF of around 20 to 25% it appears to have been improved lately. Patient is presently not volume overloaded I do not have any BNP available but chest x-ray did not show any infiltrate or congestive heart failure. Patient is laying flat or any orthopnea paroxysmal nocturnal dyspnea. Patient has EKG essentially within normal limits patient had 2 sets of troponins which are slightly elevated but at flat at 0.035 in the secondary to congestive heart failure and chronic kidney disease. 09/16/2024 Patient is more confused today and lethargic because of which CT of the head was repeated again by the on-call. Patient is bit more volume overloaded patient was resumed on Bumex. Patient agitation is secondary to hospitalization. Patient does not have any fever at this time creatinine went up to 2.6 nephrology will be consulted baseline is around 1.8. 09/17/2024 Patient evaluated today in follow up on the medical floor. AO x 2. Calcium remains elevated at 10.3, parathyroid hormone 16.6. BUN 59 creatinine 2.67. Review of Systems Constitutional: Denied any fatigue denied any fever. Cardio vascular: denied any chest pain, palpitations Gastrointestinal: denied any nausea, vomiting, diarrhea Pulmonary: Denied any shortness of breath cough Neurologic denied any new focal deficits All inpatient medications were reviewed and appropriate changes in these med ications as dictated in the interval history and assessment and plan. PHYSICAL EXAMINATION: GENERAL: The patient is alert and oriented x2, not in any acute distress. Well developed, well nourished. Patient does have tremor HEENT: Pupils are round and equally reacting to light. EOMI. No scleral icterus. No conjunctival pallor. Normocephalic, atraumatic. No pharyngeal erythema. No thyromegaly. CARDIOVASCULAR: S1 and S2 present. No murmurs, rubs, or gallops. PULMONARY: Chest is clear to auscultation, no wheezing or crackles. ABDOMEN: Soft, nontender, nondistended, normoactive bowel sounds. No palpable organomegaly. MUSCULOSKELETAL: No joint swelling or deformity. EXTREMITIES: No cyanosis, clubbing, or pedal edema. NEUROLOGICAL: Gross neurological examination did not reveal any focal deficits. Patient has significant generalized weakness and muscle atrophy in bilateral lower extremities. SKIN: No rashes. Assessment and plan -Generalized weakness and falls: Secondary to advancing Parkinson's and multiple other medical problems -Acute on chronic kidney disease stage IV: Acute renal failure was probably secondary to excessive diuresis -Hypercalcemia secondary to calcium supplementation, hypercalcemia attributing to TERRENCE -Altered mental status secondary to hospitalization. -Hallucinations possibility of parkinsonian dementia will use a very low-dose of Seroquel on an as-needed basis -Parkinson's with extensive tremor resumed on carbidopa and primidone further titration of medications as an outpatient -Type 2 diabetes mellitus -Hyperlipidemia -Hypertension -Rheumatoid arthritis -Congestive heart failure chronic systolic dysfunction EF of around 20 to 25% without any acute exacerbation on admission but mild acute exacerbation now will be resumed on Bumex -Paroxysmal atrial fibrillation for which patient on anticoagulation which was resumed and the patient is on amiodarone DVT prophylaxis: On anticoagulation as an outpatient which was resumed Full Code Plan Monitor renal function. PT/OT consult pending. The impression and plan of care has been dictated by Viviana Petty, Nurse Practitioner as directed. Dr. Roberto MD I have performed a history and physical examination and medical decision making of this patient, discussed the same with the dictator, and agree with the dictators assessment and plan as written, documented as a scribe. Based on total visit time, I have performed more than 50% of this visit. Objective - Vital Signs Vital signs: Vital Signs Temp 98.5 F 09/17/24 07:00 Pulse 83 09/17/24 07:00 Resp 18 09/17/24 07:00 BP 146/61 09/17/24 07:00 Pulse Ox 91 L 09/17/24 08:40 FiO2 Intake & Output 09/16/24 09/17/24 09/17/24 18:59 06:59 18:59 Output Total 500 Balance -500 Output: Urine 500 Other: Voiding Method Bedside Commode Bedside Commode Diaper Diaper External Catheter External Catheter # Voids 2 - Labs CBC & Chem 7: 09/16/24 13:10 09/17/24 07:05 Labs: Abnormal Lab Results - Last 24 Hours (Table) 09/16/24 09/16/24 09/16/24 Range/Units 04:29 12:05 13:10 WBC 10.7 H (3.8-10.6) k/uL RBC 3.64 L (3.80-5.40) m/uL Hgb 11.1 L (11.4-16.0) gm/dL Neutrophils # 9.5 H (1.3-7.7) k/uL Lymphocytes # 0.5 L (1.0-4.8) k/uL Carbon Dioxide 34.3 H (21.6-31.8) mmol/L BUN 49.3 H (9.0-27.0) mg/dL Creatinine 2.6 H (0.6-1.5) mg/dL Est GFR (CKD-EPI) 18 L (>=60) Glucose (74-99) mg/dL POC Glucose (mg/dL) 183 H (70-110) mg/dL Calcium 10.5 H (8.7-10.3) mg/dL Total Protein (6.3-8.2) g/dL Albumin (3.5-5.0) g/dL 09/16/24 09/16/24 09/17/24 Range/Units 17:39 20:40 05:26 WBC (3.8-10.6) k/uL RBC (3.80-5.40) m/uL Hgb (11.4-16.0) gm/dL Neutrophils # (1.3-7.7) k/uL Lymphocytes # (1.0-4.8) k/uL Carbon Dioxide (21.6-31.8) mmol/L BUN (9.0-27.0) mg/dL Creatinine (0.6-1.5) mg/dL Est GFR (CKD-EPI) (>=60) Glucose (74-99) mg/dL POC Glucose (mg/dL) 165 H 150 H 154 H (70-110) mg/dL Calcium (8.7-10.3) mg/dL Total Protein (6.3-8.2) g/dL Albumin (3.5-5.0) g/dL 09/17/24 Range/Units 07:05 WBC (3.8-10.6) k/uL RBC (3.80-5.40) m/uL Hgb (11.4-16.0) gm/dL Neutrophils # (1.3-7.7) k/uL Lymphocytes # (1.0-4.8) k/uL Carbon Dioxide 37 H (21.6-31.8) mmol/L BUN 59 H (9.0-27.0) mg/dL Creatinine 2.67 H (0.6-1.5) mg/dL Est GFR (CKD-EPI) (>=60) Glucose 156 H (74-99) mg/dL POC Glucose (mg/dL) (70-110) mg/dL Calcium 10.3 H (8.7-10.3) mg/dL Total Protein 5.9 L (6.3-8.2) g/dL Albumin 3.1 L (3.5-5.0) g/dL Microbiology - Last 24 Hours (Table) 09/14/24 17:30 Blood Culture - Preliminary Blood 09/14/24 17:15 Blood Culture - Preliminary Blood Assessment and Plan Time with Patient: Less than 30
[2024-09-18 06:17] LABS: Glucose,Whole Blood 113 mg/dL (70-110)
[2024-09-18 09:18] LABS: ALT <5 U/L (8-44); AST 31 U/L (13-35); Albumin 2.9 g/dL (3.8-4.9); Albumin/Globulin Ratio 1.32 Ratio (1.60-3.17); Alkaline Phosphatase 54 U/L (41-126); BUN/Creat Ratio 19.37 Ratio (12.00-20.00); Blood Urea Nitrogen 52.3 mg/dL (9.0-27.0); Calcium 9.5 mg/dL (8.7-10.3); Carbon Dioxide 32.1 mmol/L (21.6-31.8); Chloride 104 mmol/L (96-109); Globulin 2.2 g/dL (1.6-3.3); Glucose 104 mg/dL (70-110); Magnesium 2.1 mg/dL (1.5-2.4); Potassium 3.7 mmol/L (3.5-5.5); Sodium 146 mmol/L (135-145); Total Bilirubin 0.3 mg/dL (0.3-1.2); Total Protein 5.1 g/dL (6.2-8.2)
--- NOTE | 2024-09-18 11:27 | P.PN ---
Subjective Patient is seen in follow-up for acute kidney injury on chronic kidney disease and hypercalcemia. Calcium level trending down. Renal function fairly stable. Currently off IV fluids and diuretics. Mentation better today. Vital signs are stable. General: No acute distress. HEENT: Head exam is unremarkable. LUNGS: No audible rhonchi or wheezes. HEART: Rate and Rhythm are regular. ABDOMEN: No distention. EXTREMITITES: Trace edema. Objective - Vital Signs Vital signs: Vital Signs Temp 97.6 F 09/18/24 08:00 Pulse 63 09/18/24 08:00 Resp 15 09/18/24 08:00 BP 181/60 09/18/24 08:00 Pulse Ox 91 L 09/18/24 08:00 FiO2 Intake & Output 09/17/24 09/18/24 09/18/24 18:59 06:59 18:59 Output Total 900 200 Balance -900 -200 Output: Urine 900 200 Other: Voiding Method Bedside Commode Indwelling Catheter Diaper External Catheter # Voids 400 - Labs CBC & Chem 7: 09/16/24 13:10 09/18/24 05:45 Labs: Abnormal Lab Results - Last 24 Hours (Table) 09/17/24 09/17/24 09/17/24 Range/Units 09:45 11:51 17:26 Sodium (135-145) mmol/L Carbon Dioxide (21.6-31.8) mmol/L BUN (9.0-27.0) mg/dL Creatinine (0.6-1.5) mg/dL Est GFR (CKD-EPI) (>=60) POC Glucose (mg/dL) 143 H 151 H (70-110) mg/dL ALT (8-44) U/L Total Protein (6.2-8.2) g/dL Total Protein (PEP) 5.6 L (6.2-8.2) g/dL Albumin (3.8-4.9) g/dL Albumin/Globulin Ratio (1.60-3.17) Ratio 09/17/24 09/17/24 09/18/24 Range/Units 20:08 20:26 05:45 Sodium 146 H (135-145) mmol/L Carbon Dioxide 32.1 H (21.6-31.8) mmol/L BUN 52.3 H (9.0-27.0) mg/dL Creatinine 2.7 H (0.6-1.5) mg/dL Est GFR (CKD-EPI) 18 L (>=60) POC Glucose (mg/dL) 213 H 180 H (70-110) mg/dL ALT <5 L (8-44) U/L Total Protein 5.1 L (6.2-8.2) g/dL Total Protein (PEP) (6.2-8.2) g/dL Albumin 2.9 L (3.8-4.9) g/dL Albumin/Globulin Ratio 1.32 L (1.60-3.17) Ratio 09/18/24 Range/Units 06:09 Sodium (135-145) mmol/L Carbon Dioxide (21.6-31.8) mmol/L BUN (9.0-27.0) mg/dL Creatinine (0.6-1.5) mg/dL Est GFR (CKD-EPI) (>=60) POC Glucose (mg/dL) 113 H (70-110) mg/dL ALT (8-44) U/L Total Protein (6.2-8.2) g/dL Total Protein (PEP) (6.2-8.2) g/dL Albumin (3.8-4.9) g/dL Albumin/Globulin Ratio (1.60-3.17) Ratio Microbiology - Last 24 Hours (Table) 09/14/24 17:30 Blood Culture - Preliminary Blood 09/14/24 17:15 Blood Culture - Preliminary Blood Assessment and Plan Plan: Assessment: 1. Acute kidney injury secondary to ATN secondary to hypercalcemia. Creatinine 2.35 on admission and is 2.7 today. No hydronephrosis noted on kidney ultrasound. Both kidneys atrophic. UA benign. 2. Chronic kidney disease stage IV with baseline creatinine 2-2.5 secondary to nephrosclerosis. 3. Hypercalcemia secondary to calcium supplementation. Improving. PTH low at 16.6. Vitamin D level 30.4. 4. Cardiomyopathy ejection fraction of 20 to 25%. 5. Generalized weakness. 6. History of A-fib maintained on amiodarone and anticoagulation. 7. Diabetes mellitus. 8. Mild hypernatremia. Plan: Continue to hold ARB and diuretics. Avoid nephrotoxins. Encouraged oral intake, including free water. Continue to monitor renal function and urine output. Continue to hold calcium supplements. Follow-up pending workup for hypercalcemia.
[2024-09-18 11:32] VITALS: BMI 33.9
[2024-09-18 13:04] LABS: Glucose,Whole Blood 150 mg/dL (70-110)
[2024-09-18 17:52] LABS: Glucose,Whole Blood 166 mg/dL (70-110)
--- NOTE | 2024-09-18 20:00 | P.PN ---
Subjective Progress Note Date: 09/18/24 79-year-old female came in with complaints of generalized weakness shakiness and believed that her potassium is low. Her potassium here is within normal limits patient does have history of Parkinson's patient is shaking more than usual. I had a lengthy discussion with the daughter patient has been excessively sleepy more shaky and has been weak and her legs are giving up. All the workup here is negative except for worsening of creatinine from her baseline of around 1.9-2.4. Patient was believed to be dehydrated and was started on IV fluids in ER. Patient does have extensive cardiac history including congestive heart failure EF of around 20 to 25% it appears to have been improved lately. Patient is presently not volume overloaded I do not have any BNP available but chest x-ray did not show any infiltrate or congestive heart failure. Patient is laying flat or any orthopnea paroxysmal nocturnal dyspnea. Patient has EKG essentially within normal limits patient had 2 sets of troponins which are slightly elevated but at flat at 0.035 in the secondary to congestive heart failure and chronic kidney disease. 09/16/2024 Patient is more confused today and lethargic because of which CT of the head was repeated again by the on-call. Patient is bit more volume overloaded patient was resumed on Bumex. Patient agitation is secondary to hospitalization. Patient does not have any fever at this time creatinine went up to 2.6 nephrology will be consulted baseline is around 1.8. 09/17/2024 Patient evaluated today in follow up on the medical floor. AO x 2. Calcium remains elevated at 10.3, parathyroid hormone 16.6. BUN 59 creatinine 2.67. 09/18/2024 Patient evaluated in follow up. Sitting up in the bed she is more awake and alert than yesterday. Patients labs today reveal sodium 146, potassium 3.7, BUN 52.3, creatinine 2.7, magnesium 2.1. Remains off calcium supplementation. Contin ues on IV zosyn Review of Systems Constitutional: Denied any fatigue denied any fever. Cardio vascular: denied any chest pain, palpitations Gastrointestinal: denied any nausea, vomiting, diarrhea Pulmonary: Denied any shortness of breath cough Neurologic denied any new focal deficits All inpatient medications were reviewed and appropriate changes in these medications as dictated in the interval history and assessment and plan. PHYSICAL EXAMINATION: GENERAL: The patient is alert and oriented x2, not in any acute distress. Well developed, well nourished. Patient does have tremor HEENT: Pupils are round and equally reacting to light. EOMI. No scleral icterus. No conjunctival pallor. Normocephalic, atraumatic. No pharyngeal erythema. No thyromegaly. CARDIOVASCULAR: S1 and S2 present. No murmurs, rubs, or gallops. PULMONARY: Chest is clear to auscultation, no wheezing or crackles. ABDOMEN: Soft, nontender, nondistended, normoactive bowel sounds. No palpable organomegaly. MUSCULOSKELETAL: No joint swelling or deformity. EXTREMITIES: No cyanosis, clubbing, or pedal edema. NEUROLOGICAL: Gross neurological examination did not reveal any focal deficits. Patient has significant generalized weakness and muscle atrophy in bilateral lower extremities. SKIN: No rashes. Assessment and plan -Generalized weakness and falls: Secondary to advancing Parkinson's and multiple other medical problems -Acute on chronic kidney disease stage IV: Acute renal failure was probably secondary to excessive diuresis -Hypercalcemia secondary to calcium supplementation, hypercalcemia attributing to TERRENCE -Altered mental status secondary to hospitalization. -Hallucinations possibility of parkinsonian dementia will use a very low-dose of Seroquel on an as-needed basis -Parkinson's with extensive tremor resumed on carbidopa and primidone further titration of medications as an outpatient -Type 2 diabetes mellitus -Hyperlipidemia -Hypertension -Rheumatoid arthritis -Congestive heart failure chronic systolic dysfunction EF of around 20 to 25% without any acute exacerbation on admission but mild acute exacerbation now will be resumed on Bumex -Paroxysmal atrial fibrillation for which patient on anticoagulation which was resumed and the patient is on amiodarone DVT prophylaxis: On anticoagulation as an outpatient which was resumed Full Code Plan Monitor renal function. PT/OT consult pending. Auth pending for [facility]. social work following. The impression and plan of care has been dictated by Viviana Petty, Nurse Practitioner as directed. Dr. Roberto MD I have performed a history and physical examination and medical decision making of this patient, discussed the same with the dictator, and agree with the dictators assessment and plan as written, documented as a scribe. Based on total visit time, I have performed more than 50% of this visit. Objective - Vital Signs Vital signs: Vital Signs Temp 98.0 F 09/18/24 14:00 Pulse 59 L 09/18/24 14:00 Resp 18 09/18/24 14:00 BP 142/74 09/18/24 14:00 Pulse Ox 98 09/18/24 14:00 FiO2 Intake & Output 09/18/24 09/18/24 09/19/24 06:59 18:59 06:59 Intake Total 50 Output Total 200 700 Balance -200 -650 Weight 95.254 kg Intake: Oral 50 Output: Urine 200 700 Other: Voiding Method Indwelling Catheter Indwelling Catheter # Voids 400 - Labs CBC & Chem 7: 09/16/24 13:10 09/18/24 05:45 Labs: Abnormal Lab Results - Last 24 Hours (Table) 09/17/24 09/17/24 09/17/24 Range/Units 09:45 20:08 20:26 Sodium (135-145) mmol/L Carbon Dioxide (21.6-31.8) mmol/L BUN (9.0-27.0) mg/dL Creatinine (0.6-1.5) mg/dL Est GFR (CKD-EPI) (>=60) POC Glucose (mg/dL) 213 H 180 H (70-110) mg/dL ALT (8-44) U/L Total Protein (6.2-8.2) g/dL Albumin (3.8-4.9) g/dL Albumin/Globulin Ratio (1.60-3.17) Ratio Vit D 1,25-Dihydroxy 6 L (20 - 79) pg/mL 09/18/24 09/18/24 09/18/24 Range/Units 05:45 06:09 13:03 Sodium 146 H (135-145) mmol/L Carbon Dioxide 32.1 H (21.6-31.8) mmol/L BUN 52.3 H (9.0-27.0) mg/dL Creatinine 2.7 H (0.6-1.5) mg/dL Est GFR (CKD-EPI) 18 L (>=60) POC Glucose (mg/dL) 113 H 150 H (70-110) mg/dL ALT <5 L (8-44) U/L Total Protein 5.1 L (6.2-8.2) g/dL Albumin 2.9 L (3.8-4.9) g/dL Albumin/Globulin Ratio 1.32 L (1.60-3.17) Ratio Vit D 1,25-Dihydroxy (20 - 79) pg/mL 09/18/24 Range/Units 17:45 Sodium (135-145) mmol/L Carbon Dioxide (21.6-31.8) mmol/L BUN (9.0-27.0) mg/dL Creatinine (0.6-1.5) mg/dL Est GFR (CKD-EPI) (>=60) POC Glucose (mg/dL) 166 H (70-110) mg/dL ALT (8-44) U/L Total Protein (6.2-8.2) g/dL Albumin (3.8-4.9) g/dL Albumin/Globulin Ratio (1.60-3.17) Ratio Vit D 1,25-Dihydroxy (20 - 79) pg/mL Microbiology - Last 24 Hours (Table) 09/14/24 17:30 Blood Culture - Preliminary Blood 09/14/24 17:15 Blood Culture - Preliminary Blood Assessment and Plan Time with Patient: Less than 30
[2024-09-18 21:04] LABS: Glucose,Whole Blood 136 mg/dL (70-110)
[2024-09-19 06:22] LABS: Glucose,Whole Blood 148 mg/dL (70-110)
[2024-09-19 10:25] LABS: BUN/Creat Ratio 16.93 Ratio (12.00-20.00); Blood Urea Nitrogen 47.4 mg/dL (9.0-27.0); Carbon Dioxide 29.8 mmol/L (21.6-31.8); Chloride 103 mmol/L (96-109); Glucose 141 mg/dL (70-110); Magnesium 1.9 mg/dL (1.5-2.4); Potassium 3.5 mmol/L (3.5-5.5); Sodium 143 mmol/L (135-145)
--- NOTE | 2024-09-19 11:37 | P.PN ---
Subjective Patient is seen in follow-up for acute kidney injury on chronic kidney disease and hypercalcemia. Calcium level trending down. Renal function fairly stable. Currently off IV fluids and diuretics. No active complaints except feels tired. Vital signs are stable. General: No acute distress. HEENT: Head exam is unremarkable. LUNGS: No audible rhonchi or wheezes. HEART: Rate and Rhythm are regular. ABDOMEN: No distention. EXTREMITITES: Trace edema. Objective - Vital Signs Vital signs: Vital Signs Temp 98.9 F 09/19/24 08:00 Pulse 71 09/19/24 08:00 Resp 18 09/19/24 08:00 BP 167/66 09/19/24 08:00 Pulse Ox 93 L 09/19/24 08:00 FiO2 Intake & Output 09/18/24 09/19/24 09/19/24 18:59 06:59 18:59 Intake Total 50 200 118 Output Total 700 475 Balance -650 -275 118 Weight 95.254 kg Intake: Intake, IV Titration 100 Amount Piperacillin-Tazobactam 3 100 .375 gm In Sodium Chloride 0.9% 100 ml @ 25 mls/hr IVPB Q12H [facility] Rx# :[id number] Oral 50 100 118 Output: Urine 700 475 Other: Voiding Method Indwelling Catheter Indwelling Catheter Indwelling Catheter # Bowel Movements 1 - Labs CBC & Chem 7: 09/16/24 13:10 09/19/24 06:04 Labs: Abnormal Lab Results - Last 24 Hours (Table) 09/17/24 09/18/24 09/18/24 Range/Units 09:45 13:03 17:45 BUN (9.0-27.0) mg/dL Creatinine (0.6-1.5) mg/dL Est GFR (CKD-EPI) (>=60) Glucose (70-110) mg/dL POC Glucose (mg/dL) 150 H 166 H (70-110) mg/dL Vit D 1,25-Dihydroxy 6 L (20 - 79) pg/mL 09/18/24 09/19/24 09/19/24 Range/Units 21:02 06:04 06:19 BUN 47.4 H (9.0-27.0) mg/dL Creatinine 2.8 H (0.6-1.5) mg/dL Est GFR (CKD-EPI) 17 L (>=60) Glucose 141 H (70-110) mg/dL POC Glucose (mg/dL) 136 H 148 H (70-110) mg/dL Vit D 1,25-Dihydroxy (20 - 79) pg/mL Assessment and Plan Plan: Assessment: 1. Acute kidney injury secondary to ATN secondary to hypercalcemia. Creatinine 2.35 on admission and is 2.8 today. No hydronephrosis noted on kidney ultrasound. Both kidneys atrophic. UA benign. 2. Chronic kidney disease stage IV with baseline creatinine 2-2.5 secondary to nephrosclerosis. 3. Hypercalcemia secondary to calcium supplementation. Improving. PTH low at 16.6. Vitamin D level 30.4. 125 D3 level 6. 4. Cardiomyopathy ejection fraction of 20 to 25%. 5. Generalized weakness. 6. History of A-fib maintained on amiodarone and anticoagulation. 7. Diabetes mellitus. 8. Mild hypernatremia. Improved with better water intake. 9. Hypertension with chronic kidney disease. Plan: Continue to hold ARB and diuretics. Add amlodipine 5 mg once daily. Avoid nephrotoxins. Encouraged oral intake, including free water. Continue to monitor renal function and urine output. Continue to hold calcium supplements. Follow-up serum electrophoresis and immunofixation. Replace potassium.
[2024-09-19 12:23] LABS: Glucose,Whole Blood 228 mg/dL (70-110)
[2024-09-19] MEDS: POTASSIUM CHLORIDE ER 20 MEQ TAB.ER PO STA (13:32)
[2024-09-19] MEDS: amLODIPine 5 MG TAB PO SCH (13:32)
--- NOTE | 2024-09-19 14:39 | XR ---
EXAMINATION TYPE: XR chest 2V DATE OF EXAM: 09/19/2024 2:05 PM COMPARISON: Chest radiographs from 09/16/2024. CLINICAL INDICATION: Female, 79 years old with history of hypoxia; TECHNIQUE: XR chest 2V Frontal and lateral views of the chest. FINDINGS: Lungs/Pleura: There is no evidence of pleural effusion, focal consolidation, or pneumothorax. Pulmonary vascularity: Unremarkable. Heart/mediastinum: Cardiomediastinal silhouette is enlarged and stable. Atherosclerotic calcificatio ns are seen in the aorta. Musculoskeletal: No acute osseous pathology. IMPRESSION: Cardiomegaly, pulmonary vascular congestion and bilateral pleural effusions. Correlate with BNP for c ongestive heart failure. [facility], , 09/19/2024 2:37 PM
[2024-09-19 15:43] LABS: Albumin 2.81 g/dL (3.80-4.90)
--- NOTE | 2024-09-19 16:41 | CDI ---
Documentation Clarification Form Date: 09/19/2024 04:29:19 PM From: Abeba Martinez RN, CCDS Email: [email or web address] Admit Date: 09/16/2024 10:35:00 AM Patient Name: Luisa Umaña Visit Number: [id number] Discharge Date: ATTENTION: The Clinical Documentation Specialists (CDI) and [facility] Coding Staff appreciate your assistance in clarifying documentation. Please respond to the clarification below the line at the bottom and electronically sign. The CDI & [facility] Coding staff will review the response and follow-up if needed. Please note: Queries are made part of the Legal Health Record. If you have any questions, please contact the author of this message via ITS. Doctor Demi Mejia The patient is receiving IV Zosyn. Please clarify what condition/diagnosis is being treated. History/Risk Factors: CHF, DM, HLD, HTN, pneumonia, RA and Parkinson's. Presented with weakness, increased shaking. Admitted with weakness from advancing Parkinson's, acute on chronic kidney disease and hypercalcemia Clinical indicators: 09/14 ED: "Empiric antibiotic pending cultures but no obvious infection." 09/14 UA: cloudy, small leukocyte esterase WBC 4, rare bacteria 09/16 CXR: Mild bibasilar infiltrates 09/18 IM: "Continues on IV Zosyn." 09/19 CXR: Cardiomegaly, pulmonary vascular congestion and bilateral pleural effusions. Correlate with BNP for congestive heart failure. Treatment: IV Rocephin 2gm x1 on 09/14; IV Zosyn 3.375gm Q12H 09/16-present What diagnosis are you treating with IV antibiotics? [ ] Pneumonia [ ] UTI [x ] No additional diagnosis [ ] Other, please specify [ ] Unable to determine MTDD
[2024-09-19 17:33] LABS: Glucose,Whole Blood 153 mg/dL (70-110)
[2024-09-19 20:29] LABS: Glucose,Whole Blood 185 mg/dL (70-110)
--- NOTE | 2024-09-19 21:13 | P.PN ---
Subjective Progress Note Date: 09/19/24 79-year-old female came in with complaints of generalized weakness shakiness and believed that her potassium is low. Her potassium here is within normal limits patient does have history of Parkinson's patient is shaking more than usual. I had a lengthy discussion with the daughter patient has been excessively sleepy more shaky and has been weak and her legs are giving up. All the workup here is negative except for worsening of creatinine from her baseline of around 1.9-2.4. Patient was believed to be dehydrated and was started on IV fluids in ER. Patient does have extensive cardiac history including congestive heart failure EF of around 20 to 25% it appears to have been improved lately. Patient is presently not volume overloaded I do not have any BNP available but chest x-ray did not show any infiltrate or congestive heart failure. Patient is laying flat or any orthopnea paroxysmal nocturnal dyspnea. Patient has EKG essentially within normal limits patient had 2 sets of troponins which are slightly elevated but at flat at 0.035 in the secondary to congestive heart failure and chronic kidney disease. 09/16/2024 Patient is more confused today and lethargic because of which CT of the head was repeated again by the on-call. Patient is bit more volume overloaded patient was resumed on Bumex. Patient agitation is secondary to hospitalization. Patient does not have any fever at this time creatinine went up to 2.6 nephrology will be consulted baseline is around 1.8. 09/17/2024 Patient evaluated today in follow up on the medical floor. AO x 2. Calcium remains elevated at 10.3, parathyroid hormone 16.6. BUN 59 creatinine 2.67. 09/18/2024 Patient evaluated in follow up. Sitting up in the bed she is more awake and alert than yesterday. Patients labs today reveal sodium 146, potassium 3.7, BUN 52.3, creatinine 2.7, magnesium 2.1. Remains off calcium supplementation. Contin ues on IV zosyn 09/19/2023 Patient is evaluated in follow up on the medical floor. She is awake alert and oriented. Patient with fair oral intake does require assistance from staff. Having some abdominal pain but does report feeling better after having bowel movement. Patient require 4L of oxygen via nasal cannula chest xray was done revealing cardiomegaly, pulmonary vascular congestion, and bilateral pleural effusions. BUN 47.4, creatinine 2.8., magnesium 1.9, calcium 9.0. Review of Systems Constitutional: Denied any fatigue denied any fever. Cardio vascular: denied any chest pain, palpitations Gastrointestinal: denied any nausea, vomiting, diarrhea Pulmonary: Denied any shortness of breath cough Neurologic denied any new focal deficits All inpatient medications were reviewed and appropriate changes in these medications as dictated in the interval history and assessment and plan. PHYSICAL EXAMINATION: GENERAL: The patient is alert and oriented x2, not in any acute distress. Well developed, well nourished. Patient does have tremor HEENT: Pupils are round and equally reacting to light. EOMI. No scleral icterus. No conjunctival pallor. Normocephalic, atraumatic. No pharyngeal erythema. No thyromegaly. CARDIOVASCULAR: S1 and S2 present. No murmurs, rubs, or gallops. PULMONARY: Chest is clear to auscultation, no wheezing or crackles. ABDOMEN: Soft, nontender, nondistended, normoactive bowel sounds. No palpable organomegaly. MUSCULOSKELETAL: No joint swelling or deformity. EXTREMITIES: No cyanosis, clubbing, or pedal edema. NEUROLOGICAL: Gross neurological examination did not reveal any focal deficits. Patient has significant generalized weakness and muscle atrophy in bilateral lower extremities. SKIN: No rashes. Assessment and plan -Generalized weakness and falls: Secondary to advancing Parkinson's and multiple other medical problems -Acute on chronic kidney disease stage IV: Acute renal failure was probably secondary to excessive diuresis -Hypercalcemia secondary to calcium supplementation, hypercalcemia attributing to TERRENCE -Altered mental status secondary to hospitalization. -Hallucinations possibility of parkinsonian dementia will use a very low-dose of Seroquel on an as-needed basis -Parkinson's with extensive tremor resumed on carbidopa and primidone further titration of medications as an outpatient -Type 2 diabetes mellitus -Hyperlipidemia -Hypertension -Rheumatoid arthritis -Congestive heart failure chronic systolic dysfunction EF of around 20 to 25% without any acute exacerbation on admission but mild acute exacerbation bumex has been held due to the renal dysfunction. Patient remains hypoxic and chest xray showing vascular congestion. BNP will be checked if elevated consider resuming diuretics and will discuss with nephrology. -Paroxysmal atrial fibrillation for which patient on anticoagulation which was resumed and the patient is on amiodarone DVT prophylaxis: On anticoagulation as an outpatient which was resumed Full Code Plan Monitor renal function. PT/OT consult pending. Auth pending for [facility]. social work following. Check BNP. The impression and plan of care has been dictated by Viviana Petty, Nurse Practitioner as directed. Dr. Roberto MD I have performed a history and physical examination and medical decision making of this patient, discussed the same with the dictator, and agree with the dictators assessment and plan as written, documented as a scribe. Based on total visit time, I have performed more than 50% of this visit. Objective - Vital Signs Vital signs: Vital Signs Temp 97.6 F 09/19/24 14:00 Pulse 86 09/19/24 16:00 Resp 16 09/19/24 16:00 BP 164/72 09/19/24 16:00 Pulse Ox 95 09/19/24 14:00 FiO2 Intake & Output 09/19/24 09/19/24 09/20/24 06:59 18:59 06:59 Intake Total 200 592 Output Total 475 250 Balance -275 342 Intake: Intake, IV Titration 100 Amount Piperacillin-Tazobactam 3 100 .375 gm In Sodium Chloride 0.9% 100 ml @ 25 mls/hr IVPB Q12H [facility] Rx# :[id number] Oral 100 592 Output: Urine 475 250 Other: Voiding Method Indwelling Catheter Indwelling Catheter # Bowel Movements 1 2 - Labs CBC & Chem 7: 09/16/24 13:10 09/19/24 06:04 Labs: Abnormal Lab Results - Last 24 Hours (Table) 09/17/24 09/19/24 09/19/24 Range/Units 09:45 06:04 06:19 BUN 47.4 H (9.0-27.0) mg/dL Creatinine 2.8 H (0.6-1.5) mg/dL Est GFR (CKD-EPI) 17 L (>=60) Glucose 141 H (70-110) mg/dL POC Glucose (mg/dL) 148 H (70-110) mg/dL Albumin (PEP) 2.81 L (3.80-4.90) g/dL 09/19/24 09/19/24 09/19/24 Range/Units 12:21 17:32 20:27 BUN (9.0-27.0) mg/dL Creatinine (0.6-1.5) mg/dL Est GFR (CKD-EPI) (>=60) Glucose (70-110) mg/dL POC Glucose (mg/dL) 228 H 153 H 185 H (70-110) mg/dL Albumin (PEP) (3.80-4.90) g/dL Assessment and Plan Time with Patient: Less than 30
[2024-09-20 06:05] LABS: Glucose,Whole Blood 142 mg/dL (70-110)
[2024-09-20] MEDS: ACETAMINOPHEN TAB 325 MG TAB PO PRN (09:44)
[2024-09-20 10:47] LABS: Magnesium 1.9 mg/dL (1.5-2.4)
--- NOTE | 2024-09-20 10:56 | P.PN ---
Subjective Patient is seen in follow-up for acute kidney injury on chronic kidney disease and hypercalcemia. Calcium level trending down. Renal function fairly stable as of yesterday. Currently off IV fluids and diuretics. Vital signs are stable. General: No acute distress. HEENT: Head exam is unremarkable. LUNGS: No audible rhonchi or wheezes. HEART: Rate and Rhythm are regular. ABDOMEN: No distention. EXTREMITITES: Trace edema. Objective - Vital Signs Vital signs: Vital Signs Temp 98.6 F 09/20/24 07:20 Pulse 61 09/20/24 07:20 Resp 14 09/20/24 08:00 BP 170/69 09/20/24 07:20 Pulse Ox 96 09/20/24 07:20 FiO2 Intake & Output 09/19/24 09/20/24 09/20/24 18:59 06:59 18:59 Intake Total 592 Output Total 250 75 Balance 342 -75 Intake: Oral 592 Output: Urine 250 75 Other: Voiding Method Indwelling Catheter External Catheter External Catheter # Bowel Movements 2 - Labs CBC & Chem 7: 09/16/24 13:10 09/19/24 06:04 Labs: Abnormal Lab Results - Last 24 Hours (Table) 09/17/24 09/19/24 09/19/24 Range/Units 09:45 12:21 17:32 POC Glucose (mg/dL) 228 H 153 H (70-110) mg/dL Albumin (PEP) 2.81 L (3.80-4.90) g/dL 09/19/24 09/20/24 Range/Units 20:27 06:04 POC Glucose (mg/dL) 185 H 142 H (70-110) mg/dL Albumin (PEP) (3.80-4.90) g/dL Microbiology - Last 24 Hours (Table) 09/14/24 17:30 Blood Culture - Final Blood 09/14/24 17:15 Blood Culture - Final Blood Assessment and Plan Plan: Assessment: 1. Acute kidney injury secondary to ATN secondary to hypercalcemia. Creatinine 2.35 on admission -2.8 yesterday. No hydronephrosis noted on kidney ultrasound. Both kidneys atrophic. UA benign. 2. Chronic kidney disease stage IV with baseline creatinine 2-2.5 secondary to nephrosclerosis. 3. Hypercalcemia secondary to calcium supplementation. Improving. PTH low at 16.6. Vitamin D level 30.4. 125 D3 level 6. Serum immunofixation negative. 4. Cardiomyopathy ejection fraction of 20 to 25%. 5. Generalized weakness. 6. History of A-fib maintained on amiodarone and anticoagulation. 7. Diabetes mellitus. 8. Mild hypernatremia. Improved with better water intake. 9. Hypertension with chronic kidney disease. 10. Volume overload. Pleural effusions noted on chest x-ray. Plan: Add IV Lasix 40 mg once daily. Amlodipine added September 19, 2024. Avoid nephrotoxins. Encouraged oral intake. Continue to monitor renal function and urine output. Continue to hold calcium supplements. Replace electrolytes as needed.
[2024-09-20 11:01] LABS: Blood Urea Nitrogen 42.5 mg/dL (9.0-27.0); Calcium 8.8 mg/dL (8.7-10.3); Carbon Dioxide 29.5 mmol/L (21.6-31.8); Chloride 104 mmol/L (96-109); Glucose 150 mg/dL (70-110); Potassium 3.4 mmol/L (3.5-5.5); Sodium 145 mmol/L (135-145)
[2024-09-20] MEDS: FUROSEMIDE 10 MG/ML 4 ML VIAL IV SCH (11:34)
[2024-09-20] MEDS: hydrALAZINE HCL 20 MG/ML 1 ML VIAL IVP PRN (11:35)
[2024-09-20 12:03] LABS: Glucose,Whole Blood 164 mg/dL (70-110)
--- NOTE | 2024-09-20 15:06 | P.PN ---
Subjective Progress Note Date: 09/20/24 79-year-old female came in with complaints of generalized weakness shakiness and believed that her potassium is low. Her potassium here is within normal limits patient does have history of Parkinson's patient is shaking more than usual. I had a lengthy discussion with the daughter patient has been excessively sleepy more shaky and has been weak and her legs are giving up. All the workup here is negative except for worsening of creatinine from her baseline of around 1.9-2.4. Patient was believed to be dehydrated and was started on IV fluids in ER. Patient does have extensive cardiac history including congestive heart failure EF of around 20 to 25% it appears to have been improved lately. Patient is presently not volume overloaded I do not have any BNP available but chest x-ray did not show any infiltrate or congestive heart failure. Patient is laying flat or any orthopnea paroxysmal nocturnal dyspnea. Patient has EKG essentially within normal limits patient had 2 sets of troponins which are slightly elevated but at flat at 0.035 in the secondary to congestive heart failure and chronic kidney disease. 09/16/2024 Patient is more confused today and lethargic because of which CT of the head was repeated again by the on-call. Patient is bit more volume overloaded patient was resumed on Bumex. Patient agitation is secondary to hospitalization. Patient does not have any fever at this time creatinine went up to 2.6 nephrology will be consulted baseline is around 1.8. 09/17/2024 Patient evaluated today in follow up on the medical floor. AO x 2. Calcium remains elevated at 10.3, parathyroid hormone 16.6. BUN 59 creatinine 2.67. 09/18/2024 Patient evaluated in follow up. Sitting up in the bed she is more awake and alert than yesterday. Patients labs today reveal sodium 146, potassium 3.7, BUN 52.3, creatinine 2.7, magnesium 2.1. Remains off calcium supplementation. Contin ues on IV zosyn 09/19/2024 Patient is evaluated in follow up on the medical floor. She is awake alert and oriented. Patient with fair oral intake does require assistance from staff. Having some abdominal pain but does report feeling better after having bowel movement. Patient require 4L of oxygen via nasal cannula chest xray was done revealing cardiomegaly, pulmonary vascular congestion, and bilateral pleural effusions. BUN 47.4, creatinine 2.8., magnesium 1.9, calcium 9.0. 09/20/2024 She is evaluated in follow-up in the medical floor. Patient is awake alert and oriented. Patient has been requiring oxygen via nasal cannula at 4 L. proBNP was checked and mildly elevated at 2680. She has been started on IV Lasix daily with nephrology following closely. Stage II pressure injury evaluated at the bedside which appears to be healing and can continue to apply the zinc barrier paste twice a day and continue with pressure offloading. Labs today reveal a sodium level of 145, potassium 3.4, BUN of 42.5, creatinine of 2.5, he is a level 1.9. Patient does require insurance authorization for discharge which was started today. Review of Systems Constitutional: Denied any fatigue denied any fever. Cardio vascular: denied any chest pain, palpitations Gastrointestinal: denied any nausea, vomiting, diarrhea Pulmonary: Denied any shortness of breath cough Neurologic denied any new focal deficits All inpatient medications were reviewed and appropriate changes in these medications as dictated in the interval history and assessment and plan. PHYSICAL EXAMINATION: GENERAL: The patient is alert and oriented x2, not in any acute distress. Well developed, well nourished. Patient does have tremor HEENT: Pupils are round and equally reacting to light. EOMI. No scleral icterus. No conjunctival pallor. Normocephalic, atraumatic. No pharyngeal erythema. No thyromegaly. CARDIOVASCULAR: S1 and S2 present. No murmurs, rubs, or gallops. PULMONARY: Chest is clear to auscultation, no wheezing or crackles. ABDOMEN: Soft, nontender, nondistended, normoactive bowel sounds. No palpable organomegaly. MUSCULOSKELETAL: No joint swelling or deformity. EXTREMITIES: No cyanosis, clubbing, or pedal edema. NEUROLOGICAL: Gross neurological examination did not reveal any focal deficits. Patient has significant generalized weakness and muscle atrophy in bilateral lower extremities. SKIN: No rashes. Assessment and plan -Acute hypoxemic respiratory failure secondary to a combination of acute CHF exacerbation as well as concern for aspiration pneumonia/infiltrates noted on chest x-ray. Pneumonia has been ruled out and procalcitonin normal IV Zosyn can be discontinued. -Generalized weakness and falls: Secondary to advancing Parkinson's and multiple other medical problems -Acute on chronic kidney disease stage IV: Acute renal failure combination of diuresis as well as hypercalcemia and ATN -Hypercalcemia secondary to calcium supplementation, hypercalcemia attributing to TERRENCE -Altered mental status secondary to hospitalization. -Hallucinations possibility of parkinsonian dementia will use a very low-dose of Seroquel on an as-needed basis -Parkinson's with extensive tremor resumed on carbidopa and primidone further titration of medications as an outpatient -Type 2 diabetes mellitus -Hyperlipidemia -Hypertension -Rheumatoid arthritis -Congestive heart failure chronic systolic dysfunction EF of around 20 to 25% without any acute exacerbation on admission but mild acute exacerbation bumex has been held due to the renal dysfunction. Patient remains hypoxic and chest xray showing vascular congestion. Started on IV Lasix 40 mg daily and will monitor renal function closely. -Paroxysmal atrial fibrillation for which patient on anticoagulation which was resumed and the patient is on amiodarone -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 DVT prophylaxis: On anticoagulation as an outpatient which was resumed Full Code Plan Monitor renal function. PT/OT consult pending. Auth pending for [facility]. social work following. Patient is been started on IV Lasix daily by nephrology and will continue to monitor renal function closely and wean oxygen as tolerated. The impression and plan of care has been dictated by Viviana Petty, Nurse Practitioner as directed. Dr. Roberto MD I have performed a history and physical examination and medical decision making of this patient, discussed the same with the dictator, and agree with the dictators assessment and plan as written, documented as a scribe. Based on total visit time, I have performed more than 50% of this visit. Objective - Vital Signs Vital signs: Vital Signs Temp 98.3 F 09/20/24 14:40 Pulse 61 09/20/24 14:40 Resp 14 09/20/24 14:40 BP 142/68 09/20/24 14:40 Pulse Ox 91 L 09/20/24 14:40 FiO2 Intake & Output 09/19/24 09/20/24 09/20/24 18:59 06:59 18:59 Intake Total 592 Output Total 250 75 200 Balance 342 -75 -200 Intake: Oral 592 Output: Urine 250 75 200 Other: Voiding Method Indwelling Catheter External Catheter External Catheter # Voids 1 # Bowel Movements 2 1 - Labs CBC & Chem 7: 09/16/24 13:10 09/20/24 06:50 Labs: Abnormal Lab Results - Last 24 Hours (Table) 09/17/24 09/19/24 09/19/24 Range/Units 09:45 17:32 20:27 Potassium (3.5-5.5) mmol/L BUN (9.0-27.0) mg/dL Creatinine (0.6-1.5) mg/dL Est GFR (CKD-EPI) (>=60) Glucose (70-110) mg/dL POC Glucose (mg/dL) 153 H 185 H (70-110) mg/dL Albumin (PEP) 2.81 L (3.80-4.90) g/dL 09/20/24 09/20/24 09/20/24 Range/Units 06:04 06:50 12:02 Potassium 3.4 L (3.5-5.5) mmol/L BUN 42.5 H (9.0-27.0) mg/dL Creatinine 2.5 H (0.6-1.5) mg/dL Est GFR (CKD-EPI) 19 L (>=60) Glucose 150 H (70-110) mg/dL POC Glucose (mg/dL) 142 H 164 H (70-110) mg/dL Albumin (PEP) (3.80-4.90) g/dL Microbiology - Last 24 Hours (Table) 09/14/24 17:30 Blood Culture - Final Blood 09/14/24 17:15 Blood Culture - Final Blood Assessment and Plan Time with Patient: Less than 30
[2024-09-20] MEDS: ONDANSETRON 4 MG/2 ML VIAL IVP PRN (16:00)
[2024-09-20 17:13] LABS: Glucose,Whole Blood 55 mg/dL (70-110)
[2024-09-20 17:38] LABS: Glucose,Whole Blood 92 mg/dL (70-110)
[2024-09-20] MEDS: POTASSIUM CHLORIDE ER 20 MEQ TAB.ER PO STA (18:41)
[2024-09-20 20:18] LABS: Glucose,Whole Blood 184 mg/dL (70-110)
[2024-09-20] MEDS: ZINC OXIDE PASTE (Z-GUARD) 1 APPLIC TOPICAL SCH (20:44)
[2024-09-21 05:51] LABS: Glucose,Whole Blood 74 mg/dL (70-110)
[2024-09-21 06:37] LABS: Glucose,Whole Blood 121 mg/dL (70-110)
[2024-09-21 07:49] VITALS: BP 144/69; PULSE 60; RESP 16; TEMP 98.4
[2024-09-21] MEDS ORDERED: DEXTROSE 50% SYRINGE 50 ML IVP PRN ×2 (08:38)
--- NOTE | 2024-09-21 10:01 | P.CONS ---
History of Present Illness - Reason for Consult Consult date: 09/21/24 wound care - History of Present Illness This is a 79-year-old patient being seen for reevaluation of wounds. Patient has a stage I pressure ulcer to the coccyx no open ulcerations excoriation and ecchymosis noted. Patient also had a dressing to the left upper back however there was no wound present. Patient does have history of Parkinson disease. Review Of Systems: Constitutional: No fever, no chills, no night sweats. No weight change. No weakness, fatigue or lethargy. No daytime sleepiness. Integumentary:reports wounds, no lesions. No rash or pruritus. No unusual bruising. No change in hair or nails. Physical exam: General Appearance: Alert, cooperative, no distress, appears stated age. Skin: See HPI all other Skin color, texture, tugor normal, no rashes or lesions. Neurologic: Alert oriented x3 Assessment: 1. Stage I pressure ulcer coccyx 2. Parkinson Plan: 1. Apply zinc barrier cream as needed no dressings to back or sacral region. Turn patient every 2 hours as needed. Utilize air-filled cushion when sitting. Thank you for the consultation any questions please contact the wound care lin ter DNP note has been reviewed and discussed with Dr. Richard and the impression and plan of care has been directed as dictated. Past Medical History Past Medical History: Heart Failure, Diabetes Mellitus, Hyperlipidemia, Hypertension, Pneumonia, Rheumatoid Arthritis (RA) Additional Past Medical History / Comment(s): tremors, renal lithiasis, hemorrhoids(sx done), "has had problems w/low magnesium.anemia. per spouse pt had past cancer "uterine or cervical-had hysterectomy". it was previously charted that pt had hx of ra and cfh spouse not able to verify this, History of Any Multi-Drug Resistant Organisms: ESBL Year Discovered:: 09/15/23 MDRO Source:: URINE Past Surgical History: Appendectomy, Hysterectomy, Orthopedic Surgery, Tonsillectomy Additional Past Surgical History / Comment(s): rt total knee repalcement, cataracts, hemmorroidectomy, colonoscopy Past Anesthesia/Blood Transfusion Reactions: No Reported Reaction Additional Past Anesthesia/Blood Transfusion Reaction / Comm: per psouse-pt never receieved any blood Past Psychological History: No Psychological Hx Reported Additional Psychological History / Comment(s): and was living in the family home under the care of the and family members. [employer] nonsmoker no alcohol use. No experience. No international travel. No animal exposures. Has been to multiple [facility] Smoking Status: Never smoker Past Alcohol Use History: None Reported Past Drug Use History: None Reported - Past Family History Mother Family Medical History: Diabetes Mellitus Father Additional Family Medical History / Comment(s): brain anuerysm Medications and Allergies Home Medications Medication Instructions Recorded Confirmed Type Simvastatin [Zocor] 20 mg PO HS 07/18/14 09/14/24 History Primidone 75 mg PO BID 07/23/22 09/14/24 History allopurinoL [Zyloprim] 300 mg PO DAILY 07/23/22 09/14/24 History busPIRone HCl [Buspar] 5 mg PO BID 07/23/22 09/14/24 History Apixaban [Eliquis] 5 mg PO BID tab 08/04/22 09/14/24 Rx Carbidopa-Levodopa 25-100 mg 1 tab PO TID-W/MEALS 09/14/23 09/14/24 History [Sinemet 25-100 mg] Escitalopram Oxalate [Lexapro] 10 mg PO DAILY 09/14/23 09/14/24 History Cyanocobalamin (Vitamin B-12) 1,000 mcg PO DAILY 02/27/24 09/14/24 History [Vitamin B-12] Docusate [Colace] 100 mg PO DAILY 02/27/24 09/14/24 History Levothyroxine Sodium [Synthroid] 75 mcg PO AC-BRKFST 02/27/24 09/14/24 History Losartan Potassium 50 mg PO DAILY 02/27/24 09/14/24 History Nitroglycerin Sl Tabs [Nitrostat] 0.4 mg SUBLINGUAL Q5M PRN 02/27/24 09/14/24 H istory Simethicone 180 mg PO ACHS PRN 02/27/24 09/14/24 History polyethylene glycoL 3350 [Miralax] 17 gm PO DAILY PRN 02/27/24 09/14/24 History Metoprolol Succinate (ER) [Toprol 50 mg PO BID tab 03/05/24 09/14/24 Rx XL] Acetaminophen Tab [Tylenol] 500 mg PO Q6H PRN 06/03/24 09/14/24 History Amiodarone [Cordarone] 100 mg PO DAILY 06/03/24 09/14/24 History Bumetanide [BUMEX] 2 mg PO BID 06/03/24 09/14/24 History Calcium Carbonate [Calcium] 1,200 mg PO HS 06/03/24 09/14/24 History Denosumab [Prolia] 60 mg SQ Q180D 06/03/24 09/14/24 History Insulin Glargine,Hum.rec.anlog 20 units SQ HS PRN 06/03/24 09/14/24 History [Lantus Solostar Pen] Insulin Glargine,Hum.rec.anlog 36 units SQ DAILY 06/03/24 09/14/24 History [Lantus Solostar Pen] Potassium Chloride ER [K-Dur 20] 20 meq PO DAILY 06/03/24 09/14/24 History Insulin Lispro [humaLOG Kwikpen] 6 - 10 unit SQ AC-BID@0900,1300 09/14/24 09/14/24 History Insulin Lispro [humaLOG Kwikpen] 8 unit SQ W/SUPPER 09/14/24 09/14/24 History Allergies Allergy/AdvReac Type Severity Reaction Status Date / Time gabapentin AdvReac Hallucinati Verified 09/14/24 18:03 ons Physical Exam Vitals: Vital Signs Temp Pulse Resp BP Pulse Ox 09/21/24 07:48 98.4 F 60 16 144/69 94 L 09/21/24 01:28 98.1 F 62 18 148/65 92 L 09/20/24 19:13 97.8 F 66 18 124/68 93 L 09/20/24 14:40 98.3 F 61 14 142/68 91 L 09/20/24 12:30 98.3 F 63 161/80 94 L Intake and Output 09/20/24 09/21/24 09/21/24 22:59 06:59 14:59 Intake Total 240 Output Total 25 200 Balance 215 -200 Intake: Oral 240 Output: Urine 25 200 Other: Voiding Method External Catheter # Bowel Movements 2 Results CBC & Chem 7: 09/16/24 13:10 09/20/24 06:50 Labs: Abnormal Lab Results - Last 24 Hours (Table) 09/20/24 09/20/2409/20/25 Range/Units 06:50 12:02 17:11 Potassium 3.4 L (3.5-5.5) mmol/L BUN 42.5 H (9.0-27.0) mg/dL Creatinine 2.5 H (0.6-1.5) mg/dL Est GFR (CKD-EPI) 19 L (>=60) Glucose 150 H (70-110) mg/dL POC Glucose (mg/dL) 164 H 55 L (70-110) mg/dL 09/20/24 09/21/24 Range/Units 20:14 06:35 Potassium (3.5-5.5) mmol/L BUN (9.0-27.0) mg/dL Creatinine (0.6-1.5) mg/dL Est GFR (CKD-EPI) (>=60) Glucose (70-110) mg/dL POC Glucose (mg/dL) 184 H 121 H (70-110) mg/dL Microbiology - Last 24 Hours (Table) 09/14/24 17:30 Blood Culture - Final Blood 09/14/24 17:15 Blood Culture - Final Blood Assessment and Plan (1) Stage 1 skin ulcer of sacral region Current Visit: Yes Status: Acute Code(s): L98.429 - NON-PRESSURE CHRONIC ULCER OF BACK WITH UNSPECIFIED SEVERITY SNOMED Code(s): 82060471 (2) Type 2 diabetes mellitus with other skin ulcer Current Visit: Yes Status: Acute Code(s): E11.622 - TYPE 2 DIABETES MELLITUS WITH OTHER SKIN ULCER; L98.499 - NON-PRESSURE CHRONIC ULCER OF SKIN OF SITES W UNSP SEVERITY SNOMED Code(s): 813261084267572
[2024-09-21 10:14] LABS: BUN/Creat Ratio 17.08 Ratio (12.00-20.00); Calcium 8.6 mg/dL (8.7-10.3); Carbon Dioxide 29.9 mmol/L (21.6-31.8); Chloride 106 mmol/L (96-109); Glucose 66 mg/dL (70-110); Potassium 3.8 mmol/L (3.5-5.5); Sodium 146 mmol/L (135-145)
[2024-09-21 10:20] LABS: Basophils # (A) 0.01 X 10*3/uL (0.00-0.10); Basophils % (A) 0.1 %; Eosinophils # (A) 0.25 X 10*3/uL (0.04-0.35); Eosinophils % (A) 3.4 %; HCT 32.7 % (37.2-46.3); HGB 9.9 g/dL (12.0-15.0); Lymphocytes # (A) 1.29 X 10*3/uL (0.90-5.00); Lymphocytes % (A) 17.5 %; MCH 30.3 pg (27.0-32.0); MCHC 30.3 g/dL (32.0-37.0); Mean Platelet Volume 10.8 FL (9.5-12.2); Monocytes # (A) 0.77 X 10*3/uL (0.20-1.00); Monocytes % (A) 10.4 %; NRBC Per 100 WBC 0 X 10*3/uL (0.00-0.01); Neutrophils # (A) 5.04 X 10*3/uL (1.80-7.70); Neutrophils % (A) 68.2 %; Platelet Count 217 X 10*3/uL (140-440); RBC 3.27 X 10*6/uL (4.10-5.20); WBC 7.39 X 10*3/uL (4.50-10.00)
--- NOTE | 2024-09-21 11:18 | P.PN ---
Subjective Patient is seen in follow-up for acute kidney injury on chronic kidney disease and hypercalcemia. Calcium level normal. Renal function stable. On IV Lasix. Vital signs are stable. General: No acute distress. HEENT: Head exam is unremarkable. On nasal cannula. LUNGS: No audible rhonchi or wheezes. HEART: Rate and Rhythm are regular. ABDOMEN: No distention. EXTREMITITES: Trace edema. Objective - Vital Signs Vital signs: Vital Signs Temp 98.4 F 09/21/24 07:48 Pulse 60 09/21/24 07:48 Resp 16 09/21/24 08:00 BP 144/69 09/21/24 07:48 Pulse Ox 94 L 09/21/24 07:48 FiO2 Intake & Output 09/20/24 09/21/24 09/21/24 18:59 06:59 18:59 Intake Total 240 200 Output Total 225 200 Balance 15 -200 200 Intake: Oral 240 200 Output: Urine 225 200 Other: Voiding Method External Catheter External Catheter External Catheter # Voids 1 1 # Bowel Movements 1 2 1 - Labs CBC & Chem 7: 09/21/24 05:01 09/21/24 05:01 Labs: Abnormal Lab Results - Last 24 Hours (Table) 09/20/24 09/20/24 09/20/24 Range/Units 12:02 17:11 20:14 RBC (4.10-5.20) X 10*6/uL Hgb (12.0-15.0) g/dL Hct (37.2-46.3) % MCV (80.0-97.0) FL MCHC (32.0-37.0) g/dL Sodium (135-145) mmol/L BUN (9.0-27.0) mg/dL Creatinine (0.6-1.5) mg/dL Est GFR (CKD-EPI) (>=60) Glucose (70-110) mg/dL POC Glucose (mg/dL) 164 H 55 L 184 H (70-110) mg/dL Calcium (8.7-10.3) mg/dL 09/21/24 09/21/24 09/21/24 Range/Units 05:01 05:01 06:35 RBC 3.27 L (4.10-5.20) X 10*6/uL Hgb 9.9 L (12.0-15.0) g/dL Hct 32.7 L (37.2-46.3) % MCV 100.0 H (80.0-97.0) FL MCHC 30.3 L (32.0-37.0) g/dL Sodium 146 H (135-145) mmol/L BUN 41.0 H (9.0-27.0) mg/dL Creatinine 2.4 H (0.6-1.5) mg/dL Est GFR (CKD-EPI) 20 L (>=60) Glucose 66 L (70-110) mg/dL POC Glucose (mg/dL) 121 H (70-110) mg/dL Calcium 8.6 L (8.7-10.3) mg/dL Assessment and Plan Plan: Assessment: 1. Acute kidney injury secondary to ATN secondary to hypercalcemia. Creatinine 2.35 on admission - peaked at 2.8 this admission and is 2.4 today. No hydronephrosis noted on kidney ultrasound. Both kidneys atrophic. UA benign. 2. Chronic kidney disease stage IV with baseline creatinine 2-2.5 secondary to nephrosclerosis. 3. Hypercalcemia secondary to calcium supplementation. Improving. PTH low at 16.6. Vitamin D level 30.4. 125 D3 level 6. Serum immunofixation negative. 4. Cardiomyopathy ejection fraction of 20 to 25%. 5. Generalized weakness. 6. History of A-fib maintained on amiodarone and anticoagulation. 7. Diabetes mellitus. 8. Mild hypernatremia due to free water diuresis and lack of oral water intake. 9. Hypertension with chronic kidney disease. 10. Volume overload. Pleural effusions noted on chest x-ray. Plan: Maintain IV Lasix. Transition to oral Bumex 1 mg twice daily upon discharge along with potassium supplementation. Amlodipine added September 19, 2024. Avoid nephrotoxins. Encouraged oral intake. Continue to monitor renal function and urine output. Continue to hold calcium supplements. Replace electrolytes as needed. Repeat BMP and magnesium level 2 to 3 days postdischarge. Follow-up outpatient in 1 week.
[2024-09-21 11:54] LABS: Glucose,Whole Blood 172 mg/dL (70-110)
--- NOTE | 2024-09-21 12:33 | P.DS ---
Providers Date of admission: 09/16/24 10:35 Expected date of discharge: 09/21/24 Attending physician: Evelio Duckworth Consults: 09/16/24 10:17 Consult Physician Routine Consulting Provider: Delia Ball Consult Reason/Comments: elevated labs Do you want consulting provider notified?: Yes Primary care physician: Alberto Lehman [facility] Course: Final diagnosis -Acute hypoxemic respiratory failure secondary to a combination of acute CHF exacerbation as well as concern for aspiration pneumonia/infiltrates noted on chest x-ray. Pneumonia has been ruled out, procalcitonin normal -Generalized weakness and falls: Secondary to advancing Parkinson's and multiple other medical problems -Acute on chronic kidney disease stage IV: Acute renal failure combination of diuresis as well as hypercalcemia and ATN -Hypercalcemia secondary to calcium supplementation, hypercalcemia attributing to TERRENCE -Altered mental status secondary to hospitalization. -Hallucinations possibility of parkinsonian dementia will use a very low-dose of Seroquel on an as-needed basis -Parkinson's with extensive tremor resumed on carbidopa and primidone further titration of medications as an outpatient -Type 2 diabetes mellitus, uncontrolled with hypo and hyperglycemia -Hyperlipidemia -Hypertension -Rheumatoid arthritis -Congestive heart failure chronic systolic dysfunction EF of around 20 to 25% wi thout any acute exacerbation on admission but mild acute exacerbation that is now improved -Paroxysmal atrial fibrillation for which patient on anticoagulation which was resumed and the patient is on amiodarone -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 -Obesity with a BMI of 33.9 DVT prophylaxis: On anticoagulation as an outpatient which was resumed GI prophylaxis Full Code Discharge disposition Patient is being discharged in a stable condition [facility] Patient will follow-up with Dr. Lehman in the outpatient setting upon discharge. Patient is to continue with current medications and outpatient follow-up with nephrology as scheduled. Total time taken is greater than 35 minutes. Hospital course This is a 79-year-old female who was recently admitted with with acute hypoxic respiratory failure multifactorial secondary to CHF exacerbation along with initial concerns of aspiration pneumonia with infiltrates noted on the x-ray. Pneumonia ruled out and procalcitonin was normal and patient did receive Zosyn initially which has been discontinued being monitored off antibiotic therapy. Patient also being followed with nephrology as patient has acute on chronic kidney disease secondary to diuresis as well as hypercalcemia with acute tubular necrosis. Recommend to continue holding calcium supplementation at this time and will follow-up with repeat CBC, CMP, magnesium in 2 to 3 days. Patient normally takes Bumex 2 mg twice daily and has been maintained on IV Lasix daily and discussed further with nephrology regarding resuming diuretics. Patient will continue Bumex 1 mg twice daily and recommend repeat labs as discussed previously. Patient will follow up and has a follow-up appointment with nephrology in October. Strongly recommend Cliff wraps to bilateral lower extremities from the toes up to the knees. Kidney functions are stable and improved currently at 2.4. Patient evaluated by wound care with a stage II pressure injury to the coccyx recommending zinc barrier cream and pressure offl oading with frequent position changes every 2 hours. Patient evaluated by physical therapy recommending rehab and patient and family are agreeable. Patient has been accepted at [facility] and insurance authorization is obtained. Patient will be going to [facility] today. Please refer to other consultation notes for further HPI. Currently no reports of chest pain, shortness of breath, or palpitations. Patient is afebrile. No reports of nausea or vomiting and patient is tolerating diet. Guarded prognosis and high risk for readmissions given significant comorbidities Physical exam: Gen: This is a 79 year old female who is awake, alert and oriented x 2, baseline, well-developed, elderly appearing, obese HEENT: Head is atraumatic, normocephalic. Pupils equal, round. Sclerae is anicteric. NECK: Supple. No JVD. No lymphadenopathy. No thyromegaly. LUNGS: Diminished breath sounds bilaterally otherwise clear to auscultation. No wheezes or rhonchi. No intercostal retractions. HEART: S1, S2 are muffled ABDOMEN: Soft. Bowel sounds are present. No masses. No tenderness. EXTREMITIES: No pedal edema. No calf tenderness. NEUROLOGICAL: Patient is awake, alert and oriented x to. Cranial nerves 2 through 12 are 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. Diffusely weak Please refer to medication reconciliation sheet for a list of medications. The impression and plan of care has been dictated by Maeve Lopez, Nurse Practitioner as directed. MD Anca I have performed a history and examination and MDM of this patient, discussed the same with the dictator, and agree with the dictator's assessment and plan as written ,documented as a scribe. Based on total visit time, I have performed more than 50% of the visit. Patient Condition at Discharge: Fair Plan - Discharge Summary Discharge Rx Participant: No New Discharge Prescriptions: New amLODIPine [Norvasc] 5 mg PO DAILY tab Famotidine [Pepcid] 20 mg PO Q2D@0900 tab QUEtiapine [SEROquel] 12.5 mg PO BID PRN tab PRN Reason: Agitation Insulin Detemir (Levemir) [Levemir] 10 unit SQ BID@0700,2100 each Atorvastatin [Lipitor] 10 mg PO HS tab Mag Hydrox/Al Hydrox/Simeth [Maalox] 15 ml PO Q6HR PRN ml PRN Reason: Indigestion INSULIN ASPART (NovoLOG) [NovoLOG (formulary)] 0 unit SQ ACHS each Bumetanide [Bumex] 1 mg PO BID #60 tablet Continue Primidone 75 mg PO BID Escitalopram Oxalate [Lexapro] 10 mg PO DAILY Levothyroxine Sodium [Synthroid] 75 mcg PO AC-BRKFST Nitroglycerin Sl Tabs [Nitrostat] 0.4 mg SUBLINGUAL Q5M PRN PRN Reason: Chest Pain Docusate [Colace] 100 mg PO DAILY Cyanocobalamin (Vitamin B-12) [Vitamin B-12] 1,000 mcg PO DAILY Simethicone 180 mg PO ACHS PRN PRN Reason: gas/bloating Metoprolol Succinate (ER) [Toprol XL] 50 mg PO BID tab Denosumab [Prolia] 60 mg SQ Q180D busPIRone HCl [Buspar] 5 mg PO BID Apixaban [Eliquis] 5 mg PO BID tab Carbidopa-Levodopa 25-100 mg [Sinemet 25-100 mg] 1 tab PO TID-W/MEALS polyethylene glycoL 3350 [Miralax] 17 gm PO DAILY PRN PRN Reason: Constipation Acetaminophen Tab [Tylenol] 500 mg PO Q6H PRN PRN Reason: Pain Or Fever > 100.5 Amiodarone [Cordarone] 100 mg PO DAILY Potassium Chloride ER [K-Dur 20] 20 meq PO DAILY Discontinued Simvastatin [Zocor] 20 mg PO HS Losartan Potassium 50 mg PO DAILY Bumetanide [BUMEX] 2 mg PO BID allopurinoL [Zyloprim] 300 mg PO DAILY Calcium Carbonate [Calcium] 1,200 mg PO HS Insulin Glargine,Hum.rec.anlog [Lantus Solostar Pen] 36 units SQ DAILY Insulin Glargine,Hum.rec.anlog [Lantus Solostar Pen] 20 units SQ HS PRN PRN Reason: IF blood sugar is >300 Insulin Lispro [humaLOG Kwikpen] 6 - 10 unit SQ AC-BID@0900,1300 Insulin Lispro [humaLOG Kwikpen] 8 unit SQ W/SUPPER Discharge Medication List Primidone 75 mg PO BID 07/23/22 [History] busPIRone HCl [Buspar] 5 mg PO BID 07/23/22 [History] Apixaban [Eliquis] 5 mg PO BID tab 08/04/22 [Rx] Carbidopa-Levodopa 25-100 mg [Sinemet 25-100 mg] 1 tab PO TID-W/MEALS 09/14/23 [History] Escitalopram Oxalate [Lexapro] 10 mg PO DAILY 09/14/23 [History] Cyanocobalamin (Vitamin B-12) [Vitamin B-12] 1,000 mcg PO DAILY 02/27/24 [History] Docusate [Colace] 100 mg PO DAILY 02/27/24 [History] Levothyroxine Sodium [Synthroid] 75 mcg PO AC-BRKFST 02/27/24 [History] Nitroglycerin Sl Tabs [Nitrostat] 0.4 mg SUBLINGUAL Q5M PRN 02/27/24 [History] Simethicone 180 mg PO ACHS PRN 02/27/24 [History] polyethylene glycoL 3350 [Miralax] 17 gm PO DAILY PRN 02/27/24 [History] Metoprolol Succinate (ER) [Toprol XL] 50 mg PO BID tab 03/05/24 [Rx] Acetaminophen Tab [Tylenol] 500 mg PO Q6H PRN 06/03/24 [History] Amiodarone [Cordarone] 100 mg PO DAILY 06/03/24 [History] Denosumab [Prolia] 60 mg SQ Q180D 06/03/24 [History] Potassium Chloride ER [K-Dur 20] 20 meq PO DAILY 06/03/24 [History] Atorvastatin [Lipitor] 10 mg PO HS tab 09/21/24 [Rx] Bumetanide [Bumex] 1 mg PO BID #60 tablet 09/21/24 [Rx] Famotidine [Pepcid] 20 mg PO Q2D@0900 tab 09/21/24 [Rx] INSULIN ASPART (NovoLOG) [NovoLOG (formulary)] 0 unit SQ ACHS each 09/21/24 [Rx] Insulin Detemir (Levemir) [Levemir] 10 unit SQ BID@0700,2100 each 09/21/24 [Rx] Mag Hydrox/Al Hydrox/Simeth [Maalox] 15 ml PO Q6HR PRN ml 09/21/24 [Rx] QUEtiapine [SEROquel] 12.5 mg PO BID PRN tab 09/21/24 [Rx] amLODIPine [Norvasc] 5 mg PO DAILY tab 09/21/24 [Rx] Follow up Appointment(s)/Referral(s): Alberto Lehman DO [Primary Care Provider] - 1-2 days Germán Chaudhary DO [STAFF PHYSICIAN] - 1 Week Ambulatory/Diagnostic Orders: Basic Metabolic Panel [LAB.AMB] Time Frame: 3 Days, Location: None Selected Activity/Diet/Wound Care/Special Instructions: Patient will be going to [facility] Activity as tolerated Continue with current medications Outpatient follow-up with primary care provider Follow-up with nephrology outpatient Repeat CBC, CMP, magnesium in 2 to 3 days Continue monitoring Accu-Cheks before meals and at bedtime and continue with sliding scale for now as blood sugars were lower and may resume long-acting's later once diet is improved NovoLog sliding scale 0-150 equals 0 units 151-200 equals 2 units 201-250 equals 4 units 251-300 equals 6 units 301-350 equals 8 units 351-400 equals 10 units Please notify provider if blood sugar is 400 or above Discharge Disposition: TRANSFER TO SNF/ECF
[2024-09-21] MEDS: INSULIN ASPART (NovoLOG) 100 UNIT/ML VIAL SQ SCH (12:59)
[2024-09-21] MEDS ORDERED: INSULIN DETEMIR (LEVEMIR) 100 UNIT/ML SYR SQ SCH (21:00)
== END 2024-09-21 14:45 | DRG 682 ==
LOC: EC 16:56 → 6NMEDSUR 22:41 → OBSVTOIN 09-16 10:35
PROVIDERS: ADMIT Hospitalist; ATTEND Hospitalist
DX: N17.0 Acute kidney failure with tubular necrosis (principal); I50.23 Acute on chronic systolic (congestive) heart failure; J96.01 Acute respiratory failure with hypoxia; I13.0 Hypertensive heart and chronic kidney disease with heart failure and stage 1 through stage 4 chronic kidney disease, or unspecified chronic kidney disease; E87.0 Hyperosmolality and hypernatremia; I42.9 Cardiomyopathy, unspecified; N18.4 Chronic kidney disease, stage 4 (severe); E86.0 Dehydration; E11.22 Type 2 diabetes mellitus with diabetic chronic kidney disease; E66.9 Obesity, unspecified; Z68.33 Body mass index [BMI] 33.0-33.9, adult; E11.622 Type 2 diabetes mellitus with other skin ulcer; E78.5 Hyperlipidemia, unspecified; E11.65 Type 2 diabetes mellitus with hyperglycemia; G20.A1 Parkinson's disease without dyskinesia, without mention of fluctuations; F02.80 Dementia in other diseases classified elsewhere, unspecified severity, without behavioral disturbance, psychotic disturbance, mood disturbance, and anxiety; E83.52 Hypercalcemia; I48.0 Paroxysmal atrial fibrillation; L89.152 Pressure ulcer of sacral region, stage 2; L98.499 Non-pressure chronic ulcer of skin of other sites with unspecified severity; M06.9 Rheumatoid arthritis, unspecified; R62.7 Adult failure to thrive; T50.2X5A Adverse effect of carbonic-anhydrase inhibitors, benzothiadiazides and other diuretics, initial encounter; Z79.01 Long term (current) use of anticoagulants; Z79.4 Long term (current) use of insulin; Z79.890 Hormone replacement therapy; Z79.899 Other long term (current) drug therapy; Z90.710 Acquired absence of both cervix and uterus
CPT/HCPCS: 36410; 36415; 70450; 71045; 71046; 76770; 76937; 80048; 80053; 80306; 81001; 82306; 82652; 83735; 83880; 83970; 84145; 84165; 84484; 85025; 85610; 85730; 86334; 87040; 87636; 93005; 94760; 96361; 96365; 99285

== ENCOUNTER → 2024-11-21 | Outpatient (CLI) | payer MEDICARE ==
[2024-11-21 21:00] LABS: ALT 13 U/L (8-44); AST 16 U/L (13-35); Albumin 3.3 g/dL (3.8-4.9); Albumin/Globulin Ratio 1.18 Ratio (1.60-3.17); Alkaline Phosphatase 86 U/L (41-126); BUN/Creat Ratio 27.47 Ratio (12.00-20.00); Blood Urea Nitrogen 46.7 mg/dL (9.0-27.0); Calcium 8.8 mg/dL (8.7-10.3); Carbon Dioxide 29.1 mmol/L (21.6-31.8); Chloride 108 mmol/L (96-109); Globulin 2.8 g/dL (1.6-3.3); Glucose 157 mg/dL (70-110); Magnesium 1.9 mg/dL (1.5-2.4); Phosphorus 4.3 mg/dL (2.4-5.1); Potassium 4.1 mmol/L (3.5-5.5); Sodium 147 mmol/L (135-145); Total Bilirubin <0.2 mg/dL (0.3-1.2); Total Protein 6.1 g/dL (6.2-8.2)
[2024-11-21 21:19] LABS: Basophils # (A) 0.01 X 10*3/uL (0.00-0.10); Basophils % (A) 0.1 %; Eosinophils # (A) 0.09 X 10*3/uL (0.04-0.35); HCT 35.2 % (37.2-46.3); HGB 10.6 g/dL (12.0-15.0); Lymphocytes # (A) 1.37 X 10*3/uL (0.90-5.00); Lymphocytes % (A) 15.1 %; MCH 29.5 pg (27.0-32.0); MCHC 30.1 g/dL (32.0-37.0); MCV 98.1 FL (80.0-97.0); Mean Platelet Volume 10.4 FL (9.5-12.2); Monocytes # (A) 0.75 X 10*3/uL (0.20-1.00); Monocytes % (A) 8.3 %; NRBC Per 100 WBC 0 X 10*3/uL (0.00-0.01); Neutrophils # (A) 6.82 X 10*3/uL (1.80-7.70); Neutrophils % (A) 75.1 %; Platelet Count 291 X 10*3/uL (140-440); RBC 3.59 X 10*6/uL (4.10-5.20); WBC 9.08 X 10*3/uL (4.50-10.00)
== END | disposition home or self-care (01) ==
LOC: LABWHC1 16:32
PROVIDERS: ATTEND Internal Medicine
DX: E55.9 Vitamin D deficiency, unspecified (principal); N17.9 Acute kidney failure, unspecified; N25.81 Secondary hyperparathyroidism of renal origin; D63.1 Anemia in chronic kidney disease; N18.9 Chronic kidney disease, unspecified; R73.9 Hyperglycemia, unspecified
CPT/HCPCS: 36415; 80053; 82306; 83036; 83735; 83970; 84100; 85025

== ENCOUNTER 2024-11-29 16:18 | Inpatient (IN) | payer MEDICARE ==
--- NOTE | 2024-11-29 17:27 | ED ---
General Adult HPI - General Chief complaint: Weakness Stated complaint: Weakness Time Seen by Provider: 11/29/24 16:38 Source: EMS Mode of arrival: EMS Limitations: no limitations - History of Present Illness Initial comments: Patient is a 79-year-old female past medical history Parkinson's, CHF, atrial fibrillation on Eliquis presenting today for generalized weakness. Patient presents with her caregiver and daughter at [facility] who provided vast majority of history. Patient went for a skin biopsy last Tuesday at her [employer] office and patient's daughter states they did wait in the waiting room for an extended period of time. patient began to have increasing weakness, not wanting to go to doctors appointment, due to generalized weakness not being able to get out of bed. Patient does typically ambulate with assistance has been too weak to walk over the course of the last week. Patient's caregiver monitors her pulse ox closely and 2 days ago noted patient's pulse ox to be 82% during the day. Patient does typically wear 2 L oxygen at night but does not require oxygen during the day. No history of COPD. Patient not had any fevers, no episodes of emesis, she did have 1 soft stool earlier today but otherwise no diarrhea, black or bloody stools. Patient has chronic abdominal pain but no new pain. Patient's caregiver states patient has not had any strokelike symptoms and is at baseline with the exception of her increased weakness. Patient has not any episodes of increased work of breathing/shortness of breath. She has not increased bilateral lower extremity swelling. Was recently on a course of oral antibiotics for toe infection that has improved. No recent falls. - Related Data Home Medications Medication Instructions Recorded Confirmed Primidone 75 mg PO BID 07/23/22 11/29/24 busPIRone HCl [Buspar] 5 mg PO BID 07/23/22 11/29/24 Carbidopa-Levodopa 25-100 mg 1 tab PO TID-W/MEALS 09/14/23 11/29/24 [Sinemet 25-100 mg] Escitalopram Oxalate [Lexapro] 10 mg PO DAILY 09/14/23 11/29/24 Cyanocobalamin (Vitamin B-12) 1,000 mcg PO DAILY 02/27/24 11/29/24 [Vitamin B-12] Docusate [Colace] 100 mg PO DAILY PRN 02/27/24 11/29/24 Levothyroxine Sodium [Synthroid] 75 mcg PO AC-BRKFST 02/27/24 11/29/24 Nitroglycerin Sl Tabs [Nitrostat] 0.4 mg SUBLINGUAL Q5M PRN 02/27/24 11/29/24 Simethicone 180 mg PO ACHS PRN 02/27/24 11/29/24 polyethylene glycoL 3350 [Miralax] 17 gm PO DAILY PRN 02/27/24 11/29/24 Acetaminophen Tab [Tylenol] 500 mg PO Q6H PRN 06/03/24 11/29/24 Amiodarone [Cordarone] 100 mg PO DAILY 06/03/24 11/29/24 Potassium Chloride ER [K-Dur 20] 20 meq PO DAILY 06/03/24 11/29/24 Bumetanide [BUMEX] 2 mg PO DAILY 11/29/24 11/29/24 Bumetanide [Bumex] 1 mg PO HS 11/29/24 11/29/24 Famotidine [Pepcid] 20 mg PO DAILY 11/29/24 11/29/24 Insulin Glargine,Hum.rec.anlog 20 units SQ HS PRN 11/29/24 11/29/24 [Lantus Solostar Pen] Insulin Glargine,Hum.rec.anlog 36 units SQ DAILY 11/29/24 11/29/24 [Lantus Solostar Pen] Insulin Lispro [humaLOG Kwikpen] See Protocol SQ TID-W/MEALS 11/29/24 11/29/24 Losartan [Cozaar] 50 mg PO DAILY 11/29/24 11/29/24 Simvastatin [Zocor] 10 mg PO HS 11/29/24 11/29/24 amLODIPine [Norvasc] 10 mg PO DAILY 11/29/24 11/29/24 Previous Rx's Medication Instructions Recorded Apixaban [Eliquis] 5 mg PO BID tab 08/04/22 Metoprolol Succinate (ER) [Toprol 50 mg PO BID tab 03/05/24 XL] Allergies Allergy/AdvReac Type Severity Reaction Status Date / Time gabapentin AdvReac Hallucinati Verified 11/29/24 16:33 ons Review of Systems ROS Statement: Those systems with pertinent positive or pertinent negative responses have been documented in the HPI. Limitations: ROS unobtainable due to patients medical condition Past Medical History Past Medical History: Heart Failure, Diabetes Mellitus, Hyperlipidemia, Hypertension, Pneumonia, Rheumatoid Arthritis (RA) Additional Past Medical History / Comment(s): tremors, renal lithiasis, hemorrhoids(sx done), "has had problems w/low magnesium.anemia. per spouse pt had past cancer "uterine or cervical-had hysterectomy". it was previously charted that pt had hx of ra and cfh spouse not able to verify this, History of Any Multi-Drug Resistant Organisms: ESBL Date of last positivie culture/infection: 09/15/23 MDRO Source:: URINE Past Surgical History: Appendectomy, Hysterectomy, Orthopedic Surgery, Tonsillectomy Additional Past Surgical History / Comment(s): rt total knee repalcement, cataracts, hemmorroidectomy, colonoscopy Past Anesthesia/Blood Transfusion Reactions: No Reported Reaction Additional Past Anesthesia/Blood Transfusion Reaction / Comment(s): per psouse- pt never receieved any blood Past Psychological History: No Psychological Hx Reported Smoking Status: Never smoker Past Alcohol Use History: None Reported Past Drug Use History: None Reported - Past Family History Mother Family Medical History: Diabetes Mellitus Father Additional Family Medical History / Comment(s): brain anuerysm General Exam - General Exam Comments Initial Comments: PE: CONSTITUTIONAL: No apparent distress, ill-appearing, nontoxic SKIN: Warm, dry, no jaundice, hives or petechiae, some generalized pallor EYES: Pupils are equally round, extraocular movements intact without nystagmus, clear conjunctiva, non-icteric sclera HENT: Normocephalic, atraumatic, moist mucus membranes, oropharynx clear without exudates NECK: , Full range of motion, normal appearance PULMONARY: Crackles in the bilateral lung bases, otherwise no wheezes, rhonchi, normal excursion, no accessory muscle use and no stridor CARDIOVASCULAR: Regular rate, rhythm, normal S1 and S2. No appreciated murmurs, rubs or gallops. Strong radial pulses with intact distal perfusion. 3+ bilateral lower extremity pitting edema GASTROINTESTINAL: Soft, active bowel sounds throughout, non-tender, non- distended, no palpable masses, no rebound or guarding. No hepatosplenomegaly MUSCULOSKELETAL: Extremities have no gross deformity NEUROLOGIC:_a/o x 3, GCS 15, patient is at baseline mentation and speech, speech is slowed however family states that this is patient's baseline when she becomes sick. Generalized weakness without any focal neurodeficits PSYCHIATRIC:_normal mood and affect, thought process is at baseline, able to speak in short sentances and answer questions regarding symptoms, brief history Limitations: no limitations Course Vital Signs 11/29/24 11/29/24 11/29/24 16:26 18:45 21:00 Temperature 97.7 F Pulse Rate 65 71 71 Respiratory 20 18 17 Rate Blood Pressure 167/69 121/68 135/79 O2 Sat by Pulse 93 L 97 97 Oximetry 11/29/24 22:37 Temperature Pulse Rate 60 Respiratory 18 Rate Blood Pressure 144/58 O2 Sat by Pulse 94 L Oximetry EKG Findings - EKG Comments: EKG Findings:: Sinus rhythm, there is significant limitation due to artifact, patient history Parkinson's prevents her from able to remain still, there is no obvious ST elevations or depressions, does appear to have left axis deviation,. EKG due to significant artifact on initial EKG, shows sinus bradycardia, rate 57 bpm KS interval 164 ms QT/QTc 431/424 ms, borderline left axis deviation, no arrhythmia, no significant ST elevations or depressions Medical Decision Making - Medical Decision Making Was pt. sent in by a medical professional or institution (JOSUÉ Carl, [employer] ATTEND[employer], urgent care, hospital, or detention...) When possible be specific @ -No Did you speak to anyone other than the patient for history (EMS, parent, family, police, friend...)? What history was obtained from this source @I spoke with patient's daughter and caregiver at bedside, caregiver states patient has had a pulse ox of 82% at home 2 days ago, does not typically reaction or Did you review nursing and triage notes (agree or disagree)? Why? @ -I reviewed nursing and triage notes Were old charts reviewed (outside hosp., previous admission, EMS record, old EKG, old radiological studies, urgent care reports/EKG's, detention records)? Report findings @ -Medical records reviewed-discharge summary fromFrom visit on 09/16/2024, patient was treated for acute hypoxemic respiratory failure due to CHF and aspiration pneumonia with infiltrates on chest x-ray but pneumonia was ruled out with a normal procalcitonin, generalized weakness at that time report Differential Diagnosis (chest pain, altered mental status, abdominal pain women, abdominal pain men, vaginal bleeding, weakness, fever, dyspnea, syncope, headache, dizziness, GI bleed, back pain, seizure, CVA, palpatations, mental health, musculoskeletal)? @Differential Weakness: Hypoglycemia, shock, sepsis, hyponatremia, anemia, infection, ACS, CHF exacerbation, myxedema coma, adverse medicine reaction, overdose, this is not meant to be an all-inclusive list. EKG interpreted by me (3pts min.). @ -As above X-rays interpreted by me (1pt min.). @ -Personally viewed chest x-ray, appears to show cardiomegaly with bilateral pleural effusions and pulmonary edema without focal consolidations, this was compared to x-ray performed on 09/19/2024, today's x-ray appears worsened from pr ior, cardiomegaly is more prominent, pulmonary edema appears more obvious CT interpreted by me (1pt min.). @ -None done U/S interpreted by me (1pt. min.). @ -None done What testing was considered but not performed or refused? (CT, X-rays, U/S, labs)? Why? @ -None What meds were considered but not given or refused? Why? @ -None Did you discuss the management of the patient with other professionals (professionals i.e. , PA, [employer] ATTENDANT, lab, RT, psych nurse, 7th grade social studies teacher, cartridge loader, teacher, [place] customs and border officer, hospice case manager)? Give summary @ -No Was smoking cessation discussed for >3mins.? @ -No Was critical care preformed (if so, how long)? @ -Yes 35 minutes Were there social determinants of health that impacted care today? How? (Homelessness, low income, unemployed, alcoholism, drug addiction, transpor tation, low edu. Level, literacy, decrease access to med. care, usp, rehab)? @ -No Was there de-escalation of care discussed even if they declined (Discuss DNR or withdrawal of care, Hospice)? @ -No What co-morbidities impacted this encounter? (DM, HTN, Smoking, COPD, CAD, Cancer, CVA, ARF, Chemo, Hep., AIDS, mental health diagnosis, sleep apnea, morbid obesity)? @ -Parkinson's, CHF, atrial fibrillation on Eliquis Was patient admitted / discharged? Hospital course, mention meds given and route , prescriptions, significant lab abnormalities, going to OR and other pertinent info. @Admission- 79-year-old female history of Parkinson's, CHF on Bumex, atrial fibrillation on Eliquis presenting with family for 1 week generalized weakness. Prior admission for similar due to CHF exacerbation. On my assessment patient is resting comfortably no acute distress she is ill-appearing. No increased work of breathing. Crackles in the bilateral lung exam. 3+ lower extremity pitting edema. Patient was removed from supplemental oxygen by myself, during exam and observation patient's pulse ox did decrease to 88% so she was placed back on 2 L oxygen nasal cannula, she is afebrile, blood pressure stable and no tachycardia she does not meet SIRS criteria at this point. Will plan for broad evaluation and anticipate admission. BNP elevated, otherwise labs are reassuring. Presentation consistent with CHF exacerbation. Patient was given 2 mg IV Bumex. Updated pt and family to findings and plan for admission. Case was discussed with Dr. Middleton who kindly excepted patient for admission Undiagnosed new problem with uncertain prognosis? @ -No Drug Therapy requiring intensive monitoring for toxicity (Heparin, Nitro, Insulin, Cardizem)? @ -No Were any procedures done? @ -No Diagnosis/symptom? Acute CHF exacerbation Acute, or Chronic, or Acute on Chronic? @ acute Uncomplicated (without systemic symptoms) or Complicated (systemic symptoms)? @ complicated Side effects of treatment? @ -No Exacerbation, Progression, or Severe Exacerbation? @Exacerbation Poses a threat to life or bodily function? How? (Chest pain, USA, PR, pneumonia, PE, COPD, DKA, ARF, appy, cholecystitis, CVA, Diverticulitis, Homicidal, Suicidal, threat to staff... and all critical care pts) @Yes - Lab Data Result diagrams: 11/30/24 00:00 11/30/24 00:00 Lab Results 11/29/24 11/29/24 11/29/24 Range/Units 17:21 17:21 17:21 WBC 7.2 (3.8-10.6) k/uL RBC 3.56 L (3.80-5.40) m/uL Hgb 10.5 L (11.4-16.0) gm/dL Hct 34.5 (34.0-46.0) % MCV 96.9 (80.0-100.0) fL MCH 29.5 (25.0-35.0) pg MCHC 30.4 L (31.0-37.0) g/dL RDW 14.0 (11.5-15.5) % Plt Count 197 (150-450) k/uL MPV 7.5 Neutrophils % 70 % Lymphocytes % 18 % Monocytes % 7 % Eosinophils % 3 % Basophils % 0 % Neutrophils # 5.0 (1.3-7.7) k/uL Lymphocytes # 1.3 (1.0-4.8) k/uL Monocytes # 0.5 (0-1.0) k/uL Eosinophils # 0.2 (0-0.7) k/uL Basophils # 0.0 (0-0.2) k/uL Hypochromasia Marked PT 10.4 (10.0-12.5) sec INR 0.9 (<1.2) APTT 24.5 (22.0-30.0) sec Sodium 142 (137-145) mmol/L Potassium 4.4 (3.5-5.1) mmol/L Chloride 104 (98-107) mmol/L Carbon Dioxide 31 H (22-30) mmol/L Anion Gap 7 mmol/L BUN 58 H (7-17) mg/dL Creatinine 1.88 H (0.52-1.04) mg/dL Est GFR (CKD-EPI)AfAm 29 (>60 ml/min/1.73 sqM) Est GFR (CKD-EPI)NonAf 25 (>60 ml/min/1.73 sqM) Glucose 98 (74-99) mg/dL Plasma Lactic Acid Woo (0.7-2.0) mmol/L Calcium 8.8 (8.4-10.2) mg/dL Ionized Calcium Nahid 4.9 (4.5-5.3) mg/dL Phosphorus 5.7 H (2.5-4.5) mg/dL Magnesium 2.2 (1.6-2.3) mg/dL Total Bilirubin 0.3 (0.2-1.3) mg/dL AST 14 (14-36) U/L ALT 8 (4-34) U/L Alkaline Phosphatase 82 (38-126) U/L Troponin I (0.000-0.034) ng/mL NT-Pro-B Natriuret Pep 1620 pg/mL Total Protein 5.9 L (6.3-8.2) g/dL Albumin 3.1 L (3.5-5.0) g/dL TSH 6.790 H (0.465-4.680) mIU/L Free T4 1.59 (0.78-2.19) ng/dL 11/29/24 11/29/24 Range/Units 17:21 17:21 WBC (3.8-10.6) k/uL RBC (3.80-5.40) m/uL Hgb (11.4-16.0) gm/dL Hct (34.0-46.0) % MCV (80.0-100.0) fL MCH (25.0-35.0) pg MCHC (31.0-37.0) g/dL RDW (11.5-15.5) % Plt Count (150-450) k/uL MPV Neutrophils % % Lymphocytes % % Monocytes % % Eosinophils % % Basophils % % Neutrophils # (1.3-7.7) k/uL Lymphocytes # (1.0-4.8) k/uL Monocytes # (0-1.0) k/uL Eosinophils # (0-0.7) k/uL Basophils # (0-0.2) k/uL Hypochromasia PT (10.0-12.5) sec INR (<1.2) APTT (22.0-30.0) sec Sodium (137-145) mmol/L Potassium (3.5-5.1) mmol/L Chloride (98-107) mmol/L Carbon Dioxide (22-30) mmol/L Anion Gap mmol/L BUN (7-17) mg/dL Creatinine (0.52-1.04) mg/dL Est GFR (CKD-EPI)AfAm (>60 ml/min/1.73 sqM) Est GFR (CKD-EPI)NonAf (>60 ml/min/1.73 sqM) Glucose (74-99) mg/dL Plasma Lactic Acid Woo 1.0 (0.7-2.0) mmol/L Calcium (8.4-10.2) mg/dL Ionized Calcium Nahid (4.5-5.3) mg/dL Phosphorus (2.5-4.5) mg/dL Magnesium (1.6-2.3) mg/dL Total Bilirubin (0.2-1.3) mg/dL AST (14-36) U/L ALT (4-34) U/L Alkaline Phosphatase (38-126) U/L Troponin I 0.015 (0.000-0.034) ng/mL NT-Pro-B Natriuret Pep pg/mL Total Protein (6.3-8.2) g/dL Albumin (3.5-5.0) g/dL TSH (0.465-4.680) mIU/L Free T4 (0.78-2.19) ng/dL Disposition Clinical Impression: Acute congestive heart failure Disposition: ADMITTED IP TO THIS HOSP Condition: Stable
[2024-11-29 17:35] LABS: Basophils % (A) 0 %; Eosinophils # (A) 0.2 k/uL (0-0.7); Eosinophils % (A) 3 %; HCT 34.5 % (34.0-46.0); HGB 10.5 gm/dL (11.4-16.0); Hypochromasia Marked; Lymphocytes # (A) 1.3 k/uL (1.0-4.8); Lymphocytes % (A) 18 %; MCH 29.5 pg (25.0-35.0); MCHC 30.4 g/dL (31.0-37.0); MCV 96.9 fL (80.0-100.0); Mean Platelet Volume 7.5; Monocytes # (A) 0.5 k/uL (0-1.0); Monocytes % (A) 7 %; Neutrophils % (A) 70 %; Platelet Count 197 k/uL (150-450); RBC 3.56 m/uL (3.80-5.40); WBC 7.2 k/uL (3.8-10.6)
[2024-11-29 17:40] LABS: INR 0.9 (<1.2); Partial Thromboplastin Time 24.5 sec (22.0-30.0); Prothrombin Time 10.4 sec (10.0-12.5)
--- NOTE | 2024-11-29 17:45 | XR ---
EXAMINATION TYPE: XR chest 2V DATE OF EXAM: 11/29/2024 5:41 PM COMPARISON: Chest radiographs from 09/17/2024 TECHNIQUE: XR chest 2V Frontal and lateral views of the chest. CLINICAL INDICATION:Female, 79 years old with history of Weakness; FINDINGS: Lungs/Pleura: No evidence of focal consolidation or pneumothorax. Blunting of the costophrenic angles is present. Pulmonary vascularity: Pulmonary vascular congestion. Heart/mediastinum: Cardiomediastinal silhouette is enlarged and stable. Musculoskeletal: No acute osseous pathology. IMPRESSION: Cardiomegaly, pulmonary vascular congestion and bilateral small pleural effusions. Correlate with BNP for congestive heart failure. [facility], , 11/29/2024 5:43 PM
[2024-11-29 17:55] LABS: Ionized Calcium 4.9 mg/dL (4.5-5.3)
[2024-11-29 18:11] LABS: ALT 8 U/L (4-34); AST 14 U/L (14-36); African American GFR (CKD) 29 (>60 ml/min/1.73 sqM); Albumin 3.1 g/dL (3.5-5.0); Alkaline Phosphatase 82 U/L (38-126); Anion Gap 7 mmol/L; Blood Urea Nitrogen 58 mg/dL (7-17); Calcium 8.8 mg/dL (8.4-10.2); Carbon Dioxide 31 mmol/L (22-30); Chloride 104 mmol/L (98-107); Glucose 98 mg/dL (74-99); Magnesium 2.2 mg/dL (1.6-2.3); Non-African American GFR(CKD) 25 (>60 ml/min/1.73 sqM); Phosphorus 5.7 mg/dL (2.5-4.5); Potassium 4.4 mmol/L (3.5-5.1); Sodium 142 mmol/L (137-145); Total Bilirubin 0.3 mg/dL (0.2-1.3); Total Protein 5.9 g/dL (6.3-8.2)
[2024-11-29 18:20] LABS: NT-Pro-B-Type Natriuretic Pept 1620 pg/mL
[2024-11-29] MEDS: BUMETANIDE 0.25 MG/ML 4 ML VIAL IVP STA (19:25)
[2024-11-29 19:40] LABS: T4, Free (Free Thyroxine) 1.59 ng/dL (0.78-2.19)
[2024-11-29] MEDS ORDERED: INSULIN GLARGINE (LANTUS) 100 UNIT/ML SYR SQ PRN (20:27)
[2024-11-29] MEDS ORDERED: DOCUSATE 100 MG CAP PO PRN (20:27)
[2024-11-29] MEDS ORDERED: SIMETHICONE 80 MG CHEWABLE PO PRN (20:27)
[2024-11-29] MEDS ORDERED: NITROGLYCERIN SL TABS 0.4 MG TAB SUBLINGUAL PRN (20:27)
[2024-11-29] MEDS ORDERED: polyethylene glycoL 3350 17 GM POWD.PACK PO PRN (20:27)
[2024-11-29 20:58] LABS: Glucose,Whole Blood 133 mg/dL (70-110)
[2024-11-29] MEDS: busPIRone HCl 5 MG TAB PO SCH (20:58)
[2024-11-29] MEDS: APIXABAN 5 MG TAB PO SCH (20:58)
[2024-11-29] MEDS: METOPROLOL SUCCINATE (ER) 50 MG TAB.ER.24H PO SCH (20:58)
[2024-11-29] MEDS: ATORVASTATIN 10 MG TAB PO SCH (20:58)
[2024-11-29] MEDS ORDERED: PRIMIDONE 25 MG TAB PO SCH (21:00)
[2024-11-29] MEDS: INSULIN LISPRO (HumaLOG) 100 UNIT/ML 10 mL VL SQ SCH (21:01)
[2024-11-29] MEDS: PRIMIDONE 50 MG TAB PO SCH (21:02)
[2024-11-29] MEDS: BUMETANIDE 1 MG TAB PO SCH (21:20)
[2024-11-29 23:09] LABS: Glucose,Whole Blood 213 mg/dL (70-110)
[2024-11-30 00:50] LABS: Appearance,Urine Clear (Clear); Bacteria,Urine Occasional /hpf; Bilirubin,Urine Negative (Negative); Blood,Urine Small (Negative); Budding Yeast,Urine Rare /hpf; Color,Urine Colorless; Glucose,Urine (UA) Negative (Negative); Ketones,Urine Negative (Negative); Leukocyte Esterase,Urine Large (Negative); Nitrite,Urine Negative (Negative); Protein,Urine Negative (Negative); RBC,Urine 11 /hpf (0-5); Specific Gravity,Urine 1.012 (1.001-1.035); Squamous Epithelial Cell,Urine 2 /hpf (0-4); Urobilinogen,Urine <2.0 mg/dL (<2.0); WBC,Urine 20 /hpf (0-5)
[2024-11-30] MEDS: ACETAMINOPHEN TAB 500 MG TAB PO PRN (01:43)
[2024-11-30 02:40] LABS: African American GFR (CKD) 28 (>60 ml/min/1.73 sqM); Anion Gap 5 mmol/L; Blood Urea Nitrogen 59 mg/dL (7-17); Calcium 8.8 mg/dL (8.4-10.2); Carbon Dioxide 33 mmol/L (22-30); Chloride 103 mmol/L (98-107); Glucose 184 mg/dL (74-99); Non-African American GFR(CKD) 24 (>60 ml/min/1.73 sqM); Potassium 4.9 mmol/L (3.5-5.1); Sodium 141 mmol/L (137-145)
[2024-11-30 02:55] LABS: Basophils % (A) 0 %; Eosinophils # (A) 0.2 k/uL (0-0.7); Eosinophils % (A) 2 %; HGB 10.4 gm/dL (11.4-16.0); Hypochromasia Marked; Lymphocytes # (A) 1.1 k/uL (1.0-4.8); Lymphocytes % (A) 16 %; MCH 30.4 pg (25.0-35.0); MCHC 30.7 g/dL (31.0-37.0); MCV 98.8 fL (80.0-100.0); Mean Platelet Volume 8.1; Monocytes # (A) 0.5 k/uL (0-1.0); Monocytes % (A) 7 %; Neutrophils # (A) 5.2 k/uL (1.3-7.7); Neutrophils % (A) 73 %; Platelet Count 190 k/uL (150-450); RBC 3.44 m/uL (3.80-5.40); RDW 13.9 % (11.5-15.5); WBC 7.1 k/uL (3.8-10.6)
[2024-11-30] MEDS: LEVOTHYROXINE 75 MCG TAB PO SCH (06:18)
[2024-11-30] MEDS: CARBIDOPA-LEVODOPA 25-100 MG 1 EACH TAB PO SCH (06:18)
[2024-11-30 06:24] LABS: Glucose,Whole Blood 151 mg/dL (70-110)
--- NOTE | 2024-11-30 08:12 | P.CRDCN ---
History of Present Illness Consult date: 11/30/24 History of present illness: The patient is a pleasant 79-year-old female patient who is known to our service from before with a past medical history significant for heart failure and cardiomyopathy with EF between 40 to 45% based on echo in 2023 as well as paroxysmal atrial fibrillation hypertension and dyslipidemia and multiple comorbid conditions including a chronic hypoxic respiratory failure secondary to COPD who was admitted to the hospital from home by her caregiver because she was not feeling well with the patient is extremely poor historian. Apparently she was brought because of generalized weakness and also she has not been feeling well. No symptoms of chest pain or chest discomfort but shortness of breath appears to be her baseline. She does have also bilateral lower extremities edema which according to her has slightly increased compared to before. No other cardiovascular symptoms. She underwent further evaluation including NT proBNP came to be mildly elevated at 1600 and chest x-ray showed small bilateral pleural effusion with pulmonary vascular congestions and also EKG showed sinus mechanism with no significant ST or T wave abnormalities noted. The patient overall does not seems in any overt congestive heart failure. UA was done and showed UTI. The physical examination is remarkable for regular rhythm with a systolic murmur at the right upper sternal border and diminished breathing sounds bilaterally and mild to moderate bilateral lower extremities appears to be nonpitting edema could be her baseline from before Assessment Generalized weakness and fatigue could be secondary to UTI History of heart failure Cardiomyopathy Paroxysmal atrial fibrillation Chronic hypoxic respiratory failure Multiple comorbid conditions Plan The patient does not seems in overt heart failure at this point Continue the current dose of oral diuretics Continue oral anticoagulation Treatment for UTI Follow-up with the patient Past Medical History Past Medical History: Heart Failure, Diabetes Mellitus, Hyperlipidemia, Hypertension, Pneumonia, Rheumatoid Arthritis (RA) Additional Past Medical History / Comment(s): tremors, renal lithiasis, hemorrhoids(sx done), "has had problems w/low magnesium.anemia. per spouse pt had past cancer "uterine or cervical-had hysterectomy". it was previously charted that pt had hx of ra and cfh spouse not able to verify this, History of Any Multi-Drug Resistant Organisms: ESBL Date of last positivie culture/infection: 09/15/23 MDRO Source:: URINE Past Surgical History: Appendectomy, Hysterectomy, Orthopedic Surgery, Tonsillectomy Additional Past Surgical History / Comment(s): rt total knee repalcement, cataracts, hemmorroidectomy, colonoscopy Past Anesthesia/Blood Transfusion Reactions: No Reported Reaction Additional Past Anesthesia/Blood Transfusion Reaction / Comment(s): per psouse- pt never receieved any blood Past Psychological History: No Psychological Hx Reported Smoking Status: Never smoker Past Alcohol Use History: None Reported Past Drug Use History: None Reported - Past Family History Mother Family Medical History: Diabetes Mellitus Father Additional Family Medical History / Comment(s): brain anuerysm Medications and Allergies Home Medications Medication Instructions Recorded Confirmed Type Primidone 75 mg PO BID 07/23/22 11/29/24 History busPIRone HCl [Buspar] 5 mg PO BID 07/23/22 11/29/24 History Apixaban [Eliquis] 5 mg PO BID tab 08/04/22 11/29/24 Rx Carbidopa-Levodopa 25-100 mg 1 tab PO TID-W/MEALS 09/14/23 11/29/24 History [Sinemet 25-100 mg] Escitalopram Oxalate [Lexapro] 10 mg PO DAILY 09/14/23 11/29/24 History Cyanocobalamin (Vitamin B-12) 1,000 mcg PO DAILY 02/27/24 11/29/24 History [Vitamin B-12] Docusate [Colace] 100 mg PO DAILY PRN 02/27/24 11/29/24 History Levothyroxine Sodium [Synthroid] 75 mcg PO AC-BRKFST 02/27/24 11/29/24 History Nitroglycerin Sl Tabs [Nitrostat] 0.4 mg SUBLINGUAL Q5M PRN 02/27/24 11/29/24 History Simethicone 180 mg PO ACHS PRN 02/27/24 11/29/24 History polyethylene glycoL 3350 [Miralax] 17 gm PO DAILY PRN 02/27/24 11/29/24 History Metoprolol Succinate (ER) [Toprol 50 mg PO BID tab 03/05/24 11/29/24 Rx XL] Acetaminophen Tab [Tylenol] 500 mg PO Q6H PRN 06/03/24 11/29/24 History Amiodarone [Cordarone] 100 mg PO DAILY 06/03/24 11/29/24 History Potassium Chloride ER [K-Dur 20] 20 meq PO DAILY 06/03/24 11/29/24 History Bumetanide [BUMEX] 2 mg PO DAILY 11/29/24 11/29/24 History Bumetanide [Bumex] 1 mg PO HS 11/29/24 11/29/24 History Famotidine [Pepcid] 20 mg PO DAILY 11/29/24 11/29/24 History Insulin Glargine,Hum.rec.anlog 20 units SQ HS PRN 11/29/24 11/29/24 History [Lantus Solostar Pen] Insulin Glargine,Hum.rec.anlog 36 units SQ DAILY 11/29/24 11/29/24 History [Lantus Solostar Pen] Insulin Lispro [humaLOG Kwikpen] See Protocol SQ TID-W/MEALS 11/29/24 11/29/24 History Losartan [Cozaar] 50 mg PO DAILY 11/29/24 11/29/24 History Simvastatin [Zocor] 10 mg PO HS 11/29/24 11/29/24 History amLODIPine [Norvasc] 10 mg PO DAILY 11/29/24 11/29/24 History Allergies Allergy/AdvReac Type Severity Reaction Status Date / Time gabapentin AdvReac Hallucinati Verified 11/29/24 16:33 ons Physical Exam Vitals: Vital Signs Temp Pulse Pulse Resp BP BP Pulse Ox 11/30/24 04:34 97.8 F 56 L 19 142/60 94 L 11/30/24 00:10 97.7 F 65 19 132/74 96 11/29/24 22:37 60 18 144/58 94 L 11/29/24 21:00 71 17 135/79 97 11/29/24 18:45 71 18 121/68 97 11/29/24 16:26 97.7 F 65 20 167/69 93 L Intake and Output 11/29/24 11/30/24 11/30/24 22:59 06:59 14:59 Output Total 800 Balance -800 Output: Urine 800 Straight 800 Other: Voiding Method External Catheter # Voids 1 0 Weight 90.718 kg Results 11/30/24 00:00 11/30/24 00:00 Cardiac Enzymes 11/29/24 11/29/24 11/29/24 Range/Units 17:21 17:21 21:18 AST 14 (14-36) U/L Troponin I 0.015 0.015 (0.000-0.034) ng/mL 11/29/24 Range/Units 23:32 AST (14-36) U/L Troponin I 0.016 (0.000-0.034) ng/mL Coagulation 11/29/24 Range/Units 17:21 PT 10.4 (10.0-12.5) sec APTT 24.5 (22.0-30.0) sec CBC 11/29/24 11/30/24 Range/Units 17:21 00:00 WBC 7.2 7.1 (3.8-10.6) k/uL RBC 3.56 L 3.44 L (3.80-5.40) m/uL Hgb 10.5 L 10.4 L (11.4-16.0) gm/dL Hct 34.5 34.0 (34.0-46.0) % Plt Count 197 190 (150-450) k/uL Comprehensive Metabolic Panel 11/29/24 11/30/24 Range/Units 17:21 00:00 Sodium 142 141 (137-145) mmol/L Potassium 4.4 4.9 (3.5-5.1) mmol/L Chloride 104 103 (98-107) mmol/L Carbon Dioxide 31 H 33 H (22-30) mmol/L BUN 58 H 59 H (7-17) mg/dL Creatinine 1.88 H 1.95 H (0.52-1.04) mg/dL Glucose 98 184 H (74-99) mg/dL Calcium 8.8 8.8 (8.4-10.2) mg/dL AST 14 (14-36) U/L ALT 8 (4-34) U/L Alkaline Phosphatase 82 (38-126) U/L Total Protein 5.9 L (6.3-8.2) g/dL Albumin 3.1 L (3.5-5.0) g/dL Current Medications Generic Name Dose Route Start Last Admin Trade Name Freq PRN Reason Stop Dose Admin Acetaminophen 500 mg 11/29/24 20:27 11/30/24 01:43 Acetaminophen Tab 500 Mg Tab PO 500 mg Q6H PRN Administration Mild Pain or Fever > 100.5 Amiodarone HCl 100 mg 11/30/24 09:00 Amiodarone 100 Mg Tab PO DAILY [facility] Amlodipine Besylate 10 mg 11/30/24 09:00 Amlodipine 10 Mg Tab PO DAILY [facility] Apixaban 5 mg 11/29/24 21:00 11/29/24 20:58 Apixaban 5 Mg Tab PO 5 mg BID ROMERO Administration Protocol Atorvastatin Calcium 10 mg 11/29/24 21:00 11/29/24 20:58 Atorvastatin 10 Mg Tab PO 10 mg HS [facility] Administration Bumetanide 1 mg 11/29/24 21:00 11/29/24 21:20 Bumetanide 1 Mg Tab PO 1 mg HS [facility]ERO Administration Bumetanide 2 mg 11/30/24 09:00 Bumetanide 1 Mg Tab PO DAILY [facility] Buspirone HCl 5 mg 11/29/24 21:00 11/29/24 20:58 Buspirone Hcl 5 Mg Tab PO 5 mg BID [facility] Administration Carbidopa/Levodopa 1 each 11/30/24 07:30 11/30/24 06:18 Carbidopa-Levodopa 25-100 Mg 1 Each Tab PO 1 each TID-W/MEALS [facility]ERO Administration Cyanocobalamin 1,000 mcg 11/30/24 09:00 Cyanocobalamin 500 Mcg Tab PO DAILY [facility] Docusate Sodium 100 mg 11/29/24 20:27 Docusate 100 Mg Cap PO DAILY PRN Constipation Escitalopram Oxalate 10 mg 11/30/24 09:00 Escitalopram 10 Mg Tab PO DAILY [facility] Famotidine 20 mg 11/30/24 09:00 Famotidine 20 Mg Tab PO DAILY [facility] Insulin Glargine 36 unit 11/30/24 09:00 Insulin Glargine (Lantus) 100 Unit/Ml Syr SQ DAILY [facility] Insulin Glargine 20 unit 11/29/24 20:27 Insulin Glargine (Lantus) 100 Unit/Ml Syr SQ HS PRN BLOOD SUGAR >300 Insulin Human Lispro 0 unit 11/29/24 21:00 11/30/24 06:29 Insulin Lispro (Humalog) 100 Unit/Ml 10 Ml Vl SQ 2 unit ACHS [facility]ERO Administration Protocol Levothyroxine Sodium 75 mcg 11/30/24 07:30 11/30/24 06:18 Levothyroxine 75 Mcg Tab PO 75 mcg AC-BRKFST [facility] Administration Losartan Potassium 50 mg 11/30/24 09:00 Losartan 50 Mg Tab PO DAILY [facility] Metoprolol Succinate 50 mg 11/29/24 21:00 11/29/24 20:58 Metoprolol Succinate (Er) 50 Mg Tab.Er.24h PO 50 mg BID [facility] Administration Nitroglycerin 0.4 mg 11/29/24 20:27 Nitroglycerin Sl Tabs 0.4 Mg Tab SUBLINGUAL Q5M PRN Chest Pain Polyethylene Glycol 17 gm 11/29/24 20:27 Polyethylene Glycol 3350 17 Gm Powd.Pack PO DAILY PRN Constipation Potassium Chloride 20 meq 11/30/24 09:00 Potassium Chloride Er 20 Meq Tab.Er PO DAILY [facility] Primidone 75 mg 11/29/24 21:00 11/29/24 21:02 Primidone 50 Mg Tab PO 75 mg BID [facility] Administration Simethicone 160 mg 11/29/24 20:27 Simethicone 80 Mg Chewable PO ACHS PRN gas/bloating Intake and Output 11/29/24 11/30/24 11/30/24 22:59 06:59 14:59 Output Total 800 Balance -800 Output: Urine 800 Straight 800 Other: Voiding Method External Catheter # Voids 1 0 Weight 90.718 kg 11/30/24 00:00 11/30/24 00:00
[2024-11-30] MEDS: CYANOCOBALAMIN 500 MCG TAB PO SCH (10:30)
[2024-11-30] MEDS: POTASSIUM CHLORIDE ER 20 MEQ TAB.ER PO SCH (10:30)
[2024-11-30] MEDS: AMIODARONE 100 MG TAB PO SCH (10:30)
[2024-11-30] MEDS: FAMOTIDINE 20 MG TAB PO SCH (10:31)
[2024-11-30] MEDS: INSULIN GLARGINE (LANTUS) 100 UNIT/ML SYR SQ SCH (10:32)
[2024-11-30] MEDS: amLODIPine 10 MG TAB PO SCH (10:32)
[2024-11-30] MEDS: LOSARTAN 50 MG TAB PO SCH (10:32)
[2024-11-30] MEDS: BUMETANIDE 1 MG TAB PO SCH (10:33)
[2024-11-30] MEDS: ESCITALOPRAM 10 MG TAB PO SCH (10:36)
[2024-11-30 10:37] VITALS: BMI 34.3
--- NOTE | 2024-11-30 11:12 | CA ---
Transthoracic Echo Report Name: Luisa Umaña Age: 79 Gender: F : 1945 Exam Date: 11/30/2024 08:20 Exam Location: [facility] Ht (in): 64 Wt (lb): 200 Ordering Physician: Allison Hernadez MD Attending/Referring Phys: Creative Writing Professor Charlee Cross RDCS Procedure CPT: Indications: Heart failure Cardiac Hx: Technical Quality: Technically difficult study Contrast 1: Definity Total Dose (mL): 2 Contrast 2: Total Dose (mL): MEASUREMENTS (Male / Female) Normal Values 2D ECHO LV Diastolic Diameter PLAX 5.1 cm 4.2 - 5.9 / 3.9 - 5.3 cm LV Systolic Diameter PLAX 4.0 cm IVS Diastolic Thickness 1.0 cm 0.6 - 1.0 / 0.6 - 0.9 cm LVPW Diastolic Thickness 1.0 cm 0.6 - 1.0 / 0.6 - 0.9 cm LV Relative Wall Thickness 0.4 RV Internal Dim ED PLAX 3.3 cm LA Systolic Diameter LX 4.0 cm 3.0 - 4.0 / 2.7 - 3.8 cm LV Diastolic Volume MOD BP 61.8 cm??? 67 - 155 / 56 - 104 cm??? LV Systolic Volume MOD BP 32.0 cm??? 22 - 58 / 19 - 49 cm??? LV Ejection Fraction MOD BP 48.2 % >= 55 % LV Cardiac Index MOD BP 808.1 cm???/min???m??? LV Diastolic Volume MOD 4C 57.0 cm??? LV Systolic Volume MOD 4C 29.5 cm??? LV Ejection Fraction MOD 4C 48.2 % LV Cardiac Index MOD 4C 746.5 cm???/min???m??? LV Diastolic Length 4C 6.2 cm LV Systolic Length 4C 6.0 cm LV Diastolic Volume MOD 2C 58.4 cm??? LV Systolic Volume MOD 2C 30.6 cm??? LV Ejection Fraction MOD 2C 47.6 % LV Cardiac Index MOD 2C 755.9 cm???/min???m??? LV Diastolic Length 2C 5.4 cm LV Systolic Length 2C 5.2 cm LA Volume 97.9 cm??? 18 - 58 / 22 - 52 cm??? LA Volume Index 47.5 cm???/m??? 16 - 28 cm???/m??? M-MODE Aortic Root Diameter MM 3.1 cm DOPPLER AV Peak Velocity 114.0 cm/s AV Peak Gradient 5.2 mmHg MV Area PHT 4.0 cm??? Mitral E Point Velocity 120.7 cm/s Mitral A Point Velocity 65.2 cm/s Mitral E to A Ratio 1.8 MV Deceleration Time 187.6 ms TR Peak Velocity 374.9 cm/s TR Peak Gradient 56.2 mmHg Right Ventricular Systolic Press 60.3 mmHg FINDINGS Left Ventricle Left ventricular ejection fraction is estimated at 45-50 %. Mildly increased septal wall thickness. Mildly increased posterior wall thickness. Mildly decreased left ventricular ejection fraction. Right Ventricle Mild right ventricular dilatation. Severe pulmonary hypertension. Right ventricular systolic pressure estimated at 60 mm hg. Right Atrium Normal right atrial size. No right atrial thrombus or mass seen. Left Atrium Mildly increased left atrial diameter. Severely increased left atrial volume. Mildly increased left atrial area. No left atrial thrombus or mass present. Mitral Valve Mitral valve thickened. Mitral annular calcification. Trace mitral regurgitation. Aortic Valve Trileaflet aortic valve. Thickened aortic valve without stenosis. Tricuspid Valve Structurally normal tricuspid valve. Mild tricuspid regurgitation. Pulmonic Valve Pulmonic valve not well visualized. Pericardium No pericardial effusion. Aorta Normal size aortic root and proximal ascending aorta. CONCLUSIONS mild LV systolic dysfunction Severe pulmonary hypertension Previewed by: Dr. Johan Gunderson MD (Electronically Signed) Final Date: 30 November 2024 11:12
[2024-11-30 11:13] LABS: Glucose,Whole Blood 230 mg/dL (70-110)
[2024-11-30 12:58] LABS: Influenza A Not Detected (Not Detectd); Influenza B Not Detected (Not Detectd); RSV Not Detected (Not Detectd)
[2024-11-30 16:14] LABS: Glucose,Whole Blood 118 mg/dL (70-110)
[2024-11-30 20:05] LABS: Glucose,Whole Blood 161 mg/dL (70-110)
[2024-11-30] MEDS ORDERED: INSULIN GLARGINE (LANTUS) 100 UNIT/ML SYR SQ PRN (21:00)
[2024-12-01 06:01] LABS: Glucose,Whole Blood 79 mg/dL (70-110)
--- NOTE | 2024-12-01 07:05 | P.PN ---
Subjective Progress Note Date: 12/01/24 The patient is a pleasant 79-year-old female patient who is known to our service from before with a past medical history significant for heart failure and cardiomyopathy with EF between 40 to 45% based on echo in 2023 as well as paroxysmal atrial fibrillation hypertension and dyslipidemia and multiple com orbid conditions including a chronic hypoxic respiratory failure secondary to COPD who was admitted to the hospital from home by her caregiver because she was not feeling well with the patient is extremely poor historian. Apparently she was brought because of generalized weakness and also she has not been feeling well. No symptoms of chest pain or chest discomfort but shortness of breath appears to be her baseline. She does have also bilateral lower extremities edema which according to her has slightly increased compared to before. No other cardiovascular symptoms. She underwent further evaluation including NT proBNP came to be mildly elevated at 1600 and chest x-ray showed small bilateral pleural effusion with pulmonary vascular congestions and also EKG showed sinus mechanism with no significant ST or T wave abnormalities noted. The patient overall does not seems in any overt congestive heart failure. UA was done and showed UTI. The physical examination is remarkable for regular rhythm with a systolic murmur at the right upper sternal border and diminished breathing sounds bilaterally and mild to moderate bilateral lower extremities appears to be nonpitting edema could be her baseline from before December 01 2024 The patient was seen and evaluated this morning. Overall she seems to be stable. She is bradycardic with heart rate in the 50s. Given the generalized weakness and fatigue I would suggest decrease the dose of metoprolol from 50 mg p.o. twice daily to 25 mg p.o. twice daily. The echo showed mildly impaired LV function with EF around 45% with severe pulmonary hypertension. The physical examination is remarkable for regular rhythm with a systolic murmur at the right upper sternal border with diminished breathing sounds bilaterally and bilateral lower extremity edema probably chronic and secondary to pulmonary hypertension Assessment Generalized weakness and fatigue could be secondary to UTI History of heart failure Cardiomyopathy Paroxysmal atrial fibrillation Chronic hypoxic respiratory failure Sinus bradycardia Plan The patient does not seems in overt heart failure at this point Continue the current dose of oral diuretics Decrease the dose of beta-antonella Continue oral anticoagulation Treatment for UTI Follow-up with the patient Objective - Vital Signs Vital signs: Vital Signs Temp 97.8 F 12/01/24 03:47 Pulse 58 L 12/01/24 03:47 Resp 16 12/01/24 03:47 BP 127/72 12/01/24 03:47 Pulse Ox 99 12/01/24 03:47 FiO2 Intake & Output 11/30/24 12/01/24 12/01/24 18:59 06:59 18:59 Intake Total 120 Output Total 300 110 Balance -180 -110 Weight 90.718 kg 56 kg Intake: Oral 120 Output: Urine 300 110 Other: Voiding Method Diaper External Catheter External Catheter # Bowel Movements 1 - Labs CBC & Chem 7: 11/30/24 00:00 11/30/24 00:00 Labs: Abnormal Lab Results - Last 24 Hours (Table) 11/30/24 11/30/24 11/30/24 Range/Units 11:12 16:13 19:57 POC Glucose (mg/dL) 230 H 118 H 161 H (70-110) mg/dL
[2024-12-01 09:06] LABS: Basophils % (A) 0 %; Eosinophils # (A) 0.2 k/uL (0-0.7); Eosinophils % (A) 3 %; HCT 32.5 % (34.0-46.0); HGB 9.9 gm/dL (11.4-16.0); Hypochromasia Marked; Lymphocytes # (A) 1.1 k/uL (1.0-4.8); Lymphocytes % (A) 16 %; MCH 29.5 pg (25.0-35.0); MCHC 30.4 g/dL (31.0-37.0); MCV 96.9 fL (80.0-100.0); Mean Platelet Volume 7.8; Monocytes # (A) 0.6 k/uL (0-1.0); Monocytes % (A) 8 %; Neutrophils % (A) 71 %; Platelet Count 178 k/uL (150-450); RBC 3.35 m/uL (3.80-5.40); RDW 13.7 % (11.5-15.5); WBC 7.1 k/uL (3.8-10.6)
[2024-12-01] MEDS: INSULIN GLARGINE (LANTUS) 100 UNIT/ML SYR SQ SCH (09:15)
[2024-12-01 09:18] LABS: African American GFR (CKD) 32 (>60 ml/min/1.73 sqM); Anion Gap 2 mmol/L; Blood Urea Nitrogen 55 mg/dL (7-17); Calcium 8.3 mg/dL (8.4-10.2); Carbon Dioxide 33 mmol/L (22-30); Chloride 104 mmol/L (98-107); Glucose 120 mg/dL (74-99); Non-African American GFR(CKD) 28 (>60 ml/min/1.73 sqM); Potassium 4.4 mmol/L (3.5-5.1); Sodium 139 mmol/L (137-145)
[2024-12-01] MEDS: METOPROLOL SUCCINATE (ER) 25 MG TAB.ER.24H PO SCH (09:18)
[2024-12-01 12:01] LABS: Glucose,Whole Blood 85 mg/dL (70-110)
[2024-12-01 16:54] LABS: Glucose,Whole Blood 118 mg/dL (70-110)
--- NOTE | 2024-12-01 17:38 | P.HPIM ---
History of Present Illness H&P Date: 11/29/24 Chief Complaint: Generalized weakness 79-year-old female past medical history Parkinson's, CHF, atrial fibrillation on Eliquis presenting today for generalized weakness. Patient presents with her caregiver and daughter at [facility] who provided vast majority of history. 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 patient began to have increasing weakness, not wanting to go to doctors appointment, due to generalized weakness not being able to get out of bed. Patient does typically ambulate with assistance has been too weak to walk over the course of the last week. Patient's caregiver monitors her pulse ox closely and 2 days ago noted patient's pulse ox to be 82% during the day. Patient does typically wear 2 L oxygen at night but does not require oxygen during the day. No history of COPD. Patient not had any fevers, no episodes of emesis, she did have 1 soft stool earlier today but otherwise no diarrhea, black or bloody stools. Patient has chronic abdominal pain but no new pain. Patient's caregiver states patient has not had any strokelike symptoms and is at baseline with the exception of her increased weakness. Patient has not any episodes of increased work of breathing/shortness of breath. She has not increased bilateral lower extremity swelling. Was recently on a course of oral antibiotics for toe infection that has improved. No recent falls. Blood work completed in ED reveals a WBC of 7 1, hemoglobin of 10.4 and platelet count of 190, sodium 141, potassium 4.9, BUNs/creatinine 59/1.95 and blood gluco se of 184, troponin of 0.015, BNP elevated at 1620 UA is positive for leukocyte esterase, WBCs and bacteria Chest x-ray showed small bilateral pleural effusion with pulmonary vascular congestions - EKG showed sinus mechanism with no significant ST or T wave abnormalities noted. Review of Systems REVIEW OF SYSTEMS: CONSTITUTIONAL: No fever, no malaise, no fatigue. HEENT: No recent visual problems or hearing problems. Denied any sore throat. CARDIOVASCULAR: No chest pain, orthopnea, PND, no palpitations, no syncope. PULMONARY: No shortness of breath, no cough, no hemoptysis. GASTROINTESTINAL: No diarrhea, no nausea, no vomiting, no abdominal pain. NEUROLOGICAL: No headaches, no weakness, no numbness. HEMATOLOGICAL: Denies any bleeding or petechiae. GENITOURINARY: Denies any burning micturition, frequency, or urgency. MUSCULOSKELETAL/RHEUMATOLOGICAL: Denies any joint pain, swelling, or any muscle pain. ENDOCRINE: Denies any polyuria or polydipsia. The rest of the 14-point review of systems is negative. Past Medical History Past Medical History: Heart Failure, Diabetes Mellitus, Hyperlipidemia, Hyperte nsion, Pneumonia, Rheumatoid Arthritis (RA) Additional Past Medical History / Comment(s): tremors, renal lithiasis, hemorrhoids(sx done), "has had problems w/low magnesium.anemia. per spouse pt had past cancer "uterine or cervical-had hysterectomy". it was previously charted that pt had hx of ra and cfh spouse not able to verify this, History of Any Multi-Drug Resistant Organisms: ESBL Date of last positivie culture/infection: 09/15/23 MDRO Source:: URINE Past Surgical History: Appendectomy, Hysterectomy, Orthopedic Surgery, Tonsillectomy Additional Past Surgical History / Comment(s): rt total knee repalcement, cataracts, hemmorroidectomy, colonoscopy Past Anesthesia/Blood Transfusion Reactions: No Reported Reaction Additional Past Anesthesia/Blood Transfusion Reaction / Comment(s): per psouse- pt never receieved any blood Past Psychological History: No Psychological Hx Reported Smoking Status: Never smoker Past Alcohol Use History: None Reported Past Drug Use History: None Reported - Past Family History Mother Family Medical History: Diabetes Mellitus Father Additional Family Medical History / Comment(s): brain anuerysm Medications and Allergies Home Medications Medication Instructions Recorded Confirmed Type Primidone 75 mg PO BID 07/23/22 11/29/24 History busPIRone HCl [Buspar] 5 mg PO BID 07/23/22 11/29/24 History Apixaban [Eliquis] 5 mg PO BID tab 08/04/22 11/29/24 Rx Carbidopa-Levodopa 25-100 mg 1 tab PO TID-W/MEALS 09/14/23 11/29/24 History [Sinemet 25-100 mg] Escitalopram Oxalate [Lexapro] 10 mg PO DAILY 09/14/23 11/29/24 History Cyanocobalamin (Vitamin B-12) 1,000 mcg PO DAILY 02/27/24 11/29/24 History [Vitamin B-12] Docusate [Colace] 100 mg PO DAILY PRN 02/27/24 11/29/24 History Levothyroxine Sodium [Synthroid] 75 mcg PO AC-BRKFST 02/27/24 11/29/24 History Nitroglycerin Sl Tabs [Nitrostat] 0.4 mg SUBLINGUAL Q5M PRN 02/27/24 11/29/24 History Simethicone 180 mg PO ACHS PRN 02/27/24 11/29/24 History polyethylene glycoL 3350 [Miralax] 17 gm PO DAILY PRN 02/27/24 11/29/24 History Metoprolol Succinate (ER) [Toprol 50 mg PO BID tab 03/05/24 11/29/24 Rx XL] Acetaminophen Tab [Tylenol] 500 mg PO Q6H PRN 06/03/24 11/29/24 History Amiodarone [Cordarone] 100 mg PO DAILY 06/03/24 11/29/24 History Potassium Chloride ER [K-Dur 20] 20 meq PO DAILY 06/03/24 11/29/24 History Bumetanide [BUMEX] 2 mg PO DAILY 11/29/24 11/29/24 History Bumetanide [Bumex] 1 mg PO HS 11/29/24 11/29/24 History Famotidine [Pepcid] 20 mg PO DAILY 11/29/24 11/29/24 History Insulin Glargine,Hum.rec.anlog 20 units SQ HS PRN 11/29/24 11/29/24 History [Lantus Solostar Pen] Insulin Glargine,Hum.rec.anlog 36 units SQ DAILY 11/29/24 11/29/24 History [Lantus Solostar Pen] Insulin Lispro [humaLOG Kwikpen] See Protocol SQ TID-W/MEALS 11/29/24 11/29/24 History Losartan [Cozaar] 50 mg PO DAILY 11/29/24 11/29/24 History Simvastatin [Zocor] 10 mg PO HS 11/29/24 11/29/24 History amLODIPine [Norvasc] 10 mg PO DAILY 11/29/24 11/29/24 History Allergies Allergy/AdvReac Type Severity Reaction Status Date / Time gabapentin AdvReac Hallucinati Verified 11/29/24 16:33 ons Physical Exam Vitals: Vital Signs Temp Pulse Resp BP Pulse Ox 11/29/24 18:45 71 18 121/68 97 11/29/24 16:26 97.7 F 65 20 167/69 93 L Intake and Output 11/29/24 11/29/24 11/29/24 06:59 14:59 22:59 Other: Weight 90.718 kg CONSTITUTIONAL: No apparent distress, ill-appearing, nontoxic SKIN: Warm, dry, no jaundice, hives or petechiae, some generalized pallor EYES: Pupils are equally round, extraocular movements intact without nystagmus, clear conjunctiva, non-icteric sclera HENT: Normocephalic, atraumatic, moist mucus membranes, oropharynx clear without exudates NECK: , Full range of motion, normal appearance PULMONARY: Crackles in the bilateral lung bases, otherwise no wheezes, rhonchi, normal excursion, no accessory muscle use and no stridor CARDIOVASCULAR: Regular rate, rhythm, normal S1 and S2. No appreciated murmurs, rubs or gallops. Strong radial pulses with intact distal perfusion. 3+ bilateral lower extremity pitting edema GASTROINTESTINAL: Soft, active bowel sounds throughout, non-tender, non- distended, no palpable masses, no rebound or guarding. No hepatosplenomegaly MUSCULOSKELETAL: Extremities have no gross deformity NEUROLOGIC:_a/o x 3, GCS 15, patient is at baseline mentation and speech, speech is slowed however family states that this is patient's baseline when she becomes sick. Generalized weakness without any focal neurodeficits PSYCHIATRIC:_normal mood and affect, thought process is at baseline, able to speak in short sentances and answer questions regarding symptoms, brief history Results CBC & Chem 7: 12/01/24 08:18 12/01/24 08:18 Labs: Abnormal Lab Results - Last 24 Hours (Table) 11/29/24 11/29/24 11/29/24 Range/Units 17:21 17:21 20:56 RBC 3.56 L (3.80-5.40) m/uL Hgb 10.5 L (11.4-16.0) gm/dL MCHC 30.4 L (31.0-37.0) g/dL Carbon Dioxide 31 H (22-30) mmol/L BUN 58 H (7-17) mg/dL Creatinine 1.88 H (0.52-1.04) mg/dL POC Glucose (mg/dL) 133 H (70-110) mg/dL Phosphorus 5.7 H (2.5-4.5) mg/dL Total Protein 5.9 L (6.3-8.2) g/dL Albumin 3.1 L (3.5-5.0) g/dL TSH 6.790 H (0.465-4.680) mIU/L Assessment and Plan Assessment: 1. Acute exacerbation CHF -Patient received IV Lasix in ED; we will continue with current dose -2D echo; low-salt and fluid restricted diet; monitor QUENTIN's -Consult cardiology 2. UTI; ceftriaxone 2 mg IV daily; await urine culture results for further recommendations 3. Acute renal injury; we will hold off on IV fluid hydration given acute renal injury; we will monitor strict QUENTIN's, daily weights, renal function electrolytes; avoid nephrotoxins and hypotension 4. Paroxysmal atrial fibrillation; amiodarone 100 mg daily; Eliquis 2.5 mg twice daily 5. Hyperlipidemia; Lipitor 10 mg p.o. nightly 6. Diabetes mellitus with long-term insulin use; Lantus 36 units subcu daily along with Accu-Cheks before every meal and at bedtime with insulin sliding scale 7. Hypertension; Norvasc 10 mg daily; metoprolol 25 mg twice daily; losartan 50 mg daily 8. Hypothyroidism; levothyroxine 75 mcg daily 9. Parkinson's with extensive tremors; continue with home dose of carbidopa and primidone DVT prophylaxis; SCDs CODE STATUS; full code
--- NOTE | 2024-12-01 17:39 | P.PN ---
Subjective Progress Note Date: 11/30/24 79-year-old female past medical history Parkinson's, CHF, atrial fibrillation on Eliquis presenting today for generalized weakness. Patient presents with her caregiver and daughter at [facility] who provided vast majority of history. 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 patient began to have increasing weakness, not wanting to go to doctors appointment, due to generalized weakness not being able to get out of bed. Patient does typically ambulate with assistance has been too weak to walk over the course of the last week. Patient's caregiver monitors her pulse ox closely and 2 days ago noted patient's pulse ox to be 82% during the day. Patient does typically wear 2 L oxygen at night but does not require oxygen during the day. No history of COPD. Patient not had any fevers, no episodes of emesis, she did have 1 soft stool earlier today but otherwise no diarrhea, black or bloody stools. Patient has chronic abdominal pain but no new pain. Patient's caregiver states patient has not had any strokelike symptoms and is at baseline with the exception of her increased weakness. Patient has not any episodes of increased work of breathing/shortness of breath. She has not increased bilateral lower extremity swelling. Was recently on a course of oral antibiotics for toe infection that has improved. No recent falls. Blood work completed in ED reveals a WBC of 7 1, hemoglobin of 10.4 and platelet count of 190, sodium 141, potassium 4.9, BUNs/creatinine 59/1.95 and blood glucose of 184, troponin of 0.015, BNP elevated at 1620 UA is positive for leukocyte esterase, WBCs and bacteria Chest x-ray showed small bilateral pleural effusion with pulmonary vascular congestions - EKG showed sinus mechanism with no significant ST or T wave abnormalities noted. Objective - Vital Signs Vital signs: Vital Signs Temp 97.4 F L 11/30/24 07:28 Pulse 67 11/30/24 07:28 Resp 14 11/30/24 07:28 BP 163/82 11/30/24 07:28 Pulse Ox 94 L 11/30/24 07:28 FiO2 Intake & Output 11/29/24 11/30/24 11/30/24 18:59 06:59 18:59 Output Total 800 Balance -800 Weight 90.718 kg 90.718 kg Output: Urine 800 Straight 800 Other: Voiding Method External Catheter # Voids 0 - Exam CONSTITUTIONAL: No apparent distress, ill-appearing, nontoxic SKIN: Warm, dry, no jaundice, hives or petechiae, some generalized pallor EYES: Pupils are equally round, extraocular movements intact without nystagmus, clear conjunctiva, non-icteric sclera HENT: Normocephalic, atraumatic, moist mucus membranes, oropharynx clear without exudates NECK: , Full range of motion, normal appearance PULMONARY: Crackles in the bilateral lung bases, otherwise no wheezes, rhonchi, normal excursion, no accessory muscle use and no stridor CARDIOVASCULAR: Regular rate, rhythm, normal S1 and S2. No appreciated murmurs, rubs or gallops. Strong radial pulses with intact distal perfusion. 3+ bilateral lower extremity pitting edema GASTROINTESTINAL: Soft, active bowel sounds throughout, non-tender, non- distended, no palpable masses, no rebound or guarding. No hepatosplenomegaly MUSCULOSKELETAL: Extremities have no gross deformity NEUROLOGIC:_a/o x 3, GCS 15, patient is at baseline mentation and speech, speech is slowed however family states that this is patient's baseline when she becomes sick. Generalized weakness without any focal neurodeficits PSYCHIATRIC:_normal mood and affect, thought process is at baseline, able to speak in short sentances and answer questions regarding symptoms, brief history - Labs CBC & Chem 7: 12/01/24 08:18 12/01/24 08:18 Labs: Abnormal Lab Results - Last 24 Hours (Table) 11/29/24 11/29/24 11/29/24 Range/Units 17:21 17:21 20:56 RBC 3.56 L (3.80-5.40) m/uL Hgb 10.5 L (11.4-16.0) gm/dL MCHC 30.4 L (31.0-37.0) g/dL Carbon Dioxide 31 H (22-30) mmol/L BUN 58 H (7-17) mg/dL Creatinine 1.88 H (0.52-1.04) mg/dL Glucose (74-99) mg/dL POC Glucose (mg/dL) 133 H (70-110) mg/dL Phosphorus 5.7 H (2.5-4.5) mg/dL Total Protein 5.9 L (6.3-8.2) g/dL Albumin 3.1 L (3.5-5.0) g/dL TSH 6.790 H (0.465-4.680) mIU/L Urine Blood (Negative) Ur Leukocyte Esterase (Negative) Urine RBC (0-5) /hpf Urine WBC (0-5) /hpf Urine Bacteria (None) /hpf Urine Yeast (Budding) (None) /hpf 11/29/24 11/29/24 11/30/24 Range/Units 22:45 23:07 00:00 RBC 3.44 L (3.80-5.40) m/uL Hgb 10.4 L (11.4-16.0) gm/dL MCHC 30.7 L (31.0-37.0) g/dL Carbon Dioxide (22-30) mmol/L BUN (7-17) mg/dL Creatinine (0.52-1.04) mg/dL Glucose (74-99) mg/dL POC Glucose (mg/dL) 213 H (70-110) mg/dL Phosphorus (2.5-4.5) mg/dL Total Protein (6.3-8.2) g/dL Albumin (3.5-5.0) g/dL TSH (0.465-4.680) mIU/L Urine Blood Small H (Negative) Ur Leukocyte Esterase Large H (Negative) Urine RBC 11 H (0-5) /hpf Urine WBC 20 H (0-5) /hpf Urine Bacteria Occasional H (None) /hpf Urine Yeast (Budding) Rare H (None) /hpf 11/30/24 11/30/24 Range/Units 00:00 06:23 RBC (3.80-5.40) m/uL Hgb (11.4-16.0) gm/dL MCHC (31.0-37.0) g/dL Carbon Dioxide 33 H (22-30) mmol/L BUN 59 H (7-17) mg/dL Creatinine 1.95 H (0.52-1.04) mg/dL Glucose 184 H (74-99) mg/dL POC Glucose (mg/dL) 151 H (70-110) mg/dL Phosphorus (2.5-4.5) mg/dL Total Protein (6.3-8.2) g/dL Albumin (3.5-5.0) g/dL TSH (0.465-4.680) mIU/L Urine Blood (Negative) Ur Leukocyte Esterase (Negative) Urine RBC (0-5) /hpf Urine WBC (0-5) /hpf Urine Bacteria (None) /hpf Urine Yeast (Budding) (None) /hpf Assessment and Plan Assessment: 1. Acute exacerbation CHF -Patient received IV Lasix in ED; we will continue with current dose -2D echo; low-salt and fluid restricted diet; monitor QUENTIN's -Consult cardiology 2. UTI; ceftriaxone 2 mg IV daily; await urine culture results for further re commendations 3. Acute renal injury; we will hold off on IV fluid hydration given acute renal injury; we will monitor strict QUENTIN's, daily weights, renal function electrolytes; avoid nephrotoxins and hypotension 4. Paroxysmal atrial fibrillation; amiodarone 100 mg daily; Eliquis 2.5 mg twice daily 5. Hyperlipidemia; Lipitor 10 mg p.o. nightly 6. Diabetes mellitus with long-term insulin use; Lantus 36 units subcu daily along with Accu-Cheks before every meal and at bedtime with insulin sliding scale 7. Hypertension; Norvasc 10 mg daily; metoprolol 25 mg twice daily; losartan 50 mg daily 8. Hypothyroidism; levothyroxine 75 mcg daily 9. Parkinson's with extensive tremors; continue with home dose of carbidopa and primidone DVT prophylaxis; SCDs CODE STATUS; full code
--- NOTE | 2024-12-01 17:49 | P.PN ---
Subjective Progress Note Date: 12/01/24 79-year-old female past medical history Parkinson's, CHF, atrial fibrillation on Eliquis presenting today for generalized weakness. Patient presents with her caregiver and daughter at [facility] who provided vast majority of history. 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 patient began to have increasing weakness, not wanting to go to doctors appointment, due to generalized weakness not being able to get out of bed. Patient does typically ambulate with assistance has been too weak to walk over the course of the last week. Patient's caregiver monitors her pulse ox closely and 2 days ago noted patient's pulse ox to be 82% during the day. Patient does typically wear 2 L oxygen at night but does not require oxygen during the day. No history of COPD. Patient not had any fevers, no episodes of emesis, she did have 1 soft stool earlier today but otherwise no diarrhea, black or bloody stools. Patient has chronic abdominal pain but no new pain. Patient's caregiver states patient has not had any strokelike symptoms and is at baseline with the exception of her increased weakness. Patient has not any episodes of increased work of breathing/shortness of breath. She has not increased bilateral lower extremity swelling. Was recently on a course of oral antibiotics for toe infection that has improved. No recent falls. Blood work completed in ED reveals a WBC of 7 1, hemoglobin of 10.4 and platelet count of 190, sodium 141, potassium 4.9, BUNs/creatinine 59/1.95 and blood glucose of 184, troponin of 0.015, BNP elevated at 1620 UA is positive for leukocyte esterase, WBCs and bacteria Chest x-ray showed small bilateral pleural effusion with pulmonary vascular congestions - EKG showed sinus mechanism with no significant ST or T wave abnormalities noted. 12/01/2024 Patient seen and evaluated in room at bedside; reports improvement in breathing; complains of back pain Vital signs are reviewed; patient is somewhat bradycardic with heart rate in 50s; blood pressure remains stable at 144/64 -Cardiology on; recommending to cut back on dose of metoprolol -Patient has been transitioned to oral Bumex at 2 mg every morning and 1 mg nightly -- Urine culture and blood cultures have been negative; patient has received 3- day of IV Rocephin; we will discontinue -Possible discharge in next 24 hours once cleared by cardiology Objective - Vital Signs Vital signs: Vital Signs Temp 97.4 F L 12/01/24 09:08 Pulse 59 L 12/01/24 09:08 Resp 14 12/01/24 09:08 BP 135/61 12/01/24 09:08 Pulse Ox 98 12/01/24 09:08 FiO2 Intake & Output 11/30/24 12/01/24 12/01/24 18:59 06:59 18:59 Intake Total 120 Output Total 300 110 Balance -180 -110 Weight 90.718 kg 56 kg Intake: Oral 120 Output: Urine 300 110 Other: Voiding Method Diaper External Catheter External Catheter # Bowel Movements 1 - Exam CONSTITUTIONAL: No apparent distress, ill-appearing, nontoxic SKIN: Warm, dry, no jaundice, hives or petechiae, some generalized pallor EYES: Pupils are equally round, extraocular movements intact without nystagmus, clear conjunctiva, non-icteric sclera HENT: Normocephalic, atraumatic, moist mucus membranes, oropharynx clear without exudates NECK: , Full range of motion, normal appearance PULMONARY: Crackles in the bilateral lung bases, otherwise no wheezes, rhonchi, normal excursion, no accessory muscle use and no stridor CARDIOVASCULAR: Regular rate, rhythm, normal S1 and S2. No appreciated murmurs, rubs or gallops. Strong radial pulses with intact distal perfusion. 3+ bilateral lower extremity pitting edema GASTROINTESTINAL: Soft, active bowel sounds throughout, non-tender, non- distended, no palpable masses, no rebound or guarding. No hepatosplenomegaly MUSCULOSKELETAL: Extremities have no gross deformity NEUROLOGIC:_a/o x 3, GCS 15, patient is at baseline mentation and speech, speech is slowed however family states that this is patient's baseline when she becomes sick. Generalized weakness without any focal neurodeficits PSYCHIATRIC:_normal mood and affect, thought process is at baseline, able to speak in short sentances and answer questions regarding symptoms, brief history - Labs CBC & Chem 7: 12/01/24 08:18 12/01/24 08:18 Labs: Abnormal Lab Results - Last 24 Hours (Table) 11/30/24 11/30/24 11/30/24 Range/Units 11:12 16:13 19:57 RBC (3.80-5.40) m/uL Hgb (11.4-16.0) gm/dL Hct (34.0-46.0) % MCHC (31.0-37.0) g/dL Carbon Dioxide (22-30) mmol/L BUN (7-17) mg/dL Creatinine (0.52-1.04) mg/dL Glucose (74-99) mg/dL POC Glucose (mg/dL) 230 H 118 H 161 H (70-110) mg/dL Calcium (8.4-10.2) mg/dL 12/01/24 12/01/24 Range/Units 08:18 08:18 RBC 3.35 L (3.80-5.40) m/uL Hgb 9.9 L (11.4-16.0) gm/dL Hct 32.5 L (34.0-46.0) % MCHC 30.4 L (31.0-37.0) g/dL Carbon Dioxide 33 H (22-30) mmol/L BUN 55 H (7-17) mg/dL Creatinine 1.74 H (0.52-1.04) mg/dL Glucose 120 H (74-99) mg/dL POC Glucose (mg/dL) (70-110) mg/dL Calcium 8.3 L (8.4-10.2) mg/dL Microbiology - Last 24 Hours (Table) 11/29/24 22:45 Urine Culture - Preliminary Urine,Voided Assessment and Plan Assessment: 1. Acute exacerbation CHF -Patient received IV Lasix in ED; we will continue with current dose -2D echo; low-salt and fluid restricted diet; monitor QUENTIN's -Consult cardiology 2. UTI; ceftriaxone 2 mg IV daily; await urine culture results for further recommendations 3. Acute renal injury; we will hold off on IV fluid hydration given acute renal injury; we will monitor strict QUENTIN's, daily weights, renal function electrolytes; avoid nephrotoxins and hypotension 4. Paroxysmal atrial fibrillation; amiodarone 100 mg daily; Eliquis 2.5 mg twice daily 5. Hyperlipidemia; Lipitor 10 mg p.o. nightly 6. Diabetes mellitus with long-term insulin use; Lantus 36 units subcu daily along with Accu-Cheks before every meal and at bedtime with insulin sliding sca le 7. Hypertension; Norvasc 10 mg daily; metoprolol 25 mg twice daily; losartan 50 mg daily 8. Hypothyroidism; levothyroxine 75 mcg daily 9. Parkinson's with extensive tremors; continue with home dose of carbidopa and primidone DVT prophylaxis; SCDs CODE STATUS; full code
[2024-12-01] MEDS: APIXABAN 2.5 MG TABLET PO SCH (20:19)
[2024-12-01 20:42] LABS: Glucose,Whole Blood 158 mg/dL (70-110)
[2024-12-01] MEDS: IPRATROPIUM-ALBUTEROL 3 ML NEB INHALATION SCH (23:32)
[2024-12-02 00:04] LABS: ABG Base Excess 6.7 mmol/L; ABG HCO3 35 mmol/L (21-25); ABG Oxygen Saturation 92.8 % (94-97); ABG PCO2 68 mmHg (35-45); ABG PH 7.32 (7.35-7.45); ABG PO2 66 mmHg (83-108); ABG TCO2 37 mmol/L (19-24); Allen Test Performed? Yes
[2024-12-02] MEDS: hydrALAZINE HCL 20 MG/ML 1 ML VIAL IVP PRN (00:08)
--- NOTE | 2024-12-02 01:07 | XR ---
EXAM: XR Chest, 1 View CLINICAL HISTORY: ITS.REASON XR Reason: resp distress TECHNIQUE: Frontal view of the chest. COMPARISON: No relevant prior studies available. FINDINGS: Lungs: Pulmonary vascular congestion. Small effusions. Cardiomegaly. Correlate for congestive heart failure. Pleural space: Unremarkable. No pneumothorax. Heart: See above. Mediastinum: Unremarkable. Bones/joints: Unremarkable. IMPRESSION: Pulmonary vascular congestion. Small effusions. Cardiomegaly. Correlate for congestive heart failure.
[2024-12-02 06:18] LABS: Glucose,Whole Blood 119 mg/dL (70-110)
--- NOTE | 2024-12-02 07:41 | P.PN ---
Subjective Progress Note Date: 12/02/24 The patient is a pleasant 79-year-old female patient who is known to our service from before with a past medical history significant for heart failure and cardiomyopathy with EF between 40 to 45% based on echo in 2023 as well as paroxysmal atrial fibrillation hypertension and dyslipidemia and multiple com orbid conditions including a chronic hypoxic respiratory failure secondary to COPD who was admitted to the hospital from home by her caregiver because she was not feeling well with the patient is extremely poor historian. Apparently she was brought because of generalized weakness and also she has not been feeling well. No symptoms of chest pain or chest discomfort but shortness of breath appears to be her baseline. She does have also bilateral lower extremities edema which according to her has slightly increased compared to before. No other cardiovascular symptoms. She underwent further evaluation including NT proBNP came to be mildly elevated at 1600 and chest x-ray showed small bilateral pleural effusion with pulmonary vascular congestions and also EKG showed sinus mechanism with no significant ST or T wave abnormalities noted. The patient overall does not seems in any overt congestive heart failure. UA was done and showed UTI. The physical examination is remarkable for regular rhythm with a systolic murmur at the right upper sternal border and diminished breathing sounds bilaterally and mild to moderate bilateral lower extremities appears to be nonpitting edema could be her baseline from before December 01 2024 The patient was seen and evaluated this morning. Overall she seems to be stable. She is bradycardic with heart rate in the 50s. Given the generalized weakness and fatigue I would suggest decrease the dose of metoprolol from 50 mg p.o. twice daily to 25 mg p.o. twice daily. The echo showed mildly impaired LV function with EF around 45% with severe pulmonary hypertension. The physical examination is remarkable for regular rhythm with a systolic murmur at the right upper sternal border with diminished breathing sounds bilaterally and bilateral lower extremity edema probably chronic and secondary to pulmonary hypertension December 02, 2024 The patient was seen and evaluated this morning. She went into respiratory distress last night. Further evaluation was performed including chest x-ray showed finding consistent with pulmonary edema and she seems to be in failure clinically with diminished breathing sounds bilaterally and severe bilateral lower extremities edema and she is hypoxic requiring BiPAP at this point. I am going to DC Bumex orally and start the patient on IV Lasix. Continue monitor the kidney function and electrolytes. The ejection fraction was 45% and she has severe pulmonary hypertension on the echocardiogram. Assessment Generalized weakness and fatigue could be secondary to UTI History of heart failure and she is in acute heart failure Cardiomyopathy Paroxysmal atrial fibrillation Chronic hypoxic respiratory failure Sinus bradycardia Plan Continue the current medical regimen DC Bumex orally and start the patient on IV diuretics Monitor the kidney function and electrolytes Obtain NT proBNP Follow-up with the patient Objective - Vital Signs Vital signs: Vital Signs Temp 98.4 F 12/02/24 03:39 Pulse 63 12/02/24 03:39 Resp 18 12/02/24 03:39 BP 141/63 12/02/24 03:39 Pulse Ox 99 12/02/24 03:39 FiO2 50 12/02/24 04:23 Intake & Output 12/01/24 12/02/24 12/02/24 18:59 06:59 18:59 Intake Total 120 Output Total 1200 550 Balance -1080 -550 Weight 52.5 kg Intake: Oral 120 Output: Urine 1200 550 Straight 550 Other: Voiding Method External Catheter External Catheter # Bowel Movements 0 - Labs CBC & Chem 7: 12/01/24 08:18 12/01/24 08:18 Labs: Abnormal Lab Results - Last 24 Hours (Table) 12/01/24 12/01/24 12/01/24 Range/Units 08:18 08:18 16:50 RBC 3.35 L (3.80-5.40) m/uL Hgb 9.9 L (11.4-16.0) gm/dL Hct 32.5 L (34.0-46.0) % MCHC 30.4 L (31.0-37.0) g/dL ABG pH (7.35-7.45) ABG pCO2 (35-45) mmHg ABG pO2 (83-108) mmHg ABG HCO3 (21-25) mmol/L ABG Total CO2 (19-24) mmol/L ABG O2 Saturation (94-97) % Hemoglobin (11.4-16.0) gm/dL Carbon Dioxide 33 H (22-30) mmol/L BUN 55 H (7-17) mg/dL Creatinine 1.74 H (0.52-1.04) mg/dL Glucose 120 H (74-99) mg/dL POC Glucose (mg/dL) 118 H (70-110) mg/dL Calcium 8.3 L (8.4-10.2) mg/dL 12/01/24 12/02/24 12/02/24 Range/Units 20:10 00:01 06:16 RBC (3.80-5.40) m/uL Hgb (11.4-16.0) gm/dL Hct (34.0-46.0) % MCHC (31.0-37.0) g/dL ABG pH 7.32 L (7.35-7.45) ABG pCO2 68 H (35-45) mmHg ABG pO2 66 L (83-108) mmHg ABG HCO3 35 H (21-25) mmol/L ABG Total CO2 37 H (19-24) mmol/L ABG O2 Saturation 92.8 L (94-97) % Hemoglobin 10.5 L (11.4-16.0) gm/dL Carbon Dioxide (22-30) mmol/L BUN (7-17) mg/dL Creatinine (0.52-1.04) mg/dL Glucose (74-99) mg/dL POC Glucose (mg/dL) 158 H 119 H (70-110) mg/dL Calcium (8.4-10.2) mg/dL Microbiology - Last 24 Hours (Table) 11/29/24 22:45 Urine Culture - Final Urine,Voided
[2024-12-02] MEDS: FUROSEMIDE 10 MG/ML 4 ML VIAL IV SCH (08:12)
[2024-12-02 09:18] LABS: Basophils % (A) 0 %; Eosinophils # (A) 0.1 k/uL (0-0.7); Eosinophils % (A) 2 %; HCT 33.3 % (34.0-46.0); HGB 9.9 gm/dL (11.4-16.0); Hypochromasia Marked; Lymphocytes # (A) 0.8 k/uL (1.0-4.8); Lymphocytes % (A) 13 %; MCH 29.2 pg (25.0-35.0); MCHC 29.9 g/dL (31.0-37.0); MCV 97.5 fL (80.0-100.0); Mean Platelet Volume 8.9; Monocytes # (A) 0.5 k/uL (0-1.0); Monocytes % (A) 9 %; Neutrophils # (A) 4.4 k/uL (1.3-7.7); Neutrophils % (A) 75 %; Platelet Count 167 k/uL (150-450); RBC 3.41 m/uL (3.80-5.40); RDW 13.8 % (11.5-15.5); WBC 5.8 k/uL (3.8-10.6)
[2024-12-02 09:56] LABS: African American GFR (CKD) 32 (>60 ml/min/1.73 sqM); Anion Gap 5 mmol/L; Blood Urea Nitrogen 50 mg/dL (7-17); Calcium 8.6 mg/dL (8.4-10.2); Carbon Dioxide 34 mmol/L (22-30); Chloride 103 mmol/L (98-107); Glucose 110 mg/dL (74-99); Non-African American GFR(CKD) 27 (>60 ml/min/1.73 sqM); Potassium 4.2 mmol/L (3.5-5.1); Sodium 142 mmol/L (137-145)
[2024-12-02 10:04] LABS: NT-Pro-B-Type Natriuretic Pept 1810 pg/mL
[2024-12-02 11:36] LABS: Glucose,Whole Blood 96 mg/dL (70-110)
--- NOTE | 2024-12-02 11:51 | P.PN ---
Subjective Progress Note Date: 12/02/24 79-year-old female past medical history Parkinson's, CHF, atrial fibrillation on Eliquis presenting today for generalized weakness. Patient presents with her caregiver and daughter at [facility] who provided vast majority of history. 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 patient began to have increasing weakness, not wanting to go to doctors appointment, due to generalized weakness not being able to get out of bed. Patient does typically ambulate with assistance has been too weak to walk over the course of the last week. Patient's caregiver monitors her pulse ox closely and 2 days ago noted patient's pulse ox to be 82% during the day. Patient does typically wear 2 L oxygen at night but does not require oxygen during the day. No history of COPD. Patient not had any fevers, no episodes of emesis, she did have 1 soft stool earlier today but otherwise no diarrhea, black or bloody stools. Patient has chronic abdominal pain but no new pain. Patient's caregiver states patient has not had any strokelike symptoms and is at baseline with the exception of her increased weakness. Patient has not any episodes of increased work of breathing/shortness of breath. She has not increased bilateral lower extremity swelling. Was recently on a course of oral antibiotics for toe infection that has improved. No recent falls. Blood work completed in ED reveals a WBC of 7 1, hemoglobin of 10.4 and platelet count of 190, sodium 141, potassium 4.9, BUNs/creatinine 59/1.95 and blood glucose of 184, troponin of 0.015, BNP elevated at 1620 UA is positive for leukocyte esterase, WBCs and bacteria Chest x-ray showed small bilateral pleural effusion with pulmonary vascular congestions - EKG showed sinus mechanism with no significant ST or T wave abnormalities noted. 12/01/2024 Patient seen and evaluated in room at bedside; reports improvement in breathing; complains of back pain Vital signs are reviewed; patient is somewhat bradycardic with heart rate in 50s; blood pressure remains stable at 144/64 -Cardiology on; recommending to cut back on dose of metoprolol -Patient has been transitioned to oral Bumex at 2 mg every morning and 1 mg nightly -- Urine culture and blood cultures have been negative; patient has received 3- day of IV Rocephin; we will discontinue -Possible discharge in next 24 hours once cleared by cardiology 12/02/2024 Patient is seen and evaluated in room at bedside; discussed with nursing staff; patient went into acute respiratory distress through the night -Chest x-ray was completed which is consistent with pulmonary edema; patient has been placed on BiPAP at this point -- Patient has been evaluated by cardiology and Bumex has been discontinued; patient has been placed on IV Lasix; we will plan to monitor strict QUENTIN's, daily weights, renal function electrolytes -- Echocardiogram has been completed and reveals an EF of 45% and severe pulmonary hypertension -We will continue with current regimen; order BNP Objective - Vital Signs Vital signs: Vital Signs Temp 98.6 F 12/02/24 08:03 Pulse 76 12/02/24 09:02 Resp 16 12/02/24 08:03 BP 150/68 12/02/24 08:03 Pulse Ox 100 12/02/24 08:03 FiO2 50 12/02/24 08:52 Intake & Output 12/01/24 12/02/24 12/02/24 18:59 06:59 18:59 Intake Total 120 Output Total 1200 550 Balance -1080 -550 Weight 52.5 kg Intake: Oral 120 Output: Urine 1200 550 Straight 550 Other: Voiding Method External Catheter External Catheter # Bowel Movements 0 - Exam CONSTITUTIONAL: No apparent distress, ill-appearing, nontoxic SKIN: Warm, dry, no jaundice, hives or petechiae, some generalized pallor EYES: Pupils are equally round, extraocular movements intact without nystagmus, clear conjunctiva, non-icteric sclera HENT: Normocephalic, atraumatic, moist mucus membranes, oropharynx clear without exudates NECK: , Full range of motion, normal appearance PULMONARY: Crackles in the bilateral lung bases, otherwise no wheezes, rhonchi, normal excursion, no accessory muscle use and no stridor CARDIOVASCULAR: Regular rate, rhythm, normal S1 and S2. No appreciated murmurs, rubs or gallops. Strong radial pulses with intact distal perfusion. 3+ bilateral lower extremity pitting edema GASTROINTESTINAL: Soft, active bowel sounds throughout, non-tender, non- distended, no palpable masses, no rebound or guarding. No hepatosplenomegaly MUSCULOSKELETAL: Extremities have no gross deformity NEUROLOGIC:_a/o x 3, GCS 15, patient is at baseline mentation and speech, speech is slowed however family states that this is patient's baseline when she becomes sick. Generalized weakness without any focal neurodeficits PSYCHIATRIC:_normal mood and affect, thought process is at baseline, able to speak in short sentances and answer questions regarding symptoms, brief history - Labs CBC & Chem 7: 12/02/24 07:41 12/02/24 07:41 Labs: Abnormal Lab Results - Last 24 Hours (Table) 12/01/24 12/01/24 12/01/24 Range/Units 08:18 16:50 20:10 RBC (3.80-5.40) m/uL Hgb (11.4-16.0) gm/dL Hct (34.0-46.0) % MCHC (31.0-37.0) g/dL Lymphocytes # (1.0-4.8) k/uL ABG pH (7.35-7.45) ABG pCO2 (35-45) mmHg ABG pO2 (83-108) mmHg ABG HCO3 (21-25) mmol/L ABG Total CO2 (19-24) mmol/L ABG O2 Saturation (94-97) % Hemoglobin (11.4-16.0) gm/dL Carbon Dioxide 33 H (22-30) mmol/L BUN 55 H (7-17) mg/dL Creatinine 1.74 H (0.52-1.04) mg/dL Glucose 120 H (74-99) mg/dL POC Glucose (mg/dL) 118 H 158 H (70-110) mg/dL Calcium 8.3 L (8.4-10.2) mg/dL 12/02/24 12/02/24 12/02/24 Range/Units 00:01 06:16 07:41 RBC 3.41 L (3.80-5.40) m/uL Hgb 9.9 L (11.4-16.0) gm/dL Hct 33.3 L (34.0-46.0) % MCHC 29.9 L (31.0-37.0) g/dL Lymphocytes # 0.8 L (1.0-4.8) k/uL ABG pH 7.32 L (7.35-7.45) ABG pCO2 68 H (35-45) mmHg ABG pO2 66 L (83-108) mmHg ABG HCO3 35 H (21-25) mmol/L ABG Total CO2 37 H (19-24) mmol/L ABG O2 Saturation 92.8 L (94-97) % Hemoglobin 10.5 L (11.4-16.0) gm/dL Carbon Dioxide (22-30) mmol/L BUN (7-17) mg/dL Creatinine (0.52-1.04) mg/dL Glucose (74-99) mg/dL POC Glucose (mg/dL) 119 H (70-110) mg/dL Calcium (8.4-10.2) mg/dL Microbiology - Last 24 Hours (Table) 11/29/24 22:45 Urine Culture - Final Urine,Voided Assessment and Plan Assessment: 1. Acute exacerbation CHF -Patient received IV Lasix in ED; we will continue with current dose -2D echo; low-salt and fluid restricted diet; monitor QUENTIN's -Consult cardiology 2. UTI; ceftriaxone 2 mg IV daily; await urine culture results for further recommendations 3. Acute renal injury; we will hold off on IV fluid hydration given acute renal injury; we will monitor strict QUENTIN's, daily weights, renal function elec trolytes; avoid nephrotoxins and hypotension 4. Paroxysmal atrial fibrillation; amiodarone 100 mg daily; Eliquis 2.5 mg twice daily 5. Hyperlipidemia; Lipitor 10 mg p.o. nightly 6. Diabetes mellitus with long-term insulin use; Lantus 36 units subcu daily along with Accu-Cheks before every meal and at bedtime with insulin sliding scale 7. Hypertension; Norvasc 10 mg daily; metoprolol 25 mg twice daily; losartan 50 mg daily 8. Hypothyroidism; levothyroxine 75 mcg daily 9. Parkinson's with extensive tremors; continue with home dose of carbidopa and primidone DVT prophylaxis; SCDs CODE STATUS; full code
--- NOTE | 2024-12-02 12:02 | P.CNPUL ---
History of Present Illness Consult date: 11/25/24 Requesting physician: Evelio Duckworth Reason for consult: dyspnea, hypoxemia, pleural effusion, abnormal CXR/CT Chief complaint: Shortness of breath, CHF. History of present illness: Pulmonary consult dated December 02, 2024. 79-year-old female seen in the emergency department, on November 29, 2024, at about 4:15 in the afternoon. The patient apparently has a history of Parkinson's disease, atrial fibrillation, and heart failure. The patient came in with weakness, and shortness of breath. In addition, the patient was noted to have a low saturation, of 82%, on 2 L of oxygen. She typically wears the oxygen primarily at nighttime. The patient was apparently admitted with a diagnosis of congestive heart failure, and was ready for discharge, but we were consulted, last night, late, for increasing shortness of breath. The patient is seen today in room 363. She is currently on BiPAP, with settings of 12/6, and 50%. She is not receiving any IV fluids. The patient's N-terminal proBNP is 1620. She does have some 2+ lower extremity edema. Viral screen was negative. The patient was placed on IV diuretics, and was previously on oral diuretics. A blood gas was done showing a pO2 of 66, pCO2 of 68, pH is 7.32. White count is 5.8, hemoglobin 9.9, hematocrit 33.3, platelet count was normal. D-dimer was 0.28. Sodium 142, potassium 4.2, chlorides 103, CO2 34, BUN 50, creatinine 1.77. Glucose 96. Most recent N-terminal proBNP is 1810. Chest x-ray shows cardiomegaly, with pulmonary vascular congestion and CHF. Review of Systems REVIEW OF SYSTEMS: CONSTITUTIONAL: Weakness. NEUROLOGIC: [ Negative.] HEENT: [ Negative.] CARDIAC: [Negative.] PULMONARY: Shortness of breath. GI: [Negative.] : [Negative.] RHEUMATOLOGIC: [ Negative.] IMMUNOLOGIC: [ Negative.] ENDOCRINE: [Negative. ] DERMATOLOGIC: [Negative.] Past Medical History Past Medical History: Heart Failure, Diabetes Mellitus, Hyperlipidemia, Hy pertension, Pneumonia, Rheumatoid Arthritis (RA) Additional Past Medical History / Comment(s): tremors, renal lithiasis, hemorrhoids(sx done), "has had problems w/low magnesium.anemia. per spouse pt had past cancer "uterine or cervical-had hysterectomy". it was previously ch mian that pt had hx of ra and cfh spouse not able to verify this, History of Any Multi-Drug Resistant Organisms: ESBL Date of last positivie culture/infection: 09/15/23 MDRO Source:: URINE Past Surgical History: Appendectomy, Hysterectomy, Orthopedic Surgery, Tonsillectomy Additional Past Surgical History / Comment(s): rt total knee repalcement, cataracts, hemmorroidectomy, colonoscopy Past Anesthesia/Blood Transfusion Reactions: No Reported Reaction Additional Past Anesthesia/Blood Transfusion Reaction / Comment(s): per psouse- pt never receieved any blood Past Psychological History: No Psychological Hx Reported Smoking Status: Never smoker Past Alcohol Use History: None Reported Past Drug Use History: None Reported - Past Family History Mother Family Medical History: Diabetes Mellitus Father Additional Family Medical History / Comment(s): brain anuerysm Medications and Allergies Home Medications Medication Instructions Recorded Confirmed Type Primidone 75 mg PO BID 07/23/22 11/29/24 History busPIRone HCl [Buspar] 5 mg PO BID 07/23/22 11/29/24 History Apixaban [Eliquis] 5 mg PO BID tab 08/04/22 11/29/24 Rx Carbidopa-Levodopa 25-100 mg 1 tab PO TID-W/MEALS 09/14/23 11/29/24 History [Sinemet 25-100 mg] Escitalopram Oxalate [Lexapro] 10 mg PO DAILY 09/14/23 11/29/24 History Cyanocobalamin (Vitamin B-12) 1,000 mcg PO DAILY 02/27/24 11/29/24 History [Vitamin B-12] Docusate [Colace] 100 mg PO DAILY PRN 02/27/24 11/29/24 History Levothyroxine Sodium [Synthroid] 75 mcg PO AC-BRKFST 02/27/24 11/29/24 History Nitroglycerin Sl Tabs [Nitrostat] 0.4 mg SUBLINGUAL Q5M PRN 02/27/24 11/29/24 History Simethicone 180 mg PO ACHS PRN 02/27/24 11/29/24 History polyethylene glycoL 3350 [Miralax] 17 gm PO DAILY PRN 02/27/24 11/29/24 History Metoprolol Succinate (ER) [Toprol 50 mg PO BID tab 03/05/24 11/29/24 Rx XL] Acetaminophen Tab [Tylenol] 500 mg PO Q6H PRN 06/03/24 11/29/24 History Amiodarone [Cordarone] 100 mg PO DAILY 06/03/24 11/29/24 History Potassium Chloride ER [K-Dur 20] 20 meq PO DAILY 06/03/24 11/29/24 History Bumetanide [BUMEX] 2 mg PO DAILY 11/29/24 11/29/24 History Bumetanide [Bumex] 1 mg PO HS 11/29/24 11/29/24 History Famotidine [Pepcid] 20 mg PO DAILY 11/29/24 11/29/24 History Insulin Glargine,Hum.rec.anlog 20 units SQ HS PRN 11/29/24 11/29/24 History [Lantus Solostar Pen] Insulin Glargine,Hum.rec.anlog 36 units SQ DAILY 11/29/24 11/29/24 History [Lantus Solostar Pen] Insulin Lispro [humaLOG Kwikpen] See Protocol SQ TID-W/MEALS 11/29/24 11/29/24 History Losartan [Cozaar] 50 mg PO DAILY 11/29/24 11/29/24 History Simvastatin [Zocor] 10 mg PO HS 11/29/24 11/29/24 History amLODIPine [Norvasc] 10 mg PO DAILY 11/29/24 11/29/24 History Allergies Allergy/AdvReac Type Severity Reaction Status Date / Time gabapentin AdvReac Hallucinati Verified 11/29/24 16:33 ons Physical Exam Osteopathic Statement: *. No significant issues noted on an osteopathic structural exam other than those noted in the History and Physical/Consult. Vitals: Vital Signs Temp Pulse Pulse Resp BP Pulse Ox FiO2 12/02/24 09:02 76 12/02/24 08:52 76 50 12/02/24 08:03 98.6 F 16 150/68 100 50 12/02/24 04:23 50 12/02/24 03:39 98.4 F 63 18 141/63 99 60 12/02/24 01:31 72 22 12/02/24 00:15 60 12/02/24 00:07 177/75 12/02/24 00:05 94 L 50 12/01/24 23:46 78 12/01/24 23:36 75 12/01/24 23:18 189/82 12/01/24 23:15 222/83 12/01/24 23:13 97.8 F 72 22 188/78 86 L 12/01/24 20:16 97.4 F L 64 15 161/72 93 L 12/01/24 16:00 98.2 F 61 14 144/64 93 L 12/01/24 12:14 98.6 F 59 L 14 161/68 96 Intake and Output 12/01/24 12/02/24 12/02/24 22:59 06:59 14:59 Intake Total 120 Output Total 1200 550 Balance -1080 -550 Intake: Oral 120 Output: Urine 1200 550 Straight 550 Other: Voiding Method External Catheter External Catheter Weight 52.5 kg No acute distress, currently on BiPAP. HEENT examination is grossly unremarkable. Neck supple. Full range of motion. No adenopathy thyromegaly or neck vein distention. Cardiovascular examination reveals regular rhythm rate. S1-S2 normal. No S3 or S4. No discernible murmur noted. Heart sounds are distant. Lungs reveal scattered bilateral rhonchi and crackles. Breath sounds are equal. No distinct wheezes. Abdomen soft bowel sounds are heard. No masses or tenderness. Extremities are intact. No cyanosis or clubbing. 2+ lower extremity edema is noted. Skin is without rash or lesion. Neurologic examination is brief but nonfocal. Results - Laboratory Findings CBC and BMP: 12/02/24 07:41 12/02/24 07:41 ABG ABG pH 7.32 (7.35-7.45) L 12/02/24 00:01 ABG pCO2 68 mmHg (35-45) H 12/02/24 00:01 ABG pO2 66 mmHg (83-108) L 12/02/24 00:01 ABG O2 Saturation 92.8 % (94-97) L 12/02/24 00:01 PT/INR, D-dimer PT 10.4 sec (10.0-12.5) 11/29/24 17:21 INR 0.9 (<1.2) 11/29/24 17:21 D-Dimer 0.28 mg/L FEU (<0.60) 12/02/24 00:05 Abnormal lab findings: Abnormal Labs 11/29/24 11/29/24 11/29/24 17:21 17:21 20:56 RBC 3.56 L Hgb 10.5 L Hct MCHC 30.4 L Lymphocytes # ABG pH ABG pCO2 ABG pO2 ABG HCO3 ABG Total CO2 ABG O2 Saturation Hemoglobin Carbon Dioxide 31 H BUN 58 H Creatinine 1.88 H Glucose POC Glucose (mg/dL) 133 H Calcium Phosphorus 5.7 H Total Protein 5.9 L Albumin 3.1 L TSH 6.790 H Urine Blood Ur Leukocyte Esterase Urine RBC Urine WBC Urine Bacteria Urine Yeast (Budding) 11/29/24 11/29/24 11/30/24 22:45 23:07 00:00 RBC 3.44 L Hgb 10.4 L Hct MCHC 30.7 L Lymphocytes # ABG pH ABG pCO2 ABG pO2 ABG HCO3 ABG Total CO2 ABG O2 Saturation Hemoglobin Carbon Dioxide BUN Creatinine Glucose POC Glucose (mg/dL) 213 H Calcium Phosphorus Total Protein Albumin TSH Urine Blood Small H Ur Leukocyte Esterase Large H Urine RBC 11 H Urine WBC 20 H Urine Bacteria Occasional H Urine Yeast (Budding) Rare H 11/30/24 11/30/24 11/30/24 00:00 06:23 11:12 RBC Hgb Hct MCHC Lymphocytes # ABG pH ABG pCO2 ABG pO2 ABG HCO3 ABG Total CO2 ABG O2 Saturation Hemoglobin Carbon Dioxide 33 H BUN 59 H Creatinine 1.95 H Glucose 184 H POC Glucose (mg/dL) 151 H 230 H Calcium Phosphorus Total Protein Albumin TSH Urine Blood Ur Leukocyte Esterase Urine RBC Urine WBC Urine Bacteria Urine Yeast (Budding) 11/30/24 11/30/24 12/01/24 16:13 19:57 08:18 RBC 3.35 L Hgb 9.9 L Hct 32.5 L MCHC 30.4 L Lymphocytes # ABG pH ABG pCO2 ABG pO2 ABG HCO3 ABG Total CO2 ABG O2 Saturation Hemoglobin Carbon Dioxide BUN Creatinine Glucose POC Glucose (mg/dL) 118 H 161 H Calcium Phosphorus Total Protein Albumin TSH Urine Blood Ur Leukocyte Esterase Urine RBC Urine WBC Urine Bacteria Urine Yeast (Budding) 12/01/24 12/01/24 12/01/24 08:18 16:50 20:10 RBC Hgb Hct MCHC Lymphocytes # ABG pH ABG pCO2 ABG pO2 ABG HCO3 ABG Total CO2 ABG O2 Saturation Hemoglobin Carbon Dioxide 33 H BUN 55 H Creatinine 1.74 H Glucose 120 H POC Glucose (mg/dL) 118 H 158 H Calcium 8.3 L Phosphorus Total Protein Albumin TSH Urine Blood Ur Leukocyte Esterase Urine RBC Urine WBC Urine Bacteria Urine Yeast (Budding) 12/02/24 12/02/24 12/02/24 00:01 06:16 07:41 RBC 3.41 L Hgb 9.9 L Hct 33.3 L MCHC 29.9 L Lymphocytes # 0.8 L ABG pH 7.32 L ABG pCO2 68 H ABG pO2 66 L ABG HCO3 35 H ABG Total CO2 37 H ABG O2 Saturation 92.8 L Hemoglobin 10.5 L Carbon Dioxide BUN Creatinine Glucose POC Glucose (mg/dL) 119 H Calcium Phosphorus Total Protein Albumin TSH Urine Blood Ur Leukocyte Esterase Urine RBC Urine WBC Urine Bacteria Urine Yeast (Budding) 12/02/24 07:41 RBC Hgb Hct MCHC Lymphocytes # ABG pH ABG pCO2 ABG pO2 ABG HCO3 ABG Total CO2 ABG O2 Saturation Hemoglobin Carbon Dioxide 34 H BUN 50 H Creatinine 1.77 H Glucose 110 H POC Glucose (mg/dL) Calcium Phosphorus Total Protein Albumin TSH Urine Blood Ur Leukocyte Esterase Urine RBC Urine WBC Urine Bacteria Urine Yeast (Budding) - Diagnostic Findings Chest x-ray: image reviewed Assessment and Plan Assessment: Acute hypoxemic respiratory failure, secondary to acute exacerbation of CHF. History of cardiomyopathy. Paroxysmal atrial fibrillation. History of urinary tract infection. History of diabetes mellitus. History of hypertension. History of hyperlipidemia. History of rheumatoid arthritis. Multiple other medical problems and comorbidities. Plan: Plan dated December 02, 2024. The patient was seen in consultation this morning. She was admitted a few days ago. She is currently on BiPAP, with settings of 12/6, and 50%. She apparently was doing relatively well was ready for discharge, but developed acute shortness of breath last night. Chest wound we were consulted. Blood gas shows a pO2 of 66, pCO2 of 68, pH is 7.32. Cardiology changed her from oral to IV diuretics. Her BNP was initially 1620, with follow-up BMP being 1810. Viral studies were negative. Her examination was consistent with fluid overload, because she had basilar crackles, and significant lower extremity edema. We will continue to follow make recommendations along the way. Prognosis is guarded. Dictation was produced using [employer] software. Please excuse any grammatical, word or spelling errors. Time with Patient: Greater than 30
[2024-12-02 16:20] LABS: Glucose,Whole Blood 172 mg/dL (70-110)
[2024-12-02 20:29] LABS: Glucose,Whole Blood 271 mg/dL (70-110)
[2024-12-03 06:16] LABS: Glucose,Whole Blood 65 mg/dL (70-110)
[2024-12-03 06:17] LABS: Glucose,Whole Blood 68 mg/dL (70-110)
[2024-12-03] MEDS ORDERED: DEXTROSE 50% SYRINGE 50 ML IVP PRN (06:22)
[2024-12-03] MEDS: DEXTROSE 50% SYRINGE 50 ML IVP PRN (06:28)
[2024-12-03 06:52] LABS: Glucose,Whole Blood 187 mg/dL (70-110)
[2024-12-03 11:24] LABS: Glucose,Whole Blood 97 mg/dL (70-110)
--- NOTE | 2024-12-03 13:45 | CDI ---
Documentation Clarification Form Date: 12/03/2024 01:22:05 PM From: Cherise Miles RN CCDS Phone: [phone] Admit Date: 11/29/2024 08:25:00 PM Patient Name: Luisa Umaña Visit Number: [id number] Discharge Date: ATTENTION: The Clinical Documentation Specialists (CDI) and [facility] Coding Staff appreciate your assistance in clarifying documentation. Please respond to the clarification below the line at the bottom and electronically sign. The CDI & [facility] Coding staff will review the response and follow-up if needed. Please note: Queries are made part of the Legal Health Record. If you have any questions, please contact the author of this message via ITS. Doctor: Edin Harper Your patient has the documented diagnosis of Acute CHF 12/02, Medicine note]. Additional information regarding the type of CHF is requested. History/Risk Factors: 79 year old female presents to t the ED with generalized weakness. Medical history: Heart Failure, DM, HLD and HTN. 11/29 HP. Clinical Indicators: VS/Pulse OX, 11/29 B/P 167/69, HR 65, Temp 97.7F Axillary, RR 20, SpO2 93% 4Lnc BNP, 11/29: 1620 Echocardiogram Results, 11/30: EF 45-50% mild LV systolic dysfunction Severe pulmonary htn Chest X Ray, 11/29: Cardiomegaly pulmonary vascular congestion and bilateral small pleural effusions. Treatment: 11/29 Bumex IVP x 1; 11/29 12/01 Bumex po HS; 11/30 Bumex po Daily; 11/29 Toprol Xl 50MG PO BID; 12/02 Lasix IV 40mg Q12H, 12/01 Toprol Xl 25mg po BID, In your professional opinion, can you please clarify the [acuity and type] of CHF if known? [ ] Acute on Chronic Diastolic Heart Failure (preserved EF) [x ] Acute on Chronic Systolic & Diastolic Heart Failure [ ] Other, please specify [ ] Unable to determine (Template Last Revised: October 2020) MTDD
--- NOTE | 2024-12-03 15:55 | P.PN ---
Subjective Progress Note Date: 12/03/24 Interval History: 79-year-old female past medical history Parkinson's, CHF, atrial fibrillation on Eliquis presenting today for generalized weakness. Patient presents with her caregiver and daughter at [facility] who provided vast majority of history. 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 patient began to have increasing weakness, not wanting to go to doctors appointment, due to generalized weakness not being able to get out of bed. Patient does typically ambulate with assistance has been too weak to walk over the course of the last week. Patient's caregiver monitors her pulse ox closely and 2 days ago noted patient's pulse ox to be 82% during the day. Henrry bell does typically wear 2 L oxygen at night but does not require oxygen during the day. No history of COPD. Patient not had any fevers, no episodes of emesis, she did have 1 soft stool earlier today but otherwise no diarrhea, black or bloody stools. Patient has chronic abdominal pain but no new pain. Patient's caregiver states patient has not had any strokelike symptoms and is at baseline with the exception of her increased weakness. Patient has not any episodes of increased work of breathing/shortness of breath. She has not increased bilateral lower extremity swelling. Was recently on a course of oral antibiotics for toe infection that has improved. No recent falls. Blood work completed in ED reveals a WBC of 7 1, hemoglobin of 10.4 and platelet count of 190, sodium 141, potassium 4.9, BUNs/creatinine 59/1.95 and blood glucose of 184, troponin of 0.015, BNP elevated at 1620 UA is positive for leukocyte esterase, WBCs and bacteria Chest x-ray showed small bilateral pleural effusion with pulmonary vascular congestions - EKG showed sinus mechanism with no significant ST or T wave abnormalities noted. 12/01/2024 Patient seen and evaluated in room at bedside; reports improvement in breathing; complains of back pain Vital signs are reviewed; patient is somewhat bradycardic with heart rate in 50s; blood pressure remains stable at 144/64 -Cardiology on; recommending to cut back on dose of metoprolol -Patient has been transitioned to oral Bumex at 2 mg every morning and 1 mg nightly -- Urine culture and blood cultures have been negative; patient has received 3- day of IV Rocephin; we will discontinue -Possible discharge in next 24 hours once cleared by cardiology 12/02/2024 Patient is seen and evaluated in room at bedside; discussed with nursing staff; patient went into acute respiratory distress through the night -Chest x-ray was completed which is consistent with pulmonary edema; patient has been placed on BiPAP at this point -- Patient has been evaluated by cardiology and Bumex has been discontinued; patient has been placed on IV Lasix; we will plan to monitor strict QUENTIN's, daily weights, renal function electrolytes -- Echocardiogram has been completed and reveals an EF of 45% and severe pulmonary hypertension -We will continue with current regimen; order BNP 12/03--patient was seen and examined today. Patient is afebrile, heart rate 68, respiratory rate 16, blood pressure 133/63, saturating 92% on 3 L. Patient on IV Lasix for diuresis. Cardiology and pulmonary following. On Rocephin for UTI. PT/OT consulted. Assessment and plan: Acute on chronic systolic CHF: Acute hypoxic respiratory failure: Sinus bradycardia: Severe pulmonary hypertension: Hypertension Hyperlipidemia COPD: Presented with generalized weakness During hospitalization patient's started complain of shortness of breath, required BiPAP, VBG showed pCO2 of 68. Chest x-ray showed cardiomegaly with pulmonary venous congestion and CHF. Echocardiogram showed EF 45%, severe pulmonary hypertension Pulmonary consulted--recommended to continue IV diuresis. Cardiology consultedswitched oral Bumex to IV Lasix Monitor daily weight and I&O's, cardiac diet with fluid restriction. Continue home med: Amiodarone, amlodipine, Eliquis, statin, losartan, metoprolol. Paroxysmal A-fib: Amiodarone Eliquis UTI: Generalized weakness Fall precautions-PT/OT consult Rocephin for UTI Diabetes mellitus: Continue Lantus, sliding scale Accu-Cheks, diabetic diet Hypothyroidism: Synthroid Parkinson's disease with extensive tremors: Dementia: Continue carbidopa, primidone History of RA Multiple comorbidities: DVT prophylaxis: Anticoagulated Disposition: PT/OT consulted, anticipate subacute rehab. Monitor vital signs and labs Labs and medication were reviewed. Continue same treatment. Further recommendations as per clinical course of the patient PHYSICAL EXAMINATION: GENERAL: The patient is A&O x1-2, NAD HEENT: EOMI, Sclerae anicteric, Moist Mucous membranes Neck: Supple, Non tender, No JVD PULMONARY: Equal breath souds B/L, No wheezing, + crackles. CARDIOVASCULAR: S1, S2 present. No murmurs, rubs, or gallops. ABDOMEN: Soft, nontender, nondistended, normoactive bowel sounds. No guarding or rebound tenderness. MUSCULOSKELETAL: + edema, No cyanosis. No clubbing. Normal ROM. Intact peripheral pulses. NEUROLOGICAL: CN 2-12 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. No FND Skin: No Rash REVIEW OF SYSTEMS: Limited review system due to dementia. Dictation was produced using [employer] dictation software. please excuse any grammatical, word or spelling errors. Objective - Vital Signs Vital signs: Vital Signs Temp 98.4 F 12/03/24 15:31 Pulse 68 12/03/24 15:31 Resp 16 12/03/24 15:31 BP 133/63 12/03/24 15:31 Pulse Ox 93 L 12/03/24 15:31 FiO2 50 12/02/24 21:30 Intake & Output 12/02/24 12/03/24 12/03/24 18:59 06:59 18:59 Intake Total 200 600 Output Total 954 748 5368 Balance -500 500 -575 Intake: Oral 200 600 Output: Urine 820 778 9549 Other: Voiding Method Indwelling Catheter Indwelling Catheter Indwelling Catheter # Bowel Movements 2 - Labs CBC & Chem 7: 12/02/24 07:41 12/02/24 07:41 Labs: Abnormal Lab Results - Last 24 Hours (Table) 12/02/24 12/02/24 12/03/24 Range/Units 16:17 20:05 05:52 POC Glucose (mg/dL) 172 H 271 H 65 L (70-110) mg/dL 12/03/24 12/03/24 Range/Units 06:13 06:49 POC Glucose (mg/dL) 68 L 187 H (70-110) mg/dL
--- NOTE | 2024-12-03 15:57 | P.PN ---
Subjective Progress Note Date: 12/03/24 79-year-old female seen in the emergency department, on November 29, 2024, at about 4:15 in the afternoon. The patient apparently has a history of Parkinson's disease, atrial fibrillation, and heart failure. The patient came in with weakness, and shortness of breath. In addition, the patient was noted to have a low saturation, of 82%, on 2 L of oxygen. She typically wears the oxygen primarily at nighttime. The patient was apparently admitted with a diagnosis of congestive heart failure, and was ready for discharge, but we were consulted, last night, late, for increasing shortness of breath. The patient is seen today in room 363. She is currently on BiPAP, with settings of 12/6, and 50%. She is not receiving any IV fluids. The patient's N-terminal proBNP is 1620. She does have some 2+ lower extremity edema. Viral screen was negative. The patient was placed on IV diuretics, and was previously on oral diuretics. A blood gas was done showing a pO2 of 66, pCO2 of 68, pH is 7.32. White count is 5.8, hemoglobin 9.9, hematocrit 33.3, platelet count was normal. D-dimer was 0.28. Sodium 142, potassium 4.2, chlorides 103, CO2 34, BUN 50, creatinine 1.77. Glucose 96. Most recent N-terminal proBNP is 1810. Chest x-ray shows cardiomegaly, with pulmonary vascular congestion and CHF. On 12/03/2024, patient is being seen for a follow-up. This is a 79-year-old female patient who is being seen in follow-up for an acute CHF exacerbation. The patient had considered elevated proBNP level at time of admission and the chest x-ray showed bilateral pleural effusion and pulmonary vessel congestion. The patient also has paroxysmal atrial fibrillation and she remains on a combination of amiodarone 100 mg p.o. daily, metoprolol 25 mg p.o. twice a day and anticoagulation with Eliquis. She continues to receive diuretics and the patient is on Lasix 40 mg IV push every 12 hours with a negative fluid balance of 1 L over the past 24 hours. Currently she is on 3 L of oxygen by nasal can nula. She is chronically debilitated with Parkinson disease and dementia and she is unable to volunteer any meaningful history at this point. Blood work from yesterday was noted. No new blood work from today. BUN was 50 with a creatinine of 1.7. Electrolytes were stable with a serum bicarb of 34. The viral 4 Plex was negative. Hemoglobin from yesterday was at 9.9. No other significant events overnight. Echocardiogram that was done on 11/30/2024 showed mildly impaired LV function with an EF of around 45 to 50%. Mild RV dilatation. Severe pulm hypertension with RVSP of 60. The patient has mild tricuspid regurgitation. Objective - Vital Signs Vital signs: Vital Signs Temp 98.2 F 12/03/24 08:00 Pulse 71 12/03/24 11:47 Resp 16 12/03/24 11:47 BP 145/64 12/03/24 11:47 Pulse Ox 91 L 12/03/24 11:47 FiO2 50 12/02/24 21:30 Intake & Output 12/02/24 12/03/24 12/03/24 18:59 06:59 18:59 Intake Total 200 360 Output Total 700 500 875 Balance -500 -500 -515 Intake: Oral 200 360 Output: Urine 700 500 875 Other: Voiding Method Indwelling Catheter Indwelling Catheter Indwelling Catheter # Bowel Movements 2 - Exam No acute distress, currently on off the BiPAP and the patient is currently on 4 L of oxygen nasal cannula. HEENT examination is grossly unremarkable. Neck supple. Full range of motion. No adenopathy thyromegaly or neck vein distention. Cardiovascular examination reveals regular rhythm rate. S1-S2 normal. No S3 or S4. No discernible murmur noted. Heart sounds are distant. Lungs reveal scattered bilateral rhonchi and crackles. Breath sounds are equal. No distinct wheezes. Abdomen soft bowel sounds are heard. No masses or tenderness. Extremities are intact. No cyanosis or clubbing. 2+ lower extremity edema is noted. Skin is without rash or lesion. Neurologic examination is brief but nonfocal. - Labs CBC & Chem 7: 12/02/24 07:41 12/02/24 07:41 Labs: Abnormal Lab Results - Last 24 Hours (Table) 12/02/24 12/02/24 12/03/24 Range/Units 16:17 20:05 05:52 POC Glucose (mg/dL) 172 H 271 H 65 L (70-110) mg/dL 12/03/24 12/03/24 Range/Units 06:13 06:49 POC Glucose (mg/dL) 68 L 187 H (70-110) mg/dL Assessment and Plan Plan: Acute hypoxemic respiratory failure, secondary to acute exacerbation of CHF. The patient is currently off BiPAP and the patient is currently on 4 L of oxygen by nasal cannula. His CHF is being optimized and the patient is currently on Lasix 40 mg IV every 12 hours. Echocardiogram was noted and it shows 11 to ejection fraction of 40 to 45%. She does have severe pulm hypertension. The patient is currently off the BiPAP. This patient CHF. Patient has mild systolic heart failure and evidence of s evere pulmonary hypertension with right with acute systolic pressure of around 60 based on an echocardiogram that was done on 11/29/2024. No significant valvular abnormalities. proBNP level at time of admission was considerably elevated at 18 1800 and the patient had pulm vessel congestion and bilateral pleural effusions noted on the chest x-ray. 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 Paroxysmal atrial fibrillation. Patient is currently on anticoagulation with Eliquis. The patient is also on amiodarone 100 mg p.o. daily. She is on metoprolol 25 mg p.o. twice daily. Generalized weakness Frequent falls History of Parkinson's disease History of hypertension History of hyperlipidemia Diabetes mellitus, insulin-dependent Hypothyroidism History of rheumatoid arthritis History of cervical spine stenosis History of right femur fracture Obesity Hard of hearing Plan: Titrate oxygen flow to maintain saturation above 90% Keep the patient off the BiPAP Patient currently on 4 L of oxygen by nasal cannula Continue IV Lasix Repeat chest x-ray for the next 24 to 48 hours Pneumonia is doubtful that the patient is currently covered empiric with IV Rocephin Continue metoprolol Continue amiodarone Continue anticoagulation with Eliquis Aspiration precautions One-to-one feeding Long-term prognosis poor based on above-mentioned comorbidities. Will continue to follow. Time with Patient: Greater than 30
[2024-12-03 16:22] LABS: Glucose,Whole Blood 77 mg/dL (70-110)
[2024-12-03 20:09] LABS: Glucose,Whole Blood 237 mg/dL (70-110)
--- NOTE | 2024-12-03 21:56 | P.PN ---
Subjective Progress Note Date: 12/03/24 The patient is a pleasant 79-year-old female patient who is known to our service from before with a past medical history significant for heart failure and cardiomyopathy with EF between 40 to 45% based on echo in 2023 as well as paroxysmal atrial fibrillation hypertension and dyslipidemia and multiple com orbid conditions including a chronic hypoxic respiratory failure secondary to COPD who was admitted to the hospital from home by her caregiver because she was not feeling well with the patient is extremely poor historian. Apparently she was brought because of generalized weakness and also she has not been feeling well. No symptoms of chest pain or chest discomfort but shortness of breath appears to be her baseline. She does have also bilateral lower extremities edema which according to her has slightly increased compared to before. No other cardiovascular symptoms. She underwent further evaluation including NT proBNP came to be mildly elevated at 1600 and chest x-ray showed small bilateral pleural effusion with pulmonary vascular congestions and also EKG showed sinus mechanism with no significant ST or T wave abnormalities noted. The patient overall does not seems in any overt congestive heart failure. UA was done and showed UTI. The physical examination is remarkable for regular rhythm with a systolic murmur at the right upper sternal border and diminished breathing sounds bilaterally and mild to moderate bilateral lower extremities appears to be nonpitting edema could be her baseline from before December 01 2024 The patient was seen and evaluated this morning. Overall she seems to be stable. She is bradycardic with heart rate in the 50s. Given the generalized weakness and fatigue I would suggest decrease the dose of metoprolol from 50 mg p.o. twice daily to 25 mg p.o. twice daily. The echo showed mildly impaired LV function with EF around 45% with severe pulmonary hypertension. The physical examination is remarkable for regular rhythm with a systolic murmur at the right upper sternal border with diminished breathing sounds bilaterally and bilateral lower extremity edema probably chronic and secondary to pulmonary hypertension December 02, 2024 The patient was seen and evaluated this morning. She went into respiratory distress last night. Further evaluation was performed including chest x-ray showed finding consistent with pulmonary edema and she seems to be in failure clinically with diminished breathing sounds bilaterally and severe bilateral lower extremities edema and she is hypoxic requiring BiPAP at this point. I am going to DC Bumex orally and start the patient on IV Lasix. Continue monitor the kidney function and electrolytes. The ejection fraction was 45% and she has severe pulmonary hypertension on the echocardiogram. 12/03/2024 Seen and examined at bedside this a.m., no acute events overnight Intermittent BiPAP use Assessment Generalized weakness and fatigue could be secondary to UTI Acute HFmrEF, EF 45% Cardiomyopathy Severe pulmonary hypertension Paroxysmal atrial fibrillation Chronic hypoxic respiratory failure Sinus bradycardia CKD stage IV Type 2 diabetes Plan Eliquis 2.5 mg twice daily, amiodarone 100 mg daily, metoprolol 25 mg twice daily Losartan 50 mg daily, Lasix 40 mg twice daily. Not doing SGLT2 because of recent UTI Consider transitioning to p.o. diuretics in next 24 to 48 hours Objective - Vital Signs Vital signs: Vital Signs Temp 98.4 F 12/03/24 15:31 Pulse 73 12/03/24 20:33 Resp 22 12/03/24 20:33 BP 133/63 12/03/24 15:31 Pulse Ox 93 L 12/03/24 15:31 FiO2 50 12/03/24 20:25 Intake & Output 12/03/24 12/03/24 12/04/24 06:59 18:59 06:59 Intake Total 600 Output Total 500 1175 Balance -500 -575 Intake: Oral 600 Output: Urine 500 1175 Other: Voiding Method Indwelling Catheter Indwelling Catheter # Bowel Movements 1 - Labs CBC & Chem 7: 12/02/24 07:41 12/02/24 07:41 Labs: Abnormal Lab Results - Last 24 Hours (Table) 12/03/24 12/03/24 12/03/24 Range/Units 05:52 06:13 06:49 POC Glucose (mg/dL) 65 L 68 L 187 H (70-110) mg/dL 12/03/24 Range/Units 20:08 POC Glucose (mg/dL) 237 H (70-110) mg/dL
[2024-12-04 06:00] LABS: Glucose,Whole Blood 63 mg/dL (70-110)
[2024-12-04 06:21] LABS: Glucose,Whole Blood 102 mg/dL (70-110)
[2024-12-04] MEDS: IPRATROPIUM-ALBUTEROL 3 ML NEB INHALATION SCH (08:32)
[2024-12-04 08:38] LABS: Basophils % (A) 0 %; Eosinophils # (A) 0.2 k/uL (0-0.7); Eosinophils % (A) 3 %; HCT 33.7 % (34.0-46.0); HGB 10.2 gm/dL (11.4-16.0); Hypochromasia Marked; Lymphocytes # (A) 0.8 k/uL (1.0-4.8); Lymphocytes % (A) 9 %; MCH 29.6 pg (25.0-35.0); MCHC 30.2 g/dL (31.0-37.0); MCV 97.9 fL (80.0-100.0); Mean Platelet Volume 7.6; Monocytes # (A) 0.7 k/uL (0-1.0); Monocytes % (A) 8 %; Neutrophils # (A) 6.5 k/uL (1.3-7.7); Neutrophils % (A) 78 %; Platelet Count 183 k/uL (150-450); RBC 3.44 m/uL (3.80-5.40); RDW 13.7 % (11.5-15.5); WBC 8.3 k/uL (3.8-10.6)
[2024-12-04 08:45] LABS: African American GFR (CKD) 36 (>60 ml/min/1.73 sqM); Blood Urea Nitrogen 43 mg/dL (7-17); Calcium 8.2 mg/dL (8.4-10.2); Chloride 99 mmol/L (98-107); Glucose 111 mg/dL (74-99); Magnesium 1.9 mg/dL (1.6-2.3); Non-African American GFR(CKD) 31 (>60 ml/min/1.73 sqM); Potassium 4.1 mmol/L (3.5-5.1); Sodium 141 mmol/L (137-145)
[2024-12-04 08:51] LABS: Anion Gap 7 mmol/L; Carbon Dioxide 35 mmol/L (22-30)
[2024-12-04 11:33] LABS: Glucose,Whole Blood 198 mg/dL (70-110)
--- NOTE | 2024-12-04 11:51 | XR ---
EXAMINATION TYPE: XR chest 1V portable DATE OF EXAM: 12/04/2024 CLINICAL INDICATION: Female, 79 years old with history of shortness of breath, progress study. TECHNIQUE: Single AP portable upright view of the chest is obtained. COMPARISON: Chest x-ray from 2 days earlier FINDINGS: Persistent cardiomegaly with low lung volumes and bilateral increased opacities greatest i n the lower lungs. Osseous structures are intact. IMPRESSION: Findings favor continued CHF exacerbation. Areas of underlying acute infiltrate not exclu ded. No significant change from most recent study. [facility], , 12/04/2024 11:48 AM
--- NOTE | 2024-12-04 13:06 | P.PN ---
Subjective Interval History: 79-year-old female past medical history Parkinson's, CHF, atrial fibrillation on Eliquis presenting today for generalized weakness. Patient presents with her caregiver and daughter at [facility] who provided vast majority of history. 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 patient began to have increasing weakness, not wanting to go to doctors appointment, due to generalized weakness not being able to get out of bed. Patient does typically ambulate with assistance has been too weak to walk over the course of the last week. Patient's caregiver monitors her pulse ox closely and 2 days ago noted patient's pulse ox to be 82% during the day. Patient does typically wear 2 L oxygen at night but does not require oxygen during the day. No history of COPD. Patient not had any fevers, no episodes of emesis, she did have 1 soft stool earlier today but otherwise no diarrhea, black or bloody stools. Patient has chronic abdominal pain but no new pain. Patient's caregiver states patient has not had any strokelike symptoms and is at baseline with the exception of her increased weakness. Patient has not any episodes of increased work of breathing/shortness of breath. She has not inc reased bilateral lower extremity swelling. Was recently on a course of oral antibiotics for toe infection that has improved. No recent falls. Blood work completed in ED reveals a WBC of 7 1, hemoglobin of 10.4 and platelet count of 190, sodium 141, potassium 4.9, BUNs/creatinine 59/1.95 and blood glucose of 184, troponin of 0.015, BNP elevated at 1620 UA is positive for leukocyte esterase, WBCs and bacteria Chest x-ray showed small bilateral pleural effusion with pulmonary vascular congestions - EKG showed sinus mechanism with no significant ST or T wave abnormalities noted. 12/01/2024 Patient seen and evaluated in room at bedside; reports improvement in breathing; complains of back pain Vital signs are reviewed; patient is somewhat bradycardic with heart rate in 50s; blood pressure remains stable at 144/64 -Cardiology on; recommending to cut back on dose of metoprolol -Patient has been transitioned to oral Bumex at 2 mg every morning and 1 mg nightly -- Urine culture and blood cultures have been negative; patient has received 3- day of IV Rocephin; we will discontinue -Possible discharge in next 24 hours once cleared by cardiology 12/02/2024 Patient is seen and evaluated in room at bedside; discussed with nursing staff; patient went into acute respiratory distress through the night -Chest x-ray was completed which is consistent with pulmonary edema; patient has been placed on BiPAP at this point -- Patient has been evaluated by cardiology and Bumex has been discontinued; patient has been placed on IV Lasix; we will plan to monitor strict QUENTIN's, daily weights, renal function electrolytes -- Echocardiogram has been completed and reveals an EF of 45% and severe pulmonary hypertension -We will continue with current regimen; order BNP 12/03--patient was seen and examined today. Patient is afebrile, heart rate 68, respiratory rate 16, blood pressure 133/63, saturating 92% on 3 L. Patient on IV Lasix for diuresis. Cardiology and pulmonary following. On Rocephin for UTI. PT/OT consulted. 12/04--patient was seen and examined today. Limited review system due to dementia. Afebrile, heart rate 74, respiratory rate 18, blood pressure 140/63, saturating 90% on 3 L. WBCs 8.3, hemoglobin 10.2, platelet 183. BUN is 43, creatinine 1.60 downtrending. Magnesium 1.9. Will continue IV diuresis. PT/OT consulted, anticipate ECF. Assessment and plan: Acute on chronic systolic CHF: Acute hypoxic respiratory failure: Sinus bradycardia: Severe pulmonary hypertension: Hypertension Hyperlipidemia COPD: Presented with generalized weakness During hospitalization patient's started complain of shortness of breath, required BiPAP, VBG showed pCO2 of 68. Chest x-ray showed cardiomegaly with pulmonary venous congestion and CHF. Echocardiogram showed EF 45%, severe pulmonary hypertension Pulmonary consulted--recommended to continue IV diuresis. Cardiology consultedswitched oral Bumex to IV Lasix Monitor daily weight and I&O's, cardiac diet with fluid restriction. Continue home med: Amiodarone, amlodipine, Eliquis, statin, losartan, metoprolol. Paroxysmal A-fib: Amiodarone Eliquis UTI: Generalized weakness Fall precautions-PT/OT consult Rocephin for UTI Diabetes mellitus: Continue Lantus, sliding scale Accu-Cheks, diabetic diet Hypothyroidism: Synthroid Parkinson's disease with extensive tremors: Dementia: Continue carbidopa, primidone History of RA Multiple comorbidities: DVT prophylaxis: Anticoagulated Disposition: PT/OT consulted, anticipate ECF. Monitor vital signs and labs Labs and medication were reviewed. Continue same treatment. Further recommendations as per clinical course of t he patient PHYSICAL EXAMINATION: GENERAL: The patient is A&O x1-2, NAD HEENT: EOMI, Sclerae anicteric, Moist Mucous membranes Neck: Supple, Non tender, No JVD PULMONARY: Equal breath souds B/L, No wheezing, + crackles. CARDIOVASCULAR: S1, S2 present. No murmurs, rubs, or gallops. ABDOMEN: Soft, nontender, nondistended, normoactive bowel sounds. No guarding or rebound tenderness. MUSCULOSKELETAL: + edema, No cyanosis. No clubbing. Normal ROM. Intact peripheral pulses. NEUROLOGICAL: CN 2-12 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. No FND Skin: No Rash REVIEW OF SYSTEMS: Limited review system due to dementia. Dictation was produced using [employer] dictation software. please excuse any grammatical, word or spelling errors. Objective - Vital Signs Vital signs: Vital Signs Temp 98.5 F 12/04/24 08:45 Pulse 74 12/04/24 12:23 Resp 18 12/04/24 12:23 BP 140/63 12/04/24 12:23 Pulse Ox 90 L 12/04/24 12:23 FiO2 50 12/03/24 20:25 Intake & Output 12/03/24 12/04/24 12/04/24 18:59 06:59 18:59 Intake Total 600 Output Total 1175 1000 Balance -575 -1000 Weight 52 kg Intake: Oral 600 Output: Urine 1175 1000 Other: Voiding Method Indwelling Catheter Indwelling Catheter Indwelling Catheter # Bowel Movements 1 0 - Labs CBC & Chem 7: 12/04/24 07:31 12/04/24 07:31 Labs: Abnormal Lab Results - Last 24 Hours (Table) 12/03/24 12/04/24 12/04/24 Range/Units 20:08 05:52 07:31 RBC 3.44 L (3.80-5.40) m/uL Hgb 10.2 L (11.4-16.0) gm/dL Hct 33.7 L (34.0-46.0) % MCHC 30.2 L (31.0-37.0) g/dL Lymphocytes # 0.8 L (1.0-4.8) k/uL Carbon Dioxide (22-30) mmol/L BUN (7-17) mg/dL Creatinine (0.52-1.04) mg/dL Glucose (74-99) mg/dL POC Glucose (mg/dL) 237 H 63 L (70-110) mg/dL Calcium (8.4-10.2) mg/dL 12/04/24 12/04/24 Range/Units 07:31 11:31 RBC (3.80-5.40) m/uL Hgb (11.4-16.0) gm/dL Hct (34.0-46.0) % MCHC (31.0-37.0) g/dL Lymphocytes # (1.0-4.8) k/uL Carbon Dioxide 35 H (22-30) mmol/L BUN 43 H (7-17) mg/dL Creatinine 1.60 H (0.52-1.04) mg/dL Glucose 111 H (74-99) mg/dL POC Glucose (mg/dL) 198 H (70-110) mg/dL Calcium 8.2 L (8.4-10.2) mg/dL
[2024-12-04 13:17] LABS: ABG Base Excess 10.5 mmol/L; ABG HCO3 37 mmol/L (21-25); ABG Oxygen Saturation 92.4 % (94-97); ABG PCO2 63 mmHg (35-45); ABG PH 7.38 (7.35-7.45); ABG PO2 60 mmHg (83-108); ABG TCO2 39 mmol/L (19-24); Allen Test Performed? Yes
--- NOTE | 2024-12-04 13:40 | P.PN ---
Subjective Progress Note Date: 12/04/24 The patient is a pleasant 79-year-old female patient who is known to our service from before with a past medical history significant for heart failure and cardiomyopathy with EF between 40 to 45% based on echo in 2023 as well as paroxysmal atrial fibrillation hypertension and dyslipidemia and multiple com orbid conditions including a chronic hypoxic respiratory failure secondary to COPD who was admitted to the hospital from home by her caregiver because she was not feeling well with the patient is extremely poor historian. Apparently she was brought because of generalized weakness and also she has not been feeling well. No symptoms of chest pain or chest discomfort but shortness of breath appears to be her baseline. She does have also bilateral lower extremities edema which according to her has slightly increased compared to before. No other cardiovascular symptoms. She underwent further evaluation including NT proBNP came to be mildly elevated at 1600 and chest x-ray showed small bilateral pleural effusion with pulmonary vascular congestions and also EKG showed sinus mechanism with no significant ST or T wave abnormalities noted. The patient overall does not seems in any overt congestive heart failure. UA was done and showed UTI. The physical examination is remarkable for regular rhythm with a systolic murmur at the right upper sternal border and diminished breathing sounds bilaterally and mild to moderate bilateral lower extremities appears to be nonpitting edema could be her baseline from before December 01 2024 The patient was seen and evaluated this morning. Overall she seems to be stable. She is bradycardic with heart rate in the 50s. Given the generalized weakness and fatigue I would suggest decrease the dose of metoprolol from 50 mg p.o. twice daily to 25 mg p.o. twice daily. The echo showed mildly impaired LV function with EF around 45% with severe pulmonary hypertension. The physical examination is remarkable for regular rhythm with a systolic murmur at the right upper sternal border with diminished breathing sounds bilaterally and bilateral lower extremity edema probably chronic and secondary to pulmonary hypertension December 02, 2024 The patient was seen and evaluated this morning. She went into respiratory distress last night. Further evaluation was performed including chest x-ray showed finding consistent with pulmonary edema and she seems to be in failure clinically with diminished breathing sounds bilaterally and severe bilateral lower extremities edema and she is hypoxic requiring BiPAP at this point. I am going to DC Bumex orally and start the patient on IV Lasix. Continue monitor the kidney function and electrolytes. The ejection fraction was 45% and she has severe pulmonary hypertension on the echocardiogram. 12/03/2024 Seen and examined at bedside this a.m., no acute events overnight Intermittent BiPAP use 12/04/2024 History is limited due to dementia, BP 140/63, heart rate 74 bpm, sinus rhythm on telemetry, creatinine 1.6, BUN 43. Kidney function has been stable at baseline since admission. Assessment Generalized weakness and fatigue could be secondary to UTI Acute HFmrEF exacerbation, with a EF of 45% Severe pulmonary hypertension Paroxysmal atrial fibrillation, currently in sinus rhythm Chronic hypoxic respiratory failure Sinus bradycardia CKD stage IV Type 2 diabetes Dementia Plan Discontinue IV Lasix. Resume Bumex 1 mg p.o. daily which is her home medication. Eliquis 2.5 mg twice daily, amiodarone 100 mg daily, metoprolol 25 mg twice daily Losartan 50 mg daily, amlodipine 10 mg daily Not doing SGLT2 because of recent UTI At this time patient is stable from cardiovascular standpoint. Cardiology team will sign off. Please reconsult in case of any question. Recommend outpatient follow-up with cardiology Objective - Vital Signs Vital signs: Vital Signs Temp 98.5 F 12/04/24 08:45 Pulse 80 12/04/24 13:36 Resp 18 12/04/24 12:23 BP 140/63 12/04/24 12:23 Pulse Ox 90 L 12/04/24 12:23 FiO2 50 12/03/24 20:25 Intake & Output 12/03/24 12/04/24 12/04/24 18:59 06:59 18:59 Intake Total 600 Output Total 1175 1000 Balance -575 -1000 Weight 52 kg Intake: Oral 600 Output: Urine 1175 1000 Other: Voiding Method Indwelling Catheter Indwelling Catheter Indwelling Catheter # Bowel Movements 1 0 - Labs CBC & Chem 7: 12/04/24 07:31 12/04/24 07:31 Labs: Abnormal Lab Results - Last 24 Hours (Table) 12/03/24 12/04/24 12/04/24 Range/Units 20:08 05:52 07:31 RBC 3.44 L (3.80-5.40) m/uL Hgb 10.2 L (11.4-16.0) gm/dL Hct 33.7 L (34.0-46.0) % MCHC 30.2 L (31.0-37.0) g/dL Lymphocytes # 0.8 L (1.0-4.8) k/uL ABG pCO2 (35-45) mmHg ABG pO2 (83-108) mmHg ABG HCO3 (21-25) mmol/L ABG Total CO2 (19-24) mmol/L ABG O2 Saturation (94-97) % Hemoglobin (11.4-16.0) gm/dL Carbon Dioxide (22-30) mmol/L BUN (7-17) mg/dL Creatinine (0.52-1.04) mg/dL Glucose (74-99) mg/dL POC Glucose (mg/dL) 237 H 63 L (70-110) mg/dL Calcium (8.4-10.2) mg/dL 12/04/24 12/04/24 12/04/24 Range/Units 07:31 11:31 13:13 RBC (3.80-5.40) m/uL Hgb (11.4-16.0) gm/dL Hct (34.0-46.0) % MCHC (31.0-37.0) g/dL Lymphocytes # (1.0-4.8) k/uL ABG pCO2 63 H (35-45) mmHg ABG pO2 60 L (83-108) mmHg ABG HCO3 37 H (21-25) mmol/L ABG Total CO2 39 H (19-24) mmol/L ABG O2 Saturation 92.4 L (94-97) % Hemoglobin 9.8 L (11.4-16.0) gm/dL Carbon Dioxide 35 H (22-30) mmol/L BUN 43 H (7-17) mg/dL Creatinine 1.60 H (0.52-1.04) mg/dL Glucose 111 H (74-99) mg/dL POC Glucose (mg/dL) 198 H (70-110) mg/dL Calcium 8.2 L (8.4-10.2) mg/dL
--- NOTE | 2024-12-04 15:08 | P.PN ---
Subjective Progress Note Date: 12/04/24 79-year-old female seen in the emergency department, on November 29, 2024, at about 4:15 in the afternoon. The patient apparently has a history of Parkinson's disease, atrial fibrillation, and heart failure. The patient came in with weakness, and shortness of breath. In addition, the patient was noted to have a low saturation, of 82%, on 2 L of oxygen. She typically wears the oxygen primarily at nighttime. The patient was apparently admitted with a diagnosis of congestive heart failure, and was ready for discharge, but we were consulted, last night, late, for increasing shortness of breath. The patient is seen today in room 363. She is currently on BiPAP, with settings of 12/6, and 50%. She is not receiving any IV fluids. The patient's N-terminal proBNP is 1620. She does have some 2+ lower extremity edema. Viral screen was negative. The patient was placed on IV diuretics, and was previously on oral diuretics. A blood gas was done showing a pO2 of 66, pCO2 of 68, pH is 7.32. White count is 5.8, hemoglobin 9.9, hematocrit 33.3, platelet count was normal. D-dimer was 0.28. Sodium 142, potassium 4.2, chlorides 103, CO2 34, BUN 50, creatinine 1.77. Glucose 96. Most recent N-terminal proBNP is 1810. Chest x-ray shows cardiomegaly, with pulmonary vascular congestion and CHF. On 12/03/2024, patient is being seen for a follow-up. This is a 79-year-old female patient who is being seen in follow-up for an acute CHF exacerbation. The patient had considered elevated proBNP level at time of admission and the chest x-ray showed bilateral pleural effusion and pulmonary vessel congestion. The patient also has paroxysmal atrial fibrillation and she remains on a combination of amiodarone 100 mg p.o. daily, metoprolol 25 mg p.o. twice a day and anticoagulation with Eliquis. She continues to receive diuretics and the patient is on Lasix 40 mg IV push every 12 hours with a negative fluid balance of 1 L over the past 24 hours. Currently she is on 3 L of oxygen by nasal can nula. She is chronically debilitated with Parkinson disease and dementia and she is unable to volunteer any meaningful history at this point. Blood work from yesterday was noted. No new blood work from today. BUN was 50 with a creatinine of 1.7. Electrolytes were stable with a serum bicarb of 34. The viral 4 Plex was negative. Hemoglobin from yesterday was at 9.9. No other significant events overnight. Echocardiogram that was done on 11/30/2024 showed mildly impaired LV function with an EF of around 45 to 50%. Mild RV dilatation. Severe pulm hypertension with RVSP of 60. The patient has mild tricuspid regurgitation. On 12/04/2024, the patient is being seen for a follow-up. Patient remains extremely debilitated, does not communicate properly, weak, and she continues to have significant cognitive impairment thrive related to her underlying Parkinson's disease. Her comorbidities are multiple. She does have a component of CHF with significant pulmonary hypertension. The patient has a LV ejection fraction of 40 to 45% and she presented with decompensated CHF, bilateral pleur al effusion and pulm vessel congestion and elevated proBNP level. Since then, the patient is being diuresed and the patient is currently on Bumex 1 mg p.o. daily. Fluid balance over the past 24 hours has been -1.5 L. A follow-up chest x-ray was done today and shows persistent cardiomegaly with small lung volumes and bilateral opacities mainly in the lower lobes and the findings are still consistent with CHF. The white cell count of 8.3 with a heme of 10.2 and a platelet count of 183. Blood gas was also noted and the patient has a compensated chronic respiratory acidosis with a pH of 7.38 with a pCO2 of 63 and pO2 of 60. BUN is 43 with a creatinine of 1.6 and the patient has a serum bic arb of 35 and a sodium levels at 141. Objective - Vital Signs Vital signs: Vital Signs Temp 98.5 F 12/04/24 08:45 Pulse 80 12/04/24 08:50 Resp 16 12/04/24 08:45 BP 162/72 12/04/24 08:45 Pulse Ox 94 L 12/04/24 09:20 FiO2 50 12/03/24 20:25 Intake & Output 12/03/24 12/04/24 12/04/24 18:59 06:59 18:59 Intake Total 600 Output Total 1175 1000 Balance -575 -1000 Weight 52 kg Intake: Oral 600 Output: Urine 1175 1000 Other: Voiding Method Indwelling Catheter Indwelling Catheter Indwelling Catheter # Bowel Movements 1 0 - Exam No acute distress, currently on off the BiPAP and the patient is currently on 4 L of oxygen nasal cannula. Lethargic, not communicating at this point. Generalized body stiffness and occasional tremors. HEENT examination is grossly unremarkable. Neck supple. Full range of motion. No adenopathy thyromegaly or neck vein distention. Cardiovascular examination reveals regular rhythm rate. S1-S2 normal. No S3 or S4. No discernible murmur noted. Heart sounds are distant. Lungs reveal scattered bilateral rhonchi and crackles. Breath sounds are equal. No distinct wheezes. Abdomen soft bowel sounds are heard. No masses or tenderness. Extremities are intact. No cyanosis or clubbing. 2+ lower extremity edema is noted. Skin is without rash or lesion. Neurologic examination is brief but nonfocal. - Labs CBC & Chem 7: 12/04/24 07:31 12/04/24 07:31 Labs: Abnormal Lab Results - Last 24 Hours (Table) 12/03/24 12/04/24 12/04/24 Range/Units 20:08 05:52 07:31 RBC 3.44 L (3.80-5.40) m/uL Hgb 10.2 L (11.4-16.0) gm/dL Hct 33.7 L (34.0-46.0) % MCHC 30.2 L (31.0-37.0) g/dL Lymphocytes # 0.8 L (1.0-4.8) k/uL Carbon Dioxide (22-30) mmol/L BUN (7-17) mg/dL Creatinine (0.52-1.04) mg/dL Glucose (74-99) mg/dL POC Glucose (mg/dL) 237 H 63 L (70-110) mg/dL Calcium (8.4-10.2) mg/dL 12/04/24 Range/Units 07:31 RBC (3.80-5.40) m/uL Hgb (11.4-16.0) gm/dL Hct (34.0-46.0) % MCHC (31.0-37.0) g/dL Lymphocytes # (1.0-4.8) k/uL Carbon Dioxide 35 H (22-30) mmol/L BUN 43 H (7-17) mg/dL Creatinine 1.60 H (0.52-1.04) mg/dL Glucose 111 H (74-99) mg/dL POC Glucose (mg/dL) (70-110) mg/dL Calcium 8.2 L (8.4-10.2) mg/dL Assessment and Plan Plan: Acute hypoxemic respiratory failure, secondary to acute exacerbation of CHF. The patient is currently off BiPAP and the patient is currently on 4 L of oxygen by nasal cannula. His CHF is being optimized and the patient is currently on Lasix 40 mg IV every 12 hours. Echocardiogram was noted and it shows LV ejection fraction of 40 to 45%. She does have severe pulm hypertension. The patient is currently off the BiPAP. The blood gas is consistent with chronic hypoxic/hypercapnic respiratory failure with seems to be compensated at this point. This patient CHF. Patient has mild systolic heart failure and evidence of severe pulmonary hypertension with right with acute systolic pressure of around 60 based on an echocardiogram that was done on 11/29/2024. No significant valvular abnormalities. proBNP level at time of admission was considerably elevated at 1800 and the patient had pulm vessel congestion and bilateral pleural effusions noted on the chest x-ray. 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 Paroxysmal atrial fibrillation. Patient is currently on anticoagulation with Eliquis. The patient is also on amiodarone 100 mg p.o. daily. She is on metoprolol 25 mg p.o. twice daily. Chronic stage III kidney disease, creatinine stable Generalized weakness Frequent falls History of Parkinson's disease History of hypertension History of hyperlipidemia Diabetes mellitus, insulin-dependent Hypothyroidism History of rheumatoid arthritis History of cervical spine stenosis History of right femur fracture Obesity Hard of hearing Plan: Titrate oxygen flow to maintain saturation above 90% Keep the patient off the BiPAP Patient currently on 4 L of oxygen by nasal cannula Suggest continuing the diuretics. However, cardiology switch this patient to oral Bumex. Noted the chest x-ray is consistent still with CHF with cardiomegaly and bilateral pleural effusions and pulm vessel congestion. Suggest IV diuretics with close monitoring of the renal function as the patient has chronic kidney disease. Recommend 1 mg of Bumex every 12 hours. Renal function is stable. Pneumonia is doubtful that the patient is currently covered empiric with IV Rocephin Continue metoprolol Continue amiodarone Continue anticoagulation with Eliquis Aspiration precautions One-to-one feeding Long-term prognosis poor based on above-mentioned comorbidities. Will continue to follow. Time with Patient: Greater than 30
[2024-12-04] MEDS: BUMETANIDE 1 MG TAB PO SCH (15:22)
[2024-12-04] MEDS: BUMETANIDE 0.25 MG/ML 4 ML VIAL IV SCH (15:46)
[2024-12-04 16:21] LABS: Glucose,Whole Blood 125 mg/dL (70-110)
[2024-12-04 20:09] LABS: Glucose,Whole Blood 225 mg/dL (70-110)
[2024-12-05 06:05] LABS: Glucose,Whole Blood 156 mg/dL (70-110)
[2024-12-05 07:50] LABS: HCT 33.3 % (34.0-46.0); HGB 9.9 gm/dL (11.4-16.0); Hypochromasia Marked; MCH 29.1 pg (25.0-35.0); MCHC 29.7 g/dL (31.0-37.0); MCV 97.8 fL (80.0-100.0); Mean Platelet Volume 7.4; Platelet Count 193 k/uL (150-450); RBC 3.41 m/uL (3.80-5.40); RDW 13.6 % (11.5-15.5); WBC 6.7 k/uL (3.8-10.6)
[2024-12-05 08:09] LABS: African American GFR (CKD) 35 (>60 ml/min/1.73 sqM); Anion Gap 1 mmol/L; Blood Urea Nitrogen 42 mg/dL (7-17); Calcium 8.2 mg/dL (8.4-10.2); Carbon Dioxide 39 mmol/L (22-30); Chloride 101 mmol/L (98-107); Glucose 136 mg/dL (74-99); Magnesium 1.9 mg/dL (1.6-2.3); Non-African American GFR(CKD) 30 (>60 ml/min/1.73 sqM); Potassium 4.2 mmol/L (3.5-5.1); Sodium 141 mmol/L (137-145)
[2024-12-05] MEDS: IPRATROPIUM-ALBUTEROL 3 ML NEB INHALATION PRN (10:49)
[2024-12-05 11:26] LABS: Glucose,Whole Blood 396 mg/dL (70-110)
--- NOTE | 2024-12-05 14:20 | P.PN ---
Subjective Interval History: 79-year-old female past medical history Parkinson's, CHF, atrial fibrillation on Eliquis presenting today for generalized weakness. Patient presents with her caregiver and daughter at [facility] who provided vast majority of history. 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 patient began to have increasing weakness, not wanting to go to doctors appointment, due to generalized weakness not being able to get out of bed. Patient does typically ambulate with assistance has been too weak to walk over the course of the last week. Patient's caregiver monitors her pulse ox closely and 2 days ago noted patient's pulse ox to be 82% during the day. Patient does typically wear 2 L oxygen at night but does not require oxygen during the day. No history of COPD. Patient not had any fevers, no episodes of emesis, she did have 1 soft stool earlier today but otherwise no diarrhea, black or bloody stools. Patient has chronic abdominal pain but no new pain. Patient's caregiver states patient has not had any strokelike symptoms and is at baseline with the exception of her increased weakness. Patient has not any episodes of increased work of breathing/shortness of breath. She has not inc reased bilateral lower extremity swelling. Was recently on a course of oral antibiotics for toe infection that has improved. No recent falls. Blood work completed in ED reveals a WBC of 7 1, hemoglobin of 10.4 and platelet count of 190, sodium 141, potassium 4.9, BUNs/creatinine 59/1.95 and blood glucose of 184, troponin of 0.015, BNP elevated at 1620 UA is positive for leukocyte esterase, WBCs and bacteria Chest x-ray showed small bilateral pleural effusion with pulmonary vascular congestions - EKG showed sinus mechanism with no significant ST or T wave abnormalities noted. 12/01/2024 Patient seen and evaluated in room at bedside; reports improvement in breathing; complains of back pain Vital signs are reviewed; patient is somewhat bradycardic with heart rate in 50s; blood pressure remains stable at 144/64 -Cardiology on; recommending to cut back on dose of metoprolol -Patient has been transitioned to oral Bumex at 2 mg every morning and 1 mg nightly -- Urine culture and blood cultures have been negative; patient has received 3- day of IV Rocephin; we will discontinue -Possible discharge in next 24 hours once cleared by cardiology 12/02/2024 Patient is seen and evaluated in room at bedside; discussed with nursing staff; patient went into acute respiratory distress through the night -Chest x-ray was completed which is consistent with pulmonary edema; patient has been placed on BiPAP at this point -- Patient has been evaluated by cardiology and Bumex has been discontinued; patient has been placed on IV Lasix; we will plan to monitor strict QUENTIN's, daily weights, renal function electrolytes -- Echocardiogram has been completed and reveals an EF of 45% and severe pulmonary hypertension -We will continue with current regimen; order BNP 12/03--patient was seen and examined today. Patient is afebrile, heart rate 68, respiratory rate 16, blood pressure 133/63, saturating 92% on 3 L. Patient on IV Lasix for diuresis. Cardiology and pulmonary following. On Rocephin for UTI. PT/OT consulted. 12/04--patient was seen and examined today. Limited review system due to dementia. Afebrile, heart rate 74, respiratory rate 18, blood pressure 140/63, saturating 90% on 3 L. WBCs 8.3, hemoglobin 10.2, platelet 183. BUN is 43, creatinine 1.60 downtrending. Magnesium 1.9. Will continue IV diuresis. PT/OT consulted, anticipate ECF. 12/05--patient was seen and examined today. Daughter at bedside. Daughter reported that patient's confusion is better. Patient is afebrile, heart rate 79, respiratory rate 18, blood pressure 146/73, saturating 93% on 3 L. WBC 6.7, hemoglobin 9.9, platelet 193. Sodium 141 potassium 4.2 chloride 101 CO2 39 BUN 42, creatinine 1.64stable. Discontinue Rocephin. Patient remains on IV Bumex for diuresis. Pulmonary following. Assessment and plan: Acute on chronic systolic CHF: Acute hypoxic respiratory failure: Sinus bradycardia: Severe pulmonary hypertension: Hypertension Hyperlipidemia COPD: Presented with generalized weakness During hospitalization patient's started complain of shortness of breath, required BiPAP, VBG showed pCO2 of 68. Chest x-ray showed cardiomegaly with pulmonary venous congestion and CHF. Echocardiogram showed EF 45%, severe pulmonary hypertension Pulmonary consulted--recommended to continue IV diuresis. Cardiology consulted. Monitor daily weight and I&O's, cardiac diet with fluid restriction. Continue home med: Amiodarone, amlodipine, Eliquis, statin, losartan, metoprolol. Paroxysmal A-fib: Amiodarone, metoprolol Eliquis UTI: Generalized weakness Fall precautions-PT/OT consult Rocephin for UTI Diabetes mellitus: Continue Lantus, sliding scale Accu-Cheks, diabetic diet Hypothyroidism: Synthroid Parkinson's disease with extensive tremors: Dementia: Continue carbidopa, primidone History of RA Multiple comorbidities: DVT prophylaxis: Anticoagulated Disposition: PT/OT consulted, anticipate ECF. Monitor vital signs and labs Labs and medication were reviewed. Continue same treatment. Further recommendations as per clinical course of the patient PHYSICAL EXAMINATION: GENERAL: The patient is A&O x1-2, NAD HEENT: EOMI, Sclerae anicteric, Moist Mucous membranes Neck: Supple, Non tender, No JVD PULMONARY: Equal breath souds B/L, No wheezing, + crackles. CARDIOVASCULAR: S1, S2 present. No murmurs, rubs, or gallops. ABDOMEN: Soft, nontender, nondistended, normoactive bowel sounds. No guarding or rebound tenderness. MUSCULOSKELETAL: + edema, No cyanosis. No clubbing. Normal ROM. Intact perip heral pulses. NEUROLOGICAL: CN 2-12 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. No FND Skin: No Rash REVIEW OF SYSTEMS: Limited review system due to dementia. Dictation was produced using [employer] dictation software. please excuse any grammatical, word or spelling errors. Objective - Vital Signs Vital signs: Vital Signs Temp 97.7 F 12/05/24 08:27 Pulse 87 12/05/24 11:39 Resp 18 12/05/24 11:39 BP 146/73 12/05/24 11:39 Pulse Ox 93 L 12/05/24 11:39 FiO2 50 12/03/24 20:25 Intake & Output 12/04/24 12/05/24 12/05/24 18:59 06:59 18:59 Intake Total 360 360 Output Total 550 800 800 Balance -190 -800 -440 Weight 52.5 kg Intake: Oral 360 360 Output: Urine 550 800 800 Other: Voiding Method Indwelling Catheter Indwelling Catheter Indwelling Catheter # Bowel Movements 0 1 - Labs CBC & Chem 7: 12/05/24 07:34 12/05/24 07:34 Labs: Abnormal Lab Results - Last 24 Hours (Table) 12/04/24 12/04/24 12/05/24 Range/Units 16:19 20:08 06:04 RBC (3.80-5.40) m/uL Hgb (11.4-16.0) gm/dL Hct (34.0-46.0) % MCHC (31.0-37.0) g/dL Carbon Dioxide (22-30) mmol/L BUN (7-17) mg/dL Creatinine (0.52-1.04) mg/dL Glucose (74-99) mg/dL POC Glucose (mg/dL) 125 H 225 H 156 H (70-110) mg/dL Calcium (8.4-10.2) mg/dL 12/05/24 12/05/24 12/05/24 Range/Units 07:34 07:34 11:24 RBC 3.41 L (3.80-5.40) m/uL Hgb 9.9 L (11.4-16.0) gm/dL Hct 33.3 L (34.0-46.0) % MCHC 29.7 L (31.0-37.0) g/dL Carbon Dioxide 39 H (22-30) mmol/L BUN 42 H (7-17) mg/dL Creatinine 1.64 H (0.52-1.04) mg/dL Glucose 136 H (74-99) mg/dL POC Glucose (mg/dL) 396 H (70-110) mg/dL Calcium 8.2 L (8.4-10.2) mg/dL
--- NOTE | 2024-12-05 15:19 | P.PN ---
Subjective Progress Note Date: 12/05/24 79-year-old female seen in the emergency department, on November 29, 2024, at about 4:15 in the afternoon. The patient apparently has a history of Parkinson's disease, atrial fibrillation, and heart failure. The patient came in with weakness, and shortness of breath. In addition, the patient was noted to have a low saturation, of 82%, on 2 L of oxygen. She typically wears the oxygen primarily at nighttime. The patient was apparently admitted with a diagnosis of congestive heart failure, and was ready for discharge, but we were consulted, last night, late, for increasing shortness of breath. The patient is seen today in room 363. She is currently on BiPAP, with settings of 12/6, and 50%. She is not receiving any IV fluids. The patient's N-terminal proBNP is 1620. She does have some 2+ lower extremity edema. Viral screen was negative. The patient was placed on IV diuretics, and was previously on oral diuretics. A blood gas was done showing a pO2 of 66, pCO2 of 68, pH is 7.32. White count is 5.8, hemoglobin 9.9, hematocrit 33.3, platelet count was normal. D-dimer was 0.28. Sodium 142, potassium 4.2, chlorides 103, CO2 34, BUN 50, creatinine 1.77. Glucose 96. Most recent N-terminal proBNP is 1810. Chest x-ray shows cardiomegaly, with pulmonary vascular congestion and CHF. On 12/03/2024, patient is being seen for a follow-up. This is a 79-year-old female patient who is being seen in follow-up for an acute CHF exacerbation. The patient had considered elevated proBNP level at time of admission and the chest x-ray showed bilateral pleural effusion and pulmonary vessel congestion. The patient also has paroxysmal atrial fibrillation and she remains on a combination of amiodarone 100 mg p.o. daily, metoprolol 25 mg p.o. twice a day and anticoagulation with Eliquis. She continues to receive diuretics and the patient is on Lasix 40 mg IV push every 12 hours with a negative fluid balance of 1 L over the past 24 hours. Currently she is on 3 L of oxygen by nasal can nula. She is chronically debilitated with Parkinson disease and dementia and she is unable to volunteer any meaningful history at this point. Blood work from yesterday was noted. No new blood work from today. BUN was 50 with a creatinine of 1.7. Electrolytes were stable with a serum bicarb of 34. The viral 4 Plex was negative. Hemoglobin from yesterday was at 9.9. No other significant events overnight. Echocardiogram that was done on 11/30/2024 showed mildly impaired LV function with an EF of around 45 to 50%. Mild RV dilatation. Severe pulm hypertension with RVSP of 60. The patient has mild tricuspid regurgitation. On 12/04/2024, the patient is being seen for a follow-up. Patient remains extremely debilitated, does not communicate properly, weak, and she continues to have significant cognitive impairment thrive related to her underlying Parkinson's disease. Her comorbidities are multiple. She does have a component of CHF with significant pulmonary hypertension. The patient has a LV ejection fraction of 40 to 45% and she presented with decompensated CHF, bilateral pleur al effusion and pulm vessel congestion and elevated proBNP level. Since then, the patient is being diuresed and the patient is currently on Bumex 1 mg p.o. daily. Fluid balance over the past 24 hours has been -1.5 L. A follow-up chest x-ray was done today and shows persistent cardiomegaly with small lung volumes and bilateral opacities mainly in the lower lobes and the findings are still consistent with CHF. The white cell count of 8.3 with a heme of 10.2 and a platelet count of 183. Blood gas was also noted and the patient has a compensated chronic respiratory acidosis with a pH of 7.38 with a pCO2 of 63 and pO2 of 60. BUN is 43 with a creatinine of 1.6 and the patient has a serum bic arb of 35 and a sodium levels at 141. On 12/05/2024, the patient is being seen for a follow-up. Seems to be much more awake and alert compared to yesterday. Continues to receive diuretics and the patient is in negative fluid balance. The fluid balance over the past 24 hours is -1 L. The patient remains on Bumex 1 mg IV every 12 hours and she is producing adequate amount of urine output. More arousable on today's evaluation. The chest x-ray from yesterday was still showing CHF with bilateral pleural effusions. She is able to swallow. She is on Lantus insulin 36 units daily and 20 units of Lantus at nighttime. She remains on metoprolol 25 mg p.o. twice daily and Cozaar 50 mg p.o. daily. She is on Norvasc 10 mg p.o. daily. She remains on anticoagulation with Eliquis 2.5 mg p.o. twice a day. She is on Sinemet regarding her Parkinson's disease. She remains on amiodarone 100 mg p.o . daily. Blood work from today shows a white cell count of 6.7 with a hemoglobin 9.9 and platelet count of 194. BUN is 42 with a creatinine of 1.6 and the patient's creatinine is stable, and rest of the electrolytes show a serum bicarb of 39, sodium of 141. Objective - Vital Signs Vital signs: Vital Signs Temp 97.7 F 12/05/24 08:27 Pulse 79 12/05/24 11:02 Resp 18 12/05/24 11:02 BP 166/70 12/05/24 08:27 Pulse Ox 95 12/05/24 10:52 FiO2 50 12/03/24 20:25 Intake & Output 12/04/24 12/05/24 12/05/24 18:59 06:59 18:59 Intake Total 360 180 Output Total 550 800 800 Balance -190 -800 -620 Weight 52.5 kg Intake: Oral 360 180 Output: Urine 550 800 800 Other: Voiding Method Indwelling Catheter Indwelling Catheter Indwelling Catheter # Bowel Movements 0 1 - Exam No acute distress, currently on off the BiPAP and the patient is currently on 4 L of oxygen nasal cannula. Lethargic, not communicating at this point. Ge neralized body stiffness and occasional tremors. HEENT examination is grossly unremarkable. Neck supple. Full range of motion. No adenopathy thyromegaly or neck vein distention. Cardiovascular examination reveals regular rhythm rate. S1-S2 normal. No S3 or S4. No discernible murmur noted. Heart sounds are distant. Lungs reveal scattered bilateral rhonchi and crackles. Breath sounds are equal. No distinct wheezes. Abdomen soft bowel sounds are heard. No masses or tenderness. Extremities are intact. No cyanosis or clubbing. 2+ lower extremity edema is noted. Skin is without rash or lesion. Neurologic examination is brief but nonfocal. - Labs CBC & Chem 7: 12/05/24 07:34 12/05/24 07:34 Labs: Abnormal Lab Results - Last 24 Hours (Table) 12/04/24 12/04/24 12/04/24 Range/Units 11:31 13:13 16:19 RBC (3.80-5.40) m/uL Hgb (11.4-16.0) gm/dL Hct (34.0-46.0) % MCHC (31.0-37.0) g/dL ABG pCO2 63 H (35-45) mmHg ABG pO2 60 L (83-108) mmHg ABG HCO3 37 H (21-25) mmol/L ABG Total CO2 39 H (19-24) mmol/L ABG O2 Saturation 92.4 L (94-97) % Hemoglobin 9.8 L (11.4-16.0) gm/dL Carbon Dioxide (22-30) mmol/L BUN (7-17) mg/dL Creatinine (0.52-1.04) mg/dL Glucose (74-99) mg/dL POC Glucose (mg/dL) 198 H 125 H (70-110) mg/dL Calcium (8.4-10.2) mg/dL 12/04/24 12/05/24 12/05/24 Range/Units 20:08 06:04 07:34 RBC (3.80-5.40) m/uL Hgb (11.4-16.0) gm/dL Hct (34.0-46.0) % MCHC (31.0-37.0) g/dL ABG pCO2 (35-45) mmHg ABG pO2 (83-108) mmHg ABG HCO3 (21-25) mmol/L ABG Total CO2 (19-24) mmol/L ABG O2 Saturation (94-97) % Hemoglobin (11.4-16.0) gm/dL Carbon Dioxide 39 H (22-30) mmol/L BUN 42 H (7-17) mg/dL Creatinine 1.64 H (0.52-1.04) mg/dL Glucose 136 H (74-99) mg/dL POC Glucose (mg/dL) 225 H 156 H (70-110) mg/dL Calcium 8.2 L (8.4-10.2) mg/dL 12/05/24 Range/Units 07:34 RBC 3.41 L (3.80-5.40) m/uL Hgb 9.9 L (11.4-16.0) gm/dL Hct 33.3 L (34.0-46.0) % MCHC 29.7 L (31.0-37.0) g/dL ABG pCO2 (35-45) mmHg ABG pO2 (83-108) mmHg ABG HCO3 (21-25) mmol/L ABG Total CO2 (19-24) mmol/L ABG O2 Saturation (94-97) % Hemoglobin (11.4-16.0) gm/dL Carbon Dioxide (22-30) mmol/L BUN (7-17) mg/dL Creatinine (0.52-1.04) mg/dL Glucose (74-99) mg/dL POC Glucose (mg/dL) (70-110) mg/dL Calcium (8.4-10.2) mg/dL Assessment and Plan Plan: Acute hypoxemic respiratory failure, secondary to acute exacerbation of CHF. The patient is currently off BiPAP and the patient is currently on 4 L of oxygen by nasal cannula. His CHF is being optimized and the patient is currently on Lasix 40 mg IV every 12 hours. Echocardiogram was noted and it shows LV ejection fraction of 40 to 45%. She does have severe pulm hypertension. The patient is currently off the BiPAP. The blood gas is consistent with chronic hypoxic/hypercapnic respiratory failure with seems to be compensated at this point. This patient CHF. Patient has mild systolic heart failure and evidence of severe pulmonary hypertension with right with acute systolic pressure of around 60 based on an echocardiogram that was done on 11/29/2024. No significant valvular abnormalities. proBNP level at time of admission was considerably elevated at 1800 and the patient had pulm vessel congestion and bilateral pleural effusions noted on the chest x-ray. 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 Paroxysmal atrial fibrillation. Patient is currently on anticoagulation with Eliquis. The patient is also on amiodarone 100 mg p.o. daily. She is on metoprolol 25 mg p.o. twice daily. Chronic stage III kidney disease, creatinine stable Generalized weakness Frequent falls History of Parkinson's disease History of hypertension History of hyperlipidemia Diabetes mellitus, insulin-dependent Hypothyroidism History of rheumatoid arthritis History of cervical spine stenosis History of right femur fracture Obesity Hard of hearing Plan: Titrate oxygen flow to maintain saturation above 90%, currently on 4 L Keep the patient off the BiPAP Suggest continuing the diuretics. However, cardiology switch this patient to oral Bumex. Noted the chest x-ray is consistent still with CHF with cardiomegaly and bilateral pleural effusions and pulm vessel congestion. Suggest IV diuretics with close monitoring of the renal function as the patient has chronic kidney disease. Recommend 1 mg of Bumex every 12 hours. Patient has developed some metabolic alkalosis. Will give the patient a dose of Diamox 5 500 mg IV push x 2 Renal function is stable. Pneumonia is doubtful that the patient is currently covered empiric with IV Rocephin Continue metoprolol Continue amiodarone Continue anticoagulation with Eliquis Aspiration precautions One-to-one feeding Repeat chest x-ray in the morning Long-term prognosis poor based on above-mentioned comorbidities. Will continue to follow. Time with Patient: Greater than 30
[2024-12-05 16:32] LABS: Glucose,Whole Blood 250 mg/dL (70-110)
[2024-12-05 19:50] LABS: Glucose,Whole Blood 223 mg/dL (70-110)
[2024-12-06 06:07] LABS: Glucose,Whole Blood 144 mg/dL (70-110)
--- NOTE | 2024-12-06 07:07 | XR ---
EXAMINATION TYPE: XR chest 1V portable DATE OF EXAM: 12/06/2024 6:59 AM COMPARISON: 12/04/2024 CLINICAL INDICATION: Female, 79 years old with history of shortness of breath, , FINDINGS: Low lung volumes. Heart mildly enlarged. Diffuse interstitial and patchy mid and lower lung opacity p ersist with slight interval improvement. Blunted costophrenic angles suggest underlying effusions. IMPRESSION: Correlate for CHF with patchy and confluent pulmonary edema, greatest at the lower lungs, though with some improvement from prior. Suspect underlying pleural effusions as well. [facility], Workstation: [email or web address], 12/06/2024 7:04 AM
[2024-12-06 07:56] LABS: African American GFR (CKD) 29 (>60 ml/min/1.73 sqM); Anion Gap 2 mmol/L; Blood Urea Nitrogen 39 mg/dL (7-17); Calcium 8.3 mg/dL (8.4-10.2); Carbon Dioxide 39 mmol/L (22-30); Chloride 100 mmol/L (98-107); Glucose 148 mg/dL (74-99); Non-African American GFR(CKD) 25 (>60 ml/min/1.73 sqM); Potassium 4.4 mmol/L (3.5-5.1); Sodium 141 mmol/L (137-145)
[2024-12-06 08:00] LABS: Basophils % (A) 0 %; Eosinophils # (A) 0.2 k/uL (0-0.7); Eosinophils % (A) 3 %; HCT 36.8 % (34.0-46.0); HGB 10.5 gm/dL (11.4-16.0); Hypochromasia Marked; Lymphocytes # (A) 0.9 k/uL (1.0-4.8); Lymphocytes % (A) 14 %; MCH 28.7 pg (25.0-35.0); MCHC 28.4 g/dL (31.0-37.0); Macrocytosis Slight; Mean Platelet Volume 8.6; Monocytes # (A) 0.5 k/uL (0-1.0); Monocytes % (A) 8 %; Neutrophils # (A) 4.2 k/uL (1.3-7.7); Neutrophils % (A) 71 %; Platelet Count 216 k/uL (150-450); RBC 3.64 m/uL (3.80-5.40); RDW 13.7 % (11.5-15.5)
[2024-12-06 11:21] LABS: Glucose,Whole Blood 216 mg/dL (70-110)
--- NOTE | 2024-12-06 14:48 | P.PN ---
Subjective Interval History: 79-year-old female past medical history Parkinson's, CHF, atrial fibrillation on Eliquis presenting today for generalized weakness. Patient presents with her caregiver and daughter at [facility] who provided vast majority of history. Patient went for a skin biopsy last Tuesday at her [employer] office and patient's daughter states they did wait in the waiting room for an extended period of time. patient began to have increasing weakness, not wanting to go to doctors appointment, due to generalized weakness not being able to get out of bed. Patient does typically ambulate with assistance has been too weak to walk over the course of the last week. Patient's caregiver monitors her pulse ox closely and 2 days ago noted patient's pulse ox to be 82% during the day. Patient does typically wear 2 L oxygen at night but does not require oxygen during the day. No history of COPD. Patient not had any fevers, no episodes of emesis, she did have 1 soft stool earlier today but otherwise no diarrhea, black or bloody stools. Patient has chronic abdominal pain but no new pain. Patient's caregiver states patient has not had any strokelike symptoms and is at baseline with the exception of her increased weakness. Patient has not any episodes of increased work of breathing/shortness of breath. She has not inc reased bilateral lower extremity swelling. Was recently on a course of oral antibiotics for toe infection that has improved. No recent falls. Blood work completed in ED reveals a WBC of 7 1, hemoglobin of 10.4 and platelet count of 190, sodium 141, potassium 4.9, BUNs/creatinine 59/1.95 and blood glucose of 184, troponin of 0.015, BNP elevated at 1620 UA is positive for leukocyte esterase, WBCs and bacteria Chest x-ray showed small bilateral pleural effusion with pulmonary vascular congestions - EKG showed sinus mechanism with no significant ST or T wave abnormalities noted. 12/01/2024 Patient seen and evaluated in room at bedside; reports improvement in breathing; complains of back pain Vital signs are reviewed; patient is somewhat bradycardic with heart rate in 50s; blood pressure remains stable at 144/64 -Cardiology on; recommending to cut back on dose of metoprolol -Patient has been transitioned to oral Bumex at 2 mg every morning and 1 mg nightly -- Urine culture and blood cultures have been negative; patient has received 3- day of IV Rocephin; we will discontinue -Possible discharge in next 24 hours once cleared by cardiology 12/02/2024 Patient is seen and evaluated in room at bedside; discussed with nursing staff; patient went into acute respiratory distress through the night -Chest x-ray was completed which is consistent with pulmonary edema; patient has been placed on BiPAP at this point -- Patient has been evaluated by cardiology and Bumex has been discontinued; patient has been placed on IV Lasix; we will plan to monitor strict QUENTIN's, daily weights, renal function electrolytes -- Echocardiogram has been completed and reveals an EF of 45% and severe pulmonary hypertension -We will continue with current regimen; order BNP 12/03--patient was seen and examined today. Patient is afebrile, heart rate 68, respiratory rate 16, blood pressure 133/63, saturating 92% on 3 L. Patient on IV Lasix for diuresis. Cardiology and pulmonary following. On Rocephin for UTI. PT/OT consulted. 12/04--patient was seen and examined today. Limited review system due to dementia. Afebrile, heart rate 74, respiratory rate 18, blood pressure 140/63, saturating 90% on 3 L. WBCs 8.3, hemoglobin 10.2, platelet 183. BUN is 43, creatinine 1.60 downtrending. Magnesium 1.9. Will continue IV diuresis. PT/OT consulted, anticipate ECF. 12/05--patient was seen and examined today. Daughter at bedside. Daughter reported that patient's confusion is better. Patient is afebrile, heart rate 79, respiratory rate 18, blood pressure 146/73, saturating 93% on 3 L. WBC 6.7, hemoglobin 9.9, platelet 193. Sodium 141 potassium 4.2 chloride 101 CO2 39 BUN 42, creatinine 1.64stable. Discontinue Rocephin. Patient remains on IV Bumex for diuresis. Pulmonary following. 12/06--patient was seen and examined today. Patient reported that she is feeling better today. Patient is afebrile, heart rate 85, respiratory rate 18, blood pressure 142/63, saturating 95% on 2 L. WBC 6.0, hemoglobin 10.5, platelet 216. BUN 39, creatinine 1.91, uptrending from 1.64 yesterday. Remains on IV Bumex 1 mg twice daily for diuresis. Assessment and plan: Acute on chronic systolic CHF: Acute hypoxic respiratory failure: Sinus bradycardia: Severe pulmonary hypertension: Hypertension Hyperlipidemia COPD: Presented with generalized weakness During hospitalization patient's started complain of shortness of breath, required BiPAP, VBG showed pCO2 of 68. Chest x-ray showed cardiomegaly with pulmonary venous congestion and CHF. Echocardiogram showed EF 45%, severe pulmonary hypertension Pulmonary consulted--recommended to continue IV diuresis. Cardiology consulted. Monitor daily weight and I&O's, cardiac diet with fluid restriction. Continue home med: Amiodarone, amlodipine, Eliquis, statin, losartan, me toprolol. Paroxysmal A-fib: Amiodarone, metoprolol Eliquis UTI: Generalized weakness Fall precautions-PT/OT consult Rocephin for UTI--completed Diabetes mellitus: Continue Lantus, sliding scale Accu-Cheks, diabetic diet Hypothyroidism: Synthroid Parkinson's disease with extensive tremors: Dementia: Continue carbidopa, primidone History of RA Multiple comorbidities: DVT prophylaxis: Anticoagulated Disposition: PT/OT consulted, anticipate ECF. Monitor vital signs and labs Labs and medication were reviewed. Continue same treatment. Further recommendations as per clinical course of the patient PHYSICAL EXAMINATION: GENERAL: The patient is A&O x2, NAD HEENT: EOMI, Sclerae anicteric, Moist Mucous membranes Neck: Supple, Non tender, No JVD PULMONARY: Equal breath souds B/L, No wheezing, + crackles. CARDIOVASCULAR: S1, S2 present. No murmurs, rubs, or gallops. ABDOMEN: Soft, nontender, nondistended, normoactive bowel sounds. No guarding or rebound tenderness. MUSCULOSKELETAL: + edema, No cyanosis. No clubbing. Normal ROM. Intact peripheral pulses. NEUROLOGICAL: CN 2-12 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. No FND Skin: No Rash REVIEW OF SYSTEMS: Limited review system due to dementia. Dictation was produced using [employer] software. please excuse any grammatical, word or spelling errors. Objective - Vital Signs Vital signs: Vital Signs Temp 97.6 F 12/06/24 12:00 Pulse 85 12/06/24 12:00 Resp 18 12/06/24 12:00 BP 142/63 12/06/24 12:00 Pulse Ox 95 12/06/24 12:00 FiO2 50 12/05/24 15:48 Intake & Output 12/05/24 12/06/24 12/06/24 18:59 06:59 18:59 Intake Total 540 240 Output Total 800 150 750 Balance -260 -150 -510 Weight 103.5 kg Intake: Oral 540 240 Output: Urine 800 150 750 Other: Voiding Method Indwelling Catheter Indwelling Catheter Indwelling Catheter # Voids 1 # Bowel Movements 1 1 - Labs CBC & Chem 7: 12/06/24 06:33 12/06/24 06:33 Labs: Abnormal Lab Results - Last 24 Hours (Table) 12/05/24 12/05/24 12/06/24 Range/Units 16:31 19:48 06:04 RBC (3.80-5.40) m/uL Hgb (11.4-16.0) gm/dL MCV (80.0-100.0) fL MCHC (31.0-37.0) g/dL Lymphocytes # (1.0-4.8) k/uL Carbon Dioxide (22-30) mmol/L BUN (7-17) mg/dL Creatinine (0.52-1.04) mg/dL Glucose (74-99) mg/dL POC Glucose (mg/dL) 250 H 223 H 144 H (70-110) mg/dL Calcium (8.4-10.2) mg/dL 12/06/24 12/06/24 12/06/24 Range/Units 06:33 06:33 11:14 RBC 3.64 L (3.80-5.40) m/uL Hgb 10.5 L (11.4-16.0) gm/dL MCV 101.0 H (80.0-100.0) fL MCHC 28.4 L (31.0-37.0) g/dL Lymphocytes # 0.9 L (1.0-4.8) k/uL Carbon Dioxide 39 H (22-30) mmol/L BUN 39 H (7-17) mg/dL Creatinine 1.91 H (0.52-1.04) mg/dL Glucose 148 H (74-99) mg/dL POC Glucose (mg/dL) 216 H (70-110) mg/dL Calcium 8.3 L (8.4-10.2) mg/dL
[2024-12-06 16:15] LABS: Glucose,Whole Blood 221 mg/dL (70-110)
[2024-12-06 20:07] LABS: Glucose,Whole Blood 198 mg/dL (70-110)
--- NOTE | 2024-12-06 22:01 | P.PN ---
Subjective Progress Note Date: 12/06/24 79-year-old female seen in the emergency department, on November 29, 2024, at about 4:15 in the afternoon. The patient apparently has a history of Parkinson's disease, atrial fibrillation, and heart failure. The patient came in with weakness, and shortness of breath. In addition, the patient was noted to have a low saturation, of 82%, on 2 L of oxygen. She typically wears the oxygen primarily at nighttime. The patient was apparently admitted with a diagnosis of congestive heart failure, and was ready for discharge, but we were consulted, last night, late, for increasing shortness of breath. The patient is seen today in room 363. She is currently on BiPAP, with settings of 12/6, and 50%. She is not receiving any IV fluids. The patient's N-terminal proBNP is 1620. She does have some 2+ lower extremity edema. Viral screen was negative. The patient was placed on IV diuretics, and was previously on oral diuretics. A blood gas was done showing a pO2 of 66, pCO2 of 68, pH is 7.32. White count is 5.8, hemoglobin 9.9, hematocrit 33.3, platelet count was normal. D-dimer was 0.28. Sodium 142, potassium 4.2, chlorides 103, CO2 34, BUN 50, creatinine 1.77. Glucose 96. Most recent N-terminal proBNP is 1810. Chest x-ray shows cardiomegaly, with pulmonary vascular congestion and CHF. On 12/03/2024, patient is being seen for a follow-up. This is a 79-year-old female patient who is being seen in follow-up for an acute CHF exacerbation. The patient had considered elevated proBNP level at time of admission and the chest x-ray showed bilateral pleural effusion and pulmonary vessel congestion. The patient also has paroxysmal atrial fibrillation and she remains on a combination of amiodarone 100 mg p.o. daily, metoprolol 25 mg p.o. twice a day and anticoagulation with Eliquis. She continues to receive diuretics and the patient is on Lasix 40 mg IV push every 12 hours with a negative fluid balance of 1 L over the past 24 hours. Currently she is on 3 L of oxygen by nasal can nula. She is chronically debilitated with Parkinson disease and dementia and she is unable to volunteer any meaningful history at this point. Blood work from yesterday was noted. No new blood work from today. BUN was 50 with a creatinine of 1.7. Electrolytes were stable with a serum bicarb of 34. The viral 4 Plex was negative. Hemoglobin from yesterday was at 9.9. No other significant events overnight. Echocardiogram that was done on 11/30/2024 showed mildly impaired LV function with an EF of around 45 to 50%. Mild RV dilatation. Severe pulm hypertension with RVSP of 60. The patient has mild tricuspid regurgitation. On 12/04/2024, the patient is being seen for a follow-up. Patient remains extremely debilitated, does not communicate properly, weak, and she continues to have significant cognitive impairment thrive related to her underlying Parkinson's disease. Her comorbidities are multiple. She does have a component of CHF with significant pulmonary hypertension. The patient has a LV ejection fraction of 40 to 45% and she presented with decompensated CHF, bilateral pleur al effusion and pulm vessel congestion and elevated proBNP level. Since then, the patient is being diuresed and the patient is currently on Bumex 1 mg p.o. daily. Fluid balance over the past 24 hours has been -1.5 L. A follow-up chest x-ray was done today and shows persistent cardiomegaly with small lung volumes and bilateral opacities mainly in the lower lobes and the findings are still consistent with CHF. The white cell count of 8.3 with a heme of 10.2 and a platelet count of 183. Blood gas was also noted and the patient has a compensated chronic respiratory acidosis with a pH of 7.38 with a pCO2 of 63 and pO2 of 60. BUN is 43 with a creatinine of 1.6 and the patient has a serum bic arb of 35 and a sodium levels at 141. On 12/05/2024, the patient is being seen for a follow-up. Seems to be much more awake and alert compared to yesterday. Continues to receive diuretics and the patient is in negative fluid balance. The fluid balance over the past 24 hours is -1 L. The patient remains on Bumex 1 mg IV every 12 hours and she is producing adequate amount of urine output. More arousable on today's evaluation. The chest x-ray from yesterday was still showing CHF with bilateral pleural effusions. She is able to swallow. She is on Lantus insulin 36 units daily and 20 units of Lantus at nighttime. She remains on metoprolol 25 mg p.o. twice daily and Cozaar 50 mg p.o. daily. She is on Norvasc 10 mg p.o. daily. She remains on anticoagulation with Eliquis 2.5 mg p.o. twice a day. She is on Sinemet regarding her Parkinson's disease. She remains on amiodarone 100 mg p.o . daily. Blood work from today shows a white cell count of 6.7 with a hemoglobin 9.9 and platelet count of 194. BUN is 42 with a creatinine of 1.6 and the patient's creatinine is stable, and rest of the electrolytes show a serum bicarb of 39, sodium of 141. On 12/06/2024, the patient is being seen for a follow-up. The patient is neurologically unchanged. She has diminished level of consciousness, sluggish in her speech, rigid and slow motor functions and this is attributed to her history of parkinsonism. In terms of her respiratory status, the patient is currently on 2 L of oxygen by nasal cannula with a pulse ox of 95%. The patient remains quite stable. No reported aspiration. She is on a one-to-one feeding and she is able to swallow properly. She remains on Bumex 1 mg IV every 12 hours. She is producing a negative fluid balance and the patient is diuresing reasonably well at this point in time. She is also on DuoNeb nebulized treatments [id number]. Rest of the medication remain unchanged. Her baseline left ventricular ejection fraction is order of 45% and she has severe pulm hypertension and paroxysmal atrial fibrillation. Remains in normal sinus rhythm at this point. She is on Norvasc 10 mg p.o. daily for blood pressure control. She remains on metoprolol 25 mg twice daily and long-term anticoagulation with Eliquis. She is also on insulin 36 units in the morning and 20 units in the evening and sliding scale coverage. Blood sugar is under reasonable control at this point. Objective - Vital Signs Vital signs: Vital Signs Temp 97.5 F L 12/06/24 08:45 Pulse 81 12/06/24 08:45 Resp 18 12/06/24 08:45 BP 143/65 12/06/24 08:45 Pulse Ox 98 12/06/24 08:45 FiO2 50 12/05/24 15:48 Intake & Output 12/05/24 12/06/24 12/06/24 18:59 06:59 18:59 Intake Total 540 120 Output Total 800 150 600 Balance -260 -150 -480 Weight 103.5 kg Intake: Oral 540 120 Output: Urine 800 150 600 Other: Voiding Method Indwelling Catheter Indwelling Catheter # Voids 1 # Bowel Movements 1 1 - Exam No acute distress, currently on off the BiPAP and the patient is currently on 4 L of oxygen nasal cannula. Lethargic, not communicating at this point. Generalized body stiffness and occasional tremors. HEENT examination is grossly unremarkable. Neck supple. Full range of motion. No adenopathy thyromegaly or neck vein distention. Cardiovascular examination reveals regular rhythm rate. S1-S2 normal. No S3 or S4. No discernible murmur noted. Heart sounds are distant. Lungs reveal scattered bilateral rhonchi and crackles. Breath sounds are equal. No distinct wheezes. Abdomen soft bowel sounds are heard. No masses or tenderness. Extremities are intact. No cyanosis or clubbing. 2+ lower extremity edema is noted. Skin is without rash or lesion. Neurologic examination is brief but nonfocal. - Labs CBC & Chem 7: 12/06/24 06:33 12/06/24 06:33 Labs: Abnormal Lab Results - Last 24 Hours (Table) 12/05/24 12/05/24 12/05/24 Range/Units 11:24 16:31 19:48 RBC (3.80-5.40) m/uL Hgb (11.4-16.0) gm/dL MCV (80.0-100.0) fL MCHC (31.0-37.0) g/dL Lymphocytes # (1.0-4.8) k/uL Carbon Dioxide (22-30) mmol/L BUN (7-17) mg/dL Creatinine (0.52-1.04) mg/dL Glucose (74-99) mg/dL POC Glucose (mg/dL) 396 H 250 H 223 H (70-110) mg/dL Calcium (8.4-10.2) mg/dL 12/06/24 12/06/24 12/06/24 Range/Units 06:04 06:33 06:33 RBC 3.64 L (3.80-5.40) m/uL Hgb 10.5 L (11.4-16.0) gm/dL MCV 101.0 H (80.0-100.0) fL MCHC 28.4 L (31.0-37.0) g/dL Lymphocytes # 0.9 L (1.0-4.8) k/uL Carbon Dioxide 39 H (22-30) mmol/L BUN 39 H (7-17) mg/dL Creatinine 1.91 H (0.52-1.04) mg/dL Glucose 148 H (74-99) mg/dL POC Glucose (mg/dL) 144 H (70-110) mg/dL Calcium 8.3 L (8.4-10.2) mg/dL Assessment and Plan Plan: Acute hypoxemic respiratory failure, secondary to acute exacerbation of CHF. The patient is currently off BiPAP and the patient is currently on 2 L of oxygen by nasal cannula. His CHF is being optimized and the patient is currently on Lasix 40 mg IV every 12 hours. Echocardiogram was noted and it shows LV ejec tion fraction of 40 to 45%. She does have severe pulm hypertension. The patient is currently off the BiPAP. The blood gas is consistent with chronic hypoxic/hypercapnic respiratory failure with seems to be compensated at this point. This patient CHF. Patient has mild systolic heart failure and evidence of severe pulmonary hypertension with right with acute systolic pressure of around 60 based on an echocardiogram that was done on 11/29/2024. No significant valvular abnormalities. proBNP level at time of admission was considerably elevated at 1800 and the patient had pulm vessel congestion and bilateral pleural effusions noted on the chest x-ray. 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 Paroxysmal atrial fibrillation. Patient is currently on anticoagulation with Eliquis. The patient is also on amiodarone 100 mg p.o. daily. She is on metoprolol 25 mg p.o. twice daily. Chronic stage III kidney disease, creatinine stable Generalized weakness Frequent falls History of Parkinson's disease History of hypertension History of hyperlipidemia Diabetes mellitus, insulin-dependent Hypothyroidism History of rheumatoid arthritis History of cervical spine stenosis History of right femur fracture Obesity Hard of hearing Plan: Titrate oxygen flow to maintain saturation above 90%, currently on 2 L of oxygen by nasal cannula Keep the patient off the BiPAP no reported aspiration Continue diuretics with IV Bumex for another 24 hours. Renal function is being monitored the creatinine is currently up to 1.9 Pneumonia is doubtful that the patient is currently covered empiric with IV Rocephin Continue metoprolol 25 mg p.o. twice a day Continue amiodarone 100 mg p.o. daily Continue anticoagulation with Eliquis Aspiration precautions One-to-one feeding Repeat chest x-ray in the morning Long-term prognosis poor based on above-mentioned comorbidities. Will continue to follow.
[2024-12-07 05:57] LABS: Glucose,Whole Blood 131 mg/dL (70-110)
[2024-12-07 06:47] LABS: Basophils % (A) 0 %; Eosinophils # (A) 0.2 k/uL (0-0.7); Eosinophils % (A) 3 %; HCT 33.4 % (34.0-46.0); HGB 9.8 gm/dL (11.4-16.0); Hypochromasia Marked; Lymphocytes % (A) 16 %; MCH 29.4 pg (25.0-35.0); MCHC 29.4 g/dL (31.0-37.0); MCV 99.9 fL (80.0-100.0); Mean Platelet Volume 7.8; Monocytes # (A) 0.5 k/uL (0-1.0); Monocytes % (A) 8 %; Neutrophils # (A) 4.2 k/uL (1.3-7.7); Neutrophils % (A) 69 %; Platelet Count 249 k/uL (150-450); RBC 3.35 m/uL (3.80-5.40); RDW 13.5 % (11.5-15.5)
[2024-12-07 06:59] LABS: African American GFR (CKD) 30 (>60 ml/min/1.73 sqM); Anion Gap 2 mmol/L; Blood Urea Nitrogen 38 mg/dL (7-17); Calcium 8.4 mg/dL (8.4-10.2); Carbon Dioxide 40 mmol/L (22-30); Chloride 98 mmol/L (98-107); Glucose 117 mg/dL (74-99); Non-African American GFR(CKD) 26 (>60 ml/min/1.73 sqM); Potassium 4.1 mmol/L (3.5-5.1); Sodium 140 mmol/L (137-145)
--- NOTE | 2024-12-07 07:14 | XR ---
EXAMINATION TYPE: XR chest 1V DATE OF EXAM: 12/07/2024 COMPARISON: 12/06/2024 CLINICAL INDICATION: Female, 79 years old with history of CHF; TECHNIQUE: Single frontal view of the chest is obtained. FINDINGS: Heart remains mild to moderately enlarged with diffuse interstitial and patchy opacities w ith confluence of the lower lungs along with [id number] effusions. IMPRESSION: Ongoing CHF with patchy pulmonary edema and bilateral pleural effusions. [facility], Workstation: [facility], 12/07/2024 7:11 AM
[2024-12-07 08:50] VITALS: RESP 17
[2024-12-07 11:27] VITALS: BP 160/67; PULSE 75; TEMP 97.8
[2024-12-07 11:44] LABS: Glucose,Whole Blood >600 mg/dL (70-110)
[2024-12-07 11:44] LABS: Glucose,Whole Blood 254 mg/dL (70-110)
--- NOTE | 2024-12-07 13:37 | P.DS ---
Providers Date of admission: 11/29/24 20:25 Expected date of discharge: 12/07/24 Attending physician: Paul Andrews MD Consults: 12/02/24 00:00 Consult Physician Stat Consulting Provider: Tony Phillips Reason/Comments: respiratory distress, increased O2 demands Do you want consulting provider notified?: Yes Primary care physician: Alberto [facility] Hospital Course: Discharge diagnoses: Acute on chronic systolic CHF: Acute hypoxic respiratory failure: Sinus bradycardia: Severe pulmonary hypertension: Hypertension Hyperlipidemia COPD: Presented with generalized weakness During hospitalization patient's started complain of shortness of breath, required BiPAP, VBG showed pCO2 of 68. Chest x-ray showed cardiomegaly with pulmonary venous congestion and CHF. Echocardiogram showed EF 45%, severe pulmonary hypertension Pulmonary consulted Cardiology consulted. Received IV diuresis with Bumex, switched to home dose p.o. Bumex at discharge. Continue home med: Amiodarone, amlodipine, Eliquis, statin, losartan, metoprolol. Paroxysmal A-fib: Amiodarone, metoprolol Eliquis UTI: Generalized weakness Fall precautions-PT/OT consult Rocephin for UTI--completed Diabetes mellitus: Continue Lantus, sliding scale Accu-Cheks, diabetic diet Hypothyroidism: Synthroid Parkinson's disease with extensive tremors: Dementia: Continue carbidopa, primidone History of RA Multiple comorbidities: Hospital course: 79-year-old female past medical history Parkinson's, CHF, atrial fibrillation on Eliquis presenting today for generalized weakness. Patient presents with her caregiver and daughter at [facility] who provided vast majority of history. Patient went for a skin biopsy last Tuesday at her [employer] office and patient's daughter states they did wait in the waiting room for an extended period of time. patient began to have increasing weakness, not wanting to go to doctors appointment, due to generalized weakness not being able to get out of bed. Patient does typically ambulate with assistance has been too weak to walk over the course of the last week. Patient's caregiver monitors her pulse ox closely and 2 days ago noted patient's pulse ox to be 82% during the day. Patient does typically wear 2 L oxygen at night but does not require oxygen during the day. No history of COPD. Patient not had any fevers, no episodes of emesis, she did have 1 soft stool earlier today but otherwise no diarrhea, black or bloody stools. Patient has chronic abdominal pain but no new pain. Patient's caregiver states patient has not had any strokelike symptoms and is at baseline with the exception of her increased weakness. Patient has not any episodes of increased work of breathing/shortness of breath. She has not increased bilateral lower extremity swelling. Was recently on a course of oral antibiotics for toe infection that has improved. No recent falls. Blood work completed in ED reveals a WBC of 7 1, hemoglobin of 10.4 and platelet count of 190, sodium 141, potassium 4.9, BUNs/creatinine 59/1.95 and blood glucose of 184, troponin of 0.015, BNP elevated at 1620 UA is positive for leukocyte esterase, WBCs and bacteria Chest x-ray showed small bilateral pleural effusion with pulmonary vascular congestions - EKG showed sinus mechanism with no significant ST or T wave abnormalities noted. 12/01/2024 Patient seen and evaluated in room at bedside; reports improvement in breathing; complains of back pain Vital signs are reviewed; patient is somewhat bradycardic with heart rate in 50s; blood pressure remains stable at 144/64 -Cardiology on; recommending to cut back on dose of metoprolol -Patient has been transitioned to oral Bumex at 2 mg every morning and 1 mg nightly -- Urine culture and blood cultures have been negative; patient has received 3- day of IV Rocephin; we will discontinue -Possible discharge in next 24 hours once cleared by cardiology 12/02/2024 Patient is seen and evaluated in room at bedside; discussed with nursing staff; patient went into acute respiratory distress through the night -Chest x-ray was completed which is consistent with pulmonary edema; patient has been placed on BiPAP at this point -- Patient has been evaluated by cardiology and Bumex has been discontinued; patient has been placed on IV Lasix; we will plan to monitor strict QUENTIN's, daily weights, renal function electrolytes -- Echocardiogram has been completed and reveals an EF of 45% and severe pulmonary hypertension -We will continue with current regimen; order BNP 12/03--patient was seen and examined today. Patient is afebrile, heart rate 68, respiratory rate 16, blood pressure 133/63, saturating 92% on 3 L. Patient on IV Lasix for diuresis. Cardiology and pulmonary following. On Rocephin for UTI . PT/OT consulted. 12/04--patient was seen and examined today. Limited review system due to dementia. Afebrile, heart rate 74, respiratory rate 18, blood pressure 140/63, saturating 90% on 3 L. WBCs 8.3, hemoglobin 10.2, platelet 183. BUN is 43, creatinine 1.60 downtrending. Magnesium 1.9. Will continue IV diuresis. PT/OT consulted, anticipate ECF. 12/05--patient was seen and examined today. Daughter at bedside. Daughter reported that patient's confusion is better. Patient is afebrile, heart rate 79, respiratory rate 18, blood pressure 146/73, saturating 93% on 3 L. WBC 6.7, hemoglobin 9.9, platelet 193. Sodium 141 potassium 4.2 chloride 101 CO2 39 BUN 42, creatinine 1.64stable. Discontinue Rocephin. Patient remains on IV Bumex for diuresis. Pulmonary following. 12/06--patient was seen and examined today. Patient reported that she is feeling better today. Patient is afebrile, heart rate 85, respiratory rate 18, blood pressure 142/63, saturating 95% on 2 L. WBC 6.0, hemoglobin 10.5, platelet 216. BUN 39, creatinine 1.91, uptrending from 1.64 yesterday. Remains on IV Bumex 1 mg twice daily for diuresis. PT/OT recommended subacute rehab 12/07--patient was seen and examined today. Sewer Repairer at bedside. No issues overnight. Patient is afebrile, heart rate 75, respiratory rate 17, blood pressure 160/67, saturating 98% on room air. WBC 6.0, hemoglobin 9.8, platelet 249. BUN 38, creatinine 1.8, downtrending. Patient discharged subacute rehab. Patient home medication resumed at discharge. Patient continued on Bumex 2 mg in the morning, 1 mg evening home dose. Please refer to med rec and assessment plan for further details. Follow-up with PCP in 1 week Follow-up with cardiology as outpatient. PHYSICAL EXAMINATION: GENERAL: NAD HEENT: EOMI, Sclerae anicteric, Moist Mucous membranes Neck: Supple, Non tender, No JVD PULMONARY: Equal breath souds B/L, No wheezing, No crackles. CARDIOVASCULAR: S1, S2 present. No murmurs, rubs, or gallops. ABDOMEN: Soft, nontender, nondistended, normoactive bowel sounds. No guarding or rebound tenderness. MUSCULOSKELETAL: + edema, No cyanosis. No clubbing. Normal ROM. Intact peripheral pulses. NEUROLOGICAL: CN 2-12 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. No FND SKIN: No rashes. Dictation was produced using [employer] dictation software. please excuse any grammatical, word or spelling errors. Patient Condition at Discharge: Stable Plan - Discharge Summary Discharge Rx Participant: No New Discharge Prescriptions: New Apixaban [Eliquis] 2.5 mg PO BID tab Metoprolol Succinate (ER) [Toprol XL] 25 mg PO BID tab Continue Primidone 75 mg PO BID Escitalopram Oxalate [Lexapro] 10 mg PO DAILY Levothyroxine Sodium [Synthroid] 75 mcg PO AC-BRKFST Nitroglycerin Sl Tabs [Nitrostat] 0.4 mg SUBLINGUAL Q5M PRN PRN Reason: Chest Pain Docusate [Colace] 100 mg PO DAILY PRN PRN Reason: Constipation Cyanocobalamin (Vitamin B-12) [Vitamin B-12] 1,000 mcg PO DAILY Simethicone 180 mg PO ACHS PRN PRN Reason: gas/bloating Simvastatin [Zocor] 10 mg PO HS Losartan [Cozaar] 50 mg PO DAILY Insulin Glargine,Hum.rec.anlog [Lantus Solostar Pen] 36 units SQ DAILY Bumetanide [BUMEX] 1 mg PO HS Bumetanide [BUMEX] 2 mg PO DAILY amLODIPine [Norvasc] 10 mg PO DAILY busPIRone HCl [Buspar] 5 mg PO BID Carbidopa-Levodopa 25-100 mg [Sinemet 25-100 mg] 1 tab PO TID-W/MEALS polyethylene glycoL 3350 [Miralax] 17 gm PO DAILY PRN PRN Reason: Constipation Acetaminophen Tab [Tylenol] 500 mg PO Q6H PRN PRN Reason: Pain Or Fever > 100.5 Amiodarone [Cordarone] 100 mg PO DAILY Potassium Chloride ER [K-Dur 20] 20 meq PO DAILY Famotidine [Pepcid] 20 mg PO DAILY Insulin Lispro [humaLOG Kwikpen] See Protocol SQ TID-W/MEALS Insulin Glargine,Hum.rec.anlog [Lantus Solostar Pen] 20 units SQ HS PRN PRN Reason: BLOOD SUGAR >300 Discontinued Metoprolol Succinate (ER) [Toprol XL] 50 mg PO BID tab Apixaban [Eliquis] 5 mg PO BID tab Discharge Medication List Primidone 75 mg PO BID 07/23/22 [History] busPIRone HCl [Buspar] 5 mg PO BID 07/23/22 [History] Carbidopa-Levodopa 25-100 mg [Sinemet 25-100 mg] 1 tab PO TID-W/MEALS 09/14/23 [History] Escitalopram Oxalate [Lexapro] 10 mg PO DAILY 09/14/23 [History] Cyanocobalamin (Vitamin B-12) [Vitamin B-12] 1,000 mcg PO DAILY 02/27/24 [History] Docusate [Colace] 100 mg PO DAILY PRN 02/27/24 [History] Levothyroxine Sodium [Synthroid] 75 mcg PO AC-BRKFST 02/27/24 [History] Nitroglycerin Sl Tabs [Nitrostat] 0.4 mg SUBLINGUAL Q5M PRN 02/27/24 [History] Simethicone 180 mg PO ACHS PRN 02/27/24 [History] polyethylene glycoL 3350 [Miralax] 17 gm PO DAILY PRN 02/27/24 [History] Acetaminophen Tab [Tylenol] 500 mg PO Q6H PRN 06/03/24 [History] Amiodarone [Cordarone] 100 mg PO DAILY 06/03/24 [History] Potassium Chloride ER [K-Dur 20] 20 meq PO DAILY 06/03/24 [History] Bumetanide [BUMEX] 1 mg PO HS 11/29/24 [History] Bumetanide [BUMEX] 2 mg PO DAILY 11/29/24 [History] Famotidine [Pepcid] 20 mg PO DAILY 11/29/24 [History] Insulin Glargine,Hum.rec.anlog [Lantus Solostar Pen] 20 units SQ HS PRN 11/29/24 [History] Insulin Glargine,Hum.rec.anlog [Lantus Solostar Pen] 36 units SQ DAILY 11/29/24 [History] Insulin Lispro [humaLOG Kwikpen] See Protocol SQ TID-W/MEALS 11/29/24 [History] Losartan [Cozaar] 50 mg PO DAILY 11/29/24 [History] Simvastatin [Zocor] 10 mg PO HS 11/29/24 [History] amLODIPine [Norvasc] 10 mg PO DAILY 11/29/24 [History] Apixaban [Eliquis] 2.5 mg PO BID tab 12/07/24 [Rx] Metoprolol Succinate (ER) [Toprol XL] 25 mg PO BID tab 12/07/24 [Rx] Follow up Appointment(s)/Referral(s): Yusef Chaudhari MD [STAFF PHYSICIAN] - 1 Week [facility], [NON-STAFF] - 1 Week Alberto Lehman DO [Primary Care Provider] - 1-2 days Discharge Disposition: TRANSFER TO SNF/ECF
--- NOTE | 2024-12-07 16:03 | P.PN ---
Subjective Progress Note Date: 12/07/24 79-year-old female seen in the emergency department, on November 29, 2024, at about 4:15 in the afternoon. The patient apparently has a history of Parkinson's disease, atrial fibrillation, and heart failure. The patient came in with weakness, and shortness of breath. In addition, the patient was noted to have a low saturation, of 82%, on 2 L of oxygen. She typically wears the oxygen primarily at nighttime. The patient was apparently admitted with a diagnosis of congestive heart failure, and was ready for discharge, but we were consulted, last night, late, for increasing shortness of breath. The patient is seen today in room 363. She is currently on BiPAP, with settings of 12/6, and 50%. She is not receiving any IV fluids. The patient's N-terminal proBNP is 1620. She does have some 2+ lower extremity edema. Viral screen was negative. The patient was placed on IV diuretics, and was previously on oral diuretics. A blood gas was done showing a pO2 of 66, pCO2 of 68, pH is 7.32. White count is 5.8, hemoglobin 9.9, hematocrit 33.3, platelet count was normal. D-dimer was 0.28. Sodium 142, potassium 4.2, chlorides 103, CO2 34, BUN 50, creatinine 1.77. Glucose 96. Most recent N-terminal proBNP is 1810. Chest x-ray shows cardiomegaly, with pulmonary vascular congestion and CHF. On 12/03/2024, patient is being seen for a follow-up. This is a 79-year-old female patient who is being seen in follow-up for an acute CHF exacerbation. The patient had considered elevated proBNP level at time of admission and the chest x-ray showed bilateral pleural effusion and pulmonary vessel congestion. The patient also has paroxysmal atrial fibrillation and she remains on a combination of amiodarone 100 mg p.o. daily, metoprolol 25 mg p.o. twice a day and anticoagulation with Eliquis. She continues to receive diuretics and the patient is on Lasix 40 mg IV push every 12 hours with a negative fluid balance of 1 L over the past 24 hours. Currently she is on 3 L of oxygen by nasal can nula. She is chronically debilitated with Parkinson disease and dementia and she is unable to volunteer any meaningful history at this point. Blood work from yesterday was noted. No new blood work from today. BUN was 50 with a creatinine of 1.7. Electrolytes were stable with a serum bicarb of 34. The viral 4 Plex was negative. Hemoglobin from yesterday was at 9.9. No other significant events overnight. Echocardiogram that was done on 11/30/2024 showed mildly impaired LV function with an EF of around 45 to 50%. Mild RV dilatation. Severe pulm hypertension with RVSP of 60. The patient has mild tricuspid regurgitation. On 12/04/2024, the patient is being seen for a follow-up. Patient remains extremely debilitated, does not communicate properly, weak, and she continues to have significant cognitive impairment thrive related to her underlying Parkinson's disease. Her comorbidities are multiple. She does have a component of CHF with significant pulmonary hypertension. The patient has a LV ejection fraction of 40 to 45% and she presented with decompensated CHF, bilateral pleur al effusion and pulm vessel congestion and elevated proBNP level. Since then, the patient is being diuresed and the patient is currently on Bumex 1 mg p.o. daily. Fluid balance over the past 24 hours has been -1.5 L. A follow-up chest x-ray was done today and shows persistent cardiomegaly with small lung volumes and bilateral opacities mainly in the lower lobes and the findings are still consistent with CHF. The white cell count of 8.3 with a heme of 10.2 and a platelet count of 183. Blood gas was also noted and the patient has a compensated chronic respiratory acidosis with a pH of 7.38 with a pCO2 of 63 and pO2 of 60. BUN is 43 with a creatinine of 1.6 and the patient has a serum bic arb of 35 and a sodium levels at 141. On 12/05/2024, the patient is being seen for a follow-up. Seems to be much more awake and alert compared to yesterday. Continues to receive diuretics and the patient is in negative fluid balance. The fluid balance over the past 24 hours is -1 L. The patient remains on Bumex 1 mg IV every 12 hours and she is producing adequate amount of urine output. More arousable on today's evaluation. The chest x-ray from yesterday was still showing CHF with bilateral pleural effusions. She is able to swallow. She is on Lantus insulin 36 units daily and 20 units of Lantus at nighttime. She remains on metoprolol 25 mg p.o. twice daily and Cozaar 50 mg p.o. daily. She is on Norvasc 10 mg p.o. daily. She remains on anticoagulation with Eliquis 2.5 mg p.o. twice a day. She is on Sinemet regarding her Parkinson's disease. She remains on amiodarone 100 mg p.o . daily. Blood work from today shows a white cell count of 6.7 with a hemoglobin 9.9 and platelet count of 194. BUN is 42 with a creatinine of 1.6 and the patient's creatinine is stable, and rest of the electrolytes show a serum bicarb of 39, sodium of 141. On 12/06/2024, the patient is being seen for a follow-up. The patient is neurologically unchanged. She has diminished level of consciousness, sluggish in her speech, rigid and slow motor functions and this is attributed to her history of parkinsonism. In terms of her respiratory status, the patient is currently on 2 L of oxygen by nasal cannula with a pulse ox of 95%. The patient remains quite stable. No reported aspiration. She is on a one-to-one feeding and she is able to swallow properly. She remains on Bumex 1 mg IV every 12 hours. She is producing a negative fluid balance and the patient is diuresing reasonably well at this point in time. She is also on DuoNeb nebulized treatments [id number]. Rest of the medication remain unchanged. Her baseline left ventricular ejection fraction is order of 45% and she has severe pulm hypertension and paroxysmal atrial fibrillation. Remains in normal sinus rhythm at this point. She is on Norvasc 10 mg p.o. daily for blood pressure control. She remains on metoprolol 25 mg twice daily and long-term anticoagulation with Eliquis. She is also on insulin 36 units in the morning and 20 units in the evening and sliding scale coverage. Blood sugar is under reasonable control at this point. On 12/07/2024, the patient is being seen for a follow-up. This morning, the pat ient is stable on 2 L of oxygen by nasal cannula with a pulse ox 98%. A follow- up chest x-ray was done and the patient was found to have smaller lung volumes and ongoing CHF with small bilateral pleural effusions. Despite this finding, the patient denies having any major respiratory distress at rest. No reported aspiration. No fever or chills. No hemoptysis. No pleurisy. Lower extremity edema is present although it is improving. Fluid balance is negative as the patient was being diuresed with IV Bumex. The Bumex was switched to 2 mg p.o. in the morning and 1 mg in the evening on a daily basis. Rest of the medications remain unchanged. Patient is also on Lantus insulin 36 units daily and NovoLog sliding scale coverage. Remains on metoprolol 25 mg p.o. twice daily, amiodarone 100 g p.o. daily and she is also on anticoagulation with Eliquis. White cell count is 6, hemoglobin 9.8, sodium is at 140, BUN 38 with a creatinine of 1.82 and renal function remains essentially stable. Potassium is at 4.1 and serum bicarb is at 40. Calcium level is at 8.4. Objective - Vital Signs Vital signs: Vital Signs Temp 98.2 F 12/07/24 08:30 Pulse 68 12/07/24 08:35 Resp 17 12/07/24 08:30 BP 160/86 12/07/24 08:30 Pulse Ox 99 12/07/24 08:30 FiO2 50 12/05/24 15:48 Intake & Output 12/06/24 12/07/24 12/07/24 18:59 06:59 18:59 Intake Total 480 118 Output Total 750 Balance -270 118 Weight 104 kg Intake: Oral 480 118 Output: Urine 750 Other: Voiding Method Indwelling Catheter Bedpan # Voids 1 # Bowel Movements 1 1 - Exam No acute distress, currently on off the BiPAP and the patient is currently on 2 L of oxygen nasal cannula. Lethargic, not communicating at this point. Generalized body stiffness and occasional tremors. HEENT examination is grossly unremarkable. Neck supple. Full range of motion. No adenopathy thyromegaly or neck vein distention. Cardiovascular examination reveals regular rhythm rate. S1-S2 normal. No S3 or S4. No discernible murmur noted. Heart sounds are distant. Lungs reveal scattered bilateral rhonchi and crackles. Breath sounds are equal. No distinct wheezes. Abdomen soft bowel sounds are heard. No masses or tenderness. Extremities are intact. No cyanosis or clubbing. 2+ lower extremity edema is noted. Skin is without rash or lesion. Neurologic examination is brief but nonfocal. - Labs CBC & Chem 7: 12/07/24 06:24 12/07/24 06:24 Labs: Abnormal Lab Results - Last 24 Hours (Table) 12/06/24 12/06/24 12/06/24 Range/Units 11:14 16:13 19:49 RBC (3.80-5.40) m/uL Hgb (11.4-16.0) gm/dL Hct (34.0-46.0) % MCHC (31.0-37.0) g/dL Carbon Dioxide (22-30) mmol/L BUN (7-17) mg/dL Creatinine (0.52-1.04) mg/dL Glucose (74-99) mg/dL POC Glucose (mg/dL) 216 H 221 H 198 H (70-110) mg/dL 12/07/24 12/07/24 12/07/24 Range/Units 05:55 06:24 06:24 RBC 3.35 L (3.80-5.40) m/uL Hgb 9.8 L (11.4-16.0) gm/dL Hct 33.4 L (34.0-46.0) % MCHC 29.4 L (31.0-37.0) g/dL Carbon Dioxide 40 H (22-30) mmol/L BUN 38 H (7-17) mg/dL Creatinine 1.82 H (0.52-1.04) mg/dL Glucose 117 H (74-99) mg/dL POC Glucose (mg/dL) 131 H (70-110) mg/dL Assessment and Plan Plan: Acute hypoxemic respiratory failure, secondary to acute exacerbation of CHF. The patient is currently off BiPAP and the patient is currently on 2 L of oxygen by nasal cannula. Echocardiogram was noted and it shows LV ejection fraction of 40 to 45%. She does have severe pulm hypertension. The blood gas is consistent with chronic hypoxic/hypercapnic respiratory failure with seems to be compensated at this point. She has smaller lung volumes with bilateral pleural effusion consistent with CHF and currently she is on 2 L of oxygen by nasal cannula. Volume status has been optimized with diuresis. This patient CHF. Patient has mild systolic heart failure and evidence of severe pulmonary hypertension with right with acute systolic pressure of around 60 based on an echocardiogram that was done on 11/29/2024. No significant valvular abnormalities. proBNP level at time of admission was considerably elevated at 1800 and the patient had pulm vessel congestion and bilateral pleural effusions noted on the chest x-ray. 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 Paroxysmal atrial fibrillation. Patient is currently on anticoagulation with Eliquis. The patient is also on amiodarone 100 mg p.o. daily. She is on metoprolol 25 mg p.o. twice daily. Chronic stage III kidney disease, creatinine stable Generalized weakness Frequent falls History of Parkinson's disease History of hypertension History of hyperlipidemia Diabetes mellitus, insulin-dependent Hypothyroidism History of rheumatoid arthritis History of cervical spine stenosis History of right femur fracture Obesity Hard of hearing Plan: Titrate oxygen flow to maintain saturation above 90%, currently on 2 L of oxygen by nasal cannula Continue diuretics, currently on oral Bumex 2 mg in the morning and 1 mg in the evening Renal function is being monitored the creatinine is currently stable at 1.8 Pneumonia is doubtful that the patient is currently covered empiric with IV Rocephin Continue metoprolol 25 mg p.o. twice a day Continue amiodarone 100 mg p.o. daily Continue anticoagulation with Eliquis Aspiration precautions One-to-one feeding Repeat chest x-ray in the morning shows stable findings Long-term prognosis poor based on above-mentioned comorbidities. Will continue to follow. Possible discharge to ECF today.
== END 2024-12-07 15:47 | DRG 291 ==
LOC: EC 16:18 → 3SCARD 20:25
PROVIDERS: ADMIT Internal Medicine; ATTEND Internal Medicine
PROC: 5A09357 Assistance with Respiratory Ventilation, Less than 24 Consecutive Hours, Continuous Positive Airway Pressure (ICD-10-PCS; principal; 2024-12-03)
DX: I13.0 Hypertensive heart and chronic kidney disease with heart failure and stage 1 through stage 4 chronic kidney disease, or unspecified chronic kidney disease (principal); I50.23 Acute on chronic systolic (congestive) heart failure; J96.22 Acute and chronic respiratory failure with hypercapnia; J96.21 Acute and chronic respiratory failure with hypoxia; N17.9 Acute kidney failure, unspecified; N18.4 Chronic kidney disease, stage 4 (severe); F02.80 Dementia in other diseases classified elsewhere, unspecified severity, without behavioral disturbance, psychotic disturbance, mood disturbance, and anxiety; J44.9 Chronic obstructive pulmonary disease, unspecified; G20.A1 Parkinson's disease without dyskinesia, without mention of fluctuations; M06.9 Rheumatoid arthritis, unspecified; E11.22 Type 2 diabetes mellitus with diabetic chronic kidney disease; I27.20 Pulmonary hypertension, unspecified; E03.9 Hypothyroidism, unspecified; N39.0 Urinary tract infection, site not specified; I48.0 Paroxysmal atrial fibrillation; I42.9 Cardiomyopathy, unspecified; Z79.4 Long term (current) use of insulin; R53.81 Other malaise; R00.1 Bradycardia, unspecified; G89.29 Other chronic pain; E78.5 Hyperlipidemia, unspecified; Z79.890 Hormone replacement therapy; Z79.899 Other long term (current) drug therapy; Z79.01 Long term (current) use of anticoagulants
CPT/HCPCS: 36415; 36600; 71045; 71046; 80048; 80053; 81001; 82330; 82805; 83605; 83735; 83880; 84100; 84439; 84443; 84484; 85025; 85027; 85379; 85610; 85730; 87086; 87636; 93005; 93306; 94640; 94660; 94760; 96374; 99291

== ENCOUNTER 2025-02-14 05:07 | Inpatient (IN) | payer MEDICARE ==
[2025-02-14 06:16] LABS: Basophils # (A) 0.01 10*3/uL (0.00-0.10); Basophils % (A) 0.1 %; Eosinophils # (A) 0.07 10*3/uL (0.04-0.35); Eosinophils % (A) 0.6 %; HCT 32.2 % (37.2-46.3); HGB 9.8 g/dL (12.0-15.0); Lymphocytes # (A) 0.56 10*3/uL (0.90-5.00); MCH 29.2 pg (27.0-32.0); MCHC 30.4 g/dL (32.0-37.0); MCV 95.8 fL (80.0-97.0); Monocytes # (A) 0.56 10*3/uL (0.20-1.00); Neutrophils % (A) 88.8 %; Platelet Count 209 10*3/uL (140-440); RBC 3.36 10*6/uL (4.10-5.20); RDW 15.5 % (11.5-14.5); WBC 11.26 10*3/uL (4.50-10.00)
--- NOTE | 2025-02-14 06:18 | ED ---
General Adult HPI - General Chief complaint: Shortness of Breath Stated complaint: SOB Time Seen by Provider: 02/14/25 05:15 Source: patient, EMS, RN notes reviewed, old records reviewed Mode of arrival: EMS Limitations: no limitations - History of Present Illness Initial comments: 79-year-old female presents for evaluation of dyspnea and hypoxia. Patient transported from residential where she was found to be hypoxic, reported in the 30s. She was placed on a nonrebreather given albuterol and Atrovent and had improvement in oxygenation. Patient is edematous in both the upper and lower extremities. She denies chest pain. Denies fever. - Related Data Home Medications Medication Instructions Recorded Confirmed Primidone 50 mg PO TID-W/MEALS 07/23/22 01/23/25 busPIRone HCl [Buspar] 5 mg PO BID 07/23/22 01/23/25 Carbidopa-Levodopa 25-100 mg 1 tab PO TID-W/MEALS 09/14/23 01/23/25 [Sinemet 25-100 mg] Escitalopram Oxalate [Lexapro] 10 mg PO DAILY 09/14/23 01/23/25 Levothyroxine Sodium [Synthroid] 75 mcg PO DAILY 02/27/24 01/23/25 Nitroglycerin Sl Tabs [Nitrostat] 0.4 mg SUBLINGUAL Q5M PRN 02/27/24 01/23/25 Simethicone 180 mg PO ACHS PRN 02/27/24 01/23/25 polyethylene glycoL 3350 [Miralax] 17 gm PO DAILY PRN 02/27/24 01/23/25 Acetaminophen Tab [Tylenol] 500 mg PO Q6H PRN 06/03/24 01/23/25 Amiodarone [Cordarone] 100 mg PO DAILY 06/03/24 01/23/25 Famotidine [Pepcid] 20 mg PO BID 11/29/24 01/23/25 Insulin Glargine,Hum.rec.anlog 36 units SQ DAILY 11/29/24 01/23/25 [Lantus Solostar Pen] Insulin Lispro [humaLOG Kwikpen] See Protocol SQ TID-W/MEALS 11/29/24 01/23/25 Simvastatin [Zocor] 10 mg PO HS 11/29/24 01/23/25 amLODIPine [Norvasc] 10 mg PO DAILY 11/29/24 01/23/25 Bethanechol [Urecholine] 50 mg PO TID 01/23/25 01/23/25 Cyanocobalamin [Vitamin B-12] 500 mcg PO DAILY 01/23/25 01/23/25 Ferrous Sulfate [Iron (65 MG 325 mg PO DAILY 01/23/25 01/23/25 Elemental)] Ipratropium-Albuterol Nebulize 3 ml INHALATION RT-QID 01/23/25 01/23/25 [Duoneb 0.5 mg-3 mg/3 ml Soln] Mupirocin 2% Oint [Bactroban 2% 1 applic TOPICAL Q6H 01/23/25 01/23/25 Oint] Sennosides/Docusate Sodium 1 tab PO DAILY 01/23/25 01/23/25 [Senna-S 8.6-50 mg Tablet] Previous Rx's Medication Instructions Recorded Metoprolol Succinate (ER) [Toprol 25 mg PO BID tab 12/07/24 XL] Apixaban [Eliquis] 5 mg PO BID tab 01/31/25 Bumetanide [BUMEX] 1 mg PO BID tab 01/31/25 Cefuroxime [Ceftin] 500 mg PO BID 7 Days #28 tab 01/31/25 Dapagliflozin Propanediol [Farxiga] 5 mg PO DAILY tab 01/31/25 Fluconazole [Diflucan] 150 mg PO DAILY 2 Days tab 01/31/25 predniSONE 0 mg PO DIRECTED #21 tab 01/31/25 Allergies Allergy/AdvReac Type Severity Reaction Status Date / Time gabapentin AdvReac Hallucinati Verified 02/14/25 05:14 ons Review of Systems ROS Statement: Those systems with pertinent positive or pertinent negative responses have been documented in the HPI. ROS Other: All systems not noted in ROS Statement are negative. Past Medical History Past Medical History: Heart Failure, Diabetes Mellitus, Hyperlipidemia, Hypertension, Pneumonia, Rheumatoid Arthritis (RA) Additional Past Medical History / Comment(s): tremors, renal lithiasis, hemo rrhoids(sx done), "has had problems w/low magnesium.anemia. per spouse pt had past cancer "uterine or cervical-had hysterectomy". it was previously charted that pt had hx of ra and cfh spouse not able to verify this, Parkinsons History of Any Multi-Drug Resistant Organisms: ESBL, MRSA Date of last positivie culture/infection: 01/13/25-MRSA; 09/15/23-ESBL MDRO Source:: MRSA-rt hip; ESBL-URINE Past Surgical History: Appendectomy, Hysterectomy, Orthopedic Surgery, Tonsillectomy Additional Past Surgical History / Comment(s): rt total knee repalcement, cataracts, hemmorroidectomy, colonoscopy Past Anesthesia/Blood Transfusion Reactions: No Reported Reaction Additional Past Anesthesia/Blood Transfusion Reaction / Comment(s): per psouse- pt never receieved any blood Past Psychological History: No Psychological Hx Reported Smoking Status: Never smoker Past Alcohol Use History: None Reported Past Drug Use History: None Reported - Past Family History Mother Family Medical History: Diabetes Mellitus Father Additional Family Medical History / Comment(s): brain anuerysm General Exam Limitations: no limitations General appearance: alert, in no apparent distress Head exam: Present: atraumatic, normocephalic Eye exam: Present: normal appearance, PERRL Respiratory exam: Present: respiratory distress, rales, decreased breath sounds Cardiovascular Exam: Present: regular rate, normal rhythm GI/Abdominal exam: Present: soft. Absent: distended, tenderness, guarding Extremities exam: Present: pedal edema Neurological exam: Present: alert, oriented X3 Psychiatric exam: Present: normal affect, normal mood Skin exam: Present: warm, dry, intact, pallor Course Vital Signs 02/14/25 05:09 Temperature 97.3 F L Pulse Rate 67 Respiratory 28 H Rate Blood Pressure 142/80 O2 Sat by Pulse 97 Oximetry Medical Decision Making - Medical Decision Making Was pt. sent in by a medical professional or institution (, PA, CENTRIFUGE SEPARATOR TENDER, urgent care, hospital, or residential...) When possible be specific @ -No Did you speak to anyone other than the patient for history (EMS, parent, family, police, friend...)? What history was obtained from this source @ -No Did you review nursing and triage notes (agree or disagree)? Why? @ -I reviewed and agree with nursing and triage notes Were old charts reviewed (outside hosp., previous admission, EMS record, old EKG, old radiological studies, urgent care reports/EKG's, residential records)? Report findings @ -No old charts were reviewed Differential Dyspnea: Coronary syndrome, arrhythmia, tamponade, asthma, COPD, pulmonary embolism, pneumonia, pneumothorax, pulmonary effusion, anaphylaxis, diabetic ketoacidosis, flailed chest, pulmonary contusion, diaphragmatic rupture, anemia, neuromus cular, this is not meant to be an all-inclusive list. EKG interpreted by me (3pts min.). @ -Sinus rhythm rate of 71, NC interval 171, QRS duration 113, QTc [address] segment elevation minor intraventricular conduction delay. X-rays interpreted by me (1pt min.). @Chest x-ray showing increased pulmonary vascular congestion consistent with CHF CT interpreted by me (1pt min.). @ -None done U/S interpreted by me (1pt. min.). @ -None done What testing was considered but not performed or refused? (CT, X-rays, U/S, labs)? Why? @ -None What meds were considered but not given or refused? Why? @ -None Did you discuss the management of the patient with other professionals (professionals i.e. , PA, CENTRIFUGE SEPARATOR TENDER, lab, RT, psych nurse, social contact worker, package wrapper, teacher, community liaison officer, case liner)? Give summary @Maeve covering for EM. Was smoking cessation discussed for >3mins.? @ -No Was critical care preformed (if so, how long)? @ -No Were there social determinants of health that impacted care today? How? (Homelessness, low income, unemployed, alcoholism, drug addiction, transportation, low edu. Level, literacy, decrease access to med. care, intermediate, rehab)? @ -No Was there de-escalation of care discussed even if they declined (Discuss DNR or withdrawal of care, Hospice)? DNR status @ -No What co-morbidities impacted this encounter? (DM, HTN, Smoking, COPD, CAD, Cancer, CVA, ARF, Chemo, Hep., AIDS, mental health diagnosis, sleep apnea, morbid obesity)? @CKD, CHF Was patient admitted / discharged? Hospital course, mention meds given and route, prescriptions, significant lab abnormalities, going to OR and other pertinent info. @79-year-old female with hypoxia, dyspnea. Patient is tachypneic with rales bilaterally. She is edematous with pitting edema in the upper and lower extremi ties. She has a mild leukocytosis, stable anemia she has chronic kidney disease which is at baseline. BNP is elevated. Patient given IV diuresis in the emergency department admitted for monitoring and further diuresis. Undiagnosed new problem with uncertain prognosis? @ -No Drug Therapy requiring intensive monitoring for toxicity (Heparin, Nitro, Insulin, Cardizem)? @ -No Were any procedures done? @ -No Diagnosis/symptom? @ -CHF Acute, or Chronic, or Acute on Chronic? @ -Acute on chronic Uncomplicated (without systemic symptoms) or Complicated (systemic symptoms)? @Complicated Side effects of treatment? @ -No Exacerbation, Progression, or Severe Exacerbation? @ -No Poses a threat to life or bodily function? How? (Chest pain, [place], CO, pneumonia, PE, COPD, DKA, ARF, appy, cholecystitis, CVA, Diverticulitis, Homicidal, Suicidal, threat to staff... and all critical care pts) @Yes, hypoxic respiratory failure - Lab Data Result diagrams: 02/14/25 05:13 02/14/25 05:13 Lab Results 02/14/25 02/14/25 02/14/25 Range/Units 05:13 05:13 05:13 WBC 11.26 H (4.50-10.00) 10*3/uL RBC 3.36 L (4.10-5.20) 10*6/uL Hgb 9.8 L (12.0-15.0) g/dL Hct 32.2 L (37.2-46.3) % MCV 95.8 (80.0-97.0) fL MCH 29.2 (27.0-32.0) pg MCHC 30.4 L (32.0-37.0) g/dL Plt Count 209 (140-440) 10*3/uL MPV 9.0 L (9.5-12.2) fL Immature Gran % (Auto) 0.5 % Neutrophils % 88.8 % Lymphocytes % 5.0 % Monocytes % 5.0 % Eosinophils % 0.6 % Basophils % 0.1 % Immature Gran # 0.06 H (0.00-0.04) 10*3/uL Neutrophils # 10.00 H (1.80-7.70) 10*3/uL Lymphocytes # 0.56 L (0.90-5.00) 10*3/uL Monocytes # 0.56 (0.20-1.00) 10*3/uL Eosinophils # 0.07 (0.04-0.35) 10*3/uL Basophils # 0.01 (0.00-0.10) 10*3/uL PT 10.2 (10.0-12.5) sec INR 0.9 (<1.2) APTT 24.3 (22.0-30.0) sec Sodium 143 (137-145) mmol/L Potassium 3.7 (3.5-5.1) mmol/L Chloride 107 (98-107) mmol/L Carbon Dioxide 30 (22-30) mmol/L Anion Gap 6 mmol/L BUN 37 H (7-17) mg/dL Creatinine 1.52 H (0.52-1.04) mg/dL Est GFR (CKD-EPI)AfAm 38 (>60 ml/min/1.73 sqM) Est GFR (CKD-EPI)NonAf 33 (>60 ml/min/1.73 sqM) Glucose 102 H (74-99) mg/dL Calcium 8.7 (8.4-10.2) mg/dL Magnesium 1.9 (1.6-2.3) mg/dL Total Bilirubin 0.3 (0.2-1.3) mg/dL AST 19 (14-36) U/L ALT <6 (4-34) U/L Alkaline Phosphatase 70 (38-126) U/L Troponin I (0.000-0.034) ng/mL NT-Pro-B Natriuret Pep 2850 pg/mL Total Protein 5.6 L (6.3-8.2) g/dL Albumin 2.8 L (3.5-5.0) g/dL 02/14/25 Range/Units 05:13 WBC (4.50-10.00) 10*3/uL RBC (4.10-5.20) 10*6/uL Hgb (12.0-15.0) g/dL Hct (37.2-46.3) % MCV (80.0-97.0) fL MCH (27.0-32.0) pg MCHC (32.0-37.0) g/dL Plt Count (140-440) 10*3/uL MPV (9.5-12.2) fL Immature Gran % (Auto) % Neutrophils % % Lymphocytes % % Monocytes % % Eosinophils % % Basophils % % Immature Gran # (0.00-0.04) 10*3/uL Neutrophils # (1.80-7.70) 10*3/uL Lymphocytes # (0.90-5.00) 10*3/uL Monocytes # (0.20-1.00) 10*3/uL Eosinophils # (0.04-0.35) 10*3/uL Basophils # (0.00-0.10) 10*3/uL PT (10.0-12.5) sec INR (<1.2) APTT (22.0-30.0) sec Sodium (137-145) mmol/L Potassium (3.5-5.1) mmol/L Chloride (98-107) mmol/L Carbon Dioxide (22-30) mmol/L Anion Gap mmol/L BUN (7-17) mg/dL Creatinine (0.52-1.04) mg/dL Est GFR (CKD-EPI)AfAm (>60 ml/min/1.73 sqM) Est GFR (CKD-EPI)NonAf (>60 ml/min/1.73 sqM) Glucose (74-99) mg/dL Calcium (8.4-10.2) mg/dL Magnesium (1.6-2.3) mg/dL Total Bilirubin (0.2-1.3) mg/dL AST (14-36) U/L ALT (4-34) U/L Alkaline Phosphatase (38-126) U/L Troponin I 0.029 (0.000-0.034) ng/mL NT-Pro-B Natriuret Pep pg/mL Total Protein (6.3-8.2) g/dL Albumin (3.5-5.0) g/dL Disposition Clinical Impression: Acute congestive heart failure, Hypoxia Disposition: ADMITTED IP TO THIS HOSP Condition: Stable Is patient prescribed a controlled substance at d/c from ED?: No Referrals: Valarie Vargas MD [Primary Care Provider] - 1-2 days Time of Disposition: 06:45
[2025-02-14 06:23] LABS: INR 0.9 (<1.2); Partial Thromboplastin Time 24.3 sec (22.0-30.0); Prothrombin Time 10.2 sec (10.0-12.5)
[2025-02-14 06:27] LABS: ALT <6 U/L (4-34); AST 19 U/L (14-36); African American GFR (CKD) 38 (>60 ml/min/1.73 sqM); Albumin 2.8 g/dL (3.5-5.0); Alkaline Phosphatase 70 U/L (38-126); Anion Gap 6 mmol/L; Blood Urea Nitrogen 37 mg/dL (7-17); Calcium 8.7 mg/dL (8.4-10.2); Carbon Dioxide 30 mmol/L (22-30); Chloride 107 mmol/L (98-107); Glucose 102 mg/dL (74-99); Magnesium 1.9 mg/dL (1.6-2.3); Non-African American GFR(CKD) 33 (>60 ml/min/1.73 sqM); Potassium 3.7 mmol/L (3.5-5.1); Sodium 143 mmol/L (137-145); Total Bilirubin 0.3 mg/dL (0.2-1.3); Total Protein 5.6 g/dL (6.3-8.2)
[2025-02-14 06:35] LABS: NT-Pro-B-Type Natriuretic Pept 2850 pg/mL
[2025-02-14] MEDS ORDERED: NALOXONE 0.4 MG/ML 1 ML VIAL IV PRN (06:41)
--- NOTE | 2025-02-14 08:08 | XR ---
EXAMINATION TYPE: XR chest 1V portable DATE OF EXAM: 02/14/2025 6:08 AM COMPARISON: 01/27/2025 CLINICAL INDICATION: Female, 79 years old with history of RJ, TECHNIQUE: XR chest 1V portable view(s) obtained. FINDINGS: The heart size is normal. The pulmonary vasculature is prominent. Diffuse increased lung markings are present. Correlate for pulmonary edema IMPRESSION: 1. Clinical correlation for congestive heart failure [facility], , 02/14/2025 8:06 AM
[2025-02-14] MEDS: FUROSEMIDE 10 MG/ML 4 ML VIAL IV STA (08:41)
[2025-02-14 10:40] LABS: Glucose,Whole Blood 88 mg/dL (70-110)
[2025-02-14] MEDS ORDERED: SIMETHICONE 80 MG CHEWABLE PO PRN (12:27)
[2025-02-14] MEDS ORDERED: polyethylene glycoL 3350 17 GM POWD.PACK PO PRN (12:27)
[2025-02-14] MEDS: AMIODARONE 100 MG TAB PO SCH (13:05)
[2025-02-14] MEDS: DAPAGLIFLOZIN PROPANEDIOL 5 MG TABLET PO SCH (13:05)
[2025-02-14] MEDS: BETHANECHOL 25 MG TAB PO SCH (13:05)
--- NOTE | 2025-02-14 14:43 | P.CRDCN ---
History of Present Illness Consult date: 02/14/25 Consult reason: congestive heart failure History of present illness: This is a 79-year-old female patient of Dr. Chaudhari with past medical history of cardiomyopathy with previous EF of 25%, paroxysmal atrial fibrillation on Eliquis, hypertension, dyslipidemia, valvular heart disease, overweight, chronic lower extremity edema, Parkinson's disease, diabetes mellitus type 2, chronic kidney disease, poor functional capacity. We have been asked to evaluate the patient for CHF. Patient had a recent hospitalization 01/2129 at which time she was treated for acute hypoxic respiratory failure with component of heart failure and pulmonary hypertension. Patient has had a follow-up visit with Dr. Chaudhari on 02/07/2025. She was to increase frequency Bumex 1 mg to twice daily for 1 week. Patient states that she came into the hospital due to worsening breathing. She denies chest pain or chest pressure. No dizziness no palpitations. She denies any cough or fever. No sputum production. Patient has chronic lower extremity edema. Blood pressure 158/89, heart rate 67, pulse ox 98% on 4 L nasal cannula. Patient has been started on IV Lasix 40 mg every 12 hours. Patient is seen today in the emergency center waiting for a bed on the [facility] floor. -EKG: Sinus rhythm with no acute ST changes. -Chest x-ray: Correlate for CHF. -Laboratory studies: WBC 11.2, hemoglobin 9.8, platelet count 209. Sodium 143, potassium 3.7, BUN 37 creatinine 1.42. Troponin 0.029. proBNP 2850. -Home cardiac medications: Amiodarone 100 mg daily, amlodipine 10 mg daily, Eliquis 5 mg twice daily, Bumex 1 mg twice daily, Farxiga 5 mg daily, ferrous sulfate 325 mg daily, Toprol XL 25 mg twice daily, simvastatin 10 mg at bedtime. Patient is also on levothyroxine. -Echocardiogram performed at [facility] on 11/29/2024 revealed EF of 45 to 50%. Severe pulmonary hypertension. Review Of Systems: At the time of my exam: CONSTITUTIONAL: Denies fever or chills. HEENT: Denies blurred vision, vision changes, or eye pain. Denies hemoptysis CARDIOVASCULAR: Denies chest pain. Denies orthopnea. Denies PND. Denies palpitations RESPIRATORY: Denies shortness of breath. GASTROINTESTINAL: Denies abdominal pain. Denies nausea or vomiting. HEMATOLOGIC: Denies bleeding disorders. GENITOURINARY: Denies any blood in urine. SKIN: Denies puritis. Denies rash. Physical examination: Gen: This is a 79-year-old female in no acute distress. VS: reviewed HEENT: Head is atraumatic, normocephalic. Pupils equal, round. Sclerae is anicteric. NECK: Supple. No JVD. LUNGS: Diminished breath sounds bilaterally. No intercostal retractions. HEART: Regular rate and rhythm. Systolic murmur. ABDOMEN: Soft No tenderness. EXTREMITIES: 23+ bilateral lower extremity edema. No calf tenderness. NEUROLOGICAL: Patient is awake, alert and oriented x3. Assessment: Acute on chronic systolic heart failure Cardiomyopathy unknown if ischemic or nonischemic Paroxysmal atrial fibrillation currently in sinus rhythm Hypertension Dyslipidemia Severe pulmonary hypertension Parkinson's disease Chronic lower extremity edema Chronic kidney disease Hypothyroidism Plan: Resume patient's home cardiac medications Continue IV Lasix 40 mg every 12 hours Monitor QUENTIN, daily weights, electrolytes and renal function Recheck BNP in the morning Obtain TSH and free T4 No need to repeat echocardiogram as this was done in November Obtain limited echocardiogram and Doppler study to assess pulmonary hypertension Further recommendations to follow based upon clinical course Thank you kindly for this consultation. Nurse practitioner note has been reviewed, I agree with documented findings and plan of care. Patient was seen and examined. Past Medical History Past Medical History: Heart Failure, Diabetes Mellitus, Hyperlipidemia, Hypertension, Pneumonia, Rheumatoid Arthritis (RA) Additional Past Medical History / Comment(s): tremors, renal lithiasis, hemorrhoids(sx done), "has had problems w/low magnesium.anemia. per spouse pt had past cancer "uterine or cervical-had hysterectomy". it was previously charted that pt had hx of ra and cfh spouse not able to verify this, Parkinsons History of Any Multi-Drug Resistant Organisms: ESBL, MRSA Date of last positivie culture/infection: 01/13/25-MRSA; 09/15/23-ESBL MDRO Source:: MRSA-rt hip; ESBL-URINE Past Surgical History: Appendectomy, Hysterectomy, Orthopedic Surgery, Tonsillectomy Additional Past Surgical History / Comment(s): rt total knee repalcement, cataracts, hemmorroidectomy, colonoscopy Past Anesthesia/Blood Transfusion Reactions: No Reported Reaction Additional Past Anesthesia/Blood Transfusion Reaction / Comment(s): per psouse- pt never receieved any blood Past Psychological History: No Psychological Hx Reported Smoking Status: Never smoker Past Alcohol Use History: None Reported Past Drug Use History: None Reported - Past Family History Mother Family Medical History: Diabetes Mellitus Father Additional Family Medical History / Comment(s): brain anuerysm Medications and Allergies Home Medications Medication Instructions Recorded Confirmed Type Primidone 50 mg PO TID-W/MEALS@,07/23/22 02/14/25 History busPIRone HCl [Buspar] 5 mg PO BID 07/23/22 02/14/25 History Carbidopa-Levodopa 25-100 mg 1 tab PO TID-W/MEALS@,09/14/23 02/14/25 History [Sinemet 25-100 mg] Escitalopram Oxalate [Lexapro] 10 mg PO HS 09/14/23 02/14/25 History Levothyroxine Sodium [Synthroid] 75 mcg PO DAILY@59902/27/24 02/14/25 History Simethicone 180 mg PO ACHS PRN 02/27/24 02/14/25 History polyethylene glycoL 3350 [Miralax] 17 gm PO DAILY PRN 02/27/24 02/14/25 History Acetaminophen Tab [Tylenol] 500 mg PO Q6H PRN 06/03/24 02/14/25 History Amiodarone [Cordarone] 100 mg PO DAILY 06/03/24 02/14/25 History Famotidine [Pepcid] 20 mg PO DAILY@0611/29/24 02/14/25 History Insulin Glargine,Hum.rec.anlog 36 units SQ DAILY@0711/29/24 02/14/25 History [Lantus Solostar Pen] Simvastatin [Zocor] 10 mg PO HS 11/29/24 02/14/25 History amLODIPine [Norvasc] 10 mg PO DAILY 11/29/24 02/14/25 History Metoprolol Succinate (ER) [Toprol 25 mg PO BID tab 12/07/24 02/14/25 Rx XL] Cyanocobalamin [Vitamin B-12] 500 mcg PO DAILY 01/23/25 02/14/25 History Ferrous Sulfate [Iron (65 MG 325 mg PO DAILY 01/23/25 02/14/25 History Elemental)] Ipratropium-Albuterol Nebulize 3 ml INHALATION RT-QID 01/23/25 02/14/25 History [Duoneb 0.5 mg-3 mg/3 ml Soln] Sennosides/Docusate Sodium 1 tab PO DAILY 01/23/25 02/14/25 History [Senna-S 8.6-50 mg Tablet] Apixaban [Eliquis] 5 mg PO BID tab 01/31/25 02/14/25 Rx Dapagliflozin Propanediol [Farxiga] 5 mg PO DAILY tab 01/31/25 02/14/25 Rx Bethanechol Chloride 50 mg PO TID@0900,1300,2100 02/14/25 02/14/25 History Bumetanide [BUMEX] See Taper PO DIRECTED 02/14/25 02/14/25 History INSULIN LISPRO (HumaLOG) [HumaLOG] 4 units SQ BID@1200,1700 02/14/25 02/14/25 History INSULIN LISPRO (HumaLOG) [HumaLOG] See Protocol SQ TID-W/MEALS 02/14/25 02/14/25 History Allergies Allergy/AdvReac Type Severity Reaction Status Date / Time gabapentin AdvReac Hallucinati Verified 02/14/25 09:33 ons Physical Exam Vitals: Vital Signs Temp Pulse Resp BP Pulse Ox 02/14/25 13:00 67 24 158/89 98 02/14/25 12:45 92 L 02/14/25 12:00 69 24 130/67 92 L 02/14/25 11:00 71 26 H 138/40 93 L 02/14/25 10:16 98 F 70 24 100/47 94 L 02/14/25 09:00 74 24 123/89 96 02/14/25 08:00 75 22 139/72 96 02/14/25 07:03 65 28 H 121/81 98 02/14/25 05:14 28 H 02/14/25 05:09 97.3 F L 67 28 H 142/80 97 Intake and Output 02/13/25 02/14/25 02/14/25 22:59 06:59 14:59 Other: Weight 95.254 kg Results 02/14/25 05:13 02/14/25 05:13 Cardiac Enzymes 02/14/25 02/14/25 Range/Units 05:13 05:13 AST 19 (14-36) U/L Troponin I 0.029 (0.000-0.034) ng/mL Coagulation 02/14/25 Range/Units 05:13 PT 10.2 (10.0-12.5) sec APTT 24.3 (22.0-30.0) sec CBC 02/14/25 Range/Units 05:13 WBC 11.26 H (4.50-10.00) 10*3/uL RBC 3.36 L (4.10-5.20) 10*6/uL Hgb 9.8 L (12.0-15.0) g/dL Hct 32.2 L (37.2-46.3) % Plt Count 209 (140-440) 10*3/uL Comprehensive Metabolic Panel 02/14/25 Range/Units 05:13 Sodium 143 (137-145) mmol/L Potassium 3.7 (3.5-5.1) mmol/L Chloride 107 (98-107) mmol/L Carbon Dioxide 30 (22-30) mmol/L BUN 37 H (7-17) mg/dL Creatinine 1.52 H (0.52-1.04) mg/dL Glucose 102 H (74-99) mg/dL Calcium 8.7 (8.4-10.2) mg/dL AST 19 (14-36) U/L ALT <6 (4-34) U/L Alkaline Phosphatase 70 (38-126) U/L Total Protein 5.6 L (6.3-8.2) g/dL Albumin 2.8 L (3.5-5.0) g/dL Current Medications Generic Name Dose Route Start Last Admin Trade Name Freq PRN Reason Stop Dose Admin Acetaminophen 650 mg 02/14/25 06:41 Acetaminophen Tab 325 Mg Tab PO Q6HR PRN Mild Pain or Fever > 100.5 Albuterol/Ipratropium 3 ml 02/14/25 16:00 Ipratropium-Albuterol 3 Ml Neb INHALATION RT-QID ROMERO Amiodarone HCl 100 mg 02/14/25 12:30 02/14/25 13:05 Amiodarone 100 Mg Tab PO 100 mg DAILY ROMERO Administration Apixaban 5 mg 02/14/25 21:00 Apixaban 5 Mg Tab PO BID [facility] Protocol Atorvastatin Calcium 10 mg 02/14/25 21:00 Atorvastatin 10 Mg Tab PO HS [facility] Bethanechol Chloride 50 mg 02/14/25 13:00 02/14/25 13:05 Bethanechol 25 Mg Tab PO 50 mg TID@0900,1300,2100 [facility] Administration Buspirone HCl 5 mg 02/14/25 21:00 Buspirone Hcl 5 Mg Tab PO BID [facility] Carbidopa/Levodopa 1 each 02/14/25 17:00 Carbidopa-Levodopa 25-100 Mg 1 Each Tab PO TID-W/MEALS@08,, [facility] Cyanocobalamin 500 mcg 02/15/25 09:00 Cyanocobalamin 500 Mcg Tab PO DAILY [facility] Dapagliflozin 5 mg 02/14/25 12:30 02/14/25 13:05 Dapagliflozin Propanediol 5 Mg Tablet PO 5 mg DAILY [facility] Administration Escitalopram Oxalate 10 mg 02/14/25 21:00 Escitalopram 10 Mg Tab PO HS [facility] Ferrous Sulfate 325 mg 02/15/25 09:00 Ferrous Sulfate 325 Mg Tab PO DAILY [facility] Furosemide 40 mg 02/14/25 18:00 Furosemide 10 Mg/Ml 4 Ml Vial IV Q12HR@0600,1800 [facility] Insulin Glargine 36 unit 02/15/25 07:00 Insulin Glargine (Lantus) 100 Unit/Ml Syr SQ DAILY@0700 [facility] Insulin Human Lispro 4 unit 02/14/25 17:00 Insulin Lispro (Humalog) 100 Unit/Ml 10 Ml Vl SQ BID@1200,1700 [facility] Levothyroxine Sodium 75 mcg 02/15/25 06:00 Levothyroxine 75 Mcg Tab PO DAILY@0600 [facility] Metoprolol Succinate 25 mg 02/14/25 21:00 Metoprolol Succinate (Er) 25 Mg Tab.Er.24h PO BID [facility] Naloxone HCl 0.2 mg 02/14/25 06:41 Naloxone 0.4 Mg/Ml 1 Ml Vial IV Q2M PRN Opioid Reversal Polyethylene Glycol 17 gm 02/14/25 12:27 Polyethylene Glycol 3350 17 Gm Powd.Pack PO DAILY PRN Constipation Primidone 50 mg 02/14/25 17:00 Primidone 50 Mg Tab PO TID-W/MEALS@, [facility] Senna/Docusate Sodium 1 each 02/15/25 09:00 Sennosides-Docusate Sodium 1 Each Tab PO DAILY [facility] Simethicone 160 mg 02/14/25 12:27 Simethicone 80 Mg Chewable PO ACHS PRN gas/bloating Intake and Output 02/13/25 02/14/25 02/14/25 22:59 06:59 14:59 Other: Weight 95.254 kg 02/14/25 05:13 02/14/25 05:13
[2025-02-14] MEDS ORDERED: ZINC OXIDE PASTE (Z-GUARD) 1 APPLIC TOPICAL PRN (15:34)
[2025-02-14] MEDS: HYDROCORTISONE SUPPOSITORY 25 MG SUPP RECTAL SCH (16:32)
--- NOTE | 2025-02-14 16:35 | P.CNPUL ---
History of Present Illness Consult date: 02/14/25 Requesting physician: Evelio Duckworth History of present illness: The patient is a 79-year-old female with past medical history significant for Parkinson's disease, hypertension, hyperlipidemia, diabetes mellitus, hypothyroidism, chronic kidney disease, atrial fibrillation, heart failure, chronic oxygen dependence, frequent urinary tract infections. Patient is a poor historian. Of note, patient recently had a hospitalizations in November and again in Jan, 2025 for exacerbation of congestive heart failure. Most recent available echocardiogram from Jan, 2025 estimating a mildly reduced left ventricular ejection fraction of 45% along with severe pulmonary hypertension. Patient sent in again today from [facility] for hypoxia and shortness of breath. Reportedly her O2 saturations were in the 30s. She was placed on a nonrebreather and gave an albuterol treatment in transit. She is seen today in the emergency department. She is a poor historian still and she has some garbled speech as well. Chest x-ray shows pulmonary vascular congestion. Currently in sinus rhythm. White count 11.2. Hemoglobin 9.8. Platelets 209. Sodium 143. Potassium 3.7. Bicarb 30. BUN 37. Creatinine 1.52. Glucose 102. proBNP 2850. Troponin 0.029. She is currently maintaining O2 saturations in the mid to upper 90s on 4 L/min per nasal cannula. She is afebrile. Hemodynamically stable. She has been initiated on Lasix 40 mg IV every 12 hours. Review of Systems ROS unobtainable: due to mental status Past Medical History Past Medical History: Heart Failure, Diabetes Mellitus, Hyperlipidemia, Hypertension, Pneumonia, Rheumatoid Arthritis (RA) Additional Past Medical History / Comment(s): tremors, renal lithiasis, hemorrhoids(sx done), "has had problems w/low magnesium.anemia. per spouse pt had past cancer "uterine or cervical-had hysterectomy". it was previously charted that pt had hx of ra and cfh spouse not able to verify this, Parkinsons History of Any Multi-Drug Resistant Organisms: ESBL, MRSA Date of last positivie culture/infection: 01/13/25-MRSA; 09/15/23-ESBL MDRO Source:: MRSA-rt hip; ESBL-URINE Past Surgical History: Appendectomy, Hysterectomy, Orthopedic Surgery, Tonsillectomy Additional Past Surgical History / Comment(s): rt total knee repalcement, cataracts, hemmorroidectomy, colonoscopy Past Anesthesia/Blood Transfusion Reactions: No Reported Reaction Additional Past Anesthesia/Blood Transfusion Reaction / Comment(s): per psouse- pt never receieved any blood Past Psychological History: No Psychological Hx Reported Smoking Status: Never smoker Past Alcohol Use History: None Reported Past Drug Use History: None Reported - Past Family History Mother Family Medical History: Diabetes Mellitus Father Additional Family Medical History / Comment(s): brain anuerysm Medications and Allergies Home Medications Medication Instructions Recorded Confirmed Type Primidone 50 mg PO TID-W/MEALS@,,07/23/22 02/14/25 History busPIRone HCl [Buspar] 5 mg PO BID 07/23/22 02/14/25 History Carbidopa-Levodopa 25-100 mg 1 tab PO TID-W/MEALS@,,09/14/23 02/14/25 History [Sinemet 25-100 mg] Escitalopram Oxalate [Lexapro] 10 mg PO HS 09/14/23 02/14/25 History Levothyroxine Sodium [Synthroid] 75 mcg PO DAILY@59902/27/24 02/14/25 History Simethicone 180 mg PO ACHS PRN 02/27/24 02/14/25 History polyethylene glycoL 3350 [Miralax] 17 gm PO DAILY PRN 02/27/24 02/14/25 History Acetaminophen Tab [Tylenol] 500 mg PO Q6H PRN 06/03/24 02/14/25 History Amiodarone [Cordarone] 100 mg PO DAILY 06/03/24 02/14/25 History Famotidine [Pepcid] 20 mg PO DAILY@0611/29/24 02/14/25 History Insulin Glargine,Hum.rec.anlog 36 units SQ DAILY@0711/29/24 02/14/25 History [Lantus Solostar Pen] Simvastatin [Zocor] 10 mg PO HS 11/29/24 02/14/25 History amLODIPine [Norvasc] 10 mg PO DAILY 11/29/24 02/14/25 History Metoprolol Succinate (ER) [Toprol 25 mg PO BID tab 12/07/24 02/14/25 Rx XL] Cyanocobalamin [Vitamin B-12] 500 mcg PO DAILY 01/23/25 02/14/25 History Ferrous Sulfate [Iron (65 MG 325 mg PO DAILY 01/23/25 02/14/25 History Elemental)] Ipratropium-Albuterol Nebulize 3 ml INHALATION RT-QID 01/23/25 02/14/25 History [Duoneb 0.5 mg-3 mg/3 ml Soln] Sennosides/Docusate Sodium 1 tab PO DAILY 01/23/25 02/14/25 History [Senna-S 8.6-50 mg Tablet] Apixaban [Eliquis] 5 mg PO BID tab 01/31/25 02/14/25 Rx Dapagliflozin Propanediol [Farxiga] 5 mg PO DAILY tab 01/31/25 02/14/25 Rx Bethanechol Chloride 50 mg PO TID@0900,1300,2100 02/14/25 02/14/25 History Bumetanide [BUMEX] See Taper PO DIRECTED 02/14/25 02/14/25 History INSULIN LISPRO (HumaLOG) [HumaLOG] 4 units SQ BID@1200,1700 02/14/25 02/14/25 History INSULIN LISPRO (HumaLOG) [HumaLOG] See Protocol SQ TID-W/MEALS 02/14/25 02/14/25 History Allergies Allergy/AdvReac Type Severity Reaction Status Date / Time gabapentin AdvReac Hallucinati Verified 02/14/25 09:33 ons Physical Exam Vitals: Vital Signs Temp Pulse Resp BP Pulse Ox 02/14/25 13:00 67 24 158/89 98 02/14/25 12:45 92 L 02/14/25 12:00 69 24 130/67 92 L 02/14/25 11:00 71 26 H 138/40 93 L 02/14/25 10:16 98 F 70 24 100/47 94 L 02/14/25 09:00 74 24 123/89 96 02/14/25 08:00 75 22 139/72 96 02/14/25 07:03 65 28 H 121/81 98 02/14/25 05:14 28 H 02/14/25 05:09 97.3 F L 67 28 H 142/80 97 Intake and Output 02/14/25 02/14/25 02/14/25 06:59 14:59 22:59 Other: Weight 95.254 kg GENERAL EXAM: Alert, poor historian, 79-year-old female, garbled speech, on 4 L nasal cannula, fairly comfortable in no apparent distress. HEAD: Normocephalic. EYES: Normal reaction of pupils, equal size. NOSE: Clear with pink turbinates. THROAT: No erythema or exudates. NECK: No masses, no JVD. CHEST: No chest wall deformity. LUNGS: Equal air entry with crackles in the bilateral bases. CVS: S1 and S2 normal with no audible murmur, regular rhythm. ABDOMEN: No hepatosplenomegaly, normal bowel sounds, no guarding or rigidity. SPINE: No scoliosis or deformity SKIN: No rashes CENTRAL NERVOUS SYSTEM: No focal deficits, tone is normal in all 4 extremities. EXTREMITIES: There is 1-2+ peripheral edema. No clubbing, no cyanosis. Peripheral pulses are intact. Results - Laboratory Findings CBC and BMP: 02/14/25 05:13 02/14/25 05:13 PT/INR, D-dimer PT 10.2 sec (10.0-12.5) 02/14/25 05:13 INR 0.9 (<1.2) 02/14/25 05:13 Abnormal lab findings: Abnormal Labs 02/14/25 02/14/25 05:13 05:13 WBC 11.26 H RBC 3.36 L Hgb 9.8 L Hct 32.2 L MCHC 30.4 L MPV 9.0 L Immature Gran # 0.06 H Neutrophils # 10.00 H Lymphocytes # 0.56 L BUN 37 H Creatinine 1.52 H Glucose 102 H Total Protein 5.6 L Albumin 2.8 L - Diagnostic Findings Chest x-ray: image reviewed Assessment and Plan Assessment: Acute exacerbation of congestive heart failure, with mild reduced ejection fraction Acute on chronic hypoxemic respiratory failure secondary to above, on 4 L/min nasal cannula Acute kidney injury secondary to ATN and cardiorenal syndrome Acute mild leukocytosis Hypertension Hyperlipidemia History of diabetes mellitus, insulin-dependent Chronic kidney disease stage IIIb Anemia of chronic disease History of paroxysmal atrial fibrillation, anticoagulated with Eliquis History of hypothyroidism History of rheumatoid arthritis History of frequent urinary tract infections History of right hip wound, cultures were positive for MRSA Obesity, with a BMI of 34.9 kg/m Plan: The patient was seen and evaluated Chest x-ray, labs and medications reviewed Continue Lasix 40 mg IV every 12 hours Titrate the FiO2 as tolerated Resume her home medications Anticoagulated with Eliquis Plan to return to [facility] at discharge We will continue to follow and make further recommendations based on her clinical status I have personally seen and examined the patient, performed the documentation and the assessment and plan as written. Number of minutes spent on the visit: 20 Dictation was produced using [employer] dictation software. Please excuse any grammatical, word or spelling errors. Time with Patient: Greater than 30
[2025-02-14 17:02] LABS: Glucose,Whole Blood 121 mg/dL (70-110)
[2025-02-14] MEDS: IPRATROPIUM-ALBUTEROL 3 ML NEB INHALATION SCH (17:04)
[2025-02-14] MEDS: PRIMIDONE 50 MG TAB PO SCH (17:14)
[2025-02-14] MEDS: CARBIDOPA-LEVODOPA 25-100 MG 1 EACH TAB PO SCH (17:14)
[2025-02-14] MEDS: INSULIN LISPRO (HumaLOG) 100 UNIT/ML 10 mL VL SQ SCH (17:17)
[2025-02-14] MEDS: FUROSEMIDE 10 MG/ML 4 ML VIAL IV SCH (18:31)
--- NOTE | 2025-02-14 20:14 | HP ---
HISTORY AND PHYSICAL CHIEF COMPLAINT: Shortness of breath. HISTORY OF PRESENT ILLNESS: This 79-year-old woman with a past medical history of multiple medical problems including CHF, was having issues with shortness of breath and hypoxia. The patient was in rehab at this time. The pulse was very low. The patient was put on non-rebreather and sent to [facility] for further evaluation and treatment. A chest x-ray, which was done in the ER, which I evaluated personally showed significant CHF bilaterally, abdominal distention as well as the patient also had bilateral leg edema, and also multiple consultants are following the patient closely. PAST MEDICAL HISTORY: Reviewed, include CHF and rest of the chart is also reviewed. MEDICATIONS: Home medications are again reviewed, include MiraLAX. Dose and rest of medications reviewed. ALLERGIES: Gabapentin. FAMILY HISTORY: History of diabetes and brain aneurysm in the family. SOCIAL HISTORY: No smoking. No alcohol intake or drug use. REVIEW OF SYSTEMS: Could not be taken because the patient is mildly confused. PHYSICAL EXAMINATION: VITAL SIGNS: Pulse 70, blood pressure is 100/47, respirations 24. HEENT: Conjunctivae normal. NECK: Jugular venous distention in root of neck. CARDIAC: S1 and S2. RESPIRATORY: Few scattered rhonchi. ABDOMEN: Soft. LEGS: Bilateral leg edema. NERVOUS SYSTEM: Diffusely weak. LABORATORY DATA: WBCs 11.6 and hemoglobin 9.8. ASSESSMENT: 1. Congestive heart failure acute exacerbation with acute on chronic systolic dysfunction, ejection fraction 45% to 50%. 2. Severe pulmonary hypertension and mild right ventricular dilatation. 3. Diabetes mellitus, type 2. 4. Hypertension. 5. Hyperlipidemia. 6. History of pneumonia. 7. History of rheumatoid arthritis. 8. History of hemorrhoids. 9. Multiple complex medical issues. 10.Chronic kidney disease, stage 3. RECOMMENDATIONS AND DISCUSSION: This 79-year-old woman presented with multiple complex medical issues. We will monitor the patient closely. I would recommend to continue the current medications. I would recommend to continue with Lasix. I would recommend Cardiology, Nephrology consultations. Resume the home medications. Avoid nephrotoxic medications. The prognosis maybe guarded which I discussed at length with the daughter at the bedside and further recommendations to follow. See orders for details. MMODL / IJN: [id number] /
[2025-02-14 20:35] LABS: Glucose,Whole Blood 284 mg/dL (70-110)
[2025-02-14] MEDS: METOPROLOL SUCCINATE (ER) 25 MG TAB.ER.24H PO SCH (21:02)
[2025-02-14] MEDS: ATORVASTATIN 10 MG TAB PO SCH (21:02)
[2025-02-14] MEDS: APIXABAN 5 MG TAB PO SCH (21:02)
[2025-02-14] MEDS: busPIRone HCl 5 MG TAB PO SCH (21:02)
[2025-02-14] MEDS: ESCITALOPRAM 10 MG TAB PO SCH (21:46)
[2025-02-15] MEDS: LEVOTHYROXINE 75 MCG TAB PO SCH (06:17)
[2025-02-15] MEDS: INSULIN GLARGINE (LANTUS) 100 UNIT/ML SYR SQ SCH (06:17)
[2025-02-15 06:27] LABS: Glucose,Whole Blood 155 mg/dL (70-110)
--- NOTE | 2025-02-15 08:02 | P.PN ---
Subjective This is a pleasant 79 years old female from [facility] who was sent because of dyspnea Patient was found to be in acute CHF with ejection fraction 45 to 50% based on recent echocardiogram done about 3 months ago. Also she has evidence of severe pulmonary hypertension and history of paroxysmal atrial fibrillation Eliquis This Morning She Was Still Looks Tired Lying in Bed Awake Alert She Knows She Is in the [facility] Because of Her Breathing Problem Denies Any Abdominal Pain or Diarrhea or Vomiting. No Specific Urinary Complaints. She Still Feels Short of Breath. She States She Is Uses Oxygen at Home/Fdc but She Is Not Sure How Much She Thinks It Might Be True for Her 3 L. Vital Stable Today She Is Satting 93% on Room Air Heart Rate Is 68-75. WBC 11.1 Hemoglobin 9.8, Creatinine 1.5 with Baseline 1.6-2.0. proBNP Is Elevated to 850. Troponin Is -0.029. TSH Is Elevated 9.4. Chest X-Ray Showing CHF. EKG Showing Sinus Rhythm at 71. Echocardiogram from 11/2024 Showed Ejection Fraction of 45 to 50% Review of systems CARDIOVASCULAR: No orthopnea, PND, no palpitations, no syncope. GASTROINTESTINAL: No diarrhea, no nausea, no vomiting, no abdominal pain. Normoactive bowel sounds. NEUROLOGICAL: No headaches, no weakness, no numbness. HEMATOLOGICAL: Denies any bleeding or petechiae. MUSCULOSKELETAL/RHEUMATOLOGICAL: Denies any joint pain, swelling, or any muscle pain. ENDOCRINE: Denies any polyuria or polydipsia. Active Medications Generic Name Dose Route Start Last Admin Trade Name Freq PRN Reason Stop Dose Admin Acetaminophen 650 mg 02/14/25 06:41 Acetaminophen Tab 325 Mg Tab PO Q6HR PRN Mild Pain or Fever > 100.5 Albuterol/Ipratropium 3 ml 02/14/25 16:00 02/14/25 20:03 Ipratropium-Albuterol 3 Ml Neb INHALATION 3 ml RT-QID ROMERO Administration Amiodarone HCl 100 mg 02/14/25 12:30 02/14/25 13:05 Amiodarone 100 Mg Tab PO 100 mg DAILY ROMERO Administration Apixaban 5 mg 02/14/25 21:00 02/14/25 21:02 Apixaban 5 Mg Tab PO 5 mg BID ROMERO Administration Protocol Atorvastatin Calcium 10 mg 02/14/25 21:00 02/14/25 21:02 Atorvastatin 10 Mg Tab PO 10 mg HS ROMERO Administration Bethanechol Chloride 50 mg 02/14/25 13:00 02/14/25 21:46 Bethanechol 25 Mg Tab PO 50 mg TID@0900,1300,2100 ROMERO Administration Buspirone HCl 5 mg 02/14/25 21:00 02/14/25 21:02 Buspirone Hcl 5 Mg Tab PO 5 mg BID ROMERO Administration Carbidopa/Levodopa 1 each 02/14/25 17:00 02/14/25 17:14 Carbidopa-Levodopa 25-100 Mg 1 Each Tab PO 1 each TID-W/MEALS@08,12,17 [facility] Administration Cyanocobalamin 500 mcg 02/15/25 09:00 Cyanocobalamin 500 Mcg Tab PO DAILY ROMERO Dapagliflozin 5 mg 02/14/25 12:30 02/14/25 13:05 Dapagliflozin Propanediol 5 Mg Tablet PO 5 mg DAILY [facility] Administration Escitalopram Oxalate 10 mg 02/14/25 21:00 02/14/25 21:46 Escitalopram 10 Mg Tab PO 10 mg HS ROMERO Administration Ferrous Sulfate 325 mg 02/15/25 09:00 Ferrous Sulfate 325 Mg Tab PO DAILY [facility] Furosemide 40 mg 02/14/25 18:00 02/15/25 06:17 Furosemide 10 Mg/Ml 4 Ml Vial IV 40 mg Q12HR@0600,1800 [facility] Administration Hydrocortisone Acetate 25 mg 02/14/25 15:45 02/14/25 16:32 Hydrocortisone Suppository 25 Mg Supp RECTAL 25 mg DAILY [facility] Administration Insulin Glargine 36 unit 02/15/25 07:00 02/15/25 06:17 Insulin Glargine (Lantus) 100 Unit/Ml Syr SQ 36 unit DAILY@0700 [facility] Administration Insulin Human Lispro 4 unit 02/14/25 17:00 02/14/25 17:17 Insulin Lispro (Humalog) 100 Unit/Ml 10 Ml Vl SQ Not Given BID@1200,1700 [facility] Levothyroxine Sodium 75 mcg 02/15/25 06:00 02/15/25 06:17 Levothyroxine 75 Mcg Tab PO 75 mcg DAILY@0600 [facility] Administration Metoprolol Succinate 25 mg 02/14/25 21:00 02/14/25 21:02 Metoprolol Succinate (Er) 25 Mg Tab.Er.24h PO 25 mg BID ROMERO Administration Naloxone HCl 0.2 mg 02/14/25 06:41 Naloxone 0.4 Mg/Ml 1 Ml Vial IV Q2M PRN Opioid Reversal Petrolatum 1 applic 02/14/25 15:34 Zinc Oxide Paste (Z-Guard) 1 Applic TOPICAL BID PRN [facility]ound Healing Protocol Polyethylene Glycol 17 gm 02/14/25 12:27 Polyethylene Glycol 3350 17 Gm Powd.Pack PO DAILY PRN Constipation Primidone 50 mg 02/14/25 17:00 02/14/25 17:14 Primidone 50 Mg Tab PO 50 mg TID-W/MEALS@,, ROMERO Administration Senna/Docusate Sodium 1 each 02/15/25 09:00 Sennosides-Docusate Sodium 1 Each Tab PO DAILY ROMERO Simethicone 160 mg 02/14/25 12:27 Simethicone 80 Mg Chewable PO ACHS PRN gas/bloating Objective - Vital Signs Vital signs: Vital Signs Temp 98.6 F 02/15/25 00:35 Pulse 76 02/15/25 06:07 Resp 17 02/15/25 00:35 BP 161/78 02/15/25 06:07 Pulse Ox 93 L 02/15/25 00:35 FiO2 Intake & Output 02/14/25 02/15/25 02/15/25 18:59 06:59 18:59 Intake Total 250 Balance 250 Weight 95.254 kg Intake: Oral 250 Other: Voiding Method Incontinent External Catheter # Voids 3 - Exam -GENERAL: The patient is alert and oriented x3, not in any acute distress. Well developed, well nourished. Generally tired and weak, obese HEENT: Pupils are round and equally reacting to light. EOMI. No scleral icterus. No conjunctival pallor. Normocephalic, atraumatic. No pharyngeal erythema. No thyromegaly. CARDIOVASCULAR: S1 and S2 present. No murmurs, rubs, or gallops. -PULMONARY: Chest is clear to auscultation, no wheezing , bilateral basal crackles. ABDOMEN: Soft, nontender, nondistended, normoactive bowel sounds. No palpable organomegaly. MUSCULOSKELETAL: No joint swelling or deformity. -EXTREMITIES: No cyanosis, clubbing,. Bilateral pitting leg edema. NEUROLOGICAL: Gross neurological examination did not reveal any focal deficits. SKIN: No rashes. no petechiae. - Labs CBC & Chem 7: 02/14/25 05:13 02/14/25 05:13 Labs: Abnormal Lab Results - Last 24 Hours (Table) 02/14/25 02/14/25 02/14/25 Range/Units 05:13 17:01 20:34 POC Glucose (mg/dL) 121 H 284 H (70-110) mg/dL TSH 9.450 H (0.350-5.500) UIU/ML 02/15/25 Range/Units 06:26 POC Glucose (mg/dL) 155 H (70-110) mg/dL TSH (0.350-5.500) UIU/ML Assessment and Plan Assessment: Acute CHF with ejection fraction 45 to 50% Severe pulmonary hypertension Paroxysmal atrial fibrillation Parkinson disease History of anxiety Chronic kidney disease stage III Plan: Continue with IV Lasix Continue with Eliquis Cardiology team consult Pulmonary team consult Continue with oxygen therapy and bronchodilator Labs and medication were reviewed.. Continue same treatment. Continue with symptomatic treatment. Resume home medication. Monitor labs and vitals. DVT and GI prophylaxis. Further recommendations as per clinical course of the patient DVT prophylaxis: S Eliquis GI Prophylaxis: Pepcid from [facility] Prognosis is guarded
[2025-02-15 08:40] LABS: BUN/Creat Ratio 19.73 Ratio (12.00-20.00); Blood Urea Nitrogen 29.6 mg/dL (9.0-27.0); Carbon Dioxide 28.6 mmol/L (21.6-31.8); Chloride 112 mmol/L (96-109); Glucose 147 mg/dL (70-110); Potassium 3.3 mmol/L (3.5-5.5); Sodium 153 mmol/L (135-145)
[2025-02-15 08:45] LABS: Basophils # (A) 0.01 X 10*3/uL (0.00-0.10); Basophils % (A) 0.1 %; Eosinophils % (A) 1.2 %; HCT 31.5 % (37.2-46.3); HGB 9.3 g/dL (12.0-15.0); Lymphocytes # (A) 0.73 X 10*3/uL (0.90-5.00); Lymphocytes % (A) 8.9 %; MCH 28.5 pg (27.0-32.0); MCHC 29.5 g/dL (32.0-37.0); MCV 96.6 FL (80.0-97.0); Mean Platelet Volume 9.5 FL (9.5-12.2); Monocytes # (A) 0.52 X 10*3/uL (0.20-1.00); Monocytes % (A) 6.3 %; NRBC Per 100 WBC 0 X 10*3/uL (0.00-0.01); Neutrophils # (A) 6.83 X 10*3/uL (1.80-7.70); Neutrophils % (A) 82.9 %; Platelet Count 219 X 10*3/uL (140-440); RBC 3.26 X 10*6/uL (4.10-5.20); RDW 15.5 % (11.5-14.5); WBC 8.24 X 10*3/uL (4.50-10.00)
--- NOTE | 2025-02-15 09:42 | P.PN ---
Subjective Progress Note Date: 02/15/25 Consult reason: congestive heart failure History of present illness: This is a 79-year-old female patient of Dr. Chaudhari with past medical history of cardiomyopathy with previous EF of 25%, paroxysmal atrial fibrillation on Eliquis, hypertension, dyslipidemia, valvular heart disease, overweight, chronic lower extremity edema, Parkinson's disease, diabetes mellitus type 2, chronic kidney disease, poor functional capacity. We have been asked to evaluate the patient for CHF. Patient had a recent hospitalization 01/2129 at which time she was treated for acute hypoxic respiratory failure with component of heart failure and pulmonary hypertension. Patient has had a follow-up visit with Dr. Chaudhari on 02/07/2025. She was to increase frequency Bumex 1 mg to twice daily for 1 week. Patient states that she came into the hospital due to worsening breathing . She denies chest pain or chest pressure. No dizziness no palpitations. She denies any cough or fever. No sputum production. Patient has chronic lower extremity edema. Blood pressure 158/89, heart rate 67, pulse ox 98% on 4 L nasal cannula. Patient has been started on IV Lasix 40 mg every 12 hours. Patient is seen today in the emergency center waiting for a bed on the [facility] floor. -EKG: Sinus rhythm with no acute ST changes. -Chest x-ray: Correlate for CHF. -Laboratory studies: WBC 11.2, hemoglobin 9.8, platelet count 209. Sodium 143, potassium 3.7, BUN 37 creatinine 1.42. Troponin 0.029. proBNP 2850. -Home cardiac medications: Amiodarone 100 mg daily, amlodipine 10 mg daily, Eliquis 5 mg twice daily, Bumex 1 mg twice daily, Farxiga 5 mg daily, ferrous sulfate 325 mg daily, Toprol XL 25 mg twice daily, simvastatin 10 mg at bedtime. Patient is also on levothyroxine. -Echocardiogram performed at [facility] on 11/29/2024 revealed EF of 45 to 50%. Severe pulmonary hypertension. 02/15 Patient seen and examined. Patient remains on IV Lasix 40 mg every 12 hours. She states she feels a little bit better and shortness of breath is a little bit better. She denies any chest pain or chest pressure. Blood pressure 144/75, heart rate in the 70s, pulse ox 90% on 3 L nasal cannula. Repeat blood work reveals hemoglobin 9.3. Sodium 153, potassium 3.3, BUN 29 creatinine 1.5. TSH 9.45 and normal free T41.1. Limited echocardiogram has been obtained and report is pending. Physical examination: Gen: This is a 79-year-old female in no acute distress. VS: reviewed HEENT: Head is atraumatic, normocephalic. Pupils equal, round. Sclerae is anicteric. NECK: Supple. No JVD. LUNGS: Diminished breath sounds bilaterally. No intercostal retractions. HEART: Regular rate and rhythm. Systolic murmur. ABDOMEN: Soft No tenderness. EXTREMITIES: 2+ bilateral lower extremity edema. No calf tenderness. NEUROLOGICAL: Patient is awake, alert and oriented x3. Assessment: Acute on chronic systolic heart failure Cardiomyopathy unknown if ischemic or nonischemic Paroxysmal atrial fibrillation currently in sinus rhythm Hypertension Dyslipidemia Severe pulmonary hypertension Parkinson's disease Chronic lower extremity edema Chronic kidney disease Hypothyroidism Plan: Continue patient's home cardiac medications Continue IV Lasix 40 mg every 12 hours Monitor QUENTIN, daily weights, electrolytes and renal function Add Aldactone 25 mg daily Obtain limited echocardiogram and Doppler study report to assess pulmonary hypertension Further recommendations to follow based upon clinical course Nurse practitioner note has been reviewed, I agree with documented findings and plan of care. Patient was seen and examined. Objective - Vital Signs Vital signs: Vital Signs Temp 97.7 F 02/15/25 07:36 Pulse 70 02/15/25 07:36 Resp 16 02/15/25 07:36 BP 144/75 02/15/25 07:36 Pulse Ox 98 02/15/25 07:36 FiO2 Intake & Output 02/14/25 02/15/25 02/15/25 18:59 06:59 18:59 Intake Total 250 Balance 250 Weight 95.254 kg Intake: Oral 250 Other: Voiding Method Incontinent External Catheter # Voids 3 - Labs CBC & Chem 7: 02/15/25 04:20 02/15/25 04:20 Labs: Abnormal Lab Results - Last 24 Hours (Table) 02/14/25 02/14/25 02/14/25 Range/Units 05:13 17:01 20:34 RBC (4.10-5.20) X 10*6/uL Hgb (12.0-15.0) g/dL Hct (37.2-46.3) % MCHC (32.0-37.0) g/dL RDW (11.5-14.5) % Immature Gran # (0.00-0.04) X 10*3/uL Lymphocytes # (0.90-5.00) X 10*3/uL Sodium (135-145) mmol/L Potassium (3.5-5.5) mmol/L Chloride (96-109) mmol/L Anion Gap (4.00-12.00) mmol/L BUN (9.0-27.0) mg/dL Est GFR (CKD-EPI) (>=60) Glucose (70-110) mg/dL POC Glucose (mg/dL) 121 H 284 H (70-110) mg/dL Calcium (8.7-10.3) mg/dL TSH 9.450 H (0.350-5.500) UIU/ML 02/15/25 02/15/25 02/15/25 Range/Units 04:20 04:20 06:26 RBC 3.26 L (4.10-5.20) X 10*6/uL Hgb 9.3 L (12.0-15.0) g/dL Hct 31.5 L (37.2-46.3) % MCHC 29.5 L (32.0-37.0) g/dL RDW 15.5 H (11.5-14.5) % Immature Gran # 0.05 H (0.00-0.04) X 10*3/uL Lymphocytes # 0.73 L (0.90-5.00) X 10*3/uL Sodium 153 H (135-145) mmol/L Potassium 3.3 L (3.5-5.5) mmol/L Chloride 112 H (96-109) mmol/L Anion Gap 12.40 H (4.00-12.00) mmol/L BUN 29.6 H (9.0-27.0) mg/dL Est GFR (CKD-EPI) 36 L (>=60) Glucose 147 H (70-110) mg/dL POC Glucose (mg/dL) 155 H (70-110) mg/dL Calcium 8.0 L (8.7-10.3) mg/dL TSH (0.350-5.500) UIU/ML
[2025-02-15] MEDS: FERROUS SULFATE 325 MG TAB PO SCH (09:52)
[2025-02-15] MEDS: SENNOSIDES-DOCUSATE SODIUM 1 EACH TAB PO SCH (09:52)
[2025-02-15] MEDS: CYANOCOBALAMIN 500 MCG TAB PO SCH (09:52)
[2025-02-15] MEDS: SPIRONOLACTONE 25 MG TAB PO SCH (10:03)
[2025-02-15 11:36] LABS: NT-Pro-B-Type Natriuretic Pept 2449 pg/mL (0-450)
[2025-02-15 11:36] LABS: Glucose,Whole Blood 216 mg/dL (70-110)
--- NOTE | 2025-02-15 12:58 | CA ---
Transthoracic Echo Report Name: Luisa Umaña Age: 79 Gender: F : 1945 Exam Date: 02/15/2025 07:51 Exam Location: [place] [facility] Ht (in): 65 Wt (lb): 210 Ordering Physician: Jennyfer Tellez Attending/Referring Phys: [id number], Rosalinda Direct Care Staffer Charlee Cross RDCS Procedure CPT: Indications: PASP Cardiac Hx: limited study Technical Quality: Technically difficult study Contrast 1: Definity Total Dose (mL): 2 Contrast 2: Total Dose (mL): MEASUREMENTS (Male / Female) Normal Values DOPPLER TR Peak Velocity 377.2 cm/s TR Peak Gradient 56.9 mmHg Right Ventricular Systolic Press 61.9 mmHg FINDINGS Left Ventricle Left ventricular ejection fraction is estimated at 45-50 %. No obvious regional wall motion abnormalities. Right Ventricle Severe pulmonary hypertension. Right ventricular systolic pressure estimated at 62 mm hg. Right Atrium Left Atrium Mitral Valve Aortic Valve Tricuspid Valve Pulmonic Valve Pericardium No pericardial effusion. Aorta CONCLUSIONS Technically difficult study. Definity ECHO contrast used for improved visualization of the endocardial borders (inadequate visualization of two or more contiguous segments). Mild global hypokinesis Severe pulmonary hypertension limited echo. Previewed by: Dr. Agustin Polanco MD (Electronically Signed) Final Date: 15 February 2025 12:58
[2025-02-15] MEDS: POTASSIUM CHLORIDE ER 20 MEQ TAB.ER PO STA (13:08)
--- NOTE | 2025-02-15 15:50 | P.PN ---
Subjective Progress Note Date: 02/15/25 The patient is a 79-year-old female with past medical history significant for Parkinson's disease, hypertension, hyperlipidemia, diabetes mellitus, hypothyroidism, chronic kidney disease, atrial fibrillation, heart failure, chronic oxygen dependence, frequent urinary tract infections. Patient is a poor historian. Of note, patient recently had a hospitalizations in November and again in Jan, 2025 for exacerbation of congestive heart failure. Most recent available echocardiogram from Jan, 2025 estimating a mildly reduced left ventricular ejection fraction of 45% along with severe pulmonary hypertension. Patient sent in again today from [facility] on the [place] for hypoxia and shortness of breath. Reportedly her O2 saturations were in the 30s. She was placed on a nonrebreather and gave an albuterol treatment in transit. She is seen today in the emergency department. She is a poor historian still and she has some garbled speech as well. Chest x-ray shows pulmonary vascular congestion. Currently in sinus rhythm. White count 11.2. Hemoglobin 9.8. Platelets 209. Sodium 143. Potassium 3.7. Bicarb 30. BUN 37. Creatinine 1.52. Glucose 102. proBNP 2850. Troponin 0.029. She is currently maintaining O2 saturations in the mid to upper 90s on 4 L/min per nasal cannula. She is afebrile. Hemodynamically stable. She has been initiated on Lasix 40 mg IV every 12 hours. The patient is seen today February 15, 2025 in follow-up on the regular medical floor. She is currently resting in bed. Awake and alert in no acute distress. Maintaining good O2 saturations in the 90s on 3 L/min per nasal cannula. She has been afebrile. Hemodynamically stable. White count 8.2. Hemoglobin 9.3. Platelets 219. Sodium 153. Potassium 3.3. Bicarb 29. BUN 30. Creatinine 1.5. Glucose 147. proBNP 2449. She remains on DuoNeb inhalations. Remains on IV and oral diuretics. Continued on Farxiga. Anticoagulated with Eliquis. Objective - Vital Signs Vital signs: Vital Signs Temp 98.5 F 02/15/25 13:57 Pulse 78 02/15/25 13:57 Resp 18 02/15/25 13:57 BP 146/73 02/15/25 13:57 Pulse Ox 94 L 02/15/25 13:57 FiO2 Intake & Output 02/14/25 02/15/25 02/15/25 18:59 06:59 18:59 Intake Total 250 240 Balance 250 240 Weight 95.254 kg Intake: Oral 250 240 Other: Voiding Method Incontinent Incontinent External Catheter External Catheter # Voids 3 - Exam GENERAL EXAM: Alert, poor historian, 79-year-old female, on 3 L nasal cannula, comfortable in no apparent distress. HEAD: Normocephalic. EYES: Normal reaction of pupils, equal size. NOSE: Clear with pink turbinates. THROAT: No erythema or exudates. NECK: No masses, no JVD. CHEST: No chest wall deformity. LUNGS: Equal air entry with crackles in the bilateral bases. CVS: S1 and S2 normal with no audible murmur, regular rhythm. ABDOMEN: No hepatosplenomegaly, normal bowel sounds, no guarding or rigidity. SPINE: No scoliosis or deformity SKIN: No rashes CENTRAL NERVOUS SYSTEM: No focal deficits, tone is normal in all 4 extremities. EXTREMITIES: There is 1-2+ peripheral edema. No clubbing, no cyanosis. Peripheral pulses are intact. - Labs CBC & Chem 7: 02/15/25 04:20 02/15/25 04:20 Labs: Abnormal Lab Results - Last 24 Hours (Table) 02/14/25 02/14/25 02/14/25 Range/Units 05:13 17:01 20:34 RBC (4.10-5.20) X 10*6/uL Hgb (12.0-15.0) g/dL Hct (37.2-46.3) % MCHC (32.0-37.0) g/dL RDW (11.5-14.5) % Immature Gran # (0.00-0.04) X 10*3/uL Lymphocytes # (0.90-5.00) X 10*3/uL Sodium (135-145) mmol/L Potassium (3.5-5.5) mmol/L Chloride (96-109) mmol/L Anion Gap (4.00-12.00) mmol/L BUN (9.0-27.0) mg/dL Est GFR (CKD-EPI) (>=60) Glucose (70-110) mg/dL POC Glucose (mg/dL) 121 H 284 H (70-110) mg/dL Calcium (8.7-10.3) mg/dL NT-Pro-B Natriuret Pep (0-450) pg/mL TSH 9.450 H (0.350-5.500) UIU/ML 02/15/25 02/15/25 02/15/25 Range/Units 04:20 04:20 06:26 RBC 3.26 L (4.10-5.20) X 10*6/uL Hgb 9.3 L (12.0-15.0) g/dL Hct 31.5 L (37.2-46.3) % MCHC 29.5 L (32.0-37.0) g/dL RDW 15.5 H (11.5-14.5) % Immature Gran # 0.05 H (0.00-0.04) X 10*3/uL Lymphocytes # 0.73 L (0.90-5.00) X 10*3/uL Sodium 153 H (135-145) mmol/L Potassium 3.3 L (3.5-5.5) mmol/L Chloride 112 H (96-109) mmol/L Anion Gap 12.40 H (4.00-12.00) mmol/L BUN 29.6 H (9.0-27.0) mg/dL Est GFR (CKD-EPI) 36 L (>=60) Glucose 147 H (70-110) mg/dL POC Glucose (mg/dL) 155 H (70-110) mg/dL Calcium 8.0 L (8.7-10.3) mg/dL NT-Pro-B Natriuret Pep 2449 H (0-450) pg/mL TSH (0.350-5.500) UIU/ML 02/15/25 Range/Units 11:34 RBC (4.10-5.20) X 10*6/uL Hgb (12.0-15.0) g/dL Hct (37.2-46.3) % MCHC (32.0-37.0) g/dL RDW (11.5-14.5) % Immature Gran # (0.00-0.04) X 10*3/uL Lymphocytes # (0.90-5.00) X 10*3/uL Sodium (135-145) mmol/L Potassium (3.5-5.5) mmol/L Chloride (96-109) mmol/L Anion Gap (4.00-12.00) mmol/L BUN (9.0-27.0) mg/dL Est GFR (CKD-EPI) (>=60) Glucose (70-110) mg/dL POC Glucose (mg/dL) 216 H (70-110) mg/dL Calcium (8.7-10.3) mg/dL NT-Pro-B Natriuret Pep (0-450) pg/mL TSH (0.350-5.500) UIU/ML Assessment and Plan Assessment: Acute exacerbation of congestive heart failure, with mild reduced ejection fraction at 45 to 50% Severe pulmonary hypertension Acute on chronic hypoxemic respiratory failure secondary to above, on 3 L/min nasal cannula Acute kidney injury secondary to ATN and cardiorenal syndrome Acute mild leukocytosis Hypertension Hyperlipidemia History of diabetes mellitus, insulin-dependent Chronic kidney disease stage IIIb Anemia of chronic disease History of paroxysmal atrial fibrillation, anticoagulated with Eliquis History of hypothyroidism History of rheumatoid arthritis History of frequent urinary tract infections History of right hip wound, cultures were positive for MRSA Obesity, with a BMI of 34.9 kg/m Plan: The patient was seen and evaluated Labs and medications reviewed Echocardiogram reviewed Continue diuretics Titrate the FiO2 as tolerated Continue bronchodilators Anticoagulated with Eliquis Plan to return to [facility] at discharge We will continue to follow I have personally seen and examined the patient, performed the documentation and the assessment and plan as written. Number of minutes spent on the visit: 10 Dictation was produced using [employer] dictation software. Please excuse any grammatical, word or spelling errors.
[2025-02-15 16:30] LABS: Glucose,Whole Blood 132 mg/dL (70-110)
[2025-02-15 20:37] LABS: Glucose,Whole Blood 257 mg/dL (70-110)
[2025-02-16 06:08] LABS: Glucose,Whole Blood 101 mg/dL (70-110)
--- NOTE | 2025-02-16 07:25 | XR ---
EXAMINATION TYPE: XR chest 1V portable DATE OF EXAM: 02/16/2025 5:52 AM COMPARISON: Chest radiographs from 02/14/2025. CLINICAL INDICATION: Female, 79 years old with history of CHF; TECHNIQUE: XR chest 1V portable Frontal view of the chest. FINDINGS: Lungs/Pleura: No evidence of focal consolidation or pneumothorax. Blunting of the costophrenic angles is present. Pulmonary vascularity: Pulmonary vascular congestion. Heart/mediastinum: Cardiomediastinal silhouette is enlarged. Musculoskeletal: No acute osseous pathology. IMPRESSION: Cardiomegaly, pulmonary vascular congestion and bilateral pleural effusions. Correlate with BNP for c ongestive heart failure. [facility], , 02/16/2025 7:23 AM
--- NOTE | 2025-02-16 10:28 | P.PN ---
Subjective HISTORY OF PRESENT ILLNESS: This is a 79-year-old female patient of Dr. Chaudhari with past medical history of cardiomyopathy with previous EF of 25%, paroxysmal atrial fibrillation on Eliquis, hypertension, dyslipidemia, valvular heart disease, overweight, chronic lower extremity edema, Parkinson's disease, diabetes mellitus type 2, chronic kidney disease, poor functional capacity. We have been asked to evaluate the patient for CHF. Patient had a recent hospitalization 01/2129 at which time she was treated for acute hypoxic respiratory failure with component of heart failure and pulmonary hypertension. Patient has had a follow-up visit with Dr. Chaudhari on 02/07/2025. She was to increase frequency Bumex 1 mg to twice daily for 1 week. Patient states that she came into the hospital due to worsening breathing. She denies chest pain or chest pressure. No dizziness no palpitations. She denies any cough or fever. No sputum production. Patient has chronic lower extremity edema. Blood pressure 158/89, heart rate 67, pulse ox 98% on 4 L nasal cannula. Patient has been started on IV Lasix 40 mg every 12 hours. Patient is seen today in the emergency center waiting for a bed on the [facility] floor. -EKG: Sinus rhythm with no acute ST changes. -Chest x-ray: Correlate for CHF. -Laboratory studies: WBC 11.2, hemoglobin 9.8, platelet count 209. Sodium 143, potassium 3.7, BUN 37 creatinine 1.42. Troponin 0.029. proBNP 2850. -Home cardiac medications: Amiodarone 100 mg daily, amlodipine 10 mg daily, Eliquis 5 mg twice daily, Bumex 1 mg twice daily, Farxiga 5 mg daily, ferrous sulfate 325 mg daily, Toprol XL 25 mg twice daily, simvastatin 10 mg at bedtime. Patient is also on levothyroxine. -Echocardiogram performed at [facility] on 11/29/2024 revealed EF of 45 to 50%. Severe pulmonary hypertension. 02/15 Patient seen and examined. Patient remains on IV Lasix 40 mg every 12 hours. She states she feels a little bit better and shortness of breath is a little bit better. She denies any chest pain or chest pressure. Blood pressure 144/75, heart rate in the 70s, pulse ox 90% on 3 L nasal cannula. Repeat blood work reveals hemoglobin 9.3. Sodium 153, potassium 3.3, BUN 29 creatinine 1.5. TSH 9.45 and normal free T41.1. Limited echocardiogram has been obtained and report is pending. 02/16/2025 Patient examined this morning at the bedside. Patient currently denies chest pain or pressure. She denies shortness of breath. Blood pressure is elevated this morning. Echocardiogram completed revealing ejection fraction 45 to 50%, severe pulm hypertension with RVSP 62 mmHg, mild global hypokinesis. Chest x-r ay reveals cardiomegaly, pulmonary vascular congestion and bilateral pleural effusions. PHYSICAL EXAM: VITAL SIGNS: Reviewed. GENERAL: Well-developed in no acute distress. NECK: Supple. No JVD or thyromegaly LUNGS: Respirations even and unlabored. Lungs essentially clear to auscultation bilaterally. HEART: Regular rate and rhythm. S1 and S2 heard. EXTREMITIES: Normal range of motion. No clubbing or cyanosis. Peripheral pulses intact. Minimal lower extremity edema ASSESSMENT: Acute on chronic heart failure with mildly reduced EF, 45 to 50% Cardiomyopathy, 45% unknown if ischemic or nonischemic Paroxysmal atrial fibrillation currently in sinus rhythm Hypertension Dyslipidemia Severe pulmonary hypertension Parkinson's disease Chronic lower extremity edema Chronic kidney disease Hypothyroidism PLAN: Labs from this morning are currently pending Resume home dose of amlodipine 10 mg daily for optimal blood pressure control Continue IV Lasix 40 mg every 12 hours Daily weights, accurate intake and output, and monitoring of kidney function Continue additional cardiac medications Further recommendations pending patient course Nurse practitioner note has been reviewed by physician. Signing provider agrees with the documented findings, assessment, and plan of care documented by [employer] as a scribe. Objective - Vital Signs Vital signs: Vital Signs Temp 97.4 F L 02/16/25 07:17 Pulse 101 H 02/16/25 10:02 Resp 18 02/16/25 07:17 BP 156/75 02/16/25 07:17 Pulse Ox 95 02/16/25 09:50 FiO2 Intake & Output 02/15/25 02/16/25 02/16/25 18:59 06:59 18:59 Intake Total 1080 Output Total 500 Balance 580 Intake: Oral 1080 Output: Urine 500 Other: Voiding Method Incontinent Incontinent Incontinent External Catheter External Catheter External Catheter - Labs CBC & Chem 7: 02/15/25 04:20 02/15/25 04:20 Labs: Abnormal Lab Results - Last 24 Hours (Table) 02/15/25 02/15/25 02/15/25 Range/Units 04:20 11:34 16:28 POC Glucose (mg/dL) 216 H 132 H (70-110) mg/dL NT-Pro-B Natriuret Pep 2449 H (0-450) pg/mL 02/15/25 Range/Units 20:36 POC Glucose (mg/dL) 257 H (70-110) mg/dL NT-Pro-B Natriuret Pep (0-450) pg/mL
[2025-02-16] MEDS: amLODIPine 10 MG TAB PO SCH (11:19)
[2025-02-16 11:47] LABS: Glucose,Whole Blood 227 mg/dL (70-110)
[2025-02-16 11:58] LABS: African American GFR (CKD) 32 (>60 ml/min/1.73 sqM); Anion Gap 6 mmol/L; Blood Urea Nitrogen 27 mg/dL (7-17); Calcium 8.7 mg/dL (8.4-10.2); Carbon Dioxide 34 mmol/L (22-30); Chloride 102 mmol/L (98-107); Glucose 227 mg/dL (74-99); Non-African American GFR(CKD) 28 (>60 ml/min/1.73 sqM); Potassium 3.1 mmol/L (3.5-5.1); Sodium 142 mmol/L (137-145)
[2025-02-16] MEDS ORDERED: Potassium Replacement Protocol 1 EACH MISC MISCELLANE PRN ×2 (13:05→16:51)
--- NOTE | 2025-02-16 14:04 | P.PN ---
Subjective Progress Note Date: 02/16/25 The patient is a 79-year-old female with past medical history significant for Parkinson's disease, hypertension, hyperlipidemia, diabetes mellitus, hypothyroidism, chronic kidney disease, atrial fibrillation, heart failure, chronic oxygen dependence, frequent urinary tract infections. Patient is a poor historian. Of note, patient recently had a hospitalizations in November and again in Jan, 2025 for exacerbation of congestive heart failure. Most recent available echocardiogram from Jan, 2025 estimating a mildly reduced left ventricular ejection fraction of 45% along with severe pulmonary hypertension. Patient sent in again today from [facility] on the [place] for hypoxia and shortness of breath. Reportedly her O2 saturations were in the 30s. She was placed on a nonrebreather and gave an albuterol treatment in transit. She is seen today in the emergency department. She is a poor historian still and she has some garbled speech as well. Chest x-ray shows pulmonary vascular congestion. Currently in sinus rhythm. White count 11.2. Hemoglobin 9.8. Platelets 209. Sodium 143. Potassium 3.7. Bicarb 30. BUN 37. Creatinine 1.52. Glucose 102. proBNP 2850. Troponin 0.029. She is currently maintaining O2 saturations in the mid to upper 90s on 4 L/min per nasal cannula. She is afebrile. Hemodynamically stable. She has been initiated on Lasix 40 mg IV every 12 hours. The patient is seen today February 15, 2025 in follow-up on the regular medical floor. She is currently resting in bed. Awake and alert in no acute distress. Maintaining good O2 saturations in the 90s on 3 L/min per nasal cannula. She has been afebrile. Hemodynamically stable. White count 8.2. Hemoglobin 9.3. Platelets 219. Sodium 153. Potassium 3.3. Bicarb 29. BUN 30. Creatinine 1.5. Glucose 147. proBNP 2449. She remains on DuoNeb inhalations. Remains on IV and oral diuretics. Continued on Farxiga. Anticoagulated with Eliquis. The patient is seen today February 16, 2025 in follow-up on the regular medical floor. She is currently resting in bed. Awake and alert in no acute distress. Maintaining O2 saturations in the 90s on room air oxygen. Afebrile. Hemodynamically stable. Sodium 142. Potassium 3.1. Bicarb 34. BUN 27. Creatinine 1.76. Glucose 227. She remains on DuoNeb and elations. IV diuretics. Anticoagulated with Eliquis. Objective - Vital Signs Vital signs: Vital Signs Temp 98.7 F 02/16/25 13:44 Pulse 77 02/16/25 13:44 Resp 17 02/16/25 13:44 BP 166/71 02/16/25 13:44 Pulse Ox 97 02/16/25 13:44 FiO2 Intake & Output 02/15/25 02/16/25 02/16/25 18:59 06:59 18:59 Intake Total 1080 Output Total 500 Balance 580 Intake: Oral 1080 Output: Urine 500 Other: Voiding Method Incontinent Incontinent Incontinent External Catheter External Catheter External Catheter # Bowel Movements 3 - Exam GENERAL EXAM: Alert, poor historian, 79-year-old female, on room air oxygen, comfortable in no apparent distress. HEAD: Normocephalic. EYES: Normal reaction of pupils, equal size. NOSE: Clear with pink turbinates. THROAT: No erythema or exudates. NECK: No masses, no JVD. CHEST: No chest wall deformity. LUNGS: Equal air entry with crackles in the bilateral bases. CVS: S1 and S2 normal with no audible murmur, regular rhythm. ABDOMEN: No hepatosplenomegaly, normal bowel sounds, no guarding or rigidity. SPINE: No scoliosis or deformity SKIN: No rashes CENTRAL NERVOUS SYSTEM: No focal deficits, tone is normal in all 4 extremities. EXTREMITIES: There is 1-2+ peripheral edema. No clubbing, no cyanosis. Peripheral pulses are intact. - Labs CBC & Chem 7: 02/15/25 04:20 02/16/25 10:36 Labs: Abnormal Lab Results - Last 24 Hours (Table) 02/15/25 02/15/25 02/16/25 Range/Units 16:28 20:36 10:36 Potassium 3.1 L (3.5-5.1) mmol/L Carbon Dioxide 34 H (22-30) mmol/L BUN 27 H (7-17) mg/dL Creatinine 1.76 H (0.52-1.04) mg/dL Glucose 227 H (74-99) mg/dL POC Glucose (mg/dL) 132 H 257 H (70-110) mg/dL 02/16/25 Range/Units 11:43 Potassium (3.5-5.1) mmol/L Carbon Dioxide (22-30) mmol/L BUN (7-17) mg/dL Creatinine (0.52-1.04) mg/dL Glucose (74-99) mg/dL POC Glucose (mg/dL) 227 H (70-110) mg/dL Assessment and Plan Assessment: Acute exacerbation of congestive heart failure, with mild reduced ejection fraction at 45 to 50% Severe pulmonary hypertension Acute on chronic hypoxemic respiratory failure secondary to above, currently on room air oxygen Acute kidney injury secondary to ATN and cardiorenal syndrome Acute mild leukocytosis Hypertension Hyperlipidemia History of diabetes mellitus, insulin-dependent Chronic kidney disease stage IIIb Anemia of chronic disease History of paroxysmal atrial fibrillation, anticoagulated with Eliquis History of hypothyroidism History of rheumatoid arthritis History of frequent urinary tract infections History of right hip wound, cultures were positive for MRSA Obesity, with a BMI of 34.9 kg/m Plan: The patient was seen and evaluated Labs and medications reviewed Continue diuretics Titrate the FiO2 as tolerated Continue bronchodilators Anticoagulated with Eliquis Plan to return to [facility] at discharge We will continue to follow I have personally seen and examined the patient, performed the documentation and the assessment and plan as written. Number of minutes spent on the visit: 10 Dictation was produced using [employer] dictation software. Please excuse any grammatical, word or spelling errors.
[2025-02-16] MEDS: POTASSIUM BICARBONATE/CIT AC 20 MEQ TABLET.EFF NG-TUBE SCH ×2 (14:25→17:45)
[2025-02-16 16:23] LABS: Glucose,Whole Blood 203 mg/dL (70-110)
--- NOTE | 2025-02-16 18:28 | P.PN ---
Subjective This is a pleasant 79 years old female from [facility] who was sent because of dyspnea Patient was found to be in acute CHF with ejection fraction 45 to 50% based on recent echocardiogram done about 3 months ago. Also she has evidence of severe pulmonary hypertension and history of paroxysmal atrial fibrillation Eliquis This Morning She Was Still Looks Tired Lying in Bed Awake Alert She Knows She Is in the [facility] Because of Her Breathing Problem Denies Any Abdominal Pain or Diarrhea or Vomiting. No Specific Urinary Complaints. She Still Feels Short of Breath. She States She Is Uses Oxygen at Home/Long Term but She Is Not Sure How Much She Thinks It Might Be True for Her 3 L. Vital Stable Today She Is Satting 93% on Room Air Heart Rate Is 68-75. WBC 11.1 Hemoglobin 9.8, Creatinine 1.5 with Baseline 1.6-2.0. proBNP Is Elevated to 850. Troponin Is -0.029. TSH Is Elevated 9.4. Chest X-Ray Showing CHF. EKG Showing Sinus Rhythm at 71. Echocardiogram from 11/2024 Showed Ejection Fraction of 45 to 50% 02/16 Patient feels little better, she is improving slowly and gradually She generally weak Repeat chest x-ray showing cardiomegaly with pulmonary vascular congestion and bilateral pleural effusion Because of this patient kept on IV Lasix despite creatinine went up 1.5 up to 1.7. Hemoglobin is stable 9.8 and 9.3 today She is complaining from right knee pain and x-rays ordered Objective - Vital Signs Vital signs: Vital Signs Temp 97.4 F L 02/16/25 07:17 Pulse 101 H 02/16/25 10:02 Resp 18 02/16/25 07:17 BP 156/75 02/16/25 07:17 Pulse Ox 95 02/16/25 09:50 FiO2 Intake & Output 02/15/25 02/16/25 02/16/25 18:59 06:59 18:59 Intake Total 1080 Output Total 500 Balance 580 Intake: Oral 1080 Output: Urine 500 Other: Voiding Method Incontinent Incontinent Incontinent External Catheter External Catheter External Catheter - Exam -GENERAL: The patient is alert and oriented x3, not in any acute distress. Well developed, well nourished. Generally tired and weak, obese HEENT: Pupils are round and equally reacting to light. EOMI. No scleral icterus. No conjunctival pallor. Normocephalic, atraumatic. No pharyngeal erythema. No thyromegaly. CARDIOVASCULAR: S1 and S2 present. No murmurs, rubs, or gallops. -PULMONARY: Chest is clear to auscultation, no wheezing , bilateral basal crackles. ABDOMEN: Soft, nontender, nondistended, normoactive bowel sounds. No palpable organomegaly. MUSCULOSKELETAL: No joint swelling or deformity. -EXTREMITIES: No cyanosis, clubbing,. Bilateral pitting leg edema. NEUROLOGICAL: Gross neurological examination did not reveal any focal deficits. SKIN: No rashes. no petechiae. - Labs CBC & Chem 7: 02/15/25 04:20 02/16/25 15:54 Labs: Abnormal Lab Results - Last 24 Hours (Table) 02/15/25 02/15/25 02/15/25 Range/Units 04:20 11:34 16:28 POC Glucose (mg/dL) 216 H 132 H (70-110) mg/dL NT-Pro-B Natriuret Pep 2449 H (0-450) pg/mL 02/15/25 Range/Units 20:36 POC Glucose (mg/dL) 257 H (70-110) mg/dL NT-Pro-B Natriuret Pep (0-450) pg/mL Assessment and Plan Assessment: Acute CHF with ejection fraction 45 to 50% Severe pulmonary hypertension Paroxysmal atrial fibrillation Parkinson disease History of anxiety Chronic kidney disease stage III Plan: Continue with IV Lasix Continue with Eliquis Cardiology team consult Pulmonary team consult Continue with oxygen therapy and bronchodilator Labs and medication were reviewed.. Continue same treatment. Continue with symptomatic treatment. Resume home medication. Monitor labs and vitals. DVT and GI prophylaxis. Further recommendations as per clinical course of the patient DVT prophylaxis: S Eliquis GI Prophylaxis: Pepcid from [facility] Prognosis is guarded
--- NOTE | 2025-02-16 18:56 | XR ---
EXAMINATION TYPE: XR knee limited RT DATE OF EXAM: 02/16/2025 6:36 PM COMPARISON: 10/22/2021 CLINICAL INDICATION: Female, 79 years old with history of pain; PHH, pain TECHNIQUE: XR knee limited RT 2 views submitted. FINDINGS: Extensive surgical changes to the right femur with fixation hardware in place. Total right knee arthroplasty changes are also present. No evidence of acute fracture. Hardware appears intact. Atherosclerosis of the arterial vasculature. IMPRESSION: Postsurgical changes of the knee and femur No evidence for fracture. Hardware appears intact. [facility], , 02/16/2025 6:53 PM
[2025-02-16] MEDS: FAMOTIDINE 20 MG/2 ML VIAL IV SCH (21:01)
[2025-02-16 21:02] LABS: Glucose,Whole Blood 193 mg/dL (70-110)
[2025-02-17 06:53] LABS: Glucose,Whole Blood 105 mg/dL (70-110)
[2025-02-17 09:37] LABS: BUN/Creat Ratio 14.11 Ratio (12.00-20.00); Blood Urea Nitrogen 25.4 mg/dL (9.0-27.0); Carbon Dioxide 30.6 mmol/L (21.6-31.8); Chloride 104 mmol/L (96-109); Glucose 146 mg/dL (70-110); Potassium 4.4 mmol/L (3.5-5.5); Sodium 144 mmol/L (135-145)
[2025-02-17] MEDS: FUROSEMIDE 10 MG/ML 4 ML VIAL IV SCH (10:25)
[2025-02-17] MEDS: hydrALAZINE HCL 25 MG TAB PO SCH (10:35)
--- NOTE | 2025-02-17 12:07 | P.PN ---
Subjective Progress Note Date: 02/17/25 The patient is a 79-year-old female with past medical history significant for Parkinson's disease, hypertension, hyperlipidemia, diabetes mellitus, hypothyroidism, chronic kidney disease, atrial fibrillation, heart failure, chronic oxygen dependence, frequent urinary tract infections. Patient is a poor historian. Of note, patient recently had a hospitalizations in November and again in Jan, 2025 for exacerbation of congestive heart failure. Most recent available echocardiogram from Jan, 2025 estimating a mildly reduced left ventricular ejection fraction of 45% along with severe pulmonary hypertension. Patient sent in again today from [facility] on the [place] for hypoxia and shortness of breath. Reportedly her O2 saturations were in the 30s. She was placed on a nonrebreather and gave an albuterol treatment in transit. She is seen today in the emergency department. She is a poor historian still and she has some garbled speech as well. Chest x-ray shows pulmonary vascular congestion. Currently in sinus rhythm. White count 11.2. Hemoglobin 9.8. Platelets 209. Sodium 143. Potassium 3.7. Bicarb 30. BUN 37. Creatinine 1.52. Glucose 102. proBNP 2850. Troponin 0.029. She is currently maintaining O2 saturations in the mid to upper 90s on 4 L/min per nasal cannula. She is afebrile. Hemodynamically stable. She has been initiated on Lasix 40 mg IV every 12 hours. The patient is seen today February 15, 2025 in follow-up on the regular medical floor. She is currently resting in bed. Awake and alert in no acute distress. Maintaining good O2 saturations in the 90s on 3 L/min per nasal cannula. She has been afebrile. Hemodynamically stable. White count 8.2. Hemoglobin 9.3. Platelets 219. Sodium 153. Potassium 3.3. Bicarb 29. BUN 30. Creatinine 1.5. Glucose 147. proBNP 2449. She remains on DuoNeb inhalations. Remains on IV and oral diuretics. Continued on Farxiga. Anticoagulated with Eliquis. The patient is seen today February 16, 2025 in follow-up on the regular medical floor. She is currently resting in bed. Awake and alert in no acute distress. Maintaining O2 saturations in the 90s on room air oxygen. Afebrile. Hemodynamically stable. Sodium 142. Potassium 3.1. Bicarb 34. BUN 27. Creatinine 1.76. Glucose 227. She remains on DuoNeb and elations. IV diuretics. Anticoagulated with Eliquis. The patient is seen today February 17, 2025 in follow-up on the regular medical floor. She is resting in bed. She is more awake and alert today. More conversation. She denies any worsening shortness of breath, cough or congestion. She is maintaining good O2 saturations in the 90s on 4 L/min per nasal cannula. She is afebrile. Hemodynamically stable. Sodium 144. Potassium 4.4. Bicarb 31. BUN 25. Creatinine 1.8. Glucose 146. She remains on DuoNeb inhalations. Anticoagulated with Eliquis. Continued on her home medications. Remains on IV and oral diuretics. Objective - Vital Signs Vital signs: Vital Signs Temp 98.2 F 02/17/25 08:00 Pulse 67 02/17/25 10:08 Resp 15 02/17/25 08:00 BP 148/76 02/17/25 08:00 Pulse Ox 97 02/17/25 09:57 FiO2 Intake & Output 02/16/25 02/17/25 02/17/25 18:59 06:59 18:59 Intake Total 1860 Output Total 1150 450 Balance 710 -450 Intake: Oral 1860 Output: Urine 1150 450 Other: Voiding Method Incontinent Incontinent Incontinent External Catheter External Catheter External Catheter # Voids 3 # Bowel Movements 3 1 - Exam GENERAL EXAM: Alert, more vocal today, 79-year-old female, on room air oxygen, in no apparent distress. HEAD: Normocephalic. EYES: Normal reaction of pupils, equal size. NOSE: Clear with pink turbinates. THROAT: No erythema or exudates. NECK: No masses, no JVD. CHEST: No chest wall deformity. LUNGS: Equal air entry with crackles in the bilateral bases. CVS: S1 and S2 normal with no audible murmur, regular rhythm. ABDOMEN: No hepatosplenomegaly, normal bowel sounds, no guarding or rigidity. SPINE: No scoliosis or deformity SKIN: No rashes CENTRAL NERVOUS SYSTEM: No focal deficits, tone is normal in all 4 extremities. EXTREMITIES: There is 1-2+ peripheral edema. No clubbing, no cyanosis. Peripheral pulses are intact. - Labs CBC & Chem 7: 02/15/25 04:20 02/17/25 03:25 Labs: Abnormal Lab Results - Last 24 Hours (Table) 02/16/25 02/16/25 02/17/25 Range/Units 16:21 21:01 03:25 Creatinine 1.8 H (0.6-1.5) mg/dL Est GFR (CKD-EPI) 29 L (>=60) Glucose 146 H (70-110) mg/dL POC Glucose (mg/dL) 203 H 193 H (70-110) mg/dL Calcium 8.0 L (8.7-10.3) mg/dL Assessment and Plan Assessment: Acute exacerbation of congestive heart failure, with mild reduced ejection fraction at 45 to 50% Severe pulmonary hypertension Acute on chronic hypoxemic respiratory failure secondary to above, currently on room air oxygen Acute kidney injury secondary to ATN and cardiorenal syndrome Acute mild leukocytosis Hypertension Hyperlipidemia History of diabetes mellitus, insulin-dependent Chronic kidney disease stage IIIb Anemia of chronic disease History of paroxysmal atrial fibrillation, anticoagulated with Eliquis History of hypothyroidism History of rheumatoid arthritis History of frequent urinary tract infections History of right hip wound, cultures were positive for MRSA Obesity, with a BMI of 34.9 kg/m Plan: The patient was seen and evaluated Labs and medications reviewed Lasix decreased to 40 mg daily Titrate the FiO2 as tolerated Continue bronchodilators Anticoagulated with Eliquis Continued on her home medication Plan to return to [facility] at discharge This patient was seen independently by the pulmonary nurse practitioner addressing pulmonary issues I have personally seen and examined the patient, performed the documentation and the assessment and plan as written. Number of minutes spent on the visit: 25 Dictation was produced using [employer] dictation software. Please excuse any grammatical, word or spelling errors.
[2025-02-17 12:35] LABS: Glucose,Whole Blood 132 mg/dL (70-110)
--- NOTE | 2025-02-17 12:48 | P.PN ---
Subjective Progress Note Date: 02/17/25 HISTORY OF PRESENT ILLNESS: This is a 79-year-old female patient of Dr. Chaudhari with past medical history of cardiomyopathy with previous EF of 25%, paroxysmal atrial fibrillation on Eliquis, hypertension, dyslipidemia, valvular heart disease, overweight, chronic lower extremity edema, Parkinson's disease, diabetes mellitus type 2, chronic kidney disease, poor functional capacity. We have been asked to evaluate the patient for CHF. Patient had a recent hospitalization 01/2129 at which time she was treated for acute hypoxic respiratory failure with component of heart failure and pulmonary hypertension. Patient has had a follow-up visit with Dr. Chaudhari on 02/07/2025. She was to increase frequency Bumex 1 mg to twice daily for 1 week. Patient states that she came into the hospital due to worsening breathing. She denies chest pain or chest pressure. No dizziness no palpitations. She denies any cough or fever. No sputum production. Patient has chronic lower extremity edema. Blood pressure 158/89, heart rate 67, pulse ox 98% on 4 L nasal cannula. Patient has been started on IV Lasix 40 mg every 12 hours. Patient is seen today in the emergency center waiting for a bed on the [facility] floor. -EKG: Sinus rhythm with no acute ST changes. -Chest x-ray: Correlate for CHF. -Laboratory studies: WBC 11.2, hemoglobin 9.8, platelet count 209. Sodium 143, potassium 3.7, BUN 37 creatinine 1.42. Troponin 0.029. proBNP 2850. -Home cardiac medications: Amiodarone 100 mg daily, amlodipine 10 mg daily, Eliquis 5 mg twice daily, Bumex 1 mg twice daily, Farxiga 5 mg daily, ferrous sulfate 325 mg daily, Toprol XL 25 mg twice daily, simvastatin 10 mg at bedtime. Patient is also on levothyroxine. -Echocardiogram performed at [facility] on 11/29/2024 revealed EF of 45 to 50%. Severe pulmonary hypertension. 02/15 Patient seen and examined. Patient remains on IV Lasix 40 mg every 12 hours. She states she feels a little bit better and shortness of breath is a little bit better. She denies any chest pain or chest pressure. Blood pressure 144/75, heart rate in the 70s, pulse ox 90% on 3 L nasal cannula. Repeat blood work reveals hemoglobin 9.3. Sodium 153, potassium 3.3, BUN 29 creatinine 1.5. TSH 9.45 and normal free T41.1. Limited echocardiogram has been obtained and report is pending. 02/16/2025 Patient examined this morning at the bedside. Patient currently denies chest pain or pressure. She denies shortness of breath. Blood pressure is elevated this morning. Echocardiogram completed revealing ejection fraction 45 to 50%, severe pulm hypertension with RVSP 62 mmHg, mild global hypokinesis. Chest x- ray reveals cardiomegaly, pulmonary vascular congestion and bilateral pleural effusions. 02/17/2025 Patient seen and examined. She still have some lower extremity edema but improving. Her blood pressure readings remain elevated. Yesterday amlodipine was resumed. She remains on IV Lasix 40 mg that has been decreased frequency to daily by pulmonary medicine blood pressure 148/76, heart rate in the 60s, pulse ox 97% on 3 L nasal cannula. Repeat blood work reveals BUN 25 creatinine 1.8. PHYSICAL EXAM: VITAL SIGNS: Reviewed. GENERAL: Well-developed in no acute distress. NECK: Supple. No JVD or thyromegaly LUNGS: Respirations even and unlabored. Lungs essentially clear to auscultation bilaterally. HEART: Regular rate and rhythm. S1 and S2 heard. EXTREMITIES: No clubbing or cyanosis. Peripheral pulses intact. Minimal lower extremity edema ASSESSMENT: Acute on chronic heart failure with mildly reduced EF, 45 to 50% Cardiomyopathy, 45% unknown if ischemic or nonischemic Paroxysmal atrial fibrillation currently in sinus rhythm Hypertension Dyslipidemia Severe pulmonary hypertension Parkinson's disease Chronic lower extremity edema Chronic kidney disease Hypothyroidism PLAN: Continue current home cardiac medications Continue IV Lasix 40 mg daily Daily weights, accurate intake and output, and monitoring of kidney function Add hydralazine 25 mg 3 times daily Monitor blood pressure Further recommendations pending patient course Nurse practitioner note has been reviewed by physician. Signing provider agrees with the documented findings, assessment, and plan of care documented by PROJECT COORDINATOR RN as a scribe. Objective - Vital Signs Vital signs: Vital Signs Temp 98.2 F 02/17/25 08:00 Pulse 67 02/17/25 10:08 Resp 15 02/17/25 08:00 BP 148/76 02/17/25 08:00 Pulse Ox 97 02/17/25 09:57 FiO2 Intake & Output 06/02/17/25 02/17/25 18:59 06:59 18:59 Intake Total 1860 Output Total 1150 Balance 710 Intake: Oral 1860 Output: Urine 1150 Other: Voiding Method Incontinent Incontinent External Catheter External Catheter # Voids 3 # Bowel Movements 3 - Labs CBC & Chem 7: 02/15/25 04:20 02/17/25 03:25 Labs: Abnormal Lab Results - Last 24 Hours (Table) 02/16/25 02/16/25 02/16/25 Range/Units 10:36 11:43 16:21 Potassium 3.1 L (3.5-5.1) mmol/L Carbon Dioxide 34 H (22-30) mmol/L BUN 27 H (7-17) mg/dL Creatinine 1.76 H (0.52-1.04) mg/dL Est GFR (CKD-EPI) (>=60) Glucose 227 H (74-99) mg/dL POC Glucose (mg/dL) 227 H 203 H (70-110) mg/dL Calcium (8.7-10.3) mg/dL 02/16/25 02/17/25 Range/Units 21:01 03:25 Potassium (3.5-5.1) mmol/L Carbon Dioxide (22-30) mmol/L BUN (7-17) mg/dL Creatinine 1.8 H (0.52-1.04) mg/dL Est GFR (CKD-EPI) 29 L (>=60) Glucose 146 H (74-99) mg/dL POC Glucose (mg/dL) 193 H (70-110) mg/dL Calcium 8.0 L (8.7-10.3) mg/dL
[2025-02-17 16:52] LABS: Glucose,Whole Blood 218 mg/dL (70-110)
[2025-02-17] MEDS: ceFAZolin 2 GM in DEXTROSE 5% IN WATER 50 ML IVPB SCH (17:18)
[2025-02-17 20:42] LABS: Glucose,Whole Blood 242 mg/dL (70-110)
--- NOTE | 2025-02-17 22:48 | P.CONS ---
History of Present Illness - Reason for Consult Consult date: 02/17/25 Right leg cellulitis Requesting physician: Aron E Sheet - Chief Complaint Shortness of breath and leg swelling x days - History of Present Illness Patient is a 79-year-old female with a past medical history significant for heart failure diabetes mellitus hypertension hyperlipidemia pneumonia rheumatoid arthritis presenting to the hospital 3 days ago for evalu ation of increasing shortness of breath and pallor the patient was noted to be hypoxic patient was placed on nonrebreather given albuterol and subsequent was brought to the hospital patient has been diagnosed with congestive heart failure and has been in the care of pulmonary and cardiology services on presentation to the hospital the patient was afebrile and no fever have been called subsequently patient was not tachycardic or hypotensive she was mildly hypoxic currently on 2 L nasal cannula oxygen patient did have elevated white count of 11.26 on admission no CBC has been done today or yesterday patient did have mild elevated creatinine 1.8 liver enzymes are normal NT-proBNP was 2449 patient did have a chest x-ray on admission clinical correlation for congestive heart failure patient was noticed to have erythema to the right lower extremity concerning for cellulitis prompting this consultation patient denies significant pain to the right lower extremity denies any open wound or any drainage Review of Systems Positive point and negatives has been mentioned in the HPI, complete review of systems was performed and all other systems are negative Past Medical History Past Medical History: Heart Failure, Diabetes Mellitus, Hyperlipidemia, Hypertension, Pneumonia, Rheumatoid Arthritis (RA) Additional Past Medical History / Comment(s): tremors, renal lithiasis, hemorrhoids(sx done), "has had problems w/low magnesium.anemia. per spouse pt had past cancer "uterine or cervical-had hysterectomy". it was previously charted that pt had hx of ra and cfh spouse not able to verify this, Parkinsons History of Any Multi-Drug Resistant Organisms: ESBL, MRSA Year Discovered:: 01/13/25-MRSA; 09/15/23-ESBL MDRO Source:: MRSA-rt hip; ESBL-URINE Past Surgical History: Appendectomy, Hysterectomy, Orthopedic Surgery, Tonsillectomy Additional Past Surgical History / Comment(s): rt total knee repalcement, cataracts, hemmorroidectomy, colonoscopy Past Anesthesia/Blood Transfusion Reactions: No Reported Reaction Additional Past Anesthesia/Blood Transfusion Reaction / Comm: per psouse-pt never receieved any blood Past Psychological History: No Psychological Hx Reported Additional Psychological History / Comment(s): and was living in the family home under the care of the and family members. [employer] nonsmoker no alcohol use. No experience. No international travel. No animal exposures. Has been to multiple [facility]'s Smoking Status: Never smoker Past Alcohol Use History: None Reported Past Drug Use History: None Reported - Past Family History Mother Family Medical History: Diabetes Mellitus Father Additional Family Medical History / Comment(s): brain anuerysm Medications and Allergies Home Medications Medication Instructions Recorded Confirmed Type Primidone 50 mg PO TID-W/MEALS@,12,07/23/22 02/14/25 History busPIRone HCl [Buspar] 5 mg PO BID 07/23/22 02/14/25 History Carbidopa-Levodopa 25-100 mg 1 tab PO TID-W/MEALS@,,09/14/23 02/14/25 History [Sinemet 25-100 mg] Escitalopram Oxalate [Lexapro] 10 mg PO HS 09/14/23 02/14/25 History Levothyroxine Sodium [Synthroid] 75 mcg PO DAILY@0600 02/27/24 02/14/25 History Simethicone 180 mg PO ACHS PRN 02/27/24 02/14/25 History polyethylene glycoL 3350 [Miralax] 17 gm PO DAILY PRN 02/27/24 02/14/25 History Acetaminophen Tab [Tylenol] 500 mg PO Q6H PRN 06/03/24 02/14/25 History Amiodarone [Cordarone] 100 mg PO DAILY 06/03/24 02/14/25 History Famotidine [Pepcid] 20 mg PO DAILY@0600 11/29/24 02/14/25 History Insulin Glargine,Hum.rec.anlog 36 units SQ DAILY@0700 11/29/24 02/14/25 History [Lantus Solostar Pen] Simvastatin [Zocor] 10 mg PO HS 11/29/24 02/14/25 History amLODIPine [Norvasc] 10 mg PO DAILY 11/29/24 02/14/25 History Metoprolol Succinate (ER) [Toprol 25 mg PO BID tab 12/07/24 02/14/25 Rx XL] Cyanocobalamin [Vitamin B-12] 500 mcg PO DAILY 01/23/25 02/14/25 History Ferrous Sulfate [Iron (65 MG 325 mg PO DAILY 01/23/25 02/14/25 History Elemental)] Ipratropium-Albuterol Nebulize 3 ml INHALATION RT-QID 01/23/25 02/14/25 History [Duoneb 0.5 mg-3 mg/3 ml Soln] Sennosides/Docusate Sodium 1 tab PO DAILY 01/23/25 02/14/25 History [Senna-S 8.6-50 mg Tablet] Apixaban [Eliquis] 5 mg PO BID tab 01/31/25 02/14/25 Rx Dapagliflozin Propanediol [Farxiga] 5 mg PO DAILY tab 01/31/25 02/14/25 Rx Bethanechol Chloride 50 mg PO TID@0900,1300,2100 02/14/25 02/14/25 History Bumetanide [BUMEX] See Taper PO DIRECTED 02/14/25 02/14/25 History INSULIN LISPRO (HumaLOG) [HumaLOG] 4 units SQ BID@1200,1700 02/14/25 02/14/25 History INSULIN LISPRO (HumaLOG) [HumaLOG] See Protocol SQ TID-W/MEALS 02/14/25 02/14/25 History Allergies Allergy/AdvReac Type Severity Reaction Status Date / Time gabapentin AdvReac Hallucinati Verified 02/14/25 09:33 ons Physical Exam Vitals: Vital Signs Temp Pulse Pulse Resp BP Pulse Ox 02/17/25 14:00 98.6 F 72 17 144/70 95 02/17/25 13:06 67 02/17/25 12:55 64 02/17/25 10:08 67 02/17/25 09:57 65 97 02/17/25 08:00 98.2 F 62 15 148/76 98 02/17/25 01:20 97.9 F 72 15 152/76 98 02/16/25 20:32 82 02/16/25 20:22 80 02/16/25 19:53 98.6 F 77 16 145/57 93 L 02/16/25 16:48 77 02/16/25 16:38 79 Intake and Output 02/17/25 02/17/25 02/17/25 06:59 14:59 22:59 Intake Total 1620 Output Total 950 450 Balance 670 -450 Intake: Oral 1620 Output: Urine 950 450 Other: Voiding Method Incontinent External Catheter # Bowel Movements 1 GENERAL DESCRIPTION: Elderly female lying in bed, no distress. No tachypnea or accessory muscle of respiration use. HEENT: Shows Pallor , no scleral icterus. Oral mucous membrane is dry. NECK: Trachea central, no thyromegaly. LUNGS: Unlabored breathing. Clear to auscultation anteriorly. No wheeze or crackle. HEART: S1, S2, regular rate and rhythm. No loud murmur ABDOMEN: Soft, no tenderness , guarding or rigidity, no organomegaly EXTREMITIES: Bilateral lower extremity swelling patient did have area of erythema and warmth to the right lower extremity with no skin breakdown or any drainage SKIN: No rash, no masses palpable. NEUROLOGICAL: The patient is awake, alert, mood and affect normal. Results CBC & Chem 7: 02/15/25 04:20 02/17/25 03:25 Labs: Abnormal Lab Results - Last 24 Hours (Table) 02/16/25 02/16/25 02/17/25 Range/Units 16:21 21:01 03:25 Creatinine 1.8 H (0.6-1.5) mg/dL Est GFR (CKD-EPI) 29 L (>=60) Glucose 146 H (70-110) mg/dL POC Glucose (mg/dL) 203 H 193 H (70-110) mg/dL Calcium 8.0 L (8.7-10.3) mg/dL 02/17/25 Range/Units 12:33 Creatinine (0.6-1.5) mg/dL Est GFR (CKD-EPI) (>=60) Glucose (70-110) mg/dL POC Glucose (mg/dL) 132 H (70-110) mg/dL Calcium (8.7-10.3) mg/dL Assessment and Plan (1) Cellulitis of right leg Current Visit: Yes Status: Acute Code(s): L03.115 - CELLULITIS OF RIGHT LOWER LIMB SNOMED Code(s): 02337645342769063 Plan: 1patient with increasing swelling redness of right lower extremity in this patient admitted to the hospital with congestive heart failure with evidence of fluid overload with an area of cellulitis of the right leg concerning for possible streptococcal cellulitis. 2area of the redness has been marked. 3patient will be treated with cefazolin and will see clinical response. We will follow on clinical condition and cultures to further adjust medication if needed Thank you for this consultation we will follow the patient along with you Dictation was produced using [employer] dictation software. please excuse any grammatical, word or spelling errors. Time with Patient: Greater than 30
--- NOTE | 2025-02-18 00:32 | P.PN ---
Subjective This is a pleasant 79 years old female from [facility] who was sent because of dyspnea Patient was found to be in acute CHF with ejection fraction 45 to 50% based on recent echocardiogram done about 3 months ago. Also she has evidence of severe pulmonary hypertension and history of paroxysmal atrial fibrillation Eliquis This Morning She Was Still Looks Tired Lying in Bed Awake Alert She Knows She Is in the [facility] Because of Her Breathing Problem Denies Any Abdominal Pain or Diarrhea or Vomiting. No Specific Urinary Complaints. She Still Feels Short of Breath. She States She Is Uses Oxygen at Home/Senior Care but She Is Not Sure How Much She Thinks It Might Be True for Her 3 L. Vital Stable Today She Is Satting 93% on Room Air Heart Rate Is 68-75. WBC 11.1 Hemoglobin 9.8, Creatinine 1.5 with Baseline 1.6-2.0. proBNP Is Elevated to 850. Troponin Is -0.029. TSH Is Elevated 9.4. Chest X-Ray Showing CHF. EKG Showing Sinus Rhythm at 71. Echocardiogram from 11/2024 Showed Ejection Fraction of 45 to 50% 02/16 Patient feels little better, she is improving slowly and gradually She generally weak Repeat chest x-ray showing cardiomegaly with pulmonary vascular congestion and bilateral pleural effusion Because of this patient kept on IV Lasix despite creatinine went up 1.5 up to 1.7. Hemoglobin is stable 9.8 and 9.3 today She is complaining from right knee pain and x-rays ordered 02/17 Patient is more awake, she has questions and follows command as she is with it but she is extremely weak lethargic and drowsy. She has been treated for CHF, she is improving from the side Right lower extremity is mildly Swollen with small scratch on the side, suspicious for cellulitis, including the distal right leg. No purulent di scharge. Infectious disease consult was requested, patient was started on cefazolin. Patient remains on Lasix. Creatinine 1.8 today Objective - Vital Signs Vital signs: Vital Signs Temp 97.9 F 02/17/25 20:40 Pulse 77 02/17/25 20:40 Resp 16 02/17/25 20:40 BP 151/66 02/17/25 20:40 Pulse Ox 94 L 02/17/25 20:40 FiO2 Intake & Output 02/17/25 02/17/25 02/18/25 06:59 18:59 06:59 Intake Total 1860 180 Output Total 1150 1750 Balance 710 -1750 180 Intake: Oral 1860 180 Output: Urine 1150 1750 Other: Voiding Method Incontinent Incontinent External Catheter External Catheter # Voids 2 # Bowel Movements 3 - Exam -GENERAL: The patient is alert and oriented x3, not in any acute distress. Well developed, well nourished. Generally tired and weak, obese HEENT: Pupils are round and equally reacting to light. EOMI. No scleral icterus. No conjunctival pallor. Normocephalic, atraumatic. No pharyngeal erythema. No thyromegaly. CARDIOVASCULAR: S1 and S2 present. No murmurs, rubs, or gallops. -PULMONARY: Chest is clear to auscultation, no wheezing , bilateral basal crackles. ABDOMEN: Soft, nontender, nondistended, normoactive bowel sounds. No palpable organomegaly. MUSCULOSKELETAL: No joint swelling or deformity. -EXTREMITIES: No cyanosis, clubbing,. Bilateral pitting leg edema. NEUROLOGICAL: Gross neurological examination did not reveal any focal deficits. SKIN: No rashes. no petechiae. - Labs CBC & Chem 7: 02/15/25 04:20 02/17/25 03:25 Labs: Abnormal Lab Results - Last 24 Hours (Table) 02/17/25 02/17/25 02/17/25 Range/Units 03:25 12:33 16:49 Creatinine 1.8 H (0.6-1.5) mg/dL Est GFR (CKD-EPI) 29 L (>=60) Glucose 146 H (70-110) mg/dL POC Glucose (mg/dL) 132 H 218 H (70-110) mg/dL Calcium 8.0 L (8.7-10.3) mg/dL 02/17/25 Range/Units 20:41 Creatinine (0.6-1.5) mg/dL Est GFR (CKD-EPI) (>=60) Glucose (70-110) mg/dL POC Glucose (mg/dL) 242 H (70-110) mg/dL Calcium (8.7-10.3) mg/dL Assessment and Plan Assessment: Right lower extremity cellulitis Metabolic encephalopathy Acute CHF with ejection fraction 45 to 50% Severe pulmonary hypertension Paroxysmal atrial fibrillation Parkinson disease History of anxiety Chronic kidney disease stage III Plan: Continue with IV Lasix Started on cefazolin. ID team consult Continue with Eliquis Cardiology team consult Pulmonary team consult Continue with oxygen therapy and bronchodilator Labs and medication were reviewed.. Continue same treatment. Continue with symptomatic treatment. Resume home medication. Monitor labs and vitals. DVT and GI prophylaxis. Further recommendations as per clinical course of the patient DVT prophylaxis: [facility] [place] Prophylaxis: Pepcid from [facility] Prognosis is guarded
[2025-02-18 06:31] LABS: Glucose,Whole Blood 96 mg/dL (70-110)
[2025-02-18 08:25] LABS: BUN/Creat Ratio 15.25 Ratio (12.00-20.00); Blood Urea Nitrogen 30.5 mg/dL (9.0-27.0); Calcium 8.4 mg/dL (8.7-10.3); Carbon Dioxide 30.8 mmol/L (21.6-31.8); Chloride 102 mmol/L (96-109); Glucose 84 mg/dL (70-110); Sodium 144 mmol/L (135-145)
[2025-02-18] MEDS: ACETAMINOPHEN TAB 325 MG TAB PO PRN (09:52)
--- NOTE | 2025-02-18 10:57 | P.PN ---
Subjective HISTORY OF PRESENT ILLNESS: This is a 79-year-old female patient of Dr. Chaudhari with past medical history of cardiomyopathy with previous EF of 25%, paroxysmal atrial fibrillation on Eliquis, hypertension, dyslipidemia, valvular heart disease, overweight, chronic lower extremity edema, Parkinson's disease, diabetes mellitus type 2, chronic kidney disease, poor functional capacity. We have been asked to evaluate the patient for CHF. Patient had a recent hospitalization 01/2129 at which time she was treated for acute hypoxic respiratory failure with component of heart failure and pulmonary hypertension. Patient has had a follow-up visit with Dr. Chaudhari on 02/07/2025. She was to increase frequency Bumex 1 mg to twice daily for 1 week. Patient states that she came into the hospital due to worsening breathing. She denies chest pain or chest pressure. No dizziness no palpitations. She denies any cough or fever. No sputum production. Patient has chronic lower extremity edema. Blood pressure 158/89, heart rate 67, pulse ox 98% on 4 L nasal cannula. Patient has been started on IV Lasix 40 mg every 12 hours. Patient is seen today in the emergency center waiting for a bed on the [facility] floor. -EKG: Sinus rhythm with no acute ST changes. -Chest x-ray: Correlate for CHF. -Laboratory studies: WBC 11.2, hemoglobin 9.8, platelet count 209. Sodium 143, potassium 3.7, BUN 37 creatinine 1.42. Troponin 0.029. proBNP 2850. -Home cardiac medications: Amiodarone 100 mg daily, amlodipine 10 mg daily, Eliquis 5 mg twice daily, Bumex 1 mg twice daily, Farxiga 5 mg daily, ferrous sulfate 325 mg daily, Toprol XL 25 mg twice daily, simvastatin 10 mg at bedtime. Patient is also on levothyroxine. -Echocardiogram performed at [facility] on 11/29/2024 revealed EF of 45 to 50%. Severe pulmonary hypertension. 02/15 Patient seen and examined. Patient remains on IV Lasix 40 mg every 12 hours. She states she feels a little bit better and shortness of breath is a little bit better. She denies any chest pain or chest pressure. Blood pressure 144/75, heart rate in the 70s, pulse ox 90% on 3 L nasal cannula. Repeat blood work reveals hemoglobin 9.3. Sodium 153, potassium 3.3, BUN 29 creatinine 1.5. TSH 9.45 and normal free T41.1. Limited echocardiogram has been obtained and report is pending. 02/16/2025 Patient examined this morning at the bedside. Patient currently denies chest pain or pressure. She denies shortness of breath. Blood pressure is elevated this morning. Echocardiogram completed revealing ejection fraction 45 to 50%, severe pulm hypertension with RVSP 62 mmHg, mild global hypokinesis. Chest x-r ay reveals cardiomegaly, pulmonary vascular congestion and bilateral pleural effusions. 02/17/2025 Patient seen and examined. She still have some lower extremity edema but improving. Her blood pressure readings remain elevated. Yesterday amlodipine was resumed. She remains on IV Lasix 40 mg that has been decreased frequency to daily by pulmonary medicine blood pressure 148/76, heart rate in the 60s, pulse ox 97% on 3 L nasal cannula. Repeat blood work reveals BUN 25 creatinine 1.8. 02/18 Patient seen and examined. Creatinine increased to 2.0. Remains on IV Lasix 40 mg daily. Hydralazine 25 mg 3 times a day was added yesterday. Blood pressures predominantly in the 130s systolic. Remains in normal sinus rhythm. PHYSICAL EXAM: VITAL SIGNS: Reviewed. GENERAL: Well-developed in no acute distress. NECK: Supple. No JVD or thyromegaly LUNGS: Respirations even and unlabored. Lungs essentially clear to auscultation bilaterally. HEART: Regular rate and rhythm. S1 and S2 heard. EXTREMITIES: No clubbing or cyanosis. Peripheral pulses intact. Minimal lower extremity edema ASSESSMENT: Acute on chronic heart failure with mildly reduced EF, 45 to 50% Cardiomyopathy, 45% unknown if ischemic or nonischemic Paroxysmal atrial fibrillation currently in sinus rhythm Hypertension Dyslipidemia Severe pulmonary hypertension Parkinson's disease Chronic lower extremity edema Chronic kidney disease Hypothyroidism PLAN: Continue current home cardiac medications Continue IV Lasix 40 mg daily Daily weights, accurate intake and output, and monitoring of kidney function Hydralazine 25 mg 3 times daily was added yesterday and blood pressure better Likely transition to oral diuretics tomorrow. Monitor patient and hopeful discharge to rehab soon Objective - Vital Signs Vital signs: Vital Signs Temp 97.5 F L 02/18/25 07:05 Pulse 72 02/18/25 09:03 Resp 17 06/16/25 07:05 BP 129/71 02/18/25 07:05 Pulse Ox 98 02/18/25 08:55 FiO2 Intake & Output 02/17/25 02/18/25 02/18/25 18:59 06:59 18:59 Intake Total 930 180 Output Total 1750 600 Balance -1750 330 180 Intake: Oral 930 180 Output: Urine 1750 600 Other: Voiding Method Incontinent Incontinent External Catheter External Catheter # Voids 2 # Bowel Movements 3 1 1 - Labs CBC & Chem 7: 02/15/25 04:20 02/18/25 03:30 Labs: Abnormal Lab Results - Last 24 Hours (Table) 02/17/25 02/17/25 02/17/25 Range/Units 12:33 16:49 20:41 BUN (9.0-27.0) mg/dL Creatinine (0.6-1.5) mg/dL Est GFR (CKD-EPI) (>=60) POC Glucose (mg/dL) 132 H 218 H 242 H (70-110) mg/dL Calcium (8.7-10.3) mg/dL 02/18/25 Range/Units 03:30 BUN 30.5 H (9.0-27.0) mg/dL Creatinine 2.0 H (0.6-1.5) mg/dL Est GFR (CKD-EPI) 25 L (>=60) POC Glucose (mg/dL) (70-110) mg/dL Calcium 8.4 L (8.7-10.3) mg/dL
[2025-02-18 11:39] LABS: Glucose,Whole Blood 278 mg/dL (70-110)
--- NOTE | 2025-02-18 14:03 | US ---
EXAMINATION TYPE: US venous doppler duplex LE BI DATE OF EXAM: 02/18/2025 1:57 PM COMPARISON: NONE CLINICAL INDICATION: Female, 79 years old with history of swelling, assess for dvt; Edema. Patient on blood thinners, AFIB, Pain TECHNIQUE: The lower extremity deep venous system is examined utilizing real time linear array sonog ynes with graded compression, color doppler sonography, and spectral doppler. SIDE PERFORMED: Bilateral FINDINGS: VESSELS IMAGED: Common Femoral Vein Deep Femoral Vein Greater Saphenous Vein * Femoral Vein Popliteal Vein Small Saphenous Vein * Proximal Calf Veins (* superficial vessels) *Limitations due to patient's body habitus and limited mobility Right Leg: No evidence of DVT as visualized, Color Doppler imaging shows patency of the vessels. Spe ctral waveforms are within normal limits. Left Leg: No evidence of DVT as visualized, Color Doppler imaging shows patency of the vessels. Spec tral waveforms are within normal limits. IMPRESSION: 1. Bilateral lower extremity ultrasound negative for deep venous thrombosis [facility], , 02/18/2025 2:01 PM
--- NOTE | 2025-02-18 16:05 | P.PN ---
Subjective Progress Note Date: 02/18/25 The patient is a 79-year-old female with past medical history significant for Parkinson's disease, hypertension, hyperlipidemia, diabetes mellitus, hypothyroidism, chronic kidney disease, atrial fibrillation, heart failure, chronic oxygen dependence, frequent urinary tract infections. Patient is a poor historian. Of note, patient recently had a hospitalizations in November and again in Jan, 2025 for exacerbation of congestive heart failure. Most recent available echocardiogram from Jan, 2025 estimating a mildly reduced left ventricular ejection fraction of 45% along with severe pulmonary hypertension. Patient sent in again today from [facility] on the [place] for hypoxia and shortness of breath. Reportedly her O2 saturations were in the 30s. She was placed on a nonrebreather and gave an albuterol treatment in transit. She is seen today in the emergency department. She is a poor historian still and she has some garbled speech as well. Chest x-ray shows pulmonary vascular congestion. Currently in sinus rhythm. White count 11.2. Hemoglobin 9.8. Platelets 209. Sodium 143. Potassium 3.7. Bicarb 30. BUN 37. Creatinine 1.52. Glucose 102. proBNP 2850. Troponin 0.029. She is currently maintaining O2 saturations in the mid to upper 90s on 4 L/min per nasal cannula. She is afebrile. Hemodynamically stable. She has been initiated on Lasix 40 mg IV every 12 hours. The patient is seen today February 15, 2025 in follow-up on the regular medical floor. She is currently resting in bed. Awake and alert in no acute distress. Maintaining good O2 saturations in the 90s on 3 L/min per nasal cannula. She has been afebrile. Hemodynamically stable. White count 8.2. Hemoglobin 9.3. Platelets 219. Sodium 153. Potassium 3.3. Bicarb 29. BUN 30. Creatinine 1.5. Glucose 147. proBNP 2449. She remains on DuoNeb inhalations. Remains on IV and oral diuretics. Continued on Farxiga. Anticoagulated with Eliquis. The patient is seen today February 16, 2025 in follow-up on the regular medical floor. She is currently resting in bed. Awake and alert in no acute distress. Maintaining O2 saturations in the 90s on room air oxygen. Afebrile. Hemodynamically stable. Sodium 142. Potassium 3.1. Bicarb 34. BUN 27. Creatinine 1.76. Glucose 227. She remains on DuoNeb and elations. IV diuretics. Anticoagulated with Eliquis. The patient is seen today February 17, 2025 in follow-up on the regular medical floor. She is resting in bed. She is more awake and alert today. More conversation. She denies any worsening shortness of breath, cough or congestion. She is maintaining good O2 saturations in the 90s on 4 L/min per nasal cannula. She is afebrile. Hemodynamically stable. Sodium 144. Potassium 4.4. Bicarb 31. BUN 25. Creatinine 1.8. Glucose 146. She remains on DuoNeb inhalations. Anticoagulated with Eliquis. Continued on her home medications. Remains on IV and oral diuretics. The patient is seen today February 18, 2025 in follow-up on the regular medical floor. She is a bit less focal today compared to yesterday. She is maintaining O2 saturations up to 100% on 2 L/min per nasal cannula. Afebrile. Hemodynamically stable. Dopplers of the lower extremity negative for DVT bilaterally. Sodium 144. Potassium 4.0. Bicarb 31. BUN 31. Creatinine 2.0. Glucose 84. She remains on DuoNeb inhalations. Anticoagulated with Eliquis. Remains on cefazolin. Remains on IV and oral diuretics. No accurate intake and output. Objective - Vital Signs Vital signs: Vital Signs Temp 97.6 F 02/18/25 14:08 Pulse 76 02/18/25 15:58 Resp 16 02/18/25 14:08 BP 129/65 02/18/25 14:08 Pulse Ox 100 02/18/25 14:08 FiO2 Intake & Output 02/17/25 02/18/25 02/18/25 18:59 06:59 18:59 Intake Total 930 360 Output Total 1750 600 Balance -1750 330 360 Intake: Oral 930 360 Output: Urine 1750 600 Other: Voiding Method Incontinent Incontinent Incontinent External Catheter External Catheter External Catheter # Voids 2 # Bowel Movements 3 1 1 - Exam GENERAL EXAM: Alert, less vocal today, 79-year-old female, resting in bed, on 2 L nasal cannula, in no apparent distress. HEAD: Normocephalic. EYES: Normal reaction of pupils, equal size. NOSE: Clear with pink turbinates. THROAT: No erythema or exudates. NECK: No masses, no JVD. CHEST: No chest wall deformity. LUNGS: Equal air entry with crackles in the bilateral bases. CVS: S1 and S2 normal with no audible murmur, regular rhythm. ABDOMEN: No hepatosplenomegaly, normal bowel sounds, no guarding or rigidity. SPINE: No scoliosis or deformity SKIN: No rashes CENTRAL NERVOUS SYSTEM: No focal deficits, tone is normal in all 4 extremities. EXTREMITIES: There is 1-2+ peripheral edema. No clubbing, no cyanosis. Peripheral pulses are intact. - Labs CBC & Chem 7: 02/15/25 04:20 02/18/25 03:30 Labs: Abnormal Lab Results - Last 24 Hours (Table) 02/17/25 02/17/25 02/18/25 Range/Units 16:49 20:41 03:30 BUN 30.5 H (9.0-27.0) mg/dL Creatinine 2.0 H (0.6-1.5) mg/dL Est GFR (CKD-EPI) 25 L (>=60) POC Glucose (mg/dL) 218 H 242 H (70-110) mg/dL Calcium 8.4 L (8.7-10.3) mg/dL 02/18/25 Range/Units 11:37 BUN (9.0-27.0) mg/dL Creatinine (0.6-1.5) mg/dL Est GFR (CKD-EPI) (>=60) POC Glucose (mg/dL) 278 H (70-110) mg/dL Calcium (8.7-10.3) mg/dL Assessment and Plan Assessment: Acute exacerbation of congestive heart failure, with mild reduced ejection fraction at 45 to 50% Severe pulmonary hypertension Acute on chronic hypoxemic respiratory failure secondary to above, currently on 2 L nasal cannula Acute kidney injury secondary to ATN and cardiorenal syndrome Acute mild leukocytosis Cellulitis of the right lower extremity, initiated on Zosyn Hypertension Hyperlipidemia History of diabetes mellitus, insulin-dependent Chronic kidney disease stage IIIb Anemia of chronic disease History of paroxysmal atrial fibrillation, anticoagulated with Eliquis History of hypothyroidism History of rheumatoid arthritis History of frequent urinary tract infections History of right hip wound, cultures were positive for MRSA Obesity, with a BMI of 34.9 kg/m Plan: The patient was seen and evaluated Labs and medications reviewed Doppler of the lower extremity reviewed Negative for DVT Cellulitis of the right lower extremity Initiated on cefazolin per ID service Continue diuretics Titrate down/off FiO2 as tolerated Continue bronchodilators Anticoagulated with Eliquis Continued on her home medication Plan to return to [facility] at discharge I have personally seen and examined the patient, performed the documentation and the assessment and plan as written. Number of minutes spent on the visit: 10 Dictation was produced using [employer] dictation software. Please excuse any grammatical, word or spelling errors.
[2025-02-18 16:40] LABS: Glucose,Whole Blood 257 mg/dL (70-110)
[2025-02-18 20:19] LABS: Glucose,Whole Blood 278 mg/dL (70-110)
--- NOTE | 2025-02-19 01:41 | PN ---
PROGRESS NOTE DATE OF SERVICE: 02/18/2025 SUBJECTIVE: This is a 79-year-old woman, who was admitted with right lower extremity cellulitis, also had CHF acute exacerbation. PT and OT is also evaluating the patient closely. The patient has bilateral leg swelling. PAST MEDICAL HISTORY: Reviewed. PHYSICAL EXAMINATION: VITAL SIGNS: Pulse is 66, blood pressure 120/77, and respirations 17. HEENT: Conjunctivae normal. NECK: No jugular venous distention. CARDIOVASCULAR: S1-S2. RESPIRATIONS: Bilateral scattered rhonchi. ABDOMEN: Soft. LEGS: Bilateral leg edema. NERVOUS SYSTEM: Nonfocal. LABORATORY DATA: Reviewed. Creatinine is 2. ASSESSMENT: 1. Right lower extremity cellulitis. 2. Metabolic encephalopathy. 3. CHF acute exacerbation, ejection fraction 40%-50%. 4. Severe pulmonary hypertension. 5. Paroxysmal atrial fibrillation. 6. Parkinson's. 7. Gait dysfunction. RECOMMENDATIONS: Recommend to continue current management and continue symptomatic treatment. Continue with the bronchodilators. Continue with diuretics. PT and OT evaluation. Repeat labs. Monitor creatinine closely. Once the patient is stable, discharged back to [facility]. MMODL / IJN: [id number] /
[2025-02-19 06:17] LABS: Glucose,Whole Blood 126 mg/dL (70-110)
[2025-02-19 08:10] LABS: Basophils # (A) 0.01 X 10*3/uL (0.00-0.10); Basophils % (A) 0.2 %; Eosinophils # (A) 0.11 X 10*3/uL (0.04-0.35); HCT 31.5 % (37.2-46.3); HGB 9.2 g/dL (12.0-15.0); Lymphocytes % (A) 20.3 %; MCH 28.6 pg (27.0-32.0); MCHC 29.2 g/dL (32.0-37.0); MCV 97.8 FL (80.0-97.0); Mean Platelet Volume 9.1 FL (9.5-12.2); Monocytes # (A) 0.67 X 10*3/uL (0.20-1.00); Monocytes % (A) 12.4 %; NRBC Per 100 WBC 0 X 10*3/uL (0.00-0.01); Neutrophils # (A) 3.49 X 10*3/uL (1.80-7.70); Neutrophils % (A) 64.5 %; Platelet Count 232 X 10*3/uL (140-440); RBC 3.22 X 10*6/uL (4.10-5.20); RDW 15.3 % (11.5-14.5); WBC 5.41 X 10*3/uL (4.50-10.00)
[2025-02-19 08:43] LABS: BUN/Creat Ratio 15.05 Ratio (12.00-20.00); Blood Urea Nitrogen 31.6 mg/dL (9.0-27.0); Calcium 8.1 mg/dL (8.7-10.3); Carbon Dioxide 32.3 mmol/L (21.6-31.8); Chloride 102 mmol/L (96-109); Glucose 153 mg/dL (70-110); Potassium 3.9 mmol/L (3.5-5.5); Sodium 143 mmol/L (135-145)
[2025-02-19 11:59] LABS: Glucose,Whole Blood 293 mg/dL (70-110)
--- NOTE | 2025-02-19 13:17 | P.PN ---
Subjective Progress Note Date: 02/19/25 The patient is a 79-year-old female with past medical history significant for Parkinson's disease, hypertension, hyperlipidemia, diabetes mellitus, hypothyroidism, chronic kidney disease, atrial fibrillation, heart failure, chronic oxygen dependence, frequent urinary tract infections. Patient is a poor historian. Of note, patient recently had a hospitalizations in November and again in Jan, 2025 for exacerbation of congestive heart failure. Most recent available echocardiogram from Jan, 2025 estimating a mildly reduced left ventricular ejection fraction of 45% along with severe pulmonary hypertension. Patient sent in again today from [facility] on the [place] for hypoxia and shortness of breath. Reportedly her O2 saturations were in the 30s. She was placed on a nonrebreather and gave an albuterol treatment in transit. She is seen today in the emergency department. She is a poor historian still and she has some garbled speech as well. Chest x-ray shows pulmonary vascular congestion. Currently in sinus rhythm. White count 11.2. Hemoglobin 9.8. Platelets 209. Sodium 143. Potassium 3.7. Bicarb 30. BUN 37. Creatinine 1.52. Glucose 102. proBNP 2850. Troponin 0.029. She is currently maintaining O2 saturations in the mid to upper 90s on 4 L/min per nasal cannula. She is afebrile. Hemodynamically stable. She has been initiated on Lasix 40 mg IV every 12 hours. The patient is seen today February 15, 2025 in follow-up on the regular medical floor. She is currently resting in bed. Awake and alert in no acute distress. Maintaining good O2 saturations in the 90s on 3 L/min per nasal cannula. She has been afebrile. Hemodynamically stable. White count 8.2. Hemoglobin 9.3. Platelets 219. Sodium 153. Potassium 3.3. Bicarb 29. BUN 30. Creatinine 1.5. Glucose 147. proBNP 2449. She remains on DuoNeb inhalations. Remains on IV and oral diuretics. Continued on Farxiga. Anticoagulated with Eliquis. The patient is seen today February 16, 2025 in follow-up on the regular medical floor. She is currently resting in bed. Awake and alert in no acute distress. Maintaining O2 saturations in the 90s on room air oxygen. Afebrile. Hemodynamically stable. Sodium 142. Potassium 3.1. Bicarb 34. BUN 27. Creatinine 1.76. Glucose 227. She remains on DuoNeb and elations. IV diuretics. Anticoagulated with Eliquis. The patient is seen today February 17, 2025 in follow-up on the regular medical floor. She is resting in bed. She is more awake and alert today. More conversation. She denies any worsening shortness of breath, cough or congestion. She is maintaining good O2 saturations in the 90s on 4 L/min per nasal cannula. She is afebrile. Hemodynamically stable. Sodium 144. Potassium 4.4. Bicarb 31. BUN 25. Creatinine 1.8. Glucose 146. She remains on DuoNeb inhalations. Anticoagulated with Eliquis. Continued on her home medications. Remains on IV and oral diuretics. The patient is seen today February 18, 2025 in follow-up on the regular medical floor. She is a bit less focal today compared to yesterday. She is maintaining O2 saturations up to 100% on 2 L/min per nasal cannula. Afebrile. Hemodynamically stable. Dopplers of the lower extremity negative for DVT bilaterally. Sodium 144. Potassium 4.0. Bicarb 31. BUN 31. Creatinine 2.0. Glucose 84. She remains on DuoNeb inhalations. Anticoagulated with Eliquis. Remains on cefazolin. Remains on IV and oral diuretics. No accurate intake and output. The patient is seen today February 19, 2025 in follow-up on the regular medical floor. She is currently resting in bed. Awake and alert in no acute distress. Maintaining good O2 saturations in the 90s on room air oxygen. She is afebrile. Hemodynamically stable. White count 5.4. Hemoglobin 9.2. Platelets 232. Sodium 143. Potassium 3.9. Bicarb 32. BUN 32. Creatinine 2.1. Glucose 153. She remains on DuoNeb inhalations. Continued on IV diuretics. Anticoagulated with Eliquis. Remains on cefazolin. Objective - Vital Signs Vital signs: Vital Signs Temp 97.5 F L 02/19/25 08:21 Pulse 74 02/19/25 11:51 Resp 15 02/19/25 08:21 BP 167/65 02/19/25 08:21 Pulse Ox 94 L 02/19/25 08:21 FiO2 Intake & Output 02/18/25 02/19/25 02/19/25 18:59 06:59 18:59 Intake Total 1100 Output Total 200 500 Balance 900 -500 Intake: Oral 1100 Output: Urine 200 500 Other: Voiding Method Incontinent Incontinent Incontinent External Catheter External Catheter External Catheter # Voids 1 # Bowel Movements 1 - Exam GENERAL EXAM: Alert, 79-year-old female, resting in bed, on room air oxygen, in no apparent distress. HEAD: Normocephalic. EYES: Normal reaction of pupils, equal size. NOSE: Clear with pink turbinates. THROAT: No erythema or exudates. NECK: No masses, no JVD. CHEST: No chest wall deformity. LUNGS: Equal air entry with crackles in the bilateral bases. CVS: S1 and S2 normal with no audible murmur, regular rhythm. ABDOMEN: No hepatosplenomegaly, normal bowel sounds, no guarding or rigidity. SPINE: No scoliosis or deformity SKIN: Cellulitis of the right lower extremity. CENTRAL NERVOUS SYSTEM: No focal deficits, tone is normal in all 4 extremities. EXTREMITIES: There is 1-2+ peripheral edema. No clubbing, no cyanosis. Perip heral pulses are intact. - Labs CBC & Chem 7: 02/19/25 03:42 02/19/25 03:42 Labs: Abnormal Lab Results - Last 24 Hours (Table) 02/18/25 02/18/25 02/19/25 Range/Units 16:38 20:17 03:42 RBC (4.10-5.20) X 10*6/uL Hgb (12.0-15.0) g/dL Hct (37.2-46.3) % MCV (80.0-97.0) FL MCHC (32.0-37.0) g/dL RDW (11.5-14.5) % MPV (9.5-12.2) FL Carbon Dioxide 32.3 H (21.6-31.8) mmol/L BUN 31.6 H (9.0-27.0) mg/dL Creatinine 2.1 H (0.6-1.5) mg/dL Est GFR (CKD-EPI) 24 L (>=60) Glucose 153 H (70-110) mg/dL POC Glucose (mg/dL) 257 H 278 H (70-110) mg/dL Calcium 8.1 L (8.7-10.3) mg/dL 02/19/25 02/19/25 02/19/25 Range/Units 03:42 06:16 11:57 RBC 3.22 L (4.10-5.20) X 10*6/uL Hgb 9.2 L (12.0-15.0) g/dL Hct 31.5 L (37.2-46.3) % MCV 97.8 H (80.0-97.0) FL MCHC 29.2 L (32.0-37.0) g/dL RDW 15.3 H (11.5-14.5) % MPV 9.1 L (9.5-12.2) FL Carbon Dioxide (21.6-31.8) mmol/L BUN (9.0-27.0) mg/dL Creatinine (0.6-1.5) mg/dL Est GFR (CKD-EPI) (>=60) Glucose (70-110) mg/dL POC Glucose (mg/dL) 126 H 293 H (70-110) mg/dL Calcium (8.7-10.3) mg/dL Assessment and Plan Assessment: Acute exacerbation of congestive heart failure, with mild reduced ejection fraction at 45 to 50% Severe pulmonary hypertension Acute on chronic hypoxemic respiratory failure secondary to above, currently on 2 L nasal cannula Acute kidney injury secondary to ATN and cardiorenal syndrome Acute mild leukocytosis Cellulitis of the right lower extremity, initiated on Zosyn Hypertension Hyperlipidemia History of diabetes mellitus, insulin-dependent Chronic kidney disease stage IIIb Anemia of chronic disease History of paroxysmal atrial fibrillation, anticoagulated with Eliquis History of hypothyroidism History of rheumatoid arthritis History of frequent urinary tract infections History of right hip wound, cultures were positive for MRSA Obesity, with a BMI of 34.9 kg/m Plan: The patient was seen and evaluated Labs and medications reviewed Cellulitis of the right lower extremity Continued on cefazolin per ID service Continue diuretics Titrate down/off FiO2 as tolerated Continue bronchodilators Anticoagulated with Eliquis Plan to return to [facility] at discharge I have personally seen and examined the patient, performed the documentation and the assessment and plan as written. Number of minutes spent on the visit: 10 Dictation was produced using [employer] dictation software. Please excuse any grammatical, word or spelling errors.
--- NOTE | 2025-02-19 14:31 | P.PN ---
Subjective HISTORY OF PRESENT ILLNESS: This is a 79-year-old female patient of Dr. Chaudhari with past medical history of cardiomyopathy with previous EF of 25%, paroxysmal atrial fibrillation on Eliquis, hypertension, dyslipidemia, valvular heart disease, overweight, chronic lower extremity edema, Parkinson's disease, diabetes mellitus type 2, chronic kidney disease, poor functional capacity. We have been asked to evaluate the patient for CHF. Patient had a recent hospitalization 01/2129 at which time she was treated for acute hypoxic respiratory failure with component of heart failure and pulmonary hypertension. Patient has had a follow-up visit with Dr. Chaudhari on 02/07/2025. She was to increase frequency Bumex 1 mg to twice daily for 1 week. Patient states that she came into the hospital due to worsening breathing. She denies chest pain or chest pressure. No dizziness no palpitations. She denies any cough or fever. No sputum production. Patient has chronic lower extremity edema. Blood pressure 158/89, heart rate 67, pulse ox 98% on 4 L nasal cannula. Patient has been started on IV Lasix 40 mg every 12 hours. Patient is seen today in the emergency center waiting for a bed on the [facility] floor. -EKG: Sinus rhythm with no acute ST changes. -Chest x-ray: Correlate for CHF. -Laboratory studies: WBC 11.2, hemoglobin 9.8, platelet count 209. Sodium 143, potassium 3.7, BUN 37 creatinine 1.42. Troponin 0.029. proBNP 2850. -Home cardiac medications: Amiodarone 100 mg daily, amlodipine 10 mg daily, Eliquis 5 mg twice daily, Bumex 1 mg twice daily, Farxiga 5 mg daily, ferrous sulfate 325 mg daily, Toprol XL 25 mg twice daily, simvastatin 10 mg at bedtime. Patient is also on levothyroxine. -Echocardiogram performed at [facility] on 11/29/2024 revealed EF of 45 to 50%. Severe pulmonary hypertension. 02/15 Patient seen and examined. Patient remains on IV Lasix 40 mg every 12 hours. She states she feels a little bit better and shortness of breath is a little bit better. She denies any chest pain or chest pressure. Blood pressure 144/75, heart rate in the 70s, pulse ox 90% on 3 L nasal cannula. Repeat blood work reveals hemoglobin 9.3. Sodium 153, potassium 3.3, BUN 29 creatinine 1.5. TSH 9.45 and normal free T41.1. Limited echocardiogram has been obtained and report is pending. 02/16/2025 Patient examined this morning at the bedside. Patient currently denies chest pain or pressure. She denies shortness of breath. Blood pressure is elevated this morning. Echocardiogram completed revealing ejection fraction 45 to 50%, severe pulm hypertension with RVSP 62 mmHg, mild global hypokinesis. Chest x-r ay reveals cardiomegaly, pulmonary vascular congestion and bilateral pleural effusions. 02/18 Patient seen and examined. Creatinine increased to 2.0. Remains on IV Lasix 40 mg daily. Hydralazine 25 mg 3 times a day was added yesterday. Blood pressures predominantly in the 130s systolic. Remains in normal sinus rhythm. 02/19/2025 Patient examined this morning at the bedside. Patient denies chest pain or pressure. Denies SOB. She remains on IV Lasix. PHYSICAL EXAM: VITAL SIGNS: Reviewed. GENERAL: Well-developed in no acute distress. NECK: Supple. No JVD or thyromegaly LUNGS: Respirations even and unlabored. Lungs essentially clear to auscultation bilaterally. HEART: Regular rate and rhythm. S1 and S2 heard. EXTREMITIES: Normal range of motion. No clubbing or cyanosis. Peripheral p ulses intact. Minimal lower extremity edema, R greater than L ASSESSMENT: Acute on chronic heart failure with mildly reduced EF, 45 to 50% Cardiomyopathy, 45% unknown if ischemic or nonischemic Paroxysmal atrial fibrillation currently in sinus rhythm Hypertension Dyslipidemia Severe pulmonary hypertension Parkinson's disease Chronic lower extremity edema Chronic kidney disease Hypothyroidism PLAN: Continue current cardiac medications Continue IV Lasix for additional 24 hours Daily weights, accurate intake and output, monitoring of kidney function Further recommendations pending patient course Nurse practitioner note has been reviewed by physician. Signing provider agrees with the documented findings, assessment, and plan of care documented by RETAIL MANAGER as a scribe. Objective - Vital Signs Vital signs: Vital Signs Temp 98.7 F 02/19/25 00:53 Pulse 70 02/19/25 08:07 Resp 20 02/19/25 00:53 BP 138/67 02/19/25 00:53 Pulse Ox 99 02/19/25 00:53 FiO2 Intake & Output 02/18/25 02/19/25 02/19/25 18:59 06:59 18:59 Intake Total 1100 Output Total 200 500 Balance 900 -500 Intake: Oral 1100 Output: Urine 200 500 Other: Voiding Method Incontinent Incontinent External Catheter External Catheter # Voids 1 # Bowel Movements 1 - Labs CBC & Chem 7: 02/19/25 03:42 02/19/25 03:42 Labs: Abnormal Lab Results - Last 24 Hours (Table) 02/18/25 02/18/25 02/18/25 Range/Units 11:37 16:38 20:17 RBC (4.10-5.20) X 10*6/uL Hgb (12.0-15.0) g/dL Hct (37.2-46.3) % MCV (80.0-97.0) FL MCHC (32.0-37.0) g/dL RDW (11.5-14.5) % MPV (9.5-12.2) FL Carbon Dioxide (21.6-31.8) mmol/L BUN (9.0-27.0) mg/dL Creatinine (0.6-1.5) mg/dL Est GFR (CKD-EPI) (>=60) Glucose (70-110) mg/dL POC Glucose (mg/dL) 278 H 257 H 278 H (70-110) mg/dL Calcium (8.7-10.3) mg/dL 02/19/25 02/19/25 02/19/25 Range/Units 03:42 03:42 06:16 RBC 3.22 L (4.10-5.20) X 10*6/uL Hgb 9.2 L (12.0-15.0) g/dL Hct 31.5 L (37.2-46.3) % MCV 97.8 H (80.0-97.0) FL MCHC 29.2 L (32.0-37.0) g/dL RDW 15.3 H (11.5-14.5) % MPV 9.1 L (9.5-12.2) FL Carbon Dioxide 32.3 H (21.6-31.8) mmol/L BUN 31.6 H (9.0-27.0) mg/dL Creatinine 2.1 H (0.6-1.5) mg/dL Est GFR (CKD-EPI) 24 L (>=60) Glucose 153 H (70-110) mg/dL POC Glucose (mg/dL) 126 H (70-110) mg/dL Calcium 8.1 L (8.7-10.3) mg/dL
--- NOTE | 2025-02-19 16:53 | P.PN ---
Subjective Progress Note Date: 02/18/25 Principal diagnosis: Reason for follow-up is right leg cellulitis Patient is a 79-year-old female with a past medical history significant for heart failure diabetes mellitus hypertension hyperlipidemia pneumonia rheumatoid arthritis presenting to the hospital 3 days ago for evaluation of increasing shortness of breath, patient is being treated for CHF noticed to have right lower extremity redness concerning for cellulitis prompting this consultation. On today's evaluation that is 02/18/2025, patient has been afebrile, patient is breathing slightly comfortably and is currently on 2 L nasal cannula oxygen patient denies having any chest pain and cough, patient denies nausea vomiting or diarrhea and no abdominal pain. Patient did have a creatinine of 2.0 no CBC was done today Objective - Vital Signs Vital signs: Vital Signs Temp 97.5 F L 02/18/25 07:05 Pulse 71 02/18/25 12:40 Resp 17 02/18/25 08:47 BP 129/71 02/18/25 07:05 Pulse Ox 98 02/18/25 08:55 FiO2 Intake & Output 02/17/25 02/18/25 02/18/25 18:59 06:59 18:59 Intake Total 930 360 Output Total 1750 600 Balance -1750 330 360 Intake: Oral 930 360 Output: Urine 1750 600 Other: Voiding Method Incontinent Incontinent Incontinent External Catheter External Catheter External Catheter # Voids 2 # Bowel Movements 3 1 1 - Exam GENERAL DESCRIPTION: An elderly female lying in bed in no distress RESPIRATORY SYSTEM: Unlabored breathing , decreased breath sounds at bases HEART: S1 S2 regular rate and rhythm , ABDOMEN: Soft , no tenderness EXTREMITIES: Diffuse bilateral lower extremity right mid leg redness slightly decreased - Labs CBC & Chem 7: 02/19/25 03:42 02/19/25 03:42 Labs: Abnormal Lab Results - Last 24 Hours (Table) 02/17/25 02/17/25 02/18/25 Range/Units 16:49 20:41 03:30 BUN 30.5 H (9.0-27.0) mg/dL Creatinine 2.0 H (0.6-1.5) mg/dL Est GFR (CKD-EPI) 25 L (>=60) POC Glucose (mg/dL) 218 H 242 H (70-110) mg/dL Calcium 8.4 L (8.7-10.3) mg/dL 02/18/25 Range/Units 11:37 BUN (9.0-27.0) mg/dL Creatinine (0.6-1.5) mg/dL Est GFR (CKD-EPI) (>=60) POC Glucose (mg/dL) 278 H (70-110) mg/dL Calcium (8.7-10.3) mg/dL Assessment and Plan (1) Cellulitis of right leg Current Visit: Yes Status: Acute Code(s): L03.115 - CELLULITIS OF RIGHT LOWER LIMB SNOMED Code(s): 95344983898891440 Plan: 1patient with increasing swelling redness of right lower extremity in this patient admitted to the hospital with congestive heart failure with evidence of fluid overload with an area of cellulitis of the right leg concerning for possible streptococcal cellulitis. 2area of the redness has been marked with seem to have decreased in intensity. 3patient currently being treated with cefazolin dose adjusted to the kidney function and monitor clinical course closely Dictation was produced using [employer] dictation software. please excuse any grammatical, word or spelling errors. Time with Patient: Less than 30
--- NOTE | 2025-02-19 16:53 | P.PN ---
Subjective Progress Note Date: 02/19/25 Principal diagnosis: Reason for follow-up is right leg cellulitis Patient is a 79-year-old female with a past medical history significant for heart failure diabetes mellitus hypertension hyperlipidemia pneumonia rheumatoid arthritis presenting to the hospital 3 days ago for evaluation of increasing shortness of breath, patient is being treated for CHF noticed to have right lower extremity redness concerning for cellulitis prompting this consultation. On today's evaluation that is 02/19/2025, Patient is afebrile this morning patient denies having any chest pain shortness of breath or cough, the patient is currently 2 L nasal cannula oxygen, patient denies any abdominal pain no diarrhea no nausea no vomiting, denies pain to lower extremity. Patient white count is 5.41, creatinine is 2.1 Objective - Vital Signs Vital signs: Vital Signs Temp 97.5 F L 02/19/25 08:21 Pulse 74 02/19/25 11:51 Resp 15 02/19/25 08:21 BP 167/65 02/19/25 08:21 Pulse Ox 94 L 02/19/25 08:21 FiO2 Intake & Output 02/18/25 02/19/25 02/19/25 18:59 06:59 18:59 Intake Total 1100 Output Total 200 500 Balance 900 -500 Intake: Oral 1100 Output: Urine 200 500 Other: Voiding Method Incontinent Incontinent Incontinent External Catheter External Catheter External Catheter # Voids 1 # Bowel Movements 1 - Exam GENERAL DESCRIPTION: An elderly female lying in bed in no distress RESPIRATORY SYSTEM: Unlabored breathing , decreased breath sounds at bases HEART: S1 S2 regular rate and rhythm , ABDOMEN: Soft , no tenderness EXTREMITIES: Diffuse bilateral lower extremity right mid leg redness slightly decreased - Labs CBC & Chem 7: 02/19/25 03:42 02/19/25 03:42 Labs: Abnormal Lab Results - Last 24 Hours (Table) 02/18/25 02/18/25 02/19/25 Range/Units 16:38 20:17 03:42 RBC (4.10-5.20) X 10*6/uL Hgb (12.0-15.0) g/dL Hct (37.2-46.3) % MCV (80.0-97.0) FL MCHC (32.0-37.0) g/dL RDW (11.5-14.5) % MPV (9.5-12.2) FL Carbon Dioxide 32.3 H (21.6-31.8) mmol/L BUN 31.6 H (9.0-27.0) mg/dL Creatinine 2.1 H (0.6-1.5) mg/dL Est GFR (CKD-EPI) 24 L (>=60) Glucose 153 H (70-110) mg/dL POC Glucose (mg/dL) 257 H 278 H (70-110) mg/dL Calcium 8.1 L (8.7-10.3) mg/dL 02/19/25 02/19/25 02/19/25 Range/Units 03:42 06:16 11:57 RBC 3.22 L (4.10-5.20) X 10*6/uL Hgb 9.2 L (12.0-15.0) g/dL Hct 31.5 L (37.2-46.3) % MCV 97.8 H (80.0-97.0) FL MCHC 29.2 L (32.0-37.0) g/dL RDW 15.3 H (11.5-14.5) % MPV 9.1 L (9.5-12.2) FL Carbon Dioxide (21.6-31.8) mmol/L BUN (9.0-27.0) mg/dL Creatinine (0.6-1.5) mg/dL Est GFR (CKD-EPI) (>=60) Glucose (70-110) mg/dL POC Glucose (mg/dL) 126 H 293 H (70-110) mg/dL Calcium (8.7-10.3) mg/dL Assessment and Plan (1) Cellulitis of right leg Current Visit: Yes Status: Acute Code(s): L03.115 - CELLULITIS OF RIGHT LOWER LIMB SNOMED Code(s): 28195841668856860 Plan: 1patient with increasing swelling redness of right lower extremity in this patient admitted to the hospital with congestive heart failure with evidence of fluid overload with an area of cellulitis of the right leg concerning for possible streptococcal cellulitis. 2patient did have improvement in the redness to the right lower extremity to continue with cefazolin dose adjusted to the kidney function and monitor clinical course closely Dictation was produced using [employer] software. please excuse any grammatical, word or spelling errors. Time with Patient: Less than 30
[2025-02-19 17:10] LABS: Glucose,Whole Blood 185 mg/dL (70-110)
[2025-02-19 20:41] LABS: Glucose,Whole Blood 247 mg/dL (70-110)
--- NOTE | 2025-02-20 05:48 | P.PN ---
Subjective Progress Note Date: 02/19/25 This is a pleasant 79-year-old female who was recently admitted with CHF exacerbation along with concerns of right lower extremity cellulitis, present on admission. Patient continues with multiple consultations following including infectious disease, pulmonary, cardiology and is being continued on antibiotics. Patient did undergo a venous Doppler of the lower extremities which was negative for DVT. Recommend Cliff wraps to bilateral lower extremities and elevating while at rest. Awaiting updated PT therapy notes as patient will be returning to [facility] on discharge. Encouraged sleeping more frequently at night and staying up during the day. Patient is currently afebrile with no reports of chest pain or shortness of breath. Review of systems: Constitutional: reports of fatigue, no fever, or chills Cardiovascular: No reports of chest pain or palpitations Respiratory: No reports of worsening shortness of breath or cough GI: No reports of nausea, no reports of vomiting, no diarrhea : No reports of dysuria or retention Neurovascular: reports of generalized weakness All medications have been reviewed PHYSICAL EXAMINATION: GENERAL: The patient is lethargic although arousable, alert and oriented x2 baseline, Well developed, well nourished. Elderly appearing, obese HEENT: Pupils are round and equally reacting to light. EOMI. no scleral icterus. No conjunctival pallor. Normocephalic, atraumatic. No pharyngeal erythema. No thyromegaly. CARDIOVASCULAR: S1 and S2 muffled PULMONARY: diminished breath sounds bilaterally with no wheezing or rhonchi noted. ABDOMEN: soft. Nontender on exam. obese. non-distended, normoactive bowel sounds. No palpable organomegaly. MUSCULOSKELETAL: No joint swelling or deformity. EXTREMITIES: No cyanosis, clubbing, 2+ pitting edema bilateral lower extremities lower extremity has significantly improved NEUROLOGICAL: Gross neurological examination did not reveal any focal deficits. Diffuse weakness SKIN: No rashes. Assessment: Right lower extremity cellulitis, present on admission Metabolic consent for the, improving Acute on chronic CHF exacerbation, EF 40 to 45% History of severe pulmonary hypertension Paroxysmal fibrillation History of Parkinson's Gait dysfunction with generalized weakness and has been at [facility] outpatient Obesity with a BMI 34.9 GI prophylaxis DVT prophylaxis Full code Plan: Recommend to continue with current medications and management cardiology and infectious disease. Patient can continue on IV cefazolin per ID recommendations and will transition to oral Keflex on discharge Labs reviewed 43, potassium 3.9, BUN 31.6, creatinine 2.1. Blood sugars being monitored recommend continue with current regimen of insulin and adjust as needed Case management following and will plan on possible discharge planning to [facility] in the next 24 to 48 hours. Awaiting insurance authorization at this time Due to multiple complex medical issues, overall prognosis is guarded The impression and plan of care has been dictated by Maeve Lopez, nurse practitioner as directed. Dr. Gucci MD I have performed a history and examination and MDM of this patient, discussed the same with the dictator, and agree with the dictator's assessment and plan as written ,documented as a scribe. Based on total visit time, I have performed more than 50% of the visit. Any additional findings or plans will be noted. Objective - Vital Signs Vital signs: Vital Signs Temp 97.6 F 02/20/25 01:50 Pulse 65 02/20/25 01:50 Resp 14 02/20/25 01:50 BP 139/67 02/20/25 01:50 Pulse Ox 96 02/20/25 01:50 FiO2 Intake & Output 02/19/25 02/19/25 02/20/25 06:59 18:59 06:59 Intake Total 240 Output Total 500 700 Balance -500 -700 240 Intake: Oral 240 Output: Urine 500 700 Other: Voiding Method Incontinent Incontinent Incontinent External Catheter External Catheter External Catheter # Bowel Movements 1 - Labs CBC & Chem 7: 02/19/25 03:42 02/19/25 03:42 Labs: Abnormal Lab Results - Last 24 Hours (Table) 02/19/25 02/19/25 02/19/25 Range/Units 03:42 03:42 06:16 RBC 3.22 L (4.10-5.20) X 10*6/uL Hgb 9.2 L (12.0-15.0) g/dL Hct 31.5 L (37.2-46.3) % MCV 97.8 H (80.0-97.0) FL MCHC 29.2 L (32.0-37.0) g/dL RDW 15.3 H (11.5-14.5) % MPV 9.1 L (9.5-12.2) FL Carbon Dioxide 32.3 H (21.6-31.8) mmol/L BUN 31.6 H (9.0-27.0) mg/dL Creatinine 2.1 H (0.6-1.5) mg/dL Est GFR (CKD-EPI) 24 L (>=60) Glucose 153 H (70-110) mg/dL POC Glucose (mg/dL) 126 H (70-110) mg/dL Calcium 8.1 L (8.7-10.3) mg/dL 02/19/25 02/19/25 02/19/25 Range/Units 11:57 17:09 20:39 RBC (4.10-5.20) X 10*6/uL Hgb (12.0-15.0) g/dL Hct (37.2-46.3) % MCV (80.0-97.0) FL MCHC (32.0-37.0) g/dL RDW (11.5-14.5) % MPV (9.5-12.2) FL Carbon Dioxide (21.6-31.8) mmol/L BUN (9.0-27.0) mg/dL Creatinine (0.6-1.5) mg/dL Est GFR (CKD-EPI) (>=60) Glucose (70-110) mg/dL POC Glucose (mg/dL) 293 H 185 H 247 H (70-110) mg/dL Calcium (8.7-10.3) mg/dL
[2025-02-20 06:13] LABS: Glucose,Whole Blood 96 mg/dL (70-110)
[2025-02-20 08:27] LABS: Blood Urea Nitrogen 32.6 mg/dL (9.0-27.0); Calcium 8.1 mg/dL (8.7-10.3); Carbon Dioxide 32.2 mmol/L (21.6-31.8); Chloride 104 mmol/L (96-109); Glucose 99 mg/dL (70-110); Potassium 3.6 mmol/L (3.5-5.5); Sodium 147 mmol/L (135-145)
[2025-02-20 11:51] LABS: Glucose,Whole Blood 185 mg/dL (70-110)
--- NOTE | 2025-02-20 12:44 | P.PN ---
Subjective HISTORY OF PRESENT ILLNESS: This is a 79-year-old female patient of Dr. Chaudhari with past medical history of cardiomyopathy with previous EF of 25%, paroxysmal atrial fibrillation on Eliquis, hypertension, dyslipidemia, valvular heart disease, overweight, chronic lower extremity edema, Parkinson's disease, diabetes mellitus type 2, chronic kidney disease, poor functional capacity. We have been asked to evaluate the patient for CHF. Patient had a recent hospitalization 01/2129 at which time she was treated for acute hypoxic respiratory failure with component of heart failure and pulmonary hypertension. Patient has had a follow-up visit with Dr. Chaudhari on 02/07/2025. She was to increase frequency Bumex 1 mg to twice daily for 1 week. Patient states that she came into the hospital due to worsening breathing. She denies chest pain or chest pressure. No dizziness no palpitations. She denies any cough or fever. No sputum production. Patient has chronic lower extremity edema. Blood pressure 158/89, heart rate 67, pulse ox 98% on 4 L nasal cannula. Patient has been started on IV Lasix 40 mg every 12 hours. Patient is seen today in the emergency center waiting for a bed on the [facility] floor. -EKG: Sinus rhythm with no acute ST changes. -Chest x-ray: Correlate for CHF. -Laboratory studies: WBC 11.2, hemoglobin 9.8, platelet count 209. Sodium 143, potassium 3.7, BUN 37 creatinine 1.42. Troponin 0.029. proBNP 2850. -Home cardiac medications: Amiodarone 100 mg daily, amlodipine 10 mg daily, Eliquis 5 mg twice daily, Bumex 1 mg twice daily, Farxiga 5 mg daily, ferrous sulfate 325 mg daily, Toprol XL 25 mg twice daily, simvastatin 10 mg at bedtime. Patient is also on levothyroxine. -Echocardiogram performed at [facility] on 11/29/2024 revealed EF of 45 to 50%. Severe pulmonary hypertension. 02/15 Patient seen and examined. Patient remains on IV Lasix 40 mg every 12 hours. She states she feels a little bit better and shortness of breath is a little bit better. She denies any chest pain or chest pressure. Blood pressure 144/75, heart rate in the 70s, pulse ox 90% on 3 L nasal cannula. Repeat blood work reveals hemoglobin 9.3. Sodium 153, potassium 3.3, BUN 29 creatinine 1.5. TSH 9.45 and normal free T41.1. Limited echocardiogram has been obtained and report is pending. 02/16/2025 Patient examined this morning at the bedside. Patient currently denies chest pain or pressure. She denies shortness of breath. Blood pressure is elevated this morning. Echocardiogram completed revealing ejection fraction 45 to 50%, severe pulm hypertension with RVSP 62 mmHg, mild global hypokinesis. Chest x-r ay reveals cardiomegaly, pulmonary vascular congestion and bilateral pleural effusions. 02/18 Patient seen and examined. Creatinine increased to 2.0. Remains on IV Lasix 40 mg daily. Hydralazine 25 mg 3 times a day was added yesterday. Blood pressures predominantly in the 130s systolic. Remains in normal sinus rhythm. 02/19/2025 Patient examined this morning at the bedside. Patient denies chest pain or pressure. Denies SOB. She remains on IV Lasix. 02/20/2025 Patient examined this morning at the bedside. She is sitting up in the chair. Patient denies CP or SOB. She has been transitioned to oral lasix per pulmonary medicine. PHYSICAL EXAM: VITAL SIGNS: Reviewed. GENERAL: Well-developed in no acute distress. NECK: Supple. No JVD or thyromegaly LUNGS: Respirations even and unlabored. Lungs essentially clear to auscultation bilaterally. HEART: Regular rate and rhythm. S1 and S2 heard. EXTREMITIES: Normal range of motion. No clubbing or cyanosis. Peripheral pulses intact. Minimal lower extremity edema, R greater than L ASSESSMENT: Acute on chronic heart failure with mildly reduced EF, 45 to 50% Cardiomyopathy, 45% unknown if ischemic or nonischemic Paroxysmal atrial fibrillation currently in sinus rhythm Hypertension Dyslipidemia Severe pulmonary hypertension Parkinson's disease Chronic lower extremity edema Chronic kidney disease Hypothyroidism PLAN: Continue current cardiac medications She has been transitioned to oral lasix per pulmonary medicine Daily weights, accurate intake and output, monitoring of kidney function Patient is stable from a cardiac standpoint Further recommendations pending patient course Nurse practitioner note has been reviewed by physician. Signing provider agrees with the documented findings, assessment, and plan of care documented by CRUCIBLE PACKER as a scribe. Objective - Vital Signs Vital signs: Vital Signs Temp 98.1 F 02/20/25 07:43 Pulse 62 02/20/25 10:17 Resp 18 02/20/25 08:00 BP 155/53 02/20/25 07:43 Pulse Ox 98 02/20/25 10:03 FiO2 Intake & Output 02/19/25 02/20/25 02/20/25 18:59 06:59 18:59 Intake Total 240 180 Output Total 700 700 Balance -700 240 -520 Intake: Oral 240 180 Output: Urine 700 700 Other: Voiding Method Incontinent Incontinent Incontinent External Catheter External Catheter External Catheter # Voids 1 # Bowel Movements 1 1 - Labs CBC & Chem 7: 02/19/25 03:42 02/20/25 03:42 Labs: Abnormal Lab Results - Last 24 Hours (Table) 02/19/25 02/19/25 02/20/25 Range/Units 17:09 20:39 03:42 Sodium 147 H (135-145) mmol/L Carbon Dioxide 32.2 H (21.6-31.8) mmol/L BUN 32.6 H (9.0-27.0) mg/dL Creatinine 2.0 H (0.6-1.5) mg/dL Est GFR (CKD-EPI) 25 L (>=60) POC Glucose (mg/dL) 185 H 247 H (70-110) mg/dL Calcium 8.1 L (8.7-10.3) mg/dL 02/20/25 Range/Units 11:45 Sodium (135-145) mmol/L Carbon Dioxide (21.6-31.8) mmol/L BUN (9.0-27.0) mg/dL Creatinine (0.6-1.5) mg/dL Est GFR (CKD-EPI) (>=60) POC Glucose (mg/dL) 185 H (70-110) mg/dL Calcium (8.7-10.3) mg/dL
--- NOTE | 2025-02-20 13:59 | P.DS ---
Providers Date of admission: 02/14/25 16:43 Expected date of discharge: 02/20/25 Attending physician: Evelio Duckworth Consults: 02/14/25 12:30 Consult Physician Routine Consulting Provider: Venus Cortez Consult Reason/Comments: chf Do you want consulting provider notified?: Yes Consult Physician Routine Consulting Provider: Yusef Chaudhari Consult Reason/Comments: chf Do you want consulting provider notified?: Yes 02/17/25 15:00 Consult Physician Routine Consulting Provider: Laurence Segura Consult Reason/Comments: right leg celluitis Do you want consulting provider notified?: Yes Primary care physician: Valarie Vargas Hospital Course: Final diagnosis right lower extremity cellulitis, present on admission Metabolic encephalopathy, improving Acute on chronic CHF exacerbation, EF 40 to 45% History of severe pulmonary hypertension Paroxysmal fibrillation History of Parkinson's Gait dysfunction with generalized weakness and has been at [facility] outpatient Obesity with a BMI 34.9 GI prophylaxis DVT prophylaxis Full code Discharge disposition Patient is being discharged in a stable condition with guarded prognosis to [facility]. Patient will follow-up with Dr. Vargas in the outpatient setting upon discharge. Patient is to continue with oral Keflex for 1 week on discharge and outpatient follow-up with cardiology as well as pulmonary as scheduled. Repeat labs in 2 to 3 days of CBC, CMP, magnesium to monitor kidney functions and electrolytes. Total time taken is greater than 35 minutes. Hospital course This is a 79-year-old female who was recently admitted with CHF exacerbation along with concerns of right lower extremity cellulitis with severe edema and swelling of the lower extremities being closely monitored. Patient being evaluated by infectious disease maintained on cefazolin showing clinical improvement and will continue oral Keflex on discharge for short course. Patient continues to have extreme lower extremity edema 2+ pitting and would recommend wearing Cliff wraps going from the toes up to the knees and elevating while at rest. Patient to continue on diuretics and close outpatient follow-up with cardiology. Kidney functions elevated although stable and would recommend repeat CBC, CMP, magnesium in 2 to 3 days. Patient has been cleared by consultations with close outpatient follow-up. Please refer to consultation notes for further HPI. Currently no reports of chest pain, shortness of breath, or palpitations. Patient is afebrile. No reports of nausea or vomiting and patient is tolerating diet. Patient will be discharged to [facility] today. Guarded prognosis and high risk for readmissions given significant comorbidities and ongoing CHF. Physical exam: Gen: This is a 79-year-old female who is awake, alert and oriented x 1-2, baseline, well-developed, elderly appearing, obese HEENT: Head is atraumatic, normocephalic. Pupils equal, round. Sclerae is anicteric. NECK: Supple. No JVD. No lymphadenopathy. No thyromegaly. LUNGS: Diminished breath sounds bilaterally otherwise clear to auscultation. No wheezes or rhonchi. No intercostal retractions. HEART: S1, S2 are muffled ABDOMEN: Soft. Obese bowel sounds are present. No masses. No tenderness. EXTREMITIES: Bilateral lower extremity edema 2+ pitting along with 2+ pedal edema which is improved from admission. No calf tenderness. NEUROLOGICAL: Patient is asleep but easily arousable, awake, alert and oriented x2. Cranial nerves 2 through 12 are 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. Diffusely weak Please refer to medication reconciliation sheet for a list of medications. The impression and plan of care has been dictated by Maeve Lopez, Nurse Practitioner as directed. Dr. Gucci MD I have performed a history and examination and MDM of this patient, discussed the same with the dictator, and agree with the dictator's assessment and plan as written ,documented as a scribe. Based on total visit time, I have performed more than 50% of the visit. Patient Condition at Discharge: Stable Plan - Discharge Summary Discharge Rx Participant: No New Discharge Prescriptions: New Hydrocortisone Suppository [Anusol-Hc] 25 mg RECTAL DAILY suppositor hydrALAZINE HCL [Apresoline] 25 mg PO TID tab Cefuroxime [Ceftin] 250 mg PO BID 5 Days #10 tab Sennosides [Senokot] 8.6 mg PO AC-BID PRN 30 Days #60 tablet PRN Reason: Constipation Acetaminophen Tab [Tylenol] 650 mg PO Q6HR PRN tab PRN Reason: Mild Pain Or Fever > 100.5 Spironolactone [Aldactone] 25 mg PO DAILY tab Furosemide [Lasix] 40 mg PO DAILY tab Continue Primidone 50 mg PO TID-W/MEALS@08,12,17 Escitalopram Oxalate [Lexapro] 10 mg PO HS Levothyroxine Sodium [Synthroid] 75 mcg PO DAILY@0600 Simethicone 180 mg PO ACHS PRN PRN Reason: gas/bloating Simvastatin [Zocor] 10 mg PO HS Insulin Glargine,Hum.rec.anlog [Lantus Solostar Pen] 36 units SQ DAILY@0700 amLODIPine [Norvasc] 10 mg PO DAILY Metoprolol Succinate (ER) [Toprol XL] 25 mg PO BID tab Sennosides/Docusate Sodium [Senna-S 8.6-50 mg Tablet] 1 tab PO DAILY Ferrous Sulfate [Iron (65 MG Elemental)] 325 mg PO DAILY Ipratropium-Albuterol Nebulize [Duoneb 0.5 mg-3 mg/3 ml Soln] 3 ml INHALATION RT-QID Apixaban [Eliquis] 5 mg PO BID tab Dapagliflozin Propanediol [Farxiga] 5 mg PO DAILY tab INSULIN LISPRO (HumaLOG) [HumaLOG] See Protocol SQ TID-W/MEALS Bumetanide [BUMEX] See Taper PO DIRECTED busPIRone HCl [Buspar] 5 mg PO BID Carbidopa-Levodopa 25-100 mg [Sinemet 25-100 mg] 1 tab PO TID- W/MEALS@,, polyethylene glycoL 3350 [Miralax] 17 gm PO DAILY PRN PRN Reason: Constipation Amiodarone [Cordarone] 100 mg PO DAILY Famotidine [Pepcid] 20 mg PO DAILY@0600 Cyanocobalamin [Vitamin B-12] 500 mcg PO DAILY INSULIN LISPRO (HumaLOG) [HumaLOG] 4 units SQ BID@1200,1700 Bethanechol Chloride 50 mg PO TID@0900,1300,2100 Discontinued Acetaminophen Tab [Tylenol] 500 mg PO Q6H PRN PRN Reason: Pain Discharge Medication List Primidone 50 mg PO TID-W/MEALS@,,17 07/23/22 [History] busPIRone HCl [Buspar] 5 mg PO BID 07/23/22 [History] Carbidopa-Levodopa 25-100 mg [Sinemet 25-100 mg] 1 tab PO TID-W/MEALS@08,12,17 09/14/23 [History] Escitalopram Oxalate [Lexapro] 10 mg PO HS 09/14/23 [History] Levothyroxine Sodium [Synthroid] 75 mcg PO DAILY@0600 02/27/24 [History] Simethicone 180 mg PO ACHS PRN 02/27/24 [History] polyethylene glycoL 3350 [Miralax] 17 gm PO DAILY PRN 02/27/24 [History] Amiodarone [Cordarone] 100 mg PO DAILY 06/03/24 [History] Famotidine [Pepcid] 20 mg PO DAILY@0600 11/29/24 [History] Insulin Glargine,Hum.rec.anlog [Lantus Solostar Pen] 36 units SQ DAILY@0700 11/29/24 [History] Simvastatin [Zocor] 10 mg PO HS 11/29/24 [History] amLODIPine [Norvasc] 10 mg PO DAILY 11/29/24 [History] Metoprolol Succinate (ER) [Toprol XL] 25 mg PO BID tab 12/07/24 [Rx] Cyanocobalamin [Vitamin B-12] 500 mcg PO DAILY 01/23/25 [History] Ferrous Sulfate [Iron (65 MG Elemental)] 325 mg PO DAILY 01/23/25 [History] Ipratropium-Albuterol Nebulize [Duoneb 0.5 mg-3 mg/3 ml Soln] 3 ml INHALATION RT-QID 01/23/25 [History] Sennosides/Docusate Sodium [Senna-S 8.6-50 mg Tablet] 1 tab PO DAILY 01/23/25 [History] Apixaban [Eliquis] 5 mg PO BID tab 01/31/25 [Rx] Dapagliflozin Propanediol [Farxiga] 5 mg PO DAILY tab 01/31/25 [Rx] Bethanechol Chloride 50 mg PO TID@0900,1300,2100 02/14/25 [History] Bumetanide [BUMEX] See Taper PO DIRECTED 02/14/25 [History] INSULIN LISPRO (HumaLOG) [HumaLOG] 4 units SQ BID@1200,1700 02/14/25 [History] INSULIN LISPRO (HumaLOG) [HumaLOG] See Protocol SQ TID-W/MEALS 02/14/25 [History] Acetaminophen Tab [Tylenol] 650 mg PO Q6HR PRN tab 02/20/25 [Rx] Cefuroxime [Ceftin] 250 mg PO BID 5 Days #10 tab 02/20/25 [Rx] Furosemide [Lasix] 40 mg PO DAILY tab 02/20/25 [Rx] Hydrocortisone Suppository [Anusol-Hc] 25 mg RECTAL DAILY suppositor 02/20/25 [Rx] Sennosides [Senokot] 8.6 mg PO AC-BID PRN 30 Days #60 tablet 02/20/25 [Rx] Spironolactone [Aldactone] 25 mg PO DAILY tab 02/20/25 [Rx] hydrALAZINE HCL [Apresoline] 25 mg PO TID tab 02/20/25 [Rx] Follow up Appointment(s)/Referral(s): Valarie Vargas MD [Primary Care Provider] - 1-2 days Tony Phillips DO [Doctor of Osteopathic Medicine] - 1 Week Yusef Chaudhari MD [STAFF PHYSICIAN] - 1 Week Activity/Diet/Wound Care/Special Instructions: Patient is going to [facility] on [place] Activity as tolerated Follow-up with cardiology outpatient Continue on antibiotics until finished Follow-up with pulmonary outpatient Continue monitoring Accu-Cheks AC and at bedtime and adjust insulins acc ordingly. Blood sugars have been uncontrolled and hyperglycemic NovoLog sliding scale 0-150 equals 0 units 151-200 equals 2 units 201-250 equals 4 units 251-300 equals 6 units 301-350 equals 8 units 351-400 equals 10 units Please notify provider if blood sugar is 400 or above Continue to adjust long-acting as well Recommend aspiration precautions the head of the bed elevated 35 to 45 degrees Repeat labs in 2 to 3 days to monitor kidney functions and electrolytes, repeat CBC, CMP, magnesium Discharge Disposition: TRANSFER TO SNF/ECF
--- NOTE | 2025-02-20 14:30 | P.PN ---
Subjective Progress Note Date: 02/20/25 The patient is a 79-year-old female with past medical history significant for Parkinson's disease, hypertension, hyperlipidemia, diabetes mellitus, hypothyroidism, chronic kidney disease, atrial fibrillation, heart failure, chronic oxygen dependence, frequent urinary tract infections. Patient is a poor historian. Of note, patient recently had a hospitalizations in November and again in Jan, 2025 for exacerbation of congestive heart failure. Most recent available echocardiogram from Jan, 2025 estimating a mildly reduced left ventricular ejection fraction of 45% along with severe pulmonary hypertension. Patient sent in again today from [facility] [place] for hypoxia and shortness of breath. Reportedly her O2 saturations were in the 30s. She was placed on a nonrebreather and gave an albuterol treatment in transit. She is seen today in the emergency department. She is a poor historian still and she has some garbled speech as well. Chest x-ray shows pulmonary vascular congestion. Currently in sinus rhythm. White count 11.2. Hemoglobin 9.8. Platelets 209. Sodium 143. Potassium 3.7. Bicarb 30. BUN 37. Creatinine 1.52. Glucose 102. proBNP 2850. Troponin 0.029. She is currently maintaining O2 saturations in the mid to upper 90s on 4 L/min per nasal cannula. She is afebrile. Hemodynamically stable. She has been initiated on Lasix 40 mg IV every 12 hours. The patient is seen today February 15, 2025 in follow-up on the regular medical floor. She is currently resting in bed. Awake and alert in no acute distress. Maintaining good O2 saturations in the 90s on 3 L/min per nasal cannula. She has been afebrile. Hemodynamically stable. White count 8.2. Hemoglobin 9.3. Platelets 219. Sodium 153. Potassium 3.3. Bicarb 29. BUN 30. Creatinine 1.5. Glucose 147. proBNP 2449. She remains on DuoNeb inhalations. Remains on IV and oral diuretics. Continued on Farxiga. Anticoagulated with Eliquis. The patient is seen today February 16, 2025 in follow-up on the regular medical floor. She is currently resting in bed. Awake and alert in no acute distress. Maintaining O2 saturations in the 90s on room air oxygen. Afebrile. Hemodynamically stable. Sodium 142. Potassium 3.1. Bicarb 34. BUN 27. Creatinine 1.76. Glucose 227. She remains on DuoNeb and elations. IV diuretics. Anticoagulated with Eliquis. The patient is seen today February 17, 2025 in follow-up on the regular medical floor. She is resting in bed. She is more awake and alert today. More conversation. She denies any worsening shortness of breath, cough or congestion. She is maintaining good O2 saturations in the 90s on 4 L/min per nasal cannula. She is afebrile. Hemodynamically stable. Sodium 144. Potassium 4.4. Bicarb 31. BUN 25. Creatinine 1.8. Glucose 146. She remains on DuoNeb inhalations. Anticoagulated with Eliquis. Continued on her home medications. Remains on IV and oral diuretics. The patient is seen today February 18, 2025 in follow-up on the regular medical floor. She is a bit less focal today compared to yesterday. She is maintaining O2 saturations up to 100% on 2 L/min per nasal cannula. Afebrile. Hemodynamically stable. Dopplers of the lower extremity negative for DVT bilaterally. Sodium 144. Potassium 4.0. Bicarb 31. BUN 31. Creatinine 2.0. Glucose 84. She remains on DuoNeb inhalations. Anticoagulated with Eliquis. Remains on cefazolin. Remains on IV and oral diuretics. No accurate intake and output. The patient is seen today February 19, 2025 in follow-up on the regular medical floor. She is currently resting in bed. Awake and alert in no acute distress. Maintaining good O2 saturations in the 90s on room air oxygen. She is afebrile. Hemodynamically stable. White count 5.4. Hemoglobin 9.2. Platelets 232. Sodium 143. Potassium 3.9. Bicarb 32. BUN 32. Creatinine 2.1. Glucose 153. She remains on DuoNeb inhalations. Continued on IV diuretics. Anticoagulated with Eliquis. Remains on cefazolin. The patient is seen today February 20, 2025 in follow-up on the regular medical floor. She is currently sitting up in a chair. Awake and alert in no acute distress. Maintaining O2 saturations in the 90s on 2 L/min per nasal cannula. She has normal saline at KVO. She is continued on DuoNeb inhalations. Continue d on oral diuretics. Anticoagulated with Eliquis. Remains on cefazolin. Sodium 147. Potassium 3.6. Bicarb 32. BUN 33. Creatinine 2.0. Glucose 99. Objective - Vital Signs Vital signs: Vital Signs Temp 98.1 F 02/20/25 07:43 Pulse 79 02/20/25 13:12 Resp 18 02/20/25 08:00 BP 155/53 02/20/25 07:43 Pulse Ox 98 02/20/25 10:03 FiO2 Intake & Output 02/19/25 02/20/25 02/20/25 18:59 06:59 18:59 Intake Total 240 180 Output Total 700 700 Balance -700 240 -520 Intake: Oral 240 180 Output: Urine 700 700 Other: Voiding Method Incontinent Incontinent Incontinent External Catheter External Catheter External Catheter # Voids 1 # Bowel Movements 1 1 - Exam GENERAL EXAM: Alert, 79-year-old female, sitting up in a chair, on room air oxygen, in no apparent distress. HEAD: Normocephalic. EYES: Normal reaction of pupils, equal size. NOSE: Clear with pink turbinates. THROAT: No erythema or exudates. NECK: No masses, no JVD. CHEST: No chest wall deformity. LUNGS: Equal air entry with crackles in the bilateral bases. CVS: S1 and S2 normal with no audible murmur, regular rhythm. ABDOMEN: No hepatosplenomegaly, normal bowel sounds, no guarding or rigidity. SPINE: No scoliosis or deformity SKIN: Cellulitis of the right lower extremity. CENTRAL NERVOUS SYSTEM: No focal deficits, tone is normal in all 4 extremities. EXTREMITIES: There is 1-2+ peripheral edema. No clubbing, no cyanosis. Peripheral pulses are intact. - Labs CBC & Chem 7: 02/19/25 03:42 02/20/25 03:42 Labs: Abnormal Lab Results - Last 24 Hours (Table) 02/19/25 02/19/25 02/20/25 Range/Units 17:09 20:39 03:42 Sodium 147 H (135-145) mmol/L Carbon Dioxide 32.2 H (21.6-31.8) mmol/L BUN 32.6 H (9.0-27.0) mg/dL Creatinine 2.0 H (0.6-1.5) mg/dL Est GFR (CKD-EPI) 25 L (>=60) POC Glucose (mg/dL) 185 H 247 H (70-110) mg/dL Calcium 8.1 L (8.7-10.3) mg/dL 02/20/25 Range/Units 11:45 Sodium (135-145) mmol/L Carbon Dioxide (21.6-31.8) mmol/L BUN (9.0-27.0) mg/dL Creatinine (0.6-1.5) mg/dL Est GFR (CKD-EPI) (>=60) POC Glucose (mg/dL) 185 H (70-110) mg/dL Calcium (8.7-10.3) mg/dL Assessment and Plan Assessment: Acute exacerbation of congestive heart failure, with mild reduced ejection fraction at 45 to 50% Severe pulmonary hypertension Acute on chronic hypoxemic respiratory failure secondary to above, recovered and on room air oxygen Acute kidney injury secondary to ATN and cardiorenal syndrome Acute mild leukocytosis Cellulitis of the right lower extremity, initiated on Zosyn Hypertension Hyperlipidemia History of diabetes mellitus, insulin-dependent Chronic kidney disease stage IIIb Anemia of chronic disease History of paroxysmal atrial fibrillation, anticoagulated with Eliquis History of hypothyroidism History of rheumatoid arthritis History of frequent urinary tract infections History of right hip wound, cultures were positive for MRSA Obesity, with a BMI of 34.9 kg/m Plan: The patient was seen and evaluated Labs and medications reviewed Cellulitis of the right lower extremity Continued on cefazolin per ID service Continue diuretics Continue bronchodilators Anticoagulated with Eliquis Stable and on room air oxygen Plan to return to [facility] at discharge I have personally seen and examined the patient, performed the documentation and the assessment and plan as written. Number of minutes spent on the visit: 10 Dictation was produced using [employer] dictation software. Please excuse any grammatical, word or spelling errors.
[2025-02-20 15:26] VITALS: BP 139/67; PULSE 78; RESP 17; TEMP 97.7
[2025-02-21] MEDS ORDERED: FUROSEMIDE 40 MG TAB PO SCH (09:00)
== END 2025-02-20 16:01 | DRG 291 ==
LOC: EC 05:07 → 4SSUR 06:42 → OBSVTOIN 16:43 → 4SSUR 17:31
PROVIDERS: ADMIT Hospitalist; ATTEND Hospitalist
DX: I13.0 Hypertensive heart and chronic kidney disease with heart failure and stage 1 through stage 4 chronic kidney disease, or unspecified chronic kidney disease (principal); G93.41 Metabolic encephalopathy; I50.23 Acute on chronic systolic (congestive) heart failure; N17.0 Acute kidney failure with tubular necrosis; J96.21 Acute and chronic respiratory failure with hypoxia; L03.115 Cellulitis of right lower limb; D63.1 Anemia in chronic kidney disease; E11.22 Type 2 diabetes mellitus with diabetic chronic kidney disease; M06.9 Rheumatoid arthritis, unspecified; I27.20 Pulmonary hypertension, unspecified; G20.A1 Parkinson's disease without dyskinesia, without mention of fluctuations; N18.32 Chronic kidney disease, stage 3b; E66.9 Obesity, unspecified; E03.9 Hypothyroidism, unspecified; I42.9 Cardiomyopathy, unspecified; I48.0 Paroxysmal atrial fibrillation; Z79.4 Long term (current) use of insulin; Z68.34 Body mass index [BMI] 34.0-34.9, adult; R53.1 Weakness; R26.9 Unspecified abnormalities of gait and mobility; E78.5 Hyperlipidemia, unspecified; Z79.01 Long term (current) use of anticoagulants; Z79.890 Hormone replacement therapy; Z79.84 Long term (current) use of oral hypoglycemic drugs; Z79.899 Other long term (current) drug therapy; Z86.14 Personal history of Methicillin resistant Staphylococcus aureus infection; Z87.01 Personal history of pneumonia (recurrent); Z87.440 Personal history of urinary (tract) infections; Z87.442 Personal history of urinary calculi; Z90.710 Acquired absence of both cervix and uterus; Z99.81 Dependence on supplemental oxygen; Z88.8 Allergy status to other drugs, medicaments and biological substances
CPT/HCPCS: 36415; 71045; 80048; 80053; 83735; 83880; 84132; 84439; 84443; 84484; 85025; 85610; 85730; 93005; 93308; 93970; 94640; 94760; 96374; 99285